=== PATIENT | female | born 1985 | race Caucasian/White ===

== ENCOUNTER 2023-01-13 10:00 | Outpatient (OUT) | payer MEDICAID, SELFPAY | END 2023-01-13 10:01 | disposition home or self-care (01) | LOC: PST 10:00 | DX: Z01.818 Encounter for other preprocedural examination (principal); R10.2 Pelvic and perineal pain; N93.9 Abnormal uterine and vaginal bleeding, unspecified; N83.9 Noninflammatory disorder of ovary, fallopian tube and broad ligament, unspecified ==

== ENCOUNTER → 2023-01-14 | Outpatient (OUT) | payer MEDICAID, SELFPAY ==
[2023-01-15 02:29] LABS: Progesterone 6.6 ng/mL (.)
== END ==
LOC: LAB 12:03
PROVIDERS: Visit Provider Obstetrics & Gynecology
DX: N92.1 Excessive and frequent menstruation with irregular cycle (principal)
CPT/HCPCS: 36415; 84144

== ENCOUNTER 2023-03-03 12:19 | Outpatient (OUT) | payer MEDICAID, SELFPAY | END 2023-03-03 12:20 | disposition home or self-care (01) | LOC: LAB 12:20 | PROVIDERS: Visit Provider Obstetrics & Gynecology | DX: N97.0 Female infertility associated with anovulation (principal); Z86.2 Personal history of diseases of the blood and blood-forming organs and certain disorders involving the immune mechanism | CPT/HCPCS: 36415; 82728 ==

== ENCOUNTER 2023-03-12 09:44 | Outpatient (OUT) | payer MEDICAID, SELFPAY | END 2023-03-12 09:45 | disposition home or self-care (01) | PROVIDERS: Visit Provider Obstetrics & Gynecology | DX: N92.1 Excessive and frequent menstruation with irregular cycle (principal) | CPT/HCPCS: 36415; 84144 ==

== ENCOUNTER 2023-03-15 10:49 | Outpatient (OUT) | payer MEDICAID, SELFPAY | END 2023-03-15 10:50 | disposition home or self-care (01) | LOC: PST 10:49 | PROVIDERS: Visit Provider Obstetrics & Gynecology | DX: Z01.818 Encounter for other preprocedural examination (principal); R10.2 Pelvic and perineal pain; N83.9 Noninflammatory disorder of ovary, fallopian tube and broad ligament, unspecified; N93.9 Abnormal uterine and vaginal bleeding, unspecified ==

== ENCOUNTER 2023-03-22 06:15 | Day surgery (SDC) | payer MEDICAID, SELFPAY ==
[2023-03-15 11:15] VITALS: BP 112/82; PULSE 70; RESP 18; TEMP 36.6; O2SAT 98; BMI 35.9
[2023-03-22] VITALS (13 sets, daily range): BP systolic 106–124; BP diastolic 70–86; PULSE 75–108; RESP 6–26; TEMP 36.1; O2SAT 83–97; BMI 35.3
[2023-03-22 06:23] LABS: Basophils Percent Auto 0.2 % (0.2-2.0); Eosinophils Absolute Auto 0.1 10^3/uL (0.0-0.7); Eosinophils Percent Auto 0.9 % (0.9-7.0); Hematocrit 39.3 % (36.0-48.0); Hemoglobin 12.9 g/dL (12.0-16.0); Immature Granulocytes Abs Auto 0.01 10^3/uL (0.00-0.03); Immature Granulocytes Pct Auto 0.2 % (0.0-0.5); Lymphocytes Absolute Auto 1.9 10^3/uL (1.2-3.8); Lymphocytes Percent Auto 32.7 % (20.5-60.0); Mean Corpuscular HGB Conc 32.8 g/dL (29.9-35.2); Mean Corpuscular Hemoglobin 29.7 pg (26.7-34.0); Mean Corpuscular Volume 90.6 fL (81.0-99.0); Mean Platelet Volume 10.1 fL (9.5-13.5); Monocytes Absolute Auto 0.4 10^3/uL (0.3-0.8); Monocytes Percent Auto 6.5 % (1.7-12.0); Neutrophils Absolute Auto 3.5 10^3/uL (1.4-6.5); Neutrophils Percent Auto 59.5 % (43.0-75.0); Platelet Count 206 10^3/uL (150-450); Red Blood Count 4.34 10^6/uL (4.20-5.40); Red Cell Distribution Width 13.1 % (11.0-15.0); White Blood Count 5.8 10^3/uL (4.0-11.0)
[2023-03-22 06:46] LABS: HCG Quantitative <1 mIU/mL
[2023-03-22] MEDS: LACTATED RINGER'S SOLUTION 1,000 ML 50 ML IV (06:56)
[2023-03-22] MEDS: METHYLENE BLUE 50 MG/10 ML AMPULE INJ (08:17)
--- NOTE | 2023-03-22 08:22 | PM.ONB ---
Brief Operative Note Date of procedure: 03/22/23 Pre-op diagnosis: pelvic pain, tubal dysfunction Post-op diagnosis: same as pre-op Procedure: NAME OF PROCEDURE: [diagnostic laparoscopy with chrompertubation ] PROCEDURE: The patient was taken back to the Operating Room where she was placed in dorsal lithotomy position after given general anesthesia. The patient was prepped and draped in normal sterile fashion. A humi manipulator was placed into the patients uterus. Attention was turned to the patient's abdomen, where a small umbilical incision was made. The fascia was tented using Breana clamps and the fascia was entered sharply. Confirmation of intraabdominal placement of the 10 mm port was confirmed under direct visualization using a laparoscope. The patient's abdomen was then insufflated using CO2 gas with approximately 4 liters. A second port was placed left laterally, this was done under direct visualization with a 5 mm port. Survey of the patient's abdomen demonstrated normal liver and gallbladder. Survey of the patient's pelvic anatomy demonstrated normal appearing ovaries and tubes as well as normal appearing uterus. No endometrial implants could be noted, no evidence of any pelvic disease was seen, normal appearing pelvic cavity. Chromopertubation was performed with spillage of dye from both tubes after debri was seen coming out of both ends. All instruments were removed from the patient's abdomen. Lt ovarian cystotomy performed using monopolar scissors. The patient's abdomen was deinsufflated of CO2 gas. The patient tolerated the procedure well. humi manipulator was removed from the patient's vagina. The patient's infraumbilical fascia was closed using #0 Vicryl on a GI needle. The patient's skin was closed laterally and infraumbilically using 4-0 Vicryl. The patient tolerated the procedure well. Sponge, lap and needle counts were correct x 2. The patient was taken to Recovery Room in stable condition.Clips from prior surgery noted adhered to bladder, the clips were grasped and gently removed Anesthesia: MIMA Surgeon: Kannan Vega [employer] Officer: Jannie Serra Estimated blood loss (mL): 5 Pathology: none sent Condition: stable Disposition: PACU
[2023-03-22] MEDS: HYDROCODONE/ACETAMINOPHEN 5-325 MG TABLET 1 TAB PO (08:44)
[2023-03-22] MEDS: HYDROMORPHONE HCL 1 MG/ML CARTRIDGE INJ (08:58)
[2023-03-22] MEDS: PROMETHAZINE HCL 25 MG TABLET PO (10:30)
== END 2023-03-22 10:47 | disposition home or self-care (01) ==
PROVIDERS: Visit Provider Obstetrics & Gynecology
PROC: (CPT 840; principal; 2023-03-22 07:30)
DX: R10.2 Pelvic and perineal pain (principal); N83.9 Noninflammatory disorder of ovary, fallopian tube and broad ligament, unspecified; N92.1 Excessive and frequent menstruation with irregular cycle; N93.9 Abnormal uterine and vaginal bleeding, unspecified; N94.6 Dysmenorrhea, unspecified; F32.A Depression, unspecified; F41.1 Generalized anxiety disorder; Z86.2 Personal history of diseases of the blood and blood-forming organs and certain disorders involving the immune mechanism; Z79.899 Other long term (current) drug therapy; Z79.82 Long term (current) use of aspirin
CPT/HCPCS: 49320; 58350; 36415; 84702; 85025; J1170; J2704

== ENCOUNTER 2023-05-03 11:57 | Outpatient (OUT) | payer MEDICAID, SELFPAY ==
[2023-05-04 09:10] LABS: Progesterone 12.5 ng/mL (.)
== END 2023-05-03 11:58 | disposition home or self-care (01) ==
LOC: LAB 11:58
PROVIDERS: Visit Provider Obstetrics & Gynecology
DX: N92.1 Excessive and frequent menstruation with irregular cycle (principal)
CPT/HCPCS: 36415; 84144

== ENCOUNTER 2023-05-31 16:27 | Outpatient (OUT) | payer MEDICAID, SELFPAY ==
[2023-06-02 10:11] LABS: Progesterone 13.6 ng/mL (.)
== END 2023-05-31 16:28 | disposition home or self-care (01) ==
LOC: LAB 16:27
PROVIDERS: Visit Provider Obstetrics & Gynecology
DX: N92.1 Excessive and frequent menstruation with irregular cycle (principal)
CPT/HCPCS: 36415; 84144

== ENCOUNTER 2023-07-03 10:09 | Outpatient (OUT) | payer MEDICAID, SELFPAY ==
[2023-07-04 07:07] LABS: Progesterone 3.1 ng/mL (.)
== END 2023-07-03 10:10 | disposition home or self-care (01) ==
LOC: LAB 10:12
PROVIDERS: Visit Provider Obstetrics & Gynecology
DX: N97.0 Female infertility associated with anovulation (principal); N92.1 Excessive and frequent menstruation with irregular cycle
CPT/HCPCS: 36415; 84144

== ENCOUNTER 2023-07-26 17:12 | Outpatient (OUT) | payer MEDICAID, SELFPAY | END 2023-07-26 17:13 | disposition home or self-care (01) | LOC: LAB 17:14 | PROVIDERS: PCP Family Medicine; Visit Provider Obstetrics & Gynecology | DX: N92.1 Excessive and frequent menstruation with irregular cycle (principal) | CPT/HCPCS: 36415; 84144 ==

== ENCOUNTER 2023-08-05 13:38 | Outpatient (RCR) | payer MEDICAID, SELFPAY ==
--- OUTSIDE RECORDS SUMMARY | 2023-08-05 13:44 | XMS_ITS | CCD ---
Author Name Unknown Address [address] [place] [address] Organization [facility] Care Team Providers [employer] Libr[employer] Name Role Phone Gloria Hayden Unavailable RAY ., DR KUMARI Admitting Unavailable HOY ., DR KUMARI Attending Unavailable HOY ., DR KUMARI Consulting Unavailable HOY ., DR KUMARI Primary Care Unavailable LAZARO ., DR TOUSSAINT Admitting Unavailable LAZARO ., DR TOUSSAINT Consulting Unavailable HOY ., DR KUMARI Primary Care Unavailable LAZARO ., DR TOUSSAINT Attending Unavailable LAZARO ., DR TOUSSAINT Admitting Unavailable HOY ., DR KUMARI Primary Care Unavailable LAZARO ., DR TOUSSAINT Attending Unavailable LAZARO ., DR TOUSSAINT Consulting Unavailable REQUEST, DR NONE LISTED Primary Care Unavaila ble LAZARO ., DR TOUSSAINT Attending Unavailable LAZARO ., DR TOUSSAINT Admitting Unavailable LAZARO ., DR TOUSSAINT Admitting Unavailable LAZARO ., DR TOUSSAINT Consulting Unavailable HOY ., DR KUMARI Primary Care Unavailable LAZARO ., DR TOUSSAINT Attending Unavailable HOY ., DR KUMARI Primary Care Unavailable PAY ., DR JIMENEZ Attending Unavailable PAY ., DR JIMENEZ Admitting Unavailable PAY ., DR JIMENEZ Consulting Unavailable LAZARO ., DR TOUSSAINT Attending Unavailable HOY ., DR KUMARI Primary Care Unavailable LAZARO ., DR TOUSSAINT Admitting Unavailable LAZARO ., DR TOUSSAINT Consulting Unavailable LAZARO ., DR TOUSSAINT Attending Unavailable HOY ., DR KUMARI Primary Care Unavailable LAZARO ., DR TOUSSAINT Admitting Unavailable LAZARO ., DR TOUSSAINT Consulting Unavailable REQUEST, DR NONE LISTED Primary Care Unavaila ble LAZARO ., DR TOUSSAINT Attending Unavailable LAZARO ., DR TOUSSAINT Admitting Unavailable RENE MEYERS Consulting Unavailable HOY ., DR KUMARI Admitting Unavailable HOY ., DR KUMARI Attending Unavailable HOY ., DR KUMARI Primary Care Unavailable LAZARO ., DR TOUSSAINT Consulting Unavailable REQUEST, DR NONE LISTED Primary Care Unavaila ble LAZARO ., DR TOUSSAINT Attending Unavailable LAZARO ., DR TOUSSAINT Admitting Unavailable LAZARO ., DR TOUSSAINT Consulting Unavailable REQUEST, DR NONE LISTED Primary Care Unavaila ble LAZARO ., DR TOUSSAINT Attending Unavailable LAZARO ., DR TOUSSAINT Admitting Unavailable LAZARO ., DR TOUSSAINT Consulting Unavailable HOY ., DR KUMARI Primary Care Unavailable LAZARO ., DR TOUSSAINT Admitting Unavailable LAZARO ., DR TOUSSAINT Attending Unavailable LAZARO ., DR TOUSSAINT Admitting Unavailable LAZARO ., DR TOUSSAINT Consulting Unavailable HOY ., DR KUMARI Primary Care Unavailable LAZARO ., DR TOUSSAINT Attending Unavailable LAZARO ., DR TOUSSAINT Attending Unavailable HOY ., DR KUMARI Primary Care Unavailable LAZARO ., DR TOUSSAINT Admitting Unavailable LAZARO ., DR TOUSSAINT Admitting Unavailable HOY ., DR KUMARI Primary Care Unavailable [place], DR PEREZ Luther Consulting Unavailable LAZARO ., DR TOUSSAINT Attending Unavailable LAZARO ., DR TOUSSAINT Consulting Unavailable HOY ., DR KUMARI Primary Care Unavailable [place], DR PEREZ Luther Consulting Unavailable LAZARO ., DR TOUSSAINT Admitting Unavailable LAZARO ., DR TOUSSAINT Attending Unavailable LAZARO ., DR TOUSSAINT Consulting Unavailable LAZARO ., DR TOUSSAINT Admitting Unavailable HOY ., DR KUMARI Primary Care Unavailable [place], DR PEREZ Luther Consulting Unavailable LAZARO ., DR TOUSSAINT Attending Unavailable LAZARO ., DR TOUSSAINT Consulting Unavailable MONIQUE COLEMAN Consulting Unavaila ble SURESH, MONIQUE ONEILL Consulting Unava CLARA Linton Consulting Unavailable LAZARO ., DR TOUSSAINT Admitting Unavailable LAZARO ., DR TOUSSAINT Consulting Unavailable HOY ., DR KUMARI Primary Care Unavailable LAZARO ., DR TOUSSAINT Attending Unavailable LAZARO ., DR TOUSSAINT Consulting Unavailable HOY ., DR KUMARI Primary Care Unavailable LAZARO ., DR TOUSSAINT Attending Unavailable LAZARO ., DR TOUSSAINT Admitting Unavailable NORBERT VEGA Attending Unavailable Allergies Allergy Classification Reported Allergen(s) Allergy Type Date of Onset Reaction(s) Facility (1 source) Penicillin G Drug Allergy throat swelling [facility]map Other (1 source) Cefaclor Drug Allergy [facility] (2 sources) Penicillins Drug allergy (disorder) 6 [facility] Medications Current Medications Medication Drug Class(es) Dates Sig (Normalized) Sig (Original) aspirin 81 mg delayed release oral tablet (1 source) Platelet Aggregation Inhibitor, Nonsteroidal Anti-inflammatory Drug take 1 tablet by mouth every twenty-four hours Aspirin 81 81 MG 1 tablet Orally Once a day Active cholecalciferol 0.05 mg oral tablet (1 source) Vitamin D take 1 tablet by mouth every twenty-four hours Vitamin D3 50 MCG (1999) 1 tablet Orally Once a day Active DHEA 50 MG (1 source) DHEA 50 MG take 2 Orally daily Active folic acid 0.4 mg oral tablet (1 source) take 1 tablet by mouth every twenty-four hours Folate 400 MCG 1 tablet Orally Once a day Active Iron (1 source) take 1 tablet by mouth once daily Iron (Ferrous Sulfate) 325 MG 1 tablet Orally Once a day Active metFORMIN hydrochloride 500 mg oral tablet (1 source) Biguanide take 1 tablet by mouth every twenty-four hours metFORMIN HCl 500 MG 1 tablet with a meal Orally Once a day Active Multivitamin preparation (1 source) take 1 tablet by mouth once daily Multivitamin - 1 tablet Orally Once a day Active predniSONE 20 mg oral tablet (1 source) Start: 11-20-2022 take 1 tablet by mouth every twelve hours predniSONE 20 MG 1 tablet Orally bid for 5 day(s) Nov, Active (1 source) Active simvastatin 40 mg oral tablet (1 source) HMG-CoA Reductase Inhibitor take 1 tablet by mouth every twenty-four hours Simvastatin 40 MG 1 tablet in the evening Orally Once a day Active Vitamin C 500 MG (1 source) Vitamin C 500 MG as directed Orally Active Problems Active Problems Problem Classification Problem Date Documented Da te Episodic/Chronic Allergic reactions (1 source) Unspecified contact dermatitis, unspecified cause Episodic Menstrual disorders (8 sources) Excessive and frequent menstruation with irregular cycle; Translations: [Irregular menstruation, unspecified] Onset: 06-22-2022 Chronic Mood disorders (1 source) Major depressive disorder, single episode, unspecified; Translations: [CONCEPCION DEPRESS D/O SINGLE EPIS UNS] Onset: 05-26-2022 Chronic Other female genital disorders (4 sources) Abnormal uterine and vaginal bleeding, unspecified; Translations: [ABNORMAL UTERINE VAGINAL BLEED UNS] Onset: 02-18-2022 Chronic Other screening for suspected conditions (not mental disorders or infectious disease) (1 source) Abnormal findings on diagnostic imaging of other specified body structures; Translations: [ABNORML FIND DX IMG OT BODY STRUC] Onset: 11-22-2022 Chronic Ovarian cyst (2 sources) Unspecified ovarian cyst, left side; Translations: [Other ovarian cyst, left side] Onset: 02-19-2022 Episodic Unclassified (1 source) CONTACT W/AND (SUSP) EXPOS COVID-19; Translations: [CONTACT W/AND (SUSP) EXPOS COVID-19] Onset: 05-11-2022 Past or Other Problems Problem Classification Problem Date Documented Da te Episodic/Chronic Abdominal pain (4 sources) Unspecified abdominal pain; Translations: [UNSPECIFIED ABDOMINAL PAIN] Onset: 05-04-2022 Episodic Contraceptive and procreative management (4 sources) Encounter for procreative management, unspecified; Translations: [ENC PROCREATIVE MANAGEMENT UNS] Onset: 08-28-2022 Episodic Deficiency and other anemia (4 sources) Anemia, unspecified; Translations: [ANEMIA UNSPECIFIED] Onset: 08-12-2022 Episodic Diabetes mellitus without complication (1 source) Other abnormal glucose; Translations: [OTHER ABNORMAL GLUCOSE] Onset: 08-16-2022 Episodic Other complications of (5 sources) Blighted ovum and nonhydatidiform mole; Translations: [BLIGHTED OVUM NONHYDATIDIFORM MOLE] Onset: 05-08-2022 Episodic Other complications of (1 source) Other specified related conditions, first trimester; Translations: [OTH SPEC PREG RELATED COND 1ST TRI] Onset: 05-05-2022 Episodic Other female genital disorders (1 source) Noninflammatory disorder of uterus, unspecified; Translations: [NONINFLAMMATORY DISORDER UTERUS UNS] Onset: 05-26-2022 Episodic Other gastrointestinal disorders (1 source) Constipation, unspecified; Translations: [CONSTIPATION UNSPECIFIED] Onset: 05-05-2022 Episodic Residual codes; unclassified (4 sources) Other specified postprocedural states; Translations: [OTH SPECIFIED POSTPROCEDURAL STATES] Onset: 05-14-2022 Episodic Residual codes; unclassified (1 source) 8 weeks gestation of ; Translations: [8 WEEKS GESTATION OF ] Onset: 05-05-2022 Episodic Spontaneous (1 source) Incomplete spontaneous without complication; Translations: [INCOMPL SPONT AB W/O COMPLICATION] Onset: 05-26-2022 Episodic Results Test Name Value Interpretation Reference Range Facility PROGESTERONEon 12-19-2022 Progesterone 9.6 ng/mL Normal [facility] Comment on above: Result Comment: Foll icular phase 0.1 - 0.9 Luteal phase 1.8 - 23.9 Ovulation phase 0.1 - 12.0 First trimester 11.0 - 44.3 Second trimester 25.4 - 83.3 Third trimester 58.7 - 214.0 Postmenopausal 0.0 - 0.1 Performed By: #### P DAXA #### [facility] [address] [place] [address] Dr. Josie Sanchez PROGESTERONEon 11-19-2022 Progesterone 6.3 ng/mL Normal [facility] Comment on above: Result Comment: Foll icular phase 0.1 - 0.9 Luteal phase 1.8 - 23.9 Ovulation phase 0.1 - 12.0 First trimester 11.0 - 44.3 Second trimester 25.4 - 83.3 Third trimester 58.7 - 214.0 Postmenopausal 0.0 - 0.1 Performed By: #### P DAXA #### [facility] [address] [place] [address] Dr. Josie Sanchez PREG QUANT HCGon 11-18-2022 HCG QUANT <1 Normal [facility] Comment on above: Performed By: #### P REGQNT #### [facility] [address] [place] [address] Dr. Josie Sanchez HCG RANGE SEE BELOW Normal [facility] Comment on above: Result Comment: 5-50 0.2-1 WEEK 50-500 1-2 WEEKS 100-5,000 2-3 WEEKS 500-10,000 3-4 WEEKS 1,000-50,000 4-5 WEEKS 10,000-100,000 5-6 WEEKS 15,000-200,000 6-8 WEEKS 10,000-100,000 2-3 MONTHS Performed By: #### P REGQNT #### [facility] [address] [place], [place] [id number] Dr. Josie Sanchez US PELVIS AND TRANSVAGon US PELVIS AND TRANSVAG EXAM: US PELVIS A ND TRANSVAG HISTORY: Excessive menstruation with irregular cycle COMPARISON: None. TECHNIQUE: Pelvic ultrasound is performed. Multiple grayscale and color images are submitted for review. FINDINGS: The uterus measures 10.9 x 6.2 x 2.9 cm and demonstrates normal echotexture. The endometrium appears thickened, and measures 14 mm thickness. The right ovary measures 1.7 x 1.9 x 2.2 cm and demonstrates normal morphology. Normal blood flow is seen in the right ovary. The left ovary measures 3.8 x 2.4 x 2.4 cm and demonstrates normal blood flow. An approximately 2.3 x 2.6 x 2.3 cm hypoechoic area is seen in the left ovary with internal anechoic/cystic component with sonographic imaging characteristics similar to that of a yolk sac as noted by lead medical technologist. No significant free pelvic fluid is seen. IMPRESSION: Hypoechoic structure with internal anechoic structure is seen in the left ovary, as well as thickened endometrium. Ectopic cannot be excluded. Clinical, laboratory and possible follow-up sonographic correlation is recommended. This report was placed in the stat call folder for immediate notification of the referring clinician. Electronically authenticated by: RENE MEYERS Date: 2022-11-16 18:09 Normal [facility] DHEA SERUMon 11-11-2022 Dehydroepiandrosterone (DHEA) 335 ng/dL Normal 31-701 [facility] Comment on above: Performed By: #### RILEY VALERIO #### [facility] [address] [place] [id number] [address] Josie Sanchez DHEA-SULFATEon 11-10-2022 DHEA-Sulfate 251.0 ug/dL Normal 57.3-279.2 [facility] Comment on above: Performed By: #### P REGQNT #### [facility] [address] [place], [place] [id number] Dr. Josie Sanchez ESTRADIOLon 11-10-2022 Estradiol 66.1 pg/mL Normal [facility] Comment on above: Result Comment: Adul t Female: Follicular phase 12.5 - 166.0 Ovulation phase 85.8 - 498.0 Luteal phase 43.8 - 211.0 Postmenopausal <6.0 - 54.7 1st trimester 215.0 - >4300.0 [facility] ECLIA methodology Performed By: #### RILEY VALERIO #### [facility] [address] [place] [address] Dr. Josie Sanchez FSHon 11-10-2022 FSH 6.9 mIU/mL Normal [facility] Comment on above: Result Comment: Adul t Female: Follicular phase 3.5 - 12.5 Ovulation phase 4.7 - 21.5 Luteal phase 1.7 - 7.7 Postmenopausal 25.8 - 134.8 Performed By: #### P REGQNT #### [facility] [address] [place] [address] Dr. Josie Sanchez LUTEINIZING HORMONE (LH)on 0 11-10-2022 LH 9.9 mIU/mL Normal [facility] Comment on above: Result Comment: Adul t Female: Follicular phase 2.4 - 12.6 Ovulation phase 14.0 - 95.6 Luteal phase 1.0 - 11.4 Postmenopausal 7.7 - 58.5 Performed By: #### RILEY VALERIO #### [facility] [address] [place] [address] Dr. Josie Sanchez CBC AUTO DIFFon 11-09-2022 BASO # 0.0 103/ul Normal 0.0-0.1 [facility] Comment on above: Performed By: #### KIAN VALERIORO #### [facility] [address] [place] [address] Dr. Josie Sanchez Basophils/100 WBC (Bld) 0.3 % Normal 0.2-2.0 [facility] Comment on above: Performed By: #### ROBERT VALERIOICRO #### [facility] [address] [place] [address] Dr. Josie Sanchez EO # 0.0 103/ul Normal 0.0-0.7 [facility] Comment on above: Performed By: #### RILEY VALERIO #### [facility] [address] [place] [address] Dr. Josie Sanchez Eosinophils/100 WBC (Bld) 0.5 % Critically low 0.9-7. 0 [facility] Comment on above: Performed By: #### RILEY VALERIO #### [facility] [address] [place] [address] Dr. Josie Sanchez Erythrocyte distribution width (RBC) [Ratio] 13.2 % Normal 11.0-15.0 [facility] Comment on above: Performed By: #### RILEY VALERIO #### [facility] [address] [place] [address] Dr. Josie Sanchez Hematocrit (Bld) [Volume fraction] 41.8 % Normal 36.0-48.0 [facility] Comment on above: Performed By: #### RILEY VALERIO #### [facility] [address] [place] [address] Dr. Josie Sanchez Hemoglobin (Bld) [Mass/Vol] 13.7 g/dL Normal 12.0-16.0 [facility] Comment on above: Performed By: #### RILEY VALERIO #### [facility] [address] [place] [address] Dr. Josie Sanchez IG # 0.02 10e3/ul Normal 0.00-0.03 [facility] Comment on above: Performed By: #### RILEY VALERIO #### [facility] [address] [place] [address] Dr. Josie Sanchez IG % 0.3 % Normal 0.0-0.5 [facility] Comment on above: Performed By: #### RILYE VALERIO #### [facility] [address] [place] [address] Dr. Josie Sanchez LYMPH # 1.2 103/ul Normal 1.2-3.8 [facility] Comment on above: Performed By: #### RILEY VALERIO #### [facility] [address] [place] [address] Dr. Josie Sanchez Lymphocytes/100 WBC (Bld) 18.4 % Critically low 20.5-6 0.0 [facility] Comment on above: Performed By: #### E MIGUELANGEL, UMICRO #### [facility] [address] [place] [address] Dr. Josie Sanchez MANUAL DIFF REQ NO Normal [facility] Comment on above: Performed By: #### E MIGUELANGEL, UMICRO #### [facility] [address] [place] [address] Dr. Josie Sanchez MCH (RBC) [Entitic mass] 29.5 pg Normal 26.7-34.0 [facility] Comment on above: Performed By: #### E MIGUELANGEL, UMICRO #### [facility] [address] [place] [address] Dr. Josie Sanchez MCHC (RBC) [Mass/Vol] 32.8 g/dL Normal 29.9-35.2 [facility] Comment on above: Performed By: #### Clyde MEANS, UMICRO #### [facility] [address] [place] [address] Dr. Josie Sanchez MCV (RBC) [Entitic vol] 89.9 fL Normal 81.0-99.0 [facility] Comment on above: Performed By: #### Clyde MEANS, UMICRO #### [facility] [address] [place] [address] Dr. Josie Sanchez MONO # 0.3 103/ul Normal 0.3-0.8 [facility] Comment on above: Performed By: #### E MIGUELANGEL, UMICRO #### [facility] [address] [place] [address] Dr. Josie Sanchez Monocytes/100 WBC (Bld) 5.1 % Normal 1.7-12.0 [facility] Comment on above: Performed By: #### E MIGUELANGEL, UMICRO #### [facility] [address] [place] [address] Dr. Josie Sanchez NEUT # 4.8 103/ul Normal 1.4-6.5 [facility] Comment on above: Performed By: #### RILEY VALERIO #### [facility] [address] [place] [address] Dr. Josie Sanchez Neutrophils/100 WBC (Bld) 75.4 % Critically high 43.0- 75.0 [facility] Comment on above: Performed By: #### RILEY VALERIO #### [facility] [address] [place] [address] Dr. Josie Sanchez Platelet mean volume (Bld) [Entitic vol] 9.8 fL Normal 9.5-13.5 [facility] Comment on above: Performed By: #### RILEY VALERIO #### [facility] [address] [place] [address] Dr. Josie Sanchez PLT 256 103/ul Normal 150-450 [facility] Comment on above: Performed By: #### RILEY VALERIO #### [facility] [address] [place] [address] Dr. Josie Sanchez RBC 4.65 106/ul Normal 4.20-5.40 [facility] Comment on above: Performed By: #### RILEY VALERIO #### [facility] [address] [place] [address] Dr. Josie Sanchez WBC 6.4 103/ul Normal 4.0-11.0 [facility] Comment on above: Performed By: #### RILEY VALERIO #### [facility] [address] [place] [address] Dr. Josie Sanchez FERRITINon 11-09-2022 Ferritin [Mass/Vol] 42.0 ng/mL Normal 6.2-137.0 [facility] Comment on above: Performed By: #### RILEY VALERIO #### [facility] [address] [place] [address] Dr. Josie Sanchez FREE T4on 11-09-2022 Free T4 [Mass/Vol] 0.87 ng/dL Normal 0.76-1.46 [facility] Comment on above: Performed By: #### RILEY VALERIO #### [facility] [address] [place] [address] Dr. Josie Sanchez GLYCOHEMOGLOBIN A1Con 2022 ADA RECOMMENDATION SEE BELOW Normal [facility] Comment on above: Result Comment: ADA RECOMMENDED LIMIT 4.0 - 6.0 ADA THERAPEUTIC TARGET < 7.0 ACTION SUGGESTED > 7.0 Performed By: #### RILEY VALERIO #### [facility] [address] [place] [address] Dr. Josie Sanchez Glucose [Mass/Vol] 100 mg/dL Normal [facility] Comment on above: Performed By: #### RILEY VALERIO #### [facility] [address] [place] [address] Dr. Josie Sanchez HbA1c (Bld) [Mass fraction] 5.1 % Normal 4.5-6.2 [facility] Comment on above: Performed By: #### RILEY VALERIO #### [facility] [address] [place] [address] Dr. Josie Sanchez PREG QUANT HCGon 11-09-2022 HCG QUANT <1 Normal [facility] Comment on above: Performed By: #### RILEY VALERIO #### [facility] [address] [place] [address] Dr. Josie Sanchez HCG RANGE SEE BELOW Normal [facility] Comment on above: Result Comment: 5-50 0.2-1 WEEK 50-500 1-2 WEEKS 100-5,000 2-3 WEEKS 500-10,000 3-4 WEEKS 1,000-50,000 4-5 WEEKS 10,000-100,000 5-6 WEEKS 15,000-200,000 6-8 WEEKS 10,000-100,000 2-3 MONTHS Performed By: #### RILEY VALERIO #### [facility] [address] [place] [address] Dr. Josie Sanchez TSHon 11-09-2022 TSH 2.163 uIU/mL Normal 0.358-3.740 [facility] Comment on above: Performed By: #### RILEY VALERIO #### [facility] [address] [place] [address] Dr. Josie Sanchez PROGESTERONEon 08-29-2022 Progesterone 7.3 ng/mL Normal [facility] Comment on above: Result Comment: Foll icular phase 0.1 - 0.9 Luteal phase 1.8 - 23.9 Ovulation phase 0.1 - 12.0 First trimester 11.0 - 44.3 Second trimester 25.4 - 83.3 Third trimester 58.7 - 214.0 Postmenopausal 0.0 - 0.1 Performed By: #### P ROGES #### [facility] [address] [place] [address] Dr. Josie Sanchez INSULINon 08-13-2022 Insulin 12.5 uIU/mL Normal 2.6-24.9 [facility] Comment on above: Performed By: #### P REGQNT #### [facility] [address] [place] [address] Dr. Josie Sanchez CBC AUTO DIFFon 08-12-2022 BASO # 0.0 103/ul Normal 0.0-0.1 [facility] Comment on above: Performed By: #### KIAN VALERIORO #### [facility] [address] [place] [address] Dr. Josie Sanchez Basophils/100 WBC (Bld) 0.2 % Normal 0.2-2.0 [facility] Comment on above: Performed By: #### ROBERT VALERIOICRO #### [facility] [address] [place] [address] Dr. Josie Sanchez EO # 0.1 103/ul Normal 0.0-0.7 [facility] Comment on above: Performed By: #### ROBERT VALERIOICRO #### [facility] [address] [place] [address] Dr. Josie Sanchez Eosinophils/100 WBC (Bld) 0.8 % Critically low 0.9-7. 0 [facility] Comment on above: Performed By: #### ROBERT VALERIOICRO #### [facility] [address] [place] [address] Dr. Josie Sanchez Erythrocyte distribution width (RBC) [Ratio] 14.0 % Normal 11.0-15.0 [facility] Comment on above: Performed By: #### RILEY VALERIO #### [facility] [address] [place] [address] Dr. Josie Sanchez Hematocrit (Bld) [Volume fraction] 39.5 % Normal 36.0-48.0 [facility] Comment on above: Performed By: #### KIAN VALERIORO #### [facility] [address] [place] [address] Dr. Josie Sanchez Hemoglobin (Bld) [Mass/Vol] 12.7 g/dL Normal 12.0-16.0 [facility] Comment on above: Performed By: #### RILEY VALERIO #### [facility] [address] [place] [address] Dr. Josie Sanchez IG # 0.02 10e3/ul Normal 0.00-0.03 [facility] Comment on above: Performed By: #### RILEY VALERIO #### [facility] [address] [place] [address] Dr. Josie Sanchez IG % 0.3 % Normal 0.0-0.5 [facility] Comment on above: Performed By: #### RILEY VALERIO #### [facility] [address] [place] [address] Dr. Josie Sanchez LYMPH # 1.6 103/ul Normal 1.2-3.8 [facility] Comment on above: Performed By: #### KIAN VALERIORO #### [facility] [address] [place] [address] Dr. Josie Sanchez Lymphocytes/100 WBC (Bld) 26.9 % Normal 20.5-60.0 [facility] Comment on above: Performed By: #### KIAN VALERIORO #### [facility] [address] [place] [address] Dr. Josie Sanchez MANUAL DIFF REQ NO Normal [facility] Comment on above: Performed By: #### KIAN VALERIORO #### [facility] [address] [place] [address] Dr. Josie Sanchez MCH (RBC) [Entitic mass] 28.3 pg Normal 26.7-34.0 [facility] Comment on above: Performed By: #### E MIGUELANGEL UMICRO #### [facility] [address] [place] [address] Dr. Josie Sanchez MCHC (RBC) [Mass/Vol] 32.2 g/dL Normal 29.9-35.2 [facility] Comment on above: Performed By: #### E MIGUELANGEL, UMICRO #### [facility] [address] [place] [address] Dr. Josie Sanchez MCV (RBC) [Entitic vol] 88.0 fL Normal 81.0-99.0 [facility] Comment on above: Performed By: #### Clyde MEANS UMICRO #### [facility] [address] [place] [address] Dr. Josie Sanchez MONO # 0.4 103/ul Normal 0.3-0.8 [facility] Comment on above: Performed By: #### Clyde MEANS ICRO #### [facility] [address] [place] [address] Dr. Josie Sanchez Monocytes/100 WBC (Bld) 7.1 % Normal 1.7-12.0 [facility] Comment on above: Performed By: #### Clyde MEANS, UMICRO #### [facility] [address] [place] [address] Dr. Josie Sanchez NEUT # 3.8 103/ul Normal 1.4-6.5 [facility] Comment on above: Performed By: #### Clyde MEANS, UMICRO #### [facility] [address] [place] [address] Dr. Josie Sanchez Neutrophils/100 WBC (Bld) 64.7 % Normal 43.0-75.0 [facility] Comment on above: Performed By: #### E MIGUELANGEL, UMICRO #### [facility] [address] [place] [address] Dr. Josie Sanchez Platelet mean volume (Bld) [Entitic vol] 10.1 fL Normal 9.5-13.5 [facility] Comment on above: Performed By: #### RILEY VALERIO #### [facility] [address] [place] [address] Dr. Josie Sanchez PLT 211 103/ul Normal 150-450 [facility] Comment on above: Performed By: #### RILEY VALERIO #### [facility] [address] [place] [address] Dr. Josie Sanchez RBC 4.49 106/ul Normal 4.20-5.40 [facility] Comment on above: Performed By: #### RILEY VALERIO #### [facility] [address] [place] [address] Dr. Josie Sanchez WBC 5.9 103/ul Normal 4.0-11.0 [facility] Comment on above: Performed By: #### RILEY VALERIO #### [facility] [address] [place] [address] Dr. Josie Sanchez FREE THYROXINE INDEX T7on FTI 2.63 Normal 1.30-4.50 [facility] Comment on above: Performed By: #### RILEY VALERIO #### [facility] [address] [place] [address] Dr. Josie Sanchez T3U 35.0 % Normal 30.0-39.0 [facility] Comment on above: Performed By: #### RILEY VALERIO #### [facility] [address] [place] [address] Dr. Josie Sanchez T4 [Mass/Vol] 7.50 ug/dL Normal 4.80-13.90 [facility] Comment on above: Performed By: #### RILEY VALERIO #### [facility] [address] [place] [address] Dr. Josie Sanchez GLYCOHEMOGLOBIN A1Con 2022 ADA RECOMMENDATION SEE BELOW Normal [facility] Comment on above: Result Comment: ADA RECOMMENDED LIMIT 4.0 - 6.0 ADA THERAPEUTIC TARGET < 7.0 ACTION SUGGESTED > 7.0 Performed By: #### RILEY VALERIO #### [facility] [address] [place] [address] Dr. Josie Sanchez Glucose [Mass/Vol] 111 mg/dL Normal [facility] Comment on above: Performed By: #### RILEY VALERIO #### [facility] [address] [place] [address] Dr. Josie Sanchez HbA1c (Bld) [Mass fraction] 5.5 % Normal 4.5-6.2 [facility] Comment on above: Performed By: #### RILEY VALERIO #### [facility] [address] [place] [address] Dr. Josie Sanchez IRONon 08-12-2022 Iron [Mass/Vol] 40.0 ug/dL Critically low 50.0-170.0 [facility] Comment on above: Performed By: #### P REGQNT #### [facility] [address] [place] [address] Dr. Josie Sanchez LIPID PROFILEon 08-12-2022 CHOL-HDL RATIO NORM SEE BELOW Normal [facility] Comment on above: Result Comment: 3.3 - 4.4 LOW RISK 4.4 - 7.1 AVERAGE RISK 7.1 - 11.0 MODERATE RISK >11.0 HIGH RISK Performed By: #### P REGQNT #### [facility] [address] [place] [address] Dr. Josie Sanchez Cholesterol [Mass/Vol] 183 mg/dL Normal <=200 [facility] Comment on above: Performed By: #### P REGQNT #### [facility] [address] [place] [address] Dr. Josie Sanchez Cholesterol in HDL [Mass/Vol] 40 mg/dL Normal 40-60 [facility] Comment on above: Performed By: #### P REGQNT #### [facility] [address] [place] [address] Dr. Josie Sanchez Cholesterol in LDL [Mass/Vol] 131.0 mg/dL Normal [facility] Comment on above: Performed By: #### P REGQNT #### [facility] [address] [address] [address] Josie Sanchez Cholesterol.total/Choleste rol in HDL [Mass ratio] 4.6 {ratio} Normal [facility] Comment on above: Performed By: #### P REGQNT #### [facility] [address] [address] [address] Josie Sanchez HDL NORMAL > or = 60 mg/dl - LOW CARDIOVASCULAR RISK <40 mg/dl - HIGH CARDIOVASCULAR RISK Normal [facility] Comment on above: Performed By: #### P REGQNT #### [facility] [address] [place] [address] Dr. Josie Sanchez LDL CALC NORMAL SEE BELOW Normal [facility] Comment on above: Result Comment: <100 mg/dl OPTIMAL 100 - 129 mg/dl NEAR OR ABOVE OPTIMAL 130 - 159 mg/dl BORDERLINE HIGH 160 - 189 mg/dl HIGH >190 mg/dl VERY HIGH Performed By: #### P REGQNT #### [facility] [address] [address] [address] Josie Sanchez Triglyceride [Mass/Vol] 60 mg/dL Normal <=150 [facility] Comment on above: Performed By: #### P REGQNT #### [facility] [address] [place] [address] Dr. Josie Sanchez VLDL CALC 12.0 mg/dL Normal [facility] Comment on above: Performed By: #### P REGQNT #### [facility] [address] [place] [address] Dr. Josie Sanchez PROF 14(COMP METB)on 023 Albumin [Mass/Vol] 3.7 g/dL Normal 3.4-5.0 [facility] Comment on above: Performed By: #### RILEY VALERIO #### [facility] [address] [place] [address] Dr. Josie Sanchez Albumin/Globulin [Mass ratio] 0.9 {ratio} Normal [facility] Comment on above: Performed By: #### RILEY VALERIO #### [facility] [address] [place] [address] Dr. Josie Sanchez ALP [Catalytic activity/Vol] 131 U/L Critically high 46-116 [facility] Comment on above: Performed By: #### RILEY VALERIO #### [facility] [address] [place] [address] Dr. Josie Sanchez ALT [Catalytic activity/Vol] 23 U/L Normal 14-59 [facility] Comment on above: Performed By: #### RILEY VALERIO #### [facility] [address] [place] [address] Dr. Josie Sanchez Anion gap [Moles/Vol] 10.5 mmol/L Normal [facility] Comment on above: Performed By: #### RILEY VALERIO #### [facility] [address] [place] [address] Dr. Josie Sanchez AST [Catalytic activity/Vol] 18 U/L Normal 15-37 [facility] Comment on above: Performed By: #### RILEY VALERIO #### [facility] [address] [place] [address] Dr. Josie Sanchez Bilirubin [Mass/Vol] 0.7 mg/dL Normal 0.2-1.0 [facility] Comment on above: Performed By: #### RILEY VALERIO #### [facility] [address] [place] [address] Dr. Josie Sanchez Calcium [Mass/Vol] 8.7 mg/dL Normal 8.5-10.1 [facility] Comment on above: Performed By: #### RILEY VALERIO #### [facility] [address] [place] [address] Dr. Josie Sanchez Chloride [Moles/Vol] 103 mmol/L Normal 98-107 [facility] Comment on above: Performed By: #### RILEY VALERIO #### [facility] [address] [place] [address] Dr. Josie Sanchez CO2 [Moles/Vol] 30.1 mmol/L Normal 21.0-32.0 [facility] Comment on above: Performed By: #### E RUR, UMICRO #### [facility] [address] [address] [address] Josie Sanchez Creatinine [Mass/Vol] 0.66 mg/dL Normal 0.55-1.02 [facility] Comment on above: Performed By: #### E RUR, UMICRO #### [facility] [address] [place] [address] Dr. Josie Sanchez EGFR-AF SWISS >60 Normal >=60 [facility] Comment on above: Performed By: #### E YOSELINR, UMICRO #### [facility] [address] [place] [address] Dr. Jsoie Sanchez EGFR-NON AF SWISS >60 Normal >=60 [facility] Comment on above: Performed By: #### E YOSELINR, UMICRO #### [facility] [address] [place] [address] Dr. Josie Sanchez Globulin (S) [Mass/Vol] 4.3 g/dL Normal [facility] Comment on above: Performed By: #### Clyde MEANS, UMICRO #### [facility] [address] [place] [address] Dr. Josie Sanchez Glucose [Mass/Vol] 90 mg/dL Normal 74-106 [facility] Comment on above: Performed By: #### E YOSELINR, UMICRO #### [facility] [address] [place] [address] Dr. Josie Sanchez Potassium [Moles/Vol] 3.6 mmol/L Normal 3.5-5.1 [facility] Comment on above: Performed By: #### E YOSELINR, UMICRO #### [facility] [address] [place] [address] Dr. Josie Sanchez Protein [Mass/Vol] 8.0 g/dL Normal 6.4-8.2 [facility] Comment on above: Performed By: #### E RUR, UMICRO #### [facility] [address] [place] [address] Dr. Josie Sanchez Sodium [Moles/Vol] 140 mmol/L Normal 136-145 [facility] Comment on above: Performed By: #### RILEY VALERIO #### [facility] [address] [place] [address] Dr. Josie Sanchez Urea nitrogen [Mass/Vol] 12.0 mg/dL Normal 7.0-18.0 [facility] Comment on above: Performed By: #### RILEY VALERIO #### [facility] [address] [place] [address] Dr. Josie Sanchez Urea nitrogen/Creatinine [Mass ratio] 18.2 mg/mg Normal [facility] Comment on above: Performed By: #### RILEY VALERIO #### [facility] [address] [place] [address] Dr. Josie Sanchez TSHon 08-12-2022 TSH 3.070 uIU/mL Normal 0.358-3.740 [facility] Comment on above: Performed By: #### P REGQNT #### [facility] [address] [place] [address] Dr. Josie Sanchez PREG QUANT HCGon 06-22-2022 HCG QUANT 1 mIU/mL Normal [facility] Comment on above: Performed By: #### RILEY VALERIO #### [facility] [address] [place] [address] Dr. Josie Sanchez HCG RANGE SEE BELOW Normal [facility] Comment on above: Result Comment: 5-50 0.2-1 WEEK 50-500 1-2 WEEKS 100-5,000 2-3 WEEKS 500-10,000 3-4 WEEKS 1,000-50,000 4-5 WEEKS 10,000-100,000 5-6 WEEKS 15,000-200,000 6-8 WEEKS 10,000-100,000 2-3 MONTHS Performed By: #### RILEY VALERIO #### [facility] [address] [place] [address] Dr. Josie Sanchez PREG QUANT HCGon 05-20-2022 HCG QUANT 6 mIU/mL Normal [facility] Comment on above: Performed By: #### P REGQNT #### [facility] [address] [place] [address] Dr. Josie Sanchez HCG RANGE SEE BELOW Normal [facility] Comment on above: Result Comment: 5-50 0.2-1 WEEK 50-500 1-2 WEEKS 100-5,000 2-3 WEEKS 500-10,000 3-4 WEEKS 1,000-50,000 4-5 WEEKS 10,000-100,000 5-6 WEEKS 15,000-200,000 6-8 WEEKS 10,000-100,000 2-3 MONTHS Performed By: #### P REGQNT #### [facility] [address] [place] [address] Dr. Josie Sanchez PREG QUANT HCGon 05-14-2022 HCG QUANT 26 mIU/mL Normal [facility] Comment on above: Performed By: #### P REGQNT #### [facility] [address] [place] [address] Dr. Josie Sanchez HCG RANGE SEE BELOW Normal [facility] Comment on above: Result Comment: 5-50 0.2-1 WEEK 50-500 1-2 WEEKS 100-5,000 2-3 WEEKS 500-10,000 3-4 WEEKS 1,000-50,000 4-5 WEEKS 10,000-100,000 5-6 WEEKS 15,000-200,000 6-8 WEEKS 10,000-100,000 2-3 MONTHS Performed By: #### P REGQNT #### [facility] [address] [place] [address] Dr. Josie Sanchez CBC AUTO DIFFon 05-08-2022 BASO # 0.0 103/ul Normal 0.0-0.1 [facility] Comment on above: Performed By: #### RILEY VALERIO #### [facility] [address] [place] [address] Dr. Josie Sanchez Basophils/100 WBC (Bld) 0.2 % Normal 0.2-2.0 [facility] Comment on above: Performed By: #### KIAN VALERIORO #### [facility] [address] [place] [address] Dr. Josie Sanchez EO # 0.0 103/ul Normal 0.0-0.7 [facility] Comment on above: Performed By: #### RILEY VALERIO #### [facility] [address] [place] [address] Dr. Josie Sanchez Eosinophils/100 WBC (Bld) 0.5 % Critically low 0.9-7. 0 [facility] Comment on above: Performed By: #### RILEY VALERIO #### [facility] [address] [place] [address] Dr. Josie Sanchez Erythrocyte distribution width (RBC) [Ratio] 12.8 % Normal 11.0-15.0 [facility] Comment on above: Performed By: #### RILEY VALERIO #### [facility] [address] [place] [address] Dr. Josie Sanchez Hematocrit (Bld) [Volume fraction] 41.0 % Normal 36.0-48.0 [facility] Comment on above: Performed By: #### RILEY VALERIO #### [facility] [address] [place] [address] Dr. Josie Sanchez Hemoglobin (Bld) [Mass/Vol] 13.4 g/dL Normal 12.0-16.0 [facility] Comment on above: Performed By: #### RILEY VALERIO #### [facility] [address] [place] [address] Dr. Josie Sanchez IG # 0.02 10e3/ul Normal 0.00-0.03 [facility] Comment on above: Performed By: #### RILEY VALERIO #### [facility] [address] [place] [address] Dr. Josie Sanchez IG % 0.3 % Normal 0.0-0.5 [facility] Comment on above: Performed By: #### RILEY VALERIO #### [facility] [address] [place] [address] Dr. Josie Sanchez LYMPH # 1.6 103/ul Normal 1.2-3.8 [facility] Comment on above: Performed By: #### RILEY VALERIO #### [facility] [address] [place] [address] Dr. Josie Sanchez Lymphocytes/100 WBC (Bld) 27.1 % Normal 20.5-60.0 [facility] Comment on above: Performed By: #### KIAN VALERIORO #### [facility] [address] [place] [address] Dr. Josie Sanchez MANUAL DIFF REQ NO Normal [facility] Comment on above: Performed By: #### ROBERT VALERIOICRO #### [facility] [address] [place] [address] Dr. Josie Sanchez MCH (RBC) [Entitic mass] 29.3 pg Normal 26.7-34.0 [facility] Comment on above: Performed By: #### ROBERT VALERIOICRO #### [facility] [address] [place] [address] Dr. Josie Sanchez MCHC (RBC) [Mass/Vol] 32.7 g/dL Normal 29.9-35.2 [facility] Comment on above: Performed By: #### ROBERT VALERIOICRO #### [facility] [address] [place] [address] Dr. Josie Sanchez MCV (RBC) [Entitic vol] 89.5 fL Normal 81.0-99.0 [facility] Comment on above: Performed By: #### Clyde MEANS UMICRO #### [facility] [address] [place] [address] Dr. Josie Sanchez MONO # 0.5 103/ul Normal 0.3-0.8 [facility] Comment on above: Performed By: #### Clyde MEANS UMICRO #### [facility] [address] [place] [address] Dr. Josie Sanchez Monocytes/100 WBC (Bld) 8.6 % Normal 1.7-12.0 [facility] Comment on above: Performed By: #### Clyde MEANS UMICRO #### [facility] [address] [place] [address] Dr. Josie Sanchez NEUT # 3.7 103/ul Normal 1.4-6.5 [facility] Comment on above: Performed By: #### ROBERT VALERIOICRO #### [facility] [address] [place] [address] Dr. Josie Sanchez Neutrophils/100 WBC (Bld) 63.3 % Normal 43.0-75.0 [facility] Comment on above: Performed By: #### Clyde MEANS UMICRO #### [facility] [address] [place] [address] Dr. Josie Sanchez Platelet mean volume (Bld) [Entitic vol] 9.8 fL Normal 9.5-13.5 [facility] Comment on above: Performed By: #### ROBERT VALERIOICRO #### [facility] [address] [place] [address] Dr. Josie Sanchez PLT 238 103/ul Normal 150-450 [facility] Comment on above: Performed By: #### ROBERT VALERIOICRO #### [facility] [address] [place] [address] Dr. Josie Sanchez RBC 4.58 106/ul Normal 4.20-5.40 [facility] Comment on above: Performed By: #### ROBERT VALERIOICRO #### [facility] [address] [place] [address] Dr. Josie Sanchez WBC 5.8 103/ul Normal 4.0-11.0 [facility] Comment on above: Performed By: #### Clyde MEANS ICRO #### [facility] [address] [place] [address] Dr. Josie Sanchez PREG QUANT HCGon 05-08-2022 HCG QUANT 2335 mIU/mL Normal [facility] Comment on above: Performed By: #### P REGQNT #### [facility] [address] [place] [address] Dr. Josie Sanchez HCG RANGE SEE BELOW Normal [facility] Comment on above: Result Comment: 5-50 0.2-1 WEEK 50-500 1-2 WEEKS 100-5,000 2-3 WEEKS 500-10,000 3-4 WEEKS 1,000-50,000 4-5 WEEKS 10,000-100,000 5-6 WEEKS 15,000-200,000 6-8 WEEKS 10,000-100,000 2-3 MONTHS Performed By: #### P REGQNT #### [facility] [address] [place] [address] Dr. Josie Sanchez CBC AUTO DIFFon 05-07-2022 BASO # 0.0 103/ul Normal 0.0-0.1 [facility] Comment on above: Performed By: #### KIAN VALERIORO #### [facility] [address] [place] [address] Dr. Josie Sanchez Basophils/100 WBC (Bld) 0.2 % Normal 0.2-2.0 [facility] Comment on above: Performed By: #### KIAN VALERIORO #### [facility] [address] [place] [address] Dr. Josie Sanchez EO # 0.0 103/ul Normal 0.0-0.7 [facility] Comment on above: Performed By: #### KIAN VALERIORO #### [facility] [address] [place] [address] Dr. Josie Sanchez Eosinophils/100 WBC (Bld) 0.3 % Critically low 0.9-7. 0 [facility] Comment on above: Performed By: #### ROBERT VALERIOICRO #### [facility] [address] [place] [address] Dr. Josie Sanchez Erythrocyte distribution width (RBC) [Ratio] 12.8 % Normal 11.0-15.0 [facility] Comment on above: Performed By: #### Clyde MEANS UMICRO #### [facility] [address] [place] [address] Dr. Josie Sanchez Hematocrit (Bld) [Volume fraction] 41.2 % Normal 36.0-48.0 [facility] Comment on above: Performed By: #### Clyde MEANS UMICRO #### [facility] [address] [place] [address] Dr. Josie Sanchez Hemoglobin (Bld) [Mass/Vol] 13.3 g/dL Normal 12.0-16.0 [facility] Comment on above: Performed By: #### Clyde MEANS UMICRO #### [facility] [address] [place] [address] Dr. Josie Sanchez IG # 0.02 10e3/ul Normal 0.00-0.03 [facility] Comment on above: Performed By: #### E MIGUELANGEL UMICRO #### [facility] [address] [place] [address] Dr. Josie Sanchez IG % 0.3 % Normal 0.0-0.5 [facility] Comment on above: Performed By: #### Clyde MEANS UMICRO #### [facility] [address] [place] [address] Dr. Josie Sanchez LYMPH # 1.0 103/ul Critically low 1.2-3.8 [facility] Comment on above: Performed By: #### Clyde MEANS UMICRO #### [facility] [address] [place] [address] Dr. Josie Sanchez Lymphocytes/100 WBC (Bld) 15.5 % Critically low 20.5-6 0.0 [facility] Comment on above: Performed By: #### Clyde MEANS UMICRO #### [facility] [address] [place] [address] Dr. Josie Sanchez MANUAL DIFF REQ NO Normal [facility] Comment on above: Performed By: #### Clyde MEANS UMICRO #### [facility] [address] [place] [address] Dr. Josie Sanchez MCH (RBC) [Entitic mass] 28.9 pg Normal 26.7-34.0 [facility] Comment on above: Performed By: #### Clyde MEANS UMICRO #### [facility] [address] [place] [address] Dr. Josie Sanchez MCHC (RBC) [Mass/Vol] 32.3 g/dL Normal 29.9-35.2 [facility] Comment on above: Performed By: #### Clyde MEANS UMICRO #### [facility] [address] [place] [address] Dr. Josie Sanchez MCV (RBC) [Entitic vol] 89.6 fL Normal 81.0-99.0 [facility] Comment on above: Performed By: #### KIAN VALERIORO #### [facility] [address] [place] [address] Dr. Josie Sanchez MONO # 0.4 103/ul Normal 0.3-0.8 [facility] Comment on above: Performed By: #### KIAN VALERIORO #### [facility] [address] [place] [address] Dr. Josie Sanchez Monocytes/100 WBC (Bld) 6.2 % Normal 1.7-12.0 [facility] Comment on above: Performed By: #### KIAN VALERIORO #### [facility] [address] [place] [address] Dr. Josie Sanchez NEUT # 5.0 103/ul Normal 1.4-6.5 [facility] Comment on above: Performed By: #### KIAN VALERIORO #### [facility] [address] [place] [address] Dr. Josie Sanchez Neutrophils/100 WBC (Bld) 77.5 % Critically high 43.0- 75.0 [facility] Comment on above: Performed By: #### ROBERT VALERIOICRO #### [facility] [address] [place] [address] Dr. Josie Sanchez Platelet mean volume (Bld) [Entitic vol] 10.2 fL Normal 9.5-13.5 [facility] Comment on above: Performed By: #### KIAN VALERIORO #### [facility] [address] [place] [address] Dr. Josie Sanchez PLT 237 103/ul Normal 150-450 [facility] Comment on above: Performed By: #### ROBERT VALERIOICRO #### [facility] [address] [place] [address] Dr. Josie Sanchez RBC 4.60 106/ul Normal 4.20-5.40 [facility] Comment on above: Performed By: #### RILEY VALERIO #### [facility] [address] [place] [address] Dr. Josie Sanchez WBC 6.5 103/ul Normal 4.0-11.0 [facility] Comment on above: Performed By: #### RILEY VALERIO #### [facility] [address] [place] [address] Dr. Josie Sanchez Covid-19 PCR ([facility])on 04-10 SARS-CoV-2 (COVID-19) RNA ALEXA+probe Ql (Unsp spec) Not detected Normal NOT DETECTED [facility] Comment on above: Result Comment: This test is not yet approved or cleared by the [place] FDA. When there are no FDA-approved or cleared tests available, and other criteria are met, FDA can make tests available under an emergency access mechanism called an Emergency Use Authorization (EUA). The EUA for this test is supported by the [place] of Health and Human Service's (HHS's) declaration that circumstances exist to justify the emergency use of in vitro diagnostics for the detection and/or diagnosis of the virus that causes COVID-19. This EUA will remain in effect (meaning this test can be used) for the duration of the COVID-19 declaration justifying emergency of IVDs, unless it is terminated or revoked by FDA (after which the test may no longer be used). When diagnostic testing is negative, the possibility of a false negative should be considered in the context of a patient's recent exposures and the presence of clinical signs and symptoms consistent with SARS-CoV-2. Performed By: #### RILEY VALERIO #### [facility] [address] [place] [address] Dr. Josie Sanchez PREG QUANT HCGon 05-07-2022 HCG QUANT 2745 mIU/mL Normal [facility] Comment on above: Performed By: #### RILEY VALERIO #### [facility] [address] [place] [address] Dr. Josie Sanchez HCG RANGE SEE BELOW Normal [facility] Comment on above: Result Comment: 5-50 0.2-1 WEEK 50-500 1-2 WEEKS 100-5,000 2-3 WEEKS 500-10,000 3-4 WEEKS 1,000-50,000 4-5 WEEKS 10,000-100,000 5-6 WEEKS 15,000-200,000 6-8 WEEKS 10,000-100,000 2-3 MONTHS Performed By: #### RILEY VALERIO #### [facility] [address] [place] [address] Dr. Josie Sanchez US PREG TVon 05-05-2022 US PREG TV EXAMINATION: US PREG TV HISTORY: Missed period COMPARISON: 02/18/2022 FINDINGS: Transvaginal images No intrauterine or ectopic is observed. Identified within the endometrial cavity is a focal 3.3 x 4.6 x 4.3 cm heterogeneous hyperechogenic mass. Immediately adjacent in the lower uterine segment is an area of anechoic echogenicity measuring 2.3 x 2.3 x 1.2 cm possibly fluid No definite vascularity is observed in the central hyperechogenic mass, however the scale of the ultrasound machine is high, and this could be related to technical factors The cervix measures 3.8 cm, closed The ovaries are not visualized. These findings were relayed by the technologist to the ordering physician at the time of exam IMPRESSION: Hyperechogenic 4.6 cm endometrial mass. In light of the elevated beta hCG, consideration should be given to a molar . The differential diagnosis would include hemorrhage Electronically authenticated by: PEREZ DURBIN Date: 2022-05-05 14:42 Normal [facility] ER URINE PROFILEon 2 Bilirubin Ql (U) Negative Normal NEGATIVE [facility] Comment on above: Performed By: #### RILEY VALERIO #### [facility] [address] [place] [address] Dr. Josie Sanchez Clarity (U) CLEAR Normal CLEAR [facility] Comment on above: Performed By: #### RILEY VALERIO #### [facility] [address] [place] [address] Dr. Josie Sanchez Color (U) YELLOW Normal YELLOW [facility] Comment on above: Performed By: #### RILEY VALERIO #### [facility] [address] [place] [address] Dr. Josie Sanchez ERUAHD A micrscopic examination will be performed if indicated. Normal [facility] Comment on above: Performed By: #### Clyde MEANS UMICRO #### [facility] [address] [place] [address] Dr. Josie Sanchez Glucose Ql (U) Negative Normal NEGATIVE [facility] Comment on above: Performed By: #### Clyde MEANS UMICRO #### [facility] [address] [place] [address] Dr. Josie Sanchez Hemoglobin Ql (U) SMALL Abnormal NEGATIVE [facility] Comment on above: Performed By: #### Clyde MEANS UMICRO #### [facility] [address] [place] [address] Dr. Josie Sanchez Ketones Ql (U) 15 mg/dl Abnormal NEGATIVE [facility] Comment on above: Performed By: #### Clyde MEANS UMICRO #### [facility] [address] [place] [address] Dr. Josie Sanchez LEUKOCYTES Negative Normal NEGATIVE [facility] Comment on above: Performed By: #### Clyde MEANS UMICRO #### [facility] [address] [place] [address] Dr. Josie Sanchez Nitrite Ql (U) Negative Normal NEGATIVE [facility] Comment on above: Performed By: #### Clyde MEANS UMICRO #### [facility] [address] [place] [address] Dr. Josie Sanchez pH (U) 6.0 [pH] Normal 5-9 [facility] Comment on above: Performed By: #### Clyde MEANS UMICRO #### [facility] [address] [place] [address] Dr. Joise Sanchez SPEC GRAVITY 1.020 Normal 1.005-<=1.025 [facility] Comment on above: Performed By: #### Clyde MEANS UMICRO #### [facility] [address] [place] [address] Dr. Josie Sanchez UA PROTEIN Negative Normal NEGATIVE/ TRACE [facility] Comment on above: Performed By: #### Clyde MEANS UMICRO #### [facility] [address] [place] [address] Dr. Josie Sanchez UR MICRO IND INDICATED Normal [facility] Comment on above: Performed By: #### ROBERT VALERIOICRO #### [facility] [address] [place] [address] Dr. Josie Sanchez Urobilinogen Qn (U) 0.2 {Fabricio'U}/dL Normal 0.2 - 1. 0 [facility] Comment on above: Performed By: #### Clyde MEANS UMICRO #### [facility] [address] [place] [address] Dr. Josie Sanchez URINE MICROSCOPIC ONLYon BACTERIA NONE SEEN Normal NONE SEEN [facility] Comment on above: Performed By: #### Clyde MEANS UMICRO #### [facility] [address] [place] [address] Dr. Josie Sanchez Bacteria identified Cx Nom (U) NOT INDICATED Normal [facility] Comment on above: Performed By: #### Clyde MEANS UMICRO #### [facility] [address] [place] [address] Dr. Josie Sanchez CAST NONE SEEN Normal NONE SEEN [facility] Comment on above: Performed By: #### ROBERT VALERIOICRO #### [facility] [address] [place] [address] Dr. Josie Sanchez Crystals LM Nom (Urine sed) NONE SEEN Normal NONE SEEN [facility] Comment on above: Performed By: #### ROBERT VALERIOICRO #### [facility] [address] [place] [address] Dr. Josie Sanchez Epithelial cells LM Ql (Urine sed) NONE SEEN Normal NONE SEEN /RARE [facility] Comment on above: Performed By: #### ROBERT VALERIOICRO #### [facility] [address] [place] [address] Dr. Josie Sanchez MUCOUS MODERATE Abnormal NONE SEEN [facility] Comment on above: Performed By: #### ROBERT VALERIOICRO #### [facility] [address] [place] [address] Dr. Josie Sanchez RBC 0-2 Normal 0-2 [facility] Comment on above: Performed By: #### Clyde MEANS UMICRO #### [facility] [address] [place] [address] Dr. Josie Sanchez WBC NONE SEEN Normal NONE SEEN [facility] Comment on above: Performed By: #### Clyde MEANS UMICRO #### [facility] [address] [place] [address] Dr. Josie Sanchez PREG QUANT HCGon 04-20-2022 HCG QUANT 41052 mIU/mL Normal [facility] Comment on above: Performed By: #### Clyde MEANS UMICRO #### [facility] [address] [place] [address] Dr. Josie Sanchez HCG RANGE SEE BELOW Normal [facility] Comment on above: Result Comment: 5-50 0.2-1 WEEK 50-500 1-2 WEEKS 100-5,000 2-3 WEEKS 500-10,000 3-4 WEEKS 1,000-50,000 4-5 WEEKS 10,000-100,000 5-6 WEEKS 15,000-200,000 6-8 WEEKS 10,000-100,000 2-3 MONTHS Performed By: #### Clyde MEANS UMGEORGIARO #### [facility] [address] [place] [address] Dr. Josie Sanchez HCG-BETA SUBUNIT QUANTon hCG,Beta Subunit,Qnt,Serum <1 Normal [facility] Comment on above: Result Comment: Fema le (Non-) 0 - 5 (Postmenopausal) 0 - 8 . Female () Weeks of Gestation 3 6 - 71 4 10 - 750 5 369 - 6538 6 158 - 69382 7 1161 -[phone] 8 [phone] -[phone] 9 21062 -[phone] 10 02848 -641941 12 58398 -[phone] 14 09692 - 39609 15 37314 - 25393 16 9350 - 54430 17 8361 - 20542 18 1347 - 18409 [place]ina ECLIA methodology Performed By: #### Clyde MEANS UMICRO #### [facility] [address] [place] [address] Dr. Josie Sanchez CBC AUTO DIFFon 02-18-2022 BASO # 0.0 103/ul Normal 0.0-0.1 [facility] Comment on above: Performed By: #### C BC #### [facility] [address] [place] [address] Dr. Josie Sanchez Basophils/100 WBC (Bld) 0.2 % Normal 0.2-2.0 [facility] Comment on above: Performed By: #### C BC #### [facility] [address] [place] [address] Dr. Josie Sanchez EO # 0.1 103/ul Normal 0.0-0.7 [facility] Comment on above: Performed By: #### C BC #### [facility] [address] [place] [address] Dr. Josie Sanchez Eosinophils/100 WBC (Bld) 0.8 % Critically low 0.9-7. 0 [facility] Comment on above: Performed By: #### C BC #### [facility] [address] [place] [address] Dr. Josie Sanchez Erythrocyte distribution width (RBC) [Ratio] 12.5 % Normal 11.0-15.0 [facility] Comment on above: Performed By: #### C BC #### [facility] [address] [place] [address] Dr. Josie Sanchez Hematocrit (Bld) [Volume fraction] 39.5 % Normal 36.0-48.0 [facility] Comment on above: Performed By: #### C BC #### [facility] [address] [place] [address] Dr. Josie Sanchez Hemoglobin (Bld) [Mass/Vol] 13.0 g/dL Normal 12.0-16.0 [facility] Comment on above: Performed By: #### C BC #### [facility] [address] [place] [address] Dr. Josie Sanchez IG # 0.02 10e3/ul Normal 0.00-0.03 [facility] Comment on above: Performed By: #### C BC #### [facility] [address] [place] [address] Dr. Josie Sanchez IG % 0.3 % Normal 0.0-0.5 [facility] Comment on above: Performed By: #### C BC #### [facility] [address] [place] [address] Dr. Josie Sanchez LYMPH # 1.5 103/ul Normal 1.2-3.8 [facility] Comment on above: Performed By: #### C BC #### [facility] [address] [place] [address] Dr. Josie Sanchez Lymphocytes/100 WBC (Bld) 22.9 % Normal 20.5-60.0 [facility] Comment on above: Performed By: #### C BC #### [facility] [address] [place] [address] Dr. Josie Sanchez MANUAL DIFF REQ NO Normal [facility] Comment on above: Performed By: #### C BC #### [facility] [address] [place] [address] Dr. Josie Sanchez MCH (RBC) [Entitic mass] 30.3 pg Normal 26.7-34.0 [facility] Comment on above: Performed By: #### C BC #### [facility] [address] [place] [address] Dr. Josie Sanchez MCHC (RBC) [Mass/Vol] 32.9 g/dL Normal 29.9-35.2 [facility] Comment on above: Performed By: #### C BC #### [facility] [address] [place] [address] Dr. Josie Sanchez MCV (RBC) [Entitic vol] 92.1 fL Normal 81.0-99.0 [facility] Comment on above: Performed By: #### C BC #### [facility] [address] [place] [address] Dr. Josie Sanchez MONO # 0.4 103/ul Normal 0.3-0.8 [facility] Comment on above: Performed By: #### C BC #### [facility] [address] [place] [address] Dr. Josie Sanchez Monocytes/100 WBC (Bld) 5.7 % Normal 1.7-12.0 [facility] Comment on above: Performed By: #### C BC #### [facility] [address] [place] [address] Dr. Josie Sanchez NEUT # 4.6 103/ul Normal 1.4-6.5 [facility] Comment on above: Performed By: #### C BC #### [facility] [address] [place] [address] Dr. Josie Sanchez Neutrophils/100 WBC (Bld) 70.1 % Normal 43.0-75.0 [facility] Comment on above: Performed By: #### C BC #### [facility] [address] [place] [address] Dr. Josie Sanchez Platelet mean volume (Bld) [Entitic vol] 10.0 fL Normal 9.5-13.5 [facility] Comment on above: Performed By: #### C BC #### [facility] [address] [place] [address] Dr. Josie Sanchez PLT 242 103/ul Normal 150-450 [facility] Comment on above: Performed By: #### C BC #### [facility] [address] [place] [address] Dr. Josie Sanchez RBC 4.29 106/ul Normal 4.20-5.40 [facility] Comment on above: Performed By: #### C BC #### [facility] [address] [place] [address] Dr. Josie Sanchez WBC 6.5 103/ul Normal 4.0-11.0 [facility] Comment on above: Performed By: #### C BC #### [facility] [address] [place] [address] Dr. Josie Sanchez LIPID PROFILEon 02-18-2022 CHOL-HDL RATIO NORM SEE BELOW Normal [facility] Comment on above: Result Comment: 3.3 - 4.4 LOW RISK 4.4 - 7.1 AVERAGE RISK 7.1 - 11.0 MODERATE RISK >11.0 HIGH RISK Performed By: #### L IPID, TSH #### [facility] [address] [address] [address] Josie Sanchez Cholesterol [Mass/Vol] 182 mg/dL Normal <=200 [facility] Comment on above: Performed By: #### L IPID, TSH #### [facility] [address] [address] [address] Josie Sanchez Cholesterol in HDL [Mass/Vol] 40 mg/dL Normal 40-60 [facility] Comment on above: Performed By: #### L IPID, TSH #### [facility] [address] [address] [address] Josie Sanchez Cholesterol in LDL [Mass/Vol] 122.4 mg/dL Normal [facility] Comment on above: Performed By: #### L IPID, TSH #### [facility] [address] [address] [address] Josie Sanchez Cholesterol.total/Choleste rol in HDL [Mass ratio] 4.6 {ratio} Normal [facility] Comment on above: Performed By: #### L IPID, TSH #### [facility] [address] [address] [address] Josie Sanchez HDL NORMAL > or = 60 mg/dl - LOW CARDIOVASCULAR RISK <40 mg/dl - HIGH CARDIOVASCULAR RISK Normal [facility] Comment on above: Performed By: #### L IPID, TSH #### [facility] [address] [address] [address] Josie Sanchez LDL CALC NORMAL SEE BELOW Normal [facility] Comment on above: Result Comment: <100 mg/dl OPTIMAL 100 - 129 mg/dl NEAR OR ABOVE OPTIMAL 130 - 159 mg/dl BORDERLINE HIGH 160 - 189 mg/dl HIGH >190 mg/dl VERY HIGH Performed By: #### L IPID, TSH #### [facility] [address] [address] [address] Josie Sanchez Triglyceride [Mass/Vol] 98 mg/dL Normal <=150 T [facility] Comment on above: Performed By: #### L IPID, TSH #### [facility] [address] [address] [address] Josie Sanchez VLDL CALC 19.6 mg/dL Normal [facility] Comment on above: Performed By: #### L IPID, TSH #### [facility] [address] [address] [address] Josie Sanchez PROTIMEon 02-18-2022 INR Coag (PPP) [Relative time] 1.10 {INR} Normal [facility] Comment on above: Performed By: #### P REGQNT #### [facility] [address] [place] [address] Dr. Josie Sanchez INR GUIDELINES SEE BELOW Normal [facility] Comment on above: Result Comment: PAULINA RED INR: 2.0 - 3.0 CONDITIONS NOT LISTED BELOW 2.5 - 3.5 FOR PROSTHETIC HEART VALVE REPLACEMENT 2.5 - 3.5 RECURRENT THROMBOSIS Performed By: #### P REGQNT #### [facility] [address] [place] [address] Dr. Josie Sanchez PT Coag (PPP) [Time] 11.8 s Critically high 9.0-11.6 [facility] Comment on above: Performed By: #### P REGQNT #### [facility] [address] [place] [address] Dr. Josie Sanchez PTTon 02-18-2022 aPTT Coag (Bld) [Time] 29.8 s Normal 22.3-36.2 [facility] Comment on above: Performed By: #### P REGQNT #### [facility] [address] [place] [address] Dr. Josie Sanchez TSHon 02-18-2022 TSH 3.410 uIU/mL Normal 0.358-3.740 [facility] Comment on above: Performed By: #### L IPID, TSH #### [facility] [address] [place] [address] Dr. Josie Sanchez US PELVIS AND TRANSVAGon US PELVIS AND TRANSVAG EXAMINATION: US PELVIS AND TRANSVAG HISTORY: Abnormal uterine bleeding unrelated to menstrual cycle COMPARISON: No relevant comparison available. FINDINGS: Transabdominal and transvaginal images The uterus is normal in size, contour and echotexture measuring 9.9 x 5.0 x 4.4 cm, anteverted. The endometrium measures 9.5 mm, normal The right ovary is normal in appearance measuring 3.0 x 1.9 x 1.6 cm. Normal color and Doppler flow. The left ovary measures 3.0 x 2.7 x 2.5 cm. Area of anechoic echogenicity measuring 1 6 x 1.4 x 1.3 cm, simple cyst. Normal color and Doppler flow IMPRESSION: 1.6 cm left ovarian simple cyst Electronically authenticated by: PEREZ DURBIN Date: 2022-02-18 18:56 Normal [facility] Nursing Note - Woundon 08-15 Nursing Note - Wound [id number] 242#3.00CD:127 Normal [facility] Coding Summary.on 08-08-2020 Coding Summary. 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 However, the narrative phrase printed from the coding software may appear abbreviated, or result in slightly different terminology. Coded By: Jeannie Nur Date Saved: 08/08/2020 10:31 am [facility] Formson 08-08-2020 Forms [id number] 59#1.00CD:127 Normal [facility] Home Health Recordson 2019 Home Health Records [id number] FD#1.00CD:127 [facility] Ambulatory Clinical Summaryo n 07-26-2020 Ambulatory Clinical Summary {[id number]}CD:[id number] 8 [facility] Record[facility] 2019 Home Health Records [id number] C7#1.00CD:127 [facility] Progress Note - Woundon 07-09 Progress Note - Wound [id number] 499#2.00CD:127 [facility] Consent for Treatmenton 07-09 Consent for Treatment [id number] AA#1.00CD:127 [facility] Multi-Wound Charton 07-25-20 20 Multi-Wound Chart [id number] 158#1.00CD:127 [facility] Nursing Assessment - Woundon 07-25-2020 Nursing Assessment - Wound [id number] 897#1.00CD:127 [facility] Physician Orderon 07-25-2020 Physician Order [id number] 685#1.00CD:127 [facility] Record[facility] 2019 Home Health Records [id number] 41#1.00CD:127 [facility] Record[facility] 2019 Home Health Records [id number] 54#1.00CD:127 [facility] Coding Summary.on 07-12-2020 Coding Summary. 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 However, the narrative phrase printed from the coding software may appear abbreviated, or result in slightly different terminology. Coded By: Aicha Bledsoe CphT Date Saved: 07/12/2020 03:05 pm [facility] Coding Summary. 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 However, the narrative phrase printed from the coding software may appear abbreviated, or result in slightly different terminology. Coded By: Aicha Bledsoe CphT Date Saved: 07/12/2020 03:03 pm [facility] Multi-Wound Charton 07-12-20 20 Multi-Wound Chart [id number] 370#1.00CD:127 [facility] Nursing Assessment - Woundon 07-12-2020 Nursing Assessment - Wound [id number] 955#1.00CD:127 [facility] Nursing Note - Woundon 07-12 Nursing Note - Wound [id number] 616#1.00CD:127 [facility] Consent for Procedure/Surger yon 07-11-2020 Consent for Procedure/Surgery [id number] 413#1.00CD:127 [facility] Consent for Treatmenton Consent for Treatment [id number] 0 [id number] 6A#1.00CD:127 [facility] Home Health Recordson 2019 Home Health Records [id number] A1#1.00CD:127 [facility] Home Health Records [id number]. [id number] A4#1.00CD:127 [facility] Physician Orderon 07-11-2020 Physician Order [id number] 863#1.00CD:127 [facility] Progress Note - Woundon Progress Note - Wound [id number] 0 [id number] 191#1.00CD:127 [facility] Nursing Note - Woundon 07-02 Nursing Note - Wound [id number] 261#3.00CD:127 [facility] Consent for Procedure/Surger yon 06-28-2020 Consent for Procedure/Surgery [id number] 00#1.00CD:127 [facility] Consent to Photographon 06-10 Consent to Photograph [id number] 1 [id number] 26#1.00CD:127 [facility] HIPAA Privacy Documentson HIPAA Privacy Documents [id number]. 011 [id number] 58#1.00CD:127 [facility] Nursing Note - Woundon 06-28 Nursing Note - Wound [id number] 89#1.00CD:127 [facility] Nursing Note - Wound [id number] 17#1.00CD:127 [facility] Consent for Treatmenton 06-09 Consent for Treatment [id number] 0 [id number] DA#1.00CD:127 [facility] Multi-Wound Charton 06-27-20 20 Multi-Wound Chart [id number] 373#1.00CD:127 [facility] Nursing Assessment - Woundon 06-27-2020 Nursing Assessment - Wound 170.71.121.11 [id number] 329#1.00CD:127 [facility] Physician Orderon 06-27-2020 Physician Order [id number] 834#2.00CD:127 [facility] Progress Note - Woundon 06-09 Progress Note - Wound [id number] 0 [id number] 362#1.00CD:127 [facility] HIPAA Privacy Documentson HIPAA Privacy Documents [id number] 020 [id number] 0235#1.00CD:127 [facility] Outside Records Officeon Outside Records Office [id number] 20 [id number] 0704#1.00CD:127 [facility] Vital Signs Date Time Vital Sign Value Performing Clinician Facility 11-20-2022 15:05-0400 Body height 152.4 cm Gloria Hayden [facility] 11-20-2022 15:05-0400 Body mass index (BMI) [Ratio] 11.72 kg/m2 Gloria Hayden [facility] 11-20-2022 15:05-0400 Body temperature 97.7 [degF] Gloria Hayden [facility] Other 11-20-2022 15:05-0400 Body weight 27.22 kg Gloria Hayden [facility] Other 11-20-2022 15:05-0400 Respiratory rate 18 /min Gloria Hayden [facility] Other 11-20-2022 15:05-0400 SaO2% (BldA) [Mass fraction] 97 % Gloria Hayden [facility] Other Encounters Encounter Date Encounter Type Care Provider Facility Start: 07-07-2023 End: 07-07-2023 ambulatory NORBERT VEGA Not Available Start: 12-21-2022 End: 12-21-[address] NORBERT VEGA . Facility:[facility] Start: 12-18-2022 End: 12-19-[address] NORBERT VEGA . Facility:[facility] Start: 11-20-2022 End: 11-20-2022 ambulatory Gloria Hayden [facility] Start: 11-20-2022 Office outpatient vi sit 15 minutes Gloria Hayden [facility] Start: 11-18-2022 End: 11-19-[address] NORBERT VEGA . Facility:[facility] Start: 11-16-2022 End: 11-17-[address] NORBERT VEGA . Facility:[facility] Start: 11-09-2022 End: 11-10-[address] NORBERT VEGA . Facility:[facility] Start: 08-28-2022 End: 08-29-[address] NORBERT VEGA . Facility:[facility] Start: 08-12-2022 End: 08-13-[address] QUOC BELL . Facility:[facility] Start: 06-22-2022 End: 06-23-[address] NORBERT VEGA . Facility:[facility] Start: 05-14-2022 End: 06-08-[address] NORBERT VEGA . Facility:[facility] Start: 05-11-2022 Encounter for preprocedural laboratory examination DR NORBERT VEGA . [facility] Start: 05-08-2022 End: 05-08-[address] NORBERT VEGA . Facility:[facility] Start: 05-07-2022 End: 05-08-[address] NORBERT VEGA . Facility:[facility] Start: 05-07-2022 End: 05-08-2022 Encounter for preprocedural laboratory examination DR NORBERT VEGA . Facility:[facility] Start: 05-05-2022 End: 05-06-[address] NORBERT VEGA . Facility:[facility] Start: 05-04-2022 End: 05-04-[address] QUOC BELL . Facility:[facility] Start: 04-20-2022 End: 04-21-[address] NORBERT VEGA . Facility:[facility] Start: 03-27-[address] NORBERT VEGA . Facili ty:[facility] Start: 03-23-[address] NORBERT VEGA . Facili ty:[facility] Start: 03-12-2022 End: 03-13-[address] NORBERT VEGA . Facility:[facility] Start: 02-18-2022 End: 02-19-[address] QUOC BELL . Facility:[facility] Payers Date Payer Category Payer Medicaid [id number] . [id number] 1985 Unknown [id number] 2.16.84 0.1.214869.3.579.2.59 1985 Unknown [id number] 2.16.84 0.1.923229.3.579.2.59 1985 Unknown [id number] 2.16.84 0.1.210823.3.579.2.59 1985 Unknown [id number] 2.16.84 0.1.131432.3.579.2.593 1985 Unknown [id number] 2.16.84 0.1.358988.3.579.2.59 1985 Unknown [id number] 2.16.84 0.1.942758.3.579.2.593 1985 Unknown [id number] 2.16.84 0.1.768695.3.579.2.59 1985 Unknown [id number] 2.16.84 0.1.740479.3.579.2.593 1985 Unknown [id number] 2.16.84 0.1.335777.3.579.2.593 1985 Unknown [id number] 2.16.84 0.1.165854.3.579.2.593 1985 Unknown [id number] 2.16.84 0.1.437478.3.579.2.593 1985 Unknown [id number] 2.16.84 0.1.552705.3.579.2.593 1985 Unknown [id number] 2.16.84 0.1.204884.3.579.2.593 1985 Unknown [id number] 2.16.84 0.1.055956.3.579.2.593 1985 Unknown [id number] 2.16.84 0.1.753695.3.579.2.593 1985 Unknown [id number] 2.16.84 0.1.779203.3.579.2.593 1985 Unknown [id number] 2.16.84 0.1.439160.3.579.2.593 1985 Unknown [id number] 2.16.84 0.1.527219.3.579.2.593 1985 Unknown [id number] 2.16.84 0.1.875567.3.579.2.593 1985 Unknown [id number] 2.16.84 0.1.852409.3.579.2.593 1985 Unknown [id number] 2.16.840 .1.034643.3.579.2.1259 1959 Self-pay 1959 Unknown [id number] Social History Date Type Detail Facility Unknown if ever smoked [facility] Other Sex Assigned At Sex Assigned At [facility] Other Evaluation note 11-20-2022 Note Date & Type Note Facility 11-20-2022 Evaluation note Encounter Date Diagnosis Assessment Notes Nov, Contact dermatitis, unspecified contact dermatitis type, unspecified trigger (ICD-10 - L25.9) Drink plenty fluids, get plenty of rest. Take the prednisone as prescribed until gone. You may take Zyrtec during the day for itching, take Benadryl at night for itching. Follow-up with your family physician if no improvement in 2 to 3 days Nov, Other Contact dermatitis home care material was printed [facility] Other Clinical Note 05-08-2022 Note Date & Type Note Facility 05-08-2022 Note EXAMINATION: US PELV IS HISTORY: Surgical procedure COMPARISON: No relevant comparison available. FINDINGS: The uterus is mildly heterogeneous in echotexture normal in size. Small amount of hypoechoic echogenicity identified within the endometrial cavity measuring 4.8 mm. Color ultrasound was not obtained IMPRESSION: Hypoechogenic endometrial cavity measuring 4.8 mm Electronically authenticated by: PEREZ DURBIN Date: 2022-05-08 18:03 [facility] Clinical Note 05-08-2022 Note Date & Type Note Facility 05-08-2022 Note OPERATIVE NOTE OPERATION DATE: 05/08/2022 PROCEDURE: Suction D AND C. PREOPERATIVE DIAGNOSIS: 1. Suspected molar during first trimester. 2. Uterine mass approximately 4.5 cm. POSTOPERATIVE DIAGNOSIS: 1. Suspected molar during first trimester. 2. Uterine mass approximately 4.5 cm. 3. Significant large amounts of retained products. SURGEON: Norbert Vega D.O. RN IMMUNOLOGY: None. BLOOD LOSS: 100 mL. URINE OUTPUT: Yellow and clear. SPECIMEN: Products of conception. FINDING: Significant large amounts of products of conception. PROCEDURE: The patient was taken back to the OR where she was given general anesthesia without difficulty. She was then placed in dorsal lithotomy position, prepped and draped in the normal sterile fashion. A weighted speculum was placed in the patient's vagina and the anterior lip of the cervix was identified and grasped with a single-tooth tenaculum. The patient was then gently dilated using Hegar dilators after we had sounded roughly to 12 cm. The suction curette was then tested. The suction curette was then placed in the patient's uterus and products of conception were removed using a 9-Canadian suction curette tip. Excellent hemostasis was noted. The patient tolerated the procedure well. Sponge, lap, and needle counts were correct x 2. All instruments were then removed from the patient's vagina. The patient was taken to the Recovery Room in stable condition. ?? [facility] History general Narrative - Reported Note Date & Type Note Facility History general Narrative - Reported Type Medical History Hypercholesterolemia Medical History Hormone imbalance Medical History Vitamin D deficiency Medical History Iron deficiency Surgical History C section Surgical History oral surgery Surgical History tonsillectomy and adenoidectomy Surgical History D&C 2021 Hospitalization History child [facility] Other Summary Purpose Family History No Family History Records FoundNo Family History Records FoundNo Family History Records Found Advance Directives No Advanced Directives Records FoundNo Advanced Directives Records FoundNo Advanced Directives Records Found Additional Source Comments INFORMATION SOURCE (unrecogn ized section and content) DATE CREATED AUTHOR 08/15/2020 [facility] DATE CREATED AUTHOR AUTHOR'S ORGANIZ ATION [facility] DATE CREATED AUTHOR AUTHOR'S ORGANIZ ATION 07/09/2023 [facility] EPIC REASON FOR VISIT (unrecogniz ed section and content) HEAT RASH FOR RECORDS PERTAINING TO PATIENTS WHO ARE OR HAVE BEEN ENROLLED IN A CHEMICAL DEPENDENCY/SUBSTANCEABUSE PROGRAM, SOME INFORMATION MAY BE OMITTED. This clinical summary was aggregated from multiple sources. Caution should be exercised in using it in the provision of clinical care. This summary normalizes information from multiple sources, and as a consequence, information in this document may materially change the coding, format and clinical context of patient data. In addition, data may be omitted in some cases. CLINICAL DECISIONS SHOULD BE BASED ON THE PRIMARY CLINICAL RECORDS. [employer] provides no warranty or guarantee of the accuracy or completeness of information in this document.
[2023-08-05 15:19] LABS: HCG Quantitative 312 mIU/mL
[2023-08-07 11:57] LABS: HCG Quantitative 159 mIU/mL
== END 2023-08-08 08:01 | disposition home or self-care (01) ==
LOC: LAB 13:38
PROVIDERS: PCP Family Medicine; Visit Provider Obstetrics & Gynecology
DX: N92.6 Irregular menstruation, unspecified (principal)
CPT/HCPCS: 36415; 84702

== ENCOUNTER 2023-08-23 15:40 | Outpatient (OUT) | payer MEDICAID, SELFPAY ==
--- OUTSIDE RECORDS SUMMARY | 2023-08-23 15:44 | XMS_ITS | CCD ---
Author Name Unknown Address [address] [place] [address] Organization [facility] Care Team Providers Care Pest Control Worker Name Role Phone Gloria Hayden Unavailable RAY [...] HOY ., DR KUMARI Primary Care Unavailable [place], DR PEREZ Luther Consulting Unavailable LAZARO ., DR TOUSSAINT Attending Unavailable LAZARO ., DR TOUSSAINT Consulting Unavailable HOY ., DR KUMARI Primary Care Unavailable [place], DR PEREZ Luther Consulting Unavailable LAZARO ., DR TOUSSAINT Admitting Unavailable LAZARO ., DR TOUSSAINT Attending Unavailable LAZARO ., DR TOUSSAINT Consulting Unavailable LAZARO ., DR TOUSSAINT Admitting Unavailable HOY ., DR KUMARI Primary Care Unavailable [place], DR PEREZ Luther Consulting Unavailable LAZARO ., DR TOUSSAINT Attending Unavailable LAZARO ., DR TOUSSAINT Consulting Unavailable MONIQUE COLEMAN Consulting Unavaila ble SURESH, MONIQUE ONEILL Consulting Unava ilCLARA Pompa Consulting Unavailable LAZARO ., DR TOUSSAINT Admitting Unavailable LAZARO ., DR TOUSSAINT Consulting Unavailable HOY ., DR KUMARI Primary Care Unavailable LAZARO ., DR [place] Attending Unavailable LAZARO ., DR TOUSSAINT Consulting Unavailable HOY ., DR KUMARI Primary Care Unavailable LAZARO ., DR TOUSSAINT Attending Unavailable LAZARO ., NORBERT Admitting Unavailable NORBERT VEGA Attending Unavailable Allergies Allergy Classification Reported Allergen(s) Allergy Type Date of Onset Reaction(s) Facility (1 source) Penicillin G Drug Allergy throat swelling [facility] Other (1 source) Cefaclor Drug Allergy [facility] (2 sources) Penicillins Drug allergy (disorder) [facility] Medications Current Medications Medication Drug Class(es) [...] Facility PROGESTERONEon 12-19-2022 Progesterone 9.6 ng/mL Normal [facility] Comment on above: Result Comment: Foll icular phase 0.1 - 0.9 Luteal phase 1.8 - 23.9 Ovulation phase 0.1 - 12.0 First trimester 11.0 - 44.3 Second trimester 25.4 - 83.3 Third trimester 58.7 - 214.0 Postmenopausal 0.0 - 0.1 Performed By: #### P DAXA #### [facility] [address] [place] [address] Dr. Josie Sanchez PROGESTERONEon 11-19-2022 Progesterone 6.3 ng/mL Normal [facility] Comment on above: Result Comment: Foll icular phase 0.1 - 0.9 Luteal phase 1.8 - 23.9 Ovulation phase 0.1 - 12.0 First trimester 11.0 - 44.3 Second trimester 25.4 - 83.3 Third trimester 58.7 - 214.0 Postmenopausal 0.0 - 0.1 Performed By: #### P DAXA #### [facility] [address] [place] [address] Dr. Josie Sanchez PREG QUANT HCGon 11-18-2022 HCG QUANT <1 Normal [facility] Comment on above: Performed By: #### P REGQNT #### [facility] [address] [place] [address] Dr. Josie Sanchez HCG RANGE SEE BELOW Normal [facility] Comment on above: Result Comment: 5-50 0.2-1 WEEK 50-500 1-2 WEEKS 100-5,000 2-3 WEEKS 500-10,000 3-4 WEEKS 1,000-50,000 4-5 WEEKS 10,000-100,000 5-6 WEEKS 15,000-200,000 6-8 WEEKS 10,000-100,000 2-3 MONTHS Performed By: #### P REGQNT #### [facility] [address] [place], [place] [id number] Dr. Josie Sanchez US PELVIS AND TRANSVAGon [...] of a yolk sac as noted by radiologic technologist chief. No significant free pelvic fluid is seen. [...] RENE MEYERS Date: 2022-11-16 18:09 Normal [facility] DHEA SERUMon 11-11-2022 Dehydroepiandrosterone (DHEA) 335 ng/dL Normal 31-701 [facility] Comment on above: Performed By: #### RILEY VALERIO #### [facility] [address] [place] [address] [id number] [address] Josie Sanchez DHEA-SULFATEon 11-10-2022 DHEA-Sulfate 251.0 ug/dL Normal 57.3-279.2 [facility] Comment on above: Performed By: #### P REGQNT #### [facility] [address] [place], [place] [id number] Dr. Josie Sanchez ESTRADIOLon 11-10-2022 Estradiol 66.1 pg/mL Normal [facility] Comment on above: Result Comment: Adul t Female: Follicular phase 12.5 - 166.0 Ovulation phase 85.8 - 498.0 Luteal phase 43.8 - 211.0 Postmenopausal <6.0 - 54.7 1st trimester 215.0 - >4300.0 Regina ECLIA methodology Performed By: #### RILEY VALERIO #### [facility] [address] [place] [address] Dr. Josie Sanchez FSHon 11-10-2022 FSH 6.9 mIU/mL Normal [facility] Comment on above: Result Comment: Adul t Female: Follicular phase 3.5 - 12.5 Ovulation phase 4.7 - 21.5 Luteal phase 1.7 - 7.7 Postmenopausal 25.8 - 134.8 Performed By: #### P REGQNT #### [facility] [address] [place] [address] Dr. Josie Sanchez LUTEINIZING HORMONE (LH)on 0 11-10-2022 LH 9.9 mIU/mL Normal [facility] Comment on above: Result Comment: Adul t Female: Follicular phase 2.4 - 12.6 Ovulation phase 14.0 - 95.6 Luteal phase 1.0 - 11.4 Postmenopausal 7.7 - 58.5 Performed By: #### RILEY VALERIO #### [facility] [address] [place] [address] Dr. Josie Sanchez CBC AUTO DIFFon 11-09-2022 BASO # 0.0 103/ul Normal 0.0-0.1 [facility] Comment on above: Performed By: #### RILEY VALERIO #### [facility] [address] [place] [address] Dr. Josie Sanchez Basophils/100 WBC (Bld) 0.3 % Normal 0.2-2.0 [facility] Comment on above: Performed By: #### KIAN VALERIORO #### [facility] [address] [place] [address] Dr. Josie Sanchez EO # 0.0 103/ul Normal 0.0-0.7 [facility] Comment on above: Performed By: #### RILEY VALERIO #### [facility] [address] [place] [address] Dr. Josie Sanchez Eosinophils/100 WBC (Bld) 0.5 % Critically low 0.9-7. 0 [facility] Comment on above: Performed By: #### RILEY VALERIO #### [facility] [address] [place] [address] Dr. Josie Sanchez Erythrocyte distribution width (RBC) [Ratio] 13.2 % Normal 11.0-15.0 [facility] Comment on above: Performed By: #### RILEY VALERIO #### [facility] [address] [place] [address] Dr. Josie Sanchez Hematocrit (Bld) [Volume fraction] 41.8 % Normal 36.0-48.0 [facility] Comment on above: Performed By: #### RILEY VALERIO #### [facility] [address] [place] [address] Dr. Josie Sanchez Hemoglobin (Bld) [Mass/Vol] 13.7 g/dL Normal 12.0-16.0 [facility] Comment on above: Performed By: #### RILEY VALERIO #### [facility] [address] [place] [address] Dr. oJsie Sanchez IG # 0.02 10e3/ul Normal 0.00-0.03 [facility] Comment on above: Performed By: #### RILEY VALERIO #### [facility] [address] [place] [address] Dr. Josie Sanchez IG % 0.3 % Normal 0.0-0.5 [facility] Comment on above: Performed By: #### RILEY VALERIO #### [facility] [address] [place] [address] Dr. Josie Sanchez LYMPH # 1.2 103/ul Normal 1.2-3.8 [facility] Comment on above: Performed By: #### RILEY VALERIO #### [facility] [address] [place] [address] Dr. Josie Sanchez Lymphocytes/100 WBC (Bld) 18.4 % Critically low 20.5-6 0.0 [facility] Comment on above: Performed By: #### E YOSELINR, UMICRO #### [facility] [address] [place] [address] Dr. Josie Sanchez MANUAL DIFF REQ NO Normal [facility] Comment on above: Performed By: #### E MIGUELANGEL, UMICRO #### [facility] [address] [place] [address] Dr. Josie Sanchez MCH (RBC) [Entitic mass] 29.5 pg Normal 26.7-34.0 [facility] Comment on above: Performed By: #### E MIGUELANGEL, UMICRO #### [facility] [address] [place] [address] Dr. Josie Sanchez MCHC (RBC) [Mass/Vol] 32.8 g/dL Normal 29.9-35.2 [facility] Comment on above: Performed By: #### Clyde MEANS, UMICRO #### [facility] [address] [place] [address] Dr. Josie Sanchez MCV (RBC) [Entitic vol] 89.9 fL Normal 81.0-99.0 [facility] Comment on above: Performed By: #### Clyde MEANS, UMICRO #### [facility] [address] [place] [address] Dr. Josie Sanchez MONO # 0.3 103/ul Normal 0.3-0.8 [facility] Comment on above: Performed By: #### E MIGUELANGEL, ICRO #### [facility] [address] [place] [address] Dr. Josie Sanchez Monocytes/100 WBC (Bld) 5.1 % Normal 1.7-12.0 [facility] Comment on above: Performed By: #### E MIGUELANGEL, UMICRO #### [facility] [address] [place] [address] Dr. Josie Sanchez NEUT # 4.8 103/ul Normal 1.4-6.5 [facility] Comment on above: Performed By: #### RILEY VALERIO #### [facility] [address] [place] [address] Dr. Josie Sanchez Neutrophils/100 WBC (Bld) 75.4 % Critically high 43.0- 75.0 [facility] Comment on above: Performed By: #### RILEY VALERIO #### [facility] [address] [place] [address] Dr. Josie Sanchez Platelet mean volume (Bld) [Entitic vol] 9.8 fL Normal 9.5-13.5 [facility] Comment on above: Performed By: #### RILEY VALERIO #### [facility] [address] [place] [address] Dr. Josie Sanchez PLT 256 103/ul Normal 150-450 [facility] Comment on above: Performed By: #### RILEY VALERIO #### [facility] [address] [place] [address] Dr. Josie Sanchez RBC 4.65 106/ul Normal 4.20-5.40 [facility] Comment on above: Performed By: #### RILEY VALERIO #### [facility] [address] [place] [address] Dr. Josie Sanchez WBC 6.4 103/ul Normal 4.0-11.0 [facility] Comment on above: Performed By: #### RILEY VALERIO #### [facility] [address] [place] [address] Dr. Josie Sanchez FERRITINon 11-09-2022 Ferritin [Mass/Vol] 42.0 ng/mL Normal 6.2-137.0 [facility] Comment on above: Performed By: #### RILEY VALERIO #### [facility] [address] [place] [address] Dr. Josie Sanchez FREE T4on 11-09-2022 Free T4 [Mass/Vol] 0.87 ng/dL Normal 0.76-1.46 [facility] Comment on above: Performed By: #### RILEY VALERIO #### [facility] [address] [place] [address] Dr. Josie Sanchez GLYCOHEMOGLOBIN A1Con 2022 ADA RECOMMENDATION SEE BELOW Normal [facility] Comment on above: Result Comment: ADA RECOMMENDED LIMIT 4.0 - 6.0 ADA THERAPEUTIC TARGET < 7.0 ACTION SUGGESTED > 7.0 Performed By: #### RILEY VALERIO #### [facility] [address] [place] [address] Dr. Josie Sanchez Glucose [Mass/Vol] 100 mg/dL Normal [facility] Comment on above: Performed By: #### RILEY VALERIO #### [facility] [address] [place] [address] Dr. Josie Sanchez HbA1c (Bld) [Mass fraction] 5.1 % Normal 4.5-6.2 [facility] Comment on above: Performed By: #### RILEY VALERIO #### [facility] [address] [place] [address] Dr. Josie Sanchez PREG QUANT HCGon 11-09-2022 HCG QUANT <1 Normal [facility] Comment on above: Performed By: #### RILEY VALERIO #### [facility] [address] [place] [address] Dr. Josie Sanchez HCG RANGE SEE BELOW Normal [facility] Comment on above: Result Comment: 5-50 0.2-1 WEEK 50-500 1-2 WEEKS 100-5,000 2-3 WEEKS 500-10,000 3-4 WEEKS 1,000-50,000 4-5 WEEKS 10,000-100,000 5-6 WEEKS 15,000-200,000 6-8 WEEKS 10,000-100,000 2-3 MONTHS Performed By: #### RILEY VALERIO #### [facility] [address] [place] [address] Dr. Josie Sanchez TSHon 11-09-2022 TSH 2.163 uIU/mL Normal 0.358-3.740 [facility] Comment on above: Performed By: #### RILEY VALERIO #### [facility] [address] [place] [address] Dr. Josie Sanchez PROGESTERONEon 08-29-2022 Progesterone 7.3 ng/mL Normal [facility] Comment on above: Result Comment: Foll icular phase 0.1 - 0.9 Luteal phase 1.8 - 23.9 Ovulation phase 0.1 - 12.0 First trimester 11.0 - 44.3 Second trimester 25.4 - 83.3 Third trimester 58.7 - 214.0 Postmenopausal 0.0 - 0.1 Performed By: #### P ROGES #### [facility] [address] [place] [address] Dr. Josie Sanchez INSULINon 08-13-2022 Insulin 12.5 uIU/mL Normal 2.6-24.9 [facility] Comment on above: Performed By: #### P REGQNT #### [facility] [address] [place] [address] Dr. Josie Sanchez CBC AUTO DIFFon 08-12-2022 BASO # 0.0 103/ul Normal 0.0-0.1 [facility] Comment on above: Performed By: #### KIAN VALERIORO #### [facility] [address] [place] [address] Dr. Josie Sanchez Basophils/100 WBC (Bld) 0.2 % Normal 0.2-2.0 [facility] Comment on above: Performed By: #### ROBERT VALERIOICRO #### [facility] [address] [place] [address] Dr. Josie Sanchez EO # 0.1 103/ul Normal 0.0-0.7 [facility] Comment on above: Performed By: #### ROBERT VALERIOICRO #### [facility] [address] [place] [address] Dr. Josie Sanchez Eosinophils/100 WBC (Bld) 0.8 % Critically low 0.9-7. 0 [facility] Comment on above: Performed By: #### ROBERT VALERIOICRO #### [facility] [address] [place] [address] Dr. Josie Sanchez Erythrocyte distribution width (RBC) [Ratio] 14.0 % Normal 11.0-15.0 [facility] Comment on above: Performed By: #### RILEY VALERIO #### [facility] [address] [place] [address] Dr. Josie Sanchez Hematocrit (Bld) [Volume fraction] 39.5 % Normal 36.0-48.0 [facility] Comment on above: Performed By: #### KIAN VALERIORO #### [facility] [address] [place] [address] Dr. Josie Sanchez Hemoglobin (Bld) [Mass/Vol] 12.7 g/dL Normal 12.0-16.0 [facility] Comment on above: Performed By: #### RILEY VALERIO #### [facility] [address] [place] [address] Dr. Josie Sanchez IG # 0.02 10e3/ul Normal 0.00-0.03 [facility] Comment on above: Performed By: #### RILEY VALERIO #### [facility] [address] [place] [address] Dr. Josie Sanchez IG % 0.3 % Normal 0.0-0.5 [facility] Comment on above: Performed By: #### RILEY VALERIO #### [facility] [address] [place] [address] Dr. oJsie Sanchez LYMPH # 1.6 103/ul Normal 1.2-3.8 [facility] Comment on above: Performed By: #### RILEY VALERIO #### [facility] [address] [place] [address] Dr. Josie Sanchez Lymphocytes/100 WBC (Bld) 26.9 % Normal 20.5-60.0 [facility] Comment on above: Performed By: #### KIAN VALERIORO #### [facility] [address] [place] [address] Dr. Josie Sanchez MANUAL DIFF REQ NO Normal [facility] Comment on above: Performed By: #### RILEY VALERIO #### [facility] [address] [place] [address] Dr. Josie Sanchez MCH (RBC) [Entitic mass] 28.3 pg Normal 26.7-34.0 [facility] Comment on above: Performed By: #### E MIGUELANGEL, UMICRO #### [facility] [address] [place] [address] Dr. Josie Sanchez MCHC (RBC) [Mass/Vol] 32.2 g/dL Normal 29.9-35.2 [facility] Comment on above: Performed By: #### E MIGUELANGEL, UMICRO #### [facility] [address] [place] [address] Dr. Josie Sanchez MCV (RBC) [Entitic vol] 88.0 fL Normal 81.0-99.0 [facility] Comment on above: Performed By: #### Clyde MEANS UMICRO #### [facility] [address] [place] [address] Dr. Josie Sanchez MONO # 0.4 103/ul Normal 0.3-0.8 [facility] Comment on above: Performed By: #### Clyde MEANS UMICRO #### [facility] [address] [place] [address] Dr. Josie Sanchez Monocytes/100 WBC (Bld) 7.1 % Normal 1.7-12.0 [facility] Comment on above: Performed By: #### Clyde MEANS, UMICRO #### [facility] [address] [place] [address] Dr. Josie Sanchez NEUT # 3.8 103/ul Normal 1.4-6.5 [facility] Comment on above: Performed By: #### E MIGUELANGEL, UMICRO #### [facility] [address] [place] [address] Dr. Josie Sanchez Neutrophils/100 WBC (Bld) 64.7 % Normal 43.0-75.0 [facility] Comment on above: Performed By: #### E RUR, UMICRO #### [facility] [address] [place] [address] Dr. Josie Sanchez Platelet mean volume (Bld) [Entitic vol] 10.1 fL Normal 9.5-13.5 [facility] Comment on above: Performed By: #### RILEY VALERIO #### [facility] [address] [place] [address] Dr. Josie Sanchez PLT 211 103/ul Normal 150-450 [facility] Comment on above: Performed By: #### RILEY VALERIO #### [facility] [address] [place] [address] Dr. Josie Sanchez RBC 4.49 106/ul Normal 4.20-5.40 [facility] Comment on above: Performed By: #### RILEY VALERIO #### [facility] [address] [place] [address] Dr. Josie Sanchez WBC 5.9 103/ul Normal 4.0-11.0 [facility] Comment on above: Performed By: #### RILEY VALERIO #### [facility] [address] [place] [address] Dr. Josie Sanchez FREE THYROXINE INDEX T7on FTI 2.63 Normal 1.30-4.50 [facility] Comment on above: Performed By: #### RILEY VALERIO #### [facility] [address] [place] [address] Dr. Josie Sanchez T3U 35.0 % Normal 30.0-39.0 [facility] Comment on above: Performed By: #### RILEY VALERIO #### [facility] [address] [place] [address] Dr. Josie Sanchez T4 [Mass/Vol] 7.50 ug/dL Normal 4.80-13.90 [facility] Comment on above: Performed By: #### RILEY VALERIO #### [facility] [address] [place] [address] Dr. Josie Sanchez GLYCOHEMOGLOBIN A1Con 2022 ADA RECOMMENDATION SEE BELOW Normal [facility] Comment on above: Result Comment: ADA RECOMMENDED LIMIT 4.0 - 6.0 ADA THERAPEUTIC TARGET < 7.0 ACTION SUGGESTED > 7.0 Performed By: #### RILEY VALERIO #### [facility] [address] [address] [address] Josie Sanchez Glucose [Mass/Vol] 111 mg/dL Normal [facility] Comment on above: Performed By: #### RILEY VALERIO #### [facility] [address] [place] [address] Dr. Josie Sanchez HbA1c (Bld) [Mass fraction] 5.5 % Normal 4.5-6.2 [facility] Comment on above: Performed By: #### RILEY VALERIO #### [facility] [address] [place] [address] Dr. Josie Sanchez IRONon 08-12-2022 Iron [Mass/Vol] 40.0 ug/dL Critically low 50.0-170.0 [facility] Comment on above: Performed By: #### P REGQNT #### [facility] [address] [place] [address] Dr. Josie Sanchez LIPID PROFILEon 08-12-2022 CHOL-HDL RATIO NORM SEE BELOW Normal [facility] Comment on above: Result Comment: 3.3 - 4.4 LOW RISK 4.4 - 7.1 AVERAGE RISK 7.1 - 11.0 MODERATE RISK >11.0 HIGH RISK Performed By: #### P REGQNT #### [facility] [address] [place] [address] Dr. Josie Sanchez Cholesterol [Mass/Vol] 183 mg/dL Normal <=200 [facility] Comment on above: Performed By: #### P REGQNT #### [facility] [address] [place] [address] Dr. Josie Sanchez Cholesterol in HDL [Mass/Vol] 40 mg/dL Normal 40-60 [facility] Comment on above: Performed By: #### P REGQNT #### [facility] [address] [place] [address] Dr. Josie Sanchez Cholesterol in LDL [Mass/Vol] 131.0 mg/dL Normal [facility] Comment on above: Performed By: #### P REGQNT #### [facility] [address] [address] [address] Josie Sanchez Cholesterol.total/Choleste rol in HDL [Mass ratio] 4.6 {ratio} Normal [facility] Comment on above: Performed By: #### P REGQNT #### [facility] [address] [address] [address] Josie Sanchez HDL NORMAL > or = 60 mg/dl - LOW CARDIOVASCULAR RISK <40 mg/dl - HIGH CARDIOVASCULAR RISK Normal [facility] Comment on above: Performed By: #### P REGQNT #### [facility] [address] [place] [address] Dr. Josie Sanchez LDL CALC NORMAL SEE BELOW Normal [facility] Comment on above: Result Comment: <100 mg/dl OPTIMAL 100 - 129 mg/dl NEAR OR ABOVE OPTIMAL 130 - 159 mg/dl BORDERLINE HIGH 160 - 189 mg/dl HIGH >190 mg/dl VERY HIGH Performed By: #### P REGQNT #### [facility] [address] [place] [address] Dr. Josie Sanchez Triglyceride [Mass/Vol] 60 mg/dL Normal <=150 [facility] Comment on above: Performed By: #### P REGQNT #### [facility] [address] [place] [address] Dr. Josie Sanchez VLDL CALC 12.0 mg/dL Normal [facility] Comment on above: Performed By: #### P REGQNT #### [facility] [address] [place] [address] Dr. Josie Sanchez PROF 14(COMP METB)on 023 Albumin [Mass/Vol] 3.7 g/dL Normal 3.4-5.0 [facility] Comment on above: Performed By: #### RILEY VALERIO #### [facility] [address] [place] [address] Dr. Josie Sanchez Albumin/Globulin [Mass ratio] 0.9 {ratio} Normal [facility] Comment on above: Performed By: #### RILEY VALERIO #### [facility] [address] [place] [address] Dr. Josie Sanchez ALP [Catalytic activity/Vol] 131 U/L Critically high 46-116 [facility] Comment on above: Performed By: #### RILEY VALERIO #### [facility] [address] [place] [address] Dr. Josie Sanchez ALT [Catalytic activity/Vol] 23 U/L Normal 14-59 [facility] Comment on above: Performed By: #### RILEY VALERIO #### [facility] [address] [place] [address] Dr. Josie Sanchez Anion gap [Moles/Vol] 10.5 mmol/L Normal [facility] Comment on above: Performed By: #### RILEY VALERIO #### [facility] [address] [place] [address] Dr. Josie Sanchez AST [Catalytic activity/Vol] 18 U/L Normal 15-37 [facility] Comment on above: Performed By: #### RILEY VALERIO #### [facility] [address] [place] [address] Dr. Josie Sanchez Bilirubin [Mass/Vol] 0.7 mg/dL Normal 0.2-1.0 [facility] Comment on above: Performed By: #### RILEY VALERIO #### [facility] [address] [place] [address] Dr. Josie Sanchez Calcium [Mass/Vol] 8.7 mg/dL Normal 8.5-10.1 [facility] Comment on above: Performed By: #### KIAN VALERIORO #### [facility] [address] [place] [address] Dr. Josie Sanchez Chloride [Moles/Vol] 103 mmol/L Normal 98-107 [facility] Comment on above: Performed By: #### KIAN VALERIORO #### [facility] [address] [place] [address] Dr. Josie Sanchez CO2 [Moles/Vol] 30.1 mmol/L Normal 21.0-32.0 [facility] Comment on above: Performed By: #### E RUR, UMICRO #### [facility] [address] [address] [address] Josie Sanchez Creatinine [Mass/Vol] 0.66 mg/dL Normal 0.55-1.02 [facility] Comment on above: Performed By: #### E RUR, UMICRO #### [facility] [address] [address] [address] Josie Sanchez EGFR-AF MALAWIAN >60 Normal >=60 [facility] Comment on above: Performed By: #### E YOSELINR, UMICRO #### [facility] [address] [place] [address] Dr. Josie Sanchez EGFR-NON AF MALAWIAN >60 Normal >=60 [facility] Comment on above: Performed By: #### E YOSELINR, UMICRO #### [facility] [address] [place] [address] Dr. Josie Sanchez Globulin (S) [Mass/Vol] 4.3 g/dL Normal [facility] Comment on above: Performed By: #### Clyde MEANS, UMICRO #### [facility] [address] [place] [address] Dr. Josie Sanchez Glucose [Mass/Vol] 90 mg/dL Normal 74-106 [facility] Comment on above: Performed By: #### Clyde WYATTR, UMICRO #### [facility] [address] [place] [address] Dr. Josie Sanchez Potassium [Moles/Vol] 3.6 mmol/L Normal 3.5-5.1 [facility] Comment on above: Performed By: #### E YOSELINR, UMICRO #### [facility] [address] [place] [address] Dr. Josie Sanchez Protein [Mass/Vol] 8.0 g/dL Normal 6.4-8.2 [facility] Comment on above: Performed By: #### E YOSELINR, UMICRO #### [facility] [address] [place] [address] Dr. Josie Sanchez Sodium [Moles/Vol] 140 mmol/L Normal 136-145 [facility] Comment on above: Performed By: #### RILEY VALERIO #### [facility] [address] [place] [address] Dr. Josie Sanchez Urea nitrogen [Mass/Vol] 12.0 mg/dL Normal 7.0-18.0 [facility] Comment on above: Performed By: #### RILEY VALERIO #### [facility] [address] [place] [address] Dr. Josie Sanchez Urea nitrogen/Creatinine [Mass ratio] 18.2 mg/mg Normal [facility] Comment on above: Performed By: #### RILEY VALERIO #### [facility] [address] [place] [address] Dr. Josie Sanchez TSHon 08-12-2022 TSH 3.070 uIU/mL Normal 0.358-3.740 [facility] Comment on above: Performed By: #### P REGQNT #### [facility] [address] [place] [address] Dr. Josie Sanchez PREG QUANT HCGon 06-22-2022 HCG QUANT 1 mIU/mL Normal [facility] Comment on above: Performed By: #### RILEY VALERIO #### [facility] [address] [place] [address] Dr. Josie Sanchez HCG RANGE SEE BELOW Normal [facility] Comment on above: Result Comment: 5-50 0.2-1 WEEK 50-500 1-2 WEEKS 100-5,000 2-3 WEEKS 500-10,000 3-4 WEEKS 1,000-50,000 4-5 WEEKS 10,000-100,000 5-6 WEEKS 15,000-200,000 6-8 WEEKS 10,000-100,000 2-3 MONTHS Performed By: #### RILEY VALERIO #### [facility] [address] [place] [address] Dr. Josie Sanchez PREG QUANT HCGon 05-20-2022 HCG QUANT 6 mIU/mL Normal [facility] Comment on above: Performed By: #### P REGQNT #### [facility] [address] [place] [address] Dr. Josie Sanchez HCG RANGE SEE BELOW Normal [facility] Comment on above: Result Comment: 5-50 0.2-1 WEEK 50-500 1-2 WEEKS 100-5,000 2-3 WEEKS 500-10,000 3-4 WEEKS 1,000-50,000 4-5 WEEKS 10,000-100,000 5-6 WEEKS 15,000-200,000 6-8 WEEKS 10,000-100,000 2-3 MONTHS Performed By: #### P REGQNT #### [facility] [address] [place] [address] Dr. Josie Sanchez PREG QUANT HCGon 05-14-2022 HCG QUANT 26 mIU/mL Normal [facility] Comment on above: Performed By: #### P REGQNT #### [facility] [address] [place] [address] Dr. Josie Sanhcez HCG RANGE SEE BELOW Normal [facility] Comment on above: Result Comment: 5-50 0.2-1 WEEK 50-500 1-2 WEEKS 100-5,000 2-3 WEEKS 500-10,000 3-4 WEEKS 1,000-50,000 4-5 WEEKS 10,000-100,000 5-6 WEEKS 15,000-200,000 6-8 WEEKS 10,000-100,000 2-3 MONTHS Performed By: #### P REGQNT #### [facility] [address] [place] [address] Dr. Josie Sanchez CBC AUTO DIFFon 05-08-2022 BASO # 0.0 103/ul Normal 0.0-0.1 [facility] Comment on above: Performed By: #### RILEY VALERIO #### [facility] [address] [place] [address] Dr. Josie Sanchez Basophils/100 WBC (Bld) 0.2 % Normal 0.2-2.0 [facility] Comment on above: Performed By: #### ROBERT VALERIOICRO #### [facility] [address] [place] [address] Dr. Josie Sanchez EO # 0.0 103/ul Normal 0.0-0.7 [facility] Comment on above: Performed By: #### RILEY VALERIO #### [facility] [address] [place] [address] Dr. Josie Sanchez Eosinophils/100 WBC (Bld) 0.5 % Critically low 0.9-7. 0 [facility] Comment on above: Performed By: #### RILEY VALERIO #### [facility] [address] [place] [address] Dr. Josie Sanchez Erythrocyte distribution width (RBC) [Ratio] 12.8 % Normal 11.0-15.0 [facility] Comment on above: Performed By: #### RILEY VALERIO #### [facility] [address] [place] [address] Dr. Josie Sanchez Hematocrit (Bld) [Volume fraction] 41.0 % Normal 36.0-48.0 [facility] Comment on above: Performed By: #### RILEY VALERIO #### [facility] [address] [place] [address] Dr. Josie Sanchez Hemoglobin (Bld) [Mass/Vol] 13.4 g/dL Normal 12.0-16.0 [facility] Comment on above: Performed By: #### RILEY VALERIO #### [facility] [address] [place] [address] Dr. Josie Sanchez IG # 0.02 10e3/ul Normal 0.00-0.03 [facility] Comment on above: Performed By: #### RILEY VALERIO #### [facility] [address] [place] [address] Dr. Josie Sanchez IG % 0.3 % Normal 0.0-0.5 [facility] Comment on above: Performed By: #### RILEY VALERIO #### [facility] [address] [place] [address] Dr. Josie Sanchez LYMPH # 1.6 103/ul Normal 1.2-3.8 [facility] Comment on above: Performed By: #### RILEY VALERIO #### [facility] [address] [place] [address] Dr. Josie Sanchez Lymphocytes/100 WBC (Bld) 27.1 % Normal 20.5-60.0 [facility] Comment on above: Performed By: #### KIAN VALERIORO #### [facility] [address] [place] [address] Dr. Josie Sanchez MANUAL DIFF REQ NO Normal [facility] Comment on above: Performed By: #### ROBERT VALERIOICRO #### [facility] [address] [place] [address] Dr. Josie Sanchez MCH (RBC) [Entitic mass] 29.3 pg Normal 26.7-34.0 [facility] Comment on above: Performed By: #### ROBERT VALERIOICRO #### [facility] [address] [place] [address] Dr. Josie Sanchez MCHC (RBC) [Mass/Vol] 32.7 g/dL Normal 29.9-35.2 [facility] Comment on above: Performed By: #### ROBERT VALERIOICRO #### [facility] [address] [place] [address] Dr. Joise Sanchez MCV (RBC) [Entitic vol] 89.5 fL Normal 81.0-99.0 [facility] Comment on above: Performed By: #### ROBERT VALERIOICRO #### [facility] [address] [place] [address] Dr. Josie Sanchez MONO # 0.5 103/ul Normal 0.3-0.8 [facility] Comment on above: Performed By: #### Clyde MEANS UMICRO #### [facility] [address] [place] [address] Dr. Josie Sanchez Monocytes/100 WBC (Bld) 8.6 % Normal 1.7-12.0 [facility] Comment on above: Performed By: #### Clyde MEANS UMICRO #### [facility] [address] [place] [address] Dr. Josie Sanchez NEUT # 3.7 103/ul Normal 1.4-6.5 [facility] Comment on above: Performed By: #### ROBERT VALERIOICRO #### [facility] [address] [place] [address] Dr. Josie Sanchez Neutrophils/100 WBC (Bld) 63.3 % Normal 43.0-75.0 [facility] Comment on above: Performed By: #### Clyde MEANS UMICRO #### [facility] [address] [place] [address] Dr. Josie Sanchez Platelet mean volume (Bld) [Entitic vol] 9.8 fL Normal 9.5-13.5 [facility] Comment on above: Performed By: #### Clyde MEANS UMICRO #### [facility] [address] [place] [address] Dr. Josie aSnchez PLT 238 103/ul Normal 150-450 [facility] Comment on above: Performed By: #### lCyde MEANS UMICRO #### [facility] [address] [place] [address] Dr. Josie Sanchez RBC 4.58 106/ul Normal 4.20-5.40 [facility] Comment on above: Performed By: #### Clyde MEANS ICRO #### [facility] [address] [place] [address] Dr. Josie Sanchez WBC 5.8 103/ul Normal 4.0-11.0 [facility] Comment on above: Performed By: #### Clyde MEANS ICRO #### [facility] [address] [place] [address] Dr. Josie Sanchez PREG QUANT HCGon 05-08-2022 HCG QUANT 2335 mIU/mL Normal [facility] Comment on above: Performed By: #### P REGQNT #### [facility] [address] [place] [address] Dr. Josie Sanchez HCG RANGE SEE BELOW Normal [facility] Comment on above: Result Comment: 5-50 0.2-1 WEEK 50-500 1-2 WEEKS 100-5,000 2-3 WEEKS 500-10,000 3-4 WEEKS 1,000-50,000 4-5 WEEKS 10,000-100,000 5-6 WEEKS 15,000-200,000 6-8 WEEKS 10,000-100,000 2-3 MONTHS Performed By: #### P REGQNT #### [facility] [address] [place] [address] Dr. Josie Sanchez CBC AUTO DIFFon 05-07-2022 BASO # 0.0 103/ul Normal 0.0-0.1 [facility] Comment on above: Performed By: #### KIAN VALERIORO #### [facility] [address] [place] [address] Dr. Josie Sanchez Basophils/100 WBC (Bld) 0.2 % Normal 0.2-2.0 [facility] Comment on above: Performed By: #### KIAN VALERIORO #### [facility] [address] [place] [address] Dr. Josie Sanchez EO # 0.0 103/ul Normal 0.0-0.7 [facility] Comment on above: Performed By: #### KIAN VALERIORO #### [facility] [address] [place] [address] Dr. Josie Sanchez Eosinophils/100 WBC (Bld) 0.3 % Critically low 0.9-7. 0 [facility] Comment on above: Performed By: #### KIAN VALERIORO #### [facility] [address] [place] [address] Dr. Josie Sanchez Erythrocyte distribution width (RBC) [Ratio] 12.8 % Normal 11.0-15.0 [facility] Comment on above: Performed By: #### KIAN VALERIORO #### [facility] [address] [place] [address] Dr. Josie Sanchez Hematocrit (Bld) [Volume fraction] 41.2 % Normal 36.0-48.0 [facility] Comment on above: Performed By: #### Clyde MEANS UMICRO #### [facility] [address] [place] [address] Dr. Josie Sanchez Hemoglobin (Bld) [Mass/Vol] 13.3 g/dL Normal 12.0-16.0 [facility] Comment on above: Performed By: #### Clyde MEANS UMICRO #### [facility] [address] [place] [address] Dr. Josie Sanchez IG # 0.02 10e3/ul Normal 0.00-0.03 [facility] Comment on above: Performed By: #### Clyde MEANS UMICRO #### [facility] [address] [place] [address] Dr. Josie Sanchez IG % 0.3 % Normal 0.0-0.5 [facility] Comment on above: Performed By: #### Clyde MEANS UMICRO #### [facility] [address] [place] [address] Dr. Josie Sanchez LYMPH # 1.0 103/ul Critically low 1.2-3.8 [facility] Comment on above: Performed By: #### Clyde MEANS UMICRO #### [facility] [address] [place] [address] Dr. Josie Sanchez Lymphocytes/100 WBC (Bld) 15.5 % Critically low 20.5-6 0.0 [facility] Comment on above: Performed By: #### Clyde MEANS UMICRO #### [facility] [address] [place] [address] Dr. Josie Sanchez MANUAL DIFF REQ NO Normal [facility] Comment on above: Performed By: #### Clyde MEANS UMICRO #### [facility] [address] [place] [address] Dr. Josie Sanchez MCH (RBC) [Entitic mass] 28.9 pg Normal 26.7-34.0 [facility] Comment on above: Performed By: #### Clyde MEANS UMICRO #### [facility] [address] [place] [address] Dr. Josie Sanchez MCHC (RBC) [Mass/Vol] 32.3 g/dL Normal 29.9-35.2 [facility] Comment on above: Performed By: #### Clyde MEANS UMICRO #### [facility] [address] [place] [address] Dr. Josie Sanchez MCV (RBC) [Entitic vol] 89.6 fL Normal 81.0-99.0 [facility] Comment on above: Performed By: #### RILEY VALERIO #### [facility] [address] [place] [address] Dr. Josie Sanchez MONO # 0.4 103/ul Normal 0.3-0.8 [facility] Comment on above: Performed By: #### KIAN VALERIORO #### [facility] [address] [place] [address] Dr. Josie Sanchez Monocytes/100 WBC (Bld) 6.2 % Normal 1.7-12.0 [facility] Comment on above: Performed By: #### RILEY VALERIO #### [facility] [address] [place] [address] Dr. Josie Sanchez NEUT # 5.0 103/ul Normal 1.4-6.5 [facility] Comment on above: Performed By: #### KIAN VALERIORO #### [facility] [address] [place] [address] Dr. Josie Sanchez Neutrophils/100 WBC (Bld) 77.5 % Critically high 43.0- 75.0 [facility] Comment on above: Performed By: #### KIAN VALERIORO #### [facility] [address] [place] [address] Dr. Josie Sanchez Platelet mean volume (Bld) [Entitic vol] 10.2 fL Normal 9.5-13.5 [facility] Comment on above: Performed By: #### KIAN VALERIORO #### [facility] [address] [place] [address] Dr. Josie Sanchez PLT 237 103/ul Normal 150-450 [facility] Comment on above: Performed By: #### KIAN VALERIORO #### [facility] [address] [place] [address] Dr. Josie Sanchez RBC 4.60 106/ul Normal 4.20-5.40 [facility] Comment on above: Performed By: #### RILEY VALERIO #### [facility] [address] [place] [address] Dr. Josie Sanchez WBC 6.5 103/ul Normal 4.0-11.0 [facility] Comment on above: Performed By: #### RILEY VALERIO #### [facility] [address] [place] [address] Dr. Josie Sanchez Covid-19 PCR ([facility])on 04-10 SARS-CoV-2 (COVID-19) RNA ALEXA+probe Ql (Unsp spec) Not detected Normal NOT DETECTED [facility] Comment on above: Result Comment: This test is not yet approved or cleared by the [place] FDA. When there are no FDA-approved or cleared tests available, and other criteria are met, FDA can make tests available under an emergency access mechanism called an Emergency Use Authorization (EUA). The EUA for this test is supported by the [employer] Installer of Health and Human Service's (HHS's) declaration [...] SARS-CoV-2. Performed By: #### RILEY VALERIO #### [facility] [address] [place] [address] Dr. Josie Sanchez PREG QUANT HCGon 05-07-2022 HCG QUANT 2745 mIU/mL Normal [facility] Comment on above: Performed By: #### RILEY VALERIO #### [facility] [address] [place] [address] Dr. Josie Sanchez HCG RANGE SEE BELOW Normal [facility] Comment on above: Result Comment: 5-50 0.2-1 WEEK 50-500 1-2 WEEKS 100-5,000 2-3 WEEKS 500-10,000 3-4 WEEKS 1,000-50,000 4-5 WEEKS 10,000-100,000 5-6 WEEKS 15,000-200,000 6-8 WEEKS 10,000-100,000 2-3 MONTHS Performed By: #### RILEY VALERIO #### [facility] [address] [place] [address] Dr. Josie Sanchez US PREG TVon 05-05-2022 [...] PEREZ DURBIN Date: 2022-05-05 14:42 Normal [facility] ER URINE PROFILEon 2 Bilirubin Ql (U) Negative Normal NEGATIVE [facility] Comment on above: Performed By: #### RILEY VALERIO #### [facility] [address] [place] [address] Dr. Josie Sanchez Clarity (U) CLEAR Normal CLEAR [facility] Comment on above: Performed By: #### RILEY VALERIO #### [facility] [address] [place] [address] Dr. Josie Sanchez Color (U) YELLOW Normal YELLOW [facility] Comment on above: Performed By: #### RILEY VALERIO #### [facility] [address] [place] [address] Dr. Josie Sanchez ERUAHD A micrscopic examination will be performed if indicated. Normal [facility] Comment on above: Performed By: #### KIAN VALERIORO #### [facility] [address] [place] [address] Dr. Josie Sanchez Glucose Ql (U) Negative Normal NEGATIVE [facility] Comment on above: Performed By: #### Clyde MEANS UMICRO #### [facility] [address] [place] [address] Dr. Josie Sanchez Hemoglobin Ql (U) SMALL Abnormal NEGATIVE [facility] Comment on above: Performed By: #### Clyde MEANS UMICRO #### [facility] [address] [place] [address] Dr. Josie Sanchez Ketones Ql (U) 15 mg/dl Abnormal NEGATIVE [facility] Comment on above: Performed By: #### Clyde MEANS UMICRO #### [facility] [address] [place] [address] Dr. Josie Sanchez LEUKOCYTES Negative Normal NEGATIVE [facility] Comment on above: Performed By: #### Clyde MEANS UMICRO #### [facility] [address] [place] [address] Dr. Josie Sanchez Nitrite Ql (U) Negative Normal NEGATIVE [facility] Comment on above: Performed By: #### Clyde MEANS UMICRO #### [facility] [address] [place] [address] Dr. Josie Sanchez pH (U) 6.0 [pH] Normal 5-9 [facility] Comment on above: Performed By: #### Clyde MEANS UMICRO #### [facility] [address] [place] [address] Dr. Josie Sanchez SPEC GRAVITY 1.020 Normal 1.005-<=1.025 [facility] Comment on above: Performed By: #### ROBERT VALERIOICRO #### [facility] [address] [place] [address] Dr. Josie Sanchez UA PROTEIN Negative Normal NEGATIVE/ TRACE [facility] Comment on above: Performed By: #### Clyde MEANS UMICRO #### [facility] [address] [place] [address] Dr. Josie Sanchez UR MICRO IND INDICATED Normal [facility] Comment on above: Performed By: #### ROBERT VALERIOICRO #### [facility] [address] [place] [address] Dr. Josie Sanchez Urobilinogen Qn (U) 0.2 {Fabricio'U}/dL Normal 0.2 - 1. 0 [facility] Comment on above: Performed By: #### Clyde MEANS UMICRO #### [facility] [address] [place] [address] Dr. Josie Sanchez URINE MICROSCOPIC ONLYon BACTERIA NONE SEEN Normal NONE SEEN [facility] Comment on above: Performed By: #### Clyde MEANS UMICRO #### [facility] [address] [place] [address] Dr. Josie Sanchez Bacteria identified Cx Nom (U) NOT INDICATED Normal [facility] Comment on above: Performed By: #### Clyde MEANS UMICRO #### [facility] [address] [place] [address] Dr. Josie Sanchez CAST NONE SEEN Normal NONE SEEN [facility] Comment on above: Performed By: #### Clyde MEANS UMICRO #### [facility] [address] [place] [address] Dr. Josie Sanchez Crystals LM Nom (Urine sed) NONE SEEN Normal NONE SEEN [facility] Comment on above: Performed By: #### Clyde MEANS UMICRO #### [facility] [address] [place] [address] Dr. Josie Sanchez Epithelial cells LM Ql (Urine sed) NONE SEEN Normal NONE SEEN /RARE [facility] Comment on above: Performed By: #### Clyde MEANS UMICRO #### [facility] [address] [place] [address] Dr. Josie Sanchez MUCOUS MODERATE Abnormal NONE SEEN [facility] Comment on above: Performed By: #### Clyde MEANS UMICRO #### [facility] [address] [place] [address] Dr. Josie Sanchez RBC 0-2 Normal 0-2 [facility] Comment on above: Performed By: #### Clyde MEANS UMICRO #### [facility] [address] [place] [address] Dr. Josie Sanchez WBC NONE SEEN Normal NONE SEEN [facility] Comment on above: Performed By: #### Clyde MEANS UMICRO #### [facility] [address] [place] [address] Dr. Josie Sanchez PREG QUANT HCGon 04-20-2022 HCG QUANT 52830 mIU/mL Normal [facility] Comment on above: Performed By: #### Clyde MEANS, UMICRO #### [facility] [address] [place] [address] Dr. Josie Sanchez HCG RANGE SEE BELOW Normal [facility] Comment on above: Result Comment: 5-50 0.2-1 WEEK 50-500 1-2 WEEKS 100-5,000 2-3 WEEKS 500-10,000 3-4 WEEKS 1,000-50,000 4-5 WEEKS 10,000-100,000 5-6 WEEKS 15,000-200,000 6-8 WEEKS 10,000-100,000 2-3 MONTHS Performed By: #### Clyde MEANS UMICRO #### [facility] [address] [place] [address] Dr. Josie Sanchez HCG-BETA SUBUNIT QUANTon hCG,Beta Subunit,Qnt,Serum <1 Normal [facility] Comment on above: Result Comment: Fema le (Non-) 0 - 5 (Postmenopausal) 0 - 8 . Female () Weeks of Gestation 3 6 - 71 4 10 - 750 5 601 - 6438 6 158 - 09619 7 [id number] -[id number] 8 48025 -306564 9 66019 -[phone] 10 69523 -160720 12 83680 -962563 14 92640 - 47013 15 75547 - 92422 16 7032 - 23234 17 2279 - 20199 18 1062 - [id number] [facility] ECLIA methodology Performed By: #### Clyde MEANS UMICRO #### [facility] [address] [place] [address] Dr. Josie Sanchez CBC AUTO DIFFon 07-13-2022 BASO # 0.0 103/ul Normal 0.0-0.1 [facility] Comment on above: Performed By: #### C BC #### [facility] [address] [place] [address] Dr. Josie Sanchez Basophils/100 WBC (Bld) 0.2 % Normal 0.2-2.0 [facility] Comment on above: Performed By: #### C BC #### [facility] [address] [place] [address] Dr. Josie Sanchez EO # 0.1 103/ul Normal 0.0-0.7 [facility] Comment on above: Performed By: #### C BC #### [facility] [address] [place] [address] Dr. Josie Sanchez Eosinophils/100 WBC (Bld) 0.8 % Critically low 0.9-7. 0 [facility] Comment on above: Performed By: #### C BC #### [facility] [address] [place] [address] Dr. Josie Sanchez Erythrocyte distribution width (RBC) [Ratio] 12.5 % Normal 11.0-15.0 [facility] Comment on above: Performed By: #### C BC #### [facility] [address] [place] [address] Dr. Josie Sanchez Hematocrit (Bld) [Volume fraction] 39.5 % Normal 36.0-48.0 [facility] Comment on above: Performed By: #### C BC #### [facility] [address] [place] [address] Dr. Josie Sanchez Hemoglobin (Bld) [Mass/Vol] 13.0 g/dL Normal 12.0-16.0 [facility] Comment on above: Performed By: #### C BC #### [facility] [address] [place] [address] Dr. Josie Sanchez IG # 0.02 10e3/ul Normal 0.00-0.03 [facility] Comment on above: Performed By: #### C BC #### [facility] [address] [place] [address] Dr. oJsie Sanchez IG % 0.3 % Normal 0.0-0.5 [facility] Comment on above: Performed By: #### C BC #### [facility] [address] [place] [address] Dr. Josie Sanchez LYMPH # 1.5 103/ul Normal 1.2-3.8 [facility] Comment on above: Performed By: #### C BC #### [facility] [address] [place] [address] Dr. Josie aSnchez Lymphocytes/100 WBC (Bld) 22.9 % Normal 20.5-60.0 [facility] Comment on above: Performed By: #### C BC #### [facility] [address] [place] [address] Dr. Josie Sanchez MANUAL DIFF REQ NO Normal [facility] Comment on above: Performed By: #### C BC #### [facility] [address] [place] [address] Dr. Josie Sanchez MCH (RBC) [Entitic mass] 30.3 pg Normal 26.7-34.0 [facility] Comment on above: Performed By: #### C BC #### [facility] [address] [place] [address] Dr. Josie Sanchez MCHC (RBC) [Mass/Vol] 32.9 g/dL Normal 29.9-35.2 [facility] Comment on above: Performed By: #### C BC #### [facility] [address] [place] [address] Dr. Josie Sanchez MCV (RBC) [Entitic vol] 92.1 fL Normal 81.0-99.0 [facility] Comment on above: Performed By: #### C BC #### [facility] [address] [place] [address] Dr. Josie Sanchez MONO # 0.4 103/ul Normal 0.3-0.8 [facility] Comment on above: Performed By: #### C BC #### [facility] [address] [place] [address] Dr. Josie Sanchez Monocytes/100 WBC (Bld) 5.7 % Normal 1.7-12.0 [facility] Comment on above: Performed By: #### C BC #### [facility] [address] [place] [address] Dr. Josie Sanchez NEUT # 4.6 103/ul Normal 1.4-6.5 [facility] Comment on above: Performed By: #### C BC #### [facility] [address] [place] [address] Dr. Josie Sanchez Neutrophils/100 WBC (Bld) 70.1 % Normal 43.0-75.0 [facility] Comment on above: Performed By: #### C BC #### [facility] [address] [place] [address] Dr. Josie Sanchez Platelet mean volume (Bld) [Entitic vol] 10.0 fL Normal 9.5-13.5 [facility] Comment on above: Performed By: #### C BC #### [facility] [address] [place] [address] Dr. Josie Sanchez PLT 242 103/ul Normal 150-450 [facility] Comment on above: Performed By: #### C BC #### [facility] [address] [place] [address] Dr. Josie Sanchez RBC 4.29 106/ul Normal 4.20-5.40 [facility] Comment on above: Performed By: #### C BC #### [facility] [address] [place] [address] Dr. Josie Sanchez WBC 6.5 103/ul Normal 4.0-11.0 [facility] Comment on above: Performed By: #### C BC #### [facility] [address] [place] [address] Dr. Josie Sanchez LIPID PROFILEon 02-18-2022 CHOL-HDL RATIO NORM SEE BELOW Normal [facility] Comment on above: Result Comment: 3.3 - 4.4 LOW RISK 4.4 - 7.1 AVERAGE RISK 7.1 - 11.0 MODERATE RISK >11.0 HIGH RISK Performed By: #### L IPID, TSH #### [facility] [address] [address] [address] Josie Sanchez Cholesterol [Mass/Vol] 182 mg/dL Normal <=200 [facility] Comment on above: Performed By: #### L IPID, TSH #### [facility] [address] [address] [address] Josie Sanchez Cholesterol in HDL [Mass/Vol] 40 mg/dL Normal 40-60 [facility] Comment on above: Performed By: #### L IPID, TSH #### [facility] [address] [address] [address] Josie Sanchez Cholesterol in LDL [Mass/Vol] 122.4 mg/dL Normal [facility] Comment on above: Performed By: #### L IPID, TSH #### [facility] [address] [place] [address] Dr. Josie Sanchez Cholesterol.total/Choleste rol in HDL [Mass ratio] 4.6 {ratio} Normal [facility] Comment on above: Performed By: #### L IPID, TSH #### [facility] [address] [place] [address] Dr. Josie Sanchez HDL NORMAL > or = 60 mg/dl - LOW CARDIOVASCULAR RISK <40 mg/dl - HIGH CARDIOVASCULAR RISK Normal [facility] Comment on above: Performed By: #### L IPID, TSH #### [facility] [address] [address] [address] Josie Sanchez LDL CALC NORMAL SEE BELOW Normal [facility] Comment on above: Result Comment: <100 mg/dl OPTIMAL 100 - 129 mg/dl NEAR OR ABOVE OPTIMAL 130 - 159 mg/dl BORDERLINE HIGH 160 - 189 mg/dl HIGH >190 mg/dl VERY HIGH Performed By: #### L IPID, TSH #### [facility] [address] [address] [address] Josie Sanchez Triglyceride [Mass/Vol] 98 mg/dL Normal <=150 [facility] Comment on above: Performed By: #### L IPID, TSH #### [facility] [address] [address] [address] Josie Sanchez VLDL CALC 19.6 mg/dL Normal [facility] Comment on above: Performed By: #### L IPID, TSH #### [facility] [address] [address] [address] Josie Sanchez PROTIMEon 02-18-2022 INR Coag (PPP) [Relative time] 1.10 {INR} Normal [facility] Comment on above: Performed By: #### P REGQNT #### [facility] [address] [place] [address] Dr. Josie Sanchez INR GUIDELINES SEE BELOW Normal [facility] Comment on above: Result Comment: PAULINA RED INR: 2.0 - 3.0 CONDITIONS NOT LISTED BELOW 2.5 - 3.5 FOR PROSTHETIC HEART VALVE REPLACEMENT 2.5 - 3.5 RECURRENT THROMBOSIS Performed By: #### P REGQNT #### [facility] [address] [place] [address] Dr. Josie Sanchez PT Coag (PPP) [Time] 11.8 s Critically high 9.0-11.6 [facility] Comment on above: Performed By: #### P REGQNT #### [facility] [address] [place] [address] Dr. Josie Sanchez PTTon 02-18-2022 aPTT Coag (Bld) [Time] 29.8 s Normal 22.3-36.2 [facility] Comment on above: Performed By: #### P REGQNT #### [facility] [address] [place] [address] Dr. Josie Sanchez TSHon 02-18-2022 TSH 3.410 uIU/mL Normal 0.358-3.740 [facility] Comment on above: Performed By: #### L IPID, TSH #### [facility] [address] [place] [address] Dr. Josie Sanchez US PELVIS AND TRANSVAGon [...] by: PEREZ DURBIN Date: 2022-02-18 18:56 Normal [facility] Nursing Note - Woundon 08-15 Nursing Note - Wound [id number] 242#3.00CD:127 Normal [facility] Coding Summary.on 08-08-2020 Coding Summary. CODING DATE: 08/08/2020 FINAL [facility] STATUS: Home (Routine DC) PAYOR: Medicaid [...] Jeannie Nur Date Saved: 08/08/2020 10:31 am [facility] Formson 08-08-2020 Forms [id number] 59#1.00CD:127 Normal [facility] Home Health Recordson 2019 Home Health Records [id number] FD#1.00CD:127 Normal [facility] Ambulatory Clinical Summaryo n 07-26-2020 Ambulatory Clinical Summary {[id number]- 05-9y-88-05-b0-03-3 3-60-e2-c7}CD:02299 8 [facility] Home Health Recordson 2019 Home Health Records [id number] C7#1.00CD:127 [facility] Progress Note - Woundon 07-09 Progress Note - Wound [id number] 0 [id number] 499#2.00CD:127 [facility] Consent for Treatmenton 07-09 Consent for Treatment [id number] 0 [id number] AA#1.00CD:127 [facility] Multi-Wound Charton 07-25-20 20 Multi-Wound Chart [id number] 158#1.00CD:127 [facility] Nursing Assessment - Woundon 07-25-2020 Nursing Assessment - Wound [id number] 897#1.00CD:127 [facility] Physician Orderon 07-25-2020 Physician Order [id number] 685#1.00CD:127 [facility] Home Health Recordson 2019 Home Health Records [id number] 41#1.00CD:[address] [facility] Health Recordson 2019 Home Health Records [id number] 54#1.00CD:127 [facility] Coding Summary.on 07-12-2020 Coding Summary. 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 However, the narrative phrase printed from the coding software may appear abbreviated, or result in slightly different terminology. Coded By: Aicha Bledsoe CphT Date Saved: 07/12/2020 03:05 pm [facility] Coding Summary. 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 However, the narrative phrase printed from the coding software may appear abbreviated, or result in slightly different terminology. Coded By: Aicha Bledsoe CphT Date Saved: 07/12/2020 03:03 pm [facility] Multi-Wound Charton 07-12-20 20 Multi-Wound Chart [id number] 370#1.00CD:127 [facility] Nursing Assessment - Woundon 07-12-2020 Nursing Assessment - Wound [id number] 7 [id number] 955#1.00CD:127 [facility] Nursing Note - Woundon 07-12 Nursing Note - Wound [id number] 616#1.00CD:127 [facility] Consent for Procedure/Surger yon 07-11-2020 Consent for Procedure/Surgery [id number] 413#1.00CD:127 [facility] Consent for Treatmenton Consent for Treatment [id number] 0 [id number] 6A#1.00CD:127 [facility] Home Health Recordson 2019 Home Health Records [id number]. [id number] A1#1.00CD:127 [facility] Home Health Records [id number]. [id number] A4#1.00CD:127 [facility] Physician Orderon 07-11-2020 Physician Order [id number] 863#1.00CD:127 [facility] Progress Note - Woundon Progress Note - Wound [id number] 0 [id number] 191#1.00CD:127 [facility] Nursing Note - Woundon 07-02 Nursing Note - Wound [id number] 261#3.00CD:127 [facility] Consent for Procedure/Surger yon 06-28-2020 Consent for Procedure/Surgery [id number] 00#1.00CD:127 [facility] Consent to Photographon 06-10 Consent to Photograph [id number]. [id number] 26#1.00CD:127 [facility] HIPAA Privacy Documentson HIPAA Privacy Documents [id number] 011 [id number] 58#1.00CD:127 [facility] Nursing Note - Woundon 06-28 Nursing Note - Wound [id number] 89#1.00CD:127 [facility] Nursing Note - Wound [id number] 17#1.00CD:127 [facility] Consent for Treatmenton 06-09 Consent for Treatment [id number] 0 [id number] DA#1.00CD:127 [facility] Multi-Wound Charton 06-27-20 20 Multi-Wound Chart [id number] 373#1.00CD:127 [facility] Nursing Assessment - Woundon 06-27-2020 Nursing Assessment - Wound [id number] [id number] 329#1.00CD:127 [facility] Physician Orderon 06-27-2020 Physician Order [id number] 834#2.00CD:127 [facility] Progress Note - Woundon 06-09 Progress Note - Wound [id number] 0 [id number] 362#1.00CD:127 [facility] HIPAA Privacy Documentson HIPAA Privacy Documents [id number] 020 [id number] 0235#1.00CD:127 [facility] Outside Records Officeon Outside Records Office [id number] 20 [id number] 0704#1.00CD:127 [facility] Vital Signs Date Time Vital Sign Value Performing Clinician Facility 11-20-2022 15:05-0400 Body height 152.4 cm Gloria Hayden Other [facility] Other 11-20-2022 15:05-0400 Body mass index (BMI) [Ratio] 11.72 kg/m2 Gloria Hayden Other [facility] Other 11-20-2022 15:05-0400 Body temperature 97.7 [degF] Gloria Hayden Other [facility] Other 11-20-2022 15:05-0400 Body weight 27.22 kg Gloria Hayden Other [facility] Other 11-20-2022 15:05-0400 Respiratory rate 18 /min Gloria Hayden Other [facility] Other 11-20-2022 15:05-0400 SaO2% (BldA) [Mass fraction] 97 % Gloria Hayden Other [facility] Other Encounters Encounter Date Encounter Type Care Provider Facility Start: 07-07-2023 End: 07-07-2023 ambulatory NORBERT VEGA Not Available Start: 12-21-2022 End: 12-21-[address] NORBERT VEGA . Facility:[facility] Start: 12-18-2022 End: 12-19-[address] NORBERT VEGA . Facility:[facility] Start: 11-20-2022 End: 11-20-2022 ambulatory Gloria Hayden Other [facility] Other Start: 11-20-2022 Office outpatient vi sit [...] laboratory examination DR NORBERT VEGA . [facility] Start: 05-08-2022 End: 05-08-[address] NORBERT [...] Facility:[facility] Payers Date Payer Category Payer Medicaid [id number] . [id number] 1985 Unknown [id number] 2.16.84 0.1.814019.3.579.2.593 1985 Unknown [id number] 2.16.84 0.1.138786.3.579.2.59 1985 Unknown [id number] 2.16.84 0.1.849595.3.579.2.59 1985 Unknown [id number] 2.16.84 0.1.840109.3.579.2.593 1985 Unknown [id number] 2.16.84 0.1.337315.3.579.2.59 1985 Unknown [id number] 2.16.84 0.1.962357.3.579.2.593 1985 Unknown [id number] 2.16.84 0.1.567593.3.579.2.59 1985 Unknown [id number] 2.16.84 0.1.512880.3.579.2.593 1985 Unknown [id number] 2.16.84 0.1.810488.3.579.2.593 1985 Unknown [id number] 2.16.84 0.1.418351.3.579.2.593 1985 Unknown [id number] 2.16.84 0.1.073223.3.579.2.593 1985 Unknown [id number] 2.16.84 0.1.031268.3.579.2.593 1985 Unknown [id number] 2.16.84 0.1.885239.3.579.2.593 1985 Unknown [id number] 2.16.84 0.1.948727.3.579.2.593 1985 Unknown [id number] 2.16.84 0.1.409951.3.579.2.593 1985 Unknown [id number] 2.16.84 0.1.330277.3.579.2.593 1985 Unknown [id number] 2.16.84 0.1.403118.3.579.2.593 1985 Unknown [id number] 2.16.84 0.1.757881.3.579.2.593 1985 Unknown [id number] 2.16.84 0.1.276159.3.579.2.593 1985 Unknown [id number] 2.16.84 0.1.771514.3.579.2.593 1985 Unknown [id number] 2.16.840 .1.272411.3.579.2.1259 1959 Self-pay 1959 Unknown [id number] Social History Date Type Detail Facility Unknown if ever smoked [facility] Other Sex Assigned At Sex Assigned At Bir [facility] Other Evaluation note 11-20-2022 Note Date & [...] Contact dermatitis home care material was printed [facility] Other Clinical Note 05-08-2022 Note Date & [...] authenticated by: PEREZ DURBIN Date: 2022-05-08 18:03 [facility] Clinical Note 05-08-2022 Note Date & Type Note Facility 05-08-2022 Note OPERATIVE NOTE OPERATION DATE: 05/08/2022 PROCEDURE: Suction D AND C. PREOPERATIVE DIAGNOSIS: 1. Suspected molar during first trimester. 2. Uterine mass approximately 4.5 cm. POSTOPERATIVE DIAGNOSIS: 1. Suspected molar during first trimester. 2. Uterine mass approximately 4.5 cm. 3. Significant large amounts of retained products. SURGEON: Norbert Vega D.O. MANAGER [address]: None. BLOOD LOSS: 100 mL. URINE OUTPUT: [...] products of conception were removed using a 9-Indonesian suction curette tip. Excellent hemostasis was noted. The patient tolerated the procedure well. Sponge, lap, and needle counts were correct x 2. All instruments were then removed from the patient's vagina. The patient was taken to the Recovery Room in stable condition. ?? [facility] History general Narrative - Reported Note Date & Type Note Facility History general Narrative - Reported Type Medical History Hypercholesterolemia Medical History Hormone imbalance Medical History Vitamin D deficiency Medical History Iron deficiency Surgical History C section Surgical History oral surgery Surgical History tonsillectomy and adenoidectomy Surgical History D&C 2021 Hospitalization History child [facility] Other Summary Purpose Family History No Family History Records FoundNo Family History Records FoundNo Family History Records Found Advance Directives No Advanced Directives Records FoundNo Advanced Directives Records FoundNo Advanced Directives Records Found Additional Source Comments INFORMATION SOURCE (unrecogn ized section and content) DATE CREATED AUTHOR 08/15/2020 [facility] DATE CREATED AUTHOR AUTHOR'S ORGANIZ ATION [facility] DATE CREATED AUTHOR AUTHOR'S ORGANIZ ATION 07/09/2023 [facility] REASON FOR VISIT (unrecogniz ed section and [...] BE BASED ON THE PRIMARY CLINICAL RECORDS. [employer] provides no warranty or guarantee of the accuracy or completeness of information in this document.
[2023-08-23 16:23] LABS: HCG Quantitative <1 mIU/mL
== END 2023-08-23 15:41 | disposition home or self-care (01) ==
LOC: LAB 15:41
PROVIDERS: PCP Family Medicine; Visit Provider Obstetrics & Gynecology
DX: O03.9 Complete or unspecified spontaneous abortion without complication (principal); Z51.89 Encounter for other specified aftercare; N92.1 Excessive and frequent menstruation with irregular cycle
CPT/HCPCS: 36415; 84702

== ENCOUNTER 2023-09-20 11:32 | Outpatient (OUT) | payer MEDICAID, SELFPAY ==
--- NOTE | 2023-09-20 11:35 | US_ITS ---
[address] [address] Patient Name: LB ANTONIO MRN: [id number] date: 1985 Sex: F Assigned Patient Location: Current Patient Location: Accession/Order Number: [id number] Exam Date: 09/20/2023 11:42 Report Date: 09/20/2023 13:51 At the request of: NORBERT WILLIS Procedure: US pelvis w/ transvaginal EXAMINATION: US pelvis w/ transvaginal HISTORY: pelvic pain in female R10.2 COMPARISON: 11/16/2022 FINDINGS: Transabdominal and transvaginal images The uterus is normal in size, contour and myometrial echotexture measuring 10.6 x 5.1 x 5.3 cm. No focal myometrial mass. The endometrium measures 5.8 mm, normal. The right ovary measures 3.8 x 2.6 x 2.1 cm. Normal color and Doppler flow. Complex cystic structure measuring 1.7 cm with irregular thickened wall but no internal vascularity The left ovary measures 2.7 x 1.6 x 2.0 cm. Normal color and Doppler flow No free fluid US/US pelvis w/ transvaginal IMPRESSION: Complex thick-walled left ovarian cyst measuring 1.7 cm Electronically authenticated by: PEREZ DURBIN Date: 09/20/2023 13:51
--- OUTSIDE RECORDS SUMMARY | 2023-09-20 11:35 | XMS_ITS | CCD ---
Author Name Unknown Address [address] [place] [address] Organization [facility] Care Team Providers Care Hull Line Crew Member Name Role Phone Gloria Hayden Unavailable RAY [...] Unavailable LAZARO ., DR TOUSSAINT Admitting Unavailable AHDOOTRENE Consulting Unavailable HOY ., DR KUMARI Admitting [...] HOY ., DR KUMARI Primary Care Unavailable URANIA, DR PEREZ Luther Consulting Unavailable LAZARO ., DR TOUSSAINT Attending Unavailable LAZARO ., DR TOUSSAINT Consulting Unavailable HOY ., DR KUMARI Primary Care Unavailable URANIA, DR PEREZ Luther Consulting Unavailable LAZARO ., DR TOUSSAINT Admitting Unavailable LAZARO ., DR TOUSSAINT Attending Unavailable LAZARO ., DR TOUSSAINT Consulting Unavailable LAZARO ., DR TOUSSAINT Admitting Unavailable HOY ., DR KUMARI Primary Care Unavailable URANIA, DR PEREZ Luther Consulting Unavailable LAZARO ., [...] LAZARO ., DR TOUSSAINT Attending Unavailable LAZARO .DR TOUSSAINT Admitting Unavailable NORBERT VEGA Attending Unavailable NORBERT VEGA Attending Unavailable Allergies Allergy Classification Reported Allergen(s) Allergy Type Date of Onset Reaction(s) Facility (1 source) Penicillin G Drug Allergy throat swelling [facility] Other (1 source) Cefaclor Drug Allergy [facility] (2 sources) Penicillins Drug allergy (disorder) 6 [facility] Medications Current Medications Medication [...] Facility PROGESTERONEon 12-19-2022 Progesterone 9.6 ng/mL Normal [facility] Comment on above: Result Comment: Foll icular phase 0.1 - 0.9 Luteal phase 1.8 - 23.9 Ovulation phase 0.1 - 12.0 First trimester 11.0 - 44.3 Second trimester 25.4 - 83.3 Third trimester 58.7 - 214.0 Postmenopausal 0.0 - 0.1 Performed By: #### P DAXA #### [facility] [address] [place] [address] Dr. Josie Sanchez PROGESTERONEon 11-19-2022 Progesterone 6.3 ng/mL Normal [facility] Comment on above: Result Comment: Foll icular phase 0.1 - 0.9 Luteal phase 1.8 - 23.9 Ovulation phase 0.1 - 12.0 First trimester 11.0 - 44.3 Second trimester 25.4 - 83.3 Third trimester 58.7 - 214.0 Postmenopausal 0.0 - 0.1 Performed By: #### P DAXA #### [facility] [address] [place] [address] Dr. Josie Sanchez PREG QUANT HCGon 11-18-2022 HCG QUANT <1 Normal [facility] Comment on above: Performed By: #### P REGQNT #### [facility] [address] [place] [address] Dr. Josie Sanchez HCG RANGE SEE BELOW Normal [facility] Comment on above: Result Comment: 5-50 0.2-1 WEEK 50-500 1-2 WEEKS 100-5,000 2-3 WEEKS 500-10,000 3-4 WEEKS 1,000-50,000 4-5 WEEKS 10,000-100,000 5-6 WEEKS 15,000-200,000 6-8 WEEKS 10,000-100,000 2-3 MONTHS Performed By: #### P REGQNT #### [facility] [address] [place] [address] Dr. Josie Sanchez US PELVIS AND TRANSVAGon [...] of a yolk sac as noted by technologist development. No significant free pelvic fluid is seen. [...] RENE MEYERS Date: 2022-11-16 18:09 Normal [facility] DHEA SERUMon 11-11-2022 Dehydroepiandrosterone (DHEA) 335 ng/dL Normal 31-701 [facility] Comment on above: Performed By: #### RILEY VALERIO #### [facility] [address] [id number] Josie Sanchez DHEA-SULFATEon 11-10-2022 DHEA-Sulfate 251.0 ug/dL Normal 57.3-279.2 [facility] Comment on above: Performed By: #### P REGQNT #### [facility] [address] [place] [address] Dr. Josie Sanchez ESTRADIOLon 11-10-2022 Estradiol 66.1 pg/mL Normal [facility] Comment on above: Result Comment: Adul t Female: Follicular phase 12.5 - 166.0 Ovulation phase 85.8 - 498.0 Luteal phase 43.8 - 211.0 Postmenopausal <6.0 - 54.7 1st trimester 215.0 - >4300.0 [facility] ECLIA methodology Performed By: #### RILEY VALERIO #### [facility] [address] [place] [address] Dr. Josie Sanchez FSHon 11-10-2022 FSH 6.9 mIU/mL Normal [facility] Comment on above: Result Comment: Adul t Female: Follicular phase 3.5 - 12.5 Ovulation phase 4.7 - 21.5 Luteal phase 1.7 - 7.7 Postmenopausal 25.8 - 134.8 Performed By: #### P REGQNT #### [facility] [address] [place] [address] Dr. Josie Sanchez LUTEINIZING HORMONE (LH)on 0 11-10-2022 LH 9.9 mIU/mL Normal [facility] Comment on above: Result Comment: Adul t Female: Follicular phase 2.4 - 12.6 Ovulation phase 14.0 - 95.6 Luteal phase 1.0 - 11.4 Postmenopausal 7.7 - 58.5 Performed By: #### RILEY VALERIO #### [facility] [address] [place] [address] Dr. Josie Sanchez CBC AUTO DIFFon 11-09-2022 BASO # 0.0 103/ul Normal 0.0-0.1 [facility] Comment on above: Performed By: #### RILEY VALERIO #### [facility] [address] [place] [address] Dr. Josie Sanchez Basophils/100 WBC (Bld) 0.3 % Normal 0.2-2.0 [facility] Comment on above: Performed By: #### RILEY VALERIO #### [facility] [address] [place] [address] Dr. Josie Sanchez EO # 0.0 103/ul Normal 0.0-0.7 [facility] Comment on above: Performed By: #### KIAN VALERIORO #### [facility] [address] [place] [address] Dr. Josie Sanchez Eosinophils/100 WBC (Bld) 0.5 % Critically low 0.9-7. 0 [facility] Comment on above: Performed By: #### ROBERT VALERIOICRO #### [facility] [address] [place] [address] Dr. Josie Sanchez Erythrocyte distribution width (RBC) [Ratio] 13.2 % Normal 11.0-15.0 [facility] Comment on above: Performed By: #### KIAN VALERIORO #### [facility] [address] [place] [address] Dr. Josie Sanchez Hematocrit (Bld) [Volume fraction] 41.8 % Normal 36.0-48.0 [facility] Comment on above: Performed By: #### ROBERT VALERIOICRO #### [facility] [address] [place] [address] Dr. Josie Sanchez Hemoglobin (Bld) [Mass/Vol] 13.7 g/dL Normal 12.0-16.0 [facility] Comment on above: Performed By: #### Clyde MEANS UMICRO #### [facility] [address] [place] [address] Dr. Josie Sanchez IG # 0.02 10e3/ul Normal 0.00-0.03 [facility] Comment on above: Performed By: #### Clyde MEANS UMICRO #### [facility] [address] [place] [address] Dr. Josie Sanchez IG % 0.3 % Normal 0.0-0.5 [facility] Comment on above: Performed By: #### Clyde MEANS, UMICRO #### [facility] [address] [place] [address] Dr. Josie Sanchez LYMPH # 1.2 103/ul Normal 1.2-3.8 [facility] Comment on above: Performed By: #### Clyde MEANS UMICRO #### [facility] [address] [place] [address] Dr. Josie Sanchez Lymphocytes/100 WBC (Bld) 18.4 % Critically low 20.5-6 0.0 [facility] Comment on above: Performed By: #### Clyde MEANS UMICRO #### [facility] [address] [place] [address] Dr. Josie Sanchez MANUAL DIFF REQ NO Normal [facility] Comment on above: Performed By: #### Clyde MEANS UMICRO #### [facility] [address] [place] [address] Dr. Josie Sanchez MCH (RBC) [Entitic mass] 29.5 pg Normal 26.7-34.0 [facility] Comment on above: Performed By: #### Clyde MEANS UMICRO #### [facility] [address] [place] [address] Dr. Josie Sanchez MCHC (RBC) [Mass/Vol] 32.8 g/dL Normal 29.9-35.2 [facility] Comment on above: Performed By: #### Clyde MEANS UMICRO #### [facility] [address] [place] [address] Dr. Josie Sanchez MCV (RBC) [Entitic vol] 89.9 fL Normal 81.0-99.0 [facility] Comment on above: Performed By: #### Clyde MEANS UMICRO #### [facility] [address] [place] [address] Dr. Josie Sanchez MONO # 0.3 103/ul Normal 0.3-0.8 [facility] Comment on above: Performed By: #### Clyde MEANS UMICRO #### [facility] [address] [place] [address] Dr. Josie Sanchez Monocytes/100 WBC (Bld) 5.1 % Normal 1.7-12.0 [facility] Comment on above: Performed By: #### Clyde MEANS UMICRO #### [facility] [address] [place] [address] Dr. Josie Sanchez NEUT # 4.8 103/ul Normal 1.4-6.5 [facility] Comment on above: Performed By: #### RILEY VALERIO #### [facility] [address] [place] [address] Dr. Josie Sanchez Neutrophils/100 WBC (Bld) 75.4 % Critically high 43.0- 75.0 [facility] Comment on above: Performed By: #### RILEY VALEIRO #### [facility] [address] [place] [address] Dr. Josie Sanchez Platelet mean volume (Bld) [Entitic vol] 9.8 fL Normal 9.5-13.5 [facility] Comment on above: Performed By: #### RILEY VALERIO #### [facility] [address] [place] [address] Dr. Josie Sanchez PLT 256 103/ul Normal 150-450 [facility] Comment on above: Performed By: #### KIAN VALERIORO #### [facility] [address] [place] [address] Dr. Josie Sanchez RBC 4.65 106/ul Normal 4.20-5.40 [facility] Comment on above: Performed By: #### RILEY VALERIO #### [facility] [address] [place] [address] Dr. Josie Sanchez WBC 6.4 103/ul Normal 4.0-11.0 [facility] Comment on above: Performed By: #### KIAN VALERIORO #### [facility] [address] [place] [address] Dr. Josie Sanchez FERRITINon 11-09-2022 Ferritin [Mass/Vol] 42.0 ng/mL Normal 6.2-137.0 [facility] Comment on above: Performed By: #### KIAN VALERIORO #### [facility] [address] [place] [address] Dr. Josie Sanchez FREE T4on 11-09-2022 Free T4 [Mass/Vol] 0.87 ng/dL Normal 0.76-1.46 [facility] Comment on above: Performed By: #### RILEY VALERIO #### [facility] [address] [place] [address] Dr. Josie Sanchez GLYCOHEMOGLOBIN A1Con 2022 ADA RECOMMENDATION SEE BELOW Normal [facility] Comment on above: Result Comment: ADA RECOMMENDED LIMIT 4.0 - 6.0 ADA THERAPEUTIC TARGET < 7.0 ACTION SUGGESTED > 7.0 Performed By: #### KIAN VALERIORO #### [facility] [address] [place] [address] Dr. Josie Sanchez Glucose [Mass/Vol] 100 mg/dL Normal [facility] Comment on above: Performed By: #### RILEY VALERIO #### [facility] [address] [place] [address] Dr. Josie Sanchez HbA1c (Bld) [Mass fraction] 5.1 % Normal 4.5-6.2 [facility] Comment on above: Performed By: #### KIAN VALERIORO #### [facility] [address] [place] [address] Dr. Josie Sanchez PREG QUANT HCGon 11-09-2022 HCG QUANT <1 Normal [facility] Comment on above: Performed By: #### KIAN VALERIORO #### [facility] [address] [place] [address] Dr. Josie Sanchez HCG RANGE SEE BELOW Normal [facility] Comment on above: Result Comment: 5-50 0.2-1 WEEK 50-500 1-2 WEEKS 100-5,000 2-3 WEEKS 500-10,000 3-4 WEEKS 1,000-50,000 4-5 WEEKS 10,000-100,000 5-6 WEEKS 15,000-200,000 6-8 WEEKS 10,000-100,000 2-3 MONTHS Performed By: #### KIAN VALERIORO #### [facility] [address] [place] [address] Dr. Josie Sanchez TSHon 11-09-2022 TSH 2.163 uIU/mL Normal 0.358-3.740 [facility] Comment on above: Performed By: #### RILEY VALERIO #### [facility] [address] [place] [address] Dr. Josie Sanchez PROGESTERONEon 08-29-2022 Progesterone 7.3 ng/mL Normal [facility] Comment on above: Result Comment: Foll icular phase 0.1 - 0.9 Luteal phase 1.8 - 23.9 Ovulation phase 0.1 - 12.0 First trimester 11.0 - 44.3 Second trimester 25.4 - 83.3 Third trimester 58.7 - 214.0 Postmenopausal 0.0 - 0.1 Performed By: #### P ROGES #### [facility] [address] [place] [address] Dr. Josie Sanchez INSULINon 08-13-2022 Insulin 12.5 uIU/mL Normal 2.6-24.9 [facility] Comment on above: Performed By: #### P REGQNT #### [facility] [address] [place] [address] Dr. Josie Sanchez CBC AUTO DIFFon 08-12-2022 BASO # 0.0 103/ul Normal 0.0-0.1 [facility] Comment on above: Performed By: #### RILEY VALERIO #### [facility] [address] [place] [address] Dr. Josie Sanchez Basophils/100 WBC (Bld) 0.2 % Normal 0.2-2.0 [facility] Comment on above: Performed By: #### RILEY VALERIO #### [facility] [address] [place] [address] Dr. Josie Sanchez EO # 0.1 103/ul Normal 0.0-0.7 [facility] Comment on above: Performed By: #### RILEY VALERIO #### [facility] [address] [place] [address] Dr. Josie Sanchez Eosinophils/100 WBC (Bld) 0.8 % Critically low 0.9-7. 0 [facility] Comment on above: Performed By: #### RILEY VALERIO #### [facility] [address] [place] [address] Dr. Josie Sanchez Erythrocyte distribution width (RBC) [Ratio] 14.0 % Normal 11.0-15.0 [facility] Comment on above: Performed By: #### KIAN VALERIORO #### [facility] [address] [place] [address] Dr. Josie Sanchez Hematocrit (Bld) [Volume fraction] 39.5 % Normal 36.0-48.0 [facility] Comment on above: Performed By: #### Clyde MEANS UMICRO #### [facility] [address] [place] [address] Dr. Josie Sanchez Hemoglobin (Bld) [Mass/Vol] 12.7 g/dL Normal 12.0-16.0 [facility] Comment on above: Performed By: #### Clyde MEANS UMGEORGIARO #### [facility] [address] [place] [address] Dr. Josie Sanchez IG # 0.02 10e3/ul Normal 0.00-0.03 [facility] Comment on above: Performed By: #### Clyde MEANS UMICRO #### [facility] [address] [place] [address] Dr. Josie Sanchez IG % 0.3 % Normal 0.0-0.5 [facility] Comment on above: Performed By: #### Clyde MEANS UMICRO #### [facility] [address] [place] [address] Dr. Josie Sanchez LYMPH # 1.6 103/ul Normal 1.2-3.8 [facility] Comment on above: Performed By: #### Clyde MEANS, UMICRO #### [facility] [address] [place] [address] Dr. Josie Sanchez Lymphocytes/100 WBC (Bld) 26.9 % Normal 20.5-60.0 [facility] Comment on above: Performed By: #### Clyde MEANS, UMICRO #### [facility] [address] [place] [address] Dr. Josie Sanchez MANUAL DIFF REQ NO Normal [facility] Comment on above: Performed By: #### KIAN VALERIORO #### [facility] [address] [place] [address] Dr. Josie Sanchez MCH (RBC) [Entitic mass] 28.3 pg Normal 26.7-34.0 [facility] Comment on above: Performed By: #### KIAN VALERIORO #### [facility] [address] [place] [address] Dr. Josie Sanchez MCHC (RBC) [Mass/Vol] 32.2 g/dL Normal 29.9-35.2 [facility] Comment on above: Performed By: #### Clyde MEANS UMICRO #### [facility] [address] [place] [address] Dr. Josie Sanchez MCV (RBC) [Entitic vol] 88.0 fL Normal 81.0-99.0 [facility] Comment on above: Performed By: #### KIAN VALERIORO #### [facility] [address] [place] [address] Dr. Josie Sanchez MONO # 0.4 103/ul Normal 0.3-0.8 [facility] Comment on above: Performed By: #### KIAN VALERIORO #### [facility] [address] [place] [address] Dr. Josie Sanchez Monocytes/100 WBC (Bld) 7.1 % Normal 1.7-12.0 [facility] Comment on above: Performed By: #### ROBERT VALERIOICRO #### [facility] [address] [place] [address] Dr. Josie Sanchez NEUT # 3.8 103/ul Normal 1.4-6.5 [facility] Comment on above: Performed By: #### ROBERT VALERIOICRO #### [facility] [address] [place] [address] Dr. Josie Sanchez Neutrophils/100 WBC (Bld) 64.7 % Normal 43.0-75.0 [facility] Comment on above: Performed By: #### KIAN VALERIORO #### [facility] [address] [place], [place] [id number] Dr. Josie Sanchez Platelet mean volume (Bld) [Entitic vol] 10.1 fL Normal 9.5-13.5 [facility] Comment on above: Performed By: #### RILEY VALERIO #### [facility] [address] [place] [address] Dr. Josie Sanchez PLT 211 103/ul Normal 150-450 [facility] Comment on above: Performed By: #### RILEY VALERIO #### [facility] [address] [place] [address] Dr. oJsie Sanchez RBC 4.49 106/ul Normal 4.20-5.40 [facility] Comment on above: Performed By: #### RILEY VALERIO #### [facility] [address] [place] [address] Dr. Josie Sanchez WBC 5.9 103/ul Normal 4.0-11.0 [facility] Comment on above: Performed By: #### RILEY VALERIO #### [facility] [address] [place] [address] Dr. Josie Sanchez FREE THYROXINE INDEX T7on FTI 2.63 Normal 1.30-4.50 [facility] Comment on above: Performed By: #### KIAN VALERIORO #### [facility] [address] [place] [address] Dr. Josie Sanchez T3U 35.0 % Normal 30.0-39.0 [facility] Comment on above: Performed By: #### KIAN VALERIORO #### [facility] [address] [place] [address] Dr. Josie Sanchez T4 [Mass/Vol] 7.50 ug/dL Normal 4.80-13.90 [facility] Comment on above: Performed By: #### KIAN VALERIORO #### [facility] [address] [place] [address] Dr. Josie Sanchez GLYCOHEMOGLOBIN A1Con 2022 ADA RECOMMENDATION SEE BELOW Normal [facility] Comment on above: Result Comment: ADA RECOMMENDED LIMIT 4.0 - 6.0 ADA THERAPEUTIC TARGET < 7.0 ACTION SUGGESTED > 7.0 Performed By: #### RILEY VALERIO #### [facility] [address] [place] [address] Dr. Josie Sanchez Glucose [Mass/Vol] 111 mg/dL Normal [facility] Comment on above: Performed By: #### RILEY VALERIO #### [facility] [address] [place] [address] Dr. Josie Sanchez HbA1c (Bld) [Mass fraction] 5.5 % Normal 4.5-6.2 [facility] Comment on above: Performed By: #### RILEY VALERIO #### [facility] [address] [place] [address] Dr. Josie Sanchez IRONon 08-12-2022 Iron [Mass/Vol] 40.0 ug/dL Critically low 50.0-170.0 [facility] Comment on above: Performed By: #### P REGQNT #### [facility] [address] [place] [address] Dr. Josie Sanchez LIPID PROFILEon 08-12-2022 CHOL-HDL RATIO NORM SEE BELOW Normal [facility] Comment on above: Result Comment: 3.3 - 4.4 LOW RISK 4.4 - 7.1 AVERAGE RISK 7.1 - 11.0 MODERATE RISK >11.0 HIGH RISK Performed By: #### P REGQNT #### [facility] [address] [place] [address] Dr. Josie Sanchez Cholesterol [Mass/Vol] 183 mg/dL Normal <=200 [facility] Comment on above: Performed By: #### P REGQNT #### [facility] [address] [place] [address] Dr. Josie Sanchez Cholesterol in HDL [Mass/Vol] 40 mg/dL Normal 40-60 [facility] Comment on above: Performed By: #### P REGQNT #### [facility] [address] [place] [address] Dr. Josie Sanchez Cholesterol in LDL [Mass/Vol] 131.0 mg/dL Normal [facility] Comment on above: Performed By: #### P REGQNT #### [facility] [address] [address] [address] Josie Sanchez Cholesterol.total/Choleste rol in HDL [Mass ratio] 4.6 {ratio} Normal [facility] Comment on above: Performed By: #### P REGQNT #### [facility] [address] [address] [address] Josie Sanchez HDL NORMAL > or = 60 mg/dl - LOW CARDIOVASCULAR RISK <40 mg/dl - HIGH CARDIOVASCULAR RISK Normal [facility] Comment on above: Performed By: #### P REGQNT #### [facility] [address] [address] [address] Josie Sanchez LDL CALC NORMAL SEE BELOW Normal [facility] Comment on above: Result Comment: <100 mg/dl OPTIMAL 100 - 129 mg/dl NEAR OR ABOVE OPTIMAL 130 - 159 mg/dl BORDERLINE HIGH 160 - 189 mg/dl HIGH >190 mg/dl VERY HIGH Performed By: #### P REGQNT #### [facility] [address] [address] [address] Josie Sanchez Triglyceride [Mass/Vol] 60 mg/dL Normal <=150 [facility] Comment on above: Performed By: #### P REGQNT #### [facility] [address] [address] [address] Josie Sanchez VLDL CALC 12.0 mg/dL Normal [facility] Comment on above: Performed By: #### P REGQNT #### [facility] [address] [address] [address] Josie Sanchez PROF 14(COMP METB)on 023 Albumin [Mass/Vol] 3.7 g/dL Normal 3.4-5.0 [facility] Comment on above: Performed By: #### RILEY VALERIO #### [facility] [address] [address] [address] Josie Sanchez Albumin/Globulin [Mass ratio] 0.9 {ratio} Normal [facility] Comment on above: Performed By: #### RILEY VALERIO #### [facility] [address] [address] [address] Josie Sanchez ALP [Catalytic activity/Vol] 131 U/L Critically high 46-116 [facility] Comment on above: Performed By: #### Clyde MEANS, UMICRO #### [facility] [address] [place] [address] Dr. Josie Sanchez ALT [Catalytic activity/Vol] 23 U/L Normal 14-59 [facility] Comment on above: Performed By: #### E MIGUELANGEL, UMICRO #### [facility] [address] [place] [address] Dr. Josie Sanchez Anion gap [Moles/Vol] 10.5 mmol/L Normal Th [facility] Comment on above: Performed By: #### Clyde MEANS, UMICRO #### [facility] [address] [place] [address] Dr. Josie Sanchez AST [Catalytic activity/Vol] 18 U/L Normal 15-37 [facility] Comment on above: Performed By: #### Clyde MEANS, UMICRO #### [facility] [address] [place] [address] Dr. Josie Sanchez Bilirubin [Mass/Vol] 0.7 mg/dL Normal 0.2-1.0 [facility] Comment on above: Performed By: #### Clyde MEANS, UMICRO #### [facility] [address] [place] [address] Dr. Josie Sanchez Calcium [Mass/Vol] 8.7 mg/dL Normal 8.5-10.1 [facility] Comment on above: Performed By: #### Clyde MEANS, UMICRO #### [facility] [address] [place] [address] Dr. Josie Sanchez Chloride [Moles/Vol] 103 mmol/L Normal 98-107 [facility] Comment on above: Performed By: #### Clyde MEANS, UMICRO #### [facility] [address] [place] [address] Dr. Josie Sanchez CO2 [Moles/Vol] 30.1 mmol/L Normal 21.0-32.0 [facility] Comment on above: Performed By: #### E YOSELINR, UMICRO #### [facility] [address] [address] [address] Josie Sanchez Creatinine [Mass/Vol] 0.66 mg/dL Normal 0.55-1.02 [facility] Comment on above: Performed By: #### E RUR, UMICRO #### [facility] [address] [address] [address] Josie Sanchez EGFR-AF [place] >60 Normal >=60 [facility] Comment on above: Performed By: #### E RUR, UMICRO #### [facility] [address] [address] [address] Josie Sanchez EGFR-NON AF [place] >60 Normal >=60 [facility] Comment on above: Performed By: #### E RUR, UMICRO #### [facility] [address] [address] [address] Josie Sanchez Globulin (S) [Mass/Vol] 4.3 g/dL Normal T [facility] Comment on above: Performed By: #### E YOSELINR, UMICRO #### [facility] [address] [address] [address] Josie Sanchez Glucose [Mass/Vol] 90 mg/dL Normal 74-106 [facility] Comment on above: Performed By: #### Clyde WYATTR, UMICRO #### [facility] [address] [address] [address] Josie Sanchez Potassium [Moles/Vol] 3.6 mmol/L Normal 3.5-5.1 [facility] Comment on above: Performed By: #### E RUR, UMICRO #### [facility] [address] [address] [address] Josie Sanchez Protein [Mass/Vol] 8.0 g/dL Normal 6.4-8.2 [facility] Comment on above: Performed By: #### E RUR, UMICRO #### [facility] [address] [address] [address] Josie Sanchez Sodium [Moles/Vol] 140 mmol/L Normal 136-145 [facility] Comment on above: Performed By: #### RILEY VALERIO #### [facility] [address] [place] [address] Dr. Josie Sanchez Urea nitrogen [Mass/Vol] 12.0 mg/dL Normal 7.0-18.0 [facility] Comment on above: Performed By: #### RILEY VALERIO #### [facility] [address] [place] [address] Dr. Josie Sanchez Urea nitrogen/Creatinine [Mass ratio] 18.2 mg/mg Normal [facility] Comment on above: Performed By: #### RILEY VALERIO #### [facility] [address] [place] [address] Dr. Josie Sanchez TSHon 08-12-2022 TSH 3.070 uIU/mL Normal 0.358-3.740 [facility] Comment on above: Performed By: #### P REGQNT #### [facility] [address] [place] [address] Dr. Josie Sanchez PREG QUANT HCGon 06-22-2022 HCG QUANT 1 mIU/mL Normal [facility] Comment on above: Performed By: #### RILEY VALERIO #### [facility] [address] [place] [address] Dr. Josie Sanchez HCG RANGE SEE BELOW Normal [facility] Comment on above: Result Comment: 5-50 0.2-1 WEEK 50-500 1-2 WEEKS 100-5,000 2-3 WEEKS 500-10,000 3-4 WEEKS 1,000-50,000 4-5 WEEKS 10,000-100,000 5-6 WEEKS 15,000-200,000 6-8 WEEKS 10,000-100,000 2-3 MONTHS Performed By: #### RILEY VALERIO #### [facility] [address] [place] [address] Dr. Josie Sanchez PREG QUANT HCGon 05-20-2022 HCG QUANT 6 mIU/mL Normal [facility] Comment on above: Performed By: #### P REGQNT #### [facility] [address] [place] [address] Dr. Josie Sanchez HCG RANGE SEE BELOW Normal [facility] Comment on above: Result Comment: 5-50 0.2-1 WEEK 50-500 1-2 WEEKS 100-5,000 2-3 WEEKS 500-10,000 3-4 WEEKS 1,000-50,000 4-5 WEEKS 10,000-100,000 5-6 WEEKS 15,000-200,000 6-8 WEEKS 10,000-100,000 2-3 MONTHS Performed By: #### P REGQNT #### [facility] [address] [place] [address] Dr. Josie Sanchez PREG QUANT HCGon 05-14-2022 HCG QUANT 26 mIU/mL Normal [facility] Comment on above: Performed By: #### P REGQNT #### [facility] [address] [place] [address] Dr. Josie Sanchez HCG RANGE SEE BELOW Normal [facility] Comment on above: Result Comment: 5-50 0.2-1 WEEK 50-500 1-2 WEEKS 100-5,000 2-3 WEEKS 500-10,000 3-4 WEEKS 1,000-50,000 4-5 WEEKS 10,000-100,000 5-6 WEEKS 15,000-200,000 6-8 WEEKS 10,000-100,000 2-3 MONTHS Performed By: #### P REGQNT #### [facility] [address] [place] [address] Dr. Josie Sanchez CBC AUTO DIFFon 05-08-2022 BASO # 0.0 103/ul Normal 0.0-0.1 [facility] Comment on above: Performed By: #### Clyde MEANS UMICRO #### [facility] [address] [place] [address] Dr. Josie Sanchez Basophils/100 WBC (Bld) 0.2 % Normal 0.2-2.0 T [facility] Comment on above: Performed By: #### Clyde MEANS UMICRO #### [facility] [address] [place] [address] Dr. Josie Sanchez EO # 0.0 103/ul Normal 0.0-0.7 [facility] Comment on above: Performed By: #### RILEY VALERIO #### [facility] [address] [place] [address] Dr. Josie Sanchez Eosinophils/100 WBC (Bld) 0.5 % Critically low 0.9-7. 0 [facility] Comment on above: Performed By: #### RILEY VALERIO #### [facility] [address] [place] [address] Dr. Josie Sanchez Erythrocyte distribution width (RBC) [Ratio] 12.8 % Normal 11.0-15.0 [facility] Comment on above: Performed By: #### RILEY VALERIO #### [facility] [address] [place] [address] Dr. Josie Sanchez Hematocrit (Bld) [Volume fraction] 41.0 % Normal 36.0-48.0 [facility] Comment on above: Performed By: #### RILEY VALERIO #### [facility] [address] [place] [address] Dr. Josie Sanchez Hemoglobin (Bld) [Mass/Vol] 13.4 g/dL Normal 12.0-16.0 [facility] Comment on above: Performed By: #### RILEY VALERIO #### [facility] [address] [place] [address] Dr. Josie Sanchez IG # 0.02 10e3/ul Normal 0.00-0.03 [facility] Comment on above: Performed By: #### KIAN VALERIORO #### [facility] [address] [place] [address] Dr. Josie Sanchez IG % 0.3 % Normal 0.0-0.5 [facility] Comment on above: Performed By: #### RILEY VALERIO #### [facility] [address] [place] [address] Dr. Josie Sanchez LYMPH # 1.6 103/ul Normal 1.2-3.8 [facility] Comment on above: Performed By: #### RILEY VALERIO #### [facility] [address] [place] [address] Dr. Josie Sanchez Lymphocytes/100 WBC (Bld) 27.1 % Normal 20.5-60.0 [facility] Comment on above: Performed By: #### Clyde MEANS UMICRO #### [facility] [address] [place] [address] Dr. Josie Sanchez MANUAL DIFF REQ NO Normal [facility] Comment on above: Performed By: #### Clyde MEANS UMICRO #### [facility] [address] [place] [address] Dr. Josie Sanchez MCH (RBC) [Entitic mass] 29.3 pg Normal 26.7-34.0 [facility] Comment on above: Performed By: #### Clyde MEANS UMICRO #### [facility] [address] [place] [address] Dr. Josie Sanchez MCHC (RBC) [Mass/Vol] 32.7 g/dL Normal 29.9-35.2 [facility] Comment on above: Performed By: #### Clyde MEANS UMICRO #### [facility] [address] [place] [address] Dr. Josie Sanchez MCV (RBC) [Entitic vol] 89.5 fL Normal 81.0-99.0 [facility] Comment on above: Performed By: #### Clyde MEANS UMICRO #### [facility] [address] [place] [address] Dr. Josie Sanchez MONO # 0.5 103/ul Normal 0.3-0.8 [facility] Comment on above: Performed By: #### Clyde MEANS ICRO #### [facility] [address] [place] [address] Dr. Josie Sanchez Monocytes/100 WBC (Bld) 8.6 % Normal 1.7-12.0 [facility] Comment on above: Performed By: #### Clyde MEANS, UMICRO #### [facility] [address] [place] [address] Dr. Josie Sanchez NEUT # 3.7 103/ul Normal 1.4-6.5 [facility] Comment on above: Performed By: #### RILEY VALERIO #### [facility] [address] [place] [address] Dr. Josie Sanchez Neutrophils/100 WBC (Bld) 63.3 % Normal 43.0-75.0 [facility] Comment on above: Performed By: #### RILEY VALERIO #### [facility] [address] [place] [address] Dr. Josie Sanchez Platelet mean volume (Bld) [Entitic vol] 9.8 fL Normal 9.5-13.5 [facility] Comment on above: Performed By: #### RILEY VALERIO #### [facility] [address] [place] [address] Dr. Josie Sanchez PLT 238 103/ul Normal 150-450 [facility] Comment on above: Performed By: #### RILEY VALERIO #### [facility] [address] [place] [address] Dr. Josie Sanchez RBC 4.58 106/ul Normal 4.20-5.40 [facility] Comment on above: Performed By: #### KIAN VALERIORO #### [facility] [address] [place] [address] Dr. Josie Sanchez WBC 5.8 103/ul Normal 4.0-11.0 [facility] Comment on above: Performed By: #### KIAN VALERIORO #### [facility] [address] [place] [address] Dr. Josie Sanchez PREG QUANT HCGon 05-08-2022 HCG QUANT 2335 mIU/mL Normal [facility] Comment on above: Performed By: #### P REGQNT #### [facility] [address] [place] [address] Dr. Josie Sanchez HCG RANGE SEE BELOW Normal [facility] Comment on above: Result Comment: 5-50 0.2-1 WEEK 50-500 1-2 WEEKS 100-5,000 2-3 WEEKS 500-10,000 3-4 WEEKS 1,000-50,000 4-5 WEEKS 10,000-100,000 5-6 WEEKS 15,000-200,000 6-8 WEEKS 10,000-100,000 2-3 MONTHS Performed By: #### P REGQNT #### [facility] [address] [place] [address] Dr. Josie Sanchez CBC AUTO DIFFon 05-07-2022 BASO # 0.0 103/ul Normal 0.0-0.1 [facility] Comment on above: Performed By: #### E MIGUELANGEL UMICRO #### [facility] [address] [place] [address] Dr. Josie Sanchez Basophils/100 WBC (Bld) 0.2 % Normal 0.2-2.0 [facility] Comment on above: Performed By: #### Clyde MEANS UMICRO #### [facility] [address] [place] [address] Dr. Josie Sanchez EO # 0.0 103/ul Normal 0.0-0.7 [facility] Comment on above: Performed By: #### Clyde MEANS UMICRO #### [facility] [address] [place] [address] Dr. Josie Sanchez Eosinophils/100 WBC (Bld) 0.3 % Critically low 0.9-7. 0 [facility] Comment on above: Performed By: #### Clyde MEANS UMICRO #### [facility] [address] [place] [address] Dr. Josie Sanchez Erythrocyte distribution width (RBC) [Ratio] 12.8 % Normal 11.0-15.0 [facility] Comment on above: Performed By: #### E MIGUELANGEL, UMICRO #### [facility] [address] [place] [address] Dr. Josie Sanchez Hematocrit (Bld) [Volume fraction] 41.2 % Normal 36.0-48.0 [facility] Comment on above: Performed By: #### E MIGUELANGEL, UMICRO #### [facility] [address] [place] [address] Dr. Josie Sanchez Hemoglobin (Bld) [Mass/Vol] 13.3 g/dL Normal 12.0-16.0 [facility] Comment on above: Performed By: #### RILEY VALERIO #### [facility] [address] [place] [address] Dr. Josie Sanchez IG # 0.02 10e3/ul Normal 0.00-0.03 [facility] Comment on above: Performed By: #### RILEY VALERIO #### [facility] [address] [place] [address] Dr. Josie Sanchez IG % 0.3 % Normal 0.0-0.5 [facility] Comment on above: Performed By: #### RILEY VALERIO #### [facility] [address] [place] [address] Dr. Josie Sanchez LYMPH # 1.0 103/ul Critically low 1.2-3.8 [facility] Comment on above: Performed By: #### RILEY VALREIO #### [facility] [address] [place] [address] Dr. Josie Sanchez Lymphocytes/100 WBC (Bld) 15.5 % Critically low 20.5-6 0.0 [facility] Comment on above: Performed By: #### RILEY VALERIO #### [facility] [address] [place] [address] Dr. Josie Sanchez MANUAL DIFF REQ NO Normal [facility] Comment on above: Performed By: #### RILEY VALERIO #### [facility] [address] [place] [address] Dr. Josie Sanchez MCH (RBC) [Entitic mass] 28.9 pg Normal 26.7-34.0 [facility] Comment on above: Performed By: #### RILEY VALERIO #### [facility] [address] [place] [address] Dr. Josie Sanchez MCHC (RBC) [Mass/Vol] 32.3 g/dL Normal 29.9-35.2 [facility] Comment on above: Performed By: #### RILEY VALERIO #### [facility] [address] [place] [address] Dr. Josie Sanchez MCV (RBC) [Entitic vol] 89.6 fL Normal 81.0-99.0 [facility] Comment on above: Performed By: #### Clyde MEANS UMICRO #### [facility] [address] [place] [address] Dr. Josie Sanchez MONO # 0.4 103/ul Normal 0.3-0.8 [facility] Comment on above: Performed By: #### Clyde MEANS UMICRO #### [facility] [address] [place] [address] Dr. Josie Sanchez Monocytes/100 WBC (Bld) 6.2 % Normal 1.7-12.0 [facility] Comment on above: Performed By: #### Clyde MEANS UMICRO #### [facility] [address] [place] [address] Dr. Josie Sanchez NEUT # 5.0 103/ul Normal 1.4-6.5 [facility] Comment on above: Performed By: #### Clyde MEANS UMICRO #### [facility] [address] [place] [address] Dr. Josie Sanchez Neutrophils/100 WBC (Bld) 77.5 % Critically high 43.0- 75.0 [facility] Comment on above: Performed By: #### Clyde MEANS UMICRO #### [facility] [address] [place] [address] Dr. Josie Sanchez Platelet mean volume (Bld) [Entitic vol] 10.2 fL Normal 9.5-13.5 [facility] Comment on above: Performed By: #### Clyde MEANS UMICRO #### [facility] [address] [place] [address] Dr. Josie Sanchez PLT 237 103/ul Normal 150-450 [facility] Comment on above: Performed By: #### Clyde MEANS UMICRO #### [facility] [address] [place] [address] Dr. Josie Sanchez RBC 4.60 106/ul Normal 4.20-5.40 [facility] Comment on above: Performed By: #### KIAN VALERIORO #### [facility] [address] [place], [place] [address] Dr. Josie Sanchez WBC 6.5 103/ul Normal 4.0-11.0 [facility] Comment on above: Performed By: #### KIAN VALERIORO #### [facility] [address] [address] [address] Josie Sanchez [facility] SARS-CoV-2 (COVID-19) RNA ALEXA+probe Ql (Unsp spec) Not detected Normal NOT DETECTED [facility] Comment on above: Result Comment: This test is not yet approved or cleared by the [place] FDA. When there are no FDA-approved or cleared tests available, and other criteria are met, FDA can make tests available under an emergency access mechanism called an Emergency Use Authorization (EUA). The EUA for this test is supported by the [place] of Health and Human Service's (HHS's) declaration [...] symptoms consistent with SARS-CoV-2. Performed By: #### KIAN VALERIORO #### [facility] [address] [place], [place] [address] Dr. Josie Sanchez PREG QUANT HCGon 05-07-2022 HCG QUANT 2745 mIU/mL Normal [facility] Comment on above: Performed By: #### KIAN VALERIORO #### [facility] [address] [place], [place] [address] Dr. Josie Sanchez HCG RANGE SEE BELOW Normal [facility] Comment on above: Result Comment: 5-50 0.2-1 WEEK 50-500 1-2 WEEKS 100-5,000 2-3 WEEKS 500-10,000 3-4 WEEKS 1,000-50,000 4-5 WEEKS 10,000-100,000 5-6 WEEKS 15,000-200,000 6-8 WEEKS 10,000-100,000 2-3 MONTHS Performed By: #### RILEY VALERIO #### [facility] [address] [place] [address] Dr. Josie Sanchez US PREG TVon 05-05-2022 [...] PEREZ DURBIN Date: 2022-05-05 14:42 Normal [facility] ER URINE PROFILEon 2 Bilirubin Ql (U) Negative Normal NEGATIVE [facility] Comment on above: Performed By: #### RILEY VALERIO #### [facility] [address] [place] [address] Dr. Josie Sanchez Clarity (U) CLEAR Normal CLEAR [facility] Comment on above: Performed By: #### RILEY VALERIO #### [facility] [address] [place] [address] Dr. Josie Sanchez Color (U) YELLOW Normal YELLOW [facility] Comment on above: Performed By: #### RILEY VALERIO #### [facility] [address] [place] [address] Dr. Josie WU A micrscopic examination will be performed if indicated. Normal [facility] Comment on above: Performed By: #### ROBERT VALERIOICRO #### [facility] [address] [place] [address] Dr. Josie Sanchez Glucose Ql (U) Negative Normal NEGATIVE [facility] Comment on above: Performed By: #### Clyde MEANS UMICRO #### [facility] [address] [address] [address] Josie Sanchez Hemoglobin Ql (U) SMALL Abnormal NEGATIVE [facility] Comment on above: Performed By: #### Clyde MEANS UMICRO #### [facility] [address] [place] [address] Dr. Josie Sanchez Ketones Ql (U) 15 mg/dl Abnormal NEGATIVE [facility] Comment on above: Performed By: #### Clyde MEANS UMICRO #### [facility] [address] [place] [address] Dr. Josie Sanchez LEUKOCYTES Negative Normal NEGATIVE [facility] Comment on above: Performed By: #### Clyde MEANS UMICRO #### [facility] [address] [place] [address] Dr. Josie Sanchez Nitrite Ql (U) Negative Normal NEGATIVE [facility] Comment on above: Performed By: #### Clyde MEANS UMICRO #### [facility] [address] [place] [address] Dr. Josie Sanchez pH (U) 6.0 [pH] Normal 5-9 [facility] Comment on above: Performed By: #### Clyde MEANS UMICRO #### [facility] [address] [place] [address] Dr. Josie Sanchez SPEC GRAVITY 1.020 Normal 1.005-<=1.025 [facility] Comment on above: Performed By: #### Clyde MEANS UMICRO #### [facility] [address] [place] [address] Dr. Josie Sanchez UA PROTEIN Negative Normal NEGATIVE/ TRACE [facility] Comment on above: Performed By: #### E RUR, UMICRO #### [facility] [address] [place] [address] Dr. Josie Sanchez UR MICRO IND INDICATED Normal [facility] Comment on above: Performed By: #### E YOSELINR, UMICRO #### [facility] [address] [place] [address] Dr. Josie Sanchez Urobilinogen Qn (U) 0.2 {Fabricio'U}/dL Normal 0.2 - 1. 0 [facility] Comment on above: Performed By: #### E MIGUELANGEL, UMICRO #### [facility] [address] [place] [address] Dr. Josie Sanchez URINE MICROSCOPIC ONLYon BACTERIA NONE SEEN Normal NONE SEEN [facility] Comment on above: Performed By: #### E MIGUELANGEL, UMICRO #### [facility] [address] [place] [address] Dr. Josie Sanchez Bacteria identified Cx Nom (U) NOT INDICATED Normal [facility] Comment on above: Performed By: #### E MIGUELANGEL, UMICRO #### [facility] [address] [place] [address] Dr. Josie Sanchez CAST NONE SEEN Normal NONE SEEN [facility] Comment on above: Performed By: #### E MIGUELANGEL, UMICRO #### [facility] [address] [place] [address] Dr. Josie Sanchez Crystals LM Nom (Urine sed) NONE SEEN Normal NONE SEEN [facility] Comment on above: Performed By: #### E MIGUELANGEL, UMICRO #### [facility] [address] [place] [address] Dr. Josie Sanchez Epithelial cells LM Ql (Urine sed) NONE SEEN Normal NONE SEEN /RARE [facility] Comment on above: Performed By: #### E RUR, UMICRO #### [facility] [address] [place] [address] Dr. Josie Sanchez MUCOUS MODERATE Abnormal NONE SEEN [facility] Comment on above: Performed By: #### E MIGUELANGEL, UMICRO #### [facility] [address] [place] [address] Dr. Josie Sanchez RBC 0-2 Normal 0-2 [facility] Comment on above: Performed By: #### RILEY VALERIO #### [facility] [address] [place] [address] Dr. Josie Sanchez WBC NONE SEEN Normal NONE SEEN [facility] Comment on above: Performed By: #### RILEY VALERIO #### [facility] [address] [place] [address] Dr. Josie Sanchez PREG QUANT HCGon 04-20-2022 HCG QUANT 95519 mIU/mL Normal [facility] Comment on above: Performed By: #### RILEY VALERIO #### [facility] [address] [place] [address] Dr. Josie Sanchez HCG RANGE SEE BELOW Normal [facility] Comment on above: Result Comment: 5-50 0.2-1 WEEK 50-500 1-2 WEEKS 100-5,000 2-3 WEEKS 500-10,000 3-4 WEEKS 1,000-50,000 4-5 WEEKS 10,000-100,000 5-6 WEEKS 15,000-200,000 6-8 WEEKS 10,000-100,000 2-3 MONTHS Performed By: #### RILEY VALERIO #### [facility] [address] [place] [address] Dr. Josei Sanchez HCG-BETA SUBUNIT QUANTon hCG,Beta Subunit,Qnt,Serum <1 Normal [facility] Comment on above: Result Comment: Fema le (Non-) 0 - 5 (Postmenopausal) 0 - 8 . Female () Weeks of Gestation 3 6 - 71 4 10 - 750 5 356 - 8169 6 813 - 46795 7 2505 -995288 8 70045 -[phone] 9 38698 -507476 10 31050 -029377 12 42828 -177762 14 34717 - 58497 15 38963 - 65022 16 6927 - 38514 17 2980 - 50870 18 6766 - 56775 Regina ECLIA methodology Performed By: #### KIAN VALERIORO #### [facility] [address] [place] [address] Dr. Josie Sanchez CBC AUTO DIFFon 02-18-2022 BASO # 0.0 103/ul Normal 0.0-0.1 [facility] Comment on above: Performed By: #### C BC #### [facility] [address] [place] [address] Dr. Josie Sanchez Basophils/100 WBC (Bld) 0.2 % Normal 0.2-2.0 [facility] Comment on above: Performed By: #### C BC #### [facility] [address] [place] [address] Dr. Josie Sanchez EO # 0.1 103/ul Normal 0.0-0.7 [facility] Comment on above: Performed By: #### C BC #### [facility] [address] [place] [address] Dr. Josie Sanchez Eosinophils/100 WBC (Bld) 0.8 % Critically low 0.9-7. 0 [facility] Comment on above: Performed By: #### C BC #### [facility] [address] [place] [address] Dr. Josie Sanchez Erythrocyte distribution width (RBC) [Ratio] 12.5 % Normal 11.0-15.0 [facility] Comment on above: Performed By: #### C BC #### [facility] [address] [place] [address] Dr. Josie Sanchez Hematocrit (Bld) [Volume fraction] 39.5 % Normal 36.0-48.0 [facility] Comment on above: Performed By: #### C BC #### [facility] [address] [place] [address] Dr. Josie Sanchez Hemoglobin (Bld) [Mass/Vol] 13.0 g/dL Normal 12.0-16.0 [facility] Comment on above: Performed By: #### C BC #### [facility] [address] [place] [address] Dr. Josie Sanchez IG # 0.02 10e3/ul Normal 0.00-0.03 [facility] Comment on above: Performed By: #### C BC #### [facility] [address] [place] [address] Dr. Josie Sanchez IG % 0.3 % Normal 0.0-0.5 [facility] Comment on above: Performed By: #### C BC #### [facility] [address] [place] [address] Dr. Josie Sanchez LYMPH # 1.5 103/ul Normal 1.2-3.8 [facility] Comment on above: Performed By: #### C BC #### [facility] [address] [place] [address] Dr. Josie Sanchez Lymphocytes/100 WBC (Bld) 22.9 % Normal 20.5-60.0 [facility] Comment on above: Performed By: #### C BC #### [facility] [address] [place] [address] Dr. Josie Sanchez MANUAL DIFF REQ NO Normal [facility] Comment on above: Performed By: #### C BC #### [facility] [address] [place] [address] Dr. Josie Sanchez MCH (RBC) [Entitic mass] 30.3 pg Normal 26.7-34.0 [facility] Comment on above: Performed By: #### C BC #### [facility] [address] [place] [address] Dr. Josie Sanchez MCHC (RBC) [Mass/Vol] 32.9 g/dL Normal 29.9-35.2 [facility] Comment on above: Performed By: #### C BC #### [facility] [address] [place] [address] Dr. Josie Sanchez MCV (RBC) [Entitic vol] 92.1 fL Normal 81.0-99.0 [facility] Comment on above: Performed By: #### C BC #### [facility] [address] [place] [address] Dr. Josie Sanchez MONO # 0.4 103/ul Normal 0.3-0.8 [facility] Comment on above: Performed By: #### C BC #### [facility] [address] [place] [address] Dr. Josie Sanchez Monocytes/100 WBC (Bld) 5.7 % Normal 1.7-12.0 [facility] Comment on above: Performed By: #### C BC #### [facility] [address] [place] [address] Dr. Josie Sanchez NEUT # 4.6 103/ul Normal 1.4-6.5 [facility] Comment on above: Performed By: #### C BC #### [facility] [address] [place] [address] Dr. Josie Sanchez Neutrophils/100 WBC (Bld) 70.1 % Normal 43.0-75.0 [facility] Comment on above: Performed By: #### C BC #### [facility] [address] [place] [address] Dr. Josie Sanchez Platelet mean volume (Bld) [Entitic vol] 10.0 fL Normal 9.5-13.5 [facility] Comment on above: Performed By: #### C BC #### [facility] [address] [place] [address] Dr. Josie Sanchez PLT 242 103/ul Normal 150-450 [facility] Comment on above: Performed By: #### C BC #### [facility] [address] [place] [address] Dr. Josie Sanchez RBC 4.29 106/ul Normal 4.20-5.40 [facility] Comment on above: Performed By: #### C BC #### [facility] [address] [place] [address] Dr. Josie Sanchez WBC 6.5 103/ul Normal 4.0-11.0 [facility] Comment on above: Performed By: #### C BC #### [facility] [address] [place] [address] Dr. Josie Sanchez LIPID PROFILEon 02-18-2022 CHOL-HDL RATIO NORM SEE BELOW Normal [facility] Comment on above: Result Comment: 3.3 - 4.4 LOW RISK 4.4 - 7.1 AVERAGE RISK 7.1 - 11.0 MODERATE RISK >11.0 HIGH RISK Performed By: #### L IPID, TSH #### [facility] [address] [address] [address] Josie Sanchez Cholesterol [Mass/Vol] 182 mg/dL Normal <=[address] [facility] Comment on above: Performed By: #### L IPID, TSH #### [facility] [address] [address] [address] Josie Sanchez Cholesterol in HDL [Mass/Vol] 40 mg/dL Normal 40-60 [facility] Comment on above: Performed By: #### L IPID, TSH #### [facility] [address] [address] [address] Josie Sanchez Cholesterol in LDL [Mass/Vol] 122.4 mg/dL Normal [facility] Comment on above: Performed By: #### L IPID, TSH #### [facility] [address] [place] [address] Dr. Josie Sanchez Cholesterol.total/Choleste rol in HDL [Mass ratio] 4.6 {ratio} Normal [facility] Comment on above: Performed By: #### L IPID, TSH #### [facility] [address] [address] [address] Josie Sanchez HDL NORMAL > or = 60 mg/dl - LOW CARDIOVASCULAR RISK <40 mg/dl - HIGH CARDIOVASCULAR RISK Normal [facility] Comment on above: Performed By: #### L IPID, TSH #### [facility] [address] [address] [address] Josie Sanchez LDL CALC NORMAL SEE BELOW Normal [facility] Comment on above: Result Comment: <100 mg/dl OPTIMAL 100 - 129 mg/dl NEAR OR ABOVE OPTIMAL 130 - 159 mg/dl BORDERLINE HIGH 160 - 189 mg/dl HIGH >190 mg/dl VERY HIGH Performed By: #### L IPID, TSH #### [facility] [address] [address] [address] Josie Sanchez Triglyceride [Mass/Vol] 98 mg/dL Normal <=150 T [facility] Comment on above: Performed By: #### L IPID, TSH #### [facility] [address] [address] [address] Josie Sanchez VLDL CALC 19.6 mg/dL Normal [facility] Comment on above: Performed By: #### L IPID, TSH #### [facility] [address] [place] [address] Dr. Josie Sanchez PROTIMEon 02-18-2022 INR Coag (PPP) [Relative time] 1.10 {INR} Normal [facility] Comment on above: Performed By: #### P REGQNT #### [facility] [address] [place] [address] Dr. Josie Sanchez INR GUIDELINES SEE BELOW Normal [facility] Comment on above: Result Comment: PAULINA RED INR: 2.0 - 3.0 CONDITIONS NOT LISTED BELOW 2.5 - 3.5 FOR PROSTHETIC HEART VALVE REPLACEMENT 2.5 - 3.5 RECURRENT THROMBOSIS Performed By: #### P REGQNT #### [facility] [address] [place] [address] Dr. Josie Sanchez PT Coag (PPP) [Time] 11.8 s Critically high 9.0-11.6 [facility] Comment on above: Performed By: #### P REGQNT #### [facility] [address] [place] [address] Dr. Josie Sanchez PTTon 02-18-2022 aPTT Coag (Bld) [Time] 29.8 s Normal 22.3-36.2 [facility] Comment on above: Performed By: #### P REGQNT #### [facility] [address] [place] [address] Dr. Josie Sanchez TSHon 02-18-2022 TSH 3.410 uIU/mL Normal 0.358-3.740 [facility] Comment on above: Performed By: #### L IPID, TSH #### [facility] [address] [place] [address] Dr. Josie Sanchez US PELVIS AND TRANSVAGon [...] by: PEREZ DURBIN Date: 2022-02-18 18:56 Normal [facility] Nursing Note - Woundon 08-15 Nursing Note - Wound [id number] 242#3.00CD:127 Normal [facility] Coding Summary.on 08-08-2020 Coding Summary. CODING DATE: 08/08/2020 FINAL [facility] STATUS: Home (Routine DC) PAYOR: Medicaid EA DESCRIPTION 0852 OTHER COMPLICATIONS OF TREATMENT ADMIT [...] Jeannie Nur Date Saved: 08/08/2020 10:31 am [facility] Formson 08-08-2020 Forms [id number] 59#1.00CD:127 Normal [facility] Home Health Recordson 2019 Home Health Records [id number] FD#1.00CD:127 Normal [facility] Ambulatory Clinical Summaryo n 07-26-2020 Ambulatory Clinical Summary {[id number] [id number]}CD:[id number] 8 [facility] Health Recordson 2019 Home Health Records [id number] C7#1.00CD:127 [facility] Progress Note - Woundon 07-09 Progress Note - Wound [id number] 0 [id number] 499#2.00CD:127 [facility] Consent for Treatmenton 07-09 Consent for Treatment [id number] 0 [id number] AA#1.00CD:127 [facility] Multi-Wound Charton 07-25-20 20 Multi-Wound Chart [id number] 158#1.00CD:127 [facility] Nursing Assessment - Woundon 07-25-2020 Nursing Assessment - Wound [id number] 897#1.00CD:127 [facility] Physician Orderon 07-25-2020 Physician Order [id number] 685#1.00CD:127 [facility] Health Recordson 2019 Home Health Records [id number] 41#1.00CD:127 [facility] Health Recordson 2019 Home Health Records [id number] 54#1.00CD:127 [facility] Coding Summary.on 07-12-2020 Coding Summary. 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 However, the narrative phrase printed from the coding software may appear abbreviated, or result in slightly different terminology. Coded By: Aicha Bledsoe CphT Date Saved: 07/12/2020 03:05 pm [facility] Coding Summary. 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 However, the narrative phrase printed from the coding software may appear abbreviated, or result in slightly different terminology. Coded By: Aicha Bledsoe CphT Date Saved: 07/12/2020 03:03 pm [facility] Multi-Wound Charton 07-12-20 20 Multi-Wound Chart [id number] 370#1.00CD:127 [facility] Nursing Assessment - Woundon 07-12-2020 Nursing Assessment - Wound [id number] 955#1.00CD:127 [facility] Nursing Note - Woundon 07-12 Nursing Note - Wound [id number] 616#1.00CD:127 [facility] Consent for Procedure/Surger yon 07-11-2020 Consent for Procedure/Surgery [id number] 413#1.00CD:127 [facility] Consent for Treatmenton Consent for Treatment [id number] 0 [id number] 6A#1.00CD:127 [facility] Home Health Recordson 2019 Home Health Records [id number] A1#1.00CD:127 [facility] Home Health Records [id number] A4#1.00CD:127 [facility] Physician Orderon 07-11-2020 Physician Order [id number] 863#1.00CD:127 [facility] Progress Note - Woundon Progress Note - Wound [id number] 0 [id number] 191#1.00CD:127 [facility] Nursing Note - Woundon 07-02 Nursing Note - Wound [id number] 261#3.00CD:127 [facility] Consent for Procedure/Surger yon 06-28-2020 Consent for Procedure/Surgery [id number] 00#1.00CD:127 [facility] Consent to Photographon 06-10 Consent to Photograph [id number] 1 [id number] 26#1.00CD:127 [facility] HIPAA Privacy Documentson HIPAA Privacy Documents [id number] [id number] 58#1.00CD:127 [facility] Nursing Note - Woundon 06-28 Nursing Note - Wound [id number] 89#1.00CD:127 [facility] Nursing Note - Wound [id number] 17#1.00CD:127 [facility] Consent for Treatmenton 06-09 Consent for Treatment [id number] 0 [id number] DA#1.00CD:127 [facility] Multi-Wound Charton 06-27-20 20 Multi-Wound Chart [id number] 373#1.00CD:127 [facility] Nursing Assessment - Woundon 06-27-2020 Nursing Assessment - Wound [id number] 329#1.00CD:127 [facility] Physician Orderon 06-27-2020 Physician Order [id number] 834#2.00CD:127 [facility] Progress Note - Woundon 06-09 Progress Note - Wound [id number] 0 [id number] 362#1.00CD:127 [facility] HIPAA Privacy Documentson HIPAA Privacy Documents [id number] 020 [id number] 0235#1.00CD:127 [facility] Outside Records Officeon Outside Records Office [id number] 20 [id number] 0704#1.00CD:127 [facility] Vital Signs Date Time Vital Sign Value Performing Clinician Facility 11-20-2022 15:05-0400 Body height 152.4 cm Gloria Hayden Other [facility] Other 11-20-2022 15:05-0400 Body mass index (BMI) [Ratio] 11.72 kg/m2 Gloria Hayden Other [facility] Other 11-20-2022 15:05-0400 Body temperature 97.7 [degF] Gloria Hayden Other [facility] Other 11-20-2022 15:05-0400 Body weight 27.22 kg Gloria Hayden Other [facility] Other 11-20-2022 15:05-0400 Respiratory rate 18 /min Gloria Hayden Other [facility] Other 11-20-2022 15:05-0400 SaO2% (BldA) [Mass fraction] 97 % Gloria Hayden Other [facility] Other Encounters Encounter Date Encounter Type Care Provider Facility Start: 08-23-2023 End: 08-23-2023 ambulatory NORBERT VEGA Not Available Start: 07-07-2023 End: 07-07-2023 ambulatory NORBERT VEGA Not Available Start: 12-21-2022 End: 12-21-[address] NORBERT VEGA . Facility:[facility] Start: 12-18-2022 End: 12-19-[address] NORBERT VEGA . Facility:[facility] Start: 11-20-2022 End: 11-20-2022 ambulatory Gloria Hayden Other [facility] Other Start: 11-20-2022 Office outpatient vi sit [...] laboratory examination DR NORBERT VEGA . [facility] Start: 05-08-2022 End: 05-08-2022 ambulatory [...] Facility:[facility] Payers Date Payer Category Payer Medicaid [id number] 1985 Unknown [id number] .. 0.1.113050.3.579.2.59 1985 Unknown [id number] .16.84 0.1.255631.3.579.259 1985 Unknown [id number] ..[id number] 0.1.513544.3.579.259 1985 Unknown [id number] .16.84 0.1.269532.3.579.259 1985 Unknown [id number] ..[id number] 0.1.038166.3.579.2.59 1985 Unknown [id number] ..[id number] 0.1.983455.3.579.2.593 1985 Unknown [id number] 2.16.84 0.1.759968.3.579.2.593 1985 Unknown [id number] 2.16.84 0.1.405984.3.579.2.593 1985 Unknown [id number] 2.16.84 0.1.859250.3.579.2.593 1985 Unknown [id number] 2.16.84 0.1.535643.3.579.2.593 1985 Unknown [id number] 2.16.84 0.1.342513.3.579.2.593 1985 Unknown [id number] 2.16.84 0.1.224913.3.579.2.593 1985 Unknown [id number] 2.16.84 0.1.413224.3.579.2.593 1985 Unknown [id number] 2.16.84 0.1.989786.3.579.2.593 1985 Unknown [id number] 2.16.84 0.1.891564.3.579.2.593 1985 Unknown [id number] 2.16.84 0.1.367654.3.579.2.593 1985 Unknown [id number] 2.16.84 0.1.181016.3.579.2.593 1985 Unknown [id number] 2.16.84 0.1.683950.3.579.2.593 1985 Unknown [id number] 2.16.84 0.1.660062.3.579.2.593 1985 Unknown [id number] 2.16.84 0.1.579939.3.579.2.593 1985 Unknown [id number] 2.16.84 0.1.848504.3.579.2.1259 1985 Unknown [id number] 2.16.840 .1.693918.3.579.2.1259 1959 Self-pay 1959 Unknown [id number] Social History Date Type Detail Facility Unknown if ever smoked [facility] Other Sex Assigned At Sex Assigned At Bir th [facility] Other Evaluation note 11-20-2022 Note Date & [...] Contact dermatitis home care material was printed [facility] Other Clinical Note 05-08-2022 Note Date & [...] authenticated by: PEREZ DURBIN Date: 2022-05-08 18:03 [facility] Clinical Note 05-08-2022 Note Date & Type Note Facility 05-08-2022 Note OPERATIVE NOTE OPERATION DATE: 05/08/2022 PROCEDURE: Suction D AND C. PREOPERATIVE DIAGNOSIS: 1. Suspected molar during first trimester. 2. Uterine mass approximately 4.5 cm. POSTOPERATIVE DIAGNOSIS: 1. Suspected molar during first trimester. 2. Uterine mass approximately 4.5 cm. 3. Significant large amounts of retained products. SURGEON: Norbert Vega D.O. CONTACT CENTER SPECIALIST: None. BLOOD LOSS: 100 mL. URINE OUTPUT: [...] products of conception were removed using a 9-Yoruba suction curette tip. Excellent hemostasis was noted. The patient tolerated the procedure well. Sponge, lap, and needle counts were correct x 2. All instruments were then removed from the patient's vagina. The patient was taken to the Recovery Room in stable condition. ?? [facility] History general Narrative - Reported Note Date & Type Note Facility History general Narrative - Reported Type Medical History Hypercholesterolemia Medical History Hormone imbalance Medical History Vitamin D deficiency Medical History Iron deficiency Surgical History C section Surgical History oral surgery Surgical History tonsillectomy and adenoidectomy Surgical History D&C 2021 Hospitalization History child [facility] Other Summary Purpose Family History No Family History Records FoundNo Family History Records FoundNo Family History Records Found Advance Directives No Advanced Directives Records FoundNo Advanced Directives Records FoundNo Advanced Directives Records Found Additional Source Comments INFORMATION SOURCE (unrecogn ized section and content) DATE CREATED AUTHOR 08/15/2020 [facility] DATE CREATED AUTHOR AUTHOR'S ORGANIZ ATION 12/22/2022 [facility] DATE CREATED AUTHOR AUTHOR'S ORGANIZ ATION 08/24/2023 [facility] d[facility] Specialists EPIC REASON FOR VISIT (unrecogniz [...] BE BASED ON THE PRIMARY CLINICAL RECORDS. [facility]. provides no warranty or guarantee of the accuracy or completeness of information in this document.
[2023-09-20 12:51] LABS: Basophils Percent Auto 0.2 % (0.2-2.0); Eosinophils Absolute Auto 0.1 10^3/uL (0.0-0.7); Eosinophils Percent Auto 0.8 % (0.9-7.0); Hematocrit 42.3 % (36.0-48.0); Hemoglobin 13.6 g/dL (12.0-16.0); Immature Granulocytes Abs Auto 0.02 10^3/uL (0.00-0.03); Immature Granulocytes Pct Auto 0.3 % (0.0-0.5); Lymphocytes Absolute Auto 1.7 10^3/uL (1.2-3.8); Lymphocytes Percent Auto 26.5 % (20.5-60.0); Mean Corpuscular HGB Conc 32.2 g/dL (29.9-35.2); Mean Corpuscular Hemoglobin 30.1 pg (26.7-34.0); Mean Corpuscular Volume 93.6 fL (81.0-99.0); Mean Platelet Volume 10.8 fL (9.5-13.5); Monocytes Absolute Auto 0.5 10^3/uL (0.3-0.8); Monocytes Percent Auto 7.3 % (1.7-12.0); Neutrophils Absolute Auto 4.3 10^3/uL (1.4-6.5); Neutrophils Percent Auto 64.9 % (43.0-75.0); Platelet Count 220 10^3/uL (150-450); Red Blood Count 4.52 10^6/uL (4.20-5.40); Red Cell Distribution Width 13.4 % (11.0-15.0); White Blood Count 6.5 10^3/uL (4.0-11.0)
== END 2023-09-20 11:33 | disposition home or self-care (01) ==
LOC: US 11:32
PROVIDERS: PCP Family Medicine; Visit Provider Obstetrics & Gynecology
DX: R10.2 Pelvic and perineal pain (principal); D64.9 Anemia, unspecified; N83.292 Other ovarian cyst, left side; N92.6 Irregular menstruation, unspecified
CPT/HCPCS: 36415; 76830; 76856; 85025

== ENCOUNTER 2023-09-27 15:07 | Outpatient (OUT) | payer MEDICAID, SELFPAY ==
--- OUTSIDE RECORDS SUMMARY | 2023-09-27 15:24 | XMS_ITS | CCD ---
Author Name Unknown Address [id number] [place] [address] Organization [facility] Care Team Providers Care Vehicle Washer Name Role Phone Gloria Hayden Unavailable RAY ., DR KUMARI Admitting Unavailable HOY ., DR KUMARI Attending Unavailable HOY ., DR KUMARI Consulting Unavailable HOY ., DR KUMARI Primary Care Unavailable SILVIA ., DR TOUSSAINT Admitting Unavailable SILVIA ., DR TOUSSAINT Consulting Unavailable HOY ., DR KUMARI Primary Care Unavailable SILVIA ., DR TOUSSAINT Attending Unavailable SILVIA ., DR TOUSSAINT Admitting Unavailable HOY ., DR KUMARI Primary Care Unavailable SILVIA ., DR TOUSSAINT Attending Unavailable SILVIA ., DR TOUSSAINT Consulting Unavailable REQUEST, DR NONE LISTED Primary Care Unavaila ble SILVIA ., DR TOUSSAINT Attending Unavailable SILVIA ., DR TOUSSAINT Admitting Unavailable SILVIA ., DR TOUSSAINT Admitting Unavailable SILVIA ., DR TOUSSAINT Consulting Unavailable HOY ., DR KUMARI Primary Care Unavailable SILVIA ., DR TOUSSAINT Attending Unavailable HOY ., DR KUMARI Primary Care Unavailable PAY ., DR JIMENEZ Attending Unavailable PAY ., DR JIMENEZ Admitting Unavailable PAY ., DR JIMENEZ Consulting Unavailable SILVIA ., DR TOUSSAINT Attending Unavailable HOY ., DR KUMARI Primary Care Unavailable SILVIA ., DR TOUSSAINT Admitting Unavailable SILVIA ., DR TOUSSAINT Consulting Unavailable SILVIA ., DR TOUSSAINT Attending Unavailable HOY ., DR KUMARI Primary Care Unavailable SILVIA ., DR TOUSSAINT Admitting Unavailable SILVIA ., DR TOUSSAINT Consulting Unavailable REQUEST, DR NONE LISTED Primary Care Unavaila ble SILVIA ., DR TOUSSAINT Attending Unavailable SILVIA ., DR TOUSSAINT Admitting Unavailable AHDOOT, RENE Consulting Unavailable HOY ., DR KUMARI Admitting Unavailable HOY ., DR KUMARI Attending Unavailable HOY ., DR KUMARI Primary Care Unavailable SILVIA ., DR TOUSSAINT Consulting Unavailable REQUEST, DR NONE LISTED Primary Care Unavaila ble SILVIA ., DR TOUSSAINT Attending Unavailable SILVIA ., DR TOUSSAINT Admitting Unavailable SILVIA ., DR TOUSSAINT Consulting Unavailable REQUEST, DR NONE LISTED Primary Care Unavaila ble SILVIA ., DR TOUSSAINT Attending Unavailable SILVIA ., DR TOUSSAINT Admitting Unavailable SILVIA ., DR TOUSSAINT Consulting Unavailable HOY ., DR KUMARI Primary Care Unavailable SILVIA ., DR TOUSSAINT Admitting Unavailable SILVIA ., DR TOUSSAINT Attending Unavailable SILVIA ., DR TOUSSAINT Admitting Unavailable SILVIA ., DR TOUSSAINT Consulting Unavailable HOY ., DR KUMARI Primary Care Unavailable SILVIA ., DR TOUSSAINT Attending Unavailable SILVIA ., DR TOUSSAINT Attending Unavailable HOY ., DR KUMARI Primary Care Unavailable SILVIA ., DR TOUSSAINT Admitting Unavailable SILVIA ., DR TOUSSAINT Admitting Unavailable HOY ., DR KUMARI Primary Care Unavailable BRENTWOOD, DR PEREZ Luther Consulting Unavailable SILVIA ., DR TOUSSAINT Attending Unavailable SILVIA ., DR TOUSSAINT Consulting Unavailable HOY ., DR KUMARI Primary Care Unavailable BRENTWOOD, DR PEREZ Luther Consulting Unavailable SILVIA ., DR TOUSSAINT Admitting Unavailable SILVIA ., DR TOUSSAINT Attending Unavailable SILVIA ., DR TOUSSAINT Consulting Unavailable SILVIA ., DR TOUSSAINT Admitting Unavailable HOY ., DR KUMARI Primary Care Unavailable BRENTWOOD, DR PEREZ Luther Consulting Unavailable SILVIA ., DR TOUSSAINT Attending Unavailable SILVIA ., DR TOUSSAINT Consulting Unavailable MONIQUE COLEMAN Consulting Unavaila ble SURESH, MONIQUE ONEILL Consulting Unava CLARA Linton Consulting Unavailable SILVIA ., DR TOUSSAINT Admitting Unavailable SILVIA ., DR TOUSSAINT Consulting Unavailable HOY ., DR KUMARI Primary Care Unavailable SILVIA ., DR TOUSSAINT Attending Unavailable SILVIA ., DR TOUSSAINT Consulting Unavailable HOY ., DR KUMARI Primary Care Unavailable SILVIA ., DR TOUSSAINT Attending Unavailable SILVIA ., DR TOUSSAINT Admitting Unavailable SILVIA, NORBERT Attending Unavailable SILVIA, NORBERT Attending Unavailable Quoc Watts MD Primary Care Provider [phone] Allergies Allergy Classification Reported Allergen(s) Allergy Type Date of Onset Reaction(s) Facility (1 source) Penicillin G Drug Allergy throat swelling [facility] [employer] Other (1 source) Cefaclor Drug Allergy [facility] Repository (2 sources) Penicillins Drug allergy (disorder) 01-26-20 16 [facility] Repository (1 source) Penicillins Drug Intolerance 10-21-19 19 Unknown [facility] Work Phone: Medications Current Medications Medication Drug Class(es) Dates Sig (Normalized) Sig (Original) ascorbic acid 100 mg oral tablet (1 source) Vitamin C Ascorbic Acid (vitamin C) 100 MG tablet Take by mouth Daily. 0 Active aspirin 81 mg delayed release oral tablet (2 sources) Platelet Aggregation Inhibitor, Nonsteroidal Anti-inflammatory Drug take 1 tablet by mouth in the morning aspirin 81 MG EC tablet Take 81 mg by mouth in the morning. 0 Active cholecalciferol 0.025 mg oral capsule (2 sources) Vitamin D cholecalciferol (Vitamin D-3) 25 MCG (1000 UT) capsule Take by mouth Daily. 0 Active take 1 tablet by jackie th every twenty-four hours Vitamin D3 50 MCG (2000 UT) 1 tablet Orally Once a day Active DHEA 50 MG (1 source) DHEA 50 MG take 2 Orally daily Active ferrous sulfate 325 mg oral tablet (1 source) ferrous sulfate 325 (65 Fe) MG tablet Take by mouth Daily with meals. 0 Active folic acid 0.4 mg oral tablet (1 source) take 1 tablet by mouth every twenty-four hours Folate 400 MCG 1 tablet Orally Once a day Active Iron (1 source) take 1 tablet by mouth once daily Iron (Ferrous Sulfate) 325 MG 1 tablet Orally Once a day Active 24 hr metFORMIN hydrochloride 500 mg extended release oral tablet (3 sources) Biguanide Start: 06-09-2023 take 1 tablet by mouth once daily at dinner metFORMIN XR (Glucophage-XR) 500 MG 24 hr tablet take 1 tablet by mouth once daily with EVENING MEAL 0 06/09/2023 Active take 1 tablet by jackie th at mealtime, then take 1 tablet by mouth every twenty-four hours metFORMIN, OSM, (Fortamet) 500 MG 24 hr tablet Take 500 mg by mouth in the evening. Take with meals. Do not crush, chew, or split. 0 Active take 1 tablet by jackie th every twenty-four hours metFORMIN HCl 500 MG 1 tablet with a tianna l Orally Once a day Active Multivitamin preparation (1 source) take 1 tablet by mouth once daily Multivitamin - 1 tablet Orally Once a day Active polysaccharide iron complex 391 mg oral capsule (1 source) Start: 09-15-19 End: 12-24-19 24 take 1 capsule by mouth in the morning iron polysaccharides (ProFe) 391.3 (180 Fe) MG capsule Indications: Anemia, unspecified type Take 1 capsule (391.3 mg) by mouth in the morning. 100 capsule 0 09/15/2023 12/24/2023 Active prasterone 10 mg oral capsule (1 source) DHEA 10 MG capsu le Take by mouth. 0 Active predniSONE 20 mg oral tablet (1 source) Start: 11-21-19 take 1 tablet by mouth every twelve hours predniSONE 20 MG 1 tablet Orally bid for 5 day(s) Nov, Active (1 source) Active simvastatin 40 mg oral tablet (3 sources) HMG-CoA Reductase Inhibitor Start: 06-09-20 take 1 tablet by mouth at bedtime simvastatin (Zocor) 40 MG tablet Take 40 mg by mouth at bedtime. 0 06/09/2023 Active Simvastatin 20 M G/5ML suspension Simvastatin 0 Active take 1 tablet by jackie th every twenty-four hours Simvastatin 40 MG 1 tablet in the evenin g Orally Once a day Active Vitamin C 500 MG (1 source) Vitamin C 500 MG as directed Orally Active Problems Active Problems Problem Classification Problem Date Documented Da te Episodic/Chronic Allergic reactions (1 source) Unspecified contact dermatitis, unspecified cause Episodic Anxiety disorders (1 source) Generalized anxiety disorder; Translations: [Generalized anxiety disorder] Onset: 01-15-2023 01-15-2023 Chronic Menstrual disorders (8 sources) Excessive and frequent [...] (4 sources) Other specified postprocedural states; Translations: [OT SPECIFIED POSTPROCEDURAL STATES] Onset: 05-14-2022 Episodic Residual codes; unclassified (1 source) 8 weeks gestation of ; Translations: [8 WEEKS GESTATION OF ] Onset: 05-05-2022 Episodic Spontaneous (1 source) Incomplete spontaneous without complication; Translations: [INCOMPL SPONT AB W/O COMPLICATION] Onset: 05-26-2022 Episodic Results Test Name Value Interpretation Reference Range Facility ALL CBC WITH AUTO DIFFon BASOPHILS ABSOLUTE AUTO 0.0 [facility] Basophils/100 WBC (Bld) 0.2 % 0.2 - 2.0 % [facility] Eosinophils/100 WBC (Bld) 0.8 % Low 0.9 - 7.0 % [facility] Erythrocyte distribution width (RBC) [Ratio] 13.4 % 11.0 - 15.0 % [facility] Hematocrit (Bld) [Volume fraction] 42.3 % 36.0 - 48.0 % [facility] Hemoglobin (Bld) [Mass/Vol] 13.6 g/dL 12.0 - 16.0 g/dL [facility] IMMATURE GRANULOCYTES ABS AUTO 0.02 [facility] Immature granulocytes/100 WBC (Bld) 0.3 % 0.0 - 0.5 % [facility] Interpretation and review of laboratory results Abnormal [facility] LYMPHOCYTES ABSOLUTE AUTO 1.7 [facility] Lymphocytes/100 WBC (Bld) 26.5 % 20 .5 - 60.0 % [facility] MCH (RBC) [Entitic mass] 30.1 pg 26. 7 - 34.0 pg [facility] MCHC (RBC) [Mass/Vol] 32.2 g/dL 29.9 - 35.2 g/dL [facility] MCV (RBC) [Entitic vol] 93.6 fL 81.0 - 99.0 fL [facility] MONOCYTES ABSOLUTE AUTO 0.5 [facility] Monocytes/100 WBC (Bld) 7.3 % 1.7 - 12.0 % [facility] NEUTROPHILS ABSOLUTE AUTO 4.3 [facility] Neutrophils/100 WBC (Bld) 64.9 % 43 .0 - 75.0 % [facility] Platelet mean volume (Bld) [Entitic vol] 10.8 fL 9.5 - 13.5 fL [facility] TBH EO # 0.1 [facility] TB PLT 220 [facility] TB RBC 4.52 [facility] TB WBC 6.5 [facility] PROGESTERONEon 12-19-2022 Progesterone 9.6 ng/mL [facility] Comment on above: Result Comment: Foll icular phase 0.1 - 0.9 Luteal phase 1.8 - 23.9 Ovulation phase 0.1 - 12.0 First trimester 11.0 - 44.3 Second trimester 25.4 - 83.3 Third trimester 58.7 - 214.0 Postmenopausal 0.0 - 0.1 Performed By: #### P ROGES #### [facility] [address] [place] [address] Dr. Josie Sanchez PROGESTERONEon 11-19-2022 Progesterone 6.3 ng/mL Normal [facility] Comment on above: Result Comment: Foll icular phase 0.1 - 0.9 Luteal phase 1.8 - 23.9 Ovulation phase 0.1 - 12.0 First trimester 11.0 - 44.3 Second trimester 25.4 - 83.3 Third trimester 58.7 - 214.0 Postmenopausal 0.0 - 0.1 Performed By: #### P ROGES #### [facility] [address] [place] [address] Dr. Josie Sanchez PREG QUANT HCGon 11-18-2022 HCG QUANT <1 Normal [facility] Comment on above: Performed By: #### P REGQNT #### [facility] [address] [place] [address] Dr. Josie Sanchez HCG RANGE SEE BELOW Normal [facility] Comment on above: Result Comment: 5-50 0.2-1 WEEK 50-500 1-2 WEEKS 100-5,000 2-3 WEEKS 500-10,000 3-4 WEEKS 1,000-50,000 4-5 WEEKS 10,000-100,000 5-6 WEEKS 15,000-200,000 6-8 WEEKS 10,000-100,000 2-3 MONTHS Performed By: #### P REGQNT #### [facility] [address] [place] [address] Dr. Josie Sanchez US PELVIS AND TRANSVAGon US PELVIS AND TRANSVAG EXAM: US PELVIS AND TRANSVAG HISTORY: Excessive menstruation with irregular cycle [...] of a yolk sac as noted by invasive cardiovascular technologist. No significant free pelvic fluid is [...] by: RENE MEYERS Date: 2022-11-16 18:09 [facility] DHEA SERUMon 11-11-2022 Dehydroepiandrosterone (DHEA) 335 ng/dL Normal 31-701 [facility] Comment on above: Performed By: #### RILEY VALERIO #### [facility] [address] [place] [address] Dr. Josie Sanchez DHEA-SULFATEon 11-10-2022 DHEA-Sulfate 251.0 ug/dL Normal 57.3-279.2 [facility] Comment on above: Performed By: #### P REGQNT #### [facility] [address] [place] [address] Dr. Josie Sanchez ESTRADIOLon 11-10-2022 Estradiol 66.1 pg/mL Normal [facility] Comment on above: Result Comment: Adul t Female: Follicular phase 12.5 - 166.0 Ovulation phase 85.8 - 498.0 Luteal phase 43.8 - 211.0 Postmenopausal <6.0 - 54.7 1st trimester 215.0 - >4300.0 [facility] ECLIA methodology Performed By: #### RILEY VALERIO #### [facility] [address] [place] [address] Dr. Josie Sanchez FSHon 11-10-2022 FSH 6.9 mIU/mL Normal [facility] Comment on above: Result Comment: Adul t Female: Follicular phase 3.5 - 12.5 Ovulation phase 4.7 - 21.5 Luteal phase 1.7 - 7.7 Postmenopausal 25.8 - 134.8 Performed By: #### P REGQNT #### [facility] [address] [place] [address] Dr. Josie Sanchez LUTEINIZING HORMONE (LH)on 0 11-10-2022 LH 9.9 mIU/mL Normal [facility] Comment on above: Result Comment: Adul t Female: Follicular phase 2.4 - 12.6 Ovulation phase 14.0 - 95.6 Luteal phase 1.0 - 11.4 Postmenopausal 7.7 - 58.5 Performed By: #### ROBERT VALERIOICRO #### [facility] [address] [place] [address] Dr. Josie Sanchez CBC AUTO DIFFon 11-09-2022 BASO # 0.0 103/ul Normal 0.0-0.1 [facility] Comment on above: Performed By: #### Clyde MEANS UMICRO #### [facility] [address] [place] [address] Dr. Josie Sanchez Basophils/100 WBC (Bld) 0.3 % Normal 0.2-2.0 [facility] Comment on above: Performed By: #### Clyde MEANS UMICRO #### [facility] [address] [place] [address] Dr. Josie Sanchez EO # 0.0 103/ul Normal 0.0-0.7 [facility] Comment on above: Performed By: #### Clyde MEANS UMICRO #### [facility] [address] [place] [address] Dr. Josie Sanchez Eosinophils/100 WBC (Bld) 0.5 % Critically low 0.9-7. 0 [facility] Comment on above: Performed By: #### Clyde MEANS UMICRO #### [facility] [address] [place] [address] Dr. Josie Sanchez Erythrocyte distribution width (RBC) [Ratio] 13.2 % Normal 11.0-15.0 [facility] Comment on above: Performed By: #### RILEY VALERIO #### [facility] [address] [place] [address] Dr. Josie Sanchez Hematocrit (Bld) [Volume fraction] 41.8 % Normal 36.0-48.0 [facility] Comment on above: Performed By: #### RILEY VALERIO #### [facility] [address] [place] [address] Dr. Josie Sanchez Hemoglobin (Bld) [Mass/Vol] 13.7 g/dL Normal 12.0-16.0 [facility] Comment on above: Performed By: #### RILEY VALERIO #### [facility] [address] [place] [address] Dr. Josie Sanchez IG # 0.02 10e3/ul Normal 0.00-0.03 [facility] Comment on above: Performed By: #### RILEY VALERIO #### [facility] [address] [place] [address] Dr. Josie Sanchez IG % 0.3 % Normal 0.0-0.5 [facility] Comment on above: Performed By: #### RILEY VALERIO #### [facility] [address] [place] [address] Dr. Josie Sanchez LYMPH # 1.2 103/ul Normal 1.2-3.8 [facility] Comment on above: Performed By: #### RILEY VALERIO #### [facility] [address] [place] [address] Dr. Josie Sanchez Lymphocytes/100 WBC (Bld) 18.4 % Critically low 20.5-6 0.0 [facility] Comment on above: Performed By: #### KIAN VALERIORO #### [facility] [address] [place] [address] Dr. Josie Sanchez MANUAL DIFF REQ NO Normal [facility] Comment on above: Performed By: #### KIAN VALERIORO #### [facility] [address] [place] [address] Dr. Josie Sanchez MCH (RBC) [Entitic mass] 29.5 pg Normal 26.7-34.0 [facility] Comment on above: Performed By: #### E MIGUELANGEL UMICRO #### [facility] [address] [place] [address] Dr. Josie Sanchez MCHC (RBC) [Mass/Vol] 32.8 g/dL Normal 29.9-35.2 [facility] Comment on above: Performed By: #### E MIGUELANGEL, UMICRO #### [facility] [address] [place] [address] Dr. Josie Sanchez MCV (RBC) [Entitic vol] 89.9 fL Normal 81.0-99.0 [facility] Comment on above: Performed By: #### Clyde MEANS UMICRO #### [facility] [address] [place] [address] Dr. Josie Sanchez MONO # 0.3 103/ul Normal 0.3-0.8 [facility] Comment on above: Performed By: #### Clyde MEANS UMICRO #### [facility] [address] [place] [address] Dr. Josie Sanchez Monocytes/100 WBC (Bld) 5.1 % Normal 1.7-12.0 [facility] Comment on above: Performed By: #### Clyde MEANS, UMICRO #### [facility] [address] [place] [address] Dr. Josie Sanchez NEUT # 4.8 103/ul Normal 1.4-6.5 [facility] Comment on above: Performed By: #### Clyde MEANS, UMICRO #### [facility] [address] [place] [address] Dr. Josie Sanchez Neutrophils/100 WBC (Bld) 75.4 % Critically high 43.0- 75.0 [facility] Comment on above: Performed By: #### E MIGUELANGEL, UMICRO #### [facility] [address] [place] [address] Dr. Josie Sanchez Platelet mean volume (Bld) [Entitic vol] 9.8 fL Normal 9.5-13.5 [facility] Comment on above: Performed By: #### RILEY VALERIO #### [facility] [address] [place] [address] Dr. Josie Sanchez PLT 256 103/ul Normal 150-450 [facility] Comment on above: Performed By: #### RILEY VALERIO #### [facility] [address] [place] [address] Dr. Josie Sanchez RBC 4.65 106/ul Normal 4.20-5.40 [facility] Comment on above: Performed By: #### RILEY VALERIO #### [facility] [address] [place] [address] Dr. Josie Sanchez WBC 6.4 103/ul Normal 4.0-11.0 [facility] Comment on above: Performed By: #### RILEY VALERIO #### [facility] [address] [place] [address] Dr. Josie Sanchez FERRITINon 11-09-2022 Ferritin [Mass/Vol] 42.0 ng/mL Normal 6.2-137.0 [facility] Comment on above: Performed By: #### RILEY VALERIO #### [facility] [address] [place] [address] Dr. Josie Sanchez FREE T4on 11-09-2022 Free T4 [Mass/Vol] 0.87 ng/dL Normal 0.76-1.46 [facility] Comment on above: Performed By: #### KIAN VALERIORO #### [facility] [address] [place] [address] Dr. Josie Sanchez GLYCOHEMOGLOBIN A1Con 2022 ADA RECOMMENDATION SEE BELOW Normal [facility] Comment on above: Result Comment: ADA RECOMMENDED LIMIT 4.0 - 6.0 ADA THERAPEUTIC TARGET < 7.0 ACTION SUGGESTED > 7.0 Performed By: #### RILEY VALERIO #### [facility] [address] [place] [address] Dr. Josie Sanchez Glucose [Mass/Vol] 100 mg/dL Normal [facility] Comment on above: Performed By: #### RILEY VALERIO #### [facility] [address] [place] [address] Dr. Josie Sanchez HbA1c (Bld) [Mass fraction] 5.1 % Normal 4.5-6.2 [facility] Comment on above: Performed By: #### RILEY VALERIO #### [facility] [address] [place] [address] Dr. Josie Sanchez PREG QUANT HCGon 11-09-2022 HCG QUANT <1 Normal [facility] Comment on above: Performed By: #### RILEY VALERIO #### [facility] [address] [place] [address] Dr. Josie Sanchez HCG RANGE SEE BELOW Normal [facility] Comment on above: Result Comment: 5-50 0.2-1 WEEK 50-500 1-2 WEEKS 100-5,000 2-3 WEEKS 500-10,000 3-4 WEEKS 1,000-50,000 4-5 WEEKS 10,000-100,000 5-6 WEEKS 15,000-200,000 6-8 WEEKS 10,000-100,000 2-3 MONTHS Performed By: #### RILEY VALERIO #### [facility] [address] [place] [address] Dr. Josie Sanchez TSHon 11-09-2022 TSH 2.163 uIU/mL Normal 0.358-3.740 [facility] Comment on above: Performed By: #### KIAN VALERIORO #### [facility] [address] [place] [address] Dr. Josie Sanchez PROGESTERONEon 08-29-2022 Progesterone 7.3 ng/mL Normal [facility] Comment on above: Result Comment: Foll icular phase 0.1 - 0.9 Luteal phase 1.8 - 23.9 Ovulation phase 0.1 - 12.0 First trimester 11.0 - 44.3 Second trimester 25.4 - 83.3 Third trimester 58.7 - 214.0 Postmenopausal 0.0 - 0.1 Performed By: #### P DAXA #### [facility] [address] [place] [address] Dr. Josie Sanchez INSULINon 08-13-2022 Insulin 12.5 uIU/mL Normal 2.6-24.9 [facility] Comment on above: Performed By: #### P REGQNT #### [facility] [address] [place] [address] Dr. Josie Sanchez CBC AUTO DIFFon 08-12-2022 BASO # 0.0 103/ul Normal 0.0-0.1 [facility] Comment on above: Performed By: #### RILEY VALERIO #### [facility] [address] [place] [address] Dr. Josie Sanchez Basophils/100 WBC (Bld) 0.2 % Normal 0.2-2.0 [facility] Comment on above: Performed By: #### RILEY VALERIO #### [facility] [address] [place] [address] Dr. Josie Sanchez EO # 0.1 103/ul Normal 0.0-0.7 [facility] Comment on above: Performed By: #### RILEY VALERIO #### [facility] [address] [place] [address] Dr. Josie Sanchez Eosinophils/100 WBC (Bld) 0.8 % Critically low 0.9-7. 0 [facility] Comment on above: Performed By: #### RILEY VALERIO #### [facility] [address] [place] [address] Dr. Josie Sanchez Erythrocyte distribution width (RBC) [Ratio] 14.0 % Normal 11.0-15.0 [facility] Comment on above: Performed By: #### RILEY VALERIO #### [facility] [address] [place] [address] Dr. Josie Sanchez Hematocrit (Bld) [Volume fraction] 39.5 % Normal 36.0-48.0 [facility] Comment on above: Performed By: #### KIAN VALERIORO #### [facility] [address] [place], [place] [id number] Dr. Josie Sanchez Hemoglobin (Bld) [Mass/Vol] 12.7 g/dL Normal 12.0-16.0 [facility] Comment on above: Performed By: #### KIAN VALERIORO #### [facility] [address] [place] [address] Dr. Josie Sanchez IG # 0.02 10e3/ul Normal 0.00-0.03 [facility] Comment on above: Performed By: #### Clyde MEANS UMICRO #### [facility] [address] [place] [address] Dr. Josie Sanchez IG % 0.3 % Normal 0.0-0.5 [facility] Comment on above: Performed By: #### Clyde MEANS UMICRO #### [facility] [address] [place] [address] Dr. Josie Sanchez LYMPH # 1.6 103/ul Normal 1.2-3.8 [facility] Comment on above: Performed By: #### Clyde MEANS ICRO #### [facility] [address] [place] [address] Dr. Josie Sanchez Lymphocytes/100 WBC (Bld) 26.9 % Normal 20.5-60.0 [facility] Comment on above: Performed By: #### Clyde MEANS UMICRO #### [facility] [address] [place] [address] Dr. Josie Sanchez MANUAL DIFF REQ NO Normal [facility] Comment on above: Performed By: #### Clyde MEANS ICRO #### [facility] [address] [place] [address] Dr. Josie Sanchez MCH (RBC) [Entitic mass] 28.3 pg Normal 26.7-34.0 [facility] Comment on above: Performed By: #### Clyde MEANS UMICRO #### [facility] [address] [place] [address] Dr. Josie Sanchez MCHC (RBC) [Mass/Vol] 32.2 g/dL Normal 29.9-35.2 [facility] Comment on above: Performed By: #### Clyde MEANS UMICRO #### [facility] [address] [place] [address] Dr. Josie Sanchez MCV (RBC) [Entitic vol] 88.0 fL Normal 81.0-99.0 [facility] Comment on above: Performed By: #### Clyde MEANS UMICRO #### [facility] [address] [place] [address] Dr. Josie Sanchez MONO # 0.4 103/ul Normal 0.3-0.8 [facility] Comment on above: Performed By: #### Clyde MEANS UMICRO #### [facility] [address] [place] [address] Dr. Josie Sanchez Monocytes/100 WBC (Bld) 7.1 % Normal 1.7-12.0 [facility] Comment on above: Performed By: #### Clyde MEANS UMICRO #### [facility] [address] [place] [address] Dr. Josie Sanchez NEUT # 3.8 103/ul Normal 1.4-6.5 [facility] Comment on above: Performed By: #### Clyde MEANS UMICRO #### [facility] [address] [place] [address] Dr. Josie Sanchez Neutrophils/100 WBC (Bld) 64.7 % Normal 43.0-75.0 [facility] Comment on above: Performed By: #### Clyde MEANS UMICRO #### [facility] [address] [place] [address] Dr. Josie Sanchez Platelet mean volume (Bld) [Entitic vol] 10.1 fL Normal 9.5-13.5 [facility] Comment on above: Performed By: #### Clyde MEANS UMICRO #### [facility] [address] [place] [address] Dr. Josie Sanchez PLT 211 103/ul Normal 150-450 [facility] Comment on above: Performed By: #### Clyde MEANS UMICRO #### [facility] [address] [place] [address] Dr. Josie Sanchez RBC 4.49 106/ul Normal 4.20-5.40 [facility] Comment on above: Performed By: #### RILEY VALERIO #### [facility] [address] [place] [address] Dr. Josie Sanchez WBC 5.9 103/ul Normal 4.0-11.0 [facility] Comment on above: Performed By: #### KIAN VALERIORO #### [facility] [address] [place] [address] Dr. Josie Sanchez FREE THYROXINE INDEX T7on FTI 2.63 Normal 1.30-4.50 [facility] Comment on above: Performed By: #### RILEY VALERIO #### [facility] [address] [place] [address] Dr. Josie Sanchez T3U 35.0 % Normal 30.0-39.0 [facility] Comment on above: Performed By: #### KIAN VALERIORO #### [facility] [address] [place] [address] Dr. Josie Sanchez T4 [Mass/Vol] 7.50 ug/dL Normal 4.80-13.90 [facility] Comment on above: Performed By: #### KIAN VALERIORO #### [facility] [address] [place] [address] Dr. Josie Sanchez GLYCOHEMOGLOBIN A1Con 2022 ADA RECOMMENDATION SEE BELOW Normal The [facility] Comment on above: Result Comment: ADA RECOMMENDED LIMIT 4.0 - 6.0 ADA THERAPEUTIC TARGET < 7.0 ACTION SUGGESTED > 7.0 Performed By: #### KIAN VALERIORO #### [facility] [address] [place] [address] Dr. Josie Sanchez Glucose [Mass/Vol] 111 mg/dL Normal [facility] Comment on above: Performed By: #### KIAN VALERIORO #### [facility] [address] [place] [address] Dr. Josie Sanchez HbA1c (Bld) [Mass fraction] 5.5 % Normal 4.5-6.2 [facility] Comment on above: Performed By: #### E RILEY MEANS #### [facility] [address] [address] [address] Josie Sanchez IRONon 08-12-2022 Iron [Mass/Vol] 40.0 ug/dL Critically low 50.0-170.0 [facility] Comment on above: Performed By: #### P REGQNT #### [facility] [address] [address] [address] Josie Sanchez LIPID PROFILEon 08-12-2022 CHOL-HDL RATIO NORM SEE BELOW Normal [facility] Comment on above: Result Comment: 3.3 - 4.4 LOW RISK 4.4 - 7.1 AVERAGE RISK 7.1 - 11.0 MODERATE RISK >11.0 HIGH RISK Performed By: #### P REGQNT #### [facility] [address] [address] [address] Josie Sanchez Cholesterol [Mass/Vol] 183 mg/dL Normal <=200 [facility] Comment on above: Performed By: #### P REGQNT #### [facility] [address] [address] [address] Josie Sanchez Cholesterol in HDL [Mass/Vol] 40 mg/dL Normal 40-60 [facility] Comment on above: Performed By: #### P REGQNT #### [facility] [address] [address] [address] Josie Sanchez Cholesterol in LDL [Mass/Vol] 131.0 mg/dL Normal [facility] Comment on above: Performed By: #### P REGQNT #### [facility] [address] [address] [address] Josie Sanchez Cholesterol.total/Choleste rol in HDL [Mass ratio] 4.6 {ratio} Normal [facility] Comment on above: Performed By: #### P REGQNT #### [facility] [address] [address] [address] Josie Sanchez HDL NORMAL > or = 60 mg/dl - LOW CARDIOVASCULAR RISK <40 mg/dl - HIGH CARDIOVASCULAR RISK Normal [facility] Comment on above: Performed By: #### P REGQNT #### [facility] [address] [place] [address] Dr. Josie Sanchez LDL CALC NORMAL SEE BELOW Normal [facility] Comment on above: Result Comment: <100 mg/dl OPTIMAL 100 - 129 mg/dl NEAR OR ABOVE OPTIMAL 130 - 159 mg/dl BORDERLINE HIGH 160 - 189 mg/dl HIGH >190 mg/dl VERY HIGH Performed By: #### P REGQNT #### [facility] [address] [place] [address] Dr. Josie Sanchez Triglyceride [Mass/Vol] 60 mg/dL Normal <=[address] [facility] Comment on above: Performed By: #### P REGQNT #### [facility] [address] [place] [address] Dr. Josie Sanchez VLDL CALC 12.0 mg/dL Normal [facility] Comment on above: Performed By: #### P REGQNT #### [facility] [address] [place] [address] Dr. Josie Sanchez PROF 14(COMP METB)on 023 Albumin [Mass/Vol] 3.7 g/dL Normal 3.4-5.0 [facility] Comment on above: Performed By: #### RILEY VALERIO #### [facility] [address] [place] [address] Dr. Josie Sanchez Albumin/Globulin [Mass ratio] 0.9 {ratio} Normal [facility] Comment on above: Performed By: #### RILEY VALERIO #### [facility] [address] [place] [address] Dr. Josie Sanchez ALP [Catalytic activity/Vol] 131 U/L Critically high 46-116 [facility] Comment on above: Performed By: #### RILEY VALERIO #### [facility] [address] [place] [address] Dr. Josie Sanchez ALT [Catalytic activity/Vol] 23 U/L Normal 14-59 [facility] Comment on above: Performed By: #### RILEY VALERIO #### [facility] [address] [address] [address] Josie Sanchez Anion gap [Moles/Vol] 10.5 mmol/L Normal Th [facility] Comment on above: Performed By: #### Clyde MEANS, UMICRO #### [facility] [address] [address] [address] Josie Sanchez AST [Catalytic activity/Vol] 18 U/L Normal 15-37 [facility] Comment on above: Performed By: #### Clyde MEANS, UMICRO #### [facility] [address] [place] [address] Dr. Josie Sanchez Bilirubin [Mass/Vol] 0.7 mg/dL Normal 0.2-1.0 [facility] Comment on above: Performed By: #### Clyde MEANS, UMICRO #### [facility] [address] [place] [address] Dr. Josie Sanchez Calcium [Mass/Vol] 8.7 mg/dL Normal 8.5-10.1 [facility] Comment on above: Performed By: #### Clyde MEANS, UMICRO #### [facility] [address] [place] [address] Dr. Josie Sanchez Chloride [Moles/Vol] 103 mmol/L Normal 98-107 [facility] Comment on above: Performed By: #### Clyde MEANS, UMICRO #### [facility] [address] [place] [address] Dr. Josie Sanchez CO2 [Moles/Vol] 30.1 mmol/L Normal 21.0-32.0 [facility] Comment on above: Performed By: #### Clyde MEANS, UMICRO #### [facility] [address] [place] [address] Dr. Josie Sanchez Creatinine [Mass/Vol] 0.66 mg/dL Normal 0.55-1.02 [facility] Comment on above: Performed By: #### Clyde MEANS, UMICRO #### [facility] [address] [place] [address] Dr. Josie Sanchez EGFR-AF SLOVENIAN >60 Normal >=60 [facility] Comment on above: Performed By: #### E YOSELINR, UMICRO #### [facility] [address] [place] [address] Dr. Josie Sanchez EGFR-NON AF SLOVENIAN >60 Normal >=60 [facility] Comment on above: Performed By: #### E YOSELINR, UMICRO #### [facility] [address] [place] [address] Dr. Josie Sanchez Globulin (S) [Mass/Vol] 4.3 g/dL Normal T [facility] Comment on above: Performed By: #### E MIGUELANGEL, UMICRO #### [facility] [address] [place] [address] Dr. Josie Sanchez Glucose [Mass/Vol] 90 mg/dL Normal 74-106 [facility] Comment on above: Performed By: #### E MIGUELANGEL, UMICRO #### [facility] [address] [place] [address] Dr. Josie Sanchez Potassium [Moles/Vol] 3.6 mmol/L Normal 3.5-5.1 [facility] Comment on above: Performed By: #### Clyde MEANS UMICRO #### [facility] [address] [place] [address] Dr. Josie Sanchez Protein [Mass/Vol] 8.0 g/dL Normal 6.4-8.2 [facility] Comment on above: Performed By: #### E MIGUELANGEL, UMICRO #### [facility] [address] [place] [address] Dr. Josie Sanchez Sodium [Moles/Vol] 140 mmol/L Normal 136-145 [facility] Comment on above: Performed By: #### E RUJolie, UMICRO #### [facility] [address] [place] [address] Dr. Josie Sanchez Urea nitrogen [Mass/Vol] 12.0 mg/dL Normal 7.0-18.0 [facility] Comment on above: Performed By: #### E RUR, UMICRO #### [facility] [address] [place] [address] Dr. Josie Sanchez Urea nitrogen/Creatinine [Mass ratio] 18.2 mg/mg Normal [facility] Comment on above: Performed By: #### RILEY VALERIO #### [facility] [address] [place] [address] Dr. Josie Sanchez TSHon 08-12-2022 TSH 3.070 uIU/mL Normal 0.358-3.740 [facility] Comment on above: Performed By: #### P REGQNT #### [facility] [address] [place] [address] Dr. Josie Sanchez PREG QUANT HCGon 06-22-2022 HCG QUANT 1 mIU/mL Normal [facility] Comment on above: Performed By: #### RILEY VALERIO #### [facility] [address] [place] [address] Dr. Josie Sanchez HCG RANGE SEE BELOW Normal [facility] Comment on above: Result Comment: 5-50 0.2-1 WEEK 50-500 1-2 WEEKS 100-5,000 2-3 WEEKS 500-10,000 3-4 WEEKS 1,000-50,000 4-5 WEEKS 10,000-100,000 5-6 WEEKS 15,000-200,000 6-8 WEEKS 10,000-100,000 2-3 MONTHS Performed By: #### RILEY VALERIO #### [facility] [address] [place] [address] Dr. Josie Sanchez PREG QUANT HCGon 05-20-2022 HCG QUANT 6 mIU/mL Normal [facility] Comment on above: Performed By: #### P REGQNT #### [facility] [address] [place] [address] Dr. Josie Sanchez HCG RANGE SEE BELOW Normal [facility] Comment on above: Result Comment: 5-50 0.2-1 WEEK 50-500 1-2 WEEKS 100-5,000 2-3 WEEKS 500-10,000 3-4 WEEKS 1,000-50,000 4-5 WEEKS 10,000-100,000 5-6 WEEKS 15,000-200,000 6-8 WEEKS 10,000-100,000 2-3 MONTHS Performed By: #### P REGQNT #### [facility] [address] [place] [address] Dr. Josie Sanchez PREG QUANT HCGon 05-14-2022 HCG QUANT 26 mIU/mL Normal [facility] Comment on above: Performed By: #### P REGQNT #### [facility] [address] [place] [address] Dr. Josie Sanchez HCG RANGE SEE BELOW Normal [facility] Comment on above: Result Comment: 5-50 0.2-1 WEEK 50-500 1-2 WEEKS 100-5,000 2-3 WEEKS 500-10,000 3-4 WEEKS 1,000-50,000 4-5 WEEKS 10,000-100,000 5-6 WEEKS 15,000-200,000 6-8 WEEKS 10,000-100,000 2-3 MONTHS Performed By: #### P REGQNT #### [facility] [address] [place] [address] Dr. Josie Sanchez CBC AUTO DIFFon 05-08-2022 BASO # 0.0 103/ul Normal 0.0-0.1 [facility] Comment on above: Performed By: #### KIAN VALERIORO #### [facility] [address] [place] [address] Dr. Josie Sanchez Basophils/100 WBC (Bld) 0.2 % Normal 0.2-2.[address] [facility] Comment on above: Performed By: #### ROBERT VALERIOICRO #### [facility] [address] [place] [address] Dr. Josie Sanchez EO # 0.0 103/ul Normal 0.0-0.7 [facility] Comment on above: Performed By: #### KIAN VALERIORO #### [facility] [address] [place] [address] Dr. Josie Sanchez Eosinophils/100 WBC (Bld) 0.5 % Critically low 0.9-7. 0 [facility] Comment on above: Performed By: #### ROBERT VALERIOICRO #### [facility] [address] [place] [address] Dr. Josie Sanchez Erythrocyte distribution width (RBC) [Ratio] 12.8 % Normal 11.0-15.0 [facility] Comment on above: Performed By: #### RILEY VALERIO #### [facility] [address] [place] [address] Dr. Josie Sanchez Hematocrit (Bld) [Volume fraction] 41.0 % Normal 36.0-48.0 [facility] Comment on above: Performed By: #### KIAN VALERIORO #### [facility] [address] [place] [address] Dr. Josie Sanchez Hemoglobin (Bld) [Mass/Vol] 13.4 g/dL Normal 12.0-16.0 [facility] Comment on above: Performed By: #### KIAN VALERIORO #### [facility] [address] [place] [address] Dr. Josie Sanchez IG # 0.02 10e3/ul Normal 0.00-0.03 [facility] Comment on above: Performed By: #### KIAN VALERIORO #### [facility] [address] [place] [address] Dr. Josie Sanchez IG % 0.3 % Normal 0.0-0.5 [facility] Comment on above: Performed By: #### KIAN VALERIORO #### [facility] [address] [place] [address] Dr. Josie Sanchez LYMPH # 1.6 103/ul Normal 1.2-3.8 [facility] Comment on above: Performed By: #### KIAN VAELRIORO #### [facility] [address] [place] [address] Dr. Josie Sanchez Lymphocytes/100 WBC (Bld) 27.1 % Normal 20.5-60.0 [facility] Comment on above: Performed By: #### KIAN VALERIORO #### [facility] [address] [place] [address] Dr. Josie Sanchez MANUAL DIFF REQ NO Normal [facility] Comment on above: Performed By: #### E RUR, UMICRO #### [facility] [address] [place] [address] Dr. Josie Sanchez MCH (RBC) [Entitic mass] 29.3 pg Normal 26.7-34.0 [facility] Comment on above: Performed By: #### E YOSELINR, UMICRO #### [facility] [address] [place] [address] Dr. Josie Sanchez MCHC (RBC) [Mass/Vol] 32.7 g/dL Normal 29.9-35.2 [facility] Comment on above: Performed By: #### E YOSELINR, UMICRO #### [facility] [address] [place] [address] Dr. Josie Sanchez MCV (RBC) [Entitic vol] 89.5 fL Normal 81.0-99.0 [facility] Comment on above: Performed By: #### E MIGUELANGEL UMICRO #### [facility] [address] [place] [address] Dr. Josie Sanchez MONO # 0.5 103/ul Normal 0.3-0.8 [facility] Comment on above: Performed By: #### Clyde MEANS UMICRO #### [facility] [address] [place] [address] Dr. Josie Sanchez Monocytes/100 WBC (Bld) 8.6 % Normal 1.7-12.0 [facility] Comment on above: Performed By: #### E MIGUELANGEL, UMICRO #### [facility] [address] [place] [address] Dr. Josie Sanchez NEUT # 3.7 103/ul Normal 1.4-6.5 [facility] Comment on above: Performed By: #### E RUR, UMICRO #### [facility] [address] [place] [address] Dr. Josie Sanchez Neutrophils/100 WBC (Bld) 63.3 % Normal 43.0-75.0 [facility] Comment on above: Performed By: #### E RUR, UMICRO #### [facility] [address] [place] [address] Dr. Josie Sanchez Platelet mean volume (Bld) [Entitic vol] 9.8 fL Normal 9.5-13.5 [facility] Comment on above: Performed By: #### RILEY VALERIO #### [facility] [address] [place] [address] Dr. Josie Sanchez PLT 238 103/ul Normal 150-450 [facility] Comment on above: Performed By: #### IRLEY VALERIO #### [facility] [address] [address] [address] Josie Sanchez RBC 4.58 106/ul Normal 4.20-5.40 [facility] Comment on above: Performed By: #### RILEY VALERIO #### [facility] [address] [place] [address] Dr. Josie Sanchez WBC 5.8 103/ul Normal 4.0-11.0 [facility] Comment on above: Performed By: #### RLIEY VALERIO #### [facility] [address] [place] [address] Dr. Josie Sanchez PREG QUANT HCGon 05-08-2022 HCG QUANT 2335 mIU/mL Normal [facility] Comment on above: Performed By: #### P REGQNT #### [facility] [address] [place] [address] Dr. Josie Sanchez HCG RANGE SEE BELOW Normal [facility] Comment on above: Result Comment: 5-50 0.2-1 WEEK 50-500 1-2 WEEKS 100-5,000 2-3 WEEKS 500-10,000 3-4 WEEKS 1,000-50,000 4-5 WEEKS 10,000-100,000 5-6 WEEKS 15,000-200,000 6-8 WEEKS 10,000-100,000 2-3 MONTHS Performed By: #### P REGQNT #### [facility] [address] [place] [address] Dr. Josie Sanchez CBC AUTO DIFFon 05-07-2022 BASO # 0.0 103/ul Normal 0.0-0.1 [facility] Comment on above: Performed By: #### RILEY VALERIO #### [facility] [address] [place] [address] Dr. Josie Sanchez Basophils/100 WBC (Bld) 0.2 % Normal 0.2-2.0 [facility] Comment on above: Performed By: #### Clyde MEANS UMICRO #### [facility] [address] [place] [address] Dr. Josie Sanchez EO # 0.0 103/ul Normal 0.0-0.7 [facility] Comment on above: Performed By: #### Clyde MEANS UMICRO #### [facility] [address] [place] [address] Dr. Josie Sanchez Eosinophils/100 WBC (Bld) 0.3 % Critically low 0.9-7. 0 [facility] Comment on above: Performed By: #### Clyde MEANS UMICRO #### [facility] [address] [place] [address] Dr. Josie Sanchez Erythrocyte distribution width (RBC) [Ratio] 12.8 % Normal 11.0-15.0 [facility] Comment on above: Performed By: #### Clyde MEANS UMICRO #### [facility] [address] [place] [address] Dr. Josie Sanchez Hematocrit (Bld) [Volume fraction] 41.2 % Normal 36.0-48.0 [facility] Comment on above: Performed By: #### Clyde MEANS UMICRO #### [facility] [address] [place] [address] Dr. Josie Sanchez Hemoglobin (Bld) [Mass/Vol] 13.3 g/dL Normal 12.0-16.0 [facility] Comment on above: Performed By: #### Clyde MEANS UMICRO #### [facility] [address] [place] [address] Dr. Josie Sanchez IG # 0.02 10e3/ul Normal 0.00-0.03 [facility] Comment on above: Performed By: #### Clyde MEANS UMICRO #### [facility] [address] [place] [address] Dr. Josie Sanchez IG % 0.3 % Normal 0.0-0.5 [facility] Comment on above: Performed By: #### KIAN VALERIORO #### [facility] [address] [place] [address] Dr. Josie Sanchez LYMPH # 1.0 103/ul Critically low 1.2-3.8 [facility] Comment on above: Performed By: #### ROBERT VALERIOICRO #### [facility] [address] [place] [address] Dr. Josie Sanchez Lymphocytes/100 WBC (Bld) 15.5 % Critically low 20.5-6 0.0 [facility] Comment on above: Performed By: #### ROBERT VALERIOICRO #### [facility] [address] [place] [address] Dr. Josie Sanchez MANUAL DIFF REQ NO Normal [facility] Comment on above: Performed By: #### ROBERT VALERIOICRO #### [facility] [address] [place] [address] Dr. Josie Sanchez MCH (RBC) [Entitic mass] 28.9 pg Normal 26.7-34.0 [facility] Comment on above: Performed By: #### KIAN VALERIORO #### [facility] [address] [place] [address] Dr. Josie Sanchez MCHC (RBC) [Mass/Vol] 32.3 g/dL Normal 29.9-35.2 [facility] Comment on above: Performed By: #### ROBERT VALERIOICRO #### [facility] [address] [place] [address] Dr. Josie Sanchez MCV (RBC) [Entitic vol] 89.6 fL Normal 81.0-99.0 [facility] Comment on above: Performed By: #### Clyde MEANS UMICRO #### [facility] [address] [place] [address] Dr. Josie Sanchez MONO # 0.4 103/ul Normal 0.3-0.8 [facility] Comment on above: Performed By: #### E RUR, UMICRO #### [facility] [address] [place] [address] Dr. Josie Sanchez Monocytes/100 WBC (Bld) 6.2 % Normal 1.7-12.0 [facility] Comment on above: Performed By: #### Clyde MEANS UMICRO #### [facility] [address] [place] [address] Dr. Josie Sanchez NEUT # 5.0 103/ul Normal 1.4-6.5 [facility] Comment on above: Performed By: #### Clyde MEANS UMICRO #### [facility] [address] [place] [address] Dr. Josie Sanchez Neutrophils/100 WBC (Bld) 77.5 % Critically high 43.0- 75.0 [facility] Comment on above: Performed By: #### Clyde MEANS UMICRO #### [facility] [address] [place] [address] Dr. Josie Sanchez Platelet mean volume (Bld) [Entitic vol] 10.2 fL Normal 9.5-13.5 [facility] Comment on above: Performed By: #### Clyde MEANS UMICRO #### [facility] [address] [place] [address] Dr. Josie Sanchez PLT 237 103/ul Normal 150-450 [facility] Comment on above: Performed By: #### Clyde MEANS UMICRO #### [facility] [address] [place] [address] Dr. Josie Sanchez RBC 4.60 106/ul Normal 4.20-5.40 [facility] Comment on above: Performed By: #### Clyde MEANS UMICRO #### [facility] [address] [place] [address] Dr. Josie Sanchez WBC 6.5 103/ul Normal 4.0-11.0 [facility] Comment on above: Performed By: #### Clyde MEANS UMICRO #### [facility] [address] [place] [address] Dr. Josie Sanchez [facility]10 SARS-CoV-2 (COVID-19) RNA ALEXA+probe Ql (Unsp spec) Not detected Normal NOT DETECTED [facility] Comment on above: Result Comment: This test is not yet approved or cleared by the [place] FDA. When there are no FDA-approved or cleared tests available, and other criteria are met, FDA can make tests available under an emergency access mechanism called an Emergency Use Authorization (EUA). The EUA for this test is supported by the [place] of Health and Human Service's (HHS's) declaration [...] SARS-CoV-2. Performed By: #### RILEY VALERIO #### [facility] [address] [place] [address] Dr. Josie Sanchez PREG QUANT HCGon 05-07-2022 HCG QUANT 2745 mIU/mL Normal [facility] Comment on above: Performed By: #### RILEY VALERIO #### [facility] [address] [address] [address] Josie Sanchez HCG RANGE SEE BELOW Normal [facility] Comment on above: Result Comment: 5-50 0.2-1 WEEK 50-500 1-2 WEEKS 100-5,000 2-3 WEEKS 500-10,000 3-4 WEEKS 1,000-50,000 4-5 WEEKS 10,000-100,000 5-6 WEEKS 15,000-200,000 6-8 WEEKS 10,000-100,000 2-3 MONTHS Performed By: #### RILEY VALERIO #### [facility] [address] [place] [address] Dr. Josie Sanchez US PREG TVon 05-05-2022 [...] PEREZ DURBIN Date: 2022-05-05 14:42 Normal [facility] ER URINE PROFILEon 2 Bilirubin Ql (U) Negative Normal NEGATIVE [facility] Comment on above: Performed By: #### Clyde MEANS UMICRO #### [facility] [address] [place] [address] Dr. Josie Sanchez Clarity (U) CLEAR Normal CLEAR [facility] Comment on above: Performed By: #### Clyde MEANS UMICRO #### [facility] [address] [place] [address] Dr. Josie Sanchez Color (U) YELLOW Normal YELLOW [facility] Comment on above: Performed By: #### Clyde MEANS UMICRO #### [facility] [address] [place] [address] Dr. Josie Sanchez ERUPAMELA A micrscopic examination will be performed if indicated. Normal [facility] Comment on above: Performed By: #### ROBERT VALERIOICRO #### [facility] [address] [place] [address] Dr. Josie Sanchez Glucose Ql (U) Negative Normal NEGATIVE [facility] Comment on above: Performed By: #### Clyde MEANS UMICRO #### [facility] [address] [place] [address] Dr. Josie Sanchez Hemoglobin Ql (U) SMALL Abnormal NEGATIVE [facility] Comment on above: Performed By: #### Clyde MEANS UMICRO #### [facility] [address] [place] [address] Dr. Josie Sanchez Ketones Ql (U) 15 mg/dl Abnormal NEGATIVE [facility] Comment on above: Performed By: #### Clyde MEANS UMICRO #### [facility] [address] [place] [address] Dr. Josie Sanchez LEUKOCYTES Negative Normal NEGATIVE [facility] Comment on above: Performed By: #### Clyde MEANS UMICRO #### [facility] [address] [place] [address] Dr. Josie Sanchez Nitrite Ql (U) Negative Normal NEGATIVE [facility] Comment on above: Performed By: #### Clyde MEANS UMICRO #### [facility] [address] [place] [address] Dr. Josie Sanchez pH (U) 6.0 [pH] Normal 5-9 [facility] Comment on above: Performed By: #### Clyde MEANS UMICRO #### [facility] [address] [place] [address] Dr. Josie Sanchez SPEC GRAVITY 1.020 Normal 1.005-<=1.02 5 [facility] Comment on above: Performed By: #### Clyde MEANS UMICRO #### [facility] [address] [place] [address] Dr. Josie Sanchez UA PROTEIN Negative Normal NEGATIVE/ TRACE [facility] Comment on above: Performed By: #### Clyde MEANS UMICRO #### [facility] [address] [place] [address] Dr. Josie Sanchez UR MICRO IND INDICATED Normal [facility] Comment on above: Performed By: #### Clyde MEANS UMICRO #### [facility] [address] [place] [address] Dr. Josie Sanchez Urobilinogen Qn (U) 0.2 {Fabricio'U}/dL Normal 0.2 - 1. 0 [facility] Comment on above: Performed By: #### E RUR, UMICRO #### [facility] [address] [place] [address] Dr. Josie Sanchez URINE MICROSCOPIC ONLYon BACTERIA NONE SEEN Normal NONE SEEN [facility] Comment on above: Performed By: #### E RUR, UMICRO #### [facility] [address] [place] [address] Dr. Josie Sanchez Bacteria identified Cx Nom (U) NOT INDICATED Normal [facility] Comment on above: Performed By: #### E RUR, UMICRO #### [facility] [address] [place] [address] Dr. Josie Sanchez CAST NONE SEEN Normal NONE SEEN [facility] Comment on above: Performed By: #### E RUR, UMICRO #### [facility] [address] [place] [address] Dr. Josie Sanchez Crystals LM Nom (Urine sed) NONE SEEN Normal NONE SEEN [facility] Comment on above: Performed By: #### E RUR, UMICRO #### [facility] [address] [place] [address] Dr. Josie Sanchez Epithelial cells LM Ql (Urine sed) NONE SEEN Normal NONE SEEN /RARE [facility] Comment on above: Performed By: #### E RUR, UMICRO #### [facility] [address] [place] [address] Dr. Josie Sanchez MUCOUS MODERATE Abnormal NONE SEEN [facility] Comment on above: Performed By: #### E RUR, UMICRO #### [facility] [address] [place] [address] Dr. Josie Sanchez RBC 0-2 Normal 0-2 [facility] Comment on above: Performed By: #### E RUR, UMICRO #### [facility] [address] [place] [address] Dr. Josie Sanchez WBC NONE SEEN Normal NONE SEEN [facility] Comment on above: Performed By: #### E RUR, UMICRO #### [facility] [address] [place] [address] Dr. Josie Sanchez PREG QUANT HCGon 04-20-2022 HCG QUANT 68819 mIU/mL Normal [facility] Comment on above: Performed By: #### RILEY VALERIO #### [facility] [address] [place] [address] Dr. Josie Sanchez HCG RANGE SEE BELOW Normal [facility] Comment on above: Result Comment: 5-50 0.2-1 WEEK 50-500 1-2 WEEKS 100-5,000 2-3 WEEKS 500-10,000 3-4 WEEKS 1,000-50,000 4-5 WEEKS 10,000-100,000 5-6 WEEKS 15,000-200,000 6-8 WEEKS 10,000-100,000 2-3 MONTHS Performed By: #### RILEY VALERIO #### [facility] [address] [place] [address] Dr. Josie Sanchez HCG-BETA SUBUNIT QUANTon hCG,Beta Subunit,Qnt,Serum <1 Normal [facility] Comment on above: Result Comment: Fema le (Non-) 0 - 5 (Postmenopausal) 0 - 8 . Female () Weeks of Gestation 3 6 - 71 4 10 - 750 5 217 - 7138 6 158 - 72910 7 [phone] -[phone] 8 28801 -905856 9 97212 -999302 10 53051 -046413 12 74324 -490812 14 92010 - 63693 15 23828 - 91390 16 3636 - 99239 17 8941 - 10918 18 2765 - 63699 [facility] ECLIA methodology Performed By: #### RILEY VALERIO #### [facility] [address] [place] [address] Dr. Josie Sanchez CBC AUTO DIFFon 02-18-2022 BASO # 0.0 103/ul Normal 0.0-0.1 [facility] Comment on above: Performed By: #### Selma HERBERT #### [facility] [address] [place] [address] Dr. Josie Sanchez Basophils/100 WBC (Bld) 0.2 % Normal 0.2-2.[address] [facility] Comment on above: Performed By: #### C BC #### [facility] [address] [place] [address] Dr. Josie Sanchez EO # 0.1 103/ul Normal 0.0-0.7 [facility] Comment on above: Performed By: #### C BC #### [facility] [address] [place] [address] Dr. Josie Sanchez Eosinophils/100 WBC (Bld) 0.8 % Critically low 0.9-7. 0 [facility] Comment on above: Performed By: #### C BC #### [facility] [address] [place] [address] Dr. Josie Sanchez Erythrocyte distribution width (RBC) [Ratio] 12.5 % Normal 11.0-15.0 [facility] Comment on above: Performed By: #### C BC #### [facility] [address] [place] [address] Dr. Josie Sanchez Hematocrit (Bld) [Volume fraction] 39.5 % Normal 36.0-48.0 [facility] Comment on above: Performed By: #### C BC #### [facility] [address] [place] [address] Dr. Josie Sanchez Hemoglobin (Bld) [Mass/Vol] 13.0 g/dL Normal 12.0-16.0 [facility] Comment on above: Performed By: #### C BC #### [facility] [address] [place] [address] Dr. Josie Sanchez IG # 0.02 10e3/ul Normal 0.00-0.03 [facility] Comment on above: Performed By: #### C BC #### [facility] [address] [place] [address] Dr. Josie Sanchez IG % 0.3 % Normal 0.0-0.5 [facility] Comment on above: Performed By: #### C BC #### [facility] [address] [place] [address] Dr. Josie Sanchez LYMPH # 1.5 103/ul Normal 1.2-3.8 [facility] Comment on above: Performed By: #### C BC #### [facility] [address] [place] [address] Dr. Josie Sanchez Lymphocytes/100 WBC (Bld) 22.9 % Normal 20.5-60.0 [facility] Comment on above: Performed By: #### C BC #### [facility] [address] [address] [address] Josie Sanchez MANUAL DIFF REQ NO Normal [facility] Comment on above: Performed By: #### C BC #### [facility] [address] [place] [address] Dr. Josie Sanchez MCH (RBC) [Entitic mass] 30.3 pg Normal 26.7-34.0 [facility] Comment on above: Performed By: #### C BC #### [facility] [address] [place] [address] Dr. Josie Sanchez MCHC (RBC) [Mass/Vol] 32.9 g/dL Normal 29.9-35.2 [facility] Comment on above: Performed By: #### C BC #### [facility] [address] [place] [address] Dr. Josie Sanchez MCV (RBC) [Entitic vol] 92.1 fL Normal 81.0-99.0 [facility] Comment on above: Performed By: #### C BC #### [facility] [address] [place] [address] Dr. Josie Sanchez MONO # 0.4 103/ul Normal 0.3-0.8 [facility] Comment on above: Performed By: #### C BC #### [facility] [address] [place] [address] Dr. Josie Sanchez Monocytes/100 WBC (Bld) 5.7 % Normal 1.7-12.0 [facility] Comment on above: Performed By: #### C BC #### [facility] [address] [place] [address] Dr. Josie Sanchez NEUT # 4.6 103/ul Normal 1.4-6.5 [facility] Comment on above: Performed By: #### C BC #### [facility] [address] [place] [address] Dr. Josie Sanchez Neutrophils/100 WBC (Bld) 70.1 % Normal 43.0-75.0 [facility] Comment on above: Performed By: #### C BC #### [facility] [address] [place] [address] Dr. Josie Sanchez Platelet mean volume (Bld) [Entitic vol] 10.0 fL Normal 9.5-13.5 [facility] Comment on above: Performed By: #### C BC #### [facility] [address] [place] [address] Dr. Josie Sanchez PLT 242 103/ul Normal 150-450 [facility] Comment on above: Performed By: #### C BC #### [facility] [address] [place] [address] Dr. Josie Sanchez RBC 4.29 106/ul Normal 4.20-5.40 [facility] Comment on above: Performed By: #### C BC #### [facility] [address] [place] [address] Dr. Josie Sanchez WBC 6.5 103/ul Normal 4.0-11.0 [facility] Comment on above: Performed By: #### C BC #### [facility] [address] [place] [address] Dr. Josie Sanchez LIPID PROFILEon 02-18-2022 CHOL-HDL RATIO NORM SEE BELOW Normal [facility] Comment on above: Result Comment: 3.3 - 4.4 LOW RISK 4.4 - 7.1 AVERAGE RISK 7.1 - 11.0 MODERATE RISK >11.0 HIGH RISK Performed By: #### L IPID, TSH #### [facility] [address] [place] [address] Dr. Josie Sanchez Cholesterol [Mass/Vol] 182 mg/dL Normal <=200 Th [facility] Comment on above: Performed By: #### L IPID, TSH #### [facility] [address] [place] [address] Dr. Josie Sanchez Cholesterol in HDL [Mass/Vol] 40 mg/dL Normal 40-60 [facility] Comment on above: Performed By: #### L IPID, TSH #### [facility] [address] [address] [address] Josie Sanchez Cholesterol in LDL [Mass/Vol] 122.4 mg/dL Normal [facility] Comment on above: Performed By: #### L IPID, TSH #### [facility] [address] [place] [address] Dr. Josie Sanchez Cholesterol.total/Choleste rol in HDL [Mass ratio] 4.6 {ratio} Normal [facility] Comment on above: Performed By: #### L IPID, TSH #### [facility] [address] [place] [address] Dr. Josie Sanchez HDL NORMAL > or = 60 mg/dl - LOW CARDIOVASCULAR RISK <40 mg/dl - HIGH CARDIOVASCULAR RISK Normal [facility] Comment on above: Performed By: #### L IPID, TSH #### [facility] [address] [place] [address] Dr. Josie Sanchez LDL CALC NORMAL SEE BELOW Normal [facility] Comment on above: Result Comment: <100 mg/dl OPTIMAL 100 - 129 mg/dl NEAR OR ABOVE OPTIMAL 130 - 159 mg/dl BORDERLINE HIGH 160 - 189 mg/dl HIGH >190 mg/dl VERY HIGH Performed By: #### L IPID, TSH #### [facility] [address] [place] [address] Dr. Josie Sanchez Triglyceride [Mass/Vol] 98 mg/dL Normal <=[address] [facility] Comment on above: Performed By: #### L IPID, TSH #### [facility] [address] [place] [address] Dr. Josie Sanchez VLDL CALC 19.6 mg/dL Normal [facility] Comment on above: Performed By: #### L IPID, TSH #### [facility] [address] [place] [address] Dr. Josie Sanchez PROTIMEon 02-18-2022 INR Coag (PPP) [Relative time] 1.10 {INR} Normal [facility] Comment on above: Performed By: #### P REGQNT #### [facility] [address] [place] [address] Dr. Josie Sanchez INR GUIDELINES SEE BELOW Normal [facility] Comment on above: Result Comment: PAULINA RED INR: 2.0 - 3.0 CONDITIONS NOT LISTED BELOW 2.5 - 3.5 FOR PROSTHETIC HEART VALVE REPLACEMENT 2.5 - 3.5 RECURRENT THROMBOSIS Performed By: #### P REGQNT #### [facility] [address] [place] [address] Dr. Josie Sanchez PT Coag (PPP) [Time] 11.8 s Critically high 9.0-11.6 [facility] Comment on above: Performed By: #### P REGQNT #### [facility] [address] [place] [address] Dr. Josie Sanchez PTTon 02-18-2022 aPTT Coag (Bld) [Time] 29.8 s Normal 22.3-36.2 [facility] Comment on above: Performed By: #### P REGQNT #### [facility] [address] [place] [address] Dr. Josie Sanchez TSHon 02-18-2022 TSH 3.410 uIU/mL Normal 0.358-3.740 [facility] Comment on above: Performed By: #### L IPID, TSH #### [facility] [address] [place] [address] Dr. Josie Sanchez US PELVIS AND TRANSVAGon [...] by: PEREZ DURBIN Date: 2022-02-18 18:56 Normal [facility] Nursing Note - Woundon 08-15 Nursing Note - Wound [id number]#3.00CD:127 [facility] Coding Summary.on 08-08-2020 Coding Summary. CODING DATE: 08/08/2020 FINAL [facility] STATUS: Home (Routine DC) PAYOR: Medicaid [...] Jeannie Nur Date Saved: 08/08/2020 10:31 am [facility] Formson 08-08-2020 Forms [id number] 0459#1.00CD:127 [facility] Home Health Recordson 2019 Home Health Records [id number] 3EFD#1.00CD:127 [facility] Ambulatory Clinical Summaryo n 07-26-2020 Ambulatory Clinical Summary {[id number] -[id number] -33-60-e2-c7}CD:61 [id number] [facility] Home Health Recordson 2019 Home Health Records [id number]#1.00CD:127 [facility] Progress Note - Woundon 07-09 Progress Note - Wound [id number]#2.00CD:127 [facility] Consent for Treatmenton 07-09 Consent for Treatment [id number] AFAA#1.00CD:127 [facility] Multi-Wound Charton 07-25-20 20 Multi-Wound Chart [id number]#1.00CD:127 [facility] Nursing Assessment - Woundon 07-25-2020 Nursing Assessment - Wound [id number]. [id number]#1.00CD:127 [facility] Physician Orderon 07-25-2020 Physician Order [id number]#1.00CD:127 [facility] Home Health Recordson 2019 Home Health Records [id number]#1.00CD:127 [facility] Health Recordson 2019 Home Health Records [id number]#1.00CD:127 [facility] Coding Summary.on 07-12-2020 Coding Summary. 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 However, the narrative phrase printed from the coding software may appear abbreviated, or result in slightly different terminology. Coded By: Aicha Bledsoe CphT Date Saved: 07/12/2020 03:05 pm [facility] Coding Summary. 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 However, the narrative phrase printed from the coding software may appear abbreviated, or result in slightly different terminology. Coded By: Aicha Bledsoe CphT Date Saved: 07/12/2020 03:03 pm [facility] Multi-Wound Charton 07-12-20 20 Multi-Wound Chart [id number]#1.00CD:127 [facility] Nursing Assessment - Woundon 07-12-2020 Nursing Assessment - Wound 170.71.121.11 7.202 [id number] 96806#1.00CD:127 [facility] Nursing Note - Woundon 07-12 Nursing Note - Wound 170.71.121.117.202 [id number] 22177#1.00CD:127 [facility] Consent for Procedure/Surger yon 07-11-2020 Consent for Procedure/Surgery 149.45.122.18.2019 [id number] 28510#1.00CD:127 [facility] Consent for Treatmenton Consent for Treatment 159.140.128.36.202 [id number] B36A#1.00CD:127 [facility] Home Health Recordson 2019 Home Health Records 104.170.192.36.202 [id number] D3A1#1.00CD:127 [facility] Home Health Records 104.170.192.35.202 [id number] B2A4#1.00CD:127 [facility] Physician Orderon 07-11-2020 Physician Order 170.71.121.117.202 [id number] 78657#1.00CD:127 [facility] Progress Note - Woundon Progress Note - Wound 170.71.121.117.202 [id number] 31618#1.00CD:127 [facility] Nursing Note - Woundon 07-02 Nursing Note - Wound 170.71.121.117.202 [id number] 14440#3.00CD:127 [facility] Consent for Procedure/Surger yon 06-28-2020 Consent for Procedure/Surgery 149.45.122.6. [id number] 0200#1.00CD:127 [facility] Consent to Photographon 06-10 Consent to Photograph 149.45.122.6. [id number] 0326#1.00CD:127 [facility] HIPAA Privacy Documentson HIPAA Privacy Documents 149.45.122.6.202 01 [id number] 0158#1.00CD:127 [facility] Nursing Note - Woundon 06-28 Nursing Note - Wound 149.45.122.6.14008 [id number] 0289#1.00CD:127 [facility] Nursing Note - Wound 149.45.122.6. [id number] 0217#1.00CD:127 [facility] Consent for Treatmenton 06-09 Consent for Treatment 159.140.128.34.202 [id number] EEDA#1.00CD:127 [facility] Multi-Wound Charton 06-27-20 20 Multi-Wound Chart 170.71.121.117.202 [id number] 33548#1.00CD:127 [facility] Nursing Assessment - Woundon 06-27-2020 Nursing Assessment - Wound 170.71.121.11 .202 [id number] 81996#1.00CD:127 [facility] Physician Orderon 06-27-2020 Physician Order 170.71.121.117.202 [id number] 28943#2.00CD:127 [facility] Progress Note - Woundon 06-09 Progress Note - Wound 170.71.121.117.202 [id number] 46600#1.00CD:127 [facility] HIPAA Privacy Documentson HIPAA Privacy Documents 170.71.121.100.2 02 [id number] 667424#1.00CD:127 [facility] Outside Records Officeon Outside Records Office 170.71.121.100.20 2 [id number] 415768#1.00CD:127 [facility] Vital Signs Date Time Vital Sign Value Performing Clinician Facility 11-20-2022 15:05-0400 Body height 152.4 cm Gloria Jackelyn Other [facility] Other 11-20-2022 15:05-0400 Body mass index (BMI) [Ratio] 11.72 kg/m2 Gloria Jackelyn Other [facility] Other 11-20-2022 15:05-0400 Body temperature 97.7 [degF] Gloria Jackelyn Other [facility] Other 11-20-2022 15:05-0400 Body weight 27.22 kg Gloria Jackelyn Other [facility] Other 11-20-2022 15:05-0400 Respiratory rate 18 /min Gloria Jackelyn Other [facility] Other 11-20-2022 15:05-0400 SaO2% (BldA) [Mass fraction] 97 % Gloria Jackelyn Other [facility] Other Encounters Encounter Date Encounter Type Care Provider Facility Start: 09-20-2023 Clinisync Result Encounter Norbert Vega DO Work Phone: [facility] Unsolicited Start: 09-20-2023 Clinisync Result Encounter Norbert Silvia DO Work Phone: [facility] External [facility] Unsolicited Start: 08-23-2023 End: 08-23-2023 ambulatory NORBERT VEGA Not Available Start: 07-07-2023 End: 07-07-2023 ambulatory NORBERT VEGA Not Available Start: 12-21-2022 End: 12-21-[address] NORBERT VEGA . Facility:[facility] Start: 12-18-2022 End: 12-19-[address] NORBERT VEGA . Facility:[facility] Start: 11-20-2022 End: 11-20-2022 ambulatory Gloria Hayden Other [facility] Other Start: 11-20-2022 Office outpatient vi sit 15 minutes Gloria Hayden [facility] Start: 11-18-2022 End: 11-19-[address] NORBERT VEGA . Facility:[facility] Start: 11-16-2022 End: 11-17-[address] NORBERT VEGA . Facility:[facility] Start: 11-09-2022 End: 11-10-[address] NORBERT VEGA . Facility:[facility] Start: 08-28-2022 End: 08-29-[address] NORBERT VEGA . Facility:[facility] Start: 08-12-2022 End: 08-13-[address] QUOC WATTS . Facility:[facility] Start: 06-22-2022 End: 06-23-[address] NORBERT VEGA . Facility:[facility] Start: 05-14-2022 End: 06-08-[address] NORBERT VEGA . Facility:[facility] Start: 05-11-2022 Encounter for preprocedural laboratory examination DR NORBERT VEGA . [facility] Start: 05-08-2022 End: 05-08-[address] NORBERT VEGA . Facility:[facility] Start: 05-07-2022 End: 05-08-[address] NORBERT VEGA . Facility:[facility] Start: 05-07-2022 End: 05-08-2022 Encounter for preprocedural laboratory examination DR NORBERT VEGA . Facility:[facility] Start: 05-05-2022 End: 05-06-[address] NORBERT VEGA . Facility:[facility] Start: 05-04-2022 End: 05-04-[address] QUOC WATTS . Facility:[facility] Start: 04-20-2022 End: 04-21-[address] NORBERT VEGA . Facility:[facility] Start: 03-27-[address] NORBERT VEGA . Facili ty:[facility] Start: 03-23-[address] NORBERT VEGA . Facili ty:[facility] Start: 03-12-2022 End: 03-13-[address] NORBERT VEGA . Facility:[facility] Start: 02-18-2022 End: 02-19-[address] QUOC WATTS . Facility:[facility] Procedures Date Procedure Procedure Detail Performing Clinician Start: 09-20-2023 ALL CBC WITH AUTO DIFF Norbert Vega DO Work Phone: Payers Date Payer Category Payer Medicaid [id number] 2022 Medicaid [place] [employer] [id number] 2022-Present [address] [place] [address] [id number] [id number] 1985 Unknown [id number] .1.612891.3.579.259 1985 Unknown [id number] .1.890774.3.579.2.59 1985 Unknown [id number] .1.612332.3.579.259 1985 Unknown [id number] 2.16.840.1.289686.3.579.2.593 1985 Unknown [id number] 2.16.840.1.835124.3.579.2.593 1985 Unknown [id number] 2.16.840.1.798832.3.579.2.593 1985 Unknown [id number] 2.16.840.1.257356.3.579.2.593 1985 Unknown [id number] 2.16.840.1.866313.3.579.2.593 1985 Unknown [id number] 2.16.840.1.742438.3.579.2.593 1985 Unknown [id number] 2.16.840.1.828932.3.579.2.593 1985 Unknown [id number] 2.16840.1.828657.3.579.2.593 1985 Unknown [id number] 2.16840.1.093265.3.579.2.593 1985 Unknown [id number] 2.16840.1.305635.3.579.2.593 1985 Unknown [id number] 2.16.840.1.486317.3.579.2.593 1985 Unknown [id number] 2.16840.1.211948.3.579.2.593 1985 Unknown [id number] 2.16.840.1.749856.3.579.2.593 1985 Unknown [id number] 2.16.840.1.202191.3.579.2.593 1985 Unknown [id number] 2.16.840.1.186572.3.579.2.593 1985 Unknown [id number] 2.16.840.1.661152.3.579.2.593 1985 Unknown [id number] 2.16.840.1.139453.3.579.2.593 1985 Unknown [id number] 2.16.840.1.470952.3.579.2.1259 1985 Unknown [id number] 2.16.840.1.683186.3.579.2.1259 1959 Self-pay 1959 Unknown [id number] Social History Date Type Detail Facility Unknown if ever smoked [facility] Other Start: 12-21-2022 Sex Assigned At [facility] Other Start: 12-21-2022 Tobacco smoking status MSIS Never smoked tobacco [facility] Start: 12-21-2022 Tobacco use and exposure Smokeless tobacco non-user [facility] Start: 08-23-2023 Alcohol intake Current drinke r of alcohol (finding) [facility] Start: 12-21-2022 History of Social function [facility] Start: 01-14-2023 Alcohol Comment caffeine intak e: occasionally [facility] Start: 1985 Sex Assigned At Not on file [facility] Evaluation note 11-20-2022 Note Date & Type [...] Contact dermatitis home care material was printed [facility] Other Clinical Note 05-08-2022 Note Date & [...] authenticated by: PEREZ DURBIN Date: 2022-05-08 18:03 [facility] Clinical Note 05-08-2022 Note Date & Type Note Facility 05-08-2022 Note OPERATIVE NOTE OPERATION DATE: 05/08/2022 PROCEDURE: Suction D AND C. PREOPERATIVE DIAGNOSIS: 1. Suspected molar during first trimester. 2. Uterine mass approximately 4.5 cm. POSTOPERATIVE DIAGNOSIS: 1. Suspected molar during first trimester. 2. Uterine mass approximately 4.5 cm. 3. Significant large amounts of retained products. SURGEON: Norbert Vega D.O. BUSINESS APPLICATIONS MANAGER: None. BLOOD LOSS: 100 mL. URINE OUTPUT: [...] products of conception were removed using a 9-Belarusian suction curette tip. Excellent hemostasis was noted. The patient tolerated the procedure well. Sponge, lap, and needle counts were correct x 2. All instruments were then removed from the patient's vagina. The patient was taken to the Recovery Room in stable condition. ?? [facility] History general Narrative - Reported Note Date & Type Note Facility History general Narrative - Reported Type Medical History Hypercholesterolemia Medical History Hormone imbalance Medical History Vitamin D deficiency Medical History Iron deficiency Surgical History C section Surgical History oral surgery Surgical History tonsillectomy and adenoidectomy Surgical History D&C 2021 Hospitalization History child [facility] Other Summary Purpose Family History No Family History Records FoundNo Family History Records FoundNo Family History Records Found Advance Directives No Advanced Directives Records FoundNo Advanced Directives Records FoundNo Advanced Directives Records Found Additional Source Comments INFORMATION SOURCE (unrecogn ized section and content) DATE CREATED AUTHOR 08/15/2020 [facility] DATE CREATED AUTHOR AUTHOR'S ORGANIZ ATION 12/22/2022 [facility] DATE CREATED AUTHOR AUTHOR'S ORGANIZ ATION 08/24/2023 [facility] EPIC REASON FOR VISIT (unrecogniz ed section and content) HEAT [employer]ASH Care Teams (unrecognized sec tion and content) 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 [facility]. provides no warranty or guarantee of the accuracy or completeness of information in this document.
[2023-09-28 04:11] LABS: Progesterone 7.7 ng/mL (.)
== END 2023-09-27 15:08 | disposition home or self-care (01) ==
LOC: LAB 15:08
PROVIDERS: PCP Family Medicine; Visit Provider Obstetrics & Gynecology
DX: N92.1 Excessive and frequent menstruation with irregular cycle (principal)
CPT/HCPCS: 36415; 84144

== ENCOUNTER 2023-10-18 13:30 | Outpatient (OUT) | payer MEDICAID, SELFPAY ==
[2023-10-19 03:07] LABS: Progesterone 7.6 ng/mL (.)
== END 2023-10-18 13:31 | disposition home or self-care (01) ==
LOC: LAB 13:31
PROVIDERS: PCP Family Medicine; Visit Provider Obstetrics & Gynecology
DX: N92.1 Excessive and frequent menstruation with irregular cycle (principal)
CPT/HCPCS: 36415; 84144

== ENCOUNTER 2023-10-21 15:07 | Outpatient (OUT) | payer MEDICAID, SELFPAY ==
[2023-10-23 04:07] LABS: Progesterone 5.5 ng/mL (.)
== END 2023-10-21 15:08 | disposition home or self-care (01) ==
LOC: LAB 15:08
PROVIDERS: PCP Family Medicine; Visit Provider Obstetrics & Gynecology
DX: N92.1 Excessive and frequent menstruation with irregular cycle (principal)
CPT/HCPCS: 36415; 84144

== ENCOUNTER 2023-11-01 11:43 | Outpatient (OUT) | payer MEDICAID, SELFPAY ==
--- NOTE | 2023-11-01 11:46 | US_ITS ---
The [address] [address] Patient Name: LB ANTONIO MRN: [id number] date: 1985 Sex: F Assigned Patient Location: US Current Patient Location: US Accession/Order Number: [id number] Exam Date: 11/01/2023 11:48 Report Date: 11/01/2023 12:52 At the request of: NORBERT WILLIS Procedure: US pelvis transvaginal EXAMINATION: US pelvis transvaginal HISTORY: complex cyst of left ovary N83.292 COMPARISON: 09/20/2023 FINDINGS: The uterus is normal in size, contour and echotexture measuring 9.0 x 6.0 x 4.4 cm, anteverted. The endometrium measures 12.2 mm, heterogeneous. Area of anechoic echogenicity measuring 1 cm possibly fluid The right ovary measures 3.0 x 2.0 x 2.0 cm. Normal color Doppler flow. Normal follicles/simple cysts The left ovary measures 1.7 x 1.6 x 2.3 cm. Normal color and Doppler flow. Interval resolution of the previously identified complex cyst US/US pelvis transvaginal IMPRESSION: Interval resolution of complex left ovarian cyst Electronically authenticated by: PEREZ DURBIN Date: 11/01/2023 12:52
== END 2023-11-01 11:44 | disposition home or self-care (01) ==
LOC: US 11:43
PROVIDERS: PCP Family Medicine; Visit Provider Obstetrics & Gynecology
DX: N83.292 Other ovarian cyst, left side (principal)
CPT/HCPCS: 76830

== ENCOUNTER 2023-11-18 14:34 | Outpatient (OUT) | payer MEDICAID, SELFPAY ==
--- OUTSIDE RECORDS SUMMARY | 2023-11-18 14:45 | XMS_ITS | CCD ---
Author Organization [facility] Care Team Providers Care Stopperer Assembler Name Role Phone Gloria Hayden Unavailable RAY [...] Unavailable LAZARO ., DR TOUSSAINT Admitting Unavailable AHDOOT, RENE [...] HOY ., DR KUMARI Primary Care Unavailable FINCASTLE, DR PEREZ Luther Consulting Unavailable LAZARO ., DR TOUSSAINT Attending Unavailable LAZARO ., DR TOUSSAINT Consulting Unavailable HOY ., DR KUMARI Primary Care Unavailable FINCASTLE, DR PEREZ Luther Consulting Unavailable LAZARO ., DR TOUSSAINT Admitting Unavailable LAZARO ., DR TOUSSAINT Attending Unavailable LAZARO ., DR TOUSSAINT Consulting Unavailable LAZARO ., DR TOUSSAINT Admitting Unavailable HOY ., DR KUMARI Primary Care Unavailable FINCASTLE, DR PEREZ Luther Consulting Unavailable LAZARO ., [...] Unavailable LAZARO ., DR TOUSSAINT Admitting Unavailable LAZARO, NORBERT Attending Unavailable LAZARO, NORBERT Attending Unavailable Quoc Watts MD Primary Care Provider [phone] Allergies Allergy Classification Reported Allergen(s) Allergy Type Date of Onset Reaction(s) Facility (1 source) Penicillin G Drug Allergy throat swelling [facility] Other (1 source) Cefaclor Drug Allergy [facility] Repository (2 sources) Penicillins Drug allergy (disorder) 01-26-20 16 [facility] (1 source) Penicillins Drug [...] body structures; Translations: [ABNORML FIND DX IMG OTH BODY STRUC] Onset: 11-22-2022 Chronic Ovarian cyst [...] AUTO DIFFon BASOPHILS ABSOLUTE AUTO 0.0 [facility] Basophils/100 WBC (Bld) 0.2 % 0.2 - 2.0 % [facility] Eosinophils/100 WBC (Bld) 0.8 % Low 0.9 - 7.0 % [facility] Erythrocyte distribution width (RBC) [Ratio] 13.4 % 11.0 - 15.0 % [facility] Hematocrit (Bld) [Volume fraction] 42.3 % 36.0 - 48.0 % [facility] Hemoglobin (Bld) [Mass/Vol] 13.6 g/dL 12.0 - 16.0 g/dL [facility] IMMATURE GRANULOCYTES ABS AUTO 0.02 [facility] Immature granulocytes/100 WBC (Bld) 0.3 % 0.0 - 0.5 % [facility] Interpretation and review of laboratory results Abnormal [facility] LYMPHOCYTES ABSOLUTE AUTO 1.7 [facility] Lymphocytes/100 WBC (Bld) 26.5 % 20 .5 - 60.0 % [facility] MCH (RBC) [Entitic mass] 30.1 pg 26. 7 - 34.0 pg [facility] MCHC (RBC) [Mass/Vol] 32.2 g/dL 29.9 - 35.2 g/dL [facility] MCV (RBC) [Entitic vol] 93.6 fL 81.0 - 99.0 fL [facility] MONOCYTES ABSOLUTE AUTO 0.5 [facility] Monocytes/100 WBC (Bld) 7.3 % 1.7 - 12.0 % [facility] NEUTROPHILS ABSOLUTE AUTO 4.3 [facility] Neutrophils/100 WBC (Bld) 64.9 % 43 .0 - 75.0 % [facility] Platelet mean volume (Bld) [Entitic vol] 10.8 fL 9.5 - 13.5 fL [facility] TBH EO # 0.1 [facility] TB PLT 220 [facility] RBC 4.52 [facility] TB WBC 6.5 [facility] PROGESTERONEon 12-19-2022 Progesterone 9.6 ng/mL Normal [facility] Comment on above: Result Comment: Foll icular phase 0.1 - 0.9 Luteal phase 1.8 - 23.9 Ovulation phase 0.1 - 12.0 First trimester 11.0 - 44.3 Second trimester 25.4 - 83.3 Third trimester 58.7 - 214.0 Postmenopausal 0.0 - 0.1 Performed By: #### P MADELINES #### [facility] [address] [place] [address] Dr. Josie Sanchez PROGESTERONEon 11-19-2022 Progesterone 6.3 ng/mL Normal [facility] Comment on above: Result Comment: Foll icular phase 0.1 - 0.9 Luteal phase 1.8 - 23.9 Ovulation phase 0.1 - 12.0 First trimester 11.0 - 44.3 Second trimester 25.4 - 83.3 Third trimester 58.7 - 214.0 Postmenopausal 0.0 - 0.1 Performed By: #### P DAXA #### [facility] [address] [place] [address] Dr. Josie Sanchez PREG QUANT HCGon 11-18-2022 HCG QUANT <1 Normal [facility] Comment on above: Performed By: #### P REGQNT #### [facility] [address] [place] [address] Dr. Josie Sanchez HCG RANGE SEE BELOW Normal [facility] Comment on above: Result Comment: 5-50 0.2-1 WEEK 50-500 1-2 WEEKS 100-5,000 2-3 WEEKS 500-10,000 3-4 WEEKS 1,000-50,000 4-5 WEEKS 10,000-100,000 5-6 WEEKS 15,000-200,000 6-8 WEEKS 10,000-100,000 2-3 MONTHS Performed By: #### P REGQNT #### [facility] [address] [place] [address] Dr. Josie Sanchez US PELVIS AND TRANSVAGon [...] of a yolk sac as noted by mri special procedures technologist. No significant free pelvic fluid is [...] by: RENE MEYERS Date: 2022-11-16 18:09 Normal [facility] DHEA SERUMon 11-11-2022 Dehydroepiandrosterone (DHEA) 335 ng/dL Normal 31-701 [facility] Comment on above: Performed By: #### RILEY VALERIO #### [facility] [address] [place] [address] Dr. Josie Sanchez DHEA-SULFATEon 11-10-2022 DHEA-Sulfate 251.0 ug/dL Normal 57.3-279.2 [facility] Comment on above: Performed By: #### P REGQNT #### [facility] [address] [place] [address] Dr. Josie Sanchez ESTRADIOLon 11-10-2022 Estradiol 66.1 pg/mL Normal [facility] Comment on above: Result Comment: Adul t Female: Follicular phase 12.5 - 166.0 Ovulation phase 85.8 - 498.0 Luteal phase 43.8 - 211.0 Postmenopausal <6.0 - 54.7 1st trimester 215.0 - >4300.0 [facility] ECLIA methodology Performed By: #### RILEY VALERIO #### [facility] [address] [place] [address] Dr. Josie Sanchez FSHon 11-10-2022 FSH 6.9 mIU/mL Normal [facility] Comment on above: Result Comment: Adul t Female: Follicular phase 3.5 - 12.5 Ovulation phase 4.7 - 21.5 Luteal phase 1.7 - 7.7 Postmenopausal 25.8 - 134.8 Performed By: #### P REGQNT #### [facility] [address] [place] [address] Dr. Josie Sanchez LUTEINIZING HORMONE (LH)on 0 11-10-2022 LH 9.9 mIU/mL Normal [facility] Comment on above: Result Comment: Adul t Female: Follicular phase 2.4 - 12.6 Ovulation phase 14.0 - 95.6 Luteal phase 1.0 - 11.4 Postmenopausal 7.7 - 58.5 Performed By: #### RILEY VALERIO #### [facility] [address] [place] [address] Dr. Josie Sanchez CBC AUTO DIFFon 11-09-2022 BASO # 0.0 103/ul Normal 0.0-0.1 [facility] Comment on above: Performed By: #### RILEY VALERIO #### [facility] [address] [place] [address] Dr. Josie Sanchez Basophils/100 WBC (Bld) 0.3 % Normal 0.2-2.0 [facility] Comment on above: Performed By: #### RILEY VALERIO #### [facility] [address] [place] [address] Dr. Josie Sanchez EO # 0.0 103/ul Normal 0.0-0.7 [facility] Comment on above: Performed By: #### KIAN VALERIORO #### [facility] [address] [place] [address] Dr. Josie Sanchez Eosinophils/100 WBC (Bld) 0.5 % Critically low 0.9-7. 0 [facility] Comment on above: Performed By: #### KIAN VALERIORO #### [facility] [address] [place] [address] Dr. Josie Sanchez Erythrocyte distribution width (RBC) [Ratio] 13.2 % Normal 11.0-15.0 [facility] Comment on above: Performed By: #### Clyde MEANS UMICRO #### [facility] [address] [place] [address] Dr. Josie Sanchez Hematocrit (Bld) [Volume fraction] 41.8 % Normal 36.0-48.0 [facility] Comment on above: Performed By: #### Clyde MEANS UMICRO #### [facility] [address] [place] [address] Dr. Josie Sanchez Hemoglobin (Bld) [Mass/Vol] 13.7 g/dL Normal 12.0-16.0 [facility] Comment on above: Performed By: #### Clyde MEANS UMICRO #### [facility] [address] [place] [address] Dr. Josie Sanchez IG # 0.02 10e3/ul Normal 0.00-0.03 [facility] Comment on above: Performed By: #### Clyde MEANS UMICRO #### [facility] [address] [place] [address] Dr. Josie Sanchez IG % 0.3 % Normal 0.0-0.5 [facility] Comment on above: Performed By: #### Clyde MEANS UMICRO #### [facility] [address] [place] [address] Dr. Josie Sanchez LYMPH # 1.2 103/ul Normal 1.2-3.8 [facility] Comment on above: Performed By: #### Clyde MEANS UMICRO #### [facility] [address] [place] [address] Dr. Josie Sanchez Lymphocytes/100 WBC (Bld) 18.4 % Critically low 20.5-6 0.0 [facility] Comment on above: Performed By: #### Clyde MEANS UMICRO #### [facility] [address] [place] [address] Dr. Josie Sanchez MANUAL DIFF REQ NO Normal [facility] Comment on above: Performed By: #### Clyde MEANS UMICRO #### [facility] [address] [place] [address] Dr. Josie Sanchez MCH (RBC) [Entitic mass] 29.5 pg Normal 26.7-34.0 [facility] Comment on above: Performed By: #### ROBERT VALERIOICRO #### [facility] [address] [place] [address] Dr. Josie Sanchez MCHC (RBC) [Mass/Vol] 32.8 g/dL Normal 29.9-35.2 [facility] Comment on above: Performed By: #### Clyde MEANS UMICRO #### [facility] [address] [place] [address] Dr. Josie Sanchez MCV (RBC) [Entitic vol] 89.9 fL Normal 81.0-99.0 [facility] Comment on above: Performed By: #### Clyde MEANS UMICRO #### [facility] [address] [place] [address] Dr. Josie Sanchez MONO # 0.3 103/ul Normal 0.3-0.8 [facility] Comment on above: Performed By: #### Clyde MEANS UMICRO #### [facility] [address] [place] [address] Dr. Josie Sanchez Monocytes/100 WBC (Bld) 5.1 % Normal 1.7-12.0 [facility] Comment on above: Performed By: #### Clyde MEANS UMICRO #### [facility] [address] [place] [address] Dr. Josie Sanchez NEUT # 4.8 103/ul Normal 1.4-6.5 [facility] Comment on above: Performed By: #### Clyde MEANS UMICRO #### [facility] [address] [place] [address] Dr. Josie Sanchez Neutrophils/100 WBC (Bld) 75.4 % Critically high 43.0- 75.0 [facility] Comment on above: Performed By: #### Clyde MEANS UMICRO #### [facility] [address] [place] [address] Dr. Josie Sanchez Platelet mean volume (Bld) [Entitic vol] 9.8 fL Normal 9.5-13.5 [facility] Comment on above: Performed By: #### Clyde MEANS UMICRO #### [facility] [address] [place] [address] Dr. Josie Sanchez PLT 256 103/ul Normal 150-450 [facility] Comment on above: Performed By: #### Clyde MEANS UMICRO #### [facility] [address] [place] [address] Dr. Josie Sanchez RBC 4.65 106/ul Normal 4.20-5.40 [facility] Comment on above: Performed By: #### Clyde MEANS UMICRO #### [facility] [address] [place] [address] Dr. Josie Sanchez WBC 6.4 103/ul Normal 4.0-11.0 [facility] Comment on above: Performed By: #### Clyde MEANS UMICRO #### [facility] [address] [place] [address] Dr. Josie Sanchez FERRITINon 11-09-2022 Ferritin [Mass/Vol] 42.0 ng/mL Normal 6.2-137.0 [facility] Comment on above: Performed By: #### KIAN VALERIORO #### [facility] [address] [place] [address] Dr. Josie Sanchez FREE T4on 11-09-2022 Free T4 [Mass/Vol] 0.87 ng/dL Normal 0.76-1.46 [facility] Comment on above: Performed By: #### Clyde MEANS UMICRO #### [facility] [address] [place] [address] Dr. Josie Sanchez GLYCOHEMOGLOBIN A1Con 2022 ADA RECOMMENDATION SEE BELOW Normal [facility] Comment on above: Result Comment: ADA RECOMMENDED LIMIT 4.0 - 6.0 ADA THERAPEUTIC TARGET < 7.0 ACTION SUGGESTED > 7.0 Performed By: #### Clyde MEANS UMICRO #### [facility] [address] [place] [address] Dr. Josie Sanchez Glucose [Mass/Vol] 100 mg/dL Normal [facility] Comment on above: Performed By: #### RILEY VALERIO #### [facility] [address] [place] [address] Dr. Josie Sanchez HbA1c (Bld) [Mass fraction] 5.1 % Normal 4.5-6.2 [facility] Comment on above: Performed By: #### RILEY VALERIO #### [facility] [address] [place] [address] Dr. Josie Sanchez PREG QUANT HCGon 11-09-2022 HCG QUANT <1 Normal [facility] Comment on above: Performed By: #### RILEY VALERIO #### [facility] [address] [place] [address] Dr. Josie Sanchez HCG RANGE SEE BELOW Normal [facility] Comment on above: Result Comment: 5-50 0.2-1 WEEK 50-500 1-2 WEEKS 100-5,000 2-3 WEEKS 500-10,000 3-4 WEEKS 1,000-50,000 4-5 WEEKS 10,000-100,000 5-6 WEEKS 15,000-200,000 6-8 WEEKS 10,000-100,000 2-3 MONTHS Performed By: #### KIAN VALERIORO #### [facility] [address] [place] [address] Dr. Josie Sanchez TSHon 11-09-2022 TSH 2.163 uIU/mL Normal 0.358-3.740 [facility] Comment on above: Performed By: #### KIAN VALERIORO #### [facility] [address] [place] [address] Dr. Josie Sanchez PROGESTERONEon 08-29-2022 Progesterone 7.3 ng/mL Normal [facility] Comment on above: Result Comment: Foll icular phase 0.1 - 0.9 Luteal phase 1.8 - 23.9 Ovulation phase 0.1 - 12.0 First trimester 11.0 - 44.3 Second trimester 25.4 - 83.3 Third trimester 58.7 - 214.0 Postmenopausal 0.0 - 0.1 Performed By: #### P DAXA #### [facility] [address] [place] [address] Dr. Josie Sanchez INSULINon 08-13-2022 Insulin 12.5 uIU/mL Normal 2.6-24.9 [facility] Comment on above: Performed By: #### P REGQNT #### [facility] [address] [place] [address] Dr. Josie Sanchez CBC AUTO DIFFon 08-12-2022 BASO # 0.0 103/ul Normal 0.0-0.1 [facility] Comment on above: Performed By: #### Clyde MEANS UMICRO #### [facility] [address] [place] [address] Dr. Josie Sanchez Basophils/100 WBC (Bld) 0.2 % Normal 0.2-2.0 [facility] Comment on above: Performed By: #### Clyde MEANS UMICRO #### [facility] [address] [place] [address] Dr. Josie Sanchez EO # 0.1 103/ul Normal 0.0-0.7 [facility] Comment on above: Performed By: #### Clyde MEANS, UMICRO #### [facility] [address] [place] [address] Dr. Josie Sanchez Eosinophils/100 WBC (Bld) 0.8 % Critically low 0.9-7. 0 [facility] Comment on above: Performed By: #### Clyde MEANS, UMICRO #### [facility] [address] [place] [address] Dr. Josie Sanchez Erythrocyte distribution width (RBC) [Ratio] 14.0 % Normal 11.0-15.0 [facility] Comment on above: Performed By: #### Clyde MEANS, UMICRO #### [facility] [address] [place] [address] Dr. Josie Sanchez Hematocrit (Bld) [Volume fraction] 39.5 % Normal 36.0-48.0 [facility] Comment on above: Performed By: #### Clyde MEANS, UMICRO #### [facility] [address] [place] [address] Dr. Josie Sanchez Hemoglobin (Bld) [Mass/Vol] 12.7 g/dL Normal 12.0-16.0 [facility] Comment on above: Performed By: #### RILEY VALERIO #### [facility] [address] [place] [address] Dr. Josie Sanchez IG # 0.02 10e3/ul Normal 0.00-0.03 [facility] Comment on above: Performed By: #### KIAN VALERIORO #### [facility] [address] [place] [address] Dr. Josie Sanchez IG % 0.3 % Normal 0.0-0.5 [facility] Comment on above: Performed By: #### KIAN VALERIORO #### [facility] [address] [place] [address] Dr. Josie Sanchez LYMPH # 1.6 103/ul Normal 1.2-3.8 [facility] Comment on above: Performed By: #### RILEY VALERIO #### [facility] [address] [place] [address] Dr. Josie Sanchez Lymphocytes/100 WBC (Bld) 26.9 % Normal 20.5-60.0 [facility] Comment on above: Performed By: #### RILEY VALERIO #### [facility] [address] [place] [address] Dr. Josie Sanchez MANUAL DIFF REQ NO Normal [facility] Comment on above: Performed By: #### KIAN VALERIORO #### [facility] [address] [place] [address] Dr. Josie Sanchez MCH (RBC) [Entitic mass] 28.3 pg Normal 26.7-34.0 [facility] Comment on above: Performed By: #### KAIN VALERIORO #### [facility] [address] [place] [address] Dr. Josie Sanchez MCHC (RBC) [Mass/Vol] 32.2 g/dL Normal 29.9-35.2 [facility] Comment on above: Performed By: #### KIAN VALERIORO #### [facility] [address] [place] [address] Dr. Josie Sanchez MCV (RBC) [Entitic vol] 88.0 fL Normal 81.0-99.0 [facility] Comment on above: Performed By: #### Clyde MEANS UMICRO #### [facility] [address] [place] [address] Dr. Josie Sanchez MONO # 0.4 103/ul Normal 0.3-0.8 [facility] Comment on above: Performed By: #### Clyde MEANS UMICRO #### [facility] [address] [place] [address] Dr. Josie Sanchez Monocytes/100 WBC (Bld) 7.1 % Normal 1.7-12.0 [facility] Comment on above: Performed By: #### Clyde MEANS UMICRO #### [facility] [address] [place] [address] Dr. Josie Sanchez NEUT # 3.8 103/ul Normal 1.4-6.5 [facility] Comment on above: Performed By: #### Clyde MEANS UMICRO #### [facility] [address] [place] [address] Dr. Josie Sanchez Neutrophils/100 WBC (Bld) 64.7 % Normal 43.0-75.0 [facility] Comment on above: Performed By: #### Clyde MEANS UMICRO #### [facility] [address] [place] [address] Dr. Josie Sanchez Platelet mean volume (Bld) [Entitic vol] 10.1 fL Normal 9.5-13.5 [facility] Comment on above: Performed By: #### Clyde MEANS UMICRO #### [facility] [address] [place] [address] Dr. Josie Sanchez PLT 211 103/ul Normal 150-450 [facility] Comment on above: Performed By: #### Clyde MEANS, UMICRO #### [facility] [address] [place] [address] Dr. Josie Sanchez RBC 4.49 106/ul Normal 4.20-5.40 [facility] Comment on above: Performed By: #### Clyde MEANS UMICRO #### [facility] [address] [place] [address] Dr. Josie Sanchez WBC 5.9 103/ul Normal 4.0-11.0 [facility] Comment on above: Performed By: #### Clyde MEANS UMICRO #### [facility] [address] [place] [address] Dr. Josie Sanchez FREE THYROXINE INDEX T7on FTI 2.63 Normal 1.30-4.50 [facility] Comment on above: Performed By: #### Clyde MEANS UMICRO #### [facility] [address] [place] [address] Dr. Josie Sanchez T3U 35.0 % Normal 30.0-39.0 [facility] Comment on above: Performed By: #### Clyde MEANS UMICRO #### [facility] [address] [place] [address] Dr. Josie Sanchez T4 [Mass/Vol] 7.50 ug/dL Normal 4.80-13.90 [facility] Comment on above: Performed By: #### Clyde MEANS UMICRO #### [facility] [address] [place] [address] Dr. Josie Sanchez GLYCOHEMOGLOBIN A1Con 2022 ADA RECOMMENDATION SEE BELOW Normal [facility] Comment on above: Result Comment: ADA RECOMMENDED LIMIT 4.0 - 6.0 ADA THERAPEUTIC TARGET < 7.0 ACTION SUGGESTED > 7.0 Performed By: #### Clyde MEANS UMICRO #### [facility] [address] [place] [address] Dr. Josie Sanchez Glucose [Mass/Vol] 111 mg/dL Normal [facility] Comment on above: Performed By: #### Clyde MEANS UMICRO #### [facility] [address] [place] [address] Dr. Josie Sanchez HbA1c (Bld) [Mass fraction] 5.5 % Normal 4.5-6.2 [facility] Comment on above: Performed By: #### E RILEY MEANS #### [facility] [address] [address] [address] Josie Sanchez IRONon 08-12-2022 Iron [Mass/Vol] 40.0 ug/dL Critically low 50.0-170.0 [facility] Comment on above: Performed By: #### P REGQNT #### [facility] [address] [address] [address] Josie Sanchez LIPID PROFILEon 08-12-2022 CHOL-HDL RATIO NORM SEE BELOW Normal [facility] Comment on above: Result Comment: 3.3 - 4.4 LOW RISK 4.4 - 7.1 AVERAGE RISK 7.1 - 11.0 MODERATE RISK >11.0 HIGH RISK Performed By: #### P REGQNT #### [facility] [address] [place] [address] Dr. Josie Sanchez Cholesterol [Mass/Vol] 183 mg/dL Normal <=200 [facility] Comment on above: Performed By: #### P REGQNT #### [facility] [address] [address] [address] Josie Sanchez Cholesterol in HDL [Mass/Vol] 40 mg/dL Normal 40-60 [facility] Comment on above: Performed By: #### P REGQNT #### [facility] [address] [address] [address] Josie Sanchez Cholesterol in LDL [Mass/Vol] 131.0 mg/dL Normal [facility] Comment on above: Performed By: #### P REGQNT #### [facility] [address] [address] [address] Josie Sanchez Cholesterol.total/Choleste rol in HDL [Mass ratio] 4.6 {ratio} Normal [facility] Comment on above: Performed By: #### P REGQNT #### [facility] [address] [address] [address] Josie Sanchez HDL NORMAL > or = 60 mg/dl - LOW CARDIOVASCULAR RISK <40 mg/dl - HIGH CARDIOVASCULAR RISK Normal [facility] Comment on above: Performed By: #### P REGQNT #### [facility] [address] [place] [address] Dr. Josie Sanchez LDL CALC NORMAL SEE BELOW Normal [facility] Comment on above: Result Comment: <100 mg/dl OPTIMAL 100 - 129 mg/dl NEAR OR ABOVE OPTIMAL 130 - 159 mg/dl BORDERLINE HIGH 160 - 189 mg/dl HIGH >190 mg/dl VERY HIGH Performed By: #### P REGQNT #### [facility] [address] [place] [address] Dr. Josie Sanchez Triglyceride [Mass/Vol] 60 mg/dL Normal <=150 T [facility] Comment on above: Performed By: #### P REGQNT #### [facility] [address] [address] [address] Josie Sanchez VLDL CALC 12.0 mg/dL Normal [facility] Comment on above: Performed By: #### P REGQNT #### [facility] [address] [place] [address] Dr. Josie Sanchez PROF 14(COMP METB)on 023 Albumin [Mass/Vol] 3.7 g/dL Normal 3.4-5.0 [facility] Comment on above: Performed By: #### RILEY VALERIO #### [facility] [address] [place] [address] Dr. Josie Sanchez Albumin/Globulin [Mass ratio] 0.9 {ratio} Normal [facility] Comment on above: Performed By: #### KIAN VALERIORO #### [facility] [address] [place] [address] Dr. Josie Sanchez ALP [Catalytic activity/Vol] 131 U/L Critically high 46-116 [facility] Comment on above: Performed By: #### KIAN VALERIORO #### [facility] [address] [place] [address] Dr. Josie Sanchez ALT [Catalytic activity/Vol] 23 U/L Normal 14-59 [facility] Comment on above: Performed By: #### KIAN VALERIORO #### [facility] [address] [place] [address] Dr. Josie Sanchez Anion gap [Moles/Vol] 10.5 mmol/L Normal Th [facility] Comment on above: Performed By: #### RILEY VALERIO #### [facility] [address] [place] [address] Dr. Josie Sanchez AST [Catalytic activity/Vol] 18 U/L Normal 15-37 [facility] Comment on above: Performed By: #### RILEY VALERIO #### [facility] [address] [place] [address] Dr. Josie Sanchez Bilirubin [Mass/Vol] 0.7 mg/dL Normal 0.2-1.0 [facility] Comment on above: Performed By: #### RILEY VALERIO #### [facility] [address] [place] [address] Dr. Josie Sanchez Calcium [Mass/Vol] 8.7 mg/dL Normal 8.5-10.1 [facility] Comment on above: Performed By: #### RILEY VALERIO #### [facility] [address] [place] [address] Dr. Josie Sanchez Chloride [Moles/Vol] 103 mmol/L Normal 98-107 [facility] Comment on above: Performed By: #### RILEY VALERIO #### [facility] [address] [place] [address] Dr. Josie Sanchez CO2 [Moles/Vol] 30.1 mmol/L Normal 21.0-32.0 [facility] Comment on above: Performed By: #### RILEY VALERIO #### [facility] [address] [place] [address] Dr. Josie Sanchez Creatinine [Mass/Vol] 0.66 mg/dL Normal 0.55-1.02 [facility] Comment on above: Performed By: #### RILEY VALERIO #### [facility] [address] [place] [address] Dr. Josie Sanchez EGFR-AF FINNISH >60 Normal >=60 [facility] Comment on above: Performed By: #### RILEY VALERIO #### [facility] [address] [place] [address] Dr. Josie Sanchez EGFR-NON AF FINNISH >60 Normal >=60 [facility] Comment on above: Performed By: #### RILEY VALERIO #### [facility] [address] [place] [address] Dr. Josie Sanchez Globulin (S) [Mass/Vol] 4.3 g/dL Normal T [facility] Comment on above: Performed By: #### KIAN VALERIORO #### [facility] [address] [place] [address] Dr. Josie Sanchez Glucose [Mass/Vol] 90 mg/dL Normal 74-106 [facility] Comment on above: Performed By: #### KIAN VALERIORO #### [facility] [address] [place] [address] Dr. Josie Sanchez Potassium [Moles/Vol] 3.6 mmol/L Normal 3.5-5.1 [facility] Comment on above: Performed By: #### KIAN VALERIORO #### [facility] [address] [place] [address] Dr. Josie Sanchez Protein [Mass/Vol] 8.0 g/dL Normal 6.4-8.2 [facility] Comment on above: Performed By: #### KIAN VALERIORO #### [facility] [address] [place] [address] Dr. Josie Sanchez Sodium [Moles/Vol] 140 mmol/L Normal 136-145 [facility] Comment on above: Performed By: #### KIAN VALERIORO #### [facility] [address] [place] [address] Dr. Josie Sanchez Urea nitrogen [Mass/Vol] 12.0 mg/dL Normal 7.0-18.0 [facility] Comment on above: Performed By: #### KIAN VALERIORO #### [facility] [address] [place] [address] Dr. Josie Sanchez Urea nitrogen/Creatinine [Mass ratio] 18.2 mg/mg Normal [facility] Comment on above: Performed By: #### RILEY VALERIO #### [facility] [address] [place] [address] Dr. Josie Sanchez TSHon 08-12-2022 TSH 3.070 uIU/mL Normal 0.358-3.740 [facility] Comment on above: Performed By: #### P REGQNT #### [facility] [address] [place] [address] Dr. Josie Sanchez PREG QUANT HCGon 06-22-2022 HCG QUANT 1 mIU/mL Normal [facility] Comment on above: Performed By: #### KIAN VALERIORO #### [facility] [address] [place] [address] Dr. Josie Sanchez HCG RANGE SEE BELOW Normal [facility] Comment on above: Result Comment: 5-50 0.2-1 WEEK 50-500 1-2 WEEKS 100-5,000 2-3 WEEKS 500-10,000 3-4 WEEKS 1,000-50,000 4-5 WEEKS 10,000-100,000 5-6 WEEKS 15,000-200,000 6-8 WEEKS 10,000-100,000 2-3 MONTHS Performed By: #### RILEY VALERIO #### [facility] [address] [place] [address] Dr. Josie Sanchez PREG QUANT HCGon 05-20-2022 HCG QUANT 6 mIU/mL Normal [facility] Comment on above: Performed By: #### P REGQNT #### [facility] [address] [place] [address] Dr. Josie Sanchez HCG RANGE SEE BELOW Normal [facility] Comment on above: Result Comment: 5-50 0.2-1 WEEK 50-500 1-2 WEEKS 100-5,000 2-3 WEEKS 500-10,000 3-4 WEEKS 1,000-50,000 4-5 WEEKS 10,000-100,000 5-6 WEEKS 15,000-200,000 6-8 WEEKS 10,000-100,000 2-3 MONTHS Performed By: #### P REGQNT #### [facility] [address] [place] [address] Dr. Josie Sanchez PREG QUANT HCGon 05-14-2022 HCG QUANT 26 mIU/mL Normal [facility] Comment on above: Performed By: #### P REGQNT #### [facility] [address] [place] [address] Dr. Josie Sanchez HCG RANGE SEE BELOW Normal [facility] Comment on above: Result Comment: 5-50 0.2-1 WEEK 50-500 1-2 WEEKS 100-5,000 2-3 WEEKS 500-10,000 3-4 WEEKS 1,000-50,000 4-5 WEEKS 10,000-100,000 5-6 WEEKS 15,000-200,000 6-8 WEEKS 10,000-100,000 2-3 MONTHS Performed By: #### P REGQNT #### [facility] [address] [place] [address] Dr. Josie Sanchez CBC AUTO DIFFon 05-08-2022 BASO # 0.0 103/ul Normal 0.0-0.1 [facility] Comment on above: Performed By: #### Clyde MEANS GEORGIARO #### [facility] [address] [place] [address] Dr. Josie Sanchez Basophils/100 WBC (Bld) 0.2 % Normal 0.2-2.0 [facility] Comment on above: Performed By: #### Clyde MEANS ICRO #### [facility] [address] [place] [address] Dr. Josie Sanchez EO # 0.0 103/ul Normal 0.0-0.7 [facility] Comment on above: Performed By: #### Clyde MEANS ICRO #### [facility] [address] [place] [address] Dr. Josie Sanchez Eosinophils/100 WBC (Bld) 0.5 % Critically low 0.9-7. 0 [facility] Comment on above: Performed By: #### Clyde MEANS ICRO #### [facility] [address] [place] [address] Dr. Josie Sanchez Erythrocyte distribution width (RBC) [Ratio] 12.8 % Normal 11.0-15.0 [facility] Comment on above: Performed By: #### RILEY VALERIO #### [facility] [address] [place] [address] Dr. Josie Sanchez Hematocrit (Bld) [Volume fraction] 41.0 % Normal 36.0-48.0 [facility] Comment on above: Performed By: #### KIAN VALERIORO #### [facility] [address] [place] [address] Dr. Josie Sanchez Hemoglobin (Bld) [Mass/Vol] 13.4 g/dL Normal 12.0-16.0 [facility] Comment on above: Performed By: #### KIAN VALERIORO #### [facility] [address] [place] [address] Dr. Josie Sanchez IG # 0.02 10e3/ul Normal 0.00-0.03 [facility] Comment on above: Performed By: #### RILEY VALERIO #### [facility] [address] [place] [address] Dr. Josie Sanchez IG % 0.3 % Normal 0.0-0.5 [facility] Comment on above: Performed By: #### RILEY VALERIO #### [facility] [address] [place] [address] Dr. Josie Sanhcez LYMPH # 1.6 103/ul Normal 1.2-3.8 [facility] Comment on above: Performed By: #### RILEY VALERIO #### [facility] [address] [place] [address] Dr. Josie Sanchez Lymphocytes/100 WBC (Bld) 27.1 % Normal 20.5-60.0 [facility] Comment on above: Performed By: #### RILEY VALERIO #### [facility] [address] [place] [address] Dr. Josie Sanchez MANUAL DIFF REQ NO Normal [facility] Comment on above: Performed By: #### RILEY VALERIO #### [facility] [address] [place] [address] Dr. Josie Sanchez MCH (RBC) [Entitic mass] 29.3 pg Normal 26.7-34.0 [facility] Comment on above: Performed By: #### Clyde MEANS UMICRO #### [facility] [address] [place] [address] Dr. Josie Sanchez MCHC (RBC) [Mass/Vol] 32.7 g/dL Normal 29.9-35.2 [facility] Comment on above: Performed By: #### Clyde MEANS, UMICRO #### [facility] [address] [place] [address] Dr. Josie Sanchez MCV (RBC) [Entitic vol] 89.5 fL Normal 81.0-99.0 [facility] Comment on above: Performed By: #### Clyde MEANS UMICRO #### [facility] [address] [place] [address] Dr. Josie Sanchez MONO # 0.5 103/ul Normal 0.3-0.8 [facility] Comment on above: Performed By: #### Clyde MEANS UMICRO #### [facility] [address] [place] [address] Dr. Josie Sanchez Monocytes/100 WBC (Bld) 8.6 % Normal 1.7-12.0 [facility] Comment on above: Performed By: #### Clyde MEANS, UMICRO #### [facility] [address] [place] [address] Dr. Josie Sanchez NEUT # 3.7 103/ul Normal 1.4-6.5 [facility] Comment on above: Performed By: #### Clyde MEANS, UMICRO #### [facility] [address] [place] [address] Dr. Josie Sanchez Neutrophils/100 WBC (Bld) 63.3 % Normal 43.0-75.0 [facility] Comment on above: Performed By: #### Clyde MEANS, UMICRO #### [facility] [address] [place] [address] Dr. Josie Sanchez Platelet mean volume (Bld) [Entitic vol] 9.8 fL Normal 9.5-13.5 [facility] Comment on above: Performed By: #### Clyde MEANS UMICRO #### [facility] [address] [address] [address] Josie Sanchez PLT 238 103/ul Normal 150-450 [facility] Comment on above: Performed By: #### E MIGUELANGEL UMICRO #### [facility] [address] [place] [address] Dr. Josie Sanchez RBC 4.58 106/ul Normal 4.20-5.40 [facility] Comment on above: Performed By: #### E MIGUELANGEL UMICRO #### [facility] [address] [place] [address] Dr. Josie Sanchez WBC 5.8 103/ul Normal 4.0-11.0 [facility] Comment on above: Performed By: #### Clyde MEANS UMGEORGIARO #### [facility] [address] [place] [address] Dr. Josie Sanchez PREG QUANT HCGon 05-08-2022 HCG QUANT 2335 mIU/mL Normal [facility] Comment on above: Performed By: #### P REGQNT #### [facility] [address] [place] [address] Dr. Josie Sanchez HCG RANGE SEE BELOW Normal [facility] Comment on above: Result Comment: 5-50 0.2-1 WEEK 50-500 1-2 WEEKS 100-5,000 2-3 WEEKS 500-10,000 3-4 WEEKS 1,000-50,000 4-5 WEEKS 10,000-100,000 5-6 WEEKS 15,000-200,000 6-8 WEEKS 10,000-100,000 2-3 MONTHS Performed By: #### P REGQNT #### [facility] [address] [place] [address] Dr. Josie Sanchez CBC AUTO DIFFon 05-07-2022 BASO # 0.0 103/ul Normal 0.0-0.1 [facility] Comment on above: Performed By: #### Clyde MEANS UMGEORGIARO #### [facility] [address] [place] [address] Dr. Josie Sanchez Basophils/100 WBC (Bld) 0.2 % Normal 0.2-2.0 [facility] Comment on above: Performed By: #### RILEY VALERIO #### [facility] [address] [place] [address] Dr. Josie Sanchez EO # 0.0 103/ul Normal 0.0-0.7 [facility] Comment on above: Performed By: #### KIAN VALERIORO #### [facility] [address] [place] [address] Dr. Josie Sanchez Eosinophils/100 WBC (Bld) 0.3 % Critically low 0.9-7. 0 [facility] Comment on above: Performed By: #### RILEY VALERIO #### [facility] [address] [place] [address] Dr. Josie Sanchez Erythrocyte distribution width (RBC) [Ratio] 12.8 % Normal 11.0-15.0 [facility] Comment on above: Performed By: #### KIAN VALERIORO #### [facility] [address] [place] [address] Dr. Josie Sanchez Hematocrit (Bld) [Volume fraction] 41.2 % Normal 36.0-48.0 [facility] Comment on above: Performed By: #### KIAN VALERIORO #### [facility] [address] [place] [address] Dr. Josie Sanchez Hemoglobin (Bld) [Mass/Vol] 13.3 g/dL Normal 12.0-16.0 [facility] Comment on above: Performed By: #### KIAN VALERIORO #### [facility] [address] [place] [address] Dr. Josie Sanchez IG # 0.02 10e3/ul Normal 0.00-0.03 [facility] Comment on above: Performed By: #### KIAN VALERIORO #### [facility] [address] [place] [address] Dr. Josie Sanchez IG % 0.3 % Normal 0.0-0.5 [facility] Comment on above: Performed By: #### Clyde MEANS UMICRO #### [facility] [address] [place] [address] Dr. Josie Sanchez LYMPH # 1.0 103/ul Critically low 1.2-3.8 [facility] Comment on above: Performed By: #### Clyde MEANS UMICRO #### [facility] [address] [place] [address] Dr. Josie Sanchez Lymphocytes/100 WBC (Bld) 15.5 % Critically low 20.5-6 0.0 [facility] Comment on above: Performed By: #### Clyde MEANS UMICRO #### [facility] [address] [place] [address] Dr. Josie Sanchez MANUAL DIFF REQ NO Normal [facility] Comment on above: Performed By: #### Clyde MEANS UMICRO #### [facility] [address] [place] [address] Dr. Josie Sanchez MCH (RBC) [Entitic mass] 28.9 pg Normal 26.7-34.0 [facility] Comment on above: Performed By: #### Clyde MEANS UMICRO #### [facility] [address] [place] [address] Dr. Josie Sanchez MCHC (RBC) [Mass/Vol] 32.3 g/dL Normal 29.9-35.2 [facility] Comment on above: Performed By: #### lCyde MEANS UMICRO #### [facility] [address] [place] [address] Dr. Josie Sanchez MCV (RBC) [Entitic vol] 89.6 fL Normal 81.0-99.0 [facility] Comment on above: Performed By: #### Clyde MEANS UMICRO #### [facility] [address] [place] [address] Dr. Josie Sanchez MONO # 0.4 103/ul Normal 0.3-0.8 [facility] Comment on above: Performed By: #### Clyde MEANS UMICRO #### [facility] [address] [place] [address] Dr. Josie Sanchez Monocytes/100 WBC (Bld) 6.2 % Normal 1.7-12.0 [facility] Comment on above: Performed By: #### KIAN VALERIORO #### [facility] [address] [place] [address] Dr. Josie Sanchez NEUT # 5.0 103/ul Normal 1.4-6.5 [facility] Comment on above: Performed By: #### KIAN VALERIORO #### [facility] [address] [place] [address] Dr. Josie Sanchez Neutrophils/100 WBC (Bld) 77.5 % Critically high 43.0- 75.0 [facility] Comment on above: Performed By: #### ROBERT VALERIOICRO #### [facility] [address] [place] [address] Dr. Josie Sanchez Platelet mean volume (Bld) [Entitic vol] 10.2 fL Normal 9.5-13.5 [facility] Comment on above: Performed By: #### ROBERT VALERIOICRO #### [facility] [address] [place] [address] Dr. Josie Sanchez PLT 237 103/ul Normal 150-450 [facility] Comment on above: Performed By: #### ROBERT VALERIOICRO #### [facility] [address] [place] [address] Dr. Josie Sanchez RBC 4.60 106/ul Normal 4.20-5.40 [facility] Comment on above: Performed By: #### ROBERT VALERIOICRO #### [facility] [address] [place] [address] Dr. Josie Sanchez WBC 6.5 103/ul Normal 4.0-11.0 [facility] Comment on above: Performed By: #### ROBERT VALERIOICRO #### [facility] [address] [place] [address] Dr. Josie Sanchez Covid-19 PCR ([facility])on 04-10 SARS-CoV-2 (COVID-19) RNA ALEXA+probe Ql (Unsp spec) Not detected Normal NOT DETECTED [facility] Comment on above: Result Comment: This test is not yet approved or cleared by the [place] FDA. When there are no FDA-approved or cleared tests available, and other criteria are met, FDA can make tests available under an emergency access mechanism called an Emergency Use Authorization (EUA). The EUA for this test is supported by the Parent Educator of Health and Human Service's (HHS's) declaration [...] SARS-CoV-2. Performed By: #### RILEY VALERIO #### [facility] [address] [place] [address] Dr. Josie Sanchez PREG QUANT HCGon 05-07-2022 HCG QUANT 2745 mIU/mL Normal [facility] Comment on above: Performed By: #### RILEY VALERIO #### [facility] [address] [place] [address] Dr. Josie Sanchez HCG RANGE SEE BELOW Normal [facility] Comment on above: Result Comment: 5-50 0.2-1 WEEK 50-500 1-2 WEEKS 100-5,000 2-3 WEEKS 500-10,000 3-4 WEEKS 1,000-50,000 4-5 WEEKS 10,000-100,000 5-6 WEEKS 15,000-200,000 6-8 WEEKS 10,000-100,000 2-3 MONTHS Performed By: #### RILEY VALERIO #### [facility] [address] [place] [address] Dr. Josie Sanchez US PREG TVon 05-05-2022 [...] PEREZ DURBIN Date: 2022-05-05 14:42 Normal [facility] ER URINE PROFILEon 2 Bilirubin Ql (U) Negative Normal NEGATIVE [facility] Comment on above: Performed By: #### Clyde MEANS UMICRO #### [facility] [address] [place] [address] Dr. Josie Sanchez Clarity (U) CLEAR Normal CLEAR [facility] Comment on above: Performed By: #### KIAN VALERIORO #### [facility] [address] [place] [address] Dr. Josie Sanchez Color (U) YELLOW Normal YELLOW [facility] Comment on above: Performed By: #### Clyde MEANS UMICRO #### [facility] [address] [place] [address] Dr. Josie Sanchez ERUAHJuliane A micrscopic examination will be performed if indicated. Normal [facility] Comment on above: Performed By: #### Clyde MEANS UMICRO #### [facility] [address] [place] [address] Dr. Josie Sanchez Glucose Ql (U) Negative Normal NEGATIVE [facility] Comment on above: Performed By: #### Clyde MEANS UMICRO #### [facility] [address] [place] [address] Dr. Josie Sanchez Hemoglobin Ql (U) SMALL Abnormal NEGATIVE [facility] Comment on above: Performed By: #### KIAN VALERIORO #### [facility] [address] [place] [address] Dr. Josie Sanchez Ketones Ql (U) 15 mg/dl Abnormal NEGATIVE [facility] Comment on above: Performed By: #### ROBERT VALERIOICRO #### [facility] [address] [place] [address] Dr. Josie Sanchez LEUKOCYTES Negative Normal NEGATIVE [facility] Comment on above: Performed By: #### Clyde MEANS UMICRO #### [facility] [address] [place] [address] Dr. Josie Sanchez Nitrite Ql (U) Negative Normal NEGATIVE [facility] Comment on above: Performed By: #### KIAN VALERIORO #### [facility] [address] [place] [address] Dr. Josie Sanchez pH (U) 6.0 [pH] Normal 5-9 [facility] Comment on above: Performed By: #### ROBERT VALERIOICRO #### [facility] [address] [place] [address] Dr. Josie Sanchez SPEC GRAVITY 1.020 Normal 1.005-<=1.02 5 [facility] Comment on above: Performed By: #### KIAN VALERIORO #### [facility] [address] [place] [address] Dr. Josie Sanchez UA PROTEIN Negative Normal NEGATIVE/ TRACE [facility] Comment on above: Performed By: #### KIAN VALERIORO #### [facility] [address] [place] [address] Dr. Josie Sanchez UR MICRO IND INDICATED Normal [facility] Comment on above: Performed By: #### KIAN VALERIORO #### [facility] [address] [place] [address] Dr. Josie Sanchez Urobilinogen Qn (U) 0.2 {Fabricio'U}/dL Normal 0.2 - 1. 0 [facility] Comment on above: Performed By: #### KIAN VALERIORO #### [facility] [address] [place] [address] Dr. Josie Sanchez URINE MICROSCOPIC ONLYon BACTERIA NONE SEEN Normal NONE SEEN [facility] Comment on above: Performed By: #### Clyde MEANS UMICRO #### [facility] [address] [place] [address] Dr. Josie Sanchez Bacteria identified Cx Nom (U) NOT INDICATED Normal [facility] Comment on above: Performed By: #### Clyde MEANS UMICRO #### [facility] [address] [place] [address] Dr. Josie Sanchez CAST NONE SEEN Normal NONE SEEN [facility] Comment on above: Performed By: #### Clyde MEANS UMICRO #### [facility] [address] [place] [address] Dr. Josie Sanchez Crystals LM Nom (Urine sed) NONE SEEN Normal NONE SEEN [facility] Comment on above: Performed By: #### Clyde MEANS UMICRO #### [facility] [address] [place] [address] Dr. Josie Sanchez Epithelial cells LM Ql (Urine sed) NONE SEEN Normal NONE SEEN /RARE [facility] Comment on above: Performed By: #### Clyed MEANS UMICRO #### [facility] [address] [place] [address] Dr. Josie Sanchez MUCOUS MODERATE Abnormal NONE SEEN [facility] Comment on above: Performed By: #### Cldye MEANS UMICRO #### [facility] [address] [place] [address] Dr. Josie Sanchez RBC 0-2 Normal 0-2 [facility] Comment on above: Performed By: #### Clyde MEANS UMICRO #### [facility] [address] [place] [address] Dr. Josie Sanchez WBC NONE SEEN Normal NONE SEEN [facility] Comment on above: Performed By: #### Clyde MEANS UMICRO #### [facility] [address] [place] [address] Dr. Josie Sanchez PREG QUANT HCGon 04-20-2022 HCG QUANT 24939 mIU/mL Normal [facility] Comment on above: Performed By: #### RILEY VALERIO #### [facility] [address] [place] [address] Dr. Josie Sanchez HCG RANGE SEE BELOW Normal [facility] Comment on above: Result Comment: 5-50 0.2-1 WEEK 50-500 1-2 WEEKS 100-5,000 2-3 WEEKS 500-10,000 3-4 WEEKS 1,000-50,000 4-5 WEEKS 10,000-100,000 5-6 WEEKS 15,000-200,000 6-8 WEEKS 10,000-100,000 2-3 MONTHS Performed By: #### RILEY VALERIO #### [facility] [address] [place] [address] Dr. Josie Sanchez HCG-BETA SUBUNIT QUANTon hCG,Beta Subunit,Qnt,Serum <1 Normal [facility] Comment on above: Result Comment: Fema le (Non-) 0 - 5 (Postmenopausal) 0 - 8 . Female () Weeks of Gestation 3 6 - 71 4 10 - 750 5 000 - 2338 6 158 - 28515 7 8825 -[phone] 8 [phone] -[phone] 9 65277 -608197 10 42223 -823800 12 03538 -679363 14 07347 - 88321 15 18966 - 88750 16 0082 - 54452 17 2241 - 41850 18 7598 - 03237 Regina ECLIA methodology Performed By: #### RILEY VALERIO #### [facility] [address] [place] [address] Dr. Josie Sanchez CBC AUTO DIFFon 02-18-2022 BASO # 0.0 103/ul Normal 0.0-0.1 [facility] Comment on above: Performed By: #### C BC #### [facility] [address] [place] [address] Dr. Josie Sanchez Basophils/100 WBC (Bld) 0.2 % Normal 0.2-2.0 T [facility] Comment on above: Performed By: #### C PIEDAD #### [facility] [address] [place] [address] Dr. Josie Sanchez EO # 0.1 103/ul Normal 0.0-0.7 [facility] Comment on above: Performed By: #### C BC #### [facility] [address] [place] [address] Dr. Josie Sanchez Eosinophils/100 WBC (Bld) 0.8 % Critically low 0.9-7. 0 [facility] Comment on above: Performed By: #### C BC #### [facility] [address] [place] [address] Dr. Josie Sanchez Erythrocyte distribution width (RBC) [Ratio] 12.5 % Normal 11.0-15.0 [facility] Comment on above: Performed By: #### C BC #### [facility] [address] [place] [address] Dr. Josie Sanchez Hematocrit (Bld) [Volume fraction] 39.5 % Normal 36.0-48.0 [facility] Comment on above: Performed By: #### C BC #### [facility] [address] [place] [address] Dr. Josie Sanchez Hemoglobin (Bld) [Mass/Vol] 13.0 g/dL Normal 12.0-16.0 [facility] Comment on above: Performed By: #### C BC #### [facility] [address] [place] [address] Dr. Josie Sanchez IG # 0.02 10e3/ul Normal 0.00-0.03 [facility] Comment on above: Performed By: #### C BC #### [facility] [address] [place] [address] Dr. Josie aSnchez IG % 0.3 % Normal 0.0-0.5 [facility] Comment on above: Performed By: #### C BC #### [facility] [address] [place] [address] Dr. Josie Sanchez LYMPH # 1.5 103/ul Normal 1.2-3.8 [facility] Comment on above: Performed By: #### C BC #### [facility] [address] [place] [address] Dr. Josie Sanchez Lymphocytes/100 WBC (Bld) 22.9 % Normal 20.5-60.0 [facility] Comment on above: Performed By: #### C BC #### [facility] [address] [place] [address] Dr. Josie Sanchez MANUAL DIFF REQ NO Normal [facility] Comment on above: Performed By: #### C BC #### [facility] [address] [place] [address] Dr. Josie Sanchez MCH (RBC) [Entitic mass] 30.3 pg Normal 26.7-34.0 [facility] Comment on above: Performed By: #### C BC #### [facility] [address] [place] [address] Dr. Josie Sanchez MCHC (RBC) [Mass/Vol] 32.9 g/dL Normal 29.9-35.2 [facility] Comment on above: Performed By: #### C BC #### [facility] [address] [place] [address] Dr. Josie Sanchez MCV (RBC) [Entitic vol] 92.1 fL Normal 81.0-99.0 [facility] Comment on above: Performed By: #### C BC #### [facility] [address] [place] [address] Dr. Josie Sanchez MONO # 0.4 103/ul Normal 0.3-0.8 [facility] Comment on above: Performed By: #### C BC #### [facility] [address] [place] [address] Dr. Josie Sanchez Monocytes/100 WBC (Bld) 5.7 % Normal 1.7-12.0 [facility] Comment on above: Performed By: #### C BC #### [facility] [address] [place] [address] Dr. Josie Sanchez NEUT # 4.6 103/ul Normal 1.4-6.5 [facility] Comment on above: Performed By: #### C BC #### [facility] [address] [place] [address] Dr. Josie Sanchez Neutrophils/100 WBC (Bld) 70.1 % Normal 43.0-75.0 [facility] Comment on above: Performed By: #### C BC #### [facility] [address] [place] [address] Dr. Josie Sanchez Platelet mean volume (Bld) [Entitic vol] 10.0 fL Normal 9.5-13.5 [facility] Comment on above: Performed By: #### C BC #### [facility] [address] [place] [address] Dr. Josie Sanchez PLT 242 103/ul Normal 150-450 [facility] Comment on above: Performed By: #### C BC #### [facility] [address] [place] [address] Dr. Josie Sanchez RBC 4.29 106/ul Normal 4.20-5.40 [facility] Comment on above: Performed By: #### C BC #### [facility] [address] [place] [address] Dr. Josie Sanchez WBC 6.5 103/ul Normal 4.0-11.0 [facility] Comment on above: Performed By: #### C BC #### [facility] [address] [place] [address] Dr. Josie Sanchez LIPID PROFILEon 02-18-2022 CHOL-HDL RATIO NORM SEE BELOW Normal [facility] Comment on above: Result Comment: 3.3 - 4.4 LOW RISK 4.4 - 7.1 AVERAGE RISK 7.1 - 11.0 MODERATE RISK >11.0 HIGH RISK Performed By: #### L IPID, TSH #### [facility] [address] [place] [address] Dr. Josie Sanchez Cholesterol [Mass/Vol] 182 mg/dL Normal <=200 [facility] Comment on above: Performed By: #### L IPID, TSH #### [facility] [address] [place] [address] Dr. Josie Sanchez Cholesterol in HDL [Mass/Vol] 40 mg/dL Normal 40-60 [facility] Comment on above: Performed By: #### L IPID, TSH #### [facility] [address] [address] [address] Josie Sanchez Cholesterol in LDL [Mass/Vol] 122.4 mg/dL Normal [facility] Comment on above: Performed By: #### L IPID, TSH #### [facility] [address] [place] [address] Dr. Josie Sanchez Cholesterol.total/Choleste rol in HDL [Mass ratio] 4.6 {ratio} Normal [facility] Comment on above: Performed By: #### L IPID, TSH #### [facility] [address] [place] [address] Dr. Josie Sanchez HDL NORMAL > or = 60 mg/dl - LOW CARDIOVASCULAR RISK <40 mg/dl - HIGH CARDIOVASCULAR RISK Normal [facility] Comment on above: Performed By: #### L IPID, TSH #### [facility] [address] [place] [address] Dr. Josie Sanchez LDL CALC NORMAL SEE BELOW Normal [facility] Comment on above: Result Comment: <100 mg/dl OPTIMAL 100 - 129 mg/dl NEAR OR ABOVE OPTIMAL 130 - 159 mg/dl BORDERLINE HIGH 160 - 189 mg/dl HIGH >190 mg/dl VERY HIGH Performed By: #### L IPID, TSH #### [facility] [address] [place] [address] Dr. Josie Sanchez Triglyceride [Mass/Vol] 98 mg/dL Normal <=150 T [facility] Comment on above: Performed By: #### L IPID, TSH #### [facility] [address] [place] [address] Dr. Josie Sanchez VLDL CALC 19.6 mg/dL Normal [facility] Comment on above: Performed By: #### L IPID, TSH #### [facility] [address] [address] [address] Josie Sanchez PROTIMEon 02-18-2022 INR Coag (PPP) [Relative time] 1.10 {INR} Normal [facility] Comment on above: Performed By: #### P REGQNT #### [facility] [address] [place] [address] Dr. Josie Sanchez INR GUIDELINES SEE BELOW Normal [facility] Comment on above: Result Comment: PAULINA RED INR: 2.0 - 3.0 CONDITIONS NOT LISTED BELOW 2.5 - 3.5 FOR PROSTHETIC HEART VALVE REPLACEMENT 2.5 - 3.5 RECURRENT THROMBOSIS Performed By: #### P REGQNT #### [facility] [address] [place] [address] Dr. Josie Sanchez PT Coag (PPP) [Time] 11.8 s Critically high 9.0-11.6 [facility] Comment on above: Performed By: #### P REGQNT #### [facility] [address] [place] [address] Dr. Josie Sanchez PTTon 02-18-2022 aPTT Coag (Bld) [Time] 29.8 s Normal 22.3-36.2 [facility] Comment on above: Performed By: #### P REGQNT #### [facility] [address] [place] [address] Dr. Josie Sanchez TSHon 02-18-2022 TSH 3.410 uIU/mL Normal 0.358-3.740 [facility] Comment on above: Performed By: #### L IPID, TSH #### [facility] [address] [place] [address] Dr. Josie Sanchez US PELVIS AND TRANSVAGon [...] by: PEREZ DURBIN Date: 2022-02-18 18:56 Normal [facility] Nursing Note - Woundon 08-15 Nursing Note - Wound [id number] 03105#3.00CD:127 [facility] Coding Summary.on 08-08-2020 Coding Summary. CODING DATE: 08/08/[address] [facility] STATUS: Home (Routine DC) PAYOR: Medicaid [...] [facility] Formson 08-08-2020 Forms [id number] 0459#1.00CD:127 [facility] Home Health Recordson 2019 Home Health Records [id number] 3EFD#1.00CD:127 [facility] Ambulatory Clinical Summaryo n 07-26-2020 Ambulatory Clinical Summary {[id number] -[id number]-63-05-b0-03 -33-60-e2-c7}CD:61 4368 [facility] Home Health Recordson 2019 Home Health Records [id number] 0EC7#1.00CD:127 [facility] Progress Note - Woundon 07-09 Progress Note - Wound [id number] 89971#2.00CD:127 [facility] Consent for Treatmenton 07-09 Consent for Treatment [id number] AFAA#1.00CD:127 [facility] Multi-Wound Charton 07-25-20 20 Multi-Wound Chart [id number] 28869#1.00CD:127 [facility] Nursing Assessment - Woundon 07-25-2020 Nursing Assessment - Wound 170.71.121.11 7.202 [id number] 31604#1.00CD:127 [facility] Physician Orderon 07-25-2020 Physician Order [id number] 83010#1.00CD:127 [facility] Home Health Recordson 2019 Home Health Records [id number] 3741#1.00CD:127 [facility] Home Health Recordson 2019 Home Health Records [id number] 3554#1.00CD:127 [facility] Coding Summary.on 07-12-2020 Coding Summary. CODING DATE: 07/12/[address] [facility] STATUS: Home (Routine DC) PAYOR: Medicaid [...] Summary. CODING DATE: 07/12/[address] [facility] STATUS: Home (Routine DC) PAYOR: Medicaid [...] Multi-Wound Charton 07-12-20 20 Multi-Wound Chart [id number] 88882#1.00CD:127 [facility] Nursing Assessment - Woundon 07-12-2020 Nursing Assessment - Wound 170.71.121.11 7.202 [id number] 07772#1.00CD:127 [facility] Nursing Note - Woundon 07-12 Nursing Note - Wound [id number] 46717#1.00CD:127 [facility] Consent for Procedure/Surger yon 07-11-2020 Consent for Procedure/Surgery [id number] 74970#1.00CD:127 [facility] Consent for Treatmenton Consent for Treatment [id number] B36A#1.00CD:127 [facility] Home Health Recordson 2019 Home Health Records [id number] D3A1#1.00CD:127 [facility] Home Health Records [id number] [id number]#1.00CD:127 [facility] Physician Orderon 07-11-2020 Physician Order [id number] 29574#1.00CD:127 [facility] Progress Note - Woundon Progress Note - Wound [id number] [id number] 80540#1.00CD:127 [facility] Nursing Note - Woundon 07-02 Nursing Note - Wound [id number] [id number] 44884#3.00CD:127 [facility] Consent for Procedure/Surger yon 06-28-2020 Consent for Procedure/Surgery [id number]. [id number] 0200#1.00CD:127 [facility] Consent to Photographon 06-10 Consent to Photograph [id number] 0326#1.00CD:127 [facility] HIPAA Privacy Documentson HIPAA Privacy Documents [id number] 0158#1.00CD:127 [facility] Nursing Note - Woundon 06-28 Nursing Note - Wound [id number] [id number] 0289#1.00CD:127 [facility] Nursing Note - Wound [id number] [id number] 0217#1.00CD:127 [facility] Consent for Treatmenton 06-09 Consent for Treatment [id number] EEDA#1.00CD:127 [facility] Multi-Wound Charton 06-27-20 20 Multi-Wound Chart [id number] 26987#1.00CD:127 [facility] Nursing Assessment - Woundon 06-27-2020 Nursing Assessment - Wound 170.71.121.11 7.202 [id number] 65287#1.00CD:127 [facility] Physician Orderon 06-27-2020 Physician Order [id number] 50112#2.00CD:127 [facility] Progress Note - Woundon 06-09 Progress Note - Wound [id number] 62996#1.00CD:127 [facility] HIPAA Privacy Documentson HIPAA Privacy Documents [id number] 02 [id number]#1.00CD:127 [facility] Outside Records Officeon Outside Records Office [id number] 2 [id number]#1.00CD:127 [facility] Vital Signs Date Time Vital Sign Value Performing Clinician Facility 11-20-2022 15:05-0400 Body height 152.4 cm Gloria Valdovinosmond Other [facility] Other 11-20-2022 15:05-0400 Body mass index (BMI) [Ratio] 11.72 kg/m2 Gloria Valdovinosmond Other [facility] Other 11-20-2022 15:05-0400 Body temperature 97.7 [degF] Gloria Jackelyn Other [facility] Other 11-20-2022 15:05-0400 Body weight 27.22 kg Gloria Jackelyn Other [facility] Other 11-20-2022 15:05-0400 Respiratory rate 18 /min Gloria Jackelyn Other [facility] Other 11-20-2022 15:05-0400 SaO2% (BldA) [Mass fraction] 97 % Gloria Jackelyn Other [facility] Other Encounters Encounter Date Encounter Type Care Provider Facility Start: 09-20-2023 [facility] Result Encounter Norbert Vega DO Work Phone: [facility] Unsolicited Start: 09-20-2023 [facility] Result Encounter Norbert Vega DO Work Phone: [facility] Unsolicited Start: 08-23-2023 End: 08-23-2023 ambulatory NORBERT VEGA Not Available Start: 07-07-2023 End: 07-07-2023 ambulatory NORBERT VEGA Not Available Start: 12-21-2022 End: 12-21-[address] NORBERT VEGA . Facility:[facility] Start: 12-18-2022 End: 12-19-[address] NORBERT VEGA . Facility:[facility] Start: 11-20-2022 End: 11-20-2022 ambulatory Gloria Hayden Other [facility] Other Start: 11-20-2022 Office outpatient vi sit 15 minutes Gloria Hayden [facility] Start: 11-18-2022 End: 11-19-[address] NORBERT VEGA . Facility:[facility] Start: 11-16-2022 End: 11-17-[address] NORBERT VEGA . Facility:[facility] Start: 11-09-2022 End: 11-10-[address] NOBRERT VEGA . Facility:[facility] Start: 08-28-2022 End: 08-29-[address] NORBERT VEGA . Facility:[facility] Start: 08-12-2022 End: 08-13-[address] QUOC WATTS . Facility:[facility] Start: 06-22-2022 End: 06-23-[address] NORBERT VEGA . Facility:[facility] Start: 05-14-2022 End: 06-08-[address] NORBERT VEGA . Facility:[facility] Start: 05-11-2022 Encounter for preprocedural laboratory examination DR NORBERT VEGA . [facility] Start: 05-08-2022 End: 05-08-2022 ambulatory [...] Phone: Payers Date Payer Category Payer Medicaid [id number] 2022 Medicaid [place] [id number] 2022-Present [address] [place] [address] [id number] 1985 Unknown [id number] 2.0.1.876853.3.579.2.59 1985 Unknown [id number] 20.1.941340.3.579.2.59 1985 Unknown [id number] 2.840.1.554087.3.579.2.593 1985 Unknown [id number] 2.840.1.022569.3.579.2.593 1985 Unknown [id number] 2.16.840.1.314475.3.579.2.593 1985 Unknown [id number] 2.16.840.1.335973.3.579.2.593 1985 Unknown [id number] 2.16.840.1.363055.3.579.2.593 1985 Unknown [id number] 2.16.840.1.054319.3.579.2.593 1985 Unknown [id number] 2.16.840.1.203762.3.579.2.593 1985 Unknown [id number] 2.16.840.1.071828.3.579.2.593 1985 Unknown [id number] 2.16.840.1.898818.3.579.2.593 1985 Unknown [id number] 2.16.840.1.572254.3.579.2.593 1985 Unknown [id number] 2.16.840.1.600064.3.579.2.593 1985 Unknown [id number] 2.16.840.1.383717.3.579.2.593 1985 Unknown [id number] 2.16.840.1.504685.3.579.2.593 1985 Unknown [id number] 2.16.840.1.595187.3.579.2.593 1985 Unknown [id number] 2.16.840.1.887228.3.579.2.593 1985 Unknown [id number] 2.16.840.1.758620.3.579.2.593 1985 Unknown [id number] 2.16.840.1.541592.3.579.2.593 1985 Unknown [id number] 2.16.840.1.566599.3.579.2.593 1985 Unknown [id number] 2.16.840.1.470851.3.579.2.1259 1985 Unknown [id number] 2.16.840.1.408162.3.579.2.1259 1959 Self-pay 1959 Unknown [id number] Social History Date Type Detail Facility Unknown if ever smoked [facility] Other Start: 12-21-2022 Sex Assigned At [facility] Other Start: 12-21-2022 Tobacco smoking status NHIS Never smoked tobacco [facility] Start: 12-21-2022 Tobacco use and exposure Smokeless tobacco non-user [facility] Start: 08-23-2023 Alcohol intake Current drinke r of alcohol (finding) [facility] Start: 12-21-2022 History of Social function [facility] Start: 01-14-2023 Alcohol Comment caffeine intak e: occasionally [facility] Start: 1985 Sex Assigned At Not on file [facility] Healthcare Evaluation note 11-20-2022 Note Date & [...] Contact dermatitis home care material was printed [facility] Other Clinical Note 05-08-2022 Note Date & [...] authenticated by: PEREZ DURBIN Date: 2022-05-08 18:03 [facility] Clinical Note 05-08-2022 Note Date & Type Note Facility 05-08-2022 Note OPERATIVE NOTE OPERATION DATE: 05/08/2022 PROCEDURE: Suction D AND C. PREOPERATIVE DIAGNOSIS: 1. Suspected molar during first trimester. 2. Uterine mass approximately 4.5 cm. POSTOPERATIVE DIAGNOSIS: 1. Suspected molar during first trimester. 2. Uterine mass approximately 4.5 cm. 3. Significant large amounts of retained products. SURGEON: Norbert Vega D.O. POSTDOCTORAL RESEARCH FELLOW: None. BLOOD LOSS: 100 mL. URINE OUTPUT: [...] Recovery Room in stable condition. ?? [facility] History general Narrative - Reported Note Date & Type Note Facility History general Narrative - Reported Type Medical History Hypercholesterolemia Medical History Hormone imbalance Medical History Vitamin D deficiency Medical History Iron deficiency Surgical History C section Surgical History oral surgery Surgical History tonsillectomy and adenoidectomy Surgical History D&C 2021 Hospitalization History child [facility] Other Summary Purpose Family History No Family History Records FoundNo Family History Records FoundNo Family History Records Found Advance Directives No Advanced Directives Records FoundNo Advanced Directives Records FoundNo Advanced Directives Records Found Additional Source Comments INFORMATION SOURCE (unrecogn ized section and content) DATE CREATED AUTHOR [facility] DATE CREATED AUTHOR AUTHOR'S ORGANIZ ATION 12/22/2022 [facility] DATE CREATED AUTHOR AUTHOR'S ORGANLOLI ATION 08/24/2023 [facility] EPIC REASON FOR VISIT (unrecogniz ed section and content) HEAT RASH Care Teams (unrecognized sec tion and content) 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 [employer] provides no warranty or guarantee of the accuracy or completeness of information in this document.
[2023-11-19 04:09] LABS: Progesterone 22.2 ng/mL (.)
== END 2023-11-18 14:35 | disposition home or self-care (01) ==
LOC: LAB 14:35
PROVIDERS: PCP Family Medicine; Visit Provider Obstetrics & Gynecology
DX: N97.0 Female infertility associated with anovulation (principal)
CPT/HCPCS: 36415; 84144

== ENCOUNTER 2023-12-17 11:35 | Outpatient (OUT) | payer MEDICAID, SELFPAY | END 2023-12-17 11:36 | disposition home or self-care (01) | LOC: LAB 11:35 | PROVIDERS: PCP Family Medicine; Visit Provider Obstetrics & Gynecology | DX: N97.0 Female infertility associated with anovulation (principal) | CPT/HCPCS: 36415; 84144 ==

== ENCOUNTER 2023-12-31 09:08 | Outpatient (OUT) | payer MEDICAID, SELFPAY ==
--- OUTSIDE RECORDS SUMMARY | 2023-12-31 09:30 | XMS_ITS | CCD ---
Author Organization [facility] Care Team Providers Care Saw Sharpener Name Role Phone Gloria Hayden Unavailable MAC ., DR KUMARI Admitting Unavailable HOY ., [...] Unavailable SILVIA ., DR TOUSSAINT Admitting Unavailable RENE MEYERS [...] HOY ., DR KUMARI Primary Care Unavailable PONDER, DR PEREZ Luther Consulting Unavailable SILVIA ., DR TOUSSAINT Attending Unavailable SILVIA ., DR TOUSSAINT Consulting Unavailable HOY ., DR KUMARI Primary Care Unavailable PONDER, DR PEREZ Luther Consulting Unavailable SILVIA ., DR TOUSSAINT Admitting Unavailable SILVIA ., DR TOUSSAINT Attending Unavailable SILVIA ., DR TOUSSAINT Consulting Unavailable SILVIA ., DR TOUSSAINT Admitting Unavailable HOY ., DR KUMARI Primary Care Unavailable PONDER, DR PEREZ Luther Consulting Unavailable SILVIA ., [...] Unavailable SILVIA ., DR TOUSSAINT Admitting Unavailable Mac VILLARREAL, Quoc Cedeno Primary Care Provider [phone] NORBERT VEGA Attending Unavailable NORBERT VEGA Attending Unavailable NORBERT VEGA Attending Unavailable NORBERT VEGA Attending Unavailable Allergies Allergy Classification Reported Allergen(s) Allergy Type Date of Onset Reaction(s) Facility (1 source) Penicillin G Drug Allergy throat swelling [facility] Other (1 source) Cefaclor Drug Allergy [facility] Repository (2 sources) Penicillins Drug allergy (disorder) 01-26-20 16 [facility] Repository (1 source) Penicillins Drug Intolerance 10-21-19 [...] AUTO DIFFon BASOPHILS ABSOLUTE AUTO 0.0 [facility] Basophils/100 WBC (Bld) 0.2 % 0.2 - 2.0 % [facility] Eosinophils/100 WBC (Bld) 0.8 % Low 0.9 - 7.0 % [facility] Erythrocyte distribution width (RBC) [Ratio] 13.4 % 11.0 - 15.0 % [facility] Hematocrit (Bld) [Volume fraction] 42.3 % 36.0 - 48.0 % [facility] Hemoglobin (Bld) [Mass/Vol] 13.6 g/dL 12.0 - 16.0 g/dL [facility] IMMATURE GRANULOCYTES ABS AUTO 0.02 [facility] Immature granulocytes/100 WBC (Bld) 0.3 % 0.0 - 0.5 % [facility] Interpretation and review of laboratory results Abnormal [facility] LYMPHOCYTES ABSOLUTE AUTO 1.7 [facility] Lymphocytes/100 WBC (Bld) 26.5 % 20 .5 - 60.0 % [facility] MCH (RBC) [Entitic mass] 30.1 pg 26. 7 - 34.0 pg [facility] MCHC (RBC) [Mass/Vol] 32.2 g/dL 29.9 - 35.2 g/dL [facility] MCV (RBC) [Entitic vol] 93.6 fL 81.0 - 99.0 fL [facility] MONOCYTES ABSOLUTE AUTO 0.5 [facility] Monocytes/100 WBC (Bld) 7.3 % 1.7 - 12.0 % [facility] NEUTROPHILS ABSOLUTE AUTO 4.3 [facility] Neutrophils/100 WBC (Bld) 64.9 % 43 .0 - 75.0 % [facility] Platelet mean volume (Bld) [Entitic vol] 10.8 fL 9.5 - 13.5 fL [facility] TBH EO # 0.[address] [facility] PLT [address] [facility] RBC 4.[address] [facility] WBC 6.5 [facility] PROGESTERONEon 12-19-2022 Progesterone 9.6 ng/mL Normal [facility] Comment on above: Result Comment: Foll icular phase 0.1 - 0.9 Luteal phase 1.8 - 23.9 Ovulation phase 0.1 - 12.0 First trimester 11.0 - 44.3 Second trimester 25.4 - 83.3 Third trimester 58.7 - 214.0 Postmenopausal 0.0 - 0.1 Performed By: #### P ROGES #### [facility] [address] [place] [address] Dr. Josie Sanchez PROGESTERONEon 11-19-2022 Progesterone 6.3 ng/mL Normal [facility] Comment on above: Result Comment: Foll icular phase 0.1 - 0.9 Luteal phase 1.8 - 23.9 Ovulation phase 0.1 - 12.0 First trimester 11.0 - 44.3 Second trimester 25.4 - 83.3 Third trimester 58.7 - 214.0 Postmenopausal 0.0 - 0.1 Performed By: #### P ROGES #### [facility] [address] [place] [address] Dr. Josie Sanchez PREG QUANT HCGon 11-18-2022 HCG QUANT <1 Normal [facility] Comment on above: Performed By: #### P REGQNT #### [facility] [address] [place] [address] Dr. Josie Sanchez HCG RANGE SEE BELOW Normal [facility] Comment on above: Result Comment: 5-50 0.2-1 WEEK 50-500 1-2 WEEKS 100-5,000 2-3 WEEKS 500-10,000 3-4 WEEKS 1,000-50,000 4-5 WEEKS 10,000-100,000 5-6 WEEKS 15,000-200,000 6-8 WEEKS 10,000-100,000 2-3 MONTHS Performed By: #### P REGQNT #### [facility] [address] [place] [address] Dr. Josie Sanchez US PELVIS AND TRANSVAGon [...] of a yolk sac as noted by seating and mobility technologist. No significant free pelvic fluid is [...] by: RENE MEYERS Date: 2022-11-16 18:09 Normal [facility] DHEA SERUMon 11-11-2022 Dehydroepiandrosterone (DHEA) 335 ng/dL Normal 31-701 [facility] Comment on above: Performed By: #### E RILEY MEANS #### [facility] [address] [place] [address] Dr. Josie Sanchez DHEA-SULFATEon 11-10-2022 DHEA-Sulfate 251.0 ug/dL Normal 57.3-279.[address] [facility] Comment on above: Performed By: #### P REGQNT #### [facility] [address] [place], [place] [address] Dr. Josie Sanchez ESTRADIOLon 11-10-2022 Estradiol 66.1 pg/mL Normal [facility] Comment on above: Result Comment: Adul t Female: Follicular phase 12.5 - 166.0 Ovulation phase 85.8 - 498.0 Luteal phase 43.8 - 211.0 Postmenopausal <6.0 - 54.7 1st trimester 215.0 - >4300.0 [facility] ECLIA methodology Performed By: #### E MIGUELANGEL UMICRO #### [facility] [address] [place] [address] Dr. Josie Sanchez FSHon 11-10-2022 FSH 6.9 mIU/mL Normal [facility] Comment on above: Result Comment: Adul t Female: Follicular phase 3.5 - 12.5 Ovulation phase 4.7 - 21.5 Luteal phase 1.7 - 7.7 Postmenopausal 25.8 - 134.8 Performed By: #### P REGQNT #### [facility] [address] [place] [address] Dr. Josie Sanchez LUTEINIZING HORMONE (LH)on 0 11-10-2022 LH 9.9 mIU/mL Normal [facility] Comment on above: Result Comment: Adul t Female: Follicular phase 2.4 - 12.6 Ovulation phase 14.0 - 95.6 Luteal phase 1.0 - 11.4 Postmenopausal 7.7 - 58.5 Performed By: #### RILEY VALERIO #### [facility] [address] [place] [address] Dr. Josie Sanchez CBC AUTO DIFFon 11-09-2022 BASO # 0.0 103/ul Normal 0.0-0.1 [facility] Comment on above: Performed By: #### RILEY VALERIO #### [facility] [address] [place] [address] Dr. Josie Sanchez Basophils/100 WBC (Bld) 0.3 % Normal 0.2-2.0 [facility] Comment on above: Performed By: #### RILEY VALERIO #### [facility] [address] [place] [address] Dr. Josie Sanchez EO # 0.0 103/ul Normal 0.0-0.7 [facility] Comment on above: Performed By: #### RILEY VALERIO #### [facility] [address] [place] [address] Dr. Josie Sanchez Eosinophils/100 WBC (Bld) 0.5 % Critically low 0.9-7. 0 [facility] Comment on above: Performed By: #### RILEY VALERIO #### [facility] [address] [place] [address] Dr. Josie Sanchez Erythrocyte distribution width (RBC) [Ratio] 13.2 % Normal 11.0-15.0 [facility] Comment on above: Performed By: #### Clyde MEANS UMICRO #### [facility] [address] [place] [address] Dr. Josie Sanchez Hematocrit (Bld) [Volume fraction] 41.8 % Normal 36.0-48.0 [facility] Comment on above: Performed By: #### Clyde MEANS UMICRO #### [facility] [address] [place] [address] Dr. Josie Sanchez Hemoglobin (Bld) [Mass/Vol] 13.7 g/dL Normal 12.0-16.0 [facility] Comment on above: Performed By: #### Clyde MEANS UMICRO #### [facility] [address] [place] [address] Dr. Josie Sanchez IG # 0.02 10e3/ul Normal 0.00-0.03 [facility] Comment on above: Performed By: #### Clyde MEANS UMICRO #### [facility] [address] [place] [address] Dr. Josie Sanchez IG % 0.3 % Normal 0.0-0.5 [facility] Comment on above: Performed By: #### Clyde MEANS UMICRO #### [facility] [address] [place] [address] Dr. Josie Sanchez LYMPH # 1.2 103/ul Normal 1.2-3.8 [facility] Comment on above: Performed By: #### Clyde MEANS UMICRO #### [facility] [address] [place] [address] Dr. Josie Sanchez Lymphocytes/100 WBC (Bld) 18.4 % Critically low 20.5-6 0.0 [facility] Comment on above: Performed By: #### Clyde MEANS UMICRO #### [facility] [address] [place] [address] Dr. Josie Sanchez MANUAL DIFF REQ NO Normal [facility] Comment on above: Performed By: #### KIAN VALERIORO #### [facility] [address] [place] [address] Dr. Josie Sanchez MCH (RBC) [Entitic mass] 29.5 pg Normal 26.7-34.0 [facility] Comment on above: Performed By: #### KIAN VALERIORO #### [facility] [address] [place] [address] Dr. Josie Sanchez MCHC (RBC) [Mass/Vol] 32.8 g/dL Normal 29.9-35.2 [facility] Comment on above: Performed By: #### KIAN VALERIORO #### [facility] [address] [place] [address] Dr. Josie Sanchez MCV (RBC) [Entitic vol] 89.9 fL Normal 81.0-99.0 [facility] Comment on above: Performed By: #### KIAN VALERIORO #### [facility] [address] [place] [address] Dr. Joise Sanchez MONO # 0.3 103/ul Normal 0.3-0.8 [facility] Comment on above: Performed By: #### KIAN VALERIORO #### [facility] [address] [place] [address] Dr. Josie Sanchez Monocytes/100 WBC (Bld) 5.1 % Normal 1.7-12.0 [facility] Comment on above: Performed By: #### KIAN VALERIORO #### [facility] [address] [place] [address] Dr. Josie Sanchez NEUT # 4.8 103/ul Normal 1.4-6.5 [facility] Comment on above: Performed By: #### KIAN VALERIORO #### [facility] [address] [place] [address] Dr. Josie Sanchez Neutrophils/100 WBC (Bld) 75.4 % Critically high 43.0- 75.0 [facility] Comment on above: Performed By: #### RILEY VALERIO #### [facility] [address] [place] [address] Dr. Josie Sanchez Platelet mean volume (Bld) [Entitic vol] 9.8 fL Normal 9.5-13.5 [facility] Comment on above: Performed By: #### Clyde MEANS UMICRO #### [facility] [address] [place] [address] Dr. Josie Sanchez PLT 256 103/ul Normal 150-450 [facility] Comment on above: Performed By: #### Clyde MEANS UMICRO #### [facility] [address] [place] [address] Dr. Josie Sanchez RBC 4.65 106/ul Normal 4.20-5.40 [facility] Comment on above: Performed By: #### ROBERT VALERIOICRO #### [facility] [address] [place] [address] Dr. Josie Sanchez WBC 6.4 103/ul Normal 4.0-11.0 [facility] Comment on above: Performed By: #### Clyde MEANS UMICRO #### [facility] [address] [place] [address] Dr. Josie Sanchez FERRITINon 11-09-2022 Ferritin [Mass/Vol] 42.0 ng/mL Normal 6.2-137.0 [facility] Comment on above: Performed By: #### Clyde MEANS UMICRO #### [facility] [address] [place] [address] Dr. Josie Sanchez FREE T4on 11-09-2022 Free T4 [Mass/Vol] 0.87 ng/dL Normal 0.76-1.46 [facility] Comment on above: Performed By: #### Clyde MEANS UMICRO #### [facility] [address] [place] [address] Dr. Josie Sanchez GLYCOHEMOGLOBIN A1Con 2022 ADA RECOMMENDATION SEE BELOW Normal [facility] Comment on above: Result Comment: ADA RECOMMENDED LIMIT 4.0 - 6.0 ADA THERAPEUTIC TARGET < 7.0 ACTION SUGGESTED > 7.0 Performed By: #### Clyde MEANS UMICRO #### [facility] [address] [place] [address] Dr. Josie Sanchez Glucose [Mass/Vol] 100 mg/dL Normal [facility] Comment on above: Performed By: #### Clyde MEANS UMICRO #### [facility] [address] [place] [address] Dr. Josie Sanchez HbA1c (Bld) [Mass fraction] 5.1 % Normal 4.5-6.2 [facility] Comment on above: Performed By: #### Clyde MEANS UMICRO #### [facility] [address] [place] [address] Dr. Josie Sanchez PREG QUANT HCGon 11-09-2022 HCG QUANT <1 Normal [facility] Comment on above: Performed By: #### Clyde MEANS UMICRO #### [facility] [address] [place] [address] Dr. Josie Sanchez HCG RANGE SEE BELOW Normal [facility] Comment on above: Result Comment: 5-50 0.2-1 WEEK 50-500 1-2 WEEKS 100-5,000 2-3 WEEKS 500-10,000 3-4 WEEKS 1,000-50,000 4-5 WEEKS 10,000-100,000 5-6 WEEKS 15,000-200,000 6-8 WEEKS 10,000-100,000 2-3 MONTHS Performed By: #### Clyde MEANS UMICRO #### [facility] [address] [place] [address] Dr. Josie Sanchez TSHon 11-09-2022 TSH 2.163 uIU/mL Normal 0.358-3.740 [facility] Comment on above: Performed By: #### Clyde MEANS UMICRO #### [facility] [address] [place] [address] Dr. Josie Sanchez PROGESTERONEon 08-29-2022 Progesterone 7.3 ng/mL Normal [facility] Comment on above: Result Comment: Foll icular phase 0.1 - 0.9 Luteal phase 1.8 - 23.9 Ovulation phase 0.1 - 12.0 First trimester 11.0 - 44.3 Second trimester 25.4 - 83.3 Third trimester 58.7 - 214.0 Postmenopausal 0.0 - 0.1 Performed By: #### P MADELINES #### [facility] [address] [place] [address] Dr. Josie Sanchez INSULINon 08-13-2022 Insulin 12.5 uIU/mL Normal 2.6-24.9 [facility] Comment on above: Performed By: #### P REGQNT #### [facility] [address] [place] [address] Dr. Josie Sanchez CBC AUTO DIFFon 08-12-2022 BASO # 0.0 103/ul Normal 0.0-0.1 [facility] Comment on above: Performed By: #### KIAN VALERIORO #### [facility] [address] [place] [address] Dr. Josie Sanchez Basophils/100 WBC (Bld) 0.2 % Normal 0.2-2.0 [facility] Comment on above: Performed By: #### KIAN VALERIORO #### [facility] [address] [place] [address] Dr. Josie Sanchez EO # 0.1 103/ul Normal 0.0-0.7 [facility] Comment on above: Performed By: #### Clyde MEANS UMICRO #### [facility] [address] [place] [address] Dr. Josie Sanchez Eosinophils/100 WBC (Bld) 0.8 % Critically low 0.9-7. 0 [facility] Comment on above: Performed By: #### ROBERT VALERIOICRO #### [facility] [address] [place] [address] Dr. Josie Sanchez Erythrocyte distribution width (RBC) [Ratio] 14.0 % Normal 11.0-15.0 [facility] Comment on above: Performed By: #### Clyde MEANS UMICRO #### [facility] [address] [place] [address] Dr. Josie Sanchez Hematocrit (Bld) [Volume fraction] 39.5 % Normal 36.0-48.0 [facility] Comment on above: Performed By: #### Clyde MEANS UMICRO #### [facility] [address] [place] [address] Dr. Josie Sanchez Hemoglobin (Bld) [Mass/Vol] 12.7 g/dL Normal 12.0-16.0 [facility] Comment on above: Performed By: #### Clyde MEANS UMICRO #### [facility] [address] [place] [address] Dr. Josie Sanchez IG # 0.02 10e3/ul Normal 0.00-0.03 [facility] Comment on above: Performed By: #### Clyde MEANS UMICRO #### [facility] [address] [place] [address] Dr. Josie Sanchez IG % 0.3 % Normal 0.0-0.5 [facility] Comment on above: Performed By: #### Clyde MEANS UMICRO #### [facility] [address] [place] [address] Dr. Josie Sanchez LYMPH # 1.6 103/ul Normal 1.2-3.8 [facility] Comment on above: Performed By: #### Clyde MEANS UMICRO #### [facility] [address] [place] [address] Dr. Josie Sanchez Lymphocytes/100 WBC (Bld) 26.9 % Normal 20.5-60.0 [facility] Comment on above: Performed By: #### Clyde MEANS UMICRO #### [facility] [address] [place] [address] Dr. Josie Sanchez MANUAL DIFF REQ NO Normal [facility] Comment on above: Performed By: #### Clyde MEANS UMICRO #### [facility] [address] [place] [address] Dr. Josie Sanchez MCH (RBC) [Entitic mass] 28.3 pg Normal 26.7-34.0 [facility] Comment on above: Performed By: #### Clyde MEANS UMICRO #### [facility] [address] [place] [address] Dr. Josie Sanchez MCHC (RBC) [Mass/Vol] 32.2 g/dL Normal 29.9-35.2 [facility] Comment on above: Performed By: #### ROBERT VALERIOICRO #### [facility] [address] [place] [address] Dr. Josie Sanchez MCV (RBC) [Entitic vol] 88.0 fL Normal 81.0-99.0 [facility] Comment on above: Performed By: #### ROBERT VALERIOICRO #### [facility] [address] [place] [address] Dr. Josie Sanchez MONO # 0.4 103/ul Normal 0.3-0.8 [facility] Comment on above: Performed By: #### Cldye MEANS UMICRO #### [facility] [address] [place] [address] Dr. Josie Sanchez Monocytes/100 WBC (Bld) 7.1 % Normal 1.7-12.0 [facility] Comment on above: Performed By: #### Clyde MEANS UMICRO #### [facility] [address] [place] [address] Dr. Josie Sanchez NEUT # 3.8 103/ul Normal 1.4-6.5 [facility] Comment on above: Performed By: #### Clyde MEANS UMICRO #### [facility] [address] [place] [address] Dr. Josie Sanchez Neutrophils/100 WBC (Bld) 64.7 % Normal 43.0-75.0 [facility] Comment on above: Performed By: #### Clyde MEANS UMICRO #### [facility] [address] [place] [address] Dr. Josie Sanchez Platelet mean volume (Bld) [Entitic vol] 10.1 fL Normal 9.5-13.5 [facility] Comment on above: Performed By: #### Clyde MEANS UMICRO #### [facility] [address] [place] [address] Dr. Josie Sanchez PLT 211 103/ul Normal 150-450 [facility] Comment on above: Performed By: #### RILEY VALERIO #### [facility] [address] [place] [address] Dr. Josie Sanchez RBC 4.49 106/ul Normal 4.20-5.40 [facility] Comment on above: Performed By: #### RILEY VALERIO #### [facility] [address] [place] [address] Dr. Josie Sanchez WBC 5.9 103/ul Normal 4.0-11.0 [facility] Comment on above: Performed By: #### RILEY VALERIO #### [facility] [address] [place] [address] Dr. Josie Sanchez FREE THYROXINE INDEX T7on FTI 2.63 Normal 1.30-4.50 [facility] Comment on above: Performed By: #### RILEY VALERIO #### [facility] [address] [place] [address] Dr. Josie Sanchez T3U 35.0 % Normal 30.0-39.0 [facility] Comment on above: Performed By: #### RILEY VALERIO #### [facility] [address] [place] [address] Dr. Josie Sanchez T4 [Mass/Vol] 7.50 ug/dL Normal 4.80-13.90 [facility] Comment on above: Performed By: #### RILEY VALERIO #### [facility] [address] [place] [address] Dr. Josie Sanchez GLYCOHEMOGLOBIN A1Con 2022 ADA RECOMMENDATION SEE BELOW Normal [facility] Comment on above: Result Comment: ADA RECOMMENDED LIMIT 4.0 - 6.0 ADA THERAPEUTIC TARGET < 7.0 ACTION SUGGESTED > 7.0 Performed By: #### RILEY VALERIO #### [facility] [address] [place] [address] Dr. Josie Sanchez Glucose [Mass/Vol] 111 mg/dL Normal [facility] Comment on above: Performed By: #### RILEY VALERIO #### [facility] [address] [place] [address] [address] Josie Sanchez HbA1c (Bld) [Mass fraction] 5.5 % Normal 4.5-6.2 [facility] Comment on above: Performed By: #### E RILEY MEANS #### [facility] [address] [place] [address] [address] Josie Sanchez IRONon 08-12-2022 Iron [Mass/Vol] 40.0 ug/dL Critically low 50.0-170.0 [facility] Comment on above: Performed By: #### P REGQNT #### [facility] [address] [place] [address] [address] Josie Sanchez LIPID PROFILEon 08-12-2022 CHOL-HDL RATIO NORM SEE BELOW Normal [facility] Comment on above: Result Comment: 3.3 - 4.4 LOW RISK 4.4 - 7.1 AVERAGE RISK 7.1 - 11.0 MODERATE RISK >11.0 HIGH RISK Performed By: #### P REGQNT #### [facility] [address] [address] [address] Josie Sanchez Cholesterol [Mass/Vol] 183 mg/dL Normal <=200 [facility] Comment on above: Performed By: #### P REGQNT #### [facility] [address] [address] [address] Josie Sanchez Cholesterol in HDL [Mass/Vol] 40 mg/dL Normal 40-60 [facility] Comment on above: Performed By: #### P REGQNT #### [facility] [address] [address] [address] Josie Sanchez Cholesterol in LDL [Mass/Vol] 131.0 mg/dL Normal [facility] Comment on above: Performed By: #### P REGQNT #### [facility] [address] [address] [address] Josie Sanchez Cholesterol.total/Choleste rol in HDL [Mass ratio] 4.6 {ratio} Normal [facility] Comment on above: Performed By: #### P REGQNT #### [facility] [address] [address] [address] Josie Sanchez HDL NORMAL > or = 60 mg/dl - LOW CARDIOVASCULAR RISK <40 mg/dl - HIGH CARDIOVASCULAR RISK Normal [facility] Comment on above: Performed By: #### P REGQNT #### [facility] [address] [place] [address] Dr. Josie Sanchez LDL CALC NORMAL SEE BELOW Normal [facility] Comment on above: Result Comment: <100 mg/dl OPTIMAL 100 - 129 mg/dl NEAR OR ABOVE OPTIMAL 130 - 159 mg/dl BORDERLINE HIGH 160 - 189 mg/dl HIGH >190 mg/dl VERY HIGH Performed By: #### P REGQNT #### [facility] [address] [address] [address] Josie Sanchez Triglyceride [Mass/Vol] 60 mg/dL Normal <=150 T [facility] Comment on above: Performed By: #### P REGQNT #### [facility] [address] [place] [address] Dr. Josie Sanchez VLDL CALC 12.0 mg/dL Normal [facility] Comment on above: Performed By: #### P REGQNT #### [facility] [address] [place] [address] Dr. Josie Sanchez PROF 14(COMP METB)on 023 Albumin [Mass/Vol] 3.7 g/dL Normal 3.4-5.0 [facility] Comment on above: Performed By: #### RILEY VALERIO #### [facility] [address] [place] [address] Dr. Josie Sanchez Albumin/Globulin [Mass ratio] 0.9 {ratio} Normal [facility] Comment on above: Performed By: #### KIAN VALERIORO #### [facility] [address] [place] [address] Dr. Josie Sanchez ALP [Catalytic activity/Vol] 131 U/L Critically high 46-116 [facility] Comment on above: Performed By: #### KIAN VALERIORO #### [facility] [address] [place] [address] Dr. Josie Sanchez ALT [Catalytic activity/Vol] 23 U/L Normal 14-59 [facility] Comment on above: Performed By: #### RILEY VALERIO #### [facility] [address] [place] [address] Dr. Josie Sanchez Anion gap [Moles/Vol] 10.5 mmol/L Normal [facility] Comment on above: Performed By: #### RILEY VALERIO #### [facility] [address] [place] [address] Dr. Josie Sanchez AST [Catalytic activity/Vol] 18 U/L Normal 15-37 [facility] Comment on above: Performed By: #### RILEY VALERIO #### [facility] [address] [place] [address] Dr. Josie Sanchez Bilirubin [Mass/Vol] 0.7 mg/dL Normal 0.2-1.0 [facility] Comment on above: Performed By: #### RILEY VALERIO #### [facility] [address] [place] [address] Dr. Josie Sanchez Calcium [Mass/Vol] 8.7 mg/dL Normal 8.5-10.1 [facility] Comment on above: Performed By: #### RILEY VALERIO #### [facility] [address] [place] [address] Dr. Josie Sanchez Chloride [Moles/Vol] 103 mmol/L Normal 98-107 [facility] Comment on above: Performed By: #### RILEY VALERIO #### [facility] [address] [place] [address] Dr. Josie Sanchez CO2 [Moles/Vol] 30.1 mmol/L Normal 21.0-32.0 [facility] Comment on above: Performed By: #### RILEY VALERIO #### [facility] [address] [place] [address] Dr. Josie Sanchez Creatinine [Mass/Vol] 0.66 mg/dL Normal 0.55-1.02 [facility] Comment on above: Performed By: #### KIAN VALERIORO #### [facility] [address] [place] [address] Dr. Josie Sanchez EGFR-AF JAMAICAN >60 Normal >=[address] [facility] Comment on above: Performed By: #### RILEY VALERIO #### [facility] [address] [place] [address] Dr. Josie Sanchez EGFR-NON AF JAMAICAN >60 Normal >=60 [facility] Comment on above: Performed By: #### KIAN VALERIORO #### [facility] [address] [place] [address] Dr. Josie Sanchez Globulin (S) [Mass/Vol] 4.3 g/dL Normal T [facility] Comment on above: Performed By: #### RILEY VALERIO #### [facility] [address] [place] [address] Dr. Josie Sanchez Glucose [Mass/Vol] 90 mg/dL Normal 74-106 [facility] Comment on above: Performed By: #### RILEY VALERIO #### [facility] [address] [place] [address] Dr. Josie Sanchez Potassium [Moles/Vol] 3.6 mmol/L Normal 3.5-5.1 [facility] Comment on above: Performed By: #### KIAN VALERIORO #### [facility] [address] [place] [address] Dr. Josie Sanchez Protein [Mass/Vol] 8.0 g/dL Normal 6.4-8.2 [facility] Comment on above: Performed By: #### KIAN VALERIORO #### [facility] [address] [place] [address] Dr. Josie Sanchez Sodium [Moles/Vol] 140 mmol/L Normal 136-145 [facility] Comment on above: Performed By: #### KIAN VALERIORO #### [facility] [address] [place] [address] Dr. Josie Sanchez Urea nitrogen [Mass/Vol] 12.0 mg/dL Normal 7.0-18.0 [facility] Comment on above: Performed By: #### RILEY VALERIO #### [facility] [address] [place] [address] Dr. Josie Sanchez Urea nitrogen/Creatinine [Mass ratio] 18.2 mg/mg Normal [facility] Comment on above: Performed By: #### RILEY VALERIO #### [facility] [address] [place] [address] Dr. Josie Sanchez TSHon 08-12-2022 TSH 3.070 uIU/mL Normal 0.358-3.740 [facility] Comment on above: Performed By: #### P REGQNT #### [facility] [address] [place] [address] Dr. Josie Sanchez PREG QUANT HCGon 06-22-2022 HCG QUANT 1 mIU/mL Normal [facility] Comment on above: Performed By: #### KIAN VALERIORO #### [facility] [address] [place] [address] Dr. Josie Sanchez HCG RANGE SEE BELOW Normal [facility] Comment on above: Result Comment: 5-50 0.2-1 WEEK 50-500 1-2 WEEKS 100-5,000 2-3 WEEKS 500-10,000 3-4 WEEKS 1,000-50,000 4-5 WEEKS 10,000-100,000 5-6 WEEKS 15,000-200,000 6-8 WEEKS 10,000-100,000 2-3 MONTHS Performed By: #### RILEY VALERIO #### [facility] [address] [place] [address] Dr. Josie Sanchez PREG QUANT HCGon 05-20-2022 HCG QUANT 6 mIU/mL Normal [facility] Comment on above: Performed By: #### P REGQNT #### [facility] [address] [place] [address] Dr. Josie Sanchez HCG RANGE SEE BELOW Normal [facility] Comment on above: Result Comment: 5-50 0.2-1 WEEK 50-500 1-2 WEEKS 100-5,000 2-3 WEEKS 500-10,000 3-4 WEEKS 1,000-50,000 4-5 WEEKS 10,000-100,000 5-6 WEEKS 15,000-200,000 6-8 WEEKS 10,000-100,000 2-3 MONTHS Performed By: #### P REGQNT #### [facility] [address] [place] [address] Dr. Josie Sanchez PREG QUANT HCGon 05-14-2022 HCG QUANT 26 mIU/mL Normal [facility] Comment on above: Performed By: #### P REGQNT #### [facility] [address] [place] [address] Dr. Josie Sanchez HCG RANGE SEE BELOW Normal [facility] Comment on above: Result Comment: 5-50 0.2-1 WEEK 50-500 1-2 WEEKS 100-5,000 2-3 WEEKS 500-10,000 3-4 WEEKS 1,000-50,000 4-5 WEEKS 10,000-100,000 5-6 WEEKS 15,000-200,000 6-8 WEEKS 10,000-100,000 2-3 MONTHS Performed By: #### P REGQNT #### [facility] [address] [place] [address] Dr. Josei Sanchez CBC AUTO DIFFon 05-08-2022 BASO # 0.0 103/ul Normal 0.0-0.1 [facility] Comment on above: Performed By: #### RILEY VALERIO #### [facility] [address] [place] [address] Dr. Josie Sanchez Basophils/100 WBC (Bld) 0.2 % Normal 0.2-2.0 [facility] Comment on above: Performed By: #### RILEY VALERIO #### [facility] [address] [place] [address] Dr. Josie Sanchez EO # 0.0 103/ul Normal 0.0-0.7 [facility] Comment on above: Performed By: #### RILEY VALERIO #### [facility] [address] [place] [address] Dr. Josie Sanchez Eosinophils/100 WBC (Bld) 0.5 % Critically low 0.9-7. 0 [facility] Comment on above: Performed By: #### KIAN VALERIORO #### [facility] [address] [place] [address] Dr. Josie Sanchez Erythrocyte distribution width (RBC) [Ratio] 12.8 % Normal 11.0-15.0 [facility] Comment on above: Performed By: #### KIAN VALERIORO #### [facility] [address] [place] [address] Dr. Josie Sanchez Hematocrit (Bld) [Volume fraction] 41.0 % Normal 36.0-48.0 [facility] Comment on above: Performed By: #### KIAN VALERIORO #### [facility] [address] [place] [address] Dr. Josie Sanchez Hemoglobin (Bld) [Mass/Vol] 13.4 g/dL Normal 12.0-16.0 [facility] Comment on above: Performed By: #### KIAN VALERIORO #### [facility] [address] [place] [address] Dr. Josie Sanchez IG # 0.02 10e3/ul Normal 0.00-0.03 [facility] Comment on above: Performed By: #### KIAN VALERIORO #### [facility] [address] [place] [address] Dr. Josie Sanchez IG % 0.3 % Normal 0.0-0.5 [facility] Comment on above: Performed By: #### KIAN VALERIORO #### [facility] [address] [place] [address] Dr. Josie Sanchez LYMPH # 1.6 103/ul Normal 1.2-3.8 [facility] Comment on above: Performed By: #### KIAN VALERIORO #### [facility] [address] [place] [address] Dr. Josie Sanchez Lymphocytes/100 WBC (Bld) 27.1 % Normal 20.5-60.0 [facility] Comment on above: Performed By: #### KIAN VALERIORO #### [facility] [address] [place] [address] Dr. Josie Sanchez MANUAL DIFF REQ NO Normal [facility] Comment on above: Performed By: #### Clyde MEANS UMICRO #### [facility] [address] [place] [address] Dr. Josie Sanchez MCH (RBC) [Entitic mass] 29.3 pg Normal 26.7-34.0 [facility] Comment on above: Performed By: #### Clyde MEANS UMICRO #### [facility] [address] [place] [address] Dr. Josie Sanchez MCHC (RBC) [Mass/Vol] 32.7 g/dL Normal 29.9-35.2 [facility] Comment on above: Performed By: #### Clyde MEANS UMICRO #### [facility] [address] [place] [address] Dr. Josie Sanchez MCV (RBC) [Entitic vol] 89.5 fL Normal 81.0-99.0 [facility] Comment on above: Performed By: #### Clyde MEANS UMICRO #### [facility] [address] [place] [address] Dr. Josie Sanchez MONO # 0.5 103/ul Normal 0.3-0.8 [facility] Comment on above: Performed By: #### Clyde MEANS UMICRO #### [facility] [address] [place] [address] Dr. Josie Sanchez Monocytes/100 WBC (Bld) 8.6 % Normal 1.7-12.0 [facility] Comment on above: Performed By: #### Clyde MEANS UMICRO #### [facility] [address] [place] [address] Dr. Josie Sanchez NEUT # 3.7 103/ul Normal 1.4-6.5 [facility] Comment on above: Performed By: #### Clyde MEANS UMICRO #### [facility] [address] [place] [address] Dr. Josie Sanchez Neutrophils/100 WBC (Bld) 63.3 % Normal 43.0-75.0 [facility] Comment on above: Performed By: #### Clyde MEANS UMICRO #### [facility] [address] [address] [address] Josie Sanchez Platelet mean volume (Bld) [Entitic vol] 9.8 fL Normal 9.5-13.5 [facility] Comment on above: Performed By: #### Clyde MEANS, UMICRO #### [facility] [address] [address] [address] Josie Sanchez PLT 238 103/ul Normal 150-450 [facility] Comment on above: Performed By: #### Clyde MEANS, UMICRO #### [facility] [address] [place] [address] Dr. Josie Sanchez RBC 4.58 106/ul Normal 4.20-5.40 [facility] Comment on above: Performed By: #### Clyde MEANS, ICRO #### [facility] [address] [place] [address] Dr. Josie Sanchez WBC 5.8 103/ul Normal 4.0-11.0 [facility] Comment on above: Performed By: #### Clyde MEANS, ICRO #### [facility] [address] [place] [address] Dr. Josie Sanchez PREG QUANT HCGon 05-08-2022 HCG QUANT 2335 mIU/mL Normal [facility] Comment on above: Performed By: #### P REGQNT #### [facility] [address] [place] [address] Dr. Josie Sanchez HCG RANGE SEE BELOW Normal [facility] Comment on above: Result Comment: 5-50 0.2-1 WEEK 50-500 1-2 WEEKS 100-5,000 2-3 WEEKS 500-10,000 3-4 WEEKS 1,000-50,000 4-5 WEEKS 10,000-100,000 5-6 WEEKS 15,000-200,000 6-8 WEEKS 10,000-100,000 2-3 MONTHS Performed By: #### P REGQNT #### [facility] [address] [place] [address] Dr. Josie Sanchez CBC AUTO DIFFon 05-07-2022 BASO # 0.0 103/ul Normal 0.0-0.1 [facility] Comment on above: Performed By: #### RILEY VALERIO #### [facility] [address] [place] [address] Dr. Josie Sanchez Basophils/100 WBC (Bld) 0.2 % Normal 0.2-2.0 [facility] Comment on above: Performed By: #### KIAN VALERIORO #### [facility] [address] [place] [address] Dr. Josie Sanchez EO # 0.0 103/ul Normal 0.0-0.7 [facility] Comment on above: Performed By: #### RILEY VALERIO #### [facility] [address] [place] [address] Dr. Josie Sanchez Eosinophils/100 WBC (Bld) 0.3 % Critically low 0.9-7. 0 [facility] Comment on above: Performed By: #### KIAN VALERIORO #### [facility] [address] [place] [address] Dr. Josie Sanchez Erythrocyte distribution width (RBC) [Ratio] 12.8 % Normal 11.0-15.0 [facility] Comment on above: Performed By: #### RILEY VALERIO #### [facility] [address] [place] [address] Dr. Josie Sanchez Hematocrit (Bld) [Volume fraction] 41.2 % Normal 36.0-48.0 [facility] Comment on above: Performed By: #### KIAN VALERIORO #### [facility] [address] [place] [address] Dr. Josie Sanchez Hemoglobin (Bld) [Mass/Vol] 13.3 g/dL Normal 12.0-16.0 [facility] Comment on above: Performed By: #### KIAN VALERIORO #### [facility] [address] [place] [address] Dr. Josie Sanchez IG # 0.02 10e3/ul Normal 0.00-0.03 [facility] Comment on above: Performed By: #### E RUR, UMICRO #### [facility] [address] [place] [address] Dr. Josie Sanchez IG % 0.3 % Normal 0.0-0.5 [facility] Comment on above: Performed By: #### E YOSELINR, UMICRO #### [facility] [address] [place] [address] Dr. Josie Sanchez LYMPH # 1.0 103/ul Critically low 1.2-3.8 [facility] Comment on above: Performed By: #### E MIGUELANGEL, UMICRO #### [facility] [address] [place] [address] Dr. Josie Sanchez Lymphocytes/100 WBC (Bld) 15.5 % Critically low 20.5-6 0.0 [facility] Comment on above: Performed By: #### Clyde MEANS UMICRO #### [facility] [address] [place] [address] Dr. Josie Sanchez MANUAL DIFF REQ NO Normal [facility] Comment on above: Performed By: #### Clyde MEANS UMICRO #### [facility] [address] [place] [address] Dr. Josie Sanchez MCH (RBC) [Entitic mass] 28.9 pg Normal 26.7-34.0 [facility] Comment on above: Performed By: #### Clyde MEANS UMICRO #### [facility] [address] [place] [address] Dr. Josie Sanchez MCHC (RBC) [Mass/Vol] 32.3 g/dL Normal 29.9-35.2 [facility] Comment on above: Performed By: #### E RUJolie, UMICRO #### [facility] [address] [place] [address] Dr. Josie Sanchez MCV (RBC) [Entitic vol] 89.6 fL Normal 81.0-99.0 [facility] Comment on above: Performed By: #### E MIGUELANGEL, UMICRO #### [facility] [address] [place] [address] Dr. Josie Sanchez MONO # 0.4 103/ul Normal 0.3-0.8 [facility] Comment on above: Performed By: #### RILEY VALERIO #### [facility] [address] [place] [address] Dr. Josie Sanchez Monocytes/100 WBC (Bld) 6.2 % Normal 1.7-12.0 [facility] Comment on above: Performed By: #### KIAN VALERIORO #### [facility] [address] [place] [address] Dr. Josie Sanchez NEUT # 5.0 103/ul Normal 1.4-6.5 [facility] Comment on above: Performed By: #### KIAN VALERIORO #### [facility] [address] [place] [address] Dr. Josie Sanchez Neutrophils/100 WBC (Bld) 77.5 % Critically high 43.0- 75.0 [facility] Comment on above: Performed By: #### KIAN VALERIORO #### [facility] [address] [place] [address] Dr. Josie Sanchez Platelet mean volume (Bld) [Entitic vol] 10.2 fL Normal 9.5-13.5 [facility] Comment on above: Performed By: #### KIAN VALERIORO #### [facility] [address] [place] [address] Dr. Josie Sanchez PLT 237 103/ul Normal 150-450 [facility] Comment on above: Performed By: #### KIAN VALERIORO #### [facility] [address] [place] [address] Dr. Josie Sanchez RBC 4.60 106/ul Normal 4.20-5.40 [facility] Comment on above: Performed By: #### KIAN VALERIORO #### [facility] [address] [place] [address] Dr. Josie Sanchez WBC 6.5 103/ul Normal 4.0-11.0 [facility] Comment on above: Performed By: #### KIAN VALERIORO #### [facility] [address] [place] [address] Dr. Josie Sanchez Covid-19 PCR (CVDTB)on 04-10 SARS-CoV-2 (COVID-19) RNA ALEXA+probe Ql (Unsp spec) Not detected Normal NOT DETECTED [facility] Comment on above: Result Comment: This test is not yet approved or cleared by the [place] FDA. When there are no FDA-approved or cleared tests available, and other criteria are met, FDA can make tests available under an emergency access mechanism called an Emergency Use Authorization (EUA). The EUA for this test is supported by the [employer] of Health and Human Service's (HHS's) declaration [...] SARS-CoV-2. Performed By: #### RILEY VALERIO #### [facility] [address] [place] [address] Dr. Josie Sanchez PREG QUANT HCGon 05-07-2022 HCG QUANT 2745 mIU/mL Normal [facility] Comment on above: Performed By: #### RILEY VALERIO #### [facility] [address] [place] [address] Dr. Josie Sanchez HCG RANGE SEE BELOW Normal [facility] Comment on above: Result Comment: 5-50 0.2-1 WEEK 50-500 1-2 WEEKS 100-5,000 2-3 WEEKS 500-10,000 3-4 WEEKS 1,000-50,000 4-5 WEEKS 10,000-100,000 5-6 WEEKS 15,000-200,000 6-8 WEEKS 10,000-100,000 2-3 MONTHS Performed By: #### RILEY VALERIO #### [facility] [address] [place] [address] Dr. Josie Sanchez US PREG TVon 05-05-2022 [...] by: PEREZ DURBIN Date: 2022-05-05 14:42 Normal [facility] ER URINE PROFILEon 2 Bilirubin Ql (U) Negative Normal NEGATIVE [facility] Comment on above: Performed By: #### RILEY VALERIO #### [facility] [address] [place] [address] Dr. Josie Sanchez Clarity (U) CLEAR Normal CLEAR [facility] Comment on above: Performed By: #### RILEY VALERIO #### [facility] [address] [place] [address] Dr. Josie Sanchez Color (U) YELLOW Normal YELLOW [facility] Comment on above: Performed By: #### RILEY VALERIO #### [facility] [address] [place] [address] Dr. Josie WU A micrscopic examination will be performed if indicated. Normal [facility] Comment on above: Performed By: #### RILEY VALERIO #### [facility] [address] [place] [address] Dr. Josie Sanchez Glucose Ql (U) Negative Normal NEGATIVE [facility] Comment on above: Performed By: #### ROBERT VALERIOICRO #### [facility] [address] [address] [address] Josie Sanchez Hemoglobin Ql (U) SMALL Abnormal NEGATIVE [facility] Comment on above: Performed By: #### Clyde MEANS UMICRO #### [facility] [address] [place] [address] Dr. Josie Sanchez Ketones Ql (U) 15 mg/dl Abnormal NEGATIVE [facility] Comment on above: Performed By: #### ROBERT VALERIOICRO #### [facility] [address] [place] [address] Dr. Josie Sanchez LEUKOCYTES Negative Normal NEGATIVE [facility] Comment on above: Performed By: #### Clyde MEANS UMICRO #### [facility] [address] [place] [address] Dr. Josie Sanchez Nitrite Ql (U) Negative Normal NEGATIVE [facility] Comment on above: Performed By: #### KIAN VALERIORO #### [facility] [address] [place] [address] Dr. Josie Sanchez pH (U) 6.0 [pH] Normal 5-9 [facility] Comment on above: Performed By: #### KIAN VALERIORO #### [facility] [address] [place] [address] Dr. Josie Sanchez SPEC GRAVITY 1.020 Normal 1.005-<=1.02 5 [facility] Comment on above: Performed By: #### KIAN VALERIORO #### [facility] [address] [place] [address] Dr. Josie Sanchez UA PROTEIN Negative Normal NEGATIVE/ TRACE [facility] Comment on above: Performed By: #### KIAN VALERIORO #### [facility] [address] [place] [address] Dr. Josie Sanchez UR MICRO IND INDICATED Normal [facility] Comment on above: Performed By: #### KIAN VALERIORO #### [facility] [address] [place] [address] Dr. Josie Sanchez Urobilinogen Qn (U) 0.2 {Fabricio'U}/dL Normal 0.2 - 1. 0 [facility] Comment on above: Performed By: #### KIAN VALERIORO #### [facility] [address] [place] [address] Dr. Josie Sanchez URINE MICROSCOPIC ONLYon BACTERIA NONE SEEN Normal NONE SEEN [facility] Comment on above: Performed By: #### Clyde MEANS UMICRO #### [facility] [address] [place] [address] Dr. Josie Sanchez Bacteria identified Cx Nom (U) NOT INDICATED Normal [facility] Comment on above: Performed By: #### Clyde MEANS UMICRO #### [facility] [address] [place] [address] Dr. Josie Sanchez CAST NONE SEEN Normal NONE SEEN [facility] Comment on above: Performed By: #### Clyde MEANS UMICRO #### [facility] [address] [place] [address] Dr. Josie Sanchez Crystals LM Nom (Urine sed) NONE SEEN Normal NONE SEEN [facility] Comment on above: Performed By: #### Clyde MEANS UMICRO #### [facility] [address] [place] [address] Dr. Josie Sanchez Epithelial cells LM Ql (Urine sed) NONE SEEN Normal NONE SEEN /RARE [facility] Comment on above: Performed By: #### Clyde MEANS UMICRO #### [facility] [address] [place] [address] Dr. Josie Sanchez MUCOUS MODERATE Abnormal NONE SEEN [facility] Comment on above: Performed By: #### Clyde MEANS UMICRO #### [facility] [address] [place] [address] Dr. Josie Sanchez RBC 0-2 Normal 0-2 [facility] Comment on above: Performed By: #### Clyde MEANS UMICRO #### [facility] [address] [place] [address] Dr. Josie Sanchez WBC NONE SEEN Normal NONE SEEN [facility] Comment on above: Performed By: #### RILEY VALERIO #### [facility] [address] [place] [address] Dr. Josie Sanchez PREG QUANT HCGon 04-20-2022 HCG QUANT 67014 mIU/mL Normal [facility] Comment on above: Performed By: #### KIAN VALERIORO #### [facility] [address] [place] [address] Dr. Josie Sanchez HCG RANGE SEE BELOW Normal [facility] Comment on above: Result Comment: 5-50 0.2-1 WEEK 50-500 1-2 WEEKS 100-5,000 2-3 WEEKS 500-10,000 3-4 WEEKS 1,000-50,000 4-5 WEEKS 10,000-100,000 5-6 WEEKS 15,000-200,000 6-8 WEEKS 10,000-100,000 2-3 MONTHS Performed By: #### KIAN VALERIORO #### [facility] [address] [place] [address] Dr. Josie Sanchez HCG-BETA SUBUNIT QUANTon hCG,Beta Subunit,Qnt,Serum <1 Normal [facility] Comment on above: Result Comment: Fema le (Non-) 0 - 5 (Postmenopausal) 0 - 8 . Female () Weeks of Gestation 3 6 - 71 4 10 - 750 5 217 - 7138 6 158 - 65972 7 [phone] -[phone] 8 83123 -[phone] 9 15874 -[phone] 10 50030 -302440 12 82467 -[phone] 14 08147 - 19699 15 45861 - 98043 16 5894 - 46916 17 6160 - 72309 18 0057 - 06948 [facility] ECLIA methodology Performed By: #### KIAN VALERIORO #### [facility] [address] [place] [address] Dr. Josie Sanchez CBC AUTO DIFFon 02-18-2022 BASO # 0.0 103/ul Normal 0.0-0.1 [facility] Comment on above: Performed By: #### [place] BC #### [facility] [address] [place] [address] Dr. Josie Sanchez Basophils/100 WBC (Bld) 0.2 % Normal 0.2-2.0 [facility] Comment on above: Performed By: #### C BC #### [facility] [address] [place] [address] Dr. Josie Sanchez EO # 0.1 103/ul Normal 0.0-0.7 [facility] Comment on above: Performed By: #### C BC #### [facility] [address] [place] [address] Dr. Josie Sanchez Eosinophils/100 WBC (Bld) 0.8 % Critically low 0.9-7. 0 [facility] Comment on above: Performed By: #### C BC #### [facility] [address] [place] [address] Dr. Josie Sanchez Erythrocyte distribution width (RBC) [Ratio] 12.5 % Normal 11.0-15.0 [facility] Comment on above: Performed By: #### C BC #### [facility] [address] [place] [address] Dr. Josie Sanchez Hematocrit (Bld) [Volume fraction] 39.5 % Normal 36.0-48.0 [facility] Comment on above: Performed By: #### C BC #### [facility] [address] [place] [address] Dr. Josie Sanchez Hemoglobin (Bld) [Mass/Vol] 13.0 g/dL Normal 12.0-16.0 [facility] Comment on above: Performed By: #### C BC #### [facility] [address] [place] [address] Dr. Josie Sanchez IG # 0.02 10e3/ul Normal 0.00-0.03 [facility] Comment on above: Performed By: #### C BC #### [facility] [address] [place] [address] Dr. Josie Sanchez IG % 0.3 % Normal 0.0-0.5 [facility] Comment on above: Performed By: #### C BC #### [facility] [address] [place] [address] Dr. Josie Sanchez LYMPH # 1.5 103/ul Normal 1.2-3.8 [facility] Comment on above: Performed By: #### C BC #### [facility] [address] [place] [address] Dr. Josie Sanchez Lymphocytes/100 WBC (Bld) 22.9 % Normal 20.5-60.0 [facility] Comment on above: Performed By: #### C BC #### [facility] [address] [place] [address] Dr. Josie Sanchez MANUAL DIFF REQ NO Normal [facility] Comment on above: Performed By: #### C BC #### [facility] [address] [place] [address] Dr. Josie Sanchez MCH (RBC) [Entitic mass] 30.3 pg Normal 26.7-34.0 [facility] Comment on above: Performed By: #### C BC #### [facility] [address] [place] [address] Dr. Josie Sanchez MCHC (RBC) [Mass/Vol] 32.9 g/dL Normal 29.9-35.2 [facility] Comment on above: Performed By: #### C BC #### [facility] [address] [place] [address] Dr. Josie Sanchez MCV (RBC) [Entitic vol] 92.1 fL Normal 81.0-99.0 [facility] Comment on above: Performed By: #### C BC #### [facility] [address] [place] [address] Dr. Josie Sanchez MONO # 0.4 103/ul Normal 0.3-0.8 [facility] Comment on above: Performed By: #### C BC #### [facility] [address] [place] [address] Dr. Josie Sanchez Monocytes/100 WBC (Bld) 5.7 % Normal 1.7-12.0 [facility] Comment on above: Performed By: #### C BC #### [facility] [address] [place] [address] Dr. Josie Sanchez NEUT # 4.6 103/ul Normal 1.4-6.5 [facility] Comment on above: Performed By: #### C BC #### [facility] [address] [place] [address] Dr. Josie Sanchez Neutrophils/100 WBC (Bld) 70.1 % Normal 43.0-75.0 [facility] Comment on above: Performed By: #### C BC #### [facility] [address] [place] [address] Dr. Josie Sanchez Platelet mean volume (Bld) [Entitic vol] 10.0 fL Normal 9.5-13.5 [facility] Comment on above: Performed By: #### C BC #### [facility] [address] [place] [address] Dr. Josie Sanchez PLT 242 103/ul Normal 150-450 [facility] Comment on above: Performed By: #### C BC #### [facility] [address] [place] [address] Dr. Josie Sanchez RBC 4.29 106/ul Normal 4.20-5.40 [facility] Comment on above: Performed By: #### C BC #### [facility] [address] [place] [address] Dr. Josie Sanchez WBC 6.5 103/ul Normal 4.0-11.0 [facility] Comment on above: Performed By: #### C BC #### [facility] [address] [place] [address] Dr. Josie Sanchez LIPID PROFILEon 02-18-2022 CHOL-HDL RATIO NORM SEE BELOW Normal [facility] Comment on above: Result Comment: 3.3 - 4.4 LOW RISK 4.4 - 7.1 AVERAGE RISK 7.1 - 11.0 MODERATE RISK >11.0 HIGH RISK Performed By: #### L IPID, TSH #### [facility] [address] [place] [address] Dr. Josie Sanchez Cholesterol [Mass/Vol] 182 mg/dL Normal <=200 [facility] Comment on above: Performed By: #### L IPID, TSH #### [facility] [address] [place] [address] Dr. Josie Sanchez Cholesterol in HDL [Mass/Vol] 40 mg/dL Normal 40-60 [facility] Comment on above: Performed By: #### L IPID, TSH #### [facility] [address] [address] [address] Josie Sanchez Cholesterol in LDL [Mass/Vol] 122.4 mg/dL Normal [facility] Comment on above: Performed By: #### L IPID, TSH #### [facility] [address] [address] [address] Josie Sanchez Cholesterol.total/Choleste rol in HDL [Mass ratio] 4.6 {ratio} Normal [facility] Comment on above: Performed By: #### L IPID, TSH #### [facility] [address] [address] [address] Josie Sanchez HDL NORMAL > or = 60 mg/dl - LOW CARDIOVASCULAR RISK <40 mg/dl - HIGH CARDIOVASCULAR RISK Normal [facility] Comment on above: Performed By: #### L IPID, TSH #### [facility] [address] [address] [address] Josie Sanchez LDL CALC NORMAL SEE BELOW Normal [facility] Comment on above: Result Comment: <100 mg/dl OPTIMAL 100 - 129 mg/dl NEAR OR ABOVE OPTIMAL 130 - 159 mg/dl BORDERLINE HIGH 160 - 189 mg/dl HIGH >190 mg/dl VERY HIGH Performed By: #### L IPID, TSH #### [facility] [address] [address] [address] Josie Sanchez Triglyceride [Mass/Vol] 98 mg/dL Normal <=150 T [facility] Comment on above: Performed By: #### L IPID, TSH #### [facility] [address] [address] [address] Josie Sanchez VLDL CALC 19.6 mg/dL Normal [facility] Comment on above: Performed By: #### L IPID, TSH #### [facility] [address] [address] [address] Josie Sanchez PROTIMEon 02-18-2022 INR Coag (PPP) [Relative time] 1.10 {INR} Normal [facility] Comment on above: Performed By: #### P REGQNT #### [facility] [address] [place] [address] Dr. Josie Sanchez INR GUIDELINES SEE BELOW Normal [facility] Comment on above: Result Comment: PAULINA RED INR: 2.0 - 3.0 CONDITIONS NOT LISTED BELOW 2.5 - 3.5 FOR PROSTHETIC HEART VALVE REPLACEMENT 2.5 - 3.5 RECURRENT THROMBOSIS Performed By: #### P REGQNT #### [facility] [address] [place] [address] Dr. Josie Sanchez PT Coag (PPP) [Time] 11.8 s Critically high 9.0-11.6 [facility] Comment on above: Performed By: #### P REGQNT #### [facility] [address] [place] [address] Dr. Josie Sanchez PTTon 02-18-2022 aPTT Coag (Bld) [Time] 29.8 s Normal 22.3-36.2 [facility] Comment on above: Performed By: #### P REGQNT #### [facility] [address] [place] [address] Dr. Josie Sanchez TSHon 02-18-2022 TSH 3.410 uIU/mL Normal 0.358-3.740 [facility] Comment on above: Performed By: #### L IPID, TSH #### [facility] [address] [place] [address] Dr. Josie Sanchez US PELVIS AND TRANSVAGon [...] by: PEREZ DURBIN Date: 2022-02-18 18:56 Normal [facility] Nursing Note - Woundon 08-15 Nursing Note - Wound [id number] 34932#3.00CD:127 Normal [facility] Coding Summary.on 08-08-2020 Coding Summary. CODING DATE: 08/08/2020 FINAL [facility] STATUS: Home (Routine DC) PAYOR: [...] Jeannie Nur Date Saved: 08/08/2020 10:31 am [facility]son 08-08-2020 Forms [id number] 0459#1.00CD:127 Normal [facility] Home Health Recordson 2019 Home Health Records [id number] 3EFD#1.00CD:127 [facility] Ambulatory Clinical Summaryo n 07-26-2020 Ambulatory Clinical Summary {[id number] -[id number] -[id number]}CD:61 4368 [facility] Home [facility] Record[facility] 2019 Home Health Records [id number] 0EC7#1.00CD:127 [facility] Progress Note - Woundon 07-09 Progress Note - Wound [id number] 72291#2.00CD:127 [facility] Consent for Treatmenton 07-09 Consent for Treatment [id number] AFAA#1.00CD:127 [facility] Multi-Wound Charton 07-25-20 20 Multi-Wound Chart [id number] 67719#1.00CD:127 [facility] Nursing Assessment - Woundon 07-25-2020 Nursing Assessment - Wound [id number] 7.202 [id number] 29834#1.00CD:127 [facility] Physician Orderon 07-25-2020 Physician Order [id number] 58677#1.00CD:127 [facility] Home Health Record[facility] 2019 Home Health Records [id number] 3741#1.00CD:127 [facility] 2019 Home Health Records [id number] 3554#1.00CD:127 [facility] Coding Summary.on 07-12-2020 Coding Summary. 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 However, the narrative phrase printed from the coding software may appear abbreviated, or result in slightly different terminology. Coded By: Aicha Bledsoe CphT Date Saved: 07/12/2020 03:05 pm [facility] Coding Summary. 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 However, the narrative phrase printed from the coding software may appear abbreviated, or result in slightly different terminology. Coded By: Aicha Bledsoe CphT Date Saved: 07/12/2020 03:03 pm [facility] Multi-Wound Charton 07-12-20 20 Multi-Wound Chart [id number]#1.00CD:127 [facility] Nursing Assessment - Woundon 07-12-2020 Nursing Assessment - Wound [id number] 7. [id number] 72592#1.00CD:127 [facility] Nursing Note - Woundon 07-12 Nursing Note - Wound [id number] 55059#1.00CD:127 [facility] Consent for Procedure/Surger yon 07-11-2020 Consent for Procedure/Surgery [id number] 60549#1.00CD:127 [facility] Consent for Treatmenton Consent for Treatment [id number] B36A#1.00CD:127 [facility] Home Health Recordson 2019 Home Health Records [id number] [id number]#1.00CD:127 [facility] Home Health Records [id number]#1.00CD:127 [facility] Physician Orderon 07-11-2020 Physician Order [id number] 36989#1.00CD:127 [facility] Progress Note - Woundon Progress Note - Wound [id number] [id number] 60385#1.00CD:127 [facility] Nursing Note - Woundon 07-02 Nursing Note - Wound [id number] [id number] 18616#3.00CD:127 [facility] Consent for Procedure/Surger yon 06-28-2020 Consent for Procedure/Surgery 149.45.122.6. [id number] 0200#1.00CD:127 [facility] Consent to Photographon 06-10 Consent to Photograph 149.45.122.6. [id number] 0326#1.00CD:127 [facility] HIPAA Privacy Documentson HIPAA Privacy Documents [id number] 0158#1.00CD:127 [facility] Nursing Note - Woundon 06-28 Nursing Note - Wound 149.45.122.6. [id number] 0289#1.00CD:127 [facility] Nursing Note - Wound 149.45.122.6. [id number] 0217#1.00CD:127 [facility] Consent for Treatmenton 06-09 Consent for Treatment [id number] EEDA#1.00CD:127 [facility] Multi-Wound Charton 06-27-20 20 Multi-Wound Chart [id number] 74332#1.00CD:127 [facility] Nursing Assessment - Woundon 06-27-2020 Nursing Assessment - Wound 170.71.121.11 7.202 [id number] 33901#1.00CD:127 [facility] Physician Orderon 06-27-2020 Physician Order [id number] 08448#2.00CD:127 [facility] Progress Note - Woundon 06-09 Progress Note - Wound [id number] [id number] 30138#1.00CD:127 [facility] HIPAA Privacy Documentson HIPAA Privacy Documents [id number] 02 [id number] [id number]#1.00CD:127 [facility] Outside Records Officeon Outside Records Office [id number] 2 [id number]#1.00CD:127 [facility] Vital Signs Date Time Vital Sign Value Performing Clinician Facility 11-20-2022 15:05-0400 Body height 152.4 cm Gloria Jackelyn Other [facility] Other 11-20-2022 15:05-0400 Body mass index (BMI) [Ratio] 11.72 kg/m2 Gloria Jackelyn Other [facility] Other 11-20-2022 15:05-0400 Body temperature 97.7 [degF] Gloria Hayden Other [facility] Other 11-20-2022 15:05-0400 Body weight 27.22 kg Gloria Jackelyn Other [facility] Other 11-20-2022 15:05-0400 Respiratory rate 18 /min Gloria Hayden Other [facility] Other 11-20-2022 15:05 SaO2% (BldA) [Mass fraction] 97 % Gloria Hayden Other [facility] Other Encounters Encounter Date Encounter Type Care Provider Facility Start: 12-06-2023 End: 12-06-2023 ambulatory NORBERT PEÑAO Not Available Start: 11-22-2023 End: 11-22-2023 ambulatory NORBERT SILVIA Not Available Start: 09-20-2023 [facility] Result Encounter Norbert Silvia DO Work Phone: [facility] External Department Unsolicited Start: 09-20-2023 [facility] Result Encounter Norbert Silvia DO Work Phone: [facility] External Department Unsolicited Start: 08-23-2023 End: 08-23-2023 ambulatory NORBERT SILVIA Not Available Start: 07-07-2023 End: 07-07-2023 ambulatory NORBERT SILVIA Not Available Start: 12-21-2022 End: 12-21-[address] NORBERT VEGA . Facility:[facility] Start: 12-18-2022 End: 12-19-[address] NORBERT VEGA . Facility:[facility] Start: 11-20-2022 End: 11-20-2022 ambulatory Gloria Hayden Other [facility] Other Start: 11-20-2022 Office outpatient vi sit [...] laboratory examination DR NORBERT VEGA . [facility] Start: 05-08-2022 End: 05-08-[address] NORBERT [...] End: 02-19-[address] QUOC WATTS . Facility: Procedures Date Procedure Procedure Detail Performing Clinician Start: 09-20-2023 ALL CBC WITH AUTO DIFF Norbert Vega DO Work Phone: Payers Date Payer Category Payer Medicaid [id number] 2022 Medicaid [facility] [employer] BCBS MEDICA[place] [id number] 2022-Present [address] [place] [address] [id number] [id number] 1985 Unknown [id number] 2.16.840.1.186244.3.579.2.593 1985 Unknown [id number] 2.16.840.1.234142.3.579.2.593 1985 Unknown [id number] 2.16.840.1.211378.3.579.2.593 1985 Unknown [id number] 2.16.840.1.060826.3.579.2.593 1985 Unknown [id number] 2.16.840.1.031307.3.579.2.593 1985 Unknown [id number] 2.16.840.1.014055.3.579.2.593 1985 Unknown [id number] 2.16.840.1.901272.3.579.2.593 1985 Unknown [id number] 2.16.840.1.485286.3.579.2.593 1985 Unknown [id number] 2.16.840.1.678144.3.579.2.593 1985 Unknown [id number] 2.16.840.1.828540.3.579.2.593 1985 Unknown [id number] 2.16.840.1.617708.3.579.2.593 1985 Unknown [id number] 2.16.840.1.068583.3.579.2.593 1985 Unknown [id number] 2.16.840.1.438827.3.579.2.593 1985 Unknown [id number] 2.16.840.1.618991.3.579.2.593 1985 Unknown [id number] 2.16.840.1.017209.3.579.2.593 1985 Unknown [id number] 2.16.840.1.469924.3.579.2.593 1985 Unknown [id number] 2.16.840.1.348924.3.579.2.593 1985 Unknown [id number] 2.16.840.1.634099.3.579.2.593 1985 Unknown [id number] 2.16.840.1.618402.3.579.2.593 1985 Unknown [id number] 2.16.840.1.941194.3.579.2.593 1985 Unknown [id number] 2.16.840.1.685580.3.579.2.1259 1985 Unknown [id number] 2.16.840.1.259252.3.579.2.1259 1985 Unknown [id number] 2.16.840.1.539478.3.579.2.1259 1985 Unknown [id number] 2.16.840.1.206173.3.579.2.1259 1959 Self-pay 1959 Unknown [id number] Social History Date Type Detail Facility Unknown if ever smoked [facility] Other Start: 12-21-2022 Sex Assigned At [facility] Other Start: 12-21-2022 Tobacco smoking status [facility] Never smoked tobacco [facility] Start: 12-21-2022 Tobacco use and exposure Smokeless tobacco non-user [facility] Start: 08-23-2023 Alcohol intake Current drinke r of alcohol (finding) [facility] Start: 12-21-2022 History of Social function [facility] Start: 01-14-2023 Alcohol Comment caffeine intak e: occasionally [facility] Start: 1985 Sex Assigned At Not on file [facility] Evaluation note 11-20-2022 Note Date [...] Contact dermatitis home care material was printed [facility] Other Clinical Note 05-08-2022 Note Date & [...] by: PEREZ DURBIN Date: 2022-05-08 18:03 [facility] Clinical Note 05-08-2022 Note Date & Type Note Facility 05-08-2022 Note OPERATIVE NOTE OPERATION DATE: 05/08/2022 PROCEDURE: Suction D AND C. PREOPERATIVE DIAGNOSIS: 1. Suspected molar during first trimester. 2. Uterine mass approximately 4.5 cm. POSTOPERATIVE DIAGNOSIS: 1. Suspected molar during first trimester. 2. Uterine mass approximately 4.5 cm. 3. Significant large amounts of retained products. SURGEON: Norbert Vega D.O. BLOW MOLD MACHINE OPERATOR: None. BLOOD LOSS: 100 mL. URINE OUTPUT: [...] products of conception were removed using a 9-German suction curette tip. Excellent hemostasis was noted. The patient tolerated the procedure well. Sponge, lap, and needle counts were correct x 2. All instruments were then removed from the patient's vagina. The patient was taken to the Recovery Room in stable condition. ?? [facility] History general Narrative - Reported Note Date & Type Note Facility History general Narrative - Reported Type Medical History Hypercholesterolemia Medical History Hormone imbalance Medical History Vitamin D deficiency Medical History Iron deficiency Surgical History C section Surgical History oral surgery Surgical History tonsillectomy and adenoidectomy Surgical History D&C 2021 Hospitalization History child [facility] Other Summary Purpose Family History No Family History Records FoundNo Family History Records FoundNo Family History Records Found Advance Directives No Advanced Directives Records FoundNo Advanced Directives Records FoundNo Advanced Directives Records Found Additional Source Comments INFORMATION SOURCE (unrecogn ized section and content) DATE CREATED AUTHOR 08/15/2020 [facility] DATE CREATED AUTHOR AUTHOR'S ORGANIZ ATION 12/22/2022 [facility] DATE CREATED AUTHOR AUTHOR'S ORGANIZ ATION 12/07/2023 [facility] EPIC REASON FOR VISIT (unrecogniz ed section and content) HEAT RASH Care Teams (unrecognized sec tion and content) Saw Sharpener Relationship Specialty Start Date End Date Quoc Watts MD [address] [place] [address] PCP - General Family Medicine 12/28/22 FOR [...] BE BASED ON THE PRIMARY CLINICAL RECORDS. [employer] provides no warranty or guarantee of the accuracy or completeness of information in this document.
[2023-12-31 11:06] LABS: HCG Quantitative <1 mIU/mL
== END 2023-12-31 09:09 | disposition home or self-care (01) ==
LOC: LAB 09:08
PROVIDERS: PCP Family Medicine; Visit Provider Obstetrics & Gynecology
DX: N92.6 Irregular menstruation, unspecified (principal)
CPT/HCPCS: 36415; 84702

== ENCOUNTER 2023-12-31 09:09 | Outpatient (OUT) | payer MEDICAID, SELFPAY ==
[2023-12-31 09:33] LABS: Basophils Percent Auto 0.2 % (0.2-2.0); Eosinophils Percent Auto 0.7 % (0.9-7.0); Hemoglobin 12.7 g/dL (12.0-16.0); Immature Granulocytes Abs Auto 0.01 10^3/uL (0.00-0.03); Immature Granulocytes Pct Auto 0.2 % (0.0-0.5); Lymphocytes Absolute Auto 1.3 10^3/uL (1.2-3.8); Lymphocytes Percent Auto 23.9 % (20.5-60.0); Mean Corpuscular HGB Conc 32.6 g/dL (29.9-35.2); Mean Corpuscular Hemoglobin 29.2 pg (26.7-34.0); Mean Corpuscular Volume 89.7 fL (81.0-99.0); Mean Platelet Volume 10.2 fL (9.5-13.5); Monocytes Absolute Auto 0.4 10^3/uL (0.3-0.8); Monocytes Percent Auto 6.9 % (1.7-12.0); Neutrophils Absolute Auto 3.8 10^3/uL (1.4-6.5); Neutrophils Percent Auto 68.1 % (43.0-75.0); Platelet Count 220 10^3/uL (150-450); Red Blood Count 4.35 10^6/uL (4.20-5.40); Red Cell Distribution Width 12.9 % (11.0-15.0); White Blood Count 5.5 10^3/uL (4.0-11.0)
[2023-12-31 10:16] LABS: Estimated Average Glucose 111 mg/dL; Glycohemoglobin A1C 5.5 % (4.5-6.2)
[2023-12-31 11:06] LABS: Alanine Aminotransferase 26 U/L (14-59); Albumin Globulin Ratio 0.8; Albumin Level 3.7 g/dL (3.4-5.0); Alkaline Phosphatase 115 U/L (46-116); Anion Gap 13.8; Aspartate Amino Transferase 20 U/L (15-37); BUN Creatinine Ratio 12.9; Bilirubin Total 0.8 mg/dL (0.2-1.0); Calcium 9.4 mg/dL (8.5-10.1); Chloride 102 mmol/L (98-107); Cholesterol 226 mg/dL (<=200); Estimated GFR (African America >60 (>=60); Estimated GFR (Non-African Ame >60 (>=60); Free T3 2.86 pg/mL (2.18-3.98); Globulin 4.7 g/dL; Glucose 97 mg/dL (74-106); HDL Cholesterol 56 mg/dL (40-60); Potassium 3.8 mmol/L (3.5-5.1); Sodium 140 mmol/L (136-145); Thyroid Stimulating Hormone 2.572 uIU/mL (0.358-3.740); Total Protein 8.4 g/dL (6.4-8.2); Triglycerides 42 mg/dL (<=150); VLDL CHOLESTEROL 8.4 mg/dL
[2024-01-02 14:07] LABS: Insulin 9.9 uIU/mL (2.6-24.9)
== END 2023-12-31 09:10 | disposition home or self-care (01) ==
LOC: LAB 09:09
PROVIDERS: PCP Family Medicine; Visit Provider Family Medicine
DX: Z00.00 Encounter for general adult medical examination without abnormal findings (principal); N92.6 Irregular menstruation, unspecified; E78.5 Hyperlipidemia, unspecified; R73.9 Hyperglycemia, unspecified; D64.9 Anemia, unspecified; E55.9 Vitamin D deficiency, unspecified
CPT/HCPCS: 36415; 80053; 80061; 82306; 83036; 83525; 83540; 84436; 84443; 84481; 84702; 85025

== ENCOUNTER 2024-01-15 07:46 | Outpatient (OUT) | payer MEDICAID, SELFPAY ==
--- OUTSIDE RECORDS SUMMARY | 2024-01-15 07:49 | XMS_ITS ---
Patient Summarization (C-CDA 2.1 CCD) Created on: January 15, 2024 LB ANTONIO : 1985 Sex: Female Author Organization Sample organization Care Team Providers Care Test Department Helper Name Role Phone Gloria Hayden Unavailable MAC [...] KUMARI Primary Care Unavailable SILVIA ., DR TOUSASINT Admitting Unavailable SILVIA ., DR TOUSSAINT Attending [...] HOY ., DR KUMARI Primary Care Unavailable DERWENT, DR PEREZ Luther Consulting Unavailable SILVIA ., DR TOUSSAINT Attending Unavailable SILVIA ., DR TOUSSAINT Consulting Unavailable HOY ., DR KUMARI Primary Care Unavailable DERWENT, DR PEREZ Luther Consulting Unavailable SILVIA ., DR TOUSSAINT Admitting Unavailable SILVIA ., DR TOUSSAINT Attending Unavailable SILVIA ., DR TOUSSAINT Consulting Unavailable SILVIA ., DR TOUSSAINT Admitting Unavailable HOY ., DR KUMARI Primary Care Unavailable DERWENT, DR PEREZ Luther Consulting Unavailable SILVIA ., DR TOUSSAINT Attending Unavailable SILVIA ., DR TOUSSAINT Consulting Unavailable MONIQUE COLEMAN Consulting Unavaila ble SURESH, MONIQUE ONEILL Consulting Unava ilCLARA Pompa Consulting Unavailable SILVIA ., DR TOUSSAINT Admitting Unavailable SILVIA ., DR TOUSSAINT Consulting Unavailable HOY ., DR KUMARI Primary Care Unavailable SILVIA ., DR TOUSSAINT Attending Unavailable SILVIA ., DR TOUSSAINT Consulting Unavailable HOY ., DR KUMARI Primary Care Unavailable SILVIA ., DR TOUSSAINT Attending Unavailable SILVIA ., DR TOUSSAINT Admitting Unavailable Mac VILLARREAL, Quoc Cedeno Primary Care Provider [phone] NORBERT VEGA Attending Unavailable NORBERT VEGA Attending Unavailable NORBERT VEGA Attending Unavailable NORBERT VEGA Attending Unavailable Allergies Allergy Classification Reported Allergen(s) Allergy Type Date of Onset Reaction(s) Facility (1 source) Penicillin G Drug Allergy throat swelling [facility] Other (1 source) Cefaclor Drug Allergy [facility] Repository (2 sources) Penicillins Drug allergy (disorder) 01-26-[address] [facility] Repository (1 source) Penicillins Drug Intolerance 10-21-19 19 Unknown [facility] Work Phone: Encounters Encounter Date Encounter Type Care Provider Facility Start: 12-06-2023 End: 12-06-2023 ambulatory NORBERT VEGA Not Available Start: 11-22-2023 End: 11-22-2023 ambulatory NORBERT VEGA Not Available Start: 09-20-2023 [facility] Result Encounter [...] 11-20-2022 End: 11-20-2022 ambulatory Gloria Hayden Other [facility] Other Start: 11-20-2022 Office outpatient vi sit [...] preprocedural laboratory examination DR NORBERT VEGA . [facility] Start: 05-08-2022 End: 05-08-[address] [...] 02-19-[address] QUOC WATTS . Facility:[facility]1 Medications Current Medications Medication Drug Class(es) Dates [...] C 500 MG as directed Orally Active Payers Date Payer Category Payer Medicaid [id number] 2022 Medicaid [place] BC[place] [id number] 2022-Present [address] [place] [address] [id number] 1985 Unknown [id number] [id number]3 1985 Unknown [id number] 2.16840.1.761951.3.579.2.593 1985 Unknown [id number] 2.16.840.1.112913.3.579.2.593 1985 Unknown [id number] 2.16.840.1.615519.3.579.2.593 1985 Unknown [id number] 2.16.840.1.119316.3.579.2.593 1985 Unknown [id number] 2.16.840.1.136160.3.579.2.593 1985 Unknown [id number] 2.16.840.1.209656.3.579.2.593 1985 Unknown [id number] 2.16.840.1.686968.3.579.2.593 1985 Unknown [id number] 2.16.840.1.087273.3.579.2.593 1985 Unknown [id number] 2.16.840.1.737834.3.579.2.593 1985 Unknown [id number] 2.16.840.1.452235.3.579.2.593 1985 Unknown [id number] 2.16.840.1.343098.3.579.2.593 1985 Unknown [id number] 2.16.840.1.953253.3.579.2.593 1985 Unknown [id number] 2.16.840.1.780321.3.579.2.593 1985 Unknown [id number] 2.16840.1.681271.3.579.2.593 1985 Unknown [id number] 2.16840.1.250876.3.579.2.593 1985 Unknown [id number] 2.16840.1.005086.3.579.2.593 1985 Unknown [id number] 2.16840.1.124907.3.579.2.593 1985 Unknown [id number] 2.16840.1.888343.3.579.2.593 1985 Unknown [id number] 2.16.840.1.102489.3.579.2.593 1985 Unknown [id number] 2.16.840.1.608772.3.579.2.1259 1985 Unknown [id number] 2.16.840.1.748361.3.579.2.1259 1985 Unknown [id number] 2.16.840.1.406777.3.579.2.1259 1985 Unknown [id number] 2.16.840.1.480524.3.579.2.1259 1959 Self-pay 1959 Unknown [id number] Problems Active Problems Problem Classification Problem Date [...] SPONT AB W/O COMPLICATION] Onset: 05-26-2022 Episodic Procedures Date Procedure Procedure Detail Performing Clinician Start: 09-20-2023 ALL CBC WITH AUTO DIFF Norbertemma Vega DO Work Phone: Results Test Name Value Interpretation Reference Range Facility ALL CBC WITH AUTO DIFFon BASOPHILS ABSOLUTE AUTO 0.0 [facility] Basophils/100 WBC (Bld) 0.2 % 0.2 - 2.0 % [facility] Eosinophils/100 WBC (Bld) 0.8 % Low 0.9 - 7.0 % [facility] Erythrocyte distribution width (RBC) [Ratio] 13.4 % 11.0 - 15.0 % [facility] Hematocrit (Bld) [Volume fraction] 42.3 % 36.0 - 48.0 % [facility] Hemoglobin (Bld) [Mass/Vol] 13.6 g/dL 12.0 - 16.0 g/dL [facility] IMMATURE GRANULOCYTES ABS AUTO 0.02 [facility] Immature granulocytes/100 WBC (Bld) 0.3 % 0.0 - 0.5 % [facility] Interpretation and review of laboratory results Abnormal [facility] LYMPHOCYTES ABSOLUTE AUTO 1.7 [facility] Lymphocytes/100 WBC (Bld) 26.5 % 20 .5 - 60.0 % [facility] MCH (RBC) [Entitic mass] 30.1 pg 26. 7 - 34.0 pg [facility] MCHC (RBC) [Mass/Vol] 32.2 g/dL 29.9 - 35.2 g/dL [facility] MCV (RBC) [Entitic vol] 93.6 fL 81.0 - 99.0 fL [facility] MONOCYTES ABSOLUTE AUTO 0.5 [facility] Monocytes/100 WBC (Bld) 7.3 % 1.7 - 12.0 % [facility] NEUTROPHILS ABSOLUTE AUTO 4.3 [facility] Neutrophils/100 WBC (Bld) 64.9 % 43 .0 - 75.0 % [facility] Platelet mean volume (Bld) [Entitic vol] 10.8 fL 9.5 - 13.5 fL [facility] TBH EO # 0.1 [facility] PLT 220 [facility] RBC 4.52 [facility] WBC 6.5 [facility] PROGESTERONEon 12-19-2022 Progesterone 9.6 ng/mL Normal [facility] Comment on above: Result Comment: Foll icular phase 0.1 - 0.9 Luteal phase 1.8 - 23.9 Ovulation phase 0.1 - 12.0 First trimester 11.0 - 44.3 Second trimester 25.4 - 83.3 Third trimester 58.7 - 214.0 Postmenopausal 0.0 - 0.1 Performed By: #### P DAXA #### [facility] [address] [place] [address] Dr. Josie Sanchez PROGESTERONEon 11-19-2022 Progesterone 6.3 ng/mL Normal [facility] Comment on above: Result Comment: Foll icular phase 0.1 - 0.9 Luteal phase 1.8 - 23.9 Ovulation phase 0.1 - 12.0 First trimester 11.0 - 44.3 Second trimester 25.4 - 83.3 Third trimester 58.7 - 214.0 Postmenopausal 0.0 - 0.1 Performed By: #### P DAXA #### [facility] [address] [place] [address] Dr. Josie Sanchez PREG QUANT HCGon 11-18-2022 HCG QUANT <[address] [facility] Comment on above: Performed By: #### P REGQNT #### [facility] [address] [place], [place] [address] Dr. Josie Sanchez HCG RANGE SEE BELOW Normal [facility] Comment on above: Result Comment: 5-50 0.2-1 WEEK 50-500 1-2 WEEKS 100-5,000 2-3 WEEKS 500-10,000 3-4 WEEKS 1,000-50,000 4-5 WEEKS 10,000-100,000 5-6 WEEKS 15,000-200,000 6-8 WEEKS 10,000-100,000 2-3 MONTHS Performed By: #### P REGQNT #### [facility] [address] [place], [place] [address] Dr. Josie Sanchez US PELVIS AND TRANSVAGon [...] of a yolk sac as noted by certified neurodiagnostic technologist. No significant free pelvic fluid is [...] by: RENE MEYERS Date: 2022-11-16 18:[address] [facility] DHEA SERUMon 11-11-2022 Dehydroepiandrosterone (DHEA) 335 ng/dL Normal 31-701 [facility] Comment on above: Performed By: #### E RUR, UMICRO #### [facility] [address] [place] [address] Dr. Josie Sanchez DHEA-SULFATEon 11-10-2022 DHEA-Sulfate 251.0 ug/dL Normal 57.3-279.2 [facility] Comment on above: Performed By: #### P REGQNT #### [facility] [address] [place] [address] Dr. Josie Sanchez ESTRADIOLon 11-10-2022 Estradiol 66.1 pg/mL Normal [facility] Comment on above: Result Comment: Adul t Female: Follicular phase 12.5 - 166.0 Ovulation phase 85.8 - 498.0 Luteal phase 43.8 - 211.0 Postmenopausal <6.0 - 54.7 1st trimester 215.0 - >4300.0 [facility] ECLIA methodology Performed By: #### RILEY VALERIO #### [facility] [address] [place] [address] Dr. Josie Sanchez FSHon 11-10-2022 FSH 6.9 mIU/mL Normal [facility] Comment on above: Result Comment: Adul t Female: Follicular phase 3.5 - 12.5 Ovulation phase 4.7 - 21.5 Luteal phase 1.7 - 7.7 Postmenopausal 25.8 - 134.8 Performed By: #### P REGQNT #### [facility] [address] [place] [address] Dr. Josie Sanchez LUTEINIZING HORMONE (LH)on 0 11-10-2022 LH 9.9 mIU/mL Normal [facility] Comment on above: Result Comment: Adul t Female: Follicular phase 2.4 - 12.6 Ovulation phase 14.0 - 95.6 Luteal phase 1.0 - 11.4 Postmenopausal 7.7 - 58.5 Performed By: #### RILEY VALERIO #### [facility] [address] [place] [address] Dr. Josie Sanchez CBC AUTO DIFFon 11-09-2022 BASO # 0.0 103/ul Normal 0.0-0.[address] [facility] Comment on above: Performed By: #### RILEY VALERIO #### [facility] [address] [place] [address] Dr. Josie Sanchez Basophils/100 WBC (Bld) 0.3 % Normal 0.2-2.0 [facility] Comment on above: Performed By: #### E MIGUELANGEL UMICRO #### [facility] [address] [place] [address] Dr. Josie Sanchez EO # 0.0 103/ul Normal 0.0-0.[address] [facility] Comment on above: Performed By: #### Clyde MEANS, UMICRO #### [facility] [address] [place] [address] Dr. Josie Sanchez Eosinophils/100 WBC (Bld) 0.5 % Critically low 0.9-7. [address] [facility] Comment on above: Performed By: #### Clyde MEANS UMICRO #### [facility] [address] [place] [address] Dr. Josie Sanchez Erythrocyte distribution width (RBC) [Ratio] 13.2 % Normal 11.0-15.[address] [facility] Comment on above: Performed By: #### Clyde MEANS UMICRO #### [facility] [address] [place] [address] Dr. Josie Sanchez Hematocrit (Bld) [Volume fraction] 41.8 % Normal 36.0-48.[address] [facility] Comment on above: Performed By: #### Clyde MEANS UMICRO #### [facility] [address] [place] [address] Dr. Josie Sanchez Hemoglobin (Bld) [Mass/Vol] 13.7 g/dL Normal 12.0-16.[address] [facility] Comment on above: Performed By: #### Clyde MEANS UMICRO #### [facility] [address] [place] [address] Dr. Josie Sanchez IG # 0.02 10e3/ul Normal 0.00-0.[address] [facility] Comment on above: Performed By: #### Clyde MEANS, UMICRO #### [facility] [address] [place] [address] Dr. Josie Sanchez IG % 0.3 % Normal 0.0-0.[address] [facility] Comment on above: Performed By: #### RILEY VALERIO #### [facility] [address] [place] [address] Dr. Josie Sanchez LYMPH # 1.2 103/ul Normal 1.2-3.[address] [facility] Comment on above: Performed By: #### KIAN VALERIORO #### [facility] [address] [place] [address] Dr. Josie Sanchez Lymphocytes/100 WBC (Bld) 18.4 % Critically low 20.5-[address] [facility] Comment on above: Performed By: #### KIAN VALERIORO #### [facility] [address] [place] [address] Dr. Josie Sanchez MANUAL DIFF REQ NO Normal [facility] Comment on above: Performed By: #### KIAN VALERIORO #### [facility] [address] [place] [address] Dr. Josie Sanchez MCH (RBC) [Entitic mass] 29.5 pg Normal 26.7-34.[address] [facility] Comment on above: Performed By: #### RILEY VALERIO #### [facility] [address] [place] [address] Dr. Josie Sanchez MCHC (RBC) [Mass/Vol] 32.8 g/dL Normal 29.9-35.[address] [facility] Comment on above: Performed By: #### KIAN VALERIORO #### [facility] [address] [place] [address] Dr. Josie Sanchez MCV (RBC) [Entitic vol] 89.9 fL Normal 81.0-99.0 [facility] Comment on above: Performed By: #### KIAN VALERIORO #### [facility] [address] [place] [address] Dr. Josie Sanchez MONO # 0.3 103/ul Normal 0.3-0.[address] [facility] Comment on above: Performed By: #### KIAN VALERIORO #### [facility] [address] [place] [address] Dr. Josie Sanchez Monocytes/100 WBC (Bld) 5.1 % Normal 1.7-12.0 [facility] Comment on above: Performed By: #### Clyde MEANS UMICRO #### [facility] [address] [place] [address] Dr. Josie Sanchez NEUT # 4.8 103/ul Normal 1.4-6.[address] [facility] Comment on above: Performed By: #### Clyde MEANS UMICRO #### [facility] [address] [place] [address] Dr. Josie Sanchez Neutrophils/100 WBC (Bld) 75.4 % Critically high 43.0- 75.[address] [facility] Comment on above: Performed By: #### ROBERT VALERIOICRO #### [facility] [address] [place] [address] Dr. Josie Sanchez Platelet mean volume (Bld) [Entitic vol] 9.8 fL Normal 9.5-13.[address] [facility] Comment on above: Performed By: #### ROBERT VALERIOICRO #### [facility] [address] [place] [address] Dr. Josie Sanchez PLT 256 103/ul Normal 150-[address] [facility] Comment on above: Performed By: #### Clyde MEANS UMICRO #### [facility] [address] [place] [address] Dr. Josie Sanchez RBC 4.65 106/ul Normal 4.20-5.[address] [facility] Comment on above: Performed By: #### Clyde MEANS UMICRO #### [facility] [address] [place] [address] Dr. Josie Sanchez WBC 6.4 103/ul Normal 4.0-11.[address] [facility] Comment on above: Performed By: #### Clyde MEANS UMICRO #### [facility] [address] [place] [address] Dr. Josie Sanchez FERRITINon 11-09-2022 Ferritin [Mass/Vol] 42.0 ng/mL Normal 6.2-137.0 [facility] Comment on above: Performed By: #### Clyde MEANS UMICRO #### [facility] [address] [place] [address] Dr. Josie Sanchez FREE T4on 11-09-2022 Free T4 [Mass/Vol] 0.87 ng/dL Normal 0.76-1.46 [facility] Comment on above: Performed By: #### Clyde MEANS UMICRO #### [facility] [address] [place] [address] Dr. Josie Sanchez GLYCOHEMOGLOBIN A1Con 2022 ADA RECOMMENDATION SEE BELOW Normal [facility] Comment on above: Result Comment: ADA RECOMMENDED LIMIT 4.0 - 6.0 ADA THERAPEUTIC TARGET < 7.0 ACTION SUGGESTED > 7.0 Performed By: #### Clyde MEANS UMICRO #### [facility] [address] [place] [address] Dr. Josie Sanchez Glucose [Mass/Vol] 100 mg/dL Normal [facility] Comment on above: Performed By: #### Clyde MEANS UMICRO #### [facility] [address] [place] [address] Dr. Josie Sanchez HbA1c (Bld) [Mass fraction] 5.1 % Normal 4.5-6.[address] [facility] Comment on above: Performed By: #### Clyde MEANS UMICRO #### [facility] [address] [place] [address] Dr. Josie Sanchez PREG QUANT HCGon 11-09-2022 HCG QUANT <[address] [facility] Comment on above: Performed By: #### Clyde MEANS, UMICRO #### [facility] [address] [place] [address] Dr. Josie Sanchez HCG RANGE SEE BELOW Normal [facility] Comment on above: Result Comment: 5-50 0.2-1 WEEK 50-500 1-2 WEEKS 100-5,000 2-3 WEEKS 500-10,000 3-4 WEEKS 1,000-50,000 4-5 WEEKS 10,000-100,000 5-6 WEEKS 15,000-200,000 6-8 WEEKS 10,000-100,000 2-3 MONTHS Performed By: #### RILEY VALERIO #### [facility] [address] [place] [address] Dr. Josie Sanchez TSHon 11-09-2022 TSH 2.163 uIU/mL Normal 0.358-3.740 [facility] Comment on above: Performed By: #### RILEY VALERIO #### [facility] [address] [place] [address] Dr. Josie Sanchez PROGESTERONEon 08-29-2022 Progesterone 7.3 ng/mL Normal [facility] Comment on above: Result Comment: Foll icular phase 0.1 - 0.9 Luteal phase 1.8 - 23.9 Ovulation phase 0.1 - 12.0 First trimester 11.0 - 44.3 Second trimester 25.4 - 83.3 Third trimester 58.7 - 214.0 Postmenopausal 0.0 - 0.1 Performed By: #### P DAXA #### [facility] [address] [place] [address] Dr. Josie Sanchez INSULINon 08-13-2022 Insulin 12.5 uIU/mL Normal 2.6-24.[address] [facility] Comment on above: Performed By: #### Roni REGQNT #### [facility] [address] [place] [address] Dr. Josie Sanchez CBC AUTO DIFFon 08-12-2022 BASO # 0.0 103/ul Normal 0.0-0.[address] [facility] Comment on above: Performed By: #### RILEY VALERIO #### [facility] [address] [place] [address] Dr. Josie Sanchez Basophils/100 WBC (Bld) 0.2 % Normal 0.2-2.0 [facility] Comment on above: Performed By: #### RILEY VALERIO #### [facility] [address] [place] [address] Dr. Josie Sanchez EO # 0.1 103/ul Normal 0.0-0.[address] [facility] Comment on above: Performed By: #### RILEY VALERIO #### [facility] [address] [place] [address] Dr. Josie Sanchez Eosinophils/100 WBC (Bld) 0.8 % Critically low 0.9-7. [address] [facility] Comment on above: Performed By: #### RILEY VALERIO #### [facility] [address] [place] [address] Dr. Josie Sanchez Erythrocyte distribution width (RBC) [Ratio] 14.0 % Normal 11.0-15.[address] [facility] Comment on above: Performed By: #### KIAN VALERIORO #### [facility] [address] [place] [address] Dr. Josie Sanchez Hematocrit (Bld) [Volume fraction] 39.5 % Normal 36.0-48.[address] [facility] Comment on above: Performed By: #### KIAN VALERIORO #### [facility] [address] [place] [address] Dr. Josie Sanchez Hemoglobin (Bld) [Mass/Vol] 12.7 g/dL Normal 12.0-16.0 [facility] Comment on above: Performed By: #### RILEY VALERIO #### [facility] [address] [place] [address] Dr. Josie Sanchez IG # 0.02 10e3/ul Normal 0.00-0.03 [facility] Comment on above: Performed By: #### KIAN VALERIORO #### [facility] [address] [place] [address] Dr. Josie Sanchez IG % 0.3 % Normal 0.0-0.5 [facility] Comment on above: Performed By: #### KIAN VALERIORO #### [facility] [address] [place] [address] Dr. Josie Sanchez LYMPH # 1.6 103/ul Normal 1.2-3.[address] [facility] Comment on above: Performed By: #### RILEY VALERIO #### [facility] [address] [place] [address] Dr. Josie Sanchez Lymphocytes/100 WBC (Bld) 26.9 % Normal 20.5-60.[address] [facility] Comment on above: Performed By: #### KIAN VALERIORO #### [facility] [address] [place] [address] Dr. Josie Sanchez MANUAL DIFF REQ NO Normal [facility] Comment on above: Performed By: #### Clyde MEANS UMICRO #### [facility] [address] [place] [address] Dr. Josie Sanchez MCH (RBC) [Entitic mass] 28.3 pg Normal 26.7-34.[address] [facility] Comment on above: Performed By: #### ROBERT VALERIOICRO #### [facility] [address] [place] [address] Dr. Josie Sanchez MCHC (RBC) [Mass/Vol] 32.2 g/dL Normal 29.9-35.[address] [facility] Comment on above: Performed By: #### ROBERT VALERIOICRO #### [facility] [address] [place] [address] Dr. Josie Sanchez MCV (RBC) [Entitic vol] 88.0 fL Normal 81.0-99.0 [facility] Comment on above: Performed By: #### Clyde MEANS UMICRO #### [facility] [address] [place] [address] Dr. Josie Sanchez MONO # 0.4 103/ul Normal 0.3-0.[address] [facility] Comment on above: Performed By: #### Clyde MEANS UMICRO #### [facility] [address] [place] [address] Dr. Josie Sanchez Monocytes/100 WBC (Bld) 7.1 % Normal 1.7-12.0 [facility] Comment on above: Performed By: #### Clyde MEANS UMICRO #### [facility] [address] [place] [address] Dr. Josie Sanchez NEUT # 3.8 103/ul Normal 1.4-6.[address] [facility] Comment on above: Performed By: #### KIAN VALERIORO #### [facility] [address] [place] [address] Dr. Josie Sanchez Neutrophils/100 WBC (Bld) 64.7 % Normal 43.0-75.[address] [facility] Comment on above: Performed By: #### ROBERT VALERIOICRO #### [facility] [address] [place] [address] Dr. Josie Sanchez Platelet mean volume (Bld) [Entitic vol] 10.1 fL Normal 9.5-13.[address] [facility] Comment on above: Performed By: #### Clyde MEANS UMICRO #### [facility] [address] [place] [address] Dr. Josie Sanchez PLT 211 103/ul Normal 150-[address] [facility] Comment on above: Performed By: #### Clyde MEANS UMICRO #### [facility] [address] [place] [address] Dr. Josie Sanchez RBC 4.49 106/ul Normal 4.20-5.[address] [facility] Comment on above: Performed By: #### Clyde MEANS UMICRO #### [facility] [address] [place] [address] Dr. Josie Sanchez WBC 5.9 103/ul Normal 4.0-11.[address] [facility] Comment on above: Performed By: #### Clyde MEANS UMICRO #### [facility] [address] [place] [address] Dr. Josie Sanchez FREE THYROXINE INDEX T7on FTI 2.63 Normal 1.30-4.[address] [facility] Comment on above: Performed By: #### ROBERT VALERIOICRO #### [facility] [address] [place] [address] Dr. Josie Sanchez T3U 35.0 % Normal 30.0-39.[address] [facility] Comment on above: Performed By: #### Clyde MEANS UMICRO #### [facility] [address] [place] [address] Dr. Josie Sanchez T4 [Mass/Vol] 7.50 ug/dL Normal 4.80-13.90 [facility] Comment on above: Performed By: #### RILEY VALERIO #### [facility] [address] [place] [address] Dr. Josie Sanchez GLYCOHEMOGLOBIN A1Con 2022 ADA RECOMMENDATION SEE BELOW Normal [facility] Comment on above: Result Comment: ADA RECOMMENDED LIMIT 4.0 - 6.0 ADA THERAPEUTIC TARGET < 7.0 ACTION SUGGESTED > 7.0 Performed By: #### RILEY VALERIO #### [facility] [address] [place] [address] Dr. Josie Sanchez Glucose [Mass/Vol] 111 mg/dL Normal [facility] Comment on above: Performed By: #### RILEY VALERIO #### [facility] [address] [place] [address] Dr. Josie Sanchez HbA1c (Bld) [Mass fraction] 5.5 % Normal 4.5-6.[address] [facility] Comment on above: Performed By: #### RILEY VALERIO #### [facility] [address] [place] [address] Dr. Josie Sanchez IRONon 08-12-2022 Iron [Mass/Vol] 40.0 ug/dL Critically low 50.0-170.0 [facility] Comment on above: Performed By: #### P REGQNT #### [facility] [address] [place] [address] Dr. Josie Sanchez LIPID PROFILEon 08-12-2022 CHOL-HDL RATIO NORM SEE BELOW Normal [facility] Comment on above: Result Comment: 3.3 - 4.4 LOW RISK 4.4 - 7.1 AVERAGE RISK 7.1 - 11.0 MODERATE RISK >11.0 HIGH RISK Performed By: #### P REGQNT #### [facility] [address] [place] [address] Dr. Josie Sanchez Cholesterol [Mass/Vol] 183 mg/dL Normal <=200 [facility] Comment on above: Performed By: #### P REGQNT #### [facility] [address] [address] [address] Josie Sanchez Cholesterol in HDL [Mass/Vol] 40 mg/dL Normal 40-[address] [facility] Comment on above: Performed By: #### P REGQNT #### [facility] [address] [address] [address] Josie Sanchez Cholesterol in LDL [Mass/Vol] 131.0 mg/dL Normal [facility] Comment on above: Performed By: #### P REGQNT #### [facility] [address] [address] [address] Josie Sanchez Cholesterol.total/Choleste rol in HDL [Mass ratio] 4.6 {ratio} Normal [facility] Comment on above: Performed By: #### P REGQNT #### [facility] [address] [address] [address] Josie Sanchez HDL NORMAL > or = 60 mg/dl - LOW CARDIOVASCULAR RISK <40 mg/dl - HIGH CARDIOVASCULAR RISK Normal [facility] Comment on above: Performed By: #### P REGQNT #### [facility] [address] [address] [address] Josie Sancehz LDL CALC NORMAL SEE BELOW Normal [facility] Comment on above: Result Comment: <100 mg/dl OPTIMAL 100 - 129 mg/dl NEAR OR ABOVE OPTIMAL 130 - 159 mg/dl BORDERLINE HIGH 160 - 189 mg/dl HIGH >190 mg/dl VERY HIGH Performed By: #### P REGQNT #### [facility] [address] [address] [address] Josie Sanchez Triglyceride [Mass/Vol] 60 mg/dL Normal <=150 [facility] Comment on above: Performed By: #### P REGQNT #### [facility] [address] [address] [address] Josie Sanchez VLDL CALC 12.0 mg/dL Normal [facility] Comment on above: Performed By: #### P REGQNT #### [facility] [address] [place] [address] Dr. Josie Sanchez PROF 14(COMP METB)on 023 Albumin [Mass/Vol] 3.7 g/dL Normal 3.4-5.0 [facility] Comment on above: Performed By: #### RILEY VALERIO #### [facility] [address] [place] [address] Dr. Josie Sanchez Albumin/Globulin [Mass ratio] 0.9 {ratio} Normal [facility] Comment on above: Performed By: #### RILEY VALERIO #### [facility] [address] [place] [address] Dr. Josie Sanchez ALP [Catalytic activity/Vol] 131 U/L Critically high 46-[address] [facility] Comment on above: Performed By: #### RILEY VALERIO #### [facility] [address] [place] [address] Dr. Josie Sanchez ALT [Catalytic activity/Vol] 23 U/L Normal 14-[address] [facility] Comment on above: Performed By: #### RILEY VALERIO #### [facility] [address] [place] [address] Dr. Josie Sanchez Anion gap [Moles/Vol] 10.5 mmol/L Normal [facility] Comment on above: Performed By: #### RILEY VALERIO #### [facility] [address] [place] [address] Dr. Josie Sanchez AST [Catalytic activity/Vol] 18 U/L Normal 15-[address] [facility] Comment on above: Performed By: #### RILEY VALERIO #### [facility] [address] [place] [address] Dr. Josie Sanchez Bilirubin [Mass/Vol] 0.7 mg/dL Normal 0.2-1.[address] [facility] Comment on above: Performed By: #### RILEY VALERIO #### [facility] [address] [place] [address] Dr. Josie Sanchez Calcium [Mass/Vol] 8.7 mg/dL Normal 8.5-10.1 [facility] Comment on above: Performed By: #### RILEY VALERIO #### [facility] [address] [place] [address] Dr. Josie Sanchez Chloride [Moles/Vol] 103 mmol/L Normal 98-[address] [facility] Comment on above: Performed By: #### KIAN VALERIORO #### [facility] [address] [place] [address] Dr. Josie Sanchez CO2 [Moles/Vol] 30.1 mmol/L Normal 21.0-32.0 [facility] Comment on above: Performed By: #### KIAN VALERIORO #### [facility] [address] [place] [address] Dr. Josie Sanchez Creatinine [Mass/Vol] 0.66 mg/dL Normal 0.55-1.[address] [facility] Comment on above: Performed By: #### KIAN VALERIORO #### [facility] [address] [place] [address] Dr. Josie Sanchez EGFR-AF KITTITIAN >60 Normal >=60 [facility] Comment on above: Performed By: #### KIAN VALERIORO #### [facility] [address] [place] [address] Dr. Josie Sanchez EGFR-NON AF KITTITIAN >60 Normal >=[address] [facility] Comment on above: Performed By: #### KIAN VALERIORO #### [facility] [address] [place] [address] Dr. Josie Sanchez Globulin (S) [Mass/Vol] 4.3 g/dL Normal [facility] Comment on above: Performed By: #### KIAN VALERIORO #### [facility] [address] [place] [address] Dr. Josie Sanchez Glucose [Mass/Vol] 90 mg/dL Normal 74-106 [facility] Comment on above: Performed By: #### KIAN VALERIORO #### [facility] [address] [place] [address] Dr. Josie Sanchez Potassium [Moles/Vol] 3.6 mmol/L Normal 3.5-5.[address] [facility] Comment on above: Performed By: #### E RUR, UMICRO #### [facility] [address] [place] [address] Dr. oJsie Sanchez Protein [Mass/Vol] 8.0 g/dL Normal 6.4-8.2 [facility] Comment on above: Performed By: #### E YOSELINR, UMICRO #### [facility] [address] [place] [address] Dr. Josie Sanchez Sodium [Moles/Vol] 140 mmol/L Normal 136-145 [facility] Comment on above: Performed By: #### E MIGUELANGEL, UMICRO #### [facility] [address] [place] [address] Dr. Josie Sanchez Urea nitrogen [Mass/Vol] 12.0 mg/dL Normal 7.0-18.[address] [facility] Comment on above: Performed By: #### Clyde MEANS UMICRO #### [facility] [address] [place] [address] Dr. Josie Sanchez Urea nitrogen/Creatinine [Mass ratio] 18.2 mg/mg Normal [facility] Comment on above: Performed By: #### Clyde MEANS UMICRO #### [facility] [address] [place] [address] Dr. Josie Sanchez TSHon 08-12-2022 TSH 3.070 uIU/mL Normal 0.358-3.740 [facility] Comment on above: Performed By: #### P REGQNT #### [facility] [address] [place] [address] Dr. Josie Sanchez PREG QUANT HCGon 06-22-2022 HCG QUANT 1 mIU/mL Normal [facility] Comment on above: Performed By: #### E MIGUELANGEL, UMICRO #### [facility] [address] [place] [address] Dr. Josie Sanchze HCG RANGE SEE BELOW Normal [facility] Comment on above: Result Comment: 5-50 0.2-1 WEEK 50-500 1-2 WEEKS 100-5,000 2-3 WEEKS 500-10,000 3-4 WEEKS 1,000-50,000 4-5 WEEKS 10,000-100,000 5-6 WEEKS 15,000-200,000 6-8 WEEKS 10,000-100,000 2-3 MONTHS Performed By: #### RILEY VALERIO #### [facility] [address] [place] [address] Dr. Josie Sanchez PREG QUANT HCGon 05-20-2022 HCG QUANT 6 mIU/mL Normal [facility] Comment on above: Performed By: #### P REGQNT #### [facility] [address] [place] [address] Dr. Josie Sanchez HCG RANGE SEE BELOW Normal [facility] Comment on above: Result Comment: 5-50 0.2-1 WEEK 50-500 1-2 WEEKS 100-5,000 2-3 WEEKS 500-10,000 3-4 WEEKS 1,000-50,000 4-5 WEEKS 10,000-100,000 5-6 WEEKS 15,000-200,000 6-8 WEEKS 10,000-100,000 2-3 MONTHS Performed By: #### P REGQNT #### [facility] [address] [place] [address] Dr. Josie Sanchez PREG QUANT HCGon 05-14-2022 HCG QUANT 26 mIU/mL Normal [facility] Comment on above: Performed By: #### P REGQNT #### [facility] [address] [place] [address] Dr. Josie Sanchez HCG RANGE SEE BELOW Normal [facility] Comment on above: Result Comment: 5-50 0.2-1 WEEK 50-500 1-2 WEEKS 100-5,000 2-3 WEEKS 500-10,000 3-4 WEEKS 1,000-50,000 4-5 WEEKS 10,000-100,000 5-6 WEEKS 15,000-200,000 6-8 WEEKS 10,000-100,000 2-3 MONTHS Performed By: #### P REGQNT #### [facility] [address] [place] [address] Dr. Josie Sanchez CBC AUTO DIFFon 05-08-2022 BASO # 0.0 103/ul Normal 0.0-0.[address] [facility] Comment on above: Performed By: #### RILEY VALERIO #### [facility] [address] [place] [address] Dr. Josie Sanchez Basophils/100 WBC (Bld) 0.2 % Normal 0.2-2.0 [facility] Comment on above: Performed By: #### Clyde MEANS UMICRO #### [facility] [address] [place] [address] Dr. Josie Sanchez EO # 0.0 103/ul Normal 0.0-0.[address] [facility] Comment on above: Performed By: #### ROBERT VALERIOICRO #### [facility] [address] [place] [address] Dr. Josie Sanchez Eosinophils/100 WBC (Bld) 0.5 % Critically low 0.9-7. [address] [facility] Comment on above: Performed By: #### KIAN VALERIORO #### [facility] [address] [place] [address] Dr. Josie Sanchez Erythrocyte distribution width (RBC) [Ratio] 12.8 % Normal 11.0-15.[address] [facility] Comment on above: Performed By: #### KIAN VALERIORO #### [facility] [address] [place] [address] Dr. Josie Sanchez Hematocrit (Bld) [Volume fraction] 41.0 % Normal 36.0-48.[address] [facility] Comment on above: Performed By: #### KIAN VALERIORO #### [facility] [address] [place] [address] Dr. Josie Sanchez Hemoglobin (Bld) [Mass/Vol] 13.4 g/dL Normal 12.0-16.[address] [facility] Comment on above: Performed By: #### ROBERT VALERIOICRO #### [facility] [address] [place] [address] Dr. Josie Sanchez IG # 0.02 10e3/ul Normal 0.00-0.[address] [facility] Comment on above: Performed By: #### KIAN VALERIORO #### [facility] [address] [place] [address] Dr. Josie Sanchez IG % 0.3 % Normal 0.0-0.[address] [facility] Comment on above: Performed By: #### RILEY VALERIO #### [facility] [address] [place] [address] Dr. Josie Sanchez LYMPH # 1.6 103/ul Normal 1.2-3.[address] [facility] Comment on above: Performed By: #### KIAN VALERIORO #### [facility] [address] [place] [address] Dr. Josie Sanchez Lymphocytes/100 WBC (Bld) 27.1 % Normal 20.5-60.[address] [facility] Comment on above: Performed By: #### KIAN VALERIORO #### [facility] [address] [place] [address] Dr. Josie Sanchez MANUAL DIFF REQ NO Normal [facility] Comment on above: Performed By: #### KIAN VALERIORO #### [facility] [address] [place] [address] Dr. Josie Sanchez MCH (RBC) [Entitic mass] 29.3 pg Normal 26.7-34.[address] [facility] Comment on above: Performed By: #### KIAN VLAERIORO #### [facility] [address] [place] [address] Dr. Josie Sanchez MCHC (RBC) [Mass/Vol] 32.7 g/dL Normal 29.9-35.[address] [facility] Comment on above: Performed By: #### KIAN VALERIORO #### [facility] [address] [place] [address] Dr. Josie Sanchez MCV (RBC) [Entitic vol] 89.5 fL Normal 81.0-99.0 [facility] Comment on above: Performed By: #### KIAN VALERIORO #### [facility] [address] [place] [address] Dr. Josie Sanchez MONO # 0.5 103/ul Normal 0.3-0.[address] [facility] Comment on above: Performed By: #### RILEY VALERIO #### [facility] [address] [place] [address] Dr. Josie Sanchez Monocytes/100 WBC (Bld) 8.6 % Normal 1.7-12.0 [facility] Comment on above: Performed By: #### Clyde MEANS UMICRO #### [facility] [address] [place] [address] Dr. Josie Sanchez NEUT # 3.7 103/ul Normal 1.4-6.[address] [facility] Comment on above: Performed By: #### Clyde MEANS UMICRO #### [facility] [address] [place] [address] Dr. Josie Sanchez Neutrophils/100 WBC (Bld) 63.3 % Normal 43.0-75.[address] [facility] Comment on above: Performed By: #### Clyde MEANS UMICRO #### [facility] [address] [place] [address] Dr. Josie Sanchez Platelet mean volume (Bld) [Entitic vol] 9.8 fL Normal 9.5-13.[address] [facility] Comment on above: Performed By: #### Clyde MEANS UMICRO #### [facility] [address] [place] [address] Dr. Josie Sanchez PLT 238 103/ul Normal 150-[address] [facility] Comment on above: Performed By: #### Clyde MEANS UMICRO #### [facility] [address] [place] [address] Dr. Josie Sanchez RBC 4.58 106/ul Normal 4.20-5.[address] [facility] Comment on above: Performed By: #### Clyde MEANS UMICRO #### [facility] [address] [place] [address] Dr. Josie Sanchez WBC 5.8 103/ul Normal 4.0-11.[address] [facility] Comment on above: Performed By: #### Clyde MEANS UMICRO #### [facility] [address] [place] [address] Dr. Josie Sanchez PREG QUANT HCGon 09-30-2022 HCG QUANT 2335 mIU/mL Normal [facility] Comment on above: Performed By: #### P REGQNT #### [facility] [address] [place] [address] Dr. Josie Sanchez HCG RANGE SEE BELOW Normal [facility] Comment on above: Result Comment: 5-50 0.2-1 WEEK 50-500 1-2 WEEKS 100-5,000 2-3 WEEKS 500-10,000 3-4 WEEKS 1,000-50,000 4-5 WEEKS 10,000-100,000 5-6 WEEKS 15,000-200,000 6-8 WEEKS 10,000-100,000 2-3 MONTHS Performed By: #### P REGQNT #### [facility] [address] [place] [address] Dr. Josie Sanchez CBC AUTO DIFFon 05-07-2022 BASO # 0.0 103/ul Normal 0.0-0.[address] [facility] Comment on above: Performed By: #### RILEY VALERIO #### [facility] [address] [place] [address] Dr. Josie Sanchez Basophils/100 WBC (Bld) 0.2 % Normal 0.2-2.0 [facility] Comment on above: Performed By: #### RILEY VALERIO #### [facility] [address] [place] [address] Dr. Josie Sanchez EO # 0.0 103/ul Normal 0.0-0.[address] [facility] Comment on above: Performed By: #### RLIEY VALERIO #### [facility] [address] [place] [address] Dr. Josie Sanchez Eosinophils/100 WBC (Bld) 0.3 % Critically low 0.9-7. [address] [facility] Comment on above: Performed By: #### RILEY VALERIO #### [facility] [address] [place] [address] Dr. Josie Sanchez Erythrocyte distribution width (RBC) [Ratio] 12.8 % Normal 11.0-15.[address] [facility] Comment on above: Performed By: #### RILEY VALERIO #### [facility] [address] [place] [address] Dr. Josie Sanchez Hematocrit (Bld) [Volume fraction] 41.2 % Normal 36.0-48.[address] [facility] Comment on above: Performed By: #### E MIGUELANGEL, UMICRO #### [facility] [address] [place] [address] Dr. Josie Sanchez Hemoglobin (Bld) [Mass/Vol] 13.3 g/dL Normal 12.0-16.[address] [facility] Comment on above: Performed By: #### Clyde MEANS UMICRO #### [facility] [address] [place] [address] Dr. Josie Sanchez IG # 0.02 10e3/ul Normal 0.00-0.[address] [facility] Comment on above: Performed By: #### Clyde MEANS UMICRO #### [facility] [address] [place] [address] Dr. Josie Sanchez IG % 0.3 % Normal 0.0-0.[address] [facility] Comment on above: Performed By: #### Clyde MEANS UMICRO #### [facility] [address] [place] [address] Dr. Josie Sanchez LYMPH # 1.0 103/ul Critically low 1.2-3.8 [facility] Comment on above: Performed By: #### Clyde MEANS UMICRO #### [facility] [address] [place] [address] Dr. Josie Sanchez Lymphocytes/100 WBC (Bld) 15.5 % Critically low 20.5-[address] [facility] Comment on above: Performed By: #### Clyde MEANS UMICRO #### [facility] [address] [place] [address] Dr. Josie Sanchez MANUAL DIFF REQ NO Normal [facility] Comment on above: Performed By: #### Clyde MEANS, UMICRO #### [facility] [address] [place] [address] Dr. Josie Sanchez MCH (RBC) [Entitic mass] 28.9 pg Normal 26.7-34.[address] [facility] Comment on above: Performed By: #### KIAN VALERIORO #### [facility] [address] [place] [address] Dr. Josie Sanchez MCHC (RBC) [Mass/Vol] 32.3 g/dL Normal 29.9-35.[address] [facility] Comment on above: Performed By: #### KIAN VALERIORO #### [facility] [address] [place] [address] Dr. Josie Sanchez MCV (RBC) [Entitic vol] 89.6 fL Normal 81.0-99.0 [facility] Comment on above: Performed By: #### KIAN VALERIORO #### [facility] [address] [place] [address] Dr. Josie Sanchez MONO # 0.4 103/ul Normal 0.3-0.[address] [facility] Comment on above: Performed By: #### KIAN VALERIORO #### [facility] [address] [place] [address] Dr. Josie Sanchez Monocytes/100 WBC (Bld) 6.2 % Normal 1.7-12.0 [facility] Comment on above: Performed By: #### KIAN VALERIORO #### [facility] [address] [place] [address] Dr. Josie Sanchez NEUT # 5.0 103/ul Normal 1.4-6.[address] [facility] Comment on above: Performed By: #### KIAN VALERIORO #### [facility] [address] [place] [address] Dr. Josie Sanchez Neutrophils/100 WBC (Bld) 77.5 % Critically high 43.0- 75.[address] [facility] Comment on above: Performed By: #### KIAN VALERIORO #### [facility] [address] [place] [address] Dr. Josie Sanchez Platelet mean volume (Bld) [Entitic vol] 10.2 fL Normal 9.5-13.[address] [facility] Comment on above: Performed By: #### Clyde WYATTR, ROBERTICRO #### [facility] [address] [place], [place] [address] Dr. Josie Sanchez PLT 237 103/ul Normal 150-[address] [facility] Comment on above: Performed By: #### E MIGUELANGEL, UMICRO #### [facility] [address] [place], [place] [address] Dr. Josie Sanchez RBC 4.60 106/ul Normal 4.20-5.[address] [facility] Comment on above: Performed By: #### E MIGUELANGEL, UMICRO #### [facility] [address] [place], [place] [address] Dr. Josie Sanchez WBC 6.5 103/ul Normal 4.0-11.[address] [facility] Comment on above: Performed By: #### KIAN VALERIORO #### [facility] [address] [place] [address] Dr. Josie Sanchez Covid-19 PCR ([facility])on 04-10 SARS-CoV-2 (COVID-19) RNA ALEXA+probe Ql (Unsp spec) Not detected Normal NOT DETECTED [facility] Comment on above: Result Comment: This test is not yet approved or cleared by the [place] FDA. When there are no FDA-approved or cleared tests available, and other criteria are met, FDA can make tests available under an emergency access mechanism called an Emergency Use Authorization (EUA). The EUA for this test is supported by the [place] of Health and Human Service's (HHS's) declaration [...] SARS-CoV-2. Performed By: #### KIAN VALERIORO #### [facility] [address] [place] [address] Dr. Josie Sanchez PREG QUANT HCGon 05-07-2022 HCG QUANT 2745 mIU/mL Normal [facility] Comment on above: Performed By: #### RILEY VALERIO #### [facility] [address] [place] [address] Dr. Josie Sanchez HCG RANGE SEE BELOW Normal [facility] Comment on above: Result Comment: 5-50 0.2-1 WEEK 50-500 1-2 WEEKS 100-5,000 2-3 WEEKS 500-10,000 3-4 WEEKS 1,000-50,000 4-5 WEEKS 10,000-100,000 5-6 WEEKS 15,000-200,000 6-8 WEEKS 10,000-100,000 2-3 MONTHS Performed By: #### RILEY VALERIO #### [facility] [address] [place] [address] Dr. Josie Sanchez US PREG TVon 05-05-2022 [...] PEREZ DURBIN Date: 2022-05-05 14:42 Normal [facility] ER URINE PROFILEon 2 Bilirubin Ql (U) Negative Normal NEGATIVE [facility] Comment on above: Performed By: #### RILEY VALERIO #### [facility] [address] [place] [address] Dr. Josie Sanchez Clarity (U) CLEAR Normal CLEAR [facility] Comment on above: Performed By: #### Clyde MEANS UMICRO #### [facility] [address] [place] [address] Dr. Josie Sanchez Color (U) YELLOW Normal YELLOW [facility] Comment on above: Performed By: #### Clyde MEANS UMICRO #### [facility] [address] [place] [address] Dr. Josie Sanchez ERUAHJuliane A micrscopic examination will be performed if indicated. Normal [facility] Comment on above: Performed By: #### Clyde MEANS UMICRO #### [facility] [address] [place] [address] Dr. Josie Sanchez Glucose Ql (U) Negative Normal NEGATIVE [facility] Comment on above: Performed By: #### Clyde MEANS UMICRO #### [facility] [address] [place] [address] Dr. Josie Sanchez Hemoglobin Ql (U) SMALL Abnormal NEGATIVE [facility] Comment on above: Performed By: #### Clyde MEANS UMICRO #### [facility] [address] [place] [address] Dr. Josie Sanchez Ketones Ql (U) 15 mg/dl Abnormal NEGATIVE [facility] Comment on above: Performed By: #### Clyde MEANS UMICRO #### [facility] [address] [place] [address] Dr. Josie Sanchez LEUKOCYTES Negative Normal NEGATIVE [facility] Comment on above: Performed By: #### Clyde MEANS UMICRO #### [facility] [address] [place] [address] Dr. Josie Sanchez Nitrite Ql (U) Negative Normal NEGATIVE [facility] Comment on above: Performed By: #### Clyde MEANS UMICRO #### [facility] [address] [place] [address] Dr. Josie Sanchez pH (U) 6.0 [pH] Normal 5-9 [facility] Comment on above: Performed By: #### KIAN VALERIORO #### [facility] [address] [place] [address] Dr. Josie Sanchez SPEC GRAVITY 1.020 Normal 1.005-<=1.[address] [facility] Comment on above: Performed By: #### Clyde MEANS UMICRO #### [facility] [address] [place] [address] Dr. Josie Sanchez UA PROTEIN Negative Normal NEGATIVE/ TRACE [facility] Comment on above: Performed By: #### ROBERT VALERIOICRO #### [facility] [address] [place] [address] Dr. Josie Sanchez UR MICRO IND INDICATED Normal [facility] Comment on above: Performed By: #### KIAN VALERIORO #### [facility] [address] [place] [address] Dr. Josie Sanchez Urobilinogen Qn (U) 0.2 {Fabricio'U}/dL Normal 0.2 - 1. [address] [facility] Comment on above: Performed By: #### Clyde MEANS UMICRO #### [facility] [address] [place] [address] Dr. Josie Sanchez URINE MICROSCOPIC ONLYon BACTERIA NONE SEEN Normal NONE SEEN [facility] Comment on above: Performed By: #### Clyde MEANS UMICRO #### [facility] [address] [place] [address] Dr. Josie Sanchez Bacteria identified Cx Nom (U) NOT INDICATED Normal [facility] Comment on above: Performed By: #### Clyde MEANS UMICRO #### [facility] [address] [place] [address] Dr. Josie Sanchez CAST NONE SEEN Normal NONE SEEN [facility] Comment on above: Performed By: #### Clyde MEANS UMICRO #### [facility] [address] [place] [address] Dr. Josie Sanchez Crystals LM Nom (Urine sed) NONE SEEN Normal NONE SEEN [facility] Comment on above: Performed By: #### KIAN VALERIORO #### [facility] [address] [place], [place] [id number] Dr. Josie Sanchez Epithelial cells LM Ql (Urine sed) NONE SEEN Normal NONE SEEN /RARE [facility] Comment on above: Performed By: #### E RUR, UMICRO #### [facility] [address] [place] [address] Dr. Josie Sanchez MUCOUS MODERATE Abnormal NONE SEEN [facility] Comment on above: Performed By: #### E RUR, UMICRO #### [facility] [address] [place] [address] Dr. Josie Sanchez RBC 0-2 Normal 0-2 [facility] Comment on above: Performed By: #### E MIGUELANGEL, UMICRO #### [facility] [address] [place] [address] Dr. Josie Sanchez WBC NONE SEEN Normal NONE SEEN [facility] Comment on above: Performed By: #### Clyde MEANS, UMICRO #### [facility] [address] [place] [address] Dr. Josie Sanchez PREG QUANT HCGon 04-20-2022 HCG QUANT 01757 mIU/mL Normal [facility] Comment on above: Performed By: #### Clyde MEANS, UMICRO #### [facility] [address] [place] [address] Dr. Josie Sanchez HCG RANGE SEE BELOW Normal [facility] Comment on above: Result Comment: 5-50 0.2-1 WEEK 50-500 1-2 WEEKS 100-5,000 2-3 WEEKS 500-10,000 3-4 WEEKS 1,000-50,000 4-5 WEEKS 10,000-100,000 5-6 WEEKS 15,000-200,000 6-8 WEEKS 10,000-100,000 2-3 MONTHS Performed By: #### E MIGUELANGEL, UMICRO #### [facility] [address] [place] [address] Dr. Josie Sanchez HCG-BETA SUBUNIT QUANTon hCG,Beta Subunit,Qnt,Serum <1 Normal [facility] Comment on above: Result Comment: Fema le (Non-) 0 - 5 (Postmenopausal) 0 - 8 . Female () Weeks of Gestation 3 6 - 71 4 10 - 750 5 732 - 1575 6 215 - 04915 7 2202 -104490 8 68034 -378250 9 50011 -921578 40674 -657515 12 72818 -829378 14 28167 - 39869 15 99354 - 72259 16 7713 - 17297 17 3376 - 10633 18 7595 - 16400 Regina ECLIA methodology Performed By: #### E RILEY MEANS #### [facility] [address] [place] [address] Dr. Josie Sanchez CBC AUTO DIFFon 02-18-2022 BASO # 0.0 103/ul Normal 0.0-0.[address] [facility] Comment on above: Performed By: #### C BC #### [facility] [address] [place] [address] Dr. Josie Sanchez Basophils/100 WBC (Bld) 0.2 % Normal 0.2-2.0 [facility] Comment on above: Performed By: #### C BC #### [facility] [address] [place] [address] Dr. Josie Sanchez EO # 0.1 103/ul Normal 0.0-0.[address] [facility] Comment on above: Performed By: #### C BC #### [facility] [address] [place] [address] Dr. Josie Sanchez Eosinophils/100 WBC (Bld) 0.8 % Critically low 0.9-7. [address] [facility] Comment on above: Performed By: #### C BC #### [facility] [address] [place] [address] Dr. Josie Sanchez Erythrocyte distribution width (RBC) [Ratio] 12.5 % Normal 11.0-15.[address] [facility] Comment on above: Performed By: #### C BC #### [facility] [address] [place] [address] Dr. Josie Sanchez Hematocrit (Bld) [Volume fraction] 39.5 % Normal 36.0-48.[address] [facility] Comment on above: Performed By: #### C BC #### [facility] [address] [place] [address] Dr. Josie Sanchez Hemoglobin (Bld) [Mass/Vol] 13.0 g/dL Normal 12.0-16.0 [facility] Comment on above: Performed By: #### C BC #### [facility] [address] [place] [address] Dr. Josie Sanchez IG # 0.02 10e3/ul Normal 0.00-0.03 [facility] Comment on above: Performed By: #### C BC #### [facility] [address] [place] [address] Dr. Josie Sanchez IG % 0.3 % Normal 0.0-0.[address] [facility] Comment on above: Performed By: #### C BC #### [facility] [address] [place] [address] Dr. Josie Sanchez LYMPH # 1.5 103/ul Normal 1.2-3.8 [facility] Comment on above: Performed By: #### C BC #### [facility] [address] [place] [address] Dr. Josie Sanchez Lymphocytes/100 WBC (Bld) 22.9 % Normal 20.5-60.0 [facility] Comment on above: Performed By: #### C BC #### [facility] [address] [place] [address] Dr. Josie Sanchez MANUAL DIFF REQ NO Normal [facility] Comment on above: Performed By: #### C BC #### [facility] [address] [place] [address] Dr. Josie Sanchez MCH (RBC) [Entitic mass] 30.3 pg Normal 26.7-34.0 [facility] Comment on above: Performed By: #### C BC #### [facility] [address] [place] [address] Dr. Josie Sanchez MCHC (RBC) [Mass/Vol] 32.9 g/dL Normal 29.9-35.2 [facility] Comment on above: Performed By: #### C BC #### [facility] [address] [place] [address] Dr. Josie Sanchez MCV (RBC) [Entitic vol] 92.1 fL Normal 81.0-99.0 [facility] Comment on above: Performed By: #### C BC #### [facility] [address] [place] [address] Dr. Josie Sanchez MONO # 0.4 103/ul Normal 0.3-0.[address] [facility] Comment on above: Performed By: #### C BC #### [facility] [address] [place] [address] Dr. Josie Sanchez Monocytes/100 WBC (Bld) 5.7 % Normal 1.7-12.0 [facility] Comment on above: Performed By: #### C BC #### [facility] [address] [place] [address] Dr. Josie Sanchez NEUT # 4.6 103/ul Normal 1.4-6.[address] [facility] Comment on above: Performed By: #### C BC #### [facility] [address] [place] [address] Dr. Josie Sanchez Neutrophils/100 WBC (Bld) 70.1 % Normal 43.0-75.[address] [facility] Comment on above: Performed By: #### C BC #### [facility] [address] [place] [address] Dr. Josie Sanchez Platelet mean volume (Bld) [Entitic vol] 10.0 fL Normal 9.5-13.[address] [facility] Comment on above: Performed By: #### C BC #### [facility] [address] [place] [address] Dr. Josie Sanchez PLT 242 103/ul Normal 150-450 [facility] Comment on above: Performed By: #### C BC #### [facility] [address] [place] [address] Dr. Josie Sanchez RBC 4.29 106/ul Normal 4.20-5.[address] [facility] Comment on above: Performed By: #### C BC #### [facility] [address] [place] [address] Dr. Josie Sanchez WBC 6.5 103/ul Normal 4.0-11.0 [facility] Comment on above: Performed By: #### C BC #### [facility] [address] [place], [place] [address] Dr. Josie Sanchez LIPID PROFILEon 02-18-2022 CHOL-HDL RATIO NORM SEE BELOW Normal [facility] Comment on above: Result Comment: 3.3 - 4.4 LOW RISK 4.4 - 7.1 AVERAGE RISK 7.1 - 11.0 MODERATE RISK >11.0 HIGH RISK Performed By: #### L IPID, TSH #### [facility] [address] [place], [place] [address] Dr. Josie Sanchez Cholesterol [Mass/Vol] 182 mg/dL Normal <=200 [facility] Comment on above: Performed By: #### L IPID, TSH #### [facility] [address] [place] [address] [address] Josie Sanchez Cholesterol in HDL [Mass/Vol] 40 mg/dL Normal 40-[address] [facility] Comment on above: Performed By: #### L IPID, TSH #### [facility] [address] [place] [address] [address] Josie Sanchez Cholesterol in LDL [Mass/Vol] 122.4 mg/dL Normal [facility] Comment on above: Performed By: #### L IPID, TSH #### [facility] [address] [place], [place] [address] Dr. Josie Sanchez Cholesterol.total/Choleste rol in HDL [Mass ratio] 4.6 {ratio} Normal [facility] Comment on above: Performed By: #### L IPID, TSH #### [facility] [address] [place], [place] [address] Dr. Josie Sanchez HDL NORMAL > or = 60 mg/dl - LOW CARDIOVASCULAR RISK <40 mg/dl - HIGH CARDIOVASCULAR RISK Normal [facility] Comment on above: Performed By: #### L IPID, TSH #### [facility] [address] [place] [address] [address] Josie Sanchez LDL CALC NORMAL SEE BELOW Normal [facility] Comment on above: Result Comment: <100 mg/dl OPTIMAL 100 - 129 mg/dl NEAR OR ABOVE OPTIMAL 130 - 159 mg/dl BORDERLINE HIGH 160 - 189 mg/dl HIGH >190 mg/dl VERY HIGH Performed By: #### L IPID, TSH #### [facility] [address] [place] [address] Dr. Josie Sanchez Triglyceride [Mass/Vol] 98 mg/dL Normal <=150 [facility] Comment on above: Performed By: #### L IPID, TSH #### [facility] [address] [place] [address] [address] Josie Sanchez VLDL CALC 19.6 mg/dL Normal [facility] Comment on above: Performed By: #### L IPID, TSH #### [facility] [address] [place] [address] Dr. Josie Sanchez PROTIMEon 02-18-2022 INR Coag (PPP) [Relative time] 1.10 {INR} Normal [facility] Comment on above: Performed By: #### P REGQNT #### [facility] [address] [place] [address] Dr. Josie Sanchez INR GUIDELINES SEE BELOW Normal [facility] Comment on above: Result Comment: PAULINA RED INR: 2.0 - 3.0 CONDITIONS NOT LISTED BELOW 2.5 - 3.5 FOR PROSTHETIC HEART VALVE REPLACEMENT 2.5 - 3.5 RECURRENT THROMBOSIS Performed By: #### P REGQNT #### [facility] [address] [place] [address] Dr. Josie Sanchez PT Coag (PPP) [Time] 11.8 s Critically high 9.0-11.[address] [facility] Comment on above: Performed By: #### P REGQNT #### [facility] [address] [place] [address] Dr. Josie Sanchez PTTon 02-18-2022 aPTT Coag (Bld) [Time] 29.8 s Normal 22.3-36.2 [facility] Comment on above: Performed By: #### P REGQNT #### [facility] [address] [place] [address] Dr. Josie Sanchez TSHon 02-18-2022 TSH 3.410 uIU/mL Normal 0.358-3.740 [facility] Comment on above: Performed By: #### L IPID, TSH #### [facility] [address] [place] [address] Dr. Josie Sanchez US PELVIS AND TRANSVAGon [...] by: PEREZ DURBIN Date: 2022-02-18 18:[address] [facility] Nursing Note - Woundon 08-15 Nursing Note - Wound [id number] 38130#3.00CD:127 Normal [facility] Coding Summary.on 08-08-2020 Coding Summary. CODING DATE: 08/08/2020 FINAL [facility] STATUS: Home (Routine DC) PAYOR: Medicaid [...] Jeannie Nur Date Saved: 08/08/2020 10:31 am [facility] Formson 08-08-2020 Forms [id number] 0459#1.00CD:127 [facility] Home Health Recordson 2019 Home Health Records [id number] 3EFD#1.00CD:127 [facility] Ambulatory Clinical Summaryo n 07-26-2020 Ambulatory Clinical Summary {6d-25-9w-61-26-59 -52-5u-46-05-b0-03 -33-60-e2-c7}CD:61 [id number] [facility] Home Health Recordson 2019 Home Health Records [id number] 0EC7#1.00CD:127 [facility] Progress Note - Woundon 07-09 Progress Note - Wound [id number] 90605#2.00CD:127 [facility] Consent for Treatmenton 07-09 Consent for Treatment [id number] AFAA#1.00CD:127 [facility] Multi-Wound Charton 07-25-20 20 Multi-Wound Chart [id number] 14149#1.00CD:127 [facility] Nursing Assessment - Woundon 07-25-2020 Nursing Assessment - Wound [id number] 7.202 [id number] 03888#1.00CD:127 [facility] Physician Orderon 07-25-2020 Physician Order [id number]#1.00CD:127 [facility] Home Health Recordson 2019 Home Health Records [id number] [id number]#1.00CD:127 [facility] Home Health Recordson 2019 Home Health Records [id number] 3554#1.00CD:127 Normal [facility] Coding Summary.on 07-12-2020 Coding Summary. 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 However, the narrative phrase printed from the coding software may appear abbreviated, or result in slightly different terminology. Coded By: Aicha Bledsoe CphT Date Saved: 07/12/2020 03:03 pm [facility] Coding Summary. 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 However, the narrative phrase printed from the coding software may appear abbreviated, or result in slightly different terminology. Coded By: Aicha Bledsoe CphT Date Saved: 07/12/2020 03:05 pm [facility] Multi-Wound Charton 07-12-20 20 Multi-Wound Chart [id number] 15821#1.00CD:127 [facility] Nursing Assessment - Woundon 07-12-2020 Nursing Assessment - Wound [id number] 7.202 [id number] 79952#1.00CD:127 [facility] Nursing Note - Woundon 07-12 Nursing Note - Wound [id number] 42510#1.00CD:127 [facility] Consent for Procedure/Surger yon 07-11-2020 Consent for Procedure/Surgery [id number] 73636#1.00CD:127 [facility] Consent for Treatmenton Consent for Treatment [id number] B36A#1.00CD:127 [facility] Home Health Recordson 2019 Home Health Records [id number]#1.00CD:127 [facility] Home Health Records [id number] [id number]#1.00CD:127 [facility] Physician Orderon 07-11-2020 Physician Order [id number] 73964#1.00CD:127 [facility] Progress Note - Woundon Progress Note - Wound [id number] 29660#1.00CD:127 [facility] Nursing Note - Woundon 07-02 Nursing Note - Wound [id number]#3.00CD:127 [facility] Consent for Procedure/Surger yon 06-28-2020 Consent for Procedure/Surgery [id number] 0200#1.00CD:127 [facility] Consent to Photographon 06-10 Consent to Photograph [id number]#1.00CD:127 [facility] HIPAA Privacy Documentson HIPAA Privacy Documents [id number] 01 [id number] 0158#1.00CD:127 [facility] Nursing Note - Woundon 06-28 Nursing Note - Wound [id number]. [id number] 0217#1.00CD:127 [facility] Nursing Note - Wound [id number]. [id number] 0289#1.00CD:127 [facility] Consent for Treatmenton 06-09 Consent for Treatment [id number] EEDA#1.00CD:127 [facility] Multi-Wound Charton 06-27-20 Multi-Wound Chart [id number] 49702#1.00CD:127 [facility] Nursing Assessment - Woundon 06-27-2020 Nursing Assessment - Wound [id number] [id number] 96755#1.00CD:127 [facility] Physician Orderon 06-27-2020 Physician Order [id number]#2.00CD:127 [facility] Progress Note - Woundon 06-09 Progress Note - Wound [id number] 46756#1.00CD:127 [facility] HIPAA Privacy Documentson HIPAA Privacy Documents [id number] 02 [id number]#1.00CD:127 [facility] Outside Records Officeon Outside Records Office [id number] 2 [id number] [id number]#1.00CD:127 [facility] Social History Date Type Detail Facility Start: 08-23-2023 Alcohol intake Current drinke r of alcohol (finding) [facility] Start: 01-14-2023 Alcohol Comment caffeine intak e: occasionally [facility] Start: 12-21-2022 Sex Assigned At [employer] Other Start: 12-21-2022 Tobacco smoking status NHIS Never smoked tobacco [facility] Start: 12-21-2022 Tobacco use and exposure Smokeless tobacco non-user [facility] Start: 12-21-2022 History of Social function [facility] Start: 1985 Sex Assigned At Not on file [facility] Unknown if ever smoked [employer] Other Vital Signs Date Time Vital Sign Value Performing Clinician Facility 11-20-2022 15:05-0400 Body height 152.4 cm Gloria Hayden Other [employer] Other 11-20-2022 15:05-0400 Body mass index (BMI) [Ratio] 11.72 kg/m2 Gloria Hayden Other [employer] Other 11-20-2022 15:05-0400 Body temperature 97.7 [degF] Gloria Hayden Other [employer] Other 11-20-2022 15:05-0400 Body weight 27.22 kg Gloria Hayden Other [employer] Other 11-20-2022 15:05-0400 Respiratory rate 18 /min Gloria Hayden Other [employer] Other 11-20-2022 15:05-0400 SaO2% (BldA) [Mass fraction] 97 % Gloria Hayden Other [employer] Other Evaluation note 11-20-2022 Note Date & [...] Contact dermatitis home care material was printed [employer] Other Clinical Note 05-08-2022 Note Date & [...] by: PEREZ DURBIN Date: 2022-05-08 18:03 [facility] Clinical Note 05-08-2022 Note Date & Type Note Facility 05-08-2022 Note OPERATIVE NOTE OPERATION DATE: 05/08/2022 PROCEDURE: Suction D AND C. PREOPERATIVE DIAGNOSIS: 1. Suspected molar during first trimester. 2. Uterine mass approximately 4.5 cm. POSTOPERATIVE DIAGNOSIS: 1. Suspected molar during first trimester. 2. Uterine mass approximately 4.5 cm. 3. Significant large amounts of retained products. SURGEON: Norbert Vega D.O. OUTSIDE B2B SALES: None. BLOOD LOSS: 100 mL. URINE OUTPUT: [...] products of conception were removed using a 9-Swiss suction curette tip. Excellent hemostasis was noted. The patient tolerated the procedure well. Sponge, lap, and needle counts were correct x 2. All instruments were then removed from the patient's vagina. The patient was taken to the Recovery Room in stable condition. ?? [facility] History general Narrative - Reported Note Date & Type Note Facility History general Narrative - Reported Type Medical History Hypercholesterolemia Medical History Hormone imbalance Medical History Vitamin D deficiency Medical History Iron deficiency Surgical History C section Surgical History oral surgery Surgical History tonsillectomy and adenoidectomy Surgical History D&C 2021 Hospitalization History child [facility] Other Summary Purpose Family History No Family History Records FoundNo Family History Records FoundNo Family History Records Found Advance Directives No Advanced Directives Records FoundNo Advanced Directives Records FoundNo Advanced Directives Records Found Additional Source Comments INFORMATION SOURCE (unrecogn ized section and content) DATE CREATED AUTHOR 08/15/2020 [facility] DATE CREATED AUTHOR AUTHOR'S ORGANIZ ATION 12/22/2022 [facility] DATE CREATED AUTHOR AUTHOR'S ORGANIZ ATION 12/07/2023 [facility] EPIC REASON FOR VISIT (unrecogniz ed section and content) [employer] Care Teams (unrecognized sec tion and content) Test Department Helper Relationship Specialty Start Date End Date Quoc Watts MD [address] [place] [address] PCP - General Family Medicine 12/28/22 FOR [...] BE BASED ON THE PRIMARY CLINICAL RECORDS. [employer] provides no warranty or guarantee of the accuracy or completeness of information in this document.
[2024-01-16 08:10] LABS: Progesterone 5.6 ng/mL (.)
== END 2024-01-15 07:47 | disposition home or self-care (01) ==
LOC: LAB 07:47
PROVIDERS: PCP Family Medicine; Visit Provider Obstetrics & Gynecology
DX: N97.0 Female infertility associated with anovulation (principal)
CPT/HCPCS: 36415; 84144

== ENCOUNTER 2024-02-12 12:17 | Outpatient (OUT) | payer MEDICAID, SELFPAY ==
--- OUTSIDE RECORDS SUMMARY | 2024-02-12 12:20 | XMS_ITS | CCD ---
Author Organization [facility] CliniSyil Care Team Providers Care Intervention Specialist Name Role Phone Gloria Hayden Unavailable MAC [...] HOY ., DR KUMARI Primary Care Unavailable [place], DR PEREZ Luther Consulting Unavailable SILVIA ., DR TOUSSAINT Attending Unavailable SILVIA ., DR TOUSSAINT Consulting Unavailable HOY ., DR KUMARI Primary Care Unavailable [place], DR PEREZ Luther Consulting Unavailable SILVIA ., DR TOUSSAINT Admitting Unavailable SILVIA ., DR TOUSSAINT Attending Unavailable SILVIA ., DR TOUSSAINT Consulting Unavailable SILVIA ., DR TOUSSAINT Admitting Unavailable HOY ., DR KUMARI Primary Care Unavailable [place], DR PEREZ Luther Consulting Unavailable SILVIA ., [...] Mac VILLARREAL, Quoc Cedeno Primary Care Provider [phone] NORBERT VEGA Attending Unavailable NORBERT VEGA Attending Unavailable NORBERT VEGA Attending Unavailable NORBERT VEGA Attending Unavailable Allergies Allergy Classification Reported Allergen(s) Allergy Type Date of Onset Reaction(s) Facility (1 source) Penicillin G Drug Allergy throat swelling SpamLion Other (1 source) Cefaclor Drug Allergy [facility] Repository (2 sources) Penicillins Drug allergy (disorder) 01-26-20 16 [facility] Repository (1 source) Penicillins Drug Intolerance [...] AUTO DIFFon BASOPHILS ABSOLUTE AUTO 0.0 [facility] Basophils/100 WBC (Bld) 0.2 % 0.2 - 2.0 % [facility] Eosinophils/100 WBC (Bld) 0.8 % Low 0.9 - 7.0 % [facility] Erythrocyte distribution width (RBC) [Ratio] 13.4 % 11.0 - 15.0 % [facility] Hematocrit (Bld) [Volume fraction] 42.3 % 36.0 - 48.0 % [facility] Hemoglobin (Bld) [Mass/Vol] 13.6 g/dL 12.0 - 16.0 g/dL [facility] IMMATURE GRANULOCYTES ABS AUTO 0.02 [facility] Immature granulocytes/100 WBC (Bld) 0.3 % 0.0 - 0.5 % [facility] Interpretation and review of laboratory results Abnormal [facility] LYMPHOCYTES ABSOLUTE AUTO 1.7 [facility] Lymphocytes/100 WBC (Bld) 26.5 % 20 .5 - 60.0 % [facility] MCH (RBC) [Entitic mass] 30.1 pg 26. 7 - 34.0 pg [facility] MCHC (RBC) [Mass/Vol] 32.2 g/dL 29.9 - 35.2 g/dL [facility] MCV (RBC) [Entitic vol] 93.6 fL 81.0 - 99.0 fL [facility] MONOCYTES ABSOLUTE AUTO 0.5 [facility] Monocytes/100 WBC (Bld) 7.3 % 1.7 - 12.0 % [facility] NEUTROPHILS ABSOLUTE AUTO 4.3 [facility] Neutrophils/100 WBC (Bld) 64.9 % 43 .0 - 75.0 % [facility] Platelet mean volume (Bld) [Entitic vol] 10.8 fL 9.5 - 13.5 fL [facility]H EO # 0.1 [facility] PLT 220 [facility] RBC 4.52 [facility] WBC 6.5 [facility] PROGESTERONEon 12-19-2022 Progesterone 9.6 ng/mL Normal [facility] Comment on above: Result Comment: Foll icular phase 0.1 - 0.9 Luteal phase 1.8 - 23.9 Ovulation phase 0.1 - 12.0 First trimester 11.0 - 44.3 Second trimester 25.4 - 83.3 Third trimester 58.7 - 214.0 Postmenopausal 0.0 - 0.1 Performed By: #### P ROGES #### [facility] [address] [place] [address] Dr. Josie Sanchez PROGESTERONEon 11-19-2022 Progesterone 6.3 ng/mL Normal [facility] Comment on above: Result Comment: Foll icular phase 0.1 - 0.9 Luteal phase 1.8 - 23.9 Ovulation phase 0.1 - 12.0 First trimester 11.0 - 44.3 Second trimester 25.4 - 83.3 Third trimester 58.7 - 214.0 Postmenopausal 0.0 - 0.1 Performed By: #### P ROGES #### [facility] [address] [place] [address] Dr. Josie Sanchez PREG QUANT HCGon 11-18-2022 HCG QUANT <1 Normal [facility] Comment on above: Performed By: #### P REGQNT #### [facility] [address] [place] [address] Dr. Josie Sanchez HCG RANGE SEE BELOW Normal [facility] Comment on above: Result Comment: 5-50 0.2-1 WEEK 50-500 1-2 WEEKS 100-5,000 2-3 WEEKS 500-10,000 3-4 WEEKS 1,000-50,000 4-5 WEEKS 10,000-100,000 5-6 WEEKS 15,000-200,000 6-8 WEEKS 10,000-100,000 2-3 MONTHS Performed By: #### P REGQNT #### [facility] [address] [place] [address] Dr. Josie Sanchez US PELVIS AND TRANSVAGon [...] of a yolk sac as noted by rad technologist. No significant free pelvic fluid is [...] by: RENE MEYERS Date: 2022-11-16 18:09 Normal [facility] DHEA SERUMon 11-11-2022 Dehydroepiandrosterone (DHEA) 335 ng/dL Normal 31-701 [facility] Comment on above: Performed By: #### E RILEY MEANS #### [facility] [address] [place] [address] Dr. Josie Sanchez DHEA-SULFATEon 11-10-2022 DHEA-Sulfate 251.0 ug/dL Normal 57.3-279.2 [facility] Comment on above: Performed By: #### P REGQNT #### [facility] [address], [place] [address] Dr. Josie Sanchez ESTRADIOLon 11-10-2022 Estradiol 66.1 pg/mL Normal [facility] Comment on above: Result Comment: Adul t Female: Follicular phase 12.5 - 166.0 Ovulation phase 85.8 - 498.0 Luteal phase 43.8 - 211.0 Postmenopausal <6.0 - 54.7 1st trimester 215.0 - >4300.0 [facility] ECLIA methodology Performed By: #### E MIGUELANGEL UMICRO #### [facility] [address] [place] [address] Dr. Josie Sanchez FSHon 11-10-2022 FSH 6.9 mIU/mL Normal [facility] Comment on above: Result Comment: Adul t Female: Follicular phase 3.5 - 12.5 Ovulation phase 4.7 - 21.5 Luteal phase 1.7 - 7.7 Postmenopausal 25.8 - 134.8 Performed By: #### P REGQNT #### [facility] [address] [place] [address] Dr. Josie Sanchez LUTEINIZING HORMONE (LH)on 0 11-10-2022 LH 9.9 mIU/mL Normal [facility] Comment on above: Result Comment: Adul t Female: Follicular phase 2.4 - 12.6 Ovulation phase 14.0 - 95.6 Luteal phase 1.0 - 11.4 Postmenopausal 7.7 - 58.5 Performed By: #### RILEY VALERIO #### [facility] [address] [place] [address] Dr. Josie Sanchez CBC AUTO DIFFon 11-09-2022 BASO # 0.0 103/ul Normal 0.0-0.1 [facility] Comment on above: Performed By: #### RILEY VALERIO #### [facility] [address] [place] [address] Dr. Josie Sanchez Basophils/100 WBC (Bld) 0.3 % Normal 0.2-2.[address] [facility] Comment on above: Performed By: #### RILEY VALERIO #### [facility] [address] [place] [address] Dr. Josie Sanchez EO # 0.0 103/ul Normal 0.0-0.7 [facility] Comment on above: Performed By: #### RILEY VALERIO #### [facility] [address] [place] [address] Dr. Josie Sanchez Eosinophils/100 WBC (Bld) 0.5 % Critically low 0.9-7. 0 [facility] Comment on above: Performed By: #### RILEY VALERIO #### [facility] [address] [place] [address] Dr. Josie Sanchez Erythrocyte distribution width (RBC) [Ratio] 13.2 % Normal 11.0-15.0 [facility] Comment on above: Performed By: #### Clyde MEANS UMICRO #### [facility] [address] [place] [address] Dr. Josie Sanchez Hematocrit (Bld) [Volume fraction] 41.8 % Normal 36.0-48.0 [facility] Comment on above: Performed By: #### Clyde MEANS UMICRO #### [facility] [address] [place] [address] Dr. Josie Sanchez Hemoglobin (Bld) [Mass/Vol] 13.7 g/dL Normal 12.0-16.0 [facility] Comment on above: Performed By: #### Clyde MEANS UMICRO #### [facility] [address] [place] [address] Dr. Josie Sanchez IG # 0.02 10e3/ul Normal 0.00-0.03 [facility] Comment on above: Performed By: #### Clyde MEANS UMICRO #### [facility] [address] [place] [address] Dr. Josie Sanchez IG % 0.3 % Normal 0.0-0.5 [facility] Comment on above: Performed By: #### Clyde MEANS UMICRO #### [facility] [address] [place] [address] Dr. Josie Sanchez LYMPH # 1.2 103/ul Normal 1.2-3.8 [facility] Comment on above: Performed By: #### Clyde MEANS UMICRO #### [facility] [address] [place] [address] Dr. Josie Sanchez Lymphocytes/100 WBC (Bld) 18.4 % Critically low 20.5-6 0.0 [facility] Comment on above: Performed By: #### Clyde MEANS UMICRO #### [facility] [address] [place] [address] Dr. Josie Sanchez MANUAL DIFF REQ NO Normal [facility] Comment on above: Performed By: #### KIAN VALERIORO #### [facility] [address] [place] [address] Dr. Josie Sanchez MCH (RBC) [Entitic mass] 29.5 pg Normal 26.7-34.0 [facility] Comment on above: Performed By: #### KIAN VALERIORO #### [facility] [address] [place] [address] Dr. Josie Sanchez MCHC (RBC) [Mass/Vol] 32.8 g/dL Normal 29.9-35.2 [facility] Comment on above: Performed By: #### KIAN VALERIORO #### [facility] [address] [place] [address] Dr. Josie Sanchez MCV (RBC) [Entitic vol] 89.9 fL Normal 81.0-99.[address] [facility] Comment on above: Performed By: #### KIAN VALERIORO #### [facility] [address] [place] [address] Dr. Josie Sanchez MONO # 0.3 103/ul Normal 0.3-0.8 [facility] Comment on above: Performed By: #### KIAN VALERIORO #### [facility] [address] [place] [address] Dr. Josie Sanchez Monocytes/100 WBC (Bld) 5.1 % Normal 1.7-12.[address] [facility] Comment on above: Performed By: #### KIAN VALERIORO #### [facility] [address] [place] [address] Dr. Josie Sanchez NEUT # 4.8 103/ul Normal 1.4-6.5 [facility] Comment on above: Performed By: #### KIAN VALERIORO #### [facility] [address] [place] [address] Dr. Josie Sanchez Neutrophils/100 WBC (Bld) 75.4 % Critically high 43.0- 75.0 [facility] Comment on above: Performed By: #### RILEY VALERIO #### [facility] [address] [place] [address] Dr. Josie Sanchez Platelet mean volume (Bld) [Entitic vol] 9.8 fL Normal 9.5-13.5 [facility] Comment on above: Performed By: #### Clyde MEANS UMICRO #### [facility] [address] [place] [address] Dr. Josie Sanchez PLT 256 103/ul Normal 150-450 [facility] Comment on above: Performed By: #### Clyde MEANS UMICRO #### [facility] [address] [place] [address] Dr. Josie Sanchez RBC 4.65 106/ul Normal 4.20-5.40 [facility] Comment on above: Performed By: #### ROBERT VALERIOICRO #### [facility] [address] [place] [address] Dr. Josie Sanchez WBC 6.4 103/ul Normal 4.0-11.0 [facility] Comment on above: Performed By: #### Clyde MEANS UMICRO #### [facility] [address] [place] [address] Dr. Josie Sanchez FERRITINon 11-09-2022 Ferritin [Mass/Vol] 42.0 ng/mL Normal 6.2-137.0 [facility] Comment on above: Performed By: #### Clyde MEANS UMICRO #### [facility] [address] [place] [address] Dr. Josie Sanchez FREE T4on 11-09-2022 Free T4 [Mass/Vol] 0.87 ng/dL Normal 0.76-1.46 [facility] Comment on above: Performed By: #### Clyde MEANS UMICRO #### [facility] [address] [place] [address] Dr. Josie Sanchez GLYCOHEMOGLOBIN A1Con 2022 ADA RECOMMENDATION SEE BELOW Normal [facility] Comment on above: Result Comment: ADA RECOMMENDED LIMIT 4.0 - 6.0 ADA THERAPEUTIC TARGET < 7.0 ACTION SUGGESTED > 7.0 Performed By: #### Clyde MEANS UMICRO #### [facility] [address] [place] [address] Dr. Josie Sanchez Glucose [Mass/Vol] 100 mg/dL Normal [facility] Comment on above: Performed By: #### Clyde MEANS UMICRO #### [facility] [address] [place] [address] Dr. Josie Sanchez HbA1c (Bld) [Mass fraction] 5.1 % Normal 4.5-6.2 [facility] Comment on above: Performed By: #### Clyde MEANS UMICRO #### [facility] [address] [place] [address] Dr. Josie Sanchez PREG QUANT HCGon 11-09-2022 HCG QUANT <1 Normal [facility] Comment on above: Performed By: #### Clyde MEANS UMICRO #### [facility] [address] [place] [address] Dr. Josie Sanchez HCG RANGE SEE BELOW Normal [facility] Comment on above: Result Comment: 5-50 0.2-1 WEEK 50-500 1-2 WEEKS 100-5,000 2-3 WEEKS 500-10,000 3-4 WEEKS 1,000-50,000 4-5 WEEKS 10,000-100,000 5-6 WEEKS 15,000-200,000 6-8 WEEKS 10,000-100,000 2-3 MONTHS Performed By: #### Clyde MEANS UMICRO #### [facility] [address] [place] [address] Dr. Josie Sanchez TSHon 11-09-2022 TSH 2.163 uIU/mL Normal 0.358-3.740 [facility] Comment on above: Performed By: #### Clyde MEANS UMICRO #### [facility] [address] [place] [address] Dr. Josie Sanchez PROGESTERONEon 08-29-2022 Progesterone 7.3 ng/mL Normal [facility] Comment on above: Result Comment: Foll icular phase 0.1 - 0.9 Luteal phase 1.8 - 23.9 Ovulation phase 0.1 - 12.0 First trimester 11.0 - 44.3 Second trimester 25.4 - 83.3 Third trimester 58.7 - 214.0 Postmenopausal 0.0 - 0.1 Performed By: #### P MADELINES #### [facility] [address] [place] [address] Dr. Josie Sanchez INSULINon 08-13-2022 Insulin 12.5 uIU/mL Normal 2.6-24.9 [facility] Comment on above: Performed By: #### P REGQNT #### [facility] [address] [place] [address] Dr. Josie Sanchez CBC AUTO DIFFon 08-12-2022 BASO # 0.0 103/ul Normal 0.0-0.1 [facility] Comment on above: Performed By: #### KIAN VALERIORO #### [facility] [address] [place] [address] Dr. Josie Sanchez Basophils/100 WBC (Bld) 0.2 % Normal 0.2-2.[address] [facility] Comment on above: Performed By: #### KIAN VALERIORO #### [facility] [address] [place] [address] Dr. Josie Sanchez EO # 0.1 103/ul Normal 0.0-0.7 [facility] Comment on above: Performed By: #### Clyde MEANS UMICRO #### [facility] [address] [place] [address] Dr. Josie Sanchez Eosinophils/100 WBC (Bld) 0.8 % Critically low 0.9-7. 0 [facility] Comment on above: Performed By: #### ROBERT VALERIOICRO #### [facility] [address] [place] [address] Dr. Josie Sanchez Erythrocyte distribution width (RBC) [Ratio] 14.0 % Normal 11.0-15.0 [facility] Comment on above: Performed By: #### Clyde MEANS UMICRO #### [facility] [address] [place] [address] Dr. Josie Sanchez Hematocrit (Bld) [Volume fraction] 39.5 % Normal 36.0-48.0 [facility] Comment on above: Performed By: #### Clyde MEANS UMICRO #### [facility] [address] [place] [address] Dr. Josie Sanchez Hemoglobin (Bld) [Mass/Vol] 12.7 g/dL Normal 12.0-16.0 [facility] Comment on above: Performed By: #### Clyde MEANS UMICRO #### [facility] [address] [place] [address] Dr. Josie Sanchez IG # 0.02 10e3/ul Normal 0.00-0.03 [facility] Comment on above: Performed By: #### Cldye MEANS UMICRO #### [facility] [address] [place] [address] Dr. Josie Sanchez IG % 0.3 % Normal 0.0-0.5 [facility] Comment on above: Performed By: #### Clyde MEANS UMICRO #### [facility] [address] [place] [address] Dr. Josie Sanchez LYMPH # 1.6 103/ul Normal 1.2-3.8 [facility] Comment on above: Performed By: #### Clyde MEANS UMICRO #### [facility] [address] [place] [address] Dr. Josie Sanchez Lymphocytes/100 WBC (Bld) 26.9 % Normal 20.5-60.0 [facility] Comment on above: Performed By: #### Clyde MEANS UMICRO #### [facility] [address] [place] [address] Dr. Josie Sanchez MANUAL DIFF REQ NO Normal [facility] Comment on above: Performed By: #### Clyde MEANS UMICRO #### [facility] [address] [place] [address] Dr. Josie Sanchez MCH (RBC) [Entitic mass] 28.3 pg Normal 26.7-34.0 [facility] Comment on above: Performed By: #### Clyde MEANS UMICRO #### [facility] [address] [place] [address] Dr. Josie Sanchez MCHC (RBC) [Mass/Vol] 32.2 g/dL Normal 29.9-35.2 [facility] Comment on above: Performed By: #### ROBERT VALERIOICRO #### [facility] [address] [place] [address] Dr. Josie Sanchez MCV (RBC) [Entitic vol] 88.0 fL Normal 81.0-99.[address] [facility] Comment on above: Performed By: #### ROBERT VALERIOICRO #### [facility] [address] [place] [address] Dr. Josie Sanchez MONO # 0.4 103/ul Normal 0.3-0.8 [facility] Comment on above: Performed By: #### Clyde MEANS UMICRO #### [facility] [address] [place] [address] Dr. Josie Sanchez Monocytes/100 WBC (Bld) 7.1 % Normal 1.7-12.[address] [facility] Comment on above: Performed By: #### Clyde MEANS UMICRO #### [facility] [address] [place] [address] Dr. Josie Sanchez NEUT # 3.8 103/ul Normal 1.4-6.5 [facility] Comment on above: Performed By: #### Clyde MEANS UMICRO #### [facility] [address] [place] [address] Dr. Josie Sanchez Neutrophils/100 WBC (Bld) 64.7 % Normal 43.0-75.0 [facility] Comment on above: Performed By: #### Clyde MEANS UMICRO #### [facility] [address] [place] [address] Dr. Josie Sanchez Platelet mean volume (Bld) [Entitic vol] 10.1 fL Normal 9.5-13.5 [facility] Comment on above: Performed By: #### Clyde MEANS UMICRO #### [facility] [address] [place] [address] Dr. Josie Sanchez PLT 211 103/ul Normal 150-450 [facility] Comment on above: Performed By: #### RILEY VALERIO #### [facility] [address] [place] [address] Dr. Josie Sanchez RBC 4.49 106/ul Normal 4.20-5.40 [facility] Comment on above: Performed By: #### RILEY VALERIO #### [facility] [address] [place] [address] Dr. Josie Sanchez WBC 5.9 103/ul Normal 4.0-11.0 [facility] Comment on above: Performed By: #### RILEY VALERIO #### [facility] [address] [place] [address] Dr. Josie Sanchez FREE THYROXINE INDEX T7on FTI 2.63 Normal 1.30-4.50 [facility] Comment on above: Performed By: #### RILEY VALERIO #### [facility] [address] [place] [address] Dr. Josie Sanchez T3U 35.0 % Normal 30.0-39.0 [facility] Comment on above: Performed By: #### RILEY VALERIO #### [facility] [address] [place] [address] Dr. Josie Sanchez T4 [Mass/Vol] 7.50 ug/dL Normal 4.80-13.90 [facility] Comment on above: Performed By: #### RILEY VALERIO #### [facility] [address] [place] [address] Dr. Josie Sanchez GLYCOHEMOGLOBIN A1Con 2022 ADA RECOMMENDATION SEE BELOW Normal [facility] Comment on above: Result Comment: ADA RECOMMENDED LIMIT 4.0 - 6.0 ADA THERAPEUTIC TARGET < 7.0 ACTION SUGGESTED > 7.0 Performed By: #### RILEY VALERIO #### [facility] [address] [place] [address] Dr. Josie Sanchez Glucose [Mass/Vol] 111 mg/dL Normal [facility] Comment on above: Performed By: #### RILEY VALERIO #### [facility] [address] [address] [address] Josie Sanchez HbA1c (Bld) [Mass fraction] 5.5 % Normal 4.5-6.2 [facility] Comment on above: Performed By: #### E RILEY MEANS #### [facility] [address] [address] [address] Josie Sanchez IRONon 08-12-2022 Iron [Mass/Vol] 40.0 ug/dL Critically low 50.0-170.0 [facility] Comment on above: Performed By: #### P REGQNT #### [facility] [address] [address] [address] Josie Sanchez LIPID PROFILEon 08-12-2022 CHOL-HDL RATIO NORM SEE BELOW Normal [facility] Comment on above: Result Comment: 3.3 - 4.4 LOW RISK 4.4 - 7.1 AVERAGE RISK 7.1 - 11.0 MODERATE RISK >11.0 HIGH RISK Performed By: #### P REGQNT #### [facility] [address] [address] [address] Josie Sanchez Cholesterol [Mass/Vol] 183 mg/dL Normal <=200 Th [facility] Comment on above: Performed By: #### P REGQNT #### [facility] [address] [address] [address] Josie Sanchez Cholesterol in HDL [Mass/Vol] 40 mg/dL Normal 40-60 [facility] Comment on above: Performed By: #### P REGQNT #### [facility] [address] [address] [address] Josie Sanchez Cholesterol in LDL [Mass/Vol] 131.0 mg/dL Normal [facility] Comment on above: Performed By: #### P REGQNT #### [facility] [address] [address] [address] Josie Sanchez Cholesterol.total/Choleste rol in HDL [Mass ratio] 4.6 {ratio} Normal [facility] Comment on above: Performed By: #### P REGQNT #### [facility] [address] [address] [address] Josie Sanchez HDL NORMAL > or = 60 mg/dl - LOW CARDIOVASCULAR RISK <40 mg/dl - HIGH CARDIOVASCULAR RISK Normal [facility] Comment on above: Performed By: #### P REGQNT #### [facility] [address] [place] [address] Dr. Josie Sanchez LDL CALC NORMAL SEE BELOW Normal [facility] Comment on above: Result Comment: <100 mg/dl OPTIMAL 100 - 129 mg/dl NEAR OR ABOVE OPTIMAL 130 - 159 mg/dl BORDERLINE HIGH 160 - 189 mg/dl HIGH >190 mg/dl VERY HIGH Performed By: #### P REGQNT #### [facility] [address] [address] [address] Josie Sanchez Triglyceride [Mass/Vol] 60 mg/dL Normal <=150 T [facility] Comment on above: Performed By: #### P REGQNT #### [facility] [address] [place] [address] Dr. Josie Sanchez VLDL CALC 12.0 mg/dL Normal [facility] Comment on above: Performed By: #### P REGQNT #### [facility] [address] [place] [address] Dr. Josie Sanchez PROF 14(COMP METB)on 023 Albumin [Mass/Vol] 3.7 g/dL Normal 3.4-5.0 [facility] Comment on above: Performed By: #### RILEY VALERIO #### [facility] [address] [place] [address] Dr. Josie Sanchez Albumin/Globulin [Mass ratio] 0.9 {ratio} Normal [facility] Comment on above: Performed By: #### KIAN VALERIORO #### [facility] [address] [place] [address] Dr. Josie Sanchez ALP [Catalytic activity/Vol] 131 U/L Critically high 46-116 [facility] Comment on above: Performed By: #### KIAN VALERIORO #### [facility] [address] [place] [address] Dr. Josie Sanchez ALT [Catalytic activity/Vol] 23 U/L Normal 14-59 [facility] Comment on above: Performed By: #### RILEY VALERIO #### [facility] [address] [place] [address] Dr. Josie Sanchez Anion gap [Moles/Vol] 10.5 mmol/L Normal [facility] Comment on above: Performed By: #### RILEY VALERIO #### [facility] [address] [place] [address] Dr. Josie Sanchez AST [Catalytic activity/Vol] 18 U/L Normal 15-37 [facility] Comment on above: Performed By: #### RILEY VALERIO #### [facility] [address] [place] [address] Dr. Josie Sanchez Bilirubin [Mass/Vol] 0.7 mg/dL Normal 0.2-1.0 [facility] Comment on above: Performed By: #### RILEY VALERIO #### [facility] [address] [place] [address] Dr. Josie Sanchez Calcium [Mass/Vol] 8.7 mg/dL Normal 8.5-10.1 [facility] Comment on above: Performed By: #### RILEY VALERIO #### [facility] [address] [place] [address] Dr. Josie Sanchez Chloride [Moles/Vol] 103 mmol/L Normal 98-107 [facility] Comment on above: Performed By: #### RILEY VALERIO #### [facility] [address] [place] [address] Dr. Josie Sanchez CO2 [Moles/Vol] 30.1 mmol/L Normal 21.0-32.0 [facility] Comment on above: Performed By: #### RILEY VALERIO #### [facility] [address] [place] [address] Dr. Josie Sanchez Creatinine [Mass/Vol] 0.66 mg/dL Normal 0.55-1.02 [facility] Comment on above: Performed By: #### KIAN VALERIORO #### [facility] [address] [place] [address] Dr. Josie Sanchez EGFR-AF ARGENTINE >60 Normal >=60 [facility] Comment on above: Performed By: #### RILEY VALERIO #### [facility] [address] [place] [address] Dr. Josie Sanchez EGFR-NON AF ARGENTINE >60 Normal >=60 [facility] Comment on above: Performed By: #### KIAN VALERIORO #### [facility] [address] [place] [address] Dr. Josie Sanchez Globulin (S) [Mass/Vol] 4.3 g/dL Normal [facility] Comment on above: Performed By: #### RILEY VALERIO #### [facility] [address] [place] [address] Dr. Josie Sanchez Glucose [Mass/Vol] 90 mg/dL Normal 74-106 [facility] Comment on above: Performed By: #### RILEY VALERIO #### [facility] [address] [place] [address] Dr. Josie Sanchez Potassium [Moles/Vol] 3.6 mmol/L Normal 3.5-5.1 [facility] Comment on above: Performed By: #### KIAN VALERIORO #### [facility] [address] [place] [address] Dr. Josie Sanchez Protein [Mass/Vol] 8.0 g/dL Normal 6.4-8.2 [facility] Comment on above: Performed By: #### KIAN VALERIORO #### [facility] [address] [place] [address] Dr. Josie Sanchez Sodium [Moles/Vol] 140 mmol/L Normal 136-145 [facility] Comment on above: Performed By: #### KIAN VALERIORO #### [facility] [address] [place] [address] Dr. Josie Sanchez Urea nitrogen [Mass/Vol] 12.0 mg/dL Normal 7.0-18.0 [facility] Comment on above: Performed By: #### RILEY VALERIO #### [facility] [address] [place] [address] Dr. Josie Sanchez Urea nitrogen/Creatinine [Mass ratio] 18.2 mg/mg Normal [facility] Comment on above: Performed By: #### RILEY VALERIO #### [facility] [address] [place] [address] Dr. Josie Sanchez TSHon 08-12-2022 TSH 3.070 uIU/mL Normal 0.358-3.740 [facility] Comment on above: Performed By: #### P REGQNT #### [facility] [address] [place] [address] Dr. Josie Sanchez PREG QUANT HCGon 06-22-2022 HCG QUANT 1 mIU/mL Normal [facility] Comment on above: Performed By: #### KIAN VALERIORO #### [facility] [address] [place] [address] Dr. Josie Sanchez HCG RANGE SEE BELOW Normal [facility] Comment on above: Result Comment: 5-50 0.2-1 WEEK 50-500 1-2 WEEKS 100-5,000 2-3 WEEKS 500-10,000 3-4 WEEKS 1,000-50,000 4-5 WEEKS 10,000-100,000 5-6 WEEKS 15,000-200,000 6-8 WEEKS 10,000-100,000 2-3 MONTHS Performed By: #### RILEY VALERIO #### [facility] [address] [place] [address] Dr. Josie Sanchez PREG QUANT HCGon 05-20-2022 HCG QUANT 6 mIU/mL Normal [facility] Comment on above: Performed By: #### P REGQNT #### [facility] [address] [place] [address] Dr. Josie Sanchez HCG RANGE SEE BELOW Normal [facility] Comment on above: Result Comment: 5-50 0.2-1 WEEK 50-500 1-2 WEEKS 100-5,000 2-3 WEEKS 500-10,000 3-4 WEEKS 1,000-50,000 4-5 WEEKS 10,000-100,000 5-6 WEEKS 15,000-200,000 6-8 WEEKS 10,000-100,000 2-3 MONTHS Performed By: #### P REGQNT #### [facility] [address] [place] [address] Dr. Josie Sanchez PREG QUANT HCGon 05-14-2022 HCG QUANT 26 mIU/mL Normal [facility] Comment on above: Performed By: #### P REGQNT #### [facility] [address] [place] [address] Dr. Josie Sanchez HCG RANGE SEE BELOW Normal [facility] Comment on above: Result Comment: 5-50 0.2-1 WEEK 50-500 1-2 WEEKS 100-5,000 2-3 WEEKS 500-10,000 3-4 WEEKS 1,000-50,000 4-5 WEEKS 10,000-100,000 5-6 WEEKS 15,000-200,000 6-8 WEEKS 10,000-100,000 2-3 MONTHS Performed By: #### P REGQNT #### [facility] [address] [place] [address] Dr. Josie Sanchez CBC AUTO DIFFon 05-08-2022 BASO # 0.0 103/ul Normal 0.0-0.1 [facility] Comment on above: Performed By: #### RILEY VALERIO #### [facility] [address] [place] [address] Dr. Josie Sanchez Basophils/100 WBC (Bld) 0.2 % Normal 0.2-2.[address] [facility] Comment on above: Performed By: #### RILEY VALERIO #### [facility] [address] [place] [address] Dr. Josie Sanchez EO # 0.0 103/ul Normal 0.0-0.7 [facility] Comment on above: Performed By: #### RILEY VALERIO #### [facility] [address] [place] [address] Dr. Josie Sanchez Eosinophils/100 WBC (Bld) 0.5 % Critically low 0.9-7. 0 [facility] Comment on above: Performed By: #### KIAN VALERIORO #### [facility] [address] [place] [address] Dr. Josie Sanchez Erythrocyte distribution width (RBC) [Ratio] 12.8 % Normal 11.0-15.0 [facility] Comment on above: Performed By: #### KIAN VALERIORO #### [facility] [address] [place] [address] Dr. Josie Sanchez Hematocrit (Bld) [Volume fraction] 41.0 % Normal 36.0-48.0 [facility] Comment on above: Performed By: #### KIAN VALERIORO #### [facility] [address] [place] [address] Dr. Josie Sanchez Hemoglobin (Bld) [Mass/Vol] 13.4 g/dL Normal 12.0-16.0 [facility] Comment on above: Performed By: #### KIAN VALERIORO #### [facility] [address] [place] [address] Dr. Josie Sanchez IG # 0.02 10e3/ul Normal 0.00-0.03 [facility] Comment on above: Performed By: #### KIAN VALERIORO #### [facility] [address] [place] [address] Dr. Josie Sanchez IG % 0.3 % Normal 0.0-0.5 [facility] Comment on above: Performed By: #### KIAN VALERIORO #### [facility] [address] [place] [address] Dr. Josie Sanchez LYMPH # 1.6 103/ul Normal 1.2-3.8 [facility] Comment on above: Performed By: #### KIAN VALERIORO #### [facility] [address] [place] [address] Dr. Josie Sanchez Lymphocytes/100 WBC (Bld) 27.1 % Normal 20.5-60.0 [facility] Comment on above: Performed By: #### KIAN VALERIORO #### [facility] [address] [place] [address] Dr. Josie Sanchez MANUAL DIFF REQ NO Normal [facility] Comment on above: Performed By: #### Clyde MEANS UMICRO #### [facility] [address] [place] [address] Dr. Josie Sanchez MCH (RBC) [Entitic mass] 29.3 pg Normal 26.7-34.0 [facility] Comment on above: Performed By: #### Clyde MEANS UMICRO #### [facility] [address] [place] [address] Dr. Josie Sanchez MCHC (RBC) [Mass/Vol] 32.7 g/dL Normal 29.9-35.2 [facility] Comment on above: Performed By: #### Clyed MEANS UMICRO #### [facility] [address] [place] [address] Dr. Josie Sanchez MCV (RBC) [Entitic vol] 89.5 fL Normal 81.0-99.[address] [facility] Comment on above: Performed By: #### Clyde MEANS UMICRO #### [facility] [address] [place] [address] Dr. Josie Sanchez MONO # 0.5 103/ul Normal 0.3-0.8 [facility] Comment on above: Performed By: #### Clyde MEANS UMICRO #### [facility] [address] [place] [address] Dr. Josie Sanchez Monocytes/100 WBC (Bld) 8.6 % Normal 1.7-12.[address] [facility] Comment on above: Performed By: #### Cldye MEANS UMICRO #### [facility] [address] [place] [address] Dr. Josie Sanchez NEUT # 3.7 103/ul Normal 1.4-6.5 [facility] Comment on above: Performed By: #### Clyde MEANS UMICRO #### [facility] [address] [place] [address] Dr. Josie Sanchez Neutrophils/100 WBC (Bld) 63.3 % Normal 43.0-75.0 [facility] Comment on above: Performed By: #### Clyde MEANS UMICRO #### [facility] [address] [address] [address] Josie Sanchez Platelet mean volume (Bld) [Entitic vol] 9.8 fL Normal 9.5-13.5 [facility] Comment on above: Performed By: #### Clyde MEANS, UMICRO #### [facility] [address] [address] [address] Josie Sanchez PLT 238 103/ul Normal 150-450 [facility] Comment on above: Performed By: #### Clyde MEANS, UMICRO #### [facility] [address] [place] [address] Dr. Josie Sanchez RBC 4.58 106/ul Normal 4.20-5.40 [facility] Comment on above: Performed By: #### Clyde MEANS, ICRO #### [facility] [address] [place] [address] Dr. Josie Sanchez WBC 5.8 103/ul Normal 4.0-11.0 [facility] Comment on above: Performed By: #### Clyde MEANS, ICRO #### [facility] [address] [place] [address] Dr. Josie Sanchez PREG QUANT HCGon 05-08-2022 HCG QUANT 2335 mIU/mL Normal [facility] Comment on above: Performed By: #### P REGQNT #### [facility] [address] [place] [address] Dr. Josie Sanchez HCG RANGE SEE BELOW Normal [facility] Comment on above: Result Comment: 5-50 0.2-1 WEEK 50-500 1-2 WEEKS 100-5,000 2-3 WEEKS 500-10,000 3-4 WEEKS 1,000-50,000 4-5 WEEKS 10,000-100,000 5-6 WEEKS 15,000-200,000 6-8 WEEKS 10,000-100,000 2-3 MONTHS Performed By: #### P REGQNT #### [facility] [address] [place] [address] Dr. Josie Sanchez CBC AUTO DIFFon 05-07-2022 BASO # 0.0 103/ul Normal 0.0-0.1 [facility] Comment on above: Performed By: #### RILEY VALERIO #### [facility] [address] [place] [address] Dr. Josie Sanchez Basophils/100 WBC (Bld) 0.2 % Normal 0.2-2.[address] [facility] Comment on above: Performed By: #### KIAN VALERIORO #### [facility] [address] [place] [address] Dr. Josie Sanchez EO # 0.0 103/ul Normal 0.0-0.7 [facility] Comment on above: Performed By: #### RILEY VALERIO #### [facility] [address] [place] [address] Dr. Josie Sanchez Eosinophils/100 WBC (Bld) 0.3 % Critically low 0.9-7. 0 [facility] Comment on above: Performed By: #### KIAN VALERIORO #### [facility] [address] [place] [address] Dr. Josie Sanchez Erythrocyte distribution width (RBC) [Ratio] 12.8 % Normal 11.0-15.0 [facility] Comment on above: Performed By: #### RILEY VALERIO #### [facility] [address] [place] [address] Dr. Josie Sanchez Hematocrit (Bld) [Volume fraction] 41.2 % Normal 36.0-48.0 [facility] Comment on above: Performed By: #### KIAN VALERIORO #### [facility] [address] [place] [address] Dr. Josie Sanchez Hemoglobin (Bld) [Mass/Vol] 13.3 g/dL Normal 12.0-16.0 [facility] Comment on above: Performed By: #### KIAN VALERIORO #### [facility] [address] [place] [address] Dr. Josie Sanchez IG # 0.02 10e3/ul Normal 0.00-0.03 [facility] Comment on above: Performed By: #### E RUR, UMICRO #### [facility] [address] [place] [address] Dr. Josie Sanchez IG % 0.3 % Normal 0.0-0.5 [facility] Comment on above: Performed By: #### E YOSELINR, UMICRO #### [facility] [address] [place] [address] Dr. Josie Sanchez LYMPH # 1.0 103/ul Critically low 1.2-3.8 [facility] Comment on above: Performed By: #### E MIGUELANGEL, UMICRO #### [facility] [address] [place] [address] Dr. Josie Sanchez Lymphocytes/100 WBC (Bld) 15.5 % Critically low 20.5-6 0.0 [facility] Comment on above: Performed By: #### Clyde MEANS UMICRO #### [facility] [address] [place] [address] Dr. Josie Sanchez MANUAL DIFF REQ NO Normal [facility] Comment on above: Performed By: #### Clyde MEANS UMICRO #### [facility] [address] [place] [address] Dr. Josie Sanchez MCH (RBC) [Entitic mass] 28.9 pg Normal 26.7-34.0 [facility] Comment on above: Performed By: #### Clyde MEANS UMICRO #### [facility] [address] [place] [address] Dr. Josie Sanchez MCHC (RBC) [Mass/Vol] 32.3 g/dL Normal 29.9-35.2 [facility] Comment on above: Performed By: #### E RUJolie, UMICRO #### [facility] [address] [place] [address] Dr. Josie Sanchez MCV (RBC) [Entitic vol] 89.6 fL Normal 81.0-99.[address] [facility] Comment on above: Performed By: #### E MIGUELANGEL, UMICRO #### [facility] [address] [place] [address] Dr. Josie Sanchez MONO # 0.4 103/ul Normal 0.3-0.8 [facility] Comment on above: Performed By: #### RILEY VALERIO #### [facility] [address] [place] [address] Dr. Josie Sanchez Monocytes/100 WBC (Bld) 6.2 % Normal 1.7-12.[address] [facility] Comment on above: Performed By: #### KIAN VALERIORO #### [facility] [address] [place] [address] Dr. Josie Sanchez NEUT # 5.0 103/ul Normal 1.4-6.5 [facility] Comment on above: Performed By: #### KIAN VALERIORO #### [facility] [address] [place] [address] Dr. Josie Sanchez Neutrophils/100 WBC (Bld) 77.5 % Critically high 43.0- 75.0 [facility] Comment on above: Performed By: #### KIAN VALERIORO #### [facility] [address] [place] [address] Dr. Josie Sanchez Platelet mean volume (Bld) [Entitic vol] 10.2 fL Normal 9.5-13.5 [facility] Comment on above: Performed By: #### KIAN VALERIORO #### [facility] [address] [place] [address] Dr. Josie Sanchez PLT 237 103/ul Normal 150-450 [facility] Comment on above: Performed By: #### KIAN VALERIORO #### [facility] [address] [place] [address] Dr. Josie Sanchez RBC 4.60 106/ul Normal 4.20-5.40 [facility] Comment on above: Performed By: #### KIAN VALERIORO #### [facility] [address] [place] [address] Dr. Josie Sanchez WBC 6.5 103/ul Normal 4.0-11.0 [facility] Comment on above: Performed By: #### KIAN VALERIORO #### [facility] [address] [place] [address] Dr. Josie Sanchez Covid-19 PCR (CVDTB)on 04-10 [...] for this test is supported by the [place] of Health and Human Service's (HHS's) declaration [...] SARS-CoV-2. Performed By: #### RILEY VALERIO #### [facility] [address] [place] [address] Dr. Josie Sanchez PREG QUANT HCGon 05-07-2022 HCG QUANT 2745 mIU/mL Normal [facility] Comment on above: Performed By: #### RILEY VALERIO #### [facility] [address] [place] [address] Dr. Josie Sanchez HCG RANGE SEE BELOW Normal [facility] Comment on above: Result Comment: 5-50 0.2-1 WEEK 50-500 1-2 WEEKS 100-5,000 2-3 WEEKS 500-10,000 3-4 WEEKS 1,000-50,000 4-5 WEEKS 10,000-100,000 5-6 WEEKS 15,000-200,000 6-8 WEEKS 10,000-100,000 2-3 MONTHS Performed By: #### RILEY VALERIO #### [facility] [address] [place] [address] Dr. Josie Sanchez US PREG TVon 05-05-2022 [...] by: PEREZ DURBIN Date: 2022-05-05 14:42 Normal [facility] ER URINE PROFILEon 2 Bilirubin Ql (U) Negative Normal NEGATIVE [facility] Comment on above: Performed By: #### RILEY VALERIO #### [facility] [address] [place] [address] Dr. Josie Sanchez Clarity (U) CLEAR Normal CLEAR [facility] Comment on above: Performed By: #### RILEY VALERIO #### [facility] [address] [place] [address] Dr. Josie Sanchez Color (U) YELLOW Normal YELLOW [facility] Comment on above: Performed By: #### RILEY VALERIO #### [facility] [address] [place] [address] Dr. Josie WU A micrscopic examination will be performed if indicated. Normal [facility] Comment on above: Performed By: #### RILEY VALERIO #### [facility] [address] [place] [address] Dr. Josie Sanhcez Glucose Ql (U) Negative Normal NEGATIVE [facility] Comment on above: Performed By: #### ROBERT VALERIOICRO #### [facility] [address] [address] [address] Josie Sanchez Hemoglobin Ql (U) SMALL Abnormal NEGATIVE [facility] Comment on above: Performed By: #### Clyde MEANS UMICRO #### [facility] [address] [place] [address] Dr. Josie Sanchez Ketones Ql (U) 15 mg/dl Abnormal NEGATIVE [facility] Comment on above: Performed By: #### ROBERT VALERIOICRO #### [facility] [address] [place] [address] Dr. Josie Sanchez LEUKOCYTES Negative Normal NEGATIVE [facility] Comment on above: Performed By: #### Clyde MEANS UMICRO #### [facility] [address] [place] [address] Dr. Josie Sanchez Nitrite Ql (U) Negative Normal NEGATIVE [facility] Comment on above: Performed By: #### KIAN VALERIORO #### [facility] [address] [place] [address] Dr. Josie Sanchez pH (U) 6.0 [pH] Normal 5-9 [facility] Comment on above: Performed By: #### KIAN VALERIORO #### [facility] [address] [place] [address] Dr. Josie Sanchez SPEC GRAVITY 1.020 Normal 1.005-<=1.02 5 [facility] Comment on above: Performed By: #### KIAN VALERIORO #### [facility] [address] [place] [address] Dr. Josie Sanchez UA PROTEIN Negative Normal NEGATIVE/ TRACE [facility] Comment on above: Performed By: #### KIAN VALERIORO #### [facility] [address] [place] [address] Dr. Josie Sanchez UR MICRO IND INDICATED Normal [facility] Comment on above: Performed By: #### KIAN VALERIORO #### [facility] [address] [place] [address] Dr. Josie Sanchez Urobilinogen Qn (U) 0.2 {Fabricio'U}/dL Normal 0.2 - 1. 0 [facility] Comment on above: Performed By: #### KIAN VALERIORO #### [facility] [address] [place] [address] Dr. Josie Sanchez URINE MICROSCOPIC ONLYon BACTERIA NONE SEEN Normal NONE SEEN [facility] Comment on above: Performed By: #### Clyde MEANS UMICRO #### [facility] [address] [place] [address] Dr. Josie Sanchez Bacteria identified Cx Nom (U) NOT INDICATED Normal [facility] Comment on above: Performed By: #### Clyde MEANS UMICRO #### [facility] [facility] [address] [place] [address] Dr. Josie Sanchez CAST NONE SEEN Normal NONE SEEN [facility] Comment on above: Performed By: #### Clyde MEANS UMICRO #### [facility] [address] [place] [address] Dr. Josie Sanchez Crystals LM Nom (Urine sed) NONE SEEN Normal NONE SEEN [facility] Comment on above: Performed By: #### Clyde MEANS UMICRO #### [facility] [address] [place] [address] Dr. Josie Sanchez Epithelial cells LM Ql (Urine sed) NONE SEEN Normal NONE SEEN /RARE [facility] Comment on above: Performed By: #### Clyde MEANS UMICRO #### [facility] [address] [place] [address] Dr. Josie Sanchez MUCOUS MODERATE Abnormal NONE SEEN [facility] Comment on above: Performed By: #### Clyde MEANS UMICRO #### [facility] [address] [place] [address] Dr. Josie Sanchez RBC 0-2 Normal 0-2 [facility] Comment on above: Performed By: #### Clyde MEANS UMICRO #### [facility] [address] [place] [address] Dr. Josie Sanchez WBC NONE SEEN Normal NONE SEEN [facility] Comment on above: Performed By: #### RILEY VALERIO #### [facility] [address] [place] [address] Dr. Josie Sanchez PREG QUANT HCGon 04-20-2022 HCG QUANT 26145 mIU/mL Normal [facility] Comment on above: Performed By: #### KIAN VALERIORO #### [facility] [address] [place] [address] Dr. Josie Sanchez HCG RANGE SEE BELOW Normal [facility] Comment on above: Result Comment: 5-50 0.2-1 WEEK 50-500 1-2 WEEKS 100-5,000 2-3 WEEKS 500-10,000 3-4 WEEKS 1,000-50,000 4-5 WEEKS 10,000-100,000 5-6 WEEKS 15,000-200,000 6-8 WEEKS 10,000-100,000 2-3 MONTHS Performed By: #### KIAN VALERIORO #### [facility] [address] [place] [address] Dr. Josie Sanchez HCG-BETA SUBUNIT QUANTon hCG,Beta Subunit,Qnt,Serum <1 Normal [facility] Comment on above: Result Comment: Fema le (Non-) 0 - 5 (Postmenopausal) 0 - 8 . Female () Weeks of Gestation 3 6 - 71 4 10 - 750 5 217 - 7138 6 158 - 17685 7 3047 -689506 8 99445 -046394 9 35368 -407886 10 64914 -874363 12 34524 -592029 14 09077 - 13756 15 29554 - 27980 16 0309 - 76100 17 3503 - 44724 18 9651 - 87253 Regina ECLIA methodology Performed By: #### KIAN VALERIORO #### [facility] [address] [place] [address] Dr. Josie Sanchez CBC AUTO DIFFon 02-18-2022 BASO # 0.0 103/ul Normal 0.0-0.1 [facility] Comment on above: Performed By: #### Selma BC #### [facility] [address] [place] [address] Dr. Josie Sanchez Basophils/100 WBC (Bld) 0.2 % Normal 0.2-2.[address] [facility] Comment on above: Performed By: #### C BC #### [facility] [address] [place] [address] Dr. Josie Sanchez EO # 0.1 103/ul Normal 0.0-0.7 [facility] Comment on above: Performed By: #### C BC #### [facility] [address] [place] [address] Dr. Josie Sanchez Eosinophils/100 WBC (Bld) 0.8 % Critically low 0.9-7. 0 [facility] Comment on above: Performed By: #### C BC #### [facility] [address] [place] [address] Dr. Josie Sanchez Erythrocyte distribution width (RBC) [Ratio] 12.5 % Normal 11.0-15.0 [facility] Comment on above: Performed By: #### C BC #### [facility] [address] [place] [address] Dr. Josie Sanchez Hematocrit (Bld) [Volume fraction] 39.5 % Normal 36.0-48.0 [facility] Comment on above: Performed By: #### C BC #### [facility] [address] [place] [address] Dr. Josie Sanchez Hemoglobin (Bld) [Mass/Vol] 13.0 g/dL Normal 12.0-16.0 [facility] Comment on above: Performed By: #### C BC #### [facility] [address] [place] [address] Dr. Josie Sanchez IG # 0.02 10e3/ul Normal 0.00-0.03 [facility] Comment on above: Performed By: #### C BC #### [facility] [address] [place] [address] Dr. Josie Sanchez IG % 0.3 % Normal 0.0-0.5 [facility] Comment on above: Performed By: #### C BC #### [facility] [address] [place] [address] Dr. Josie Sanchez LYMPH # 1.5 103/ul Normal 1.2-3.8 [facility] Comment on above: Performed By: #### C BC #### [facility] [address] [place] [address] Dr. Josie Sanchez Lymphocytes/100 WBC (Bld) 22.9 % Normal 20.5-60.0 [facility] Comment on above: Performed By: #### C BC #### [facility] [address] [place] [address] Dr. Josie Sanchez MANUAL DIFF REQ NO Normal [facility] Comment on above: Performed By: #### C BC #### [facility] [address] [place] [address] Dr. Josie Sanchez MCH (RBC) [Entitic mass] 30.3 pg Normal 26.7-34.0 [facility] Comment on above: Performed By: #### C BC #### [facility] [address] [place] [address] Dr. Josie Sanchez MCHC (RBC) [Mass/Vol] 32.9 g/dL Normal 29.9-35.2 [facility] Comment on above: Performed By: #### C BC #### [facility] [address] [place] [address] Dr. Josie Sanchez MCV (RBC) [Entitic vol] 92.1 fL Normal 81.0-99.[address] [facility] Comment on above: Performed By: #### C BC #### [facility] [address] [place] [address] Dr. Josie Sanchez MONO # 0.4 103/ul Normal 0.3-0.8 [facility] Comment on above: Performed By: #### C BC #### [facility] [address] [place] [address] Dr. Josie Sanchez Monocytes/100 WBC (Bld) 5.7 % Normal 1.7-12.[address] [facility] Comment on above: Performed By: #### C BC #### [facility] [address] [place] [address] Dr. Josie Sanchez NEUT # 4.6 103/ul Normal 1.4-6.5 [facility] Comment on above: Performed By: #### C BC #### [facility] [address] [place] [address] Dr. Josie Sanchez Neutrophils/100 WBC (Bld) 70.1 % Normal 43.0-75.0 [facility] Comment on above: Performed By: #### C BC #### [facility] [address] [place] [address] Dr. Josie Sanchez Platelet mean volume (Bld) [Entitic vol] 10.0 fL Normal 9.5-13.5 [facility] Comment on above: Performed By: #### C BC #### [facility] [address] [place] [address] Dr. Josie Sanchez PLT 242 103/ul Normal 150-450 [facility] Comment on above: Performed By: #### C BC #### [facility] [address] [place] [address] Dr. Josie Sanchez RBC 4.29 106/ul Normal 4.20-5.40 [facility] Comment on above: Performed By: #### C BC #### [facility] [address] [place] [address] Dr. Josie Sanchez WBC 6.5 103/ul Normal 4.0-11.0 [facility] Comment on above: Performed By: #### C BC #### [facility] [address] [place] [address] Dr. Josie Sanchez LIPID PROFILEon 02-18-2022 CHOL-HDL RATIO NORM SEE BELOW Normal [facility] Comment on above: Result Comment: 3.3 - 4.4 LOW RISK 4.4 - 7.1 AVERAGE RISK 7.1 - 11.0 MODERATE RISK >11.0 HIGH RISK Performed By: #### L IPID, TSH #### [facility] [address] [place] [address] Dr. Josie Sanchez Cholesterol [Mass/Vol] 182 mg/dL Normal <=200 Th [facility] Comment on above: Performed By: #### L IPID, TSH #### [facility] [address] [place] [address] Dr. Josie Sanchez Cholesterol in HDL [Mass/Vol] 40 mg/dL Normal 40-60 [facility] Comment on above: Performed By: #### L IPID, TSH #### [facility] [address] [address] [address] Josie Sanchez Cholesterol in LDL [Mass/Vol] 122.4 mg/dL Normal [facility] Comment on above: Performed By: #### L IPID, TSH #### [facility] [address] [address] [address] Josie Sanchez Cholesterol.total/Choleste rol in HDL [Mass ratio] 4.6 {ratio} Normal [facility] Comment on above: Performed By: #### L IPID, TSH #### [facility] [address] [address] [address] Josie Sanchez HDL NORMAL > or = 60 mg/dl - LOW CARDIOVASCULAR RISK <40 mg/dl - HIGH CARDIOVASCULAR RISK Normal [facility] Comment on above: Performed By: #### L IPID, TSH #### [facility] [address] [address] [address] Josie Sanchez LDL CALC NORMAL SEE BELOW Normal [facility] Comment on above: Result Comment: <100 mg/dl OPTIMAL 100 - 129 mg/dl NEAR OR ABOVE OPTIMAL 130 - 159 mg/dl BORDERLINE HIGH 160 - 189 mg/dl HIGH >190 mg/dl VERY HIGH Performed By: #### L IPID, TSH #### [facility] [address] [address] [address] Josie Sanchez Triglyceride [Mass/Vol] 98 mg/dL Normal <=150 T [facility] Comment on above: Performed By: #### L IPID, TSH #### [facility] [address] [address] [address] Josie Sanchez VLDL CALC 19.6 mg/dL Normal [facility] Comment on above: Performed By: #### L IPID, TSH #### [facility] [address] [address] [address] Josie Sanchez PROTIMEon 02-18-2022 INR Coag (PPP) [Relative time] 1.10 {INR} Normal [facility] Comment on above: Performed By: #### P REGQNT #### [facility] [address] [place] [address] Dr. Josie Sanchez INR GUIDELINES SEE BELOW Normal [facility] Comment on above: Result Comment: PAULINA RED INR: 2.0 - 3.0 CONDITIONS NOT LISTED BELOW 2.5 - 3.5 FOR PROSTHETIC HEART VALVE REPLACEMENT 2.5 - 3.5 RECURRENT THROMBOSIS Performed By: #### P REGQNT #### [facility] [address] [place] [address] Dr. Josie Sanchez PT Coag (PPP) [Time] 11.8 s Critically high 9.0-11.6 [facility] Comment on above: Performed By: #### P REGQNT #### [facility] [address] [place] [address] Dr. Josie Sanchez PTTon 02-18-2022 aPTT Coag (Bld) [Time] 29.8 s Normal 22.3-36.2 [facility] Comment on above: Performed By: #### P REGQNT #### [facility] [address] [place] [address] Dr. Josie Sanchez TSHon 02-18-2022 TSH 3.410 uIU/mL Normal 0.358-3.740 [facility] Comment on above: Performed By: #### L IPID, TSH #### [facility] [address] [place] [address] Dr. Josie Sanchez US PELVIS AND TRANSVAGon [...] by: PEREZ DURBIN Date: 2022-02-18 18:56 Normal [facility] Nursing Note - Woundon 08-15 Nursing Note - Wound [id number] 99616#3.00CD:127 Normal [facility] Coding Summary.on 08-08-2020 Coding Summary. CODING DATE: 08/08/2020 FINAL [facility] STATUS: Home (Routine DC) PAYOR: Medicaid [...] Date Saved: 08/08/2020 10:31 am [facility] Formson 08-08-2020 Forms [id number] 0459#1.00CD:127 Normal [facility] Home Health Recordson 2019 Home Health Records [id number] 3EFD#1.00CD:127 [facility] Ambulatory Clinical Summaryo n 07-26-2020 Ambulatory Clinical Summary {[id number] -[id number] -33-60-e2-c7}CD:61 4368 [facility] Home Health Recordson 2019 Home Health Records [id number]#1.00CD:127 [facility] Progress Note - Woundon 07-09 Progress Note - Wound [id number] 11486#2.00CD:127 [facility] Consent for Treatmenton 07-09 Consent for Treatment [id number] AFAA#1.00CD:127 [facility] Multi-Wound Charton 07-25-20 20 Multi-Wound Chart [id number]#1.00CD:127 [facility] Nursing Assessment - Woundon 07-25-2020 Nursing Assessment - Wound [id number] 7.202 [id number] 98171#1.00CD:127 [facility] Physician Orderon 07-25-2020 Physician Order [id number]#1.00CD:127 [facility] Home Health Record[facility] 2019 Home Health Records [id number] 3741#1.00CD:127 [facility] Home Health Recordson 2019 Home Health Records [id number] 3554#1.00CD:127 [facility] Coding Summary.on 07-12-2020 Coding Summary. 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 However, the narrative phrase printed from the coding software may appear abbreviated, or result in slightly different terminology. Coded By: Aicha Bledsoe CphT Date Saved: 07/12/2020 03:05 pm [facility] Coding Summary. 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 However, the narrative phrase printed from the coding software may appear abbreviated, or result in slightly different terminology. Coded By: Aicha Bledsoe CphT Date Saved: 07/12/2020 03:03 pm [facility] Multi-Wound Charton 07-12-20 20 Multi-Wound Chart [id number]#1.00CD:127 [facility] Nursing Assessment - Woundon 07-12-2020 Nursing Assessment - Wound [id number] 7. [id number] 59425#1.00CD:127 [facility] Nursing Note - Woundon 07-12 Nursing Note - Wound [id number] 50772#1.00CD:127 [facility] Consent for Procedure/Surger yon 07-11-2020 Consent for Procedure/Surgery [id number] 14975#1.00CD:127 [facility] Consent for Treatmenton Consent for Treatment [id number] B36A#1.00CD:127 [facility] Home Health Recordson 2019 Home Health Records [id number] [id number]#1.00CD:127 [facility] Home Health Records [id number]#1.00CD:127 [facility] Physician Orderon 07-11-2020 Physician Order [id number] 83746#1.00CD:127 [facility] Progress Note - Woundon Progress Note - Wound [id number] [id number] 32094#1.00CD:127 [facility] Nursing Note - Woundon 07-02 Nursing Note - Wound [id number] [id number] 06299#3.00CD:127 [facility] Consent for Procedure/Surger yon 06-28-2020 Consent for Procedure/Surgery 149.45.122.6. [id number] 0200#1.00CD:127 [facility] Consent to Photographon 06-10 Consent to Photograph 149.45.122.6. [id number] 0326#1.00CD:127 [facility] HIPAA Privacy Documentson HIPAA Privacy Documents [id number] 0158#1.00CD:127 [facility] Nursing Note - Woundon 06-28 Nursing Note - Wound 149.45.122.6. [id number] 0289#1.00CD:127 [facility] Nursing Note - Wound 149.45.122.6. [id number] 0217#1.00CD:127 [facility] Consent for Treatmenton 06-09 Consent for Treatment [id number] EEDA#1.00CD:127 [facility] Multi-Wound Charton 06-27-20 20 Multi-Wound Chart [id number] 58229#1.00CD:127 [facility] Nursing Assessment - Woundon 06-27-2020 Nursing Assessment - Wound 170.71.121.11 7.202 [id number] 30795#1.00CD:127 [facility] Physician Orderon 06-27-2020 Physician Order [id number] 81677#2.00CD:127 [facility] Progress Note - Woundon 06-09 Progress Note - Wound [id number] [id number] 76507#1.00CD:127 [facility] HIPAA Privacy Documentson HIPAA Privacy Documents [id number] 02 [id number]#1.00CD:127 [facility] Outside Records Officeon Outside Records Office [id number] 2 [id number] 224304#1.00CD:127 [facility] Vital Signs Date Time Vital Sign Value Performing Clinician Facility 11-20-2022 15:05-0400 Body height 152.4 cm Gloria Jackelyn Other [facility] 11-20-2022 15:05-0400 Body mass index (BMI) [Ratio] 11.72 kg/m2 Gloria Jackelyn Other [facility] 11-20-2022 15:05-0400 Body temperature 97.7 [degF] Gloria Hayden Other [facility] Other 11-20-2022 15:05-0400 Body weight 27.22 kg Gloria Jackelyn Other [facility] 11-20-2022 15:05-0400 Respiratory rate 18 /min Gloria Hayden Other [facility] Other 11-20-2022 15:05 SaO2% (BldA) [Mass fraction] 97 % Gloria Hayden Other [facility] Other Encounters Encounter Date Encounter Type Care [...] 11-20-2022 End: 11-20-2022 ambulatory Gloria Hayden Other [facility] Other Start: 11-20-2022 Office outpatient vi sit [...] laboratory examination DR NORBERT VEGA . [facility] Start: 05-08-2022 End: 05-08-[address] [...] . Facility:[facility] Start: 03-27-[address] NORBERT VEAG . Facili ty:[facility] Start: 03-23-[address] NORBERT VEGA . Facili ty:[facility] Start: 03-12-2022 End: 03-13-[address] NORBERT VEGA . Facility:[facility] Start: 02-18-2022 End: 02-19-[address] QUOC WATTS . Facility: Procedures Date Procedure Procedure Detail Performing Clinician Start: 09-20-2023 ALL CBC WITH AUTO DIFF Norbert Vega DO Work Phone: Payers Date Payer Category Payer Medicaid [id number] 2022 Medicaid [facility] BCBS MEDICA[place] [id number] 2022-Present [address] [place] [address] [id number] 1985 Unknown [id number] 2.16.840.1.331961.3.579.2.593 1985 Unknown [id number] 2.16.840.1.974697.3.579.2.593 1985 Unknown [id number] 2.16.840.1.006142.3.579.2.593 1985 Unknown [id number] 2.16.840.1.612254.3.579.2.593 1985 Unknown [id number] 2.16.840.1.815428.3.579.2.593 1985 Unknown [id number] 2.16.840.1.364625.3.579.2.593 1985 Unknown [id number] 2.16.840.1.062815.3.579.2.593 1985 Unknown [id number] 2.16.840.1.678125.3.579.2.593 1985 Unknown [id number] 2.16.840.1.183202.3.579.2.593 1985 Unknown [id number] 2.16.840.1.266839.3.579.2.593 1985 Unknown [id number] 2.16.840.1.982010.3.579.2.593 1985 Unknown [id number] 2.16.840.1.304393.3.579.2.593 1985 Unknown [id number] 2.16.840.1.385973.3.579.2.593 1985 Unknown [id number] 2.16.840.1.675115.3.579.2.593 1985 Unknown [id number] 2.16.840.1.858262.3.579.2.593 1985 Unknown [id number] 2.16.840.1.399253.3.579.2.593 1985 Unknown [id number] 2.16.840.1.773086.3.579.2.593 1985 Unknown [id number] 2.16.840.1.688971.3.579.2.593 1985 Unknown [id number] 2.16.840.1.385481.3.579.2.593 1985 Unknown [id number] 2.16.840.1.817122.3.579.2.593 1985 Unknown [id number] 2.16.840.1.756011.3.579.2.1259 1985 Unknown [id number] 2.16.840.1.730677.3.579.2.1259 1985 Unknown [id number] 2.16.840.1.023574.3.579.2.1259 1985 Unknown [id number] 2.16.840.1.484457.3.579.2.1259 1959 Self-pay 1959 Unknown [id number] Social History Date Type Detail Facility Unknown if ever smoked [facility] Other Start: 12-21-2022 Sex Assigned At [facility] Other Start: 12-21-2022 Tobacco smoking status [facility] Never smoked tobacco [facility] Start: 12-21-2022 Tobacco use and exposure Smokeless tobacco non-user [facility] Start: 08-23-2023 Alcohol intake Current drinke r of alcohol (finding) [facility] Start: 12-21-2022 History of Social function [facility] Start: 01-14-2023 Alcohol Comment caffeine intak e: occasionally [facility] Start: 1985 Sex Assigned At Not on file [facility] Evaluation note 11-20-2022 Note Date [...] Contact dermatitis home care material was printed [facility] Clinical Note 05-08-2022 Note Date & [...] by: PEREZ DURBIN Date: 2022-05-08 18:03 [facility] Clinical Note 05-08-2022 Note Date & Type Note Facility 05-08-2022 Note OPERATIVE NOTE OPERATION DATE: 05/08/2022 PROCEDURE: Suction D AND C. PREOPERATIVE DIAGNOSIS: 1. Suspected molar during first trimester. 2. Uterine mass approximately 4.5 cm. POSTOPERATIVE DIAGNOSIS: 1. Suspected molar during first trimester. 2. Uterine mass approximately 4.5 cm. 3. Significant large amounts of retained products. SURGEON: Norbert Vega D.O. LABORATORY ASSOCIATE: None. BLOOD LOSS: 100 mL. URINE OUTPUT: [...] products of conception were removed using a 9-Niuean suction curette tip. Excellent hemostasis was noted. The patient tolerated the procedure well. Sponge, lap, and needle counts were correct x 2. All instruments were then removed from the patient's vagina. The patient was taken to the Recovery Room in stable condition. ?? [facility] History general Narrative - Reported Note Date & Type Note Facility History general Narrative - Reported Type Medical History Hypercholesterolemia Medical History Hormone imbalance Medical History Vitamin D deficiency Medical History Iron deficiency Surgical History C section Surgical History oral surgery Surgical History tonsillectomy and adenoidectomy Surgical History D&C 2021 Hospitalization History child [facility] Other Summary Purpose Family History No Family History Records FoundNo Family History Records FoundNo Family History Records Found Advance Directives No Advanced Directives Records FoundNo Advanced Directives Records FoundNo Advanced Directives Records Found Additional Source Comments INFORMATION SOURCE (unrecogn ized section and content) DATE CREATED AUTHOR 08/15/2020 [employer] [place] [facility] DATE CREATED AUTHOR AUTHOR'S ORGANIZ ATION 12/22/2022 [facility] DATE CREATED AUTHOR AUTHOR'S ORGANIZ ATION 12/07/2023 [facility] EPIC REASON FOR VISIT (unrecogniz ed section and content) [facility] Care Teams (unrecognized sec tion and content) Intervention Specialist Relationship Specialty Start Date End Date Quoc Watts MD [address] [place] [id number] PCP - General Family Medicine 12/28/22 FOR [...] BE BASED ON THE PRIMARY CLINICAL RECORDS. [employer] provides no warranty or guarantee of the accuracy or completeness of information in this document.
[2024-02-14 11:08] LABS: Progesterone 39.1 ng/mL (.)
== END 2024-02-12 12:18 | disposition home or self-care (01) ==
LOC: LAB 12:18
PROVIDERS: PCP Family Medicine; Visit Provider Obstetrics & Gynecology
DX: N97.0 Female infertility associated with anovulation (principal)
CPT/HCPCS: 36415; 84144

== ENCOUNTER 2024-03-15 11:54 | Outpatient (OUT) | payer MEDICAID, SELFPAY ==
--- OUTSIDE RECORDS SUMMARY | 2024-03-15 12:00 | XMS_ITS | CCD ---
Author Organization [facility]iniSy[facility] Care Team Providers Care Car Sales Consultant Name Role Phone Gloria Hayden Unavailable MAC [...] HOY ., DR KUMARI Primary Care Unavailable ROCHESTER, DR PEREZ Luther Consulting Unavailable SILVIA ., DR TOUSSAINT Attending Unavailable SILVIA ., DR TOUSSAINT Consulting Unavailable HOY ., DR KUMARI Primary Care Unavailable ROCHESTER, DR PEREZ Luther Consulting Unavailable SILVIA ., DR TOUSSAINT Admitting Unavailable SILVIA ., DR TOUSSAINT Attending Unavailable SILVIA ., DR TOUSSAINT Consulting Unavailable SILVIA ., DR TOUSSAINT Admitting Unavailable HOY ., DR KUMARI Primary Care Unavailable ROCHESTER, DR PEREZ Luther Consulting Unavailable SILVIA ., [...] Mac VILLARREAL, Quoc Cedeno Primary Care Provider [phone] NORBERT VEGA Attending Unavailable NORBERT VEGA Attending Unavailable NORBERT VEGA Attending Unavailable NORBERT VEGA Attending Unavailable Allergies Allergy Classification Reported Allergen(s) Allergy Type Date of Onset Reaction(s) Facility (1 source) Penicillin G Drug Allergy throat swelling Oculo Therapy Other (1 source) Cefaclor Drug Allergy [facility] Rep[facility] (2 sources) Penicillins Drug allergy (disorder) 01-26-20 16 [facility] Rep[facility] (1 source) Penicillins Drug Intolerance 10-21-19 [...] AUTO DIFFon BASOPHILS ABSOLUTE AUTO 0.0 [facility] Basophils/100 WBC (Bld) 0.2 % 0.2 - 2.0 % [facility] Eosinophils/100 WBC (Bld) 0.8 % Low 0.9 - 7.0 % [facility] Erythrocyte distribution width (RBC) [Ratio] 13.4 % 11.0 - 15.0 % [facility] Hematocrit (Bld) [Volume fraction] 42.3 % 36.0 - 48.0 % [facility] Hemoglobin (Bld) [Mass/Vol] 13.6 g/dL 12.0 - 16.0 g/dL [facility] IMMATURE GRANULOCYTES ABS AUTO 0.02 [facility] Immature granulocytes/100 WBC (Bld) 0.3 % 0.0 - 0.5 % [facility] Interpretation and review of laboratory results Abnormal [facility] LYMPHOCYTES ABSOLUTE AUTO 1.7 [facility] Lymphocytes/100 WBC (Bld) 26.5 % 20 .5 - 60.0 % [facility] MCH (RBC) [Entitic mass] 30.1 pg 26. 7 - 34.0 pg [facility] MCHC (RBC) [Mass/Vol] 32.2 g/dL 29.9 - 35.2 g/dL [facility] MCV (RBC) [Entitic vol] 93.6 fL 81.0 - 99.0 fL [facility] MONOCYTES ABSOLUTE AUTO 0.5 N [facility] Monocytes/100 WBC (Bld) 7.3 % 1.7 - 12.0 % [facility] NEUTROPHILS ABSOLUTE AUTO 4.3 [facility] Neutrophils/100 WBC (Bld) 64.9 % 43 .0 - 75.0 % [facility] Platelet mean volume (Bld) [Entitic vol] 10.8 fL 9.5 - 13.5 fL [facility] TBH EO # 0.1 [facility] PLT 220 [facility] RBC 4.52 [facility] WBC 6.5 [facility] PROGESTERONEon 12-19-2022 Progesterone 9.6 ng/mL Normal [facility] Comment on above: Result Comment: Foll icular phase 0.1 - 0.9 Luteal phase 1.8 - 23.9 Ovulation phase 0.1 - 12.0 First trimester 11.0 - 44.3 Second trimester 25.4 - 83.3 Third trimester 58.7 - 214.0 Postmenopausal 0.0 - 0.1 Performed By: #### P ROGES #### [facility] [address] [place] [address] Dr. Josie Sanchez PROGESTERONEon 11-19-2022 Progesterone 6.3 ng/mL Normal [facility] Comment on above: Result Comment: Foll icular phase 0.1 - 0.9 Luteal phase 1.8 - 23.9 Ovulation phase 0.1 - 12.0 First trimester 11.0 - 44.3 Second trimester 25.4 - 83.3 Third trimester 58.7 - 214.0 Postmenopausal 0.0 - 0.1 Performed By: #### P ROGES #### [facility] [address] [place] [address] Dr. Josie Sanchez PREG QUANT HCGon 11-18-2022 HCG QUANT <1 Normal [facility] Comment on above: Performed By: #### P REGQNT #### [facility] [address] [place] [address] Dr. Josie Sanchez HCG RANGE SEE BELOW Normal [facility] Comment on above: Result Comment: 5-50 0.2-1 WEEK 50-500 1-2 WEEKS 100-5,000 2-3 WEEKS 500-10,000 3-4 WEEKS 1,000-50,000 4-5 WEEKS 10,000-100,000 5-6 WEEKS 15,000-200,000 6-8 WEEKS 10,000-100,000 2-3 MONTHS Performed By: #### P REGQNT #### [facility] [address] [place] [address] Dr. Josie Sanchez US PELVIS AND TRANSVAGon [...] of a yolk sac as noted by pathology technologist. No significant free pelvic fluid is [...] by: RENE MEYERS Date: 2022-11-16 18:09 Normal [facility] DHEA SERUMon 11-11-2022 Dehydroepiandrosterone (DHEA) 335 ng/dL Normal 31-701 [facility] Comment on above: Performed By: #### E RILEY MEANS #### [facility] [address] [place] [address] Dr. Josie Sanchez DHEA-SULFATEon 11-10-2022 DHEA-Sulfate 251.0 ug/dL Normal 57.3-279.2 [facility] [place] Comment on above: Performed By: #### P REGQNT #### [facility] [address] [place], [place] [address] Dr. Josie Sanchez ESTRADIOLon 11-10-2022 Estradiol 66.1 pg/mL Normal [facility] Comment on above: Result Comment: Adul t Female: Follicular phase 12.5 - 166.0 Ovulation phase 85.8 - 498.0 Luteal phase 43.8 - 211.0 Postmenopausal <6.0 - 54.7 1st trimester 215.0 - >4300.0 [facility] ECLIA methodology Performed By: #### E MIGUELANGEL UMICRO #### [facility] [address] [place] [address] Dr. Josie Sacnhez FSHon 11-10-2022 FSH 6.9 mIU/mL Normal [facility] Comment on above: Result Comment: Adul t Female: Follicular phase 3.5 - 12.5 Ovulation phase 4.7 - 21.5 Luteal phase 1.7 - 7.7 Postmenopausal 25.8 - 134.8 Performed By: #### P REGQNT #### [facility] [address] [place] [address] Dr. Josie Sanchez LUTEINIZING HORMONE (LH)on 0 11-10-2022 LH 9.9 mIU/mL Normal [facility] Comment on above: Result Comment: Adul t Female: Follicular phase 2.4 - 12.6 Ovulation phase 14.0 - 95.6 Luteal phase 1.0 - 11.4 Postmenopausal 7.7 - 58.5 Performed By: #### RILEY VALERIO #### [facility] [address] [place] [address] Dr. Josie Sanchez CBC AUTO DIFFon 11-09-2022 BASO # 0.0 103/ul Normal 0.0-0.1 [facility] Comment on above: Performed By: #### RILEY VALERIO #### [facility] [address] [place] [address] Dr. Josie Sanchez Basophils/100 WBC (Bld) 0.3 % Normal 0.2-2.0 [facility] Comment on above: Performed By: #### RILEY VALERIO #### [facility] [address] [place] [address] Dr. Josie Sancehz EO # 0.0 103/ul Normal 0.0-0.7 [facility] Comment on above: Performed By: #### RILEY VALERIO #### [facility] [address] [place] [address] Dr. Josie Sanchez Eosinophils/100 WBC (Bld) 0.5 % Critically low 0.9-7. 0 [facility] Comment on above: Performed By: #### RILEY VALERIO #### [facility] [address] [place] [address] Dr. Josie Sanchez Erythrocyte distribution width (RBC) [Ratio] 13.2 % Normal 11.0-15.0 [facility] Comment on above: Performed By: #### Clyde MEANS UMICRO #### [facility] [address] [place] [address] Dr. Josie Sanchez Hematocrit (Bld) [Volume fraction] 41.8 % Normal 36.0-48.0 [facility] Comment on above: Performed By: #### Clyde MEANS UMICRO #### [facility] [address] [place] [address] Dr. Josie Sanchez Hemoglobin (Bld) [Mass/Vol] 13.7 g/dL Normal 12.0-16.0 [facility] Comment on above: Performed By: #### Clyde MEANS UMICRO #### [facility] [address] [place] [address] Dr. Josie Sanchez IG # 0.02 10e3/ul Normal 0.00-0.03 [facility] Comment on above: Performed By: #### Clyde MEANS UMICRO #### [facility] [address] [place] [address] Dr. Josie Sanchez IG % 0.3 % Normal 0.0-0.5 [facility] Comment on above: Performed By: #### Clyde MEANS UMICRO #### [facility] [address] [place] [address] Dr. Josie Sanchez LYMPH # 1.2 103/ul Normal 1.2-3.8 [facility] Comment on above: Performed By: #### Clyde MEANS UMICRO #### [facility] [address] [place] [address] Dr. Josie Sanchez Lymphocytes/100 WBC (Bld) 18.4 % Critically low 20.5-6 0.0 [facility] Comment on above: Performed By: #### Clyde MEANS UMICRO #### [facility] [address] [place] [address] Dr. Josie Sanchez MANUAL DIFF REQ NO Normal [facility] Comment on above: Performed By: #### KIAN VALERIORO #### [facility] [address] [place] [address] Dr. Josie Sanchez MCH (RBC) [Entitic mass] 29.5 pg Normal 26.7-34.0 [facility] Comment on above: Performed By: #### KIAN VALERIORO #### [facility] [address] [place] [address] Dr. Josie Sanchez MCHC (RBC) [Mass/Vol] 32.8 g/dL Normal 29.9-35.2 [facility] Comment on above: Performed By: #### KIAN VALERIORO #### [facility] [address] [place] [address] Dr. Josie Sanchez MCV (RBC) [Entitic vol] 89.9 fL Normal 81.0-99.0 [facility] Comment on above: Performed By: #### KIAN VALERIORO #### [facility] [address] [place] [address] Dr. Josie Sanchez MONO # 0.3 103/ul Normal 0.3-0.8 [facility] Comment on above: Performed By: #### KIAN VALERIORO #### [facility] [address] [place] [address] Dr. Josie Sanchez Monocytes/100 WBC (Bld) 5.1 % Normal 1.7-12.0 [facility] Comment on above: Performed By: #### KIAN VALERIORO #### [facility] [address] [place] [address] Dr. Josie Sanchez NEUT # 4.8 103/ul Normal 1.4-6.5 [facility] Comment on above: Performed By: #### KIAN VALERIORO #### [facility] [address] [place] [address] Dr. Josie Sanchez Neutrophils/100 WBC (Bld) 75.4 % Critically high 43.0- 75.0 [facility] Comment on above: Performed By: #### RILEY VALERIO #### [facility] [address] [place] [address] Dr. Josie Sanchez Platelet mean volume (Bld) [Entitic vol] 9.8 fL Normal 9.5-13.5 [facility] Comment on above: Performed By: #### lCyde MEANS UMICRO #### [facility] [address] [place] [address] Dr. Josie Sanchez PLT 256 103/ul Normal 150-450 [facility] Comment on above: Performed By: #### Clyde MEANS UMICRO #### [facility] [address] [place] [address] Dr. Josie Sanchez RBC 4.65 106/ul Normal 4.20-5.40 [facility] Comment on above: Performed By: #### ROBERT VALERIOICRO #### [facility] [address] [place] [address] Dr. Josie Sanchez WBC 6.4 103/ul Normal 4.0-11.0 [facility] Comment on above: Performed By: #### Clyde MEANS UMICRO #### [facility] [address] [place] [address] Dr. Josie Sanchez FERRITINon 11-09-2022 Ferritin [Mass/Vol] 42.0 ng/mL Normal 6.2-137.0 [facility] Comment on above: Performed By: #### Clyde MEANS UMICRO #### [facility] [address] [place] [address] Dr. Josie Sanchez FREE T4on 11-09-2022 Free T4 [Mass/Vol] 0.87 ng/dL Normal 0.76-1.[address] [facility] Comment on above: Performed By: #### Clyde MEANS UMICRO #### [facility] [address] [place] [address] Dr. Josie Sanchez GLYCOHEMOGLOBIN A1Con 2022 ADA RECOMMENDATION SEE BELOW Normal [facility] Comment on above: Result Comment: ADA RECOMMENDED LIMIT 4.0 - 6.0 ADA THERAPEUTIC TARGET < 7.0 ACTION SUGGESTED > 7.0 Performed By: #### Clyde MEANS UMICRO #### [facility] [address] [place] [address] Dr. Josie Sanchez Glucose [Mass/Vol] 100 mg/dL Normal [facility] Comment on above: Performed By: #### Clyde MEANS UMICRO #### [facility] [address] [place] [address] Dr. Josie Sanchez HbA1c (Bld) [Mass fraction] 5.1 % Normal 4.5-6.2 [facility] Comment on above: Performed By: #### Clyde MEANS UMICRO #### [facility] [address] [place] [address] Dr. Josie Sanchez PREG QUANT HCGon 11-09-2022 HCG QUANT <1 Normal [facility] Comment on above: Performed By: #### Clyde MEANS UMICRO #### [facility] [address] [place] [address] Dr. Josie Sanchez HCG RANGE SEE BELOW Normal [facility] Comment on above: Result Comment: 5-50 0.2-1 WEEK 50-500 1-2 WEEKS 100-5,000 2-3 WEEKS 500-10,000 3-4 WEEKS 1,000-50,000 4-5 WEEKS 10,000-100,000 5-6 WEEKS 15,000-200,000 6-8 WEEKS 10,000-100,000 2-3 MONTHS Performed By: #### Clyde MEANS UMICRO #### [facility] [address] [place] [address] Dr. Josie Sanchez TSHon 11-09-2022 TSH 2.163 uIU/mL Normal 0.358-3.740 [facility] Comment on above: Performed By: #### Clyde MEANS UMICRO #### [facility] [address] [place] [address] Dr. Josie Sanchez PROGESTERONEon 08-29-2022 Progesterone 7.3 ng/mL Normal [facility] Comment on above: Result Comment: Foll icular phase 0.1 - 0.9 Luteal phase 1.8 - 23.9 Ovulation phase 0.1 - 12.0 First trimester 11.0 - 44.3 Second trimester 25.4 - 83.3 Third trimester 58.7 - 214.0 Postmenopausal 0.0 - 0.1 Performed By: #### P MADELINES #### [facility] [address] [place] [address] Dr. Josie Sanchez INSULINon 08-13-2022 Insulin 12.5 uIU/mL Normal 2.6-24.9 [facility] Comment on above: Performed By: #### P REGQNT #### [facility] [address] [place] [address] Dr. Josie Sanchez CBC AUTO DIFFon 08-12-2022 BASO # 0.0 103/ul Normal 0.0-0.1 [facility] Comment on above: Performed By: #### KIAN VALERIORO #### [facility] [address] [place] [address] Dr. Josie Sanchez Basophils/100 WBC (Bld) 0.2 % Normal 0.2-2.0 [facility] Comment on above: Performed By: #### KIAN VALERIORO #### [facility] [address] [place] [address] Dr. Josie Sanchez EO # 0.1 103/ul Normal 0.0-0.7 [facility] Comment on above: Performed By: #### Clyde MEANS UMICRO #### [facility] [address] [place] [address] Dr. Josie Sanchez Eosinophils/100 WBC (Bld) 0.8 % Critically low 0.9-7. 0 [facility] Comment on above: Performed By: #### ROBERT VALERIOICRO #### [facility] [address] [place] [address] Dr. Josie Sanchez Erythrocyte distribution width (RBC) [Ratio] 14.0 % Normal 11.0-15.0 [facility] Comment on above: Performed By: #### Clyde MEANS UMICRO #### [facility] [address] [place] [address] Dr. Josie Sanchez Hematocrit (Bld) [Volume fraction] 39.5 % Normal 36.0-48.0 [facility] Comment on above: Performed By: #### Clyde MEANS UMICRO #### [facility] [address] [place] [address] Dr. Josie Sanchez Hemoglobin (Bld) [Mass/Vol] 12.7 g/dL Normal 12.0-16.0 [facility] Comment on above: Performed By: #### Clyde MEANS UMICRO #### [facility] [address] [place] [address] Dr. Josie Sanchez IG # 0.02 10e3/ul Normal 0.00-0.03 [facility] Comment on above: Performed By: #### Clyde MEANS UMICRO #### [facility] [address] [place] [address] Dr. Josie Sanchez IG % 0.3 % Normal 0.0-0.5 [facility] Comment on above: Performed By: #### Clyde MEANS UMICRO #### [facility] [address] [place] [address] Dr. Josie Sanchez LYMPH # 1.6 103/ul Normal 1.2-3.8 [facility] Comment on above: Performed By: #### Clyde MEANS UMICRO #### [facility] [address] [place] [address] Dr. Josie Sanchez Lymphocytes/100 WBC (Bld) 26.9 % Normal 20.5-60.0 [facility] Comment on above: Performed By: #### Clyde MEANS UMICRO #### [facility] [address] [place] [address] Dr. Josie Sanchez MANUAL DIFF REQ NO Normal [facility] Comment on above: Performed By: #### Clyde MEANS UMICRO #### [facility] [address] [place] [address] Dr. Josie Sanchez MCH (RBC) [Entitic mass] 28.3 pg Normal 26.7-34.0 [facility] Comment on above: Performed By: #### Clyde MEANS UMICRO #### [facility] [address] [place] [address] Dr. Josie Sanchez MCHC (RBC) [Mass/Vol] 32.2 g/dL Normal 29.9-35.2 [facility] Comment on above: Performed By: #### ROBERT VALERIOICRO #### [facility] [address] [place] [address] Dr. Josie Snachez MCV (RBC) [Entitic vol] 88.0 fL Normal 81.0-99.0 [facility] Comment on above: Performed By: #### ROBERT VALERIOICRO #### [facility] [address] [place] [address] Dr. Josie Sanchez MONO # 0.4 103/ul Normal 0.3-0.8 [facility] Comment on above: Performed By: #### Clyde MEANS UMICRO #### [facility] [address] [place] [address] Dr. Josie Sanchez Monocytes/100 WBC (Bld) 7.1 % Normal 1.7-12.0 [facility] Comment on above: Performed By: #### Clyde MEANS UMICRO #### [facility] [address] [place] [address] Dr. Josie Sanchez NEUT # 3.8 103/ul Normal 1.4-6.5 [facility] Comment on above: Performed By: #### Clyde MEANS UMICRO #### [facility] [address] [place] [address] Dr. Josie Sanchez Neutrophils/100 WBC (Bld) 64.7 % Normal 43.0-75.0 [facility] Comment on above: Performed By: #### Clyde MEANS UMICRO #### [facility] [address] [place] [address] Dr. Josie Sanchez Platelet mean volume (Bld) [Entitic vol] 10.1 fL Normal 9.5-13.5 [facility] Comment on above: Performed By: #### Clyde MEANS UMICRO #### [facility] [address] [place] [address] Dr. Josie Sanchez PLT 211 103/ul Normal 150-450 [facility] Comment on above: Performed By: #### RILEY VALERIO #### [facility] [address] [place] [address] Dr. Josie Sanchez RBC 4.49 106/ul Normal 4.20-5.40 [facility] Comment on above: Performed By: #### RILEY VALERIO #### [facility] [address] [place] [address] Dr. Josie Sanchez WBC 5.9 103/ul Normal 4.0-11.0 [facility] Comment on above: Performed By: #### RILEY VALERIO #### [facility] [address] [place] [address] Dr. Josie Sanchez FREE THYROXINE INDEX T7on FTI 2.63 Normal 1.30-4.50 [facility] Comment on above: Performed By: #### RILEY VALERIO #### [facility] [address] [place] [address] Dr. Josie Sanchez T3U 35.0 % Normal 30.0-39.0 [facility] Comment on above: Performed By: #### RILEY VALERIO #### [facility] [address] [place] [address] Dr. Josie Sanchez T4 [Mass/Vol] 7.50 ug/dL Normal 4.80-13.90 [facility] Comment on above: Performed By: #### RILEY VALERIO #### [facility] [address] [place] [address] Dr. Josie Sanchez GLYCOHEMOGLOBIN A1Con 2022 ADA RECOMMENDATION SEE BELOW Normal [facility] Comment on above: Result Comment: ADA RECOMMENDED LIMIT 4.0 - 6.0 ADA THERAPEUTIC TARGET < 7.0 ACTION SUGGESTED > 7.0 Performed By: #### RILEY VALERIO #### [facility] [address] [place] [address] Dr. Josie Sanchez Glucose [Mass/Vol] 111 mg/dL Normal [facility] Comment on above: Performed By: #### RILEY VALERIO #### [facility] [address] [address] [address] Josie Sanchez HbA1c (Bld) [Mass fraction] 5.5 % Normal 4.5-6.2 [facility] Comment on above: Performed By: #### E RILEY MEANS #### [facility] [address] [address] [address] Josie Sanchez IRONon 08-12-2022 Iron [Mass/Vol] 40.0 ug/dL Critically low 50.0-170.0 [facility] Comment on above: Performed By: #### P REGQNT #### [facility] [address] [address] [address] Josie Sanchez LIPID PROFILEon 08-12-2022 CHOL-HDL RATIO NORM SEE BELOW Normal [facility] Comment on above: Result Comment: 3.3 - 4.4 LOW RISK 4.4 - 7.1 AVERAGE RISK 7.1 - 11.0 MODERATE RISK >11.0 HIGH RISK Performed By: #### P REGQNT #### [facility] [address] [address] [address] Josie Sanchez Cholesterol [Mass/Vol] 183 mg/dL Normal <=200 [facility] Comment on above: Performed By: #### P REGQNT #### [facility] [address] [place] [address] Dr. Josie Sanchez Cholesterol in HDL [Mass/Vol] 40 mg/dL Normal 40-60 [facility] Comment on above: Performed By: #### P REGQNT #### [facility] [address] [address] [address] Josie Sanchez Cholesterol in LDL [Mass/Vol] 131.0 mg/dL Normal [facility] Comment on above: Performed By: #### P REGQNT #### [facility] [address] [address] [address] Josie Sanchez Cholesterol.total/Choleste rol in HDL [Mass ratio] 4.6 {ratio} Normal [facility] Comment on above: Performed By: #### P REGQNT #### [facility] [address] [address] [address] Josie Sanchez HDL NORMAL > or = 60 mg/dl - LOW CARDIOVASCULAR RISK <40 mg/dl - HIGH CARDIOVASCULAR RISK Normal [facility] Comment on above: Performed By: #### P REGQNT #### [facility] [address] [place] [address] Dr. Josie Sanchez LDL CALC NORMAL SEE BELOW Normal [facility] Comment on above: Result Comment: <100 mg/dl OPTIMAL 100 - 129 mg/dl NEAR OR ABOVE OPTIMAL 130 - 159 mg/dl BORDERLINE HIGH 160 - 189 mg/dl HIGH >190 mg/dl VERY HIGH Performed By: #### P REGQNT #### [facility] [address] [address] [address] Josie Sanchez Triglyceride [Mass/Vol] 60 mg/dL Normal <=150 T [facility] Comment on above: Performed By: #### P REGQNT #### [facility] [address] [place] [address] Dr. Josie Sanchez VLDL CALC 12.0 mg/dL Normal [facility] Comment on above: Performed By: #### P REGQNT #### [facility] [address] [place] [address] Dr. Josie Sanchez PROF 14(COMP METB)on 023 Albumin [Mass/Vol] 3.7 g/dL Normal 3.4-5.0 [facility] Comment on above: Performed By: #### RILEY VALERIO #### [facility] [address] [place] [address] Dr. Josie Sanchez Albumin/Globulin [Mass ratio] 0.9 {ratio} Normal [facility] Comment on above: Performed By: #### KIAN VALERIORO #### [facility] [address] [place] [address] Dr. Josie Sanchez ALP [Catalytic activity/Vol] 131 U/L Critically high 46-116 [facility] Comment on above: Performed By: #### KIAN VALERIORO #### [facility] [address] [place] [address] Dr. Josie Sanchez ALT [Catalytic activity/Vol] 23 U/L Normal 14-59 [facility] Comment on above: Performed By: #### RILEY VALERIO #### [facility] [address] [place] [address] Dr. Josie Sanchez Anion gap [Moles/Vol] 10.5 mmol/L Normal [facility] Comment on above: Performed By: #### RILEY VALERIO #### [facility] [address] [place] [address] Dr. Josie Sanchez AST [Catalytic activity/Vol] 18 U/L Normal 15-37 [facility] Comment on above: Performed By: #### RILEY VALERIO #### [facility] [address] [place] [address] Dr. Josie Sanchez Bilirubin [Mass/Vol] 0.7 mg/dL Normal 0.2-1.0 [facility] Comment on above: Performed By: #### RILEY VALERIO #### [facility] [address] [place] [address] Dr. Josie Sanchez Calcium [Mass/Vol] 8.7 mg/dL Normal 8.5-10.1 [facility] Comment on above: Performed By: #### RILEY VALERIO #### [facility] [address] [place] [address] Dr. Josie Sanchez Chloride [Moles/Vol] 103 mmol/L Normal 98-107 [facility] Comment on above: Performed By: #### RILEY VALERIO #### [facility] [address] [place] [address] Dr. Josie Sanchez CO2 [Moles/Vol] 30.1 mmol/L Normal 21.0-32.0 [facility] Comment on above: Performed By: #### RILEY VALERIO #### [facility] [address] [place] [address] Dr. Josie Sanchez Creatinine [Mass/Vol] 0.66 mg/dL Normal 0.55-1.02 [facility] Comment on above: Performed By: #### KIAN VALERIORO #### [facility] [address] [place] [address] Dr. Josie Sanchez EGFR-AF CITIZEN [place] >60 Normal >=60 [facility] Comment on above: Performed By: #### RILEY VALERIO #### [facility] [address] [place] [address] Dr. Josie Sanchez EGFR-NON AF CITIZEN OF [place] >60 Normal >=60 [facility] Comment on above: Performed By: #### KIAN VALERIORO #### [facility] [address] [place] [address] Dr. Josie Sanchez Globulin (S) [Mass/Vol] 4.3 g/dL Normal T [facility] Comment on above: Performed By: #### RILEY VALERIO #### [facility] [address] [place] [address] Dr. Josie Sanchez Glucose [Mass/Vol] 90 mg/dL Normal 74-[address] [facility] Comment on above: Performed By: #### RILEY VALERIO #### [facility] [address] [place] [address] Dr. Josie Sanchez Potassium [Moles/Vol] 3.6 mmol/L Normal 3.5-5.1 [facility] Comment on above: Performed By: #### KIAN VALERIORO #### [facility] [address] [place] [address] Dr. Josie Sanchez Protein [Mass/Vol] 8.0 g/dL Normal 6.4-8.[address] [facility] Comment on above: Performed By: #### KIAN VALERIORO #### [facility] [address] [place] [address] Dr. Josie Sanchez Sodium [Moles/Vol] 140 mmol/L Normal 136-[address] [facility] Comment on above: Performed By: #### KIAN VALERIORO #### [facility] [address] [place] [address] Dr. Josie Sanchez Urea nitrogen [Mass/Vol] 12.0 mg/dL Normal 7.0-18.0 [facility] Comment on above: Performed By: #### RILEY VALERIO #### [facility] [address] [place] [address] Dr. Josie Sanchez Urea nitrogen/Creatinine [Mass ratio] 18.2 mg/mg Normal [facility] Comment on above: Performed By: #### RILEY VALERIO #### [facility] [address] [place] [address] Dr. Josie Sanchez TSHon 08-12-2022 TSH 3.070 uIU/mL Normal 0.358-3.740 [facility] Comment on above: Performed By: #### P REGQNT #### [facility] [address] [place] [address] Dr. Josie Sanchez PREG QUANT HCGon 06-22-2022 HCG QUANT 1 mIU/mL Normal [facility] Comment on above: Performed By: #### KIAN VALERIORO #### [facility] [address] [place] [address] Dr. Josie Sanchez HCG RANGE SEE BELOW Normal [facility] Comment on above: Result Comment: 5-50 0.2-1 WEEK 50-500 1-2 WEEKS 100-5,000 2-3 WEEKS 500-10,000 3-4 WEEKS 1,000-50,000 4-5 WEEKS 10,000-100,000 5-6 WEEKS 15,000-200,000 6-8 WEEKS 10,000-100,000 2-3 MONTHS Performed By: #### RILEY VALERIO #### [facility] [address] [place] [address] Dr. Josie Sanchez PREG QUANT HCGon 05-20-2022 HCG QUANT 6 mIU/mL Normal [facility] Comment on above: Performed By: #### P REGQNT #### [facility] [address] [place] [address] Dr. Josie Sanchez HCG RANGE SEE BELOW Normal [facility] Comment on above: Result Comment: 5-50 0.2-1 WEEK 50-500 1-2 WEEKS 100-5,000 2-3 WEEKS 500-10,000 3-4 WEEKS 1,000-50,000 4-5 WEEKS 10,000-100,000 5-6 WEEKS 15,000-200,000 6-8 WEEKS 10,000-100,000 2-3 MONTHS Performed By: #### P REGQNT #### [facility] [address] [place] [address] Dr. Josie Sanchez PREG QUANT HCGon 05-14-2022 HCG QUANT 26 mIU/mL Normal [facility] Comment on above: Performed By: #### P REGQNT #### [facility] [address] [place] [address] Dr. Josie Sanchez HCG RANGE SEE BELOW Normal [facility] Comment on above: Result Comment: 5-50 0.2-1 WEEK 50-500 1-2 WEEKS 100-5,000 2-3 WEEKS 500-10,000 3-4 WEEKS 1,000-50,000 4-5 WEEKS 10,000-100,000 5-6 WEEKS 15,000-200,000 6-8 WEEKS 10,000-100,000 2-3 MONTHS Performed By: #### P REGQNT #### [facility] [address] [place] [address] Dr. Josie Sanchez CBC AUTO DIFFon 05-08-2022 BASO # 0.0 103/ul Normal 0.0-0.1 [facility] Comment on above: Performed By: #### RILEY VALERIO #### [facility] [address] [place] [address] Dr. Josie Sanchez Basophils/100 WBC (Bld) 0.2 % Normal 0.2-2.0 [facility] Comment on above: Performed By: #### RILEY VALERIO #### [facility] [address] [place] [address] Dr. Josie Sanchez EO # 0.0 103/ul Normal 0.0-0.7 [facility] Comment on above: Performed By: #### RILEY VALERIO #### [facility] [address] [place] [address] Dr. Josie Sanchez Eosinophils/100 WBC (Bld) 0.5 % Critically low 0.9-7. 0 [facility] Comment on above: Performed By: #### KIAN VALERIORO #### [facility] [address] [place] [address] Dr. Josei Sanchez Erythrocyte distribution width (RBC) [Ratio] 12.8 % Normal 11.0-15.0 [facility] Comment on above: Performed By: #### KIAN VALERIORO #### [facility] [address] [place] [address] Dr. Josie Sanchez Hematocrit (Bld) [Volume fraction] 41.0 % Normal 36.0-48.0 [facility] Comment on above: Performed By: #### KIAN VALERIORO #### [facility] [address] [place] [address] Dr. Josie Sanchez Hemoglobin (Bld) [Mass/Vol] 13.4 g/dL Normal 12.0-16.0 [facility] Comment on above: Performed By: #### KIAN VALERIORO #### [facility] [address] [place] [address] Dr. Josie Sanchez IG # 0.02 10e3/ul Normal 0.00-0.03 [facility] Comment on above: Performed By: #### KIAN VALERIORO #### [facility] [address] [place] [address] Dr. Josie Sanchez IG % 0.3 % Normal 0.0-0.5 [facility] Comment on above: Performed By: #### KIAN VALERIORO #### [facility] [address] [place] [address] Dr. Josie Sanchez LYMPH # 1.6 103/ul Normal 1.2-3.8 [facility] Comment on above: Performed By: #### KIAN VALERIORO #### [facility] [address] [place] [address] Dr. Josie Sanchez Lymphocytes/100 WBC (Bld) 27.1 % Normal 20.5-60.0 [facility] Comment on above: Performed By: #### KIAN VALERIORO #### [facility] [address] [place] [address] Dr. Josie Sanchez MANUAL DIFF REQ NO Normal [facility] Comment on above: Performed By: #### Clyde MEANS UMICRO #### [facility] [address] [place] [address] Dr. Josie Sanchez MCH (RBC) [Entitic mass] 29.3 pg Normal 26.7-34.0 [facility] Comment on above: Performed By: #### Clyde MEANS UMICRO #### [facility] [address] [place] [address] Dr. Josie Sanchez MCHC (RBC) [Mass/Vol] 32.7 g/dL Normal 29.9-35.2 [facility] Comment on above: Performed By: #### Clyde MEANS UMICRO #### [facility] [address] [place] [address] Dr. Josie Sanchez MCV (RBC) [Entitic vol] 89.5 fL Normal 81.0-99.0 [facility] Comment on above: Performed By: #### Clyde MEANS UMICRO #### [facility] [address] [place] [address] Dr. Josie Sanchez MONO # 0.5 103/ul Normal 0.3-0.8 [facility] Comment on above: Performed By: #### Clyde MEANS UMICRO #### [facility] [address] [place] [address] Dr. Josie Sanchez Monocytes/100 WBC (Bld) 8.6 % Normal 1.7-12.0 [facility] Comment on above: Performed By: #### Clyde MEANS UMICRO #### [facility] [address] [place] [address] Dr. Josie Sanchez NEUT # 3.7 103/ul Normal 1.4-6.5 [facility] Comment on above: Performed By: #### Clyde MEANS UMICRO #### [facility] [address] [place] [address] Dr. Josie Sanchez Neutrophils/100 WBC (Bld) 63.3 % Normal 43.0-75.0 [facility] Comment on above: Performed By: #### Clyde MEANS UMICRO #### [facility] [address] [address] [address] Josie Sanchez Platelet mean volume (Bld) [Entitic vol] 9.8 fL Normal 9.5-13.5 [facility] Comment on above: Performed By: #### Clyde MEANS, UMICRO #### [facility] [address] [address] [address] Josie Sanchez PLT 238 103/ul Normal 150-450 [facility] Comment on above: Performed By: #### Clyde MEANS, UMICRO #### [facility] [address] [place] [address] Dr. Josie Sanchez RBC 4.58 106/ul Normal 4.20-5.40 [facility] Comment on above: Performed By: #### Clyde MEANS, ICRO #### [facility] [address] [place] [address] Dr. Josie Sanchez WBC 5.8 103/ul Normal 4.0-11.0 [facility] Comment on above: Performed By: #### Clyde MEANS, ICRO #### [facility] [address] [place] [address] Dr. Josie Sanchez PREG QUANT HCGon 05-08-2022 HCG QUANT 2335 mIU/mL Normal [facility] Comment on above: Performed By: #### P REGQNT #### [facility] [address] [place] [address] Dr. Josie Sanchez HCG RANGE SEE BELOW Normal [facility] Comment on above: Result Comment: 5-50 0.2-1 WEEK 50-500 1-2 WEEKS 100-5,000 2-3 WEEKS 500-10,000 3-4 WEEKS 1,000-50,000 4-5 WEEKS 10,000-100,000 5-6 WEEKS 15,000-200,000 6-8 WEEKS 10,000-100,000 2-3 MONTHS Performed By: #### P REGQNT #### [facility] [address] [place] [address] Dr. Josie Sanchez CBC AUTO DIFFon 05-07-2022 BASO # 0.0 103/ul Normal 0.0-0.1 [facility] Comment on above: Performed By: #### RILEY VALERIO #### [facility] [address] [place] [address] Dr. Josie Sanchez Basophils/100 WBC (Bld) 0.2 % Normal 0.2-2.0 [facility] Comment on above: Performed By: #### KIAN VALERIORO #### [facility] [address] [place] [address] Dr. Josie Sanchez EO # 0.0 103/ul Normal 0.0-0.7 [facility] Comment on above: Performed By: #### RILEY VALERIO #### [facility] [address] [place] [address] Dr. Josie Sanchez Eosinophils/100 WBC (Bld) 0.3 % Critically low 0.9-7. 0 [facility] Comment on above: Performed By: #### KIAN VALERIORO #### [facility] [address] [place] [address] Dr. Josie Sanchez Erythrocyte distribution width (RBC) [Ratio] 12.8 % Normal 11.0-15.0 [facility] Comment on above: Performed By: #### RILEY VALERIO #### [facility] [address] [place] [address] Dr. Josie Sanchez Hematocrit (Bld) [Volume fraction] 41.2 % Normal 36.0-48.0 [facility] Comment on above: Performed By: #### KIAN VALERIORO #### [facility] [address] [place] [address] Dr. Josie Sanchez Hemoglobin (Bld) [Mass/Vol] 13.3 g/dL Normal 12.0-16.0 [facility] Comment on above: Performed By: #### KIAN VALERIORO #### [facility] [address] [place] [address] Dr. Josie Sanchez IG # 0.02 10e3/ul Normal 0.00-0.03 [facility] Comment on above: Performed By: #### E RUR, UMICRO #### [facility] [address] [place] [address] Dr. Josie Sanchez IG % 0.3 % Normal 0.0-0.5 [facility] Comment on above: Performed By: #### E YOSELINR, UMICRO #### [facility] [address] [place] [address] Dr. Josie Sanchez LYMPH # 1.0 103/ul Critically low 1.2-3.8 [facility] Comment on above: Performed By: #### E MIGUELANGEL, UMICRO #### [facility] [address] [place] [address] Dr. Josie Sanchez Lymphocytes/100 WBC (Bld) 15.5 % Critically low 20.5-6 0.0 [facility] Comment on above: Performed By: #### Clyde MEANS UMICRO #### [facility] [address] [place] [address] Dr. Josie Sanchez MANUAL DIFF REQ NO Normal [facility] Comment on above: Performed By: #### Clyde MEANS UMICRO #### [facility] [address] [place] [address] Dr. Josie Sanchez MCH (RBC) [Entitic mass] 28.9 pg Normal 26.7-34.0 [facility] Comment on above: Performed By: #### Clyde MEANS UMICRO #### [facility] [address] [place] [address] Dr. Josie Sanchez MCHC (RBC) [Mass/Vol] 32.3 g/dL Normal 29.9-35.2 [facility] Comment on above: Performed By: #### E RUJolie, UMICRO #### [facility] [address] [place] [address] Dr. Josie Sanchez MCV (RBC) [Entitic vol] 89.6 fL Normal 81.0-99.0 [facility] Comment on above: Performed By: #### E MIGUELANGEL, UMICRO #### [facility] [address] [place] [address] Dr. Josie Sanchez MONO # 0.4 103/ul Normal 0.3-0.8 [facility] Comment on above: Performed By: #### RILEY VALERIO #### [facility] [address] [place] [address] Dr. Josie Sanchez Monocytes/100 WBC (Bld) 6.2 % Normal 1.7-12.0 [facility] Comment on above: Performed By: #### KIAN VALERIORO #### [facility] [address] [place] [address] Dr. Josie Sanchez NEUT # 5.0 103/ul Normal 1.4-6.5 [facility] Comment on above: Performed By: #### KIAN VALERIORO #### [facility] [address] [place] [address] Dr. Josie Sanchez Neutrophils/100 WBC (Bld) 77.5 % Critically high 43.0- 75.0 [facility] Comment on above: Performed By: #### KIAN VALERIORO #### [facility] [address] [place] [address] Dr. Josie Sanchez Platelet mean volume (Bld) [Entitic vol] 10.2 fL Normal 9.5-13.5 [facility] Comment on above: Performed By: #### KIAN VALERIORO #### [facility] [address] [place] [address] Dr. Josie Sanchez PLT 237 103/ul Normal 150-450 [facility] Comment on above: Performed By: #### KIAN VALERIORO #### [facility] [address] [place] [address] Dr. Josie Sanchez RBC 4.60 106/ul Normal 4.20-5.40 [facility] Comment on above: Performed By: #### KIAN VALERIORO #### [facility] [address] [place] [address] Dr. Josie Sanchez WBC 6.5 103/ul Normal 4.0-11.0 [facility] Comment on above: Performed By: #### KIAN VALERIORO #### [facility] [address] [place] [address] Dr. Josie Sanchez Covid-19 PCR (CVDTB)on 04-10 SARS-CoV-2 (COVID-19) RNA ALEXA+probe Ql (Unsp spec) Not detected Normal NOT DETECTED [facility] Comment on above: Result Comment: This test is not yet approved or cleared by the [place] FDA. When there are no FDA-approved or cleared tests available, and other criteria are met, FDA can make tests available under an emergency access mechanism called an Emergency Use Authorization (EUA). The EUA for this test is supported by the [employer] Tender of Health and Human Service's (HHS's) declaration [...] SARS-CoV-2. Performed By: #### RILEY VALERIO #### [facility] [address] [place] [address] Dr. Josie Sanchez PREG QUANT HCGon 05-07-2022 HCG QUANT 2745 mIU/mL Normal [facility] Comment on above: Performed By: #### RILEY VALERIO #### [facility] [address] [place] [address] Dr. Josie Sanchez HCG RANGE SEE BELOW Normal [facility] Comment on above: Result Comment: 5-50 0.2-1 WEEK 50-500 1-2 WEEKS 100-5,000 2-3 WEEKS 500-10,000 3-4 WEEKS 1,000-50,000 4-5 WEEKS 10,000-100,000 5-6 WEEKS 15,000-200,000 6-8 WEEKS 10,000-100,000 2-3 MONTHS Performed By: #### RILEY VALERIO #### [facility] [address] [place] [address] Dr. Josie Sanchez US PREG TVon 05-05-2022 [...] by: PEREZ DURBIN Date: 2022-05-05 14:42 Normal [facility] ER URINE PROFILEon 2 Bilirubin Ql (U) Negative Normal NEGATIVE [facility] Comment on above: Performed By: #### RILEY VALERIO #### [facility] [address] [place] [address] Dr. Josie Sanchez Clarity (U) CLEAR Normal CLEAR [facility] Comment on above: Performed By: #### RILEY VALERIO #### [facility] [facility] [address] [place] [address] Dr. Josie Sanchez Color (U) YELLOW Normal YELLOW [facility] Comment on above: Performed By: #### RILEY VALERIO #### [facility] [address] [place] [address] Dr. Josie WU A micrscopic examination will be performed if indicated. Normal [facility] Comment on above: Performed By: #### RILEY VALERIO #### [facility] [address] [place] [address] Dr. Josie Sanchez Glucose Ql (U) Negative Normal NEGATIVE [facility] Comment on above: Performed By: #### ROBERT VALERIOICRO #### [facility] [address] [address] [address] Josie Sanchez Hemoglobin Ql (U) SMALL Abnormal NEGATIVE [facility] Comment on above: Performed By: #### Clyde MEANS UMICRO #### [facility] [address] [place] [address] Dr. Josie Sanchez Ketones Ql (U) 15 mg/dl Abnormal NEGATIVE [facility] Comment on above: Performed By: #### ROBERT VALERIOICRO #### [facility] [address] [place] [address] Dr. Josie Sanchez LEUKOCYTES Negative Normal NEGATIVE [facility] Comment on above: Performed By: #### Clyde MEANS UMICRO #### [facility] [address] [place] [address] Dr. Josie Sanchez Nitrite Ql (U) Negative Normal NEGATIVE [facility] Comment on above: Performed By: #### KIAN VALERIORO #### [facility] [address] [place] [address] Dr. Josie Sanchez pH (U) 6.0 [pH] Normal 5-9 [facility] Comment on above: Performed By: #### KIAN VALERIORO #### [facility] [address] [place] [address] Dr. Josie Sanchez SPEC GRAVITY 1.020 Normal 1.005-<=1.02 5 [facility] Comment on above: Performed By: #### KIAN VALERIORO #### [facility] [address] [place] [address] Dr. Josie Sanchez UA PROTEIN Negative Normal NEGATIVE/ TRACE [facility] Comment on above: Performed By: #### KIAN VALERIORO #### [facility] [address] [place] [address] Dr. Josie Sanchez UR MICRO IND INDICATED Normal [facility] Comment on above: Performed By: #### KIAN VALERIORO #### [facility] [address] [place] [address] Dr. Josie Sanchez Urobilinogen Qn (U) 0.2 {Fabricio'U}/dL Normal 0.2 - 1. 0 [facility] Comment on above: Performed By: #### KIAN VALERIORO #### [facility] [address] [place] [address] Dr. Josie Sanchez URINE MICROSCOPIC ONLYon BACTERIA NONE SEEN Normal NONE SEEN [facility] Comment on above: Performed By: #### Clyde MEANS UMICRO #### [facility] [address] [place] [address] Dr. Josie Sanchez Bacteria identified Cx Nom (U) NOT INDICATED Normal [facility] Comment on above: Performed By: #### Clyde MEANS UMICRO #### [facility] [address] [place] [address] Dr. Josie Sanchez CAST NONE SEEN Normal NONE SEEN [facility] Comment on above: Performed By: #### Clyde MEANS UMICRO #### [facility] [address] [place] [address] Dr. Josie Sanchez Crystals LM Nom (Urine sed) NONE SEEN Normal NONE SEEN [facility] Comment on above: Performed By: #### Clyde MEANS UMICRO #### [facility] [address] [place] [address] Dr. Josie Sanchez Epithelial cells LM Ql (Urine sed) NONE SEEN Normal NONE SEEN /RARE [facility] Comment on above: Performed By: #### Clyde MEANS UMICRO #### [facility] [address] [place] [address] Dr. Josie Sanchez MUCOUS MODERATE Abnormal NONE SEEN [facility] Comment on above: Performed By: #### Clyde MEANS UMICRO #### [facility] [address] [place] [address] Dr. Josie Sanchez RBC 0-2 Normal 0-2 [facility] Comment on above: Performed By: #### Clyde MEANS UMICRO #### [facility] [address] [place] [address] Dr. Josie Sanchez WBC NONE SEEN Normal NONE SEEN [facility] Comment on above: Performed By: #### RILEY VALERIO #### [facility] [address] [place] [address] Dr. Josie Sanchez PREG QUANT HCGon 04-20-2022 HCG QUANT 56135 mIU/mL Normal [facility] Comment on above: Performed By: #### KIAN VALERIORO #### [facility] [address] [place] [address] Dr. Josie Sanchez HCG RANGE SEE BELOW Normal [facility] Comment on above: Result Comment: 5-50 0.2-1 WEEK 50-500 1-2 WEEKS 100-5,000 2-3 WEEKS 500-10,000 3-4 WEEKS 1,000-50,000 4-5 WEEKS 10,000-100,000 5-6 WEEKS 15,000-200,000 6-8 WEEKS 10,000-100,000 2-3 MONTHS Performed By: #### KIAN VALERIORO #### [facility] [address] [place] [address] Dr. Josie Sanchez HCG-BETA SUBUNIT QUANTon hCG,Beta Subunit,Qnt,Serum <1 Normal [facility] Comment on above: Result Comment: Fema le (Non-) 0 - 5 (Postmenopausal) 0 - 8 . Female () Weeks of Gestation 3 6 - 71 4 10 - 750 5 217 - 7138 6 158 - 26737 7 [phone] 8 15026 -037400 9 44475 -[phone] 10 22646 -838173 12 08029 -757365 14 10316 - 05199 15 90689 - 07934 16 8238 - 78122 17 8380 - 34866 18 4424 - 63469 Regina ECLIA methodology Performed By: #### KIAN VALERIORO #### [facility] [address] [place] [address] Dr. Josie Sanchez CBC AUTO DIFFon 02-18-2022 BASO # 0.0 103/ul Normal 0.0-0.1 [facility] Comment on above: Performed By: #### Selma BC #### [facility] [address] [place] [address] Dr. Josie Sanchez Basophils/100 WBC (Bld) 0.2 % Normal 0.2-2.0 [facility] Comment on above: Performed By: #### C BC #### [facility] [address] [place] [address] Dr. Josie Sanchez EO # 0.1 103/ul Normal 0.0-0.7 [facility] Comment on above: Performed By: #### C BC #### [facility] [address] [place] [address] Dr. Josie Sanchez Eosinophils/100 WBC (Bld) 0.8 % Critically low 0.9-7. 0 [facility] Comment on above: Performed By: #### C BC #### [facility] [address] [place] [address] Dr. Josie Sanchez Erythrocyte distribution width (RBC) [Ratio] 12.5 % Normal 11.0-15.0 [facility] Comment on above: Performed By: #### C BC #### [facility] [address] [place] [address] Dr. Josie Sanchez Hematocrit (Bld) [Volume fraction] 39.5 % Normal 36.0-48.0 [facility] Comment on above: Performed By: #### C BC #### [facility] [address] [place] [address] Dr. Josie Sanchez Hemoglobin (Bld) [Mass/Vol] 13.0 g/dL Normal 12.0-16.0 [facility] Comment on above: Performed By: #### C BC #### [facility] [address] [place] [address] Dr. Josie Sanchez IG # 0.02 10e3/ul Normal 0.00-0.03 [facility] Comment on above: Performed By: #### C BC #### [facility] [address] [place] [address] Dr. Josie Sanchez IG % 0.3 % Normal 0.0-0.5 [facility] Comment on above: Performed By: #### C BC #### [facility] [address] [place] [address] Dr. Josie Sanchez LYMPH # 1.5 103/ul Normal 1.2-3.8 [facility] Comment on above: Performed By: #### C BC #### [facility] [address] [place] [address] Dr. Josie Sanchez Lymphocytes/100 WBC (Bld) 22.9 % Normal 20.5-60.0 [facility] Comment on above: Performed By: #### C BC #### [facility] [address] [place] [address] Dr. Josie Sanchez MANUAL DIFF REQ NO Normal [facility] Comment on above: Performed By: #### C BC #### [facility] [address] [place] [address] Dr. Josie Sanchez MCH (RBC) [Entitic mass] 30.3 pg Normal 26.7-34.0 [facility] Comment on above: Performed By: #### C BC #### [facility] [address] [place] [address] Dr. Josie Sanchez MCHC (RBC) [Mass/Vol] 32.9 g/dL Normal 29.9-35.2 [facility] Comment on above: Performed By: #### C BC #### [facility] [address] [place] [address] Dr. Josie Sanchez MCV (RBC) [Entitic vol] 92.1 fL Normal 81.0-99.0 [facility] Comment on above: Performed By: #### C BC #### [facility] [address] [place] [address] Dr. Josie Sanchez MONO # 0.4 103/ul Normal 0.3-0.8 [facility] Comment on above: Performed By: #### C BC #### [facility] [address] [place] [address] Dr. Josie Sanchez Monocytes/100 WBC (Bld) 5.7 % Normal 1.7-12.0 [facility] Comment on above: Performed By: #### C BC #### [facility] [address] [place] [address] Dr. Josie Sanchez NEUT # 4.6 103/ul Normal 1.4-6.5 [facility] Comment on above: Performed By: #### C BC #### [facility] [address] [place] [address] Dr. Josie Sanchez Neutrophils/100 WBC (Bld) 70.1 % Normal 43.0-75.0 [facility] Comment on above: Performed By: #### C BC #### [facility] [address] [place] [address] Dr. Josie Sanchez Platelet mean volume (Bld) [Entitic vol] 10.0 fL Normal 9.5-13.5 [facility] Comment on above: Performed By: #### C BC #### [facility] [address] [place] [address] Dr. Josie Sanchez PLT 242 103/ul Normal 150-450 [facility] Comment on above: Performed By: #### C BC #### [facility] [address] [place] [address] Dr. Josie Sanchez RBC 4.29 106/ul Normal 4.20-5.40 [facility] Comment on above: Performed By: #### C BC #### [facility] [address] [place] [address] Dr. Josie Sanchez WBC 6.5 103/ul Normal 4.0-11.0 [facility] Comment on above: Performed By: #### C BC #### [facility] [address] [place] [address] Dr. Josie Sanchez LIPID PROFILEon 02-18-2022 CHOL-HDL RATIO NORM SEE BELOW Normal [facility] Comment on above: Result Comment: 3.3 - 4.4 LOW RISK 4.4 - 7.1 AVERAGE RISK 7.1 - 11.0 MODERATE RISK >11.0 HIGH RISK Performed By: #### L IPID, TSH #### [facility] [address] [place] [address] Dr. Josie Sanchez Cholesterol [Mass/Vol] 182 mg/dL Normal <=200 [facility] Comment on above: Performed By: #### L IPID, TSH #### [facility] [address] [place] [address] Dr. Josie Sanchez Cholesterol in HDL [Mass/Vol] 40 mg/dL Normal 40-60 [facility] Comment on above: Performed By: #### L IPID, TSH #### [facility] [address] [address] [address] Josie Sanchez Cholesterol in LDL [Mass/Vol] 122.4 mg/dL Normal [facility] Comment on above: Performed By: #### L IPID, TSH #### [facility] [address] [address] [address] Josie Sanchez Cholesterol.total/Choleste rol in HDL [Mass ratio] 4.6 {ratio} Normal [facility] Comment on above: Performed By: #### L IPID, TSH #### [facility] [address] [address] [address] Josie Sanchez HDL NORMAL > or = 60 mg/dl - LOW CARDIOVASCULAR RISK <40 mg/dl - HIGH CARDIOVASCULAR RISK Normal [facility] Comment on above: Performed By: #### L IPID, TSH #### [facility] [address] [address] [address] Josie Sanchez LDL CALC NORMAL SEE BELOW Normal [facility] Comment on above: Result Comment: <100 mg/dl OPTIMAL 100 - 129 mg/dl NEAR OR ABOVE OPTIMAL 130 - 159 mg/dl BORDERLINE HIGH 160 - 189 mg/dl HIGH >190 mg/dl VERY HIGH Performed By: #### L IPID, TSH #### [facility] [address] [address] [address] Josie Sanchez Triglyceride [Mass/Vol] 98 mg/dL Normal <=150 T [facility] Comment on above: Performed By: #### L IPID, TSH #### [facility] [address] [address] [address] Josie Sanchez VLDL CALC 19.6 mg/dL Normal [facility] Comment on above: Performed By: #### L IPID, TSH #### [facility] [address] [address] [address] Josie Sanchez PROTIMEon 02-18-2022 INR Coag (PPP) [Relative time] 1.10 {INR} Normal [facility] Comment on above: Performed By: #### P REGQNT #### [facility] [address] [place] [address] Dr. Josie Sanchez INR GUIDELINES SEE BELOW Normal [facility] Comment on above: Result Comment: PAULINA RED INR: 2.0 - 3.0 CONDITIONS NOT LISTED BELOW 2.5 - 3.5 FOR PROSTHETIC HEART VALVE REPLACEMENT 2.5 - 3.5 RECURRENT THROMBOSIS Performed By: #### P REGQNT #### [facility] [address] [place] [address] Dr. Josie Sanchez PT Coag (PPP) [Time] 11.8 s Critically high 9.0-11.6 [facility] Comment on above: Performed By: #### P REGQNT #### [facility] [address] [place] [address] Dr. Josie Sanchez PTTon 02-18-2022 aPTT Coag (Bld) [Time] 29.8 s Normal 22.3-36.2 [facility] Comment on above: Performed By: #### P REGQNT #### [facility] [address] [place] [address] Dr. Josie Sanchez TSHon 02-18-2022 TSH 3.410 uIU/mL Normal 0.358-3.740 [facility] Comment on above: Performed By: #### L IPID, TSH #### [facility] [address] [place] [address] Dr. Josie Sanchez US PELVIS AND TRANSVAGon [...] left ovarian simple cyst Electronically authenticated by: PREEZ DURBIN Date: 2022-02-18 18:56 Normal [facility] Nursing Note - Woundon 08-15 Nursing Note - Wound [id number] 86469#3.00CD:127 Normal [facility] Coding Summary.on 08-08-2020 Coding Summary. CODING DATE: 08/08/2020 FINAL [facility] STATUS: Home (Routine DC) PAYOR: [...] Jeannie Nur Date Saved: 08/08/2020 10:31 am [facility] Formson 08-08-2020 Forms [id number] 0459#1.00CD:127 Normal [facility] Home Health Recordson 2019 Home Health Records [id number] 3EFD#1.00CD:127 [facility] Ambulatory Clinical Summaryo n 07-26-2020 Ambulatory Clinical Summary {[id number] -[id number]}CD:61 [id number] [facility] Home Health Recordson 2019 Home Health Records [id number] 0EC7#1.00CD:127 [facility] Progress Note - Woundon 07-09 Progress Note - Wound [id number] 60404#2.00CD:127 [facility] Consent for Treatmenton 07-09 Consent for Treatment [id number] AFAA#1.00CD:127 [facility] Multi-Wound Charton 07-25-20 20 Multi-Wound Chart [id number] 50719#1.00CD:127 [facility] Nursing Assessment - [place]ound[place] 07-25-2020 Nursing Assessment - Wound [id number] 7.202 [id number] 70569#1.00CD:127 [facility] Physician Orderon 07-25-2020 Physician Order [id number] 92883#1.00CD:127 [facility] Home Health [facility] 2019 Home Health Records [id number] 3741#1.00CD:127 [facility] Health Record[facility] 2019 Home Health Records [id number] 3554#1.00CD:127 [facility] Coding Summary.on 07-12-2020 Coding Summary. 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 However, the narrative phrase printed from the coding software may appear abbreviated, or result in slightly different terminology. Coded By: Aicha Bledsoe CphT Date Saved: 07/12/2020 03:05 pm [facility] Coding Summary. 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 However, the narrative phrase printed from the coding software may appear abbreviated, or result in slightly different terminology. Coded By: Aicha Bledsoe CphT Date Saved: 07/12/2020 03:03 pm [facility] Multi-Wound Charton 07-12-20 20 Multi-Wound Chart [id number] 95427#1.00CD:127 [facility] Nursing Assessment - [place]ound[place] 07-12-2020 Nursing Assessment - Wound [id number] 7. [id number] 87574#1.00CD:127 [facility] Nursing Note - [place]ound[place] 07-12 Nursing Note - Wound [id number] 21030#1.00CD:127 [facility] Consent for Procedure/Surger yon 07-11-2020 Consent for Procedure/Surgery [id number] 41552#1.00CD:127 [facility] Consent for Treatmenton Consent for Treatment [id number] B36A#1.00CD:127 [facility] Home Health Recordson 2019 Home Health Records [id number] D3A1#1.00CD:127 [facility] Home Health Records [id number]#1.00CD:127 [facility] Physician Orderon 07-11-2020 Physician Order [id number] 53400#1.00CD:127 [facility] Progress Note - [place] Progress Note - Wound [id number] 58791#1.00CD:127 [facility] Nursing Note - [place] 07-02 Nursing Note - Wound [id number] 28274#3.00CD:127 [facility] Consent for Procedure/Surger yon 06-28-2020 Consent for Procedure/Surgery [id number]. [id number] 0200#1.00CD:127 [facility] Consent to Photographon 06-10 Consent to Photograph [id number]. [id number] 0326#1.00CD:127 [facility] HIPAA Privacy Documentson HIPAA Privacy Documents [id number] 0158#1.00CD:127 [facility] Nursing Note - [place]ound[place] 06-28 Nursing Note - Wound 149.45.122.6. [id number] 0289#1.00CD:127 [facility] Nursing Note - Wound 149.45.122.6. [id number] 0217#1.00CD:127 [facility] Consent for Treatmenton 06-09 Consent for Treatment [id number] EEDA#1.00CD:127 [facility] Multi-Wound Charton 06-27-20 20 Multi-Wound Chart [id number] 70580#1.00CD:127 [facility] Nursing Assessment - [place] 06-27-2020 Nursing Assessment - Wound [id number] 7.202 [id number] 02696#1.00CD:127 [facility] Physician Orderon 06-27-2020 Physician Order [id number] 23460#2.00CD:127 [facility] Progress Note - Woundon 06-09 Progress Note - Wound [id number] 26513#1.00CD:127 [facility] HIPAA Privacy Documentson HIPAA Privacy Documents [id number] 02 [id number]#1.00CD:127 [facility] Outside Records Officeon Outside Records Office [id number] 2 [id number] 526704#1.00CD:127 [facility] Vital Signs Date Time Vital Sign Value Performing Clinician Facility 11-20-2022 15:05-0400 Body height 152.4 cm Gloria Jackelyn Other [facility] Other 11-20-2022 15:05-0400 Body mass index (BMI) [Ratio] 11.72 kg/m2 Gloria Jackelyn Other [facility] Other 11-20-2022 15:05-0400 Body temperature 97.7 [degF] Gloria Hayden Other [facility] Other 11-20-2022 15:05-0400 Body weight 27.22 kg Gloria Jackelyn Other [facility] Other 11-20-2022 15:05-0400 Respiratory rate 18 /min Gloria Hayden Other [facility] Other 11-20-2022 15:05 SaO2% (BldA) [Mass fraction] 97 % Gloria Hayden Other [facility] Other Encounters Encounter Date Encounter Type Care [...] 11-20-2022 End: 11-20-2022 ambulatory Gloria Hayden Other [facility] Other Start: 11-20-2022 Office outpatient vi sit [...] laboratory examination DR NORBERT VEGA . [facility] Start: 05-08-2022 End: 05-08-[address] NORBERT [...] Phone: Payers Date Payer Category Payer Medicaid [id number] [address] [facility] AN[employer] BCBS MEDICA[place] [id number] 2022-Present [address] [place] [address] [id number] 1985 Unknown [id number] 2.16.840.1.634508.3.579.2.593 1985 Unknown [id number] 2.16.840.1.703520.3.579.2.593 1985 Unknown [id number] 2.16.840.1.758092.3.579.2.593 1985 Unknown [id number] 2.16.840.1.742556.3.579.2.593 1985 Unknown [id number] 2.16.840.1.343279.3.579.2.593 1985 Unknown [id number] 2.16.840.1.141304.3.579.2.593 1985 Unknown [id number] 2.16.840.1.679459.3.579.2.593 1985 Unknown [id number] 2.16.840.1.984433.3.579.2.593 1985 Unknown [id number] 2.16.840.1.206760.3.579.2.593 1985 Unknown [id number] 2.16.840.1.552587.3.579.2.593 1985 Unknown [id number] 2.16.840.1.678535.3.579.2.593 1985 Unknown [id number] 2.16.840.1.284599.3.579.2.593 1985 Unknown [id number] 2.16.840.1.815406.3.579.2.593 1985 Unknown [id number] 2.16.840.1.854092.3.579.2.593 1985 Unknown [id number] 2.16.840.1.205121.3.579.2.593 1985 Unknown [id number] 2.16.840.1.090716.3.579.2.593 1985 Unknown [id number] 2.16.840.1.462160.3.579.2.593 1985 Unknown [id number] 2.16.840.1.122024.3.579.2.593 1985 Unknown [id number] 2.16.840.1.206987.3.579.2.593 1985 Unknown [id number] 2.16.840.1.729049.3.579.2.593 1985 Unknown [id number] 2.16.840.1.760331.3.579.2.1259 1985 Unknown [id number] 2.16.840.1.325542.3.579.2.1259 1985 Unknown [id number] 2.16.840.1.058909.3.579.2.1259 1985 Unknown [id number] 2.16.840.1.815166.3.579.2.1259 1959 Self-pay 1959 Unknown [id number] Social History Date Type Detail Facility Unknown if ever smoked [facility] Other Start: 12-21-2022 Sex Assigned At [facility] Other Start: 12-21-2022 Tobacco smoking status [facility] Never smoked tobacco [facility] Start: 12-21-2022 Tobacco use and exposure Smokeless tobacco non-user [facility] Start: 08-23-2023 Alcohol intake Current drinke r of alcohol (finding) [facility] Start: 12-21-2022 History of Social function [facility] Start: 01-14-2023 Alcohol Comment caffeine intak e: occasionally [facility] Start: 1985 Sex Assigned At Not on file [facility] Evaluation note 11-20-2022 Note [...] Contact dermatitis home care material was printed [facility] Other Clinical Note 05-08-2022 Note Date & [...] by: PEREZ DURBIN Date: 2022-05-08 18:03 [facility] Clinical Note 05-08-2022 Note Date & Type Note Facility 05-08-2022 Note OPERATIVE NOTE OPERATION DATE: 05/08/2022 PROCEDURE: Suction D AND C. PREOPERATIVE DIAGNOSIS: 1. Suspected molar during first trimester. 2. Uterine mass approximately 4.5 cm. POSTOPERATIVE DIAGNOSIS: 1. Suspected molar during first trimester. 2. Uterine mass approximately 4.5 cm. 3. Significant large amounts of retained products. SURGEON: Norbert Vega D.O. AUTOMATIC BLOCKER: None. BLOOD LOSS: 100 mL. URINE OUTPUT: [...] products of conception were removed using a 9-Mosotho suction curette tip. Excellent hemostasis was noted. The patient tolerated the procedure well. Sponge, lap, and needle counts were correct x 2. All instruments were then removed from the patient's vagina. The patient was taken to the Recovery Room in stable condition. ?? [facility] History general Narrative - Reported Note Date & Type Note Facility History general Narrative - Reported Type Medical History Hypercholesterolemia Medical History Hormone imbalance Medical History Vitamin D deficiency Medical History Iron deficiency Surgical History C section Surgical History oral surgery Surgical History tonsillectomy and adenoidectomy Surgical History D&C 2021 Hospitalization History child [facility] [employer] Other Summary Purpose Family History No Family History Records FoundNo Family History Records FoundNo Family History Records Found Advance Directives No Advanced Directives Records FoundNo Advanced Directives Records FoundNo Advanced Directives Records Found Additional Source Comments INFORMATION SOURCE (unrecogn ized section and content) DATE CREATED AUTHOR 08/15/2020 [facility] [place] [facility] [place] [facility] DATE CREATED AUTHOR AUTHOR'S ORGANIZ ATION 12/22/2022 [facility] DATE CREATED AUTHOR AUTHOR'S ORGANIZ ATION 12/07/2023 [facility] EPIC REASON FOR VISIT (unrecogniz ed section and content) [employer] Care Teams (unrecognized sec tion and content) 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 [employer] provides no warranty or guarantee of the accuracy or completeness of information in this document.
[2024-03-16 11:09] LABS: Progesterone 11.8 ng/mL (.)
== END 2024-03-15 11:55 | disposition home or self-care (01) ==
LOC: LAB 11:55
PROVIDERS: PCP Family Medicine; Visit Provider Obstetrics & Gynecology
DX: N97.0 Female infertility associated with anovulation (principal)
CPT/HCPCS: 36415; 84144

== ENCOUNTER 2024-04-17 16:44 | Outpatient (OUT) | payer MEDICAID, SELFPAY ==
--- OUTSIDE RECORDS SUMMARY | 2024-04-17 16:51 | XMS_ITS | CCD ---
Author Organization [facility] CliniSynh Care Team Providers Care Well Logging Mud Analysis Captain Name Role Phone Gloria Hayden Unavailable MAC [...] ble SILVIA ., DR TOUSSAINT Attending Unavailable SIVLIA ., DR TOUSSAINT Admitting Unavailable SILVIA ., [...] HOY ., DR KUMARI Primary Care Unavailable [place], DR PEREZ Luther Consulting Unavailable SILVIA ., DR TOUSSAINT Attending Unavailable SILVIA ., DR TOUSSAINT Consulting Unavailable HOY ., DR KUMARI Primary Care Unavailable [place], DR PEREZ Luther Consult[employer] Unavailable SILVIA ., DR TOUSSAINT Admitting Unavailable SILVIA ., DR TOUSSAINT Attending Unavailable SILVIA ., DR TOUSSAINT Consulting Unavailable SILVIA ., DR TOUSSAINT Admitting Unavailable HOY ., DR KUMARI Primary Care Unavailable [place], DR PEREZ [employer] Consulting Unavailable SILVIA ., [...] Mac VILLARREAL, Quoc Cedeno Primary Care Provider [phone] NORBERT VEGA Attending Unavailable NORBERT VEGA Attending Unavailable NORBERT VEGA Attending Unavailable NORBERT VEGA Attending Unavailable Allergies Allergy Classification Reported Allergen(s) Allergy Type Date of Onset Reaction(s) Facility (1 source) Penicillin G Drug Allergy throat swelling [email or web address] Other (1 source) Cefaclor Drug Allergy [facility] (2 sources) Penicillins Drug allergy (disorder) 01-26-20 16 [facility] (1 source) Penicillins Drug Intolerance [...] AUTO DIFFon BASOPHILS ABSOLUTE AUTO 0.0 [facility] Basophils/100 WBC (Bld) 0.2 % 0.2 - 2.0 % [facility] Eosinophils/100 WBC (Bld) 0.8 % Low 0.9 - 7.0 % [facility] Erythrocyte distribution width (RBC) [Ratio] 13.4 % 11.0 - 15.0 % [facility] Hematocrit (Bld) [Volume fraction] 42.3 % 36.0 - 48.0 % [facility] Hemoglobin (Bld) [Mass/Vol] 13.6 g/dL 12.0 - 16.0 g/dL [facility] IMMATURE GRANULOCYTES ABS AUTO 0.02 [facility] Immature granulocytes/100 WBC (Bld) 0.3 % 0.0 - 0.5 % [facility] Interpretation and review of laboratory results Abnormal [facility] LYMPHOCYTES ABSOLUTE AUTO 1.7 [facility] Lymphocytes/100 WBC (Bld) 26.5 % 20 .5 - 60.0 % [facility] MCH (RBC) [Entitic mass] 30.1 pg 26. 7 - 34.0 pg [facility] MCHC (RBC) [Mass/Vol] 32.2 g/dL 29.9 - 35.2 g/dL [facility] MCV (RBC) [Entitic vol] 93.6 fL 81.0 - 99.0 fL [facility] MONOCYTES ABSOLUTE AUTO 0.5 [facility] Monocytes/100 WBC (Bld) 7.3 % 1.7 - 12.0 % [facility] NEUTROPHILS ABSOLUTE AUTO 4.3 [facility] Neutrophils/100 WBC (Bld) 64.9 % 43 .0 - 75.0 % [facility] Platelet mean volume (Bld) [Entitic vol] 10.8 fL 9.5 - 13.5 fL [facility] EO # 0.1 [facility] PLT 220 [facility] RBC 4.52 [facility] WBC 6.5 [facility] PROGESTERONEon 12-19-2022 Progesterone 9.6 ng/mL Normal [facility] Comment on above: Result Comment: Foll icular phase 0.1 - 0.9 Luteal phase 1.8 - 23.9 Ovulation phase 0.1 - 12.0 First trimester 11.0 - 44.3 Second trimester 25.4 - 83.3 Third trimester 58.7 - 214.0 Postmenopausal 0.0 - 0.1 Performed By: #### P ROGES #### [facility] [address] [place] [address] Dr. Josie Sanchez PROGESTERONEon 11-19-2022 Progesterone 6.3 ng/mL Normal [facility] Comment on above: Result Comment: Foll icular phase 0.1 - 0.9 Luteal phase 1.8 - 23.9 Ovulation phase 0.1 - 12.0 First trimester 11.0 - 44.3 Second trimester 25.4 - 83.3 Third trimester 58.7 - 214.0 Postmenopausal 0.0 - 0.1 Performed By: #### P ROGES #### [facility] [address] [place] [address] Dr. Josie Sanchez PREG QUANT HCGon 11-18-2022 HCG QUANT <1 Normal [facility] Comment on above: Performed By: #### P REGQNT #### [facility] [address] [place] [address] Dr. Josie Sanchez HCG RANGE SEE BELOW Normal [facility] Comment on above: Result Comment: 5-50 0.2-1 WEEK 50-500 1-2 WEEKS 100-5,000 2-3 WEEKS 500-10,000 3-4 WEEKS 1,000-50,000 4-5 WEEKS 10,000-100,000 5-6 WEEKS 15,000-200,000 6-8 WEEKS 10,000-100,000 2-3 MONTHS Performed By: #### P REGQNT #### [facility] [address] [place] [address] Dr. Josie Sanchez US PELVIS AND TRANSVAGon [...] of a yolk sac as noted by electroencephalographic technologist. No significant free pelvic fluid is [...] by: RENE MEYERS Date: 2022-11-16 18:09 Normal [facility] DHEA SERUMon 11-11-2022 Dehydroepiandrosterone (DHEA) 335 ng/dL Normal 31-701 [facility] Comment on above: Performed By: #### E RILEY MEANS #### [facility] [address] [place] [address] Dr. Josie Sanchez DHEA-SULFATEon 11-10-2022 DHEA-Sulfate 251.0 ug/dL Normal 57.3-279.2 [facility] Comment on above: Performed By: #### P REGQNT #### [facility] [address] [place], [place] [address] Dr. Josie Sanchez ESTRADIOLon 11-10-2022 Estradiol 66.1 pg/mL Normal [facility] Comment on above: Result Comment: Adul t Female: Follicular phase 12.5 - 166.0 Ovulation phase 85.8 - 498.0 Luteal phase 43.8 - 211.0 Postmenopausal <6.0 - 54.7 1st trimester 215.0 - >4300.0 [facility] ECLIA methodology Performed By: #### E MIGUELANGEL UMICRO #### [facility] [address] [place] [address] Dr. Josie Sanchez FSHon 11-10-2022 FSH 6.9 mIU/mL Normal [facility] Comment on above: Result Comment: Adul t Female: Follicular phase 3.5 - 12.5 Ovulation phase 4.7 - 21.5 Luteal phase 1.7 - 7.7 Postmenopausal 25.8 - 134.8 Performed By: #### P REGQNT #### [facility] [address] [place] [address] Dr. Josie Sanchez LUTEINIZING HORMONE (LH)on 0 11-10-2022 LH 9.9 mIU/mL Normal [facility] Comment on above: Result Comment: Adul t Female: Follicular phase 2.4 - 12.6 Ovulation phase 14.0 - 95.6 Luteal phase 1.0 - 11.4 Postmenopausal 7.7 - 58.5 Performed By: #### RILEY VALERIO #### [facility] [address] [place] [address] Dr. Josie Sanchez CBC AUTO DIFFon 11-09-2022 BASO # 0.0 103/ul Normal 0.0-0.1 [facility] Comment on above: Performed By: #### RILEY VALERIO #### [facility] [address] [place] [address] Dr. Josie Sanchez Basophils/100 WBC (Bld) 0.3 % Normal 0.2-2.0 [facility] Comment on above: Performed By: #### RILEY VALERIO #### [facility] [address] [place] [address] Dr. Josie Sanchez EO # 0.0 103/ul Normal 0.0-0.7 [facility] Comment on above: Performed By: #### RILEY VALERIO #### [facility] [address] [place] [address] Dr. Josie Sanchez Eosinophils/100 WBC (Bld) 0.5 % Critically low 0.9-7. 0 [facility] Comment on above: Performed By: #### RILEY VALERIO #### [facility] [address] [place] [address] Dr. Josie Sanchez Erythrocyte distribution width (RBC) [Ratio] 13.2 % Normal 11.0-15.0 [facility] Comment on above: Performed By: #### Clyde MEANS UMICRO #### [facility] [address] [place] [address] Dr. Josie Sanchez Hematocrit (Bld) [Volume fraction] 41.8 % Normal 36.0-48.0 [facility] Comment on above: Performed By: #### Clyde MEANS UMICRO #### [facility] [address] [place] [address] Dr. Josie Sanchez Hemoglobin (Bld) [Mass/Vol] 13.7 g/dL Normal 12.0-16.0 [facility] Comment on above: Performed By: #### Clyde MEANS UMICRO #### [facility] [address] [place] [address] Dr. Josie Sanchez IG # 0.02 10e3/ul Normal 0.00-0.03 [facility] Comment on above: Performed By: #### Clyde MEANS UMICRO #### [facility] [address] [place] [address] Dr. Josie Sanchez IG % 0.3 % Normal 0.0-0.5 [facility] Comment on above: Performed By: #### Clyde MEANS UMICRO #### [facility] [address] [place] [address] Dr. Josie Sanchez LYMPH # 1.2 103/ul Normal 1.2-3.8 [facility] Comment on above: Performed By: #### Clyde MEANS UMICRO #### [facility] [address] [place] [address] Dr. Josie Sanchez Lymphocytes/100 WBC (Bld) 18.4 % Critically low 20.5-6 0.0 [facility] Comment on above: Performed By: #### Clyde MEANS UMICRO #### [facility] [address] [place] [address] Dr. Josie Sanchez MANUAL DIFF REQ NO Normal [facility] Comment on above: Performed By: #### KIAN VALERIORO #### [facility] [address] [place] [address] Dr. Josie Sanchez MCH (RBC) [Entitic mass] 29.5 pg Normal 26.7-34.0 [facility] Comment on above: Performed By: #### KIAN VALERIORO #### [facility] [address] [place] [address] Dr. Josie Sanchez MCHC (RBC) [Mass/Vol] 32.8 g/dL Normal 29.9-35.2 [facility] Comment on above: Performed By: #### KIAN VALERIORO #### [facility] [address] [place] [address] Dr. Josie Sanchez MCV (RBC) [Entitic vol] 89.9 fL Normal 81.0-99.0 [facility] Comment on above: Performed By: #### KIAN VALERIORO #### [facility] [address] [place] [address] Dr. Josie Sanchez MONO # 0.3 103/ul Normal 0.3-0.8 [facility] Comment on above: Performed By: #### KIAN VALERIORO #### [facility] [address] [place] [address] Dr. Josie Sanchez Monocytes/100 WBC (Bld) 5.1 % Normal 1.7-12.0 [facility] Comment on above: Performed By: #### KIAN VALERIORO #### [facility] [address] [place] [address] Dr. Josie Sanchez NEUT # 4.8 103/ul Normal 1.4-6.5 [facility] Comment on above: Performed By: #### KIAN VALERIORO #### [facility] [address] [place] [address] Dr. Josie Sanchez Neutrophils/100 WBC (Bld) 75.4 % Critically high 43.0- 75.0 [facility] Comment on above: Performed By: #### RILEY VALERIO #### [facility] [address] [place] [address] Dr. Josie Sanchez Platelet mean volume (Bld) [Entitic vol] 9.8 fL Normal 9.5-13.5 [facility] Comment on above: Performed By: #### Clyde MEANS UMICRO #### [facility] [address] [place] [address] Dr. Josie Sanchez PLT 256 103/ul Normal 150-450 [facility] Comment on above: Performed By: #### Clyde MEANS UMICRO #### [facility] [address] [place] [address] Dr. Josie Sanchez RBC 4.65 106/ul Normal 4.20-5.40 [facility] Comment on above: Performed By: #### ROBERT VALERIOICRO #### [facility] [address] [place] [address] Dr. Josie Sanchez WBC 6.4 103/ul Normal 4.0-11.0 [facility] Comment on above: Performed By: #### Clyde MEANS UMICRO #### [facility] [address] [place] [address] Dr. Josie Sanchez FERRITINon 11-09-2022 Ferritin [Mass/Vol] 42.0 ng/mL Normal 6.2-137.0 [facility] Comment on above: Performed By: #### Clyde MEANS UMICRO #### [facility] [address] [place] [address] Dr. Josie Sanchez FREE T4on 11-09-2022 Free T4 [Mass/Vol] 0.87 ng/dL Normal 0.76-1.46 [facility] Comment on above: Performed By: #### Clyde MEANS UMICRO #### [facility] [address] [place] [address] Dr. Josie Sanchez GLYCOHEMOGLOBIN A1Con 2022 ADA RECOMMENDATION SEE BELOW Normal [facility] Comment on above: Result Comment: ADA RECOMMENDED LIMIT 4.0 - 6.0 ADA THERAPEUTIC TARGET < 7.0 ACTION SUGGESTED > 7.0 Performed By: #### Clyde MEANS UMICRO #### [facility] [address] [place] [address] Dr. Josie Sanchez Glucose [Mass/Vol] 100 mg/dL Normal [facility] Comment on above: Performed By: #### Clyde MEANS UMICRO #### [facility] [address] [place] [address] Dr. Josie Sanchez HbA1c (Bld) [Mass fraction] 5.1 % Normal 4.5-6.2 [facility] Comment on above: Performed By: #### Clyde MEANS UMICRO #### [facility] [address] [place] [address] Dr. Josie Sanchez PREG QUANT HCGon 11-09-2022 HCG QUANT <1 Normal [facility] Comment on above: Performed By: #### Clyde MEANS UMICRO #### [facility] [address] [place] [address] Dr. Josie Sanchez HCG RANGE SEE BELOW Normal [facility] Comment on above: Result Comment: 5-50 0.2-1 WEEK 50-500 1-2 WEEKS 100-5,000 2-3 WEEKS 500-10,000 3-4 WEEKS 1,000-50,000 4-5 WEEKS 10,000-100,000 5-6 WEEKS 15,000-200,000 6-8 WEEKS 10,000-100,000 2-3 MONTHS Performed By: #### Clyde MEANS UMICRO #### [facility] [address] [place] [address] Dr. Josie Sanchez TSHon 11-09-2022 TSH 2.163 uIU/mL Normal 0.358-3.740 [facility] Comment on above: Performed By: #### Clyde MEANS UMICRO #### [facility] [address] [place] [address] Dr. Josie Sanchez PROGESTERONEon 08-29-2022 Progesterone 7.3 ng/mL Normal [facility] Comment on above: Result Comment: Foll icular phase 0.1 - 0.9 Luteal phase 1.8 - 23.9 Ovulation phase 0.1 - 12.0 First trimester 11.0 - 44.3 Second trimester 25.4 - 83.3 Third trimester 58.7 - 214.0 Postmenopausal 0.0 - 0.1 Performed By: #### P MADELINES #### [facility] [address] [place] [address] Dr. Josie Sanchez INSULINon 08-13-2022 Insulin 12.5 uIU/mL Normal 2.6-24.9 [facility] Comment on above: Performed By: #### P REGQNT #### [facility] [address] [place] [address] Dr. Josie Sanchez CBC AUTO DIFFon 08-12-2022 BASO # 0.0 103/ul Normal 0.0-0.1 [facility] Comment on above: Performed By: #### KIAN VALERIORO #### [facility] [address] [place] [address] Dr. Josie Sanchez Basophils/100 WBC (Bld) 0.2 % Normal 0.2-2.0 [facility] Comment on above: Performed By: #### KIAN VALERIORO #### [facility] [address] [place] [address] Dr. Josie Sanchez EO # 0.1 103/ul Normal 0.0-0.7 [facility] Comment on above: Performed By: #### Clyde MEANS UMICRO #### [facility] [address] [place] [address] Dr. Josie Sanchez Eosinophils/100 WBC (Bld) 0.8 % Critically low 0.9-7. 0 [facility] Comment on above: Performed By: #### ROBERT VALERIOICRO #### [facility] [address] [place] [address] Dr. Josie Sanchez Erythrocyte distribution width (RBC) [Ratio] 14.0 % Normal 11.0-15.0 [facility] Comment on above: Performed By: #### Clyde MEANS UMICRO #### [facility] [address] [place] [address] Dr. Josie Sanchez Hematocrit (Bld) [Volume fraction] 39.5 % Normal 36.0-48.0 [facility] Comment on above: Performed By: #### Clyde MEANS UMICRO #### [facility] [address] [place] [address] Dr. Josie Sanchez Hemoglobin (Bld) [Mass/Vol] 12.7 g/dL Normal 12.0-16.0 [facility] Comment on above: Performed By: #### Clyde MEANS UMICRO #### [facility] [address] [place] [address] Dr. Josie Sanchez IG # 0.02 10e3/ul Normal 0.00-0.03 [facility] Comment on above: Performed By: #### Clyde MEANS UMICRO #### [facility] [address] [place] [address] Dr. Josie Sanchez IG % 0.3 % Normal 0.0-0.5 [facility] Comment on above: Performed By: #### Clyde MEANS UMICRO #### [facility] [address] [place] [address] Dr. Josie Sanchez LYMPH # 1.6 103/ul Normal 1.2-3.8 [facility] Comment on above: Performed By: #### Clyde MEANS UMICRO #### [facility] [address] [place] [address] Dr. Josie Sanchez Lymphocytes/100 WBC (Bld) 26.9 % Normal 20.5-60.0 [facility] Comment on above: Performed By: #### Clyde MEANS UMICRO #### [facility] [address] [place] [address] Dr. Josie Sanchez MANUAL DIFF REQ NO Normal [facility] Comment on above: Performed By: #### Clyde MEANS UMICRO #### [facility] [address] [place] [address] Dr. Josie Sanchez MCH (RBC) [Entitic mass] 28.3 pg Normal 26.7-34.0 [facility] Comment on above: Performed By: #### Clyde MEANS UMICRO #### [facility] [address] [place] [address] Dr. Josie Sanchez MCHC (RBC) [Mass/Vol] 32.2 g/dL Normal 29.9-35.2 [facility] Comment on above: Performed By: #### ROBERT VALERIOICRO #### [facility] [address] [place] [address] Dr. Josie Sanchez MCV (RBC) [Entitic vol] 88.0 fL Normal 81.0-99.0 [facility] Comment on above: Performed By: #### ROBERT VALERIOICRO #### [facility] [address] [place] [address] Dr. Josie Sanchez MONO # 0.4 103/ul Normal 0.3-0.8 [facility] Comment on above: Performed By: #### Clyde MEANS UMICRO #### [facility] [address] [place] [address] Dr. Josie Sanchez Monocytes/100 WBC (Bld) 7.1 % Normal 1.7-12.0 [facility] Comment on above: Performed By: #### Clyde MEANS UMICRO #### [facility] [address] [place] [address] Dr. Josie Sanchez NEUT # 3.8 103/ul Normal 1.4-6.5 [facility] Comment on above: Performed By: #### Clyde MEANS UMICRO #### [facility] [address] [place] [address] Dr. Josie Sanchez Neutrophils/100 WBC (Bld) 64.7 % Normal 43.0-75.0 [facility] Comment on above: Performed By: #### Clyde MEANS UMICRO #### [facility] [address] [place] [address] Dr. Josie Sanchez Platelet mean volume (Bld) [Entitic vol] 10.1 fL Normal 9.5-13.5 [facility] Comment on above: Performed By: #### Clyde MEANS UMICRO #### [facility] [address] [place] [address] Dr. Josie Sanchez PLT 211 103/ul Normal 150-450 [facility] Comment on above: Performed By: #### RILEY VALERIO #### [facility] [address] [place] [address] Dr. Josie Sanchez RBC 4.49 106/ul Normal 4.20-5.40 [facility] Comment on above: Performed By: #### RILEY VALERIO #### [facility] [address] [place] [address] Dr. Josie Sanchez WBC 5.9 103/ul Normal 4.0-11.0 [facility] Comment on above: Performed By: #### RILEY VALERIO #### [facility] [address] [place] [address] Dr. Josie Sanchez FREE THYROXINE INDEX T7on FTI 2.63 Normal 1.30-4.50 [facility] Comment on above: Performed By: #### RILEY VALERIO #### [facility] [address] [place] [address] Dr. Josie Sanchez T3U 35.0 % Normal 30.0-39.0 [facility] Comment on above: Performed By: #### RILEY VALERIO #### [facility] [address] [place] [address] Dr. Josie Sanchez T4 [Mass/Vol] 7.50 ug/dL Normal 4.80-13.90 [facility] Comment on above: Performed By: #### RILEY VALERIO #### [facility] [address] [place] [address] Dr. Josie Sanchez GLYCOHEMOGLOBIN A1Con 2022 ADA RECOMMENDATION SEE BELOW Normal [facility] Comment on above: Result Comment: ADA RECOMMENDED LIMIT 4.0 - 6.0 ADA THERAPEUTIC TARGET < 7.0 ACTION SUGGESTED > 7.0 Performed By: #### RILEY VALERIO #### [facility] [address] [place] [address] Dr. Josie Sanchez Glucose [Mass/Vol] 111 mg/dL Normal [facility] Comment on above: Performed By: #### RILEY VALERIO #### [facility] [address] [place] [address] [address] Josie Sanchez HbA1c (Bld) [Mass fraction] 5.5 % Normal 4.5-6.2 [facility] Comment on above: Performed By: #### E RILEY MEANS #### [facility] [address] [address] [address] Josie Sanchez IRONon 08-12-2022 Iron [Mass/Vol] 40.0 ug/dL Critically low 50.0-170.0 [facility] Comment on above: Performed By: #### P REGQNT #### [facility] [address] [address] [address] Josie Sanchez LIPID PROFILEon 08-12-2022 CHOL-HDL RATIO NORM SEE BELOW Normal [facility] Comment on above: Result Comment: 3.3 - 4.4 LOW RISK 4.4 - 7.1 AVERAGE RISK 7.1 - 11.0 MODERATE RISK >11.0 HIGH RISK Performed By: #### P REGQNT #### [facility] [address] [address] [address] Josie Sanchez Cholesterol [Mass/Vol] 183 mg/dL Normal <=200 [facility] Comment on above: Performed By: #### P REGQNT #### [facility] [address] [address] [address] Josie Sanchez Cholesterol in HDL [Mass/Vol] 40 mg/dL Normal 40-60 [facility] Comment on above: Performed By: #### P REGQNT #### [facility] [address] [address] [address] Josie Sanchez Cholesterol in LDL [Mass/Vol] 131.0 mg/dL Normal [facility] Comment on above: Performed By: #### P REGQNT #### [facility] [address] [address] [address] Josie Sanchez Cholesterol.total/Choleste rol in HDL [Mass ratio] 4.6 {ratio} Normal [facility] Comment on above: Performed By: #### P REGQNT #### [facility] [address] [address] [address] Josie Sanchez HDL NORMAL > or = 60 mg/dl - LOW CARDIOVASCULAR RISK <40 mg/dl - HIGH CARDIOVASCULAR RISK Normal [facility] Comment on above: Performed By: #### P REGQNT #### [facility] [address] [place] [address] Dr. Josie Sanchez LDL CALC NORMAL SEE BELOW Normal [facility] Comment on above: Result Comment: <100 mg/dl OPTIMAL 100 - 129 mg/dl NEAR OR ABOVE OPTIMAL 130 - 159 mg/dl BORDERLINE HIGH 160 - 189 mg/dl HIGH >190 mg/dl VERY HIGH Performed By: #### P REGQNT #### [facility] [address] [address] [address] Josie Sanchez Triglyceride [Mass/Vol] 60 mg/dL Normal <=150 T [facility] Comment on above: Performed By: #### P REGQNT #### [facility] [address] [place] [address] Dr. Josie Sanchez VLDL CALC 12.0 mg/dL Normal [facility] Comment on above: Performed By: #### P REGQNT #### [facility] [address] [place] [address] Dr. Josie Sanchez PROF 14(COMP METB)on 023 Albumin [Mass/Vol] 3.7 g/dL Normal 3.4-5.0 [facility] Comment on above: Performed By: #### RILEY VALERIO #### [facility] [address] [place] [address] Dr. Josie Sanchez Albumin/Globulin [Mass ratio] 0.9 {ratio} Normal [facility] Comment on above: Performed By: #### KIAN VALERIORO #### [facility] [address] [place] [address] Dr. Josie Sanchez ALP [Catalytic activity/Vol] 131 U/L Critically high 46-116 [facility] Comment on above: Performed By: #### KIAN VALERIORO #### [facility] [address] [place] [address] Dr. Josie Sanchez ALT [Catalytic activity/Vol] 23 U/L Normal 14-59 [facility] Comment on above: Performed By: #### RILEY VALERIO #### [facility] [address] [place] [address] Dr. Josie Sanchez Anion gap [Moles/Vol] 10.5 mmol/L Normal [facility] Comment on above: Performed By: #### RILEY VALERIO #### [facility] [address] [place] [address] Dr. Josie Sanchez AST [Catalytic activity/Vol] 18 U/L Normal 15-37 [facility] Comment on above: Performed By: #### RILEY VALERIO #### [facility] [address] [place] [address] Dr. Josie Sanchez Bilirubin [Mass/Vol] 0.7 mg/dL Normal 0.2-1.0 [facility] Comment on above: Performed By: #### RILEY VALERIO #### [facility] [address] [place] [address] Dr. Josie Sanchez Calcium [Mass/Vol] 8.7 mg/dL Normal 8.5-10.1 [facility] Comment on above: Performed By: #### RILEY VALERIO #### [facility] [address] [place] [address] Dr. Josie Sanchez Chloride [Moles/Vol] 103 mmol/L Normal 98-107 [facility] Comment on above: Performed By: #### RILEY VALERIO #### [facility] Laboratory [address] [place] [address] Dr. Josie Sanchez CO2 [Moles/Vol] 30.1 mmol/L Normal 21.0-32.0 [facility] Comment on above: Performed By: #### RILEY VALERIO #### [facility] [address] [place] [address] Dr. Josie Sanchez Creatinine [Mass/Vol] 0.66 mg/dL Normal 0.55-1.02 [facility] Comment on above: Performed By: #### KIAN VALERIORO #### [facility] [address] [place] [address] Dr. Josie Sanchez EGFR-AF [place] >60 Normal >=60 [facility] Comment on above: Performed By: #### RILEY VALERIO #### [facility] [address] [place] [address] Dr. Josie Sanchez EGFR-NON AF [place]IZ[place] >60 Normal >=60 [facility] Comment on above: Performed By: #### KIAN VALERIORO #### [facility] [address] [place] [address] Dr. Josie Sanchez Globulin (S) [Mass/Vol] 4.3 g/dL Normal T [facility] Comment on above: Performed By: #### RILEY VALERIO #### [facility] [address] [place] [address] Dr. Josie Sanchez Glucose [Mass/Vol] 90 mg/dL Normal 74-106 [facility] Comment on above: Performed By: #### RILEY VALERIO #### [facility] [address] [place] [address] Dr. Josie Sanchez Potassium [Moles/Vol] 3.6 mmol/L Normal 3.5-5.1 [facility] Comment on above: Performed By: #### KIAN VALERIORO #### [facility] [address] [place] [address] Dr. Josie Sanchez Protein [Mass/Vol] 8.0 g/dL Normal 6.4-8.2 [facility] Comment on above: Performed By: #### KIAN VALERIORO #### [facility] [address] [place] [address] Dr. Josie Sanchez Sodium [Moles/Vol] 140 mmol/L Normal 136-145 [facility] Comment on above: Performed By: #### KIAN VALERIORO #### [facility] [address] [place] [address] Dr. Josie Sanchez Urea nitrogen [Mass/Vol] 12.0 mg/dL Normal 7.0-18.0 [facility] Comment on above: Performed By: #### RILEY VALERIO #### [facility] [address] [place] [address] Dr. Josie Sanchez Urea nitrogen/Creatinine [Mass ratio] 18.2 mg/mg Normal [facility] Comment on above: Performed By: #### RILEY VALERIO #### [facility] [address] [place] [address] Dr. Josie Sanchez TSHon 08-12-2022 TSH 3.070 uIU/mL Normal 0.358-3.740 [facility] Comment on above: Performed By: #### P REGQNT #### [facility] [address] [place] [address] Dr. Josie Sanchez PREG QUANT HCGon 06-22-2022 HCG QUANT 1 mIU/mL Normal [facility] Comment on above: Performed By: #### KIAN VALERIORO #### [facility] [address] [place] [address] Dr. Josie Sanchez HCG RANGE SEE BELOW Normal [facility] Comment on above: Result Comment: 5-50 0.2-1 WEEK 50-500 1-2 WEEKS 100-5,000 2-3 WEEKS 500-10,000 3-4 WEEKS 1,000-50,000 4-5 WEEKS 10,000-100,000 5-6 WEEKS 15,000-200,000 6-8 WEEKS 10,000-100,000 2-3 MONTHS Performed By: #### RILEY VALERIO #### [facility] [address] [place] [address] Dr. Josie Sanchez PREG QUANT HCGon 05-20-2022 HCG QUANT 6 mIU/mL Normal [facility] Comment on above: Performed By: #### P REGQNT #### [facility] [address] [place] [address] Dr. Josie Sanchez HCG RANGE SEE BELOW Normal [facility] Comment on above: Result Comment: 5-50 0.2-1 WEEK 50-500 1-2 WEEKS 100-5,000 2-3 WEEKS 500-10,000 3-4 WEEKS 1,000-50,000 4-5 WEEKS 10,000-100,000 5-6 WEEKS 15,000-200,000 6-8 WEEKS 10,000-100,000 2-3 MONTHS Performed By: #### P REGQNT #### [facility] [address] [place] [address] Dr. Josie Sanchez PREG QUANT HCGon 05-14-2022 HCG QUANT 26 mIU/mL Normal [facility] Comment on above: Performed By: #### P REGQNT #### [facility] [address] [place] [address] Dr. Josie Sanchez HCG RANGE SEE BELOW Normal [facility] Comment on above: Result Comment: 5-50 0.2-1 WEEK 50-500 1-2 WEEKS 100-5,000 2-3 WEEKS 500-10,000 3-4 WEEKS 1,000-50,000 4-5 WEEKS 10,000-100,000 5-6 WEEKS 15,000-200,000 6-8 WEEKS 10,000-100,000 2-3 MONTHS Performed By: #### P REGQNT #### [facility] [address] [place] [address] Dr. Josie Sanchez CBC AUTO DIFFon 05-08-2022 BASO # 0.0 103/ul Normal 0.0-0.1 [facility] Comment on above: Performed By: #### RILEY VALERIO #### [facility] [address] [place] [address] Dr. Josie Sanchez Basophils/100 WBC (Bld) 0.2 % Normal 0.2-2.0 [facility] Comment on above: Performed By: #### RILEY VALERIO #### [facility] [address] [place] [address] Dr. Josie Sanchez EO # 0.0 103/ul Normal 0.0-0.7 [facility] Comment on above: Performed By: #### RILEY VALERIO #### [facility] [address] [place] [address] Dr. Josie Sanchez Eosinophils/100 WBC (Bld) 0.5 % Critically low 0.9-7. 0 [facility] Comment on above: Performed By: #### KIAN VALERIORO #### [facility] [address] [place] [address] Dr. Josie Sanchez Erythrocyte distribution width (RBC) [Ratio] 12.8 % Normal 11.0-15.0 [facility] Comment on above: Performed By: #### KIAN VALERIORO #### [facility] [address] [place] [address] Dr. Josie Sanchez Hematocrit (Bld) [Volume fraction] 41.0 % Normal 36.0-48.0 [facility] Comment on above: Performed By: #### KIAN VALERIORO #### [facility] [address] [place] [address] Dr. Josie Sanchez Hemoglobin (Bld) [Mass/Vol] 13.4 g/dL Normal 12.0-16.0 [facility] Comment on above: Performed By: #### KIAN VALERIORO #### [facility] [address] [place] [address] Dr. Josie Sanchez IG # 0.02 10e3/ul Normal 0.00-0.03 [facility] Comment on above: Performed By: #### KIAN VALERIORO #### [facility] [address] [place] [address] Dr. Josie Sanchez IG % 0.3 % Normal 0.0-0.5 [facility] Comment on above: Performed By: #### KIAN VALERIORO #### [facility] [address] [place] [address] Dr. Josie Sanchez LYMPH # 1.6 103/ul Normal 1.2-3.8 [facility] Comment on above: Performed By: #### KIAN VALERIORO #### [facility] [address] [place] [address] Dr. Josie Sanchez Lymphocytes/100 WBC (Bld) 27.1 % Normal 20.5-60.0 [facility] Comment on above: Performed By: #### KIAN VALERIORO #### [facility] [address] [place] [address] Dr. Josie Sanchez MANUAL DIFF REQ NO Normal [facility] Comment on above: Performed By: #### Clyde MEANS UMICRO #### [facility] [address] [place] [address] Dr. Josie Sanchez MCH (RBC) [Entitic mass] 29.3 pg Normal 26.7-34.0 [facility] Comment on above: Performed By: #### Clyde MEANS UMICRO #### [facility] [address] [place] [address] Dr. Josie Sanchez MCHC (RBC) [Mass/Vol] 32.7 g/dL Normal 29.9-35.2 [facility] Comment on above: Performed By: #### Clyde MEANS UMICRO #### [facility] [address] [place] [address] Dr. Josie Sanchez MCV (RBC) [Entitic vol] 89.5 fL Normal 81.0-99.0 [facility] Comment on above: Performed By: #### Clyde MEANS UMICRO #### [facility] [address] [place] [address] Dr. Josie Sanchez MONO # 0.5 103/ul Normal 0.3-0.8 [facility] Comment on above: Performed By: #### Clyde MEANS UMICRO #### [facility] [address] [place] [address] Dr. Josie Sanchez Monocytes/100 WBC (Bld) 8.6 % Normal 1.7-12.0 [facility] Comment on above: Performed By: #### Clyde MEANS UMICRO #### [facility] [address] [place] [address] Dr. Josie Sanchez NEUT # 3.7 103/ul Normal 1.4-6.5 [facility] Comment on above: Performed By: #### Clyde MEANS UMICRO #### [facility] [address] [place] [address] Dr. Josie Sanchez Neutrophils/100 WBC (Bld) 63.3 % Normal 43.0-75.0 [facility] Comment on above: Performed By: #### Clyde MEANS UMICRO #### [facility] [address] [address] [address] Josie Sanchez Platelet mean volume (Bld) [Entitic vol] 9.8 fL Normal 9.5-13.5 [facility] Comment on above: Performed By: #### Clyde MEANS, UMICRO #### [facility] [address] [address] [address] Josie Sanchez PLT 238 103/ul Normal 150-450 [facility] Comment on above: Performed By: #### Clyde MEANS, UMICRO #### [facility] [address] [place] [address] Dr. Josie Sanchez RBC 4.58 106/ul Normal 4.20-5.40 [facility] Comment on above: Performed By: #### Clyde MEANS, ICRO #### [facility] [address] [place] [address] Dr. Josie Sanchez WBC 5.8 103/ul Normal 4.0-11.0 [facility] Comment on above: Performed By: #### Clyde MEANS, ICRO #### [facility] [address] [place] [address] Dr. Josie Sanchez PREG QUANT HCGon 05-08-2022 HCG QUANT 2335 mIU/mL Normal [facility] Comment on above: Performed By: #### P REGQNT #### [facility] [address] [place] [address] Dr. Josie Sanchez HCG RANGE SEE BELOW Normal [facility] Comment on above: Result Comment: 5-50 0.2-1 WEEK 50-500 1-2 WEEKS 100-5,000 2-3 WEEKS 500-10,000 3-4 WEEKS 1,000-50,000 4-5 WEEKS 10,000-100,000 5-6 WEEKS 15,000-200,000 6-8 WEEKS 10,000-100,000 2-3 MONTHS Performed By: #### P REGQNT #### [facility] [address] [place] [address] Dr. Josie Sanchez CBC AUTO DIFFon 05-07-2022 BASO # 0.0 103/ul Normal 0.0-0.1 [facility] Comment on above: Performed By: #### IRLEY VALERIO #### [facility] [address] [place] [address] Dr. Josie Sanchez Basophils/100 WBC (Bld) 0.2 % Normal 0.2-2.0 [facility] Comment on above: Performed By: #### KIAN VALERIORO #### [facility] [address] [place] [address] Dr. Josie Sanchez EO # 0.0 103/ul Normal 0.0-0.7 [facility] Comment on above: Performed By: #### RILEY VALERIO #### [facility] [address] [place] [address] Dr. Josie Sanchez Eosinophils/100 WBC (Bld) 0.3 % Critically low 0.9-7. 0 [facility] Comment on above: Performed By: #### KIAN VALERIORO #### [facility] [address] [place] [address] Dr. Josie Sanchez Erythrocyte distribution width (RBC) [Ratio] 12.8 % Normal 11.0-15.0 [facility] Comment on above: Performed By: #### RILEY VALERIO #### [facility] [address] [place] [address] Dr. Josie Sanchez Hematocrit (Bld) [Volume fraction] 41.2 % Normal 36.0-48.0 [facility] Comment on above: Performed By: #### KIAN VALERIORO #### [facility] [address] [place] [address] Dr. Josie Sanchez Hemoglobin (Bld) [Mass/Vol] 13.3 g/dL Normal 12.0-16.0 [facility] Comment on above: Performed By: #### KIAN VALERIORO #### [facility] [address] [place] [address] Dr. Josie Sanchez IG # 0.02 10e3/ul Normal 0.00-0.03 [facility] Comment on above: Performed By: #### E RUR, UMICRO #### [facility] [address] [place] [address] Dr. Josie Sanchez IG % 0.3 % Normal 0.0-0.5 [facility] Comment on above: Performed By: #### E YOSELINR, UMICRO #### [facility] [address] [place] [address] Dr. Josie Sanchez LYMPH # 1.0 103/ul Critically low 1.2-3.8 [facility] Comment on above: Performed By: #### E MIGUELANGEL, UMICRO #### [facility] [address] [place] [address] Dr. Josie Sanchez Lymphocytes/100 WBC (Bld) 15.5 % Critically low 20.5-6 0.0 [facility] Comment on above: Performed By: #### Clyde MEANS UMICRO #### [facility] [address] [place] [address] Dr. Josie Sanchez MANUAL DIFF REQ NO Normal [facility] Comment on above: Performed By: #### Clyde MEANS UMICRO #### [facility] [address] [place] [address] Dr. Josie Sanchez MCH (RBC) [Entitic mass] 28.9 pg Normal 26.7-34.0 [facility] Comment on above: Performed By: #### Clyde MEANS UMICRO #### [facility] [address] [place] [address] Dr. Josie Sanchez MCHC (RBC) [Mass/Vol] 32.3 g/dL Normal 29.9-35.2 [facility] Comment on above: Performed By: #### E RUJolie, UMICRO #### [facility] [address] [place] [address] Dr. Josie Sanchez MCV (RBC) [Entitic vol] 89.6 fL Normal 81.0-99.0 [facility] Comment on above: Performed By: #### E MIGUELANGEL, UMICRO #### [facility] [address] [place] [address] Dr. Josie Sanchez MONO # 0.4 103/ul Normal 0.3-0.8 [facility] Comment on above: Performed By: #### RILEY VALERIO #### [facility] [address] [place] [address] Dr. Josie Sanchez Monocytes/100 WBC (Bld) 6.2 % Normal 1.7-12.0 [facility] Comment on above: Performed By: #### KIAN VALERIORO #### [facility] [address] [place] [address] Dr. Josie Sanchez NEUT # 5.0 103/ul Normal 1.4-6.5 [facility] Comment on above: Performed By: #### KIAN VALERIORO #### [facility] [address] [place] [address] Dr. Josie Sanchez Neutrophils/100 WBC (Bld) 77.5 % Critically high 43.0- 75.0 [facility] Comment on above: Performed By: #### KIAN VALERIORO #### [facility] [address] [place] [address] Dr. Josie Sanchez Platelet mean volume (Bld) [Entitic vol] 10.2 fL Normal 9.5-13.5 [facility] Comment on above: Performed By: #### KIAN VALERIORO #### [facility] [address] [place] [address] Dr. Josie Sanchez PLT 237 103/ul Normal 150-450 [facility] Comment on above: Performed By: #### KIAN VALERIORO #### [facility] [address] [place] [address] Dr. Josie Sanchez RBC 4.60 106/ul Normal 4.20-5.40 [facility] Comment on above: Performed By: #### KIAN VALERIORO #### [facility] [address] [place] [address] Dr. Josie Sanchez WBC 6.5 103/ul Normal 4.0-11.0 [facility] Comment on above: Performed By: #### KIAN VALERIORO #### [facility] [address] [place] [address] Dr. Josie Sanchez Covid-19 PCR (CVDTB)on 04-10 SARS-CoV-2 (COVID-19) RNA ALEXA+probe Ql (Unsp spec) Not detected Normal NOT DETECTED [facility] Comment on above: Result Comment: This test is not yet approved or cleared by the [place] FDA. When there are no FDA-approved or cleared tests available, and other criteria are met, FDA can make tests available under an emergency access mechanism called an Emergency Use Authorization (EUA). The EUA for this test is supported by the [employer] Supervisor of Health and Human Service's (HHS's) declaration [...] SARS-CoV-2. Performed By: #### RILEY VALERIO #### [facility] [address] [place] [address] Dr. Josie Sanchez PREG QUANT HCGon 05-07-2022 HCG QUANT 2745 mIU/mL Normal [facility] Comment on above: Performed By: #### RILEY VALERIO #### [facility] [address] [place] [address] Dr. Josie Sanchez HCG RANGE SEE BELOW Normal [facility] Comment on above: Result Comment: 5-50 0.2-1 WEEK 50-500 1-2 WEEKS 100-5,000 2-3 WEEKS 500-10,000 3-4 WEEKS 1,000-50,000 4-5 WEEKS 10,000-100,000 5-6 WEEKS 15,000-200,000 6-8 WEEKS 10,000-100,000 2-3 MONTHS Performed By: #### RILEY VALERIO #### [facility] [address] [place] [address] Dr. Josie Sanchez US PREG TVon 05-05-2022 [...] by: PEREZ DURBIN Date: 2022-05-05 14:42 Normal [facility] ER URINE PROFILEon 2 Bilirubin Ql (U) Negative Normal NEGATIVE [facility] Comment on above: Performed By: #### RILEY VALERIO #### [facility] [address] [place] [address] Dr. Josie Sanchez Clarity (U) CLEAR Normal CLEAR [facility] Comment on above: Performed By: #### RILEY VALERIO #### [facility] [address] [place] [address] Dr. Josie Sanchez Color (U) YELLOW Normal YELLOW [facility] Comment on above: Performed By: #### RILEY VALERIO #### [facility] [address] [place] [address] Dr. Josie WU A micrscopic examination will be performed if indicated. Normal [facility] Comment on above: Performed By: #### RILEY VALERIO #### [facility] [address] [place] [address] Dr. Josie Sanchez Glucose Ql (U) Negative Normal NEGATIVE [facility] Comment on above: Performed By: #### ROBERT VALERIOICRO #### [facility] [address] [address] [address] Josie Sanchez Hemoglobin Ql (U) SMALL Abnormal NEGATIVE [facility] Comment on above: Performed By: #### Clyde MEANS UMICRO #### [facility] [address] [place] [address] Dr. Josie Sanchez Ketones Ql (U) 15 mg/dl Abnormal NEGATIVE [facility] Comment on above: Performed By: #### ROBERT VALERIOICRO #### [facility] [address] [place] [address] Dr. Josie Sanchez LEUKOCYTES Negative Normal NEGATIVE [facility] Comment on above: Performed By: #### Clyde MEANS UMICRO #### [facility] [address] [place] [address] Dr. Josie Sanchez Nitrite Ql (U) Negative Normal NEGATIVE [facility] Comment on above: Performed By: #### KIAN VALERIORO #### [facility] [address] [place] [address] Dr. Josie Sanchez pH (U) 6.0 [pH] Normal 5-9 [facility] Comment on above: Performed By: #### KIAN VALERIORO #### [facility] [address] [place] [address] Dr. Josie Sanchez SPEC GRAVITY 1.020 Normal 1.005-<=1.02 5 [facility] Comment on above: Performed By: #### KIAN VALERIORO #### [facility] [address] [place] [address] Dr. Josie Sanchez UA PROTEIN Negative Normal NEGATIVE/ TRACE [facility] Comment on above: Performed By: #### KIAN VALERIORO #### [facility] [address] [place] [address] Dr. Josie Sanchez UR MICRO IND INDICATED Normal [facility] Comment on above: Performed By: #### KIAN VALERIORO #### [facility] [address] [place] [address] Dr. Josie Sanchez Urobilinogen Qn (U) 0.2 {Fabricio'U}/dL Normal 0.2 - 1. 0 [facility] Comment on above: Performed By: #### KIAN VALERIORO #### [facility] [address] [place] [address] Dr. Josie Sanchez URINE MICROSCOPIC ONLYon BACTERIA NONE SEEN Normal NONE SEEN [facility] Comment on above: Performed By: #### Clyde MEANS UMICRO #### [facility] [address] [place] [address] Dr. Josie Sanchez Bacteria identified Cx Nom (U) NOT INDICATED Normal [facility] Comment on above: Performed By: #### Clyde MEANS UMICRO #### [facility] [address] [place] [address] Dr. Josie Sanchez CAST NONE SEEN Normal NONE SEEN [facility] Comment on above: Performed By: #### Clyde MEANS UMICRO #### [facility] [address] [place] [address] Dr. Josie Sanchez Crystals LM Nom (Urine sed) NONE SEEN Normal NONE SEEN [facility] Comment on above: Performed By: #### Clyde MEANS UMICRO #### [facility] [address] [place] [address] Dr. Josie Sanchez Epithelial cells LM Ql (Urine sed) NONE SEEN Normal NONE SEEN /RARE [facility] Comment on above: Performed By: #### Clyde MEANS UMICRO #### [facility] [address] [place] [address] Dr. Josie Sanchez MUCOUS MODERATE Abnormal NONE SEEN [facility] Comment on above: Performed By: #### Clyde MEANS UMICRO #### [facility] [address] [place] [address] Dr. Josie Sanchez RBC 0-2 Normal 0-2 [facility] Comment on above: Performed By: #### Clyde MEANS UMICRO #### [facility] [address] [place] [address] Dr. Josie Sanchez WBC NONE SEEN Normal NONE SEEN [facility] Comment on above: Performed By: #### RILEY VALERIO #### [facility] [address] [place] [address] Dr. Josie Sanchez PREG QUANT HCGon 04-20-2022 HCG QUANT 25582 mIU/mL Normal [facility] Comment on above: Performed By: #### KIAN VALERIORO #### [facility] [address] [place] [address] Dr. Josie Sanchez HCG RANGE SEE BELOW Normal [facility] Comment on above: Result Comment: 5-50 0.2-1 WEEK 50-500 1-2 WEEKS 100-5,000 2-3 WEEKS 500-10,000 3-4 WEEKS 1,000-50,000 4-5 WEEKS 10,000-100,000 5-6 WEEKS 15,000-200,000 6-8 WEEKS 10,000-100,000 2-3 MONTHS Performed By: #### KIAN VALERIORO #### [facility] [address] [place] [address] Dr. Josie Sanchez HCG-BETA SUBUNIT QUANTon hCG,Beta Subunit,Qnt,Serum <1 Normal [facility] Comment on above: Result Comment: Fema le (Non-) 0 - 5 (Postmenopausal) 0 - 8 . Female () Weeks of Gestation 3 6 - 71 4 10 - 750 5 217 - 7138 6 158 - 09438 7 [phone] -[phone] 8 84667 -[phone] 9 97047 -[phone] 10 38745 -792789 12 35818 -[phone] 14 24526 - 37768 15 93558 - 35177 16 5207 - 52301 17 4523 - 92449 18 7458 - [phone] Regina ECLIA methodology Performed By: #### KIAN VALERIORO #### [facility] [address] [place] [address] Dr. Josie Sanchez CBC AUTO DIFFon 02-18-2022 BASO # 0.0 103/ul Normal 0.0-0.1 [facility] Comment on above: Performed By: #### [place] BC #### [facility] [address] [place] [address] Dr. Josie Sanchez Basophils/100 WBC (Bld) 0.2 % Normal 0.2-2.0 [facility] Comment on above: Performed By: #### C BC #### [facility] [address] [place] [address] Dr. Josie Sanchez EO # 0.1 103/ul Normal 0.0-0.7 [facility] Comment on above: Performed By: #### C BC #### [facility] [address] [place] [address] Dr. Josie Sanchez Eosinophils/100 WBC (Bld) 0.8 % Critically low 0.9-7. 0 [facility] Comment on above: Performed By: #### C BC #### [facility] [address] [place] [address] Dr. Josie Sanchez Erythrocyte distribution width (RBC) [Ratio] 12.5 % Normal 11.0-15.0 [facility] Comment on above: Performed By: #### C BC #### [facility] [address] [place] [address] Dr. Josie Sanchez Hematocrit (Bld) [Volume fraction] 39.5 % Normal 36.0-48.0 [facility] Comment on above: Performed By: #### C BC #### [facility] [address] [place] [address] Dr. Josie Sanchez Hemoglobin (Bld) [Mass/Vol] 13.0 g/dL Normal 12.0-16.0 [facility] Comment on above: Performed By: #### C BC #### [facility] [address] [place] [address] Dr. Josie Sanchez IG # 0.02 10e3/ul Normal 0.00-0.03 [facility] Comment on above: Performed By: #### C BC #### [facility] [address] [place] [address] Dr. Josie Sanchez IG % 0.3 % Normal 0.0-0.5 [facility] Comment on above: Performed By: #### C BC #### [facility] [address] [place] [address] Dr. Josie Sanchez LYMPH # 1.5 103/ul Normal 1.2-3.8 [facility] Comment on above: Performed By: #### C BC #### [facility] [address] [place] [address] Dr. Josie Sanchez Lymphocytes/100 WBC (Bld) 22.9 % Normal 20.5-60.0 [facility] Comment on above: Performed By: #### C BC #### [facility] [address] [place] [address] Dr. Josie Sanchez MANUAL DIFF REQ NO Normal [facility] Comment on above: Performed By: #### C BC #### [facility] [address] [place] [address] Dr. Josie Sanchez MCH (RBC) [Entitic mass] 30.3 pg Normal 26.7-34.0 [facility] Comment on above: Performed By: #### C BC #### [facility] [address] [place] [address] Dr. Josie Sanchez MCHC (RBC) [Mass/Vol] 32.9 g/dL Normal 29.9-35.2 [facility] Comment on above: Performed By: #### C BC #### [facility] [address] [place] [address] Dr. Josie Sanchez MCV (RBC) [Entitic vol] 92.1 fL Normal 81.0-99.0 [facility] Comment on above: Performed By: #### C BC #### [facility] [address] [place] [address] Dr. Josie Sanchez MONO # 0.4 103/ul Normal 0.3-0.8 [facility] Comment on above: Performed By: #### C BC #### [facility] [address] [place] [address] Dr. Josie Sanchez Monocytes/100 WBC (Bld) 5.7 % Normal 1.7-12.0 [facility] Comment on above: Performed By: #### C BC #### [facility] [address] [place] [address] Dr. Josie Sanchez NEUT # 4.6 103/ul Normal 1.4-6.5 [facility] Comment on above: Performed By: #### C BC #### [facility] [address] [place] [address] Dr. Josie Sanchez Neutrophils/100 WBC (Bld) 70.1 % Normal 43.0-75.0 [facility] Comment on above: Performed By: #### C BC #### [facility] [address] [place] [address] Dr. Josie Sanchez Platelet mean volume (Bld) [Entitic vol] 10.0 fL Normal 9.5-13.5 [facility] Comment on above: Performed By: #### C BC #### [facility] [address] [place] [address] Dr. Josie Sanchez PLT 242 103/ul Normal 150-450 [facility] Comment on above: Performed By: #### C BC #### [facility] [address] [place] [address] Dr. Josie Sanchez RBC 4.29 106/ul Normal 4.20-5.40 [facility] Comment on above: Performed By: #### C BC #### [facility] [address] [place] [address] Dr. Josie Sanchez WBC 6.5 103/ul Normal 4.0-11.0 [facility] Comment on above: Performed By: #### C BC #### [facility] [address] [place] [address] Dr. Josie Sanchez LIPID PROFILEon 02-18-2022 CHOL-HDL RATIO NORM SEE BELOW Normal [facility] Comment on above: Result Comment: 3.3 - 4.4 LOW RISK 4.4 - 7.1 AVERAGE RISK 7.1 - 11.0 MODERATE RISK >11.0 HIGH RISK Performed By: #### L IPID, TSH #### [facility] [address] [place] [address] Dr. Josie Sanchez Cholesterol [Mass/Vol] 182 mg/dL Normal <=200 [facility] Comment on above: Performed By: #### L IPID, TSH #### [facility] [address] [place] [address] Dr. Josie Sanchez Cholesterol in HDL [Mass/Vol] 40 mg/dL Normal 40-60 [facility] Comment on above: Performed By: #### L IPID, TSH #### [facility] [address] [address] [address] Josie Sanchez Cholesterol in LDL [Mass/Vol] 122.4 mg/dL Normal [facility] Comment on above: Performed By: #### L IPID, TSH #### [facility] [address] [address] [address] Josie Sanchez Cholesterol.total/Choleste rol in HDL [Mass ratio] 4.6 {ratio} Normal [facility] Comment on above: Performed By: #### L IPID, TSH #### [facility] [address] [address] [address] Josie Sanchez HDL NORMAL > or = 60 mg/dl - LOW CARDIOVASCULAR RISK <40 mg/dl - HIGH CARDIOVASCULAR RISK Normal [facility] Comment on above: Performed By: #### L IPID, TSH #### [facility] [address] [address] [address] Josie Sanchez LDL CALC NORMAL SEE BELOW Normal [facility] Comment on above: Result Comment: <100 mg/dl OPTIMAL 100 - 129 mg/dl NEAR OR ABOVE OPTIMAL 130 - 159 mg/dl BORDERLINE HIGH 160 - 189 mg/dl HIGH >190 mg/dl VERY HIGH Performed By: #### L IPID, TSH #### [facility] [address] [address] [address] Josie Sanchez Triglyceride [Mass/Vol] 98 mg/dL Normal <=150 T [facility] Comment on above: Performed By: #### L IPID, TSH #### [facility] [address] [address] [address] Josie Sanchez VLDL CALC 19.6 mg/dL Normal [facility] Comment on above: Performed By: #### L IPID, TSH #### [facility] [address] [address] [address] Josie Sanchez PROTIMEon 02-18-2022 INR Coag (PPP) [Relative time] 1.10 {INR} Normal [facility] Comment on above: Performed By: #### P REGQNT #### [facility] [address] [place] [address] Dr. Josie Sanchez INR GUIDELINES SEE BELOW Normal [facility] Comment on above: Result Comment: PAULINA RED INR: 2.0 - 3.0 CONDITIONS NOT LISTED BELOW 2.5 - 3.5 FOR PROSTHETIC HEART VALVE REPLACEMENT 2.5 - 3.5 RECURRENT THROMBOSIS Performed By: #### P REGQNT #### [facility] [address] [place] [address] Dr. Josie Sanchez PT Coag (PPP) [Time] 11.8 s Critically high 9.0-11.6 [facility] Comment on above: Performed By: #### P REGQNT #### [facility] [address] [place] [address] Dr. Josie Sanchez PTTon 02-18-2022 aPTT Coag (Bld) [Time] 29.8 s Normal 22.3-36.2 [facility] Comment on above: Performed By: #### P REGQNT #### [facility] [address] [place] [address] Dr. Josie Sanchez TSHon 02-18-2022 TSH 3.410 uIU/mL Normal 0.358-3.740 [facility] Comment on above: Performed By: #### L IPID, TSH #### [facility] [address] [place] [address] Dr. Josie Sanchez US PELVIS AND TRANSVAGon [...] by: PEREZ DURBIN Date: 2022-02-18 18:56 Normal [facility] Nursing Note - Woundon 08-15 Nursing Note - Wound [id number] [id number] 19579#3.00CD:[address] [facility] Coding Summary.on 08-08-2020 Coding Summary. CODING DATE: 08/08/2020 FINAL [facility] STATUS: Home (Routine DC) PAYOR: Medicaid [...] Jeannie Nur Date Saved: 08/08/2020 10:31 am [facility] Formson 08-08-2020 Forms [id number] 0459#1.00CD:[address] [facility] Home Health Recordson 2019 Home Health Records [id number] 3EFD#1.00CD:127 [facility] Ambulatory Clinical Summaryo n 07-26-2020 Ambulatory Clinical Summary {4k-[id number]-61-26-59 -67-8q-46-05-b0-03 -33-60-e2-c7}CD:61 4368 [facility] Home Health Recordson 2019 Home Health Records [id number] 0EC7#1.00CD:127 [facility] Progress Note - Woundon 07-09 Progress Note - Wound [id number] [id number] 98155#2.00CD:127 [facility] Consent for Treatmenton 07-09 Consent for Treatment [id number] AFAA#1.00CD:127 [facility] Multi-Wound Charton 07-25-20 20 Multi-Wound Chart [id number] [id number] 62717#1.00CD:127 [facility] Nursing Assessment - Woundon 07-25-2020 Nursing Assessment - Wound 170.71.121.11 7.202 [id number] 67038#1.00CD:127 [facility] Physician Orderon 07-25-2020 Physician Order [id number] 68149#1.00CD:127 [facility] Home Health Recordson 2019 Home Health Records [id number] 3741#1.00CD:127 [facility] Home Health Recordson 2019 Home Health Records [id number] 3554#1.00CD:127 [facility] Coding Summary.on 07-12-2020 Coding Summary. 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 However, the narrative phrase printed from the coding software may appear abbreviated, or result in slightly different terminology. Coded By: Aicha Bledsoe CphT Date Saved: 07/12/2020 03:05 pm [facility] Coding Summary. 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 However, the narrative phrase printed from the coding software may appear abbreviated, or result in slightly different terminology. Coded By: Aicha Bledsoe CphT Date Saved: 07/12/2020 03:03 pm [facility] Multi-Wound Charton 07-12-20 20 Multi-Wound Chart [id number] [id number] 62785#1.00CD:127 [facility] Nursing Assessment - Woundon 07-12-2020 Nursing Assessment - Wound 170.71.121.11 7. [id number] 65881#1.00CD:127 [facility] Nursing Note - Woundon 07-12 Nursing Note - Wound [id number] [id number] 99580#1.00CD:127 [facility] Consent for Procedure/Surger yon 07-11-2020 Consent for Procedure/Surgery 149.45.122.18.2020 [id number] 69638#1.00CD:127 [facility] Consent for Treatmenton Consent for Treatment [id number] [id number] B36A#1.00CD:127 [facility] Home Health Recordson 2019 Home Health Records [id number] D3A1#1.00CD:127 [facility] Home Health Records [id number] B2A4#1.00CD:127 [facility] Physician Orderon 07-11-2020 Physician Order [id number] [id number] 72848#1.00CD:127 [facility] Progress Note - Woundon Progress Note - Wound [id number] [id number] 18194#1.00CD:127 [facility] Nursing Note - Woundon 07-02 Nursing Note - Wound 170.71.121.117.202 [id number] 72049#3.00CD:127 [facility] Consent for Procedure/Surger yon 06-28-2020 Consent for Procedure/Surgery 149.45.122.6. [id number] 0200#1.00CD:127 [facility] Consent to Photographon 06-10 Consent to Photograph 149.45.122.6. [id number] 0326#1.00CD:127 [facility] HIPAA Privacy Documentson HIPAA Privacy Documents 149.45.122.6.202 [id number] 0158#1.00CD:127 [facility] Nursing Note - Woundon 06-28 Nursing Note - Wound 149.45.122.6. [id number] 0289#1.00CD:127 [facility] Nursing Note - Wound 149.45.122.6. [id number] 0217#1.00CD:127 [facility] Consent for Treatmenton 06-09 Consent for Treatment 159.140.128.34.202 [id number] EEDA#1.00CD:127 [facility] Multi-Wound Charton 06-27-20 20 Multi-Wound Chart [id number] [id number] 93625#1.00CD:127 [facility] Nursing Assessment - Woundon 06-27-2020 Nursing Assessment - Wound 170.71.121.11 7.202 [id number] 39288#1.00CD:127 [facility] Physician Orderon 06-27-2020 Physician Order [id number] [id number] 00742#2.00CD:127 [facility] Progress Note - Woundon 06-09 Progress Note - Wound 170.71.121.117.202 [id number] 24742#1.00CD:127 [facility] HIPAA Privacy Documentson HIPAA Privacy Documents 170.71.121.100.2 02 [id number] 932524#1.00CD:127 [facility] Outside Records Officeon Outside Records Office 170.71.121.100.20 2 [id number] 975979#1.00CD:127 [facility] Vital Signs Date Time Vital Sign Value Performing Clinician Facility 11-20-2022 15:05-0400 Body height 152.4 cm Gloria Jackelyn Other [email or web address] Other 11-20-2022 15:05-0400 Body mass index (BMI) [Ratio] 11.72 kg/m2 Gloria Jackelyn Other [email or web address] Other 11-20-2022 15:05-0400 Body temperature 97.7 [degF] Gloria Hayden Other [email or web address] Other 11-20-2022 15:05-0400 Body weight 27.22 kg Gloria Jackelyn Other [email or web address] Other 11-20-2022 15:05-0400 Respiratory rate 18 /min Gloria Hayden Other [email or web address] Other 11-20-2022 15:05 SaO2% (BldA) [Mass fraction] 97 % Gloria Hayden Other [email or web address] Other Encounters Encounter Date Encounter Type Care [...] 11-20-2022 End: 11-20-2022 ambulatory Gloria Hayden Other [email or web address] Other Start: 11-20-2022 Office outpatient vi sit 15 minutes Gloria Hayden [facility] Start: 11-18-2022 End: 11-19-[address] NOREBRT VEGA . Facility:[facility] Start: 11-16-2022 End: 11-17-[address] NORBERT VEGA . Facility:[facility] Start: 11-09-2022 End: 11-10-[address] NORBERT VEGA . Facility:[facility] Start: 08-28-2022 End: 08-29-[address] NORBERT VEGA . Facility:[facility] Start: 08-12-2022 End: 08-13-[address] QUOC WATTS . Facility:[facility] Start: 06-22-2022 End: 06-23-[address] NORBERT VEGA . Facility:[facility] Start: 05-14-2022 End: 06-08-[address] NORBERT VEAG . Facility:[facility] Start: 05-11-2022 Encounter for preprocedural laboratory examination DR NORBERT VEGA . [facility] Start: 05-08-2022 End: 05-08-[address] [...] Phone: Payers Date Payer Category Payer Medicaid [id number] 2022 Medicaid [facility] [place]ICA[place] [id number] 2022-Present [address] [place] [address] [id number] [id number] 1985 Unknown [id number] 2.16.840.1.063573.3.579.2.593 1985 Unknown [id number] 2.16.840.1.199446.3.579.2.593 1985 Unknown [id number] 2.16.840.1.185235.3.579.2.593 1985 Unknown [id number] 2.16.840.1.832485.3.579.2.593 1985 Unknown [id number] 2.16.840.1.062774.3.579.2.593 1985 Unknown [id number] 2.16.840.1.710788.3.579.2.593 1985 Unknown [id number] 2.16.840.1.550707.3.579.2.593 1985 Unknown [id number] 2.16.840.1.033740.3.579.2.593 1985 Unknown [id number] 2.16.840.1.912761.3.579.2.593 1985 Unknown [id number] 2.16.840.1.452745.3.579.2.593 1985 Unknown [id number] 2.16.840.1.997264.3.579.2.593 1985 Unknown [id number] 2.16.840.1.439916.3.579.2.593 1985 Unknown [id number] 2.16.840.1.340955.3.579.2.593 1985 Unknown [id number] 2.16.840.1.981261.3.579.2.593 1985 Unknown [id number] 2.16.840.1.049846.3.579.2.593 1985 Unknown [id number] 2.16.840.1.619863.3.579.2.593 1985 Unknown [id number] 2.16.840.1.645512.3.579.2.593 1985 Unknown [id number] 2.16.840.1.387407.3.579.2.593 1985 Unknown [id number] 2.16.840.1.393253.3.579.2.593 1985 Unknown [id number] 2.16.840.1.567039.3.579.2.593 1985 Unknown [id number] 2.16.840.1.759304.3.579.2.1259 1985 Unknown [id number] 2.16.840.1.342779.3.579.2.1259 1985 Unknown [id number] 2.16.840.1.284753.3.579.2.1259 1985 Unknown [id number] 2.16.840.1.801966.3.579.2.1259 1959 Self-pay 1959 Unknown [id number] Social History Date Type Detail Facility Unknown if ever smoked [email or web address] Other Start: 12-21-2022 Sex Assigned At [email or web address] Other Start: 12-21-2022 Tobacco smoking status [facility] Never smoked tobacco [facility] Start: [...] Contact dermatitis home care material was printed [email or web address] Other Clinical Note 05-08-2022 Note Date & [...] by: PEREZ DURBIN Date: 2022-05-08 18:03 [facility] Clinical Note 05-08-2022 Note Date & Type Note Facility 05-08-2022 Note OPERATIVE NOTE OPERATION DATE: 05/08/2022 PROCEDURE: Suction D AND C. PREOPERATIVE DIAGNOSIS: 1. Suspected molar during first trimester. 2. Uterine mass approximately 4.5 cm. POSTOPERATIVE DIAGNOSIS: 1. Suspected molar during first trimester. 2. Uterine mass approximately 4.5 cm. 3. Significant large amounts of retained products. SURGEON: Norbert Vega D.O. INTERNATIONAL TRADE ANALYST: None. BLOOD LOSS: 100 mL. URINE OUTPUT: [...] products of conception were removed using a 9-Dutch suction curette tip. Excellent hemostasis was noted. [...] Surgical History D&C 2021 Hospitalization History child [facility] [employer] Other Summary Purpose Family History No Family History Records FoundNo Family History Records FoundNo Family History Records Found Advance Directives No Advanced Directives Records FoundNo Advanced Directives Records FoundNo Advanced Directives Records Found Additional Source Comments INFORMATION SOURCE (unrecogn ized section and content) DATE CREATED AUTHOR 08/15/2020 [employer] [facility] DATE CREATED AUTHOR AUTHOR'S ORGANIZ ATION 12/22/2022 [facility] DATE CREATED AUTHOR AUTHOR'S ORGANIZ ATION 12/07/2023 [facility] EPIC REASON FOR VISIT (unrecogniz ed section and content) [employer] Care Teams (unrecognized sec tion and content) [employer] Captain Relationship Specialty Start Date End Date Quoc Watts MD [address] [place] [address] PCP - General Family Medicine 12/28/22 FOR [...] BE BASED ON THE PRIMARY CLINICAL RECORDS. [employer] provides no warranty or guarantee of the accuracy or completeness of information in this document.
--- NOTE | 2024-04-17 17:20 | XR_ITS ---
The [address] [address] Patient Name: LB ANTONIO MRN: [id number] date: 1985 Sex: F Assigned Patient Location: [facility] Current Patient Location: Accession/Order Number: [id number] Exam Date: 04/17/2024 17:15 Report Date: 04/19/2024 10:24 At the request of: QUOC BELL Procedure: XR foot LT min 3V PROCEDURE: XR foot LT min 3V HISTORY: FOOT PAIN, LEFT M79.672 COMPARISON: XR foot left 11/25/2011 FINDINGS: BONES:No fracture, acute abnormality, or significant arthropathy. SOFT TISSUES:No visible soft tissue swelling. EFFUSION:None visible. OTHER: Negative. XR/XR foot LT min 3V IMPRESSION: 1. No acute bone abnormality or significant degenerative changes. Skin surface marker localizing the patient's tenderness to the first tarsal-metatarsal joint. Electronically authenticated by: RON LAM Date: 04/19/2024 10:24
== END 2024-04-17 16:45 | disposition home or self-care (01) ==
LOC: RAD 16:45
PROVIDERS: PCP Family Medicine; Visit Provider Family Medicine
DX: M79.672 Pain in left foot (principal)
CPT/HCPCS: 73630

== ENCOUNTER 2024-06-19 12:13 | Outpatient (RCR) | payer MEDICAID, SELFPAY ==
--- OUTSIDE RECORDS SUMMARY | 2024-06-19 12:21 | XMS_ITS | CCD ---
Author Organization [facility] CliniSynv Care Team Providers [employer] Mechanic Name Role Phone Gloria Hayden Unavailable MAC [...] HOY ., DR KUMARI Primary Care Unavailable [place], DR PEREZ Luther Consulting Unavailable SILVIA ., DR TOUSSAINT Attending Unavailable SILVIA ., DR TOUSSAINT Consulting Unavailable HOY ., DR KUMARI Primary Care Unavailable [place], DR PEREZ Luther Consulting Unavailable SILVIA ., DR TOUSSAINT Admitting Unavailable SILVIA ., DR TOUSSAINT Attending Unavailable SILVIA ., DR TOUSSAINT Consulting Unavailable SILVIA ., DR TOUSSAINT Admitting Unavailable HOY ., DR KUMARI Primary Care Unavailable [place], DR PEREZ Luther Consulting Unavailable SILVIA ., [...] Mac VILLARREAL, Quoc Cedeno Primary Care Provider [phone] NORBERT VEGA Attending Unavailable NORBERT VEGA Attending Unavailable NORBERT VEGA Attending Unavailable NORBERT VEGA Attending Unavailable Allergies Allergy Classification Reported Allergen(s) Allergy Type Date of Onset Reaction(s) Facility (1 source) Penicillin G Drug Allergy throat swelling [facility] Other (1 source) Cefaclor Drug Allergy [facility] Repository (2 sources) Penicillins Drug allergy (disorder) 01-26-20 16 [facility] Repository (1 source) Penicillins Drug Intolerance 10-21-19 [...] AUTO DIFFon BASOPHILS ABSOLUTE AUTO 0.[address] [facility] Basophils/100 WBC (Bld) 0.2 % 0.2 - 2.0 % [facility] Eosinophils/100 WBC (Bld) 0.8 % Low 0.9 - 7.0 % [facility] Erythrocyte distribution width (RBC) [Ratio] 13.4 % 11.0 - 15.0 % [facility] Hematocrit (Bld) [Volume fraction] 42.3 % 36.0 - 48.0 % [facility] Hemoglobin (Bld) [Mass/Vol] 13.6 g/dL 12.0 - 16.0 g/dL [facility] IMMATURE GRANULOCYTES ABS AUTO 0.02 [facility] Immature granulocytes/100 WBC (Bld) 0.3 % 0.0 - 0.5 % [facility] Interpretation and review of laboratory results Abnormal [facility] LYMPHOCYTES ABSOLUTE AUTO 1.7 [facility] Lymphocytes/100 WBC (Bld) 26.5 % 20 .5 - 60.0 % [facility] MCH (RBC) [Entitic mass] 30.1 pg 26. 7 - 34.0 pg [facility] MCHC (RBC) [Mass/Vol] 32.2 g/dL 29.9 - 35.2 g/dL [facility] MCV (RBC) [Entitic vol] 93.6 fL 81.0 - 99.0 fL [facility] MONOCYTES ABSOLUTE AUTO 0.[address] [facility] Monocytes/100 WBC (Bld) 7.3 % 1.7 - 12.0 % [facility] NEUTROPHILS ABSOLUTE AUTO 4.3 [facility] Neutrophils/100 WBC (Bld) 64.9 % 43 .0 - 75.0 % [facility] Platelet mean volume (Bld) [Entitic vol] 10.8 fL 9.5 - 13.5 fL [facility] TBH EO # 0.1 [facility] PLT 220 [facility] RBC 4.52 [facility] WBC 6.5 [facility] PROGESTERONEon 12-19-2022 Progesterone 9.6 ng/mL Normal [facility] Comment on above: Result Comment: Foll icular phase 0.1 - 0.9 Luteal phase 1.8 - 23.9 Ovulation phase 0.1 - 12.0 First trimester 11.0 - 44.3 Second trimester 25.4 - 83.3 Third trimester 58.7 - 214.0 Postmenopausal 0.0 - 0.1 Performed By: #### P ROGES #### [facility] [address] [place] [address] Dr. Josie Sanchez PROGESTERONEon 11-19-2022 Progesterone 6.3 ng/mL Normal [facility] Comment on above: Result Comment: Foll icular phase 0.1 - 0.9 Luteal phase 1.8 - 23.9 Ovulation phase 0.1 - 12.0 First trimester 11.0 - 44.3 Second trimester 25.4 - 83.3 Third trimester 58.7 - 214.0 Postmenopausal 0.0 - 0.1 Performed By: #### P ROGES #### [facility] [address] [place] [address] Dr. Josie Sanchez PREG QUANT HCGon 11-18-2022 HCG QUANT <1 Normal [facility] Comment on above: Performed By: #### P REGQNT #### [facility] [address] [place] [address] Dr. Josie Sanchez HCG RANGE SEE BELOW Normal [facility] Comment on above: Result Comment: 5-50 0.2-1 WEEK 50-500 1-2 WEEKS 100-5,000 2-3 WEEKS 500-10,000 3-4 WEEKS 1,000-50,000 4-5 WEEKS 10,000-100,000 5-6 WEEKS 15,000-200,000 6-8 WEEKS 10,000-100,000 2-3 MONTHS Performed By: #### P REGQNT #### [facility] [address] [place] [address] Dr. Josie Sanchez US PELVIS AND TRANSVAGon [...] of a yolk sac as noted by wood technologist. No significant free pelvic fluid is [...] by: RENE MEYERS Date: 2022-11-16 18:09 Normal [facility] DHEA SERUMon 11-11-2022 Dehydroepiandrosterone (DHEA) 335 ng/dL Normal 31-701 [facility] Comment on above: Performed By: #### E RILEY MEANS #### [facility] [address] [place] [address] Dr. Josie Sanchez DHEA-SULFATEon 11-10-2022 DHEA-Sulfate 251.0 ug/dL Normal 57.3-279.2 [facility] Comment on above: Performed By: #### P REGQNT #### [facility] [address], [place] [address] Dr. Josie Sanchez ESTRADIOLon 11-10-2022 Estradiol 66.1 pg/mL Normal [facility] Comment on above: Result Comment: Adul t Female: Follicular phase 12.5 - 166.0 Ovulation phase 85.8 - 498.0 Luteal phase 43.8 - 211.0 Postmenopausal <6.0 - 54.7 1st trimester 215.0 - >4300.0 [facility] ECLIA methodology Performed By: #### E MIGUELANGEL UMICRO #### [facility] [address] [place] [address] Dr. Josie Sanchez FSHon 11-10-2022 FSH 6.9 mIU/mL Normal [facility] Comment on above: Result Comment: Adul t Female: Follicular phase 3.5 - 12.5 Ovulation phase 4.7 - 21.5 Luteal phase 1.7 - 7.7 Postmenopausal 25.8 - 134.8 Performed By: #### P REGQNT #### [facility] [address] [place] [address] Dr. Josie Sanchez LUTEINIZING HORMONE (LH)on 0 11-10-2022 LH 9.9 mIU/mL Normal [facility] Comment on above: Result Comment: Adul t Female: Follicular phase 2.4 - 12.6 Ovulation phase 14.0 - 95.6 Luteal phase 1.0 - 11.4 Postmenopausal 7.7 - 58.5 Performed By: #### RILEY VALERIO #### [facility] [address] [place] [address] Dr. Josie Sanchez CBC AUTO DIFFon 11-09-2022 BASO # 0.0 103/ul Normal 0.0-0.1 [facility] Comment on above: Performed By: #### RILEY VALERIO #### [facility] [address] [place] [address] Dr. Josie Sanchez Basophils/100 WBC (Bld) 0.3 % Normal 0.2-2.0 [facility] Comment on above: Performed By: #### RILEY VALERIO #### [facility] [address] [place] [address] Dr. Josie Sanchez EO # 0.0 103/ul Normal 0.0-0.7 [facility] Comment on above: Performed By: #### RILEY VALERIO #### [facility] [address] [place] [address] Dr. Josie Sanchez Eosinophils/100 WBC (Bld) 0.5 % Critically low 0.9-7. 0 [facility] Comment on above: Performed By: #### RILEY VALERIO #### [facility] [address] [place] [address] Dr. Josie Sanchez Erythrocyte distribution width (RBC) [Ratio] 13.2 % Normal 11.0-15.0 [facility] Comment on above: Performed By: #### Clyde MEANS UMICRO #### [facility] [address] [place] [address] Dr. Josie Sanchez Hematocrit (Bld) [Volume fraction] 41.8 % Normal 36.0-48.0 [facility] Comment on above: Performed By: #### Clyde MEANS UMICRO #### [facility] [address] [place] [address] Dr. Josie Sanchez Hemoglobin (Bld) [Mass/Vol] 13.7 g/dL Normal 12.0-16.0 [facility] Comment on above: Performed By: #### Clyde MEANS UMICRO #### [facility] [address] [place] [address] Dr. Josie Sanchez IG # 0.02 10e3/ul Normal 0.00-0.03 [facility] Comment on above: Performed By: #### Clyde MEANS UMICRO #### [facility] [address] [place] [address] Dr. Josie Sanchez IG % 0.3 % Normal 0.0-0.5 [facility] Comment on above: Performed By: #### Clyde MEANS UMICRO #### [facility] [address] [place] [address] Dr. Josie Sanchez LYMPH # 1.2 103/ul Normal 1.2-3.8 [facility] Comment on above: Performed By: #### Clyde MEANS UMICRO #### [facility] [address] [place] [address] Dr. Josie Sanchez Lymphocytes/100 WBC (Bld) 18.4 % Critically low 20.5-6 0.0 [facility] Comment on above: Performed By: #### Clyde MEANS UMICRO #### [facility] [address] [place] [address] Dr. Josie Sanchez MANUAL DIFF REQ NO Normal [facility] Comment on above: Performed By: #### KIAN VALERIORO #### [facility] [address] [place] [address] Dr. Josie Sanchez MCH (RBC) [Entitic mass] 29.5 pg Normal 26.7-34.0 [facility] Comment on above: Performed By: #### KIAN VALERIORO #### [facility] [address] [place] [address] Dr. Josie Sanchez MCHC (RBC) [Mass/Vol] 32.8 g/dL Normal 29.9-35.2 [facility] Comment on above: Performed By: #### KIAN VALERIORO #### [facility] [address] [place] [address] Dr. Josie Sanchez MCV (RBC) [Entitic vol] 89.9 fL Normal 81.0-99.0 [facility] Comment on above: Performed By: #### KIAN VALERIORO #### [facility] [address] [place] [address] Dr. Josie Sanchez MONO # 0.3 103/ul Normal 0.3-0.8 [facility] Comment on above: Performed By: #### KIAN VALERIORO #### [facility] [address] [place] [address] Dr. Josie Sanchez Monocytes/100 WBC (Bld) 5.1 % Normal 1.7-12.0 [facility] Comment on above: Performed By: #### KIAN VALERIORO #### [facility] [address] [place] [address] Dr. Josie Sanchez NEUT # 4.8 103/ul Normal 1.4-6.5 [facility] Comment on above: Performed By: #### KIAN VALERIORO #### [facility] [address] [place] [address] Dr. Josie Sanchez Neutrophils/100 WBC (Bld) 75.4 % Critically high 43.0- 75.0 [facility] Comment on above: Performed By: #### RILEY VALERIO #### [facility] [address] [place] [address] Dr. Josie Sanchez Platelet mean volume (Bld) [Entitic vol] 9.8 fL Normal 9.5-13.5 [facility] Comment on above: Performed By: #### Clyde MEANS UMICRO #### [facility] [address] [place] [address] Dr. Josie Sanchez PLT 256 103/ul Normal 150-450 [facility] Comment on above: Performed By: #### Clyde MEANS UMICRO #### [facility] [address] [place] [address] Dr. Josie Sanchez RBC 4.65 106/ul Normal 4.20-5.40 [facility] Comment on above: Performed By: #### ROBERT VALERIOICRO #### [facility] [address] [place] [address] Dr. Josie Sanchez WBC 6.4 103/ul Normal 4.0-11.0 [facility] Comment on above: Performed By: #### Clyde MEANS UMICRO #### [facility] [address] [place] [address] Dr. Josie Sanchez FERRITINon 11-09-2022 Ferritin [Mass/Vol] 42.0 ng/mL Normal 6.2-137.0 [facility] Comment on above: Performed By: #### Clyde MEANS UMICRO #### [facility] [address] [place] [address] Dr. Josie Sanchez FREE T4on 11-09-2022 Free T4 [Mass/Vol] 0.87 ng/dL Normal 0.76-1.46 [facility] Comment on above: Performed By: #### Clyde MEANS UMICRO #### [facility] [address] [place] [address] Dr. Josie Sanchez GLYCOHEMOGLOBIN A1Con 2022 ADA RECOMMENDATION SEE BELOW Normal [facility] Comment on above: Result Comment: ADA RECOMMENDED LIMIT 4.0 - 6.0 ADA THERAPEUTIC TARGET < 7.0 ACTION SUGGESTED > 7.0 Performed By: #### Clyde MEANS UMICRO #### [facility] [address] [place] [address] Dr. Josie Sanchez Glucose [Mass/Vol] 100 mg/dL Normal [facility] Comment on above: Performed By: #### Clyde MEANS UMICRO #### [facility] [address] [place] [address] Dr. Josie Sanchez HbA1c (Bld) [Mass fraction] 5.1 % Normal 4.5-6.2 [facility] Comment on above: Performed By: #### Clyde MEANS UMICRO #### [facility] [address] [place] [address] Dr. Josie Sanchez PREG QUANT HCGon 11-09-2022 HCG QUANT <1 Normal [facility] Comment on above: Performed By: #### Clyde MEANS UMICRO #### [facility] [address] [place] [address] Dr. Josie Sanchez HCG RANGE SEE BELOW Normal [facility] Comment on above: Result Comment: 5-50 0.2-1 WEEK 50-500 1-2 WEEKS 100-5,000 2-3 WEEKS 500-10,000 3-4 WEEKS 1,000-50,000 4-5 WEEKS 10,000-100,000 5-6 WEEKS 15,000-200,000 6-8 WEEKS 10,000-100,000 2-3 MONTHS Performed By: #### Clyde MEANS UMICRO #### [facility] [address] [place] [address] Dr. Josie Sanchez TSHon 11-09-2022 TSH 2.163 uIU/mL Normal 0.358-3.740 [facility] Comment on above: Performed By: #### Clyde MEANS UMICRO #### [facility] [address] [place] [address] Dr. Josie Sanchez PROGESTERONEon 08-29-2022 Progesterone 7.3 ng/mL Normal [facility] Comment on above: Result Comment: Foll icular phase 0.1 - 0.9 Luteal phase 1.8 - 23.9 Ovulation phase 0.1 - 12.0 First trimester 11.0 - 44.3 Second trimester 25.4 - 83.3 Third trimester 58.7 - 214.0 Postmenopausal 0.0 - 0.1 Performed By: #### P MADELINES #### [facility] [address] [place] [address] Dr. Josie Sanchez INSULINon 08-13-2022 Insulin 12.5 uIU/mL Normal 2.6-24.9 [facility] Comment on above: Performed By: #### P REGQNT #### [facility] [address] [place] [address] Dr. Josie Sanchez CBC AUTO DIFFon 08-12-2022 BASO # 0.0 103/ul Normal 0.0-0.1 [facility] Comment on above: Performed By: #### KIAN VALERIORO #### [facility] [address] [place] [address] Dr. Josie Sanchez Basophils/100 WBC (Bld) 0.2 % Normal 0.2-2.0 [facility] Comment on above: Performed By: #### KIAN VALERIORO #### [facility] [address] [place] [address] Dr. Josie Sanchez EO # 0.1 103/ul Normal 0.0-0.7 [facility] Comment on above: Performed By: #### Clyde MEANS UMICRO #### [facility] [address] [place] [address] Dr. Josie Sanchez Eosinophils/100 WBC (Bld) 0.8 % Critically low 0.9-7. 0 [facility] Comment on above: Performed By: #### ROBERT VALERIOICRO #### [facility] [address] [place] [address] Dr. Josie Sanchez Erythrocyte distribution width (RBC) [Ratio] 14.0 % Normal 11.0-15.0 [facility] Comment on above: Performed By: #### Clyde MEANS UMICRO #### [facility] [address] [place] [address] Dr. Josie Sanchez Hematocrit (Bld) [Volume fraction] 39.5 % Normal 36.0-48.0 [facility] Comment on above: Performed By: #### Clyde MEANS UMICRO #### [facility] [address] [place] [address] Dr. Josie Sanchez Hemoglobin (Bld) [Mass/Vol] 12.7 g/dL Normal 12.0-16.0 [facility] Comment on above: Performed By: #### Clyde MEANS UMICRO #### [facility] [address] [place] [address] Dr. Josie Sanchez IG # 0.02 10e3/ul Normal 0.00-0.03 [facility] Comment on above: Performed By: #### Clyde MEANS UMICRO #### [facility] [address] [place] [address] Dr. Josie Sanchez IG % 0.3 % Normal 0.0-0.5 [facility] Comment on above: Performed By: #### Clyde MEANS UMICRO #### [facility] [address] [place] [address] Dr. Josie Sanchez LYMPH # 1.6 103/ul Normal 1.2-3.8 [facility] Comment on above: Performed By: #### Clyde MEANS UMICRO #### [facility] [address] [place] [address] Dr. Josie Sanchez Lymphocytes/100 WBC (Bld) 26.9 % Normal 20.5-60.0 [facility] Comment on above: Performed By: #### Clyde MEANS UMICRO #### [facility] [address] [place] [address] Dr. Josie Sanchez MANUAL DIFF REQ NO Normal [facility] Comment on above: Performed By: #### Clyde MEANS UMICRO #### [facility] [address] [place] [address] Dr. Josie Sanchez MCH (RBC) [Entitic mass] 28.3 pg Normal 26.7-34.0 [facility] Comment on above: Performed By: #### Clyde MEANS UMICRO #### [facility] [address] [place] [address] Dr. Josie Sanchez MCHC (RBC) [Mass/Vol] 32.2 g/dL Normal 29.9-35.2 [facility] Comment on above: Performed By: #### ROBERT VALERIOICRO #### [facility] [address] [place] [address] Dr. Josie Sanchez MCV (RBC) [Entitic vol] 88.0 fL Normal 81.0-99.0 [facility] Comment on above: Performed By: #### ROBERT VALERIOICRO #### [facility] [address] [place] [address] Dr. Josie Sanchez MONO # 0.4 103/ul Normal 0.3-0.8 [facility] Comment on above: Performed By: #### Clyde MEANS UMICRO #### [facility] [address] [place] [address] Dr. Josie Sanchez Monocytes/100 WBC (Bld) 7.1 % Normal 1.7-12.0 [facility] Comment on above: Performed By: #### Clyde MEANS UMICRO #### [facility] [address] [place] [address] Dr. Josie Sanchez NEUT # 3.8 103/ul Normal 1.4-6.5 [facility] Comment on above: Performed By: #### Clyde MEANS UMICRO #### [facility] [address] [place] [address] Dr. Josie Sanchez Neutrophils/100 WBC (Bld) 64.7 % Normal 43.0-75.0 [facility] Comment on above: Performed By: #### Clyde MEANS UMICRO #### [facility] [address] [place] [address] Dr. Josie Sanchez Platelet mean volume (Bld) [Entitic vol] 10.1 fL Normal 9.5-13.5 [facility] Comment on above: Performed By: #### Clyde MEANS UMICRO #### [facility] [address] [place] [address] Dr. Josie Sanchez PLT 211 103/ul Normal 150-450 [facility] Comment on above: Performed By: #### RILEY VALERIO #### [facility] [address] [place] [address] Dr. Josie Sanchez RBC 4.49 106/ul Normal 4.20-5.40 [facility] Comment on above: Performed By: #### RILEY VALERIO #### [facility] [address] [place] [address] Dr. Josie Sanchez WBC 5.9 103/ul Normal 4.0-11.0 [facility] Comment on above: Performed By: #### RILEY VALERIO #### [facility] [address] [place] [address] Dr. Josie Sanchez FREE THYROXINE INDEX T7on FTI 2.63 Normal 1.30-4.50 [facility] Comment on above: Performed By: #### RILEY VALERIO #### [facility] [address] [place] [address] Dr. Josie Sanchez T3U 35.0 % Normal 30.0-39.0 [facility] Comment on above: Performed By: #### RILEY VALERIO #### [facility] [address] [place] [address] Dr. Josie Sanchez T4 [Mass/Vol] 7.50 ug/dL Normal 4.80-13.90 [facility] Comment on above: Performed By: #### RILEY VALERIO #### [facility] [address] [place] [address] Dr. Josie Sanchez GLYCOHEMOGLOBIN A1Con 2022 ADA RECOMMENDATION SEE BELOW Normal [facility] Comment on above: Result Comment: ADA RECOMMENDED LIMIT 4.0 - 6.0 ADA THERAPEUTIC TARGET < 7.0 ACTION SUGGESTED > 7.0 Performed By: #### RILEY VALERIO #### [facility] [address] [place] [address] Dr. Josie Sanchez Glucose [Mass/Vol] 111 mg/dL Normal [facility] Comment on above: Performed By: #### RILEY VALERIO #### [facility] [address] [address] [address] Josie Sanchez HbA1c (Bld) [Mass fraction] 5.5 % Normal 4.5-6.2 [facility] Comment on above: Performed By: #### E RILEY MEANS #### [facility] [address] [address] [address] Josie Sanchez IRONon 08-12-2022 Iron [Mass/Vol] 40.0 ug/dL Critically low 50.0-170.0 [facility] Comment on above: Performed By: #### P REGQNT #### [facility] [address] [address] [address] Josie Sanchez LIPID PROFILEon 08-12-2022 CHOL-HDL RATIO NORM SEE BELOW Normal [facility] Comment on above: Result Comment: 3.3 - 4.4 LOW RISK 4.4 - 7.1 AVERAGE RISK 7.1 - 11.0 MODERATE RISK >11.0 HIGH RISK Performed By: #### P REGQNT #### [facility] [address] [address] [address] Josie Sanchez Cholesterol [Mass/Vol] 183 mg/dL Normal <=200 [address] [facility] Comment on above: Performed By: #### P REGQNT #### [facility] [address] [address] [address] Josie Sanchez Cholesterol in HDL [Mass/Vol] 40 mg/dL Normal 40-60 [facility] Comment on above: Performed By: #### P REGQNT #### [facility] [address] [address] [address] Josie Sanchez Cholesterol in LDL [Mass/Vol] 131.0 mg/dL Normal [facility] Comment on above: Performed By: #### P REGQNT #### [facility] [address] [address] [address] Josie Sanchez Cholesterol.total/Choleste rol in HDL [Mass ratio] 4.6 {ratio} Normal [facility] Comment on above: Performed By: #### P REGQNT #### [facility] [address] [address] [address] Josie Sanchez HDL NORMAL > or = 60 mg/dl - LOW CARDIOVASCULAR RISK <40 mg/dl - HIGH CARDIOVASCULAR RISK Normal [facility] Comment on above: Performed By: #### P REGQNT #### [facility] [address] [place] [address] Dr. Josie Sanchez LDL CALC NORMAL SEE BELOW Normal [facility] Comment on above: Result Comment: <100 mg/dl OPTIMAL 100 - 129 mg/dl NEAR OR ABOVE OPTIMAL 130 - 159 mg/dl BORDERLINE HIGH 160 - 189 mg/dl HIGH >190 mg/dl VERY HIGH Performed By: #### P REGQNT #### [facility] [address] [address] [address] Josie Sanchez Triglyceride [Mass/Vol] 60 mg/dL Normal <=150 T [facility] Comment on above: Performed By: #### P REGQNT #### [facility] [address] [place] [address] Dr. Josie Sanchez VLDL CALC 12.0 mg/dL Normal [facility] Comment on above: Performed By: #### P REGQNT #### [facility] [address] [place] [address] Dr. Josie Sanchez PROF 14(COMP METB)on 023 Albumin [Mass/Vol] 3.7 g/dL Normal 3.4-5.0 [facility] Comment on above: Performed By: #### RILEY VALERIO #### [facility] [address] [place] [address] Dr. Josie Sanchez Albumin/Globulin [Mass ratio] 0.9 {ratio} Normal [facility] Comment on above: Performed By: #### KIAN VALERIORO #### [facility] [address] [place] [address] Dr. Josie Sanchez ALP [Catalytic activity/Vol] 131 U/L Critically high 46-116 [facility] Comment on above: Performed By: #### KIAN VALERIORO #### [facility] [address] [place] [address] Dr. Josie Sanchez ALT [Catalytic activity/Vol] 23 U/L Normal 14-59 [facility] Comment on above: Performed By: #### RILEY VALERIO #### [facility] [facility] [address] [place] [address] Dr. Josie Sanchez Anion gap [Moles/Vol] 10.5 mmol/L Normal [facility] Comment on above: Performed By: #### RILEY VALERIO #### [facility] [address] [place] [address] Dr. Josie Sanchez AST [Catalytic activity/Vol] 18 U/L Normal 15-37 [facility] Comment on above: Performed By: #### RILEY VALERIO #### [facility] [address] [place] [address] Dr. Josie Sanchez Bilirubin [Mass/Vol] 0.7 mg/dL Normal 0.2-1.0 [facility] Comment on above: Performed By: #### RILEY VALERIO #### [facility] [address] [place] [address] Dr. Josie Sanchez Calcium [Mass/Vol] 8.7 mg/dL Normal 8.5-10.1 [facility] Comment on above: Performed By: #### RILEY VALERIO #### [facility] [address] [place] [address] Dr. Josie Sanchez Chloride [Moles/Vol] 103 mmol/L Normal 98-107 [facility] Comment on above: Performed By: #### RILEY VALERIO #### [facility] [address] [place] [address] Dr. Josie Sanchez CO2 [Moles/Vol] 30.1 mmol/L Normal 21.0-32.0 [facility] Comment on above: Performed By: #### RILEY VALERIO #### [facility] [address] [place] [address] Dr. Josie Sanchez Creatinine [Mass/Vol] 0.66 mg/dL Normal 0.55-1.02 [facility] Comment on above: Performed By: #### KIAN VALERIORO #### [facility] [address] [place] [address] Dr. Josie Sanchez EGFR-AF MARTINIQUAIS >60 Normal >=60 [facility] Comment on above: Performed By: #### RILEY VALERIO #### [facility] [address] [place] [address] Dr. Josie Sanchez EGFR-NON AF MARTINIQUAIS >60 Normal >=60 [facility] Comment on above: Performed By: #### KIAN VALERIORO #### [facility] [address] [place] [address] Dr. Josie Sanchez Globulin (S) [Mass/Vol] 4.3 g/dL Normal [facility] Comment on above: Performed By: #### RILEY VALERIO #### [facility] [address] [place] [address] Dr. Josie Sanchez Glucose [Mass/Vol] 90 mg/dL Normal 74-106 [facility] Comment on above: Performed By: #### RILEY VALERIO #### [facility] [address] [place] [address] Dr. Josie Sanchez Potassium [Moles/Vol] 3.6 mmol/L Normal 3.5-5.1 [facility] Comment on above: Performed By: #### KIAN VALERIORO #### [facility] [address] [place] [address] Dr. Josie Sanchez Protein [Mass/Vol] 8.0 g/dL Normal 6.4-8.2 [facility] Comment on above: Performed By: #### KIAN VALERIORO #### [facility] [address] [place] [address] Dr. Josie Sanchez Sodium [Moles/Vol] 140 mmol/L Normal 136-145 [facility] Comment on above: Performed By: #### KIAN VALERIORO #### [facility] [address] [place] [address] Dr. Josie Sanchez Urea nitrogen [Mass/Vol] 12.0 mg/dL Normal 7.0-18.0 [facility] Comment on above: Performed By: #### RILEY VALERIO #### [facility] [address] [place] [address] Dr. Josie Sanchez Urea nitrogen/Creatinine [Mass ratio] 18.2 mg/mg Normal [facility] Comment on above: Performed By: #### RILEY VALEIRO #### [facility] [address] [place] [address] Dr. Josie Sanchez TSHon 08-12-2022 TSH 3.070 uIU/mL Normal 0.358-3.740 [facility] Comment on above: Performed By: #### P REGQNT #### [facility] [address] [place] [address] Dr. Josie Sanchez PREG QUANT HCGon 06-22-2022 HCG QUANT 1 mIU/mL Normal [facility] Comment on above: Performed By: #### KIAN VALERIORO #### [facility] [address] [place] [address] Dr. Josie Sanchez HCG RANGE SEE BELOW Normal [facility] Comment on above: Result Comment: 5-50 0.2-1 WEEK 50-500 1-2 WEEKS 100-5,000 2-3 WEEKS 500-10,000 3-4 WEEKS 1,000-50,000 4-5 WEEKS 10,000-100,000 5-6 WEEKS 15,000-200,000 6-8 WEEKS 10,000-100,000 2-3 MONTHS Performed By: #### RILEY VALERIO #### [facility] [address] [place] [address] Dr. Josie Sanchez PREG QUANT HCGon 05-20-2022 HCG QUANT 6 mIU/mL Normal [facility] Comment on above: Performed By: #### P REGQNT #### [facility] [address] [place] [address] Dr. Josie Sanchez HCG RANGE SEE BELOW Normal [facility] Comment on above: Result Comment: 5-50 0.2-1 WEEK 50-500 1-2 WEEKS 100-5,000 2-3 WEEKS 500-10,000 3-4 WEEKS 1,000-50,000 4-5 WEEKS 10,000-100,000 5-6 WEEKS 15,000-200,000 6-8 WEEKS 10,000-100,000 2-3 MONTHS Performed By: #### P REGQNT #### [facility] [address] [place] [address] Dr. Josie Sanchez PREG QUANT HCGon 05-14-2022 HCG QUANT 26 mIU/mL Normal [facility] Comment on above: Performed By: #### P REGQNT #### [facility] [address] [place] [address] Dr. Josie Sanchez HCG RANGE SEE BELOW Normal [facility] Comment on above: Result Comment: 5-50 0.2-1 WEEK 50-500 1-2 WEEKS 100-5,000 2-3 WEEKS 500-10,000 3-4 WEEKS 1,000-50,000 4-5 WEEKS 10,000-100,000 5-6 WEEKS 15,000-200,000 6-8 WEEKS 10,000-100,000 2-3 MONTHS Performed By: #### P REGQNT #### [facility] [address] [place] [address] Dr. Josie Sanchez CBC AUTO DIFFon 05-08-2022 BASO # 0.0 103/ul Normal 0.0-0.1 [facility] Comment on above: Performed By: #### RILEY VALERIO #### [facility] [address] [place] [address] Dr. Josie Sanchez Basophils/100 WBC (Bld) 0.2 % Normal 0.2-2.0 [facility] Comment on above: Performed By: #### RILEY VALERIO #### [facility] [address] [place] [address] Dr. Josie Sanchez EO # 0.0 103/ul Normal 0.0-0.7 [facility] Comment on above: Performed By: #### RILEY VALERIO #### [facility] [address] [place] [address] Dr. Josie Sanchez Eosinophils/100 WBC (Bld) 0.5 % Critically low 0.9-7. 0 [facility] Comment on above: Performed By: #### KIAN VALERIORO #### [facility] [address] [place] [address] Dr. Josie Sanchez Erythrocyte distribution width (RBC) [Ratio] 12.8 % Normal 11.0-15.0 [facility] Comment on above: Performed By: #### KIAN VALERIORO #### [facility] [address] [place] [address] Dr. Josie Sanchez Hematocrit (Bld) [Volume fraction] 41.0 % Normal 36.0-48.0 [facility] Comment on above: Performed By: #### KIAN VALERIORO #### [facility] [address] [place] [address] Dr. Josie Sanchez Hemoglobin (Bld) [Mass/Vol] 13.4 g/dL Normal 12.0-16.0 [facility] Comment on above: Performed By: #### KIAN VALERIORO #### [facility] [address] [place] [address] Dr. Josie Sanchez IG # 0.02 10e3/ul Normal 0.00-0.03 [facility] Comment on above: Performed By: #### KIAN VALERIORO #### [facility] [address] [place] [address] Dr. Josie Sanchez IG % 0.3 % Normal 0.0-0.5 [facility] Comment on above: Performed By: #### KIAN VALERIORO #### [facility] [address] [place] [address] Dr. Josie Sanchez LYMPH # 1.6 103/ul Normal 1.2-3.8 [facility] Comment on above: Performed By: #### KIAN VALERIORO #### [facility] [address] [place] [address] Dr. Josie Sanchez Lymphocytes/100 WBC (Bld) 27.1 % Normal 20.5-60.0 [facility] Comment on above: Performed By: #### KIAN VALERIORO #### [facility] [address] [place] [address] Dr. Josie Sanchez MANUAL DIFF REQ NO Normal [facility] Comment on above: Performed By: #### Clyde MEANS UMICRO #### [facility] [address] [place] [address] Dr. Josie Sanchez MCH (RBC) [Entitic mass] 29.3 pg Normal 26.7-34.0 [facility] Comment on above: Performed By: #### Clyde MEANS UMICRO #### [facility] [address] [place] [address] Dr. Josie Sanchez MCHC (RBC) [Mass/Vol] 32.7 g/dL Normal 29.9-35.2 [facility] Comment on above: Performed By: #### Clyde MEANS UMICRO #### [facility] [address] [place] [address] Dr. Josie Sanchez MCV (RBC) [Entitic vol] 89.5 fL Normal 81.0-99.0 [facility] Comment on above: Performed By: #### Clyde MEANS UMICRO #### [facility] [address] [place] [address] Dr. Josie Sanchez MONO # 0.5 103/ul Normal 0.3-0.8 [facility] Comment on above: Performed By: #### Clyde MEANS UMICRO #### [facility] [address] [place] [address] Dr. Josie Sanchez Monocytes/100 WBC (Bld) 8.6 % Normal 1.7-12.0 [facility] Comment on above: Performed By: #### Clyde MEANS UMICRO #### [facility] [address] [place] [address] Dr. Josie Sanchez NEUT # 3.7 103/ul Normal 1.4-6.5 [facility] Comment on above: Performed By: #### Clyde MEANS UMICRO #### [facility] [address] [place] [address] Dr. Josie Sanchez Neutrophils/100 WBC (Bld) 63.3 % Normal 43.0-75.0 [facility] Comment on above: Performed By: #### Clyde MEANS UMICRO #### [facility] [address] [address] [address] Josie Sanchez Platelet mean volume (Bld) [Entitic vol] 9.8 fL Normal 9.5-13.5 [facility] Comment on above: Performed By: #### Clyde MEANS, UMICRO #### [facility] [address] [address] [address] Josie Sanchez PLT 238 103/ul Normal 150-450 [facility] Comment on above: Performed By: #### Clyde MEANS, UMICRO #### [facility] [address] [place] [address] Dr. Josie Sanchez RBC 4.58 106/ul Normal 4.20-5.40 [facility] Comment on above: Performed By: #### Clyde MEANS, ICRO #### [facility] [address] [place] [address] Dr. Josie Sanchez WBC 5.8 103/ul Normal 4.0-11.0 [facility] Comment on above: Performed By: #### Clyde MEANS, ICRO #### [facility] [address] [place] [address] Dr. Josie Sanchez PREG QUANT HCGon 05-08-2022 HCG QUANT 2335 mIU/mL Normal [facility] Comment on above: Performed By: #### P REGQNT #### [facility] [address] [place] [address] Dr. Josie Sanchez HCG RANGE SEE BELOW Normal [facility] Comment on above: Result Comment: 5-50 0.2-1 WEEK 50-500 1-2 WEEKS 100-5,000 2-3 WEEKS 500-10,000 3-4 WEEKS 1,000-50,000 4-5 WEEKS 10,000-100,000 5-6 WEEKS 15,000-200,000 6-8 WEEKS 10,000-100,000 2-3 MONTHS Performed By: #### P REGQNT #### [facility] [address] [place] [address] Dr. Josie Sanchez CBC AUTO DIFFon 05-07-2022 BASO # 0.0 103/ul Normal 0.0-0.1 [facility] Comment on above: Performed By: #### RILEY VALERIO #### [facility] [address] [place] [address] Dr. Josie Sanchez Basophils/100 WBC (Bld) 0.2 % Normal 0.2-2.0 [facility] Comment on above: Performed By: #### KIAN VALERIORO #### [facility] [address] [place] [address] Dr. Josie Sanchez EO # 0.0 103/ul Normal 0.0-0.7 [facility] Comment on above: Performed By: #### RILEY VALERIO #### [facility] [address] [place] [address] Dr. Josie Sanchez Eosinophils/100 WBC (Bld) 0.3 % Critically low 0.9-7. 0 [facility] Comment on above: Performed By: #### KIAN VALERIORO #### [facility] [address] [place] [address] Dr. Josie Sanchez Erythrocyte distribution width (RBC) [Ratio] 12.8 % Normal 11.0-15.0 [facility] Comment on above: Performed By: #### RILEY VALERIO #### [facility] [address] [place] [address] Dr. Josie Sanchez Hematocrit (Bld) [Volume fraction] 41.2 % Normal 36.0-48.0 [facility] Comment on above: Performed By: #### KIAN VALERIORO #### [facility] [address] [place] [address] Dr. Josie Sanchez Hemoglobin (Bld) [Mass/Vol] 13.3 g/dL Normal 12.0-16.0 [facility] Comment on above: Performed By: #### KIAN VALERIORO #### [facility] [address] [place] [address] Dr. Josie Sanchez IG # 0.02 10e3/ul Normal 0.00-0.03 [facility] Comment on above: Performed By: #### E RUR, UMICRO #### [facility] [address] [place] [address] Dr. Josie Sanchez IG % 0.3 % Normal 0.0-0.5 [facility] Comment on above: Performed By: #### E YOSELINR, UMICRO #### [facility] [address] [place] [address] Dr. Josie Sanchez LYMPH # 1.0 103/ul Critically low 1.2-3.8 [facility] Comment on above: Performed By: #### E MIGUELANGEL, UMICRO #### [facility] [address] [place] [address] Dr. Josie Sanchez Lymphocytes/100 WBC (Bld) 15.5 % Critically low 20.5-6 0.0 [facility] Comment on above: Performed By: #### Clyde MEANS UMICRO #### [facility] [address] [place] [address] Dr. Josie Sanchez MANUAL DIFF REQ NO Normal [facility] Comment on above: Performed By: #### Clyde MEANS UMICRO #### [facility] [address] [place] [address] Dr. Josie Sanchez MCH (RBC) [Entitic mass] 28.9 pg Normal 26.7-34.0 [facility] Comment on above: Performed By: #### Clyde MEANS UMICRO #### [facility] [address] [place] [address] Dr. Josie Sanchez MCHC (RBC) [Mass/Vol] 32.3 g/dL Normal 29.9-35.2 [facility] Comment on above: Performed By: #### E RUJolie, UMICRO #### [facility] [address] [place] [address] Dr. Josie Sanchez MCV (RBC) [Entitic vol] 89.6 fL Normal 81.0-99.0 [facility] Comment on above: Performed By: #### E MIGUELANGEL, UMICRO #### [facility] [address] [place] [address] Dr. Josie Sanchez MONO # 0.4 103/ul Normal 0.3-0.8 [facility] Comment on above: Performed By: #### RILEY VALERIO #### [facility] [address] [place] [address] Dr. Josie Sanchez Monocytes/100 WBC (Bld) 6.2 % Normal 1.7-12.0 [facility] Comment on above: Performed By: #### KIAN VAELRIORO #### [facility] [address] [place] [address] Dr. Josie Sanchez NEUT # 5.0 103/ul Normal 1.4-6.5 [facility] Comment on above: Performed By: #### KIAN VALERIORO #### [facility] [address] [place] [address] Dr. Josie Sanchez Neutrophils/100 WBC (Bld) 77.5 % Critically high 43.0- 75.0 [facility] Comment on above: Performed By: #### KIAN VALERIORO #### [facility] [address] [place] [address] Dr. Josie Sanchez Platelet mean volume (Bld) [Entitic vol] 10.2 fL Normal 9.5-13.5 [facility] Comment on above: Performed By: #### KIAN VALERIORO #### [facility] [address] [place] [address] Dr. Josie Sanchez PLT 237 103/ul Normal 150-450 [facility] Comment on above: Performed By: #### KIAN VALERIORO #### [facility] [address] [place] [address] Dr. Josie Sanchez RBC 4.60 106/ul Normal 4.20-5.40 [facility] Comment on above: Performed By: #### KIAN VALERIORO #### [facility] [address] [place] [address] Dr. Josie Sanchez WBC 6.5 103/ul Normal 4.0-11.0 [facility] Comment on above: Performed By: #### KIAN VALERIORO #### [facility] [address] [place] [address] Dr. Josie Sanchez Covid-19 PCR (CVDTB)on 04-10 SARS-CoV-2 (COVID-19) RNA ALEXA+probe Ql (Unsp spec) Not detected Normal NOT DETECTED [facility] Comment on above: Result Comment: This test is not yet approved or cleared by the [place] FDA. When there are no FDA-approved or cleared tests available, and other criteria are met, FDA can make tests available under an emergency access mechanism called an Emergency Use Authorization (EUA). The EUA for this test is supported by the Rehabilitation Therapy Aide of Health and Human Service's (HHS's) declaration [...] SARS-CoV-2. Performed By: #### RILEY VALERIO #### [facility] [address] [place] [address] Dr. Josie Sanchez PREG QUANT HCGon 05-07-2022 HCG QUANT 2745 mIU/mL Normal [facility] Comment on above: Performed By: #### RILEY VALERIO #### [facility] [address] [place] [address] Dr. Josie Sanchez HCG RANGE SEE BELOW Normal [facility] Comment on above: Result Comment: 5-50 0.2-1 WEEK 50-500 1-2 WEEKS 100-5,000 2-3 WEEKS 500-10,000 3-4 WEEKS 1,000-50,000 4-5 WEEKS 10,000-100,000 5-6 WEEKS 15,000-200,000 6-8 WEEKS 10,000-100,000 2-3 MONTHS Performed By: #### RILEY VALERIO #### [facility] [address] [place] [address] Dr. Josie Sanchez US PREG TVon 05-05-2022 [...] by: PEREZ DURBIN Date: 2022-05-05 14:42 Normal [facility] ER URINE PROFILEon 2 Bilirubin Ql (U) Negative Normal NEGATIVE [facility] Comment on above: Performed By: #### RILEY VALERIO #### [facility] [address] [place] [address] Dr. Josie Sanchez Clarity (U) CLEAR Normal CLEAR [facility] Comment on above: Performed By: #### RILEY VALERIO #### [facility] [address] [place] [address] Dr. Josie Sanchez Color (U) YELLOW Normal YELLOW [facility] Comment on above: Performed By: #### RILEY VLAERIO #### [facility] [address] [place] [address] Dr. Josie WU A micrscopic examination will be performed if indicated. Normal [facility] Comment on above: Performed By: #### RILEY VALERIO #### [facility] [address] [place] [address] Dr. Josie Sanchez Glucose Ql (U) Negative Normal NEGATIVE [facility] Comment on above: Performed By: #### ROBERT VALERIOICRO #### [facility] [address] [address] [address] Josie Sanchez Hemoglobin Ql (U) SMALL Abnormal NEGATIVE [facility] Comment on above: Performed By: #### Clyde MEANS UMICRO #### [facility] [address] [place] [address] Dr. Josie Sanchez Ketones Ql (U) 15 mg/dl Abnormal NEGATIVE [facility] Comment on above: Performed By: #### ROBERT VALERIOICRO #### [facility] [address] [place] [address] Dr. Josie Sanchez LEUKOCYTES Negative Normal NEGATIVE [facility] Comment on above: Performed By: #### Clyde MEANS UMICRO #### [facility] [address] [place] [address] Dr. Josie Sanchez Nitrite Ql (U) Negative Normal NEGATIVE [facility] Comment on above: Performed By: #### KIAN VALERIORO #### [facility] [address] [place] [address] Dr. Josie Sanchez pH (U) 6.0 [pH] Normal 5-9 [facility] Comment on above: Performed By: #### KIAN VALERIORO #### [facility] [address] [place] [address] Dr. Josie Sanchez SPEC GRAVITY 1.020 Normal 1.005-<=1.02 5 [facility] Comment on above: Performed By: #### KIAN VALERIORO #### [facility] [address] [place] [address] Dr. Josie Sanchez UA PROTEIN Negative Normal NEGATIVE/ TRACE [facility] Comment on above: Performed By: #### KIAN VALERIORO #### [facility] [address] [place] [address] Dr. Josie Sanchez UR MICRO IND INDICATED Normal [facility] Comment on above: Performed By: #### KIAN VALERIORO #### [facility] [address] [place] [address] Dr. Josie Sanchez Urobilinogen Qn (U) 0.2 {Fabricio'U}/dL Normal 0.2 - 1. 0 [facility] Comment on above: Performed By: #### KIAN VALERIORO #### [facility] [address] [place] [address] Dr. Josie Sanchez URINE MICROSCOPIC ONLYon BACTERIA NONE SEEN Normal NONE SEEN [facility] Comment on above: Performed By: #### Clyde MEANS UMICRO #### [facility] [address] [place] [address] Dr. Josie Sanchez Bacteria identified Cx Nom (U) NOT INDICATED Normal [facility] Comment on above: Performed By: #### Clyde MEANS UMICRO #### [facility] [address] [place] [address] Dr. Josie Sanchez CAST NONE SEEN Normal NONE SEEN [facility] Comment on above: Performed By: #### Clyde MEANS UMICRO #### [facility] [address] [place] [address] Dr. Josie Sanchez Crystals LM Nom (Urine sed) NONE SEEN Normal NONE SEEN [facility] Comment on above: Performed By: #### Clyde MEANS UMICRO #### [facility] [address] [place] [address] Dr. Josie Sanchez Epithelial cells LM Ql (Urine sed) NONE SEEN Normal NONE SEEN /RARE [facility] Comment on above: Performed By: #### Clyde MEANS UMICRO #### [facility] [address] [place] [address] Dr. Josie Sanchez MUCOUS MODERATE Abnormal NONE SEEN [facility] Comment on above: Performed By: #### Clyde MEANS UMICRO #### [facility] [address] [place] [address] Dr. Josie Sanchez RBC 0-2 Normal 0-2 [facility] Comment on above: Performed By: #### Clyde MEANS UMICRO #### [facility] [address] [place] [address] Dr. Josie Sanchez WBC NONE SEEN Normal NONE SEEN [facility] Comment on above: Performed By: #### RILEY VALERIO #### [facility] [address] [place] [address] Dr. Josie Sanchez PREG QUANT HCGon 04-20-2022 HCG QUANT 70327 mIU/mL Normal [facility] Comment on above: Performed By: #### KIAN VALERIORO #### [facility] [address] [place] [address] Dr. Josie Sanchez HCG RANGE SEE BELOW Normal [facility] Comment on above: Result Comment: 5-50 0.2-1 WEEK 50-500 1-2 WEEKS 100-5,000 2-3 WEEKS 500-10,000 3-4 WEEKS 1,000-50,000 4-5 WEEKS 10,000-100,000 5-6 WEEKS 15,000-200,000 6-8 WEEKS 10,000-100,000 2-3 MONTHS Performed By: #### KIAN VALERIORO #### [facility] [address] [place] [address] Dr. Josie Sanchez HCG-BETA SUBUNIT QUANTon hCG,Beta Subunit,Qnt,Serum <1 Normal [facility] Comment on above: Result Comment: Fema le (Non-) 0 - 5 (Postmenopausal) 0 - 8 . Female () Weeks of Gestation 3 6 - 71 4 10 - 750 5 217 - 7138 6 158 - [phone] 7 [phone] 8 [phone] -[phone] 9 42100 -[phone] 10 [phone] -[phone] 12 51888 -[phone] 14 02887 - 87184 15 [phone] - 23858 16 [phone] - [phone] 17 2325 - 53569 18 [phone] - [phone] [place] ECLIA methodology Performed By: #### KIAN VALERIORO #### [facility] [address] [place] [address] Dr. Josie Sanchez CBC AUTO DIFFon 02-18-2022 BASO # 0.0 103/ul Normal 0.0-0.1 [facility] Comment on above: Performed By: #### Sel[place] BC #### [facility] [address] [place] [address] Dr. Josie Sanchez Basophils/100 WBC (Bld) 0.2 % Normal 0.2-2.0 [facility] Comment on above: Performed By: #### C BC #### [facility] [address] [place] [address] Dr. Josie Sanchez EO # 0.1 103/ul Normal 0.0-0.7 [facility] Comment on above: Performed By: #### C BC #### [facility] [address] [place] [address] Dr. Josie Sanchez Eosinophils/100 WBC (Bld) 0.8 % Critically low 0.9-7. 0 [facility] Comment on above: Performed By: #### C BC #### [facility] [address] [place] [address] Dr. Josie Sanchez Erythrocyte distribution width (RBC) [Ratio] 12.5 % Normal 11.0-15.0 [facility] Comment on above: Performed By: #### C BC #### [facility] [address] [place] [address] Dr. Joise Sanchez Hematocrit (Bld) [Volume fraction] 39.5 % Normal 36.0-48.0 [facility] Comment on above: Performed By: #### C BC #### [facility] [address] [place] [address] Dr. Josie Sanchez Hemoglobin (Bld) [Mass/Vol] 13.0 g/dL Normal 12.0-16.0 [facility] Comment on above: Performed By: #### C BC #### [facility] [address] [place] [address] Dr. Josie Sanchez IG # 0.02 10e3/ul Normal 0.00-0.03 [facility] Comment on above: Performed By: #### C BC #### [facility] [address] [place] [address] Dr. Josie Sanchez IG % 0.3 % Normal 0.0-0.5 [facility] Comment on above: Performed By: #### C BC #### [facility] [address] [place] [address] Dr. Josie Sanchez LYMPH # 1.5 103/ul Normal 1.2-3.8 [facility] Comment on above: Performed By: #### C BC #### [facility] [address] [place] [address] Dr. Josie Sanchez Lymphocytes/100 WBC (Bld) 22.9 % Normal 20.5-60.0 [facility] Comment on above: Performed By: #### C BC #### [facility] [address] [place] [address] Dr. Josie Sanchez MANUAL DIFF REQ NO Normal [facility] Comment on above: Performed By: #### C BC #### [facility] [address] [place] [address] Dr. Joise Sanchez MCH (RBC) [Entitic mass] 30.3 pg Normal 26.7-34.0 [facility] Comment on above: Performed By: #### C BC #### [facility] [address] [place] [address] Dr. Josie Sanchez MCHC (RBC) [Mass/Vol] 32.9 g/dL Normal 29.9-35.2 [facility] Comment on above: Performed By: #### C BC #### [facility] [address] [place] [address] Dr. Josie Sanchez MCV (RBC) [Entitic vol] 92.1 fL Normal 81.0-99.0 [facility] Comment on above: Performed By: #### C BC #### [facility] [address] [place] [address] Dr. Josie Sanchez MONO # 0.4 103/ul Normal 0.3-0.8 [facility] Comment on above: Performed By: #### C BC #### [facility] [address] [place] [address] Dr. Josie Sanchez Monocytes/100 WBC (Bld) 5.7 % Normal 1.7-12.0 [facility] Comment on above: Performed By: #### C BC #### [facility] [address] [place] [address] Dr. Josie Sanchez NEUT # 4.6 103/ul Normal 1.4-6.5 [facility] Comment on above: Performed By: #### C BC #### [facility] [address] [place] [address] Dr. Josie Sanchez Neutrophils/100 WBC (Bld) 70.1 % Normal 43.0-75.0 [facility] Comment on above: Performed By: #### C BC #### [facility] [address] [place] [address] Dr. Josie Sanchez Platelet mean volume (Bld) [Entitic vol] 10.0 fL Normal 9.5-13.5 [facility] Comment on above: Performed By: #### C BC #### [facility] [address] [place] [address] Dr. Josie Sanchez PLT 242 103/ul Normal 150-450 [facility] Comment on above: Performed By: #### C BC #### [facility] [address] [place] [address] Dr. Josie Sanchez RBC 4.29 106/ul Normal 4.20-5.40 [facility] Comment on above: Performed By: #### C BC #### [facility] [address] [place] [address] Dr. Josie Sanchez WBC 6.5 103/ul Normal 4.0-11.0 [facility] Comment on above: Performed By: #### C BC #### [facility] [address] [place] [address] Dr. Josie Sanchez LIPID PROFILEon 02-18-2022 CHOL-HDL RATIO NORM SEE BELOW Normal [facility] Comment on above: Result Comment: 3.3 - 4.4 LOW RISK 4.4 - 7.1 AVERAGE RISK 7.1 - 11.0 MODERATE RISK >11.0 HIGH RISK Performed By: #### L IPID, TSH #### [facility] [address] [place] [address] Dr. Josie Sanchez Cholesterol [Mass/Vol] 182 mg/dL Normal <=200 Th [facility] Comment on above: Performed By: #### L IPID, TSH #### [facility] [address] [place] [address] Dr. Josie Sanchez Cholesterol in HDL [Mass/Vol] 40 mg/dL Normal 40-60 [facility] Comment on above: Performed By: #### L IPID, TSH #### [facility] [address] [address] [address] Josie Sanchez Cholesterol in LDL [Mass/Vol] 122.4 mg/dL Normal [facility] Comment on above: Performed By: #### L IPID, TSH #### [facility] [address] [address] [address] Josie Sanchez Cholesterol.total/Choleste rol in HDL [Mass ratio] 4.6 {ratio} Normal [facility] Comment on above: Performed By: #### L IPID, TSH #### [facility] [address] [address] [address] Josie Sanchez HDL NORMAL > or = 60 mg/dl - LOW CARDIOVASCULAR RISK <40 mg/dl - HIGH CARDIOVASCULAR RISK Normal [facility] Comment on above: Performed By: #### L IPID, TSH #### [facility] [address] [address] [address] Josie Sanchez LDL CALC NORMAL SEE BELOW Normal [facility] Comment on above: Result Comment: <100 mg/dl OPTIMAL 100 - 129 mg/dl NEAR OR ABOVE OPTIMAL 130 - 159 mg/dl BORDERLINE HIGH 160 - 189 mg/dl HIGH >190 mg/dl VERY HIGH Performed By: #### L IPID, TSH #### [facility] [address] [address] [address] Josie Sanchez Triglyceride [Mass/Vol] 98 mg/dL Normal <=150 T [facility] Comment on above: Performed By: #### L IPID, TSH #### [facility] [address] [address] [address] Josie Sanchez VLDL CALC 19.6 mg/dL Normal [facility] Comment on above: Performed By: #### L IPID, TSH #### [facility] [address] [address] [address] Josie Sanchez PROTIMEon 02-18-2022 INR Coag (PPP) [Relative time] 1.10 {INR} Normal [facility] Comment on above: Performed By: #### P REGQNT #### [facility] [address] [place] [address] Dr. Josie Sanchez INR GUIDELINES SEE BELOW Normal [facility] Comment on above: Result Comment: PAULINA RED INR: 2.0 - 3.0 CONDITIONS NOT LISTED BELOW 2.5 - 3.5 FOR PROSTHETIC HEART VALVE REPLACEMENT 2.5 - 3.5 RECURRENT THROMBOSIS Performed By: #### P REGQNT #### [facility] [address] [place] [address] Dr. Josie Sanchez PT Coag (PPP) [Time] 11.8 s Critically high 9.0-11.6 [facility] Comment on above: Performed By: #### P REGQNT #### [facility] [address] [place] [address] Dr. Josie Sanchez PTTon 02-18-2022 aPTT Coag (Bld) [Time] 29.8 s Normal 22.3-36.2 [facility] Comment on above: Performed By: #### P REGQNT #### [facility] [address] [place] [address] Dr. Josie Sanchez TSHon 02-18-2022 TSH 3.410 uIU/mL Normal 0.358-3.740 [facility] Comment on above: Performed By: #### L IPID, TSH #### [facility] [address] [place] [address] Dr. Josie Sanchez US PELVIS AND TRANSVAGon [...] by: PEREZ DURBIN Date: 2022-02-18 18:56 Normal [facility] Nursing Note - Woundon 08-15 Nursing Note - Wound [id number] 18530#3.00CD:127 Normal [facility] Coding Summary.on 08-08-2020 Coding Summary. CODING DATE: 08/08/2020 FINAL [facility] STATUS: Home (Routine DC) PAYOR: Medicaid EAPG [...] Jeannie Nur Date Saved: 08/08/2020 10:[address] [facility] Formson 08-08-2020 Forms [id number] 0459#1.00CD:127 Normal [facility] Home Health Recordson 2019 Home Health Records [id number] 3EFD#1.00CD:127 [facility] Ambulatory Clinical Summaryo n 07-26-2020 Ambulatory Clinical Summary {2s-51-2p-61-26-59 -86-0t-86-05-b0-03 -33-60-e2-c7}CD:[address] [facility] Home Health Recordson 2019 Home Health Records [id number] 0EC7#1.00CD:127 [facility] Progress Note - Woundon 07-09 Progress Note - Wound [id number] [id number] 69896#2.00CD:127 [facility] Consent for Treatmenton 07-09 Consent for Treatment [id number] AFAA#1.00CD:127 [facility] Multi-Wound Charton 07-25-20 20 Multi-Wound Chart [id number] 87633#1.00CD:127 [facility] Nursing Assessment - Woundon 07-25-2020 Nursing Assessment - Wound 170.71.121.11 7.202 [id number] 42353#1.00CD:127 [facility] Physician Orderon 07-25-2020 Physician Order [id number] 02760#1.00CD:127 [facility] Home Health Recordson 2019 Home Health Records [id number] 3741#1.00CD:127 [facility] Home Health Recordson 2019 Home Health Records [id number] 3554#1.00CD:127 [facility] Coding Summary.on 07-12-2020 Coding Summary. CODING DATE: 07/12/2020 FINAL [facility] STATUS: Home (Routine DC) PAYOR: Medicaid EAPG [...] Bledsoe CphT Date Saved: 07/12/2020 03:[address] [facility] Coding Summary. CODING DATE: 07/12/2020 FINAL [facility] STATUS: Home (Routine DC) PAYOR: Medicaid EAPG [...] Bledsoe CphT Date Saved: 07/12/2020 03:[address] [facility] Multi-Wound Charton 07-12-20 20 Multi-Wound Chart [id number] 54806#1.00CD:127 [facility] Nursing Assessment - Woundon 07-12-2020 Nursing Assessment - Wound 170.71.121.11 7. [id number] 46101#1.00CD:127 [facility] Nursing Note - Woundon 07-12 Nursing Note - Wound [id number] [id number] 27557#1.00CD:127 [facility] Consent for Procedure/Surger yon 07-11-2020 Consent for Procedure/Surgery 149.45.122.18.2020 [id number] 15066#1.00CD:127 [facility] Consent for Treatmenton Consent for Treatment [id number] [id number] B36A#1.00CD:127 [facility] Home Health Recordson 2019 Home Health Records [id number] D3A1#1.00CD:127 [facility] Home Health Records [id number] B2A4#1.00CD:127 [facility] Physician Orderon 07-11-2020 Physician Order [id number] 72450#1.00CD:127 [facility] Progress Note - Woundon Progress Note - Wound [id number] [id number] 31456#1.00CD:127 [facility] Nursing Note - Woundon 07-02 Nursing Note - Wound 170.71.121.117.202 [id number] 67480#3.00CD:127 [facility] Consent for Procedure/Surger yon 06-28-2020 Consent for Procedure/Surgery 149.45.122.6. [id number] 0200#1.00CD:127 [facility] Consent to Photographon 06-10 Consent to Photograph 149.45.122.6. [id number] 0326#1.00CD:127 [facility] HIPAA Privacy Documentson HIPAA Privacy Documents [id number] [id number] 0158#1.00CD:127 [facility] Nursing Note - Woundon 06-28 Nursing Note - Wound 149.45.122.6. [id number] 0289#1.00CD:127 [facility] Nursing Note - Wound 149.45.122.6. [id number] 0217#1.00CD:127 [facility] Consent for Treatmenton 06-09 Consent for Treatment 159.140.128.34.202 [id number] EEDA#1.00CD:127 [facility] Multi-Wound Charton 06-27-20 20 Multi-Wound Chart [id number] [id number] 96415#1.00CD:127 [facility] Nursing Assessment - Woundon 06-27-2020 Nursing Assessment - Wound 170.71.121.11 7.202 [id number] 28059#1.00CD:127 [facility] Physician Orderon 06-27-2020 Physician Order [id number] [id number] 27712#2.00CD:127 [facility] Progress Note - Woundon 06-09 Progress Note - Wound 170.71.121.117.202 [id number] 54285#1.00CD:127 [facility] HIPAA Privacy Documentson HIPAA Privacy Documents 170.71.121.100.2 02 [id number] 391189#1.00CD:127 [facility] Outside Records Officeon Outside Records Office 170.71.121.100.20 2 [id number] 915044#1.00CD:127 [facility] Vital Signs Date Time Vital Sign Value Performing Clinician Facility 11-20-2022 15:05-0400 Body height 152.4 cm Gloria Jackelyn Other [facility] Other 11-20-2022 15:05-0400 Body mass index (BMI) [Ratio] 11.72 kg/m2 Gloria Jackelyn Other [facility] Other 11-20-2022 15:05-0400 Body temperature 97.7 [degF] Gloria Hayden Other [facility] Other 11-20-2022 15:05-0400 Body weight 27.22 kg Gloria Jackelyn Other [facility] Other 11-20-2022 15:05-0400 Respiratory rate 18 /min Gloria Hayden Other [facility] Other 11-20-2022 15:05 SaO2% (BldA) [Mass fraction] 97 % Gloria Hayden Other [facility] Other Encounters Encounter Date Encounter Type [...] 11-20-2022 End: 11-20-2022 ambulatory Gloria Hayden Other [facility] Other Start: 11-20-2022 Office outpatient vi [...] laboratory examination DR NORBERT VEGA . [facility] Start: 05-08-2022 End: 05-08-[address] NORBERT [...] Phone: Payers Date Payer Category Payer Medicaid [id number] 2022 Medicaid [facility] [employer] [place] [id number] 2022-Present [address] [place] [address] [id number] [id number] 1985 Unknown [id number] 2.16.840.1.234537.3.579.2.593 1985 Unknown [id number] 2.16.840.1.586374.3.579.2.593 1985 Unknown [id number] 2.16.840.1.403342.3.579.2.593 1985 Unknown [id number] 2.16.840.1.874530.3.579.2.593 1985 Unknown [id number] 2.16.840.1.495671.3.579.2.593 1985 Unknown [id number] 2.16.840.1.099219.3.579.2.593 1985 Unknown [id number] 2.16.840.1.634701.3.579.2.593 1985 Unknown [id number] 2.16.840.1.421032.3.579.2.593 1985 Unknown [id number] 2.16.840.1.510138.3.579.2.593 1985 Unknown [id number] 2.16.840.1.690948.3.579.2.593 1985 Unknown [id number] 2.16.840.1.954157.3.579.2.593 1985 Unknown [id number] 2.16.840.1.828579.3.579.2.593 1985 Unknown [id number] 2.16.840.1.439885.3.579.2.593 1985 Unknown [id number] 2.16.840.1.161075.3.579.2.593 1985 Unknown [id number] 2.16.840.1.797350.3.579.2.593 1985 Unknown [id number] 2.16.840.1.707177.3.579.2.593 1985 Unknown [id number] 2.16.840.1.655758.3.579.2.593 1985 Unknown [id number] 2.16.840.1.205757.3.579.2.593 1985 Unknown [id number] 2.16.840.1.976014.3.579.2.593 1985 Unknown [id number] 2.16.840.1.581801.3.579.2.593 1985 Unknown [id number] 2.16.840.1.056721.3.579.2.1259 1985 Unknown [id number] 2.16.840.1.652066.3.579.2.1259 1985 Unknown [id number] 2.16.840.1.978801.3.579.2.1259 1985 Unknown [id number] 2.16.840.1.571433.3.579.2.1259 1959 Self-pay 1959 Unknown [id number] Social History Date Type Detail Facility Unknown if ever smoked [facility] Other Start: 12-21-2022 Sex Assigned At [facility] Other Start: 12-21-2022 Tobacco smoking status [facility] Never smoked tobacco [facility] Start: 12-21-2022 Tobacco use and exposure Smokeless tobacco non-user [facility] Start: 08-23-2023 Alcohol intake Current drinke r of alcohol (finding) [facility] Start: 12-21-2022 History of Social function [facility] Start: 01-14-2023 Alcohol Comment caffeine intak e: occasionally [facility] Start: 1985 Sex Assigned At Not on file [facility] Evaluation note 11-20-2022 Note Date [...] Contact dermatitis home care material was printed [facility] Other Clinical Note 05-08-2022 Note Date [...] by: PEREZ DURBIN Date: 2022-05-08 18:03 [facility] Clinical Note 05-08-2022 Note Date & Type Note Facility 05-08-2022 Note OPERATIVE NOTE OPERATION DATE: 05/08/2022 PROCEDURE: Suction D AND C. PREOPERATIVE DIAGNOSIS: 1. Suspected molar during first trimester. 2. Uterine mass approximately 4.5 cm. POSTOPERATIVE DIAGNOSIS: 1. Suspected molar during first trimester. 2. Uterine mass approximately 4.5 cm. 3. Significant large amounts of retained products. SURGEON: Norbert Vega D.O. PRESS FEEDER: None. BLOOD LOSS: 100 mL. URINE OUTPUT: [...] products of conception were removed using a 9-Ugandan suction curette tip. Excellent hemostasis was noted. [...] Surgical History D&C 2021 Hospitalization History child [facility] Other Summary Purpose Family History No Family History Records FoundNo Family History Records FoundNo Family History Records Found Advance Directives No Advanced Directives Records FoundNo Advanced Directives Records FoundNo Advanced Directives Records Found Additional Source Comments INFORMATION SOURCE (unrecogn ized section and content) DATE CREATED AUTHOR 08/15/2020 [facility] DATE CREATED AUTHOR AUTHOR'S ORGANIZ ATION 12/22/2022 [facility] DATE CREATED AUTHOR AUTHOR'S ORGANIZ ATION 12/07/2023 [facility] dical Specialists EPIC REASON FOR VISIT (unrecogniz ed section and content) HEAT RASH Care Teams (unrecognized sec tion and content) [employer] Mechan[employer] Relationship Specialty Start Date End Date Quoc Watts MD [address] [place] [address] PCP - General Family Medicine 12/28/22 FOR [...] BE BASED ON THE PRIMARY CLINICAL RECORDS. [employer] provides no warranty or guarantee of the accuracy or completeness of information in this document.
[2024-06-19 13:27] LABS: HCG Quantitative 3108 mIU/mL
[2024-06-21 12:30] LABS: HCG Quantitative 4062 mIU/mL
[2024-06-27 15:55] LABS: HCG Quantitative 17904 mIU/mL
== END 2024-08-08 23:59 | disposition home or self-care (01) ==
LOC: LAB 12:13
PROVIDERS: PCP Family Medicine; Visit Provider Obstetrics & Gynecology
DX: Z87.59 Personal history of other complications of pregnancy, childbirth and the puerperium (principal)
CPT/HCPCS: 36415; 84702

== ENCOUNTER 2024-07-27 09:34 | Outpatient (OUT) | payer MEDICAID, SELFPAY ==
--- NOTE | 2024-07-27 09:37 | US_ITS ---
[address] [address] Patient Name: LB ANTONIO MRN: [id number] date: 1985 Sex: F Assigned Patient Location: US Current Patient Location: Accession/Order Number: [id number] Exam Date: 07/27/2024 09:40 Report Date: 07/27/2024 11:07 At the request of: NORBERT WILLIS Procedure: US OB <= 14 weeks fetus EXAMINATION: US OB <= 14 weeks fetus HISTORY: Missed Menses COMPARISON: No relevant comparison available. FINDINGS: [place] intrauterine gestation Gestational sac: 4.37 cm, 9 weeks 6 days CRL: 4.19 cm, 11 weeks 1 day Yolk sac: 4 mm Heart rate: 169 beats minute Cervix: Closed, 3.4 cm Clinical age: 10 weeks 5 days Clinical DILCIA: 02/17/2025 Ultrasound age: 11 weeks 1 day Ultrasound DILCIA: 02/14/2025 US/US OB <= 14 weeks fetus IMPRESSION: Viable [place] intrauterine gestation measuring 11 weeks 1 day Electronically authenticated by: PEREZ DURBIN Date: 07/27/2024 11:07
--- OUTSIDE RECORDS SUMMARY | 2024-07-27 09:38 | XMS_ITS | CCD ---
Author Organization 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 Name Role Phone Gloria Hayden Unavailable RAY [...] HOY ., DR KUMARI Primary Care Unavailable [place], DR PEREZ Luther Consulting Unavailable SILVIA ., DR TOUSSAINT Attending Unavailable SILVIA ., DR TOUSSAINT Consulting Unavailable HOY ., DR KUMARI Primary Care Unavailable [place], DR PEREZ Luther Consulting Unavailable SILVIA ., DR TOUSSAINT Admitting Unavailable SILVIA ., DR TOUSSAINT Attending Unavailable SILVIA ., DR TOUSSAINT Consulting Unavailable SILVIA ., DR TOUSSAINT Admitting Unavailable HOY ., DR KUMARI Primary Care Unavailable [place], DR PEREZ Luther Consulting Unavailable SILVIA ., DR TOUSSAINT Attending Unavailable SILVIA ., DR TOUSSAINT Consulting Unavailable MONIQUE COLEMAN Consulting Unavaila ble SURESH, MONIQUE ONEILL Consulting Unava ilable CLARA REECE Consulting Unavailable SILVIA ., DR TOUSSAINT Admitting Unavailable SILVIA ., DR TOUSSAINT Consulting Unavailable HOY ., DR KUMARI Primary Care Unavailable SILVIA ., DR TOUSSIANT Attending Unavailable SILVIA ., DR TOUSSAINT Consulting Unavailable HOY ., DR KUMARI Primary Care Unavailable SILVIA ., DR TOUSSAINT Attending Unavailable SILVIA ., DR TOUSSAINT Admitting Unavailable Quoc Watts MD Primary Care Provider NORBERT VEGA Attending Unavailable SILVIA, NORBERT Attending Unavailable SILVIA, NORBERT Attending Unavailable SILVIA, NORBERT Attending Unavailable Allergies Allergy Classification Reported Allergen(s) Allergy Type Date of Onset Reaction(s) Facility (1 source) Penicillin G Drug Allergy throat swelling [facility] Other (1 source) Cefaclor Drug Allergy [facility] (2 sources) Penicillins Drug allergy (disorder) 01-26-20 16 [facility] (4 sources) Penicillins Drug Intolerance 10-21-19 19 Unknown [facility] Work Phone: Medications Current Medications Medication Drug Class(es) Dates Sig (Normalized) Sig (Original) aspirin 81 mg delayed release oral tablet (5 sources) Platelet Aggregation Inhibitor, Nonsteroidal Anti-inflammatory Drug take 1 tablet by mouth in the morning aspirin 81 MG EC tablet Take 81 mg by mouth in the morning. Active cholecalciferol 0.025 mg oral capsule (5 sources) Vitamin D cholecalciferol (Vitamin D-3) 25 MCG (1000 UT) capsule Take by mouth Daily. Active take 1 tablet by jackie th [...] 1 tablet Orally Once a day Active Multivitamin preparation (1 source) take 1 tablet by mouth once daily Multivitamin - 1 tablet Orally Once a day Active polysaccharide iron complex 391 mg oral capsule (1 source) Start: 09-15-19 24 End: 12-24-19 24 take 1 capsule by mouth in the morning iron polysaccharides (ProFe) 391.3 (180 Fe) MG capsule Indications: Anemia, unspecified type Take 1 capsule (391.3 mg) by mouth in the morning. 100 capsule 0 09/15/2023 12/24/2023 Active predniSONE 20 mg oral tablet (1 source) Start: 11-21-19 23 take 1 tablet by mouth every twelve hours predniSONE 20 MG 1 tablet Orally bid for 5 day(s) Nov, Active (1 source) Active Progesterone 200 MG suppository (3 sources) Start: 06-13-20 End: 07-13-20 Progesterone 200 MG suppository Indications: History of miscarriage Insert 200 mg into the vagina at bedtime Insert suppository vaginally every night at bedtime until 12 weeks gestation 30 suppository 2 06/13/2024 07/13/2024 Active terconazole 4 mg/ml vaginal cream (1 source) Azole Antifungal Start: 06-23-20 End: 06-30-20 terconazole (Terazol 7) 0.4 % vaginal cream Indications: Yeast infection Insert 1 applicator into the vagina at bedtime for 7 days 45 g 06/23/2024 06/30/2024 Active Vitamin C 500 MG (1 source) Vitamin C 500 MG as directed Orally Active Completed/Discontinued Medications Medication Drug Class(es) Dates Sig (Normalized) Sig (Original) ascorbic acid 100 mg oral tablet (4 sources) Vitamin C End: 06-28-2024 Ascorbic Acid (vitamin C) 100 MG tablet Take by mouth Daily. 06/28/2024 Discontinued (Other) ferrous sulfate 325 mg oral tablet (4 sources) End: 06-28-2024 ferrous sulfate 325 (65 Fe) MG tablet Take by mouth Daily with meals. 06/28/2024 Discontinued (Other) 24 hr metFORMIN hydrochloride 500 mg extended release oral tablet (9 sources) Biguanide Start: 12-27-2023 End: 06-28-2024 take 1 tablet by mouth once daily at dinner metFORMIN XR (Glucophage-XR) 500 MG 24 hr tablet Indications: Insulin resistance take 1 tablet by mouth once daily with EVENING MEAL 30 tablet 11 12/27/2023 06/28/2024 Discontinued (Other) Start: 06-09-2023 take 1 tablet by jackie th once daily at dinner metFORMIN XR (Glucophage-XR) 500 MG 24 hr tablet take 1 tablet by mouth once daily with EVENING MEAL 0 06/09/2023 Active End: 06-28-2024 take 1 tablet by mouth at mealtime, then take 1 tablet by mouth every twenty-four hours metFORMIN, OSM, (Fortamet) 500 MG 24 hr tablet Take 500 mg by mouth in the evening. Take with meals. Do not crush, chew, or split. 06/28/2024 Discontinued (Other) take 1 tablet by jackie th every twenty-four hours metFORMIN HCl 500 MG 1 tablet with a meal Orally Once a day Active prasterone 10 mg oral capsule (4 sources) End: 06-28-2024 DHEA 10 MG capsule Take by mouth. 06/28/2024 Discontinued (Other) progesterone 100 mg oral capsule (3 sources) Progesterone Start: 10-14-2023 End: 10-13-2024 take 1 capsule by mouth once daily at bedtime progesterone 100 MG capsule Indications: Miscarriage Take 1 capsule (100 mg) by mouth at bedtime Start on day 19 of her cycle. 90 capsule 3 10/14/2023 06/28/2024 Discontinued (Other) simvastatin 40 mg oral tablet (9 sources) HMG-CoA Reductase Inhibitor Start: 06-09-2023 End: 06-28-2024 take 1 tablet by mouth at bedtime simvastatin (Zocor) 40 MG tablet Take 40 mg by mouth at bedtime. 06/09/2023 06/28/2024 Discontinued (Other) End: 06-28-2024 Simvastatin 20 MG/5ML suspen lashawn Simvastatin 06/28/2024 Discontinued (Other) take 1 tablet by jackie th every twenty-four hours Simvastatin 40 MG 1 tablet in the evening Orally Once a day Active Problems Active Problems Problem Classification Problem Date Documented Da te Episodic/Chronic Allergic reactions (1 source) Unspecified contact dermatitis, unspecified cause Episodic Anxiety disorders (4 sources) Generalized anxiety disorder; Translations: [Generalized anxiety disorder] [...] Test Name Value Interpretation Reference Range Facility [facility] PREG QUANT HCGon 024 HCG QUANTITATIVE 97248 mIU/mL [facility] Comment on above: 5-50 0.2-1 WEEK 50-500 1-2 WEEKS 100-5,000 2-3 WEEKS 500-10,000 3-4 WEEKS 1,000-50,000 4-5 WEEKS 10,000-100,000 5-6 WEEKS 15,000-200,000 6-8 WEEKS 10,000-100,000 2[facility] 024 HCG QUANTITATIVE 4062 mIU/mL [facility] Comment on above: 5-50 0.2-1 WEEK 50-500 1-2 WEEKS 100-5,000 2-3 WEEKS 500-10,000 3-4 WEEKS 1,000-50,000 4-5 WEEKS 10,000-100,000 5-6 WEEKS 15,000-200,000 6-8 WEEKS 10,000-100,000 2-[facility] PREG QUANT HCGon 024 HCG QUANTITATIVE 3108 mIU/mL [facility] Comment on above: 5-50 0.2-1 WEEK 50-500 1-2 WEEKS 100-5,000 2-3 WEEKS 500-10,000 3-4 WEEKS 1,000-50,000 4-5 WEEKS 10,000-100,000 5-6 WEEKS 15,000-200,000 6-8 WEEKS 10,000-100,000 2-[facility] [place] [facility] CBC WITH AUTO DIFFon BASOPHILS ABSOLUTE AUTO 0.0 [facility] Basophils/100 WBC (Bld) 0.2 % 0.2 - 2.0 % [facility] Eosinophils/100 WBC (Bld) 0.8 % Low 0.9 - 7.0 % [facility] Erythrocyte distribution width (RBC) [Ratio] 13.4 % 11.0 - 15.0 % [facility] Hematocrit (Bld) [Volume fraction] 42.3 % 36.0 - 48.0 % [facility] Hemoglobin (Bld) [Mass/Vol] 13.6 g/dL 12.0 - 16.0 g/dL [facility] IMMATURE GRANULOCYTES ABS AUTO 0.02 [facility] Immature granulocytes/100 WBC (Bld) 0.3 % 0.0 - 0.5 % [facility] Interpretation and review of laboratory results Abnormal [facility] LYMPHOCYTES ABSOLUTE AUTO 1.7 [facility] Lymphocytes/100 WBC (Bld) 26.5 % 20 .5 - 60.0 % [facility] MCH (RBC) [Entitic mass] 30.1 pg 26. 7 - 34.0 pg [facility] MCHC (RBC) [Mass/Vol] 32.2 g/dL 29.9 - 35.2 g/dL [facility] MCV (RBC) [Entitic vol] 93.6 fL 81.0 - 99.0 fL [facility] MONOCYTES ABSOLUTE AUTO 0.5 [facility] Monocytes/100 WBC (Bld) 7.3 % 1.7 - 12.0 % [facility] NEUTROPHILS ABSOLUTE AUTO 4.3 [facility] Neutrophils/100 WBC (Bld) 64.9 % 43 .0 - 75.0 % [facility] Platelet mean volume (Bld) [Entitic vol] 10.8 fL 9.5 - 13.5 fL [facility] EO # 0.1 [facility] PLT 220 [facility] TB RBC 4.52 [facility] TB WBC 6.5 [facility] PROGESTERONEon 12-19-2022 Progesterone 9.6 ng/mL Normal [facility] Comment on above: Result Comment: Foll icular phase 0.1 - 0.9 Luteal phase 1.8 - 23.9 Ovulation phase 0.1 - 12.0 First trimester 11.0 - 44.3 Second trimester 25.4 - 83.3 Third trimester 58.7 - 214.0 Postmenopausal 0.0 - 0.1 Performed By: #### P DAXA #### [facility] [address] [place] [address] Dr. Josie Sanchez PROGESTERONEon 11-19-2022 Progesterone 6.3 ng/mL Normal [facility] Comment on above: Result Comment: Foll icular phase 0.1 - 0.9 Luteal phase 1.8 - 23.9 Ovulation phase 0.1 - 12.0 First trimester 11.0 - 44.3 Second trimester 25.4 - 83.3 Third trimester 58.7 - 214.0 Postmenopausal 0.0 - 0.1 Performed By: #### P DAXA #### [facility] [address] [address] [address] Josie Sanchez PREG QUANT HCGon 11-18-2022 HCG QUANT <1 Normal [facility] Comment on above: Performed By: #### P REGQNT #### [facility] [address] [place], [place] [address] Dr. Josie Sanchez HCG RANGE SEE BELOW Normal [facility] Comment on above: Result Comment: 5-50 0.2-1 WEEK 50-500 1-2 WEEKS 100-5,000 2-3 WEEKS 500-10,000 3-4 WEEKS 1,000-50,000 4-5 WEEKS 10,000-100,000 5-6 WEEKS 15,000-200,000 6-8 WEEKS 10,000-100,000 2-3 MONTHS Performed By: #### P REGQNT #### [facility] [id number] Josie Sanchez US PELVIS AND TRANSVAGon [...] of a yolk sac as noted by mining engineering technologist. No significant free pelvic fluid is [...] by: RENE MEYERS Date: 2022-11-16 18:09 Normal [facility] DHEA SERUMon 11-11-2022 Dehydroepiandrosterone (DHEA) 335 ng/dL Normal 31-701 [facility] Comment on above: Performed By: #### RILEY VALERIO #### [facility] [address] [place] [address] Dr. Josie Sanchez DHEA-SULFATEon 11-10-2022 DHEA-Sulfate 251.0 ug/dL Normal 57.3-279.2 [facility] Comment on above: Performed By: #### P REGQNT #### [facility] [address] [place] [address] Dr. Josie Sanchez ESTRADIOLon 11-10-2022 Estradiol 66.1 pg/mL Normal [facility] Comment on above: Result Comment: Adul t Female: Follicular phase 12.5 - 166.0 Ovulation phase 85.8 - 498.0 Luteal phase 43.8 - 211.0 Postmenopausal <6.0 - 54.7 1st trimester 215.0 - >4300.0 [facility] ECLIA methodology Performed By: #### RILEY VALERIO #### [facility] [address] [place] [address] Dr. Josie Sanchez FSHon 11-10-2022 FSH 6.9 mIU/mL Normal [facility] Comment on above: Result Comment: Adul t Female: Follicular phase 3.5 - 12.5 Ovulation phase 4.7 - 21.5 Luteal phase 1.7 - 7.7 Postmenopausal 25.8 - 134.8 Performed By: #### P REGQNT #### [facility] [address] [place] [address] Dr. Josie Sanchez LUTEINIZING HORMONE (LH)on 0 11-10-2022 LH 9.9 mIU/mL Normal [facility] Comment on above: Result Comment: Adul t Female: Follicular phase 2.4 - 12.6 Ovulation phase 14.0 - 95.6 Luteal phase 1.0 - 11.4 Postmenopausal 7.7 - 58.5 Performed By: #### RILEY VALERIO #### [facility] [address] [place] [address] Dr. Josie Sanchez CBC AUTO DIFFon 11-09-2022 BASO # 0.0 103/ul Normal 0.0-0.1 [facility] Comment on above: Performed By: #### RILEY VALERIO #### [facility] [address] [place] [address] Dr. Josie Sanchez Basophils/100 WBC (Bld) 0.3 % Normal 0.2-2.0 [facility] [place] [facility] Comment on above: Performed By: #### Clyde MEANS UMICRO #### [facility] [address] [place] [address] Dr. Josie Sanchez EO # 0.0 103/ul Normal 0.0-0.7 [facility] Comment on above: Performed By: #### ROBERT VALERIOICRO #### [facility] [address] [place] [address] Dr. Josie Sanchez Eosinophils/100 WBC (Bld) 0.5 % Critically low 0.9-7. 0 [facility] Comment on above: Performed By: #### KIAN VALERIORO #### [facility] [address] [place] [address] Dr. Josie Sanchez Erythrocyte distribution width (RBC) [Ratio] 13.2 % Normal 11.0-15.0 [facility] Comment on above: Performed By: #### KIAN VALERIORO #### [facility] [address] [place] [address] Dr. Josie Sanchez Hematocrit (Bld) [Volume fraction] 41.8 % Normal 36.0-48.0 [facility] Comment on above: Performed By: #### KIAN VALERIORO #### [facility] [address] [place] [address] Dr. Josie Sanchez Hemoglobin (Bld) [Mass/Vol] 13.7 g/dL Normal 12.0-16.0 [facility] Comment on above: Performed By: #### ROBERT VALERIOICRO #### [facility] [address] [place] [address] Dr. Josie Sanchez IG # 0.02 10e3/ul Normal 0.00-0.03 [facility] Comment on above: Performed By: #### KIAN VALERIORO #### [facility] [address] [place] [address] Dr. Josie Sanchez IG % 0.3 % Normal 0.0-0.5 [facility] Comment on above: Performed By: #### KIAN VALERIORO #### [facility] [address] [place] [address] Dr. Josie Sanchez LYMPH # 1.2 103/ul Normal 1.2-3.8 [facility] Comment on above: Performed By: #### KIAN VALERIORO #### [facility] [address] [place] [address] Dr. Josie Sanchez Lymphocytes/100 WBC (Bld) 18.4 % Critically low 20.5-6 0.0 [facility] Comment on above: Performed By: #### KIAN VALERIORO #### [facility] [address] [place] [address] Dr. Josie Sanchez MANUAL DIFF REQ NO Normal [facility] Comment on above: Performed By: #### KIAN VALERIORO #### [facility] [address] [place] [address] Dr. Josie Sanchez MCH (RBC) [Entitic mass] 29.5 pg Normal 26.7-34.0 [facility] Comment on above: Performed By: #### KIAN VALERIORO #### [facility] [address] [place] [address] Dr. Josie Sanchez MCHC (RBC) [Mass/Vol] 32.8 g/dL Normal 29.9-35.2 [facility] Comment on above: Performed By: #### KIAN VALERIORO #### [facility] [address] [place] [address] Dr. Josie Sanchez MCV (RBC) [Entitic vol] 89.9 fL Normal 81.0-99.0 [facility] [place] [facility] Comment on above: Performed By: #### ROBERT VALERIOICRO #### [facility] [address] [place] [address] Dr. Josie Sanchez MONO # 0.3 103/ul Normal 0.3-0.8 [facility] Comment on above: Performed By: #### KIAN VALERIORO #### [facility] [address] [place] [address] Dr. Josie Sanchez Monocytes/100 WBC (Bld) 5.1 % Normal 1.7-12.0 [facility] [place] [facility] Comment on above: Performed By: #### ROBERT VALERIOICRO #### [facility] [address] [place] [address] Dr. Josie Sanchez NEUT # 4.8 103/ul Normal 1.4-6.5 [facility] Comment on above: Performed By: #### ROBERT VALERIOICRO #### [facility] [address] [place] [address] Dr. Josie Sanchez Neutrophils/100 WBC (Bld) 75.4 % Critically high 43.0- 75.0 [facility] Comment on above: Performed By: #### ROBERT VALERIOICRO #### [facility] [address] [place] [address] Dr. Josie Sanchez Platelet mean volume (Bld) [Entitic vol] 9.8 fL Normal 9.5-13.5 [facility] Comment on above: Performed By: #### ROBERT VALERIOICRO #### [facility] [address] [place] [address] Dr. Josie Sanchez PLT 256 103/ul Normal 150-450 [facility] Comment on above: Performed By: #### ROBERT VALERIOICRO #### [facility] [address] [place] [address] Dr. Josie Sanchez RBC 4.65 106/ul Normal 4.20-5.40 [facility] Comment on above: Performed By: #### ROBERT VALERIOICRO #### [facility] [address] [place] [address] Dr. Josie Sanchez WBC 6.4 103/ul Normal 4.0-11.0 [facility] Comment on above: Performed By: #### Clyde MEANS UMICRO #### [facility] [address] [place] [address] Dr. Josie Sanchez FERRITINon 11-09-2022 Ferritin [Mass/Vol] 42.0 ng/mL Normal 6.2-137.0 [facility] Comment on above: Performed By: #### KIAN VALERIORO #### [facility] [address] [place] [address] Dr. Josie Sanchez FREE T4on 11-09-2022 Free T4 [Mass/Vol] 0.87 ng/dL Normal 0.76-1.46 [facility] Comment on above: Performed By: #### KIAN VALERIORO #### [facility] [address] [place] [address] Dr. Josie Sanchez GLYCOHEMOGLOBIN A1Con 2022 ADA RECOMMENDATION SEE BELOW Normal [facility] Comment on above: Result Comment: ADA RECOMMENDED LIMIT 4.0 - 6.0 ADA THERAPEUTIC TARGET < 7.0 ACTION SUGGESTED > 7.0 Performed By: #### RILEY VALERIO #### [facility] [address] [place] [address] Dr. Josie Sanchez Glucose [Mass/Vol] 100 mg/dL Normal [facility] Comment on above: Performed By: #### KIAN VALERIORO #### [facility] [address] [place] [address] Dr. Josie Sanchez HbA1c (Bld) [Mass fraction] 5.1 % Normal 4.5-6.2 [facility] Comment on above: Performed By: #### KIAN VALERIORO #### [facility] [address] [place] [address] Dr. Josie Sanchez PREG QUANT HCGon 11-09-2022 HCG QUANT <1 Normal [facility] Comment on above: Performed By: #### KIAN VALERIORO #### [facility] [address] [place] [address] Dr. Josie Sanchez HCG RANGE SEE BELOW Normal [facility] Comment on above: Result Comment: 5-50 0.2-1 WEEK 50-500 1-2 WEEKS 100-5,000 2-3 WEEKS 500-10,000 3-4 WEEKS 1,000-50,000 4-5 WEEKS 10,000-100,000 5-6 WEEKS 15,000-200,000 6-8 WEEKS 10,000-100,000 2-3 MONTHS Performed By: #### RILEY VALERIO #### [facility] [address] [place] [address] Dr. Josie Sanchez TSHon 11-09-2022 TSH 2.163 uIU/mL Normal 0.358-3.740 [facility] Comment on above: Performed By: #### RILEY VALERIO #### [facility] [address] [place] [address] Dr. Josie Sanchez PROGESTERONEon 08-29-2022 Progesterone 7.3 ng/mL Normal [facility] Comment on above: Result Comment: Foll icular phase 0.1 - 0.9 Luteal phase 1.8 - 23.9 Ovulation phase 0.1 - 12.0 First trimester 11.0 - 44.3 Second trimester 25.4 - 83.3 Third trimester 58.7 - 214.0 Postmenopausal 0.0 - 0.1 Performed By: #### P ROGES #### [facility] [address] [place] [address] Dr. Josie Sanchez INSULINon 08-13-2022 Insulin 12.5 uIU/mL Normal 2.6-24.9 [facility] Comment on above: Performed By: #### Roni REGQNT #### [facility] [address] [place] [address] Dr. Josie Sanchez CBC AUTO DIFFon 08-12-2022 BASO # 0.0 103/ul Normal 0.0-0.1 [facility] Comment on above: Performed By: #### RILEY VALERIO #### [facility] [address] [place] [address] Dr. Josie Sanchez Basophils/100 WBC (Bld) 0.2 % Normal 0.2-2.0 [facility] [place] [facility] Comment on above: Performed By: #### RILEY VALERIO #### [facility] [address] [place] [address] Dr. Josie Sanchez EO # 0.1 103/ul Normal 0.0-0.7 [facility] Comment on above: Performed By: #### RILEY VALERIO #### [facility] [address] [place] [address] Dr. Josie Sanchez Eosinophils/100 WBC (Bld) 0.8 % Critically low 0.9-7. 0 [facility] Comment on above: Performed By: #### RILEY VALERIO #### [facility] [address] [place] [address] Dr. Josie Sanchez Erythrocyte distribution width (RBC) [Ratio] 14.0 % Normal 11.0-15.0 [facility] Comment on above: Performed By: #### RILEY VALERIO #### [facility] [address] [place] [address] Dr. Josie Sanchez Hematocrit (Bld) [Volume fraction] 39.5 % Normal 36.0-48.0 [facility] Comment on above: Performed By: #### RILEY VALERIO #### [facility] [address] [place] [address] Dr. Josie Sanchez Hemoglobin (Bld) [Mass/Vol] 12.7 g/dL Normal 12.0-16.0 [facility] Comment on above: Performed By: #### RILEY VALERIO #### [facility] [address] [place] [address] Dr. Josie Sanchez IG # 0.02 10e3/ul Normal 0.00-0.03 [facility] Comment on above: Performed By: #### RILEY VALERIO #### [facility] [address] [place] [address] Dr. Josie Sanchez IG % 0.3 % Normal 0.0-0.5 [facility] Comment on above: Performed By: #### RILEY VALERIO #### [facility] [address] [place] [address] Dr. Josie Sanchez LYMPH # 1.6 103/ul Normal 1.2-3.8 [facility] Comment on above: Performed By: #### RILEY VALERIO #### [facility] [address] [place] [address] Dr. Josie Sanchez Lymphocytes/100 WBC (Bld) 26.9 % Normal 20.5-60.0 [facility] Comment on above: Performed By: #### Clyde MEANS, UMICRO #### [facility] [address] [place] [address] Dr. Josie Sanchez MANUAL DIFF REQ NO Normal [facility] Comment on above: Performed By: #### Clyde MEANS, UMICRO #### [facility] [address] [place] [address] Dr. Josie Sanchez MCH (RBC) [Entitic mass] 28.3 pg Normal 26.7-34.0 [facility] Comment on above: Performed By: #### Clyde MEANS, UMICRO #### [facility] [address] [place] [address] Dr. Josie Sanchez MCHC (RBC) [Mass/Vol] 32.2 g/dL Normal 29.9-35.2 [facility] Comment on above: Performed By: #### Clyde MENAS, UMICRO #### [facility] [address] [place] [address] Dr. Josie Sanchez MCV (RBC) [Entitic vol] 88.0 fL Normal 81.0-99.0 [facility] [place] [facility] Comment on above: Performed By: #### Clyde MEANS, UMICRO #### [facility] [address] [place] [address] Dr. Josie Sanchez MONO # 0.4 103/ul Normal 0.3-0.8 [facility] Comment on above: Performed By: #### Clyde MEANS, UMICRO #### [facility] [address] [place] [address] Dr. Josie Sanchez Monocytes/100 WBC (Bld) 7.1 % Normal 1.7-12.0 [facility] [place] [facility] Comment on above: Performed By: #### E MIGUELANGEL, UMICRO #### [facility] [address] [place] [address] Dr. Josie Sanchez NEUT # 3.8 103/ul Normal 1.4-6.5 [facility] Comment on above: Performed By: #### KIAN VALERIORO #### [facility] [address] [place] [address] Dr. Josie Sanchez Neutrophils/100 WBC (Bld) 64.7 % Normal 43.0-75.0 [facility] Comment on above: Performed By: #### ROBERT VALERIOICRO #### [facility] [address] [place] [address] Dr. Josie Sanchez Platelet mean volume (Bld) [Entitic vol] 10.1 fL Normal 9.5-13.5 [facility] Comment on above: Performed By: #### KIAN VALERIORO #### [facility] [address] [place] [address] Dr. Josie Sanchez PLT 211 103/ul Normal 150-450 [facility] Comment on above: Performed By: #### KIAN VALERIORO #### [facility] [address] [place] [address] Dr. Josie Sanchez RBC 4.49 106/ul Normal 4.20-5.40 [facility] Comment on above: Performed By: #### KIAN VALERIORO #### [facility] [address] [place] [address] Dr. Josie Sanchez WBC 5.9 103/ul Normal 4.0-11.0 [facility] Comment on above: Performed By: #### KIAN VALERIORO #### [facility] [address] [place] [address] Dr. Josie Sancehz FREE THYROXINE INDEX T7on FTI 2.63 Normal 1.30-4.50 [facility] Comment on above: Performed By: #### KIAN VALERIORO #### [facility] [address] [place] [address] Dr. Josie Sanchez T3U 35.0 % Normal 30.0-39.0 [facility] Comment on above: Performed By: #### KIAN VALERIORO #### [facility] [address] [place] [address] Dr. Josie Sanchez T4 [Mass/Vol] 7.50 ug/dL Normal 4.80-13.90 [facility] Comment on above: Performed By: #### RILEY VALERIO #### [facility] [address] [address] [address] Josie Sanchez GLYCOHEMOGLOBIN A1Con 2022 ADA RECOMMENDATION SEE BELOW Normal [facility] Comment on above: Result Comment: ADA RECOMMENDED LIMIT 4.0 - 6.0 ADA THERAPEUTIC TARGET < 7.0 ACTION SUGGESTED > 7.0 Performed By: #### RILEY VALERIO #### [facility] [address] [place] [address] Dr. Josie Sanchez Glucose [Mass/Vol] 111 mg/dL Normal [facility] Comment on above: Performed By: #### RILEY VALERIO #### [facility] [address] [place] [address] Dr. Josie Sanchez HbA1c (Bld) [Mass fraction] 5.5 % Normal 4.5-6.2 [facility] Comment on above: Performed By: #### RILEY VALERIO #### [facility] [address] [place] [address] Dr. Josie Sanchez IRONon 08-12-2022 Iron [Mass/Vol] 40.0 ug/dL Critically low 50.0-170.0 [facility] Comment on above: Performed By: #### P REGQNT #### [facility] [address] [place] [address] Dr. Josie Sanchez LIPID PROFILEon 08-12-2022 CHOL-HDL RATIO NORM SEE BELOW Normal [facility] Comment on above: Result Comment: 3.3 - 4.4 LOW RISK 4.4 - 7.1 AVERAGE RISK 7.1 - 11.0 MODERATE RISK >11.0 HIGH RISK Performed By: #### P REGQNT #### [facility] [address] [place] [address] Dr. Josie Sanchez Cholesterol [Mass/Vol] 183 mg/dL Normal <=200 [facility] Comment on above: Performed By: #### P REGQNT #### [facility] [address] [address] [address] Josie Sanchez Cholesterol in HDL [Mass/Vol] 40 mg/dL Normal 40-60 [facility] Comment on above: Performed By: #### P REGQNT #### [facility] [address] [address] [address] Josie Sanchez Cholesterol in LDL [Mass/Vol] 131.0 mg/dL Normal [facility] Comment on above: Performed By: #### P REGQNT #### [facility] [address] [address] [address] Josie Sanchez Cholesterol.total/Choleste rol in HDL [Mass ratio] 4.6 {ratio} Normal [facility] Comment on above: Performed By: #### P REGQNT #### [facility] [address] [place] [address] Dr. Josie Sanchez HDL NORMAL > or = 60 mg/dl - LOW CARDIOVASCULAR RISK <40 mg/dl - HIGH CARDIOVASCULAR RISK Normal [facility] Comment on above: Performed By: #### P REGQNT #### [facility] [address] [address] [address] Josie Sanchez LDL CALC NORMAL SEE BELOW Normal [facility] Comment on above: Result Comment: <100 mg/dl OPTIMAL 100 - 129 mg/dl NEAR OR ABOVE OPTIMAL 130 - 159 mg/dl BORDERLINE HIGH 160 - 189 mg/dl HIGH >190 mg/dl VERY HIGH Performed By: #### P REGQNT #### [facility] [address] [address] [address] Josie Sanchez Triglyceride [Mass/Vol] 60 mg/dL Normal <=150 T [facility] Comment on above: Performed By: #### P REGQNT #### [facility] [address] [place] [address] Dr. Josie Sanchez VLDL CALC 12.0 mg/dL Normal [facility] Comment on above: Performed By: #### P REGQNT #### [facility] [address] [address] [address] Josie Sanchez PROF 14(COMP METB)on 023 Albumin [Mass/Vol] 3.7 g/dL Normal 3.4-5.0 [facility] Comment on above: Performed By: #### RILEY VALERIO #### [facility] [address] [place] [address] Dr. Josie Sanchez Albumin/Globulin [Mass ratio] 0.9 {ratio} Normal [facility] Comment on above: Performed By: #### RILEY VALERIO #### [facility] [address] [place] [address] Dr. Josie Sanchez ALP [Catalytic activity/Vol] 131 U/L Critically high 46-116 [facility] Comment on above: Performed By: #### RILEY VALERIO #### [facility] [address] [place] [address] Dr. Josie Sanchez ALT [Catalytic activity/Vol] 23 U/L Normal 14-59 [facility] Comment on above: Performed By: #### RILEY VALERIO #### [facility] [address] [place] [address] Dr. Josie Sanchez Anion gap [Moles/Vol] 10.5 mmol/L Normal [facility] Comment on above: Performed By: #### RILEY VALERIO #### [facility] [address] [place] [address] Dr. Josie Sanchez AST [Catalytic activity/Vol] 18 U/L Normal 15-37 [facility] Comment on above: Performed By: #### RILEY VALERIO #### [facility] [address] [place] [address] Dr. Josie Sanchez Bilirubin [Mass/Vol] 0.7 mg/dL Normal 0.2-1.0 [facility] Comment on above: Performed By: #### RILEY VALERIO #### [facility] [address] [place] [address] Dr. Josie Sanchez Calcium [Mass/Vol] 8.7 mg/dL Normal 8.5-10.1 [facility] Comment on above: Performed By: #### RILEY VALERIO #### [facility] [address] [place] [address] Dr. Josie Sanchez Chloride [Moles/Vol] 103 mmol/L Normal 98-107 [facility] Comment on above: Performed By: #### Clyde MEANS, UMICRO #### [facility] [address] [place] [address] Dr. Josie Sanchez CO2 [Moles/Vol] 30.1 mmol/L Normal 21.0-32.0 [facility] Comment on above: Performed By: #### Clyde MEANS, UMICRO #### [facility] [address] [place] [address] Dr. Josie Sanchez Creatinine [Mass/Vol] 0.66 mg/dL Normal 0.55-1.02 [facility] Comment on above: Performed By: #### Clyde MEANS, UMICRO #### [facility] [address] [place] [address] Dr. Josie Sanchez EGFR-AF LIBYAN >60 Normal >=60 [facility] Comment on above: Performed By: #### Clyde MEANS, UMICRO #### [facility] [address] [place] [address] Dr. Josie Sanchez EGFR-NON AF LIBYAN >60 Normal >=60 [facility] Comment on above: Performed By: #### Clyde MEANS, UMICRO #### [facility] [address] [place] [address] Dr. Josie Sanchez Globulin (S) [Mass/Vol] 4.3 g/dL Normal [facility] Comment on above: Performed By: #### Clyde MEANS, UMICRO #### [facility] [address] [place] [address] Dr. Josie Sanchez Glucose [Mass/Vol] 90 mg/dL Normal 74-106 [facility] Comment on above: Performed By: #### Clyde MEANS, UMICRO #### [facility] [address] [place] [address] Dr. Josie Sanchez Potassium [Moles/Vol] 3.6 mmol/L Normal 3.5-5.1 [facility] Comment on above: Performed By: #### ROBERT VALERIOICRO #### [facility] [address] [place] [address] Dr. Josie Sanchez Protein [Mass/Vol] 8.0 g/dL Normal 6.4-8.2 [facility] Comment on above: Performed By: #### Clyde MEANS UMICRO #### [facility] [address] [place] [address] Dr. Josie Sanchez Sodium [Moles/Vol] 140 mmol/L Normal 136-145 [facility] Comment on above: Performed By: #### Clyde MEANS UMICRO #### [facility] [address] [place] [address] Dr. Josie Sanchez Urea nitrogen [Mass/Vol] 12.0 mg/dL Normal 7.0-18.0 [facility] Comment on above: Performed By: #### ROBERT VALERIOICRO #### [facility] [address] [place] [address] Dr. Josie Sanchez Urea nitrogen/Creatinine [Mass ratio] 18.2 mg/mg Normal [facility] Comment on above: Performed By: #### ROBERT VALERIOICRO #### [facility] [address] [place] [address] Dr. Josie Sanchez TSHon 08-12-2022 TSH 3.070 uIU/mL Normal 0.358-3.740 [facility] Comment on above: Performed By: #### P REGQNT #### [facility] [address] [place] [address] Dr. Josie Sanchez PREG QUANT HCGon 06-22-2022 HCG QUANT 1 mIU/mL Normal [facility] Comment on above: Performed By: #### Clyde MEANS UMICRO #### [facility] [address] [place] [address] Dr. Josie Sancehz HCG RANGE SEE BELOW Normal [facility] Comment on above: Result Comment: 5-50 0.2-1 WEEK 50-500 1-2 WEEKS 100-5,000 2-3 WEEKS 500-10,000 3-4 WEEKS 1,000-50,000 4-5 WEEKS 10,000-100,000 5-6 WEEKS 15,000-200,000 6-8 WEEKS 10,000-100,000 2-3 MONTHS Performed By: #### RILEY VALERIO #### [facility] [address] [place] [address] Dr. Josie Sanchez PREG QUANT HCGon 05-20-2022 HCG QUANT 6 mIU/mL Normal [facility] Comment on above: Performed By: #### P REGQNT #### [facility] [address] [place] [address] Dr. Josie Sanchez HCG RANGE SEE BELOW Normal [facility] Comment on above: Result Comment: 5-50 0.2-1 WEEK 50-500 1-2 WEEKS 100-5,000 2-3 WEEKS 500-10,000 3-4 WEEKS 1,000-50,000 4-5 WEEKS 10,000-100,000 5-6 WEEKS 15,000-200,000 6-8 WEEKS 10,000-100,000 2-3 MONTHS Performed By: #### P REGQNT #### [facility] [address] [place] [address] Dr. Josie Sanchez PREG QUANT HCGon 05-14-2022 HCG QUANT 26 mIU/mL Normal [facility] Comment on above: Performed By: #### P REGQNT #### [facility] [address] [place] [address] Dr. Josie Sanchez HCG RANGE SEE BELOW Normal [facility] Comment on above: Result Comment: 5-50 0.2-1 WEEK 50-500 1-2 WEEKS 100-5,000 2-3 WEEKS 500-10,000 3-4 WEEKS 1,000-50,000 4-5 WEEKS 10,000-100,000 5-6 WEEKS 15,000-200,000 6-8 WEEKS 10,000-100,000 2-3 MONTHS Performed By: #### P REGQNT #### [facility] [address] [place] [address] Dr. Josie Sanchez CBC AUTO DIFFon 05-08-2022 BASO # 0.0 103/ul Normal 0.0-0.1 [facility] Comment on above: Performed By: #### KIAN VALERIORO #### [facility] [address] [place] [address] Dr. Josie Sanchez Basophils/100 WBC (Bld) 0.2 % Normal 0.2-2.0 [facility] [place] [facility] Comment on above: Performed By: #### KIAN VALERIORO #### [facility] [address] [place] [address] Dr. Josie Sanchez EO # 0.0 103/ul Normal 0.0-0.7 [facility] Comment on above: Performed By: #### KIAN VALERIORO #### [facility] [address] [place] [address] Dr. Josie Sanchez Eosinophils/100 WBC (Bld) 0.5 % Critically low 0.9-7. 0 [facility] Comment on above: Performed By: #### KIAN VALERIORO #### [facility] [address] [place] [address] Dr. Josie Sanchez Erythrocyte distribution width (RBC) [Ratio] 12.8 % Normal 11.0-15.0 [facility] Comment on above: Performed By: #### KIAN VALERIORO #### [facility] [address] [place] [address] Dr. Josie Sanchez Hematocrit (Bld) [Volume fraction] 41.0 % Normal 36.0-48.0 [facility] Comment on above: Performed By: #### KIAN VALERIORO #### [facility] [address] [place] [address] Dr. Josie Sanchez Hemoglobin (Bld) [Mass/Vol] 13.4 g/dL Normal 12.0-16.0 [facility] Comment on above: Performed By: #### KIAN VALERIORO #### [facility] [address] [place] [address] Dr. Josie Sanchez IG # 0.02 10e3/ul Normal 0.00-0.03 [facility] Comment on above: Performed By: #### KIAN VALERIORO #### [facility] [address] [place] [address] Dr. Josie Sanchez IG % 0.3 % Normal 0.0-0.5 [facility] Comment on above: Performed By: #### KIAN VALERIORO #### [facility] [address] [place] [address] Dr. Josie Sanchez LYMPH # 1.6 103/ul Normal 1.2-3.8 [facility] Comment on above: Performed By: #### ROBERT VALERIOICRO #### [facility] [address] [place] [address] Dr. Josie Sanchez Lymphocytes/100 WBC (Bld) 27.1 % Normal 20.5-60.0 [facility] Comment on above: Performed By: #### Clyde MEANS UMICRO #### [facility] [address] [place] [address] Dr. Josie Sanchez MANUAL DIFF REQ NO Normal [facility] Comment on above: Performed By: #### ROBERT VALERIOICRO #### [facility] [address] [place] [address] Dr. Josie Sanchez MCH (RBC) [Entitic mass] 29.3 pg Normal 26.7-34.0 [facility] Comment on above: Performed By: #### ROBERT VALERIOICRO #### [facility] [address] [place] [address] Dr. Josie Sanchez MCHC (RBC) [Mass/Vol] 32.7 g/dL Normal 29.9-35.2 [facility] Comment on above: Performed By: #### Clyde MEANS UMICRO #### [facility] [address] [place] [address] Dr. Josie Sanchez MCV (RBC) [Entitic vol] 89.5 fL Normal 81.0-99.0 [facility] [place] [facility] Comment on above: Performed By: #### Clyde MEANS UMICRO #### [facility] [address] [place] [address] Dr. Josie Sanchez MONO # 0.5 103/ul Normal 0.3-0.8 [facility] Comment on above: Performed By: #### KIAN VALERIORO #### [facility] [address] [place] [address] Dr. Josie Sanchez Monocytes/100 WBC (Bld) 8.6 % Normal 1.7-12.0 [facility] [place] [facility] Comment on above: Performed By: #### ROBERT VALERIOICRO #### [facility] [address] [place] [address] Dr. Josie Sanchez NEUT # 3.7 103/ul Normal 1.4-6.5 [facility] Comment on above: Performed By: #### ROBERT VALERIOICRO #### [facility] [address] [place] [address] Dr. Josie Sanchez Neutrophils/100 WBC (Bld) 63.3 % Normal 43.0-75.0 [facility] Comment on above: Performed By: #### ROBERT VALERIOICRO #### [facility] [address] [place] [address] Dr. Josie Sanchez Platelet mean volume (Bld) [Entitic vol] 9.8 fL Normal 9.5-13.5 [facility] Comment on above: Performed By: #### KIAN VALERIORO #### [facility] [address] [place] [address] Dr. Josie Sanchez PLT 238 103/ul Normal 150-450 [facility] Comment on above: Performed By: #### KIAN VALERIORO #### [facility] [address] [place] [address] Dr. Josie Sanchez RBC 4.58 106/ul Normal 4.20-5.40 [facility] Comment on above: Performed By: #### ROBERT VALERIOICRO #### [facility] [address] [place] [address] Dr. Josie Sanchez WBC 5.8 103/ul Normal 4.0-11.0 [facility] Comment on above: Performed By: #### ROBERT VALERIOICRO #### [facility] [address] [place] [address] Dr. Josie Sanchez PREG QUANT HCGon 05-08-2022 HCG QUANT 2335 mIU/mL Normal [facility] Comment on above: Performed By: #### P REGQNT #### [facility] [address] [place] [address] Dr. Josie Sanchez HCG RANGE SEE BELOW Normal [facility] Comment on above: Result Comment: 5-50 0.2-1 WEEK 50-500 1-2 WEEKS 100-5,000 2-3 WEEKS 500-10,000 3-4 WEEKS 1,000-50,000 4-5 WEEKS 10,000-100,000 5-6 WEEKS 15,000-200,000 6-8 WEEKS 10,000-100,000 2-3 MONTHS Performed By: #### P REGQNT #### [facility] [address] [place] [address] Dr. Josie Sanchez CBC AUTO DIFFon 05-07-2022 BASO # 0.0 103/ul Normal 0.0-0.1 [facility] Comment on above: Performed By: #### RILEY VALERIO #### [facility] [address] [place] [address] Dr. Josie Sanchez Basophils/100 WBC (Bld) 0.2 % Normal 0.2-2.0 [facility] [place] [facility] Comment on above: Performed By: #### RILEY VALERIO #### [facility] [address] [place] [address] Dr. Josie Sanchez EO # 0.0 103/ul Normal 0.0-0.7 [facility] Comment on above: Performed By: #### RILEY VALERIO #### [facility] [address] [place] [address] Dr. Josie Sanchez Eosinophils/100 WBC (Bld) 0.3 % Critically low 0.9-7. 0 [facility] Comment on above: Performed By: #### RILEY VALERIO #### [facility] [address] [place] [address] Dr. Josie Sanchez Erythrocyte distribution width (RBC) [Ratio] 12.8 % Normal 11.0-15.0 [facility] Comment on above: Performed By: #### Clyde MEANS UMICRO #### [facility] [address] [place] [address] Dr. Josie Sanchez Hematocrit (Bld) [Volume fraction] 41.2 % Normal 36.0-48.0 [facility] Comment on above: Performed By: #### Clyde MEANS UMICRO #### [facility] [address] [place] [address] Dr. Josie Sanchez Hemoglobin (Bld) [Mass/Vol] 13.3 g/dL Normal 12.0-16.0 [facility] Comment on above: Performed By: #### Clyde MEANS UMICRO #### [facility] [address] [place] [address] Dr. Josie Sanchez IG # 0.02 10e3/ul Normal 0.00-0.03 [facility] Comment on above: Performed By: #### Clyde MEANS UMICRO #### [facility] [address] [place] [address] Dr. Josie Sanchez IG % 0.3 % Normal 0.0-0.5 [facility] Comment on above: Performed By: #### Clyde MEANS UMICRO #### [facility] [address] [place] [address] Dr. Josie Sanchez LYMPH # 1.0 103/ul Critically low 1.2-3.8 [facility] Comment on above: Performed By: #### Clyde MEANS UMICRO #### [facility] [address] [place] [address] Dr. Josie Sanchez Lymphocytes/100 WBC (Bld) 15.5 % Critically low 20.5-6 0.0 [facility] Comment on above: Performed By: #### Clyde MEANS UMICRO #### [facility] [address] [place] [address] Dr. Josie Sanchez MANUAL DIFF REQ NO Normal [facility] Comment on above: Performed By: #### Clyde MEANS UMICRO #### [facility] [address] [place] [address] Dr. Josie Sanchez MCH (RBC) [Entitic mass] 28.9 pg Normal 26.7-34.0 [facility] Comment on above: Performed By: #### ROBERT VALERIOICRO #### [facility] [address] [place] [address] Dr. Josie Sanchez MCHC (RBC) [Mass/Vol] 32.3 g/dL Normal 29.9-35.2 [facility] Comment on above: Performed By: #### Clyde MEANS UMICRO #### [facility] [address] [place] [address] Dr. Josie Sanchez MCV (RBC) [Entitic vol] 89.6 fL Normal 81.0-99.0 [facility] [place] [facility] Comment on above: Performed By: #### Clyde MEANS UMICRO #### [facility] [address] [place] [address] Dr. Josie Sanchez MONO # 0.4 103/ul Normal 0.3-0.8 [facility] Comment on above: Performed By: #### Clyde MEANS UMICRO #### [facility] [address] [place] [address] Dr. Josie Sanchez Monocytes/100 WBC (Bld) 6.2 % Normal 1.7-12.0 [facility] Comment on above: Performed By: #### Clyde MEANS UMICRO #### [facility] [address] [place] [address] Dr. Josie Sanchez NEUT # 5.0 103/ul Normal 1.4-6.5 [facility] Comment on above: Performed By: #### Clyde MEANS UMICRO #### [facility] [address] [place] [address] Dr. Josie Sanchez Neutrophils/100 WBC (Bld) 77.5 % Critically high 43.0- 75.0 [facility] Comment on above: Performed By: #### Clyde MEANS UMICRO #### [facility] [address] [place] [address] Dr. Josie Sanchez Platelet mean volume (Bld) [Entitic vol] 10.2 fL Normal 9.5-13.5 [facility] Comment on above: Performed By: #### E RUR, UMICRO #### [facility] [address] [place], [place] [address] Dr. Josie Sanchez PLT 237 103/ul Normal 150-450 [facility] Comment on above: Performed By: #### E YOSELINR, UMICRO #### [facility] [address] [place], [place] [address] Dr. Josie Sanchez RBC 4.60 106/ul Normal 4.20-5.40 [facility] Comment on above: Performed By: #### E RUR, UMICRO #### [facility] [address] [place], [place] [address] Dr. Josie Sanchez WBC 6.5 103/ul Normal 4.0-11.0 [facility] Comment on above: Performed By: #### E YOSELINR UMICRO #### [facility] [address] [place], [place] [address] Dr. Josie Sanchez Covid-19 PCR ([facility])on 04-10 SARS-CoV-2 (COVID-19) RNA ALEXA+probe Ql (Unsp spec) Not detected Normal NOT DETECTED [facility] Comment on above: Result Comment: This test is not yet approved or cleared by the [place] FDA. When there are no FDA-approved or cleared tests available, and other criteria are met, FDA can make tests available under an emergency access mechanism called an Emergency Use Authorization (EUA). The EUA for this test is supported by the [place] [employer] and Human Service's (HHS's) declaration [...] symptoms consistent with SARS-CoV-2. Performed By: #### E YOSELINR UMICRO #### [facility] [address] [place] [address] Dr. Josie Sanchez PREG QUANT HCGon 05-07-2022 HCG QUANT 2745 mIU/mL Normal [facility] Comment on above: Performed By: #### RILEY VALERIO #### [facility] [address] [place] [address] Dr. Josie Sanchez HCG RANGE SEE BELOW Normal [facility] Comment on above: Result Comment: 5-50 0.2-1 WEEK 50-500 1-2 WEEKS 100-5,000 2-3 WEEKS 500-10,000 3-4 WEEKS 1,000-50,000 4-5 WEEKS 10,000-100,000 5-6 WEEKS 15,000-200,000 6-8 WEEKS 10,000-100,000 2-3 MONTHS Performed By: #### RILEY VALERIO #### [facility] [address] [place] [address] Dr. Josie Sanchez US PREG TVon 05-05-2022 [...] PEREZ DURBIN Date: 2022-05-05 14:42 Normal [facility] ER URINE PROFILEon 2 Bilirubin Ql (U) Negative Normal NEGATIVE [facility] Comment on above: Performed By: #### RILEY VALERIO #### [facility] [address] [place] [address] Dr. Josie Sanchez Clarity (U) CLEAR Normal CLEAR [facility] Comment on above: Performed By: #### Clyde MEANS UMICRO #### [facility] [address] [place] [address] Dr. Josie Sanchez Color (U) YELLOW Normal YELLOW [facility] Comment on above: Performed By: #### Clyde MEANS UMICRO #### [facility] [address] [place] [address] Dr. Josie WU A micrscopic examination will be performed if indicated. Normal [facility] Comment on above: Performed By: #### Clyde MEANS UMICRO #### [facility] [address] [place] [address] Dr. Josie Sanchez Glucose Ql (U) Negative Normal NEGATIVE [facility] Comment on above: Performed By: #### Clyde MEANS UMICRO #### [facility] [address] [place] [address] Dr. Josie Sanchez Hemoglobin Ql (U) SMALL Abnormal NEGATIVE [facility] Comment on above: Performed By: #### Clyde MEANS UMICRO #### [facility] [address] [place] [address] Dr. Josie Sanchez Ketones Ql (U) 15 mg/dl Abnormal NEGATIVE [facility] Comment on above: Performed By: #### Clyde MEANS UMICRO #### [facility] [address] [place] [address] Dr. Josie Sanchez LEUKOCYTES Negative Normal NEGATIVE [facility] Comment on above: Performed By: #### Clyde MEANS UMICRO #### [facility] [address] [place] [address] Dr. Josie Sanchez Nitrite Ql (U) Negative Normal NEGATIVE [facility] Comment on above: Performed By: #### Clyde MEANS UMICRO #### [facility] [address] [place] [address] Dr. Josie Sanchez pH (U) 6.0 [pH] Normal 5-9 [facility] Comment on above: Performed By: #### Clyde MEANS, UMICRO #### [facility] [address] [place] [address] Dr. Josie Sanchez SPEC GRAVITY 1.020 Normal 1.005-<=1.02 5 [facility] Comment on above: Performed By: #### Clyde MEANS, UMICRO #### [facility] [address] [place] [address] Dr. Josie Sanchez UA PROTEIN Negative Normal NEGATIVE/ TRACE [facility] Comment on above: Performed By: #### E MIGUELANGEL, UMICRO #### [facility] [address] [place] [address] Dr. Josie Sanchez UR MICRO IND INDICATED Normal [facility] Comment on above: Performed By: #### Clyde MEANS UMICRO #### [facility] [address] [place] [address] Dr. Josie Sanchez Urobilinogen Qn (U) 0.2 {Fabricio'U}/dL Normal 0.2 - 1. 0 [facility] Comment on above: Performed By: #### Clyde MEANS UMICRO #### [facility] [address] [place] [address] Dr. Josie Sanchez URINE MICROSCOPIC ONLYon BACTERIA NONE SEEN Normal NONE SEEN [facility] Comment on above: Performed By: #### Clyde MEANS, UMICRO #### [facility] [address] [place] [address] Dr. Josie Sanchez Bacteria identified Cx Nom (U) NOT INDICATED Normal [facility] Comment on above: Performed By: #### Clyde MEANS, UMICRO #### [facility] [address] [place] [address] Dr. Josie Sanchez CAST NONE SEEN Normal NONE SEEN [facility] Comment on above: Performed By: #### Clyde MEANS, UMICRO #### [facility] [address] [place] [address] Dr. Josie Sanchez Crystals LM Nom (Urine sed) NONE SEEN Normal NONE SEEN [facility] Comment on above: Performed By: #### Clyde MEANS UMICRO #### [facility] [address] [address] [address] Josie Sanchez Epithelial cells LM Ql (Urine sed) NONE SEEN Normal NONE SEEN /RARE [facility] Comment on above: Performed By: #### KIAN VALERIORO #### [facility] [address] [place] [address] Dr. Josie Sanchez MUCOUS MODERATE Abnormal NONE SEEN [facility] Comment on above: Performed By: #### KIAN VALERIORO #### [facility] [address] [place] [address] Dr. Josie Sanchez RBC 0-2 Normal 0-2 [facility] Comment on above: Performed By: #### KIAN VALERIORO #### [facility] [address] [place] [address] Dr. Josie Sanchez WBC NONE SEEN Normal NONE SEEN [facility] Comment on above: Performed By: #### KIAN VALERIORO #### [facility] [address] [place] [address] Dr. Josie Sanchez PREG QUANT HCGon 04-20-2022 HCG QUANT 29944 mIU/mL Normal [facility] Comment on above: Performed By: #### KIAN VALERIORO #### [facility] [address] [place] [address] Dr. Josie Sanchez HCG RANGE SEE BELOW Normal [facility] Comment on above: Result Comment: 5-50 0.2-1 WEEK 50-500 1-2 WEEKS 100-5,000 2-3 WEEKS 500-10,000 3-4 WEEKS 1,000-50,000 4-5 WEEKS 10,000-100,000 5-6 WEEKS 15,000-200,000 6-8 WEEKS 10,000-100,000 2-3 MONTHS Performed By: #### KIAN VALERIORO #### [facility] [address] [place] [address] Dr. Josie Sanchez HCG-BETA SUBUNIT QUANTon hCG,Beta Subunit,Qnt,Serum <1 Normal [facility] Comment on above: Result Comment: Fema le (Non-) 0 - 5 (Postmenopausal) 0 - 8 . Female () Weeks of Gestation 3 6 - 71 4 10 - 750 5 166 - 5098 6 212 - 18896 7 [phone] 8 [phone] 9 [phone] -[phone] 64389 -440228 12 14403 -[phone] 14 65090 - 32491 15 37433 - 12139 16 4335 - 88051 17 3697 - 45277 18 2780 - 39853 Regina ECLIA methodology Performed By: #### E RILEY MEANS #### [facility] [address] [place] [address] Dr. Josie Sanchez CBC AUTO DIFFon 02-18-2022 BASO # 0.0 103/ul Normal 0.0-0.1 [facility] Comment on above: Performed By: #### C BC #### [facility] [address] [place] [address] Dr. Josie Sanchez Basophils/100 WBC (Bld) 0.2 % Normal 0.2-2.0 [facility] [place] [facility] Comment on above: Performed By: #### C BC #### [facility] [address] [place] [address] Dr. Josie Sanchez EO # 0.1 103/ul Normal 0.0-0.7 [facility] Comment on above: Performed By: #### C BC #### [facility] [address] [place] [address] Dr. Josie Sanchez Eosinophils/100 WBC (Bld) 0.8 % Critically low 0.9-7. 0 [facility] Comment on above: Performed By: #### C BC #### [facility] [address] [place] [address] Dr. Josie Sanchez Erythrocyte distribution width (RBC) [Ratio] 12.5 % Normal 11.0-15.0 [facility] Comment on above: Performed By: #### C BC #### [facility] [address] [place] [address] Dr. Josie Sanchez Hematocrit (Bld) [Volume fraction] 39.5 % Normal 36.0-48.0 [facility] Comment on above: Performed By: #### C BC #### [facility] [address] [place] [address] Dr. Josie Sanchez Hemoglobin (Bld) [Mass/Vol] 13.0 g/dL Normal 12.0-16.0 [facility] Comment on above: Performed By: #### C BC #### [facility] [address] [place] [address] Dr. Josie Sanchez IG # 0.02 10e3/ul Normal 0.00-0.03 [facility] Comment on above: Performed By: #### C BC #### [facility] [address] [place] [address] Dr. Josie Sanchez IG % 0.3 % Normal 0.0-0.5 [facility] Comment on above: Performed By: #### C BC #### [facility] [address] [place] [address] Dr. Josie Sanchez LYMPH # 1.5 103/ul Normal 1.2-3.8 [facility] Comment on above: Performed By: #### C BC #### [facility] [address] [place] [address] Dr. Josie Sanchez Lymphocytes/100 WBC (Bld) 22.9 % Normal 20.5-60.0 [facility] Comment on above: Performed By: #### C BC #### [facility] [address] [place] [address] Dr. Josie Sanchez MANUAL DIFF REQ NO Normal [facility] Comment on above: Performed By: #### C BC #### [facility] [address] [place] [address] Dr. Josie Sanchez MCH (RBC) [Entitic mass] 30.3 pg Normal 26.7-34.0 [facility] Comment on above: Performed By: #### C BC #### [facility] [address] [place] [address] Dr. Josie Sanchez MCHC (RBC) [Mass/Vol] 32.9 g/dL Normal 29.9-35.2 [facility] Comment on above: Performed By: #### C BC #### [facility] [address] [place] [address] Dr. Josie Sanchez MCV (RBC) [Entitic vol] 92.1 fL Normal 81.0-99.0 [facility] [place] [facility] Comment on above: Performed By: #### C BC #### [facility] [address] [place] [address] Dr. Josie Sanchez MONO # 0.4 103/ul Normal 0.3-0.8 [facility] Comment on above: Performed By: #### C BC #### [facility] [address] [place] [address] Dr. Josie Sanchez Monocytes/100 WBC (Bld) 5.7 % Normal 1.7-12.0 [facility] [place] [facility] Comment on above: Performed By: #### C BC #### [facility] [address] [place] [address] Dr. Josie Sanchez NEUT # 4.6 103/ul Normal 1.4-6.5 [facility] Comment on above: Performed By: #### C BC #### [facility] [address] [place] [address] Dr. Josie Sanchez Neutrophils/100 WBC (Bld) 70.1 % Normal 43.0-75.0 [facility] Comment on above: Performed By: #### C BC #### [facility] [address] [place] [address] Dr. Josie Sanchez Platelet mean volume (Bld) [Entitic vol] 10.0 fL Normal 9.5-13.5 [facility] Comment on above: Performed By: #### C BC #### [facility] [address] [place] [address] Dr. Josie Sanchez PLT 242 103/ul Normal 150-450 [facility] Comment on above: Performed By: #### C BC #### [facility] [address] [place] [address] Dr. Josie Sanchez RBC 4.29 106/ul Normal 4.20-5.40 [facility] Comment on above: Performed By: #### C BC #### [facility] [address] [place] [address] Dr. Josie Sanchez WBC 6.5 103/ul Normal 4.0-11.0 [facility] Comment on above: Performed By: #### C BC #### [facility] [address] [address] [address] Josie Sanchez LIPID PROFILEon 02-18-2022 CHOL-HDL RATIO NORM SEE BELOW Normal [facility] Comment on above: Result Comment: 3.3 - 4.4 LOW RISK 4.4 - 7.1 AVERAGE RISK 7.1 - 11.0 MODERATE RISK >11.0 HIGH RISK Performed By: #### L IPID, TSH #### [facility] [address] [place], [place] [address] Dr. Josie Sanchez Cholesterol [Mass/Vol] 182 mg/dL Normal <=200 [facility] Comment on above: Performed By: #### L IPID, TSH #### [facility] [address] [address] [address] Josie Sanchez Cholesterol in HDL [Mass/Vol] 40 mg/dL Normal 40-60 [facility] Comment on above: Performed By: #### L IPID, TSH #### [facility] [address] [address] [address] Josie Sanchez Cholesterol in LDL [Mass/Vol] 122.4 mg/dL Normal [facility] Comment on above: Performed By: #### L IPID, TSH #### [facility] [address] [place], [place] [address] Dr. Josie Sanchez Cholesterol.total/Choleste rol in HDL [Mass ratio] 4.6 {ratio} Normal [facility] Comment on above: Performed By: #### L IPID, TSH #### [facility] [address] [place], [place] [address] Dr. Josie Sanchez HDL NORMAL > or = 60 mg/dl - LOW CARDIOVASCULAR RISK <40 mg/dl - HIGH CARDIOVASCULAR RISK Normal [facility] Comment on above: Performed By: #### L IPID, TSH #### [facility] [address] [place], [place] [address] Dr. Josie Sanchez LDL CALC NORMAL SEE BELOW Normal [facility] Comment on above: Result Comment: <100 mg/dl OPTIMAL 100 - 129 mg/dl NEAR OR ABOVE OPTIMAL 130 - 159 mg/dl BORDERLINE HIGH 160 - 189 mg/dl HIGH >190 mg/dl VERY HIGH Performed By: #### L IPID, TSH #### [facility] [address] [place] [address] Dr. Josie Sanchez Triglyceride [Mass/Vol] 98 mg/dL Normal <=150 [facility] Comment on above: Performed By: #### L IPID, TSH #### [facility] [address] [address] [address] Josie Sanchez VLDL CALC 19.6 mg/dL Normal [facility] Comment on above: Performed By: #### L IPID, TSH #### [facility] [address] [place] [address] Dr. Josie Sanchez PROTIMEon 02-18-2022 INR Coag (PPP) [Relative time] 1.10 {INR} Normal [facility] Comment on above: Performed By: #### P REGQNT #### [facility] [address] [place] [address] Dr. Josie Sanchez INR GUIDELINES SEE BELOW Normal [facility] Comment on above: Result Comment: PAULINA RED INR: 2.0 - 3.0 CONDITIONS NOT LISTED BELOW 2.5 - 3.5 FOR PROSTHETIC HEART VALVE REPLACEMENT 2.5 - 3.5 RECURRENT THROMBOSIS Performed By: #### P REGQNT #### [facility] [address] [place] [address] Dr. Josie Sanchez PT Coag (PPP) [Time] 11.8 s Critically high 9.0-11.6 [facility] Comment on above: Performed By: #### P REGQNT #### [facility] [address] [place] [address] Dr. Josie Sanchez PTTon 02-18-2022 aPTT Coag (Bld) [Time] 29.8 s Normal 22.3-36.2 [facility] Comment on above: Performed By: #### P REGQNT #### [facility] [address] [place] [address] Dr. Josie Sanchez TSHon 02-18-2022 TSH 3.410 uIU/mL Normal 0.358-3.740 [facility] Comment on above: Performed By: #### L IPID, TSH #### [facility] [address] [address] [address] Josie Sanchez US PELVIS AND TRANSVAGon [...] by: PEREZ DURBIN Date: 2022-02-18 18:56 Normal [facility] Nursing Note - Woundon 08-15 Nursing Note - Wound [id number] 22266#3.00CD:127 Normal [facility] Coding Summary.on 08-08-2020 Coding Summary. CODING DATE: 08/08/2020 FINAL [facility] STATUS: Home (Routine DC) PAYOR: Medicaid [...] Jeannie Nur Date Saved: 08/08/2020 10:31 am [facility] Formson 08-08-2020 Forms [id number] 0459#1.00CD:127 [facility] Home Health Recordson 2019 Home Health Records [id number] 3EFD#1.00CD:127 [facility] Ambulatory Clinical Summaryo n 07-26-2020 Ambulatory Clinical Summary {[id number] -[id number]-73-05-b0-03 -33-60-e2-c7}CD:61 4368 [facility] Record[facility] 2019 Home Health Records [id number] 0EC7#1.00CD:127 [facility] Progress Note - Woundon 07-09 Progress Note - Wound [id number] 69620#2.00CD:127 [facility] Consent for Treatmenton 07-09 Consent for Treatment [id number] AFAA#1.00CD:127 [facility] Multi-Wound Charton 07-25-20 20 Multi-Wound Chart [id number] [id number]#1.00CD:127 [facility] Nursing Assessment - Woundon 07-25-2020 Nursing Assessment - Wound [id number] 7.202 [id number]#1.00CD:127 [facility] Physician Orderon 07-25-2020 Physician Order [id number] 21647#1.00CD:127 [facility] Record[facility] 2019 Home Health Records [id number] 3741#1.00CD:127 [facility] Record[facility] 2019 Home Health Records [id number] 3554#1.00CD:127 [facility] Coding Summary.on 07-12-2020 Coding Summary. 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 However, the narrative phrase printed from the coding software may appear abbreviated, or result in slightly different terminology. Coded By: Aicha Bledsoe CphT Date Saved: 07/12/2020 03:05 pm [facility] Coding Summary. 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 However, the narrative phrase printed from the coding software may appear abbreviated, or result in slightly different terminology. Coded By: Aicha Bledsoe CphT Date Saved: 07/12/2020 03:03 pm [facility] Multi-Wound Charton 07-12-20 20 Multi-Wound Chart [id number] 13065#1.00CD:127 [facility] Nursing Assessment - Woundon 07-12-2020 Nursing Assessment - Wound [id number] 7.202 [id number] 10555#1.00CD:127 [facility] Nursing Note - Woundon 07-12 Nursing Note - Wound [id number] 62035#1.00CD:127 [facility] Consent for Procedure/Surger yon 07-11-2020 Consent for Procedure/Surgery [id number] 26154#1.00CD:127 [facility] Consent for Treatmenton Consent for Treatment [id number] B36A#1.00CD:127 [facility] Home Health Recordson 2019 Home Health Records [id number]#1.00CD:127 [facility] Home Health Records [id number]#1.00CD:127 [facility] Physician Orderon 07-11-2020 Physician Order [id number]#1.00CD:127 [facility] Progress Note - Woundon Progress Note - Wound [id number] 06248#1.00CD:127 [facility] Nursing Note - Woundon 07-02 Nursing Note - Wound [id number] 34766#3.00CD:127 [facility] Consent for Procedure/Surger yon 06-28-2020 Consent for Procedure/Surgery [id number]. [id number] 0200#1.00CD:127 [facility] Consent to Photographon 06-10 Consent to Photograph [id number] 0326#1.00CD:127 [facility] HIPAA Privacy Documentson HIPAA Privacy Documents [id number] 0158#1.00CD:127 [facility] Nursing Note - Woundon 06-28 Nursing Note - Wound [id number]. [id number] 0289#1.00CD:127 [facility] Nursing Note - Wound [id number]. [id number] 0217#1.00CD:127 [facility] Consent for Treatmenton 06-09 Consent for Treatment [id number] EEDA#1.00CD:127 [facility] Multi-Wound Charton 06-27-20 Multi-Wound Chart [id number] 59977#1.00CD:127 [facility] Nursing Assessment - Woundon 06-27-2020 Nursing Assessment - Wound [id number] 202 [id number] 14567#1.00CD:127 [facility] Physician Orderon 06-27-2020 Physician Order [id number]#2.00CD:127 [facility] Progress Note - Woundon 06-09 Progress Note - Wound [id number] 88531#1.00CD:127 [facility] HIPAA Privacy Documentson HIPAA Privacy Documents [id number]#1.00CD:127 [facility] Outside Records Officeon Outside Records Office [id number]#1.00CD:127 [facility] Vital Signs Date Time Vital Sign Value Performing Clinician Facility 11-20-2022 15:05-0400 Body height 152.4 cm Gloria Hayden Other [facility] Other 11-20-2022 15:05-0400 Body mass index (BMI) [Ratio] 11.72 kg/m2 Gloria Hayden Other [facility] Other 11-20-2022 15:05-0400 Body temperature 97.7 [degF] Gloria Hayden Other [facility] Other 11-20-2022 15:05-0400 Body weight 27.22 kg Gloria Hayden Other [facility] Other 11-20-2022 15:05-0400 Respiratory rate 18 /min Gloria Hayden Other [facility] Other 11-20-2022 15:05-0400 SaO2% (BldA) [Mass fraction] 97 % Gloria Hayden Other [facility] Other Encounters Encounter Date Encounter Type Care Provider Facility Start: 06-27-2024 End: 06-27-2024 [facility] Result Encounter Norbert Silvia DO Work Phone: [facility] External Department Unsolicited Start: 06-27-2024 End: 06-27-2024 [facility] Result Encounter Norbert Silvia DO Work Phone: [facility] External Department Unsolicited Start: 06-21-2024 End: 06-21-2024 [facility] Result Encounter Norbert Silvia DO Work Phone: [facility] External Department Unsolicited Start: 06-21-2024 End: 06-21-2024 [facility] Result Encounter Norbert Silvia DO Work Phone: [facility] External Department Unsolicited Start: 06-19-2024 End: 06-19-2024 [facility] Result Encounter Norbert Silvia DO Work Phone: [facility] External Department Unsolicited Start: 06-19-2024 End: 06-19-2024 [facility] Result Encounter Norbert Silvia DO Work Phone: [facility] External Department Unsolicited Start: 12-06-2023 End: 12-06-2023 ambulatory NORBERT SILVIA Not Available Start: 11-22-2023 End: 11-22-2023 ambulatory [...] 11-20-2022 End: 11-20-2022 ambulatory Gloria Hayden Other [facility] Start: 11-20-2022 Office outpatient vi sit 15 minutes Gloria Hayden [facility] Start: 11-18-2022 End: 11-19-2022 [...] preprocedural laboratory examination DR NORBERT VEGA . [facility] Start: 05-08-2022 End: 05-08-[address] [...] Date Procedure Procedure Detail Performing Clinician Start: 06-27-2024 [facility] y Silvia DO Work Phone: Start: 06-21-2024 [facility] y Silvia DO Work Phone: Start: 06-19-2024 [facility] y Silvia DO Work Phone: Start: 09-20-2023 ALL CBC WITH AUTO DIFF Norbert Silvia DO Work Phone: Plan of Treatment Date Care Activity Detail Author Start: 11-13-2024 End: 11-13-2024 Patient encounter procedure 11/13/2024 2:00 PM EDT Office Visit [facility] [address] [place], [place] [address] [place] [place] [address] Norbert Vega, DO [address] [place], [place] [id number] [facility] Start: 07-28-2024 End: 07-28-2024 ambulatory 07/28/2024 10:30 AM EST Initial [facility] [address] [place] [address] [facility] Payers Date Payer Category Payer Medicaid [id number] 2. [id number] 2022 Medicaid [id number] 1985 Unknown [id number] 2.16.84 0.1.799641.3.579.2.593 1985 Unknown [id number] 2.16.84 0.1.713364.3.579.2.593 1985 Unknown [id number] 2.16.84 0.1.187078.3.579.2.593 1985 Unknown [id number] 2.16.84 0.1.971048.3.579.2.593 1985 Unknown [id number] 2.16.84 0.1.749062.3.579.2.593 1985 Unknown [id number] 2.16.84 0.1.283262.3.579.2.593 1985 Unknown [id number] 2.16.84 0.1.320592.3.579.2.593 1985 Unknown [id number] 2.16.84 0.1.277887.3.579.2.593 1985 Unknown [id number] 2.16.84 0.1.633436.3.579.2.593 1985 Unknown [id number] 2.16.84 0.1.785847.3.579.2.593 1985 Unknown [id number] 2.16.84 0.1.914911.3.579.2.593 1985 Unknown [id number] 2.16.84 0.1.554477.3.579.2.593 1985 Unknown [id number] 2.16.84 0.1.458471.3.579.2.593 1985 Unknown [id number] 2.16.84 0.1.032504.3.579.2.593 1985 Unknown [id number] 2.16.84 0.1.220444.3.579.2.593 1985 Unknown [id number] 2.16.84 0.1.707253.3.579.2.593 1985 Unknown [id number] 2.16.84 0.1.170862.3.579.2.593 1985 Unknown [id number] 2.16.84 0.1.722350.3.579.2.593 1985 Unknown [id number] 2.16.84 0.1.417363.3.579.2.593 1985 Unknown [id number] 2.16.84 0.1.058260.3.579.2.593 1985 Unknown [id number] 2.16.84 0.1.576815.3.579.2.1259 1985 Unknown [id number] 2.16.84 0.1.815934.3.579.2.1259 1985 Unknown [id number] 2.16.84 0.1.201691.3.579.2.1259 1985 Unknown [id number] 2.16.840 .1.296114.3.579.2.1259 1959 Self-pay 1959 Unknown [id number] Social History Date Type Detail Facility Unknown if ever smoked [facility] Start: 12-21-2022 End: 12-06-2023 Sex Assigned At [facility] Start: 12-21-2022 Tobacco smoking status NHIS Never smoked tobacco [facility] Start: 12-21-2022 Tobacco use and exposure Smokeless tobacco non-user [facility] Start: 08-23-2023 End: 12-06-2023 Alcohol intake Current drinker of alcohol (finding) [facility] Start: 12-21-2022 End: 12-06-2023 History of Social function [facility] Start: 01-14-2023 Alcohol Comment caffeine intak e: occasionally [facility] Start: 1985 Sex Assigned At Not on file [facility] Evaluation note 11-20-2022 Note Date & [...] Contact dermatitis home care material was printed [facility] Other Clinical Note 05-08-2022 Note Date & [...] authenticated by: PEREZ DURBIN Date: 2022-05-08 18:03 [facility] Clinical Note 05-08-2022 Note Date & Type Note Facility 05-08-2022 Note OPERATIVE NOTE OPERATION DATE: 05/08/2022 PROCEDURE: Suction D AND C. PREOPERATIVE DIAGNOSIS: 1. Suspected molar during first trimester. 2. Uterine mass approximately 4.5 cm. POSTOPERATIVE DIAGNOSIS: 1. Suspected molar during first trimester. 2. Uterine mass approximately 4.5 cm. 3. Significant large amounts of retained products. SURGEON: Norbert Vega D.O. GROUNDSKEEPER: None. BLOOD LOSS: 100 mL. URINE OUTPUT: [...] products of conception were removed using a 9-Samoan suction curette tip. Excellent hemostasis was noted. The patient tolerated the procedure well. Sponge, lap, and needle counts were correct x 2. All instruments were then removed from the patient's vagina. The patient was taken to the Recovery Room in stable condition. ?? [facility] History general Narrative - Reported Note Date & Type Note Facility History general Narrative - Reported Type Medical History Hypercholesterolemia Medical History Hormone imbalance Medical History Vitamin D deficiency Medical History Iron deficiency Surgical History C section Surgical History oral surgery Surgical History tonsillectomy and adenoidectomy Surgical History D&C 2021 Hospitalization History child [facility] Other Summary Purpose Family History No Family History Records FoundNo Family History Records FoundNo Family History Records Found Advance Directives No Advanced Directives Records FoundNo Advanced Directives Records FoundNo Advanced Directives Records Found Additional Source Comments INFORMATION SOURCE (unrecogn ized section and content) DATE CREATED AUTHOR 08/15/2020 [facility] DATE CREATED AUTHOR AUTHOR'S ORGANIZ ATION 12/22/2022 [facility] DATE CREATED AUTHOR AUTHOR'S ORGANIZ ATION 12/07/2023 [facility] EPIC REASON FOR VISIT (unrecogniz ed section and content) [employer] Care Teams (unrecognized sec tion and content) [employer] Supervisor Relationship Specialty Start Date End Date Quoc Watts MD [address] [place] [id number] PCP - General Family Medicine 12/28/22 [employer] Supervisor Relationship Specialty Start Date End Date Quoc Watts MD [address] [place] [phone] PCP - General Family [facility] 12/28/22 [employer] Supervisor Relationship Specialty Start Date End Date Quoc Watts MD [address] [place] [phone] PCP - General Family Medicine 12/28/22 FOR [...] BE BASED ON THE PRIMARY CLINICAL RECORDS. [facility] [employer] [facility]. provides no warranty or guarantee of the accuracy or completeness of information in this document.
== END 2024-07-27 09:35 | disposition home or self-care (01) ==
LOC: US 09:34
PROVIDERS: PCP Obstetrics & Gynecology; Visit Provider Obstetrics & Gynecology
DX: Z34.01 Encounter for supervision of normal first pregnancy, first trimester (principal); Z3A.11 11 weeks gestation of pregnancy; N92.6 Irregular menstruation, unspecified
CPT/HCPCS: 76801

== ENCOUNTER 2024-07-28 11:04 | Outpatient (OUT) | payer MEDICAID, SELFPAY ==
[2024-07-28 11:22] LABS: BOX Test Reference Lab UNITY; BOX Test Sent Out UNITY
[2024-07-28 11:31] LABS: Basophils Percent Auto 0.2 % (0.2-2.0); Eosinophils Absolute Auto 0.1 10^3/uL (0.0-0.7); Hematocrit 36.8 % (36.0-48.0); Hemoglobin 12.1 g/dL (12.0-16.0); Immature Granulocytes Abs Auto 0.01 10^3/uL (0.00-0.03); Immature Granulocytes Pct Auto 0.2 % (0.0-0.5); Lymphocytes Absolute Auto 1.2 10^3/uL (1.2-3.8); Lymphocytes Percent Auto 21.3 % (20.5-60.0); Mean Corpuscular HGB Conc 32.9 g/dL (29.9-35.2); Mean Corpuscular Hemoglobin 27.4 pg (26.7-34.0); Mean Corpuscular Volume 83.4 fL (81.0-99.0); Mean Platelet Volume 10.1 fL (9.5-13.5); Monocytes Absolute Auto 0.4 10^3/uL (0.3-0.8); Monocytes Percent Auto 6.9 % (1.7-12.0); Neutrophils Absolute Auto 4.1 10^3/uL (1.4-6.5); Neutrophils Percent Auto 70.4 % (43.0-75.0); Platelet Count 248 10^3/uL (150-450); Red Blood Count 4.41 10^6/uL (4.20-5.40); Red Cell Distribution Width 13.8 % (11.0-15.0); White Blood Count 5.8 10^3/uL (4.0-11.0)
[2024-07-28 13:59] LABS: Estimated Average Glucose 108 mg/dL; Glycohemoglobin A1C 5.4 % (4.5-6.2)
[2024-07-29 06:08] LABS: HBsAg Screen Negative (Negative); HCV Ab Non Reactive (Non Reactive); HIV Ab/p24 Ag Screen Non Reactive (Non Reactive); Rubella Antibodies, IgG 1.75 index (Immune >0.99)
[2024-07-29 11:07] LABS: Rapid Plasma Reagin, Quant Non Reactive titer (NonRea<1:1)
== END 2024-07-28 11:05 | disposition home or self-care (01) ==
LOC: LAB 11:05
PROVIDERS: PCP Obstetrics & Gynecology; Visit Provider Obstetrics & Gynecology
DX: Z34.01 Encounter for supervision of normal first pregnancy, first trimester (principal); Z36.0 Encounter for antenatal screening for chromosomal anomalies; N92.6 Irregular menstruation, unspecified
CPT/HCPCS: 36415; 80307; 83036; 85025; 86592; 86762; 86803; 86850; 86900; 86901; 87086; 87340; 87389

== ENCOUNTER 2024-07-31 14:35 | Outpatient (REF) | payer MEDICAID, SELFPAY ==
[2024-07-31 14:55] LABS: Amphetamine Screen Urine NEGATIVE (NEGATIVE); Barbiturates Screen Urine NEGATIVE (NEGATIVE); Benzodiazepines Screen Urine NEGATIVE (NEGATIVE); Buprenorphine Screen Urine NEGATIVE (NEGATIVE); Cannabinoid Screen Urine NEGATIVE (NEGATIVE); Cocaine Screen Urine NEGATIVE (NEGATIVE); Methadone Screen Urine NEGATIVE (NEGATIVE); Methamphetamines Screen Urine NEGATIVE (NEGATIVE); Opiate Screen Urine NEGATIVE (NEGATIVE); Oxycodone Screen Urine NEGATIVE (NEGATIVE); Phencyclidine Screen Urine NEGATIVE (NEGATIVE); Tricyclic Antidepressant Urine NEGATIVE (NEGATIVE)
--- OUTSIDE RECORDS SUMMARY | 2024-07-31 14:55 | XMS_ITS | CCD ---
Author Organization [facility] Care Team Providers Care Email Specialist Name Role Phone Gloria Hayden Unavailable RAY [...] DR JIMENEZ Attending Unavailable PAY ., DR IJMENEZ Admitting Unavailable PAY ., DR JIMENEZ Consulting [...] HOY ., DR KUMARI Primary Care Unavailable DUMONT, DR PEREZ Luther Consulting Unavailable SILVIA ., DR TOUSSAINT Attending Unavailable SILVIA ., DR TOUSSAINT Consulting Unavailable HOY ., DR KUMARI Primary Care Unavailable DUMONT, DR PEREZ Luther Consulting Unavailable SILVIA ., DR TOUSSAINT Admitting Unavailable SILVIA ., DR TOUSSAINT Attending Unavailable SILVIA ., DR TOUSSAINT Consulting Unavailable SILVIA ., DR TOUSSAINT Admitting Unavailable HOY ., DR KUMARI Primary Care Unavailable DUMONT, DR PEREZ Luther Consulting Unavailable SILVIA ., [...] source) Penicillin G Drug Allergy throat swelling [facility] Other (1 source) Cefaclor Drug Allergy [facility] Repository (2 sources) Penicillins Drug allergy (disorder) 01-26-20 16 [facility] (6 sources) Penicillins Drug Intolerance 10-21-19 19 Unknown [facility] Work Phone: Medications Current Medications Medication Drug Class(es) Dates Sig (Normalized) Sig (Original) aspirin 81 mg delayed release oral tablet (7 sources) Platelet Aggregation Inhibitor, Nonsteroidal Anti-inflammatory Drug take 1 tablet by mouth in the morning aspirin 81 MG EC tablet Take 81 mg by mouth in the morning. Active 24 hr buPROPion hydrochloride 300 mg extended release oral tablet (2 sources) Aminoketone Start: 06-18-2024 take 1 tablet by mouth every twenty-four hours in the morning buPROPion XL (Wellbutrin XL) 300 MG 24 hr tablet Take 300 mg by mouth in the morning. 06/18/2024 Active cholecalciferol 0.025 mg oral capsule (7 sources) Vitamin D cholecalciferol (Vitamin D-3) 25 MCG (1000 UT) capsule Take by mouth Daily. Active take 1 tablet by jackie th every twenty-four hours Vitamin D3 50 MCG (2000 UT) 1 tablet Orally Once a day Active citalopram 20 mg oral tablet (1 source) Serotonin Reuptake Inhibitor Start: 06-28-2024 End: 07-28-2024 take 1 tablet by mouth once daily citalopram (CeleXA) 20 MG tablet Indications: Anxiety, generalized (CMS/HCC) , HERNANDEZ (generalized anxiety disorder) (CMS/HCC) Take 1 tablet (20 mg) by mouth Daily 30 tablet 06/28/2024 07/28/2024 Discontinued DHEA 50 MG (1 source) DHEA 50 MG take 2 Orally daily Active Fish Oils (2 sources) take 1 capsule by mouth once daily omega-3 (FISH OIL) 300 MG capsule Take 300 mg by mouth Daily Active folic acid 0.4 mg oral tablet [...] 391 mg oral capsule (1 source) Start: 09-15-2023 End: 12-24-2023 take 1 capsule by mouth in the [...] 5 day(s) Nov, Active (1 source) Active MV-Min-Fe Fum-FA-DHA ( 1 PO) (2 sources) MV-Min- Fe Fum-FA-DHA ( 1 PO) Take 1 tablet by mouth Daily Active Progesterone 200 MG suppository (5 sources) Start: 06-13-2024 End: 07-28-2024 Progesterone 200 MG suppository Indications: History of miscarriage Insert 200 mg into the vagina at bedtime Insert suppository vaginally every night at bedtime until 12 weeks gestation 30 suppository 2 06/13/2024 07/28/2024 Active Start: 06-13-2024 End: 07-13-2024 Progesterone 200 MG supposit ory Indications: History of miscarriage Insert 200 mg into the vagina at bedtime Insert suppository vaginally every night at bedtime until 12 weeks gestation 30 suppository 2 06/13/2024 07/13/2024 Active terconazole 4 mg/ml vaginal cream (1 source) Azole Antifungal Start: 06-23-2024 End: 06-30-2024 terconazole (Terazol 7) 0.4 % vaginal cream Indications: Yeast infection Insert 1 applicator into the vagina at bedtime for 7 days 45 g 06/23/2024 06/30/2024 Active ubidecarenone 30 mg oral capsule (2 sources) take 1 capsule by mouth once daily co-enzyme Q-10 30 MG capsule Take 30 mg by mouth Daily Active Vitamin C 500 MG (1 source) [...] contact dermatitis, unspecified cause Episodic Anxiety disorders (6 sources) Generalized anxiety disorder; Translations: [Generalized anxiety disorder] Onset: 01-15-2023 01-15-2023 Chronic Menstrual disorders (9 sources) Excessive and frequent menstruation with irregular cycle; Translations: [Irregular menstruation, unspecified] Onset: 06-22-2022 Chronic Mood disorders (1 source) Major depressive disorder, single episode, unspecified; Translations: [CONCEPCION DEPRESS D/O SINGLE EPIS UNS] Onset: 05-26-2022 Chronic Other female genital disorders (4 sources) Abnormal uterine and vaginal bleeding, unspecified; Translations: [ABNORMAL UTERINE VAGINAL BLEED UNS] Onset: 02-18-2022 Chronic Other and delivery including normal (2 sources) ; Translations: [Encounter for supervision of normal , unspecified, unspecified trimester] 07-28-2024 Episodic Other screening for suspected conditions (not mental [...] Test Name Value Interpretation Reference Range Facility BOX TEST[facility] 07-28-2024 [facility]24 [facility] HCG ( test) Ql (U)o n 07-28-2024 Interpretation and review of laboratory results Abnormal [facility] Preg Test, Ur Positive Negative [facility] Urinalysis macro (dipstick) panel (U)on 07-28-2024 Bilirubin, UA Negative Negative - 4(70) +++ mg/dL [facility] Blood, UA Positive Negative - 50 Doroteo/mcL [facility] Clarity, UA Clear [facility] Color, UA Yellow [facility] Glucose, UA Negative Negative - 2000(110) ++++ mg/dL [facility] Interpretation and review of laboratory results Abnormal [facility] Ketones, UA Negative Negative - 160(16) ++++ mg/dL [facility] Leukocytes, UA Negative Negative - 500+++ Celina/mcL [facility] Nitrite, UA Negative Negative - Positive [facility] pH, UA 6.5 5 - 9 [facility] Protein, UA Trace Negative - 1999(20) ++++ mg/dL [facility] Spec Grav, UA 1.025 1 - 1.03 [facility] Urobilinogen, UA 0.2 0.2 - 12 mg/dL [facility] TB PREG QUANT HCGon 024 HCG QUANTITATIVE 50257 mIU/mL [facility] Comment on above: 5-50 0.2-1 WEEK 50-500 1-2 WEEKS 100-5,000 2-3 WEEKS 500-10,000 3-4 WEEKS 1,000-50,000 4-5 WEEKS 10,000-100,000 5-6 WEEKS 15,000-200,000 6-8 WEEKS 10,000-100,000 [facility]-21- 024 HCG QUANTITATIVE 4062 mIU/mL [facility] Comment on above: 5-50 0.2-1 WEEK 50-500 1-2 WEEKS 100-5,000 2-3 WEEKS 500-10,000 3-4 WEEKS 1,000-50,000 4-5 WEEKS 10,000-100,000 5-6 WEEKS 15,000-200,000 6-8 WEEKS 10,000-100,000 [facility] 06-19- 024 HCG QUANTITATIVE 3108 mIU/mL [facility] Comment on above: 5-50 0.2-1 WEEK 50-500 1-2 WEEKS 100-5,000 2-3 WEEKS 500-10,000 3-4 WEEKS 1,000-50,000 4-5 WEEKS 10,000-100,000 5-6 WEEKS 15,000-200,000 6-8 WEEKS 10,000-100,000 2-3 MONTHS [facility] ALL CBC WITH AUTO DIFFon BASOPHILS ABSOLUTE AUTO 0.0 N [facility] Basophils/100 WBC (Bld) 0.2 % 0.2 - 2.0 % [facility] Eosinophils/100 WBC (Bld) 0.8 % Low 0.9 - 7.0 % [facility] Erythrocyte distribution width (RBC) [Ratio] 13.4 % 11.0 - 15.0 % [facility] Hematocrit (Bld) [Volume fraction] 42.3 % 36.0 - 48.0 % [facility] Hemoglobin (Bld) [Mass/Vol] 13.6 g/dL 12.0 - 16.0 g/dL [facility] IMMATURE GRANULOCYTES ABS AUTO 0.02 [facility] Immature granulocytes/100 WBC (Bld) 0.3 % 0.0 - 0.5 % [facility] Interpretation and review of laboratory results Abnormal [facility] LYMPHOCYTES ABSOLUTE AUTO 1.7 [facility] Lymphocytes/100 WBC (Bld) 26.5 % 20 .5 - 60.0 % [facility] MCH (RBC) [Entitic mass] 30.1 pg 26. 7 - 34.0 pg [facility] MCHC (RBC) [Mass/Vol] 32.2 g/dL 29.9 - 35.2 g/dL [facility] MCV (RBC) [Entitic vol] 93.6 fL 81.0 - 99.0 fL [facility] MONOCYTES ABSOLUTE AUTO 0.5 N [facility] Monocytes/100 WBC (Bld) 7.3 % 1.7 - 12.0 % [facility] NEUTROPHILS ABSOLUTE AUTO 4.3 [facility] Neutrophils/100 WBC (Bld) 64.9 % 43 .0 - 75.0 % [facility] Platelet mean volume (Bld) [Entitic vol] 10.8 fL 9.5 - 13.5 fL [facility] RBC 4.52 [facility] WBC 6.5 [facility] PROGESTERONEon 12-19-2022 Progesterone 9.6 ng/mL Normal [facility] Comment on above: Result Comment: Foll icular phase 0.1 - 0.9 Luteal phase 1.8 - 23.9 Ovulation phase 0.1 - 12.0 First trimester 11.0 - 44.3 Second trimester 25.4 - 83.3 Third trimester 58.7 - 214.0 Postmenopausal 0.0 - 0.1 Performed By: #### P ROGES #### [facility] [address] [address] [address] Josie Sanchez PROGESTERONEon 11-19-2022 Progesterone 6.3 ng/mL Normal [facility] Comment on above: Result Comment: Foll icular phase 0.1 - 0.9 Luteal phase 1.8 - 23.9 Ovulation phase 0.1 - 12.0 First trimester 11.0 - 44.3 Second trimester 25.4 - 83.3 Third trimester 58.7 - 214.0 Postmenopausal 0.0 - 0.1 Performed By: #### P ROGES #### [facility] [address] [address] [address] Josie Sanchez PREG QUANT HCGon 11-18-2022 HCG QUANT <1 Normal [facility] Comment on above: Performed By: #### P REGQNT #### [facility] [address] [place] [address] Dr. Josie Sanchez HCG RANGE SEE BELOW Normal [facility] Comment on above: Result Comment: 5-50 0.2-1 WEEK 50-500 1-2 WEEKS 100-5,000 2-3 WEEKS 500-10,000 3-4 WEEKS 1,000-50,000 4-5 WEEKS 10,000-100,000 5-6 WEEKS 15,000-200,000 6-8 WEEKS 10,000-100,000 2-3 MONTHS Performed By: #### P REGQNT #### [facility] [address] [place] [address] Dr. Josie Sanchez US PELVIS AND TRANSVAGon [...] of a yolk sac as noted by generation engineering technologist. No significant free pelvic fluid [...] by: RENE MEYERS Date: 2022-11-16 18:09 Normal [facility] DHEA SERUMon 11-11-2022 Dehydroepiandrosterone (DHEA) 335 ng/dL Normal 31-701 [facility] Comment on above: Performed By: #### RILEY VALERIO #### [facility] [address] [address] [address] Josie Sanchez DHEA-SULFATEon 11-10-2022 DHEA-Sulfate 251.0 ug/dL Normal 57.3-279.2 [facility] Comment on above: Performed By: #### P REGQNT #### [facility] [address] [address] [address] Josie Sanchez ESTRADIOLon 11-10-2022 Estradiol 66.1 pg/mL Normal [facility] Comment on above: Result Comment: Adul t Female: Follicular phase 12.5 - 166.0 Ovulation phase 85.8 - 498.0 Luteal phase 43.8 - 211.0 Postmenopausal <6.0 - 54.7 1st trimester 215.0 - >4300.0 [facility] ECLIA methodology Performed By: #### RILEY VALERIO #### [facility] [address] [address] [address] Josie Sanchez FSHon 11-10-2022 FSH 6.9 mIU/mL Normal [facility] Comment on above: Result Comment: Adul t Female: Follicular phase 3.5 - 12.5 Ovulation phase 4.7 - 21.5 Luteal phase 1.7 - 7.7 Postmenopausal 25.8 - 134.8 Performed By: #### P REGQNT #### [facility] [address] [place] [address] Dr. Josie Sanchez LUTEINIZING HORMONE (LH)on 0 11-10-2022 LH 9.9 mIU/mL Normal [facility] Comment on above: Result Comment: Adul t Female: Follicular phase 2.4 - 12.6 Ovulation phase 14.0 - 95.6 Luteal phase 1.0 - 11.4 Postmenopausal 7.7 - 58.5 Performed By: #### Clyde MEANS UMICRO #### [facility] [address] [place] [address] Dr. Josie Sanchez CBC AUTO DIFFon 11-09-2022 BASO # 0.0 103/ul Normal 0.0-0.1 [facility] Comment on above: Performed By: #### Clyde MEANS UMICRO #### [facility] [address] [place] [address] Dr. Josie Sanchez Basophils/100 WBC (Bld) 0.3 % Normal 0.2-2.0 [facility] Comment on above: Performed By: #### Clyde MEANS UMICRO #### [facility] [address] [place] [address] Dr. Josie Sanchez EO # 0.0 103/ul Normal 0.0-0.7 [facility] Comment on above: Performed By: #### Clyde MEANS UMICRO #### [facility] [address] [place] [address] Dr. Josie Sanchez Eosinophils/100 WBC (Bld) 0.5 % Critically low 0.9-7. 0 [facility] Comment on above: Performed By: #### Clyde MEANS, UMICRO #### [facility] [address] [place] [address] Dr. Josie Sanchez Erythrocyte distribution width (RBC) [Ratio] 13.2 % Normal 11.0-15.0 [facility] Comment on above: Performed By: #### Clyde MEANS, UMICRO #### [facility] [address] [place] [address] Dr. Josie Sanchez Hematocrit (Bld) [Volume fraction] 41.8 % Normal 36.0-48.0 [facility] Comment on above: Performed By: #### KIAN VALERIORO #### [facility] [address] [place] [address] Dr. Josie Sanchez Hemoglobin (Bld) [Mass/Vol] 13.7 g/dL Normal 12.0-16.0 [facility] Comment on above: Performed By: #### KIAN VALERIORO #### [facility] [address] [place] [address] Dr. Josie Sanchez IG # 0.02 10e3/ul Normal 0.00-0.03 [facility] Comment on above: Performed By: #### KIAN VALERIORO #### [facility] [address] [place] [address] Dr. Josie Sanchez IG % 0.3 % Normal 0.0-0.5 [facility] Comment on above: Performed By: #### KIAN VALERIORO #### [facility] [address] [place] [address] Dr. Josie Sanchez LYMPH # 1.2 103/ul Normal 1.2-3.8 [facility] Comment on above: Performed By: #### KIAN VALERIORO #### [facility] [address] [place] [address] Dr. Josie Sanchez Lymphocytes/100 WBC (Bld) 18.4 % Critically low 20.5-6 0.0 [facility] Comment on above: Performed By: #### KIAN VALERIORO #### [facility] [address] [place] [address] Dr. Josie Sanchez MANUAL DIFF REQ NO Normal [facility] Comment on above: Performed By: #### KIAN VALERIORO #### [facility] [address] [place] [address] Dr. Josie Sanchez MCH (RBC) [Entitic mass] 29.5 pg Normal 26.7-34.0 [facility] Comment on above: Performed By: #### KIAN VALERIORO #### [facility] [address] [place] [address] Dr. Josie Sanchez MCHC (RBC) [Mass/Vol] 32.8 g/dL Normal 29.9-35.2 [facility] Comment on above: Performed By: #### Clyde MEANS UMICRO #### [facility] [address] [place] [address] Dr. Josie Sanchez MCV (RBC) [Entitic vol] 89.9 fL Normal 81.0-99.0 [facility] Comment on above: Performed By: #### Clyde MEANS, UMICRO #### [facility] [address] [place] [address] Dr. Josie Sanchez MONO # 0.3 103/ul Normal 0.3-0.8 [facility] Comment on above: Performed By: #### Clyde MEANS, UMICRO #### [facility] [address] [place] [address] Dr. Josie Sanchez Monocytes/100 WBC (Bld) 5.1 % Normal 1.7-12.0 [facility] Comment on above: Performed By: #### Clyde MEANS, UMICRO #### [facility] [address] [place] [address] Dr. Josie Sanchez NEUT # 4.8 103/ul Normal 1.4-6.5 [facility] Comment on above: Performed By: #### Clyde MEANS, UMICRO #### [facility] [address] [place] [address] Dr. Josie Sanchez Neutrophils/100 WBC (Bld) 75.4 % Critically high 43.0- 75.0 [facility] Comment on above: Performed By: #### Clyde MEANS, UMICRO #### [facility] [address] [place] [address] Dr. Josie Sanchez Platelet mean volume (Bld) [Entitic vol] 9.8 fL Normal 9.5-13.5 [facility] Comment on above: Performed By: #### Clyde MEANS, UMICRO #### [facility] [address] [place] [address] Dr. Josie Sanchez PLT 256 103/ul Normal 150-450 [facility] Comment on above: Performed By: #### KIAN VALERIORO #### [facility] [address] [address] [address] Josie Sanchez RBC 4.65 106/ul Normal 4.20-5.40 [facility] Comment on above: Performed By: #### KIAN VALERIORO #### [facility] [address] [address] [address] Josie Sanchez WBC 6.4 103/ul Normal 4.0-11.0 [facility] Comment on above: Performed By: #### KIAN VALERIORO #### [facility] [address] [place] [address] Dr. Josie Sanchez FERRITINon 11-09-2022 Ferritin [Mass/Vol] 42.0 ng/mL Normal 6.2-137.0 [facility] Comment on above: Performed By: #### KIAN VALERIORO #### [facility] [address] [place] [address] Dr. Josie Sanchez FREE T4on 11-09-2022 Free T4 [Mass/Vol] 0.87 ng/dL Normal 0.76-1.46 [facility] Comment on above: Performed By: #### KIAN VALERIORO #### [facility] [address] [place] [address] Dr. Josie Sanchez GLYCOHEMOGLOBIN A1Con 2022 ADA RECOMMENDATION SEE BELOW Normal [facility] Comment on above: Result Comment: ADA RECOMMENDED LIMIT 4.0 - 6.0 ADA THERAPEUTIC TARGET < 7.0 ACTION SUGGESTED > 7.0 Performed By: #### KIAN VALERIORO #### [facility] [address] [place] [address] Dr. Josie Sanchez Glucose [Mass/Vol] 100 mg/dL Normal [facility] Comment on above: Performed By: #### KIAN VALERIORO #### [facility] [address] [place] [address] Dr. Josie Sanchez HbA1c (Bld) [Mass fraction] 5.1 % Normal 4.5-6.2 [facility] Comment on above: Performed By: #### RILEY VALERIO #### [facility] [address] [address] [address] Josie Sanchez PREG QUANT HCGon 11-09-2022 HCG QUANT <1 Normal [facility] Comment on above: Performed By: #### RILEY VALERIO #### [facility] [address] [place] [address] Dr. Josie Sanchez HCG RANGE SEE BELOW Normal [facility] Comment on above: Result Comment: 5-50 0.2-1 WEEK 50-500 1-2 WEEKS 100-5,000 2-3 WEEKS 500-10,000 3-4 WEEKS 1,000-50,000 4-5 WEEKS 10,000-100,000 5-6 WEEKS 15,000-200,000 6-8 WEEKS 10,000-100,000 2-3 MONTHS Performed By: #### RILEY VALERIO #### [facility] [address] [place] [address] Dr. Josie Sanchez TSHon 11-09-2022 TSH 2.163 uIU/mL Normal 0.358-3.740 [facility] Comment on above: Performed By: #### RILEY VALERIO #### [facility] [address] [place] [address] Dr. Josie Sanchez PROGESTERONEon 08-29-2022 Progesterone 7.3 ng/mL Normal [facility] Comment on above: Result Comment: Foll icular phase 0.1 - 0.9 Luteal phase 1.8 - 23.9 Ovulation phase 0.1 - 12.0 First trimester 11.0 - 44.3 Second trimester 25.4 - 83.3 Third trimester 58.7 - 214.0 Postmenopausal 0.0 - 0.1 Performed By: #### P DAXA #### [facility] [address] [place] [address] Dr. Josie Sanchez INSULINon 08-13-2022 Insulin 12.5 uIU/mL Normal 2.6-24.9 [facility] Comment on above: Performed By: #### P REGQNT #### [facility] [address] [place] [address] Dr. Josie Sanchez CBC AUTO DIFFon 08-12-2022 BASO # 0.0 103/ul Normal 0.0-0.1 [facility] Comment on above: Performed By: #### E YOSELINR, UMICRO #### [facility] [address] [place] [address] Dr. Josie Sanchez Basophils/100 WBC (Bld) 0.2 % Normal 0.2-2.0 [facility] Comment on above: Performed By: #### E RUR, UMICRO #### [facility] [address] [place] [address] Dr. Josie Sanchez EO # 0.1 103/ul Normal 0.0-0.7 [facility] Comment on above: Performed By: #### E MIGUELANGEL, UMICRO #### [facility] [address] [place] [address] Dr. Josie Sanchez Eosinophils/100 WBC (Bld) 0.8 % Critically low 0.9-7. 0 [facility] Comment on above: Performed By: #### Clyde MEANS UMICRO #### [facility] [address] [place] [address] Dr. Josie Sanchez Erythrocyte distribution width (RBC) [Ratio] 14.0 % Normal 11.0-15.0 [facility] Comment on above: Performed By: #### Clyde MEANS, UMICRO #### [facility] [address] [place] [address] Dr. Josie Sanchez Hematocrit (Bld) [Volume fraction] 39.5 % Normal 36.0-48.0 [facility] Comment on above: Performed By: #### E MIGUELANGEL, UMICRO #### [facility] [address] [place] [address] Dr. Josie Sanchez Hemoglobin (Bld) [Mass/Vol] 12.7 g/dL Normal 12.0-16.0 [facility] Comment on above: Performed By: #### E RUR, UMICRO #### [facility] [address] [place] [address] Dr. Josie Sanchez IG # 0.02 10e3/ul Normal 0.00-0.03 [facility] Comment on above: Performed By: #### RILEY VALERIO #### [facility] [address] [place] [address] Dr. Josie Sanchez IG % 0.3 % Normal 0.0-0.5 [facility] Comment on above: Performed By: #### KIAN VALERIORO #### [facility] [address] [place] [address] Dr. Josie Sanchez LYMPH # 1.6 103/ul Normal 1.2-3.8 [facility] Comment on above: Performed By: #### RILEY VALERIO #### [facility] [address] [place] [address] Dr. Josie Sanchez Lymphocytes/100 WBC (Bld) 26.9 % Normal 20.5-60.0 [facility] Comment on above: Performed By: #### RILEY VALERIO #### [facility] [address] [place] [address] Dr. Josie Sanchez MANUAL DIFF REQ NO Normal [facility] Comment on above: Performed By: #### RILEY VALERIO #### [facility] [address] [place] [address] Dr. Josie Sanchez MCH (RBC) [Entitic mass] 28.3 pg Normal 26.7-34.0 [facility] Comment on above: Performed By: #### KIAN VALERIORO #### [facility] [address] [place] [address] Dr. Josie Sanchez MCHC (RBC) [Mass/Vol] 32.2 g/dL Normal 29.9-35.2 [facility] Comment on above: Performed By: #### KIAN VALERIORO #### [facility] [address] [place] [address] Dr. Josie Sanchez MCV (RBC) [Entitic vol] 88.0 fL Normal 81.0-99.0 [facility] Comment on above: Performed By: #### KIAN VALERIORO #### [facility] [address] [place] [address] Dr. Josie Sanchez MONO # 0.4 103/ul Normal 0.3-0.8 [facility] Comment on above: Performed By: #### Clyde MEANS UMICRO #### [facility] [address] [place] [address] Dr. Josie Sanchez Monocytes/100 WBC (Bld) 7.1 % Normal 1.7-12.0 [facility] Comment on above: Performed By: #### Clyde MEANS UMICRO #### [facility] [address] [place] [address] Dr. Josie Sanchez NEUT # 3.8 103/ul Normal 1.4-6.5 [facility] Comment on above: Performed By: #### Clyde MEANS ICRO #### [facility] [address] [place] [address] Dr. Josie Sanchez Neutrophils/100 WBC (Bld) 64.7 % Normal 43.0-75.0 [facility] Comment on above: Performed By: #### Clyde MEANS ICRO #### [facility] [address] [place] [address] Dr. Josie Sanchez Platelet mean volume (Bld) [Entitic vol] 10.1 fL Normal 9.5-13.5 [facility] Comment on above: Performed By: #### Clyde MEANS ICRO #### [facility] [address] [place] [address] Dr. Josie Sanchez PLT 211 103/ul Normal 150-450 [facility] Comment on above: Performed By: #### Clyde MEANS ICRO #### [facility] [address] [place] [address] Dr. Josie Sanchez RBC 4.49 106/ul Normal 4.20-5.40 [facility] Comment on above: Performed By: #### Clyde MEANS UMICRO #### [facility] [address] [place] [address] Dr. Josie Sanchez WBC 5.9 103/ul Normal 4.0-11.0 [facility] [facility] Comment on above: Performed By: #### Clyde MEANS UMGEORGIARO #### [facility] [address] [address] [address] Josie Sanchez FREE THYROXINE INDEX T7on FTI 2.63 Normal 1.30-4.50 [facility] Comment on above: Performed By: #### Clyde MEANS UMICRO #### [facility] [address] [place] [address] Dr. Josie Sanchez T3U 35.0 % Normal 30.0-39.0 [facility] Comment on above: Performed By: #### Clyde MEANS UMGEORGIARO #### [facility] [address] [place] [address] Dr. Josie Sanchez T4 [Mass/Vol] 7.50 ug/dL Normal 4.80-13.[address] [facility] Comment on above: Performed By: #### Clyde MEANS UMGEORGIARO #### [facility] [address] [place] [address] Dr. Josie Sanchez GLYCOHEMOGLOBIN A1Con 2022 ADA RECOMMENDATION SEE BELOW Normal [facility] Comment on above: Result Comment: ADA RECOMMENDED LIMIT 4.0 - 6.0 ADA THERAPEUTIC TARGET < 7.0 ACTION SUGGESTED > 7.0 Performed By: #### KIAN VALERIORO #### [facility] [address] [place] [address] Dr. Josie Sanchez Glucose [Mass/Vol] 111 mg/dL Normal [facility] Comment on above: Performed By: #### Clyde MEANS UMICRO #### [facility] [address] [place] [address] Dr. Josie Sanchez HbA1c (Bld) [Mass fraction] 5.5 % Normal 4.5-6.2 [facility] Comment on above: Performed By: #### Clyde MEANS UMICRO #### [facility] [address] [place] [address] Dr. Josie Sanchez IRONon 08-12-2022 Iron [Mass/Vol] 40.0 ug/dL Critically low 50.0-170.0 [facility] Comment on above: Performed By: #### P REGQNT #### [facility] [address], [place] [address] Dr. Josie Sanchez LIPID PROFILEon 08-12-2022 CHOL-HDL RATIO NORM SEE BELOW Normal [facility] Comment on above: Result Comment: 3.3 - 4.4 LOW RISK 4.4 - 7.1 AVERAGE RISK 7.1 - 11.0 MODERATE RISK >11.0 HIGH RISK Performed By: #### P REGQNT #### [facility] [address] [address] [address] Josie Sanchez Cholesterol [Mass/Vol] 183 mg/dL Normal <=200 [facility] Comment on above: Performed By: #### P REGQNT #### [facility] [address] [address] [address] Josie Sanchez Cholesterol in HDL [Mass/Vol] 40 mg/dL Normal 40-60 [facility] Comment on above: Performed By: #### P REGQNT #### [facility] [address] [address] [address] Josie Sanchez Cholesterol in LDL [Mass/Vol] 131.0 mg/dL Normal [facility] Comment on above: Performed By: #### P REGQNT #### [facility] [address], [place] [address] Dr. Josie Sanchez Cholesterol.total/Choleste rol in HDL [Mass ratio] 4.6 {ratio} Normal [facility] Comment on above: Performed By: #### P REGQNT #### [facility] [address], [place] [address] Dr. Josie Sanchez HDL NORMAL > or = 60 mg/dl - LOW CARDIOVASCULAR RISK <40 mg/dl - HIGH CARDIOVASCULAR RISK Normal [facility] Comment on above: Performed By: #### P REGQNT #### [facility] [address], [place] [address] Dr. Josie Sanchez LDL CALC NORMAL SEE BELOW Normal [facility] Comment on above: Result Comment: <100 mg/dl OPTIMAL 100 - 129 mg/dl NEAR OR ABOVE OPTIMAL 130 - 159 mg/dl BORDERLINE HIGH 160 - 189 mg/dl HIGH >190 mg/dl VERY HIGH Performed By: #### P REGQNT #### [facility] [address] [place] [address] Dr. Josie Sanchez Triglyceride [Mass/Vol] 60 mg/dL Normal <=150 [facility] Comment on above: Performed By: #### P REGQNT #### [facility] [address] [place] [address] Dr. Josie Sanchez VLDL CALC 12.0 mg/dL Normal [facility] Comment on above: Performed By: #### P REGQNT #### [facility] [address] [place] [address] Dr. Josie Sanchez PROF 14(COMP METB)on 023 Albumin [Mass/Vol] 3.7 g/dL Normal 3.4-5.0 [facility] Comment on above: Performed By: #### RILEY VALERIO #### [facility] [address] [place] [address] Dr. Josie Sanchez Albumin/Globulin [Mass ratio] 0.9 {ratio} Normal [facility] Comment on above: Performed By: #### RILEY VALERIO #### [facility] [address] [place] [address] Dr. Josie Sanchez ALP [Catalytic activity/Vol] 131 U/L Critically high 46-116 [facility] Comment on above: Performed By: #### RILEY VALERIO #### [facility] [address] [place] [address] Dr. Josie Sanchez ALT [Catalytic activity/Vol] 23 U/L Normal 14-59 [facility] Comment on above: Performed By: #### RILEY VALERIO #### [facility] [address] [place] [address] Dr. Josie Sanchez Anion gap [Moles/Vol] 10.5 mmol/L Normal [facility] Comment on above: Performed By: #### RILEY VALERIO #### [facility] [address] [place] [address] Dr. Josie Sanchez AST [Catalytic activity/Vol] 18 U/L Normal 15-37 [facility] Comment on above: Performed By: #### RILEY VALERIO #### [facility] [address] [address] [address] Josie Sanchez Bilirubin [Mass/Vol] 0.7 mg/dL Normal 0.2-1.0 [facility] Comment on above: Performed By: #### RILEY VALERIO #### [facility] [address] [address] [address] Josie Sanchez Calcium [Mass/Vol] 8.7 mg/dL Normal 8.5-10.1 [facility] Comment on above: Performed By: #### RILEY VALERIO #### [facility] [address] [place] [address] Dr. Josie Sanchez Chloride [Moles/Vol] 103 mmol/L Normal 98-107 [facility] Comment on above: Performed By: #### RILEY VALERIO #### [facility] [address] [place] [address] Dr. Josie Sanchez CO2 [Moles/Vol] 30.1 mmol/L Normal 21.0-32.[address] [facility] Comment on above: Performed By: #### RILEY VALERIO #### [facility] [address] [place] [address] Dr. Josie Sanchez Creatinine [Mass/Vol] 0.66 mg/dL Normal 0.55-1.02 [facility] Comment on above: Performed By: #### RILEY VALERIO #### [facility] [address] [place] [address] Dr. Josie Sanchez EGFR-AF CAMEROONIAN >60 Normal >=[address] [facility] Comment on above: Performed By: #### RILEY VALERIO #### [facility] [address] [place] [address] Dr. Josie Sanchez EGFR-NON AF CAMEROONIAN >60 Normal >=60 [facility] Comment on above: Performed By: #### RILEY VALERIO #### [facility] [address] [address] [address] Josie Sanchez Globulin (S) [Mass/Vol] 4.3 g/dL Normal [facility] Comment on above: Performed By: #### Clyde MEANS, UMICRO #### [facility] [address] [place] [address] Dr. Josie Sanchez Glucose [Mass/Vol] 90 mg/dL Normal 74-106 [facility] Comment on above: Performed By: #### Clyde MEANS, UMICRO #### [facility] [address] [place] [address] Dr. Josie Sanchez Potassium [Moles/Vol] 3.6 mmol/L Normal 3.5-5.1 [facility] Comment on above: Performed By: #### Clyde MEANS, UMICRO #### [facility] [address] [place] [address] Dr. Josie Sanchez Protein [Mass/Vol] 8.0 g/dL Normal 6.4-8.2 [facility] Comment on above: Performed By: #### Clyde MEANS, UMICRO #### [facility] [address] [place] [address] Dr. Josie Sanchez Sodium [Moles/Vol] 140 mmol/L Normal 136-145 [facility] Comment on above: Performed By: #### Clyde MEANS, UMICRO #### [facility] [address] [place] [address] Dr. Josie Sanchez Urea nitrogen [Mass/Vol] 12.0 mg/dL Normal 7.0-18.0 [facility] Comment on above: Performed By: #### Clyde MEANS, UMICRO #### [facility] [address] [place] [address] Dr. Josie Sanchez Urea nitrogen/Creatinine [Mass ratio] 18.2 mg/mg Normal [facility] Comment on above: Performed By: #### Clyde MEANS, UMICRO #### [facility] [address] [place] [address] Dr. Josie Sanchez TSHon 08-12-2022 TSH 3.070 uIU/mL Normal 0.358-3.[address] [facility] Comment on above: Performed By: #### P REGQNT #### [facility] [address] [place] [address] Dr. Josie Sanchez PREG QUANT HCGon 06-22-2022 HCG QUANT 1 mIU/mL Normal [facility] Comment on above: Performed By: #### RILEY VALERIO #### [facility] [address] [place] [address] Dr. Josie Sanchez HCG RANGE SEE BELOW Normal [facility] Comment on above: Result Comment: 5-50 0.2-1 WEEK 50-500 1-2 WEEKS 100-5,000 2-3 WEEKS 500-10,000 3-4 WEEKS 1,000-50,000 4-5 WEEKS 10,000-100,000 5-6 WEEKS 15,000-200,000 6-8 WEEKS 10,000-100,000 2-3 MONTHS Performed By: #### RILEY VALERIO #### [facility] [address] [place] [address] Dr. Josie Sanchez PREG QUANT HCGon 05-20-2022 HCG QUANT 6 mIU/mL Normal [facility] Comment on above: Performed By: #### P REGQNT #### [facility] [address] [place] [address] Dr. Josie Sanchez HCG RANGE SEE BELOW Normal [facility] Comment on above: Result Comment: 5-50 0.2-1 WEEK 50-500 1-2 WEEKS 100-5,000 2-3 WEEKS 500-10,000 3-4 WEEKS 1,000-50,000 4-5 WEEKS 10,000-100,000 5-6 WEEKS 15,000-200,000 6-8 WEEKS 10,000-100,000 2-3 MONTHS Performed By: #### P REGQNT #### [facility] [address] [place] [address] Dr. Josie Sanchez PREG QUANT HCGon 05-14-2022 HCG QUANT 26 mIU/mL Normal [facility] Comment on above: Performed By: #### P REGQNT #### [facility] [address] [place] [address] Dr. Josie Sanchez HCG RANGE SEE BELOW Normal [facility] Comment on above: Result Comment: 5-50 0.2-1 WEEK 50-500 1-2 WEEKS 100-5,000 2-3 WEEKS 500-10,000 3-4 WEEKS 1,000-50,000 4-5 WEEKS 10,000-100,000 5-6 WEEKS 15,000-200,000 6-8 WEEKS 10,000-100,000 2-3 MONTHS Performed By: #### P REGQNT #### [facility] [address] [place] [address] Dr. Josie Sanchez CBC AUTO DIFFon 05-08-2022 BASO # 0.0 103/ul Normal 0.0-0.1 [facility] Comment on above: Performed By: #### Clyde MEANS, UMICRO #### [facility] [address] [place] [address] Dr. Josie Sanchez Basophils/100 WBC (Bld) 0.2 % Normal 0.2-2.0 [facility] Comment on above: Performed By: #### Clyde MEANS, UMICRO #### [facility] [address] [place] [address] Dr. Josie Sanchez EO # 0.0 103/ul Normal 0.0-0.7 [facility] Comment on above: Performed By: #### Clyde MEANS, UMICRO #### [facility] [address] [place] [address] Dr. Josie Sanchez Eosinophils/100 WBC (Bld) 0.5 % Critically low 0.9-7. 0 [facility] Comment on above: Performed By: #### E MIGUELANGEL, UMICRO #### [facility] [address] [place] [address] Dr. Josie Sanchez Erythrocyte distribution width (RBC) [Ratio] 12.8 % Normal 11.0-15.0 [facility] Comment on above: Performed By: #### E MIGUELANGEL, UMICRO #### [facility] [address] [place] [address] Dr. Josie Sanchez Hematocrit (Bld) [Volume fraction] 41.0 % Normal 36.0-48.0 [facility] Comment on above: Performed By: #### KIAN VALERIORO #### [facility] [address] [place] [address] Dr. Josie Sanchez Hemoglobin (Bld) [Mass/Vol] 13.4 g/dL Normal 12.0-16.0 [facility] Comment on above: Performed By: #### KIAN VALERIORO #### [facility] [address] [place] [address] Dr. Josie Sanchez IG # 0.02 10e3/ul Normal 0.00-0.03 [facility] Comment on above: Performed By: #### KIAN VALERIORO #### [facility] [address] [place] [address] Dr. Josie Sanchez IG % 0.3 % Normal 0.0-0.5 [facility] Comment on above: Performed By: #### KIAN VALERIORO #### [facility] [address] [place] [address] Dr. Josie Sanchez LYMPH # 1.6 103/ul Normal 1.2-3.8 [facility] Comment on above: Performed By: #### KIAN VALERIORO #### [facility] [address] [place] [address] Dr. Josie Sanchez Lymphocytes/100 WBC (Bld) 27.1 % Normal 20.5-60.0 [facility] Comment on above: Performed By: #### KIAN VALERIORO #### [facility] [address] [place] [address] Dr. Josie Sanchez MANUAL DIFF REQ NO Normal [facility] Comment on above: Performed By: #### KIAN VALERIORO #### [facility] [address] [place] [address] Dr. Josie Sanchez MCH (RBC) [Entitic mass] 29.3 pg Normal 26.7-34.0 [facility] Comment on above: Performed By: #### KIAN VALERIORO #### [facility] [address] [address] [address] Josie Sanchez MCHC (RBC) [Mass/Vol] 32.7 g/dL Normal 29.9-35.2 [facility] Comment on above: Performed By: #### Clyde MEANS, UMICRO #### [facility] [address] [place] [address] Dr. Josie Sanchez MCV (RBC) [Entitic vol] 89.5 fL Normal 81.0-99.0 [facility] Comment on above: Performed By: #### E MIGUELANGEL, UMICRO #### [facility] [address] [place] [address] Dr. Josie Sanchez MONO # 0.5 103/ul Normal 0.3-0.8 [facility] Comment on above: Performed By: #### Clyde MEANS, UMICRO #### [facility] [address] [place] [address] Dr. Josie Sanchez Monocytes/100 WBC (Bld) 8.6 % Normal 1.7-12.0 [facility] Comment on above: Performed By: #### Clyde MEANS, UMICRO #### [facility] [address] [place] [address] Dr. Josie Sanchez NEUT # 3.7 103/ul Normal 1.4-6.5 [facility] Comment on above: Performed By: #### Clyde MEANS, UMICRO #### [facility] [address] [place] [address] Dr. Josie Sanchez Neutrophils/100 WBC (Bld) 63.3 % Normal 43.0-75.0 [facility] Comment on above: Performed By: #### Clyde MEANS, UMICRO #### [facility] [address] [place] [address] Dr. Josie Sanchez Platelet mean volume (Bld) [Entitic vol] 9.8 fL Normal 9.5-13.5 [facility] Comment on above: Performed By: #### Clyde MEANS, UMICRO #### [facility] [address] [place] [address] Dr. Josie Sanchez PLT 238 103/ul Normal 150-450 [facility] Comment on above: Performed By: #### RILEY VALERIO #### [facility] [address] [place] [address] Dr. Josie Sanchez RBC 4.58 106/ul Normal 4.20-5.40 [facility] Comment on above: Performed By: #### RILEY VALERIO #### [facility] [address] [place] [address] Dr. Josie Sanchez WBC 5.8 103/ul Normal 4.0-11.0 [facility] Comment on above: Performed By: #### RILEY VALERIO #### [facility] [address] [place] [address] Dr. Josie Sanchez PREG QUANT HCGon 05-08-2022 HCG QUANT 2335 mIU/mL Normal [facility] Comment on above: Performed By: #### P REGQNT #### [facility] [address] [place] [address] Dr. Josie Sanchez HCG RANGE SEE BELOW Normal [facility] Comment on above: Result Comment: 5-50 0.2-1 WEEK 50-500 1-2 WEEKS 100-5,000 2-3 WEEKS 500-10,000 3-4 WEEKS 1,000-50,000 4-5 WEEKS 10,000-100,000 5-6 WEEKS 15,000-200,000 6-8 WEEKS 10,000-100,000 2-3 MONTHS Performed By: #### P REGQNT #### [facility] [address] [place] [address] Dr. Josie Sanchez CBC AUTO DIFFon 05-07-2022 BASO # 0.0 103/ul Normal 0.0-0.1 [facility] Comment on above: Performed By: #### RILEY VALERIO #### [facility] [address] [place] [address] Dr. Josie Sanchez Basophils/100 WBC (Bld) 0.2 % Normal 0.2-2.0 [facility] Comment on above: Performed By: #### RILEY VALERIO #### [facility] [address] [place] [address] Dr. Josie Sanchez EO # 0.0 103/ul Normal 0.0-0.7 [facility] Comment on above: Performed By: #### KIAN VALERIORO #### [facility] [address] [place] [address] Dr. Josie Sanchez Eosinophils/100 WBC (Bld) 0.3 % Critically low 0.9-7. 0 [facility] Comment on above: Performed By: #### Clyde MEANS UMICRO #### [facility] [address] [place] [address] Dr. Josie Sanchez Erythrocyte distribution width (RBC) [Ratio] 12.8 % Normal 11.0-15.0 [facility] Comment on above: Performed By: #### ROBERT VALERIOICRO #### [facility] [address] [place] [address] Dr. Josie Sanchez Hematocrit (Bld) [Volume fraction] 41.2 % Normal 36.0-48.0 [facility] Comment on above: Performed By: #### KIAN VALERIORO #### [facility] [address] [place] [address] Dr. Josie Sanchez Hemoglobin (Bld) [Mass/Vol] 13.3 g/dL Normal 12.0-16.0 [facility] Comment on above: Performed By: #### Clyde MEANS UMICRO #### [facility] [address] [place] [address] Dr. Josie Sanchez IG # 0.02 10e3/ul Normal 0.00-0.03 [facility] Comment on above: Performed By: #### Clyde MEANS UMICRO #### [facility] [address] [place] [address] Dr. Josie Sanchez IG % 0.3 % Normal 0.0-0.5 [facility] Comment on above: Performed By: #### Clyde MEANS UMICRO #### [facility] [address] [place] [address] Dr. Josie Sanchez LYMPH # 1.0 103/ul Critically low 1.2-3.8 [facility] Comment on above: Performed By: #### KIAN VALERIORO #### [facility] [address] [place] [address] Dr. Josie Sanchez Lymphocytes/100 WBC (Bld) 15.5 % Critically low 20.5-6 0.0 [facility] Comment on above: Performed By: #### KIAN VALERIORO #### [facility] [address] [place] [address] Dr. Josie Sanchez MANUAL DIFF REQ NO Normal [facility] Comment on above: Performed By: #### KIAN VALERIORO #### [facility] [address] [place] [address] Dr. Josie Sanchez MCH (RBC) [Entitic mass] 28.9 pg Normal 26.7-34.0 [facility] Comment on above: Performed By: #### KIAN VALERIORO #### [facility] [address] [place] [address] Dr. Josie Sanchez MCHC (RBC) [Mass/Vol] 32.3 g/dL Normal 29.9-35.2 [facility] Comment on above: Performed By: #### KIAN VALERIORO #### [facility] [address] [place] [address] Dr. Josie Sanchez MCV (RBC) [Entitic vol] 89.6 fL Normal 81.0-99.0 [facility] Comment on above: Performed By: #### KIAN VALERIORO #### [facility] [address] [place] [address] Dr. Josie Sanchez MONO # 0.4 103/ul Normal 0.3-0.8 [facility] Comment on above: Performed By: #### KIAN VALERIORO #### [facility] [address] [place] [address] Dr. Josie Sanchez Monocytes/100 WBC (Bld) 6.2 % Normal 1.7-12.0 [facility] Comment on above: Performed By: #### KIAN VALERIORO #### [facility] [address] [address] [address] Josie Sanchez NEUT # 5.0 103/ul Normal 1.4-6.5 [facility] Comment on above: Performed By: #### ROBERT VALERIOICRO #### [facility] [address] [place] [address] Dr. Josie Sanchez Neutrophils/100 WBC (Bld) 77.5 % Critically high 43.0- 75.0 [facility] Comment on above: Performed By: #### Clyde MEANS UMICRO #### [facility] [address] [place] [address] Dr. Josie Sanchez Platelet mean volume (Bld) [Entitic vol] 10.2 fL Normal 9.5-13.5 [facility] Comment on above: Performed By: #### Clyde MEANS UMICRO #### [facility] [address] [place] [address] Dr. Josie Sanchez PLT 237 103/ul Normal 150-450 [facility] Comment on above: Performed By: #### Clyde MEANS ICRO #### [facility] [address] [place] [address] Dr. Josie Sanchez RBC 4.60 106/ul Normal 4.20-5.40 [facility] Comment on above: Performed By: #### Clyde MEANS ICRO #### [facility] [address] [place] [address] Dr. Josie Sanchez WBC 6.5 103/ul Normal 4.0-11.0 [facility] Comment on above: Performed By: #### Clyde MEANS, ICRO #### [facility] [address] [place] [address] Dr. Josie Sanchez [facility] SARS-CoV-2 (COVID-19) RNA ALEXA+probe Ql (Unsp spec) Not detected Normal NOT DETECTED [facility] Comment on above: Result Comment: This test is not yet approved or cleared by the [place] FDA. When there are no FDA-approved or cleared tests available, and other criteria are met, FDA can make tests available under an emergency access mechanism called an Emergency Use Authorization (EUA). The EUA for this test is supported by the Demo Coordinator of Health and Human Service's (HHS's) declaration [...] SARS-CoV-2. Performed By: #### RILEY VALERIO #### [facility] [address] [place] [address] Dr. Josie Sanchez PREG QUANT HCGon 05-07-2022 HCG QUANT 2745 mIU/mL Normal [facility] Comment on above: Performed By: #### RILEY VALERIO #### [facility] [address] [place] [address] Dr. Josie Snachez HCG RANGE SEE BELOW Normal [facility] Comment on above: Result Comment: 5-50 0.2-1 WEEK 50-500 1-2 WEEKS 100-5,000 2-3 WEEKS 500-10,000 3-4 WEEKS 1,000-50,000 4-5 WEEKS 10,000-100,000 5-6 WEEKS 15,000-200,000 6-8 WEEKS 10,000-100,000 2-3 MONTHS Performed By: #### RILEY VALERIO #### [facility] [address] [place] [address] Dr. Josie Sanchez US PREG TVon 05-05-2022 [...] PEREZ DURBIN Date: 2022-05-05 14:42 Normal [facility] ER URINE PROFILEon 2 Bilirubin Ql (U) Negative Normal NEGATIVE [facility] Comment on above: Performed By: #### ROBERT VALERIOICRO #### [facility] [address] [place] [address] Dr. Josie Sanchez Clarity (U) CLEAR Normal CLEAR [facility] Comment on above: Performed By: #### Clyde MEANS UMICRO #### [facility] [address] [place] [address] Dr. Josie Sanchez Color (U) YELLOW Normal YELLOW [facility] Comment on above: Performed By: #### Clyde MEANS UMICRO #### [facility] [address] [place] [address] Dr. Josie WU A micrscopic examination will be performed if indicated. Normal [facility] Comment on above: Performed By: #### Clyde MEANS UMICRO #### [facility] [address] [place] [address] Dr. Josie Sanchez Glucose Ql (U) Negative Normal NEGATIVE [facility] Comment on above: Performed By: #### Clyde MEANS UMICRO #### [facility] [address] [place] [address] Dr. Josie Sanchez Hemoglobin Ql (U) SMALL Abnormal NEGATIVE [facility] [facility] [place] Comment on above: Performed By: #### Clyde MEANS UMICRO #### [facility] [address] [place] [address] Dr. Josie Sanchez Ketones Ql (U) 15 mg/dl Abnormal NEGATIVE [facility] Comment on above: Performed By: #### KIAN VALERIORO #### [facility] [address] [place] [address] Dr. Josie Sanchez LEUKOCYTES Negative Normal NEGATIVE [facility] Comment on above: Performed By: #### ROBERT VALERIOICRO #### [facility] [address] [place] [address] Dr. Josie Sanchez Nitrite Ql (U) Negative Normal NEGATIVE [facility] Comment on above: Performed By: #### Clyde MEANS UMICRO #### [facility] [address] [place] [address] Dr. Josie Sanchez pH (U) 6.0 [pH] Normal 5-9 [facility] Comment on above: Performed By: #### KIAN VALERIORO #### [facility] [address] [place] [address] Dr. Josie Sancehz SPEC GRAVITY 1.020 Normal 1.005-<=1.02 5 [facility] Comment on above: Performed By: #### ROBERT VAELRIOICRO #### [facility] [address] [place] [address] Dr. Josie Sanchez UA PROTEIN Negative Normal NEGATIVE/ TRACE [facility] Comment on above: Performed By: #### KIAN VALERIORO #### [facility] [address] [place] [address] Dr. Josie Sanchez UR MICRO IND INDICATED Normal [facility] Comment on above: Performed By: #### KIAN VALERIORO #### [facility] [address] [place] [address] Dr. Josie Sanchez Urobilinogen Qn (U) 0.2 {Fabricio'U}/dL Normal 0.2 - 1. 0 [facility] Comment on above: Performed By: #### KIAN VALERIORO #### [facility] [address] [place] [address] Dr. Josie Sanchez URINE MICROSCOPIC ONLYon BACTERIA NONE SEEN Normal NONE SEEN [facility] Comment on above: Performed By: #### E RUR, UMICRO #### [facility] [address] [place] [address] Dr. Josie Sanchez Bacteria identified Cx Nom (U) NOT INDICATED Normal [facility] Comment on above: Performed By: #### Clyde MEANS UMICRO #### [facility] [address] [place] [address] Dr. Josie Sanchez CAST NONE SEEN Normal NONE SEEN [facility] Comment on above: Performed By: #### Clyde MEANS UMICRO #### [facility] [address] [place] [address] Dr. Josie Sanchez Crystals LM Nom (Urine sed) NONE SEEN Normal NONE SEEN [facility] Comment on above: Performed By: #### Clyde MEANS UMICRO #### [facility] [address] [place] [address] Dr. Josie Sanchez Epithelial cells LM Ql (Urine sed) NONE SEEN Normal NONE SEEN /RARE [facility] Comment on above: Performed By: #### Clyde MEANS UMICRO #### [facility] [address] [place] [address] Dr. Josie Sanchez MUCOUS MODERATE Abnormal NONE SEEN [facility] Comment on above: Performed By: #### Clyde MEANS UMICRO #### [facility] [address] [place] [address] Dr. Josie Sanchez RBC 0-2 Normal 0-2 [facility] Comment on above: Performed By: #### Clyde MEANS UMICRO #### [facility] [address] [place] [address] Dr. Josie Sanchez WBC NONE SEEN Normal NONE SEEN [facility] Comment on above: Performed By: #### Clyde MEANS UMICRO #### [facility] [address] [place] [address] Dr. Josie Sanchez PREG QUANT HCGon 04-20-2022 HCG QUANT 38355 mIU/mL Normal [facility] Comment on above: Performed By: #### Clyde MEANS UMICRO #### [facility] [address] [place] [address] Dr. Josie Sanchez HCG RANGE SEE BELOW Normal [facility] Comment on above: Result Comment: 5-50 0.2-1 WEEK 50-500 1-2 WEEKS 100-5,000 2-3 WEEKS 500-10,000 3-4 WEEKS 1,000-50,000 4-5 WEEKS 10,000-100,000 5-6 WEEKS 15,000-200,000 6-8 WEEKS 10,000-100,000 2-3 MONTHS Performed By: #### RILEY VALERIO #### [facility] [address] [place] [address] Dr. Josie Sanchez HCG-BETA SUBUNIT QUANTon hCG,Beta Subunit,Qnt,Serum <1 Normal [facility] Comment on above: Result Comment: Fema le (Non-) 0 - 5 (Postmenopausal) 0 - 8 . Female () Weeks of Gestation 3 6 - 71 4 10 - 750 5 707 - 4055 6 158 - 97717 7 0753 -034803 8 17183 -110658 9 05219 -442454 10 79396 -668205 12 74798 -469776 14 61019 - 30258 15 27100 - 38424 16 0149 - 44532 17 0018 - 16500 18 2049 - 15307 Regina ECLIA methodology Performed By: #### RILEY VALERIO #### [facility] [address] [place] [address] Dr. Josie Sanchez CBC AUTO DIFFon 02-18-2022 BASO # 0.0 103/ul Normal 0.0-0.1 [facility] Comment on above: Performed By: #### C BC #### [facility] [address] [place] [address] Dr. Josie Sanchez Basophils/100 WBC (Bld) 0.2 % Normal 0.2-2.0 T [facility] Comment on above: Performed By: #### C BC #### [facility] [address] [place] [address] Dr. Josie Sanchez EO # 0.1 103/ul Normal 0.0-0.7 [facility] Comment on above: Performed By: #### C BC #### [facility] [address] [place] [address] Dr. Josie Sanchez Eosinophils/100 WBC (Bld) 0.8 % Critically low 0.9-7. 0 [facility] Comment on above: Performed By: #### C BC #### [facility] [address] [place] [address] Dr. Josie Sanchez Erythrocyte distribution width (RBC) [Ratio] 12.5 % Normal 11.0-15.0 [facility] Comment on above: Performed By: #### C BC #### [facility] [address] [place] [address] Dr. Josie Sanchez Hematocrit (Bld) [Volume fraction] 39.5 % Normal 36.0-48.0 [facility] Comment on above: Performed By: #### C BC #### [facility] [address] [place] [address] Dr. Josie Sanchez Hemoglobin (Bld) [Mass/Vol] 13.0 g/dL Normal 12.0-16.0 [facility] Comment on above: Performed By: #### C BC #### [facility] [address] [place] [address] Dr. Josie Sanchez IG # 0.02 10e3/ul Normal 0.00-0.03 [facility] Comment on above: Performed By: #### C BC #### [facility] [address] [place] [address] Dr. Josie Sanchez IG % 0.3 % Normal 0.0-0.5 [facility] Comment on above: Performed By: #### C BC #### [facility] [address] [place] [address] Dr. Josie Sanchez LYMPH # 1.5 103/ul Normal 1.2-3.8 [facility] Comment on above: Performed By: #### C BC #### [facility] [address] [place] [address] Dr. Josie Sanchez Lymphocytes/100 WBC (Bld) 22.9 % Normal 20.5-60.0 [facility] Comment on above: Performed By: #### C BC #### [facility] [address] [place] [address] Dr. Josie Sanchez MANUAL DIFF REQ NO Normal [facility] Comment on above: Performed By: #### C BC #### [facility] [address] [place] [address] Dr. Josie Sanchez MCH (RBC) [Entitic mass] 30.3 pg Normal 26.7-34.0 [facility] Comment on above: Performed By: #### C BC #### [facility] [address] [place] [address] Dr. Josie Sanchez MCHC (RBC) [Mass/Vol] 32.9 g/dL Normal 29.9-35.2 [facility] Comment on above: Performed By: #### C BC #### [facility] [address] [place] [address] Dr. Josie Sanchez MCV (RBC) [Entitic vol] 92.1 fL Normal 81.0-99.0 [facility] Comment on above: Performed By: #### C BC #### [facility] [address] [place] [address] Dr. Josie Sanchez MONO # 0.4 103/ul Normal 0.3-0.8 [facility] Comment on above: Performed By: #### C BC #### [facility] [address] [place] [address] Dr. Josie Sanchez Monocytes/100 WBC (Bld) 5.7 % Normal 1.7-12.0 [facility] Comment on above: Performed By: #### C BC #### [facility] [address] [place] [address] Dr. Josie Sanchez NEUT # 4.6 103/ul Normal 1.4-6.5 [facility] Comment on above: Performed By: #### C BC #### [facility] [address] [place] [address] Dr. Josie Sanchez Neutrophils/100 WBC (Bld) 70.1 % Normal 43.0-75.0 [facility] Comment on above: Performed By: #### C BC #### [facility] [address] [place] [address] Dr. Josie Sanchez Platelet mean volume (Bld) [Entitic vol] 10.0 fL Normal 9.5-13.5 [facility] Comment on above: Performed By: #### C BC #### [facility] [address] [place] [address] Dr. Josie Sanchez PLT 242 103/ul Normal 150-450 [facility] Comment on above: Performed By: #### C BC #### [facility] [address] [place] [address] Dr. Josie Sanchez RBC 4.29 106/ul Normal 4.20-5.40 [facility] Comment on above: Performed By: #### C BC #### [facility] [address] [place] [address] Dr. Josie Sanchez WBC 6.5 103/ul Normal 4.0-11.0 [facility] Comment on above: Performed By: #### C BC #### [facility] [address] [place] [address] Dr. Josie Sanchez LIPID PROFILEon 02-18-2022 CHOL-HDL RATIO NORM SEE BELOW Normal [facility] Comment on above: Result Comment: 3.3 - 4.4 LOW RISK 4.4 - 7.1 AVERAGE RISK 7.1 - 11.0 MODERATE RISK >11.0 HIGH RISK Performed By: #### L IPID, TSH #### [facility] [address] [place] [address] Dr. Josie Sanchez Cholesterol [Mass/Vol] 182 mg/dL Normal <=200 [facility] Comment on above: Performed By: #### L IPID, TSH #### [facility] [address] [place] [address] Dr. Josie Sanchez Cholesterol in HDL [Mass/Vol] 40 mg/dL Normal 40-60 [facility] Comment on above: Performed By: #### L IPID, TSH #### [facility] [address] [place] [address] Dr. Josie Sanchez Cholesterol in LDL [Mass/Vol] 122.4 mg/dL Normal [facility] Comment on above: Performed By: #### L IPID, TSH #### [facility] [address] [address] [address] Josie Sanchez Cholesterol.total/Choleste rol in HDL [Mass ratio] 4.6 {ratio} Normal [facility] Comment on above: Performed By: #### L IPID, TSH #### [facility] [address] [address] [address] Josie Sanchez HDL NORMAL > or = 60 mg/dl - LOW CARDIOVASCULAR RISK <40 mg/dl - HIGH CARDIOVASCULAR RISK Normal [facility] Comment on above: Performed By: #### L IPID, TSH #### [facility] [address] [address] [address] Josie Sanchez LDL CALC NORMAL SEE BELOW Normal [facility] Comment on above: Result Comment: <100 mg/dl OPTIMAL 100 - 129 mg/dl NEAR OR ABOVE OPTIMAL 130 - 159 mg/dl BORDERLINE HIGH 160 - 189 mg/dl HIGH >190 mg/dl VERY HIGH Performed By: #### L IPID, TSH #### [facility] [address] [address] [address] Josie Sanchez Triglyceride [Mass/Vol] 98 mg/dL Normal <=150 T [facility] Comment on above: Performed By: #### L IPID, TSH #### [facility] [address] [address] [address] Josie Sanchez VLDL CALC 19.6 mg/dL Normal [facility] Comment on above: Performed By: #### L IPID, TSH #### [facility] [address] [address] [address] Josie Sanchez PROTIMEon 02-18-2022 INR Coag (PPP) [Relative time] 1.10 {INR} Normal [facility] Comment on above: Performed By: #### P REGQNT #### [facility] [address] [place] [address] Dr. Josie Sanchez INR GUIDELINES SEE BELOW Normal [facility] Comment on above: Result Comment: PAULINA RED INR: 2.0 - 3.0 CONDITIONS NOT LISTED BELOW 2.5 - 3.5 FOR PROSTHETIC HEART VALVE REPLACEMENT 2.5 - 3.5 RECURRENT THROMBOSIS Performed By: #### P REGQNT #### [facility] [address] [place] [address] Dr. Josie Sanchez PT Coag (PPP) [Time] 11.8 s Critically high 9.0-11.6 [facility] Comment on above: Performed By: #### P REGQNT #### [facility] [address] [place] [address] Dr. Josie Sanchez PTTon 02-18-2022 aPTT Coag (Bld) [Time] 29.8 s Normal 22.3-36.2 [facility] Comment on above: Performed By: #### P REGQNT #### [facility] [address] [place] [address] Dr. Josie Sanchez TSHon 02-18-2022 TSH 3.410 uIU/mL Normal 0.358-3.[address] [facility] Comment on above: Performed By: #### L IPID, TSH #### [facility] [address] [place] [address] Dr. Josie Sanchez US PELVIS AND TRANSVAGon [...] by: PEREZ DURBIN Date: 2022-02-18 18:56 Normal [facility] Nursing Note - Woundon 08-15 Nursing Note - Wound [id number] 94640#3.00CD:127 Normal [facility] Coding Summary.on 08-08-2020 Coding Summary. CODING DATE: 08/08/2020 FINAL [facility] STATUS: Home (Routine DC) PAYOR: Medicaid [...] Jeannie Nur Date Saved: 08/08/2020 10:31 am [facility]son 08-08-2020 Forms [id number] 0459#1.00CD:127 [facility] Home Health Recordson 2019 Home Health Records [id number] 3EFD#1.00CD:127 [facility] Ambulatory Clinical Summaryo n 07-26-2020 Ambulatory Clinical Summary {2g-31-0o-61-26-59 -80-4w-52-05-b0-03 -33-60-e2-c7}CD:61 4368 [facility] 2019 Home Health Records [id number] 0EC7#1.00CD:127 [facility] Progress Note - Woundon 07-09 Progress Note - Wound [id number] 55686#2.00CD:127 [facility] Consent for Treatmenton 07-09 Consent for Treatment [id number] AFAA#1.00CD:127 [facility] Multi-Wound Charton 07-25-20 20 Multi-Wound Chart [id number] 80360#1.00CD:127 [facility] Nursing Assessment - Woundon 07-25-2020 Nursing Assessment - Wound [id number] 7.202 [id number] 61017#1.00CD:127 [facility] Physician Orderon 07-25-2020 Physician Order [id number] 51135#1.00CD:127 [facility] 2019 Home Health Records [id number] 3741#1.00CD:127 [facility] 2019 Home Health Records [id number] 3554#1.00CD:127 [facility] Coding Summary.on 07-12-2020 Coding Summary. 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 However, the narrative phrase printed from the coding software may appear abbreviated, or result in slightly different terminology. Coded By: Aicha Bledsoe CphT Date Saved: 07/12/2020 03:05 pm [facility] Coding Summary. 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 However, the narrative phrase printed from the coding software may appear abbreviated, or result in slightly different terminology. Coded By: Aicha Bledsoe CphT Date Saved: 07/12/2020 03:03 pm [facility] Multi-Wound Charton 07-12-20 20 Multi-Wound Chart [id number] 09624#1.00CD:127 [facility] Nursing Assessment - Woundon 07-12-2020 Nursing Assessment - Wound [id number] 7.202 [id number] 29680#1.00CD:127 [facility] Nursing Note - Woundon 07-12 Nursing Note - Wound [id number] 06252#1.00CD:127 [facility] Consent for Procedure/Surger yon 07-11-2020 Consent for Procedure/Surgery [id number] 08404#1.00CD:127 [facility] Consent for Treatmenton Consent for Treatment [id number] B36A#1.00CD:127 [facility] Record[facility] 2019 Home Health Records [id number] [id number]#1.00CD:127 [facility] Home Health Records [id number]#1.00CD:127 [facility] Physician Orderon 07-11-2020 Physician Order [id number]#1.00CD:127 [facility] Progress Note - Woundon Progress Note - Wound [id number] 08010#1.00CD:127 [facility] Nursing Note - Woundon 07-02 Nursing Note - Wound [id number] 37690#3.00CD:127 [facility] Consent for Procedure/Surger yon 06-28-2020 Consent for Procedure/Surgery [id number] 0200#1.00CD:127 [facility] Consent to Photographon 06-10 Consent to Photograph [id number] 0326#1.00CD:127 [facility] HIPAA Privacy Documentson HIPAA Privacy Documents [id number]. [id number] 0158#1.00CD:127 [facility] Nursing Note - Woundon 06-28 Nursing Note - Wound [id number]. [id number] 0289#1.00CD:127 [facility] Nursing Note - Wound [id number]. [id number] 0217#1.00CD:127 [facility] Consent for Treatmenton 06-09 Consent for Treatment [id number] EEDA#1.00CD:127 [facility] Multi-Wound Charton 06-27-20 20 Multi-Wound Chart [id number] 77796#1.00CD:127 [facility] Nursing Assessment - Woundon 06-27-2020 Nursing Assessment - Wound [id number] [id number] 17786#1.00CD:127 [facility] Physician Orderon 06-27-2020 Physician Order [id number] 42610#2.00CD:127 [facility] Progress Note - Woundon 06-09 Progress Note - Wound [id number] 71353#1.00CD:127 [facility] HIPAA Privacy Documentson HIPAA Privacy Documents [id number] 02 [id number]#1.00CD:127 [facility] Outside Records Officeon Outside Records Office [id number] 2 [id number]#1.00CD:127 [facility] Vital Signs Date Time Vital Sign Value Performing Clinician Facility 07-28-2024 11:10-0500 Body mass index (BMI) [Ratio] 31.09 kg/m2 [facility] 07-28-2024 11:10-0500 Body weight 72.21 kg [facility] 07-28-2024 11:10-0500 Diastolic blood pressure 91 mm[Hg] [facility] 07-28-2024 11:10-0500 Systolic blood pressure 122 mm[Hg] [facility] 11-20-2022 15:05-0400 Body height 152.4 cm Gloria Hayden Other [facility] Other 11-20-2022 15:05-0400 Body mass index (BMI) [Ratio] 11.72 kg/m2 Gloria Hayden Other [facility] Other 11-20-2022 15:05-0400 Body temperature 97.7 [degF] Gloria Hayden Other [facility] Other 11-20-2022 15:05-0400 Body weight 27.22 kg Gloria Hayden Other [facility] Other 11-20-2022 15:05-0400 Respiratory rate 18 /min Gloria Valdovinosmond Other [facility] Other 11-20-2022 15:05-0400 SaO2% (BldA) [Mass fraction] 97 % Gloria Hayden Other [facility] Other Encounters Encounter Date Encounter Type Care Provider Facility Start: 07-28-2024 End: 07-28-2024 [facility] Result Encounter Norbert Silvia DO Work Phone: [facility] External Department Unsolicited Start: 07-28-2024 End: 07-28-2024 [facility] Result Encounter Norbert Silvia DO Work Phone: [facility] External Department Unsolicited Start: 07-28-2024 End: 07-28-2024 Office outpatient visit 5 minutes [facility] Silvia Nurse [facility] Comment on above: GA: 10w6d Start: 06-27-2024 End: 06-27-2024 [facility] Result Encounter [...] Available Start: 09-20-2023 [facility] Result Encounter Norbert Vega [...] 11-20-2022 End: 11-20-2022 ambulatory Gloria Hayden Other [facility] Other Start: 11-20-2022 Office outpatient vi sit 15 minutes Gloria Hayden [facility] Start: 11-18-2022 End: 11-19-[address] NORBERT [...] laboratory examination DR NORBERT VEGA . [facility] Start: 05-08-2022 End: 05-08-[address] [...] Date Procedure Procedure Detail Performing Clinician Start: 07-28-2024 BOX TEST Norbert Fazi o DO Work Phone: Start: 07-28-2024 End: 07-28-2024 Urnls dip stick/tablet rgnt non-auto w/o micrscp Norbert Silvia DO Work Phone: Start: 06-27-2024 [facility] PREG QUANT HCG Core [...] PM EDT Office Visit [facility] [address] [place] [address] Norbert Vega, DO [address] [place] [address] [facility] Start: 09-04-2024 End: 09-04-2024 Patient encounter procedure 09/04/2024 1:40 PM EST Routine [facility] [address] [place] [id number] Norbert Vega, DO [address] [place] [address] [facility] Start: 07-28-2024 End: 07-28-2025 ABO/Rh ABO/Rh Lab Routine Missed menses , unspecified gestational age Expected: 07/28/2024 (Approximate), Expires: 07/28/2025 [facility] Comment on above: Expected: 07/28/2024 (Approximate), Expires: 07/28/2025 Start: 07-28-2024 End: 07-28-2025 Blood type and Indirect antibody screen panel - Blood Type and screen Lab Routine Missed menses , unspecified gestational age Expected: 07/28/2024 (Approximate), Expires: 07/28/2025 [facility] Work Phone: Comment on above: Expected: 07/28/2024 (Approximate), Expires: 07/28/2025 Start: 07-28-2024 End: 07-28-2025 Drugs of abuse panel - Urine by Screen method Rapid drug screen, urine Lab Routine , unspecified gestational age Encounter for supervision of normal first in first trimester Expected: 07/28/2024 (Approximate), Expires: 07/28/2025 [facility] Comment on above: Expected: 07/28/2024 (Approximate), Expires: 07/28/2025 Start: 07-28-2024 End: 07-28-2025 US Pelvis transvaginal US OB transvaginal Imaging Routine Missed menses Expected: 07/28/2024 (Approximate), Expires: 07/28/2025 [facility] Comment on above: Expected: 07/28/2024 (Approximate), Expires: 07/28/2025 Start: 07-28-2024 End: 07-28-2024 ambulatory 07/28/2024 10:30 AM EST Initial [facility] [address] [place] [address] [facility] Bacteria identified in Urine by Culture Urine culture Microbiology Routine Missed menses Ordered: 07/28/2024 [facility] Comment on above: Ordered: 07/28/2024 CBC W Auto Different ial panel - Blood CBC and differential Lab Routine Missed menses , unspecified gestational age Ordered: 07/28/2024 [facility] Comment on above: Ordered: 07/28/2024 Hemoglobin A1c/Hemoglobin.total in Blood Hemoglobin A1c Lab Routine Missed menses , unspecified gestational age Ordered: 07/28/2024 [facility] Comment on above: Ordered: 07/28/2024 Hepatitis B virus surface Ag [Presence] in Serum or Plasma by Immunoassay Hepatitis B surface antigen Lab Routine Missed menses , unspecified gestational age Ordered: 07/28/2024 [facility] Comment on above: Ordered: 07/28/2024 Hepatitis C virus Ab [Presence] in Serum or Plasma by Immunoassay Hepatitis C antibody Lab Routine Missed menses , unspecified gestational age Ordered: 07/28/2024 [facility] Comment on above: Ordered: 07/28/2024 HIV-1/HIV-2 antigen/antibody combination immunoassay HIV-1 and HIV-2 antibodies Lab Routine Missed menses , unspecified gestational age Ordered: 07/28/2024 [facility] Comment on above: Ordered: 07/28/2024 Reagin Ab [Presence] in Serum by RPR RPR Lab Routine Missed menses , unspecified gestational age Ordered: 07/28/2024 [facility] Comment on above: Ordered: 07/28/2024 Rubella antibody, IgG Rubella an tibody, IgG Lab Routine Missed menses , unspecified gestational age Ordered: 07/28/2024 [facility] Comment on above: Ordered: 07/28/2024 Payers Date Payer Category Payer Medicaid [id number] 2. [id number] 2022 Medicaid [id number] 1985 Unknown [id number] 2.16.84 0.1.927037.3.579.2.593 1985 Unknown [id number] 2.16.84 0.1.743653.3.579.2.593 1985 Unknown [id number] 2.16.84 0.1.332680.3.579.2.593 1985 Unknown [id number] 2.16.84 0.1.405960.3.579.2.593 1985 Unknown [id number] 2.16.84 0.1.069083.3.579.2.593 1985 Unknown [id number] 2.16.84 0.1.622454.3.579.2.593 1985 Unknown [id number] 2.16.84 0.1.592043.3.579.2.593 1985 Unknown [id number] 2.16.84 0.1.739133.3.579.2.593 1985 Unknown [id number] 2.16.84 0.1.533811.3.579.2.593 1985 Unknown [id number] 2.16.84 0.1.576209.3.579.2.593 1985 Unknown [id number] 2.16.84 0.1.012342.3.579.2.593 1985 Unknown [id number] 2.16.84 0.1.739082.3.579.2.593 1985 Unknown [id number] 2.16.84 0.1.690778.3.579.2.593 1985 Unknown [id number] 2.16.84 0.1.936664.3.579.2.593 1985 Unknown [id number] 2.16.84 0.1.492388.3.579.2.593 1985 Unknown [id number] 2.16.84 0.1.666325.3.579.2.593 1985 Unknown [id number] 2.16.84 0.1.997039.3.579.2.593 1985 Unknown [id number] 2.16.84 0.1.993903.3.579.2.593 1985 Unknown [id number] 2.16.84 0.1.444196.3.579.2.593 1985 Unknown [id number] 2.16.84 0.1.317056.3.579.2.593 1985 Unknown [id number] 2.16.84 0.1.444034.3.579.2.1259 1985 Unknown [id number] 2.16.84 0.1.483882.3.579.2.1259 1985 Unknown [id number] 2.16.84 0.1.913624.3.579.2.1259 1985 Unknown [id number] 2.16.840 .1.843543.3.579.2.1259 1959 Self-pay 1959 Unknown [id number] Social History Date Type Detail Facility Unknown if ever smoked [facility] Start: 12-21-2022 End: 12-06-2023 Sex Assigned At [facility] Start: 12-21-2022 Tobacco smoking status IAIS Never smoked tobacco [facility] Start: 12-21-2022 Tobacco use and exposure Smokeless tobacco non-user [facility] Start: 08-23-2023 End: 07-28-2024 Alcohol intake Current drinker of alcohol (finding) [facility] Start: 12-21-2022 End: 12-06-2023 History of Social function [facility] Start: 01-14-2023 Alcohol Comment caffeine intak e: occasionally [facility] Start: 1985 Sex Assigned At Not on file [facility] Start: 05-27-2024 [facility] History of Present illness Narrative 07-28-2024 Gemma Dumont, SPORTS OFFICIAL - 07/28/2024 10:30 AM EST Note Date & Type Note Facility 07-28-2024 History of Presen t illness Narrative Reason for Appointment: Patient ID: Jannie Sanon is a 38 y.o. female who presents for No chief complaint on file. Patient presents today for a Nurse OB Intake appointment. Patient is 10w6d with a Estimated Date of Delivery: 02/17/25 OB History Para Term AB Living 9 4 4 4 4 SAB IAB Ectopic Multiple Live Births 4 4 # Outcome Date GA Lbr Durga/2nd Weight Sex Type Anes PTL Lv 9 Current 8 Term 11/10/10 6 lb 8 oz F CS-LTranv BAO 7 Term 04/20/08 6 lb 6 oz F CS-LTranv BAO 6 Term 10/26/06 6 lb 2 oz F CS-LTranv BAO 5 Term 11/13/04 6 lb 14 oz F CS-LTranv BAO 4 SAB 3 SAB 2 SAB 1 SAB Obstetric Comments -4 Current Medications: has a current medication list which includes the following prescription(s): aspirin, bupropion xl, cholecalciferol, co-enzyme q-10, omega-3, mv-min-fe fum-fa-dha, and progesterone. Medical History: Active Ambulatory Problems Diagnosis Date Noted Anxiety, generalized (CMS/HCC) 01/15/2023 Resolved Ambulatory Problems Diagnosis Date Noted No Resolved Ambulatory Problems Past Medical History: Diagnosis Date Abnormal uterine bleeding Depression (CMS/HCC) Dysmenorrhea History of History of D&C Hx of tubal ligation Miscarriage Family History Adopted: Yes Problem Relation Name Age of Onset Mental illness Mother Breast cancer Paternal Great-Grandmother 2 half sisters 5 half brothers Social History Tobacco Use Smoking status: Never Smokeless tobacco: Never Substance Use Topics Alcohol use: Yes Alcohol/week: 1.0 - 2.0 standard drink of alcohol Types: 1 - 2 Standard drinks or equivalent per week Comment: caffeine intake: occasionally Drug use: Never Past Surgical History: Procedure Laterality Date SECTION, LOW TRANSVERSE x4 PAP SMEAR 06/18/2021 negative [place] DILATION & CURETTAGE DX&/THER NONOBSTETRIC TONSILLECTOMY TUBAL LIGATION Allergies Allergen Reactions Penicillins Unknown Vitals: Estimated body mass index is 31.09 kg/m as calculated from the following: Height as of 23: 5'. Weight as of this encounter: 159 lb 3.2 oz. BP: (!) 122/91 Patient's last menstrual period was 05/13/2024. Assessment/Plan Diagnoses and all orders for this visit: Missed menses - Type and screen; Future - ABO/Rh; Future - CBC and differential - Hemoglobin A1c - RPR - Rubella antibody, IgG - Hepatitis B surface antigen - Hepatitis C antibody - HIV-1 and HIV-2 antibodies - Urine culture - US OB transvaginal; Future - POCT , urine manually resulted - POCT urinalysis dipstick manually resulted , unspecified gestational age - Type and screen; Future - ABO/Rh; Future - CBC and differential - Hemoglobin A1c - RPR - Rubella antibody, IgG - Hepatitis B surface antigen - Hepatitis C antibody - HIV-1 and HIV-2 antibodies - Rapid drug screen, urine; Future Encounter for supervision of normal first in first trimester - Rapid drug screen, urine; Future Nurse Note: OB Intake: Patient presents today for first OB visit. Patients history has been reviewed in great detail including any potential risks. Patient signed consent forms and patient desires testing in both trimesters. Patient currently has no complaints and has been advised to drink 6-8 glasses of water a day, eat no raw or undercooked meat, and stay away from [facility]. Patient has also been advised to not change litter boxes and eat 6 small meals a day. Patient has been consulted regarding the do's and don'ts of . Patient was given labs and all questions and concerns were answered. Follow Up: Patient is to return in 4 weeks for routine OB appointment. Follow Up: Patient is to have labs drawn at directed and return to office for initial OB appointment with provider. Patient may call office as needed with any concerns or questions. Nurse Visit Completed by: Gemma Dumont LPN documented in this encounter [facility] Evaluation note 11-20-2022 Note Date [...] Contact dermatitis home care material was printed [facility] Clinical Note 05-08-2022 Note Date & [...] authenticated by: PEREZ DURBIN Date: 2022-05-08 18:03 [facility] Clinical Note 05-08-2022 Note Date & Type Note Facility 05-08-2022 Note OPERATIVE NOTE OPERATION DATE: 05/08/2022 PROCEDURE: Suction D AND C. PREOPERATIVE DIAGNOSIS: 1. Suspected molar during first trimester. 2. Uterine mass approximately 4.5 cm. POSTOPERATIVE DIAGNOSIS: 1. Suspected molar during first trimester. 2. Uterine mass approximately 4.5 cm. 3. Significant large amounts of retained products. SURGEON: Norbert Vega D.O. LEAN COACH: None. BLOOD LOSS: 100 mL. URINE OUTPUT: [...] products of conception were removed using a 9-Italian suction curette tip. Excellent hemostasis was noted. The patient tolerated the procedure well. Sponge, lap, and needle counts were correct x 2. All instruments were then removed from the patient's vagina. The patient was taken to the Recovery Room in stable condition. ?? [facility] Evaluation note Note Date & Type Note Facility Evaluation note Diagnosis Missed menses , unspecified gestational age Encounter for supervision of normal first in first trimester documented in this encounter [facility] History general Narrative - Reported Note Date & Type Note Facility History general Narrative - Reported Type Medical History Hypercholesterolemia Medical History Hormone imbalance Medical History Vitamin D deficiency Medical History Iron deficiency Surgical History C section Surgical History oral surgery Surgical History tonsillectomy and adenoidectomy Surgical History D&C 2021 Hospitalization History child [facility] Other Summary Purpose Family History No Family History Records FoundNo Family History Records FoundNo Family History Records Found Advance Directives No Advanced Directives Records FoundNo Advanced Directives Records FoundNo Advanced Directives Records Found Additional Source Comments INFORMATION SOURCE (unrecogn ized section and content) DATE CREATED AUTHOR 08/15/2020 [facility] DATE CREATED AUTHOR AUTHOR'S ORGANIZ ATION 12/22/2022 [facility] DATE CREATED AUTHOR AUTHOR'S ORGANIZ ATION 12/07/2023 [facility] EPIC REASON FOR VISIT (unrecogniz ed section and content) Reason Comments Amenorrhea Care Teams (unrecognized sec tion and content) Email Specialist Relationship Specialty Start Date End Date Quoc Watts MD [address] [place] [address] PCP - General Family Medicine 12/28/22 Email Specialist Relationship Specialty Start Date End Date Quoc Watts MD [address] [place] [address] PCP - General Family Medicine 12/28/22 Email Specialist Relationship Specialty Start Date End Date Quoc Watts MD [address] [place] [id number] PCP - General Family Medicine 12/28/22 Email Specialist Relationship Specialty Start Date End Date Quoc Watts MD [address] [place] [address] PCP - General Family Medicine 12/28/22 Email Specialist Relationship Specialty Start Date End Date Quoc Watts MD [address] [place] [address] PCP - General Family Medicine 12/28/22 FOR [...] BE BASED ON THE PRIMARY CLINICAL RECORDS. [facility]. provides no warranty or guarantee of the accuracy or completeness of information in this document.
[2024-07-31 15:26] LABS: BOX Test Reference Lab FIRELANDS
== END 2024-07-31 14:36 | disposition home or self-care (01) ==
LOC: LAB 14:35
PROVIDERS: PCP Obstetrics & Gynecology; Visit Provider Obstetrics & Gynecology
DX: Z34.01 Encounter for supervision of normal first pregnancy, first trimester (principal); N92.6 Irregular menstruation, unspecified
CPT/HCPCS: 36415; 80307; 87086

== ENCOUNTER 2024-09-13 12:19 | Outpatient (OUT) | payer MEDICAID, SELFPAY ==
--- OUTSIDE RECORDS SUMMARY | 2024-09-13 12:23 | XMS_ITS | CCD ---
Author Organization [facility] CliniSy[facility] Care Team Providers Care Inserting Machine Operator Name Role Phone Gloria Hayden Unavailable MAC [...] HOY ., DR KUMARI Primary Care Unavailable CASPAR, DR PEREZ Luther Consulting Unavailable SILVIA ., DR TOUSSAINT Attending Unavailable SILVIA ., DR TOUSSAINT Consulting Unavailable HOY ., DR KUMARI Primary Care Unavailable CASPAR, DR PEREZ Luther Consulting Unavailable SILVIA ., DR TOUSSAINT Admitting Unavailable SILVIA ., DR TOUSSAINT Attending Unavailable SILVIA ., DR TOUSSAINT Consulting Unavailable SILVIA ., DR TOUSSAINT Admitting Unavailable HOY ., DR KUMARI Primary Care Unavailable CASPAR, DR PEREZ Luther Consulting Unavailable SILVIA ., [...] Unavailable Quoc Watts MD Primary Care Provider Norbert Vega Attending Unavailable Silvia, Norbert Admitting Unavailable NORBERT VEGA Attending Unavailable NORBERT VEGA Attending Unavailable NORBERT VEGA Attending Unavailable Mac VILLARREAL, Quoc Cedeno Primary Care Provider [phone] Allergies Allergy Classification Reported Allergen(s) Allergy Type Date of Onset Reaction(s) Facility (1 source) Penicillin G Drug Allergy throat swelling meebee Other (1 source) Cefaclor Drug Allergy [facility] Repository (2 sources) Penicillins Drug allergy (disorder) 01-26-20 16 [facility] Repository (10 sources) Penicillins Drug Intolerance 10-21-19 19 Unknown [facility] Work Phone: (1 source) Penicillin Drug Allergy 11-21-19 23 [facility] Repository (1 source) Penicillins Propensity to adverse reactions to drug 10-21-19 [facility] Medications Current Medications Medication Drug Class(es) Dates Sig (Normalized) Sig (Original) aspirin 81 mg chewable tablet (12 sources) Platelet Aggregation Inhibitor, Nonsteroidal Anti-inflammatory Drug aspirin 81 mg chewable tablet Chew 1 tablet (81 mg total) and swallow in the morning. Active take 1 tablet by mouth in the mo rning aspirin 81 MG EC tablet Take 81 mg by mouth in the morning. Active 24 hr buPROPion hydrochloride 300 mg extended release oral tablet (7 sources) Aminoketone Start: 06-18-2024 take 1 tablet by mouth every twenty-four hours in the morning buPROPion XL (Wellbutrin XL) 300 MG 24 hr tablet Take 300 mg by mouth in the morning. 06/18/2024 Active cholecalciferol 0.025 mg oral tablet (12 sources) Vitamin D take 1 tablet by mouth in the morning cholecalciferol 1,000 units tablet Take 1 tablet (1,000 Units total) by mouth in the morning. Active cholecalciferol (Vitamin D-3) 25 MCG (1000 UT) capsule Take by mouth Daily. Active take 1 tablet by jackie th every twenty-four hours Vitamin D3 50 MCG (1999 UT) 1 tablet Ora lly Once a day Active citalopram 20 mg oral tablet (2 sources) Serotonin Reuptake Inhibitor Start: 06-28-2024 End: 07-28-2024 take 1 tablet by mouth once daily citalopram (CeleXA) 20 MG tablet Indications: Anxiety, generalized (CMS/HCC) , HERNANDEZ (generalized anxiety disorder) (CMS/HCC) Take 1 tablet (20 mg) by mouth Daily 30 tablet 11 06/28/2024 07/28/2024 Discontinued DHEA 50 MG (1 source) DHEA 50 MG take 2 Orally daily Active Fish Oils (6 sources) take 1 capsule by mouth once [...] 1 tablet Orally Once a day Active omega 2-dzn-apt-fish oil (Fish OiL) 300-1,000 mg capsule (1 source) take 300-1000 mg by mouth once daily omega 6-dfn-rmd-fish oil (Fish OiL) 300-1,000 mg capsule Take 1 capsule by mouth once daily. Active polysaccharide iron complex 391 mg oral [...] source) Active MV-Min-Fe Fum-FA-DHA ( 1 PO) (6 sources) MV-Min- Fe Fum-FA-DHA ( 1 PO) [...] days 45 g 06/23/2024 06/30/2024 Active ubidecarenone 50 mg oral capsule (7 sources) take 1 capsule by mouth once in the morning coenzyme Q10 50 mg capsule Take 1 capsule (50 mg total) by mouth in the morning. Active take 1 capsule by mouth once hallie ly co-enzyme Q-10 30 MG capsule Take 30 [...] with EVENING MEAL 0 06/09/2023 Active End: 11-20-2024 take 1 tablet by mouth at mealtime, [...] Discontinued (Other) progesterone 100 mg oral capsule (4 sources) Progesterone Start: 10-14-2023 End: 10-13-2024 take 1 capsule by mouth once daily at bedtime progesterone 100 MG capsule Indications: Miscarriage Take 1 capsule (100 mg) by mouth at bedtime Start on day 19 of her cycle. 90 capsule 3 10/14/2023 06/28/2024 Discontinued (Other) take 1 capsule by mouth in the m orning progesterone (PROMETRIUM) 200 mg capsule Take 1 capsule (200 mg total) by mouth in the morning. Active simvastatin 40 mg oral tablet (9 sources) [...] Active Problems Problem Classification Problem Date Documented Date Episodic/Chronic Allergic reactions (1 source) Unspecified contact dermatitis, unspecified cause Episodic Anxiety disorders (10 sources) Generalized anxiety disorder; Translations: [Generalized anxiety disorder] Onset: 01-15-2023 01-15-2023 Chronic Menstrual disorders (9 sources) Excessive and frequent menstruation with irregular cycle; Translations: [Irregular menstruation, unspecified] Onset: 06-22-2022 Chronic Mood disorders (2 sources) Major depressive disorder, single episode, unspecified; Translations: [Mild major depression, single episode] Onset: 04-19-2018 04-19-2018 Chronic Other female genital disorders (4 sources) Abnormal uterine and vaginal bleeding, unspecified; Translations: [ABNORMAL UTERINE VAGINAL BLEED UNS] Onset: 02-18-2022 Chronic Other and delivery including normal (4 sources) ; Translations: [Encounter for supervision of normal , unspecified, unspecified trimester] 07-28-2024 Episodic Other screening for suspected conditions (not mental disorders or infectious disease) (1 source) Abnormal findings on diagnostic imaging of other specified body structures; Translations: [ABNORML FIND DX IMG OT BODY STRUC] Onset: 11-22-2022 Chronic Other screening for suspected conditions (not mental disorders or infectious disease) (4 sources) Alpha-fetoprotein blood test status; Translations: [Encounter for screening for raised alphafetoprotein level] 09-04-2024 Episodic Ovarian cyst (2 sources) Unspecified ovarian cyst, left side; Translations: [Other ovarian cyst, left side] Onset: 02-19-2022 Episodic Residual codes; unclassified (2 sources) Gestation period, 16 weeks; Translations: [16 weeks gestation of ] 09-04-2024 Episodic Unclassified (1 source) CONTACT W/AND (SUSP) [...] Test Name Value Interpretation Reference Range Facility Urinalysis macro (dipstick) panel (U)on 09-04-2024 Bilirubin, UA Negative Negative - 4(70) +++ mg/dL [facility] Blood, UA Negative Negative - 50 Doroteo/mcL [facility] Clarity, UA Clear [facility] Color, UA Yellow [facility] Glucose, UA Negative Negative - 1999(110) ++++ mg/dL [facility] Interpretation and review of laboratory results Abnormal [facility] Ketones, UA Negative Negative - 160(16) ++++ mg/dL [facility] Leukocytes, UA Negative Negative - 500+++ Celina/mcL [facility] Nitrite, UA Negative Negative - Positive [facility] pH, UA 6.5 5 - 9 [facility] Protein, UA Negative Negative - 1999(20) ++++ mg/dL [facility] Spec Grav, UA 1.02 1 - 1.03 [facility] Urobilinogen, UA 0.2 0.2 - 12 mg/dL [facility] DRUG SCREEN RAPID (URINE )on 07-31-2024 AMPHETAMINE SCREEN URINE Negative NEGATIVE [facility] BARBITURATES SCREEN URINE Negative NEGATIVE [facility] BENZODIAZEPINES SCREEN URINE Negative NEGATIVE [facility] BUPRENORPHINE SCREEN URINE Negative NEGATIVE [facility] Comment on above: DRUG CLASS TEST SYST EM CUT-OFF CONCENTRATIONS ARE FOLLOWS: AMP (Amphetamine): 500 ng/mL BAR (Barbiturates): 200 ng/mL BZO (Benzodiazepines): 150 ng/mL BUP (Buprenorphine): 10 ng/mL MARKY (Cocaine): 150 ng/mL mAMP (Methamphetamine): 500 ng/mL MTD (Methadone): 200 ng/mL OPI (Opiates): 100 ng/mL OXY (Oxycodone): 100 ng/mL PCP (Phencyclidine): 25 ng/mL THC (Cannabinoids): 50 ng/mL TCA (Trycyclic Antidepressants): 300 ng/mL CANNABINOID SCREEN URINE Negative [facility] COC[facility]INE [facility]INE Negative [facility] METHADONE SCREEN URINE Negative NEGATIVE [facility] METHAMPHETAMINES SCREEN URINE Negative NEGATIVE [facility] OPIATE SCREEN URINE Negative [facility] OXYCODONE SCREEN URINE Negative NEGATIVE [facility] PHENCYCLIDINE SCREEN URINE Negative NEGATIVE [facility] TRICYCLIC ANTIDEPRESSANT URINE Negative NEGATIVE [facility] CLINISYNC [facility] Urine Cultureon 07-31-2024 Bacteria identified Cx Nom (U) 20,000 colonies/ml mixed bacterial skin contaminants 2 Days PERFORMED BY: [place] [address] PATHOLOGIST CARDIOVASCULAR OPERATING ROOM NURSE NAIDA GARZON M.D. [place] [facility] Comment on above: Performed By: #### C UU #### [address] BOX TESTon 07-28-2024 BOX TEST SENT OUT [facility] [address] [facility] [address] 07/28/24 [facility] BOX [facility] HCG ( test) Ql (U)o n 07-28-2024 Interpretation and review of laboratory results Abnormal [facility] Preg Test, Ur Positive Negative [facility] Urinalysis macro (dipstick) panel (U)on 07-28-2024 Bilirubin, UA Negative Negative - 4(70) +++ mg/dL [facility] Blood, UA Positive Negative - 50 Doroteo/mcL [facility] Clarity, UA Clear [facility] Color, UA Yellow [facility] Glucose, UA Negative Negative - 2000(110) ++++ mg/dL [facility] Interpretation and review of laboratory results Abnormal [facility] Ketones, UA Negative Negative - 160(16) ++++ mg/dL [facility] Leukocytes, UA Negative Negative - 500+++ Celina/mcL [facility] Nitrite, UA Negative Negative - Positive [facility] pH, UA 6.5 5 - 9 [facility] Protein, UA Trace Negative - 2000(20) ++++ mg/dL [facility] Spec Grav, UA 1.025 1 - 1.03 [facility] Urobilinogen, UA 0.2 0.2 - 12 mg/dL [facility] PREG QUANT HCGon 06-27- 024 HCG QUANTITATIVE 96336 mIU/mL [facility] Comment on above: 5-50 0.2-1 WEEK 50-500 1-2 WEEKS 100-5,000 2-3 WEEKS 500-10,000 3-4 WEEKS 1,000-50,000 4-5 WEEKS 10,000-100,000 5-6 WEEKS 15,000-200,000 6-8 WEEKS 10,000-100,000 2-[facility] HCGon 06-21- 024 HCG QUANTITATIVE 4062 mIU/mL [facility] Comment on above: 5-50 0.2-1 WEEK 50-500 1-2 WEEKS 100-5,000 2-3 WEEKS 500-10,000 3-4 WEEKS 1,000-50,000 4-5 WEEKS 10,000-100,000 5-6 WEEKS 15,000-200,000 6-8 WEEKS 10,000-100,000 2-[facility] 06-19- 024 HCG QUANTITATIVE 3108 mIU/mL [facility] Comment on above: 5-50 0.2-1 WEEK 50-500 1-2 WEEKS 100-5,000 2-3 WEEKS 500-10,000 3-4 WEEKS 1,000-50,000 4-5 WEEKS 10,000-100,000 5-6 WEEKS 15,000-200,000 6-8 WEEKS 10,000-100,000 2-[facility] WITH AUTO DIFFon BASOPHILS ABSOLUTE AUTO 0.0 [facility] Basophils/100 WBC (Bld) 0.2 % 0.2 - 2.0 % [facility] Eosinophils/100 WBC (Bld) 0.8 % Low 0.9 - 7.0 % [facility] Erythrocyte distribution width (RBC) [Ratio] 13.4 % 11.0 - 15.0 % [facility] Hematocrit (Bld) [Volume fraction] 42.3 % 36.0 - 48.0 % [facility] Hemoglobin (Bld) [Mass/Vol] 13.6 g/dL 12.0 - 16.0 g/dL [facility] IMMATURE GRANULOCYTES ABS AUTO 0.02 [facility] Immature granulocytes/100 WBC (Bld) 0.3 % 0.0 - 0.5 % [facility] Interpretation and review of laboratory results Abnormal [facility] LYMPHOCYTES ABSOLUTE AUTO 1.7 [facility] Lymphocytes/100 WBC (Bld) 26.5 % 20 .5 - 60.0 % [facility] MCH (RBC) [Entitic mass] 30.1 pg 26. 7 - 34.0 pg [facility] MCHC (RBC) [Mass/Vol] 32.2 g/dL 29.9 - 35.2 g/dL [facility] MCV (RBC) [Entitic vol] 93.6 fL 81.0 - 99.0 fL [facility] MONOCYTES ABSOLUTE AUTO 0.5 N [facility] Monocytes/100 WBC (Bld) 7.3 % 1.7 - 12.0 % [facility] NEUTROPHILS ABSOLUTE AUTO 4.3 [facility] Neutrophils/100 WBC (Bld) 64.9 % 43 .0 - 75.0 % [facility] Platelet mean volume (Bld) [Entitic vol] 10.8 fL 9.5 - 13.5 fL [facility] EO # 0.1 [facility] PLT 220 [facility] TB RBC 4.52 [facility] WBC 6.5 [facility] PROGESTERONEon 12-19-2022 Progesterone 9.6 ng/mL Normal [facility] Comment on above: Result Comment: Foll icular phase 0.1 - 0.9 Luteal phase 1.8 - 23.9 Ovulation phase 0.1 - 12.0 First trimester 11.0 - 44.3 Second trimester 25.4 - 83.3 Third trimester 58.7 - 214.0 Postmenopausal 0.0 - 0.1 Performed By: #### P DAXA #### [facility] [address] [place] [address] Dr. Josie Sanchez PROGESTERONEon 11-19-2022 Progesterone 6.3 ng/mL Normal [facility] Comment on above: Result Comment: Foll icular phase 0.1 - 0.9 Luteal phase 1.8 - 23.9 Ovulation phase 0.1 - 12.0 First trimester 11.0 - 44.3 Second trimester 25.4 - 83.3 Third trimester 58.7 - 214.0 Postmenopausal 0.0 - 0.1 Performed By: #### P ROGES #### [facility] [address] [address] [address] Josie Sanchez PREG QUANT HCGon 11-18-2022 HCG QUANT <1 Normal [facility] Comment on above: Performed By: #### P REGQNT #### [facility] [address] [address] [address] Josie Sanchez HCG RANGE SEE BELOW Normal [facility] Comment on above: Result Comment: 5-50 0.2-1 WEEK 50-500 1-2 WEEKS 100-5,000 2-3 WEEKS 500-10,000 3-4 WEEKS 1,000-50,000 4-5 WEEKS 10,000-100,000 5-6 WEEKS 15,000-200,000 6-8 WEEKS 10,000-100,000 2-3 MONTHS Performed By: #### P REGQNT #### [facility] [address] [address] [address] Josie Sanchez US PELVIS AND TRANSVAGon [...] of a yolk sac as noted by cytometry technologist. No significant free pelvic fluid is [...] by: RENE MEYERS Date: 2022-11-16 18:09 Normal [facility] DHEA SERUMon 11-11-2022 Dehydroepiandrosterone (DHEA) 335 ng/dL Normal 31-701 [facility] Comment on above: Performed By: #### RILEY VALERIO #### [facility] [address] [place] [address] Dr. Josie Sanchez DHEA-SULFATEon 11-10-2022 DHEA-Sulfate 251.0 ug/dL Normal 57.3-279.2 [facility] Comment on above: Performed By: #### P REGQNT #### [facility] [address] [place] [address] Dr. Josie Sanchez ESTRADIOLon 11-10-2022 Estradiol 66.1 pg/mL Normal [facility] Comment on above: Result Comment: Adul t Female: Follicular phase 12.5 - 166.0 Ovulation phase 85.8 - 498.0 Luteal phase 43.8 - 211.0 Postmenopausal <6.0 - 54.7 1st trimester 215.0 - >4300.0 [place] ECLIA methodology Performed By: #### RILEY VALERIO #### [facility] [address] [place] [address] Dr. Josie Sanchez FSHon 11-10-2022 FSH 6.9 mIU/mL Normal [facility] Comment on above: Result Comment: Adul t Female: Follicular phase 3.5 - 12.5 Ovulation phase 4.7 - 21.5 Luteal phase 1.7 - 7.7 Postmenopausal 25.8 - 134.8 Performed By: #### P REGQNT #### [facility] [address] [place] [address] Dr. Josie Sanchez LUTEINIZING HORMONE (LH)on 0 11-10-2022 LH 9.9 mIU/mL Normal [facility] Comment on above: Result Comment: Adul t Female: Follicular phase 2.4 - 12.6 Ovulation phase 14.0 - 95.6 Luteal phase 1.0 - 11.4 Postmenopausal 7.7 - 58.5 Performed By: #### Clyde MEANS UMICRO #### [facility] [address] [place] [address] Dr. Josie Sanchez CBC AUTO DIFFon 11-09-2022 BASO # 0.0 103/ul Normal 0.0-0.1 [facility] Comment on above: Performed By: #### Clyde MEANS, UMICRO #### [facility] [address] [place] [address] Dr. Josie Sanchez Basophils/100 WBC (Bld) 0.3 % Normal 0.2-2.0 [facility] Comment on above: Performed By: #### Clyde MEANS UMICRO #### [facility] [address] [place] [address] Dr. Josie Sanchez EO # 0.0 103/ul Normal 0.0-0.7 [facility] Comment on above: Performed By: #### Clyde MEANS UMICRO #### [facility] [address] [place] [address] Dr. Josie Sanchez Eosinophils/100 WBC (Bld) 0.5 % Critically low 0.9-7. 0 [facility] Comment on above: Performed By: #### Clyde MEANS, UMICRO #### [facility] [address] [place] [address] Dr. Josie Sanchez Erythrocyte distribution width (RBC) [Ratio] 13.2 % Normal 11.0-15.0 [facility] Comment on above: Performed By: #### Clyde MEANS, UMICRO #### [facility] [address] [place] [address] Dr. Josie Sanchez Hematocrit (Bld) [Volume fraction] 41.8 % Normal 36.0-48.0 [facility] Comment on above: Performed By: #### Clyde MEANS, UMICRO #### [facility] [address] [place] [address] Dr. Josie Sanchez Hemoglobin (Bld) [Mass/Vol] 13.7 g/dL Normal 12.0-16.0 [facility] Comment on above: Performed By: #### RILEY VALERIO #### [facility] [address] [place] [address] Dr. Josie Sanchez IG # 0.02 10e3/ul Normal 0.00-0.03 [facility] Comment on above: Performed By: #### KIAN VALERIORO #### [facility] [address] [place] [address] Dr. Josie Sanchez IG % 0.3 % Normal 0.0-0.5 [facility] Comment on above: Performed By: #### RILEY VALERIO #### [facility] [address] [place] [address] Dr. Josie Sanchez LYMPH # 1.2 103/ul Normal 1.2-3.8 [facility] Comment on above: Performed By: #### RILEY VALERIO #### [facility] [address] [place] [address] Dr. Josie Sanchez Lymphocytes/100 WBC (Bld) 18.4 % Critically low 20.5-6 0.0 [facility] Comment on above: Performed By: #### RILEY VALERIO #### [facility] [address] [place] [address] Dr. Josie Sanchez MANUAL DIFF REQ NO Normal [facility] Comment on above: Performed By: #### KIAN VALERIORO #### [facility] [address] [place] [address] Dr. Josie Sanchez MCH (RBC) [Entitic mass] 29.5 pg Normal 26.7-34.0 [facility] Comment on above: Performed By: #### KIAN VALERIORO #### [facility] [address] [place] [address] Dr. Josie Sanchez MCHC (RBC) [Mass/Vol] 32.8 g/dL Normal 29.9-35.2 [facility] Comment on above: Performed By: #### RILEY VALERIO #### [facility] [address] [place] [address] Dr. Josie Sanchez MCV (RBC) [Entitic vol] 89.9 fL Normal 81.0-99.0 [facility] Comment on above: Performed By: #### E MIGUELANGEL, UMICRO #### [facility] [address] [place] [address] Dr. Josie Sanchez MONO # 0.3 103/ul Normal 0.3-0.8 [facility] Comment on above: Performed By: #### Clyde MEANS, UMICRO #### [facility] [address] [place] [address] Dr. Josie Sanchez Monocytes/100 WBC (Bld) 5.1 % Normal 1.7-12.0 [facility] Comment on above: Performed By: #### Clyde MEANS UMICRO #### [facility] [address] [place] [address] Dr. Josie Sanchez NEUT # 4.8 103/ul Normal 1.4-6.5 [facility] Comment on above: Performed By: #### Clyde MEANS UMICRO #### [facility] [address] [place] [address] Dr. Josie Sanchez Neutrophils/100 WBC (Bld) 75.4 % Critically high 43.0- 75.0 [facility] Comment on above: Performed By: #### Clyde MEANS, UMICRO #### [facility] [address] [place] [address] Dr. Josie Sanchez Platelet mean volume (Bld) [Entitic vol] 9.8 fL Normal 9.5-13.5 [facility] Comment on above: Performed By: #### Clyde MEANS, UMICRO #### [facility] [address] [place] [address] Dr. Josie Sanchez PLT 256 103/ul Normal 150-450 [facility] Comment on above: Performed By: #### Clyde MEANS, UMICRO #### [facility] [address] [place] [address] Dr. Josie Sanchez RBC 4.65 106/ul Normal 4.20-5.40 [facility] Comment on above: Performed By: #### KIAN VALERIORO #### [facility] [address] [address] [address] Josie Sanchez WBC 6.4 103/ul Normal 4.0-11.0 [facility] Comment on above: Performed By: #### Clyde MEANS UMGEORGIARO #### [facility] [address] [address] [address] Josie Sanchez FERRITINon 11-09-2022 Ferritin [Mass/Vol] 42.0 ng/mL Normal 6.2-137.0 [facility] Comment on above: Performed By: #### KIAN VALERIORO #### [facility] [address] [place] [address] Dr. Josie Sanchez FREE T4on 11-09-2022 Free T4 [Mass/Vol] 0.87 ng/dL Normal 0.76-1.46 [facility] Comment on above: Performed By: #### KIAN VALERIORO #### [facility] [address] [place] [address] Dr. Josie Sanchez GLYCOHEMOGLOBIN A1Con 2022 ADA RECOMMENDATION SEE BELOW Normal [facility] Comment on above: Result Comment: ADA RECOMMENDED LIMIT 4.0 - 6.0 ADA THERAPEUTIC TARGET < 7.0 ACTION SUGGESTED > 7.0 Performed By: #### KIAN VALERIORO #### [facility] [address] [place] [address] Dr. Josie Sanchez Glucose [Mass/Vol] 100 mg/dL Normal [facility] Comment on above: Performed By: #### KIAN VALERIORO #### [facility] [address] [place] [address] Dr. Josie Sanchez HbA1c (Bld) [Mass fraction] 5.1 % Normal 4.5-6.2 [facility] Comment on above: Performed By: #### KIAN VALERIORO #### [facility] [address] [place] [address] Dr. Josie Sanchez PREG QUANT HCGon 11-09-2022 HCG QUANT <1 Normal [facility] Comment on above: Performed By: #### RILEY VALERIO #### [facility] [address] [place] [address] Dr. Josie Sanchez HCG RANGE SEE BELOW Normal [facility] Comment on above: Result Comment: 5-50 0.2-1 WEEK 50-500 1-2 WEEKS 100-5,000 2-3 WEEKS 500-10,000 3-4 WEEKS 1,000-50,000 4-5 WEEKS 10,000-100,000 5-6 WEEKS 15,000-200,000 6-8 WEEKS 10,000-100,000 2-3 MONTHS Performed By: #### RILEY VALERIO #### [facility] [address] [place] [address] Dr. Josie Sanchez TSHon 11-09-2022 TSH 2.163 uIU/mL Normal 0.358-3.740 [facility] Comment on above: Performed By: #### RILEY VALERIO #### [facility] [address] [place] [address] Dr. Josie Sanchez PROGESTERONEon 08-29-2022 Progesterone 7.3 ng/mL Normal [facility] Comment on above: Result Comment: Foll icular phase 0.1 - 0.9 Luteal phase 1.8 - 23.9 Ovulation phase 0.1 - 12.0 First trimester 11.0 - 44.3 Second trimester 25.4 - 83.3 Third trimester 58.7 - 214.0 Postmenopausal 0.0 - 0.1 Performed By: #### P ROGES #### [facility] [address] [place] [address] Dr. Josie Sanchez INSULINon 08-13-2022 Insulin 12.5 uIU/mL Normal 2.6-24.9 [facility] Comment on above: Performed By: #### P REGQNT #### [facility] [address] [place] [address] Dr. Josie Sanchez CBC AUTO DIFFon 08-12-2022 BASO # 0.0 103/ul Normal 0.0-0.1 [facility] Comment on above: Performed By: #### RILEY VALERIO #### [facility] [address] [place] [address] Dr. Josie Sanchez Basophils/100 WBC (Bld) 0.2 % Normal 0.2-2.0 [facility] Comment on above: Performed By: #### RILEY VALERIO #### [facility] [address] [place] [address] Dr. Josie Sanchez EO # 0.1 103/ul Normal 0.0-0.7 [facility] Comment on above: Performed By: #### KIAN VALERIORO #### [facility] [address] [place] [address] Dr. Josie Sanchez Eosinophils/100 WBC (Bld) 0.8 % Critically low 0.9-7. 0 [facility] Comment on above: Performed By: #### KIAN VALERIORO #### [facility] [address] [place] [address] Dr. Josie Sanchez Erythrocyte distribution width (RBC) [Ratio] 14.0 % Normal 11.0-15.0 [facility] Comment on above: Performed By: #### RILEY VALERIO #### [facility] [address] [place] [address] Dr. Josie Sanchez Hematocrit (Bld) [Volume fraction] 39.5 % Normal 36.0-48.0 [facility] Comment on above: Performed By: #### KIAN VALERIORO #### [facility] [address] [place] [address] Dr. Josie Sanchez Hemoglobin (Bld) [Mass/Vol] 12.7 g/dL Normal 12.0-16.0 [facility] Comment on above: Performed By: #### KIAN VALERIORO #### [facility] [address] [place] [address] Dr. Josie Sanchez IG # 0.02 10e3/ul Normal 0.00-0.03 [facility] Comment on above: Performed By: #### KIAN VALERIORO #### [facility] [address] [place] [address] Dr. Josie Sanchez IG % 0.3 % Normal 0.0-0.5 [facility] Comment on above: Performed By: #### RILEY VALERIO #### [facility] [address] [place] [address] Dr. Josie Sanchez LYMPH # 1.6 103/ul Normal 1.2-3.8 [facility] Comment on above: Performed By: #### KIAN VALERIORO #### [facility] [address] [place] [address] Dr. Josie Snachez Lymphocytes/100 WBC (Bld) 26.9 % Normal 20.5-60.0 [facility] Comment on above: Performed By: #### KIAN VALERIORO #### [facility] [address] [place] [address] Dr. Josie Sanchez MANUAL DIFF REQ NO Normal [facility] Comment on above: Performed By: #### KIAN VALERIORO #### [facility] [address] [place] [address] Dr. Josie Sanchez MCH (RBC) [Entitic mass] 28.3 pg Normal 26.7-34.0 [facility] Comment on above: Performed By: #### KIAN VALERIORO #### [facility] [address] [place] [address] Dr. Josie Sanchez MCHC (RBC) [Mass/Vol] 32.2 g/dL Normal 29.9-35.2 [facility] Comment on above: Performed By: #### KIAN VALERIORO #### [facility] [address] [place] [address] Dr. Josie Sanchez MCV (RBC) [Entitic vol] 88.0 fL Normal 81.0-99.0 [facility] Comment on above: Performed By: #### KIAN VALERIORO #### [facility] [address] [place] [address] Dr. Josie Sanchez MONO # 0.4 103/ul Normal 0.3-0.8 [facility] Comment on above: Performed By: #### ROBERT VALERIOICRO #### [facility] [address] [place] [address] Dr. Josie Sanchez Monocytes/100 WBC (Bld) 7.1 % Normal 1.7-12.0 [facility] Comment on above: Performed By: #### ROBERT VALERIOICRO #### [facility] [address] [place] [address] Dr. Josie Sanchez NEUT # 3.8 103/ul Normal 1.4-6.5 [facility] Comment on above: Performed By: #### Clyde MEANS UMICRO #### [facility] [address] [place] [address] Dr. Josie Sanchez Neutrophils/100 WBC (Bld) 64.7 % Normal 43.0-75.0 [facility] Comment on above: Performed By: #### ROBERT VALERIOICRO #### [facility] [address] [place] [address] Dr. Josie Sanchez Platelet mean volume (Bld) [Entitic vol] 10.1 fL Normal 9.5-13.5 [facility] Comment on above: Performed By: #### ROBERT VALERIOICRO #### [facility] [address] [place] [address] Dr. Josie Sanchez PLT 211 103/ul Normal 150-450 [facility] Comment on above: Performed By: #### ROBERT VALERIOICRO #### [facility] [address] [place] [address] Dr. Josie Sanchez RBC 4.49 106/ul Normal 4.20-5.40 [facility] Comment on above: Performed By: #### Clyde MEANS UMICRO #### [facility] [address] [place] [address] Dr. Josie Sanchez WBC 5.9 103/ul Normal 4.0-11.0 [facility] Comment on above: Performed By: #### Clyde MEANS UMICRO #### [facility] [address] [place] [address] Dr. Josie Sanchez FREE THYROXINE INDEX T7on FTI 2.63 Normal 1.30-4.50 [facility] Comment on above: Performed By: #### Clyde MAENS UMICRO #### [facility] [address] [place] [address] Dr. Josie Sanchez T3U 35.0 % Normal 30.0-39.0 [facility] Comment on above: Performed By: #### Clyde MEANS UMICRO #### [facility] [address] [place] [address] Dr. Josie Sanchez T4 [Mass/Vol] 7.50 ug/dL Normal 4.80-13.90 [facility] Comment on above: Performed By: #### Clyde MEANS, UMICRO #### [facility] [address] [place] [address] Dr. Josie Sanchez GLYCOHEMOGLOBIN A1Con 2022 ADA RECOMMENDATION SEE BELOW Normal [facility] Comment on above: Result Comment: ADA RECOMMENDED LIMIT 4.0 - 6.0 ADA THERAPEUTIC TARGET < 7.0 ACTION SUGGESTED > 7.0 Performed By: #### Clyde MEANS UMICRO #### [facility] [address] [place] [address] Dr. Josie Sanchez Glucose [Mass/Vol] 111 mg/dL Normal [facility] Comment on above: Performed By: #### Clyde MEANS UMICRO #### [facility] [address] [place] [address] Dr. Josie Sanchez HbA1c (Bld) [Mass fraction] 5.5 % Normal 4.5-6.2 [facility] Comment on above: Performed By: #### Clyde MEANS, UMICRO #### [facility] [address] [place] [address] Dr. Josie Sanchez IRONon 08-12-2022 Iron [Mass/Vol] 40.0 ug/dL Critically low 50.0-170.0 [facility] Comment on above: Performed By: #### P REGQNT #### [facility] [address] [place] [address] Dr. Josie Sanchez LIPID PROFILEon 08-12-2022 CHOL-HDL RATIO NORM SEE BELOW Normal [facility] Comment on above: Result Comment: 3.3 - 4.4 LOW RISK 4.4 - 7.1 AVERAGE RISK 7.1 - 11.0 MODERATE RISK >11.0 HIGH RISK Performed By: #### P REGQNT #### [facility] [address] [address] [address] Josie Sanchez Cholesterol [Mass/Vol] 183 mg/dL Normal <=200 [facility] Comment on above: Performed By: #### P REGQNT #### [facility] [address] [address] [address] Josie Sanchez Cholesterol in HDL [Mass/Vol] 40 mg/dL Normal 40-60 [facility] Comment on above: Performed By: #### P REGQNT #### [facility] [address] [address] [address] Josie Sanchez Cholesterol in LDL [Mass/Vol] 131.0 mg/dL Normal [facility] Comment on above: Performed By: #### P REGQNT #### [facility] [address] [address] [address] Josie Sanchez Cholesterol.total/Choleste rol in HDL [Mass ratio] 4.6 {ratio} Normal [facility] Comment on above: Performed By: #### P REGQNT #### [facility] [address] [address] [address] Josie Sanchez HDL NORMAL > or = 60 mg/dl - LOW CARDIOVASCULAR RISK <40 mg/dl - HIGH CARDIOVASCULAR RISK Normal [facility] Comment on above: Performed By: #### P REGQNT #### [facility] [address] [address] [address] Josie Sanchez LDL CALC NORMAL SEE BELOW Normal [facility] Comment on above: Result Comment: <100 mg/dl OPTIMAL 100 - 129 mg/dl NEAR OR ABOVE OPTIMAL 130 - 159 mg/dl BORDERLINE HIGH 160 - 189 mg/dl HIGH >190 mg/dl VERY HIGH Performed By: #### P REGQNT #### [facility] [address] [address] [address] Josie Sanchez Triglyceride [Mass/Vol] 60 mg/dL Normal <=150 [facility] Comment on above: Performed By: #### P REGQNT #### [facility] [address] [place] [address] Dr. Josie Sanchez VLDL CALC 12.0 mg/dL Normal [facility] Comment on above: Performed By: #### P REGQNT #### [facility] [address] [place] [address] Dr. Josie Sanchez PROF 14(COMP METB)on 023 Albumin [Mass/Vol] 3.7 g/dL Normal 3.4-5.0 [facility] Comment on above: Performed By: #### RILEY VALERIO #### [facility] [address] [place] [address] Dr. Josie Sanchez Albumin/Globulin [Mass ratio] 0.9 {ratio} Normal [facility] Comment on above: Performed By: #### RILEY VALERIO #### [facility] [address] [place] [address] Dr. Josie Sanchez ALP [Catalytic activity/Vol] 131 U/L Critically high 46-116 [facility] Comment on above: Performed By: #### RILEY VALERIO #### [facility] [address] [place] [address] Dr. Josie Sanchez ALT [Catalytic activity/Vol] 23 U/L Normal 14-59 [facility] Comment on above: Performed By: #### RILEY VALERIO #### [facility] [address] [place] [address] Dr. Josie Sanchez Anion gap [Moles/Vol] 10.5 mmol/L Normal [facility] Comment on above: Performed By: #### RILEY VALERIO #### [facility] [address] [place] [address] Dr. Josie Sanchez AST [Catalytic activity/Vol] 18 U/L Normal 15-37 [facility] Comment on above: Performed By: #### RILEY VALERIO #### [facility] [address] [place] [address] Dr. Josie aSnchez Bilirubin [Mass/Vol] 0.7 mg/dL Normal 0.2-1.0 [facility] Comment on above: Performed By: #### KIAN VALERIORO #### [facility] [address] [place] [address] Dr. Josie Sanchez Calcium [Mass/Vol] 8.7 mg/dL Normal 8.5-10.1 [facility] Comment on above: Performed By: #### ROBERT VALERIOICRO #### [facility] [address] [place] [address] Dr. Josie Sanchez Chloride [Moles/Vol] 103 mmol/L Normal 98-107 [facility] Comment on above: Performed By: #### Clyde MEANS UMICRO #### [facility] [address] [place] [address] Dr. Josie Sanchez CO2 [Moles/Vol] 30.1 mmol/L Normal 21.0-32.[address] [facility] Comment on above: Performed By: #### KIAN VALERIORO #### [facility] [address] [place] [address] Dr. Josie Sanchez Creatinine [Mass/Vol] 0.66 mg/dL Normal 0.55-1.02 [facility] Comment on above: Performed By: #### KIAN VALERIORO #### [facility] [address] [place] [address] Dr. Josie Sanchez EGFR-AF MALIAN >60 Normal >=[address] [facility] Comment on above: Performed By: #### Clyde MEANS UMICRO #### [facility] [address] [place] [address] Dr. Josie Sanchez EGFR-NON AF MALIAN >60 Normal >=60 [facility] Comment on above: Performed By: #### ROBERT VALERIOICRO #### [facility] [address] [place] [address] Dr. Josie Sanchez Globulin (S) [Mass/Vol] 4.3 g/dL Normal [facility] Comment on above: Performed By: #### ROBERT VALERIOICRO #### [facility] [address] [address] [address] Josie Sanchez Glucose [Mass/Vol] 90 mg/dL Normal 74-106 [facility] Comment on above: Performed By: #### Clyde MEANS UMICRO #### [facility] [address] [address] [address] Josie Sanchez Potassium [Moles/Vol] 3.6 mmol/L Normal 3.5-5.1 [facility] Comment on above: Performed By: #### Clyde MEANS UMICRO #### [facility] [address] [place] [address] Dr. Josie Sanchez Protein [Mass/Vol] 8.0 g/dL Normal 6.4-8.2 [facility] Comment on above: Performed By: #### Clyde MEANS UMICRO #### [facility] [address] [place] [address] Dr. Josie Sanchez Sodium [Moles/Vol] 140 mmol/L Normal 136-145 [facility] Comment on above: Performed By: #### Clyde MEANS UMICRO #### [facility] [address] [place] [address] Dr. Josie Sanchez Urea nitrogen [Mass/Vol] 12.0 mg/dL Normal 7.0-18.0 [facility] Comment on above: Performed By: #### Clyde MEANS UMICRO #### [facility] [address] [address] [address] Josie Sanchez Urea nitrogen/Creatinine [Mass ratio] 18.2 mg/mg Normal [facility] Comment on above: Performed By: #### Clyde MEANS UMICRO #### [facility] [address] [place] [address] Dr. Josie Sanchez TSHon 08-12-2022 TSH 3.070 uIU/mL Normal 0.358-3.740 [facility] Comment on above: Performed By: #### P REGQNT #### [facility] [address] [place] [address] Dr. Josie Sanchez PREG QUANT HCGon 06-22-2022 HCG QUANT 1 mIU/mL Normal [facility] Comment on above: Performed By: #### RILEY VALERIO #### [facility] [address] [place] [address] Dr. oJsie Sanchez HCG RANGE SEE BELOW Normal [facility] Comment on above: Result Comment: 5-50 0.2-1 WEEK 50-500 1-2 WEEKS 100-5,000 2-3 WEEKS 500-10,000 3-4 WEEKS 1,000-50,000 4-5 WEEKS 10,000-100,000 5-6 WEEKS 15,000-200,000 6-8 WEEKS 10,000-100,000 2-3 MONTHS Performed By: #### RILEY VALERIO #### [facility] [address] [place] [address] Dr. Josie Sanchez PREG QUANT HCGon 05-20-2022 HCG QUANT 6 mIU/mL Normal [facility] Comment on above: Performed By: #### P REGQNT #### [facility] [address] [place] [address] Dr. Josie Sanchez HCG RANGE SEE BELOW Normal [facility] Comment on above: Result Comment: 5-50 0.2-1 WEEK 50-500 1-2 WEEKS 100-5,000 2-3 WEEKS 500-10,000 3-4 WEEKS 1,000-50,000 4-5 WEEKS 10,000-100,000 5-6 WEEKS 15,000-200,000 6-8 WEEKS 10,000-100,000 2-3 MONTHS Performed By: #### P REGQNT #### [facility] [address] [place] [address] Dr. Josie Sanchez PREG QUANT HCGon 05-14-2022 HCG QUANT 26 mIU/mL Normal [facility] Comment on above: Performed By: #### P REGQNT #### [facility] [address] [place] [address] Dr. Josie Sanchez HCG RANGE SEE BELOW Normal [facility] Comment on above: Result Comment: 5-50 0.2-1 WEEK 50-500 1-2 WEEKS 100-5,000 2-3 WEEKS 500-10,000 3-4 WEEKS 1,000-50,000 4-5 WEEKS 10,000-100,000 5-6 WEEKS 15,000-200,000 6-8 WEEKS 10,000-100,000 2-3 MONTHS Performed By: #### P REGQNT #### [facility] [address] [place] [address] Dr. Josie Sanchez CBC AUTO DIFFon 05-08-2022 BASO # 0.0 103/ul Normal 0.0-0.1 [facility] Comment on above: Performed By: #### E MIGUELANGEL UMICRO #### [facility] [address] [place] [address] Dr. Josie Sanchez Basophils/100 WBC (Bld) 0.2 % Normal 0.2-2.0 [facility] Comment on above: Performed By: #### ROBERT VALERIOICRO #### [facility] [address] [place] [address] Dr. Josie Sanchez EO # 0.0 103/ul Normal 0.0-0.7 [facility] Comment on above: Performed By: #### ROBERT VALERIOICRO #### [facility] [address] [place] [address] Dr. Josie Sanchez Eosinophils/100 WBC (Bld) 0.5 % Critically low 0.9-7. 0 [facility] Comment on above: Performed By: #### Clyde MEANS UMICRO #### [facility] [address] [place] [address] Dr. Josie Sanchez Erythrocyte distribution width (RBC) [Ratio] 12.8 % Normal 11.0-15.0 [facility] Comment on above: Performed By: #### E MIGUELANGEL UMICRO #### [facility] [address] [place] [address] Dr. Josie Sanchez Hematocrit (Bld) [Volume fraction] 41.0 % Normal 36.0-48.0 [facility] Comment on above: Performed By: #### Clyde MEANS UMICRO #### [facility] [address] [place] [address] Dr. Josie Sanchez Hemoglobin (Bld) [Mass/Vol] 13.4 g/dL Normal 12.0-16.0 [facility] Comment on above: Performed By: #### RILEY VALERIO #### [facility] [address] [place] [address] Dr. Josie Sanchez IG # 0.02 10e3/ul Normal 0.00-0.03 [facility] Comment on above: Performed By: #### KIAN VALERIORO #### [facility] [address] [place] [address] Dr. Josie Sanchez IG % 0.3 % Normal 0.0-0.5 [facility] Comment on above: Performed By: #### RILEY VALERIO #### [facility] [address] [place] [address] Dr. Josie Sanchez LYMPH # 1.6 103/ul Normal 1.2-3.8 [facility] Comment on above: Performed By: #### RILEY VALERIO #### [facility] [address] [place] [address] Dr. Josie Sanchez Lymphocytes/100 WBC (Bld) 27.1 % Normal 20.5-60.0 [facility] Comment on above: Performed By: #### RILEY VALERIO #### [facility] [address] [place] [address] Dr. Josie Sanchez MANUAL DIFF REQ NO Normal [facility] Comment on above: Performed By: #### KINA VALERIORO #### [facility] [address] [place] [address] Dr. Josie Sanchez MCH (RBC) [Entitic mass] 29.3 pg Normal 26.7-34.0 [facility] Comment on above: Performed By: #### KIAN VALERIORO #### [facility] [address] [place] [address] Dr. Josie Sanchez MCHC (RBC) [Mass/Vol] 32.7 g/dL Normal 29.9-35.2 [facility] Comment on above: Performed By: #### KIAN VALERIORO #### [facility] [address] [place] [address] Dr. Josie Sanchez MCV (RBC) [Entitic vol] 89.5 fL Normal 81.0-99.0 [facility] Comment on above: Performed By: #### E MIGUELANGEL UMICRO #### [facility] [address] [place] [address] Dr. Josie Sanchez MONO # 0.5 103/ul Normal 0.3-0.8 [facility] Comment on above: Performed By: #### Clyde MEANS UMICRO #### [facility] [address] [place] [address] Dr. Josie Sanchez Monocytes/100 WBC (Bld) 8.6 % Normal 1.7-12.0 [facility] Comment on above: Performed By: #### Clyde MEANS UMICRO #### [facility] [address] [place] [address] Dr. Josie Sanchez NEUT # 3.7 103/ul Normal 1.4-6.5 [facility] Comment on above: Performed By: #### Clyde MEANS UMICRO #### [facility] [address] [place] [address] Dr. Josie Sanchez Neutrophils/100 WBC (Bld) 63.3 % Normal 43.0-75.0 [facility] Comment on above: Performed By: #### Clyde MEANS UMICRO #### [facility] [address] [place] [address] Dr. Josie Sanchez Platelet mean volume (Bld) [Entitic vol] 9.8 fL Normal 9.5-13.5 [facility] Comment on above: Performed By: #### Clyde MEANS UMICRO #### [facility] [address] [place] [address] Dr. Josie Sanchez PLT 238 103/ul Normal 150-450 [facility] Comment on above: Performed By: #### Clyde MEANS UMICRO #### [facility] [address] [place] [address] Dr. Josie Sanchez RBC 4.58 106/ul Normal 4.20-5.40 [facility] Comment on above: Performed By: #### RILEY VALERIO #### [facility] [address] [place] [address] Dr. Josie Sanchez WBC 5.8 103/ul Normal 4.0-11.0 [facility] Comment on above: Performed By: #### RILEY VALERIO #### [facility] [address] [place] [address] Dr. Josie Sanchez PREG QUANT HCGon 05-08-2022 HCG QUANT 2335 mIU/mL Normal [facility] Comment on above: Performed By: #### P REGQNT #### [facility] [address] [place] [address] Dr. Josie Sanchez HCG RANGE SEE BELOW Normal [facility] Comment on above: Result Comment: 5-50 0.2-1 WEEK 50-500 1-2 WEEKS 100-5,000 2-3 WEEKS 500-10,000 3-4 WEEKS 1,000-50,000 4-5 WEEKS 10,000-100,000 5-6 WEEKS 15,000-200,000 6-8 WEEKS 10,000-100,000 2-3 MONTHS Performed By: #### P REGQNT #### [facility] [address] [place] [address] Dr. Josie Sanchez CBC AUTO DIFFon 05-07-2022 BASO # 0.0 103/ul Normal 0.0-0.1 [facility] Comment on above: Performed By: #### RILEY VALERIO #### [facility] [address] [place] [address] Dr. Josie Sanchez Basophils/100 WBC (Bld) 0.2 % Normal 0.2-2.0 [facility] Comment on above: Performed By: #### RILEY VALERIO #### [facility] [address] [place] [address] Dr. Josie Sanchez EO # 0.0 103/ul Normal 0.0-0.7 [facility] Comment on above: Performed By: #### RILEY VALERIO #### [facility] [address] [place] [address] Dr. Josie Sanchez Eosinophils/100 WBC (Bld) 0.3 % Critically low 0.9-7. 0 [facility] Comment on above: Performed By: #### KIAN VALERIORO #### [facility] [address] [place] [address] Dr. Josie Sanchez Erythrocyte distribution width (RBC) [Ratio] 12.8 % Normal 11.0-15.0 [facility] Comment on above: Performed By: #### ROBERT VALERIOICRO #### [facility] [address] [place] [address] Dr. Josie Sanchez Hematocrit (Bld) [Volume fraction] 41.2 % Normal 36.0-48.0 [facility] Comment on above: Performed By: #### ROBERT VALERIOICRO #### [facility] [address] [place] [address] Dr. Josie Sanchez Hemoglobin (Bld) [Mass/Vol] 13.3 g/dL Normal 12.0-16.0 [facility] Comment on above: Performed By: #### ROBERT VALERIOICRO #### [facility] [address] [place] [address] Dr. Josie Sanchez IG # 0.02 10e3/ul Normal 0.00-0.03 [facility] Comment on above: Performed By: #### ROBERT VALERIOICRO #### [facility] [address] [place] [address] Dr. Josie Sanchez IG % 0.3 % Normal 0.0-0.5 [facility] Comment on above: Performed By: #### ROBERT VALERIOICRO #### [facility] [address] [place] [address] Dr. Josie Sanchez LYMPH # 1.0 103/ul Critically low 1.2-3.8 [facility] Comment on above: Performed By: #### Clyde MEANS UMICRO #### [facility] [address] [place] [address] Dr. Josie Sanchez Lymphocytes/100 WBC (Bld) 15.5 % Critically low 20.5-6 0.0 [facility] Comment on above: Performed By: #### KIAN VALERIORO #### [facility] [address] [place] [address] Dr. Josie Sanchez MANUAL DIFF REQ NO Normal [facility] Comment on above: Performed By: #### Clyde MEANS UMICRO #### [facility] [address] [place] [address] Dr. Josie Sanchez MCH (RBC) [Entitic mass] 28.9 pg Normal 26.7-34.0 [facility] Comment on above: Performed By: #### KIAN VALERIORO #### [facility] [address] [place] [address] Dr. Josie Sanchez MCHC (RBC) [Mass/Vol] 32.3 g/dL Normal 29.9-35.2 [facility] Comment on above: Performed By: #### KIAN VALERIORO #### [facility] [address] [place] [address] Dr. Josie Sanchez MCV (RBC) [Entitic vol] 89.6 fL Normal 81.0-99.0 [facility] Comment on above: Performed By: #### KIAN VALERIORO #### [facility] [address] [place] [address] Dr. Josie Sanchez MONO # 0.4 103/ul Normal 0.3-0.8 [facility] Comment on above: Performed By: #### KIAN VALERIORO #### [facility] [address] [place] [address] Dr. Josie Sanchez Monocytes/100 WBC (Bld) 6.2 % Normal 1.7-12.0 [facility] Comment on above: Performed By: #### KIAN VALERIORO #### [facility] [address] [place] [address] Dr. Josie Sanchez NEUT # 5.0 103/ul Normal 1.4-6.5 [facility] Comment on above: Performed By: #### E RUR, UMICRO #### [facility] [address] [address] [address] Josie Sanchez Neutrophils/100 WBC (Bld) 77.5 % Critically high 43.0- 75.0 [facility] Comment on above: Performed By: #### E YOSELINR, UMICRO #### [facility] [address] [place] [address] Dr. Josie Sanchez Platelet mean volume (Bld) [Entitic vol] 10.2 fL Normal 9.5-13.5 [facility] Comment on above: Performed By: #### E RUR, UMICRO #### [facility] [address] [place] [address] Dr. Josie Sanchez PLT 237 103/ul Normal 150-450 [facility] Comment on above: Performed By: #### E YOSELINR, UMICRO #### [facility] [address] [place] [address] Dr. Josie Sanchez RBC 4.60 106/ul Normal 4.20-5.40 [facility] Comment on above: Performed By: #### E YOSELINR, UMICRO #### [facility] [address] [place] [address] Dr. Josie Sanchez WBC 6.5 103/ul Normal 4.0-11.0 [facility] Comment on above: Performed By: #### E YOESLINR, UMICRO #### [facility] [address] [place] [address] Dr. Josie Sanchez Covid-19 PCR ([facility])on 04-10 SARS-CoV-2 (COVID-19) RNA ALEXA+probe Ql (Unsp spec) Not detected Normal NOT DETECTED [facility] Comment on above: Result Comment: This test is not yet approved or cleared by the [place] FDA. When there are no FDA-approved or cleared tests available, and other criteria are met, FDA can make tests available under an emergency access mechanism called an Emergency Use Authorization (EUA). The EUA for this test is supported by the Story of Health and Human Service's (HHS's) declaration [...] SARS-CoV-2. Performed By: #### RILEY VALERIO #### [facility] [address] [place] [address] Dr. Josie Sanchez PREG QUANT HCGon 05-07-2022 HCG QUANT 2745 mIU/mL Normal [facility] Comment on above: Performed By: #### RILEY VALERIO #### [facility] [address] [place] [address] Dr. Josie Sanchez HCG RANGE SEE BELOW Normal [facility] Comment on above: Result Comment: 5-50 0.2-1 WEEK 50-500 1-2 WEEKS 100-5,000 2-3 WEEKS 500-10,000 3-4 WEEKS 1,000-50,000 4-5 WEEKS 10,000-100,000 5-6 WEEKS 15,000-200,000 6-8 WEEKS 10,000-100,000 2-3 MONTHS Performed By: #### RILEY VALERIO #### [facility] [address] [place] [address] Dr. Josie Sanchez US PREG TVon 05-05-2022 [...] PEREZ DURBIN Date: 2022-05-05 14:42 Normal [facility] URINE PROFILEon 2 Bilirubin Ql (U) Negative Normal NEGATIVE [facility] Comment on above: Performed By: #### Clyde MEANS UMICRO #### [facility] [address] [place] [address] Dr. Josie Sanchez Clarity (U) CLEAR Normal CLEAR [facility] Comment on above: Performed By: #### Clyde MEANS UMICRO #### [facility] [address] [place] [address] Dr. Josie Sanchez Color (U) YELLOW Normal YELLOW [facility] Comment on above: Performed By: #### Clyde MEANS UMICRO #### [facility] [address] [place] [address] Dr. Josie WU A micrscopic examination will be performed if indicated. Normal [facility] Comment on above: Performed By: #### ROBERT VALERIOICRO #### [facility] [address] [place] [address] Dr. Josie Sanchez Glucose Ql (U) Negative Normal NEGATIVE [facility] Comment on above: Performed By: #### KIAN VALERIORO #### [facility] [address] [place] [address] Dr. Josie Sanchez Hemoglobin Ql (U) SMALL Abnormal NEGATIVE [facility] Comment on above: Performed By: #### Clyde MEANS UMICRO #### [facility] [address] [place] [address] Dr. Josie Sanchez Ketones Ql (U) 15 mg/dl Abnormal NEGATIVE [facility] Comment on above: Performed By: #### Clyde MEANS UMICRO #### [facility] [address] [place] [address] Dr. Josie Sanchez LEUKOCYTES Negative Normal NEGATIVE [facility] Comment on above: Performed By: #### Clyde MEANS UMICRO #### [facility] [address] [place] [address] Dr. Josie Sanchez Nitrite Ql (U) Negative Normal NEGATIVE [facility] Comment on above: Performed By: #### Clyde MEANS UMICRO #### [facility] [address] [place] [address] Dr. Josie Sanchez pH (U) 6.0 [pH] Normal 5-9 [facility] Comment on above: Performed By: #### Clyde MEANS UMICRO #### [facility] [address] [place] [address] Dr. Josie Sanchez SPEC GRAVITY 1.020 Normal 1.005-<=1.02 5 [facility] Comment on above: Performed By: #### Clyde MEANS UMICRO #### [facility] [address] [place] [address] Dr. Josie Sanchez UA PROTEIN Negative Normal NEGATIVE/ TRACE [facility] Comment on above: Performed By: #### Clyde MEANS UMICRO #### [facility] [address] [place] [address] Dr. Josie Sanchez UR MICRO IND INDICATED Normal [facility] Comment on above: Performed By: #### KIAN VALERIORO #### [facility] [address] [place] [address] Dr. Josie Sanchez Urobilinogen Qn (U) 0.2 {Fabricio'U}/dL Normal 0.2 - 1. 0 [facility] Comment on above: Performed By: #### Clyde MEANS UMICRO #### [facility] [address] [place] [address] Dr. Josie Sanchez URINE MICROSCOPIC ONLYon BACTERIA NONE SEEN Normal NONE SEEN [facility] Comment on above: Performed By: #### Clyde MEANS UMICRO #### [facility] [address] [place] [address] Dr. Josie Sanchez Bacteria identified Cx Nom (U) NOT INDICATED Normal [facility] Comment on above: Performed By: #### KIAN VALERIORO #### [facility] [address] [place] [address] Dr. Josie Sanchez CAST NONE SEEN Normal NONE SEEN [facility] Comment on above: Performed By: #### Clyde MEANS UMICRO #### [facility] [address] [place] [address] Dr. Josie Sanchez Crystals LM Nom (Urine sed) NONE SEEN Normal NONE SEEN [facility] Comment on above: Performed By: #### Clyde MEANS UMICRO #### [facility] [address] [place] [address] Dr. Josie Sanchez Epithelial cells LM Ql (Urine sed) NONE SEEN Normal NONE SEEN /RARE [facility] Comment on above: Performed By: #### Clyde MEANS UMICRO #### [facility] [address] [place] [address] Dr. Josie Sanchez MUCOUS MODERATE Abnormal NONE SEEN [facility] Comment on above: Performed By: #### ROBERT VALERIOICRO #### [facility] [address] [place] [address] Dr. Josie Sanchez RBC 0-2 Normal 0-2 [facility] Comment on above: Performed By: #### Clyde MEANS UMICRO #### [facility] [address] [place] [address] Dr. Josie Sanchez WBC NONE SEEN Normal NONE SEEN [facility] Comment on above: Performed By: #### KIAN VALERIORO #### [facility] [address] [place] [address] Dr. Josie Sanchez PREG QUANT HCGon 04-20-2022 HCG QUANT 15434 mIU/mL Normal [facility] Comment on above: Performed By: #### Clyde MEANS UMICRO #### [facility] [address] [place] [address] Dr. Josie Sanchez HCG RANGE SEE BELOW Normal [facility] Comment on above: Result Comment: 5-50 0.2-1 WEEK 50-500 1-2 WEEKS 100-5,000 2-3 WEEKS 500-10,000 3-4 WEEKS 1,000-50,000 4-5 WEEKS 10,000-100,000 5-6 WEEKS 15,000-200,000 6-8 WEEKS 10,000-100,000 2-3 MONTHS Performed By: #### RILEY VALERIO #### [facility] [address] [place] [address] Dr. Josie Sanchez HCG-BETA SUBUNIT QUANTon hCG,Beta Subunit,Qnt,Serum <1 Normal [facility] Comment on above: Result Comment: Fema le (Non-) 0 - 5 (Postmenopausal) 0 - 8 . Female () Weeks of Gestation 3 6 - 71 4 10 - 750 5 819 - 1895 6 163 - 86432 7 1840 -382608 8 05941 -556675 9 56590 -704716 10 91898 -765044 12 87333 -147625 14 92386 - 49741 15 60575 - 43176 16 7527 - 00734 17 1003 - 12534 18 6809 - 48603 [place] ECLIA methodology Performed By: #### RILEY VALERIO #### [facility] [address] [place] [address] Dr. Josie Sanchez CBC AUTO DIFFon 02-18-2022 BASO # 0.0 103/ul Normal 0.0-0.1 [facility] Comment on above: Performed By: #### C BC #### [facility] [address] [place] [address] Dr. Josie Sanchez Basophils/100 WBC (Bld) 0.2 % Normal 0.2-2.0 [facility] Comment on above: Performed By: #### C BC #### [facility] [address] [place] [address] Dr. Josie Sanchez EO # 0.1 103/ul Normal 0.0-0.7 [facility] Comment on above: Performed By: #### C BC #### [facility] [address] [place] [address] Dr. Josie Sanchez Eosinophils/100 WBC (Bld) 0.8 % Critically low 0.9-7. 0 [facility] Comment on above: Performed By: #### C BC #### [facility] [address] [place] [address] Dr. Josie Sanchez Erythrocyte distribution width (RBC) [Ratio] 12.5 % Normal 11.0-15.0 [facility] Comment on above: Performed By: #### C BC #### [facility] [address] [place] [address] Dr. Josie Sanchez Hematocrit (Bld) [Volume fraction] 39.5 % Normal 36.0-48.0 [facility] Comment on above: Performed By: #### C BC #### [facility] [address] [place] [address] Dr. Josie Sanchez Hemoglobin (Bld) [Mass/Vol] 13.0 g/dL Normal 12.0-16.0 [facility] Comment on above: Performed By: #### C BC #### [facility] [address] [place] [address] Dr. Josie Sanchez IG # 0.02 10e3/ul Normal 0.00-0.03 [facility] Comment on above: Performed By: #### C BC #### [facility] [address] [place] [address] Dr. Josie Sanchez IG % 0.3 % Normal 0.0-0.5 [facility] Comment on above: Performed By: #### C BC #### [facility] [address] [place] [address] Dr. Josie Sanchez LYMPH # 1.5 103/ul Normal 1.2-3.8 [facility] Comment on above: Performed By: #### C BC #### [facility] [address] [place] [address] Dr. Josie Sanchez Lymphocytes/100 WBC (Bld) 22.9 % Normal 20.5-60.0 [facility] Comment on above: Performed By: #### C BC #### [facility] [address] [place] [address] Dr. Josie Sanchez MANUAL DIFF REQ NO Normal [facility] Comment on above: Performed By: #### C BC #### [facility] [address] [place] [address] Dr. Josie Sanchez MCH (RBC) [Entitic mass] 30.3 pg Normal 26.7-34.0 [facility] Comment on above: Performed By: #### C BC #### [facility] [address] [place] [address] Dr. Josie Sanchez MCHC (RBC) [Mass/Vol] 32.9 g/dL Normal 29.9-35.2 [facility] Comment on above: Performed By: #### C BC #### [facility] [address] [place] [address] Dr. Josie Sanchez MCV (RBC) [Entitic vol] 92.1 fL Normal 81.0-99.0 [facility] Comment on above: Performed By: #### C BC #### [facility] [address] [place] [address] Dr. Josie Sanchez MONO # 0.4 103/ul Normal 0.3-0.8 [facility] Comment on above: Performed By: #### C BC #### [facility] [address] [place] [address] Dr. Josie Sanchez Monocytes/100 WBC (Bld) 5.7 % Normal 1.7-12.0 [facility] Comment on above: Performed By: #### C BC #### [facility] [address] [place] [address] Dr. Josie Sanchez NEUT # 4.6 103/ul Normal 1.4-6.5 [facility] Comment on above: Performed By: #### C BC #### [facility] [address] [place] [address] Dr. Josie Sanchez Neutrophils/100 WBC (Bld) 70.1 % Normal 43.0-75.0 [facility] Comment on above: Performed By: #### C BC #### [facility] [address] [place] [address] Dr. Josie Sanchez Platelet mean volume (Bld) [Entitic vol] 10.0 fL Normal 9.5-13.5 [facility] Comment on above: Performed By: #### C BC #### [facility] [address] [place] [address] Dr. Josie Sanchez PLT 242 103/ul Normal 150-450 [facility] Comment on above: Performed By: #### C BC #### [facility] [address] [address] [address] Josie Sanchez RBC 4.29 106/ul Normal 4.20-5.40 [facility] Comment on above: Performed By: #### C BC #### [facility] [address] [address] [address] Josie Sanchez WBC 6.5 103/ul Normal 4.0-11.0 [facility] Comment on above: Performed By: #### C BC #### [facility] [address] [place] [address] Dr. Josie Sanchez LIPID PROFILEon 02-18-2022 CHOL-HDL RATIO NORM SEE BELOW Normal [facility] Comment on above: Result Comment: 3.3 - 4.4 LOW RISK 4.4 - 7.1 AVERAGE RISK 7.1 - 11.0 MODERATE RISK >11.0 HIGH RISK Performed By: #### L IPID, TSH #### [facility] [address] [place] [address] Dr. Josie Sanchez Cholesterol [Mass/Vol] 182 mg/dL Normal <=200 [facility] Comment on above: Performed By: #### L IPID, TSH #### [facility] [address] [place] [address] Dr. Josie Sanchez Cholesterol in HDL [Mass/Vol] 40 mg/dL Normal 40-60 [facility] Comment on above: Performed By: #### L IPID, TSH #### [facility] [address] [place] [address] Dr. Josie Sanchez Cholesterol in LDL [Mass/Vol] 122.4 mg/dL Normal [facility] Comment on above: Performed By: #### L IPID, TSH #### [facility] [address] [place] [address] Dr. Josie Sanchez Cholesterol.total/Choleste rol in HDL [Mass ratio] 4.6 {ratio} Normal [facility] Comment on above: Performed By: #### L IPID, TSH #### [facility] [address] [address] [address] Josie Sanchez HDL NORMAL > or = 60 mg/dl - LOW CARDIOVASCULAR RISK <40 mg/dl - HIGH CARDIOVASCULAR RISK Normal [facility] Comment on above: Performed By: #### L IPID, TSH #### [facility] [address] [address] [address] Josie Sanchez LDL CALC NORMAL SEE BELOW Normal [facility] Comment on above: Result Comment: <100 mg/dl OPTIMAL 100 - 129 mg/dl NEAR OR ABOVE OPTIMAL 130 - 159 mg/dl BORDERLINE HIGH 160 - 189 mg/dl HIGH >190 mg/dl VERY HIGH Performed By: #### L IPID, TSH #### [facility] [address] [address] [address] Josie Sanchez Triglyceride [Mass/Vol] 98 mg/dL Normal <=150 T [facility] Comment on above: Performed By: #### L IPID, TSH #### [facility] [address] [address] [address] Josie Sanchez VLDL CALC 19.6 mg/dL Normal [facility] Comment on above: Performed By: #### L IPID, TSH #### [facility] [address] [place] [address] Dr. Josie Sanchez PROTIMEon 02-18-2022 INR Coag (PPP) [Relative time] 1.10 {INR} Normal [facility] Comment on above: Performed By: #### P REGQNT #### [facility] [address] [address] [address] Josie Sacnhez INR GUIDELINES SEE BELOW Normal [facility] Comment on above: Result Comment: PAULINA RED INR: 2.0 - 3.0 CONDITIONS NOT LISTED BELOW 2.5 - 3.5 FOR PROSTHETIC HEART VALVE REPLACEMENT 2.5 - 3.5 RECURRENT THROMBOSIS Performed By: #### P REGQNT #### [facility] [address] [place] [address] Dr. Josie Sanchez PT Coag (PPP) [Time] 11.8 s Critically high 9.0-11.6 [facility] Comment on above: Performed By: #### P REGQNT #### [facility] [address] [address] [address] Josie Sanchez PTTon 02-18-2022 aPTT Coag (Bld) [Time] 29.8 s Normal 22.3-36.2 [facility] Comment on above: Performed By: #### P REGQNT #### [facility] [address] [address] [address] Josie Sanchez TSHon 02-18-2022 TSH 3.410 uIU/mL Normal 0.358-3.740 [facility] Comment on above: Performed By: #### L IPID, TSH #### [facility] [address] [place] [address] Dr. Josie Sanchez US PELVIS AND TRANSVAGon [...] by: PEREZ DURBIN Date: 2022-02-18 18:56 Normal [facility] Nursing Note - Woundon 08-15 Nursing Note - Wound [id number] 06519#3.00CD:127 Normal [facility] Coding Summary.on 08-08-2020 Coding Summary. CODING DATE: 08/08/2020 FINAL [facility] STATUS: Home (Routine DC) PAYOR: Medicaid EAPG [...] Jeannie Nur Date Saved: 08/08/2020 10:31 am [facility] Formson 08-08-2020 Forms [id number] 0459#1.00CD:127 [facility] Home Health Recordson 2019 Home Health Records [id number] 3EFD#1.00CD:127 [facility] Ambulatory Clinical Summaryo n 07-26-2020 Ambulatory Clinical Summary {[id number] -[id number]}CD:61 [id number] [facility] Record[facility] 2019 Home Health Records [id number] 0EC7#1.00CD:127 [facility] Progress Note - Woundon 07-09 Progress Note - Wound [id number] 70323#2.00CD:127 [facility] Consent for Treatmenton 07-09 Consent for Treatment [id number] AFAA#1.00CD:127 [facility] Multi-Wound Charton 07-25-20 20 Multi-Wound Chart [id number] 15607#1.00CD:127 [facility] Nursing Assessment - Woundon 07-25-2020 Nursing Assessment - Wound [id number] 7.202 [id number] 63632#1.00CD:127 [facility] Physician Orderon 07-25-2020 Physician Order [id number] 41184#1.00CD:127 [facility] Record[facility] 2019 Home Health Records [id number] 3741#1.00CD:127 [facility] Record[facility] 2019 Home Health Records [id number] 3554#1.00CD:127 [facility] Coding Summary.on 07-12-2020 Coding Summary. 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 However, the narrative phrase printed from the coding software may appear abbreviated, or result in slightly different terminology. Coded By: Aicha Bledsoe CphT Date Saved: 07/12/2020 03:05 pm [facility] Coding Summary. 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 However, the narrative phrase printed from the coding software may appear abbreviated, or result in slightly different terminology. Coded By: Aicha Bledsoe CphT Date Saved: 07/12/2020 03:03 pm [facility] Multi-Wound Charton 07-12-20 20 Multi-Wound Chart [id number] [id number]#1.00CD:127 [facility] Nursing Assessment - Woundon 07-12-2020 Nursing Assessment - Wound [id number] 7.202 [id number] 80292#1.00CD:127 [facility] Nursing Note - Woundon 07-12 Nursing Note - Wound [id number] 98571#1.00CD:127 [facility] Consent for Procedure/Surger yon 07-11-2020 Consent for Procedure/Surgery [id number] 46966#1.00CD:127 [facility] Consent for Treatmenton Consent for Treatment [id number] B36A#1.00CD:127 [facility] Recordson 2019 Home Health Records [id number]#1.00CD:127 [facility] Home Health Records [id number]#1.00CD:127 [facility] Physician Orderon 07-11-2020 Physician Order [id number]#1.00CD:127 [facility] Progress Note - Woundon Progress Note - Wound [id number]#1.00CD:127 [facility] Nursing Note - Woundon 07-02 Nursing Note - Wound [id number] 90212#3.00CD:127 [facility] Consent for Procedure/Surger yon 06-28-2020 Consent for Procedure/Surgery [id number]#1.00CD:127 [facility] Consent to Photographon 06-10 Consent to Photograph [id number] [id number]#1.00CD:127 [facility] HIPAA Privacy Documentson HIPAA Privacy Documents [id number] 0158#1.00CD:127 [facility] Nursing Note - Woundon 06-28 Nursing Note - Wound [id number] 0289#1.00CD:127 [facility] Nursing Note - Wound [id number] 0217#1.00CD:127 [facility] Consent for Treatmenton 06-09 Consent for Treatment [id number] EEDA#1.00CD:127 [facility] Multi-Wound Charton 06-27-20 20 Multi-Wound Chart [id number]#1.00CD:127 [facility] Nursing Assessment - Woundon 06-27-2020 Nursing Assessment - Wound [id number]#1.00CD:127 [facility] Physician Orderon 06-27-2020 Physician Order [id number]#2.00CD:127 [facility] Progress Note - Woundon 06-09 Progress Note - Wound [id number]#1.00CD:127 [facility] HIPAA Privacy Documentson HIPAA Privacy Documents [id number]:127 [facility] Outside Records Officeon Outside Records Office [id number]#1.00CD:127 [facility] Vital Signs Date Time Vital Sign Value Performing Clinician Facility 09-04-2024 13:50-0500 Body mass index (BMI) [Ratio] 30.86 kg/m2 Norbert Silvia DO Work Phone: [facility] 09-04-2024 13:50-0500 Body weight 71.67 kg Norbert Silvia DO Work Phone: [facility] 09-04-2024 13:50-0500 Diastolic blood pressure 78 mm[Hg] Norbert Silvia DO Work Phone: [facility] 09-04-2024 13:50-0500 Systolic blood pressure 122 mm[Hg] Norbert Silvia [employer] Work Phone: [facility] 07-28-2024 11:10-0500 Body mass index (BMI) [Ratio] 31.09 kg/m2 [facility] Nurse [facility] 07-28-2024 11:10-0500 Body weight 72.21 kg [facility] Nurse [facility] 07-28-2024 11:10-0500 Diastolic blood pressure 91 mm[Hg] [facility] Nurse [facility] 07-28-2024 11:10-0500 Systolic blood pressure 122 mm[Hg] [facility] Nurse [facility] 11-20-2022 15:05-0400 Body height 152.4 cm Gloria Hayden Other [facility] Other 11-20-2022 15:05-0400 Body mass index (BMI) [Ratio] 11.72 kg/m2 Gloria Hayden Other [facility] Other 11-20-2022 15:05-0400 Body temperature 97.7 [degF] Gloria Hayden Other [facility] Other 11-20-2022 15:05-0400 Body weight 27.22 kg Gloria Hayden Other [facility] Other 11-20-2022 15:05-0400 Respiratory rate 18 /min Gloria Hayden Other [facility] Other 11-20-2022 15:05-0400 SaO2% (BldA) [Mass fraction] 97 % Gloria Hayden Other [facility] Other Encounters Encounter Date Encounter Type Care Provider Facility Start: 09-08-2024 End: 09-08-2024 Chart abstracting Gen Gaffney MD Work Phone: [facility] Start: 09-04-2024 End: 09-04-2024 Bamboo flowsheet Norbert Silvia DO Work Phone: [facility] Start: 09-04-2024 End: 09-04-2024 Bamboo flowsheet Norbert Silvia DO Work Phone: [facility] Start: 09-04-2024 End: 09-04-2024 Office outpatient visit 15 minutes Norbert Silvia DO Work Phone: [facility] Comment on above: Second trimester pre gnancy; 16 weeks gestation of ; Need for maternal serum alpha-protein (MSAFP) screening; Screening, , for anatomic survey Start: 09-04-2024 End: 09-04-2024 ambulatory NORBERT SILVIA Not Available Start: 07-31-2024 End: 07-31-2024 ambulatory Norbert Silvia Facility:[facility] Start: 07-31-2024 End: 07-31-2024 Clinisync Result Encounter Norbert Silvia DO Work Phone: [facility] Unsolicited Start: 07-31-2024 End: 07-31-2024 Clinisync Result Encounter Norbert Silvia DO Work Phone: [facility] Unsolicited Start: 07-28-2024 End: 07-28-2024 Clinisync Result Encounter Norbert Silvia DO Work Phone: [facility] Unsolicited Start: 07-28-2024 End: 07-28-2024 Clinisync Result Encounter Norbert Silvia DO Work Phone: [facility] Unsolicited Start: 07-28-2024 End: 07-28-2024 ambulatory NORBERT SILVIA Not Available Start: 07-28-2024 End: 07-28-2024 Office outpatient visit [...] Work Phone: [facility] Unsolicited Start: 12-21-2022 End: 12-21-[address] NORBERT VEGA . Facility:[facility] Start: 12-18-2022 End: 12-19-[address] NORBERT VEGA . Facility:[facility] Start: 11-20-2022 End: 11-20-2022 ambulatory Gloria Hayden Other [facility] Other Start: 11-20-2022 Office outpatient vi sit [...] laboratory examination DR NORBERT VEGA . [facility] Start: 05-08-2022 End: 05-08-2022 ambulatory [...] End: 04-21-[address] NORBERT VEGA . Facility: Start: 03-27-[address] NORBERT VEGA . Facili ty:[facility] Start: 03-23-[address] NORBERT VEGA . Facili ty:[facility] Start: 03-12-2022 End: 03-13-[address] NORBERT VEGA . Facility:[facility] Start: 02-18-2022 End: 02-19-[address] QUOC WATTS . Facility: Procedures Date Procedure Procedure Detail Performing Clinician Start: 09-04-2024 Urnls dip stick/tabl et rgnt non-auto w/o micrscp Norbert Silvia DO Work Phone: Start: 07-31-2024 [facility] DRUG SCREEN RAPI D (URINE) Norbert Silvia DO Work Phone: Start: 07-28-2024 BOX TEST Norbert Fazi o [...] EDT Office Visit [facility] [address] [place] [address] Norbert Vega, DO [address] [place] [address] [facility] Start: 10-09-2024 End: 10-09-2024 Patient encounter procedure [facility] Start: 10-02-2024 End: 10-02-2024 Patient encounter procedure 10/02/2024 2:10 PM EST Routine [facility] [address] [place] [address] Norbert Vega, DO [address] [place] [address] [facility] Start: 09-04-2024 End: 10-05-2024 Alpha fetoprotein, maternal Alpha fetoprotein, maternal Lab Routine Need for maternal serum alpha-protein (MSAFP) screening Expected: 09/04/2024 (Approximate), Expires: 10/05/2024 [facility] Work Phone: Comment on above: Expected: 09/04/2024 (Approximate), Expires: 10/05/2024 Start: 09-04-2024 End: 09-04-2024 Patient encounter procedure [facility] Comment on above: Arrived Start: 07-28-2024 End: 07-28-2025 ABO/Rh ABO/Rh Lab Routine Missed menses , unspecified gestational age Expected: 07/28/2024 (Approximate), Expires: 07/28/2025 [facility] Comment on above: Expected: 07/28/2024 (Approximate), Expires: 07/28/2025 Start: 07-28-2024 End: 07-28-2025 Blood type and Indirect antibody screen panel - Blood Type and screen Lab Routine Missed menses , unspecified gestational age Expected: 07/28/2024 (Approximate), Expires: 07/28/2025 [facility] Work Phone: Comment on above: Expected: 07/28/2024 (Approximate), Expires: 07/28/2025 Start: 07-28-2024 End: 07-28-2025 Drugs of abuse panel - Urine by Screen method Rapid drug screen, urine Lab Routine , unspecified gestational age Encounter for supervision of normal first in first trimester Expected: 07/28/2024 (Approximate), Expires: 07/28/2025 [facility] Comment on above: Expected: 07/28/2024 (Approximate), Expires: 07/28/2025 Start: 07-28-2024 End: 07-28-2025 US Pelvis transvaginal US OB transvaginal Imaging Routine Missed menses Expected: 07/28/2024 (Approximate), Expires: 07/28/2025 [facility] Comment on above: Expected: 07/28/2024 (Approximate), Expires: 07/28/2025 Start: 07-28-2024 End: 07-28-2024 ambulatory 07/28/2024 10:30 AM EST Initial [facility] [address] [place] [address] [facility] Start: 04-09-2024 Influenza vaccination Influenza Vacc ine [facility] Start: 2006 Screening for malign ant neoplasm of cervix Pap Smear [facility] Start: 2004 DTaP,Tdap and Td Vaccines (1 - Tdap) DTaP,Tdap and Td Vaccines (1 - Tdap) [facility] Start: 10-30-2003 Adult BMI Screening Adult BMI Screen ing [facility] Start: 1997 Depression Screening Depression Scre ening [facility] Start: 1997 Tobacco Screening Tobacco Screening [facility] Bacteria identified in Urine by Culture Urine culture Microbiology Routine Missed menses Ordered: 07/28/2024 [facility] Comment on above: Ordered: 07/28/2024 CBC W Auto Different ial panel - Blood CBC and differential Lab Routine Missed menses , unspecified gestational age Ordered: 07/28/2024 [facility] Comment on above: Ordered: 07/28/2024 Hemoglobin A1c/Hemoglobin.total in Blood Hemoglobin A1c Lab Routine Missed menses , unspecified gestational age Ordered: 07/28/2024 [facility] Comment on above: Ordered: 07/28/2024 Hepatitis B virus surface Ag [Presence] in Serum or Plasma by Immunoassay Hepatitis B surface antigen Lab Routine Missed menses , unspecified gestational age Ordered: 07/28/2024 [facility] Comment on above: Ordered: 07/28/2024 Hepatitis C virus Ab [Presence] in Serum or Plasma by Immunoassay Hepatitis C antibody Lab Routine Missed menses , unspecified gestational age Ordered: 07/28/2024 [facility] Comment on above: Ordered: 07/28/2024 HIV-1/HIV-2 antigen/antibody combination immunoassay HIV-1 and HIV-2 antibodies Lab Routine Missed menses , unspecified gestational age Ordered: 07/28/2024 [facility] Comment on above: Ordered: 07/28/2024 Reagin Ab [Presence] in Serum by RPR RPR Lab Routine Missed menses , unspecified gestational age Ordered: 07/28/2024 [facility] Comment on above: Ordered: 07/28/2024 Rubella antibody, IgG Rubella an tibody, IgG Lab Routine Missed menses , unspecified gestational age Ordered: 07/28/2024 [facility] Comment on above: Ordered: 07/28/2024 Payers Date Payer Category Payer Medicaid [id number] 2022 Medicaid [id number] 2. [id number] 1985 Unknown [id number] 2.16.84 0.1.261564.3.579.2.593 1985 Unknown [id number] 2.16.84 0.1.430509.3.579.2.593 1985 Unknown [id number] 2.16.84 0.1.383378.3.579.2.593 1985 Unknown [id number] 2.16.84 0.1.769872.3.579.2.593 1985 Unknown [id number] 2.16.84 0.1.408454.3.579.2.593 1985 Unknown [id number] 2.16.84 0.1.117502.3.579.2.593 1985 Unknown [id number] 2.16.84 0.1.102012.3.579.2.593 1985 Unknown [id number] 2.16.84 0.1.297325.3.579.2.593 1985 Unknown [id number] 2.16.84 0.1.749440.3.579.2.593 1985 Unknown [id number] 2.16.84 0.1.355064.3.579.2.593 1985 Unknown [id number] 2.16.84 0.1.985213.3.579.2.593 1985 Unknown [id number] 2.16.84 0.1.003264.3.579.2.593 1985 Unknown [id number] 2.16.84 0.1.799189.3.579.2.593 1985 Unknown [id number] 2.16.84 0.1.202227.3.579.2.593 1985 Unknown [id number] 2.16.84 0.1.345387.3.579.2.593 1985 Unknown [id number] 2.16.84 0.1.911215.3.579.2.593 1985 Unknown [id number] 2.16.84 0.1.453686.3.579.2.593 1985 Unknown [id number] 2.16.84 0.1.753189.3.579.2.593 1985 Unknown [id number] 2.16.84 0.1.373940.3.579.2.593 1985 Unknown [id number] 2.16.84 0.1.854336.3.579.2.593 1985 Unknown [id number] 2.16.84 0.1.245065.3.579.2.1259 1985 Unknown [id number] 2.16.84 0.1.728373.3.579.2.1259 1985 Unknown [id number] 2.16.84 0.1.989254.3.579.2.1259 1985 Unknown [id number] 2.16.84 0.1.455060.3.579.2.1259 1959 Self-pay 1959 Unknown [id number] Unknown [id number] 2.16.8 40.1.964373.3.579.2.531 Social History Date Type Detail Facility Unknown if ever smoked [facility] Other Start: 09-19-2020 End: 12-21-2022 Sex Assigned At [facility] Other Start: 10-20-2018 End: 12-21-2022 Tobacco smoking status FLIS Never smoked tobacco [facility] Start: 10-20-2018 End: 12-21-2022 Tobacco use and exposure Smokeless tobacco non-user [facility] Start: 08-23-2023 End: 07-28-2024 Alcohol intake Current drinker of alcohol (finding) [facility] Start: 09-19-2020 End: 12-21-2022 History of Social function [facility] Start: 01-14-2023 Alcohol Comment caffeine intake: occasionally [facility] Start: 1985 Sex Assigned At Not on file [facility] Start: 05-27-2024 [facility] Start: 09-08-2024 Alcoholic beverage intake Ex-drinker (finding) [facility] Childcare Unknown [facility] Start: 10-20-2018 Alcohol Comment occassionally [facility] Start: 03-14-2015 Sex Female (finding) [facility] History of Present illness Narrative 09-04-2024 Rosette Short LPN - 09/04/2024 1:40 PM EST Note Date & Type Note Facility 09-04-2024 History of Presen t illness Narrative Reason for Appointment: Patient ID: Jannie Sanon is a 38 y.o. female who presents for Routine Visit Patient presents today for Return OB appointment. MEDICATIONS Current Outpatient Medications Medication Instructions aspirin 81 mg, Daily buPROPion XL (WELLBUTRIN XL) 300 mg, Every morning cholecalciferol (Vitamin D-3) 25 MCG (1000 UT) capsule Daily co-enzyme Q-10 30 mg, Daily omega-3 (FISH OIL) 300 mg, Daily MV-Min-Fe Fum-FA-DHA ( 1 PO) 1 tablet, Daily ALLERGIES Allergies Allergen Reactions Penicillins Unknown PROBLEMS Active Ambulatory Problems Diagnosis Date Noted Anxiety, generalized (CMS/HCC) 01/15/2023 Resolved Ambulatory Problems Diagnosis Date Noted No Resolved Ambulatory Problems Past Medical History: Diagnosis Date Abnormal uterine bleeding Depression (CMS/HCC) Dysmenorrhea History of History of D&C Hx of tubal ligation Miscarriage HISTORY PAST MEDICAL HISTORY SOCIAL HISTORY Past Medical History: Diagnosis Date Abnormal uterine bleeding Depression (CMS/HCC) Dysmenorrhea History of x4 History of D&C Hx of tubal ligation Miscarriage x2 x6 Social History Tobacco Use Smoking status: Never Smokeless tobacco: Never Substance Use Topics Alcohol use: Yes Alcohol/week: 1.0 - 2.0 standard drink of alcohol Types: 1 - 2 Standard drinks or equivalent per week Comment: caffeine intake: occasionally Drug use: Never FAMILY HISTORY Family History Adopted: Yes Problem Relation Name Age of Onset Mental illness Mother Breast cancer Paternal Great-Grandmother 2 half sisters 5 half brothers SURGICAL HISTORY Past Surgical History: Procedure Laterality Date SECTION, LOW TRANSVERSE x4 PAP SMEAR 06/18/2021 negative [place] DILATION & CURETTAGE DX&/THER NONOBSTETRIC TONSILLECTOMY TUBAL LIGATION REVIEW OF SYSTEMS Review of Systems: Review of Systems All other systems reviewed and are negative. OBJECTIVE Objective: OBGyn Exam Vitals: Estimated body mass index is 30.86 kg/m as calculated from the following: Height as of 03/01/23: 5'. Weight as of this encounter: 158 lb. BP: 122/78 Patient's last menstrual period was 05/13/2024. ASSESSMENT & PLAN ICD-10-CM 1. Second trimester Z34.92 POCT urinalysis dipstick manually resulted 2. 16 weeks gestation of Z3A.16 3. Need for maternal serum alpha-protein (MSAFP) screening Z36.1 Alpha fetoprotein, maternal Alpha fetoprotein, maternal 4. Screening, , for anatomic survey Z36.89 US OB 14+ weeks anatomy scan New OB: Patient presents today for 1st time obstetrics appointment with provider. Patient is currently 16w2d . Patients history has been reviewed in great detail including any potential risks. Patient stated she currently has no complaints. Expectations throughout regarding labs, ultrasounds, and appointments have been discussed with the patient in detail. It was reiterated that the patient is to drink 6-8 glasses of water a day, eat 6 small meals a day, do not consume raw or undercooked meat, and stay away from [facility]. Patient has been consulted regarding any further do's and don'ts of . Patient voiced understanding and all questions and concerns were answered. Discussed with patient taken Aspirin 81mg daily and referral to [facility] for level II ultrasound. Orders Placed This Encounter Procedures US OB 14+ weeks anatomy scan Alpha fetoprotein, maternal POCT urinalysis dipstick manually resulted Follow Up: Patient is to return in 4 weeks for routine OB appointment. Documented by Rosette Short LPN on behalf of: Norbert Vega DO documented in this encounter [facility] History of Present illness Narrative 07-28-2024 Gemma Dumont LPN - 07/28/2024 10:30 AM EST Note Date & Type Note Facility 07-28-2024 History of Presen t illness Narrative Reason for Appointment: Patient ID: Jannie Snaon is a 38 y.o. female who presents [...] Ambulatory Problems Diagnosis Date Noted Anxiety, generalized ([facility]/HCC) 01/15/2023 Resolved Ambulatory Problems Diagnosis Date Noted No Resolved Ambulatory Problems Past Medical History: Diagnosis Date Abnormal uterine bleeding Depression ([facility]) Dysmenorrhea History of History of D&C Hx [...] LOW TRANSVERSE x4 PAP SMEAR 06/18/2021 negative [place] DILATION & CURETTAGE DX&/THER NONOBSTETRIC TONSILLECTOMY TUBAL LIGATION Allergies Allergen Reactions Penicillins Unknown Vitals: Estimated body mass index is 31.09 kg/m as calculated from the following: Height as of 03/01/23: 5'. Weight as of this encounter: 159 [...] or undercooked meat, and stay away from [facility]. Patient has also been advised to [...] Gemma Dumont LPN documented in this encounter [facility] Evaluation note 11-20-2022 Note Date & Type [...] Contact dermatitis home care material was printed [facility] Other Clinical Note 05-08-2022 Note Date & [...] authenticated by: PEREZ DURBIN Date: 2022-05-08 18:03 [facility] Clinical Note 05-08-2022 Note Date & Type Note Facility 05-08-2022 Note OPERATIVE NOTE OPERATION DATE: 05/08/2022 PROCEDURE: Suction D AND C. PREOPERATIVE DIAGNOSIS: 1. Suspected molar during first trimester. 2. Uterine mass approximately 4.5 cm. POSTOPERATIVE DIAGNOSIS: 1. Suspected molar during first trimester. 2. Uterine mass approximately 4.5 cm. 3. Significant large amounts of retained products. SURGEON: Norbert Vega D.O. AIRCRAFT SKIN BURNISHER: None. BLOOD LOSS: 100 mL. URINE OUTPUT: [...] products of conception were removed using a 9-[place] Ze[place]ander suction curette tip. Excellent hemostasis was noted. The patient tolerated the procedure well. Sponge, lap, and needle counts were correct x 2. All instruments were then removed from the patient's vagina. The patient was taken to the Recovery Room in stable condition. ?? [facility] Evaluation note Note Date & Type Note Facility Evaluation note Diagnosis Missed menses , unspecified gestational age Encounter for supervision of normal first in first trimester documented in this encounter [facility] Evaluation note Note Date & Type Note Facility Evaluation note Diagnosis Second trimester state, incidental 16 weeks gestation of Need for maternal serum alpha-protein (MSAFP) screening Screening, , for anatomic survey Encounter for anatomic survey documented in this encounter [facility] Healthcare History general Narrative - Reported Note Date & Type Note Facility History general Narrative - Reported Type Medical History Hypercholesterolemia Medical History Hormone imbalance Medical History Vitamin D deficiency Medical History Iron deficiency Surgical History C section Surgical History oral surgery Surgical History tonsillectomy and adenoidectomy Surgical History D&C 2021 Hospitalization History child [facility] Other Instructions Note Date & Type Note Facility Instructions Not on filedocumented in this en counter [facility] Summary Purpose Family History No Family History Records FoundNo Family History Records FoundNo Family History Records FoundNo Family History Records Found Advance Directives No Advanced Directives Records FoundNo Advanced Directives Records FoundNo Advanced Directives Records FoundNo Advanced Directives Records Found Additional Source Comments INFORMATION SOURCE (unrecogn ized section and content) DATE CREATED AUTHOR 08/15/2020 [facility] DATE CREATED AUTHOR AUTHOR'S ORGANIZ ATION 12/22/2022 [facility] DATE CREATED AUTHOR AUTHOR'S ORGANIZ ATION 08/03/2024 [facility] DATE CREATED AUTHOR AUTHOR'S ORGANIZ ATION 09/05/2024 [facility] EPIC REASON FOR VISIT (unrecogniz ed section and content) Reason Comments Amenorrhea Reason Comments Routine Visit Care Teams (unrecognized sec tion and content) Inserting Machine Operator Relationship Specialty Start Date End Date Quoc Watts MD [address] [place] [address] PCP - General Family Medicine 12/28/22 Inserting Machine Operator Relationship Specialty Start Date End Date Quoc Watts MD [address] [place] [address] PCP - General Family Medicine 12/28/22 Inserting Machine Operator Relationship Specialty Start Date End Date Quoc Watts MD [address] [place] [address] PCP - General Family Medicine 12/28/22 Inserting Machine Operator Relationship Specialty Start Date End Date Quoc Watts MD [address] [place] [address] PCP - General Family Medicine 12/28/22 Inserting Machine Operator Relationship Specialty Start Date End Date Quoc Watts MD [address] [place] [address] PCP - General Family Medicine 12/28/22 Inserting Machine Operator Relationship Specialty Start Date End Date Quoc Watts MD [address] [facility] [place] [address] PCP - General Family Medicine 12/28/22 Inserting Machine Operator Relationship Specialty Start Date End Date Quoc Watts MD [address] [place] [facility] [place] [address] PCP - General Family Medicine 12/28/22 Inserting Machine Operator Relationship Specialty Start Date End Date Quoc Watts MD PCP - General 04/04/18 FOR RECORDS PERTAINING TO PATIENTS WHO ARE [...] BE BASED ON THE PRIMARY CLINICAL RECORDS. [facility] [employer] [facility] provides no warranty or guarantee of the accuracy or completeness of information in this document.
[2024-09-16 00:07] LABS: AFP Value 35.2 ng/mL (.); Gest. Age on Collection Date 17.6 weeks (.); Insulin Dep Diabetes No (.); Maternal Age At EDD 39.3 yr (.); OSBR Risk 1 IN 10000 (.); Results Report (.)
== END 2024-09-13 12:20 | disposition home or self-care (01) ==
LOC: LAB 12:19
PROVIDERS: PCP Obstetrics & Gynecology; Visit Provider Obstetrics & Gynecology
DX: Z34.92 Encounter for supervision of normal pregnancy, unspecified, second trimester (principal); Z36.1 Encounter for antenatal screening for raised alphafetoprotein level
CPT/HCPCS: 82105

== ENCOUNTER 2024-10-23 13:12 | Outpatient (OUT) | payer MEDICAID, SELFPAY ==
[2024-10-23 14:25] LABS: Basophils Percent Auto 0.1 % (0.2-2.0); Eosinophils Absolute Auto 0.1 10^3/uL (0.0-0.7); Eosinophils Percent Auto 1.2 % (0.9-7.0); Hematocrit 31.8 % (36.0-48.0); Hemoglobin 10.2 g/dL (12.0-16.0); Immature Granulocytes Abs Auto 0.05 10^3/uL (0.00-0.03); Immature Granulocytes Pct Auto 0.5 % (0.0-0.5); Lymphocytes Absolute Auto 1.5 10^3/uL (1.2-3.8); Lymphocytes Percent Auto 15.9 % (20.5-60.0); Mean Corpuscular HGB Conc 32.1 g/dL (29.9-35.2); Mean Corpuscular Hemoglobin 26.9 pg (26.7-34.0); Mean Corpuscular Volume 83.9 fL (81.0-99.0); Monocytes Absolute Auto 0.4 10^3/uL (0.3-0.8); Monocytes Percent Auto 4.7 % (1.7-12.0); Neutrophils Absolute Auto 7.2 10^3/uL (1.4-6.5); Neutrophils Percent Auto 77.6 % (43.0-75.0); Platelet Count 202 10^3/uL (150-450); Red Blood Count 3.79 10^6/uL (4.20-5.40); Red Cell Distribution Width 14.6 % (11.0-15.0); White Blood Count 9.3 10^3/uL (4.0-11.0)
[2024-10-23 14:33] LABS: Glucose 1 Hour 106 mg/dL (<130)
== END 2024-10-23 13:13 | disposition home or self-care (01) ==
LOC: LAB 13:12
PROVIDERS: PCP Family Medicine; Visit Provider Obstetrics & Gynecology
DX: Z13.1 Encounter for screening for diabetes mellitus (principal)
CPT/HCPCS: 36415; 82950; 85025

== ENCOUNTER 2024-11-30 16:17 | Observation (INO) | payer MEDICAID, SELFPAY ==
[2024-11-30 16:34] VITALS: BP 118/78; PULSE 104
[2024-11-30 17:44] LABS: Bilirubin Urine NEGATIVE (NEGATIVE); Blood Urine NEGATIVE (NEGATIVE); Clarity Urine CLEAR (CLEAR); Color Urine LT. YELLOW (YELLOW); Glucose Urine UA NEGATIVE (NEGATIVE); Ketones Urine NEGATIVE (NEGATIVE); Leukocyte Esterase Urine NEGATIVE (NEGATIVE); Nitrite Urine NEGATIVE (NEGATIVE); Protein Urine NEGATIVE (NEG/TRACE); Urobilinogen Urine 0.2 EU/dL (0.2-1.0); pH Urine 6.5 (5.0-9.0)
[2024-11-30 17:56] LABS: Urine Microscopic Indicated NO
== END 2024-11-30 18:45 | disposition home or self-care (01) ==
PROVIDERS: Admitting Provider Obstetrics & Gynecology; PCP Family Medicine; Visit Provider Obstetrics & Gynecology
DX: O47.03 False labor before 37 completed weeks of gestation, third trimester (principal); Z3A.28 28 weeks gestation of pregnancy
CPT/HCPCS: 59025; 81003; G0378; G0379

== ENCOUNTER 2024-12-09 13:55 | Observation (INO) | payer MEDICAID, SELFPAY ==
[2024-12-09 14:30] VITALS: BP 135/86; PULSE 96
[2024-12-09 15:11] LABS: Bilirubin Urine NEGATIVE (NEGATIVE); Blood Urine LARGE (NEGATIVE); Clarity Urine SL CLOUDY (CLEAR); Color Urine YELLOW (YELLOW); Glucose Urine UA NEGATIVE (NEGATIVE); Ketones Urine 15 mg/dL (NEGATIVE); Leukocyte Esterase Urine NEGATIVE (NEGATIVE); Nitrite Urine NEGATIVE (NEGATIVE); Protein Urine 100 mg/dL (NEG/TRACE); Specific Gravity Urine >=1.030 (1.005-1.025); Urine Microscopic Indicated YES
[2024-12-09 15:18] LABS: Bacteria Urine SMALL #/HPF (NONE SEEN); Cast Seen? NONE SEEN #/LPF (NONE SEEN); Crystals Seen? None Seen #/HPF (None Seen); Mucus Urine MODERATE (NONE SEEN); RBC Urine 75-100 #/HPF (0-2); Squamous Epithelial Cell Urine FEW #/LPF (NONE/RARE); Urine Culture Indicated YES-LC; WBC Urine NONE SEEN #/HPF (NONE SEEN)
[2024-12-09] MEDS: ACETAMINOPHEN 500 MG TABLET 1000 MG PO (17:47)
== END 2024-12-09 18:00 | disposition home or self-care (01) ==
PROVIDERS: Admitting Provider Obstetrics & Gynecology; PCP Family Medicine; Visit Provider Obstetrics & Gynecology
DX: O26.893 Other specified pregnancy related conditions, third trimester (principal); R10.9 Unspecified abdominal pain; O21.2 Late vomiting of pregnancy; O99.283 Endocrine, nutritional and metabolic diseases complicating pregnancy, third trimester; E87.6 Hypokalemia; Z3A.30 30 weeks gestation of pregnancy; Z88.0 Allergy status to penicillin
CPT/HCPCS: 36415; 59025; 80048; 80307; 81001; 85025; 87086; 96365; 96367; 96375; 99284; G0378; G0379; J0131; J0696; J1200; J2405

== ENCOUNTER 2024-12-09 21:49 | Emergency (ER) | payer MEDICAID, SELFPAY ==
[2024-12-09 22:00] VITALS: BP 129/81; PULSE 75; TEMP 36.3; O2SAT 97; BMI 32.0
[2024-12-09 22:50] LABS: Basophils Percent Auto 0.1 % (0.2-2.0); Immature Granulocytes Abs Auto 0.07 10^3/uL (0.00-0.03); Immature Granulocytes Pct Auto 0.4 % (0.0-0.5); Lymphocytes Absolute Auto 0.9 10^3/uL (1.2-3.8); Lymphocytes Percent Auto 5.4 % (20.5-60.0); Mean Corpuscular Hemoglobin 24.9 pg (26.7-34.0); Mean Corpuscular Volume 80.1 fL (81.0-99.0); Mean Platelet Volume 11.8 fL (9.5-13.5); Monocytes Absolute Auto 0.5 10^3/uL (0.3-0.8); Monocytes Percent Auto 2.8 % (1.7-12.0); Neutrophils Absolute Auto 15.2 10^3/uL (1.4-6.5); Neutrophils Percent Auto 91.3 % (43.0-75.0); Platelet Count 176 10^3/uL (150-450); Red Blood Count 3.62 10^6/uL (4.20-5.40); Red Cell Distribution Width 14.5 % (11.0-15.0); White Blood Count 16.6 10^3/uL (4.0-11.0)
[2024-12-09] MEDS: 0.9 % SODIUM CHLORIDE 1,000 ML 1000 ML IV (22:54)
[2024-12-09] MEDS: ONDANSETRON PF 4 MG/2 ML VIAL IV (22:54)
[2024-12-09 22:59] LABS: Anion Gap 16.6; BUN Creatinine Ratio 8.2; Calcium 8.6 mg/dL (8.5-10.1); Carbon Dioxide 23.4 mmol/L (21.0-32.0); Chloride 100 mmol/L (98-107); Estimated GFR (African America >60 (>=60 mL/min/1.73m^2); Estimated GFR (Non-African Ame >60 (>=60 mL/min/1.73m^2); Glucose 105 mg/dL (74-106); Sodium 137 mmol/L (136-145)
[2024-12-09 23:02] LABS: Amphetamine Screen Urine NEGATIVE (NEGATIVE); Barbiturates Screen Urine NEGATIVE (NEGATIVE); Benzodiazepines Screen Urine NEGATIVE (NEGATIVE); Buprenorphine Screen Urine NEGATIVE (NEGATIVE); Cannabinoid Screen Urine NEGATIVE (NEGATIVE); Cocaine Screen Urine NEGATIVE (NEGATIVE); Methadone Screen Urine NEGATIVE (NEGATIVE); Methamphetamines Screen Urine NEGATIVE (NEGATIVE); Opiate Screen Urine NEGATIVE (NEGATIVE); Oxycodone Screen Urine NEGATIVE (NEGATIVE); Phencyclidine Screen Urine NEGATIVE (NEGATIVE); Tricyclic Antidepressant Urine NEGATIVE (NEGATIVE)
[2024-12-09] MEDS: ACETAMINOPHEN 1,000 MG/100 ML PREMIX 400 MG IV (23:02)
[2024-12-09] MEDS: DIPHENHYDRAMINE HCL 50 MG/ML VIAL 25 MG IVP (23:24)
[2024-12-09] MEDS: CEFTRIAXONE 1,000 MG in 0.9 % SODIUM CHLORIDE 50 ML 100 MG IV (23:51)
[2024-12-10] MEDS: POTASSIUM BICARBONATE/CIT 25 MEQ TABLET EFF 50 MEQ PO (00:12)
--- NOTE | 2024-12-10 00:19 | ED.GENADUL1 ---
HPI HPI - General Adult General Chief complaint: Nausea/Vomiting/Diarrhea Stated complaint: 30 WKS PG, BACK & SIDE PAIN, THROWING UP Time Seen by Provider: 12/09/24 22:32 Source: patient and family Mode of arrival: walk-in Limitations: no limitations History of Present Illness HPI narrative: The patient is a 39-year-old female who presents to the emergency department with intractable right flank pain. She went to the L&D office today to be evaluated twice. Patient is 30 weeks . It was presumed that the patient had pyelonephritis. They were unable to access the patient with an IV. Therefore they gave her oral antibiotic therapy. But the pharmacy was closed by the time the patient went to go get it. Patient has not had any antibiotic therapy. But within a couple of minutes of leaving the L&D office the patient started having nausea and vomiting. She was unable to hold anything down. Mom tried to give her a Zofran ODT at home but it was unsuccessful. When the patient arrives to the emergency department OB stated that the patient had to be seen in the emergency department that they have already seen her twice. The patient is a G9, P4. Her last was 14 years ago. Patient states that she has been urinating a lot but denies any dysuria, urgency or frequency. Patient's allergy to penicillin and cephalosporins is a rash. Related Data Home Medications ?Medication ?Instructions ?Recorded ?Confirmed cholecalciferol (vitamin D3) 25 25 mcg PO DAILY 01/13/23 12/09/24 mcg (1,000 unit) capsule polysaccharide iron complex 180 mg 180 mg PO QDAY 01/13/23 12/09/24 iron capsule (Pro Fe) aspirin 81 mg capsule 81 mg PO DAILY 11/30/24 12/09/24 bupropion HCl 300 mg 24 hr tablet, 300 mg PO DAILY 11/30/24 12/09/24 extended release coenzyme Q10-vit 1 cap PO DAILY 11/30/24 12/09/24 L2-N8-A-magnesium-zinc 30 mg-25 mg-25 mg-250 mg cap vits,calcium 21-iron fum 1 tab PO DAILY 11/30/24 12/09/24 14 mg iron-folic acid 400 mcg tablet ( Complete) Previous Rx's ?Medication ?Instructions ?Recorded ondansetron 4 mg disintegrating 4 mg PO Q6H PRN nausea and 12/10/24 tablet vomiting #14 tabs Allergies Allergy/AdvReac Type Severity Reaction Status Date / Time Penicillins Allergy Severe Unknown Verified 12/09/24 21:59 cefaclor (From Ceclor) Allergy Unknown Verified 12/09/24 21:59 Opioid HPI Opioid Management Most Recent Opioid Data: Last Pain Scale 4 Today, 00:05 Last ED Pain Assessment Today, 00:05 Last MAR Pain Assessment 12/09/24, 17:47 Ur Phencyclidine Scrn, (NEGATIVE) Negative 12/09/24, 14:00 PFSH PFSH Medical History Asthma ?J45.909 - Unspecified asthma, uncomplicated (ICD-10) Fallopian tube disorder ?N83.9 - Noninflammatory disorder of ovary, fallopian tube and broad ligament, unspecified (ICD-10) Abnormal uterine bleeding ?N93.9 - Abnormal uterine and vaginal bleeding, unspecified (ICD-10) Pelvic pain ?R10.2 - Pelvic and perineal pain (ICD-10) Reversal of sterilization ?Z31.0 - Encounter for reversal of previous sterilization (ICD-10) High cholesterol ?E78.00 - Pure hypercholesterolemia, unspecified (ICD-10) Depression ?F32.A - Depression, unspecified (ICD-10) Anxiety ?F41.9 - Anxiety disorder, unspecified (ICD-10) Anemia ?D64.9 - Anemia, unspecified (ICD-10) Combative behavior ?R46.89 - Other symptoms and signs involving appearance and behavior (ICD-10) Molar ?O02.0 - Blighted ovum and nonhydatidiform mole (ICD-10) Infertility Surgical History History of tonsillectomy ?Z90.89 - Acquired absence of other organs (ICD-10) History of section ?Z98.891 - History of uterine scar from previous surgery (ICD-10) History of dilation and curettage ?Z98.890 - Other specified postprocedural states (ICD-10) History of tubal ligation ?Z98.51 - Tubal ligation status (ICD-10) History of dilation and curettage ?Z98.890 - Other specified postprocedural states (ICD-10) Family History Other Family history of diabetes mellitus Family history of heart disease Social History Within the past year, how often did you have a drink containing alcohol: monthly or less Smoking status: Never smoker Non-prescribed substance use: denies use Highest level of school completed/degree received: some college, no degree Little interest or pleasure in doing things: not at all Feeling down, depressed, or hopeless: not at all Exam Narrative Exam Narrative: Prior to examining the patient, I have washed with hospital approved and provided Antiseptic Hand Marine Pipefitter Helper and have also applied gloves.? Prior to touching the patient, I asked for consent to examine the patient.? General: Alert and oriented, well nourished, mild distress. Eye: PERRL, EOMI, normal conjunctiva. HENT: Normocephalic, normal hearing, moist oral mucosa, no scleral icterus Lungs: Clear to auscultation and percussion, non-labored respiration. No rhonchi, rales, wheezing Heart: Normal rate, regular rhythm, no murmur, gallop or edema. Abdomen: Soft, non-tender, non-distended, normal bowel sounds, no masses. Gravid uterus. Patient's uterus rests above the umbilicus. Musculoskeletal: Normal range of motion and strength, no tenderness or swelling. Skin: Skin is warm, dry and pink, no rashes or lesions. Neurologic: Awake, alert, and oriented X3, CN II-XII intact. Psychiatric: Cooperative, appropriate mood and affect.? Following the conclusion of the examination, I have washed my hands thoroughly after removing examination gloves. Constitutional Vital Signs, click to edit/add: Last Vital Signs Temp 97.4 F L 12/09/24 22:00 Pulse 75 12/09/24 22:00 Resp 18 12/09/24 22:00 BP 129/81 12/09/24 22:00 Pulse Ox 97 12/09/24 22:00 O2 Del Method Room Air 12/09/24 22:00 Course Course Hospital Course: In summary, the patient is a G9, P4 female presenting for right flank pain and intractable nausea and vomiting. The patient has been seen twice by L&D today. Patient is not in labor. Patient was given oral antibiotic therapy for urinary tract infection when she has not been able to take it. In addition, the patient began having nausea and vomiting and would not have been able to take the medication anyway. Vital Signs Vital signs: Vital Signs Temperature 97.4 F L 12/09/24 22:00 Pulse Rate 75 12/09/24 22:00 Respiratory Rate 18 12/09/24 22:00 Blood Pressure 129/81 12/09/24 22:00 Pulse Oximetry 97 12/09/24 22:00 Oxygen Delivery Method Room Air 12/09/24 22:00 Temperature 97.4 F L 12/09/24 22:00 Pulse Rate 75 12/09/24 22:00 Respiratory Rate 18 12/09/24 22:00 Blood Pressure 129/81 12/09/24 22:00 Pulse Oximetry 97 12/09/24 22:00 Oxygen Delivery Method Room Air 12/09/24 22:00 Medical Decision Making MDM Narrative Medical decision making narrative: At this time I reviewed the patient's urine analysis. Patient wanted something stronger than Tylenol for pain even though I could give it intravenously. I did do a urine drug screen on the patient to make sure she was not going through any type of withdrawals. Patient's urine drug screen was negative. Patient had a liter normal saline bolus. She was given Zofran intravenously for nausea, Tylenol for 100 mg intravenously for pain, and Rocephin 1 g IV piggyback. Patient was given Benadryl 25 mg intravenously prior to administering the Rocephin just to make sure the patient did not develop any urticaria or rash. None was appreciated. The patient will be given Zofran for nausea and she can resume the antibiotic therapy as recommended by her L&D team and pick that up tomorrow. Patient's pain is a 3 out of 10 on reassessment at 12:24 AM. It was a 10 out of 10 when she arrived. Potassium was also found to be low. Patient was supplemented on that. Differential Diagnosis Differential Diagnosis: Active labor, kidney stone, pyelonephritis, urinary tract infection, dehydr Medical Records Medical records reviewed: Yes I reviewed the patient's medical records Lab Data Lab results reviewed: Yes I reviewed the patient's lab results Lab results narrative: CBC reveals evidence of leukocytosis as well as anemia. These are normal findings in . Patient's white blood cell count may be a little bit higher than normal which may be owing to an infectious type etiology or demargination from stress. Patient's competence metabolic panel, electrolyte, kidney, liver function were. Patient did have a low potassium isolated at 3.0. Urine drug screen negative. Labs: Lab Results 12/09/24 12/09/24 Range/Units 14:00 22:32 WBC 16.6 H (4.0-11.0) 10^3/uL RBC 3.62 L (4.20-5.40) 10^6/uL Hgb 9.0 L (12.0-16.0) g/dL Hct 29.0 L (36.0-48.0) % MCV 80.1 L (81.0-99.0) fL MCH 24.9 L (26.7-34.0) pg MCHC 31.0 (29.9-35.2) g/dL RDW 14.5 (11.0-15.0) % Plt Count 176 (150-450) 10^3/uL MPV 11.8 (9.5-13.5) fL Neut % (Auto) 91.3 H (43.0-75.0) % Lymph % (Auto) 5.4 L (20.5-60.0) % [facility] % (Auto) 2.8 (1.7-12.0) % Eos % (Auto) 0.0 L (0.9-7.0) % Baso % (Auto) 0.1 L (0.2-2.0) % Neut # (Auto) 15.2 H (1.4-6.5) 10^3/uL Lymph # (Auto) 0.9 L (1.2-3.8) 10^3/uL [facility] # (Auto) 0.5 (0.3-0.8) 10^3/uL Eos # (Auto) 0.0 (0.0-0.7) 10^3/uL Baso # (Auto) 0.0 (0.0-0.1) 10^3/uL Abs Immat Gran (auto) 0.07 H (0.00-0.03) 10^3/uL Imm/Tot Granulo (auto) 0.4 (0.0-0.5) % Sodium 137 (136-145) mmol/L Potassium 3.0 L (3.5-5.1) mmol/L Chloride 100 (98-107) mmol/L Carbon Dioxide 23.4 (21.0-32.0) mmol/L Anion Gap 16.6 BUN 5.0 L (7.0-18.0) mg/dL Creatinine 0.61 (0.55-1.02) mg/dL Est GFR ( Amer) >60 (>=60 mL/min/1.73m^2) Est GFR (Non-Af Amer) >60 (>=60 mL/min/1.73m^2) BUN/Creatinine Ratio 8.2 Glucose 105 (74-106) mg/dL Calcium 8.6 (8.5-10.1) mg/dL Urine Opiates Screen Negative (NEGATIVE) Ur Buprenorphine Scrn Negative (NEGATIVE) Ur Oxycodone Screen Negative (NEGATIVE) Urine Methadone Screen Negative (NEGATIVE) Ur Barbiturates Screen Negative (NEGATIVE) U Tricyclic Antidepress Negative (NEGATIVE) Ur Phencyclidine Scrn Negative (NEGATIVE) Ur Amphetamines Screen Negative (NEGATIVE) U Methamphetamines Scrn Negative (NEGATIVE) U Benzodiazepines Scrn Negative (NEGATIVE) Urine Cocaine Screen Negative (NEGATIVE) U Cannabinoids Screen Negative (NEGATIVE) Discharge Plan Discharge Chief Complaint: Nausea/Vomiting/Diarrhea Clinical Impression: Nausea & vomiting, Hypokalemia, Third trimester , Acute right flank pain Patient Disposition: Home, Self-Care Time of Disposition Decision: 00:27 Condition: Good Mode of Transportation: Private Vehicle Prescriptions / Home Meds: New ondansetron 4 mg tablet,disintegrating 4 mg PO Q6H PRN (Reason: nausea and vomiting) Qty: 14 0RF No Action Pro Fe 180 mg iron capsule 180 mg PO QDAY cholecalciferol (vitamin D3) 25 mcg (1,000 unit) capsule 25 mcg PO DAILY bupropion HCl 300 mg tablet extended release 24 hr 300 mg PO DAILY aspirin 81 mg capsule 81 mg PO DAILY Complete 14 mg iron- 400 mcg tablet 1 tab PO DAILY [id number]-J8-L-mag--zinc 64-80-40-250 mg capsule 1 cap PO DAILY Print Language: Kosovan Instructions: Hypokalemia (ED), Acute Nausea and Vomiting (ED), Flank Pain (ED), at 27 to 30 Weeks (ED) Referrals: Darshan Watts MD [Primary Care Provider, Family Practice] - 1 week
[2024-12-10 00:31] VITALS: BP 118/69; PULSE 78; O2SAT 100
== END 2024-12-10 00:34 | disposition home or self-care (01) ==
PROVIDERS: Emergency Provider Emergency Medicine; PCP Family Medicine
DX: O21.2 Late vomiting of pregnancy (principal); O99.283 Endocrine, nutritional and metabolic diseases complicating pregnancy, third trimester; E87.6 Hypokalemia; R10.9 Unspecified abdominal pain; O26.893 Other specified pregnancy related conditions, third trimester; Z3A.30 30 weeks gestation of pregnancy; Z88.0 Allergy status to penicillin
CPT/HCPCS: 36415; 80048; 80307; 85025; 96365; 96367; 96375; 99284; J0131; J0696; J1200; J2405

== ENCOUNTER 2024-12-21 09:02 | Outpatient (OUT) | payer MEDICAID, SELFPAY ==
--- NOTE | 2024-12-21 09:16 | US_ITS ---
[address] [address] Patient Name: LB ANTONIO MRN: [id number] date: 1985 Sex: F Assigned Patient Location: [facility] Current Patient Location: Accession/Order Number: [id number] Exam Date: 12/21/2024 11:37 Report Date: 12/21/2024 11:39 At the request of: NORBERT WILLIS DO Procedure: US OB BPP w non-stress US OB BPP w non-stress 12/21/2024 9:57 AM SIGNS AND SYMPTOMS: ^MULTIGRAVIDA OF ADVANCED MATERNAL AGE O09.523 COMPARISON: None. TECHNIQUE: Limited pelvic ultrasound using transvesical sonography. FINDINGS: An intrauterine is identified. The visualized fetus has an estimated gestational age of 212 days. A heart rate is identified at 157 bpm. A normal amount of amniotic fluid is present. Amniotic fluid index is 12.77 cm There is no evidence for placenta previa or subchorionic hemorrhage. Pelvic survey reveals no gross abnormalities. US/US OB BPP w non-stress IMPRESSION: Single live IUP with an estimated gestational age of 212 days and normal heart rate. Impression dictated by: Jonah Metzger M.D. 12/21/2024 11:39 AM Dictation Location: [employer] [facility] Electronically authenticated by: [id number] Y Date: 12/21/2024 11:39
--- NOTE | 2024-12-21 09:17 | US_ITS ---
The [address] [address] Patient Name: LB ANTONIO MRN: [id number] date: 1985 Sex: F Assigned Patient Location: [facility] Current Patient Location: Accession/Order Number: [id number] Exam Date: 12/21/2024 11:39 Report Date: 12/21/2024 11:41 At the request of: NORBERT WILLIS DO Procedure: US OB growth US OB growth 12/21/2024 9:57 AM SIGNS AND SYMPTOMS: ^MULTIGRAVIDA OF ADVANCED MATERNAL AGE O09.523 COMPARISON: None. TECHNIQUE: Limited pelvic ultrasound using transvesical sonography. FINDINGS: An intrauterine is identified. The fetus has an estimated gestational age of 212 days. A heart rate is identified at 157 bpm. A normal amount of amniotic fluid is present. The amniotic fluid index is 12.77 cm There is no evidence for placenta previa or subchorionic hemorrhage. Pelvic survey reveals no gross abnormalities. US/US OB growth IMPRESSION: Single live IUP with an estimated gestational age of 212 days and normal heart rate. Impression dictated by: Jonah Metzger M.D. 12/21/2024 11:41 AM Dictation Location: [facility] Electronically authenticated by: [id number] Y Date: 12/21/2024 11:41
[2024-12-21 09:57] VITALS: BP 111/73; PULSE 79
== END 2024-12-21 10:32 | disposition home or self-care (01) ==
LOC: US 09:02 → FBC 09:05
PROVIDERS: PCP Family Medicine; Visit Provider Obstetrics & Gynecology
DX: O09.523 Supervision of elderly multigravida, third trimester (principal); Z3A.30 30 weeks gestation of pregnancy
CPT/HCPCS: 76816; 76818

== ENCOUNTER 2024-12-25 12:21 | Outpatient (OUT) | payer MEDICAID, SELFPAY ==
[2024-12-25 18:18] VITALS: BP 122/57; PULSE 89
== END 2024-12-25 14:30 | disposition home or self-care (01) ==
LOC: FBCO 12:22 → FBC 12:34
PROVIDERS: PCP Family Medicine; Visit Provider Obstetrics & Gynecology
DX: O09.523 Supervision of elderly multigravida, third trimester (principal); Z3A.32 32 weeks gestation of pregnancy
CPT/HCPCS: 59025

== ENCOUNTER 2024-12-28 09:04 | Outpatient (OUT) | payer MEDICAID, SELFPAY ==
--- OUTSIDE RECORDS SUMMARY | 2024-12-26 09:02 | XMS_ITS ---
Author Name Auto Generated Organization OHIP Care Team Providers Care Mortgage Advisor Name Role Phone DM KANG Attending Unavailable SILVIA, NORBERT R Referring Unavailable QUOC BELL M Primary Care Unavailable SILVIA, NORBERT R Referring Unavailable HOLuzmaria, QUOC M Primary Care Unavailable SILVIA, NORBERT R Referring Unavailable HOY, QUOC M Primary Care Unavailable Silvia, Norbert Attending Unavailable Silvia, Norbert Admitting Unavailable SILVIA, NORBERT Attending Unavailable SILVIA, NORBERT Attending Unavailable SILVIA, NORBERT Attending Unavailable SILVIA, NORBERT Attending Unavailable SILVIA, NORBERT Attending Unavailable SILVIA, NORBERT Attending Unavailable PROBLEMS DATE TYPE CONDITION / CODE ATTENDING STATUS [facility] 11/07/2024 Unknown Maternal care fo r unspecified type scar from previous delivery / O34.219(ICD-10) [facility] 10/09/2024 Unknown Encounter for ot her specified screening / Z36.89(ICD-10) [facility] 10/09/2024 Unknown Supervision of e lderly multigravida, second trimester / O09.522(ICD-10) [facility] 10/09/2024 Unknown Advanced Materna l Age / FREETEXT(AOF) [facility] 10/09/2024 Unknown Hx C/S x4 / UNK(Unknown) [facility] PROCEDURES No Procedure Records Found RESULTS US OB FOLLOW UP TRANSABDOMINAL APPROACH Observed: 12/11/2024 7:56 AM Status: F Source: [facility] EPIC Order Comment: US OB SCAN FO R GROWTH Estimated Date of Delivery: 02/17/25 Gestational Age as of 11/27/2024: 28w2d EXAM: US OB FOLLOW UP TRANSA BDOMINAL APPROACH HISTORY: AMA. DILCIA 02/17/2025. A4. x4. COMPARISON: NONE AVAILABLE. TECHNIQUE: Two-dimensional transabdominal grayscale ultrasound imaging of the pelvis was performed. FINDINGS: Gestation: Single Presentation: Cephalic Cardiac Activity: 164 beats per minute Placental Location: Posterior with no sonographic abnormalities identified. Distance from Placental Tip to Cervix: Not visualized Cervical Length: Obscured by overlying fetus Amniotic Fluid Index: 10.2 cm; MVP: 4.1 cm MEASUREMENTS: BPD: 7.4 cm EGA: 29 weeks 5 days HC: 26.7 cm EGA: 29 weeks 0 days AC: 26.7 cm EGA: 30 weeks 5 days FL: 5.6 cm EGA: 29 weeks 4 days HC/AC Ratio: 1.00 (0.98-1.20) Gestational age by today's ultrasound is 30 weeks 2 days (+/- 15 days gestation). Estimated Weight: 1520 grams, +/- 228 grams ( 3 lb 6 oz). Weight Percentile for gestational age: 32 % IMPRESSION: 1. Single, live intrauterine gestation 30 weeks, 2 days by LMP. Today's ultrasound measurements correlate with a gestational age of 29 weeks 5 days. Fetus is in the 32nd weight percentile for gestational age. Interpreted by: Electronically signed by TL SHARP II, MD, PHD at 13-Dec-2024 08:39:30 AM [facility] URINE CULTURE Observed: 07/31/2024 2:35 PM Status: F Source: [facility] 20,000 colonies/ml mixed bacterial skin contaminants 2 Days PERFORMED BY: [place] [address] PATHOLOGIST PRINCIPAL SECURITY ARCHITECT NAIDA GARZON M.D. Performed By: #### CUU #### [address] ALLERGIES DATE TYPE / CODE NAME / CODE REACTION SEVERITY SOURCE 11/20/2022 Drug Allergy/08163 8002(SNOMED CT) penicillin G/[id number](RXNORM ) throat swelling Unknown [facility] 10/20/2018 Drug Class/8870292 03(SNOMED CT) [facility] ENCOUNTERS ADMIT/DISCHARGE ACCOUNT NUMBER ADMITTING ENCOUNTER CLASS LOCATION SOURCE 12/26/2024/12/27/19 [id number] Ambulatory Building:[facility] OB [facility] 12/11/2024/12/12/19 [id number] Ambulatory Building:[facility] OB [facility] 12/11/2024/12/12/19 [id number] Ambulatory Building:[facility] OB [facility] 11/27/2024/11/28/19 [id number] Ambulatory Building:[facility] OB [facility] EPIC 11/07/2024/11/08/19 25 [id number] Ambulatory Building:PFM _[facility] 10/30/2024/10/31/19 25 [id number] Ambulatory Building:[facility] OB [facility] EPIC 10/09/2024/10/10/19 25 [id number] Ambulatory Building:PTH [facility] 10/09/2024/10/10/19 25 [id number] [address] Buildin 4 [facility] 10/02/2024/10/02/19 25 [id number] Ambulatory Building:[facility] OB [facility] EPIC 09/04/2024/09/04/19 25 [id number] Ambulatory Building:[facility] 07/31/2024/07/31/20 24 [id number] [facility] 07/28/2024/07/28/20 [id number] Ambulatory Building:[facility] OB [facility] EPIC PAYERS ENCOUNTER GUARANTOR PAYER SUBSCRIBER SOURCE 12/26/2024 JANNIE ERICKSON: [place], [place] [address]Wss: (HP) (WP) Primary Insurance:[employer] MEDICAID [place] Number: [id number] Date:2022-09-09 JANNIE ERICKSON: [id number] [place] [address] [facility] 12/11/2024 JANNIE ERICKSON: ERIN SKAGGSFLOWER [facility] [address]Hpj: (HP) (WP) Primary Insurance:[employer] MEDICAID [place] Number: [id number] Date:2022-09-09 JANNIE ERICKSON: [id number] [place] [address] [facility] EPIC 12/11/2024 JANNIE ERICKSON: [place]IN [place], [place] [address]Mnn: (HP) (WP) Primary Insurance:[employer] MEDICAID [place] Number: [id number] Date:2022-09-09 JANNIE ERICKSON: [id number] [place] [address] [facility] EPIC 11/27/2024 JANNIE ERICKSON: [place]IN [place], [place] [address]Wsm: (HP) (WP) Primary Insurance:[employer] MEDICAID [place] Number: [id number] Date:2022-09-09 JANNIE ERICKSON: [id number] [place] [address] [facility] EPIC 11/07/2024 JANNIE ERICKSON: ERIN [place]GR[place]AR[place], [place] [address]Fgd: (HP) Primary Insurance:[place] MEDICAIDPolicy Number: [id number] Date:2022-09-09 JANNIE ERICKSON: [id number] [address] [address]Ogw: (HP) [facility] 10/30/2024 JANNIE ERICKSON: ERIN DENGROMARIOFLOWER HOSPITALAAL[place] [address]Xiz: (HP) (WP) Primary Insurance:[employer] MEDICAID [place] Number: [id number] Date:2022-09-09 JANNIE ERICKSON: [id number] [place] [address] [facility] EPIC 10/09/2024 JANNIE MCMULLENB: [place], [place] [address]Nab: (HP) [place] Insurance:[place] MEDICAIDPolicy Number: [id number] Date:2022-09-09 JANNIE MCMULLENB: [id number] [facility] [address], [place] [address]Wri: (HP) [facility] 10/09/2024 JANNIE MCMULLENB: [place], [place] [address]Viw: (HP) [place] Insurance:[place] MEDICAIDPolicy Number: [id number] Date:2022-09-09 JANNIE MCMULLENB: [id number] [facility] [address], [place] [address]Akc: (HP) [facility] 10/02/2024 JANNIE ERICKSON: ERIN SOWMYAROMARIOFLOWER HOSPITALAAL[place], [place] [address]Dza: (HP) (WP) Primary Insurance:[employer] MEDICAID [place] Number: [id number] Date:2022-09-09 JANNIE ERICKSON: [id number] [place] [address] [facility] EPIC 09/04/2024 JANNIE ERICKSON: [place]IN [place], [place] [address]Lus: (HP) (WP) Primary Insurance:[employer] MEDICAID [place] Number: [id number] Date:2022-09-09 JANNIE ERICKSON: [id number] [place] [address] [facility] EPIC 07/31/2024 Jannie Collins5 [facility] [place] [address]Nkt: (HP) Primary Insurance:Self PayPolicy Number: Effective Date:2024-07-[address] [facility] 07/28/2024 JANNIE ERICKSON: [id number] [place], [place] [address]Yuw: (HP) (WP) Primary Insurance:[facility] MEDICAID [facility]: [id number] Date:2022-09-09 JANNIE ERICKSON: [id number] [place] [address] [facility] EPIC
--- NOTE | 2024-12-28 | US_ITS ---
The [place] [id number] Patient Name: LB ANTONIO MRN: [id number] date: 1985 Sex: F Assigned Patient Location: [facility] Current Patient Location: Accession/Order Number: [id number] Exam Date: 12/28/2024 10:13 Report Date: 12/28/2024 10:16 At the request of: NORBERT WILLIS DO Procedure: US OB BPP w non-stress BIOPHYSICAL PROFILE: CLINICAL INFORMATION: Multigravida of advanced maternal age O09.523 COMPARISON: 12/21/2024 There is a single live intrauterine gestation in cephalic presentation. The reported gestational age is 32 weeks 5 days. The heart rate [id number] beats per minute. FINDINGS: TONE: 1 or more episodes of activity extension and flexion of extremity or opening and closing of the hand [Y] 2/2 GROSS BODY MOVEMENTS: 3 or more discrete body or limb movements [Y] 2/2 BREATHING MOVEMENTS: 1 or more episodes of breathing lasting at least 30 seconds [Y] 2/2 LILIANA: A single deepest vertical pocket of amniotic fluid greater than 2 cm [Y] 2/2 LILIANA: 9.8 cm This is in low-normal range (5th percentile 8.3 cm). Total score: 8/8 US/US OB BPP w non-stress IMPRESSION: NORMAL BIOPHYSICAL PROFILE. Impression dictated by: Lise Bolanos M.D. 12/28/2024 10:16 AM Dictation Location: [place] [address] Electronically authenticated by: [id number] Y Date: 12/28/2024 10:16
[2024-12-28 09:24] VITALS: BP 116/78; PULSE 98
== END 2024-12-28 10:00 | disposition home or self-care (01) ==
LOC: US 09:04 → FBC 09:06
PROVIDERS: PCP Family Medicine; Visit Provider Obstetrics & Gynecology
DX: O09.523 Supervision of elderly multigravida, third trimester (principal); Z3A.32 32 weeks gestation of pregnancy
CPT/HCPCS: 76818

== ENCOUNTER 2025-01-01 12:06 | Outpatient (OUT) | payer MEDICAID, SELFPAY ==
--- OUTSIDE RECORDS SUMMARY | 2024-12-26 09:02 | XMS_ITS ---
Author Name Auto Generated Organization OHIP Care Team Providers Care Grommet Worker Name Role Phone NORBERT VEGA Attending Unavailable SILVIA, NORBERT Attending Unavailable SILVIA, NORBERT Attending Unavailable SILVIA, NORBERT Attending Unavailable SILVIA, NORBERT Attending Unavailable SILVIA, NORBERT Attending Unavailable PEARL, DM Attending Unavailable SILVIA, NORBERT R Referring Unavailable QUOC BELL M Primary Care Unavailable SILVIA, NORBERT R Referring Unavailable QUOC BELL M Primary Care Unavailable SILVIA, NORBERT R Referring Unavailable DULCE MARIA BELLLAS M Primary Care Unavailable Silvia, Norbert Attending Unavailable Silvia, Norbert Admitting Unavailable PROBLEMS DATE TYPE CONDITION / CODE ATTENDING STATUS [facility] 11/07/2024 Unknown Maternal care fo r unspecified type scar from previous delivery / O34.219(ICD-10) [facility] 10/09/2024 Unknown Encounter for ot her specified screening / Z36.89(ICD-10) [facility] 10/09/2024 Unknown Supervision of e lderly multigravida, second trimester / O09.522(ICD-10) [facility] 10/09/2024 Unknown Advanced Materna l Age / FREETEXT(AOF) [facility] 10/09/2024 Unknown Hx C/S x4 / UNK(Unknown) [facility] PROCEDURES No Procedure Records Found RESULTS US OB FOLLOW UP TRANSABDOMINAL APPROACH Observed: 12/11/2024 7:56 AM Status: F Source: [facility] EPIC Order Comment: [...] II, MD, PHD at 13-Dec-2024 08:39:30 AM [facility] URINE CULTURE Observed: 07/31/2024 2:35 PM Status: F Source: [facility] 20,000 colonies/ml mixed bacterial skin contaminants 2 Days PERFORMED BY: [place] [address] PATHOLOGIST CAREER SERVICES COORDINATOR NAIDA GARZON M.D. Performed By: #### CUU #### [address] ALLERGIES DATE TYPE / CODE NAME / CODE REACTION SEVERITY SOURCE 11/20/2022 Drug Allergy/40311 8002(SNOMED CT) penicillin G/[id number](RXNORM ) throat swelling Unknown [facility] 10/20/2018 Drug Class/3651000 03(SNOMED CT) [facility] ENCOUNTERS ADMIT/DISCHARGE ACCOUNT NUMBER ADMITTING ENCOUNTER CLASS LOCATION SOURCE 12/26/2024/12/27/19 [id number] Ambulatory Building:[facility] OB [facility] 12/11/2024/12/12/19 [id number] Ambulatory Building:[facility] OB [facility] 12/11/2024/12/12/19 [id number] Ambulatory Building:[facility] OB [facility] 11/27/2024/11/28/19 [id number] Ambulatory Building:[facility] OB [facility] EPIC 11/07/2024/11/08/19 25 [id number] Ambulatory Building:PFM _US [facility] 10/30/2024/10/31/19 25 [id number] Ambulatory Building:[facility] OB [facility] EPIC 10/09/2024/10/10/19 25 [id number] Ambulatory Building:PTH _[facility] 10/09/2024/10/10/19 25 [id number] Ambulatory Buildin 4 [facility] 10/02/2024/10/02/19 25 [id number] Ambulatory Building:[facility] OB [facility] EPIC 09/04/2024/09/04/19 25 [id number] Ambulatory Building:[facility] OB [facility] 07/31/2024/07/31/20 24 [id number] [facility] 07/28/2024/07/28/20 [id number] Ambulatory Building:[facility] OB [facility] EPIC PAYERS ENCOUNTER GUARANTOR PAYER SUBSCRIBER SOURCE 12/26/2024 JANNIE ERICKSON: [place], [place] [address]Jzu: (HP) (WP) Primary Insurance:[employer] MEDICAID [place] Number: [id number] Date:2022-09-09 JANNIE ERICKSON: [id number] [place] [address] [facility] 12/11/2024 JANNIE ERICKSON: ERIN SKAGGSWIL[facility], [place] [address]Ssn: (HP) (WP) Primary Insurance:[employer] MEDICAID [place]icy Number: [id number] Date:2022-09-09 JANNIE ERICKSON: [id number] [place] [address] [facility] EPIC 12/11/2024 JANNIE ERICKSON: [place]IN [place], [place] [address]Bae: (HP) (WP) Primary Insurance:[employer] MEDICAID [place]icy Number: [id number] Date:2022-09-09 JANNIE ERICKSON: [id number] [place] [address] [facility] EPIC 11/27/2024 JANNIE ERICKSON: [place], [place] [address]Lof: (HP) (WP) Primary Insurance:[employer] MEDICAID [place] Number: [id number] Date:2022-09-09 JANNIE ERICKSON: [id number] [place] [address] [facility] EPIC 11/07/2024 JANNIE ERICKSON: [place], [place] [address]Nur: (HP) [place] Insurance:[place] MEDICAID[place] Number: [id number] Date:2022-09-09 JANNIE ERICKSON: [id number] [address] [address]Abv: (HP) [facility] 10/30/2024 JANNIE ERICKSON: ERIN DENGROMARIOWIL[facility], [place] [address]Twx: (HP) (WP) Primary Insurance:[employer]BS MEDICAID [place]icy Number: [id number] Date:2022-09-09 JANNIE ERICKSON: [id number] [place] [address] [facility] EPIC 10/09/2024 JANNIE MCMULLENB: [place], [place] [address]She: (HP) [place] Insurance:[place] MEDICAID[place] Number: [id number] Date:2022-09-09 JANNIE MCMULLENB: [id number] [facility] [address], [place] [address]Tgu: (HP) [facility] 10/09/2024 JANNIE MCMULLENB: [place], [place] [address]Axt: (HP) [place] Insurance:[place] MEDICAIDPolicy Number: [id number] Date:2022-09-09 JANNIE MCMULLENB: [id number] [facility] [address], [place] [address]Lls: (HP) [facility] 10/02/2024 JANNIE ERICKSON: ERIN SOWMYAROMARIOWILSON [facility] [place], [place] [address]Euz: (HP) (WP) Primary Insurance:[employer]BS MEDICAID [place] Number: [id number] Date:2022-09-09 JANNIE ERICKSON: [id number] [place] [address] [facility] EPIC 09/04/2024 JANNIE ERICKSON: [place], [place] [address]Tgo: (HP) (WP) Primary Insurance:[employer] MEDICAID [place] Number: [id number] Date:2022-09-09 JANNIE ERICKSON: [id number] [place] [address] [facility] EPIC 07/31/2024 Jannie Collins5 [facility] [place] [address]Kla: (HP) Primary Insurance:Self PayPolicy Number: Effective Date:2024-07-31 NOT GIVENUNK [facility] 07/28/2024 JANNIE ERICKSON: [id number] [place], [place] [address]Tuf: (HP) (WP) Primary Insurance:[facility] MEDICAID [facility]: [id number] Date:2022-09-09 JANNIE ERICKSON: [id number] [place] [address] [facility] EPIC
[2025-01-01 12:11] VITALS: BP 120/75; PULSE 113
== END 2025-01-01 13:03 | disposition home or self-care (01) ==
LOC: FBCO 12:06 → FBC 12:07
PROVIDERS: PCP Family Medicine; Visit Provider Obstetrics & Gynecology
DX: O09.523 Supervision of elderly multigravida, third trimester (principal); Z3A.33 33 weeks gestation of pregnancy
CPT/HCPCS: 59025

== ENCOUNTER 2025-01-04 10:51 | Outpatient (OUT) | payer MEDICAID, SELFPAY ==
--- OUTSIDE RECORDS SUMMARY | 2023-11-22 10:24 | XMS_ITS | Continuity of Care Document ---
Author Organization [facility] Address [address] [place] [address] Phone Care Team Providers Care Experience Planning Strategist Name Role Phone Macario Pichardo DMD Unavailable [...] Diagnoses Date Provider Providers Copied on Encounter [facility], [address] [place] [address], [id number], [place] tel:[phone] Dental Clinic er (chief complaint) Body mass index [BMI] 33.0-33.9, adultEncounter for screening for dental disorders Kylee Sorto. [address] [place] [address], [id number] , [place]. tel:[phone] Family History Family Member Type Diagnosis Age At Onset No Information Payers Payer name Insurance type Covered libertarian ID Authoriza tion(s) D Medicaid [facility] [id number] Social History Type Description Quantity Date Captured [...]
--- OUTSIDE RECORDS SUMMARY | 2024-06-27 09:37 | XMS_ITS ---
Author Organization [facility] in [place] Address [address] [place] [address] Care Team Providers Care Office Supervisor Name Role Phone Emeka Watts Primary Care Provider REASON FOR VISIT anxiety Encounters Encounter Location Date Provider Diagnosis [address] [facility] [place] [address] 06/27/2024 Emeka Watts Plan Of Treatment No Information Progress Notes * Jnanie SANON RDOB: [birth year] (38 yo F)Acc No.[id number]:06/27/2024 Patient: Jannie JEFFREY :1985 A ge:38 Y S ex:Female Address:[address] [place] [address] * true * Date: Generated for Heather agosto/Marcus/eTransmitting on: 0 01/04/2025 10:53 AM EDT
--- OUTSIDE RECORDS SUMMARY | 2024-08-18 09:34 | XMS_ITS ---
Author Organization [facility] in [place] Address [address] [place] [address] Care Team Providers Care Pupil Personnel Services Director Name Role Phone Emeka Watts Primary Care Provider REASON FOR VISIT sick Medications Medication SIG (Take, Route, Frequency, Duration) Notes Start Date End Date Status Doxycycline Monohydrate 100 MG 1 capsule Orally bid for 10 days 08/18/2024 Active Encounters Encounter Location Date Provider Diagnosis [address] [address] 08/18/2024 Emeka Javyemma Plan Of Treatment Medication Medication Name Sig Start Date Stop Date Notes Cleocin 300 MG 1 capsule Orally QID 08/11/2023 levoFLOXacin 750 MG 1 tablet Orally Once a day 05/24/2024 Doxycycline Monohydrate 100 MG 1 capsule Orally bid for 10 days 08/18/2024 Progress Notes * Jannie SANON RDOB: [birth year] (38 yo F)Acc No.[id number]:08/18/2024 Patient: Jannie JEFFREY :1985 A ge:38 Y S ex:Female Address:[address] [place] [address] * Refills Stop levoFLOXacin Tablet, 750 MG, Orally, 1 tablet, Once a day Stop Cleocin Capsule, 300 MG, Orally, 1 capsule, QID Start Doxycycline Monohydrate Capsule, 100 MG, Orally, 20 Capsule, 1 capsule, bid, 10 days, Refills=0 * true * Date: Generated for Heather agosto/Marcus/Alfreditting on: 0 01/04/2025 10:53 AM EDT
--- OUTSIDE RECORDS SUMMARY | 2024-09-11 13:00 | XMS_ITS ---
Author Organization [facility] in [place] Address [address] [place] [address] Care Team Providers Care Outboard Motors Experimental Mechanic Name Role Phone Emeka Watts Primary Care Provider [phone] Allergies Allergen (clinical drug ingredient) Drug/Non Drug [...] 09/11/2024 Encounters Encounter Location Date Provider Diagnosis [facility] [address] [place] [address] 09/11/2024 Emeka Hoy Acute non-recurrent sinusitis, unspecified location J01.90 and Nasal congestion R09.81 Assessments Encounter Date Diagnosis (ICD Code) Assessment Notes Treatment Notes Treatment Clinical Notes Section Notes 09/11/2024 Acute non-recurrent sinusitis, unspecified location (ICD-10 - J01.90) Rest and drink more liquids, especially water. You may use a humidifier or vaporizer to help keep the drainage moist. Kyop-how-cxkdesw Nasal Saline may help the stuffy and runny nose. Use Ibuprofen and or Tylenol as needed for fever, chills, body aches or pain. Children 5 years old should not be given pibq-rul-aczddyq cough and cold medications such as guaifenesin and dextromethorphan. If you're over age 5, you may try dtbu-jhu-jofvwky cold medications such as guaifenesin and dextromethorphan, [...] vaporizer to help keep the drainage moist. Qjda-grh-gcyaslh Nasal Saline may help the stuffy and runny nose. Use Ibuprofen and or Tylenol as needed for fever, chills, body aches or pain. Children 5 years old should not be given pgmp-ced-rgqgoqo cough and cold medications such as guaifenesin and dextromethorphan. If you're over age 5, you may try hhfw-unt-xdqdrbj cold medications such as guaifenesin and dextromethorphan, [...] Jannie SANON RDOB: [birth year] (38 yo F)Acc No.[id number]:09/11/2024 Progress Note Patient: Jannie JEFFREY Provider: Juliane Watts ([facility])MD :1985 A ge:38 Y S ex:Female Date:09/11/2024 Address:[facility] [facility], [id number] Check In:04:31 PM ESTCheck O ut:05:04 PM [...] Rash d enies. E NT: Comments S [facility] for details. C ardiovascular: Edema d [...] Procedure Codes: * Preventive Medicine: Screenings/Counseling: B SD ACTION PLAN Above Normal BMI Follow-up D ietary management education, guidance, and counseling * Follow Up: 3 -5 days if not improving * * Sign off status: Completed Visit Status: C HK (Check Out) true * Provider: Juliane Watts ([facility])MD Date: 0 09/11/2024 Generated for Fideli surendra/Marcus/eTransmitting on: 0 01/04/2025 10:53 AM EDT History and Physical Notes * [...]
--- OUTSIDE RECORDS SUMMARY | 2024-12-26 09:00 | XMS_ITS | Encounter Summary ---
Author Organization [facility] Address [address] [place] [address] Care Team Providers Care Model And Dye Person Name Role Phone Darshan Watts MD Primary Care Provider [phone] Reason for Visit * Reason Comments Routine Visit Encounter Details Date Type Department Care Team (Late st Contact Info) Description 12/26/2024 9:00 AM EDT Routine [facility] [address] [place] [phone] Kannan Vega, DO [address] [facility] [place] [address] 32 weeks gestation of ; Third trimester [...] this encounter Progress Notes * Lise Calderon, LITHOGRAPH PRINTER - 12/26/2024 9:00 AM EDT Reason for [...] LOW TRANSVERSE x4 PAP SMEAR 06/18/2021 negative TX DILATION & CURETTAGE DX&/THER NONOBSTETRIC TONSILLECTOMY TUBAL [...] nursing note reviewed. Exam conducted with a pyrometer operator present. Vitals: Estimated body mass index is [...] Upcoming Encounters Date Type Department Care Team ([facility] st Contact Info) Description 01/08/2025 10:00 AM EDT Routine [facility] [address] [facility] [place] [phone] Kannan Vega DO [address] [facility] [address] [place], [place] [id number] documented as of this encounter Procedures Procedure [...] incidental documented in this encounter Care Teams Model And Dye Person Relationship Specialty Start Date End Date Darshan Watts MD [address] [facility] [place] [address] PCP - General Family Medicine 12/28/22 documented as of this encounter
--- OUTSIDE RECORDS SUMMARY | 2025-01-04 10:53 | XMS_ITS | Encounter Summary ---
Author Organization [facility] Address [address] [place] [address] Care Team Providers Care Social Problems Specialist Name Role Phone Darshan Watts MD Primary Care Provider [phone] Encounter Details Date Type Department Care Team (Late st Contact Info) Description 12/21/2024 Clinisync Result Encounter [facility] Department Unsolicited Norbert Vega, DO [address] [place] [address] Social History Tobacco Use Types Packs/Day Years [...] on file documented as of this encounter Plan of Treatment Upcoming Encounters Date Type Department Care Team (Late st Contact Info) Description 01/08/2025 10:00 AM EDT Routine [facility] [address] [place] [id number] Norbert Vega DO [address] [place] [address] documented as of this encounter Procedures Procedure Name Priority Date/Time Associated Diagnosis Comments US OB GROWTH 12/21/2024 11:41 AM EDT documented in this encounter Results * US OB GROWTH (12/21/2024 11:41 AM EDT) Anatomical Region Laterality Modality Other 12/21/2024 11:4 1 AM EDT Narrative 12/21/2024 11:43 [place] [address] Ultrasound Report Signed Patient: LB SANON MR#: [id number] : 1985 Acct:[id number] Age/Sex: 39 / F ADM Date: 12/21/24 Loc: US Attending Dr: Norbert Vega D.O. Ordering Physician: Norbert Vega D.O. Date of Service: 12/21/24 Procedure(s): US OB growth Accession Number(s): [id number] cc: Norbert Vega D.O.; Darshan Watts M.D. [place] [address] Patient Name: LB SANON MRN: [id number] date: 1985 Sex: F Assigned Patient Location: [facility] Current Patient Location: Accession/Order Number: [id number] Exam Date: 12/21/2024 11:39 Report Date: 12/21/2024 11:41 At the request of: NORBERT VEGA DO Procedure: US OB growth US OB growth 12/21/2024 9:57 AM SIGNS AND SYMPTOMS: MULTIGRAVIDA OF ADVANCED MATERNAL AGE O09.523 COMPARISON: None. TECHNIQUE: Limited pelvic ultrasound using transvesical sonography. FINDINGS: An intrauterine is identified. The fetus has an estimated gestational age of 212 days. A heart rate is identified at 157 bpm. A normal amount of amniotic fluid is present. The amniotic fluid index is 12.77 cm There is no evidence for placenta previa or subchorionic hemorrhage. Pelvic survey reveals no gross abnormalities. US/US OB growth IMPRESSION: Single live IUP with an estimated gestational age of 212 days and normal heart rate. Impression dictated by: Jonah Metzger M.D. 12/21/2024 11:41 AM Dictation Location: [place] [address] Electronically authenticated by: [id number] Y Date: 12/21/2024 11:41 Dictated By: Jonah Metzger M.D. Signed By: 12/21/24 1143 DD/ 1141 TD/TT: Lieutenant Shift Supervisor: Procedure Note Radiology, Radiologist, MD - 12/21/2024 [place] [address] Ultrasound Report Signed Patient: LB SANON RMR#: [id number] : 1985Acct:[id number] Age/Sex: 39 / FADM Date: 12/21/24 Loc: US Attending Dr: Norbert Vega D.O. Ordering Physician: Norbert Vega D.O. Date of Service: 12/21/24 Procedure(s): US OB growth Accession Number(s): [id number] cc: Norbert Vega D.O.; Darshan Watts M.D. [facility] [place] [id number] Patient Name: LB SANON MRN: [id number] date: 1985 Sex: F Assigned Patient Location: [facility] Current Patient Location: Accession/Order Number: [id number] Exam Date: 12/21/2024 11:39 Report Date: 12/21/2024 11:41 At the request of: NORBERT VEGA DO Procedure: US OB growth US OB growth 12/21/2024 9:57 AM SIGNS AND SYMPTOMS: MULTIGRAVIDA OF ADVANCED MATERNAL AGE O09.523 COMPARISON: None. TECHNIQUE: Limited pelvic ultrasound using transvesical sonography. FINDINGS: An intrauterine is identified. The fetus has an estimated gestational age of 212 days. A heart rate is identified at 157 bpm. Anormal amount of amniotic fluid is present. The amniotic fluid index is 12.77 cm There is no evidence for placenta previa or subchorionic hemorrhage. Pelvic survey reveals no gross abnormalities. US/US OB growth IMPRESSION: Single live IUP with an estimated gestational age of 212 days and normalheart rate. Impression dictated by: Jonah Metzger M.D. 12/21/2024 11:41 AM Dictation Location: [place] [address] Electronically authenticated by: [id number] Y Date: 1:41 Dictated By: Jonah Metzger M.D. Signed By:12/21/24 1143 DD/ 1141 TD/TT: Lieutenant Shift Supervisor: us Norbert Silvia DO [facility] Final Result documented in this encounter Visit Diagnoses Not on filedocumented in this encounter Care Teams Social Problems Specialist Relationship Specialty Start Date End Date Darshan Watts MD [address] [place] [address] PCP - General Family Medicine 12/28/22 documented as of this encounter
--- OUTSIDE RECORDS SUMMARY | 2025-01-04 10:53 | XMS_ITS | Clinical Summary ---
Author Organization [employer] s tem Address [id number] [address] [place] [address] Care Team Providers Care Certified Hearing Instrument Dispenser Name Role Phone Darshan Watts MD Primary Care Provider [phone] Allergies Active Allergy Reactions Criticality Noted Date Comments Penicillins 10/20/2018 Medications * This document contains information received from the source organization and may not represent a complete record from that organization. buPROPion XL (WELLBUTRIN XL) 300 mg 24 hr tablet Take 1 tablet (300 mg total) by mouth in the morning. Active citalopram (CeleXA) 20 mg tablet Take 1 tablet (20 mg total) by mouth in the morning. Active progesterone (PROMETRIUM) 200 mg capsule Take 1 capsule (200 mg total) by mouth in the morning. Active aspirin 81 mg chewable tablet Chew 1 tablet (81 mg total) and swallow in the morning. Active cholecalciferol 1,000 units tablet Take 1 tablet (1,000 Units total) by mouth in the morning. Active omega 3-kxn-mbn-fish oil (Fish OiL) 300-1,000 mg capsule Take 1 capsule by mouth once daily. Active coenzyme Q10 50 mg capsule Take 1 capsule (50 mg total) by mouth in the morning. Active Active Problems Problem Noted Date Diagnosed Date Multigravida of advanced maternal age in second trimester 10/09/2024 Major depressive disorder, single episode, mild 04/19/2018 Estimated Date of Delivery Comme nts Yes 02/17/2025 Based on last me nstrual period of 05/13/2024 Encounters Date Type Department Care Team Description 11/07/2024 9:52 AM EDT - 11/07/2024 11:59 PM EDT Hospital Encounter [facility] [place] - Ultrasound [address] [place] [phone] Multigravida of advanced maternal age in second trimester; History of delivery affecting Discharge Disposition: Home 11/07/2024 Travel 10/09/2024 11:00 AM EST Office Visit Maternal- Medicine at [facility] [address] [place] [phone] Gen Kang MD Multigravida of advanced maternal age in second trimester (Primary Dx) 10/09/2024 9:38 AM EST - 10/09/2024 11:59 PM EST Hospital Encounter [facility] - [facility] [address] [place] [phone] Screening, , for anatomic survey; Multigravida of advanced maternal age in second trimester Discharge Disposition: Home 10/09/2024 Orders Only Maternal- Medicine at [facility] [address] [place] [phone] Sydni Kennedy RN Multigravida of advanced maternal age in second trimester (Primary Dx); History of delivery affecting 10/08/2024 Travel from Last 3 Months Family History Medical History Relation Name Comments Mental illness Mother Breast cancer Paternal great-grandmother Diabetes Sister Relation Name Status Comments Mother Paternal great-grandmother Sister Social History Tobacco Use Types Packs/Day Years Used Date Smoking Tobacco: Never Smokeless Tobacco: Never Tobacco Cessation:Counseling Given: Not Answered Alcohol Use Standard Drinks/Week Comments Not Currently 0 (1 standard drink = 0.6 oz pur e alcohol) occassionally Childcare Answer Date Recorded Childcare Unknown 01/18/2019 Employment Answer Date Recorded Employment Unknown 01/18/2019 Hunger Screening Answer Date Recorded Within the past 12 months we worried whether our food would run out before we got money to buy more. Never True 10/09/2024 Within the past 12 months th e food we bought just didn't last and we didn't have money to get more. Never True 10/09/2024 Purpose - Life Answer Date Recorded Purpose and direction in life Unknown Estimated Date of Delivery Comme nts Yes 02/17/2025 Based on last me nstrual period of 05/13/2024 Sex and Gender Information Value Date Recorded Sex Assigned at Not on file Legal Sex Female 11:29 AM EDT Gender Identity Not on file Sexual Orientation Not on file Last Filed Vital Signs Vital Sign Reading Time Taken Comments Blood Pressure 131/83 10/09/2024 10:01 AM EST Pulse 89 10/09/2024 10:01 AM EST Temperature - - Respiratory Rate 16 10/20/2018 3:34 PM EDT Oxygen Saturation - - Inhaled Oxygen Concentration - - Weight 73.2 kg (161 lb 6.4 oz) 10/09/2024 10:01 AM EST Height 152.4 cm (5') 10/20/2018 3:34 PM EDT Body Mass Index 31.52 10/20/2018 3:34 PM EDT Plan of Treatment Health Maintenance Due Date Last Done Comments Depression Screening 1997 DTaP,Tdap and Td Vaccines (1 - Tdap) 2004 Pap Smear 2006 Influenza Vaccine 04/09/2025 Adult BMI Screening 10/09/2025 10/09/2024 Tobacco Screening 10/09/2025 10/09/2024 Medical Devices Not on file Procedures Procedure Name Priority Date/Time Associated Diagnosis Comments US [facility] OB FOLLOW-UP, 1 FETUS Routine 11/07/2024 11:40 AM EDT Multigravida of advanced maternal age in second trimester History of delivery affecting US [facility] COMPREHENSIVE ANATOMIC SURVEY Routine 10/09/2024 11:12 AM EST Screening, , for anatomic survey Multigravida of advanced maternal age in second trimester from Last 3 Months Results * US [facility] OB FOLLOW-UP, 1 FETUS (11/07/2024 11:40 AM EDT) Only the most recent of2 resultswithin the time period is included. Anatomical Region Laterality Modality OB-CV RN Ultrasound 11/07/2024 10:0 2 AM EDT Narrative 11/07/2024 4:36 PM EDT NAME: PACO ASHER : 1985 SEX: F Accession Number: [id number] ORDERING PHYSICIAN: GEN KANG REFERRING PHYSICIAN: NORBERT WILLIS Coding ----- --------- Procedures 93851: Follow-up Ultrasound, per fetus Indication ----- --------- Screening for follow-up survey, AMA- Supervision of elderly, Depression, Anxiety, Previous x4, Obesity in History ----- --------- OB History 9. Para 4 [id number] Current ----- --------- Cell free DNA Low Risk analysis Maternal Assessment ----- --------- Physical Exam Height 152 cm, 5 ft 0 in. Weight 73 kg, 161 lb. BMI 31.44 kg/m Method ----- --------- Transabdominal ultrasound examination ----- --------- Zhao . Number of fetuses: 1 Dating ----- --------- LMP on: 05/13/2024 GA by LMP 25 w + 3 d DILCIA by LMP: 02/17/2025 Ultrasound examination on: 11/07/2024 GA by U/S based upon: AC, BPD, Femur, HC GA by U/S 24 w + 5 d DILCIA by U/S: 02/22/2025 Assigned: based on the LMP, selected on 10/09/2024 Assigned GA 25 w + 3 d Assigned DILCIA: 02/17/2025 General Evaluation ----- --------- Cardiac activity Present. FHR 132 bpm. Presentation: cephalic Placenta: Placental site: posterior, away from cervical os Umbilical cord: Cord vessels: 3 vessel cord Amniotic fluid: Amount of AF: normal amount. MVP 4.4 cm Biometry ----- --------- BPD 59.2 mm 24w 1d 8% Hadlock OFD 81.9 mm 26w 4d 84% Juan Manuel HC 228.0 mm 24w 6d 12% Hadlock Cerebellum tr 27.2 mm 24w 1d 20% Hill AC 202.0 mm 24w 6d 23% Hadlock Femur 45.1 mm 24w 6d 21% Hadlock Humerus 42.5 mm 25w 4d 44% Juan Manuel HC / AC 1.13 Weight Calculation: EFW 738 g 18% Hadlock EFW (lb,oz) 1 lb 10 oz EFW by Hadlock ([id number]) Head / Face / Neck Biometry: Cephalic index 0.72 3% [employer] Finisher 1.5 mm CM 5.3 mm 23% Nicolaides Extremities / Bony Struc Biometry: FL / BPD 0.76 FL / HC 0.20 FL / AC 0.22 Tibia 39.0 mm 24w 6d 27% Juan Manuel Anatomy ----- --------- The following structures appear normal: Head/Neck: Cranium. Lateral ventricles. Cavum septi pellucidi. Cerebellum. Cisterna magna. Parenchyma. Face: Mandible. Orbits. Heart/Thorax: 4-chamber view. RVOT view. 5-vtximt-fcijzrc view. Aortic arch view. Bicaval view. Ductal arch view. Interventricular septum. Great vessels. Cardiac position. Cardiac axis. Cardiac size. Cardiac rhythm. Right lung. Left lung. Diaphragm. Abdomen: Abdom. wall. Cord insertion. Stomach. Kidneys. Bladder. Small bowel. Large bowel. Genitals. Spine: Cervical spine. Thoracic spine. Lumbar spine. Sacral spine. Extremities/Skeleton: Right foot. Left foot. Skeleton The following structures were documented previously: Head / Neck Choroid plexus. Midline falx. Vermis. Neck. Face Lips. Profile. Nose. Nasal bone. Maxilla. Heart / Thorax LVOT view. 3-vessel view. Situs. Abdomen Right renal artery. Left renal artery. Extremities / Right upper arm. Right forearm. Right hand. Left upper arm. Left forearm. Left hand. Right upper leg. Right lower leg. Left upper leg. Left lower leg. Maternal Structures ----- --------- Uterus Visualized Cervix Visualized Approach - Transabdominal Right Ovary Not visualized Left Ovary Not visualized Cul de Sac Visualized Impression ----- --------- Single viable intrauterine with EFW measuring at the 18%. AC measures at the 23%. anatomic survey did not reveal sonographic evidence of any gross structural abnormalities. Amniotic fluid MVP measures 4.4 cm. Recommendations ----- --------- Please see [facility] recommendations from prior clinical and/or ultrasound report documentation. Subsequent follow up or other follow up as clinically determined by primary OB provider unless otherwise specified by [facility]. Results forwarded to ordering provider so they can follow up with the patient as necessary. Procedure Note Damián Short MD - 11/07/2024 NAME: PACO ASHER : 1985 SEX: F Accession Number: [id number] ORDERING PHYSICIAN: GEN KANG REFERRING PHYSICIAN: NORBERT WILLIS Coding ----- --------- Procedures 10112: Follow-up Ultrasound, per fetus Indication ----- --------- Screening for follow-up survey, AMA- Supervision of elderly, Depression,Anxiety, Previous x4, Obesity in History ----- --------- OB History 9. Para 4 [id number] Current ----- --------- Cell free DNA Low Risk analysis Maternal Assessment ----- --------- Physical Exam Height 152 cm, 5 ft 0 in. Weight 73 kg, 161 lb. BMI 31.44kg/m Method ----- --------- Transabdominal ultrasound examination ----- --------- Zhao . Number of fetuses: 1 Dating ----- --------- LMP on: 05/13/2024 GA by LMP 25 w + 3 d DILCIA by LMP: 02/17/2025 Ultrasound examination on: 11/07/2024 GA by U/S based upon: AC, BPD, Femur, HC GA by U/S 24 w + 5 d DILCIA by U/S: 02/22/2025 Assigned: based on the LMP, selected on 10/09/2024 Assigned GA 25 w + 3 d Assigned DILCIA: 02/17/2025 General Evaluation ----- --------- Cardiac activity Present. FHR 132 bpm. Presentation: cephalic Placenta: Placental site: posterior, away from cervical os Umbilical cord: Cord vessels: 3 vessel cord Amniotic fluid: Amount of AF: normal amount. MVP 4.4 cm Biometry ----- --------- BPD 59.2 mm 24w 1d 8% Hadlock OFD 81.9 mm 26w 4d 84% Juan Manuel HC 228.0 mm 24w 6d 12% Hadlock Cerebellum tr 27.2 mm 24w 1d 20% Hill AC 202.0 mm 24w 6d 23% Hadlock Femur 45.1 mm 24w 6d 21% Hadlock Humerus 42.5 mm 25w 4d 44% Juan Manuel HC / AC 1.13 Weight Calculation: EFW 738 g 18% Hadlock EFW (lb,oz) 1 lb 10 oz EFW by Hadlock ([id number]) Head / Face / Neck Biometry: Cephalic index 0.72 3% [employer] 1.5 mm CM 5.3 mm 23% Nicolaides Extremities / Bony Struc Biometry: FL / BPD 0.76 FL / HC 0.20 FL / AC 0.22 Tibia 39.0 mm 24w 6d 27% Juan Manuel Anatomy ----- --------- The following structures appear normal: Head/Neck: Cranium. Lateral ventricles. Cavum septi pellucidi. Cerebellum.Cisterna magna. Parenchyma. Face: Mandible. Orbits. Heart/Thorax: 4-chamber view. RVOT view. 8-hyugmg-dqaolnn view. Aorticarch view. Bicaval view. Ductal arch view. Interventricular septum. Great vessels. Cardiac position. Cardiacaxis. Cardiac size. Cardiac rhythm. Right lung. Left lung. Diaphragm. Abdomen: Abdom. wall. Cord insertion. Stomach. Kidneys. Bladder. Smallbowel. Large bowel. Genitals. Spine: Cervical spine. Thoracic spine. Lumbar spine. Sacral spine. Extremities/Skeleton: Right foot. Left foot. Skeleton The following structures were documented previously: Head / Neck Choroid plexus. Midline falx. Vermis. Neck. Face Lips. Profile. Nose. Nasal bone. Maxilla. Heart / Thorax LVOT view. 3-vessel view. Situs. Abdomen Right renal artery. Left renal artery. Extremities / Right upper arm. Right forearm. Right hand. Left upper arm.Left forearm. Left hand. Right upper leg. Right lower leg. Left upper leg. Left lower leg. Maternal Structures ----- --------- Uterus Visualized Cervix Visualized Approach - Transabdominal Right Ovary Not visualized Left Ovary Not visualized Cul de Sac Visualized Impression ----- --------- Single viable intrauterine with EFW measuring at the 18%. FetalAC measures at the 23%. anatomic survey did not reveal sonographic evidence of any grossstructural abnormalities. Amniotic fluid MVP measures 4.4 cm. Recommendations ----- --------- Please see [facility] recommendations from prior clinical and/or ultrasoundreport documentation. Subsequent follow up or other follow up as clinically determined byprimary OB provider unless otherwise specified by MFM. Results forwarded to ordering provider so they can follow up with thepatient as necessary. us Gen Kang MD [facility] ORDERABLES Final Resul t from Last 3 Months Insurance [employer] Care Teams Certified Hearing Instrument Dispenser Relationship Specialty Start Date End Date Darshan Watts MD PCP - General 04/04/18
--- OUTSIDE RECORDS SUMMARY | 2025-01-04 10:53 | XMS_ITS | Clinical Summary ---
Author Organization [facility] Address [address] [place] [address] Care Team Providers Care Career And Guidance Counselor Name Role Phone Darshan Watts MD Primary Care Provider [phone] Allergies Active Allergy Reactions Criticality Noted Date Comments Cefaclor Anaphylaxis High 10/30/2024 Penicillin G Anaphylaxis High 10/30/2024 Penicillins Unknown 10/20/2018 Other Reaction(s): Abdominal discomfort Sulfamethoxazole-Trimethop rim 10/30/2024 Other Reaction(s): hives Medications aspirin 81 MG EC tablet Take 81 mg by mouth in the morning. Active cholecalciferol (Vitamin D-3) 25 MCG (1000 UT) capsule Take by mouth Daily. Active buPROPion XL (Wellbutrin XL) 300 MG 24 hr tablet Take 300 mg by mouth in the morning. 06/18/2024 Active omega-3 (FISH OIL) 300 MG capsule Take 300 mg by mouth Daily Active co-enzyme Q-10 30 MG capsule Take 30 mg by mouth Daily Active MV-Min-Fe Fum-FA-DHA ( 1 PO) Take 1 tablet by mouth Daily Active citalopram (CeleXA) 20 MG tablet Take 20 mg by mouth in the morning. Active simvastatin (Zocor) 40 MG tablet Take 1 tablet by mouth in the evening Active venlafaxine XR (Effexor XR) 37.5 MG 24 hr capsuleIndicatio ns:Anxiety, generalized (CMS/HCC) Take 1 capsule (37.5 mg) by mouth Daily Do not crush or chew. 30 capsule 2 11/01/2024 11/02/19 26 Active Active Problems Problem Noted Date Diagnosed Date Anxiety, generalized 01/15/2023 Estimated Date of Delivery Comme nts Yes 02/17/2025 Based on last me nstrual period of 05/13/2024, unknown period. Encounters Date Type Department Care Team Description 01/01/2025 Travel 12/28/2024 Clinisync Result Encounter [facility] External Department Unsolicited Norbert Vega, DO 12/26/2024 9:00 AM EDT Routine [facility] [address] [place] [address] Norbert Vega, 32 weeks gestation of ; Third trimester 12/26/2024 Bamboo flowsheet [facility] [address] [place] [address] Norbert Vega, DO 12/21/2024 Travel 12/21/2024 Clinisync Result Encounter [facility] External Department Unsolicited Norbert Vega, DO 12/21/2024 Clinisync Result Encounter [facility] External Department Unsolicited Norbert Vega, DO 12/11/2024 8:30 AM EDT Routine [facility] [address] [place] [address] Norbert Vega, Third trimester ; 30 weeks gestation of 12/11/2024 8:00 AM EDT Ancillary Procedure [facility] [address] [place] [address] Multigravida of advanced maternal age in third trimester 12/11/2024 Abstract [facility] [address] [place] [address] Norbert Vega, DO 12/09/2024 Clinisync Result Encounter [facility] External Department Unsolicited Norbert Vega, DO 11/30/2024 Clinisync Result Encounter [facility] External Department Unsolicited Norbert Vega, DO 11/27/2024 1:10 PM EDT Routine [facility] [address] [place] [address] Norbert Vega, Third trimester ; 28 weeks gestation of ; Multigravida of advanced maternal age in third trimester; Anemia during in second trimester 11/27/2024 Bamboo flowsheet [facility] [address] [facility] [address] [place] [address] Norbert Vega, DO 11/08/2024 Abstract [facility] [address] [place] [address] Norbert Vega, DO 11/01/2024 Telephone [facility] [address] [place] [address] Norbert Vega, 10/30/2024 2:50 PM EDT Routine [facility] OB [address] [facility] [place] [address] Norbert Vega, Anemia during in second trimester; Second trimester ; 24 weeks gestation of 10/30/2024 Bamboo flowsheet [facility] OB [address] [facility] [address] [place] [address] Norbert Vega, 2024 Travel 10/23/2024 Clinisync Result Encounter [facility] External Department Unsolicited Norbert Vega, 10/19/2024 Telephone [facility] OB [address] [facility] [address] [place] [address] Dayami Dumont MA 10/10/2024 Abstract [facility] OB [address] [place] [address] Norbert Vega, 10/10/2024 Telephone [facility] OB [address] [place] [address] Norbert Vega, 10/10/2024 Abstract [facility] OB [address] [facility] [place] [address] Norbert Vega, from Last 3 Months Family History * Patient is adopted Medical History Relation Name Comments Mental illness Mother Breast cancer Paternal Great-Grandmother 2 half sisters 5 half brothers Relation Name Status Comments Brother Unknown status Daughter 1 Alive Daughter 2 Alive Daughter 3 Alive Daughter 4 Alive Father Alive Half-Brother (5) Half-Sister (2) Mother Alive Paternal Great-Grandmother Sister 1 Other Unknown status Sister 2 Other Unknown status Sister 3 Other Unknown status Social History Tobacco Use Types Packs/Day Years Used Date Smoking Tobacco: Never Smokeless Tobacco: Never Tobacco Cessation:Counseling Given: Not Answered Alcohol Use Standard Drinks/Week Comments Yes 1 [...] oz) 12/26/2024 9:35 A M EDT Height 152.4 cm (5') 03/01/2023 1:24 PM EDT Body Mass Index 31.08 03/01/2023 1:24 PM EDT Plan of Treatment Upcoming Encounters Date Type Department Care Team (Late st Contact Info) Description 01/08/2025 10:00 AM EDT Routine [facility] [address] [facility] [place] [address] Norbert Vega, DO [address] [facility] [place] [address] Health Maintenance Due Date Last Done Comments Influenza Vaccine (Season Ended) 2025 Cervical Cancer Screening 12/22/2027 HPV/Cotest 12/22/2027 Pap Smear 12/22/2027 12/21/2022 Procedures Procedure Name Priority Date/Time Associated Diagnosis Comments US OB BPP W NON-STRESS 12/28/2024 10:16 AM EDT POCT URINALYSIS DIPSTICK Routine 12/26/2024 9:40 AM EDT 32 weeks gestation of Third trimester US OB GROWTH 12/21/2024 11:41 AM EDT US OB BPP W NON-STRESS 12/21/2024 11:39 AM EDT POCT URINALYSIS DIPSTICK Routine 12/11/2024 8:55 AM EDT Third trimester US OB FOLLOW UP TRANSABDOMINAL APPROACH Routine 12/11/2024 8:18 AM EDT Multigravida of advanced maternal age in third trimester TBH URINE MICROSCOPIC ONLY Routine 12/09/2024 2:00 PM EDT TBH UA (CLEAN/CATCH) MICROSCOPIC IF INDICATE Routine 12/09/2024 2:00 PM EDT TBH UA (CLEAN/CATCH) LOAN TELLER/MICRO IF IND. Routine 11/30/2024 4:48 PM EDT POCT URINALYSIS DIPSTICK Routine 11/27/2024 1:28 PM EDT Third trimester POCT URINALYSIS DIPSTICK Routine 10/30/2024 3:13 PM EDT Second trimester GLUCOSE 1 HOUR Routine 10/23/2024 2:18 PM EDT ALL CBC WITH AUTO DIFF Routine 2:18 PM EDT US OB 14+ WEEKS ANATOMY SCAN 10/09/2024 11:26 AM EST PAP SMEAR Routine 12/21/2022 12:00 AM EDT from Last 3 Months or Most Recently Relevant to Health Maintenance Results * US OB BPP W NON-STRESS (12/28/2024 10:16 AM EDT) Only the most recent of2 resultswithin the time period is included. Anatomical Region Laterality Modality Other 12/28/2024 10:1 6 AM EDT Narrative 12/28/2024 10:19 [place] [address] Ultrasound Report Signed Patient: JANNIE ANTONIO MR#: [id number] : 1985 Acct:[id number] Age/Sex: 39 / F ADM Date: 12/28/24 Loc: US Attending Dr: Norbert Vega D.O. Ordering Physician: Norbert Vega D.O. Date of Service: 12/28/24 Procedure(s): US OB BPP w non-stress Accession Number(s): [id number] cc: Norbert Vega D.O.; Darshan Watts M.D. [place] [id number] Patient Name: JANNIE ANTONIO MRN: [id number] date: 1985 Sex: F Assigned Patient Location: [facility] Current Patient Location: Accession/Order Number: [id number] Exam Date: 12/28/2024 10:13 Report Date: 12/28/2024 10:16 At the request of: NORBERT VEGA DO Procedure: US OB BPP w non-stress BIOPHYSICAL PROFILE: CLINICAL INFORMATION: Multigravida of advanced maternal age O09.523 COMPARISON: 12/21/2024 There is a single live intrauterine gestation in cephalic presentation. The reported gestational age is 32 weeks 5 days. The heart rate beats per minute. FINDINGS: TONE: 1 or more episodes of activity extension and flexion of extremity or opening and closing of the hand [Y] 2/2 GROSS BODY MOVEMENTS: 3 or more discrete body or limb movements [Y] 2/2 BREATHING MOVEMENTS: 1 or more episodes of breathing lasting at least 30 seconds [Y] 2/2 LILIANA: A single deepest vertical pocket of amniotic fluid greater than 2 cm [Y] 2/2 LILIANA: 9.8 cm This is in low-normal range (5th percentile 8.3 cm). Total score: 8/8 US/US OB BPP w non-stress IMPRESSION: NORMAL BIOPHYSICAL PROFILE. Impression dictated by: Lise Bolanos M.D. 12/28/2024 10:16 AM Dictation Location: [place] [address] Electronically authenticated by: [id number] Y Date: 12/28/2024 10:16 Dictated By: Lise Bolanos M.D. Signed By: 12/28/24 1019 DD/ 1016 TD/TT: Glass Blowing Instructor: Procedure Note Radiology, Radiologist, MD - 12/28/2024 [place] [address] Ultrasound Report Signed Patient: JANNIE ANTONIO RMR#: [id number] : 1985Acct:[id number] Age/Sex: 39 / FADM Date: 12/28/24 Loc: US Attending Dr: Norbert Vega D.O. Ordering Physician: Norbert Vega D.O. Date of Service: 12/28/24 Procedure(s): US OB BPP w non-stress Accession Number(s): [id number] cc: Norbert Vega D.O.; Darshan Watts M.D. [place] [address] Patient Name: JANNIE ANTONIO MRN: [facility]:[id number] date: 1985 Sex: F Assigned Patient Location: [facility] Current Patient Location: Accession/Order Number: [id number] Exam Date: 12/28/2024 10:13 Report Date: 12/28/2024 10:16 At the request of: NORBERT VEGA DO Procedure: US OB BPP w non-stress BIOPHYSICAL PROFILE: CLINICAL INFORMATION: Multigravida of advanced maternal age O09.523 COMPARISON: 12/21/2024 There is a single live intrauterine gestation in cephalic presentation.The reported gestational age is 32 weeks 5 days. The heart [id number] beats per minute. FINDINGS: TONE: 1 or more episodes of activity extension and flexion of extremity or opening and closing of the hand [Y] 2/2 GROSS BODY MOVEMENTS: 3 or more discrete body or limb movements [Y] 2/2 BREATHING MOVEMENTS: 1 or more episodes of breathing lastingat least 30 seconds [Y] 2/2 LILIANA: A single deepest vertical pocket of amniotic fluid greater than 2 cm [Y] 2/2 LILIANA: 9.8 cm This is in low-normal range (5th percentile 8.3 cm). Total score: 8/ US/US OB BPP w non-stress IMPRESSION: NORMAL BIOPHYSICAL PROFILE. Impression dictated by: Lise Bolanos M.D. 12/28/2024 10:16 AM Dictation Location: [place] [address] Electronically authenticated by: [id number] Y Date: 0:16 Dictated By: Lise Bolanos M.D. Signed By:12/28/24 1019 DD/ 1016 TD/TT: Glass Blowing Instructor: Norbert Silvia DO [facility] IM[facility] Final Result * POCT urinalysis dipstick manually resulted (12/26/2024 9:40 AM EDT) Only the most recent of4 resultswithin the time period is included. Color, UA Yellow Clarity, UA Clear Glucose, [...] - Positive Urine 12/26/2024 9:40 AM EDT Norbert Silvia DO POINT OF CARE TEST ENTER/EDIT OR DERABLES Final Result * US OB GROWTH (12/21/2024 11:41 AM EDT) Anatomical Region Laterality Modality Other 12/21/2024 11:4 1 AM EDT Narrative 12/21/2024 11:43 [place] [address] Ultrasound Report Signed Patient: JANNIE ANTONIO MR#: [id number] : 1985 Acct:[id number] Age/Sex: 39 / F ADM Date: 12/21/24 Loc: US Attending Dr: Norbert Vega D.O. Ordering Physician: Norbert Vega D.O. Date of Service: 12/21/24 Procedure(s): US OB growth Accession Number(s): [id number] cc: Norbert Vega D.O.; Darhsan Watts M.D. [place] [address] Patient Name: JANNIE ANTONIO MRN: [id number] date: 1985 Sex: F Assigned Patient Location: [facility] Current Patient Location: Accession/Order Number: [id number] Exam Date: 12/21/2024 11:39 Report Date: 12/21/2024 [...] Metzger M.D. 12/21/2024 11:41 AM Dictation Location: [place] [address] Electronically authenticated by: [id number] Y Date: 12/21/2024 11:41 Dictated By: Jonah Metzger M.D. Signed By: 12/21/24 1143 DD/ 1141 TD/TT: Glass Blowing Instructor: Procedure Note Radiology, Radiologist, - 12/21/2024 [place] [address] Ultrasound Report Signed Patient: JANNIE ANTONIO RMR#: [id number] : 1985Acct:[id number] Age/Sex: 39 / FADM Date: 12/21/24 Loc: US Attending Dr: Norbert Vega D.O. Ordering Physician: Norbert Vega D.O. Date of Service: 12/21/24 Procedure(s): US OB growth Accession Number(s): [id number] cc: Norbert Vega D.O.; Darshan Watts M.D. [place] [address] Patient Name: JANNIE ANTONIO MRN: [id number] date: 1985 Sex: F Assigned Patient Location: [facility] Current Patient Location: Accession/Order Number: [id number] Exam Date: 12/21/2024 11:39 Report Date: 12/21/2024 [...] Metzger M.D. 12/21/2024 11:41 AM Dictation Location: [facility] Electronically authenticated by: [id number] Y Date: 1:41 Dictated By: Jonah Metzger M.D. Signed By:12/21/24 1143 DD/ 1141 TD/TT: Glass Blowing Instructor: us Norbert Silvia DO [facility] Final Result * US OB follow up transabdominal approach (12/11/2024 8:18 AM EDT) Anatomical Region Laterality Modality Body Ultrasound 12/13/2024 8:41 AM EDT Narrative 12/13/2024 8:41 AM EDT EXAM: US OB FOLLOW UP TRANSABDOMINAL APPROACH HISTORY: AMA. DILCIA 02/17/2025. A4. x4. [...] age. Interpreted by: Electronically signed by TL FONG II, MD, PHD at 13-Dec-2024 08:39:30 AM [facility] Procedure Note Tl Fong MD - 12/13/2024 EXAM: US OB FOLLOW UP TRANSABDOMINAL APPROACH HISTORY: RUSSELL. DILCIA 02/17/2025. A4. x4. COMPARISON: NONE AVAILABLE. TECHNIQUE: Two-dimensional transabdominal grayscale ultrasound imaging ofthe pelvis was performed. FINDINGS: Gestation: Single Presentation: Cephalic Cardiac Activity: 164 beats per minute Placental Location: Posterior with no sonographic abnormalitiesidentified. Distance from Placental Tip to Cervix: Not [...] is 30 weeks 2 days (+/- 15 daysgestation). Estimated Weight: 1520 grams, +/- 228 grams ( 3 lb 6 oz). Weight Percentile for gestational age: 32 % IMPRESSION: 1. Single, live intrauterine gestation 30 weeks, 2 days by LMP. Today'sultrasound measurements correlate with a gestational age of 29 weeks 5days. Fetus is in the 32nd weight percentile for gestational age. Interpreted by: Electronically signed by TL FONG II, MD, PHD [id number] 08:39:30 AM [facility] us Norbert Silvia DO IMG OB US PROCEDURES Final Resul t * (ABNORMAL) TBH URINE MICROSCOPIC ONLY (12/09/2024 2:00 PM EDT) TBH WBC NONE SEEN NONE SEEN #/HPF TBH TBH RBC 75-100(A) 0 - 2 #/HPF TBH BACTERIA URINE SMALL(A) NONE SEEN #/HPF TBH MUCUS URINE MODERATE(A ) NONE SEEN TBH SQUAMOUS EPITHELIAL CELL URINE FEW(A) NONE/RARE #/LPF TBH CRYSTALS SEEN? None Seen None Seen #/HPF TBH CAST SEEN? NONE SEEN NONE SEEN #/LPF TBH URINE CULTURE INDICATED YES-LC TBH 12/09/2024 2:00 PM EDT 12/09/2024 3:05 PM EDT Narrative [facility] - 12/09/2024 3:18 PM EDT Norbert Silvia DO [facility] Final Result Performing Organization Address [facility]/ZIP Co de Phone Number [facility] * (ABNORMAL) TBH UA (CLEAN/CATCH) MICROSCOPIC IF INDICATE (12/09/2024 2:00 PM EDT) COLOR URINE YELLOW YELLOW TBH CLARITY URINE SL CLOUDY CLEAR TBH SPECIFIC GRAVITY URINE >=1.030(A) 1.005 - 1.025 TBH PH URINE 6.0 5.0 - 9.0 TBH PROTEIN URINE 100(A) NEG/TRACE mg/dL TBH GLUCOSE URINE UA NEGATIVE NEGATIVE mg/dL TBH BILIRUBIN URINE NEGATIVE NEGATIVE TBH KETONES URINE 15(A) NEGATIVE mg/dL TBH BLOOD URINE LARGE(A) NEGATIVE TBH NITRITE URINE NEGATIVE NEGATIVE TBH UROBILINOGEN URINE 1.0 0.2 - 1.0 EU/dL TBH LEUKOCYTE ESTERASE URINE NEGATIVE NEGATIVE TBH URINE MICROSCOPIC INDICATED YES TBH 12/09/2024 2:00 PM EDT 12/09/2024 3:05 PM EDT Narrative [facility] - 12/09/2024 3:18 PM EDT Norbert Silvia DO [facility] Final Result Performing Organization Address [facility]/ZIP Co de Phone Number [facility] TBH * TBH UA (CLEAN/CATCH) LOAN TELLER/MICRO IF IND. (11/30/2024 4:48 PM EDT) COLOR URINE LT. YELLOW YELLOW TBH CLARITY URINE CLEAR CLEAR TBH SPECIFIC GRAVITY URINE 1.010 1.005 - 1.025 TBH PH URINE 6.5 5.0 - 9.0 TBH PROTEIN URINE NEGATIVE NEG/TRACE mg/dL TBH GLUCOSE URINE UA NEGATIVE NEGATIVE mg/dL TBH BILIRUBIN URINE NEGATIVE NEGATIVE TBH KETONES URINE NEGATIVE NEGATIVE mg/dL TBH BLOOD URINE NEGATIVE NEGATIVE TBH NITRITE URINE NEGATIVE NEGATIVE TBH UROBILINOGEN URINE 0.2 0.2 - 1.0 EU/dL TBH LEUKOCYTE ESTERASE URINE NEGATIVE NEGATIVE TBH URINE MICROSCOPIC INDICATED NO TBH 11/30/2024 4:48 PM EDT 11/30/2024 5:28 PM EDT Narrative [facility] - 11/30/2024 5:56 PM EDT us Norbert Silvia DO [facility] Final Result Performing Organization Address [facility]/ZIP Co de Phone Number [facility] TB * GLUCOSE 1 HOUR (10/23/2024 2:18 PM EDT) GLUCOSE 1 HOUR 106 <130 mg/dL TBH 10/23/2024 2:18 PM EDT 10/23/2024 2:20 PM EDT Narrative [facility] - 10/23/2024 2:34 PM EDT Norbert Silvia DO LAB BLOOD ORDERABLES Final Resul t Performing Organization Address [facility] Co de Phone Number [facility] TB * (ABNORMAL) ALL CBC WITH AUTO DIFF (10/23/2024 2:18 PM EDT) Pathologist [facility] TB WBC 9.3 4.0 - 11.0 10 3/uL TBH TBH RBC 3.79(L) 4.20 - 5.40 10 6/uL TBH TBH HGB 10.2(L) 12.0 - 16.0 g/dL TBH TB HCT 31.8(L) 36.0 - 48.0 % TBH TBH MCV 83.9 81.0 - 99.0 fL TBH TBH MCH 26.9 26.7 - 34.0 pg TBH TBH MCHC 32.1 29.9 - 35.2 g/dL TBH TBH RDW 14.6 11.0 - 15.0 % TBH TBH PLT 202 150 - 450 10 3/uL TBH TBH MPV 11.0 9.5 - 13.5 fL TBH NEUTROPHILS PERCENT AUTO 77.6(H) 43.0 - 75.0 % TBH LYMPHOCYTES PERCENT AUTO 15.9(L) 20.5 - 60.0 % TBH MONOCYTES PERCENT AUTO 4.7 1.7 - 12.0 % TBH TBH EO % 1.2 0.9 - 7.0 % TBH BASOPHILS PERCENT AUTO 0.1(L) 0.2 - 2.0 % TBH IMMATURE GRANULOCYTES PCT AUTO 0.5 0.0 - 0.5 % TBH NEUTROPHILS ABSOLUTE AUTO 7.2(H) 1.4 - 6.5 10 3/uL TBH LYMPHOCYTES ABSOLUTE AUTO 1.5 1.2 - 3.8 10 3/uL TBH MONOCYTES ABSOLUTE AUTO 0.4 0.3 - 0.8 10 3/uL TBH TBH EO # 0.1 0.0 - 0.7 10 3/uL TBH BASOPHILS ABSOLUTE AUTO 0.0 0.0 - 0.1 10 3/uL TBH IMMATURE GRANULOCYTES ABS AUTO 0.05(H) 0.00 - 0.03 10 3/uL TBH 10/23/2024 2:18 PM EDT 10/23/2024 2:20 PM EDT Narrative [facility] - 10/23/2024 2:26 PM EDT us Norbert ESTRELLA Final Result [facility] TB * US OB 14+ weeks anatomy scan (10/09/2024 11:26 AM EST) Anatomical Region Laterality Modality Body Ultrasound 10/09/2024 11:2 6 AM EST Narrative 10/09/2024 11:26 AM EST [facility] NAME[facility] PACO ASHER : 1985 SEX: F Accession Number: [id number] ORDERING PHYSICIAN: GEN KANG REFERRING PHYSICIAN: NORBERT VEGA Coding ----- --------- Procedures 40782: Ultrasound, uterus, real time with image documentation, and maternal evaluation plus detailed anatomic examination, transabdominal approach;single or first gestation Indication ----- --------- Screening for Anatomic Survey, AMA- Supervision of elderly, Depression, Anxiety, Previous x4, Obesity in History ----- --------- OB History 9. Para 4 [id number] Current ----- --------- Cell free DNA Low Risk analysis Maternal Assessment ----- --------- Physical Exam Height 152 cm, 5 ft 0 in. Weight 73 kg, 161 lb. BMI 31.44 kg/m??? Method ----- --------- Transabdominal ultrasound examination. *Patient declined transvaginal ultrasound to determine cervical length. View: Suboptimal view: limited by maternal body habitus. Suboptimal view: limited by position ----- --------- Zhao . Number of fetuses: 1 Dating ----- --------- LMP on: 05/13/2024 GA by LMP 21 w + 2 d DILCIA by LMP: 02/17/2025 Ultrasound examination on: 10/09/2024 GA by U/S based upon: AC, BPD, Femur, HC GA by U/S 20 w + 5 d DILCIA by U/S: 02/21/2025 Assigned: based on the LMP, selected on 10/09/2024 Assigned GA 21 w + 2 d Assigned DILCIA: 02/17/2025 General Evaluation ----- --------- Cardiac activity Present. FHR 141 bpm. Presentation: cephalic Placenta: Placental site: posterior Umbilical cord: Cord vessels: 3 vessel cord. Insertion site: normal insertion Amniotic fluid: Amount of AF: normal amount Biometry ----- --------- BPD 46.1 mm 20w 0d 7% Hadlock OFD 64.6 mm 21w 6d 72% Juan Manuel HC 177.5 mm 20w 2d 6% Hadlock Cerebellum tr 22.1 mm 20w 5d 45% Hill Nuchal fold 5.7 mm AC 161.5 mm 21w 2d 41% Hadlock Femur 35.6 mm 21w 2d 40% Hadlock Humerus 33.5 mm 21w 3d 49% Juan Manuel HC / AC 1.10 Weight Calculation: EFW 399 g 34% Hadlock EFW (lb,oz) 0 lb 14 oz EFW by Hadlock ([id number]) Head / Face / Neck Biometry: Cephalic index 0.71 1% Nicolaides Balance Wheel Screw Hole Driller 4.9 mm CM 3.9 mm 11% Nicolaides Nasal bone 6.9 mm Extremities / Bony Struc Biometry: FL / BPD 0.77 FL / HC 0.20 FL / AC 0.22 Tibia 30.7 mm 21w 2d 52% Juan Manuel Anatomy ----- --------- The following structures appear normal: Head/Neck: Cranium. Lateral ventricles. Choroid plexus. Midline falx. Cavum septi pellucidi. Cerebellum. Cisterna magna. Parenchyma. Vermis. Neck. Nuchal fold. Face: Lips. Profile. Nose. Nasal bone. Maxilla. Heart/Thorax: LVOT view. 3-vessel view. Situs. Cardiac position. Cardiac axis. Cardiac size. Cardiac rhythm. Abdomen: Abdom. wall. Cord insertion. Stomach. Kidneys. Bladder. Small bowel. Large bowel. Right renal artery. Left renal artery. Genitals. Extremities/Skeleton: Right upper arm. Right forearm. Right hand. Left upper arm. Left forearm. Left hand. Right upper leg. Right lower leg. Left upper leg. Left lower leg. The following structures could not be adequately visualized: Heart / Thorax 5-yujxxw-clqbkez view. Bicaval view. Right lung. Left lung. Diaphragm. Spine: Cervical spine. Thoracic spine. Lumbar spine. Sacral spine. The following structures could not be examined: Face Mandible. Orbits. Heart / Thorax 4-chamber view. RVOT view. Aortic arch view. Ductal arch view. Interventricular septum. Great vessels. Extremities / Right foot. Left foot. Skeleton Maternal Structures ----- --------- Uterus Visualized Cervix Visualized Approach - Transabdominal Right Ovary Visualized Size 23 mm x 12 mm x 9 mm. Vol 1.3 cm??? Left Ovary Visualized Size 20 mm x 15 mm x 10 mm. Vol 1.6 cm??? Cul de Sac Visualized. No free fluid visualized Impression ----- --------- Single viable intrauterine consistent with 21w 2d with an DILCIA of 02/17/2025. No adnexal masses visualized on today's exam. Recommendations ----- --------- Please see M documentation from today. The patient is scheduled in four week(s) to complete anatomic survey. Subsequent follow up or other follow up as clinically determined by primary OB provider unless otherwise specified by [facility]. Results forwarded to ordering provider so they can follow up with the patient as necessary. The copy-to physician of this order is NORBERT Spencer The ordering physician of this order is GEN Grady Procedure Note Radiology, Radiologist, MD - 10/09/2024 [facility] NAME[facility] PACO ASHER : 1985 SEX: F Accession Number: [id number] ORDERING PHYSICIAN: GEN KANG REFERRING PHYSICIAN: NORBERT VEGA Coding ----- --------- Procedures 74076: Ultrasound, uterus, real time with imagedocumentation, and maternal evaluation plus detailed anatomic examination, transabdominalapproach;single or first gestation Indication ----- --------- Screening for Anatomic Survey, AMA- Supervision of elderly, Depression,Anxiety, Previous x4, Obesity in History ----- --------- OB History 9. Para 4 [id number] Current ----- --------- Cell free DNA Low Risk analysis Maternal Assessment ----- --------- Physical Exam Height 152 cm, 5 ft 0 in. Weight 73 kg, 161 lb. BMI 31.44kg/m??? Method ----- --------- Transabdominal ultrasound examination. *Patient declined transvaginal ultrasound to determine cervical length.View: Suboptimal view: limited by maternal body habitus. Suboptimal view: limited by position ----- --------- Zhao . Number of fetuses: 1 Dating ----- --------- LMP on: 05/13/2024 GA by LMP 21 w + 2 d DILCIA by LMP: 02/17/2025 Ultrasound examination on: 10/09/2024 GA by U/S based upon: AC, BPD, Femur, HC GA by U/S 20 w + 5 d DILCIA by U/S: 02/21/2025 Assigned: based on the LMP, selected on 10/09/2024 Assigned GA 21 w + 2 d Assigned DILCIA: 02/17/2025 General Evaluation ----- --------- Cardiac activity Present. FHR 141 bpm. Presentation: cephalic Placenta: Placental site: posterior Umbilical cord: Cord vessels: 3 vessel cord. Insertion site: normalinsertion Amniotic fluid: Amount of AF: normal amount Biometry ----- --------- BPD 46.1 mm 20w 0d 7% Hadlock OFD 64.6 mm 21w 6d 72% Juan Manuel HC 177.5 mm 20w 2d 6% Hadlock Cerebellum tr 22.1 mm 20w 5d 45% Hill Nuchal fold 5.7 mm AC 161.5 mm 21w 2d 41% Hadlock Femur 35.6 mm 21w 2d 40% Hadlock Humerus 33.5 mm 21w 3d 49% Juan Manuel HC / AC 1.10 Weight Calculation: EFW 399 g 34% Hadlock EFW (lb,oz) 0 lb 14 oz EFW by Hadlock ([id number]) Head / Face / Neck Biometry: Cephalic index 0.71 1% Nicolaides Balance Wheel Screw Hole Driller 4.9 mm CM 3.9 mm 11% Nicolaides Nasal bone 6.9 mm Extremities / Bony Struc Biometry: FL / BPD 0.77 FL / HC 0.20 FL / AC 0.22 Tibia 30.7 mm 21w 2d 52% Juan Manuel Anatomy ----- --------- The following structures appear normal: Head/Neck: Cranium. Lateral ventricles. Choroid plexus. Midline falx.Cavum septi pellucidi. Cerebellum. Cisterna magna. Parenchyma. Vermis. Neck. Nuchal fold. Face: Lips. Profile. Nose. Nasal bone. Maxilla. Heart/Thorax: LVOT view. 3-vessel view. Situs. Cardiac position. Cardiacaxis. Cardiac size. Cardiac rhythm. Abdomen: Abdom. wall. Cord insertion. Stomach. Kidneys. Bladder. Smallbowel. Large bowel. Right renal artery. Left renal artery. Genitals. Extremities/Skeleton: Right upper arm. Right forearm. Right hand. Leftupper arm. Left forearm. Left hand. Right upper leg. Right lower leg. Left upper leg. Left lower leg. The following structures could not be adequately visualized: Heart / Thorax 5-zdysus-szmuxjc view. Bicaval view. Right lung. Left lung. Diaphragm. Spine: Cervical spine. Thoracic spine. Lumbar spine. Sacral spine. The following structures could not be examined: Face Mandible. Orbits. Heart / Thorax 4-chamber view. RVOT view. Aortic arch view. Ductal archview. Interventricular septum. Great vessels. Extremities / Right foot. Left foot. Skeleton Maternal Structures ----- --------- Uterus Visualized Cervix Visualized Approach - Transabdominal Right Ovary Visualized Size 23 mm x 12 mm x 9 mm. Vol 1.3 cm??? Left Ovary Visualized Size 20 mm x 15 mm x 10 mm. Vol 1.6 cm??? Cul de Sac Visualized. No free fluid visualized Impression ----- --------- Single viable intrauterine consistent with 21w 2d with an DILCIA of02/17/2025. No adnexal masses visualized on today's exam. Recommendations ----- --------- Please see [facility] documentation from today. The patient is scheduled in four week(s) to complete anatomic survey. Subsequent follow up or other follow up as clinically determined byprimary OB provider unless otherwise specified by [facility]. Results forwarded to ordering provider so they can follow up with thepatient as necessary. The copy-to physician of this order is NORBERT Spencer The ordering physician of this order is GEN Grady us Norbert Vega DO IMG OB US PROCEDURES Final Resul t * Pap Smear (12/21/2022 12:00 AM EDT) Swab Cervical swab / Unknown us Norbert Vega DO LAB CYTOLOGY ORDERABLES Final Re sult EXTERNAL LAB from Last 3 Months or Most Recently Relevant to Health Maintenance Insurance [employer] MEDICAID [place] Care Teams Career And Guidance Counselor Relationship Specialty Start Date End Date Darshan Watts MD [address] [place] [phone] PCP - General Family Medicine 12/28/22
--- OUTSIDE RECORDS SUMMARY | 2025-01-04 10:53 | XMS_ITS | Encounter Summary ---
Author Organization [facility] Address [address] [place] [address] Care Team Providers Care Business Mail Entry Clerk Name Role Phone Darshan Watts MD Primary Care Provider [phone] Encounter Details Date Type Department Care Team (Late st Contact Info) Description 12/11/2024 Abstract [facility] [address] [place] [address] Kannan Vega, DO [address] [place] [address] Parris [place], [facility]11 Social History Tobacco Use Types Packs/Day Years [...] Description 01/08/2025 10:00 AM EDT Routine [facility] [address] [place] [address] Kannan Vega, DO [facility] [place], [facility]11 documented as of this encounter Visit Diagnoses Not on filedocumented in this encounter Care Teams Business Mail Entry Clerk Relationship Specialty Start Date End Date Darshan Watts MD [address] [place] [phone] PCP - General Family Medicine 12/28/22 documented as of this encounter
--- OUTSIDE RECORDS SUMMARY | 2025-01-04 10:53 | XMS_ITS | Encounter Summary ---
Author Organization [facility] Address [address] [place] [address] Care Team Providers Care Forestry Workers Name Role Phone Darshan Watts MD Primary Care Provider [phone] Encounter Details Date Type Department Care Team (Late st Contact Info) Description 12/21/2024 Clinisync Result Encounter [facility] External Department Unsolicited Norbert Vega, DO [address] [place], [place] [id number] Social History Tobacco Use Types Packs/Day Years [...] Routine [facility] [address] [place] [phone] Norbert Vega DO [address] [place] [address] documented as of this encounter Procedures Procedure Name Priority Date/Time Associated Diagnosis Comments US OB BPP W NON-STRESS 12/21/2024 11:39 AM EDT documented in this encounter Results * US OB BPP W NON-STRESS (12/21/2024 11:39 AM EDT) Anatomical Region Laterality Modality Other 12/21/2024 11:3 9 AM EDT Narrative 12/21/2024 11:41 [place] [address] Ultrasound Report Signed Patient: LB SANON MR#: [id number] : 1985 Acct:[id number] Age/Sex: 39 / F ADM Date: 12/21/24 Loc: US Attending Dr: Norbert Vega D.O. Ordering Physician: Norbert Vega D.O. Date of Service: 12/21/24 Procedure(s): US OB BPP w non-stress Accession Number(s): [id number] cc: Norbert Vega D.O.; Darshan Watts M.D. [facility] [place] [id number] Patient Name: LB SANON MRN: [id number] date: 1985 Sex: F Assigned Patient Location: [facility] Current Patient Location: Accession/Order Number: [id number] Exam Date: 12/21/2024 11:37 Report Date: 12/21/2024 11:39 At the request of: NORBERT VEGA DO Procedure: US OB BPP w non-stress US OB BPP w non-stress 12/21/2024 9:57 AM SIGNS AND SYMPTOMS: MULTIGRAVIDA OF ADVANCED MATERNAL AGE O09.523 COMPARISON: None. TECHNIQUE: Limited pelvic ultrasound using transvesical sonography. FINDINGS: An intrauterine is identified. The visualized fetus has an estimated gestational age of 212 days. A heart rate is identified at 157 bpm. A normal amount of amniotic fluid is present. Amniotic fluid index is 12.77 cm There is no evidence for placenta previa or subchorionic hemorrhage. Pelvic survey reveals no gross abnormalities. US/US OB BPP w non-stress IMPRESSION: Single live IUP with an estimated gestational age of 212 days and normal heart rate. Impression dictated by: Jonah Metzger M.D. 12/21/2024 11:39 AM Dictation Location: [place] [address] Electronically authenticated by: [id number] Y Date: 12/21/2024 11:39 Dictated By: Jonah Metzger M.D. Signed By: 12/21/24 1141 DD/ 1139 TD/TT: Ground Support Agent: Procedure Note Radiology, Radiologist, MD - 12/21/2024 [place] [address] Ultrasound Report Signed Patient: LB SANON RMR#: [id number] : 1985Acct:[id number] Age/Sex: 39 / FADM Date: 12/21/24 Loc: US Attending Dr: Norbert Vega D.O. Ordering Physician: Norbert Vega D.O. Date of Service: 12/21/24 Procedure(s): US OB BPP w non-stress Accession Number(s): [id number] cc: Norbert Vega D.O.; Darshan Watts M.D. [facility] [place] [address] Patient Name: LB SANON MRN: [facility]:[id number] date: 1985 Sex: F Assigned Patient Location: [facility] Current Patient Location: Accession/Order Number: [id number] Exam Date: 12/21/2024 11:37 Report Date: 12/21/2024 11:39 At the request of: NORBERT VEGA DO Procedure: US OB BPP w non-stress US OB BPP w non-stress 12/21/2024 9:57 AM SIGNS AND SYMPTOMS: MULTIGRAVIDA OF ADVANCED MATERNAL AGE O09.523 COMPARISON: None. TECHNIQUE: Limited pelvic ultrasound using transvesical sonography. FINDINGS: An intrauterine is identified. The visualized fetus has an estimated gestational age of 212 days. A heart rate is identified at 157bpm. A normal amount of amniotic fluid is present. Amniotic fluid index is12.77 cm There is no evidence for placenta previa or subchorionic hemorrhage. Pelvic survey reveals no gross abnormalities. US/US OB BPP w non-stress IMPRESSION: Single live IUP with an estimated gestational age of 212 days and normalheart rate. Impression dictated by: Jonah Metzger M.D. 12/21/2024 11:39 AM Dictation Location: [facility] Electronically authenticated by: [id number] Y Date: 1:39 Dictated By: Jonah Metzger M.D. Signed By:12/21/24 1141 DD/ 1139 TD/TT: Ground Support Agent: us Norbert Silvia DO [facility] Final Result documented in this encounter Visit Diagnoses Not on filedocumented in this encounter Care Teams Forestry Workers Relationship Specialty Start Date End Date Darshan Watts MD [address] [place] [address] PCP - General Family Medicine 12/28/22 documented as of this encounter
--- OUTSIDE RECORDS SUMMARY | 2025-01-04 10:53 | XMS_ITS | Patient Health Record ---
Author Organization The [facility] in [place] Address [address] [place] [address] Care Team Providers Care Animal Pathology Teacher Name Role Phone Emeka Bell Primary Care Provider QUOC BELL Unavailable [phone] Allergies Allergen (clinical drug ingredient) Drug/Non Drug Allergy documented on EMR Reaction Allergy Type Onset Date Status sulfamethoxazole / trimethoprim Bactrim hives Drug Allergy Active cefaclor Cefaclor anaphylaxis Drug Allergy Activ e Penicillin anaphylaxis Drug Allergy Acti ve Results Component Value Reference Range Notes Progesterone Reviewed date:01/16/2024 10:11:22 PM Interpretation: Performing Lab: Notes/Report: [facility] , Progesterone 5.6 . ng/mL Follicular phase 0.1 - 0.9 Luteal phase 1.8 - 23.9 Ovulation phase 0.1 - 12.0 First trimester 11.0 - 44.3 Second trimester 25.4 - 83.3 Third trimester 58.7 - 214.0 Postmenopausal 0.0 - 0.1 Performed at: [facility] [address] [id number] Financial Operations Consultant: Blaise Thompson PhD, Phone: [phone] Performing Lab: see note - [facility] LB Progesterone Reviewed date:03/16/2024 12:59:10 PM Interpretation: Performing Lab: Notes/Report: [facility] , Progesterone 11.8 . ng/mL Follicular phase 0.1 - 0.9 Luteal phase 1.8 - 23.9 Ovulation phase 0.1 - 12.0 First trimester 11.0 - 44.3 Second trimester 25.4 - 83.3 Third trimester 58.7 - 214.0 Postmenopausal 0.0 - 0.1 Performed at: - [facility] [address] [id number] Financial Operations Consultant: Blaise Thompson PhD, Phone: [phone] Performing Lab: see note - [facility] LB Glucose 1 Hour Reviewed date:10/23/2024 08:04:33 PM Interpretation: Performing Lab: Notes/Report: [facility] , Glucose 1 Hour 106 <130 mg/dL Performing Lab: see note ML - [facility] LB URINE MICROSCOPIC ONLY Reviewed date:12/09/2024 05:07:16 PM Interpretation: Performing Lab: Notes/Report: [facility] , WBC Urine NONE SEEN NONE SEEN #/HPF RBC Urine 75-100 0-2 #/HPF Bacteria Urine SMALL NONE SEEN #/HPF Mucus Urine MODERATE NONE SEEN Squamous Epithelial Cell Urine FEW NONE/RARE #/LPF Crystals Seen? None Seen None Seen #/HPF Cast Seen? NONE SEEN NONE SEEN #/LPF Urine Culture Indicated YES- Performing Lab: see note ML - [facility] US OB BPP w non-stress Reviewed date:12/26/2024 06:06:43 PM Interpretation: Performing Lab: Notes/Report: Source Facility: [place] [address] [place] [address] Ultrasound Report Signed with Alexandraenda Patient: JANNIE SANON MR#: [id number] : 1985 Acct:[id number] Age/Sex: 39 / F ADM Date: 12/21/24 Loc: US Attending Dr: Norbert Vega D.O. Ordering Physician: Norbert Vega D.O. Date of Service: 12/21/24 Procedure(s): US OB BPP w non-stress Accession Number(s): [id number] cc: Norbert Vega D.O.; Quoc Bell M.D. ADDENDUM The [place] [address] This is an addendum FINDINGS: An intrauterine is identified. The visualized fetus has an estimated gestational age of 30 weeks and 2 days. A heart rate is identified at 157 bpm. A normal amount of amniotic fluid is present. Amniotic fluid index is 12.77 cm There is no evidence for placenta previa or subchorionic hemorrhage. Pelvic survey reveals no gross abnormalities. Addendum Dictated By: Jonah Metzger M.D. Addendum Signed By: 12/26/24 003 Addendum Cosigned By: DD/ TD/TT: / ADDENDUM US/US OB BPP w non-stress IMPRESSION: Single live IUP with an estimated gestational age of 30 weeks and 2 days and normal heart rate. Impression dictated by: Jonah Metzger M.D. 12/26/2024 10:00 AM Dictation [facility] Electronically authenticated by: [id number] Y Date: 12/26/2024 10:00 Name: JANNIE SANON MRN: [id number] date: 1985 Sex: F Assigned Patient Location: [facility] Current Patient Location: Accession/Order Number: [id number] Exam Date: 12/26/2024 09:57 Report Date: 12/26/2024 10:00 At the request of: NORBERT VEGA DO Procedure: US OB BPP w non-stress [place] [id number] Patient Name: JANNIE SANON MRN: [id number] date: 1985 Sex: F Assigned Patient Location: [facility] Current Patient Location: Accession/Order Number: [id number] Exam Date: 12/21/2024 11:37 Report Date: 12/21/2024 [...] hemorrhage. Pelvic survey reveals no gross abnormalities. IMPRESSION: Single live IUP with an estimated gestational age of 212 days and normal heart rate. Impression dictated by: Jonah Metzger M.D. 12/21/2024 11:39 AM Dictation Location: [facility] Electronically authenticated by: [id number] Y Date: 12/21/2024 11:39 Addendum Dictated By: Jonah Metzger M.D. Addendum Signed By: 12/26/24 003 Addendum Cosigned By: DD/ TD/TT: / [place] [id number] Patient Name: JANNIE SANON MRN: [id number] date: 1985 Sex: F Assigned Patient Location: [facility] Current Patient Location: Accession/Order Number: [id number] Exam Date: 12/21/2024 11:37 Report Date: 12/21/2024 [...] Metzger M.D. 12/21/2024 11:39 AM Dictation Location: [facility] Electronically authenticated by: [id number] Y Date: 12/21/2024 11:39 Dictated By: Jonah Metzger M.D. Signed By: 12/21/24 1141 DD/ 1139 TD/TT: Pastoral Worker: [place] [address] Ultrasound Report Signed with Addenda Patient: JANNIE SANON MR#: [id number] : 1985 Acct:[id number] Age/Sex: 39 / F ADM Date: 12/21/24 Loc: US Attending Dr: Norbert Vega D.O. Ordering Physician: Norbert Vega D.O. Date of Service: 12/21/24 Procedure(s): US OB BPP w non-stress Accession Number(s): [id number] cc: Norbert Vega D.O. ; Quoc Bell M.D. ADDENDUM The [place] [address] This is an addendum FINDINGS: An intrauterine is identified. The visualized fetus has an estimated gestationa l age of 30 weeks and 2 days. A heart rate is identified at 157 bpm. A normal amount of amniotic fluid is present. Amniotic fluid index is 12.77 cm There is no evidence for placenta previa or subchorionic hemorrhage. Pelvic survey reveal s no gross abnormalities. Addendum Dictated By : Jonah Metzger M.D. Addendum Signed By: 12/26/24 1 003 Addendum Cosigned By: DD/ TD/TT: / ADDENDUM US/US OB BPP w non-stress IMPRESSION: Single live IUP with an estimated gestational age of 30 weeks and 2 days and normal heart rate. Impression dictated by: Jonah Metzger M.D. 12/26/2024 10:00 AM Dictation Location: [place] [address] Patient Electronically authenticated by: [id number] Y Date: 12/26/2024 10:00 Name: JANNIE SANON MRN: [id number] date: 1985 Sex: F Assigned Patient Location: [facility] Current Patient Location: Accession/Order Number: [id number] Exam Date: 12/26/2024 09:57 Report Date: 12/26/2024 10:00 At the request of: NORBERT VEGA DO Procedure: US OB BPP w non-stress [address] [address] Patient Name: JANNIE SANON MRN: [id number] date: 1985 Sex: F Assigned Patient Location: [facility] Current Patient Location: Accession/Order Number: [id number] Exam Date: 12/21/2024 11:37 Report Date: 12/21/2024 11:39 At the request of: NORBERT VEGA DO Procedure: US OB fet al BPP w non-stress US OB BPP w non-stress 12/21/2024 9:57 AM SIGNS AND SYMPTOMS: MULTIGRAVIDA OF ADVANCED MATERNAL AGE O09.523 COMPARISON: None. TECHNIQUE: Limited pelvic ultrasound using transvesical sonography. FINDINGS: An intrauterine is identified. The visualized fetus has an estimated gestationa l age of 212 days. A heart rate is identified at 157 bpm. A normal amount of amniotic fluid is present. Amniotic fluid index is 12.77 cm There is no evidence for placenta previa or subchorionic hemorrhage. Pelvic survey reveal s no gross abnormalities. IMPRESSION: Single live IUP with an estimated gestational age of 212 days and normal heart rate. Impression dictated by: Jonah Metzger M.D. 12/21/2024 11:39 AM Dictation Location: [place] [address] Electronically authenticated by: [id number] Y Date: 12/21/2024 11:39 Addendum Dictated By : Jonah Metzger M.D. Addendum Signed By: 12/26/24 003 Addendum Cosigned By: DD/ TD/TT: / [place] [id number] Patient Name: JANNIE SANON MRN: [id number] date: 1985 Sex: F Assigned Patient Location: [facility] Current Patient Location: Accession/Order Number: [id number] Exam Date: 12/21/2024 11:37 Report Date: 12/21/2024 11:39 At the request of: NORBERT VEGA DO Procedure: US OB fet al BPP w non-stress US OB BPP w non-stress 12/21/2024 9:57 AM SIGNS AND SYMPTOMS: MULTIGRAVIDA OF ADVANCED MATERNAL AGE O09.523 COMPARISON: None. TECHNIQUE: Limited pelvic ultrasound using transvesical sonography. FINDINGS: An intrauterine is identified. The visualized fetus has an estimated gestationa l age of 212 days. A heart rate is identified at 157 bpm. A normal amount of amniotic fluid is present. Amniotic fluid index is 12.77 cm There is no evidence for placenta previa or subchorionic hemorrhage. Pelvic survey reveal s no gross abnormalities. US/US OB BPP w non-stress IMPRESSION: Single live IUP with an estimated gestational age of 212 days and normal heart rate. Impression dictated by: Jonah Metzger M.D. 12/21/2024 11:39 AM Dictation Location: [place] [address] Electronically authenticated by: [id number] Y Date: 12/21/2024 11:39 Dictated By: Jonah Metzger M.D. Signed By: 12/21/24 1141 DD/ 1139 TD/TT: Pastoral Worker: US OB growth Reviewed date:12/26/2024 06:06:43 PM Interpretation: Performing Lab: Notes/Report: Source Facility: [place] [address] [place] [address] Ultrasound Report Signed with Addenda Patient: JANNIE SANON MR#: [id number] : 1985 Acct:[id number] Age/Sex: 39 / F ADM Date: 12/21/24 Loc: US Attending Dr: Norbert Vega D.O. Ordering Physician: Norbert Vega D.O. Date of Service: 12/21/24 Procedure(s): US OB growth Accession Number(s): [id number] cc: Norbert Vega D.O.; Quoc Bell M.D. ADDENDUM The [place] [address] This is an addendum FINDINGS: An intrauterine is identified. The fetus has an estimated gestational age of 30 weeks and 2 days. A heart rate is identified at 157 bpm. A normal amount of amniotic fluid is present. The amniotic fluid index is 12.77 cm There is no evidence for placenta previa or subchorionic hemorrhage. Pelvic survey reveals no gross abnormalities. Addendum Dictated By: Jonah Metzger M.D. Addendum Signed By: 12/26/24 002 Addendum Cosigned By: DD/ TD/TT: / ADDENDUM US/US OB growth IMPRESSION: Single live IUP with an estimated gestational age of 30 weeks and 2 days and normal heart rate. Impression dictated by: Jonah Metgzer M.D. 12/26/2024 9:59 AM Dictation Location: [place] [address] Patient Electronically authenticated by: [id number] Y Date: 12/26/2024 09:59 Name: JANNIE SANON MRN: [id number] date: 1985 Sex: F Assigned Patient Location: [facility] Current Patient Location: Accession/Order Number: [id number] Exam Date: 12/26/2024 09:59 Report Date: 12/26/2024 09:59 At the request of: NORBERT VEGA DO Procedure: US OB growth [place] [address] Patient Name: JANNIE SANON MRN: [id number] date: 1985 Sex: F Assigned Patient Location: [facility] Current Patient Location: Accession/Order Number: [id number] Exam Date: 12/21/2024 11:39 Report Date: 12/21/2024 [...] hemorrhage. Pelvic survey reveals no gross abnormalities. IMPRESSION: Single live IUP with an estimated gestational age of 212 days and normal heart rate. Impression dictated by: Jonah Metzger M.D. 12/21/2024 11:41 AM Dictation Location: [facility] Electronically authenticated by: [id number] Y Date: 12/21/2024 11:41 Addendum Dictated By: Jonah Metzger M.D. Addendum Signed By: 12/26/24 1 002 Addendum Cosigned By: DD/ TD/TT: / [place] [id number] Patient Name: JANNIE SANON MRN: [id number] date: 1985 Sex: F Assigned Patient Location: [facility] Current Patient Location: Accession/Order Number: [id number] Exam Date: 12/21/2024 11:39 Report Date: 12/21/2024 [...] Metzger M.D. 12/21/2024 11:41 AM Dictation Location: [place] Electronically authenticated by: [id number] Y Date: 12/21/2024 11:41 Dictated By: Jonah Metzger M.D. Signed By: 12/21/24 1143 DD/ 1141 TD/TT: Pastoral Worker: [place] [address] Ultrasound Report Signed with Addenda Patient: JANNIE SANON MR#: [id number] : 1985 Acct:[id number] Age/Sex: 39 / F ADM Date: 12/21/24 Loc: US Attending Dr: Norbert Vega D.O. Ordering Physician: Norbert Vega D.O. Date of Service: 12/21/24 Procedure(s): US OB growth Accession Number(s): [id number] cc: Norbert Vega D.O. ; Quoc Bell M.D. ADDENDUM The [place] [id number] This is an addendum FINDINGS: An intrauterine is identified. The fetus has an estimated gestational age of 3 0 weeks and 2 days. A heart rate is identified at 157 bpm. A normal amount of amniotic fluid is present. The amniotic fluid index is 12.77 cm There is no evidence for placenta previa or subchorionic hemorrhage. Pelvic survey reveal s no gross abnormalities. Addendum Dictated By : Jonah Metzger M.D. Addendum Signed By: 12/26/24 1 002 Addendum Cosigned By: DD/ TD/TT: / ADDENDUM US/US OB growth IMPRESSION: Single live IUP with an estimated gestational age of 30 weeks and 2 days and normal heart rate. Impression dictated by: Jonah Metzger M.D. 12/26/2024 9:59 AM Dictation Location: [place] [address] Patient Electronically authenticated by: [id number] Y Date: 12/26/2024 09:59 Name: JANNIE SANON MRN: [id number] date: 1985 Sex: F Assigned Patient Location: [facility] Current Patient Location: Accession/Order Number: [id number] Exam Date: 12/26/2024 09:59 Report Date: 12/26/2024 09:59 At the request of: NORBERT VEGA DO Procedure: US OB growth The [address] [id number] Patient Name: JANNIE SANON MRN: [id number] date: 1985 Sex: F Assigned Patient Location: [facility] Current Patient Location: Accession/Order Number: [id number] Exam Date: 12/21/2024 11:39 Report Date: 12/21/2024 11:41 At the request of: NORBERT VEGA DO Procedure: US OB growth US OB growth 12/22/19 9:57 AM SIGNS AND SYMPTOMS: MULTIGRAVIDA OF ADVANCED MATERNAL AGE O09.523 COMPARISON: None. TECHNIQUE: Limited pelvic ultrasound using transvesical sonography. FINDINGS: An intrauterine is identified. The fetus has an estimated gestational age of 2 12 days. A heart rate is identified at 157 bpm. A normal amount of amniotic fluid is present. The amniotic fluid index is 12.77 cm There is no evidence for placenta previa or subchorionic hemorrhage. Pelvic survey reveal s no gross abnormalities. IMPRESSION: Single live IUP with an estimated gestational age of 212 days and normal heart rate. Impression dictated by: Jonah Metzger M.D. 12/21/2024 11:41 AM Dictation Location: [place] [address] Electronically authenticated by: [id number] Y Date: 12/21/2024 11:41 Addendum Dictated By : Jonah Metzger M.D. Addendum Signed By: 12/26/24 Addendum Cosigned By: DD/ TD/TT: / The [place] [id number] Patient Name: JANNIE SANON MRN: [id number] date: 1985 Sex: F Assigned Patient Location: [facility] Current Patient Location: Accession/Order Number: [id number] Exam Date: 12/21/2024 11:39 Report Date: 12/21/2024 11:41 At the request of: NORBERT VEGA DO Procedure: US OB growth US OB growth 12/22/19 9:57 AM SIGNS AND SYMPTOMS: MULTIGRAVIDA OF ADVANCED MATERNAL AGE O09.523 COMPARISON: None. TECHNIQUE: Limited pelvic ultrasound using transvesical sonography. FINDINGS: An intrauterine is identified. The fetus has an estimated gestational age of 2 12 days. A heart rate is identified at 157 bpm. A normal amount of amniotic fluid is present. The amniotic fluid index is 12.77 cm There is no evidence for placenta previa or subchorionic hemorrhage. Pelvic survey reveal s no gross abnormalities. US/US OB growth IMPRESSION: Single live IUP with an estimated gestational age of 212 days and normal heart rate. Impression dictated by: Jonah Metzger M.D. 12/21/2024 11:41 AM Dictation Location: [employer] Electronically authenticated by: [id number] Y Date: 12/21/2024 11:41 Dictated By: Jonah Metzger M.D. Signed By: 12/21/24 1143 DD/ 1141 TD/TT: Pastoral Worker: US OB BPP w non-stress Reviewed date:12/28/2024 12:36:02 PM Interpretation: Performing Lab: Notes/Report: Source Facility: [place] [address] Ultrasound Report Signed Patient: JANNIE SANON MR#: [id number] : 1985 Acct:[id number] Age/Sex: 39 / F ADM Date: 12/28/24 Loc: US Attending Dr: Norbert Vega D.O. Ordering Physician: Norbert Vega D.O. Date of Service: 12/28/24 Procedure(s): US OB BPP w non-stress Accession Number(s): [id number] cc: Norbert Vega D.O.; Quoc Bell M.D. [place] [address] Patient Name: JANNIE SANON MRN: [id number] date: 1985 Sex: F Assigned Patient Location: [facility] Current Patient Location: Accession/Order Number: [id number] Exam Date: 12/28/2024 10:13 Report Date: 12/28/2024 10:16 At the request of: NORBERT VEGA DO Procedure: US OB BPP w non-stress BIOPHYSICAL PROFILE: CLINICAL INFORMATION: Multigravida of advanced maternal age O09.523 COMPARISON: 12/21/2024 There is a single live intrauterine gestation in cephalic presentation. The reported gestational age is 32 weeks 5 days. The heart rate [id number] beats per minute. FINDINGS: TONE: 1 or [...] Bolanos M.D. 12/28/2024 10:16 AM Dictation Location: [place] [address] Electronically authenticated by: [id number] Y Date: 12/28/2024 10:16 Dictated By: Lise Bolanos M.D. Signed By: 12/28/24 1019 DD/ 1016 TD/TT: Pastoral Worker: The [address] [address] Ultrasound Report Signed Patient: JANNIE SANON MR#: [id number] : 1985 Acct:[id number] Age/Sex: 39 / F ADM Date: 12/28/24 Loc: US Attending Dr: Norbert Vega D.O. Ordering Physician: Norbert Vega D.O. Date of Service: 12/28/24 Procedure(s): US OB BPP w non-stress Accession Number(s): [id number] cc: Norbert Vega D.O. ; Quoc Bell M.D. The [address] [place] [id number] Patient Name: JANNIE SANON MRN: [facility]:[id number] date: 1985 Sex: F Assigned Patient Location: [facility] Current Patient Location: Accession/Order Number: [id number] Exam Date: 12/28/2024 10:13 Report Date: 12/28/2024 10:16 At the request of: NORBERT VEGA DO Procedure: US OB fet al BPP w non-stress BIOPHYSICAL PROFILE: CLINICAL INFORMATION : Multigravida of advanced maternal age O09.523 COMPARISON: 12/21/2024 There is a single li ve intrauterine gestation in cephalic presentation. The reported gestational age is 32 weeks 5 days. The heart rate [id number] beats per minute. FINDINGS: TONE: 1 or mor e episodes of activity extension and flexion of extremity or opening and closing of the hand [Y] 2/2 GROSS BODY MOVEMENTS : 3 or more discrete body or limb movements [Y] 2/2 BREATHING MOVEMENTS: 1 or more episodes of breathing lasting at least 30 seconds [Y] 2/2 LILIANA: A single deepes t vertical pocket of amniotic fluid greater than 2 cm [Y] 2/2 LILIANA: 9.8 cm This is in low-normal range (5th percentile 8.3 cm). Total score: 8/8 US/US OB BPP w non-stress IMPRESSION: NORMAL BIOPHYSICAL PROFILE. Impression dictated by: Lise Bolanos M.D. 12/28/2024 10:16 AM Dictation Location: [place] [address] Electronically authenticated by: [id number] Y Date: 12/28/2024 10:16 Dictated By: Lise Bolanos M.D. Signed By: 12/28/24 1019 DD/ 1016 TD/TT: Pastoral Worker: ESTHER (CLEAN or CATCH) ELISE or Pao DICK IF IND. Reviewed date:11/30/2024 06:40:07 PM Interpretation: Performing Lab: Notes/Report: [facility] , Color Urine LT. YELLOW YELLOW Clarity Urine CLEAR CLEAR Specific [place] Urine 1.010 1.005-1.025 pH Urine 6.5 5.0-9.0 Protein Urine NEGATIVE NEG/TRACE mg/dL Glucose Urine UA NEGATIVE NEGATIVE mg/dL Bilirubin Urine NEGATIVE NEGATIVE Ketones Urine NEGATIVE NEGATIVE mg/dL Blood Urine NEGATIVE NEGATIVE Nitrite Urine NEGATIVE NEGATIVE Urobilinogen Urine 0.2 0.2-1.0 EU/dL Leukocyte Esterase Urine NEGATIVE NEGATIVE Urine Microscopic Indicated NO Performing Lab: see note ML - [facility] LB CBC AUTO DIFF Reviewed date:10/23/2024 08:04:33 PM Interpretation: Performing Lab: Notes/Report: [facility] , White Blood Count 9.3 4.0-11.0 10 3/uL Red Blood Count 3.79 4.20-5.40 10 6/uL Hemoglobin 10.2 12.0-16.0 g/dL Hematocrit 31.8 36.0-48.0 % Mean Corpuscular Volume 83.9 81.0-99.0 fL Mean Corpuscular Hemoglobin 26.9 26.7-34.0 pg Mean Corpuscular HGB Conc 32.1 29.9-35.2 g/dL Red Cell Distribution Width 14.6 11.0-15.0 % Platelet Count 202 150-450 10 3/uL Mean Platelet Volume 11.0 9.5-13.5 fL Neutrophils Percent Auto 77.6 43.0-75.0 % Lymphocytes Percent Auto 15.9 20.5-60.0 % Monocytes Percent Auto 4.7 1.7-12.0 % Eosinophils Percent Auto 1.2 0.9-7.0 % Basophils Percent Auto 0.1 0.2-2.0 % Immature Granulocytes Pct Auto 0.5 0.0-0.5 % Neutrophils Absolute Auto 7.2 1.4-6.5 10 3/uL Lymphocytes Absolute Auto 1.5 1.2-3.8 10 3/uL Monocytes Absolute Auto 0.4 0.3-0.8 10 3/uL Eosinophils Absolute Auto 0.1 0.0-0.7 10 3/uL Basophils Absolute Auto 0.0 0.0-0.1 10 3/uL Immature Granulocytes Abs Auto 0.05 0.00-0.03 10 3/uL Performing Lab: see note ML - [facility] PREG QUANT HCG Reviewed date:06/27/2024 07:58:06 PM Interpretation: Performing Lab: Notes/Report: [facility] , HCG Quantitative 45032 5-50 0.2-1 WEEK 50-500 1-2 WEEKS 100-5,000 2-3 WEEKS 500-10,000 3-4 WEEKS 1,000-50,000 4-5 WEEKS 10,000-100,000 5-6 WEEKS 15,000-200,000 6-8 WEEKS 10,000-100,000 2-3 MONTHS Performing Lab: see note ML - [facility] PREG QUANT HCG Reviewed date:06/21/2024 07:32:12 PM Interpretation: Performing Lab: Notes/Report: [facility] , HCG Quantitative 4062 5-50 0.2-1 WEEK 50-500 1-2 WEEKS 100-5,000 2-3 WEEKS 500-10,000 3-4 WEEKS 1,000-50,000 4-5 WEEKS 10,000-100,000 5-6 WEEKS 15,000-200,000 6-8 WEEKS 10,000-100,000 2-3 MONTHS Performing Lab: see note ML - [facility] PREG QUANT HCG Reviewed date:06/19/2024 06:30:29 PM Interpretation: Performing Lab: Notes/Report: [facility] , HCG Quantitative 3108 5-50 0.2-1 WEEK 50-500 1-2 WEEKS 100-5,000 2-3 WEEKS 500-10,000 3-4 WEEKS 1,000-50,000 4-5 WEEKS 10,000-100,000 5-6 WEEKS 15,000-200,000 6-8 WEEKS 10,000-100,000 2-3 MONTHS Performing Lab: see note ML - [facility] Progesterone Reviewed date:02/15/2024 02:45:45 PM Interpretation: Performing Lab: Notes/Report: [facility] , Progesterone 39.1 . ng/mL Follicular phase 0.1 - 0.9 Luteal phase 1.8 - 23.9 Ovulation phase 0.1 - 12.0 First trimester 11.0 - 44.3 Second trimester 25.4 - 83.3 Third trimester 58.7 - 214.0 Postmenopausal 0.0 - 0.1 Performed at: - [facility] [id number] Financial Operations Consultant: Blaise Thompson PhD, Phone: [phone] Performing Lab: see note - [facility] Urine Culture, Routine Reviewed date:12/12/2024 09:20:54 AM Interpretation: Performing Lab: Notes/Report: [facility] , Urine Culture, Routine See Below For Report Urine Culture, Routine Urine Culture, Routine Mixed urogenital stephani Urine Culture, Routine Urine Culture, Routine 10,000-25,000 col nafisa forming units per mL Urine Culture, Routine Urine Culture, Routine Performed at: [facility] Urine Culture, Routine Urine Culture, Routine [address] [place], [place] [id number] Urine Culture, Routine Urine Culture, Routine Financial Operations Consultant: Tommy Thompson PhD, Phone: [phone] Urine Culture, Routine Performing Lab: see note LC - [facility] SEE REPORT - Steam Hoist Operator Id information not found for OBX-specific technical producer legend UA (CLEAN or CATCH) [employer]OS[employer] PIC IF INDICATE Reviewed date:12/09/2024 05:07:16 PM Interpretation: Performing Lab: Notes/Report: [facility] , Color Urine YELLOW YELLOW Clarity Urine SL CLOUDY CLEAR Specific [place] Urine >=1.030 1.005-1.025 pH Urine 6.0 5.0-9.0 Protein Urine 100 NEG/TRACE mg/dL Glucose Urine UA NEGATIVE NEGATIVE mg/dL Bilirubin Urine NEGATIVE NEGATIVE Ketones Urine 15 NEGATIVE mg/dL Blood Urine LARGE NEGATIVE Nitrite Urine NEGATIVE NEGATIVE Urobilinogen Urine 1.0 0.2-1.0 EU/dL Leukocyte Esterase Urine NEGATIVE NEGATIVE Urine Microscopic Indicated YES Performing Lab: see note ML - [facility] LB PROF CHEM 8 (BAS METB) Reviewed date:12/10/2024 12:27:48 PM Interpretation: Performing Lab: Notes/Report: [facility] , Sodium 137 136-145 mmol/L Potassium 3.0 3.5-5.1 mmol/L Chloride 100 98-107 mmol/L Carbon Dioxide 23.4 21.0-32.0 mmol/L Anion Gap 16.6 Glucose 105 74-106 mg/dL Blood Urea Nitrogen 5.0 7.0-18.0 mg/dL Creatinine 0.61 0.55-1.02 mg/dL Estimated GFR ( Lidia >60 >=60 mL/min/1.73m 2 Estimated GFR (Non- Char >60 >=60 mL/min/1.73m 2 BUN Creatinine Ratio 8.2 Calcium 8.6 8.5-10.1 mg/dL Performing Lab: see note ML - [facility] LB DRUG SCREEN RAPID (URINE) Reviewed date:12/10/2024 12:27:48 PM Interpretation: Performing Lab: Notes/Report: [facility] , Cannabinoid Screen Urine NEGATIVE NEGATIVE Phencyclidine Screen Urine NEGATIVE NEGATIVE Cocaine Screen Urine NEGATIVE NEGATIVE Methamphetamines Screen Urine NEGATIVE NEGATIVE Opiate Screen Urine NEGATIVE NEGATIVE Amphetamine Screen Urine NEGATIVE NEGATIVE Benzodiazepines Screen Urine NEGATIVE NEGATIVE Tricyclic Antidepressant Urine NEGATIVE NEGATIVE Methadone Screen Urine NEGATIVE NEGATIVE Barbiturates Screen Urine NEGATIVE NEGATIVE Oxycodone Screen Urine NEGATIVE NEGATIVE Buprenorphine Screen Urine NEGATIVE NEGATIVE DRUG CLASS TEST SYSTEM CUT-OFF CONCENTRATIONS ARE FOLLOWS: AMP (Amphetamine): 500 ng/mL BAR (Barbiturates): 200 ng/mL BZO (Benzodiazepines): 150 ng/mL BUP (Buprenorphine): 10 ng/mL MARKY (Cocaine): 150 ng/mL mAMP (Methamphetamine): 500 ng/mL MTD (Methadone): 200 ng/mL OPI (Opiates): 100 ng/mL OXY (Oxycodone): 100 ng/mL PCP (Phencyclidine): 25 ng/mL THC (Cannabinoids): 50 ng/mL TCA (Trycyclic Antidepressants): 300 ng/mL Performing Lab: see note ML - [facility] LB CBC AUTO DIFF Reviewed date:12/10/2024 12:27:48 PM Interpretation: Performing Lab: Notes/Report: [facility] , White Blood Count 16.6 4.0-11.0 10 3/uL Red Blood Count 3.62 4.20-5.40 10 6/uL Hemoglobin 9.0 12.0-16.0 g/dL Hematocrit 29.0 36.0-48.0 % Mean Corpuscular Volume 80.1 81.0-99.0 fL Mean Corpuscular Hemoglobin 24.9 26.7-34.0 pg Mean Corpuscular HGB Conc 31.0 29.9-35.2 g/dL Red Cell Distribution Width 14.5 11.0-15.0 % Platelet Count 176 150-450 10 3/uL Mean Platelet Volume 11.8 9.5-13.5 fL Neutrophils Percent Auto 91.3 43.0-75.0 % Lymphocytes Percent Auto 5.4 20.5-60.0 % Monocytes Percent Auto 2.8 1.7-12.0 % Eosinophils Percent Auto 0.0 0.9-7.0 % Basophils Percent Auto 0.1 0.2-2.0 % Immature Granulocytes Pct Auto 0.4 0.0-0.5 % Neutrophils Absolute Auto 15.2 1.4-6.5 10 3/uL Lymphocytes Absolute Auto 0.9 1.2-3.8 10 3/uL Monocytes Absolute Auto 0.5 0.3-0.8 10 3/uL Eosinophils Absolute Auto 0.0 0.0-0.7 10 3/uL Basophils Absolute Auto 0.0 0.0-0.1 10 3/uL Immature Granulocytes Abs Auto 0.07 0.00-0.03 10 3/uL Performing Lab: see note ML - [facility] LB XR foot LT min 3V Reviewed date:04/19/2024 09:29:12 PM Interpretation: Performing Lab: Notes/Report: Source Facility: [facility] [place] [address] [place] [address] XRay Report Signed Patient: JANNIE SANON MR#: [id number] : 1985 Acct:[id number] Age/Sex: 38 / F ADM Date: 04/17/24 Loc: RAD Attending Dr: Quoc Bell M.D. Ordering Physician: Quoc Bell M.D. Date of Service: 04/17/24 Procedure(s): XR foot LT min 3V Accession Number(s): [id number] cc: Quoc Bell M.D. [place] [address] Patient Name: JANNIE SANON MRN: [id number] date: 1985 Sex: F Assigned Patient Location: [facility] Current Patient Location: Accession/Order Number: [id number] Exam Date: 04/17/2024 17:15 Report Date: 04/19/2024 10:24 At the request of: QUOC BELL Procedure: XR foot LT min 3V PROCEDURE: XR foot LT min 3V HISTORY: FOOT PAIN, LEFT M79.672 COMPARISON: XR foot left 11/25/2011 FINDINGS: BONES:No fracture, acute abnormality, or significant arthropathy. SOFT TISSUES:No visible soft tissue swelling. EFFUSION:None visible. OTHER: Negative. XR/XR foot LT min 3V IMPRESSION: 1. No acute bone abnormality or significant degenerative changes. Skin surface marker localizing the patient's tenderness to the first tarsal-metatarsal joint. Electronically authenticated by: MARK ANTHONY GORDILLO Date: 04/19/2024 10:24 Dictated By: Mark Anthony Gordillo M.D. Signed By: 04/19/24 1026 DD/ 1024 TD/TT: Pastoral Worker: [place] [address] XRay Report Signed Patient: JANNIE SANON MR#: [id number] : 1985 Acct:[id number] Age/Sex: 38 / F ADM Date: 04/17/24 Loc: RAD Attending Dr: Sinan Bell M.D. Ordering Physician: Quoc Bell M.D. Date of Service: 04/17/24 Procedure(s): XR ally t LT min 3V Accession Number(s): [id number] cc: Quoc Bell M.D. [place] [address] Patient Name: JANNIE SANON MRN: [id number] date: 1985 Sex: F Assigned Patient Location: [facility] Current Patient Location: Accession/Order Number: [id number] Exam Date: 04/17/2024 17:15 Report Date: 04/19/2024 10:24 At the request of: QUOC BELL Procedure: XR foot L T min 3V PROCEDURE: XR foot L T min 3V HISTORY: FOOT PAIN, LEFT M79.672 COMPARISON: XR foot left 11/25/2011 FINDINGS: BONES:No fracture, acute abnormality, or significant arthropathy. SOFT TISSUES:No visible soft tissue swelling. EFFUSION:None visible. OTHER: Negative. XR/XR foot LT min 3V IMPRESSION: 1. No acute bone abnormality or significant degenerative changes. Skin surface marker localizing th e patient's tenderness to the first tarsal-metatarsal joint. Electronically authenticated by: MARK ANTHONY GORDILLO Date: 04/19/2024 10:24 Dictated By: Mark Anthony Gordillo M.D. Signed By: 04/19/24 1026 DD/ 1024 TD/TT: Pastoral Worker: Reason For Referral No Information Medications Medication SIG (Take, Route, Fr equency, [...] (Standard) Question Answer Notes Tobacco use: Nonsmoker AUDIT-C (Standard) Question Answer Notes Did you have a drink containing alcohol in the p ast year? No Points 0 Interpretation Negative Problems Problem Type SNOMED Code ICD Code Onset Dates Problem Status W/U Status Risk Notes Problem Adjustment disorder with anxiety (57596093) Adjustment disorder with anxiety (F43.22) Active confirmed Problem Anemia (831464411) Anemia (D64.9) Active confirmed Problem Gout (05314375) Gout (M10.9) Active confirmed Problem Insomnia (095694390) Insomnia (G47.00) Active confirmed Problem Pain in limb (62807269) Foot pain, left (M79.672) Active confirmed Problem Well adult (043950749) Well adult (Z00.00) Active confirmed Problem Cellulitis (459529304) Cellulitis (L03.90) Active confirmed Problem Contact dermatitis (49372596) Contact dermatitis (L25.9) Active confirmed Problem Overweight (210525809) Over weight (E66.3) Active confirmed Problem Posttraumatic stress disorder (61964025) Post traumatic stress disorder (F43.10) Active confirmed Problem Breakthrough bleeding (66201529) Breakthrough bleeding (N92.1) Active confirmed Problem Pruritic disorders (979632016) Chronic pruritus (L29.9) Active confirmed Problem Acute inflammation of sinus (00774587) Acute inflammation of sinus (J01.90) Active confirmed Problem 34631451 Pure hypercholesterol emia, unspecified (E78.00) Active confirmed Problem Cyst of left ovary (5604674345223716 8) Other ovarian cyst, left side (N83.292) Active confirmed Problem Backache (804191552) Inflammatory back pain (M54.89) Active confirmed Vital Signs Temperature 99.3 degrees Fahrenheit 09/11/2024 Blood pressure diastolic 72 mm Hg 09/11/2024 Height 59 in 09/11/2024 Blood pressure systolic 112 mm Hg 09/11/2024 Weight 157 lbs 09/11/2024 BMI 31.71 kg/m2 09/11/2024 Encounters Encounter Location Date Provider Diagnosis [facility] [address] [place] [address] 02/09/2024 QUOC [facility] [address] [facility] [place] [address] 03/10/2024 [facility] [address] [place] [address] 04/19/2024 Emeka [facility] [address] [place] [address] 05/24/2024 Emeka emma [facility] [address] [facility] [address] 06/27/2024 Emeka [facility] [address] [facility] [place] [address] 08/18/2024 Emeka emma [facility] [address] [facility] [place] [address] 01/27/2024 QUOC [facility] [address] [place] [address] 04/17/2024 Emeka Hoy Foot pain, left M79.672 [facility] [address] [place] [address] 09/11/2024 Emeka Hoy Acute non-recurrent sinusitis, unspecified location J01.90 and Nasal congestion R09.81 Assessments Encounter Date Diagnosis (ICD Code) Assessment Notes Treatment Notes Treatment Clinical Notes Section Notes 04/17/2024 Foot pain, left (ICD-10 - M79.672) 09/11/2024 Acute non-recurrent sinusitis, unspecified location (ICD-10 - J01.90) Rest and drink more liquids, especially water. You may use a humidifier or vaporizer to help keep the drainage moist. Entg-nrx-erwldel Nasal Saline may help the stuffy and runny nose. Use Ibuprofen and or Tylenol as needed for fever, chills, body aches or pain. Children 5 years old should not be given znod-wqi-jjolwds cough and cold medications such as guaifenesin and dextromethorphan. If you're over age 5, you may try vbzk-auc-xaznuzb cold medications such as guaifenesin and dextromethorphan, [...] congestion (ICD-10 - R09.81) Plan Of Treatment Pending Test Test Name Order Date CMP (COMPLETE METABOLIC PANEL) 4 HEMOGLOBIN A1C (GLYCO) 12/27/2023 IRON, TOTAL 12/27/2023 LIPID PANEL (CHOL/TRIG/HDL/LDL) 12/27/19 24 CBC WITH DIFF 12/27/2023 VITAMIN D, 25 LEVEL (TOTAL) 12/27/2023 Insulin Level 12/27/2023 XR FOOT LT MIN 3 VIEWS 04/17/2024 THYROID PANEL (T4/TSH/FREE T3) 4 Insurance Providers Payer Name Payer Address Payer Phone Subscriber Number Group Number Insured Name Patient Relationship to Insured Coverage Start Date Coverage End Date [employer] [place] [employer] [address] [address] [place] [phone] [id number] Jannie Sanon Self - patient is the insured Medical (General) History Surgical History Surgery Date(Month/Year) oral surgery tonsilectomy d and c 2003 4 c sections
--- OUTSIDE RECORDS SUMMARY | 2025-01-04 10:53 | XMS_ITS | Encounter Summary ---
Author Organization [facility] Address [address] [place] [address] Care Team Providers Care Access Service Representative Name Role Phone Darshan Watts MD Primary Care Provider [phone] Encounter Details Date Type Department Care Team (Late Contact Info) Description 03/03/2024 Abstract [facility] [address] [place] [phone] Kannan Vega [facility] [place] [address] Social History Tobacco Use Types Packs/Day Years Used Date Smoking Tobacco: Never Smokeless Tobacco: Never Alcohol Use Standard Drinks/Week Comments Yes 1 (1 standard drink = 0.6 oz pur e alcohol) caffeine intake: occasionally Comments No Sex and Gender Information Value Date Recorded Sex Assigned at Not on file Legal Sex Female 7:28 PM EDT Gender Identity Not on file Sexual Orientation Not on file documented as of this encounter Plan of Treatment Upcoming Encounters Date Type Department Care Team (Late st Contact Info) Description 01/08/2025 10:00 AM EDT Routine [facility] [address] [place] [phone] Kannan Vega DO [facility] [place], [place] [address] documented as of this encounter Visit Diagnoses Not on filedocumented in this encounter Care Teams Access Service Representative Relationship Specialty Start Date End Date Darshan Watts MD [address] [place] [address] PCP - General Family Medicine 12/28/22 documented as of this encounter
--- OUTSIDE RECORDS SUMMARY | 2025-01-04 10:53 | XMS_ITS | Encounter Summary ---
Author Organization [facility] Address [address] [place] [address] Care Team Providers Care Microsoft Bi Developer Name Role Phone Darshan Watts MD Primary Care Provider [phone] Encounter Details Date Type Department Care Team (Latest Contact Info) Description 12/21/2024 Travel Social History Tobacco Use Types Packs/Day Years [...] EDT Routine [facility] [address] [place] [address] Kannan Vega, DO [address] [facility] [place] [address] documented as of this encounter Visit Diagnoses Not on filedocumented in this encounter Care Teams Microsoft Bi Developer Relationship Specialty Start Date End Date Darshan Watts MD [address] [facility] [place] [address] PCP - General Family Medicine 12/28/22 documented as of this encounter
--- OUTSIDE RECORDS SUMMARY | 2025-01-04 10:53 | XMS_ITS | Encounter Summary ---
Author Organization [facility] Address [address] [place] [address] Care Team Providers Care Integration Architect Name Role Phone Darshan Watts MD Primary Care Provider [phone] Encounter Details Date Type Department Care Team (Late Contact Info) Description 12/26/2024 Bamboo flowsheet [facility] [address] [place] [address] [facility] [place], [facility] Social History Tobacco Use Types Packs/Day Years [...] Description 01/08/2025 10:00 AM EDT Routine [facility] [address] [place] [address] Kannan Vega, DO [facility] [place], [facility]11 documented as of this encounter Visit Diagnoses Not on filedocumented in this encounter Care Teams Integration Architect Relationship Specialty Start Date End Date Darshan Watts MD [address] [place] [address] PCP - General Family Medicine 12/28/22 documented as of this encounter
--- OUTSIDE RECORDS SUMMARY | 2025-01-04 10:53 | XMS_ITS | Encounter Summary ---
Author Organization [facility] Address [address] [place] [address] Care Team Providers Care Conservation Policy Analyst Name Role Phone Darshan Watts MD Primary Care Provider [phone] Encounter Details Date Type Department Care Team (Late st Contact Info) Description 11/01/2023 Clinisync Result Encounter [facility] External Department Unsolicited Norbert Vega, [facility] [place] [address] Social History Tobacco Use Types Packs/Day Years [...] Routine [facility] BCP [address] [place] [phone] Norbert Vega DO [facility] [place] [address] documented as of this encounter Procedures Procedure Name Priority Date/Time Associated Diagnosis Comments US PELVIS TRANSVAGINAL 11/01/2023 12:52 PM EDT documented in this encounter Results * US PELVIS TRANSVAGINAL (11/01/2023 12:52 PM EDT) Anatomical Region Laterality Modality Other 11/01/2023 12:5 2 PM EDT Narrative 11/01/2023 12:55 [place] [address] Ultrasound Report Signed Patient: LB SANON MR#: [id number] : 1985 Acct:[id number] Age/Sex: 38 / F ADM Date: 11/01/23 Loc: US Attending Dr: Norbert Vega D.O. Ordering Physician: Norbert Vega D.O. Date of Service: 11/01/23 Procedure(s): US pelvis transvaginal Accession Number(s): [id number] cc: Norbert Vega D.O.; Darshan Watts M.D. [place] [id number] Patient Name: LB SANON MRN: [id number] date: 1985 Sex: F Assigned Patient Location: US Current Patient Location: US Accession/Order Number: [id number] Exam Date: 11/01/2023 11:48 Report Date: 11/01/2023 12:52 At the request of: NORBERT VEGA Procedure: US pelvis transvaginal EXAMINATION: US pelvis transvaginal HISTORY: complex cyst of left ovary N83.292 COMPARISON: 09/20/2023 FINDINGS: The uterus is normal in size, contour and echotexture measuring 9.0 x 6.0 x 4.4 cm, anteverted. The endometrium measures 12.2 mm, heterogeneous. Area of anechoic echogenicity measuring 1 cm possibly fluid The right ovary measures 3.0 x 2.0 x 2.0 cm. Normal color Doppler flow. Normal follicles/simple cysts The left ovary measures 1.7 x 1.6 x 2.3 cm. Normal color and Doppler flow. Interval resolution of the previously identified complex cyst US/US pelvis transvaginal IMPRESSION: Interval resolution of complex left ovarian cyst Electronically authenticated by: PEREZ DURBIN Date: 11/01/2023 12:52 Dictated By: Perez Durbin M.D. Signed By: 11/01/23 1251 DD/ 1252 TD/TT: Color Depositing Machine Tender: Procedure Note Radiology, Radiologist, - 11/01/2023 [place] [address] Ultrasound Report Signed Patient: LB SANON RMR#: [id number] : 1985Acct:[id number] Age/Sex: 38 / FADM Date: 11/01/23 Loc: US Attending Dr: Norbert Vega D.O. Ordering Physician: Norbert Vega D.O. Date of Service: 11/01/23 Procedure(s): US pelvis transvaginal Accession Number(s): [id number] cc: Norbert Vega D.O.; Darshan Watts M.D. The [place] [address] Patient Name: LB SANON MRN: [id number] date: 1985 Sex: F Assigned Patient Location: US Current Patient Location: US Accession/Order Number: [id number] Exam Date: 11/01/2023 11:48 Report Date: 11/01/2023 12:52 At the request of: NORBERT VEGA Procedure: US pelvis transvaginal EXAMINATION: US pelvis transvaginal HISTORY: complex cyst of left ovary N83.292 COMPARISON: 09/20/2023 FINDINGS: The uterus is normal in size, contour and echotexture measuring 9.0 x 6.0x 4.4 cm, anteverted. The endometrium measures 12.2 mm, heterogeneous. Area of anechoicechogenicity measuring 1 cm possibly fluid The right ovary measures 3.0 x 2.0 x 2.0 cm. Normal color Doppler flow.Normal follicles/simple cysts The left ovary measures 1.7 x 1.6 x 2.3 cm. Normal color and Doppler flow. Interval resolution of the previously identified complex cyst US/US pelvis transvaginal IMPRESSION: Interval resolution of complex left ovarian cyst Electronically authenticated by: PEREZ DURBIN Date: 11/01/2023 12:52 Dictated By: Perez Durbin M.D. Signed By:11/01/23 1255 DD/ 1252 TD/TT: Color Depositing Machine Tender: us Norbert Silvia DO [facility] Final Result documented in this encounter Visit Diagnoses Not on filedocumented in this encounter Care Teams Conservation Policy Analyst Relationship Specialty Start Date End Date Darshan Watts MD [address] [place] [address] PCP - General Family Medicine 12/28/22 documented as of this encounter
--- OUTSIDE RECORDS SUMMARY | 2025-01-04 10:53 | XMS_ITS | Encounter Summary ---
Author Organization [facility] Address [address] [place] [address] Care Team Providers Care Spikemaking Supervisor Name Role Phone Darshan Watts MD Primary Care Provider [phone] Encounter Details Date Type Department Care Team (Late st Contact Info) Description 11/11/2023 Abstract [facility] [address] [facility] [place] [address] Gemma Dumont LPN [address] [facility] Charly [facility] Social History Tobacco Use Types Packs/Day Years [...] Description 01/08/2025 10:00 AM EDT Routine [facility] [address] [facility] [facility] [place] [address] Kannan Vega [address] [place] [address] documented as of this encounter Visit Diagnoses Not on filedocumented in this encounter Care Teams Spikemaking Supervisor Relationship Specialty Start Date End Date Darshan Watts MD [address] [place] [address] PCP - General Family Medicine 12/28/22 documented as of this encounter
--- OUTSIDE RECORDS SUMMARY | 2025-01-04 10:53 | XMS_ITS | Encounter Summary ---
Author Organization [facility] Address [address] [place] [address] Care Team Providers Care Wellness Nurse Rn Name Role Phone Darshan Watts MD Primary Care Provider [phone] Encounter Details Date Type Department Care Team (Latest Contact Info) Description 01/01/2025 Travel Social History Tobacco Use Types Packs/Day [...] BCP OB [address] [place] [address] Kannan Vega, DO [address] [facility] [place] [address] documented as of this encounter Visit Diagnoses Not on filedocumented in this encounter Care Teams Wellness Nurse Rn Relationship Specialty Start Date End Date Darshan Watts MD [address] [facility] [place] [address] PCP - General Family Medicine 12/28/22 documented as of this encounter
--- OUTSIDE RECORDS SUMMARY | 2025-01-04 10:53 | XMS_ITS | Encounter Summary ---
Author Organization [facility] Address [address] [place] [address] Care Team Providers Care Photographer Finish Name Role Phone Darshan Watts MD Primary Care Provider [phone] Encounter Details Date Type Department Care Team (Late st Contact Info) Description 07/28/2024 Abstract [facility] [address] [place] [address] Kannan Vega, DO [address] [place] [address] [place], [facility] Social History Tobacco Use Types Packs/Day Years [...] Description 01/08/2025 10:00 AM EDT Routine [facility] [address] [place] [address] Kannan Vega, DO [facility] [place], [facility] documented as of this encounter Visit Diagnoses Not on filedocumented in this encounter Care Teams Photographer Finish Relationship Specialty Start Date End Date Darshan Watts MD [address] [place] [address] PCP - General Family Medicine 12/28/22 documented as of this encounter
--- OUTSIDE RECORDS SUMMARY | 2025-01-04 10:53 | XMS_ITS | Encounter Summary ---
Author Organization [facility] Address [address] [place] [address] Care Team Providers Care Lip Of Shank Cutter Name Role Phone Darshan Watts MD Primary Care Provider [phone] Encounter Details Date Type Department Care Team (Late st Contact Info) Description 12/28/2024 Clinisync Result Encounter [facility] External Department Unsolicited Norbert Vega, DO [address] [place], [place] [id number] Social History Tobacco Use Types Packs/Day Years [...] Routine [facility] BCP OB [address] [place] [phone] Norbert Vega DO [address] [place] [address] documented as of this encounter Procedures Procedure Name Priority Date/Time Associated Diagnosis Comments US OB BPP W NON-STRESS 12/28/2024 10:16 AM EDT documented in this encounter Results * US OB BPP W NON-STRESS (12/28/2024 10:16 AM EDT) Anatomical Region Laterality Modality Other 12/28/2024 10:1 6 AM EDT Narrative 12/28/2024 10:19 [place] [address] Ultrasound Report Signed Patient: LB SANON MR#: [id number] : 1985 Acct:[id number] Age/Sex: 39 / F ADM Date: 12/28/24 Loc: US Attending Dr: Norbert Vega D.O. Ordering Physician: Norbert Vega D.O. Date of Service: 12/28/24 Procedure(s): US OB BPP w non-stress Accession Number(s): [id number] cc: Norbert Vega D.O.; Darshan Watts M.D. The [place] [address] Patient Name: LB SANON MRN: [id number] date: 1985 Sex: F Assigned Patient Location: [facility] Current Patient Location: Accession/Order Number: [id number] Exam Date: 12/28/2024 10:13 Report Date: 12/28/2024 10:16 At the request of: NORBERT VEGA DO Procedure: US OB BPP w non-stress BIOPHYSICAL PROFILE: CLINICAL INFORMATION: Multigravida of advanced maternal age O09.523 COMPARISON: 12/21/2024 There is a single live intrauterine gestation in cephalic presentation. The reported gestational age is 32 weeks 5 days. The heart rate [id number] beats per minute. FINDINGS: TONE: 1 or [...] Bolanos M.D. 12/28/2024 10:16 AM Dictation Location: [place] [address] Electronically authenticated by: [id number] Y Date: 12/28/2024 10:16 Dictated By: Lise Bolanos M.D. Signed By: 12/28/24 1019 DD/ 1016 TD/TT: Middle School Tutor: Procedure Note Radiology, Radiologist, - 12/28/2024 [place] [address] Ultrasound Report Signed Patient: LB SANON RMR#: [id number] : 1985Acct:[id number] Age/Sex: 39 / FADM Date: 12/28/24 Loc: US Attending Dr: Norbert Vega D.O. Ordering Physician: Norbert Vega D.O. Date of Service: 12/28/24 Procedure(s): US OB BPP w non-stress Accession Number(s): [id number] cc: Norbert Vega D.O.; Darshan Watts M.D. The [place] [id number] Patient Name: LB SANON MRN: [id number] date: 1985 Sex: F Assigned Patient Location: [facility] Current Patient Location: Accession/Order Number: [id number] Exam Date: 12/28/2024 10:13 Report Date: 12/28/2024 10:16 At the request of: NORBERT VEGA DO Procedure: US OB BPP w non-stress BIOPHYSICAL PROFILE: CLINICAL INFORMATION: Multigravida of advanced maternal age O09.523 COMPARISON: 12/21/2024 There is a single live intrauterine gestation in cephalic presentation.The reported gestational age is 32 weeks 5 days. The heart beats per minute. FINDINGS: TONE: 1 or [...] range (5th percentile 8.3 cm). Total score: 03/16 US/US OB BPP w non-stress IMPRESSION: NORMAL BIOPHYSICAL PROFILE. Impression dictated by: Lise Bolanos M.D. 12/28/2024 10:16 AM Dictation Location: [place] [address] Electronically authenticated by: [id number] Y Date: 0:16 Dictated By: Lise Bolanos M.D. Signed By:12/28/24 1019 DD/ 1016 TD/TT: Middle School Tutor: [facility] DO [facility] Final Result documented in this encounter Visit Diagnoses Not on filedocumented in this encounter Care Teams Lip Of Shank Cutter Relationship Specialty Start Date End Date Darshan Watts MD [address] [place] [address] PCP - General Family Medicine 12/28/22 documented as of this encounter
--- OUTSIDE RECORDS SUMMARY | 2025-01-04 10:53 | XMS_ITS | Encounter Summary ---
Author Organization [facility] Address [address] [place] [address] Care Team Providers Care Gps Field Data Collector Name Role Phone Darshan Watts MD Primary Care Provider [phone] Encounter Details Date Type Department Care Team (Late st Contact Info) Description 05/26/2023 Abstract [facility] [address] [facility] [address] [place] [address] Milagros Rose, [facility] 112 [facility] [address] [place] [address] Social History Tobacco Use Types Packs/Day Years Used Date Smoking Tobacco: Never Smokeless Tobacco: Never Alcohol Use Standard Drinks/Week Comments Yes 1 (1 standard drink = 0.6 oz pur e alcohol) caffeine intake: occasionally Comments Unknown Sex and Gender Information Value Date Recorded Sex Assigned at Not on file Legal Sex Female 7:28 PM EDT Gender Identity Not on file Sexual Orientation Not on file documented as of this encounter Plan of Treatment Upcoming Encounters Date Type Department Care Team (Late st Contact Info) Description 01/08/2025 10:00 AM EDT Routine [facility] BCP OB [address] [place] [address] Kannan Vega DO [address] [place] [address] documented as of this encounter Visit Diagnoses Not on filedocumented in this encounter Care Teams Gps Field Data Collector Relationship Specialty Start Date End Date Darshan Watts MD [address] [place] [address] PCP - General Family Medicine 12/28/22 documented as of this encounter
--- NOTE | 2025-01-04 10:54 | US_ITS ---
The [place] [id number] Patient Name: LB ANTONIO MRN: [id number] date: 1985 Sex: F Assigned Patient Location: Current Patient Location: US Accession/Order Number: [id number] Exam Date: 01/04/2025 11:35 Report Date: 01/04/2025 11:36 At the request of: NORBERT WILLIS DO Procedure: US OB BPP w non-stress BIOPHYSICAL PROFILE: CLINICAL INFORMATION: Multigravida of advanced maternal age COMPARISON: 12/28/2024 There is a single live intrauterine gestation in cephalic presentation. The reported gestational age is 33 weeks 5 days. The heart rate [id number] beats per minute. FINDINGS: TONE: 1 or more episodes of activity extension and flexion of extremity or opening and closing of the hand [Y] 2/2 GROSS BODY MOVEMENTS: 3 or more discrete body or limb movements [Y] 2/2 BREATHING MOVEMENTS: 1 or more episodes of breathing lasting at least 30 seconds [Y] 2/2 LILIANA: A single deepest vertical pocket of amniotic fluid greater than 2 cm [Y] 2/2 LILIANA: 11.8 cm. This is in low-normal range. Total score: 8/8 / OB BPP w non-stress IMPRESSION: NORMAL BIOPHYSICAL PROFILE. Impression dictated by: Lise Bolanos M.D. 01/04/2025 11:36 AM Dictation Location: [place] [address] Electronically authenticated by: [id number] Y Date: 01/04/2025 11:36
--- OUTSIDE RECORDS SUMMARY | 2025-01-04 10:54 | XMS_ITS | Encounter Summary ---
Author Organization [facility] Address [address] [place] [address] Care Team Providers Care Cereal Popper Name Role Phone Darshan Watts MD Primary Care Provider [phone] Encounter Details Date Type Department Care Team (Late st Contact Info) Description 08/23/2024 Abstract [facility] OB [address] [place] [address] Kannan Vega, DO [address] [place] [address] Par[place], [facility]11 Social History Tobacco Use Types Packs/Day Years [...] Description 01/08/2025 10:00 AM EDT Routine [facility] OB [address] [place] [address] Kannan Vega, DO [facility] [address] [place], [facility]11 documented as of this encounter Visit Diagnoses Not on filedocumented in this encounter Care Teams Cereal Popper Relationship Specialty Start Date End Date Darshan Watts MD [address] [place] [address] PCP - General Family Medicine 12/28/22 documented as of this encounter
--- OUTSIDE RECORDS SUMMARY | 2025-01-04 10:54 | XMS_ITS | Encounter Summary ---
Author Organization [facility] Address [address] [place] [address] Care Team Providers Care Adult School Teacher Name Role Phone Darshan Watts MD Primary Care Provider [phone] Encounter Details Date Type Department Care Team (Late st Contact Info) Description 07/27/2024 Clinisync Result Encounter [facility] External Department Unsolicited Norbert Vega, [place] [address] Social History Tobacco Use Types Packs/Day Years [...] Encounters Date Type Department Care Team (Late Contact Info) Description 01/08/2025 10:00 AM EDT Routine [facility] BCP OB [address] [place] [phone] Norbert Vega DO [facility] [place] [address] documented as of this encounter Procedures Procedure Name Priority Date/Time Associated Diagnosis Comments US OB L= 14 WEEKS FETUS 07/27/2024 11:07 AM EST documented in this encounter Results * US OB L= 14 WEEKS FETUS (07/27/2024 11:07 AM EST) Anatomical Region Laterality Modality Other 07/27/2024 11:0 7 AM EST Narrative 07/27/2024 11:09 [place] [address] Ultrasound Report Signed Patient: LB SANON MR#: [id number] : 1985 Acct:[id number] Age/Sex: 38 / F ADM Date: 07/27/24 Loc: US Attending Dr: Norbert Vega D.O. Ordering Physician: Norbert Vega D.O. Date of Service: 07/27/24 Procedure(s): US OB <= 14 weeks fetus Accession Number(s): [id number] cc: Norbert Vega D.O. [place] [address] Patient Name: LB SANON MRN: [id number] date: 1985 Sex: F Assigned Patient Location: Current Patient Location: US Accession/Order Number: [id number] Exam Date: 07/27/2024 09:40 Report Date: 07/27/2024 11:07 At the request of: NORBERT VEGA Procedure: US OB <= 14 weeks fetus EXAMINATION: US OB <= 14 weeks fetus HISTORY: Missed Menses COMPARISON: No relevant comparison available. FINDINGS: [place] intrauterine gestation Gestational sac: 4.37 cm, 9 weeks 6 days CRL: 4.19 cm, 11 weeks 1 day Yolk sac: 4 mm Heart rate: 169 beats minute Cervix: Closed, 3.4 cm Clinical age: 10 weeks 5 days Clinical DILCIA: 02/17/2025 Ultrasound age: 11 weeks 1 day Ultrasound DILCIA: 02/14/2025 US/US OB <= 14 weeks fetus IMPRESSION: Viable [place] intrauterine gestation measuring 11 weeks 1 day Electronically authenticated by: PEREZ DURBIN Date: 07/27/2024 11:07 Dictated By: Perez Durbin M.D. Signed By: 07/27/24 1109 DD/ 06 TD/TT: Drop Wire Aligner: Procedure Note Radiology, Radiologist, MD - 07/27/2024 [place] [address] Ultrasound Report Signed Patient: LB SANON RMR#: [id number] : 1985Acct:[id number] Age/Sex: 38 / FADM Date: 07/27/24 Loc: US Attending Dr: Norbert Vega D.O. Ordering Physician: Norbert Vega D.O. Date of Service: 07/27/24 Procedure(s): US OB <= 14 weeks fetus Accession Number(s): [id number] cc: Norbert Vega D.O. The [place] [address] Patient Name: LB SANON MRN: [id number] date: 1985 Sex: F Assigned Patient Location: US Current Patient Location: US Accession/Order Number: [id number] Exam Date: 07/27/2024 09:40 Report Date: 07/27/2024 11:07 At the request of: NORBERT VEGA Procedure: US OB <= 14 weeks fetus EXAMINATION: US OB <= 14 weeks fetus HISTORY: Missed Menses COMPARISON: No relevant comparison available. FINDINGS: [place] intrauterine gestation Gestational sac: 4.37 cm, 9 weeks 6 days CRL: 4.19 cm, 11 weeks 1 day Yolk sac: 4 mm Heart rate: 169 beats minute Cervix: Closed, 3.4 cm Clinical age: 10 weeks 5 days Clinical DILCIA: 02/17/2025 Ultrasound age: 11 weeks 1 day Ultrasound DILCIA: 02/14/2025 US/US OB <= 14 weeks fetus IMPRESSION: Viable [place] intrauterine gestation measuring 11 weeks 1 day Electronically authenticated by: PEREZ DURBIN Date: 07/27/2024 11:07 Dictated By: Perez Durbin M.D. Signed By:07/27/241108 DD/ 06 TD/TT: Drop Wire Aligner: us Norbert Vega DO [facility] Final Result documented in this encounter Visit Diagnoses Not on filedocumented in this encounter Care Teams Adult School Teacher Relationship Specialty Start Date End Date Darshan Watts MD [address] [place] [address] PCP - General Family Medicine 12/28/22 documented as of this encounter
--- OUTSIDE RECORDS SUMMARY | 2025-01-04 10:54 | XMS_ITS | Encounter Summary ---
Author Organization [facility] Address [address] [place] [address] Care Team Providers Care Cane Weigher Helper Name Role Phone Darshan Watts MD Primary Care Provider [phone] Encounter Details Date Type Department Care Team (Late Contact Info) Description 12/25/2022 Abstract [facility] OB [address] [place] [address] [facility] [place] [address] Social History Tobacco Use Types Packs/Day Years [...] EDT Routine [facility] BCP OB [address] [place] [phone] Kannan Vega DO [facility] [place], [place] [address] documented as of this encounter Visit Diagnoses Not on filedocumented in this encounter Care Teams Cane Weigher Helper Relationship Specialty Start Date End Date Darshan Watts MD [address] [place] [address] PCP - General Family Medicine 12/28/22 documented as of this encounter
--- OUTSIDE RECORDS SUMMARY | 2025-01-04 10:54 | XMS_ITS | Encounter Summary ---
Author Organization [facility] Address [address] [place] [address] Care Team Providers Care Public Works Supervisor Name Role Phone Darshan Watts MD Primary Care Provider [phone] Encounter Details Date Type Department Care Team (Late st Contact Info) Description 10/10/2024 Abstract [facility] OB [address] [place] [address] Kannan Vega, DO [address] [place] [address] [place], [facility]11 Social History Tobacco Use Types [...] Description 01/08/2025 10:00 AM EDT Routine [facility] OB [address] [place] [address] Kannan Vega, DO [facility] [place], [facility]11 documented as of this encounter Visit Diagnoses Not on filedocumented in this encounter Care Teams Public Works Supervisor Relationship Specialty Start Date End Date Darshan Watts MD [address] [place] [address] PCP - General Family Medicine 12/28/22 documented as of this encounter
--- OUTSIDE RECORDS SUMMARY | 2025-01-04 10:54 | XMS_ITS | Encounter Summary ---
Author Organization [facility] Address [address] [place] [address] Care Team Providers Care Life Coach Name Role Phone Darshan Watts MD Primary Care Provider [phone] Encounter Details Date Type Department Care Team (Late st Contact Info) Description 08/07/2024 Abstract [facility] OB [address] [place] [address] Kannan Vega, DO [address] [place] [address] [place], [facility]11 Social History Tobacco Use Types Packs/Day Years [...] Description 01/08/2025 10:00 AM EDT Routine [facility] OB [address] [place] [address] Kannan Vega, DO [facility] [place], [facility]11 documented as of this encounter Visit Diagnoses Not on filedocumented in this encounter Care Teams Life Coach Relationship Specialty Start Date End Date Darshan Watts MD [address] [place] [address] PCP - General Family Medicine 12/28/22 documented as of this encounter
--- OUTSIDE RECORDS SUMMARY | 2025-01-04 10:54 | XMS_ITS | Encounter Summary ---
Author Organization [facility] Address [address] [place] [address] Care Team Providers Care Senior It Assistant Name Role Phone Darshan Watts MD Primary Care Provider [phone] Encounter Details Date Type Department Care Team (Late st Contact Info) Description 11/08/2024 Abstract [facility] OB [address] [place] [address] Kannan Vega, DO [address] [place] [address] [place], [facility]11 Social History Tobacco Use Types Packs/Day [...] Description 01/08/2025 10:00 AM EDT Routine [facility] OB [address] [place] [address] Kannan Vega, DO [facility] [place], [facility]11 documented as of this encounter Visit Diagnoses Not on filedocumented in this encounter Care Teams Senior It Assistant Relationship Specialty Start Date End Date Darshan Watts MD [address] [place] [address] PCP - General Family Medicine 12/28/22 documented as of this encounter
--- OUTSIDE RECORDS SUMMARY | 2025-01-04 10:54 | XMS_ITS | Encounter Summary ---
Author Organization [facility] Address [address] [place] [address] Care Team Providers Care Joint Cutter Machine Name Role Phone Darshan Watts MD Primary Care Provider [phone] Encounter Details Date Type Department Care Team (Late st Contact Info) Description 09/20/2023 Clinisync Result Encounter N[facility]S External Department Unsolicited Norbert Vega, [place] [address] Social History Tobacco Use Types Packs/Day Years [...] Routine [facility] BCP OB [address] [place] [phone] Norbert Vega DO [facility] [place] [address] documented as of this encounter Procedures Procedure Name Priority Date/Time Associated Diagnosis Comments US PELVIS W/ TRANSVAGINAL 09/20/2023 1:51 PM EST documented in this encounter Results * US PELVIS W/ TRANSVAGINAL (09/20/2023 1:51 PM EST) Anatomical Region Laterality Modality Other 09/20/2023 1:51 PM EST Narrative 09/20/2023 1:54 [place] [address] Ultrasound Report Signed Patient: LB SANON MR#: [id number] : 1985 Acct:[id number] Age/Sex: 37 / F ADM Date: 09/20/23 Loc: US Attending Dr: Norbert Vega D.O. Ordering Physician: Norbert Vega D.O. Date of Service: 09/20/23 Procedure(s): US pelvis w/ transvaginal Accession Number(s): [id number] cc: Norbert Vega D.O.; Darshan Watts M.D. [place] [id number] Patient Name: LB SANON MRN: [id number] date: 1985 Sex: F Assigned Patient Location: US Current Patient Location: US Accession/Order Number: [id number] Exam Date: 09/20/2023 11:42 Report Date: 09/20/2023 13:51 At the request of: NORBERT VEGA Procedure: US pelvis w/ transvaginal EXAMINATION: US pelvis w/ transvaginal HISTORY: pelvic pain in female R10.2 COMPARISON: 11/16/2022 FINDINGS: Transabdominal and transvaginal images The uterus is normal in size, contour and myometrial echotexture measuring 10.6 x 5.1 x 5.3 cm. No focal myometrial mass. The endometrium measures 5.8 mm, normal. The right ovary measures 3.8 x 2.6 x 2.1 cm. Normal color and Doppler flow. Complex cystic structure measuring 1.7 cm with irregular thickened wall but no internal vascularity The left ovary measures 2.7 x 1.6 x 2.0 cm. Normal color and Doppler flow No free fluid US/US pelvis w/ transvaginal IMPRESSION: Complex thick-walled left ovarian cyst measuring 1.7 cm Electronically authenticated by: PEREZ DURBIN Date: 09/20/2023 13:51 Dictated By: Perez Durbin M.D. Signed By: 09/20/23 4965 DD/ 1358 TD/TT: Operations Administrative Assistant: Procedure Note Radiology, Radiologist, MD - 09/20/2023 [place] [address] Ultrasound Report Signed Patient: LB SANON RMR#: [id number] : 1985Acct:[id number] Age/Sex: 37 / FADM Date: 09/20/23 Loc: US Attending Dr: Norbert Vega D.O. Ordering Physician: Norbert Vega D.O. Date of Service: 09/20/23 Procedure(s): US pelvis w/ transvaginal Accession Number(s): [id number] cc: Norbert Vega D.O.; Darshan Watts M.D. The [place] [id number] Patient Name: LB SANON MRN: [id number] date: 1985 Sex: F Assigned Patient Location: US Current Patient Location: US Accession/Order Number: [id number] Exam Date: 09/20/2023 11:42 Report Date: 09/20/2023 13:51 At the request of: NORBERT VEGA Procedure: US pelvis w/ transvaginal EXAMINATION: US pelvis w/ transvaginal HISTORY: pelvic pain in female R10.2 COMPARISON: 11/16/2022 FINDINGS: Transabdominal and transvaginal images The uterus is normal in size, contour and myometrial echotexture measuring 10.6 x 5.1 x 5.3 cm. No focal myometrial mass. The endometrium measures 5.8 mm, normal. The right ovary measures 3.8 x 2.6 x 2.1 cm. Normal color and Dopplerflow. Complex cystic structure measuring 1.7 cm with irregular thickened wallbut no internal vascularity The left ovary measures 2.7 x 1.6 x 2.0 cm. Normal color and Doppler flow No free fluid US/US pelvis w/ transvaginal IMPRESSION: Complex thick-walled left ovarian cyst measuring 1.7 cm Electronically authenticated by: PEREZ DURBIN Date: 09/20/2023 13:51 Dictated By: Perez Durbin M.D. Signed By:09/20/23 1354 DD/ 1351 TD/TT: Operations Administrative Assistant: us Norbert Silvia DO [facility] Final Result documented in this encounter Visit Diagnoses Not on filedocumented in this encounter Care Teams Joint Cutter Machine Relationship Specialty Start Date End Date Darshan Watts MD [address] [place] [address] PCP - General Family Medicine 12/28/22 documented as of this encounter
--- OUTSIDE RECORDS SUMMARY | 2025-01-04 10:54 | XMS_ITS | Encounter Summary ---
Author Organization [facility] Address [address] [place] [address] Care Team Providers Care Cone Runner Name Role Phone Darshan Watts MD Primary Care Provider [phone] Encounter Details Date Type Department Care Team (Late st Contact Info) Description 10/10/2024 Abstract [facility] OB [address] [place] [address] Kannan Vega, DO [address] [place] [address] [place], [facility]11 Social History Tobacco Use Types Packs/Day Years [...] Description 01/08/2025 10:00 AM EDT Routine [facility] OB [address] [place] [address] Kannan Vega, DO [facility] [place], [facility]11 documented as of this encounter Visit Diagnoses Not on filedocumented in this encounter Care Teams Cone Runner Relationship Specialty Start Date End Date Darshan Watts MD [address] [place] [address] PCP - General Family Medicine 12/28/22 documented as of this encounter
--- OUTSIDE RECORDS SUMMARY | 2025-01-04 11:04 | XMS_ITS | CCD ---
Author Organization [facility] Team Providers Care Parts Cataloguer Name Role Phone Gloria Hayden Unavailable RAY [...] HOY ., DR KUMARI Primary Care Unavailable CHICO, DR PEREZ Luther Consulting Unavailable SILVIA ., DR TOUSSAINT Attending Unavailable SILVIA ., DR TOUSSAINT Consulting Unavailable HOY ., DR KUMARI Primary Care Unavailable CHICO, DR PEREZ Luther Consulting Unavailable SILVIA ., DR TOUSSAINT Admitting Unavailable SILVIA ., DR TOUSSAINT Attending Unavailable SILVIA ., DR TOUSSAINT Consulting Unavailable SILVIA ., DR TOUSSAINT Admitting Unavailable HOY ., DR KUMARI Primary Care Unavailable CHICO, DR PEREZ Luther Consulting Unavailable SILVIA ., [...] Unavailable Quoc Watts MD Primary Care Provider [phone] Norbert Vega Attending Unavailable Silvia, Norbert Admitting Unavailable Quoc Watts MD Primary Care Provider [phone] GEN KANG Attending Unavailable NORBERT VEGA R Referring Unavailable QUOC WATTS Primary Care Unavailable SILVIA, NORBERT R Referring Unavailable QUOC WATTS Primary Care Unavailable SILVIA, NORBERT R. Referring Unavailable QUOC WATTS Primary Care Unavailable Quoc Watts MD Primary Care Provider [phone] Quoc Watts MD Primary Care Provider [phone] JEREMY VEGAY Attending Unavailable SILVIA, NORBERT Attending Unavailable SILVIA, NORBERT Attending Unavailable SILVIA, NORBERT Attending Unavailable SILVIA, NORBERT Attending Unavailable SILVIA, NORBERT Attending Unavailable Allergies Allergy Classification Reported Allergen(s) Allergy Type Date of Onset Reaction(s) Facility (13 sources) Penicillin G Drug Allergy 10-31-19 25 Anaphylaxis [facility] Other (1 source) Cefaclor Drug Allergy [facility] Repository (6 sources) Penicillins; Translations: [PENICILLINS] Drug allergy (disorder) 01-26-20 16 [facility] Repository (20 sources) Penicillins Drug Intolerance 10-21-19 19 Unknown [facility] Healthcare Work Phone: (1 source) Penicillin Drug Allergy 11-21-19 23 [facility] Repository (1 source) Penicillins Propensity to adverse reactions to drug 10-21-19 19 [facility] (12 sources) Cefaclor Drug Allergy 10-31-19 25 Anaphylaxis [facility] Healthcare (12 sources) Sulfamethoxazole / Trimethoprim Drug Allergy 10-31-19 25 [facility] Medications Current Medications Medication Drug Class(es) Dates Sig (Normalized) Sig (Original) aspirin 81 mg delayed release oral tablet (20 sources) Platelet Aggregation Inhibitor, Nonsteroidal Anti-inflammatory Drug take 1 tablet by mouth in the morning aspirin 81 MG EC tablet Take 81 mg by mouth in the morning. Active aspirin 81 mg ch ewable tablet Chew 1 tablet (81 mg total) and swallow in the morning. Active 24 hr buPROPion hydrochloride 300 mg extended release oral tablet (20 sources) Aminoketone Start: 06-18-2024 take 1 tablet by mouth every twenty-four hours in the morning buPROPion XL (Wellbutrin XL) 300 MG 24 hr tablet Take 300 mg by mouth in the morning. 06/18/2024 Active cholecalciferol 0.025 mg oral capsule (20 sources) Vitamin D cholecalciferol (Vitamin D-3) 25 MCG (1000 UT) capsule Take by mouth Daily. Active take 1 tablet by mouth in the mo rning cholecalciferol 1,000 units tablet Take 1 tablet (1,000 Units total) by mouth in the morning. Active take 1 tablet by jackie th every twenty-four hours Vitamin D3 50 MCG (2000 UT) 1 tablet Ora lly Once a day Active citalopram 20 mg oral tablet (16 sources) Serotonin Reuptake Inhibitor Start: 06-28-2024 End: 07-28-2024 take 1 tablet by mouth once daily citalopram (CeleXA) 20 MG tablet Indications: Anxiety, generalized (CMS/HCC) , HERNANDEZ (generalized anxiety disorder) (CMS/HCC) Take 1 tablet (20 mg) by mouth Daily 30 tablet 06/28/2024 07/28/2024 Discontinued DHEA 50 MG (1 source) DHEA 50 MG take 2 Orally daily Active Fish Oils (20 sources) take 1 capsule by mouth once [...] tablet Orally Once a day Active omega 2-qow-rqr-fish oil (Fish OiL) 300-1,000 mg capsule (3 sources) take 300-1000 mg by mouth once daily omega 5-llk-mqo-fish oil (Fish OiL) 300-1,000 mg capsule Take 1 capsule by mouth once daily. Active polysaccharide iron complex 391 mg oral capsule (5 sources) Start: 10-30-2024 End: 11-29-2024 take 1 capsule by mouth once daily iron polysaccharides (ProFe) 391.3 (180 Fe) MG capsule Indications: Anemia during in second trimester Take 1 capsule (391.3 mg) by mouth Daily 30 capsule 6 10/30/2024 11/29/2024 Active Start: 09-15-2023 End: 12-24-2023 take 1 capsule [...] source) Active MV-Min-Fe Fum-FA-DHA ( 1 PO) (20 sources) MV-Min- Fe Fum-FA-DHA ( 1 PO) [...] 06/30/2024 Active ubidecarenone 30 mg oral capsule (20 sources) take 1 capsule by mouth once daily co-enzyme Q-10 30 MG capsule Take 30 mg by mouth Daily Active take 1 capsule by mo ut once in the morning coenzyme Q10 50 mg capsule Take 1 capsul e (50 mg total) by mouth in the morning. Active 24 hr venlafaxine 37.5 mg extended release oral capsule (12 sources) Serotonin and Norepinephrine Reuptake Inhibitor Start: 11-01-2024 End: 11-01-2025 take 1 capsule by mouth once daily venlafaxine XR (Effexor XR) 37.5 MG 24 hr capsule Indications: Anxiety, generalized (CMS/HCC) Take 1 capsule (37.5 mg) by mouth Daily Do not crush or chew. 30 capsule 2 11/01/2024 11/01/2025 Active Vitamin C 500 MG (1 source) [...] Discontinued (Other) progesterone 100 mg oral capsule (6 sources) Progesterone Start: 10-14-2023 End: 10-13-2024 take [...] morning. Active simvastatin 40 mg oral tablet (20 sources) HMG-CoA Reductase Inhibitor Start: 06-09-2023 End: 06-28-2024 take 1 tablet by mouth at bedtime simvastatin (Zocor) 40 MG tablet Take 40 mg by mouth at bedtime. 06/09/2023 06/28/2024 Discontinued (Other) End: 06-28-2024 Simvastatin 20 MG/5ML suspen lashawn Simvastatin 06/28/2024 Discontinued (Other) Problems Active Problems Problem Classification Problem Date Documented Date Episodic/Chronic Allergic reactions (1 source) Unspecified contact dermatitis, unspecified cause Episodic Anxiety disorders (20 sources) Generalized anxiety disorder; Translations: [Generalized anxiety disorder] Onset: 01-15-2023 01-15-2023 Chronic Menstrual disorders (9 sources) Excessive and frequent menstruation with irregular cycle; Translations: [Irregular menstruation, unspecified] Onset: 06-22-2022 Chronic Mood disorders (4 sources) Major depressive disorder, single episode, unspecified; Translations: [Mild major depression, single episode] Onset: 04-19-2018 04-19-2018 Chronic Other complications of (2 sources) Anemia of ; Translations: [Anemia complicating , second trimester] 11-27-2024 Chronic Other complications of (7 sources) Multigravida of advanced maternal age; Translations: [Supervision of elderly multigravida, second trimester] Onset: 10-09-2024 10-09-2024 Episodic Other complications of (2 sources) Supervision of elderly multigravida, second trimester; Translations: [Supervision of elderly multigravida, second trimester] Onset: 10-09-2024 Episodic Other female genital disorders (4 sources) Abnormal uterine and vaginal bleeding, unspecified; Translations: [ABNORMAL UTERINE VAGINAL BLEED UNS] Onset: 02-18-2022 Chronic Other and delivery including normal (14 sources) ; Translations: [Encounter for supervision of normal , unspecified, unspecified trimester] 07-28-2024 Episodic Other screening for suspected conditions (not mental disorders or infectious disease) (1 source) Abnormal findings on diagnostic imaging of other specified body structures; Translations: [ABNORML FIND DX IMG OTH BODY STRUC] Onset: 11-22-2022 Chronic Other screening for suspected conditions (not mental disorders or infectious disease) (7 sources) Alpha-fetoprotein blood test status; Translations: [Encounter for screening for raised alphafetoprotein level] Onset: 10-09-2024 09-04-2024 Episodic Ovarian cyst (2 sources) Unspecified ovarian cyst, left side; Translations: [Other ovarian cyst, left side] Onset: 02-19-2022 Episodic Previous (1 source) Maternal care for unspecified type scar from previous delivery; Translations: [Maternal care for unspecified type scar from previous delivery] Onset: 11-07-2024 Episodic Residual codes; unclassified (2 sources) Gestation period, 16 weeks; Translations: [16 weeks gestation of ] 09-04-2024 Episodic Residual codes; unclassified (2 sources) Gestation period, 20 weeks; Translations: [20 weeks gestation of ] 10-02-2024 Episodic Residual codes; unclassified (2 sources) Gestation period, 28 weeks; Translations: [28 weeks gestation of ] 11-27-2024 Episodic Residual codes; unclassified (2 sources) Gestation period, 30 weeks; Translations: [30 weeks gestation of ] 12-11-2024 Episodic Residual codes; unclassified (2 sources) Gestation period, 32 weeks; Translations: [32 weeks gestation of ] 12-26-2024 Episodic Unclassified (1 source) CONTACT W/AND (SUSP) EXPOS COVID-19; Translations: [CONTACT W/AND (SUSP) EXPOS COVID-19] Onset: 05-11-2022 Unclassified (1 source) Advanced Maternal Age Onset: 10-09-2024 Unclassified (1 source) Hx C/S x4 Onset: 10-09-2024 Past or Other Problems Problem Classification Problem [...] Range Facility Urinalysis macro (dipstick) panel (U)on 12-26-2024 Bilirubin, UA Negative Negative - 4(70) +++ mg/dL [facility] Blood, UA Negative Negative - 50 Doroteo/mcL [facility] Clarity, UA Clear [facility] Color, UA Yellow [facility] Glucose, UA Negative Negative - 2000(110) ++++ mg/dL [facility] Interpretation and review of laboratory results Normal [facility] Ketones, UA Negative Negative - 160(16) ++++ mg/dL [facility] Leukocytes, UA Negative Negative - 500+++ Celina/mcL [facility] Nitrite, UA Negative Negative - Positive [facility] pH, UA 7 5 - 9 [facility] Protein, UA Negative Negative - 1999(20) ++++ mg/dL [facility] Spec Grav, UA 1.015 1 - 1.03 [facility] Urobilinogen, UA 0.2 0.2 - 12 mg/dL [facility] US OB BPP W NON-STRESS on 12-21-2024 [place] [address] Ultrasound Report Signed Patient: JANNIE ANTONIO MR#: [id number] : 1985 Acct:[id number] Age/Sex: 39 / F ADM Date: 12/21/24 Loc: US Attending Dr: Norbert Vega D.O. Ordering Physician: Norbert Vega D.O. Date of Service: 12/21/24 Procedure(s): US OB BPP w non-stress Accession Number(s): [id number] cc: Norbert Vega D.O.; Quoc Watts M.D. The [place] [address] Patient Name: JANNIE ANTONIO MRN: [id number] date: 1985 Sex: F Assigned Patient Location: [facility] Current Patient Location: Accession/Order Number: [id number] Exam Date: 12/21/2024 11:37 Report Date: 12/21/2024 [...] Metzger M.D. 12/21/2024 11:39 AM Dictation Location: [place] [address] Electronically authenticated by: [id number] Y Date: 12/21/2024 11:39 Dictated By: Jonah Metzger M.D. Signed By: 12/21/24 1141 DD/ 1139 TD/TT: Diesel Locomotive Firer: [facility] Radiology, Radiologist, MD - 12/21/2024 [place] [address] Ultrasound Report Signed Patient: JANNIE ANTONIO MR#: [id number] : 1985 Acct:[id number] Age/Sex: 39 / F ADM Date: 12/21/24 Loc: US Attending Dr: Norbert Vega D.O. Ordering Physician: Norbert Vega D.O. Date of Service: 12/21/24 Procedure(s): US OB BPP w non-stress Accession Number(s): [id number] cc: Norbert Vega D.O.; Quoc Watts M.D. The [place] [id number] Patient Name: JANNIE ANTONIO MRN: [facility]:[id number] date: 1985 Sex: F Assigned Patient Location: [facility] Current Patient Location: Accession/Order Number: [id number] Exam Date: 12/21/2024 11:37 Report Date: 12/21/2024 [...] Metzger M.D. 12/21/2024 11:39 AM Dictation Location: [place] [address] Electronically authenticated by: [id number] Y Date: 12/21/2024 11:39 Dictated By: Jonah Metzger M.D. Signed By: 12/21/24 1141 DD/ 1139 TD/TT: Diesel Locomotive Firer: [facility] Radiology Study observation (narrative) [facility] US OB BPP W NON-STRESS Ordered By: Radiologist Radiology on 12-21-2024 [facility] Work Phone: US OB GROWTHon 12-21-2024 [place] [address] Ultrasound Report Signed Patient: JANNIE ANTONIO MR#: [id number] : 1985 Acct:[id number] Age/Sex: 39 / F ADM Date: 12/21/24 Loc: US Attending Dr: Norbert Vega D.O. Ordering Physician: Norbert Vega D.O. Date of Service: 12/21/24 Procedure(s): US OB growth Accession Number(s): [id number] cc: Norbert Vega D.O.; Quoc Watts M.D. [place] [id number] Patient Name: JANNIE ANTONIO MRN: [id number] date: 1985 Sex: F Assigned Patient Location: [facility] Current Patient Location: Accession/Order Number: [id number] Exam Date: 12/21/2024 11:39 Report Date: 12/21/2024 [...] Metzger M.D. 12/21/2024 11:41 AM Dictation Location: [place] [address] Electronically authenticated by: [id number] Y Date: 12/21/2024 11:41 Dictated By: Jonah Metzger M.D. Signed By: 12/21/24 1143 DD/ 1141 TD/TT: Diesel Locomotive Firer: [facility] Radiology, Radiologist, - 12/21/2024 [place] [address] Ultrasound Report Signed Patient: JANNIE ANTONIO MR#: [id number] : 1985 Acct:[id number] Age/Sex: 39 / F ADM Date: 12/21/24 Loc: US Attending Dr: Norbert Vega D.O. Ordering Physician: Norbert Vega D.O. Date of Service: 12/21/24 Procedure(s): US OB growth Accession Number(s): [id number] cc: Norbert Vega D.O.; Quoc Watts M.D. [facility] [place] [address] Patient Name: JANNIE ANTONIO MRN: [facility]:[id number] date: 1985 Sex: F Assigned Patient Location: [facility] Current Patient Location: Accession/Order Number: [id number] Exam Date: 12/21/2024 11:39 Report Date: 12/21/2024 [...] Metzger M.D. 12/21/2024 11:41 AM Dictation Location: [place] [address] Electronically authenticated by: [id number] Y Date: 12/21/2024 11:41 Dictated By: Jonah Metzger M.D. Signed By: 12/21/24 1143 DD/ 1141 TD/TT: Diesel Locomotive Firer: [facility] Radiology Study observation (narrative) [facility] US OB GROWTHOrdered By: Suleman ologphillip Radiology on 12-21-2024 [facility] Work Phone: US OB FOLLOW UP TRANSABDOMIN AL APPROACHon 12-11-2024 US OB FOLLOW UP TRANSABDOMINAL APPROACH EXAM: US OB FOLLOW UP TRANSABDOMINAL APPROACH [...] II, MD, PHD at 13-Dec-2024 08:39:30 AM [facility] Normal Not Available Comment on above: Order Comment: US OB SCAN FOR GROWTH Estimated Date of Delivery: 02/17/25 Gestational Age as of 11/27/2024: 28w2d Urinalysis macro (dipstick) panel (U)on 12-11-2024 Bilirubin, UA Negative Negative - 4(70) +++ mg/dL [facility] Blood, UA Positive Negative - 50 Doroteo/mcL [facility] Comment on above: Moderate Clarity, UA Clear [facility] Color, UA Yellow [facility] Glucose, UA Negative Negative - 1999(110) ++++ mg/dL [facility] Interpretation and review of laboratory results Abnormal [facility] Ketones, UA Negative Negative - 160(16) ++++ mg/dL [facility] Leukocytes, UA Negative Negative - 500+++ Celina/mcL [facility] Nitrite, UA Negative Negative - Positive [facility] pH, UA 6 5 - 9 [facility] Protein, UA Negative Negative - 2000(20) ++++ mg/dL [facility] Spec Grav, UA 1.005 1 - 1.03 [facility] Urobilinogen, UA 0.2 0.2 - 12 mg/dL [facility] UA (CLEAN/CATCH) MICROSC OPIC IF INDICATEon 12-09-2024 BILIRUBIN URINE Negative NEGATIVE [facility] BLOOD URINE LARGE Abnormal NEGATIVE [facility] Clarity (U) SL CLOUDY CLEAR [facility] Color (U) YELLOW YELLOW [facility] GLUCOSE URINE UA Negative NEGATIVE mg/dL [facility] Interpretation and review of laboratory results Abnormal [facility] Ketones Ql (U) 15 mg/dL Abnormal NEGATIVE [facility] Leukocyte esterase Test strip Ql (U) Negative NEGATIVE [facility] NITRITE URINE Negative NEGATIVE [facility] pH (U) 6.0 [pH] 5.0 - 9.0 [facility] Protein (U) [Mass/Vol] 100 mg/dL Abnormal NEG/TRACE NO [facility] SPECIFIC GRAVITY URINE >=1.030 Abnormal 1.005 - 1.025 [facility] URINE MICROSCOPIC INDICATED YES [facility] UROBILINOGEN URINE 1.0 EU/dL 0.2 - 1.0 EU/dL [facility] (CLEAN/CATCH) ENVIRONMENTAL SERVICES SUPERVISOR/LA RO IF IND.on 11-30-2024 BILIRUBIN URINE Negative NEGATIVE [facility] BLOOD URINE Negative NEGATIVE [facility] Clarity (U) CLEAR CLEAR [facility] Color (U) LT. YELLOW YELLOW [facility] GLUCOSE URINE UA Negative NEGATIVE mg/dL [facility] Ketones Ql (U) Negative NEGATIVE mg/dL [facility] Leukocyte esterase Test strip Ql (U) Negative NEGATIVE [facility] NITRITE URINE Negative NEGATIVE [facility] pH (U) 6.5 [pH] 5.0 - 9.0 [facility] PROTEIN URINE Negative NEG/TRACE mg/dL [facility] SPECIFIC GRAVITY URINE 1.010 1.005 - 1.025 [facility] URINE MICROSCOPIC INDICATED NO [facility] UROBILINOGEN URINE 0.2 EU/dL 0.2 - 1.0 EU/dL [facility] Urinalysis macro (dipstick) panel (U)on 11-27-2024 Bilirubin, UA Negative Negative - 4(70) +++ mg/dL [facility] Blood, UA Positive Negative - 50 Doroteo/mcL [facility] Comment on above: trace Clarity, UA Clear [facility] Color, UA Yellow [facility] Glucose, UA Negative Negative - 1999(110) ++++ mg/dL [facility] Interpretation and review of laboratory results Abnormal [facility] Ketones, UA Positive Negative - 160(16) ++++ mg/dL [facility] Comment on above: trace Leukocytes, UA Trace Negative - 500+++ Celina/mcL [facility] Nitrite, UA Negative Negative - Positive [facility] pH, UA 5.5 5 - 9 [facility] Protein, UA Positive Negative - 2000(20) ++++ mg/dL [facility] Comment on above: 30 Spec Grav, UA 1.025 1 - 1.03 [facility] Urobilinogen, UA 0.2 0.2 - 12 mg/dL [facility] RECURRENT VAGINITIS (HTRX)on 10-03-2024 ATOPOBIUM VAGINAE 0 [facility] ATOPOBIUM VAGINAE Not detected [facility] BVAB 2,3 (BACTERIAL VAGINOSIS ASSOCIATED BACTERIA 2, 3); MOBILUNCUS SPP 0 [facility] BVAB 2,3 (BACTERIAL VAGINOSIS ASSOCIATED BACTERIA 2, 3); MOBILUNCUS SPP Not detected [facility] JAYRO ALBICANS, PARAPSILOSIS, TROPICALIS 0 [facility] JAYRO ALBICANS, PARAPSILOSIS, TROPICALIS Not detected [facility] JAYRO GLABRATA 0 [facility] JAYRO GLABRATA Not detected [facility] JAYRO KRUSEI 0 [facility] JAYRO KRUSEI Not detected [facility] CHLAMYDIA TRACHOMATIS 0 [facility] CHLAMYDIA TRACHOMATIS Not detected [facility] GARDNERELLA VAGINALIS 0 [facility] GARDNERELLA VAGINALIS Not detected [facility] MEGASPHAERA (TYPES 1, 2) 0 [facility] MEGASPHAERA (TYPES 1, 2) Not detected [facility] MYCOPLASMA GENITALIUM 0 [facility] MYCOPLASMA GENITALIUM Not detected [facility] NEISSERIA GONORRHOEAE 0 [facility] NEISSERIA GONORRHOEAE Not detected [facility] TRICHOMONAS VAGINALIS 0 [facility] TRICHOMONAS VAGINALIS Not detected N [facility] Urinalysis macro (dipstick) panel (U)on 10-02-2024 Bilirubin, UA Negative Negative - 4(70) +++ mg/dL [facility] Blood, UA Positive Negative - 50 Doroteo/mcL [facility] Comment on above: trace-intact Clarity, UA Clear [facility] Color, UA Yellow [facility] Glucose, UA Negative Negative - 1999(110) ++++ mg/dL [facility] Interpretation and review of laboratory results Abnormal [facility] Ketones, UA Negative Negative - 160(16) ++++ mg/dL [facility] Leukocytes, UA Trace Negative - 500+++ Celina/mcL [facility] Nitrite, UA Negative Negative - Positive [facility] pH, UA 7 5 - 9 [facility] Protein, UA Negative Negative - 1999(20) ++++ mg/dL [facility] Spec Grav, UA 1.015 1 - 1.03 [facility] Urobilinogen, UA 0.2 0.2 - 12 mg/dL [facility] AFP, SERUM, OPEN SPINA BIFID Aon 09-16-2024 AFP MOM 0.89 . [facility] AFP VALUE 35.2 ng/mL . [facility] COMMENT: Comment . [facility] Comment on above: Patricia Lozano , Ph.D., [facility] Director References: Available Upon Request. Multiples Of Median Cutoffs For AFP Elevations Zhao 2.5 Black 2.8 IDD 2.0 Twins 4.5 Abbreviation Definitions IDD - Insulin Dep Diabetes OSBR - Open Spina Bifida Risk For further inquiries contact [facility] at [phone]. This test was developed and its performance characteristics determined by [employer]. It has not been cleared or approved by the Food and Drug Administration. Performed at: [facility] [place], [place] [id number] [employer] Docent: Charlotte Ramos [facility], Phone: [phone] GEST. AGE ON COLLECTION DATE 17.6 . weeks [facility] GESTAT. AGE BASED ON LMP . [facility] Comment on above: Recalculations are n ot recommended when gestational dating by LMP and ultrasound are within 10 days. INSULIN DEP DIABETES No . [facility] INTERPRETATION Comment . [facility] Comment on above: Interpretation: Scre en Negative This result is screen negative for OSB. The AFP MoM calculated is based on the gestational age provided. MS-AFP can identify up to 80% of open neural tube defects. Closed neural tube defects and some open defects may not be detected by this test. This test does not screen for Down Syndrome or Trisomy 18. If screening for Down Syndrome or Trisomy 18 is desired, contact [facility] to discuss available options. The [employer] recommends amniocentesis be offered to women age 35 and older. [age] [facility] MULTIPLE GESTATION No . [facility] OSBR RISK [address] [place] [id number] . [facility] RACE . [facility] RESULTS Report . [facility] TEST RESULTS: Negative . [facility] WEIGHT 158 . lbs [facility] N N LMP [id number] 2 16 N 1 158 N N N N N White/ [facility] Urinalysis macro (dipstick) panel (U)on 09-04-2024 Bilirubin, UA Negative Negative - 4(70) +++ mg/dL [facility] Blood, UA Negative Negative - 50 Doroteo/mcL [facility] Clarity, UA Clear [facility] Color, UA Yellow [facility] Glucose, UA Negative Negative - 1999(110) ++++ mg/dL [facility] Interpretation and review of laboratory results Abnormal [facility] Ketones, UA Negative Negative - 160(16) ++++ mg/dL [facility] Leukocytes, UA Negative Negative - 500+++ Celina/mcL [facility] Nitrite, UA Negative Negative - Positive [facility] pH, UA 6.5 5 - 9 [facility] Protein, UA Negative Negative - 1999(20) ++++ mg/dL [facility] Spec Grav, UA 1.02 1 - 1.03 [facility] Urobilinogen, UA 0.2 0.2 - 12 mg/dL [facility] DRUG SCREEN RAPID (URINE )on 07-31-2024 AMPHETAMINE SCREEN URINE Negative NEGATIVE [facility] BARBITURATES SCREEN URINE Negative NEGATIVE [facility] BENZODIAZEPINES SCREEN URINE Negative NEGATIVE [facility] BUPRENORPHINE SCREEN URINE Negative NEGATIVE [facility] Comment on above: DRUG CLASS TEST [...] 300 ng/mL CANNABINOID SCREEN URINE Negative NEGATIVE [facility] COCAINE SCREEN URINE Negative NEGATIVE [facility] METHADONE SCREEN URINE Negative NEGATIVE NO MS [facility] METHAMPHETAMINES SCREEN URINE Negative NEGATIVE [facility] OPIATE SCREEN URINE Negative NEGATIVE [facility] OXYCODONE SCREEN URINE Negative NEGATIVE NO [facility] PHENCYCLIDINE SCREEN URINE Negative NEGATIVE [facility] TRICYCLIC ANTIDEPRESSANT URINE Negative NEGATIVE [facility] Urine Cultureon 07-31-2024 Bacteria identified Cx Nom (U) 20,000 colonies/ml mixed bacterial skin contaminants 2 Days PERFORMED BY: [address] [place] [address] PATHOLOGIST SMOCKING MACHINE OPERATOR NAIDA GARZON M.D. Normal [facility] Comment on above: Performed By: #### C UU #### [facility] [address] BOX TESTon 07-28-2024 BOX TEST SENT OUT [facility] BOX1 [facility] BOX2 07/28/24 [facility] UNITY BOX [facility] HCG ( test) Ql (U)o n 07-28-2024 Interpretation and review of laboratory results Abnormal [facility] Preg Test, Ur Positive Negative [facility] Urinalysis macro (dipstick) panel (U)on 07-28-2024 Bilirubin, UA Negative Negative - 4(70) +++ mg/dL [facility] Blood, UA Positive Negative - 50 Doroteo/mcL [facility] Clarity, UA Clear [facility] Color, UA Yellow [facility] Glucose, UA Negative Negative - 1999(110) ++++ mg/dL [facility] Interpretation and review of laboratory results Abnormal [facility] Ketones, UA Negative Negative - 160(16) ++++ mg/dL [facility] Leukocytes, UA Negative Negative - 500+++ Celina/mcL [facility] Nitrite, UA Negative Negative - Positive [facility] pH, UA 6.5 5 - 9 [facility] Protein, UA Trace Negative - 1999(20) ++++ mg/dL [facility] Spec Grav, UA 1.025 1 - 1.03 [facility] Urobilinogen, UA 0.2 0.2 - 12 mg/dL [facility] TBH PREG QUANT HCGon 024 HCG QUANTITATIVE 62205 mIU/mL [facility] Comment on above: 5-50 0.2-1 WEEK 50-500 1-2 WEEKS 100-5,000 2-3 WEEKS 500-10,000 3-4 WEEKS 1,000-50,000 4-5 WEEKS 10,000-100,000 5-6 WEEKS 15,000-200,000 6-8 WEEKS 10,000-100,000 2[facility]on 024 HCG QUANTITATIVE 4062 mIU/mL [facility] Comment on above: 5-50 0.2-1 WEEK 50-500 1-2 WEEKS 100-5,000 2-3 WEEKS 500-10,000 3-4 WEEKS 1,000-50,000 4-5 WEEKS 10,000-100,000 5-6 WEEKS 15,000-200,000 6-8 WEEKS 10,000-100,000 [facility] P[facility] QUANT HCGon 024 HCG QUANTITATIVE 3108 mIU/mL [facility] Comment on above: 5-50 0.2-1 WEEK 50-500 1-2 WEEKS 100-5,000 2-3 WEEKS 500-10,000 3-4 WEEKS 1,000-50,000 4-5 WEEKS 10,000-100,000 5-6 WEEKS 15,000-200,000 6-8 WEEKS 10,000-100,000 2-3 MONTHS [facility] ALL CBC WITH AUTO DIFFon BASOPHILS ABSOLUTE AUTO 0.0 [facility] Basophils/100 WBC (Bld) 0.2 % 0.2 - 2.0 % [facility] Eosinophils/100 WBC (Bld) 0.8 % Low 0.9 - 7.0 % [facility] Erythrocyte distribution width (RBC) [Ratio] 13.4 % 11.0 - 15.0 % [facility] Hematocrit (Bld) [Volume fraction] 42.3 % 36.0 - 48.0 % [facility] Hemoglobin (Bld) [Mass/Vol] 13.6 g/dL 12.0 - 16.0 g/dL [facility] IMMATURE GRANULOCYTES ABS AUTO 0.02 [facility] Immature granulocytes/100 WBC (Bld) 0.3 % 0.0 - 0.5 % [facility] Interpretation and review of laboratory results Abnormal [facility] LYMPHOCYTES ABSOLUTE AUTO 1.7 [facility] Lymphocytes/100 WBC (Bld) 26.5 % 20 .5 - 60.0 % [facility] MCH (RBC) [Entitic mass] 30.1 pg 26. 7 - 34.0 pg [facility] MCHC (RBC) [Mass/Vol] 32.2 g/dL 29.9 - 35.2 g/dL [facility] MCV (RBC) [Entitic vol] 93.6 fL 81.0 - 99.0 fL [facility] MONOCYTES ABSOLUTE AUTO 0.5 [facility] Monocytes/100 WBC (Bld) 7.3 % 1.7 - 12.0 % [facility] NEUTROPHILS ABSOLUTE AUTO 4.3 [facility] Neutrophils/100 WBC (Bld) 64.9 % 43 .0 - 75.0 % [facility] Platelet mean volume (Bld) [Entitic vol] 10.8 fL 9.5 - 13.5 fL [facility] TB EO # 0.1 [facility] TB PLT [address] [facility] RBC 4.52 [facility] WBC 6.5 [facility] PROGESTERONEon 12-19-2022 Progesterone 9.6 ng/mL Normal [facility] Comment on above: Result Comment: Foll icular phase 0.1 - 0.9 Luteal phase 1.8 - 23.9 Ovulation phase 0.1 - 12.0 First trimester 11.0 - 44.3 Second trimester 25.4 - 83.3 Third trimester 58.7 - 214.0 Postmenopausal 0.0 - 0.1 Performed By: #### P DAXA #### [facility] [address] [place] [address] Dr. Josie Sanchez PROGESTERONEon 11-19-2022 Progesterone 6.3 ng/mL Normal [facility] Comment on above: Result Comment: Foll icular phase 0.1 - 0.9 Luteal phase 1.8 - 23.9 Ovulation phase 0.1 - 12.0 First trimester 11.0 - 44.3 Second trimester 25.4 - 83.3 Third trimester 58.7 - 214.0 Postmenopausal 0.0 - 0.1 Performed By: #### P DAXA #### [facility] [address] [place] [address] Dr. Josie Sanchez PREG QUANT HCGon 11-18-2022 HCG QUANT <1 Normal [facility] Comment on above: Performed By: #### P REGQNT #### [facility] [address] [address] [address] Josie Sanchez HCG RANGE SEE BELOW [facility] Comment on above: Result Comment: 5-50 0.2-1 WEEK 50-500 1-2 WEEKS 100-5,000 2-3 WEEKS 500-10,000 3-4 WEEKS 1,000-50,000 4-5 WEEKS 10,000-100,000 5-6 WEEKS 15,000-200,000 6-8 WEEKS 10,000-100,000 2-3 MONTHS Performed By: #### P REGQNT #### [facility] [address] [place], [place] [address] Dr. Josie Sanchez US PELVIS AND TRANSVAGon [...] of a yolk sac as noted by medical office technologist. No significant free pelvic fluid is [...] by: RENE MEYERS Date: 2022-11-16 18:09 Normal [facility] DHEA SERUMon 11-11-2022 Dehydroepiandrosterone (DHEA) 335 ng/dL Normal 31-701 [facility] Comment on above: Performed By: #### E RILEY MEANS #### [facility] [address] [place], [place] [address] Dr. Josie Sanchez DHEA-SULFATEon 11-10-2022 DHEA-Sulfate 251.0 ug/dL Normal 57.3-279.2 [facility] Comment on above: Performed By: #### P REGQNT #### [facility] [address] [place], [place] [address] Dr. Josie Sanchez ESTRADIOLon 11-10-2022 Estradiol 66.1 pg/mL Normal [facility] Comment on above: Result Comment: Adul t Female: Follicular phase 12.5 - 166.0 Ovulation phase 85.8 - 498.0 Luteal phase 43.8 - 211.0 Postmenopausal <6.0 - 54.7 1st trimester 215.0 - >4300.0 [facility] ECLIA methodology Performed By: #### RILEY VALERIO #### [facility] [address] [place] [address] Dr. Josie Sanchez FSHon 11-10-2022 FSH 6.9 mIU/mL Normal [facility] Comment on above: Result Comment: Adul t Female: Follicular phase 3.5 - 12.5 Ovulation phase 4.7 - 21.5 Luteal phase 1.7 - 7.7 Postmenopausal 25.8 - 134.8 Performed By: #### P REGQNT #### [facility] [address] [place] [address] Dr. Josie Sanchez LUTEINIZING HORMONE (LH)on 0 11-10-2022 LH 9.9 mIU/mL Normal [facility] Comment on above: Result Comment: Adul t Female: Follicular phase 2.4 - 12.6 Ovulation phase 14.0 - 95.6 Luteal phase 1.0 - 11.4 Postmenopausal 7.7 - 58.5 Performed By: #### RILYE VALERIO #### [facility] [address] [place] [address] Dr. Josie Sanchez CBC AUTO DIFFon 11-09-2022 BASO # 0.0 103/ul Normal 0.0-0.1 [facility] Comment on above: Performed By: #### RILEY VALERIO #### [facility] [address] [place] [address] Dr. Josie Sanchez Basophils/100 WBC (Bld) 0.3 % Normal 0.2-2.0 [facility] Comment on above: Performed By: #### RILEY VALERIO #### [facility] [address] [place] [address] Dr. Josie Sanchez EO # 0.0 103/ul Normal 0.0-0.7 [facility] Comment on above: Performed By: #### RILEY VALERIO #### [facility] [address] [place] [address] Dr. Josie Sanchez Eosinophils/100 WBC (Bld) 0.5 % Critically low 0.9-7. 0 [facility] Comment on above: Performed By: #### RILEY VALERIO #### [facility] [address] [place] [address] Dr. Josie Sanchez Erythrocyte distribution width (RBC) [Ratio] 13.2 % Normal 11.0-15.0 [facility] Comment on above: Performed By: #### KIAN VALERIORO #### [facility] [address] [place] [address] Dr. Josie Sanchez Hematocrit (Bld) [Volume fraction] 41.8 % Normal 36.0-48.0 [facility] Comment on above: Performed By: #### KIAN VALERIORO #### [facility] [address] [place] [address] Dr. Josie Sanchez Hemoglobin (Bld) [Mass/Vol] 13.7 g/dL Normal 12.0-16.0 [facility] Comment on above: Performed By: #### RILEY VALERIO #### [facility] [address] [place] [address] Dr. Josie Sanchez IG # 0.02 10e3/ul Normal 0.00-0.03 [facility] Comment on above: Performed By: #### KIAN VALERIORO #### [facility] [address] [place] [address] Dr. Josie Sanchez IG % 0.3 % Normal 0.0-0.5 [facility] Comment on above: Performed By: #### RILEY VALERIO #### [facility] [address] [place] [address] Dr. Josie Sanchez LYMPH # 1.2 103/ul Normal 1.2-3.8 [facility] Comment on above: Performed By: #### RILEY VALERIO #### [facility] [address] [place] [address] Dr. Josie Sanchez Lymphocytes/100 WBC (Bld) 18.4 % Critically low 20.5-6 0.0 [facility] Comment on above: Performed By: #### ROBERT VALERIOICRO #### [facility] [address] [place] [address] Dr. Josie Sanchez MANUAL DIFF REQ NO Normal [facility] Comment on above: Performed By: #### Clyde MEANS UMICRO #### [facility] [address] [place] [address] Dr. Josie Sanchez MCH (RBC) [Entitic mass] 29.5 pg Normal 26.7-34.0 [facility] Comment on above: Performed By: #### Clyde MEANS UMICRO #### [facility] [address] [place] [address] Dr. Josie Sanchez MCHC (RBC) [Mass/Vol] 32.8 g/dL Normal 29.9-35.2 [facility] Comment on above: Performed By: #### ROBERT VALERIOICRO #### [facility] [address] [place] [address] Dr. Josie Sanchez MCV (RBC) [Entitic vol] 89.9 fL Normal 81.0-99.0 [facility] Comment on above: Performed By: #### Clyde MEANS UMICRO #### [facility] [address] [place] [address] Dr. Josie Sanchez MONO # 0.3 103/ul Normal 0.3-0.8 [facility] Comment on above: Performed By: #### Clyde MEANS UMICRO #### [facility] [address] [place] [address] Dr. Josie Sanchez Monocytes/100 WBC (Bld) 5.1 % Normal 1.7-12.0 [facility] Comment on above: Performed By: #### Clyde MEANS UMICRO #### [facility] [address] [place] [address] Dr. Josie Sanchez NEUT # 4.8 103/ul Normal 1.4-6.5 [facility] Comment on above: Performed By: #### ROBERT VALERIOICRO #### [facility] [address] [place] [address] Dr. Josie Sanchez Neutrophils/100 WBC (Bld) 75.4 % Critically high 43.0- 75.0 [facility] Comment on above: Performed By: #### Clyde MEANS UMICRO #### [facility] [address] [place] [address] Dr. Josie Sanchez Platelet mean volume (Bld) [Entitic vol] 9.8 fL Normal 9.5-13.5 [facility] Comment on above: Performed By: #### Clyde MEANS UMICRO #### [facility] [address] [place] [address] Dr. Josie Sanchez PLT 256 103/ul Normal 150-450 [facility] Comment on above: Performed By: #### Clyde MEANS UMICRO #### [facility] [address] [place] [address] Dr. Josie Sanchez RBC 4.65 106/ul Normal 4.20-5.40 [facility] Comment on above: Performed By: #### Clyde MEANS UMICRO #### [facility] [address] [place] [address] Dr. Josie Sanchez WBC 6.4 103/ul Normal 4.0-11.0 [facility] Comment on above: Performed By: #### Clyde MEANS UMICRO #### [facility] [address] [place] [address] Dr. Josie Sanchez FERRITINon 11-09-2022 Ferritin [Mass/Vol] 42.0 ng/mL Normal 6.2-137.0 [facility] Comment on above: Performed By: #### Clyde MEANS UMICRO #### [facility] [address] [place] [address] Dr. Josie Sanchez FREE T4on 11-09-2022 Free T4 [Mass/Vol] 0.87 ng/dL Normal 0.76-1.46 [facility] Comment on above: Performed By: #### Clyde MEANS UMICRO #### [facility] [address] [place] [address] Dr. Josie Sanchez GLYCOHEMOGLOBIN A1Con 2022 ADA RECOMMENDATION SEE BELOW Normal [facility] Comment on above: Result Comment: ADA RECOMMENDED LIMIT 4.0 - 6.0 ADA THERAPEUTIC TARGET < 7.0 ACTION SUGGESTED > 7.0 Performed By: #### KIAN VALERIORO #### [facility] [address] [place] [address] Dr. Josie Sanchez Glucose [Mass/Vol] 100 mg/dL Normal [facility] Comment on above: Performed By: #### KIAN VALERIORO #### [facility] [address] [place] [address] Dr. Josie Sanchez HbA1c (Bld) [Mass fraction] 5.1 % Normal 4.5-6.2 [facility] Comment on above: Performed By: #### KIAN VALERIORO #### [facility] [address] [place] [address] Dr. Josie Sanchez PREG QUANT HCGon 11-09-2022 HCG QUANT <1 Normal [facility] Comment on above: Performed By: #### KIAN VALERIORO #### [facility] [address] [place] [address] Dr. Josie Sanchez HCG RANGE SEE BELOW Normal [facility] Comment on above: Result Comment: 5-50 0.2-1 WEEK 50-500 1-2 WEEKS 100-5,000 2-3 WEEKS 500-10,000 3-4 WEEKS 1,000-50,000 4-5 WEEKS 10,000-100,000 5-6 WEEKS 15,000-200,000 6-8 WEEKS 10,000-100,000 2-3 MONTHS Performed By: #### KIAN VALERIORO #### [facility] [address] [place] [address] Dr. Josie Sanchez TSHon 11-09-2022 TSH 2.163 uIU/mL Normal 0.358-3.740 [facility] Comment on above: Performed By: #### KIAN VALERIORO #### [facility] [address] [place] [address] Dr. Josie Sanchez PROGESTERONEon 08-29-2022 Progesterone 7.3 ng/mL Normal [facility] Comment on above: Result Comment: Foll icular phase 0.1 - 0.9 Luteal phase 1.8 - 23.9 Ovulation phase 0.1 - 12.0 First trimester 11.0 - 44.3 Second trimester 25.4 - 83.3 Third trimester 58.7 - 214.0 Postmenopausal 0.0 - 0.1 Performed By: #### P ROGES #### [facility] [address] [place] [address] Dr. Josie Sanchez INSULINon 08-13-2022 Insulin 12.5 uIU/mL Normal 2.6-24.9 [facility] Comment on above: Performed By: #### P REGQNT #### [facility] [address] [place] [address] Dr. Josie Sanchez CBC AUTO DIFFon 08-12-2022 BASO # 0.0 103/ul Normal 0.0-0.1 [facility] Comment on above: Performed By: #### Clyde MEANS UMICRO #### [facility] [address] [place] [address] Dr. Josie Sanchez Basophils/100 WBC (Bld) 0.2 % Normal 0.2-2.0 [facility] Comment on above: Performed By: #### Clyde MEANS UMICRO #### [facility] [address] [place] [address] Dr. Josie Sanchez EO # 0.1 103/ul Normal 0.0-0.7 [facility] Comment on above: Performed By: #### Clyde MEANS UMICRO #### [facility] [address] [place] [address] Dr. Josie Sanchez Eosinophils/100 WBC (Bld) 0.8 % Critically low 0.9-7. 0 [facility] Comment on above: Performed By: #### Clyde MEANS UMICRO #### [facility] [address] [place] [address] Dr. Josie Sanchez Erythrocyte distribution width (RBC) [Ratio] 14.0 % Normal 11.0-15.0 [facility] Comment on above: Performed By: #### RILEY VALERIO #### [facility] [address] [place] [address] Dr. Josie Sanchez Hematocrit (Bld) [Volume fraction] 39.5 % Normal 36.0-48.0 [facility] Comment on above: Performed By: #### RILEY VALERIO #### [facility] [address] [place] [address] Dr. Josie Sanchez Hemoglobin (Bld) [Mass/Vol] 12.7 g/dL Normal 12.0-16.0 [facility] Comment on above: Performed By: #### RILEY VALERIO #### [facility] [address] [place] [address] Dr. Josie Sanchez IG # 0.02 10e3/ul Normal 0.00-0.03 [facility] Comment on above: Performed By: #### RILEY VALERIO #### [facility] [address] [place] [address] Dr. Josie Sanchez IG % 0.3 % Normal 0.0-0.5 [facility] Comment on above: Performed By: #### RILEY VALERIO #### [facility] [address] [place] [address] Dr. Josie Sanchez LYMPH # 1.6 103/ul Normal 1.2-3.8 [facility] Comment on above: Performed By: #### RILEY VALERIO #### [facility] [address] [place] [address] Dr. Josie Sanchez Lymphocytes/100 WBC (Bld) 26.9 % Normal 20.5-60.0 [facility] Comment on above: Performed By: #### KIAN VALERIORO #### [facility] [address] [place] [address] Dr. Josie Sanchez MANUAL DIFF REQ NO Normal [facility] Comment on above: Performed By: #### KIAN VALERIORO #### [facility] [address] [place] [address] Dr. Josie Sanchez MCH (RBC) [Entitic mass] 28.3 pg Normal 26.7-34.0 [facility] Comment on above: Performed By: #### Clyde MEANS, UMICRO #### [facility] [address] [place] [address] Dr. Josie Sanchez MCHC (RBC) [Mass/Vol] 32.2 g/dL Normal 29.9-35.2 [facility] Comment on above: Performed By: #### Clyde MEANS, UMICRO #### [facility] [address] [place] [address] Dr. Josie Sanchez MCV (RBC) [Entitic vol] 88.0 fL Normal 81.0-99.0 [facility] Comment on above: Performed By: #### Clyde MEANS, UMICRO #### [facility] [address] [place] [address] Dr. Josie Sanchez MONO # 0.4 103/ul Normal 0.3-0.8 [facility] Comment on above: Performed By: #### Clyde MEANS, UMICRO #### [facility] [address] [place] [address] Dr. Josie Sanchez Monocytes/100 WBC (Bld) 7.1 % Normal 1.7-12.0 [facility] Comment on above: Performed By: #### Clyde MEANS, UMICRO #### [facility] [address] [place] [address] Dr. Josie Sanchez NEUT # 3.8 103/ul Normal 1.4-6.5 [facility] Comment on above: Performed By: #### Clyde MEANS, UMICRO #### [facility] [address] [place] [address] Dr. Josie Sanchez Neutrophils/100 WBC (Bld) 64.7 % Normal 43.0-75.0 [facility] Comment on above: Performed By: #### Clyde MEANS, UMICRO #### [facility] [address] [place] [address] Dr. Josie Sanchez Platelet mean volume (Bld) [Entitic vol] 10.1 fL Normal 9.5-13.5 [facility] Comment on above: Performed By: #### RILEY VALERIO #### [facility] [address] [place] [address] Dr. Josie Sanchez PLT 211 103/ul Normal 150-450 [facility] Comment on above: Performed By: #### RILEY VALERIO #### [facility] [address] [place] [address] Dr. Josie Sanchez RBC 4.49 106/ul Normal 4.20-5.40 [facility] Comment on above: Performed By: #### RILEY VALERIO #### [facility] [address] [place] [address] Dr. Josie Sanchez WBC 5.9 103/ul Normal 4.0-11.0 [facility] Comment on above: Performed By: #### RILEY VALERIO #### [facility] [address] [place] [address] Dr. Josie Sanchez FREE THYROXINE INDEX T7on FTI 2.63 Normal 1.30-4.50 [facility] Comment on above: Performed By: #### RILEY VALERIO #### [facility] [address] [place] [address] Dr. Josie Sanchez T3U 35.0 % Normal 30.0-39.0 [facility] Comment on above: Performed By: #### RILEY VALERIO #### [facility] [address] [place] [address] Dr. Josie Sanchez T4 [Mass/Vol] 7.50 ug/dL Normal 4.80-13.90 [facility] Comment on above: Performed By: #### RILEY VALERIO #### [facility] [address] [place] [address] Dr. Josie Sanchez GLYCOHEMOGLOBIN A1Con 2022 ADA RECOMMENDATION SEE BELOW Normal [facility] Comment on above: Result Comment: ADA RECOMMENDED LIMIT 4.0 - 6.0 ADA THERAPEUTIC TARGET < 7.0 ACTION SUGGESTED > 7.0 Performed By: #### RILEY VALERIO #### [facility] [address] [place] [address] Dr. Josie Sanchez Glucose [Mass/Vol] 111 mg/dL Normal [facility] Comment on above: Performed By: #### RILEY VALERIO #### [facility] [address] [place] [address] Dr. Josie Sanchez HbA1c (Bld) [Mass fraction] 5.5 % Normal 4.5-6.2 [facility] Comment on above: Performed By: #### RILEY VALERIO #### [facility] [address] [place] [address] Dr. Josie Sanchez IRONon 08-12-2022 Iron [Mass/Vol] 40.0 ug/dL Critically low 50.0-170.0 [facility] Comment on above: Performed By: #### P REGQNT #### [facility] [address] [place] [address] Dr. Josie Sanchez LIPID PROFILEon 08-12-2022 CHOL-HDL RATIO NORM SEE BELOW Normal [facility] Comment on above: Result Comment: 3.3 - 4.4 LOW RISK 4.4 - 7.1 AVERAGE RISK 7.1 - 11.0 MODERATE RISK >11.0 HIGH RISK Performed By: #### P REGQNT #### [facility] [address] [place] [address] Dr. Josie Sanchez Cholesterol [Mass/Vol] 183 mg/dL Normal <=200 [facility] Comment on above: Performed By: #### P REGQNT #### [facility] [address] [place] [address] Dr. Josie Sanchez Cholesterol in HDL [Mass/Vol] 40 mg/dL Normal 40-60 [facility] Comment on above: Performed By: #### P REGQNT #### [facility] [address] [place] [address] Dr. Josie Sanchez Cholesterol in LDL [Mass/Vol] 131.0 mg/dL Normal [facility] Comment on above: Performed By: #### P REGQNT #### [facility] [address] [address] [address] Josie Sanchze Cholesterol.total/Choleste rol in HDL [Mass ratio] 4.6 {ratio} Normal [facility] Comment on above: Performed By: #### P REGQNT #### [facility] [address] [address] [address] Josie Sanchez HDL NORMAL > or = 60 mg/dl - LOW CARDIOVASCULAR RISK <40 mg/dl - HIGH CARDIOVASCULAR RISK Normal [facility] Comment on above: Performed By: #### P REGQNT #### [facility] [address] [address] [address] Josie Sanchez LDL CALC NORMAL SEE BELOW Normal [facility] Comment on above: Result Comment: <100 mg/dl OPTIMAL 100 - 129 mg/dl NEAR OR ABOVE OPTIMAL 130 - 159 mg/dl BORDERLINE HIGH 160 - 189 mg/dl HIGH >190 mg/dl VERY HIGH Performed By: #### P REGQNT #### [facility] [address] [address] [address] Josie Sanchez Triglyceride [Mass/Vol] 60 mg/dL Normal <=150 [facility] Comment on above: Performed By: #### P REGQNT #### [facility] [address] [address] [address] Josie Sanchez VLDL CALC 12.0 mg/dL Normal [facility] Comment on above: Performed By: #### P REGQNT #### [facility] [address] [address] [address] Josie Sanchez PROF 14(COMP METB)on 023 Albumin [Mass/Vol] 3.7 g/dL Normal 3.4-5.0 [facility] Comment on above: Performed By: #### RILEY VALERIO #### [facility] [address] [place] [address] Dr. Josie Sanchez Albumin/Globulin [Mass ratio] 0.9 {ratio} Normal [facility] Comment on above: Performed By: #### RILEY VALERIO #### [facility] [address] [address] [address] Josie Sanchez ALP [Catalytic activity/Vol] 131 U/L Critically high 46-116 [facility] Comment on above: Performed By: #### RILEY VALERIO #### [facility] [address] [place] [address] Dr. Josie Sanchez ALT [Catalytic activity/Vol] 23 U/L Normal 14-59 [facility] Comment on above: Performed By: #### RILEY VALERIO #### [facility] [address] [place] [address] Dr. Josie Sanchez Anion gap [Moles/Vol] 10.5 mmol/L Normal [facility] Comment on above: Performed By: #### RILEY VALERIO #### [facility] [address] [place] [address] Dr. Josie Sanchez AST [Catalytic activity/Vol] 18 U/L Normal 15-37 [facility] Comment on above: Performed By: #### RILEY VALERIO #### [facility] [address] [place] [address] Dr. Josie Sanchez Bilirubin [Mass/Vol] 0.7 mg/dL Normal 0.2-1.0 [facility] Comment on above: Performed By: #### RILEY VALERIO #### [facility] [address] [place] [address] Dr. Josie Sanchez Calcium [Mass/Vol] 8.7 mg/dL Normal 8.5-10.1 [facility] Comment on above: Performed By: #### RILEY VALERIO #### [facility] [address] [place] [address] Dr. Josie Sanchez Chloride [Moles/Vol] 103 mmol/L Normal 98-107 [facility] Comment on above: Performed By: #### RILEY VALERIO #### [facility] [address] [place] [address] Dr. Josie Sanchez CO2 [Moles/Vol] 30.1 mmol/L Normal 21.0-32.0 [facility] Comment on above: Performed By: #### RILEY VALERIO #### [facility] [address] [address] [address] Josie Sanchez Creatinine [Mass/Vol] 0.66 mg/dL Normal 0.55-1.02 [facility] Comment on above: Performed By: #### Clyde MEANS, UMICRO #### [facility] [address] [address] [address] Josie Sanchez EGFR-AF MALAYSIAN >60 Normal >=60 [facility] Comment on above: Performed By: #### E MIGUELANGEL, UMICRO #### [facility] [address] [address] [address] Josie Sanchez EGFR-NON AF MALAYSIAN >60 Normal >=60 [facility] Comment on above: Performed By: #### Clyde MEANS, UMICRO #### [facility] [address] [place] [address] Dr. Josie Sanchez Globulin (S) [Mass/Vol] 4.3 g/dL Normal [facility] Comment on above: Performed By: #### Clyde MEANS, UMICRO #### [facility] [address] [place] [address] Dr. Josie Sanchez Glucose [Mass/Vol] 90 mg/dL Normal 74-106 [facility] Comment on above: Performed By: #### Clyde MEANS, UMICRO #### [facility] [address] [place] [address] Dr. Josie Sanchez Potassium [Moles/Vol] 3.6 mmol/L Normal 3.5-5.1 [facility] Comment on above: Performed By: #### Clyde MEANS, UMICRO #### [facility] [address] [place] [address] Dr. Josie Sanchez Protein [Mass/Vol] 8.0 g/dL Normal 6.4-8.2 [facility] Comment on above: Performed By: #### Clyde MEANS, UMICRO #### [facility] [address] [address] [address] Josie Sanchez Sodium [Moles/Vol] 140 mmol/L Normal 136-145 [facility] Comment on above: Performed By: #### RILEY VALERIO #### [facility] [address] [place] [address] Dr. Josie Sanchez Urea nitrogen [Mass/Vol] 12.0 mg/dL Normal 7.0-18.0 [facility] Comment on above: Performed By: #### RILEY VALERIO #### [facility] [address] [place] [address] Dr. Josie Sanchez Urea nitrogen/Creatinine [Mass ratio] 18.2 mg/mg Normal [facility] Comment on above: Performed By: #### RILEY VALERIO #### [facility] [address] [place] [address] Dr. Josie Sanchez TSHon 08-12-2022 TSH 3.070 uIU/mL Normal 0.358-3.740 [facility] Comment on above: Performed By: #### P REGQNT #### [facility] [address] [place] [address] Dr. Josie Sanchez PREG QUANT HCGon 06-22-2022 HCG QUANT 1 mIU/mL Normal [facility] Comment on above: Performed By: #### RILEY VALERIO #### [facility] [address] [place] [address] Dr. Josie Sanchez HCG RANGE SEE BELOW Normal [facility] Comment on above: Result Comment: 5-50 0.2-1 WEEK 50-500 1-2 WEEKS 100-5,000 2-3 WEEKS 500-10,000 3-4 WEEKS 1,000-50,000 4-5 WEEKS 10,000-100,000 5-6 WEEKS 15,000-200,000 6-8 WEEKS 10,000-100,000 2-3 MONTHS Performed By: #### RILEY VALERIO #### [facility] [address] [place] [address] Dr. Josie Sanchez PREG QUANT HCGon 05-20-2022 HCG QUANT 6 mIU/mL Normal [facility] Comment on above: Performed By: #### P REGQNT #### [facility] [address] [place] [address] Dr. Josie Sanchez HCG RANGE SEE BELOW Normal [facility] Comment on above: Result Comment: 5-50 0.2-1 WEEK 50-500 1-2 WEEKS 100-5,000 2-3 WEEKS 500-10,000 3-4 WEEKS 1,000-50,000 4-5 WEEKS 10,000-100,000 5-6 WEEKS 15,000-200,000 6-8 WEEKS 10,000-100,000 2-3 MONTHS Performed By: #### P REGQNT #### [facility] [address] [place] [address] Dr. Josie Sanchez PREG QUANT HCGon 05-14-2022 HCG QUANT 26 mIU/mL Normal [facility] Comment on above: Performed By: #### P REGQNT #### [facility] [address] [place] [address] Dr. Josie Sanchez HCG RANGE SEE BELOW Normal [facility] Comment on above: Result Comment: 5-50 0.2-1 WEEK 50-500 1-2 WEEKS 100-5,000 2-3 WEEKS 500-10,000 3-4 WEEKS 1,000-50,000 4-5 WEEKS 10,000-100,000 5-6 WEEKS 15,000-200,000 6-8 WEEKS 10,000-100,000 2-3 MONTHS Performed By: #### P REGQNT #### [facility] [address] [place] [address] Dr. Josie Sanchez CBC AUTO DIFFon 05-08-2022 BASO # 0.0 103/ul Normal 0.0-0.1 [facility] Comment on above: Performed By: #### RILEY VALERIO #### [facility] [address] [place] [address] Dr. Josie Sanchez Basophils/100 WBC (Bld) 0.2 % Normal 0.2-2.0 [facility] Comment on above: Performed By: #### KIAN VALERIORO #### [facility] [address] [place] [address] Dr. Josie Sanchez EO # 0.0 103/ul Normal 0.0-0.7 [facility] Comment on above: Performed By: #### RILEY VALERIO #### [facility] [address] [place] [address] Dr. Josie Sanchez Eosinophils/100 WBC (Bld) 0.5 % Critically low 0.9-7. 0 [facility] Comment on above: Performed By: #### RILYE VALERIO #### [facility] [address] [place] [address] Dr. Josie Sanchez Erythrocyte distribution width (RBC) [Ratio] 12.8 % Normal 11.0-15.0 [facility] Comment on above: Performed By: #### RILEY VALERIO #### [facility] [address] [place] [address] Dr. Josie Sanchez Hematocrit (Bld) [Volume fraction] 41.0 % Normal 36.0-48.0 [facility] Comment on above: Performed By: #### RILEY VALERIO #### [facility] [address] [place] [address] Dr. Josie Sanchez Hemoglobin (Bld) [Mass/Vol] 13.4 g/dL Normal 12.0-16.0 [facility] Comment on above: Performed By: #### RILEY VALERIO #### [facility] [address] [place] [address] Dr. Josie Sanchez IG # 0.02 10e3/ul Normal 0.00-0.03 [facility] Comment on above: Performed By: #### RILEY VALERIO #### [facility] [address] [place] [address] Dr. Josie Sanchez IG % 0.3 % Normal 0.0-0.5 [facility] Comment on above: Performed By: #### RILEY VALERIO #### [facility] [address] [place] [address] Dr. Josie Sanchez LYMPH # 1.6 103/ul Normal 1.2-3.8 [facility] Comment on above: Performed By: #### RILEY VALERIO #### [facility] [address] [place] [address] Dr. Josie Sanchez Lymphocytes/100 WBC (Bld) 27.1 % Normal 20.5-60.0 [facility] Comment on above: Performed By: #### ROBERT VALERIOICRO #### [facility] [address] [place] [address] Dr. Josie Sanchez MANUAL DIFF REQ NO Normal [facility] Comment on above: Performed By: #### Clyde MEANS UMICRO #### [facility] [address] [place] [address] Dr. Josie Sanchez MCH (RBC) [Entitic mass] 29.3 pg Normal 26.7-34.0 [facility] Comment on above: Performed By: #### Clyde MEANS UMICRO #### [facility] [address] [place] [address] Dr. Josie Sanchez MCHC (RBC) [Mass/Vol] 32.7 g/dL Normal 29.9-35.2 [facility] Comment on above: Performed By: #### Clyde MEANS UMICRO #### [facility] [address] [place] [address] Dr. Josie Sanchez MCV (RBC) [Entitic vol] 89.5 fL Normal 81.0-99.0 [facility] Comment on above: Performed By: #### Clyde MEANS UMICRO #### [facility] [address] [place] [address] Dr. Josie Sanchez MONO # 0.5 103/ul Normal 0.3-0.8 [facility] Comment on above: Performed By: #### Clyde MEANS UMICRO #### [facility] [address] [place] [address] Dr. Josie Sanchez Monocytes/100 WBC (Bld) 8.6 % Normal 1.7-12.0 [facility] Comment on above: Performed By: #### Clyde MEANS UMICRO #### [facility] [address] [place] [address] Dr. Josie Sanchez NEUT # 3.7 103/ul Normal 1.4-6.5 [facility] Comment on above: Performed By: #### ROBERT VALERIOICRO #### [facility] [address] [place] [address] Dr. Josie Sanchez Neutrophils/100 WBC (Bld) 63.3 % Normal 43.0-75.0 [facility] Comment on above: Performed By: #### Clyde MEANS UMICRO #### [facility] [address] [place] [address] Dr. Josie Sanchez Platelet mean volume (Bld) [Entitic vol] 9.8 fL Normal 9.5-13.5 [facility] Comment on above: Performed By: #### ROBERT VALERIOICRO #### [facility] [address] [place] [address] Dr. Josie Sanchez PLT 238 103/ul Normal 150-450 [facility] Comment on above: Performed By: #### ROBERT VALERIOICRO #### [facility] [address] [place] [address] Dr. Josie Sanchez RBC 4.58 106/ul Normal 4.20-5.40 [facility] Comment on above: Performed By: #### ROBERT VALERIOICRO #### [facility] [address] [place] [address] Dr. Josie Sanchez WBC 5.8 103/ul Normal 4.0-11.0 [facility] Comment on above: Performed By: #### ROBERT VALERIOICRO #### [facility] [address] [place] [address] Dr. Josie Sanchez PREG QUANT HCGon 05-08-2022 HCG QUANT 2335 mIU/mL Normal [facility] Comment on above: Performed By: #### P REGQNT #### [facility] [address] [place] [address] Dr. Josie Sanchez HCG RANGE SEE BELOW Normal [facility] Comment on above: Result Comment: 5-50 0.2-1 WEEK 50-500 1-2 WEEKS 100-5,000 2-3 WEEKS 500-10,000 3-4 WEEKS 1,000-50,000 4-5 WEEKS 10,000-100,000 5-6 WEEKS 15,000-200,000 6-8 WEEKS 10,000-100,000 2-3 MONTHS Performed By: #### P REGQNT #### [facility] [address] [place] [address] Dr. Josie Sanchez CBC AUTO DIFFon 05-07-2022 BASO # 0.0 103/ul Normal 0.0-0.1 [facility] Comment on above: Performed By: #### KIAN VALERIORO #### [facility] [address] [place] [address] Dr. Josie Sanchez Basophils/100 WBC (Bld) 0.2 % Normal 0.2-2.0 [facility] Comment on above: Performed By: #### KIAN VALERIORO #### [facility] [address] [place] [address] Dr. Josie Sanchez EO # 0.0 103/ul Normal 0.0-0.7 [facility] Comment on above: Performed By: #### KIAN VALERIORO #### [facility] [address] [place] [address] Dr. Josie Sanchez Eosinophils/100 WBC (Bld) 0.3 % Critically low 0.9-7. 0 [facility] Comment on above: Performed By: #### ROBERT VALERIOICRO #### [facility] [address] [place] [address] Dr. Josie Sanchez Erythrocyte distribution width (RBC) [Ratio] 12.8 % Normal 11.0-15.0 [facility] Comment on above: Performed By: #### Clyde MEANS UMICRO #### [facility] [address] [place] [address] Dr. Josie Sanchez Hematocrit (Bld) [Volume fraction] 41.2 % Normal 36.0-48.0 [facility] Comment on above: Performed By: #### Clyde MEANS UMICRO #### [facility] [address] [place] [address] Dr. Josie Sanchez Hemoglobin (Bld) [Mass/Vol] 13.3 g/dL Normal 12.0-16.0 [facility] Comment on above: Performed By: #### Clyde MEANS UMICRO #### [facility] [address] [place] [address] Dr. Josie Sanchez IG # 0.02 10e3/ul Normal 0.00-0.03 [facility] Comment on above: Performed By: #### Clyde MEANS UMICRO #### [facility] [address] [place] [address] Dr. Josie Sanchez IG % 0.3 % Normal 0.0-0.5 [facility] Comment on above: Performed By: #### Clyde MEANS UMICRO #### [facility] [address] [place] [address] Dr. Josie Sanchez LYMPH # 1.0 103/ul Critically low 1.2-3.8 [facility] Comment on above: Performed By: #### Clyde MEANS UMICRO #### [facility] [address] [place] [address] Dr. Josie Sanchez Lymphocytes/100 WBC (Bld) 15.5 % Critically low 20.5-6 0.0 [facility] Comment on above: Performed By: #### Clyde MEANS UMICRO #### [facility] [address] [place] [address] Dr. Josie Sanchez MANUAL DIFF REQ NO Normal [facility] Comment on above: Performed By: #### Clyde MEANS UMICRO #### [facility] [address] [place] [address] Dr. Josie Sanchez MCH (RBC) [Entitic mass] 28.9 pg Normal 26.7-34.0 [facility] Comment on above: Performed By: #### Clyde MEANS UMICRO #### [facility] [address] [place] [address] Dr. Josie Sanchez MCHC (RBC) [Mass/Vol] 32.3 g/dL Normal 29.9-35.2 [facility] Comment on above: Performed By: #### Clyde MEANS UMICRO #### [facility] [address] [place] [address] Dr. Josie Sanchez MCV (RBC) [Entitic vol] 89.6 fL Normal 81.0-99.0 [facility] Comment on above: Performed By: #### KIAN VALERIORO #### [facility] [address] [place] [address] Dr. Josie Sanchez MONO # 0.4 103/ul Normal 0.3-0.8 [facility] Comment on above: Performed By: #### ROBERT VALERIOICRO #### [facility] [address] [place] [address] Dr. Josie Sanchez Monocytes/100 WBC (Bld) 6.2 % Normal 1.7-12.0 [facility] Comment on above: Performed By: #### Clyde MEANS UMICRO #### [facility] [address] [place] [address] Dr. Josie Sanchez NEUT # 5.0 103/ul Normal 1.4-6.5 [facility] Comment on above: Performed By: #### ROBERT VALERIOICRO #### [facility] [address] [place] [address] Dr. Josie Sanchez Neutrophils/100 WBC (Bld) 77.5 % Critically high 43.0- 75.0 [facility] Comment on above: Performed By: #### ROBERT VALERIOICRO #### [facility] [address] [place] [address] Dr. Josie Sanchez Platelet mean volume (Bld) [Entitic vol] 10.2 fL Normal 9.5-13.5 [facility] Comment on above: Performed By: #### Clyde MEANS UMICRO #### [facility] [address] [place] [address] Dr. Josie Sanchez PLT 237 103/ul Normal 150-450 [facility] Comment on above: Performed By: #### Clyde MEANS UMICRO #### [facility] [address] [place] [address] Dr. Josie Sanchez RBC 4.60 106/ul Normal 4.20-5.40 [facility] Comment on above: Performed By: #### RILEY VALERIO #### [facility] [address] [address] [address] Josie Sanchez WBC 6.5 103/ul Normal 4.0-11.0 [facility] Comment on above: Performed By: #### RILEY VALERIO #### [facility] [address] [place] [address] Dr. Josie Sanchez Covid-19 PCR ([facility])on 04-10 SARS-CoV-2 (COVID-19) RNA ALEXA+probe Ql (Unsp spec) Not detected Normal NOT DETECTED [facility] Comment on above: Result Comment: This test is not yet approved or cleared by the [place] FDA. When there are no FDA-approved or cleared tests available, and other criteria are met, FDA can make tests available under an emergency access mechanism called an Emergency Use Authorization (EUA). The EUA for this test is supported by the [place] of Health and Human Service's (HHS's) declaration [...] By: #### RILEY VALERIO #### [facility] [address] [place] [address] Dr. Josie Sanchez PREG QUANT HCGon 05-07-2022 HCG QUANT 2745 mIU/mL Normal [facility] Comment on above: Performed By: #### RILEY VALERIO #### [facility] [address] [place] [address] Dr. oJsie Sanchez HCG RANGE SEE BELOW Normal [facility] Comment on above: Result Comment: 5-50 0.2-1 WEEK 50-500 1-2 WEEKS 100-5,000 2-3 WEEKS 500-10,000 3-4 WEEKS 1,000-50,000 4-5 WEEKS 10,000-100,000 5-6 WEEKS 15,000-200,000 6-8 WEEKS 10,000-100,000 2-3 MONTHS Performed By: #### RILEY VALERIO #### [facility] [address] [place] [address] Dr. Josie Sanchez US PREG TVon 05-05-2022 [...] PEREZ DURBIN Date: 2022-05-05 14:42 Normal [facility] URINE PROFILEon 2 Bilirubin Ql (U) Negative Normal NEGATIVE [facility] Comment on above: Performed By: #### RILEY VALERIO #### [facility] [address] [place] [address] Dr. Josie Sanchez Clarity (U) CLEAR Normal CLEAR [facility] Comment on above: Performed By: #### RILEY VALERIO #### [facility] [address] [place] [address] Dr. Josie Sanchez Color (U) YELLOW Normal YELLOW [facility] Comment on above: Performed By: #### RILEY VALERIO #### [facility] [address] [place] [address] Dr. Yilan Sanchez ERUAHD A micrscopic examination will be performed if indicated. Normal [facility] Comment on above: Performed By: #### Clyde MEANS UMICRO #### [facility] [address] [place] [address] Dr. Josie Sanchez Glucose Ql (U) Negative Normal NEGATIVE [facility] Comment on above: Performed By: #### Clyde MEANS UMICRO #### [facility] [address] [address] [address] Josie Sanchez Hemoglobin Ql (U) SMALL Abnormal NEGATIVE [facility] Comment on above: Performed By: #### Clyde MEANS UMICRO #### [facility] [address] [place] [address] Dr. Josie Sanchez Ketones Ql (U) 15 mg/dl Abnormal NEGATIVE [facility] Comment on above: Performed By: #### Clyde MEANS UMICRO #### [facility] [address] [place] [address] Dr. Josie Sanchez LEUKOCYTES Negative Normal NEGATIVE [facility] Comment on above: Performed By: #### Clyde MEANS UMICRO #### [facility] [address] [place] [address] Dr. Josie Sanchez Nitrite Ql (U) Negative Normal NEGATIVE [facility] Comment on above: Performed By: #### Clyde MEANS UMICRO #### [facility] [address] [place] [address] Dr. Josie Sanchez pH (U) 6.0 [pH] Normal 5-9 [facility] Comment on above: Performed By: #### Clyde MEANS UMICRO #### [facility] [address] [place] [address] Dr. Josie Sanchez SPEC GRAVITY 1.020 Normal 1.005-<=1.02 5 [facility] Comment on above: Performed By: #### Clyde MEANS UMICRO #### [facility] [address] [place] [address] Dr. Josie Sanchez UA PROTEIN Negative Normal NEGATIVE/ TRACE [facility] Comment on above: Performed By: #### Clyde MEANS UMICRO #### [facility] [address] [place] [address] Dr. Josie Sanchez UR MICRO IND INDICATED Normal [facility] Comment on above: Performed By: #### Clyde MEANS, UMICRO #### [facility] [address] [place] [address] Dr. Josie Sanchez Urobilinogen Qn (U) 0.2 {Fabricio'U}/dL Normal 0.2 - 1. 0 [facility] Comment on above: Performed By: #### E MIGUELANGEL, UMICRO #### [facility] [address] [place] [address] Dr. Josie Sanchez URINE MICROSCOPIC ONLYon BACTERIA NONE SEEN Normal NONE SEEN The [facility] Comment on above: Performed By: #### Clyde MEANS, UMICRO #### [facility] [address] [place] [address] Dr. Josie Sanchez Bacteria identified Cx Nom (U) NOT INDICATED Normal [facility] Comment on above: Performed By: #### Clyde MEANS UMICRO #### [facility] [address] [place] [address] Dr. Josie Sanchez CAST NONE SEEN Normal NONE SEEN [facility] Comment on above: Performed By: #### Clyde MEANS UMICRO #### [facility] [address] [place] [address] Dr. Josie Sanchez Crystals LM Nom (Urine sed) NONE SEEN Normal NONE SEEN [facility] Comment on above: Performed By: #### Clyde MEANS UMICRO #### [facility] [address] [place] [address] Dr. Josie Sanchez Epithelial cells LM Ql (Urine sed) NONE SEEN Normal NONE SEEN /RARE [facility] Comment on above: Performed By: #### Clyde MEANS UMICRO #### [facility] [address] [place] [address] Dr. Josie Sanchez MUCOUS MODERATE Abnormal NONE SEEN The [facility] Comment on above: Performed By: #### Clyde MEANS UMICRO #### [facility] [address] [place] [address] Dr. Josie Sanchez RBC 0-2 Normal 0-2 [facility] Comment on above: Performed By: #### RILEY VALERIO #### [facility] [address] [place] [address] Dr. Josie Sanchez WBC NONE SEEN Normal NONE SEEN The [facility] Comment on above: Performed By: #### KIAN VALERIORO #### [facility] [address] [place] [address] Dr. Josie Sanchez PREG QUANT HCGon 04-20-2022 HCG QUANT 39811 mIU/mL Normal [facility] Comment on above: Performed By: #### RILEY VALERIO #### [facility] [address] [place] [address] Dr. Josie Sanchez HCG RANGE SEE BELOW Normal [facility] Comment on above: Result Comment: 5-50 0.2-1 WEEK 50-500 1-2 WEEKS 100-5,000 2-3 WEEKS 500-10,000 3-4 WEEKS 1,000-50,000 4-5 WEEKS 10,000-100,000 5-6 WEEKS 15,000-200,000 6-8 WEEKS 10,000-100,000 2-3 MONTHS Performed By: #### RILEY VALERIO #### [facility] [address] [place] [address] Dr. Josie Sanchez HCG-BETA SUBUNIT QUANTon hCG,Beta Subunit,Qnt,Serum <1 Normal [facility] Comment on above: Result Comment: Fema le (Non-) 0 - 5 (Postmenopausal) 0 - 8 . Female () Weeks of Gestation 3 6 - 71 4 10 - 750 5 217 - 7238 6 158 - 24953 7 [phone] 8 [phone] [phone] 9 [phone] -[phone] 10 30462 -597130 12 57871 -477208 14 51030 - 59949 15 16460 - 52070 16 8864 - 21742 17 5848 - 39924 18 4233 - [phone] Regina ECLIA methodology Performed By: #### RILEY VALERIO #### [facility] [address] [place] [address] Dr. Josie Sanchez CBC AUTO DIFFon 02-18-2022 BASO # 0.0 103/ul Normal 0.0-0.1 [facility] Comment on above: Performed By: #### C BC #### [facility] [address] [address] [address] Josie Sanchez Basophils/100 WBC (Bld) 0.2 % Normal 0.2-2.0 [facility] Comment on above: Performed By: #### C BC #### [facility] [address] [address] [address] Josie Sanchez EO # 0.1 103/ul Normal 0.0-0.7 [facility] Comment on above: Performed By: #### C BC #### [facility] [address] [place] [address] Dr. Josie Sanchez Eosinophils/100 WBC (Bld) 0.8 % Critically low 0.9-7. 0 [facility] Comment on above: Performed By: #### C BC #### [facility] [address] [place] [address] Dr. Josie Sanchez Erythrocyte distribution width (RBC) [Ratio] 12.5 % Normal 11.0-15.0 [facility] Comment on above: Performed By: #### C BC #### [facility] [address] [place] [address] Dr. Josie Sanchez Hematocrit (Bld) [Volume fraction] 39.5 % Normal 36.0-48.0 [facility] Comment on above: Performed By: #### C BC #### [facility] [address] [place] [address] Dr. Josie Sanchez Hemoglobin (Bld) [Mass/Vol] 13.0 g/dL Normal 12.0-16.0 [facility] Comment on above: Performed By: #### C BC #### [facility] [address] [place] [address] Dr. Josie Sanchez IG # 0.02 10e3/ul Normal 0.00-0.03 [facility] Comment on above: Performed By: #### C BC #### [facility] [address] [place] [address] Dr. Josie Sanchez IG % 0.3 % Normal 0.0-0.5 [facility] Comment on above: Performed By: #### C BC #### [facility] [address] [place] [address] Dr. Josie Sacnhez LYMPH # 1.5 103/ul Normal 1.2-3.8 [facility] Comment on above: Performed By: #### C BC #### [facility] [address] [place] [address] Dr. Josie Sanchez Lymphocytes/100 WBC (Bld) 22.9 % Normal 20.5-60.0 [facility] Comment on above: Performed By: #### C BC #### [facility] [address] [place] [address] Dr. Josie Sanchez MANUAL DIFF REQ NO Normal [facility] Comment on above: Performed By: #### C BC #### [facility] [address] [place] [address] Dr. Josie Sanchez MCH (RBC) [Entitic mass] 30.3 pg Normal 26.7-34.0 [facility] Comment on above: Performed By: #### C BC #### [facility] [address] [place] [address] Dr. Josie Sanchez MCHC (RBC) [Mass/Vol] 32.9 g/dL Normal 29.9-35.2 [facility] Comment on above: Performed By: #### C BC #### [facility] [address] [place] [address] Dr. Josie Sanchez MCV (RBC) [Entitic vol] 92.1 fL Normal 81.0-99.0 [facility] Comment on above: Performed By: #### C BC #### [facility] [address] [place] [address] Dr. Josie Sanchez MONO # 0.4 103/ul Normal 0.3-0.8 [facility] Comment on above: Performed By: #### C BC #### [facility] [address] [place] [address] Dr. Josie Sanchez Monocytes/100 WBC (Bld) 5.7 % Normal 1.7-12.0 [facility] Comment on above: Performed By: #### C BC #### [facility] [address] [place] [address] Dr. Josie Sanchez NEUT # 4.6 103/ul Normal 1.4-6.5 [facility] Comment on above: Performed By: #### C BC #### [facility] [address] [place] [address] Dr. Josie Sanchez Neutrophils/100 WBC (Bld) 70.1 % Normal 43.0-75.0 [facility] Comment on above: Performed By: #### C BC #### [facility] [address] [place] [address] Dr. Josie Sanchez Platelet mean volume (Bld) [Entitic vol] 10.0 fL Normal 9.5-13.5 [facility] Comment on above: Performed By: #### C BC #### [facility] [address] [place] [address] Dr. Josie Sacnhez PLT 242 103/ul Normal 150-450 [facility] Comment on above: Performed By: #### C BC #### [facility] [address] [place] [address] Dr. Josie Sanchez RBC 4.29 106/ul Normal 4.20-5.40 [facility] Comment on above: Performed By: #### C BC #### [facility] [address] [place] [address] Dr. Josie Sanchez WBC 6.5 103/ul Normal 4.0-11.0 [facility] Comment on above: Performed By: #### C BC #### [facility] [address] [place] [address] Dr. Josie Sanchez LIPID PROFILEon 02-18-2022 CHOL-HDL RATIO NORM SEE BELOW Normal [facility] Comment on above: Result Comment: 3.3 - 4.4 LOW RISK 4.4 - 7.1 AVERAGE RISK 7.1 - 11.0 MODERATE RISK >11.0 HIGH RISK Performed By: #### L IPID, TSH #### [facility] [address] [address] [address] Josie Sanchez Cholesterol [Mass/Vol] 182 mg/dL Normal <=200 Th [facility] Comment on above: Performed By: #### L IPID, TSH #### [facility] [address] [address] [address] Josie Sanchez Cholesterol in HDL [Mass/Vol] 40 mg/dL Normal 40-60 [facility] Comment on above: Performed By: #### L IPID, TSH #### [facility] [address] [address] [address] Josie Sanchez Cholesterol in LDL [Mass/Vol] 122.4 mg/dL Normal [facility] Comment on above: Performed By: #### L IPID, TSH #### [facility] [address] [address] [address] Josie Sanchez Cholesterol.total/Choleste rol in HDL [Mass ratio] 4.6 {ratio} Normal [facility] Comment on above: Performed By: #### L IPID, TSH #### [facility] [address] [address] [address] Josie Sanchez HDL NORMAL > or = 60 mg/dl - LOW CARDIOVASCULAR RISK <40 mg/dl - HIGH CARDIOVASCULAR RISK Normal [facility] Comment on above: Performed By: #### L IPID, TSH #### [facility] [address] [address] [address] Josie Sanchez LDL CALC NORMAL SEE BELOW Normal [facility] Comment on above: Result Comment: <100 mg/dl OPTIMAL 100 - 129 mg/dl NEAR OR ABOVE OPTIMAL 130 - 159 mg/dl BORDERLINE HIGH 160 - 189 mg/dl HIGH >190 mg/dl VERY HIGH Performed By: #### L IPID, TSH #### [facility] [address] [address] [address] Josie Sanchez Triglyceride [Mass/Vol] 98 mg/dL Normal <=150 T [facility] Comment on above: Performed By: #### L IPID, TSH #### [facility] [address] [address] [address] Josie Sanchez VLDL CALC 19.6 mg/dL Normal [facility] Comment on above: Performed By: #### L IPID, TSH #### [facility] [address] [place] [address] Dr. Josie Sanchez PROTIMEon 02-18-2022 INR Coag (PPP) [Relative time] 1.10 {INR} Normal [facility] Comment on above: Performed By: #### P REGQNT #### [facility] [address] [place] [address] Dr. Josie aSnchez INR GUIDELINES SEE BELOW Normal [facility] Comment on above: Result Comment: PAULINA RED INR: 2.0 - 3.0 CONDITIONS NOT LISTED BELOW 2.5 - 3.5 FOR PROSTHETIC HEART VALVE REPLACEMENT 2.5 - 3.5 RECURRENT THROMBOSIS Performed By: #### P REGQNT #### [facility] [address] [place] [address] Dr. Josie Sanchez PT Coag (PPP) [Time] 11.8 s Critically high 9.0-11.6 [facility] Comment on above: Performed By: #### P REGQNT #### [facility] [address] [place] [address] Dr. Josie Sanchez PTTon 02-18-2022 aPTT Coag (Bld) [Time] 29.8 s Normal 22.3-36.2 [facility] Comment on above: Performed By: #### P REGQNT #### [facility] [address] [place] [address] Dr. Josie Sanchez TSHon 02-18-2022 TSH 3.410 uIU/mL Normal 0.358-3.740 [facility] Comment on above: Performed By: #### L IPID, TSH #### [facility] [address] [place] [address] Dr. Josie Sanchez US PELVIS AND TRANSVAGon [...] by: PEREZ DURBIN Date: 2022-02-18 18:56 Normal [facility] Nursing Note - Woundon 08-15 Nursing Note - Wound [id number] 52487#3.00CD:127 Normal [facility] Coding Summary.on 08-08-2020 Coding Summary. CODING DATE: 08/08/2020 FINAL [facility] STATUS: Home (Routine DC) PAYOR: [...] Jeannie Nur Date Saved: 08/08/2020 10:31 am [facility] Formson 08-08-2020 Forms [id number] 0459#1.00CD:127 Normal [facility] Home Health Recordson 2019 Home Health Records [id number] 3EFD#1.00CD:127 Normal [facility] Ambulatory Clinical Summaryo n 07-26-2020 Ambulatory Clinical Summary {[id number] -[id number]-13-05-b0-03 -33-60-e2-c7}CD:61 4368 [facility] Home Health Recordson 2019 Home Health Records [id number] 0EC7#1.00CD:127 [facility] Progress Note - Woundon 07-09 Progress Note - Wound [id number] 35791#2.00CD:127 [facility] Consent for Treatmenton 07-09 Consent for Treatment [id number] AFAA#1.00CD:127 [facility] Multi-Wound Charton 07-25-20 20 Multi-Wound Chart [id number] 04983#1.00CD:127 [facility] Nursing Assessment - Woundon 07-25-2020 Nursing Assessment - Wound [id number] 7.202 [id number] 78025#1.00CD:127 [facility] Physician Orderon 07-25-2020 Physician Order [id number] 96206#1.00CD:127 [facility] Health Recordson 2019 Home Health Records [id number] 3741#1.00CD:127 [facility] Health Recordson 2019 Home Health Records [id number] 3554#1.00CD:127 [facility] Coding Summary.on 07-12-2020 Coding Summary. 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 However, the narrative phrase printed from the coding software may appear abbreviated, or result in slightly different terminology. Coded By: Aicha Bledsoe CphT Date Saved: 07/12/2020 03:05 pm [facility] Coding Summary. 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 However, the narrative phrase printed from the coding software may appear abbreviated, or result in slightly different terminology. Coded By: Aicha Bledsoe CphT Date Saved: 07/12/2020 03:03 pm [facility] Multi-Wound Charton 07-12-20 20 Multi-Wound Chart [id number] 95896#1.00CD:127 [facility] Nursing Assessment - Woundon 07-12-2020 Nursing Assessment - Wound [id number] 7. [id number] 65376#1.00CD:127 [facility] Nursing Note - Woundon 07-12 Nursing Note - Wound [id number] 46302#1.00CD:127 [facility] Consent for Procedure/Surger yon 07-11-2020 Consent for Procedure/Surgery [id number] 82635#1.00CD:127 [facility] Consent for Treatmenton Consent for Treatment [id number] B36A#1.00CD:127 [facility] Home Health Recordson 2019 Home Health Records [id number] [id number]#1.00CD:127 [facility] Home Health Records [id number] [id number]#1.00CD:127 [facility] Physician Orderon 07-11-2020 Physician Order [id number] 89721#1.00CD:127 [facility] Progress Note - Woundon Progress Note - Wound [id number] 59086#1.00CD:127 [facility] Nursing Note - Woundon 07-02 Nursing Note - Wound [id number] 36495#3.00CD:127 [facility] Consent for Procedure/Surger yon 06-28-2020 Consent for Procedure/Surgery [id number]. [id number] 0200#1.00CD:127 [facility] Consent to Photographon 06-10 Consent to Photograph [id number]. [id number] 0326#1.00CD:127 [facility] HIPAA Privacy Documentson HIPAA Privacy Documents [id number] 0158#1.00CD:127 [facility] Nursing Note - Woundon 06-28 Nursing Note - Wound [id number]. [id number] 0289#1.00CD:127 [facility] Nursing Note - Wound [id number]. [id number] 0217#1.00CD:127 [facility] Consent for Treatmenton 06-09 Consent for Treatment [id number] EEDA#1.00CD:127 [facility] Multi-Wound Charton 06-27-20 20 Multi-Wound Chart [id number] 55732#1.00CD:127 [facility] Nursing Assessment - Woundon 06-27-2020 Nursing Assessment - Wound [id number] 7202 [id number] 01778#1.00CD:127 [facility] Physician Orderon 06-27-2020 Physician Order [id number] 84568#2.00CD:127 [facility] Progress Note - Woundon 06-09 Progress Note - Wound [id number] [id number]#1.00CD:127 [facility] HIPAA Privacy Documentson HIPAA Privacy Documents [id number] 02 [id number]#1.00CD:127 [facility] Outside Records Officeon Outside Records Office [id number] 2 [id number] [id number]#1.00CD:127 [facility] Vital Signs Date Time Vital Sign Value Performing Clinician Facility 12-26-2024 09:35-0400 Body mass index (BMI) [Ratio] 31.08 kg/m2 Fats[place] Work Phone: [facility] 12-26-2024 09:35-0400 Body weight 72.18 kg Mertado DO Work Phone: [facility] 12-26-2024 09:35-0400 Diastolic blood pressure 68 mm[Hg] [place] Work Phone: [facility] 12-26-2024 09:35-0400 Systolic blood pressure 110 mm[Hg] Fatsoma Work Phone: [facility] 12-11-2024 08:39-0400 Body mass index (BMI) [Ratio] 31.93 kg/m2 Norbert Silvia DO Work Phone: [facility] 12-11-2024 08:39-0400 Body weight 74.16 kg Norbert Silvia DO Work Phone: [facility] 12-11-2024 08:39-0400 Diastolic blood pressure 80 mm[Hg] Norbert Silvia DO Work Phone: [facility] 12-11-2024 08:39-0400 Systolic blood pressure 110 mm[Hg] Norbert Silvia DO Work Phone: [facility] 11-27-2024 13:25-0400 Body mass index (BMI) [Ratio] 31.25 kg/m2 Norbert Silvia DO Work Phone: [facility] 11-27-2024 13:25-0400 Body weight 72.58 kg Norbert Silvia DO Work Phone: [facility] 11-27-2024 13:25-0400 Diastolic blood pressure 76 mm[Hg] Norbert Silvia DO Work Phone: [facility] 11-27-2024 13:25-0400 Systolic blood pressure 124 mm[Hg] Norbert Silvia DO Work Phone: [facility] 10-09-2024 10:01-0500 Body mass index (BMI) [Ratio] 31.52 kg/m2 Gen Kang MD Work Phone: [facility] 10-09-2024 10:01-0500 Body weight 73.21 kg Gen Kang MD Work Phone: [facility] 10-09-2024 10:01-0500 Diastolic blood pressure 83 mm[Hg] Gen Kang MD Work Phone: [facility] 10-09-2024 10:01-0500 Heart rate 89 /min Gen Kang MD Work Phone: [facility] 10-09-2024 10:01-0500 Systolic blood pressure 131 mm[Hg] Gen Kang MD Work Phone: [facility] 10-02-2024 14:30-0500 Body mass index (BMI) [Ratio] 31.52 kg/m2 Norbert Silvia DO Work Phone: [facility] 10-02-2024 14:30-0500 Body weight 73.21 kg Norbert Silvia DO Work Phone: [facility] 10-02-2024 14:30-0500 Diastolic blood pressure 78 mm[Hg] Norbert Silvia DO Work Phone: [facility] 10-02-2024 14:30-0500 Systolic blood pressure 130 mm[Hg] Norbert Silvia DO Work Phone: [facility] 09-04-2024 13:50-0500 Body mass index (BMI) [Ratio] 30.86 kg/m2 Norbert Silvia DO Work Phone: [facility] 09-04-2024 13:50-0500 Body weight 71.67 kg Norbert Silvia DO Work Phone: [facility] 09-04-2024 13:50-0500 Diastolic blood pressure 78 mm[Hg] Norbert Silvia DO Work Phone: [facility] 09-04-2024 13:50-0500 Systolic blood pressure 122 mm[Hg] Norbert Silvia DO Work Phone: [facility] 07-28-2024 11:10-0500 Body mass index (BMI) [Ratio] 31.09 kg/m2 Nom Nurse [facility] 07-28-2024 11:10-0500 Body weight 72.21 kg [facility] Nurse [facility] 07-28-2024 11:10-0500 Diastolic blood pressure 91 mm[Hg] [facility] Nurse [facility] 07-28-2024 11:10-0500 Systolic blood pressure 122 mm[Hg] [facility] Nurse [facility] 11-20-2022 15:05-0400 Body height 152.4 cm Gloria Hayden Other [facility] Other 11-20-2022 15:05-0400 Body mass index (BMI) [Ratio] 11.72 kg/m2 Gloria Hayden Other [facility] Other 11-20-2022 15:05-0400 Body temperature 97.7 [degF] Gloria Hayden Other [facility] Other 11-20-2022 15:05-0400 Body weight 27.22 kg Gloria Hayden Other [facility] Other 11-20-2022 15:05-0400 Respiratory rate 18 /min Gloria Hayden Other [facility] Other 11-20-2022 15:05-0400 SaO2% (BldA) [Mass fraction] 97 % Gloria Hayden Other [facility] Other Encounters Encounter Date Encounter Type Care Provider Facility Start: 12-26-2024 End: 12-26-2024 Bamboo flowsheet Norbert Silvia DO Work Phone: [facility] Start: 12-26-2024 End: 12-26-2024 Bamboo flowsheet Norbert Silvia DO Work Phone: [facility] Start: 12-26-2024 End: 12-26-2024 ambulatory NORBERT SILVIA Not Available Start: 12-26-2024 End: 12-26-2024 Office outpatient visit 15 minutes Norbert Silvia DO Work Phone: [facility] Comment on above: 32 weeks gestation o f ; Third trimester Start: 12-21-2024 End: 12-21-2024 Clinisync Result Encounter Norbert Silvia DO Work Phone: [facility] Unsolicited Start: 12-21-2024 End: 12-21-2024 Clinisync Result Encounter Norbert Silvia DO Work Phone: [facility] Unsolicited Start: 12-11-2024 End: 12-11-2024 Office outpatient visit 15 minutes Norbert Silvia DO Work Phone: [facility] Comment on above: Third trimester preg zenon; 30 weeks gestation of Start: 12-11-2024 End: 12-11-2024 ambulatory NORBERT SILVIA Not Available Start: 12-09-2024 End: 12-09-2024 Clinisync Result Encounter Norbert Silvia DO Work Phone: [facility] Unsolicited Start: 12-09-2024 End: 12-09-2024 Clinisync Result Encounter Norbert Silvia DO Work Phone: [facility] Unsolicited Start: 11-30-2024 End: 11-30-2024 Clinisync Result Encounter Norbert Silvia DO Work Phone: [facility] Unsolicited Start: 11-30-2024 End: 11-30-2024 Clinisync Result Encounter Norbert Silvia DO Work Phone: [facility] Unsolicited Start: 11-27-2024 End: 11-27-2024 Bamboo flowsheet Norbert Silvia DO Work Phone: [facility] Start: 11-27-2024 End: 11-27-2024 Bamboo flowsheet Norbert Silvia DO Work Phone: [facility] Start: 11-27-2024 End: 11-27-2024 ambulatory NORBERT SILVIA Not Available Start: 11-27-2024 End: 11-27-2024 Office outpatient visit 15 minutes Norbert Silvia DO Work Phone: [facility] Comment on above: Third trimester preg zenon; 28 weeks gestation of ; Multigravida of advanced maternal age in third trimester; Anemia during in second trimester Start: 11-07-2024 End: 11-07-2024 ambulatory NORBERT JolieNicko SILVIA [facility] Start: 10-30-2024 End: 10-30-2024 ambulatory NORBERTLuzmaria PEÑAO Not Available Start: 10-30-2024 End: 10-30-2024 Bamboo flowsheet Norbert Silvia DO Work Phone: [facility] Start: 10-30-2024 End: 10-30-2024 Bamboo flowsheet Norbert Silvia DO Work Phone: [facility] Start: 10-09-2024 End: 10-09-2024 Office consultation new/estab patient 60 min Gen Kang MD Work Phone: [facility] Comment on above: Multigravida of adva nced maternal age in second trimester (Primary Dx) Start: 10-09-2024 End: 10-09-2024 Orders Only Sydni Kennedy RN Maternal- Medic ine at [facility] Comment on above: Multigravida of adva nced maternal age in second trimester (Primary Dx); History of delivery affecting Start: 10-02-2024 End: 10-02-2024 ambulatory NORBERT PEÑAO Not Available Start: 10-02-2024 End: 10-02-2024 Office outpatient visit 15 minutes Norbert Silvia DO Work Phone: [facility] Comment on above: 20 weeks gestation o f ; Second trimester ; Diabetes mellitus screening; , unspecified gestational age Start: 10-02-2024 End: 10-02-2024 Bamboo flowsheet Norbert Silvia DO Work Phone: [facility] Start: 10-02-2024 End: 10-03-2024 Bamboo flowsheet Norbert Silvia DO Work Phone: [facility] Start: 10-02-2024 End: 10-03-2024 External Result Encounter Norbetr Silvia DO Work Phone: [facility] Unsolicited Start: 09-13-2024 End: 09-16-2024 Clinisync Result Encounter Norbert Silvia DO Work Phone: [facility] Unsolicited Start: 09-13-2024 End: 09-16-2024 Clinisync Result Encounter Norbert Silvia DO Work Phone: [facility] Unsolicited Start: 09-08-2024 End: 09-08-2024 Chart abstracting Gen Kang MD Work Phone: [facility] Start: 09-04-2024 End: 09-04-2024 Bamboo flowsheet Norbert [...] Start: 07-31-2024 End: 07-31-2024 ambulatory Norbert Silvia Facility:[facility] Start: 07-31-2024 End: 07-31-2024 Clinisync Result Encounter Norbert Silvia DO Work Phone: [facility] Unsolicited Start: 07-31-2024 End: 07-31-2024 Clinisync Result Encounter Norbert Silvia DO Work Phone: [facility] Unsolicited Start: 07-28-2024 End: 07-28-2024 Clinisync Result Encounter Norbert Slivia DO Work Phone: [facility] Unsolicited [...] 11-20-2022 End: 11-20-2022 ambulatory Gloria Hayden Other [facility] Other Start: 11-20-2022 Office outpatient vi sit [...] DR NORBERT VEGA . [facility] Start: 05-08-2022 End: 05-08-[address] [...] End: 03-13-[address] NORBERT VEGA . Facility: Start: 02-18-2022 End: 02-19-[address] QUOC WATTS . Facility: Procedures Date Procedure Procedure Detail Performing Clinician Start: 12-26-2024 Urnls dip stick/tabl et rgnt non-auto w/o micrscp Norbert Silvia DO Work Phone: Start: 12-21-2024 US OB GROWTH Norbert Fazi o DO Work Phone: Start: 12-21-2024 US OB BPP W NON-STRESS Norbert Silvia DO Work Phone: Start: 12-11-2024 Urnls dip stick/tabl et rgnt non-auto w/o micrscp Norbert Silvia DO Work Phone: Start: 12-09-2024 [facility] UA (CLEAN/CATCH) MICROSCOPIC IF INDICATE Norbert Silvia DO Work Phone: Start: 11-30-2024 [facility] UA (CLEAN/CATCH) ENVIRONMENTAL SERVICES SUPERVISOR/MICRO IF IND. Norbert Silvia DO Work Phone: Start: 11-27-2024 Urnls dip stick/tabl et rgnt non-auto w/o micrscp Norbert Silvia DO Work Phone: Start: 10-02-2024 RECURRENT VAGINITIS (HTRX) Norbert Silvia DO Work Phone: Start: 10-02-2024 Urnls dip stick/tabl et rgnt non-auto w/o micrscp Norbert Silvia DO Work Phone: Start: 09-13-2024 AFP, SERUM, OPEN SPI NA BIFIDA Norbert Silvia DO Work Phone: Start: 09-04-2024 Urnls dip stick/tabl et rgnt non-auto w/o micrscp Norbert Silvia DO Work Phone: Start: 07-31-2024 [facility] DRUG SCREEN RAPI D (URINE) Norbert Silvia [...] AUTO DIFF Norbert Silvia DO Work Phone: Start: 12-21-2022 Microscopic observat ion [Identifier] in Cervix by Cyto stain Norbert Silvia DO Work Phone: H/O: section History of delivery affecting Sydni Kennedy RN Plan of Treatment Date Care Activity Detail Author Start: 12-22-2027 Screening for malign ant neoplasm of cervix [facility] Start: 10-09-2025 Adult BMI Screening Adult BMI Screen ing [facility] Start: 10-09-2025 Tobacco Screening Tobacco Screening [facility] Start: 10-09-2025 End: 10-09-2025 US MFM with or without consult US MFM with or without consult Imaging Routine Multigravida of advanced maternal age in second trimester History of delivery affecting Expected: 10/09/2025 (Approximate), Expires: 10/09/2025 [facility] Work Phone: Comment on above: Expected: 10/09/2025 (Approximate), Expires: 10/09/2025 Start: 04-09-2025 Influenza vaccination Influenz a Vaccine (Season Ended) [facility] Start: 01-08-2025 End: 01-08-2025 Patient encounter procedure 01/08/2025 10:00 AM EDT Routine [facility] [address] [place] [address] Norbert Vega, DO [address] [place] [address] [facility] Start: 12-26-2024 End: 12-26-2024 Patient encounter procedure 12/26/2024 9:00 AM EDT Routine [facility] [address] [place] [address] Norbert Vega, DO [address] [place] [address] [facility] Start: 12-11-2024 End: 12-11-2024 Patient encounter procedure 12/11/2024 8:30 AM EDT Routine [facility] [address] [place] [address] Norbert Vega, DO [address] [place] [address] [facility] Start: 12-11-2024 End: 12-11-2024 Professional / ancillary services management 12/11/2024 8:00 AM EDT Ancillary Procedure [facility] [address] [place] [id number] [facility] Start: 11-27-2024 End: 05-29-2025 US biophysical profile w non stress test US biophysical profile w non stress test Imaging Routine Multigravida of advanced maternal age in third trimester Expected: 11/27/2024 (Approximate), Expires: 05/29/2025 [facility] Work Phone: Comment on above: Expected: 11/27/2024 (Approximate), Expires: 05/29/2025 Start: 11-27-2024 End: 03-29-2025 US for US OB follow up transabdominal approach Imaging Routine Multigravida of advanced maternal age in third trimester Expected: 11/27/2024, Expires: 03/29/2025 [facility] Comment on above: Expected: 11/27/2024 , Expires: 03/29/2025 Start: 11-13-2024 End: 11-13-2024 Patient encounter procedure 11/13/2024 2:00 PM EDT Office Visit [facility] [address] [place] [address] Norbert Vega, DO [address] [place] [address] [facility] Start: 11-07-2024 End: 11-07-2024 Patient encounter procedure 11/07/2024 10:00 AM EDT Appointment [facility] - Ultrasound [address] [place] [address] [facility] Start: 10-30-2024 End: 10-30-2024 Patient encounter procedure [facility] Comment on above: Anemia during pregna ncy in second trimester Start: 10-09-2024 End: 10-09-2024 Patient encounter procedure [facility] US Imaging Start: 10-02-2024 End: 10-02-2024 Patient encounter procedure 10/02/2024 2:10 PM EST Routine [facility] [address] [place] [phone] Norbert Vega, DO [address] [place] [address] [facility] Start: 10-02-2024 End: 10-02-2025 CBC panel - Blood by Automated count CBC Lab Routine Diabetes mellitus screening Expected: 10/02/2024 (Approximate), Expires: 10/02/2025 [facility] Work Phone: Comment on above: Expected: 10/02/2024 (Approximate), Expires: 10/02/2025 Start: 10-02-2024 End: 10-02-2025 Measurement of glucose 1 hour after glucose challenge for glucose tolerance test Glucose tolerance, 1 hour Lab Routine Diabetes mellitus screening Expected: 10/02/2024 (Approximate), Expires: 10/02/2025 [facility] Comment on above: Expected: 10/02/2024 (Approximate), Expires: 10/02/2025 Start: 09-04-2024 End: 10-05-2024 Alpha fetoprotein, maternal Alpha fetoprotein, maternal Lab Routine Need for maternal serum alpha-protein (MSAFP) screening Expected: 09/04/2024 (Approximate), Expires: 10/05/2024 [facility] Work Phone: Comment on above: Expected: 09/04/2024 (Approximate), Expires: 10/05/2024 Start: 09-04-2024 End: 09-04-2024 Patient encounter procedure [facility] Comment on above: Arrived Start: 07-28-2024 End: 07-28-2025 ABO/Rh ABO/Rh Lab Routine Missed menses , unspecified gestational age Expected: 07/28/2024 (Approximate), Expires: 07/28/2025 [facility] Comment on above: Expected: 07/28/2024 (Approximate), Expires: 07/28/2025 Start: 07-28-2024 End: 07-28-2025 Blood type and Indirect antibody screen panel - Blood Type and screen Lab Routine Missed menses , unspecified gestational age Expected: 07/28/2024 (Approximate), Expires: 07/28/2025 [facility] Work Phone: Comment on above: Expected: 07/28/2024 (Approximate), Expires: 07/28/2025 Start: 07-28-2024 End: 07-28-2025 Drugs of abuse panel - Urine by Screen method Rapid drug screen, urine Lab Routine , unspecified gestational age Encounter for supervision of normal first in first trimester Expected: 07/28/2024 (Approximate), Expires: 07/28/2025 [facility] Comment on above: Expected: 07/28/2024 (Approximate), Expires: 07/28/2025 Start: 07-28-2024 End: 07-28-2025 US Pelvis transvaginal US OB transvaginal Imaging Routine Missed menses Expected: 07/28/2024 (Approximate), Expires: 07/28/2025 [facility] Comment on above: Expected: 07/28/2024 (Approximate), Expires: 07/28/2025 Start: 07-28-2024 End: 07-28-2024 ambulatory 07/28/2024 10:30 AM EST Initial [facility] [address] [place] [address] [facility] Start: 04-09-2024 Influenza vaccination Influenza Vacc ine [facility] Start: 2006 Screening for malign ant neoplasm of cervix Pap Smear [facility] Start: 2004 DTaP,Tdap and Td Vaccines (1 - Tdap) DTaP,Tdap and Td Vaccines (1 - Tdap) [facility] Start: 10-30-2003 Adult BMI Screening Adult BMI Screen ing [facility] Start: 1997 Depression Screening Depression Scre ening [facility] Start: 1997 Tobacco Screening Tobacco Screening [facility] Bacteria identified in Urine by Culture Urine culture Microbiology Routine Missed menses Ordered: 07/28/2024 [facility] Comment on above: Ordered: 07/28/2024 CBC W Auto Different ial panel - Blood CBC and differential Lab Routine Missed menses , unspecified gestational age Ordered: 07/28/2024 [facility] Comment on above: Ordered: 07/28/2024 CHLAMYDIA TRACHOMATI S (GENITO/STI) CHLAMYDIA TRACHOMATIS (GENITO/STI) Lab Routine , unspecified gestational age Ordered: 10/02/2024 [facility] Comment on above: Ordered: 10/02/2024 Hemoglobin A1c/Hemoglobin.total in Blood Hemoglobin A1c Lab Routine Missed menses , unspecified gestational age Ordered: 07/28/2024 [facility] Comment on above: Ordered: 07/28/2024 Hepatitis B virus surface Ag [Presence] in Serum or Plasma by Immunoassay Hepatitis B surface antigen Lab Routine Missed menses , unspecified gestational age Ordered: 07/28/2024 [facility] Comment on above: Ordered: 07/28/2024 Hepatitis C virus Ab [Presence] in Serum or Plasma by Immunoassay Hepatitis C antibody Lab Routine Missed menses , unspecified gestational age Ordered: 07/28/2024 [facility] Comment on above: Ordered: 07/28/2024 HIV-1/HIV-2 antigen/antibody combination immunoassay HIV-1 and HIV-2 antibodies Lab Routine Missed menses , unspecified gestational age Ordered: 07/28/2024 [facility] Comment on above: Ordered: 07/28/2024 Neisseria gonorrhoea e DNA [Presence] in Unspecified specimen by ALEXA with probe detection Neisseria gonorrhea DNA probe, direct Lab Routine , unspecified gestational age Ordered: 10/02/2024 [facility] Comment on above: Ordered: 10/02/2024 Reagin Ab [Presence] in Serum by RPR RPR Lab Routine Missed menses , unspecified gestational age Ordered: 07/28/2024 [facility] Comment on above: Ordered: 07/28/2024 Rubella antibody, IgG Rubella an tibody, IgG Lab Routine Missed menses , unspecified gestational age Ordered: 07/28/2024 [facility] Comment on above: Ordered: 07/28/2024 SURESWAB(R) ADVANCED VAGINITIS PLUS, TMA SURESWAB(R) ADVANCED VAGINITIS PLUS, TMA Pathology and Cytology Routine , unspecified gestational age Ordered: 10/02/2024 [facility] Comment on above: Ordered: 10/02/2024 Payers Date Payer Category Payer Medicaid [id number] 2022 Medicaid [id number] 2. [id number] 1985 Unknown [id number] 2.16.84 0.1.408299.3.579.2.593 1985 Unknown [id number] 2.16.84 0.1.965327.3.579.2.593 1985 Unknown [id number] 2.16.84 0.1.374078.3.579.2.593 1985 Unknown [id number] 2.16.84 0.1.293639.3.579.2.593 1985 Unknown [id number] 2.16.84 0.1.723432.3.579.2.593 1985 Unknown [id number] 2.16.84 0.1.931583.3.579.2.593 1985 Unknown [id number] 2.16.84 0.1.323631.3.579.2.593 1985 Unknown [id number] 2.16.84 0.1.793032.3.579.2.593 1985 Unknown [id number] 2.16.84 0.1.177751.3.579.2.593 1985 Unknown [id number] 2.16.84 0.1.477030.3.579.2.593 1985 Unknown [id number] 2.16.84 0.1.889662.3.579.2.593 1985 Unknown [id number] 2.16.84 0.1.537496.3.579.2.593 1985 Unknown [id number] 2.16.84 0.1.276342.3.579.2.593 1985 Unknown [id number] 2.16.84 0.1.960110.3.579.2.593 1985 Unknown [id number] 2.16.84 0.1.973107.3.579.2.593 1985 Unknown [id number] 2.16.84 0.1.983350.3.579.2.593 1985 Unknown [id number] 2.16.84 0.1.661527.3.579.2.593 1985 Unknown [id number] 2.16.84 0.1.036165.3.579.2.593 1985 Unknown [id number] 2.16.84 0.1.161127.3.579.2.593 1985 Unknown [id number] 2.16.84 0.1.572808.3.579.2.593 1985 Unknown [id number] 2.16. 840.1.361902.3.579.2.1286 1985 Unknown [id number] 2.16. 840.1.994146.3.579.2.1286 1985 Unknown [id number] 2.16. 840.1.714730.3.579.2.1286 1985 Unknown [id number] 2.16.84 0.1.814969.3.579.2.1259 1985 Unknown [id number] 2.16.84 0.1.864377.3.579.2.1259 1985 Unknown [id number] 2.16.84 0.1.189421.3.579.2.9 1985 Unknown [id number] 2.16.84 0.1.680127.3.579.2.1259 1985 Unknown [id number] 2.16.84 0.1.294053.3.579.2.9 1985 Unknown [id number] 2.16.84 0.1.220408.3.579.2.1259 1985 Unknown [id number] 2.16.84 0.1.229523.3.579.2.9 1985 Unknown [id number] 2.16.84 0.1.430315.3.579.2.1259 1959 Self-pay 1959 Unknown [id number] Unknown [id number] 2.16.8 40.1.202462.3.579.2.531 Social History Date Type Detail Facility Unknown if ever smoked [facility] Other Start: 12-21-2022 End: 07-28-2024 Sex Assigned At [facility] Other Start: 12-21-2022 End: 10-09-2024 Tobacco smoking status [facility] Never smoked tobacco [facility] Start: 12-21-2022 End: 10-09-2024 Tobacco use and exposure Smokeless tobacco non-user [facility] Start: 08-23-2023 End: 12-26-2024 Alcohol intake Current drinker of alcohol (finding) [facility] Start: 12-21-2022 End: 07-28-2024 History of Social function [facility] Start: 01-14-2023 Alcohol Comment caffeine intake: occasionally [facility] Start: 1985 Sex Assigned At Not on file [facility] Start: 05-27-2024 [facility] Start: 09-08-2024 End: 10-09-2024 Alcoholic beverage intake Ex-drinker (finding) [facility] Childcare Unknown [facility] Start: 10-20-2018 Alcohol Comment occassionally [facility] Start: 03-14-2015 Sex Female (finding) [facility] Clinical Notes 05-08-2022 to 12-26-2024 Lise Calderon, OIL INSPECTOR - 12/26/2024 9:00 AM Collin Burns NP - 12/11/2024 8:30 AM Nubia Short LPN - 11/27/2024 1:10 PM Janice Kennedy RN - 10/09/2024 11:00 AM EST Note Date & Type Note Facility 12-26-2024 History of Present illness Narrative Reason for Appointment: Patient ID: Jannie Antonio is a 39 y.o. female who presents [...] Ambulatory Problems Diagnosis Date Noted Anxiety, generalized ([facility]) 01/15/2023 Resolved Ambulatory Problems Diagnosis Date Noted No Resolved Ambulatory Problems Past Medical History: Diagnosis Date Abnormal uterine bleeding Depression ([facility]) Dysmenorrhea History of History of D&C Hx of tubal ligation Miscarriage HISTORY PAST MEDICAL HISTORY SOCIAL HISTORY Past Medical History: Diagnosis Date Abnormal uterine bleeding Depression ([facility]) Dysmenorrhea History of x4 History of D&C [...] LOW TRANSVERSE x4 PAP SMEAR 06/18/2021 negative MI DILATION & CURETTAGE DX&/THER NONOBSTETRIC TONSILLECTOMY TUBAL [...] nursing note reviewed. Exam conducted with a c s s representative present. Vitals: Estimated body mass index is 31.08 kg/m as calculated from the following: Height [...] by Lise Calderon LPN on behalf of: Norbert Vega DO documented in this encounter [facility] 12-11-2024 History of Present illness Narrative Reason for Appointment: Patient ID: Jannie Antonio is a 39 y.o. female who presents for Routine Visit Patient presents today for Return OB appointment. MEDICATIONS Current Outpatient Medications Medication Instructions aspirin 81 mg, Daily buPROPion XL (WELLBUTRIN XL) 300 mg, Every morning cholecalciferol (Vitamin D-3) 25 MCG (1000 UT) capsule Daily citalopram (CELEXA) 20 mg, Oral, Daily RT co-enzyme Q-10 30 mg, Daily omega-3 (FISH OIL) 300 mg, Daily MV-Min-Fe Fum-FA-DHA ( 1 PO) 1 tablet, Daily simvastatin (Zocor) 40 MG tablet 1 tablet, Oral, Every evening venlafaxine XR (EFFEXOR XR) 37.5 [...] LOW TRANSVERSE x4 PAP SMEAR 06/18/2021 negative MI DILATION & CURETTAGE DX&/THER NONOBSTETRIC TONSILLECTOMY TUBAL [...] nursing note reviewed. Exam conducted with a c s s representative present. Vitals: Estimated body mass index is 31.93 kg/m as calculated from the following: Height as of 03/01/23: 5'. Weight as of this encounter: 163 lb 8 oz. BP: 110/80 Patient's last menstrual period was 05/13/2024. ASSESSMENT & PLAN ICD-10-CM 1. Third trimester Z34.93 POCT urinalysis dipstick manually resulted 2. 30 weeks gestation of Z3A.30 Return OB: Patient presents today for a routine obstetrics appointment. Patient is currently 30w2d . Patient states she is doing well but has complaints of being tired due to current . Patient has verbalizes frequent movement. labor precautions was discussed/given and patient was instructed to perform kick counts three times a day. Orders Placed This Encounter Procedures POCT urinalysis dipstick manually resulted Follow Up: Patient is to return to office in 2 week for routine OB appointment. Reports UTI on Wednesday. She presented to the OB Floor at [facility] and was monitored and then evaluated in the ED and hydrated and placed on Clindamycin. She is feeling much improved and without urinary symptoms. Documented by Samara Burns NP on behalf of: Norbert Vega DO documented in this encounter [facility] 11-27-2024 History of Present illness Narrative Reason for Appointment: Patient ID: Jannie Antonio is a 39 y.o. female who presents for Routine Visit Patient presents today for Return OB appointment. MEDICATIONS Current Outpatient Medications Medication Instructions aspirin 81 mg, Daily buPROPion XL (WELLBUTRIN XL) 300 mg, Every morning cholecalciferol (Vitamin D-3) 25 MCG (1000 UT) capsule Daily citalopram (CELEXA) 20 mg, Oral, Daily RT co-enzyme Q-10 30 mg, Daily iron polysaccharides (PROFE) 391.3 mg, Oral, Daily omega-3 (FISH OIL) 300 mg, Daily MV-Min-Fe Fum-FA-DHA ( 1 PO) 1 tablet, Daily simvastatin (Zocor) 40 MG tablet 1 tablet, Oral, Every evening venlafaxine XR (EFFEXOR XR) 37.5 mg, Oral, Daily, Do not crush or chew. ALLERGIES Allergies Allergen Reactions Cefaclor Anaphylaxis Penicillin G Anaphylaxis Penicillins Unknown Other Reaction(s): Abdominal discomfort Sulfamethoxazole-Trimethoprim Other Reaction(s): hives PROBLEMS Active Ambulatory Problems Diagnosis Date Noted Anxiety, generalized ([facility]) 01/15/2023 Resolved Ambulatory Problems Diagnosis Date Noted No Resolved Ambulatory Problems Past Medical History: Diagnosis Date Abnormal uterine bleeding Depression ([facility]) Dysmenorrhea History of History of D&C Hx of tubal ligation Miscarriage HISTORY PAST MEDICAL HISTORY SOCIAL HISTORY Past Medical History: Diagnosis Date Abnormal uterine bleeding Depression ([facility]) Dysmenorrhea History of x4 History of D&C [...] LOW TRANSVERSE x4 PAP SMEAR 06/18/2021 negative MI DILATION & CURETTAGE DX&/THER NONOBSTETRIC TONSILLECTOMY TUBAL [...] nursing note reviewed. Exam conducted with a c s s representative present. Vitals: Estimated body mass index is 31.25 kg/m as calculated from the following: Height as of 03/01/23: 5'. Weight as of this encounter: 160 lb. BP: 124/76 Patient's last menstrual period was 05/13/2024. ASSESSMENT & PLAN ICD-10-CM 1. Third trimester Z34.93 POCT urinalysis dipstick manually resulted 2. 28 weeks gestation of Z3A.28 3. Multigravida of advanced maternal age in third trimester O09.523 US biophysical profile w non stress test Patient presents today for a routine obstetrics appointment. Patient is currently 28w2d with a Estimated Date of Delivery: 02/17/25. Patient was given order for NST/BPP and will have Repeat scheduled 01/31/25. Patient to return to clinic in 2-3 weeks for routine OB care. Documented by Rosette Short LPN on behalf of: Norbert Vega DO documented in this encounter [facility] 10-09-2024 History of Present illness Narrative Headache/epigastric pain/blurry vision/swelling? No Cramping/contractions? No Abnormal vaginal discharge? No Spotting/vaginal bleeding? No Loss or gush of fluid like your water may have broken? No Do you have cats at home? Yes Do you change the litter box (reason: risk of toxoplasmosis)? No Genetic testing done this here or other office? Yes Have you been seen here at [facility] in a previous ? No Recent ER visits or hospitalizations? No Bring blood sugar log or meter with you today? (Please bring them with you for every visit at [facility]) N/A Flu vaccine (Jun-October)? No Any concerns that you would like me to mention to the provider today? No REASON FOR CONSULTATION: Advanced maternal age. HISTORY OF PRESENT ILLNESS: Jannie Antonio is a pleasant 38 y.o. G 9p 4-0 4 4. at 21w2d due on Estimated Date of Delivery: 02/17/25 . Patient was seen today due to the following 1. Advanced maternal age with low risk cell free DNA testing. 2. History of 4 prior . Patient is scheduled for repeat Currently the patient has no complaints. The patient denies nausea, vomiting, abdominal pain, vaginal bleeding, SOB or chest pain. Patient's PMH/PSH,SH,PSYCH Hx, MEDs, ALLERGIES, and ROS were all reviewed and updated in the appropriate sections. Patient Active Problem List Diagnosis Major depressive disorder, single episode, mild (CMS-HCC) Multigravida of advanced maternal age in second trimester Past Medical History: Diagnosis Date Anxiety Depression Dysmenorrhea PAST OBSTETRICAL HISTORY: OB History 9 Para 4 Term 4 AB 4 Living 4 SAB 4 IAB Ectopic Multiple Live Births 4 SURGICAL HISTORY: Past Surgical History: Procedure Laterality Date SECTION DILATION AND CURETTAGE OF UTERUS TUBAL LIGATION ALLERGIES: Allergies Allergen Reactions Penicillins CURRENT MEDICATIONS: Current Outpatient Medications: aspirin 81 mg chewable tablet, Chew 1 tablet (81 mg total) and swallow in the morning., Disp: , Rfl: buPROPion XL (WELLBUTRIN XL) 300 mg 24 hr tablet, Take 1 tablet (300 mg total) by mouth in the morning., Disp: , Rfl: cholecalciferol 1,000 units tablet, Take 1 tablet (1,000 Units total) by mouth in the morning., Disp: , Rfl: coenzyme Q10 50 mg capsule, Take 1 capsule (50 mg total) by mouth in the morning., Disp: , Rfl: omega 5-cwd-tsi-fish oil (Fish OiL) 300-1,000 mg capsule, Take 1 capsule by mouth once daily., Disp: , Rfl: citalopram (CeleXA) 20 mg tablet, Take 1 tablet (20 mg total) by mouth in the morning. (Patient not taking: Reported on 10/09/2024), Disp: , Rfl: progesterone (PROMETRIUM) 200 mg capsule, Take 1 capsule (200 mg total) by mouth in the morning. (Patient not taking: Reported on 10/09/2024), Disp: , Rfl: FAMILY/GENETIC HISTORY: No family history of VTE, cardiac defects and mental retardation . SOCIAL HISTORY:Patient denies tobacco use, alcohol use, or drug use. RECENT HOSPITALIZATION: none I did review all the labs results available in addition to labs which were ordered by the primary care physician, and the other consultants, we search on epic and all the available care everywhere epic I did review all the imaging studies of the patient available on EMR, ordered by the primary care physician and the other home care consultant HABITS: Patient activity no restrictions, diet no restrictions REVIEW OF SYSTEM: Head and Neck: Negative for any dizziness and headaches. Cardiovascular and Respiratory System: Denies any chest pain, shortness of breath, and coughing. Abdominal and System: Denies any abdominal pain, nausea, vomiting, vaginal bleeding, and vaginal discharge Social Determinants of Health Financial Resource Strain: n Food Insecurity: n Transportation Needs: n Physical Activity: y Social Connections: y Intimate Partner Violence: n Housing Stability: y PHYSICAL EXAMINATION: BP 131/83 (BP Site: Left Arm, BP Postition: Sitting) Pulse 89 Wt 73.2 kg (161 lb 6.4 oz) LMP 05/13/2024 BMI 31.52 kg/m . Gravid abdomen, Respirations not labored. Well oriented time place person, normal gait MEDICAL DECISION MAKING DISCUSSION: I informed the patient that based on her advanced maternal age she is increased risk for gestational hypertension preeclampsia gestational diabetes mellitus and aneuploidy. Early glucose tolerance test and a baseline 24 hour urine protein excretion to be obtained is suggested. RECOMMENDATION: 1. Normal but limited targeted anatomy seen on today's ultrasound. 2. Follow-up in 4 weeks at our remote [place] office for completion of targeted anatomy. 3. Patient is low risk and can be delivered at 39 weeks gestation via repeat at her local hospital. 4. Growth ultrasound between 34-36 weeks gestation at her OB office. 5. Patient understands increased risk of uterine dehiscence due to multiple C-sections. DISPOSITION: At this point the patient is in complete care of her machine i engraver. Patient does have 1 more ultrasound scheduled with us. Thank you for allowing me to participate in Jannie Antonio . If there any questions please do not hesitate to contact us. Sincerely, GEN KANG MD documented in this encounter [facility] 10-02-2024 History of Present illness Narrative Reason for Appointment: Patient ID: Jannie Antonio is a 38 y.o. female who presents for No chief complaint on file. Patient presents today for Return OB appointment. [...] History: Diagnosis Date Abnormal uterine bleeding Depression (CMS/[facility]) Dysmenorrhea History of History of D&C [...] LOW TRANSVERSE x4 PAP SMEAR 06/18/2021 negative MI DILATION & CURETTAGE DX&/THER NONOBSTETRIC TONSILLECTOMY TUBAL LIGATION REVIEW OF SYSTEMS Review of Systems: Review of Systems All other systems reviewed and are negative. OBJECTIVE Objective: Physical Exam Constitutional: Appearance: Normal [...] nursing note reviewed. Exam conducted with a c s s representative present. Vitals: Estimated body mass index is 31.52 kg/m as calculated from the following: Height as of 03/01/23: 5'. Weight as of this encounter: 161 lb 6.4 oz. BP: 130/78 Patient's last menstrual period was 05/13/2024. ASSESSMENT & PLAN ICD-10-CM 1. 20 weeks gestation of Z3A.20 POCT urinalysis dipstick manually resulted 2. Second trimester Z34.92 POCT urinalysis dipstick manually resulted 3. Diabetes mellitus screening Z13.1 CBC Glucose tolerance, 1 hour CBC Glucose tolerance, 1 hour Patient presents today for a routine obstetrics appointment. Patient is currently 20w2d with a Estimated Date of Delivery: 02/17/25. Patient is being seen on 10/09/24 at [facility]. Patient to return to clinic in 4 weeks. Documented by Rosette Short LPN on behalf of: Norbert Vega DO documented in this encounter [facility] 09-04-2024 History of Present illness Narrative Reason for Appointment: Patient ID: Jannie Antonio is a 38 y.o. female who presents [...] LOW TRANSVERSE x4 PAP SMEAR 06/18/2021 negative MI DILATION & CURETTAGE DX&/THER NONOBSTETRIC TONSILLECTOMY TUBAL [...] or undercooked meat, and stay away from [facility]. Patient has been consulted regarding any further do's and don'ts of . Patient voiced understanding and all questions and concerns were answered. Discussed with patient taken Aspirin 81mg daily and referral to [facility] for level II ultrasound. Orders Placed This Encounter Procedures US OB 14+ weeks anatomy scan Alpha fetoprotein, maternal POCT urinalysis dipstick manually resulted Follow Up: Patient is to return in 4 weeks for routine OB appointment. Documented by Rosette Short LPN on behalf of: Norbert Vega DO documented in this encounter [facility] 07-28-2024 History of Present illness Narrative Reason for Appointment: Patient ID: Jannie Antonio is a 38 y.o. female who presents [...] LOW TRANSVERSE x4 PAP SMEAR 06/18/2021 negative MI DILATION & CURETTAGE DX&/THER NONOBSTETRIC TONSILLECTOMY TUBAL [...] or undercooked meat, and stay away from [facility]. Patient has also been advised to not [...] Gemma Dumont LPN documented in this encounter [facility] 11-20-2022 Evaluation note Encounter Date Diagnosis Assessment [...] Contact dermatitis home care material was printed [facility] Other 09-30-2022 NoteEXAMINATION: US PELVIS HISTORY: Surgical procedure COMPARISON: No relevant comparison available. FINDINGS: The uterus is mildly heterogeneous in echotexture normal in size. Small amount of hypoechoic echogenicity identified within the endometrial cavity measuring 4.8 mm. Color ultrasound was not obtained IMPRESSION: Hypoechogenic endometrial cavity measuring 4.8 mm Electronically authenticated by: PEREZ DURBIN Date: 2022-05-08 18:03[facility]09-30-2022 NoteOPERATIVE NOTE OPERATION DATE: 05/08/2022 PROCEDURE: Suction D AND C. PREOPERATIVE DIAGNOSIS: 1. Suspected molar during first trimester. 2. Uterine mass approximately 4.5 cm. POSTOPERATIVE DIAGNOSIS: 1. Suspected molar during first trimester. 2. Uterine mass approximately 4.5 cm. 3. Significant large amounts of retained products. SURGEON: Norbert Vega D.O. ARMATURE WINDER: None. BLOOD LOSS: 100 mL. URINE OUTPUT: [...] products of conception were removed using a 9-Syriac suction curette tip. Excellent hemostasis was noted. The patient tolerated the procedure well. Sponge, lap, and needle counts were correct x 2. All instruments were then removed from the patient's vagina. The patient was taken to the Recovery Room in stable condition. [facility] Diagnosis Missed menses , unspecified gestational age Encounter for supervision of normal first in first trimester documented in this encounter [facility]* Diagnosis Second trimester state, incidental 16 weeks gestation of Need for maternal serum alpha-protein (MSAFP) screening Screening, , for anatomic survey Encounter for anatomic survey documented in this encounter [facility]* Diagnosis 20 weeks gestation of Second trimester state, incidental Diabetes mellitus screening Screening for diabetes mellitus , unspecified gestational age [facility]* Diagnosis Multigravida of advanced maternal age in second trimester- Primary [facility]* Diagnosis Multigravida of advanced maternal age in second trimester- Primary History of delivery affecting documented in [facility] encounter [facility]* Diagnosis Third trimester state, incidental 28 weeks gestation of Multigravida of advanced maternal age in third trimester Anemia during in second trimester [facility]* Diagnosis Third trimester state, incidental 30 weeks gestation of [facility]* Diagnosis 32 weeks gestation of Third trimester state, incidental [facility] Narrative - Reported* Type Description Date Medical History Hypercholesterolemia Medical History Hormone imbalance Medical History Vitamin D deficiency Medical History Iron deficiency Surgical History C section Surgical History oral surgery Surgical History tonsillectomy and adenoidectomy Surgical History D&C 2021 Hospitalization History child [facility] Other InstructionsNot on filedocumented in this encounter [facility] on filedocumented in this encounter [facility]Not on filedocumented in this encounter [facility] Summary Purpose Family History No Family [...] and content) DATE CREATED AUTHOR 08/15/[address] [facility] DATE CREATED AUTHOR AUTHOR'S ORGANIZ ATION 12/22/2022 [facility] DATE CREATED AUTHOR AUTHOR'S ORGANIZ ATION 08/03/2024 [facility] DATE CREATED AUTHOR AUTHOR'S ORGANIZ ATION 10/10/2024 [facility] DATE CREATED AUTHOR AUTHOR'S ORGANIZ ATION 11/08/2024 [facility] DATE CREATED AUTHOR AUTHOR'S ORGANIZ ATION 12/27/2024 [facility] EPIC REASON FOR VISIT (unrecogniz ed section and content) Reason Comments Amenorrhea Reason Comments Routine Visit Reason Comments Advanced Maternal Age Hx C/S x4 Hx Tubal Ligation Care Teams (unrecognized sec tion and content) Parts Cataloguer Relationship Specialty Start Date End Date Quoc Watts MD [address] [place] [address] PCP - General Family Medicine 12/28/22 Parts Cataloguer Relationship Specialty Start Date End Date Quoc Watts MD [address] [place] [address] PCP - General Family Medicine 12/28/22 Parts Cataloguer Relationship Specialty Start Date End Date Quoc Watts MD [address] [place] [address] PCP - General Family Medicine 12/28/22 Parts Cataloguer Relationship Specialty Start Date End Date Quoc Watts MD [address] [facility] [place] [address] PCP - General Family Medicine 12/28/22 Parts Cataloguer Relationship Specialty Start Date End Date Quoc Watts MD [address] [facility] [address] PCP - General Family Medicine 12/28/22 Parts Cataloguer Relationship Specialty Start Date End Date Quoc Watts MD [address] [facility] [place] [address] PCP - General Family Medicine 12/28/22 Parts Cataloguer Relationship Specialty Start Date End Date Quoc Watts MD [address] [facility] [place] [address] PCP - General Family Medicine 12/28/22 Parts Cataloguer Relationship Specialty Start Date End Date Quoc Watts MD PCP - General 04/04/18 Parts Cataloguer Relationship Specialty Start Date End Date Quoc Watts MD [address] [facility] [address] PCP - General Family Medicine 12/28/22 Parts Cataloguer Relationship Specialty Start Date End Date Quoc Watts MD [address] [facility] [address] PCP - General Family Medicine 12/28/22 Parts Cataloguer Relationship Specialty Start Date End Date Quoc Watts MD [address] [facility] [place] [address] PCP - General Family Medicine 12/28/22 Parts Cataloguer Relationship Specialty Start Date End Date Quoc Watts MD PCP - General 04/04/18 Parts Cataloguer Relationship Specialty Start Date End Date Quoc Watts MD PCP - General 04/04/18 Parts Cataloguer Relationship Specialty Start Date End Date Quoc Watts MD [address] [facility] [address] PCP - General Family Medicine 12/28/22 Parts Cataloguer Relationship Specialty Start Date End Date Quoc Watts MD [address] [facility] [address] PCP - General Family Medicine 12/28/22 Parts Cataloguer Relationship Specialty Start Date End Date Quoc Watts MD [address] [facility] [address] PCP - General Family Medicine 12/28/22 Parts Cataloguer Relationship Specialty Start Date End Date Quoc Watts MD PCP - General Family Medicine 12/28/22 FOR [...] BE BASED ON THE PRIMARY CLINICAL RECORDS. [facility] [facility]. provides no warranty or guarantee of the accuracy or completeness of information in this document.
[2025-01-04 11:13] VITALS: BP 128/71; PULSE 94
== END 2025-01-04 11:35 | disposition home or self-care (01) ==
LOC: US 10:51 → FBC 10:59
PROVIDERS: PCP Family Medicine; Visit Provider Obstetrics & Gynecology
DX: O09.523 Supervision of elderly multigravida, third trimester (principal); Z3A.33 33 weeks gestation of pregnancy
CPT/HCPCS: 76818

== ENCOUNTER 2025-01-08 11:30 | Outpatient (OUT) | payer MEDICAID, SELFPAY ==
--- OUTSIDE RECORDS SUMMARY | 2023-11-22 10:24 | XMS_ITS | Continuity of Care Document ---
Author Organization [facility] Address [address] [place] [address] Phone Care Team Providers Care Gis Specialist Name Role Phone Macario Pichardo DMD Unavailable [...] Diagnoses Date Provider Providers Copied on Encounter [facility], [address] [place] [address], [id number], [place] tel:[phone] Dental Clinic er (chief complaint) Body mass index [BMI] 33.0-33.9, adultEncounter for screening for dental disorders Kylee Sorto. [address] [place] [address], [id number] , [place]. tel:[phone] Family History Family Member Type Diagnosis Age At Onset No Information Payers Payer name Insurance type Covered alliance party ID Authoriza tion(s) D Medicaid [facility] [id number] Social History Type Description Quantity Date Captured [...]
--- OUTSIDE RECORDS SUMMARY | 2024-06-27 09:37 | XMS_ITS ---
Author Organization [facility] [place] Address [address] [place] [address] Care Team Providers Care Chip Washer Name Role Phone Emeka Watst Primary Care Provider REASON FOR VISIT anxiety Encounters Encounter Location Date Provider Diagnosis [address] [facility] [place] [address] 06/27/2024 Emeka Watts Plan Of Treatment No Information Progress Notes * Jannie SANON RDOB: [birth year] (38 yo F)Acc No.[id number]:06/27/2024 Patient: Jannie JEFFREY :1985 A ge:38 Y S ex:Female Address:[address] [place] [address] * true * Date: Generated for Heather agosto/Marcus/eTransmitting on: 0 01/08/2025 11:34 AM EDT
--- OUTSIDE RECORDS SUMMARY | 2024-08-18 09:34 | XMS_ITS ---
Author Organization [facility] in [place] Address [address] [place] [address] Care Team Providers Care Svp Programmatic Tv Name Role Phone Emeka Watts Primary Care Provider [phone] REASON FOR VISIT sick Medications Medication SIG (Take, Route, Frequency, Duration) Notes Start Date End Date Status Doxycycline Monohydrate 100 MG 1 capsule Orally bid for 10 days 08/18/2024 Active Encounters Encounter Location Date Provider Diagnosis [address] [address] 08/18/2024 Emeka Mac Plan Of Treatment Medication Medication Name Sig Start Date Stop Date Notes Cleocin 300 MG 1 capsule Orally QID 08/11/2023 levoFLOXacin 750 MG 1 tablet Orally Once a day 05/24/2024 Doxycycline Monohydrate 100 MG 1 capsule Orally bid for 10 days 08/18/2024 Progress Notes * Jannie SANON RDOB: [birth year] (38 yo F)Acc No.[id number]:08/18/2024 Patient: Jannie JEFFREY :1985 A ge:38 Y S ex:Female Address:[address] [place] [address] * Refills Stop levoFLOXacin Tablet, 750 MG, Orally, 1 tablet, Once a day Stop Cleocin Capsule, 300 MG, Orally, 1 capsule, QID Start Doxycycline Monohydrate Capsule, 100 MG, Orally, 20 Capsule, 1 capsule, bid, 10 days, Refills=0 * true * Date: Generated for Heather agosto/Marcus/Alfreditting on: 0 01/08/2025 11:36 AM EDT
--- OUTSIDE RECORDS SUMMARY | 2024-09-11 13:00 | XMS_ITS ---
Author Organization [facility] in [place] Address [address] [place] [address] Care Team Providers Care Stamping Die Try Out Worker Name Role Phone Emeka Watts Primary Care Provider Allergies Allergen (clinical drug ingredient) Drug/Non Drug Allergy documented on EMR Reaction Allergy Type Onset Date Status sulfamethoxazole / trimethoprim Bactrim hives Drug Allergy Active cefaclor Cefaclor anaphylaxis Drug Allergy Activ e Penicillin anaphylaxis Drug Allergy Acti ve REASON FOR VISIT cough, sinus headache, green drainage- Medications Medication SIG (Take, Route, Fr equency, Duration) Notes Start Date End Date Status Wellbutrin XL 300 MG 1 tablet in the mor miriam Orally Once a day for 30 days 01/27/2024 Active Cefdinir 300 MG 2 capsule Orally onc e a day for 10 days 09/11/2024 Active Simvastatin 40 MG take 1 tablet by jackie th every evening for 30 days Active Aspirin 81 81 MG 1 tablet Orally Once a day Active Social History Tobacco Use: Social History Observation Description Date Details (start date - stop date) Never Smoker NA - NA Tobacco Control (Standard) Question Answer Notes Tobacco use: Nonsmoker Vital Signs Temperature 99.3 degrees Fahrenheit 09/11/19 25 Blood pressure systolic 112 mm Hg 09/11/19 25 Blood pressure diastolic 72 mm Hg 025 Height 59 in 09/11/2024 Weight 157 lbs 09/11/2024 BMI 31.71 kg/m2 09/11/2024 Encounters Encounter Location Date Provider Diagnosis [facility] [address] [place] [address] 09/11/2024 Emeka Hoy Acute non-recurrent sinusitis, unspecified location J01.90 and Nasal congestion R09.81 Assessments Encounter Date Diagnosis (ICD Code) Assessment Notes Treatment Notes Treatment Clinical Notes Section Notes 09/11/2024 Acute non-recurrent sinusitis, unspecified location (ICD-10 - J01.90) Rest and drink more liquids, especially water. You may use a humidifier or vaporizer to help keep the drainage moist. Prso-zcz-esoxivh Nasal Saline may help the stuffy and runny nose. Use Ibuprofen and or Tylenol as needed for fever, chills, body aches or pain. Children 5 years old should not be given gefm-tvy-illsrlp cough and cold medications such as guaifenesin and dextromethorphan. If you're over age 5, you may try csef-too-prkznjj cold medications such as guaifenesin and dextromethorphan, or multi-symptom cold reliever such as Dayquil to help reduce the symptoms. Antibiotics have been prescribed. You should take these until completed and follow the directions. Antibiotics can sometimes cause upset stomach, and in rare cases, serious allergic reactions or serious gastrointestinal problems. If you start having severe abdominal pain, severe vomiting, or bloody diarrhea, you should be reevaluated by your physician or urgent care immediately. Follow up with your Primary Care Provider or return to clinic if symptoms do not improve within 3-5 days 09/11/2024 Nasal congestion (ICD-10 - R09.81) Plan Of Treatment Medication Medication Name Sig Start Date Stop Date Notes Cefdinir 300 MG 2 capsule Orally once a day for 10 days Treatment Notes Assessment Notes Acute non-recurrent sinusiti s, unspecified location Rest and drink more liquids, especially water. You may use a humidifier or vaporizer to help keep the drainage moist. Mbhk-xbq-catqcpg Nasal Saline may help the stuffy and runny nose. Use Ibuprofen and or Tylenol as needed for fever, chills, body aches or pain. Children 5 years old should not be given wgbb-gdu-ksjtgxo cough and cold medications such as guaifenesin and dextromethorphan. If you're over age 5, you may try ggic-zzm-xlxeusj cold medications such as guaifenesin and dextromethorphan, or multi-symptom cold reliever such as Dayquil to help reduce the symptoms. Antibiotics have been prescribed. You should take these until completed and follow the directions. Antibiotics can sometimes cause upset stomach, and in rare cases, serious allergic reactions or serious gastrointestinal problems. If you start having severe abdominal pain, severe vomiting, or bloody diarrhea, you should be reevaluated by your physician or urgent care immediately. Follow up with your Primary Care Provider or return to clinic if symptoms do not improve within 3-5 days Next Appt Details Follow Up: 3-5 days if not i mproving, Reason: Progress Notes * Jannie SANON RDOB: [birth year] (38 yo F)Acc No.[id number]:09/11/2024 Progress Note Patient: Jannie JEFFREY Provider: Juliane Watts ([facility])MD :1985 A ge:38 Y S ex:Female Date:09/11/2024 Address[facility] [id number] Check In:04:31 PM ESTCheck O ut:05:04 PM EST Subjective: * Chief Complaints: * C ough, sinus headache, green drainage- * HPI: G eneral: gre nasal drainage. S inusitis: The patient complains of symptoms of sinus infection. The symptoms have been present for 1-2 days. The symptoms are moderate. Symptomatic treatment has included OTC medication. Associated symptoms include headache, facial pain, runny nose, nasal congestion. * ROS: S kin: Rash d enies. E NT: Comments S [facility] for details. C ardiovascular: Edema d enies. P alpitations d enies. ? R espiratory: Chest pain d enies. C ough d enies. W heezing?denies. G astrointestinal: Abdominal pain d enies. N ausea d enies. V omiting d enies. * Active Problem List E66.3 Over weight Modified On:12/27/2023W/U Status:confirmed N83.292 Other ovarian cyst, left side Modified On:12/27/2023W/U Status:confirmed N92.1 Breakthrough bleedin g Modified On:12/27/2023/U Status:confirmed L03.90 Cellulitis Modified On:12/27/2023 Status:confirmed L25.9 Contact dermatitis Modified On:12/27/2023 Status:confirmed M54.89 Inflammatory back pa in Modified On:12/27/2023 Status:confirmed J01.90 Acute inflammation o f sinus Modified On:12/27/2023 Status:confirmed L29.9 Chronic pruritus Modified On:12/27/2023 Status:confirmed G47.00 Insomnia Modified On:12/27/2023 Status:confirmed M10.9 Gout Modified On:12/27/2023 Status:confirmed D64.9 Anemia Modified On:12/27/2023 Status:confirmed F43.10 Post traumatic stres s disorder Modified On:12/27/2023 Status:confirmed F43.22 Adjustment disorder with anxiety Modified On:12/27/2023 Status:confirmed Z00.00 Well adult Modified On:12/27/2023 Status:confirmed E78.00 Pure hypercholestero lemia, unspecified Modified On:01/04/2024 Status:confirmed M79.672 Foot pain, left Modified On:04/17/2024 Status:confirmed * Medical History: * Surgical History: o ral surgery tonsilectomy d and c 2003 4 c sections * Hospitalization/Major Diagno stic Procedure: N o Hospitalization History. * Family History: F ather: alive, diagnosed with Unspecified essential hypertension. M other: alive, diagnosed with Diabetes mellitus without mention of complication, type II or unspecified type, not stated as uncontrolled. 5 brother(s) , 2 sister(s) - healthy. 4 daughter(s) - healthy. . * Social History: T obacco Use: T obacco Control (Standard) T obacco use: N onsmoker * Medications: T akingAspirin 81(Aspirin) 81 MG Tablet Delayed Release 1 tablet Orally Once a day Simvastatin 40 MG Tablet take 1 tablet by mouth every evening Wellbutrin XL(buPROPion HCl ER (XL)) 300 MG Tablet Extended Release 24 Hour 1 tablet in the morning Orally Once a day Medication List reviewed and reconciled with the patientTaking Aspirin 81(Aspirin) 81 MG Tablet Delayed Release 1 tablet Orally Once a day Taking Simvastatin 40 MG Tablet take 1 tablet by mouth every evening Taking Wellbutrin XL(buPROPion HCl ER (XL)) 300 MG Tablet Extended Release 24 Hour 1 tablet in the morning Orally Once a day Medication List reviewed and reconciled with the patient * Allergies: P enicillin: anaphylaxisBactrim: hivesCefaclor: anaphylaxisno[Allergies Verified] Objective: * Vitals: W t:157lbs, Ht: 59 in, BP:112/72mm Hg, Temp:99.3F, BMI:31.71Index, Ht-cm: 149.86 cm, Wt-k.21 kg. * Examination: G eneral Examination: GENERAL APPEARANCE: in no acute distress, well developed, well nourished. ENT: ear and nose external appearance normal, tympanic membranes clear bilaterally, facial tenderness to palpation over sinuses. EYES: pupils equal, round, reactive to light and accomodations. ORAL CAVITY: mucosa moist. NECK: n tabby supple, full range of motion, no cervical lymphadenopathy. LUNGS: c lear to auscultation bilaterally. CARDIO: no murmurs, regular rate and rhythm, S1, S2 normal. ABDOMEN: soft, nontender , not distended, bowel sounds are active. SKIN: no suspicious lesions, warm and dry. EXTREMITIES: no clubbing, cyanosis, or edema. NEUROLOGIC: nonfocal, motor strength of upper/lower extremities intact , sensory exam intact. Assessment: * Assessment: 1. A cute non-recurrent sinusitis, unspecified location - J01.90 (Primary) 2 .?Nasal congestion - R09.81 Plan: * Treatment: * Procedure Codes: * Preventive Medicine: Screenings/Counseling: B FL ACTION PLAN Above Normal BMI Follow-up D ietary management education, guidance, and counseling * Follow Up: 3 -5 days if not improving * * Sign off status: Completed Visit Status: C HK (Check Out) true * Provider: Juliane Watts ([facility])MD Date: 0 09/11/2024 Generated for Fideli surendra/Marcus/eTransmitting on: 0 01/08/2025 11:35 AM EDT History and Physical Notes * HPI (History of Present Illness) Category Sub-Category Detail Notes Category Not es General gre nasal drain age Examination Category Sub-Category Detail Notes Category Not es General Examination GENERAL APPEARANCE: in no ac vianey distress, well developed, well nourished ENT: ear and nose externa l appearance normal, tympanic membranes clear bilaterally, facial tenderness to palpation over sinuses EYES: pupils equal, round, reactive to light and accomodations NECK: neck supple, full ra nge of motion, no cervical lymphadenopathy CARDIO: no murmurs, regular rate and rhythm, S1, S2 normal LUNGS: clear to auscultatio n bilaterally ABDOMEN: soft, nontender , no t distended, bowel sounds are active NEUROLOGIC: nonfocal, motor stre ngth of upper/lower extremities intact , sensory exam intact SKIN: no suspicious lesion s, warm and dry EXTREMITIES: no clubbing, cyanosi s, or edema ORAL CAVITY: mucosa moist
--- OUTSIDE RECORDS SUMMARY | 2024-12-26 09:00 | XMS_ITS | Encounter Summary ---
Author Organization [facility] Address [address] [place] [address] Care Team Providers Care Double End Chucking Machine Operator Name Role Phone Darshan Wtats MD Primary Care Provider [phone] Reason for Visit * Reason Comments Routine Visit Encounter Details Date Type Department Care Team (Late st Contact Info) Description 12/26/2024 9:00 AM EDT Routine [facility] [address] [place] [phone] Kannan Vega, DO [address] [facility] [place] [address] 32 weeks gestation of ; Third trimester Social History Tobacco Use Types Packs/Day Years Used Date Smoking Tobacco: Never Smokeless Tobacco: Never Alcohol Use Standard Drinks/Week Comments Yes 1 (1 standard drink = 0.6 oz pur e alcohol) caffeine intake: occasionally Estimated Date of Delivery Comme nts Yes 02/17/2025 Based on last me nstrual period of 05/13/2024, unknown period. Sex and Gender Information Value Date Recorded Sex Assigned at Not on file Legal Sex Female 7:28 PM EDT Gender Identity Not on file Sexual Orientation Not on file documented as of this encounter Last Filed Vital Signs Vital Sign Reading Time Taken Comments Blood Pressure 110/68 12/26/2024 9:35 AM EDT Pulse - - Temperature - - Respiratory Rate - - Oxygen Saturation - - Inhaled Oxygen Concentration - - Weight 72.2 kg (159 lb 1.9 oz) 12/26/2024 9:35 A M EDT Height - - Body Mass Index 31.08 03/01/2023 1:24 PM EDT documented in this encounter Progress Notes * Lise Calderon, HAZARDOUS MATERIALS WASTE TECHNICIAN - 12/26/2024 9:00 AM EDT Reason for Appointment: Patient ID: Jannie Sanon is a 39 y.o. female who presents for Routine Visit Patient presents today for Return OB appointment. MEDICATIONS Current Outpatient Medications Medication Instructions aspirin 81 mg, Daily buPROPion XL (WELLBUTRIN XL) 300 mg, Every morning cholecalciferol (Vitamin D-3) 25 MCG (1000 UT) capsule Daily citalopram (CELEXA) 20 mg, Daily RT co-enzyme Q-10 30 mg, Daily omega-3 (FISH OIL) 300 mg, Daily MV-Min-Fe Fum-FA-DHA ( 1 PO) 1 tablet, Daily simvastatin (Zocor) 40 MG tablet 1 tablet, Every evening venlafaxine XR (EFFEXOR XR) 37.5 mg, Oral, Daily, Do not crush or chew. ALLERGIES Allergies Allergen Reactions Cefaclor Anaphylaxis Penicillin G Anaphylaxis Penicillins Unknown Other Reaction(s): Abdominal discomfort Sulfamethoxazole-Trimethoprim Other Reaction(s): hives PROBLEMS Active Ambulatory Problems Diagnosis Date Noted [...] LOW TRANSVERSE x4 PAP SMEAR 06/18/2021 negative NE DILATION & CURETTAGE DX&/THER NONOBSTETRIC TONSILLECTOMY TUBAL LIGATION reversal REVIEW OF SYSTEMS Review of Systems: Review of Systems Constitutional: Negative. HENT: Negative. Eyes: Negative. Respiratory: Negative. Cardiovascular: Negative. Gastrointestinal: Negative. Genitourinary: Negative. Musculoskeletal: Negative. Skin: Negative. Neurological: Negative. All other systems reviewed and are negative. Hematological: Negative. Endocrine: Negative. Allergic/Immunologic: Negative. OBJECTIVE Objective: Physical Exam Constitutional: Appearance: Normal appearance. She is well-developed. Cardiovascular: Rate and Rhythm: Normal rate and regular rhythm. Pulmonary: Effort: Pulmonary effort is normal. Breath sounds: Normal breath sounds. Abdominal: General: Bowel sounds are normal. There is no distension. Palpations: Abdomen is soft. Tenderness: There is no abdominal tenderness. There is no guarding or rebound. Musculoskeletal: General: No swelling. Normal range of motion. Right lower leg: No edema. Left lower leg: No edema. Neurological: Mental Status: She is alert and oriented to person, place, and time. Skin: General: Skin is warm and dry. Psychiatric: Mood and Affect: Mood normal. Behavior: Behavior normal. Vitals and nursing note reviewed. Exam conducted with a beam builder helper present. Vitals: Estimated body mass index is 31.08 kg/m?? as calculated from the following: Height as of 03/01/23: 5'. Weight as of this encounter: 159 lb 1.9 oz. BP: 110/68 Patient's last menstrual period was 05/13/2024. ASSESSMENT & PLAN ICD-10-CM 1. 32 weeks gestation of Z3A.32 POCT urinalysis dipstick manually resulted 2. Third trimester Z34.93 POCT urinalysis dipstick manually resulted Return OB: Patient presents today for a routine obstetrics appointment. Patient is currently 32w3d . Patient states she is doing well but has complaints of being tired due to current . Patient has verbalizes frequent movement. labor precautions was discussed/given and patient was instructed to perform kick counts three times a day. Pt to continue NST/BPP. Orders Placed This Encounter Procedures POCT urinalysis dipstick manually resulted Follow Up: Patient is to return to office in 2 week for routine OB appointment. Documented by Lise Calderon LPN on behalf of: Kannan Vega DO documented in this encounter Plan of Treatment Upcoming Encounters Date Type Department Care Team ([facility] st Contact Info) Description 01/15/2025 10:00 AM EDT Routine [facility] [address] [place] [phone] Kannan Vega DO [address] [facility] [address] [place], [place] [id number] documented as of this encounter Procedures Procedure Name Priority Date/Time Associated Diagnosis Comments POCT URINALYSIS DIPSTICK Routine 12/26/2024 9:40 AM EDT 32 weeks gestation of Third trimester documented in this encounter Results * POCT urinalysis dipstick manually resulted (12/26/2024 9:40 AM EDT) Color, UA Yellow Clarity, UA Clear Glucose, UA Negative Negative - 2000(110) ++++ mg/dL Bilirubin, UA Negative Negative - 4(70) +++ mg/dL Ketones, UA Negative Negative - 160(16) ++++ mg/dL Spec Grav, UA 1.015 1 - 1.03 Blood, UA Negative Negative - 50 Doroteo/mcL pH, UA 7.0 5 - 9 Protein, UA Negative Negative - 2000(20) ++++ mg/dL Urobilinogen, UA 0.2 0.2 - 12 mg/dL Leukocytes, UA Negative Negative - 500+++ Celina/mcL Nitrite, UA Negative Negative - Positive Urine 12/26/2024 9:40 AM EDT Kannan Vega DO POINT OF CARE TEST ENTER/EDIT OR DERABLES Final Result documented in this encounter Visit Diagnoses Diagnosis 32 weeks gestation of Third trimester state, incidental documented in this encounter Care Teams Double End Chucking Machine Operator Relationship Specialty Start Date End Date Darshan Watts MD [address] [facility] [place] [phone] PCP - General Family Medicine 12/28/22 documented as of this encounter
--- OUTSIDE RECORDS SUMMARY | 2025-01-08 10:10 | XMS_ITS | Encounter Summary ---
Author Organization [facility] Address [address] [place] [address] Care Team Providers Care Partner Integration Planner Name Role Phone Darshan Watts MD Primary Care Provider [phone] Reason for Visit * Reason Comments Routine Visit Encounter Details Date Type Department Care Team (Late st Contact Info) Description 01/08/2025 10:10 AM EDT Routine [facility] [address] [place] [phone] Kannan Vega, DO [address] [facility] [place] [address] Third trimester ; 34 weeks gestation of Social History Tobacco Use Types Packs/Day Years [...] Sign Reading Time Taken Comments Blood Pressure 112/68 01/08/2025 10:41 AM EDT Pulse - - Temperature - - Respiratory Rate - - Oxygen Saturation - - Inhaled Oxygen Concentration - - Weight 72 kg (158 lb 12.8 oz) 01/08/2025 10:41 A M EDT Height - - Body Mass Index 31.01 03/01/2023 1:24 PM EDT documented in this encounter Plan of Treatment Upcoming Encounters Date Type Department Care Team (Late st Contact Info) Description 01/15/2025 10:00 AM EDT Routine [facility] [address] [place] [phone] Kannan Vega, [address] [place] [address] [address] [place], [place] [id number] documented as of this encounter Procedures Procedure Name Priority Date/Time Associated Diagnosis Comments POCT URINALYSIS DIPSTICK Routine 01/08/2025 10:45 AM EDT Third trimester 34 weeks gestation of documented in this encounter Results * POCT urinalysis dipstick manually resulted (01/08/2025 10:45 AM EDT) Color, UA Yellow Clarity, UA Clear Glucose, UA Negative Negative - 2000(110) ++++ mg/dL Bilirubin, UA Negative Negative - 4(70) +++ mg/dL Ketones, UA Negative Negative - 160(16) ++++ mg/dL Spec Grav, UA 1.020 1 - 1.03 Blood, UA Negative Negative - 50 Doroteo/mcL pH, UA 5.5 5 - 9 Protein, UA Negative Negative - 2000(20) ++++ mg/dL Urobilinogen, UA 1.0 0.2 - 12 mg/dL Leukocytes, UA Negative Negative - 500+++ Celina/mcL Nitrite, UA Negative Negative - Positive Urine 01/08/2025 10:4 5 AM EDT Kannan Vega DO POINT OF CARE TEST ENTER/EDIT OR DERABLES Final Result documented in this encounter Visit Diagnoses Diagnosis Third trimester state, incidental 34 weeks gestation of documented in this encounter Care Teams Partner Integration Planner Relationship Specialty Start Date End Date Darshan Watts MD [address] [facility] [place] [phone] PCP - General Family Medicine 12/28/22 documented as of this encounter
--- OUTSIDE RECORDS SUMMARY | 2025-01-08 11:33 | XMS_ITS | Encounter Summary ---
Author Organization [facility] Address [address] [place] [address] Care Team Providers Care Vacuum Bottle Assembler Name Role Phone Darshan Watts MD Primary Care Provider [phone] Encounter Details Date Type Department Care Team (Late st Contact Info) Description 01/08/2025 Bamboo flowsheet [facility] [address] [place] [address] [facility] [place], [facility]11 Social History Tobacco Use Types Packs/Day [...] Routine [facility] [address] [place] [address] Kannan Vega, DO [facility] [address] [place], [facility]11 documented as of this encounter Visit Diagnoses Not on filedocumented in this encounter Care Teams Vacuum Bottle Assembler Relationship Specialty Start Date End Date Darshan Watts MD [address] [place] [address] PCP - General Family Medicine 12/28/22 documented as of this encounter
--- OUTSIDE RECORDS SUMMARY | 2025-01-08 11:33 | XMS_ITS | Encounter Summary ---
Author Organization [facility] tem Address [id number] [address] [place] [address] Care Team Providers Care Plant Operator/Shift Supervisor Name Role Phone Darshan Watts MD Primary Care Provider [phone] Encounter Details Date Type Department Care Team (Late st Contact Info) Description 09/08/2024 Orders Only Maternal- Medicine at [facility] [address] [place] [address] Kannan Vega, DO [address] [facility] [place] [address] Social History Tobacco Use Types Packs/Day Years Used Date Smoking Tobacco: Never Smokeless Tobacco: Never Alcohol Use Standard Drinks/Week Comments Not Currently 0 (1 standard drink = 0.6 oz pur e alcohol) occassionally Childcare Answer Date Recorded Childcare Unknown 01/18/2019 Employment Answer Date Recorded Employment Unknown 01/18/2019 Purpose - Life Answer Date Recorded Purpose [...] as of this encounter Plan of Treatment Not on file documented as of this encounter Procedures Procedure Name Priority Date/Time Associated Diagnosis Comments UNLISTED LAB TEST Routine 07/29/2024 9:25 AM EST documented in this encounter Results * Unlisted Lab Test (07/29/2024 9:25 AM EST) us Kannan Vega DO LAB BLOOD ORDERABLES Final Resu lt MANUALLY TRANSCRIBED RESULTS documented in this encounter Visit Diagnoses Not on filedocumented in this encounter Care Teams Plant Operator/Shift Supervisor Relationship Specialty Start Date End Date Darshan Watts MD PCP - General 04/04/18 documented as of this encounter
--- OUTSIDE RECORDS SUMMARY | 2025-01-08 11:33 | XMS_ITS | Encounter Summary ---
Author Organization [facility] Address [address] [place] [address] Care Team Providers Care Ground Crew Lines Person Name Role Phone Darshan Watts MD Primary Care Provider [phone] Encounter Details Date Type Department Care Team (Late st Contact Info) Description 01/04/2025 Clinisync Result Encounter [facility] External Department Unsolicited Norbert Vega, DO [address] [place], [place] [phone] Social History Tobacco Use Types Packs/Day Years [...] Routine [facility] [address] [place] [phone] Norbert Vega DO [address] [place] [address] documented as of this encounter Procedures Procedure Name Priority Date/Time Associated Diagnosis Comments US OB BPP W NON-STRESS 01/04/2025 11:36 AM EDT documented in this encounter Results * US OB BPP W NON-STRESS (01/04/2025 11:36 AM EDT) Anatomical Region Laterality Modality Other 01/04/2025 11:3 6 AM EDT Narrative 01/04/2025 11:39 [place] [address] Ultrasound Report Signed Patient: LB SANON MR#: [id number] : 1985 Acct:[id number] Age/Sex: 39 / F ADM Date: 01/04/25 Loc: [facility] 250-[address]: Norbert Vega D.O. Ordering Physician: Norbert Vega D.O. Date of Service: 01/04/25 Procedure(s): US OB BPP w non-stress Accession Number(s): [id number] cc: Norbert Vega D.O.; Darshan Watts M.D. The [place] [address] Patient Name: LB SANON MRN: [id number] date: 1985 Sex: F Assigned Patient Location: Current Patient Location: US Accession/Order Number: [id number] Exam Date: 01/04/2025 11:35 Report Date: 01/04/2025 11:36 At the request of: NORBERT VEGA DO Procedure: US OB BPP w non-stress BIOPHYSICAL PROFILE: CLINICAL INFORMATION: Multigravida of advanced maternal age COMPARISON: 12/28/2024 There is a single live intrauterine gestation in cephalic presentation. The reported gestational age is 33 weeks 5 days. The heart rate phbdzdiv337 beats per minute. FINDINGS: TONE: 1 or [...] greater than 2 cm [Y] 2/2 LILIANA: 11.8 cm. This is in low-normal range. Total score: 8/8 US/US OB BPP w non-stress IMPRESSION: NORMAL BIOPHYSICAL PROFILE. Impression dictated by: Lise Bolanos M.D. 01/04/2025 11:36 AM Dictation Location: [place] [address] Electronically authenticated by: [id number] Y Date: 01/04/2025 11:36 Dictated By: Lise Bolanos M.D. Signed By: 01/04/25 1139 DD/ 1136 TD/TT: Archivist Political History: Procedure Note Radiology, Radiologist, MD - 01/04/2025 [place] [address] Ultrasound Report Signed Patient: LB SANON RMR#: [id number] : 1985Acct:[id number] Age/Sex: 39 / FADM Date: 01/04/25 Loc: [facility] [address]: Norbert Vega D.O. Ordering Physician: Norbert Vega D.O. Date of Service: 01/04/25 Procedure(s): US OB BPP w non-stress Accession Number(s): [id number] cc: Norbert Vega D.O.; Darshan Watts M.D. The [place] [id number] Patient Name: LB SANON MRN: [id number] date: 1985 Sex: F Assigned Patient Location: US Current Patient Location: US Accession/Order Number: [id number] Exam Date: 01/04/2025 11:35 Report Date: 01/04/2025 11:36 At the request of: NORBERT VEGA DO Procedure: US OB BPP w non-stress BIOPHYSICAL PROFILE: CLINICAL INFORMATION: Multigravida of advanced maternal age COMPARISON: 12/28/2024 There is a single live intrauterine gestation in cephalic presentation.The reported gestational age is 33 weeks 5 days. The heart qyydzrjedgss424 beats per minute. FINDINGS: TONE: 1 or [...] greater than 2 cm [Y] 2/2 LILIANA: 11.8 cm. This is in low-normal range. Total score: 8 US/US OB BPP w non-stress IMPRESSION: NORMAL BIOPHYSICAL PROFILE. Impression dictated by: Lise Bolanos M.D. 01/04/2025 11:36 AM Dictation Location: [place] [address] Electronically authenticated by: [id number] Y Date: 1:36 Dictated By: Lise Bolanos M.D. Signed By:01/04/25 1139 DD/ 1136 TD/TT: Archivist Political History: us Norbert Silvia DO [facility] Final Result documented in this encounter Visit Diagnoses Not on filedocumented in this encounter Care Teams Ground Crew Lines Person Relationship Specialty Start Date End Date Darshan Watts MD [address] [place] [address] PCP - General Family Medicine 12/28/22 documented as of this encounter
--- OUTSIDE RECORDS SUMMARY | 2025-01-08 11:33 | XMS_ITS | Encounter Summary ---
Author Organization [facility] Address [address] [place] [address] Care Team Providers Care Subgrade Roller Operator Name Role Phone Darshan Watts MD Primary Care Provider [phone] Encounter Details Date Type Department Care Team (Late st Contact Info) Description 12/26/2024 Bamboo flowsheet [facility] [address] [place] [address] Kannan Vega [facility] [place], [facility]11 Social History Tobacco Use Types Packs/Day [...] Description 01/15/2025 10:00 AM EDT Routine [facility] [address] [place] [address] Kannan Vega, DO [facility] [place], [facility]11 documented as of this encounter Visit Diagnoses Not on filedocumented in this encounter Care Teams Subgrade Roller Operator Relationship Specialty Start Date End Date Darshan Watts MD [address] [place] [address] PCP - General Family Medicine 12/28/22 documented as of this encounter
--- OUTSIDE RECORDS SUMMARY | 2025-01-08 11:34 | XMS_ITS | Encounter Summary ---
Author Organization [facility] Address [address] [place] [address] Care Team Providers Care Sales Force Administrator Name Role Phone Darshan Watts MD Primary Care Provider [phone] Encounter Details Date Type Department Care Team (Late st Contact Info) Description 12/11/2024 Abstract [facility] [address] [place] [address] Kannan Vega, DO [address] [place] [address] [place], [facility]11 Social History Tobacco Use Types Packs/Day [...] 10:00 AM EDT Routine [facility] [address] [place] [address] Kannan Vega, DO [facility] [place], [facility]11 documented as of this encounter Visit Diagnoses Not on filedocumented in this encounter Care Teams Sales Force Administrator Relationship Specialty Start Date End Date Darshan Watts MD [address] [place] [address] PCP - General Family Medicine 12/28/22 documented as of this encounter
--- OUTSIDE RECORDS SUMMARY | 2025-01-08 11:34 | XMS_ITS | Encounter Summary ---
Author Organization [facility] Address [address] [place] [address] Care Team Providers Care Chemical Production Technician Name Role Phone Darshan Watts MD Primary Care Provider [phone] Encounter Details Date Type Department Care Team (Late st Contact Info) Description 12/28/2024 Clinisync Result Encounter [facility] External Department Unsolicited Norbert Vega, DO [address] [place], [place] [phone] Social History Tobacco Use Types Packs/Day Years [...] Routine [facility] B[facility] [address] [place] [phone] Norbert Vega DO [address] [place] [address] documented as of this encounter Procedures Procedure Name Priority Date/Time Associated Diagnosis Comments US OB BPP W NON-STRESS 12/28/2024 10:16 AM EDT documented in this encounter Results * US OB BPP W NON-STRESS (12/28/2024 10:16 AM EDT) Anatomical Region Laterality Modality Other 12/28/2024 10:1 6 AM EDT Narrative 12/28/2024 10:19 [place] [address] Ultrasound Report Signed Patient: LB SANON MR#: [id number] : 1985 Acct:[id number] Age/Sex: 39 / F ADM Date: 12/28/24 Loc: US Attending Dr: Norbert Vega D.O. Ordering Physician: Norbert Vega D.O. Date of Service: 12/28/24 Procedure(s): US OB BPP w non-stress Accession Number(s): [id number] cc: Norbert Vega D.O.; Darshan Watts M.D. The [place] [address] Patient Name: LB SANON MRN: [id number] date: 1985 Sex: F Assigned Patient Location: [facility] Current Patient Location: Accession/Order Number: [id number] Exam Date: 12/28/2024 10:13 Report Date: 12/28/2024 10:16 At the request of: NORBERT VEGA DO Procedure: US OB BPP w non-stress BIOPHYSICAL PROFILE: CLINICAL INFORMATION: Multigravida of advanced maternal age O09.523 COMPARISON: 12/21/2024 There is a single live intrauterine gestation in cephalic presentation. The reported gestational age is 32 weeks 5 days. The heart rate mzlqpbaf135 beats per minute. FINDINGS: TONE: 1 or [...] Bolanos M.D. 12/28/2024 10:16 AM Dictation Location: [place] [address] Electronically authenticated by: [id number] Y Date: 12/28/2024 10:16 Dictated By: Lise Bolanos M.D. Signed By: 12/28/24 1019 DD/ 1016 TD/TT: Tamping Machine Operator: Procedure Note Radiology, Radiologist, - 12/28/2024 [place] [address] Ultrasound Report Signed Patient: LB SANON RMR#: [id number] : 1985Acct:[id number] Age/Sex: 39 / FADM Date: 12/28/24 Loc: US Attending Dr: Norbert Vega D.O. Ordering Physician: Norbert Vega D.O. Date of Service: 12/28/24 Procedure(s): US OB BPP w non-stress Accession Number(s): [id number] cc: Norbert Vega D.O.; Darshan Watts M.D. The [place] [id number] Patient Name: LB SANON MRN: [id number] date: 1985 Sex: F Assigned Patient Location: [facility] Current Patient Location: Accession/Order Number: [id number] Exam Date: 12/28/2024 10:13 Report Date: 12/28/2024 10:16 At the request of: NORBERT VEGA DO Procedure: US OB BPP w non-stress BIOPHYSICAL PROFILE: CLINICAL INFORMATION: Multigravida of advanced maternal age O09.523 COMPARISON: 12/21/2024 There is a single live intrauterine gestation in cephalic presentation.The reported gestational age is 32 weeks 5 days. The heart cohscnngdreq773 beats per minute. FINDINGS: TONE: 1 or [...] Bolanos M.D. 12/28/2024 10:16 AM Dictation Location: [place] [address] Electronically authenticated by: [id number] Y Date: 0:16 Dictated By: Lise Bolanos M.D. Signed By:12/28/24 1019 DD/ 1016 TD/TT: Tamping Machine Operator: [facility] DO [facility] Final Result documented in this encounter Visit Diagnoses Not on filedocumented in this encounter Care Teams Chemical Production Technician Relationship Specialty Start Date End Date Darshan Watts MD [address] [place] [phone] PCP - General Family Medicine 12/28/22 documented as of this encounter
--- OUTSIDE RECORDS SUMMARY | 2025-01-08 11:34 | XMS_ITS | Patient Health Record ---
Author Organization [facility] in [place] Address [address] [place] [address] Care Team Providers Care Nitric Acid Plant Operator Name Role Phone Emeka Bell Primary Care Provider QUOC BELL Unavailable [phone] Allergies Allergen (clinical drug ingredient) Drug/Non Drug Allergy documented on EMR Reaction Allergy Type Onset Date Status sulfamethoxazole / trimethoprim Bactrim hives Drug Allergy Active cefaclor Cefaclor anaphylaxis Drug Allergy Activ e Penicillin anaphylaxis Drug Allergy Acti ve Results Component Value Reference Range Notes Progesterone Reviewed date:03/16/2024 12:59:10 PM Interpretation: Performing Lab: Notes/Report: [facility] , Progesterone 11.8 . ng/mL Postmenopausal 0.0 - 0.1 Manager International: Blaise Thompson PhD, Phone: [phone] Luteal phase 1.8 - 23.9 Ovulation phase 0.1 - 12.0 Second trimester 25.4 - 83.3 Follicular phase 0.1 - 0.9 Third trimester 58.7 - 214.0 Performed at: CB - [facility] First trimester 11.0 - 44.[address] [place] [address] [phone] Performing Lab: see note LC - [facility] LB XR foot LT min 3V Reviewed date:04/19/2024 09:29:12 PM Interpretation: Performing Lab: Notes/Report: Source Facility: [facility]-[address] [place] [address] [place] [address] XRay Report Signed Patient: JANNIE SANON MR#: [id number] : 1985 Acct:[id number] Age/Sex: 38 / F ADM Date: 04/17/24 Loc: RAD Attending Dr: Quoc Bell M.D. Ordering Physician: Quoc Bell M.D. Date of Service: 04/17/24 Procedure(s): XR foot LT min 3V Accession Number(s): [id number] cc: Quoc Bell M.D. [place] [address] Patient Name: JANNIE SANON MRN: [id number] date: 1985 Sex: F Assigned Patient Location: RAD Current Patient Location: Accession/Order Number: [id number] Exam Date: 04/17/2024 17:15 Report Date: 04/19/2024 [...] Signed By: 04/19/24 1026 DD/ 1024 TD/TT: Clamp Truck Driver: [place] [address] XRay Report Signed Patient: JANNIE SANON MR#: [id number] : 1985 Acct:[id number] Age/Sex: 38 / F ADM Date: 04/17/24 Loc: RAD Attending Dr: Sinan Bell M.D. Ordering Physician: Quoc Bell M.D. Date of Service: 04/17/24 Procedure(s): XR ally t LT min 3V Accession Number(s): [id number] cc: Quoc Bell M.D. [place] [address] Patient Name: JANNIE SANON MRN: [facility]:[id number] date: 1985 Sex: F Assigned Patient Location: [facility] Current Patient Location: Accession/Order Number: [id number] Exam Date: 04/17/2024 17:15 Report Date: 04/19/2024 [...] Signed By: 04/19/24 1026 DD/ 1024 TD/TT: Clamp Truck Driver: ÁNGELA PORTER Reviewed date:06/19/2024 06:30:29 PM Interpretation: Performing Lab: Notes/Report: [facility] , HCG Quantitative 3108 5-50 0.2-1 WEEK 15,000-200,000 6-8 WEEKS 10,000-100,000 2-3 MONTHS 1,000-50,000 4-5 WEEKS 500-10,000 3-4 WEEKS 50-500 1-2 WEEKS 100-5,000 2-3 WEEKS 10,000-100,000 5-6 WEEKS Performing Lab: see note ML - [facility] LB CBC AUTO DIFF Reviewed date:10/23/2024 08:04:33 PM Interpretation: Performing Lab: Notes/Report: [facility] , White Blood Count 9.3 4.0-11.0 [...] Performing Lab: see note ML - [facility] LB UA (CLEAN or CATCH) FIREWOOD CUTTER or M ICRO IF IND. Reviewed date:11/30/2024 06:40:07 PM Interpretation: Performing Lab: Notes/Report: [facility] , Color Urine LT. YELLOW YELLOW Clarity Urine CLEAR CLEAR Specific [place] Urine 1.010 1.005-1.025 pH Urine 6.5 5.0-9.0 Protein Urine NEGATIVE NEG/TRACE mg/dL Glucose Urine UA NEGATIVE NEGATIVE mg/dL Bilirubin Urine NEGATIVE NEGATIVE Ketones Urine NEGATIVE NEGATIVE mg/dL Blood Urine NEGATIVE NEGATIVE Nitrite Urine NEGATIVE NEGATIVE Urobilinogen Urine 0.2 0.2-1.0 EU/dL Leukocyte Esterase Urine NEGATIVE NEGATIVE Urine Microscopic Indicated NO Performing Lab: see note ML - [facility] LB CBC AUTO DIFF Reviewed date:12/10/2024 12:27:48 PM Interpretation: Performing Lab: Notes/Report: [facility] , White Blood Count 16.6 4.0-11.0 [...] Performing Lab: see note ML - [facility] LB DRUG SCREEN RAPID (URINE) Reviewed date:12/10/2024 12:27:48 PM Interpretation: Performing Lab: Notes/Report: [facility] , Cannabinoid Screen Urine NEGATIVE NEGATIVE Phencyclidine Screen Urine NEGATIVE NEGATIVE Cocaine Screen Urine NEGATIVE NEGATIVE Methamphetamines Screen Urine NEGATIVE NEGATIVE Opiate Screen Urine NEGATIVE NEGATIVE Amphetamine Screen Urine NEGATIVE NEGATIVE Benzodiazepines Screen Urine NEGATIVE NEGATIVE Tricyclic Antidepressant Urine NEGATIVE NEGATIVE Methadone Screen Urine NEGATIVE NEGATIVE Barbiturates Screen Urine NEGATIVE NEGATIVE Oxycodone Screen Urine NEGATIVE NEGATIVE Buprenorphine Screen Urine NEGATIVE NEGATIVE TCA (Trycyclic Antidepressants): 300 ng/mL MTD (Methadone): 200 ng/mL MARKY (Cocaine): 150 ng/mL PCP (Phencyclidine): 25 ng/mL BUP (Buprenorphine): 10 ng/mL OXY (Oxycodone): 100 ng/mL BAR (Barbiturates): 200 ng/mL DRUG CLASS TEST SYSTEM CUT-OFF CONCENTRATIONS ARE AMP (Amphetamine): 500 ng/mL mAMP (Methamphetamine): 500 ng/mL BZO (Benzodiazepines): 150 ng/mL THC (Cannabinoids): 50 ng/mL FOLLOWS: OPI (Opiates): 100 ng/mL Performing Lab: see note ML - [facility] LB PROF CHEM 8 (BAS METB) Reviewed date:12/10/2024 12:27:48 PM Interpretation: Performing Lab: Notes/Report: [facility] , Sodium 137 136-145 mmol/L Potassium [...] 8.6 8.5-10.1 mg/dL Performing Lab: see note - [facility] LB Urine Culture, Routine Reviewed date:12/12/2024 09:20:54 AM Interpretation: Performing Lab: Notes/Report: [facility] , Urine Culture, Routine See Below For Report Urine Culture, Routine Urine Culture, Routine Mixed urogenital stephani Urine Culture, Routine Urine Culture, Routine 10,000-25,000 col nafisa forming units per mL Urine Culture, Routine Urine Culture, Routine Performed at: - [facility] Urine Culture, Routine Urine Culture, Routine [address], [place] [id number] Urine Culture, Routine Urine Culture, Routine Manager International: Tommy Thompson PhD, Phone: [phone] Urine Culture, Routine Performing Lab: see note LC - [facility] LB SEE REPORT - Editorial Project Manager Id information not found for OBX-specific theater company producer legend US OB BPP w non-stress Reviewed date:01/04/2025 05:38:41 PM Interpretation: Performing Lab: Notes/Report: Source Facility: [place] [address] [place] [address] Ultrasound Report Signed Patient: JANNIE SANON MR#: [id number] : 1985 Acct:[id number] Age/Sex: 39 / F ADM Date: 01/04/25 Loc: [facility] 250-[address]: Norbert Vega D.O. Ordering Physician: Norbert Vega D.O. Date of Service: 01/04/25 Procedure(s): US OB BPP w non-stress Accession Number(s): [id number] cc: Norbert Vega D.O.; Quoc Bell M.D. [place] [address] Patient Name: JANNIE SANON MRN: [id number] date: 1985 Sex: F Assigned Patient Location: Current Patient Location: US Accession/Order Number: [id number] Exam Date: 01/04/2025 11:35 Report Date: 01/04/2025 11:36 At the request of: NORBERT VEGA DO Procedure: US OB BPP w non-stress BIOPHYSICAL PROFILE: CLINICAL INFORMATION: Multigravida of advanced maternal age COMPARISON: 12/28/2024 There is a single live intrauterine gestation in cephalic presentation. The reported gestational age is 33 weeks 5 days. The heart rate [id number] beats per minute. FINDINGS: TONE: 1 or [...] Bolanos M.D. 01/04/2025 11:36 AM Dictation Location: [place] [address] Electronically authenticated by: [id number] Y Date: 01/04/2025 11:36 Dictated By: Lise Bolanos M.D. Signed By: 01/04/25 1139 DD/ 1136 TD/TT: Clamp Truck Driver: [place] [address] Ultrasound Report Signed Patient: JANNIE SANON MR#: [id number] : 1985 Acct:[id number] Age/Sex: 39 / F ADM Date: 01/04/25 Loc: [facility] [address]: Norbert Vega D.O. Ordering Physician: Norbert Vega D.O. Date of Service: 01/04/25 Procedure(s): US OB BPP w non-stress Accession Number(s): [id number] cc: Norbert Vega D.O. ; Quoc Bell M.D. [place] [address] Patient Name: JANNIE SANON MRN: [id number] date: 1985 Sex: F Assigned Patient Location: Current Patient Location: US Accession/Order Number: [id number] Exam Date: 01/04/2025 11:35 Report Date: 01/04/2025 11:36 At the request of: NORBERT VEGA DO Procedure: US OB fet al BPP w non-stress BIOPHYSICAL PROFILE: CLINICAL INFORMATION : Multigravida of advanced maternal age COMPARISON: 12/28/2024 There is a single li ve intrauterine gestation in cephalic presentation. The reported gestational age is 33 weeks 5 days. The heart rate [id number] beats per minute. FINDINGS: TONE: 1 or [...] amniotic fluid greater than 2 cm [Y] 2/ LILIANA: 11.8 cm. This i s in low-normal range. Total score: 8/ US/US OB BPP w non-stress IMPRESSION: NORMAL BIOPHYSICAL PROFILE. Impression dictated by: Lise Bolanos M.D. 01/04/2025 11:36 AM Dictation Location: [place] [address] Electronically authenticated by: [id number] Y Date: 01/04/2025 11:36 Dictated By: Lise Bolanos M.D. Signed By: 01/04/25 1139 DD/ 1136 TD/TT: Clamp Truck Driver: Glucose 1 Hour Reviewed date:10/23/2024 08:04:33 PM Interpretation: Performing Lab: Notes/Report: [facility] , Glucose 1 Hour 106 <130 mg/dL Performing Lab: see note ML - [facility] PREG QUANT HCG Reviewed date:06/27/2024 07:58:06 PM Interpretation: Performing Lab: Notes/Report: [facility] , HCG Quantitative 47466 15,000-200,000 6-8 WEEKS 5-50 0.2-1 WEEK 500-10,000 3-4 WEEKS 1,000-50,000 4-5 WEEKS 50-500 1-2 WEEKS 10,000-100,000 2-3 MONTHS 10,000-100,000 5-6 WEEKS 100-5,000 2-3 WEEKS Performing Lab: see note ML - [facility] LB PREG QUANT HCG Reviewed date:06/21/2024 07:32:12 PM Interpretation: Performing Lab: Notes/Report: [facility] , HCG Quantitative 4062 100-5,000 2-3 WEEKS 500-10,000 3-4 WEEKS 5-50 0.2-1 WEEK 15,000-200,000 6-8 WEEKS 50-500 1-2 WEEKS 10,000-100,000 2-3 MONTHS 1,000-50,000 4-5 WEEKS 10,000-100,000 5-6 WEEKS Performing Lab: see note ML - [facility] LB Progesterone Reviewed date:02/15/2024 02:45:45 PM Interpretation: Performing Lab: Notes/Report: [facility] , Progesterone 39.1 . ng/mL Manager International: Blaise Thompson PhD, Phone: [phone] Performed at: [facility] Ovulation phase 0.1 - 12.0 Second trimester 25.4 - 83.3 Follicular phase 0.1 - 0.9 Third trimester 58.7 - 214.[address] [place] [address] [phone] Luteal phase 1.8 - 23.9 Postmenopausal 0.0 - 0.1 First trimester 11.0 - 44.3 Performing Lab: see note - [facility] LB Progesterone Reviewed date:01/16/2024 10:11:22 PM Interpretation: Performing Lab: Notes/Report: [facility] , Progesterone 5.6 . ng/mL Follicular phase 0.1 - 0.9 Manager International: Blaise Thompson PhD, Phone: [phone] Postmenopausal 0.0 - 0.1 Ovulation phase 0.1 - 12.[address] [place] [address] [phone] Third trimester 58.7 - 214.0 Luteal phase 1.8 - 23.9 First trimester 11.0 - 44.3 Second trimester 25.4 - 83.3 Performed at: [facility] Performing Lab: see note LC - [facility] LB US OB BPP w non-stress Reviewed date:12/28/2024 12:36:02 PM Interpretation: Performing Lab: Notes/Report: Source Facility: [place] [address] Ultrasound Report Signed Patient: JANNIE SANON MR#: [id number] : 1985 Acct:[id number] Age/Sex: 39 / F ADM Date: 12/28/24 Loc: US Attending Dr: Norbert Vega D.O. Ordering Physician: Norbert Vega D.O. Date of Service: 12/28/24 Procedure(s): US OB BPP w non-stress Accession Number(s): [id number] cc: Norbert Vega D.O.; Quoc Bell M.D. [place] [address] Patient Name: JANNIE SANON MRN: [id number] date: 1985 Sex: F Assigned Patient Location: [facility] Current Patient Location: Accession/Order Number: [id number] Exam Date: 12/28/2024 10:13 Report Date: 12/28/2024 10:16 At the request of: NORBERT VEGA DO Procedure: US OB BPP w non-stress BIOPHYSICAL PROFILE: CLINICAL INFORMATION: Multigravida of advanced maternal age O09.523 COMPARISON: 12/21/2024 There is a single live intrauterine gestation in cephalic presentation. The reported gestational age is 32 weeks 5 days. The heart rate [id number] beats per minute. FINDINGS: TONE: 1 or [...] Bolanos M.D. 12/28/2024 10:16 AM Dictation Location: [place] [address] Electronically authenticated by: [id number] Y Date: 12/28/2024 10:16 Dictated By: Lise Bolanos M.D. Signed By: 12/28/24 1019 DD/ 1016 TD/TT: Clamp Truck Driver: [place] [address] Ultrasound Report Signed Patient: JANNIE SANON MR#: [id number] : 1985 Acct:[id number] Age/Sex: 39 / F ADM Date: 12/28/24 Loc: US Attending Dr: Norbert Vega D.O. Ordering Physician: Silvia,Norbert D.O. Date of Service: 12/28/24 Procedure(s): US OB BPP w non-stress Accession Number(s): [id number] cc: Norbert Vega D.O. ; Quoc Bell M.D. [place] [address] Patient Name: JANNIE SANON MRN: [id number] date: 1985 Sex: F Assigned Patient Location: [facility] Current Patient Location: Accession/Order Number: [id number] Exam Date: 12/28/2024 10:13 Report Date: 12/28/2024 10:16 At the request of: NORBERT VEGA DO Procedure: US OB fet al BPP w non-stress BIOPHYSICAL PROFILE: CLINICAL INFORMATION : Multigravida of advanced maternal age O09.523 COMPARISON: 12/21/2024 There is a single li ve intrauterine gestation in cephalic presentation. The reported gestational age is 32 weeks 5 days. The heart rate uytrjzav547 beats per minute. FINDINGS: TONE: 1 or [...] Bolanos M.D. 12/28/2024 10:16 AM Dictation Location: [place] [address] Electronically authenticated by: [id number] Y Date: 12/28/2024 10:16 Dictated By: Lise Bolanos M.D. Signed By: 12/28/24 1019 DD/ 1016 TD/TT: Clamp Truck Driver: US OB growth Reviewed date:12/26/2024 06:06:43 PM Interpretation: Performing Lab: Notes/Report: Source Facility: [place] [address] [place] [address] Ultrasound Report Signed with Addenda Patient: JANNIE SANON MR#: [id number] : 1985 Acct:[id number] Age/Sex: 39 / F ADM Date: 12/21/24 Loc: US Attending Dr: Norbert Vega D.O. Ordering Physician: Norbert Vega D.O. Date of Service: 12/21/24 Procedure(s): US OB growth Accession Number(s): [id number] cc: Norbert Vega D.O.; Quoc Bell M.D. ADDENDUM The [place] [address] This is an addendum FINDINGS: An intrauterine [...] Metzger M.D. 12/26/2024 9:59 AM Dictation Location: [place] [address] Patient Electronically authenticated by: [id number] Y Date: 12/26/2024 09:59 Name: JANNIE SANON MRN: [id number] date: 1985 Sex: F Assigned Patient Location: [facility] Current Patient Location: Accession/Order Number: [id number] Exam Date: 12/26/2024 09:59 Report Date: 12/26/2024 09:59 At the request of: NORBERT SILVIA DO Procedure: US OB growth The [place] [id number] Patient Name: JANNIE SANON MRN: [id number] date: 1985 Sex: F Assigned Patient Location: [facility] Current Patient Location: Accession/Order Number: [id number] Exam Date: 12/21/2024 11:39 Report Date: 12/21/2024 11:41 At the request of: NORBERT SILVIA DO Procedure: US OB growth US OB [...] Metzger M.D. 12/21/2024 11:41 AM Dictation Location: [place] [address] Electronically authenticated by: [id number] Y Date: 12/21/2024 11:41 Addendum Dictated By: Jonah Metzger M.D. Addendum Signed By: 12/26/24 002 Addendum Cosigned By: DD/ TD/TT: / [place] [id number] Patient Name: JANNIE SANON MRN: [id number] date: 1985 Sex: F Assigned Patient Location: [facility] Current Patient Location: Accession/Order Number: [id number] Exam Date: 12/21/2024 11:39 Report Date: 12/21/2024 11:41 At the request of: NORBERT SILVIA DO Procedure: US OB growth US OB [...] Metzger M.D. 12/21/2024 11:41 AM Dictation Location: [facility] Electronically authenticated by: [id number] Y Date: 12/21/2024 11:41 Dictated By: Jonah Metzger M.D. Signed By: 12/21/24 1143 DD/ 1141 TD/TT: Clamp Truck Driver: [place] [address] Ultrasound Report Signed with Addenda Patient: JANNIE SANON MR#: [id number] : 1985 Acct:[id number] Age/Sex: 39 / F ADM Date: 12/21/24 Loc: US Attending Dr: Norbert Vega D.O. Ordering Physician: Norbert Vega D.O. Date of Service: 12/21/24 Procedure(s): US OB growth Accession Number(s): [id number] cc: Norbert Vega D.O. ; Quoc Bell M.D. ADDENDUM The [address] [address] This is an addendum FINDINGS: An intrauterine [...] Metzger M.D. 12/26/2024 9:59 AM Dictation Location: [email or web address] Patient Electronically authenticated by: [id number] Y Date: 12/26/2024 09:59 Name: JANNIE SANON MRN: [id number] date: 1985 Sex: F Assigned Patient Location: [facility] Current Patient Location: Accession/Order Number: [id number] Exam Date: 12/26/2024 09:59 Report Date: 12/26/2024 09:59 At the request of: NORBERT VEGA DO Procedure: US OB growth [place] [address] Patient Name: JANNIE SANON MRN: [id number] date: 1985 Sex: F Assigned Patient Location: [facility] Current Patient Location: Accession/Order Number: [id number] Exam Date: 12/21/2024 11:39 Report Date: 12/21/2024 [...] Metzger M.D. 12/21/2024 11:41 AM Dictation Location: [facility] Electronically authenticated by: [id number] Y Date: 12/21/2024 11:41 Addendum Dictated By : Jonah Metzger M.D. Addendum Signed By: 12/26/24 1 002 Addendum Cosigned By: DD/ TD/TT: / [place] [address] Patient Name: JANNIE SANON MRN: [facility]:[id number] date: 1985 Sex: F Assigned Patient Location: [facility] Current Patient Location: Accession/Order Number: [id number] Exam Date: 12/21/2024 11:39 Report Date: 12/21/2024 [...] Metzger M.D. 12/21/2024 11:41 AM Dictation Location: [place] [address] Electronically authenticated by: [id number] Y Date: 12/21/2024 11:41 Dictated By: Jonah Metzger M.D. Signed By: 12/21/24 1143 DD/ 1141 TD/TT: Clamp Truck Driver: US OB BPP w non-stress Reviewed date:12/26/2024 06:06:43 PM Interpretation: Performing Lab: Notes/Report: Source Facility: [facility]-[address] [place] [address] [place] [address] Ultrasound Report Signed with Addenda Patient: JANNIE SANON#: [id number] : 1985 Acct:[id number] Age/Sex: 39 / F ADM Date: 12/21/24 Loc: US Attending Dr: Norbert Vega D.O. Ordering Physician: Norbert Vega D.O. Date of Service: 12/21/24 Procedure(s): US OB BPP w non-stress Accession Number(s): [id number] cc: Norbert Vega D.O.; Quoc Bell M.D. ADDENDUM The [address] [address] This is an addendum FINDINGS: An intrauterine [...] Addendum Cosigned By: DD/ TD/TT: / ADDENDUM US/ OB BPP w non-stress IMPRESSION: Single live IUP with an estimated gestational age of 30 weeks and 2 days and normal heart rate. Impression dictated by: Jonah Metzger M.D. 12/26/2024 10:00 AM Dictation [facility] Patient Electronically authenticated by: [id number] Y Date: 12/26/2024 10:00 Name: JANNIE SANON MRN: [id number] date: 1985 Sex: F Assigned Patient Location: [facility] Current Patient Location: Accession/Order Number: [id number] Exam Date: 12/26/2024 09:57 Report Date: 12/26/2024 10:00 At the request of: NORBERT VEGA DO Procedure: US OB BPP w non-stress The [address] [address] Patient Name: JANNIE SANON MRN: [id number] date: 1985 Sex: F Assigned Patient Location: [facility] Current Patient Location: Accession/Order Number: [id number] Exam Date: 12/21/2024 11:37 Report Date: 12/21/2024 [...] Metzger M.D. 12/21/2024 11:39 AM Dictation Location: [place] [address] Electronically authenticated by: [id number] Y Date: 12/21/2024 11:39 Addendum Dictated By: Jonah Metzger M.D. Addendum Signed By: 12/26/24 003 Addendum Cosigned By: DD/ TD/TT: / [place] [id number] Patient Name: JANNIE SANON MRN: [id number] date: 1985 Sex: F Assigned Patient Location: [facility] Current Patient Location: Accession/Order Number: [id number] Exam Date: 12/21/2024 11:37 Report Date: 12/21/2024 [...] Metzger M.D. 12/21/2024 11:39 AM Dictation Location: [facility] Electronically authenticated by: [id number] Y Date: 12/21/2024 11:39 Dictated By: Jonah Metzger M.D. Signed By: 12/21/24 1141 DD/ 1139 TD/TT: Clamp Truck Driver: [place] [address] Ultrasound Report Signed with Addenda Patient: JANNIE SANON MR#: [id number] : 1985 Acct:[id number] Age/Sex: 39 / F ADM Date: 12/21/24 Loc: US Attending Dr: Norbert Vega D.O. Ordering Physician: Norbert Vega D.O. Date of Service: 12/21/24 Procedure(s): US OB BPP w non-stress Accession Number(s): [id number] cc: Norbert Vega D.O. ; Quoc Bell M.D. ADDENDUM The [address] [id number] This is an addendum FINDINGS: An intrauterine [...] Metzger M.D. 12/26/2024 10:00 AM Dictation Location: [place] [address] Patient Electronically authenticated by: [id number] Y Date: 12/26/2024 10:00 Name: JANINE SANON MRN: [id number] date: 1985 Sex: F Assigned Patient Location: [facility] Current Patient Location: Accession/Order Number: [id number] Exam Date: 12/26/2024 09:57 Report Date: 12/26/2024 10:00 At the request of: NORBERT VEGA DO Procedure: US OB fet al BPP w non-stress [place] [id number] Patient Name: JANNIE SANON MRN: [id number] date: 1985 Sex: F Assigned Patient Location: [facility] Current Patient Location: Accession/Order Number: [id number] Exam Date: 12/21/2024 11:37 Report Date: 12/21/2024 [...] Metzger M.D. 12/21/2024 11:39 AM Dictation Location: [facility] Electronically authenticated by: [id number] Y Date: 12/21/2024 11:39 Addendum Dictated By : Jonah Metzger M.D. Addendum Signed By: 12/26/24 1 003 Addendum Cosigned By: DD/ TD/TT: / [place] [id number] Patient Name: JANNIE SANON MRN: [id number] date: 1985 Sex: F Assigned Patient Location: [facility] Current Patient Location: Accession/Order Number: [id number] Exam Date: 12/21/2024 11:37 Report Date: 12/21/2024 [...] Metzger M.D. 12/21/2024 11:39 AM Dictation Location: [facility] Electronically authenticated by: [id number] Y Date: 12/21/2024 11:39 Dictated By: Jonah Metzger M.D. Signed By: 12/21/24 1141 DD/ 1139 TD/TT: Clamp Truck Driver: URINE MICROSCOPIC ONLY Reviewed date:12/09/2024 05:07:16 PM Interpretation: Performing Lab: Notes/Report: [facility] , WBC Urine NONE SEEN NONE SEEN #/HPF RBC Urine 75-100 0-2 #/HPF Bacteria Urine SMALL NONE SEEN #/HPF Mucus Urine MODERATE NONE SEEN Squamous Epithelial Cell Urine FEW NONE/RARE #/LPF Crystals Seen? None Seen None Seen #/HPF Cast Seen? NONE SEEN NONE SEEN #/LPF Urine Culture Indicated YES- Performing Lab: see note ML - [facility] LB UA (CLEAN or CATCH) MICROSCO PIC IF INDICATE Reviewed date:12/09/2024 05:07:16 PM Interpretation: Performing Lab: Notes/Report: [facility] , Color Urine YELLOW YELLOW Clarity Urine SL CLOUDY CLEAR Specific [place] Urine >=1.030 1.005-1.025 pH Urine 6.0 5.0-9.0 Protein Urine 100 NEG/TRACE mg/dL Glucose Urine UA NEGATIVE NEGATIVE mg/dL Bilirubin Urine NEGATIVE NEGATIVE Ketones Urine 15 NEGATIVE mg/dL Blood Urine LARGE NEGATIVE Nitrite Urine NEGATIVE NEGATIVE Urobilinogen Urine 1.0 0.2-1.0 EU/dL Leukocyte Esterase Urine NEGATIVE NEGATIVE Urine Microscopic Indicated YES Performing Lab: see note ML - [facility] LB Reason For Referral No Information Medications Medication [...] Risk Notes Problem Adjustment disorder with anxiety (27797540) Adjustment disorder with anxiety (F43.22) Active confirmed Problem Anemia (726165302) Anemia (D64.9) Active confirmed Problem Gout (53181464) Gout (M10.9) Active confirmed Problem Insomnia (118077873) Insomnia (G47.00) Active confirmed Problem Pain in limb (11931509) Foot pain, left (M79.672) Active confirmed Problem Well adult (396196250) Well adult (Z00.00) Active confirmed Problem Cellulitis (225445504) Cellulitis (L03.90) Active confirmed Problem Contact dermatitis (82890454) Contact dermatitis (L25.9) Active confirmed Problem Overweight (766961130) Over weight (E66.3) Active confirmed Problem Posttraumatic stress disorder (49152439) Post traumatic stress disorder (F43.10) Active confirmed Problem Breakthrough bleeding (88299677) Breakthrough bleeding (N92.1) Active confirmed Problem Pruritic disorders (660539472) Chronic pruritus (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) Active confirmed Problem Acute inflammation of sinus (66174461) Acute inflammation of sinus (J01.90) Active confirmed Problem 46943684 Pure hypercholesterol emia, unspecified (E78.00) Active confirmed Problem Cyst of left ovary (6423326100502466 8) Other ovarian cyst, left side (N83.292) Active confirmed Problem Backache (050258694) Inflammatory back pain (M54.89) Active confirmed Vital Signs Temperature 99.3 degrees Fahrenheit 09/11/2024 Blood pressure diastolic 72 mm Hg 09/11/2024 Height 59 in 09/11/2024 Blood pressure systolic 112 mm Hg 09/11/2024 Weight 157 lbs 09/11/2024 BMI 31.71 kg/m2 09/11/2024 Encounters Encounter Location Date Provider Diagnosis [facility] [address] [place] [address] 04/17/2024 Emeka Hoy Foot pain, left M79.672 [facility] [address] [place] [address] 09/11/2024 Emeka Hoy Acute non-recurrent sinusitis, unspecified location J01.90 and Nasal congestion R09.81 [facility] [address] [facility] [place] [address] 01/27/2024 QUOC HOY [facility] [address] [place] [address] 02/09/2024 UQOC HOY [facility] [address] [place] [address] 03/10/2024 Emeka emma [facility] [address] [facility] [place] [address] 04/19/2024 Emeka emma [facility] [address] [facility] [place] [address] 05/24/2024 Emeka Bell [facility] [address] [facility] [place] [address] 06/27/2024 Emeka Bell [facility] [address] [facility] [place] [address] 08/18/2024 Emeka Bell Assessments Encounter Date Diagnosis (ICD Code) Assessment Notes Treatment Notes Treatment Clinical Notes Section Notes 04/17/2024 Foot pain, left (ICD-10 - M79.672) 09/11/2024 Acute non-recurrent sinusitis, unspecified location (ICD-10 - J01.90) Rest and drink more liquids, especially water. You may use a humidifier or vaporizer to help keep the drainage moist. Qzcw-kqu-iluvucc Nasal Saline may help the stuffy and runny nose. Use Ibuprofen and or Tylenol as needed for fever, chills, body aches or pain. Children 5 years old should not be given qhpk-rvc-nfriros cough and cold medications such as guaifenesin and dextromethorphan. If you're over age 5, you may try imni-wat-ydwimgg cold medications such as guaifenesin and dextromethorphan, [...] Name Order Date CMP (COMPLETE METABOLIC PANEL) HEMOGLOBIN A1C (GLYCO) 12/27/2023 IRON, TOTAL 12/27/2023 [...] End Date [employer] [employer] [address] [address] [place] [address] [id number] Jannie Sanon Self - patient is the insured Medical (General) History Surgical History Surgery Date(Month/Year) oral surgery tonsilectomy d and c 2003 4 c sections
--- OUTSIDE RECORDS SUMMARY | 2025-01-08 11:34 | XMS_ITS | Encounter Summary ---
Author Organization [facility] Address [address] [place] [address] Care Team Providers Care Mutual Fund Analyst Name Role Phone Darshan Watts MD Primary Care Provider [phone] Encounter Details Date Type Department Care Team [...] BCP OB [address] [place] [address] Kannan Vega, DO [address] [place] [address] documented as of this encounter Visit Diagnoses Not on filedocumented in this encounter Care Teams Mutual Fund Analyst Relationship Specialty Start Date End Date Darshan Watts MD [address] [facility] [place] [address] PCP - General Family Medicine 12/28/22 documented as of this encounter
--- OUTSIDE RECORDS SUMMARY | 2025-01-08 11:35 | XMS_ITS | Encounter Summary ---
Author Organization [facility] Address [address] [place] [address] Care Team Providers Care Cable Engineer Name Role Phone Darshan Watts MD Primary Care Provider [phone] Encounter Details Date Type Department Care Team (Late st Contact Info) Description 05/26/2023 Abstract [facility] [address] [facility] [address] [place] [address] Milagros Rose, [facility] [address] [facility] [address] [place] [address] Social History Tobacco Use Types Packs/Day Years [...] EDT Routine [facility] [address] [place] [address] Kannan Vega DO [address] [place] [address] documented as of this encounter Visit Diagnoses Not on filedocumented in this encounter Care Teams Cable Engineer Relationship Specialty Start Date End Date Darshan Watts MD [address] [place] [address] PCP - General Family Medicine 12/28/22 documented as of this encounter
--- OUTSIDE RECORDS SUMMARY | 2025-01-08 11:35 | XMS_ITS | Clinical Summary ---
Author Organization [employer] Address [id number] [address] [place] [address] Care Team Providers Care Electrical Logging Engineer Name Role Phone Darshan Watts MD Primary Care Provider [phone] Allergies Active Allergy Reactions Criticality Noted Date [...] by mouth in the morning. Active omega 2-zvf-mik-fish oil (Fish OiL) 300-1,000 mg capsule Take [...] PM EDT Hospital Encounter [facility] - Ultrasound [address] [place] [address] Multigravida of advanced maternal age in second trimester; History of delivery affecting Discharge Disposition: Home 11/07/2024 Travel 10/09/2024 11:00 AM EST Office Visit [facility]aternal- Medicine at [facility] [address] [place] [address] Gen Kang MD Multigravida of advanced maternal age in second trimester (Primary Dx) 10/09/2024 9:38 AM EST - 10/09/2024 11:59 PM EST Hospital Encounter [facility] - [facility] Imaging [address] [place] [address] Screening, , for anatomic survey; Multigravida of advanced maternal age in second trimester Discharge Disposition: Home 10/09/2024 Orders Only Maternal- Medicine at [facility] [address] [place] [address] Sydni Kennedy RN Multigravida of advanced maternal [...] Name Priority Date/Time Associated Diagnosis Comments US [facility] OB FOLLOW-UP, 1 FETUS Routine 11/07/2024 11:40 AM EDT Multigravida of advanced maternal age in second trimester History of delivery affecting US [facility] COMPREHENSIVE ANATOMIC SURVEY Routine 10/09/2024 11:12 AM EST Screening, , for anatomic survey Multigravida of advanced maternal age in second trimester from Last 3 Months Results * US [facility] OB FOLLOW-UP, 1 FETUS (11/07/2024 11:40 AM EDT) Only the most recent of2 resultswithin the time period is included. Anatomical Region Laterality Modality OB-QUALITY ANALYST Ultrasound 11/07/2024 10:0 2 AM EDT Narrative 11/07/2024 4:36 PM EDT NAME: PACO ASHER : 1985 SEX: F Accession Number: [id number] ORDERING PHYSICIAN: GEN KANG REFERRING PHYSICIAN: NORBERT WILLIS Coding ----- --------- Procedures [id number]: Follow-up Ultrasound, per fetus Indication ----- --------- Screening for follow-up survey, AMA- Supervision of elderly, Depression, Anxiety, Previous x4, Obesity in History ----- --------- OB History 9. Para 4 [id number] Current ----- --------- Cell free DNA Low [...] 1 lb 10 oz EFW by Hadlock ([id number]-[id number]-FL) Head / Face / Neck Biometry: Cephalic index 0.72 3% Nicolaides Inspector And Adjuster [employer] Head 1.5 mm CM 5.3 mm 23% Nicolaides Extremities / Bony Struc Biometry: FL / BPD 0.76 FL / HC 0.20 FL / AC 0.22 Tibia 39.0 mm 24w 6d 27% Juan Manuel Anatomy ----- --------- The following structures appear normal: Head/Neck: Cranium. Lateral ventricles. Cavum septi pellucidi. Cerebellum. Cisterna magna. Parenchyma. Face: Mandible. Orbits. Heart/Thorax: 4-chamber view. RVOT view. 7-bbuslb-ahswqag view. Aortic arch view. Bicaval view. Ductal [...] 4.4 cm. Recommendations ----- --------- Please see [facility] recommendations from prior clinical and/or ultrasound report documentation. Subsequent follow up or other follow up as clinically determined by primary OB provider unless otherwise specified by [facility]. Results forwarded to ordering provider so they can follow up with the patient as necessary. Procedure Note Damián Short MD - 11/07/2024 NAME: PACO ASHER : 1985 SEX: F Accession Number: [id number] ORDERING PHYSICIAN: GEN KANG REFERRING PHYSICIAN: NORBERT WILLIS Coding ----- --------- Procedures [id number]: Follow-up Ultrasound, per fetus Indication ----- --------- Screening for follow-up survey, AMA- Supervision of elderly, Depression,Anxiety, Previous x4, Obesity in History ----- --------- OB History 9. Para 4 [id number] Current ----- --------- Cell free DNA Low [...] 1 lb 10 oz EFW by Hadlock (ZEN-WO-DH-FL) Head / Face / Neck Biometry: Cephalic index 0.72 3% Nicolaides Inspector And Adjuster [employer] Head 1.5 mm CM 5.3 mm 23% Nicolaides Extremities / Bony Struc Biometry: FL / BPD 0.76 FL / HC 0.20 FL / AC 0.22 Tibia 39.0 mm 24w 6d 27% Juan Manuel Anatomy ----- --------- The following structures appear normal: Head/Neck: Cranium. Lateral ventricles. Cavum septi pellucidi. Cerebellum.Cisterna magna. Parenchyma. Face: Mandible. Orbits. Heart/Thorax: 4-chamber view. RVOT view. 8-oglmng-oauxwvu view. Aorticarch view. Bicaval view. Ductal arch [...] thepatient as necessary. us Gen Kang MD [facility] ORDERABLES Final Resul t from Last 3 Months Insurance [place] [employer] Care Teams Electrical Logging Engineer Relationship Specialty Start Date End Date Darshan Watts MD PCP - General 04/04/18
--- OUTSIDE RECORDS SUMMARY | 2025-01-08 11:35 | XMS_ITS | Encounter Summary ---
Author Organization [facility] Address [address] [place] [address] Care Team Providers Care Beauty Operator Apprentice Name Role Phone Darshan Watts MD Primary Care Provider [phone] Encounter Details Date Type Department Care Team (Late st Contact Info) Description 07/28/2024 Abstract [facility] [address] [place] [address] Kannan Vega, DO [address] [place] [address] Parris Tinoco, [facility] Social History Tobacco Use Types Packs/Day [...] Description 01/15/2025 10:00 AM EDT Routine [facility] OB [address] [place] [address] Kannan Vega, DO [facility] [address] [place], [facility] documented as of this encounter Visit Diagnoses Not on filedocumented in this encounter Care Teams Beauty Operator Apprentice Relationship Specialty Start Date End Date Darshan Watts MD [address] [place] [address] PCP - General Family Medicine 12/28/22 documented as of this encounter
--- OUTSIDE RECORDS SUMMARY | 2025-01-08 11:35 | XMS_ITS | Encounter Summary ---
Author Organization [facility] Address [address] [place] [address] Care Team Providers Care Scrub Wheel Operator Name Role Phone Darshan Watts MD Primary Care Provider [phone] Encounter Details Date Type Department Care Team (Late st Contact Info) Description 08/23/2024 Abstract [facility] OB [address] [place] [address] Kannan Vega, DO [address] [place] [address] Parris Tinoco, [facility] Social History Tobacco Use Types Packs/Day Years [...] Description 01/15/2025 10:00 AM EDT Routine [facility] OB [address] [place] [address] Kannan Vega, DO [facility] [address] [place], [facility]11 documented as of this encounter Visit Diagnoses Not on filedocumented in this encounter Care Teams Scrub Wheel Operator Relationship Specialty Start Date End Date Darshan Watts MD [address] [place] [address] PCP - General Family Medicine 12/28/22 documented as of this encounter
--- OUTSIDE RECORDS SUMMARY | 2025-01-08 11:35 | XMS_ITS | Clinical Summary ---
Author Organization [facility] Address [address] [place] [address] Care Team Providers Care License Issuer Name Role Phone Darshan Watts MD Primary Care Provider [phone] Allergies Active Allergy Reactions Criticality Noted Date [...] Encounters Date Type Department Care Team Description 01/08/2025 10:10 AM EDT Routine [facility] [address] [place] [address] Norbert Vega, Third trimester ; 34 weeks gestation of 01/08/2025 Bamboo flowsheet [facility] [address] [place] [address] Norbert Vega, DO 01/04/2025 Clinisync Result Encounter NOMS External Department Unsolicited Norbert Vega, DO 01/01/2025 Travel 12/28/2024 Clinisync Result Encounter NOMS External Department Unsolicited Norbert Vega, DO 12/26/2024 9:00 AM EDT Routine [facility] [address] [place] [address] Norbert Vega, 32 weeks gestation of ; Third trimester 12/26/2024 Bamboo flowsheet [facility] [address] [place] [address] Norbert Vega, DO 12/21/2024 Travel 12/21/2024 Clinisync Result Encounter NOMS External Department Unsolicited Norbert Vega, DO 12/21/2024 Clinisync Result Encounter NOMS External Department Unsolicited Norbert Vega, DO 12/11/2024 8:30 AM EDT Routine [facility] [address] [place] [address] Norbert Vega, Third trimester ; 30 weeks gestation of 12/11/2024 8:00 AM EDT Ancillary Procedure [facility] [address] [place] [address] Multigravida of advanced maternal age in third trimester 12/11/2024 Abstract [facility] [address] [facility] [place] [place] [address] Norbert Vega, DO 12/09/2024 Clinisync Result Encounter NOMS External Department Unsolicited Norbert Vega, DO 11/30/2024 Clinisync Result Encounter NOMS External Department Unsolicited Norbert Vega, DO 11/27/2024 1:10 PM EDT Routine [facility] [address] [facility] [place] [place] [address] Norbert Vega, Third trimester ; 28 weeks gestation of ; Multigravida of advanced maternal age in third trimester; Anemia during in second trimester 11/27/2024 Bamboo flowsheet [facility] [address] [facility] [place] [address] Norbert Vega, DO 11/08/2024 Abstract [facility] [address] [facility] [place] [address] Norbert Vega, DO 11/01/2024 Telephone [facility] [address] [facility] [place] [place] [address] Norbert Vega, DO 10/30/2024 2:50 PM EDT Routine [facility] [address] [facility] [place] [place] [address] Norbert Vega, Anemia during in second trimester; Second trimester ; 24 weeks gestation of 10/30/2024 Bamboo flowsheet [facility] [address] [facility] [place] [place] [address] Norbert Vega, DO 2024 Travel 10/23/2024 Clinisync Result Encounter NOMS External Department Unsolicited Norbert Vega, DO 10/19/2024 Telephone [facility] [address] [facility] [place] [address] Dayami Dumont MA 10/10/2024 Abstract [facility] [address] [place] [address] Norbert Vega, 10/10/2024 Telephone [facility] OB [address] [place] [address] Norbert Vega DO 10/10/2024 Abstract [facility] OB [address] [place] [address] Norbert Vega DO from Last 3 Months Family History * [...] oz) 01/08/2025 10:41 A M EDT Height 152.4 cm (5') 03/01/2023 1:24 PM EDT Body Mass Index 31.01 03/01/2023 1:24 PM EDT Plan of Treatment Upcoming Encounters Date Type Department Care Team (Late st Contact Info) Description 01/15/2025 10:00 AM EDT Routine [facility] OB [facility] [place] [address] Silvia, Norbert, [address] [place] [address] Health Maintenance Due Date Last Done Comments Influenza Vaccine (Season Ended) 2025 Cervical Cancer Screening 12/22/2027 HPV/Cotest 12/22/2027 Pap Smear 12/22/2027 12/21/2022 Procedures Procedure Name Priority Date/Time Associated Diagnosis Comments POCT URINALYSIS DIPSTICK Routine 01/08/2025 10:45 AM EDT Third trimester 34 weeks gestation of US OB BPP W NON-STRESS 01/04/2025 11:36 AM EDT US OB BPP W NON-STRESS 12/28/2024 10:16 [...] 12/09/2024 2:00 PM EDT TBH UA (CLEAN/CATCH) TERRAZZO TILE SETTER/MICRO IF IND. Routine 11/30/2024 4:48 PM EDT [...] Recently Relevant to Health Maintenance Results * POCT urinalysis dipstick manually resulted (01/08/2025 10:45 AM EDT) Only the most recent of5 resultswithin the time period is included. Color, [...] Positive Urine 01/08/2025 10:4 5 AM EDT us Norbert Vega DO POINT OF CARE TEST ENTER/EDIT OR DERABLES Final Result * US OB BPP W NON-STRESS (01/04/2025 11:36 AM EDT) Only the most recent of3 resultswithin the time period is included. Anatomical Region Laterality Modality Other 01/04/2025 11:3 6 AM EDT Narrative 01/04/2025 11:39 [place] [address] Ultrasound Report Signed Patient: JANNIE ANTONIO MR#: [id number] : 1985 Acct:[id number] Age/Sex: 39 / F ADM Date: 01/04/25 Loc: [facility] 250-[address]: Norbert Vega D.O. Ordering Physician: Norbert Vega D.O. Date of Service: 01/04/25 Procedure(s): US OB BPP w non-stress Accession Number(s): [id number] cc: Norbert Vega D.O.; Darshan Watts M.D. The [place] [address] Patient Name: JANNIE ANTONIO MRN: [id number] date: 1985 Sex: F Assigned Patient Location: US Current Patient Location: US Accession/Order Number: [id number] Exam Date: 01/04/2025 11:35 Report Date: 01/04/2025 11:36 At the request of: NORBERT VEGA DO Procedure: US OB BPP w non-stress BIOPHYSICAL PROFILE: CLINICAL INFORMATION: Multigravida of advanced maternal age COMPARISON: 12/28/2024 There is a single live intrauterine gestation in cephalic presentation. The reported gestational age is 33 weeks 5 days. The heart rate [id number] beats per minute. FINDINGS: TONE: 1 or [...] Bolanos M.D. 01/04/2025 11:36 AM Dictation Location: [place] [address] Electronically authenticated by: [id number] Y Date: 01/04/2025 11:36 Dictated By: Lise Bolanos M.D. Signed By: 01/04/25 1139 DD/ 1136 TD/TT: Manufacturing Tech: Procedure Note Radiology, Radiologist, - 01/04/2025 [place] [address] Ultrasound Report Signed Patient: JANNIE ANTONIO RMR#: [id number] : 1985Acct:[id number] Age/Sex: 39 / FADM Date: 01/04/25 Loc: [facility] 250-[address]: Norbert Vega D.O. Ordering Physician: Norbert Vega D.O. Date of Service: 01/04/25 Procedure(s): US OB BPP w non-stress Accession Number(s): [id number] cc: Norbert Vega D.O.; Darshan Watts M.D. The [place] [address] Patient Name: JANNIE ANTONIO MRN: [id number] date: 1985 Sex: F Assigned Patient Location: Current Patient Location: US Accession/Order Number: [id number] Exam Date: 01/04/2025 11:35 Report Date: 01/04/2025 11:36 At the request of: NORBERT VEGA DO Procedure: US OB BPP w non-stress BIOPHYSICAL PROFILE: CLINICAL INFORMATION: Multigravida of advanced maternal age COMPARISON: 12/28/2024 There is a single live intrauterine gestation in cephalic presentation.The reported gestational age is 33 weeks 5 days. The heart [id number] beats per minute. FINDINGS: TONE: 1 or [...] Bolanos M.D. 01/04/2025 11:36 AM Dictation Location: [place] [address] Electronically authenticated by: [id number] Y Date: 1:36 Dictated By: Lise Bolanos M.D. Signed By:01/04/25 1139 DD/ 1136 TD/TT: Manufacturing Tech: us Norbert Vega DO [facility] IMAG[facility] Final Result * US OB GROWTH (12/21/2024 11:41 AM EDT) Anatomical Region Laterality Modality Other 12/21/2024 11:4 1 AM EDT Narrative 12/21/2024 11:43 [place] [address] Ultrasound Report Signed Patient: JANNIE ANTONIO MR#: [id number] : 1985 Acct:[id number] Age/Sex: 39 / F ADM Date: 12/21/24 Loc: US Attending Dr: Norbert Vega D.O. Ordering Physician: Norbert Vega D.O. Date of Service: 12/21/24 Procedure(s): US OB growth Accession Number(s): [id number] cc: Norbert Vega D.O.; Darshan Watts M.D. The [address] [address] Patient Name: JANNIE ANTONIO MRN: [id number] date: 1985 Sex: F Assigned Patient Location: [facility] Current Patient Location: Accession/Order Number: [id number] Exam Date: 12/21/2024 11:39 Report Date: 12/21/2024 [...] Metzger M.D. 12/21/2024 11:41 AM Dictation Location: [place] [address] Electronically authenticated by: [id number] Y Date: 12/21/2024 11:41 Dictated By: Jonah Metzger M.D. Signed By: 12/21/24 1143 DD/ 1141 TD/TT: Manufacturing Tech: Procedure Note Radiology, Radiologist, MD - 12/21/2024 [place] [address] Ultrasound Report Signed Patient: JANNIE ANTONIO RMR#: [id number] : 1985Acct:[id number] Age/Sex: 39 / FADM Date: 12/21/24 Loc: US Attending Dr: Norbert Vega D.O. Ordering Physician: Norbert Vega D.O. Date of Service: 12/21/24 Procedure(s): US OB growth Accession Number(s): [id number] cc: Norbert Vega D.O.; Darshan Watts M.D. The [place] [id number] Patient Name: JANNIE ANTONIO MRN: [id number] date: 1985 Sex: F Assigned Patient Location: [facility] Current Patient Location: Accession/Order Number: [id number] Exam Date: 12/21/2024 11:39 Report Date: 12/21/2024 [...] Metzger M.D. 12/21/2024 11:41 AM Dictation Location: [place] [address] Electronically authenticated by: [id number] Y Date: 1:41 Dictated By: Jonah Metzger M.D. Signed By:12/21/24 1143 DD/ 1141 TD/TT: Manufacturing Tech: us Norbert Vega DO [facility] IMAG[facility] Final Result * US [...] II, MD, PHD at 13-Dec-2024 08:39:30 AM [facility] Procedure Note Tl Fong MD - [...] signed by TL FONG II, MD, PHD [id number] 08:39:30 AM [facility] us Norbert Silvia DO IMG OB [...] Narrative CLINISYNC - 12/09/2024 3:18 PM EDT us Norbert Silvia DO CLINIS[facility] Final Result [facility] * (ABNORMAL) [facility] UA (CLEAN/CATCH) [...] Narrative CLINISYNC - 12/09/2024 3:18 PM EDT us Norbert Silvia DO CLINIS[facility]NC Final Result Performing Organization Address [facility]/ZIP Co de Phone Number [facility] * [facility] UA (CLEAN/CATCH) TERRAZZO TILE SETTER/MICRO IF IND. (11/30/2024 4:48 PM EDT) COLOR [...] Narrative CLINISYNC - 11/30/2024 5:56 PM EDT Norbert Silvia DO CLINIS[facility]NC Final Result Performing Organization Address [facility] Co de Phone Number [facility] * GLUCOSE 1 HOUR (10/23/2024 2:18 PM EDT) GLUCOSE 1 HOUR 106 <130 mg/dL TB 10/23/2024 2:18 PM EDT 10/23/2024 2:20 PM EDT Narrative CLINISYNC - 10/23/2024 2:34 PM EDT Norbert Silvia DO LAB BLOOD ORDERABLES Final Resul t Performing Organization Address [facility]/ZIP Co de Phone Number [facility] * (ABNORMAL) ALL CBC WITH AUTO DIFF (10/23/2024 2:18 PM EDT) [facility] WBC 9.3 4.0 - 11.0 10 3/uL TBH TBH RBC 3.79(L) 4.20 - 5.40 10 6/uL [facility] HGB 10.2(L) 12.0 - 16.0 g/dL TBH TBH HCT 31.8(L) 36.0 - 48.0 % TBH [...] - 10/23/2024 2:26 PM EDT us Norbert Silvia DO CLINIS[facility]NC Final Result [facility] TB * US OB 14+ weeks anatomy scan (10/09/2024 11:26 AM EST) Anatomical Region Laterality Modality Body Ultrasound 10/09/2024 11:2 6 AM EST Narrative 10/09/2024 11:26 AM EST THIS EXAM WAS PERFORMED AT [facility] NAME: PACO ASHER : 1985 SEX: F Accession Number: [id number] ORDERING PHYSICIAN: GEN KANG REFERRING PHYSICIAN: NORBERT VEGA Coding ----- --------- Procedures 37142: Ultrasound, uterus, real time with image documentation, and maternal evaluation plus detailed anatomic examination, transabdominal approach;single or first gestation Indication ----- --------- Screening for Anatomic Survey, AMA- Supervision of elderly, Depression, Anxiety, Previous x4, Obesity in History ----- --------- OB History 9. Para 4 [id number] Current ----- --------- Cell free DNA Low [...] 0 lb 14 oz EFW by Hadlock (NOB-PQ-ET-FL) Head / Face / Neck Biometry: Cephalic index 0.71 1% Nicolaides Salesperson Pianos [employer] Organs 4.9 mm CM 3.9 mm 11% Nicolaides [...] not be adequately visualized: Heart / Thorax 2-lutqri-ldctqtj view. Bicaval view. Right lung. Left lung. [...] today's exam. Recommendations ----- --------- Please see [facility] documentation from today. The patient is scheduled in four week(s) to complete anatomic survey. Subsequent follow up or other follow up as clinically determined by primary OB provider unless otherwise specified by M. Results forwarded to ordering provider so they can follow up with the patient as necessary. The copy-to physician of this order is NORBERT Spencer The ordering physician of this order is GEN Grady Procedure Note Radiology, Radiologist, - 10/09/2024 THIS EXAM WAS PERFORMED AT [facility] NAME: PACO ASHER : 1985 SEX: F Accession Number: [id number] ORDERING PHYSICIAN: GEN KANG REFERRING PHYSICIAN: NORBERT VEGA Coding ----- --------- Procedures 65635: Ultrasound, uterus, real time with imagedocumentation, and maternal evaluation plus detailed anatomic examination, transabdominalapproach;single or first gestation Indication ----- --------- Screening for Anatomic Survey, AMA- Supervision of elderly, Depression,Anxiety, Previous x4, Obesity in History ----- --------- OB History 9. Para 4 [id number] Current ----- --------- Cell free DNA Low [...] 0 lb 14 oz EFW by Hadlock (POP-NG-FX-FL) Head / Face / Neck Biometry: Cephalic index 0.71 1% Nicolaides Salesperson [employer] 4.9 mm CM 3.9 mm 11% Nicolaides [...] not be adequately visualized: Heart / Thorax 0-nakcsf-eshtqse view. Bicaval view. Right lung. Left lung. [...] today's exam. Recommendations ----- --------- Please see [facility] documentation from today. The patient is scheduled in four week(s) to complete anatomic survey. Subsequent follow up or other follow up as clinically determined byprimary OB provider unless otherwise specified by [facility]. Results forwarded to ordering provider so they can follow up with thepatient as necessary. The copy-to physician of this order is NORBERT Spencer The ordering physician of this order is GEN Grady us Norbert Silvia DO IMG OB US PROCEDURES Final Resul t * Pap Smear (12/21/2022 12:00 AM EDT) Swab Cervical swab / Unknown us Norbert Silvia DO LAB CYTOLOGY ORDERABLES Final Re sult EXTERNAL LAB from Last 3 Months or Most Recently Relevant to Health Maintenance Insurance [facility] MEDICAID [place] Care Teams License Issuer Relationship Specialty Start Date End Date Darshan Watts MD [address] [place] [address] PCP - General Family Medicine 12/28/22
--- OUTSIDE RECORDS SUMMARY | 2025-01-08 11:35 | XMS_ITS | Encounter Summary ---
Author Organization [facility] Address [address] [place] [address] Care Team Providers Care Web Press Operator Name Role Phone Darshan Watts MD Primary Care Provider [phone] Encounter Details Date Type Department Care Team (Late st Contact Info) Description 11/11/2023 Abstract [facility] [address] [facility] [place] [address] Gemma Dumont LPN [address] [employer] [facility] Charly [facility]11 Social History Tobacco Use Types Packs/Day [...] Description 01/15/2025 10:00 AM EDT Routine [facility] OB [address] [facility] [place] [address] Kannan Vega [address] [place] [address] documented as of this encounter Visit Diagnoses Not on filedocumented in this encounter Care Teams Web Press Operator Relationship Specialty Start Date End Date Darshan Watts MD [address] [place] [address] PCP - General Family Medicine 12/28/22 documented as of this encounter
--- OUTSIDE RECORDS SUMMARY | 2025-01-08 11:35 | XMS_ITS | Encounter Summary ---
Author Organization [facility] Address [address] [place] [address] Care Team Providers Care Grain Elevator Worker Name Role Phone Darshan Watts MD Primary Care Provider [phone] Encounter Details Date Type Department Care Team (Late Contact Info) Description 03/03/2024 Abstract [facility] OB [address] [place] [phone] Kannan Vega [facility] [place] [place] [address] Social History Tobacco Use Types Packs/Day Years [...] EDT Routine [facility] OB [address] [place] [address] Kannan Vega DO [facility] [place], [place] [address] documented as of this encounter Visit Diagnoses Not on filedocumented in this encounter Care Teams Grain Elevator Worker Relationship Specialty Start Date End Date Darshan Watts MD [address] [place] [address] PCP - General Family Medicine 12/28/22 documented as of this encounter
--- OUTSIDE RECORDS SUMMARY | 2025-01-08 11:35 | XMS_ITS | Encounter Summary ---
Author Organization [facility] Address [address] [place] [address] Care Team Providers Care Master [employer] Name Role Phone Darshan Watts MD Primary Care Provider [phone] Encounter Details Date Type Department Care Team (Late st Contact Info) Description 11/01/2023 Clinisync Result Encounter NOMS External Department Unsolicited Norbert Vega, [facility] [place] [address] Social History Tobacco Use Types Packs/Day Years [...] Routine [facility] OB [address] [place] [address] Norbert Vega DO [facility] [place] [address] documented as of this encounter Procedures Procedure Name Priority Date/Time Associated Diagnosis Comments US PELVIS TRANSVAGINAL 11/01/2023 12:52 PM EDT documented in this encounter Results * US PELVIS TRANSVAGINAL (11/01/2023 12:52 PM EDT) Anatomical Region Laterality Modality Other 11/01/2023 12:5 2 PM EDT Narrative 11/01/2023 12:55 [place] [address] Ultrasound Report Signed Patient: LB SANON MR#: [id number] : 1985 Acct:[id number] Age/Sex: 38 / F ADM Date: 11/01/23 Loc: US Attending Dr: Norbert Vega D.O. Ordering Physician: Norbert Vega D.O. Date of Service: 11/01/23 Procedure(s): US pelvis transvaginal Accession Number(s): [id number] cc: Norbert Vega D.O.; Darshan Watts M.D. [place] [id number] Patient Name: LB SANON MRN: [id number] date: 1985 Sex: F Assigned Patient Location: US Current Patient Location: US Accession/Order Number: [id number] Exam Date: 11/01/2023 11:48 Report Date: 11/01/2023 [...] complex left ovarian cyst Electronically authenticated by: PREEZ DURBIN Date: 11/01/2023 12:52 Dictated By: Perez Durbin M.D. Signed By: 11/01/23 1251 DD/ 1252 TD/TT: Solid Waste Analyst: Procedure Note Radiology, Radiologist, - 11/01/2023 [place] [address] Ultrasound Report Signed Patient: LB SANON RMR#: [id number] : 1985Acct:[id number] Age/Sex: 38 / FADM Date: 11/01/23 Loc: US Attending Dr: Norbert Vega D.O. Ordering Physician: Norbert Vega D.O. Date of Service: 11/01/23 Procedure(s): US pelvis transvaginal Accession Number(s): [id number] cc: Norbert Vega D.O.; Darshan Watts M.D. The [place] [address] Patient Name: LB SANON MRN: [id number] date: 1985 Sex: F Assigned Patient Location: US Current Patient Location: US Accession/Order Number: [id number] Exam Date: 11/01/2023 11:48 Report Date: 11/01/2023 [...] M.D. Signed By:11/01/23 1255 DD/ 1252 TD/TT: Solid Waste Analyst: us Norbert Silvia DO [facility] IM[facility] Final Result documented in this encounter Visit Diagnoses Not on filedocumented in this encounter Care Teams Master [employer] Relationship Specialty Start Date End Date Darshan Watts MD [address] [place] [address] PCP - General Family Medicine 12/28/22 documented as of this encounter
--- OUTSIDE RECORDS SUMMARY | 2025-01-08 11:35 | XMS_ITS | Encounter Summary ---
Author Organization [facility] Address [address] [place] [address] Care Team Providers Care Chemical Test Engineer Name Role Phone Darshan Watts MD Primary Care Provider [phone] Encounter Details Date Type Department Care Team (Late st Contact Info) Description 08/07/2024 Abstract [facility] OB [address] [place] [address] Kannan Vega, DO [address] [place] [address] Parris [place], [facility] Social History Tobacco Use Types Packs/Day Years [...] Description 01/15/2025 10:00 AM EDT Routine [facility] OB [address] [place] [address] Kannan Vega, DO [facility] [place], [facility] documented as of this encounter Visit Diagnoses Not on filedocumented in this encounter Care Teams Chemical Test Engineer Relationship Specialty Start Date End Date Darshan Watts MD [address] [place] [address] PCP - General Family Medicine 12/28/22 documented as of this encounter
[2025-01-08 11:36] VITALS: BP 131/82; PULSE 101
--- OUTSIDE RECORDS SUMMARY | 2025-01-08 11:36 | XMS_ITS | Encounter Summary ---
Author Organization [facility] Address [address] [place] [address] Care Team Providers Care Optician Apprentice Dispensing Name Role Phone Darshan Watts MD Primary Care Provider [phone] Encounter Details Date Type Department Care Team (Late st Contact Info) Description 07/27/2024 Clinisync Result Encounter NOMS External Department Unsolicited Norbert Vega, [facility] [address] Social History Tobacco Use Types Packs/Day Years [...] Department Care Team (Late Contact Info) Description 01/15/2025 10:00 AM EDT Routine [facility] OB [address] [place] [phone] Norbert Vega DO [facility] [place] [address] documented as of this encounter Procedures Procedure Name Priority Date/Time Associated Diagnosis Comments US OB L= 14 WEEKS FETUS 07/27/2024 11:07 AM EST documented in this encounter Results * US OB L= 14 WEEKS FETUS (07/27/2024 11:07 AM EST) Anatomical Region Laterality Modality Other 07/27/2024 11:0 7 AM EST Narrative 07/27/2024 11:09 [place] [address] Ultrasound Report Signed Patient: LB SANON MR#: [id number] : 1985 Acct:[id number] Age/Sex: 38 / F ADM Date: 07/27/24 Loc: US Attending Dr: Norbert Vega D.O. Ordering Physician: Norbert Vega D.O. Date of Service: 07/27/24 Procedure(s): US OB <= 14 weeks fetus Accession Number(s): [id number] cc: Norbert Vega D.O. [place] [address] Patient Name: LB SANON MRN: [id number] date: 1985 Sex: F Assigned Patient Location: Current Patient Location: US Accession/Order Number: [id number] Exam Date: 07/27/2024 09:40 Report Date: 07/27/2024 [...] Signed By: 07/27/24 1109 DD/ 06 TD/TT: Commercial Field Inspector: Procedure Note Radiology, Radiologist, MD - 07/27/2024 [place] [address] Ultrasound Report Signed Patient: LB SANON RMR#: [id number] : 1985Acct:[id number] Age/Sex: 38 / FADM Date: 07/27/24 Loc: US Attending Dr: Norbert Vega D.O. Ordering Physician: Norbert Vega D.O. Date of Service: 07/27/24 Procedure(s): US OB <= 14 weeks fetus Accession Number(s): [id number] cc: Norbert Veag D.O. The [place] [address] Patient Name: LB SANON MRN: [id number] date: 1985 Sex: F Assigned Patient Location: US Current Patient Location: US Accession/Order Number: [id number] Exam Date: 07/27/2024 09:40 Report Date: 07/27/2024 [...] Durbin M.D. Signed By:07/27/241108 DD/ 06 TD/TT: Commercial Field Inspector: us Norbert Vega DO [facility] IM[facility] Final Result documented in this encounter Visit Diagnoses Not on filedocumented in this encounter Care Teams Optician Apprentice Dispensing Relationship Specialty Start Date End Date Darshan Watts MD [address] [place] [address] PCP - General Family Medicine 12/28/22 documented as of this encounter
--- OUTSIDE RECORDS SUMMARY | 2025-01-08 11:36 | XMS_ITS | Encounter Summary ---
Author Organization [facility] Address [address] [place] [address] Care Team Providers Care Pipeline Gang Supervisor Name Role Phone Darshan Watts MD Primary Care Provider [phone] Encounter Details Date Type Department Care Team (Late Contact Info) Description 12/25/2022 Abstract [facility] [address] [place] [phone] Kannan Vega [facility] [place] [address] Social History Tobacco Use Types Packs/Day Years [...] EDT Routine [facility] [address] [place] [phone] Kannan Vega DO [facility] [place], [place] [id number] documented as of this encounter Visit Diagnoses Not on filedocumented in this encounter Care Teams Pipeline Gang Supervisor Relationship Specialty Start Date End Date Darshan Watts MD [address] [place] [phone] PCP - General Family Medicine 12/28/22 documented as of this encounter
--- OUTSIDE RECORDS SUMMARY | 2025-01-08 11:36 | XMS_ITS | Encounter Summary ---
Author Organization [facility] Address [address] [place] [address] Care Team Providers Care Cpas Name Role Phone Darshan Watts MD Primary Care Provider [phone] Encounter Details Date Type Department Care Team (Late st Contact Info) Description 10/10/2024 Abstract [facility] [address] [place] [address] Kannan Vega, DO [address] [place] [address] Parris [place], [facility] Social History Tobacco Use Types Packs/Day [...] [facility] [address] [place] [address] Kannan Vega, DO [facility] [place], [facility] documented as of this encounter Visit Diagnoses Not on filedocumented in this encounter Care Teams Cpas Relationship Specialty Start Date End Date Darshan Watts MD [address] [place] [phone] PCP - General Family Medicine 12/28/22 documented as of this encounter
--- OUTSIDE RECORDS SUMMARY | 2025-01-08 11:36 | XMS_ITS | Encounter Summary ---
Author Organization [facility] Address [address] [place] [address] Care Team Providers Care Can Cutter Name Role Phone Darshan Watts MD Primary Care Provider [phone] Encounter Details Date Type Department Care Team (Late st Contact Info) Description 11/08/2024 Abstract [facility] [address] [place] [address] Kannan Vega, DO [address] [place] [address] Parris Tinoco, [facility] Social History Tobacco Use Types Packs/Day Years [...] Description 01/15/2025 10:00 AM EDT Routine [facility] [address] [place] [address] Kannan Vega, DO [facility] [place], [facility] documented as of this encounter Visit Diagnoses Not on filedocumented in this encounter Care Teams Can Cutter Relationship Specialty Start Date End Date Darshan Watts MD [address] [place] [phone] PCP - General Family Medicine 12/28/22 documented as of this encounter
--- OUTSIDE RECORDS SUMMARY | 2025-01-08 11:36 | XMS_ITS | Encounter Summary ---
Author Organization [facility] Address [address] [place] [address] Care Team Providers Care Bank Officer Name Role Phone Darshan Watts MD Primary Care Provider [phone] Encounter Details Date Type Department Care Team (Late st Contact Info) Description 10/10/2024 Abstract [facility] [address] [place] [address] Kannan Vega, DO [address] [place] [address] Parris Tinoco, [facility]11 Social History Tobacco Use Types [...] Description 01/15/2025 10:00 AM EDT Routine [facility] [address] [place] [address] Kannan Vega, DO [facility] [place], [facility]11 documented as of this encounter Visit Diagnoses Not on filedocumented in this encounter Care Teams Bank Officer Relationship Specialty Start Date End Date Darshan Watts MD [address] [place] [address] PCP - General Family Medicine 12/28/22 documented as of this encounter
--- OUTSIDE RECORDS SUMMARY | 2025-01-08 11:36 | XMS_ITS | Encounter Summary ---
Author Organization [facility] Address [address] [place] [address] Care Team Providers Care Transportation Assistant Name Role Phone Darshan Watts MD Primary Care Provider [phone] Encounter Details Date Type Department Care Team (Late st Contact Info) Description 09/20/2023 Clinisync Result Encounter [facility] External Department Unsolicited Norbert Vega, [facility] [address] Social History Tobacco Use Types Packs/Day Years [...] Routine [facility] [address] [place] [phone] Norbert Vega DO [facility] [place] [address] documented as of this encounter Procedures Procedure Name Priority Date/Time Associated Diagnosis Comments US PELVIS W/ TRANSVAGINAL 09/20/2023 1:51 PM EST documented in this encounter Results * US PELVIS W/ TRANSVAGINAL (09/20/2023 1:51 PM EST) Anatomical Region Laterality Modality Other 09/20/2023 1:51 PM EST Narrative 09/20/2023 1:54 [place] [address] Ultrasound Report Signed Patient: LB SANON MR#: [id number] : 1985 Acct:[id number] Age/Sex: 37 / F ADM Date: 09/20/23 Loc: US Attending Dr: Norbert Vega D.O. Ordering Physician: Norbert Vega D.O. Date of Service: 09/20/23 Procedure(s): US pelvis w/ transvaginal Accession Number(s): [id number] cc: Norbert Vega D.O.; Darshan Watts M.D. [place] [id number] Patient Name: LB SANON MRN: [id number] date: 1985 Sex: F Assigned Patient Location: US Current Patient Location: US Accession/Order Number: [id number] Exam Date: 09/20/2023 11:42 Report Date: 09/20/2023 [...] By: Perez Durbin M.D. Signed By: 09/20/23 9103 DD/ 1350 TD/TT: Balloon Sander: Procedure Note Radiology, Radiologist, MD - 09/20/2023 [place] [address] Ultrasound Report Signed Patient: LB SANON RMR#: [id number] : 1985Acct:[id number] Age/Sex: 37 / FADM Date: 09/20/23 Loc: US Attending Dr: Norbert Vega D.O. Ordering Physician: Norbert Vega D.O. Date of Service: 09/20/23 Procedure(s): US pelvis w/ transvaginal Accession Number(s): [id number] cc: Norbert Vega D.O.; Darshan Watts M.D. The [place] [id number] Patient Name: LB SANON MRN: [id number] date: 1985 Sex: F Assigned Patient Location: US Current Patient Location: US Accession/Order Number: [id number] Exam Date: 09/20/2023 11:42 Report Date: 09/20/2023 [...] M.D. Signed By:09/20/23 1354 DD/ 1351 TD/TT: Balloon Sander: us Norbert Silvia DO [facility] Final Result documented in this encounter Visit Diagnoses Not on filedocumented in this encounter Care Teams Transportation Assistant Relationship Specialty Start Date End Date Darshan Watts MD [address] [place] [address] PCP - General Family Medicine 12/28/22 documented as of this encounter
== END 2025-01-08 12:00 | disposition home or self-care (01) ==
LOC: FBCO 11:30 → FBC 11:31
PROVIDERS: PCP Family Medicine; Visit Provider Obstetrics & Gynecology
DX: O26.893 Other specified pregnancy related conditions, third trimester (principal); Z3A.34 34 weeks gestation of pregnancy
CPT/HCPCS: 59025

== ENCOUNTER 2025-01-15 08:04 | Outpatient (OUT) | payer MEDICAID, SELFPAY ==
--- OUTSIDE RECORDS SUMMARY | 2025-01-15 08:21 | XMS_ITS | CCD ---
Author Organization [facility] Care Team Providers Care Client Partner Name Role Phone Gloria Hayden Unavailable RAY [...] HOY ., DR KUMARI Primary Care Unavailable BERLIN, DR PEREZ Luther Consulting Unavailable SILVIA ., DR TOUSSAINT Attending Unavailable SILVIA ., DR TOUSSAINT Consulting Unavailable HOY ., DR KUMARI Primary Care Unavailable BERLIN, DR PEREZ Luther Consulting Unavailable SILVIA ., DR TOUSSAINT Admitting Unavailable SILVIA ., DR TOUSSAINT Attending Unavailable SILVIA ., DR TOUSSAINT Consulting Unavailable SILVIA ., DR TOUSSAINT Admitting Unavailable HOY ., DR KUMARI Primary Care Unavailable BERLIN, DR PEREZ Luther Consulting Unavailable SILVIA ., [...] Unavailable Quoc Watts MD Primary Care Provider [phone] GEN KANG Attending Unavailable SILVIA, NORBERT R Referring Unavailable QUOC WATTS Primary Care Unavailable SILVIA, NORBERT R Referring Unavailable QUOC WATTS Primary Care Unavailable SILVIA, NORBERT R. Referring Unavailable QUOC WATTS Primary Care Unavailable Quoc Watts MD Primary Care Provider [phone] Quoc Watts MD Primary Care Provider [phone] SILVIA, NORBERT Attending Unavailable SILVIA, NORBERT Attending Unavailable SILVIA, NORBERT Attending Unavailable SILVIA, NORBERT Attending Unavailable SILVIA, NORBERT Attending Unavailable SILVIA, NORBERT Attending Unavailable SILVIA, NORBERT Attending Unavailable Allergies Allergy Classification Reported Allergen(s) Allergy Type Date of Onset Reaction(s) Facility (17 sources) Penicillin G Drug Allergy 10-31-19 25 Anaphylaxis [facility] Other (1 source) Cefaclor Drug Allergy [facility] Repository (6 sources) Penicillins; Translations: [PENICILLINS] Drug allergy (disorder) 01-26-20 16 [facility] Repository (20 sources) Penicillins Drug Intolerance 10-21-[address] [facility] Healthcare Work Phone: (1 source) Penicillin Drug Allergy 11-21-19 23 [facility] Repository (1 source) Penicillins Propensity to adverse reactions to drug 10-21-19 19 [facility] (16 sources) Cefaclor Drug Allergy 10-31-[address] [facility] Healthcare (16 sources) Sulfamethoxazole / Trimethoprim Drug Allergy 10-31-19 25 [facility] Medications Current Medications Medication Drug Class(es) [...] morning. Active take 1 tablet by jackie every twenty-four hours Vitamin D3 50 MCG (2000 UT) 1 tablet Ora lly Once a day Active citalopram 20 mg oral tablet (20 sources) Serotonin Reuptake Inhibitor Start: 06-28-2024 End: [...] tablet Orally Once a day Active omega 8-fnp-mmt-fish oil (Fish OiL) 300-1,000 mg capsule (3 sources) take 300-1000 mg by mouth once daily omega 1-kqy-dab-fish oil (Fish OiL) 300-1,000 mg capsule Take [...] mouth Daily Active take 1 capsule by [facility] once in the morning coenzyme Q10 50 mg capsule Take 1 capsul e (50 mg total) by mouth in the morning. Active 24 hr venlafaxine 37.5 mg extended release oral capsule (16 sources) Serotonin and Norepinephrine Reuptake Inhibitor Start: [...] 02-18-2022 Chronic Other and delivery including normal (16 sources) ; Translations: [Encounter for supervision of [...] [32 weeks gestation of ] 12-26-2024 Episodic Residual codes; unclassified (2 sources) Gestation period, 34 weeks; Translations: [34 weeks gestation of ] 01-08-2025 Episodic Unclassified (1 source) CONTACT W/AND (SUSP) [...] Range Facility Urinalysis macro (dipstick) panel (U)on 01-08-2025 Bilirubin, UA Negative Negative - 4(70) +++ mg/dL [facility] Blood, UA Negative Negative - 50 Doroteo/mcL [facility] Clarity, UA Clear [facility] Color, UA Yellow [facility] Glucose, UA Negative Negative - 2000(110) ++++ mg/dL [facility] Interpretation and review of laboratory results Normal [facility] Ketones, UA Negative Negative - 160(16) ++++ mg/dL [facility] Leukocytes, UA Negative Negative - 500+++ Celina/mcL [facility] Nitrite, UA Negative Negative - Positive [facility] pH, UA 5.5 5 - 9 [facility] Protein, UA Negative Negative - 2000(20) ++++ mg/dL [facility] Spec Grav, UA 1.02 1 - 1.03 [facility] Urobilinogen, UA 1.0 0.2 - 12 mg/dL [facility] US OB BPP W NON-STRESS on 01-04-2025 [place] [address] Ultrasound Report Signed Patient: JANNIE ANTONIO MR#: [id number] : 1985 Acct:[id number] Age/Sex: 39 / F ADM Date: 01/04/25 Loc: [place] [address]: Norbert Vega D.O. Ordering Physician: Norbert Vega D.O. Date of Service: 01/04/25 Procedure(s): US OB BPP w non-stress Accession Number(s): [id number] cc: Norbert Vega D.O.; Quoc Watts M.D. [place] [address] Patient Name: JANNIE ANTONIO MRN: [id number] date: 1985 Sex: F Assigned Patient Location: Current Patient Location: US Accession/Order Number: [id number] Exam Date: 01/04/2025 11:35 Report Date: 01/04/2025 11:36 At the request of: NORBERT VEGA DO Procedure: US OB BPP w non-stress BIOPHYSICAL PROFILE: CLINICAL INFORMATION: Multigravida of advanced maternal age COMPARISON: 12/28/2024 There is a single live intrauterine gestation in cephalic presentation. The reported gestational age is 33 weeks 5 days. The heart rate [id number] beats per minute. FINDINGS: TONE: 1 or [...] Bolanos M.D. 01/04/2025 11:36 AM Dictation Location: [place] [address] Electronically authenticated by: [id number] Y Date: 01/04/2025 11:36 Dictated By: Lise Bolanos M.D. Signed By: 01/04/25 1139 DD/ 1136 TD/TT: Lap Machine Tender: [facility] Radiology, Radiologist, - 01/04/2025 [place] [address] Ultrasound Report Signed Patient: JANNIE ANTONIO MR#: [id number] : 1985 Acct:[id number] Age/Sex: 39 / F ADM Date: 01/04/25 Loc: [place] [address]: Norbert Vega D.O. Ordering Physician: Norbert Vega D.O. Date of Service: 01/04/25 Procedure(s): US OB BPP w non-stress Accession Number(s): [id number] cc: Norbert Vega D.O.; Quoc Watts M.D. The [place] [id number] Patient Name: JANNIE ANTONIO MRN: [facility]:[id number] date: 1985 Sex: F Assigned Patient Location: Current Patient Location: US Accession/Order Number: [id number] Exam Date: 01/04/2025 11:35 Report Date: 01/04/2025 11:36 At the request of: NORBERT VEGA DO Procedure: US OB BPP w non-stress BIOPHYSICAL PROFILE: CLINICAL INFORMATION: Multigravida of advanced maternal age COMPARISON: 12/28/2024 There is a single live intrauterine gestation in cephalic presentation. The reported gestational age is 33 weeks 5 days. The heart rate [id number] beats per minute. FINDINGS: TONE: 1 or [...] Bolanos M.D. 01/04/2025 11:36 AM Dictation Location: [place] [address] Electronically authenticated by: [id number] Y Date: 01/04/2025 11:36 Dictated By: Lise Bolanos M.D. Signed By: 01/04/25 1139 DD/ 1136 TD/TT: Lap Machine Tender: [facility] Radiology Study observation (narrative) [facility] OB BPP W NON-STRESS Ordered By: Radiologist Radiology on 01-04-2025 [facility] Work Phone: Urinalysis macro (dipstick) panel (U)on 12-26-2024 Bilirubin, UA Negative Negative - 4(70) +++ mg/dL [facility] Blood, UA Negative Negative - 50 Doroteo/mcL [facility] Clarity, UA Clear [facility] Color, UA Yellow [facility] Glucose, UA Negative Negative - 1999(110) ++++ mg/dL [facility] Interpretation and review of laboratory results Normal [facility] Ketones, UA Negative Negative - 160(16) ++++ mg/dL [facility] Leukocytes, UA Negative Negative - 500+++ Celina/mcL [facility] Nitrite, UA Negative Negative - Positive [facility] pH, UA 7 5 - 9 [facility] Protein, UA Negative Negative - 1999(20) ++++ mg/dL [facility] Spec Grav, UA 1.015 1 - 1.03 [facility] Urobilinogen, UA 0.2 0.2 - 12 mg/dL [facility] US OB BPP W NON-STRESS on 12-21-2024 [place] [address] Ultrasound Report Signed Patient: JANNIE ANTONIO MR#: [id number] : 1985 Acct:[id number] Age/Sex: 39 / F ADM Date: 12/21/24 Loc: US Attending Dr: Norbert Vega D.O. Ordering Physician: Norbert Vega D.O. Date of Service: 12/21/24 Procedure(s): US OB BPP w non-stress Accession Number(s): [id number] cc: Norbert Vega D.O.; Quoc Watts M.D. The [place] [address] Patient Name: JANNIE ANTONIO MRN: [id number] date: 1985 Sex: F Assigned Patient Location: [facility] Current Patient Location: Accession/Order Number: [id number] Exam Date: 12/21/2024 11:37 Report Date: 12/21/2024 [...] Metzger M.D. 12/21/2024 11:39 AM Dictation Location: [place] [address] Electronically authenticated by: [id number] Y Date: 12/21/2024 11:39 Dictated By: Jonah Metzger M.D. Signed By: 12/21/24 1141 DD/ 1139 TD/TT: Lap Machine Tender: [facility] Radiology, Radiologist, - 12/21/2024 [place] [address] Ultrasound Report Signed Patient: JANNIE ANTONIO MR#: [id number] : 1985 Acct:[id number] Age/Sex: 39 / F ADM Date: 12/21/24 Loc: US Attending Dr: Norbert Vega D.O. Ordering Physician: Norbert Vega D.O. Date of Service: 12/21/24 Procedure(s): US OB BPP w non-stress Accession Number(s): [id number] cc: Norbert Vega D.O.; Quoc Watts M.D. The [place] [id number] Patient Name: JANNIE ANTONIO MRN: [facility]:[id number] date: 1985 Sex: F Assigned Patient Location: [facility] Current Patient Location: Accession/Order Number: [id number] Exam Date: 12/21/2024 11:37 Report Date: 12/21/2024 [...] Metzger M.D. 12/21/2024 11:39 AM [facility] by: [id number] Y Date: 12/21/2024 11:39 Dictated By: Jonah Metzger M.D. Signed By: 12/21/24 1141 DD/ 1139 TD/TT: Lap Machine Tender: [facility] Radiology Study observation (narrative) [facility] US OB BPP W NON-STRESS Ordered By: Radiologist Radiology on 12-21-2024 [facility] Work Phone: US OB GROWTHon 12-21-2024 [place] [address] Ultrasound Report Signed Patient: JANNIE ANTONIO MR#: [id number] : 1985 Acct:[id number] Age/Sex: 39 / F ADM Date: 12/21/24 Loc: US Attending Dr: Norbert Vega D.O. Ordering Physician: Norbert Vega D.O. Date of Service: 12/21/24 Procedure(s): US OB growth Accession Number(s): [id number] cc: Norbert Vega D.O.; Quoc Watts M.D. [place] [address] Patient Name: JANNIE ANTONIO MRN: [facility]:[id number] date: 1985 Sex: F Assigned Patient Location: [facility] Current Patient Location: Accession/Order Number: [id number] Exam Date: 12/21/2024 11:39 Report Date: 12/21/2024 [...] Metzger M.D. 12/21/2024 11:41 AM Dictation Location: [place] [address] Electronically authenticated by: [id number] Y Date: 12/21/2024 11:41 Dictated By: Jonah Metzger M.D. Signed By: 12/21/24 1143 DD/ 1141 TD/TT: Lap Machine Tender: [facility] Radiology, Radiologist, - 12/21/2024 [place] [address] Ultrasound Report Signed Patient: JANNIE ANTONIO MR#: [id number] : 1985 Acct:[id number] Age/Sex: 39 / F ADM Date: 12/21/24 Loc: US Attending Dr: Norbert Vega D.O. Ordering Physician: Norbert Vega D.O. Date of Service: 12/21/24 Procedure(s): US OB growth Accession Number(s): [id number] cc: Norbert Vega D.O.; Quoc Watts M.D. The [place] [id number] Patient Name: JANNIE ANTONIO MRN: [facility]:[id number] date: 1985 Sex: F Assigned Patient Location: [facility] Current Patient Location: Accession/Order Number: [id number] Exam Date: 12/21/2024 11:39 Report Date: 12/21/2024 [...] Metzger M.D. 12/21/2024 11:41 AM Dictation Location: [place] Electronically authenticated by: [id number] Y Date: 12/21/2024 11:41 Dictated By: Jonah Metzger M.D. Signed By: 12/21/24 1143 DD/ 1141 TD/TT: Lap Machine Tender: [facility] Radiology Study observation (narrative) [facility] US OB GROWTHOrdered By: Suleman ologphillip Radiology on 12-21-2024 [facility] Work Phone: US OB FOLLOW UP [...] II, MD, PHD at 13-Dec-2024 08:39:30 AM [facility] Normal Not Available Comment on above: [...] [facility] Glucose, UA Negative Negative - 2000(110) ++++ mg/dL [facility] Interpretation and review of laboratory results Abnormal [facility] Ketones, UA Negative Negative - 160(16) ++++ mg/dL [facility] Leukocytes, UA Negative Negative - 500+++ Celina/mcL [facility] Nitrite, UA Negative Negative - Positive [...] (U) [Mass/Vol] 100 mg/dL Abnormal NEG/TRACE NO [facility] SPECIFIC GRAVITY URINE >=1.030 Abnormal 1.005 - 1.025 [facility] URINE MICROSCOPIC INDICATED YES [facility] UROBILINOGEN URINE 1.0 EU/dL 0.2 - 1.0 EU/dL [facility]IN[facility] UA (CLEAN/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 YELLOW YELLOW [facility] GLUCOSE URINE UA Negative NEGATIVE mg/dL [facility] Ketones Ql (U) Negative NEGATIVE mg/dL [facility] Leukocyte esterase Test strip Ql (U) Negative NEGATIVE [facility] NITRITE URINE Negative NEGATIVE [facility] pH (U) 6.5 [pH] 5.0 - 9.0 [facility] PROTEIN URINE Negative NEG/TRACE mg/dL [facility] SPECIFIC GRAVITY URINE 1.010 1.005 - 1.025 [facility] URINE MICROSCOPIC INDICATED NO [facility] UROBILINOGEN URINE 0.2 EU/dL 0.2 - 1.0 EU/dL [facility] macro (dipstick) panel (U)on 11-27-2024 Bilirubin, UA Negative Negative - 4(70) +++ mg/dL [facility] Blood, UA Positive Negative - 50 Doroteo/mcL [facility] Comment on above: trace Clarity, UA Clear [facility] Color, UA Yellow [facility] Glucose, UA Negative Negative - 1999(110) ++++ mg/dL [facility] Interpretation and review of laboratory results Abnormal [facility] Ketones, UA Positive Negative - 160(16) ++++ mg/dL [facility] Comment on above: trace Leukocytes, UA Trace Negative - 500+++ Celina/mcL [facility] Nitrite, UA Negative Negative - Positive [facility] pH, UA 5.5 5 - 9 [facility] Protein, UA Positive Negative - 1999(20) ++++ mg/dL [facility] Comment on above: 30 Spec Grav, UA 1.025 1 - 1.03 [facility] Urobilinogen, UA 0.2 0.2 - 12 mg/dL [facility] RECURRENT VAGINITIS (HTRX)on 10-03-2024 ATOPOBIUM VAGINAE 0 [facility] ATOPOBIUM VAGINAE Not detected [facility] BVAB 2,3 (BACTERIAL VAGINOSIS ASSOCIATED BACTERIA 2, 3); MOBILUNCUS SPP 0 [facility] BVAB 2,3 (BACTERIAL VAGINOSIS ASSOCIATED BACTERIA 2, 3); MOBILUNCUS SPP Not detected [facility] JAYRO ALBICANS, PARAPSILOSIS, TROPICALIS 0 [facility] JAYRO ALBICANS, PARAPSILOSIS, TROPICALIS Not detected [facility] JAYRO GLABRATA 0 [facility] JAYRO GLABRATA Not detected [facility] JAYRO KRUSEI 0 [facility] JAYRO KRUSEI Not detected [facility] CHLAMYDIA TRACHOMATIS 0 [facility] CHLAMYDIA TRACHOMATIS Not detected N [facility] GARDNERELLA VAGINALIS 0 [facility] GARDNERELLA VAGINALIS Not detected N [facility] MEGASPHAERA (TYPES 1, 2) 0 [facility] MEGASPHAERA (TYPES 1, 2) Not detected [facility] MYCOPLASMA GENITALIUM 0 [facility] MYCOPLASMA GENITALIUM Not detected N [facility] NEISSERIA GONORRHOEAE 0 [facility] NEISSERIA GONORRHOEAE Not detected N [facility] TRICHOMONAS VAGINALIS 0 [facility] TRICHOMONAS VAGINALIS Not detected N [facility] Urinalysis macro (dipstick) panel (U)on 10-02-2024 Bilirubin, UA Negative Negative - 4(70) +++ mg/dL [facility] Blood, UA Positive Negative - 50 Doroteo/mcL [facility] Comment on above: trace-intact Clarity, UA Clear [facility] Color, UA Yellow [facility] Glucose, UA Negative Negative - 1999(110) ++++ mg/dL [facility] Interpretation and review of laboratory results Abnormal [facility] Ketones, UA Negative Negative - 160(16) ++++ mg/dL [facility] Leukocytes, UA Trace Negative - 500+++ Celina/mcL [facility] Nitrite, UA Negative Negative - Positive [facility] pH, UA 7 5 - 9 [facility] Protein, UA Negative Negative - 1999(20) ++++ mg/dL [facility] Spec Grav, UA 1.015 1 - 1.03 [facility] Urobilinogen, UA 0.2 0.2 - 12 mg/dL [facility] AFP, SERUM, OPEN SPINA BIFID Aon 09-16-2024 AFP MOM 0.89 . [facility] AFP VALUE 35.2 ng/mL . [facility] COMMENT: Comment . [facility] Comment on above: Patricia Lozano , Ph.D., [facility] Director References: Available Upon Request. Multiples Of Median Cutoffs For AFP Elevations Zhao 2.5 Black 2.8 IDD 2.0 Twins 4.5 Abbreviation Definitions IDD - Insulin Dep Diabetes OSBR - Open Spina Bifida Risk For further inquiries contact [employer] at [phone]. This test was developed and its performance characteristics determined by [employer]. It has not been cleared or approved by the Food and Drug Administration. Performed at: [facility] [address] [place], [place] [id number] Gmat Instructor: Charlotte Ramos [facility], Phone: [phone] GEST. AGE ON COLLECTION DATE 17.6 . weeks [facility] GESTAT. AGE BASED ON LMP . [facility] Comment on above: Recalculations are n ot recommended when gestational dating by LMP and ultrasound are within 10 days. INSULIN DEP DIABETES No . [facility] INTERPRETATION Comment . [facility] Comment on above: Interpretation: Scre en [...] Customer Services to discuss available options. The [employer] recommends amniocentesis be offered to women age 35 and older. [age] [facility] MULTIPLE GESTATION No . [facility] [place] [address] . [facility] RACE . [facility] RESULTS Report . [facility] TEST RESULTS: Negative . [facility] WEIGHT 158 . lbs [facility] N N LMP [id number] 2 16 N 1 158 N N N N N White/ CLINISYNC [facility] Urinalysis macro (dipstick) panel (U)on 09-04-2024 Bilirubin, UA Negative Negative - 4(70) +++ mg/dL [facility] Blood, UA Negative Negative - 50 Doroteo/mcL [facility] Clarity, UA Clear [facility] Color, UA Yellow [facility] Glucose, UA Negative Negative - 2000(110) ++++ mg/dL [facility] Interpretation and review of laboratory results Abnormal [facility] Ketones, UA Negative Negative - 160(16) ++++ mg/dL [facility] Leukocytes, UA Negative Negative - 500+++ Celina/mcL [facility] Nitrite, UA Negative Negative - Positive [facility] pH, UA 6.5 5 - 9 [facility] Protein, UA Negative Negative - 2000(20) ++++ mg/dL [facility] Spec Grav, UA 1.02 1 - 1.03 [facility] Urobilinogen, UA 0.2 0.2 - 12 mg/dL [facility] DRUG SCREEN RAPID (URINE )on 07-31-2024 AMPHETAMINE SCREEN URINE Negative NEGATIVE [facility] BARBITURATES SCREEN URINE Negative NEGATIVE [facility] BENZODIAZEPINES SCREEN URINE Negative NEGATIVE [facility] BUPRENORPHINE SCREEN URINE Negative NEGATIVE [facility] Comment on above: DRUG CLASS TEST [...] 300 ng/mL CANNABINOID SCREEN URINE Negative NEGATIVE [facility] COCAINE SCREEN URINE Negative NEGATIVE [facility] METHADONE SCREEN URINE Negative NEGATIVE NO [facility] METHAMPHETAMINES SCREEN URINE Negative NEGATIVE [facility] OPIATE SCREEN URINE Negative NEGATIVE [facility] OXYCODONE SCREEN URINE Negative NEGATIVE NO [facility] PHENCYCLIDINE SCREEN URINE Negative NEGATIVE [facility] TRICYCLIC ANTIDEPRESSANT URINE Negative NEGATIVE [facility] Urine Cultureon 07-31-2024 Bacteria identified Cx Nom (U) 20,000 colonies/ml mixed bacterial skin contaminants 2 Days PERFORMED BY: [facility] [address] [place] [address] PATHOLOGIST BILLING ADMINISTRATOR NAIDA GARZON M.D. Normal [facility] Comment on above: Performed By: #### C UU #### [facility] [address] BOX TESTon 07-28-2024 BOX TEST SENT OUT [facility] [address] [facility] [address] 07/28/24 [facility] HCG ( test) Ql (U)o n 07-28-2024 Interpretation and review of laboratory results Abnormal [facility] Preg Test, Ur Positive Negative [facility] Urinalysis macro (dipstick) panel (U)on 07-28-2024 Bilirubin, UA Negative Negative - 4(70) +++ mg/dL [facility] Blood, UA Positive Negative - 50 Doroteo/mcL [facility] Clarity, UA Clear [facility] Color, UA Yellow [facility] Glucose, UA Negative Negative - 2000(110) ++++ mg/dL [facility] Interpretation and review of laboratory results Abnormal [facility] Ketones, UA Negative Negative - 160(16) ++++ mg/dL [facility] Leukocytes, UA Negative Negative - 500+++ Celina/mcL [facility] Nitrite, UA Negative Negative - Positive [facility] pH, UA 6.5 5 - 9 [facility] Protein, UA Trace Negative - 1999(20) ++++ mg/dL [facility] Spec Grav, UA 1.025 1 - 1.03 [facility] Urobilinogen, UA 0.2 0.2 - 12 mg/dL [facility] PREG QUANT HCGon 024 HCG QUANTITATIVE 87305 mIU/mL [facility] Comment on above: 5-50 0.2-1 WEEK 50-500 1-2 WEEKS 100-5,000 2-3 WEEKS 500-10,000 3-4 WEEKS 1,000-50,000 4-5 WEEKS 10,000-100,000 5-6 WEEKS 15,000-200,000 6-8 WEEKS 10,000-100,000 2-3 MONTHS [facility]IN[facility] TB PREG QUANT HCGon 024 HCG QUANTITATIVE 4062 mIU/mL [facility] Comment on above: 5-50 0.2-1 WEEK 50-500 1-2 WEEKS 100-5,000 2-3 WEEKS 500-10,000 3-4 WEEKS 1,000-50,000 4-5 WEEKS 10,000-100,000 5-6 WEEKS 15,000-200,000 6-8 WEEKS 10,000-100,000 2-3 MONTHS CLINISYNC [facility] TBH PREG QUANT HCGon 024 HCG QUANTITATIVE 3108 mIU/mL [facility] Comment on above: 5-50 0.2-1 WEEK 50-500 1-2 WEEKS 100-5,000 2-3 WEEKS 500-10,000 3-4 WEEKS 1,000-50,000 4-5 WEEKS 10,000-100,000 5-6 WEEKS 15,000-200,000 6-8 WEEKS 10,000-100,000 2-3 MONTHS CLIN[facility] ALL CBC WITH AUTO DIFFon BASOPHILS ABSOLUTE AUTO 0.0 N [facility] Basophils/100 WBC (Bld) 0.2 % 0.2 - 2.0 % [facility] Eosinophils/100 WBC (Bld) 0.8 % Low 0.9 - 7.0 % [facility] Erythrocyte distribution width (RBC) [Ratio] 13.4 % 11.0 - 15.0 % [facility] Hematocrit (Bld) [Volume fraction] 42.3 % 36.0 - 48.0 % [facility] Hemoglobin (Bld) [Mass/Vol] 13.6 g/dL 12.0 - 16.0 g/dL [facility] IMMATURE GRANULOCYTES ABS AUTO 0.02 [facility] Immature granulocytes/100 WBC (Bld) 0.3 % 0.0 - 0.5 % [facility] Interpretation and review of laboratory results Abnormal [facility] LYMPHOCYTES ABSOLUTE AUTO 1.7 [facility] Lymphocytes/100 WBC (Bld) 26.5 % 20 .5 - 60.0 % [facility] MCH (RBC) [Entitic mass] 30.1 pg 26. 7 - 34.0 pg [facility] MCHC (RBC) [Mass/Vol] 32.2 g/dL 29.9 - 35.2 g/dL [facility] MCV (RBC) [Entitic vol] 93.6 fL 81.0 - 99.0 fL [facility] MONOCYTES ABSOLUTE AUTO 0.5 N [facility] Monocytes/100 WBC (Bld) 7.3 % 1.7 - 12.0 % [facility] NEUTROPHILS ABSOLUTE AUTO 4.3 [facility] [facility] Neutrophils/100 WBC (Bld) 64.9 % 43 .0 - 75.0 % [facility] Platelet mean volume (Bld) [Entitic vol] 10.8 fL 9.5 - 13.5 fL [facility] TB EO # 0.1 [facility] TB PLT 220 [facility] TBH RBC 4.52 [facility] WBC 6.5 [facility] CLINISYNC [facility] PROGESTERONEon 12-19-2022 Progesterone 9.6 ng/mL Normal [facility] Comment on above: Result Comment: Foll icular phase 0.1 - 0.9 Luteal phase 1.8 - 23.9 Ovulation phase 0.1 - 12.0 First trimester 11.0 - 44.3 Second trimester 25.4 - 83.3 Third trimester 58.7 - 214.0 Postmenopausal 0.0 - 0.1 Performed By: #### P DAXA #### [facility] [address] [place] [address] Dr. Josie Sanchez PROGESTERONEon 11-19-2022 Progesterone 6.3 ng/mL Normal [facility] Comment on above: Result Comment: Foll icular phase 0.1 - 0.9 Luteal phase 1.8 - 23.9 Ovulation phase 0.1 - 12.0 First trimester 11.0 - 44.3 Second trimester 25.4 - 83.3 Third trimester 58.7 - 214.0 Postmenopausal 0.0 - 0.1 Performed By: #### P DAXA #### [facility] [address] [place] [address] Dr. Josie Sanchez PREG QUANT HCGon 11-18-2022 HCG QUANT <1 Normal [facility] Comment on above: Performed By: #### P REGQNT #### [facility] [address] [place] [address] Dr. Josie Sanchez HCG RANGE SEE BELOW Normal [facility] Comment on above: Result Comment: 5-50 0.2-1 WEEK 50-500 1-2 WEEKS 100-5,000 2-3 WEEKS 500-10,000 3-4 WEEKS 1,000-50,000 4-5 WEEKS 10,000-100,000 5-6 WEEKS 15,000-200,000 6-8 WEEKS 10,000-100,000 2-3 MONTHS Performed By: #### P REGQNT #### [facility] [address] [address] [address] Josie Sanchez US PELVIS AND TRANSVAGon [...] a yolk sac as noted by medical technologist clinical. No significant free pelvic fluid is seen. IMPRESSION: Hypoechoic structure with internal anechoic structure is seen in the left ovary, as well as thickened endometrium. Ectopic cannot be excluded. Clinical, laboratory and possible follow-up sonographic correlation is recommended. This report was placed in the stat call folder for immediate notification of the referring clinician. Electronically authenticated by: RENE MEYERS Date: 2022-11-16 18:09 Normal [facility] DHEA SERUMon 11-11-2022 Dehydroepiandrosterone (DHEA) 335 ng/dL Normal 31-701 [facility] Comment on above: Performed By: #### E RILEY MEANS #### [facility] [address] [place] [address] Dr. Josie Sanchez DHEA-SULFATEon 11-10-2022 DHEA-Sulfate 251.0 ug/dL Normal 57.3-279.2 [facility] Comment on above: Performed By: #### P REGQNT #### [facility] [address] [place] [address] Dr. Josie Sanchez ESTRADIOLon 11-10-2022 Estradiol 66.1 pg/mL Normal [facility] Comment on above: Result Comment: Adul t Female: Follicular phase 12.5 - 166.0 Ovulation phase 85.8 - 498.0 Luteal phase 43.8 - 211.0 Postmenopausal <6.0 - 54.7 1st trimester 215.0 - >4300.0 [facility] ECLIA methodology Performed By: #### RILEY VALERIO #### [facility] [address] [place] [address] Dr. Josie Sanchez FSHon 11-10-2022 FSH 6.9 mIU/mL Normal [facility] Comment on above: Result Comment: Adul t Female: Follicular phase 3.5 - 12.5 Ovulation phase 4.7 - 21.5 Luteal phase 1.7 - 7.7 Postmenopausal 25.8 - 134.8 Performed By: #### P REGQNT #### [facility] [address] [place] [address] Dr. Josie Sanchez LUTEINIZING HORMONE (LH)on 0 11-10-2022 LH 9.9 mIU/mL Normal [facility] Comment on above: Result Comment: Adul t Female: Follicular phase 2.4 - 12.6 Ovulation phase 14.0 - 95.6 Luteal phase 1.0 - 11.4 Postmenopausal 7.7 - 58.5 Performed By: #### RILEY VALERIO #### [facility] [address] [place] [address] Dr. Josie Sanchez CBC AUTO DIFFon 11-09-2022 BASO # 0.0 103/ul Normal 0.0-0.1 [facility] Comment on above: Performed By: #### RILEY VALERIO #### [facility] [address] [place] [address] Dr. Josie Sanchez Basophils/100 WBC (Bld) 0.3 % Normal 0.2-2.0 [facility] Comment on above: Performed By: #### RILEY VALERIO #### [facility] [address] [place] [address] Dr. Josie Sanchez EO # 0.0 103/ul Normal 0.0-0.7 [facility] Comment on above: Performed By: #### RILEY VALERIO #### [facility] [address] [place] [address] Dr. Josie Sanchez Eosinophils/100 WBC (Bld) 0.5 % Critically low 0.9-7. 0 [facility] Comment on above: Performed By: #### RILEY VALERIO #### [facility] [address] [place] [address] Dr. Josie Sanchez Erythrocyte distribution width (RBC) [Ratio] 13.2 % Normal 11.0-15.0 [facility] Comment on above: Performed By: #### KIAN VALERIORO #### [facility] [address] [place] [address] Dr. Josie Sanchez Hematocrit (Bld) [Volume fraction] 41.8 % Normal 36.0-48.0 [facility] Comment on above: Performed By: #### KIAN VALERIORO #### [facility] [address] [place] [address] Dr. Josie Sanchez Hemoglobin (Bld) [Mass/Vol] 13.7 g/dL Normal 12.0-16.0 [facility] Comment on above: Performed By: #### KIAN VALERIORO #### [facility] [address] [place] [address] Dr. Josie Sanchez IG # 0.02 10e3/ul Normal 0.00-0.03 [facility] Comment on above: Performed By: #### KIAN VALERIORO #### [facility] [address] [place] [address] Dr. Josie Sanchez IG % 0.3 % Normal 0.0-0.5 [facility] Comment on above: Performed By: #### KIAN VALERIORO #### [facility] [address] [place] [address] Dr. Josie Sanchez LYMPH # 1.2 103/ul Normal 1.2-3.8 [facility] Comment on above: Performed By: #### KIAN VALERIORO #### [facility] [address] [place] [address] Dr. Josie Sanchez Lymphocytes/100 WBC (Bld) 18.4 % Critically low 20.5-6 0.0 [facility] Comment on above: Performed By: #### Clyde MEANS UMICRO #### [facility] [address] [place] [address] Dr. Josie Sanchez MANUAL DIFF REQ NO Normal [facility] Comment on above: Performed By: #### E MIGUELANGEL UMICRO #### [facility] [address] [place] [address] Dr. Josie Sanchez MCH (RBC) [Entitic mass] 29.5 pg Normal 26.7-34.0 [facility] Comment on above: Performed By: #### Clyde MEANS UMICRO #### [facility] [address] [place] [address] Dr. Josie Sancehz MCHC (RBC) [Mass/Vol] 32.8 g/dL Normal 29.9-35.2 [facility] Comment on above: Performed By: #### Clyde MEANS UMICRO #### [facility] [address] [place] [address] Dr. Josie Sanchez MCV (RBC) [Entitic vol] 89.9 fL Normal 81.0-99.0 [facility] Comment on above: Performed By: #### Clyde MEANS UMICRO #### [facility] [address] [place] [address] Dr. Josie Sanchez MONO # 0.3 103/ul Normal 0.3-0.8 [facility] Comment on above: Performed By: #### Clyde MEANS UMICRO #### [facility] [address] [place] [address] Dr. Josie Sanchez Monocytes/100 WBC (Bld) 5.1 % Normal 1.7-12.0 [facility] Comment on above: Performed By: #### Clyde MEANS UMICRO #### [facility] [address] [place] [address] Dr. Josie Sanchez NEUT # 4.8 103/ul Normal 1.4-6.5 [facility] Comment on above: Performed By: #### Clyde MEANS UMICRO #### [facility] [address] [place] [address] Dr. Josie Sanchez Neutrophils/100 WBC (Bld) 75.4 % Critically high 43.0- 75.0 [facility] Comment on above: Performed By: #### RILEY VALERIO #### [facility] [address] [place] [address] Dr. Josie Sanchez Platelet mean volume (Bld) [Entitic vol] 9.8 fL Normal 9.5-13.5 [facility] Comment on above: Performed By: #### KIAN VALERIORO #### [facility] [address] [place] [address] Dr. Josie Sanchez PLT 256 103/ul Normal 150-450 [facility] Comment on above: Performed By: #### KIAN VALERIORO #### [facility] [address] [place] [address] Dr. Josie Sanchez RBC 4.65 106/ul Normal 4.20-5.40 [facility] Comment on above: Performed By: #### KIAN VALERIORO #### [facility] [address] [place] [address] Dr. Josie Sanchez WBC 6.4 103/ul Normal 4.0-11.0 [facility] Comment on above: Performed By: #### IKAN VALERIORO #### [facility] [address] [place] [address] Dr. Josie Sanchez FERRITINon 11-09-2022 Ferritin [Mass/Vol] 42.0 ng/mL Normal 6.2-137.0 [facility] Comment on above: Performed By: #### KIAN VALERIORO #### [facility] [address] [place] [address] Dr. Josie Sanchez FREE T4on 11-09-2022 Free T4 [Mass/Vol] 0.87 ng/dL Normal 0.76-1.46 [facility] Comment on above: Performed By: #### KIAN VALERIORO #### [facility] [address] [place] [address] Dr. Josie Sanchez GLYCOHEMOGLOBIN A1Con 2022 ADA RECOMMENDATION SEE BELOW Normal [facility] Comment on above: Result Comment: ADA RECOMMENDED LIMIT 4.0 - 6.0 ADA THERAPEUTIC TARGET < 7.0 ACTION SUGGESTED > 7.0 Performed By: #### RILEY VALERIO #### [facility] [address] [place] [address] Dr. Josie Sanchez Glucose [Mass/Vol] 100 mg/dL Normal [facility] Comment on above: Performed By: #### RILEY VALERIO #### [facility] [address] [place] [address] Dr. Josie Sanchez HbA1c (Bld) [Mass fraction] 5.1 % Normal 4.5-6.2 [facility] Comment on above: Performed By: #### RILEY VALERIO #### [facility] [address] [place] [address] Dr. Josie Sanchez PREG QUANT HCGon 11-09-2022 HCG QUANT <1 Normal [facility] Comment on above: Performed By: #### RILEY VALERIO #### [facility] [address] [place] [address] Dr. Josie Sanchez HCG RANGE SEE BELOW Normal [facility] Comment on above: Result Comment: 5-50 0.2-1 WEEK 50-500 1-2 WEEKS 100-5,000 2-3 WEEKS 500-10,000 3-4 WEEKS 1,000-50,000 4-5 WEEKS 10,000-100,000 5-6 WEEKS 15,000-200,000 6-8 WEEKS 10,000-100,000 2-3 MONTHS Performed By: #### RILEY VALERIO #### [facility] [address] [place] [address] Dr. Josie Sanchez TSHon 11-09-2022 TSH 2.163 uIU/mL Normal 0.358-3.740 [facility] Comment on above: Performed By: #### RILEY VALERIO #### [facility] [address] [place] [address] Dr. Josie Sanchez PROGESTERONEon 08-29-2022 Progesterone 7.3 ng/mL Normal [facility] Comment on above: Result Comment: Foll icular phase 0.1 - 0.9 Luteal phase 1.8 - 23.9 Ovulation phase 0.1 - 12.0 First trimester 11.0 - 44.3 Second trimester 25.4 - 83.3 Third trimester 58.7 - 214.0 Postmenopausal 0.0 - 0.1 Performed By: #### P ROGES #### [facility] [address] [place] [address] Dr. Josie Sanchez INSULINon 08-13-2022 Insulin 12.5 uIU/mL Normal 2.6-24.9 [facility] Comment on above: Performed By: #### P REGQNT #### [facility] [address] [place] [address] Dr. Josie Sanchez CBC AUTO DIFFon 08-12-2022 BASO # 0.0 103/ul Normal 0.0-0.1 [facility] Comment on above: Performed By: #### RILEY VALERIO #### [facility] [address] [place] [address] Dr. Josie Sanchez Basophils/100 WBC (Bld) 0.2 % Normal 0.2-2.0 [facility] Comment on above: Performed By: #### RILEY VALERIO #### [facility] [address] [place] [address] Dr. Josei Sanchez EO # 0.1 103/ul Normal 0.0-0.7 [facility] Comment on above: Performed By: #### RILEY VALERIO #### [facility] [address] [place] [address] Dr. Josie Sanchez Eosinophils/100 WBC (Bld) 0.8 % Critically low 0.9-7. 0 [facility] Comment on above: Performed By: #### RILEY VALERIO #### [facility] [address] [place] [address] Dr. Josie Sanchez Erythrocyte distribution width (RBC) [Ratio] 14.0 % Normal 11.0-15.0 [facility] Comment on above: Performed By: #### RILEY VALERIO #### [facility] [address] [place] [address] Dr. Josie Sanchez Hematocrit (Bld) [Volume fraction] 39.5 % Normal 36.0-48.0 [facility] Comment on above: Performed By: #### E RUR, UMICRO #### [facility] [address] [place] [address] Dr. Josie Sanchez Hemoglobin (Bld) [Mass/Vol] 12.7 g/dL Normal 12.0-16.0 [facility] Comment on above: Performed By: #### E YOSELINR, UMICRO #### [facility] [address] [place] [address] Dr. Josie Sanchez IG # 0.02 10e3/ul Normal 0.00-0.03 [facility] Comment on above: Performed By: #### Clyde MEANS, UMICRO #### [facility] [address] [place] [address] Dr. Josie Sanchez IG % 0.3 % Normal 0.0-0.5 [facility] Comment on above: Performed By: #### Clyde MEANS, UMICRO #### [facility] [address] [place] [address] Dr. Josie Sanchez LYMPH # 1.6 103/ul Normal 1.2-3.8 [facility] Comment on above: Performed By: #### Clyde MEANS, UMICRO #### [facility] [address] [place] [address] Dr. Josie Sanchez Lymphocytes/100 WBC (Bld) 26.9 % Normal 20.5-60.0 [facility] Comment on above: Performed By: #### Clyde MEANS, UMICRO #### [facility] [address] [place] [address] Dr. Josie Sanchez MANUAL DIFF REQ NO Normal [facility] Comment on above: Performed By: #### E RUR, UMICRO #### [facility] [address] [place] [address] Dr. Josie Sanchez MCH (RBC) [Entitic mass] 28.3 pg Normal 26.7-34.0 [facility] Comment on above: Performed By: #### KIAN VALERIORO #### [facility] [address] [place] [address] Dr. Josie Sanchez MCHC (RBC) [Mass/Vol] 32.2 g/dL Normal 29.9-35.2 [facility] Comment on above: Performed By: #### KIAN VALERIORO #### [facility] [address] [place] [address] Dr. Josie Sanchez MCV (RBC) [Entitic vol] 88.0 fL Normal 81.0-99.0 [facility] Comment on above: Performed By: #### KIAN VALERIORO #### [facility] [address] [place] [address] Dr. Josie Sanchez MONO # 0.4 103/ul Normal 0.3-0.8 [facility] Comment on above: Performed By: #### KIAN VALERIORO #### [facility] [address] [place] [address] Dr. Josie Sanchez Monocytes/100 WBC (Bld) 7.1 % Normal 1.7-12.0 [facility] Comment on above: Performed By: #### KIAN VALERIORO #### [facility] [address] [place] [address] Dr. Josie Sanchez NEUT # 3.8 103/ul Normal 1.4-6.5 [facility] Comment on above: Performed By: #### KIAN VALERIORO #### [facility] [address] [place] [address] Dr. Josie Sanchez Neutrophils/100 WBC (Bld) 64.7 % Normal 43.0-75.0 [facility] Comment on above: Performed By: #### KIAN VALERIORO #### [facility] [address] [place] [address] Dr. Josie Sanchez Platelet mean volume (Bld) [Entitic vol] 10.1 fL Normal 9.5-13.5 [facility] Comment on above: Performed By: #### KIAN VALERIORO #### [facility] [address] [address] [address] Josie Sanchez PLT 211 103/ul Normal 150-450 [facility] Comment on above: Performed By: #### KIAN VALERIORO #### [facility] [address] [place] [address] Dr. Josie Sanchez RBC 4.49 106/ul Normal 4.20-5.40 [facility] Comment on above: Performed By: #### KIAN VALERIORO #### [facility] [address] [place] [address] Dr. Josie Sanchez WBC 5.9 103/ul Normal 4.0-11.0 [facility] Comment on above: Performed By: #### KIAN VALERIORO #### [facility] [address] [place] [address] Dr. Josie Sanchez FREE THYROXINE INDEX T7on FTI 2.63 Normal 1.30-4.50 [facility] Comment on above: Performed By: #### RILEY VALERIO #### [facility] [address] [place] [address] Dr. Josie Sanchez T3U 35.0 % Normal 30.0-39.0 [facility] Comment on above: Performed By: #### KIAN VALERIORO #### [facility] [address] [place] [address] Dr. Josie Sanchez T4 [Mass/Vol] 7.50 ug/dL Normal 4.80-13.90 [facility] Comment on above: Performed By: #### KIAN VALERIORO #### [facility] [address] [place] [address] Dr. Josie Sanchez GLYCOHEMOGLOBIN A1Con 2022 ADA RECOMMENDATION SEE BELOW Normal [facility] Comment on above: Result Comment: ADA RECOMMENDED LIMIT 4.0 - 6.0 ADA THERAPEUTIC TARGET < 7.0 ACTION SUGGESTED > 7.0 Performed By: #### RILEY VALERIO #### [facility] [address] [place] [address] Dr. Josie Sanchez Glucose [Mass/Vol] 111 mg/dL Normal [facility] Comment on above: Performed By: #### RILEY VALERIO #### [facility] [address] [place] [address] Dr. Josie Sanchez HbA1c (Bld) [Mass fraction] 5.5 % Normal 4.5-6.2 [facility] Comment on above: Performed By: #### RILEY VALERIO #### [facility] [address] [place] [address] Dr. Josie Sanchez IRONon 08-12-2022 Iron [Mass/Vol] 40.0 ug/dL Critically low 50.0-170.0 [facility] Comment on above: Performed By: #### P REGQNT #### [facility] [address] [place] [address] Dr. Josie Sanchez LIPID PROFILEon 08-12-2022 CHOL-HDL RATIO NORM SEE BELOW Normal [facility] Comment on above: Result Comment: 3.3 - 4.4 LOW RISK 4.4 - 7.1 AVERAGE RISK 7.1 - 11.0 MODERATE RISK >11.0 HIGH RISK Performed By: #### P REGQNT #### [facility] [address] [place] [address] Dr. Josie Sanchez Cholesterol [Mass/Vol] 183 mg/dL Normal <=200 [facility] Comment on above: Performed By: #### P REGQNT #### [facility] [address] [place] [address] Dr. Josie Sanchez Cholesterol in HDL [Mass/Vol] 40 mg/dL Normal 40-60 [facility] Comment on above: Performed By: #### P REGQNT #### [facility] [address] [place] [address] Dr. Josie Sanchez Cholesterol in LDL [Mass/Vol] 131.0 mg/dL Normal [facility] Comment on above: Performed By: #### P REGQNT #### [facility] [address] [place] [address] Dr. Josie Sanchez Cholesterol.total/Choleste rol in HDL [Mass ratio] 4.6 {ratio} Normal [facility] Comment on above: Performed By: #### P REGQNT #### [facility] [address] [address] [address] Josie Sanchez HDL NORMAL > or = 60 mg/dl - LOW CARDIOVASCULAR RISK <40 mg/dl - HIGH CARDIOVASCULAR RISK Normal [facility] Comment on above: Performed By: #### P REGQNT #### [facility] [address] [address] [address] Josie Sanchez LDL CALC NORMAL SEE BELOW Normal [facility] Comment on above: Result Comment: <100 mg/dl OPTIMAL 100 - 129 mg/dl NEAR OR ABOVE OPTIMAL 130 - 159 mg/dl BORDERLINE HIGH 160 - 189 mg/dl HIGH >190 mg/dl VERY HIGH Performed By: #### P REGQNT #### [facility] [address] [place] [address] Dr. Josie Sanchez Triglyceride [Mass/Vol] 60 mg/dL Normal <=150 T [facility] Comment on above: Performed By: #### P REGQNT #### [facility] [address] [address] [address] Josie Sanchez VLDL CALC 12.0 mg/dL Normal [facility] Comment on above: Performed By: #### P REGQNT #### [facility] [address] [place] [address] Dr. Josie Sanchez PROF 14(COMP METB)on 023 Albumin [Mass/Vol] 3.7 g/dL Normal 3.4-5.0 [facility] Comment on above: Performed By: #### RILEY VALERIO #### [facility] [address] [place] [address] Dr. Josie Sanchez Albumin/Globulin [Mass ratio] 0.9 {ratio} Normal [facility] Comment on above: Performed By: #### KIAN VALERIORO #### [facility] [address] [address] [address] Josie Sanchez ALP [Catalytic activity/Vol] 131 U/L Critically high 46-116 [facility] Comment on above: Performed By: #### E RUR, UMICRO #### [facility] [address] [place] [address] Dr. Josie Sanchez ALT [Catalytic activity/Vol] 23 U/L Normal 14-59 [facility] Comment on above: Performed By: #### E YOSELINR, UMICRO #### [facility] [address] [place] [address] Dr. Josie Sanchez Anion gap [Moles/Vol] 10.5 mmol/L Normal [facility] Comment on above: Performed By: #### E RUR, UMICRO #### [facility] [address] [place] [address] Dr. Josie Sanchez AST [Catalytic activity/Vol] 18 U/L Normal 15-37 [facility] Comment on above: Performed By: #### E YOSELINR, UMICRO #### [facility] [address] [place] [address] Dr. Josie Sanchez Bilirubin [Mass/Vol] 0.7 mg/dL Normal 0.2-1.0 [facility] Comment on above: Performed By: #### E MIGUELANGEL, UMICRO #### [facility] [address] [place] [address] Dr. Josie Sanchez Calcium [Mass/Vol] 8.7 mg/dL Normal 8.5-10.1 [facility] Comment on above: Performed By: #### E YOSELINR, UMICRO #### [facility] [address] [place] [address] Dr. Josie Sanchez Chloride [Moles/Vol] 103 mmol/L Normal 98-107 [facility] Comment on above: Performed By: #### E RUJolie, UMICRO #### [facility] [address] [place] [address] Dr. Josie Sanchez CO2 [Moles/Vol] 30.1 mmol/L Normal 21.0-32.0 [facility] Comment on above: Performed By: #### E RUR, UMICRO #### [facility] [address] [place] [address] Dr. Josie Sanchez Creatinine [Mass/Vol] 0.66 mg/dL Normal 0.55-1.02 [facility] Comment on above: Performed By: #### RILEY VALERIO #### [facility] [address] [place] [address] Dr. Josie Sanchez EGFR-AF SAMOAN >60 Normal >=60 [facility] Comment on above: Performed By: #### RILEY VALERIO #### [facility] [address] [place] [address] Dr. Josie Sanchez EGFR-NON AF SAMOAN >60 Normal >=60 [facility] Comment on above: Performed By: #### RILEY VALERIO #### [facility] [address] [place] [address] Dr. Josie Sanchez Globulin (S) [Mass/Vol] 4.3 g/dL Normal T [facility] Comment on above: Performed By: #### RILEY VALERIO #### [facility] [address] [place] [address] Dr. Josie Sanchez Glucose [Mass/Vol] 90 mg/dL Normal 74-106 [facility] Comment on above: Performed By: #### RILEY VALERIO #### [facility] [address] [place] [address] Dr. Josie Sanchez Potassium [Moles/Vol] 3.6 mmol/L Normal 3.5-5.1 [facility] Comment on above: Performed By: #### RILEY VALERIO #### [facility] [address] [place] [address] Dr. Josie Sanchez Protein [Mass/Vol] 8.0 g/dL Normal 6.4-8.2 [facility] Comment on above: Performed By: #### RILEY VALERIO #### [facility] [address] [place] [address] Dr. Josie Sanchez Sodium [Moles/Vol] 140 mmol/L Normal 136-145 [facility] Comment on above: Performed By: #### RILEY VALERIO #### [facility] [address] [place] [address] Dr. Josie Sanchez Urea nitrogen [Mass/Vol] 12.0 mg/dL Normal 7.0-18.0 [facility] Comment on above: Performed By: #### RILEY VALERIO #### [facility] [address] [place] [address] Dr. Josie Sanchez Urea nitrogen/Creatinine [Mass ratio] 18.2 mg/mg Normal [facility] Comment on above: Performed By: #### RILEY VALERIO #### [facility] [address] [place] [address] Dr. Josie Sanchez TSHon 08-12-2022 TSH 3.070 uIU/mL Normal 0.358-3.740 [facility] Comment on above: Performed By: #### P REGQNT #### [facility] [address] [place] [address] Dr. Josie Sanchez PREG QUANT HCGon 06-22-2022 HCG QUANT 1 mIU/mL Normal [facility] Comment on above: Performed By: #### RILEY VALERIO #### [facility] [address] [place] [address] Dr. Josie Sanchez HCG RANGE SEE BELOW Normal [facility] Comment on above: Result Comment: 5-50 0.2-1 WEEK 50-500 1-2 WEEKS 100-5,000 2-3 WEEKS 500-10,000 3-4 WEEKS 1,000-50,000 4-5 WEEKS 10,000-100,000 5-6 WEEKS 15,000-200,000 6-8 WEEKS 10,000-100,000 2-3 MONTHS Performed By: #### RILEY VALERIO #### [facility] [address] [place] [address] Dr. Josie Sanchez PREG QUANT HCGon 05-20-2022 HCG QUANT 6 mIU/mL Normal [facility] Comment on above: Performed By: #### P REGQNT #### [facility] [address] [place] [address] Dr. Josie Sanchez HCG RANGE SEE BELOW Normal [facility] Comment on above: Result Comment: 5-50 0.2-1 WEEK 50-500 1-2 WEEKS 100-5,000 2-3 WEEKS 500-10,000 3-4 WEEKS 1,000-50,000 4-5 WEEKS 10,000-100,000 5-6 WEEKS 15,000-200,000 6-8 WEEKS 10,000-100,000 2-3 MONTHS Performed By: #### P REGQNT #### [facility] [address] [place] [address] Dr. Josie Sanchez PREG QUANT HCGon 05-14-2022 HCG QUANT 26 mIU/mL Normal [facility] Comment on above: Performed By: #### P REGQNT #### [facility] [address] [place] [address] Dr. Josie Sanchez HCG RANGE SEE BELOW Normal [facility] Comment on above: Result Comment: 5-50 0.2-1 WEEK 50-500 1-2 WEEKS 100-5,000 2-3 WEEKS 500-10,000 3-4 WEEKS 1,000-50,000 4-5 WEEKS 10,000-100,000 5-6 WEEKS 15,000-200,000 6-8 WEEKS 10,000-100,000 2-3 MONTHS Performed By: #### P REGQNT #### [facility] [address] [place] [address] Dr. Josie Sanchez CBC AUTO DIFFon 05-08-2022 BASO # 0.0 103/ul Normal 0.0-0.1 [facility] Comment on above: Performed By: #### RILEY VALERIO #### [facility] [address] [place] [address] Dr. Josie Sanchez Basophils/100 WBC (Bld) 0.2 % Normal 0.2-2.0 [facility] Comment on above: Performed By: #### RILEY VALERIO #### [facility] [address] [place] [address] Dr. Josie Sanchez EO # 0.0 103/ul Normal 0.0-0.7 [facility] Comment on above: Performed By: #### RILEY VALERIO #### [facility] [address] [place] [address] Dr. Josie Sanchez Eosinophils/100 WBC (Bld) 0.5 % Critically low 0.9-7. 0 [facility] Comment on above: Performed By: #### KIAN VALERIORO #### [facility] [address] [place] [address] Dr. Josie Sanchez Erythrocyte distribution width (RBC) [Ratio] 12.8 % Normal 11.0-15.0 [facility] Comment on above: Performed By: #### KIAN VALERIORO #### [facility] [address] [place] [address] Dr. Josie Sanchez Hematocrit (Bld) [Volume fraction] 41.0 % Normal 36.0-48.0 [facility] Comment on above: Performed By: #### KIAN VALERIORO #### [facility] [address] [place] [address] Dr. Josie Sanchez Hemoglobin (Bld) [Mass/Vol] 13.4 g/dL Normal 12.0-16.0 [facility] Comment on above: Performed By: #### KIAN VALERIORO #### [facility] [address] [place] [address] Dr. Josie Sanchez IG # 0.02 10e3/ul Normal 0.00-0.03 [facility] Comment on above: Performed By: #### KIAN VALERIORO #### [facility] [address] [place] [address] Dr. Josie Sanchez IG % 0.3 % Normal 0.0-0.5 [facility] Comment on above: Performed By: #### KIAN VALERIORO #### [facility] [address] [place] [address] Dr. Josie Sanchez LYMPH # 1.6 103/ul Normal 1.2-3.8 [facility] Comment on above: Performed By: #### KIAN VALERIORO #### [facility] [address] [place] [address] Dr. Josie Sanchez Lymphocytes/100 WBC (Bld) 27.1 % Normal 20.5-60.0 [facility] Comment on above: Performed By: #### KIAN VALERIORO #### [facility] [address] [place] [address] Dr. Josie Sanchez MANUAL DIFF REQ NO Normal [facility] Comment on above: Performed By: #### KIAN VALERIORO #### [facility] [address] [place] [address] Dr. Josie Sanchez MCH (RBC) [Entitic mass] 29.3 pg Normal 26.7-34.0 [facility] Comment on above: Performed By: #### KIAN VALERIORO #### [facility] [address] [place] [address] Dr. Josie Sanchez MCHC (RBC) [Mass/Vol] 32.7 g/dL Normal 29.9-35.2 [facility] Comment on above: Performed By: #### KIAN VALERIORO #### [facility] [address] [place] [address] Dr. Josie Sanchez MCV (RBC) [Entitic vol] 89.5 fL Normal 81.0-99.0 [facility] Comment on above: Performed By: #### KIAN VALERIORO #### [facility] [address] [place] [address] Dr. Josie Sanchez MONO # 0.5 103/ul Normal 0.3-0.8 [facility] Comment on above: Performed By: #### KIAN VALERIORO #### [facility] [address] [place] [address] Dr. Josie Sanchez Monocytes/100 WBC (Bld) 8.6 % Normal 1.7-12.0 [facility] Comment on above: Performed By: #### KIAN VALERIORO #### [facility] [address] [place] [address] Dr. Josie Sanchez NEUT # 3.7 103/ul Normal 1.4-6.5 [facility] Comment on above: Performed By: #### KIAN VALERIORO #### [facility] [address] [place], [place] [id number] Dr. Josie Sanchez Neutrophils/100 WBC (Bld) 63.3 % Normal 43.0-75.0 [facility] Comment on above: Performed By: #### RILEY VALERIO #### [facility] [address] [place] [address] Dr. Josie Sanchez Platelet mean volume (Bld) [Entitic vol] 9.8 fL Normal 9.5-13.5 [facility] Comment on above: Performed By: #### KIAN VALERIORO #### [facility] [address] [place] [address] Dr. Josie Sanchez PLT 238 103/ul Normal 150-450 [facility] Comment on above: Performed By: #### KIAN VALERIORO #### [facility] [address] [place] [address] Dr. Josie Sanchez RBC 4.58 106/ul Normal 4.20-5.40 [facility] Comment on above: Performed By: #### KIAN VALERIORO #### [facility] [address] [place] [address] Dr. Josie Sanchez WBC 5.8 103/ul Normal 4.0-11.0 [facility] Comment on above: Performed By: #### KIAN VALERIORO #### [facility] [address] [place] [address] Dr. Josie Sanchez PREG QUANT HCGon 05-08-2022 HCG QUANT 2335 mIU/mL Normal [facility] Comment on above: Performed By: #### P REGQNT #### [facility] [address] [place] [address] Dr. Josie Sanchez HCG RANGE SEE BELOW Normal [facility] Comment on above: Result Comment: 5-50 0.2-1 WEEK 50-500 1-2 WEEKS 100-5,000 2-3 WEEKS 500-10,000 3-4 WEEKS 1,000-50,000 4-5 WEEKS 10,000-100,000 5-6 WEEKS 15,000-200,000 6-8 WEEKS 10,000-100,000 2-3 MONTHS Performed By: #### P REGQNT #### [facility] [address] [place] [address] Dr. Josie Sanchez CBC AUTO DIFFon 05-07-2022 BASO # 0.0 103/ul Normal 0.0-0.1 [facility] Comment on above: Performed By: #### RILEY VALERIO #### [facility] [address] [place] [address] Dr. Josie Sanchez Basophils/100 WBC (Bld) 0.2 % Normal 0.2-2.0 [facility] Comment on above: Performed By: #### KIAN VALERIORO #### [facility] [address] [place] [address] Dr. Josie Sanchez EO # 0.0 103/ul Normal 0.0-0.7 [facility] Comment on above: Performed By: #### KIAN VALERIORO #### [facility] [address] [place] [address] Dr. Josie Sanchez Eosinophils/100 WBC (Bld) 0.3 % Critically low 0.9-7. 0 [facility] Comment on above: Performed By: #### RILEY VALERIO #### [facility] [address] [place] [address] Dr. Josie Sanchez Erythrocyte distribution width (RBC) [Ratio] 12.8 % Normal 11.0-15.0 [facility] Comment on above: Performed By: #### KIAN VALERIORO #### [facility] [address] [place] [address] Dr. Josie Sanchez Hematocrit (Bld) [Volume fraction] 41.2 % Normal 36.0-48.0 [facility] Comment on above: Performed By: #### KIAN VALERIORO #### [facility] [address] [place] [address] Dr. Josie Sanchez Hemoglobin (Bld) [Mass/Vol] 13.3 g/dL Normal 12.0-16.0 [facility] Comment on above: Performed By: #### KIAN VALERIORO #### [facility] [address] [place] [address] Dr. Josie Sanchez IG # 0.02 10e3/ul Normal 0.00-0.03 [facility] Comment on above: Performed By: #### ROBERT VALERIOICRO #### [facility] [address] [place] [address] Dr. Josie Sanchez IG % 0.3 % Normal 0.0-0.5 [facility] Comment on above: Performed By: #### ROBERT VALERIOICRO #### [facility] [address] [place] [address] Dr. Josie Sanchez LYMPH # 1.0 103/ul Critically low 1.2-3.8 [facility] Comment on above: Performed By: #### Clyde MEANS UMICRO #### [facility] [address] [place] [address] Dr. Josie Sanchez Lymphocytes/100 WBC (Bld) 15.5 % Critically low 20.5-6 0.0 [facility] Comment on above: Performed By: #### Clyde MEANS UMICRO #### [facility] [address] [place] [address] Dr. Josie Sanchez MANUAL DIFF REQ NO Normal [facility] Comment on above: Performed By: #### Clyde MEANS UMICRO #### [facility] [address] [place] [address] Dr. Josie Sanhcez MCH (RBC) [Entitic mass] 28.9 pg Normal 26.7-34.0 [facility] Comment on above: Performed By: #### Clyde MEANS UMICRO #### [facility] [address] [place] [address] Dr. Josie Sanchez MCHC (RBC) [Mass/Vol] 32.3 g/dL Normal 29.9-35.2 [facility] Comment on above: Performed By: #### Clyde MEANS, UMICRO #### [facility] [address] [place] [address] Dr. Josie Sanchez MCV (RBC) [Entitic vol] 89.6 fL Normal 81.0-99.0 [facility] Comment on above: Performed By: #### KIAN VALERIORO #### [facility] [address] [place] [address] Dr. Josie Sanchez MONO # 0.4 103/ul Normal 0.3-0.8 [facility] Comment on above: Performed By: #### KIAN VALERIORO #### [facility] [address] [place] [address] Dr. oJsie Sanchez Monocytes/100 WBC (Bld) 6.2 % Normal 1.7-12.0 [facility] Comment on above: Performed By: #### KIAN VALERIORO #### [facility] [address] [place] [address] Dr. Josie Sanchez NEUT # 5.0 103/ul Normal 1.4-6.5 [facility] Comment on above: Performed By: #### RILEY VALERIO #### [facility] [address] [place] [address] Dr. Josie Sanchez Neutrophils/100 WBC (Bld) 77.5 % Critically high 43.0- 75.0 [facility] Comment on above: Performed By: #### RILEY VALERIO #### [facility] [address] [place] [address] Dr. Josie Sanchez Platelet mean volume (Bld) [Entitic vol] 10.2 fL Normal 9.5-13.5 [facility] Comment on above: Performed By: #### KIAN VALERIORO #### [facility] [address] [place] [address] Dr. Josie Sanchez PLT 237 103/ul Normal 150-450 [facility] Comment on above: Performed By: #### KIAN VALERIORO #### [facility] [address] [place] [address] Dr. Josie Sanchez RBC 4.60 106/ul Normal 4.20-5.40 [facility] Comment on above: Performed By: #### KIAN VALERIORO #### [facility] [address] [place] [address] Dr. Josie Sanchez WBC 6.5 103/ul Normal 4.0-11.0 [facility] Comment on above: Performed By: #### RILEY VALERIO #### [facility] [address] [place] [address] Dr. Josie Sanchez Covid-19 PCR ([facility])on 04-10 SARS-CoV-2 (COVID-19) RNA ALEXA+probe Ql (Unsp spec) Not detected Normal NOT DETECTED [facility] Comment on above: Result Comment: This test is not yet approved or cleared by the [place] FDA. When there are no FDA-approved or cleared tests available, and other criteria are met, FDA can make tests available under an emergency access mechanism called an Emergency Use Authorization (EUA). The EUA for this test is supported by the [employer] of Health and Human Service's (HHS's) declaration [...] SARS-CoV-2. Performed By: #### RILEY VALERIO #### [facility] [address] [address] [address] Josie Sanchez PREG QUANT HCGon 05-07-2022 HCG QUANT 2745 mIU/mL Normal [facility] Comment on above: Performed By: #### RILEY VALERIO #### [facility] [address] [place] [address] Dr. Josie Sanchez HCG RANGE SEE BELOW Normal [facility] Comment on above: Result Comment: 5-50 0.2-1 WEEK 50-500 1-2 WEEKS 100-5,000 2-3 WEEKS 500-10,000 3-4 WEEKS 1,000-50,000 4-5 WEEKS 10,000-100,000 5-6 WEEKS 15,000-200,000 6-8 WEEKS 10,000-100,000 2-3 MONTHS Performed By: #### RILEY VALERIO #### [facility] [address] [place] [address] Dr. Josie Sanchez US PREG TVon 05-05-2022 [...] PEREZ DURBIN Date: 2022-05-05 14:42 Normal [facility] ER URINE PROFILEon 2 Bilirubin Ql (U) Negative Normal NEGATIVE The [facility] Comment on above: Performed By: #### RILEY VALERIO #### [facility] [address] [place] [address] Dr. Josie Sanchez Clarity (U) CLEAR Normal CLEAR [facility] Comment on above: Performed By: #### RILEY VALERIO #### [facility] [address] [place] [address] Dr. Josie Sanchez Color (U) YELLOW Normal YELLOW [facility] Comment on above: Performed By: #### RILEY VALERIO #### [facility] [address] [place] [address] Dr. Josie WU A micrscopic examination will be performed if indicated. Normal [facility] Comment on above: Performed By: #### RILEY VALERIO #### [facility] [address] [place] [address] Dr. Josie Sanchez Glucose Ql (U) Negative Normal NEGATIVE [facility] Comment on above: Performed By: #### KIAN VALERIORO #### [facility] [address] [place] [address] Dr. Josie Sanchez Hemoglobin Ql (U) SMALL Abnormal NEGATIVE [facility] Comment on above: Performed By: #### KIAN VALERIORO #### [facility] [address] [place] [address] Dr. Josie Sanchez Ketones Ql (U) 15 mg/dl Abnormal NEGATIVE [facility] Comment on above: Performed By: #### KIAN VALERIORO #### [facility] [address] [place] [address] Dr. Josie Sanchez LEUKOCYTES Negative Normal NEGATIVE [facility] Comment on above: Performed By: #### KIAN VALERIORO #### [facility] [address] [place] [address] Dr. Josie Sanchez Nitrite Ql (U) Negative Normal NEGATIVE [facility] Comment on above: Performed By: #### KIAN VALERIORO #### [facility] [address] [place] [address] Dr. Josie Sanchez pH (U) 6.0 [pH] Normal 5-9 [facility] Comment on above: Performed By: #### KIAN VALERIORO #### [facility] [address] [place] [address] Dr. Josie Sanchez SPEC GRAVITY 1.020 Normal 1.005-<=1.02 5 [facility] Comment on above: Performed By: #### KIAN VALERIORO #### [facility] [address] [place] [address] Dr. Josie Sanchez UA PROTEIN Negative Normal NEGATIVE/ TRACE [facility] Comment on above: Performed By: #### KIAN VALERIORO #### [facility] [address] [place] [address] Dr. Josie Sanchez UR MICRO IND INDICATED Normal [facility] Comment on above: Performed By: #### E RUR, UMICRO #### [facility] [address] [place] [address] Dr. Josie Sanchez Urobilinogen Qn (U) 0.2 {Fabricio'U}/dL Normal 0.2 - 1. 0 [facility] Comment on above: Performed By: #### E RUR, UMICRO #### [facility] [address] [place] [address] Dr. Josie Sanchez URINE MICROSCOPIC ONLYon BACTERIA NONE SEEN Normal NONE SEEN [facility] Comment on above: Performed By: #### E RUR, UMICRO #### [facility] [address] [place] [address] Dr. Josie Sanchez Bacteria identified Cx Nom (U) NOT INDICATED Normal [facility] Comment on above: Performed By: #### E RUR, UMICRO #### [facility] [address] [place] [address] Dr. Josie Sanchez CAST NONE SEEN Normal NONE SEEN [facility] Comment on above: Performed By: #### E RUR, UMICRO #### [facility] [address] [place] [address] Dr. Josie Sanchez Crystals LM Nom (Urine sed) NONE SEEN Normal NONE SEEN [facility] Comment on above: Performed By: #### E RUR, UMICRO #### [facility] [address] [place] [address] Dr. Josie Sanchez Epithelial cells LM Ql (Urine sed) NONE SEEN Normal NONE SEEN /RARE [facility] Comment on above: Performed By: #### E RUR, UMICRO #### [facility] [address] [place] [address] Dr. Josie Sanchez MUCOUS MODERATE Abnormal NONE SEEN [facility] Comment on above: Performed By: #### E RUR, UMICRO #### [facility] [address] [place] [address] Dr. Josie Sanchez RBC 0-2 Normal 0-2 [facility] Comment on above: Performed By: #### E RUR, UMICRO #### [facility] [address] [address] [address] Josie Sanchez WBC NONE SEEN Normal NONE SEEN [facility] Comment on above: Performed By: #### Clyde MEANS, UMICRO #### [facility] [address] [place], [place] [address] Dr. Josie Sanchez PREG QUANT HCGon 04-20-2022 HCG QUANT 46807 mIU/mL Normal [facility] Comment on above: Performed By: #### Clyde MEANS, UMICRO #### [facility] [address] [address] [address] Josie Sanchez HCG RANGE SEE BELOW Normal [facility] Comment on above: Result Comment: 5-50 0.2-1 WEEK 50-500 1-2 WEEKS 100-5,000 2-3 WEEKS 500-10,000 3-4 WEEKS 1,000-50,000 4-5 WEEKS 10,000-100,000 5-6 WEEKS 15,000-200,000 6-8 WEEKS 10,000-100,000 2-3 MONTHS Performed By: #### Clyde MEANS, ICRO #### [facility] [address] [place] [address] Dr. Josie Sanchez HCG-BETA SUBUNIT QUANTon hCG,Beta Subunit,Qnt,Serum <1 Normal [facility] Comment on above: Result Comment: Fema le (Non-) 0 - 5 (Postmenopausal) 0 - 8 . Female () Weeks of Gestation 3 6 - 71 4 10 - 750 5 217 - 7138 6 158 - 65076 7 [phone] -[phone] 8 32664 -582121 9 02200 -254250 10 97215 -494657 12 14382 -698080 14 17052 - 33498 15 68638 - 95598 16 6050 - 84366 17 0835 - 06696 18 2447 - 90115 [place] ECLIA methodology Performed By: #### Clyde MEANS, UMICRO #### [facility] [address] [place] [address] Dr. Josie Sanchez CBC AUTO DIFFon 02-18-2022 BASO # 0.0 103/ul Normal 0.0-0.1 [facility] Comment on above: Performed By: #### C BC #### [facility] [address] [place] [address] Dr. Josie Sanchez Basophils/100 WBC (Bld) 0.2 % Normal 0.2-2.0 [facility] Comment on above: Performed By: #### C BC #### [facility] [address] [place] [address] Dr. Josie Sanchez EO # 0.1 103/ul Normal 0.0-0.7 [facility] Comment on above: Performed By: #### C BC #### [facility] [address] [place] [address] Dr. Josie Sanchez Eosinophils/100 WBC (Bld) 0.8 % Critically low 0.9-7. 0 [facility] Comment on above: Performed By: #### C BC #### [facility] [address] [place] [address] Dr. Josie Sanchez Erythrocyte distribution width (RBC) [Ratio] 12.5 % Normal 11.0-15.0 [facility] Comment on above: Performed By: #### C BC #### [facility] [address] [place] [address] Dr. Josie Sanchez Hematocrit (Bld) [Volume fraction] 39.5 % Normal 36.0-48.0 [facility] Comment on above: Performed By: #### C BC #### [facility] [address] [place] [address] Dr. Josie Sanchez Hemoglobin (Bld) [Mass/Vol] 13.0 g/dL Normal 12.0-16.0 [facility] Comment on above: Performed By: #### C BC #### [facility] [address] [place] [address] Dr. Josie Sanchez IG # 0.02 10e3/ul Normal 0.00-0.03 [facility] Comment on above: Performed By: #### C BC #### [facility] [address] [place] [address] Dr. Josie Sanchez IG % 0.3 % Normal 0.0-0.5 [facility] Comment on above: Performed By: #### C BC #### [facility] [address] [place] [address] Dr. Josie Sanchez LYMPH # 1.5 103/ul Normal 1.2-3.8 [facility] Comment on above: Performed By: #### C BC #### [facility] [address] [place] [address] Dr. Josie Sanchez Lymphocytes/100 WBC (Bld) 22.9 % Normal 20.5-60.0 [facility] Comment on above: Performed By: #### C BC #### [facility] [address] [place] [address] Dr. Josie Sanchez MANUAL DIFF REQ NO Normal [facility] Comment on above: Performed By: #### C BC #### [facility] [address] [place] [address] Dr. Josie Sanchez MCH (RBC) [Entitic mass] 30.3 pg Normal 26.7-34.0 [facility] Comment on above: Performed By: #### C BC #### [facility] [address] [place] [address] Dr. Josie Sanchez MCHC (RBC) [Mass/Vol] 32.9 g/dL Normal 29.9-35.2 [facility] Comment on above: Performed By: #### C BC #### [facility] [address] [place] [address] Dr. Josie Sanchez MCV (RBC) [Entitic vol] 92.1 fL Normal 81.0-99.0 [facility] Comment on above: Performed By: #### C BC #### [facility] [address] [place] [address] Dr. Josie Sanchez MONO # 0.4 103/ul Normal 0.3-0.8 [facility] Comment on above: Performed By: #### C BC #### [facility] [address] [place] [address] Dr. Josie Sanchez Monocytes/100 WBC (Bld) 5.7 % Normal 1.7-12.0 [facility] Comment on above: Performed By: #### C BC #### [facility] [address] [address] [address] Josie Sanchez NEUT # 4.6 103/ul Normal 1.4-6.5 [facility] Comment on above: Performed By: #### C BC #### [facility] [address] [address] [address] Josie Sanchez Neutrophils/100 WBC (Bld) 70.1 % Normal 43.0-75.0 [facility] Comment on above: Performed By: #### C BC #### [facility] [address] [place] [address] Dr. Josie Sanchez Platelet mean volume (Bld) [Entitic vol] 10.0 fL Normal 9.5-13.5 [facility] Comment on above: Performed By: #### C BC #### [facility] [address] [place] [address] Dr. Josie Sanchez PLT 242 103/ul Normal 150-450 [facility] Comment on above: Performed By: #### C BC #### [facility] [address] [place] [address] Dr. Josie Sanchez RBC 4.29 106/ul Normal 4.20-5.40 [facility] Comment on above: Performed By: #### C BC #### [facility] [address] [place] [address] Dr. Josie Sanchez WBC 6.5 103/ul Normal 4.0-11.0 [facility] [facility] Comment on above: Performed By: #### C BC #### [facility] [address] [place] [address] Dr. Josie Sanchez LIPID PROFILEon 02-18-2022 CHOL-HDL RATIO NORM SEE BELOW Normal [facility] Comment on above: Result Comment: 3.3 - 4.4 LOW RISK 4.4 - 7.1 AVERAGE RISK 7.1 - 11.0 MODERATE RISK >11.0 HIGH RISK Performed By: #### L IPID, TSH #### [facility] [address] [place] [address] Dr. Josie Sanchez Cholesterol [Mass/Vol] 182 mg/dL Normal <=200 [facility] Comment on above: Performed By: #### L IPID, TSH #### [facility] [address] [address] [address] Josie Sanchez Cholesterol in HDL [Mass/Vol] 40 mg/dL Normal 40-60 [facility] Comment on above: Performed By: #### L IPID, TSH #### [facility] [address] [address] [address] Josie Sanchez Cholesterol in LDL [Mass/Vol] 122.4 mg/dL Normal [facility] Comment on above: Performed By: #### L IPID, TSH #### [facility] [address] [place] [address] Dr. Josie Sanchez Cholesterol.total/Choleste rol in HDL [Mass ratio] 4.6 {ratio} Normal [facility] Comment on above: Performed By: #### L IPID, TSH #### [facility] [address] [place] [address] Dr. Josie Sanchez HDL NORMAL > or = 60 mg/dl - LOW CARDIOVASCULAR RISK <40 mg/dl - HIGH CARDIOVASCULAR RISK Normal [facility] Comment on above: Performed By: #### L IPID, TSH #### [facility] [address] [place] [address] Dr. Josei Sanchez LDL CALC NORMAL SEE BELOW Normal [facility] Comment on above: Result Comment: <100 mg/dl OPTIMAL 100 - 129 mg/dl NEAR OR ABOVE OPTIMAL 130 - 159 mg/dl BORDERLINE HIGH 160 - 189 mg/dl HIGH >190 mg/dl VERY HIGH Performed By: #### L IPID, TSH #### [facility] [address] [place] [address] Dr. Josie Sanchez Triglyceride [Mass/Vol] 98 mg/dL Normal <=150 T [facility] Comment on above: Performed By: #### L IPID, TSH #### [facility] [address] [place] [address] Dr. Josie Sanchez VLDL CALC 19.6 mg/dL Normal [facility] Comment on above: Performed By: #### L IPID, TSH #### [facility] [address] [place] [address] Dr. Josie Sanchez PROTIMEon 02-18-2022 INR Coag (PPP) [Relative time] 1.10 {INR} Normal [facility] Comment on above: Performed By: #### P REGQNT #### [facility] [address] [place] [address] Dr. Josie aSnchez INR GUIDELINES SEE BELOW Normal [facility] Comment on above: Result Comment: PAULINA RED INR: 2.0 - 3.0 CONDITIONS NOT LISTED BELOW 2.5 - 3.5 FOR PROSTHETIC HEART VALVE REPLACEMENT 2.5 - 3.5 RECURRENT THROMBOSIS Performed By: #### P REGQNT #### [facility] [address] [place] [address] Dr. Josie Sanchez PT Coag (PPP) [Time] 11.8 s Critically high 9.0-11.6 [facility] Comment on above: Performed By: #### P REGQNT #### [facility] [address] [place] [address] Dr. Josie Sanchez PTTon 02-18-2022 aPTT Coag (Bld) [Time] 29.8 s Normal 22.3-36.2 [facility] Comment on above: Performed By: #### P REGQNT #### [facility] [address] [place] [address] Dr. Josie Sanchez TSHon 02-18-2022 TSH 3.410 uIU/mL Normal 0.358-3.740 [facility] Comment on above: Performed By: #### L IPID, TSH #### [facility] [address] [place] [address] Dr. Josie Sanchez US PELVIS AND TRANSVAGon [...] by: PEREZ DURBIN Date: 2022-02-18 18:56 Normal [facility] Nursing Note - Woundon 08-15 Nursing Note - Wound [id number]#3.00CD:127 Normal [facility] Coding Summary.on 08-08-2020 Coding Summary. CODING [...] Jeannie Nur Date Saved: 08/08/2020 10:31 am [facility] Formson 08-08-2020 Forms [id number] 0459#1.00CD:127 [facility] Home Health Recordson 2019 Home Health Records [id number] 3EFD#1.00CD:127 [facility] Ambulatory Clinical Summaryo n 07-26-2020 Ambulatory Clinical Summary {[id number] -[id number] -[id number]}CD:61 4368 [facility] Home Health Recordson 2019 Home Health Records [id number]#1.00CD:127 [facility] Progress Note - Woundon 07-09 Progress Note - Wound [id number] 46239#2.00CD:127 [facility] Consent for Treatmenton 07-09 Consent for Treatment [id number] AFAA#1.00CD:127 [facility] Multi-Wound Charton 07-25-20 20 Multi-Wound Chart [id number]#1.00CD:127 [facility] Nursing Assessment - Woundon 07-25-2020 Nursing Assessment - Wound [id number] 7. [id number]#1.00CD:127 [facility] Physician Orderon 07-25-2020 Physician Order [id number]#1.00CD:127 [facility] Home Health Recordson 2019 Home Health Records [id number]#1.00CD:127 [facility] Health Recordson 2019 Home Health Records [id number] [id number]#1.00CD:127 [facility] Coding Summary.on 07-12-2020 Coding Summary. CODING [...] Bledsoe CphT Date Saved: 07/12/2020 03:05 pm [facility] Coding Summary. CODING DATE: 07/12/2020 FINAL [facility] STATUS: Home (Routine DC) PAYOR: Medicaid EA [...] Bledsoe CphT Date Saved: 07/12/2020 03:03 pm [facility] Multi-Wound Charton 07-12-20 20 Multi-Wound Chart [id number]#1.00CD:127 [facility] Nursing Assessment - Woundon 07-12-2020 Nursing Assessment - Wound [id number] 7. [id number]#1.00CD:127 [facility] Nursing Note - Woundon 07-12 Nursing Note - Wound [id number]#1.00CD:127 [facility] Consent for Procedure/Surger yon 07-11-2020 Consent for Procedure/Surgery [id number] 13338#1.00CD:127 [facility] Consent for Treatmenton Consent for Treatment [id number]#1.00CD:127 [facility] Home Health Recordson 2019 Home Health Records [id number]#1.00CD:127 [facility] Home Health Records [id number]#1.00CD:127 [facility] Physician Orderon 07-11-2020 Physician Order [id number]#1.00CD:127 [facility] Progress Note - Woundon Progress Note - Wound [id number]#1.00CD:127 [facility] Nursing Note - Woundon 07-02 Nursing Note - Wound [id number]#3.00CD:127 [facility] Consent for Procedure/Surger yon 06-28-2020 Consent for Procedure/Surgery [id number] 0200#1.00CD:127 [facility] Consent to Photographon 06-10 Consent to Photograph [id number]#1.00CD:127 [facility] HIPAA Privacy Documentson HIPAA Privacy Documents [id number] 0158#1.00CD:127 [facility] Nursing Note - Woundon 06-28 Nursing Note - Wound [id number]. [id number]#1.00CD:127 [facility] Nursing Note - Wound [id number]. [id number]#1.00CD:127 [facility] Consent for Treatmenton 06-09 Consent for Treatment [id number] EEDA#1.00CD:127 [facility] Multi-Wound Charton 06-27-20 20 Multi-Wound Chart [id number]#1.00CD:127 [facility] Nursing Assessment - Woundon 06-27-2020 Nursing Assessment - Wound [id number]#1.00CD:127 [facility] Physician Orderon 06-27-2020 Physician Order [id number]#2.00CD:127 [facility] Progress Note - Woundon 06-09 Progress Note - Wound [id number]#1.00CD:127 [facility] HIPAA Privacy Documentson HIPAA Privacy Documents [id number]#1.00CD:127 [facility] Outside Records Officeon Outside Records Office [id number]#1.00CD:127 [facility] Vital Signs Date Time Vital Sign Value Performing Clinician Facility 01-08-2025 10:41-0400 Body mass index (BMI) [Ratio] 31.01 kg/m2 [employer] DO Work Phone: [facility] 01-08-2025 10:41-0400 Body weight 72.03 kg Norbert Silvia DO Work Phone: [facility] 01-08-2025 10:41-0400 Diastolic blood pressure 68 mm[Hg] [employer] Silvia DO Work Phone: [facility] 01-08-2025 10:41-0400 Systolic blood pressure 112 mm[Hg] [employer] Silvia DO Work Phone: [facility] 12-26-2024 09:35-0400 Body mass index (BMI) [Ratio] 31.08 kg/m2 [employer] DO Work Phone: [facility] 12-26-2024 09:35-0400 Body weight 72.18 kg Norbert Silvia DO Work Phone: [facility] 12-26-2024 09:35-0400 Diastolic blood pressure 68 mm[Hg] Norbert Silvia DO Work Phone: [facility] 12-26-2024 09:35-0400 Systolic blood pressure 110 mm[Hg] Norbert Silvia DO Work Phone: [facility] 12-11-2024 08:39-0400 Body mass index (BMI) [Ratio] 31.93 kg/m2 Norbert Silvia DO Work Phone: [facility] 12-11-2024 08:39-0400 Body weight 74.16 kg Norbert Silvia DO Work Phone: [facility] 12-11-2024 08:39-0400 Diastolic blood pressure 80 mm[Hg] Norbert Silvia DO Work Phone: [facility] 12-11-2024 08:39-0400 Systolic blood pressure 110 mm[Hg] Norbert Silvia DO Work Phone: [facility] 11-27-2024 13:25-0400 Body mass index (BMI) [Ratio] 31.25 kg/m2 Norbert Silvia DO Work Phone: [facility] 11-27-2024 13:25-0400 Body weight 72.58 kg Norbert Silvia DO Work Phone: [facility] 11-27-2024 13:25-0400 Diastolic blood pressure 76 mm[Hg] Norbert Silvia DO Work Phone: [facility] 11-27-2024 13:25-0400 Systolic blood pressure 124 mm[Hg] Norbert Silvia DO Work Phone: [facility] 10-09-2024 10:01-0500 Body mass index (BMI) [Ratio] 31.52 kg/m2 Gen Kang MD Work Phone: [facility] 10-09-2024 10:01-0500 Body weight 73.21 kg Gen Kang MD Work Phone: [facility] 10-09-2024 10:01-0500 Diastolic blood pressure 83 mm[Hg] Gen Kang MD Work Phone: [facility] 10-09-2024 10:01-0500 Heart rate 89 /min Gen Kang MD Work Phone: [facility] 10-09-2024 10:01-0500 Systolic blood pressure 131 mm[Hg] Gen Kang MD Work Phone: [facility] 10-02-2024 14:30-0500 Body mass index (BMI) [Ratio] 31.52 kg/m2 Norbert Silvia DO Work Phone: [facility] 10-02-2024 14:30-0500 Body weight 73.21 kg Norbert Silvia DO Work Phone: [facility] 10-02-2024 14:30-0500 Diastolic blood pressure 78 mm[Hg] Norbert Silvia DO Work Phone: [facility] 10-02-2024 14:30-0500 Systolic blood pressure 130 mm[Hg] Norbert Silvia DO Work Phone: [facility] 09-04-2024 13:50-0500 Body mass index (BMI) [Ratio] 30.86 kg/m2 Norbert Silvia DO Work Phone: [facility] 09-04-2024 13:50-0500 Body weight 71.67 kg Norbert Silvia DO Work Phone: [facility] 09-04-2024 13:50-0500 Diastolic blood pressure 78 mm[Hg] Norbert Silvia DO Work Phone: [facility] 09-04-2024 13:50-0500 Systolic blood pressure 122 mm[Hg] Norbert Silvia DO Work Phone: [facility] 07-28-2024 11:10-0500 Body mass index (BMI) [Ratio] 31.09 kg/m2 Nom Nurse [facility] 07-28-2024 11:10-0500 Body weight 72.21 kg Nom Nurse [facility] 07-28-2024 11:10-0500 Diastolic blood pressure 91 mm[Hg] [facility] Nurse [facility] 07-28-2024 11:10-0500 Systolic blood pressure 122 mm[Hg] [facility] Nurse [facility] 11-20-2022 15:05-0400 Body height 152.4 cm Gloria Jackelyn Other [facility] [employer] Other 11-20-2022 15:05-0400 Body mass index (BMI) [Ratio] 11.72 kg/m2 Gloria Jackelyn Other [employer] Other 11-20-2022 15:05-0400 Body temperature 97.7 [degF] Gloria Jackelyn Other [employer] Other 11-20-2022 15:05-0400 Body weight 27.22 kg Gloria Jackelyn Other [employer] Other 11-20-2022 15:05-0400 Respiratory rate 18 /min Gloria Jackelyn Other [employer] Other 11-20-2022 15:05-0400 SaO2% (BldA) [Mass fraction] 97 % Gloria Jackelyn Other [employer] Other Encounters Encounter Date Encounter Type Care Provider Facility Start: 01-08-2025 End: 01-08-2025 Bamboo flowsheet [employer] DO Work Phone: [facility] Start: 01-08-2025 End: 01-08-2025 [employer] Norbert Silvia DO Work Phone: [facility] Start: 01-08-2025 End: 01-08-2025 ambulatory NORBERT SILVIA Not Available Start: 01-08-2025 End: 01-08-2025 Office outpatient visit 15 minutes Norbert Silvia DO Work Phone: [facility] Comment on above: Third trimester preg zenon; 34 weeks gestation of Start: 01-04-2025 End: 01-04-2025 Clinisync Result Encounter Norbert Silvia DO Work Phone: [facility] Unsolicited Start: 01-04-2025 End: 01-04-2025 Clinisync Result Encounter Norbert Silvia DO Work Phone: [facility] Unsolicited Start: 12-26-2024 End: 12-26-2024 Bamboo flowsheet Norbert [...] trimester Start: 11-07-2024 End: 11-07-2024 ambulatory NORBERT R. SILVIA [facility] Start: 10-30-2024 End: 10-30-2024 ambulatory NORBERT SILVIA Not Available Start: 10-30-2024 End: 10-30-2024 Bamboo flowsheet Norbert Silvia DO Work Phone: [facility] Start: 10-30-2024 End: 10-30-2024 Bamboo flowsheet Norbert Slivia DO Work Phone: [facility] Start: 10-09-2024 End: 10-09-2024 Office consultation new/estab patient 60 min Gen Kang MD Work Phone: [facility] Comment on above: Multigravida of adva nced maternal age in second trimester (Primary Dx) Start: 10-09-2024 End: 10-09-2024 Orders Only Sydni Kennedy RN [facility] Comment on above: Multigravida of adva nced maternal age in second trimester (Primary Dx); History of delivery affecting Start: 10-02-2024 End: 10-02-2024 ambulatory NORBERT SILVIA Not Available Start: 10-02-2024 End: 10-02-2024 Office [...] Start: 10-02-2024 End: 10-03-2024 External Result Encounter Norbert Silvia DO Work Phone: [facility] Unsolicited Start: 09-13-2024 End: 09-16-2024 Clinisync Result Encounter Norbert Silvia DO Work Phone: [facility] Unsolicited Start: 09-13-2024 End: 09-16-2024 Clinisync Result Encounter Norbert Silvia DO Work Phone: [facility] Unsolicited Start: 09-08-2024 End: 09-08-2024 Chart abstracting Gen Kang MD Work Phone: [facility] Start: 09-04-2024 End: 09-04-2024 Bamboo [...] Start: 07-31-2024 End: 07-31-2024 ambulatory Norbert Silvia Facility:[facility] Start: 07-31-2024 End: 07-31-2024 Clinisync Result [...] 06-19-2024 End: 06-19-2024 Clinisync Result Encounter Norbert Siliva DO Work Phone: [facility] Unsolicited [...] 11-20-2022 End: 11-20-2022 ambulatory Gloria Hayden Other [employer] Other Start: 11-20-2022 Office outpatient vi sit [...] preprocedural laboratory examination DR NORBERT VEGA . [facility] Start: 05-08-2022 End: 05-08-[address] NORBERT VEGA . Facility:[facility] Start: 05-07-2022 End: 05-08-[address] NORBERT VGEA . Facility:[facility] Start: 05-07-2022 End: 05-08-2022 Encounter [...] Date Procedure Procedure Detail Performing Clinician Start: 01-08-2025 Urnls dip stick/tabl et rgnt non-auto w/o micrscp Norbert Silvia DO Work Phone: Start: 01-04-2025 US OB BPP W NON-STRESS Norbert Silvia DO Work Phone: Start: 12-26-2024 Urnls dip stick/tabl et rgnt non-auto w/o micrscp Norbert Patelo DO Work Phone: Start: 12-21-2024 US OB GROWTH Norbert Patel o DO Work Phone: Start: 12-21-2024 US OB BPP W NON-STRESS Norbert Patelo DO Work Phone: Start: 12-11-2024 Urnls dip stick/tabl et rgnt non-auto w/o micrscp Norbert Patelo DO Work Phone: Start: 12-09-2024 [facility] UA (CLEAN/CATCH) MICROSCOPIC IF INDICATE Norbert Patelo DO Work Phone: Start: 11-30-2024 [facility] UA (CLEAN/CATCH) DUMPING MACHINE OPERATOR/MICRO IF IND. Norbert aPtelo DO Work Phone: Start: 11-27-2024 Urnls dip stick/tabl et rgnt non-auto w/o micrscp Norbert Patelo DO Work Phone: Start: 10-02-2024 RECURRENT VAGINITIS (HTRX) Norbert Patelo DO Work Phone: Start: 10-02-2024 Urnls dip stick/tabl et rgnt non-auto w/o micrscp Norbert Patelo DO Work Phone: Start: 09-13-2024 AFP, SERUM, OPEN SPI NA BIFIDA Norbert Patelo DO Work Phone: Start: 09-04-2024 Urnls dip stick/tabl et rgnt non-auto w/o micrscp Norbert Patelo DO Work Phone: Start: 07-31-2024 [facility] DRUG SCREEN RAPI D (URINE) Norbert Patelo DO Work Phone: Start: 07-28-2024 BOX TEST Norbert tabares DO Work Phone: Start: 07-28-2024 End: 07-28-2024 Urnls dip stick/tablet rgnt non-auto w/o micrscp Norbert Silvia DO Work Phone: Start: 06-27-2024 [facility] PREG QUANT HCG Core y Silvia DO Work Phone: Start: 06-21-2024 [facility] PREG QUANT HCG Core y Silvia DO Work Phone: Start: 06-19-2024 [facility] PREG QUANT HCG Core y Silvia DO Work Phone: Start: 09-20-2023 ALL CBC WITH AUTO DIFF Norbert Build[employer] DO Work Phone: Start: 12-21-2022 Microscopic observat ion [Identifier] in Cervix by Cyto stain Norbert Silvia DO Work Phone: H/O: section History of delivery affecting Sydni Kennedy RN Plan of Treatment Date Care Activity Detail Author Start: 12-22-2027 Screening for malign ant neoplasm of cervix [facility] Start: 10-09-2025 Adult BMI Screening Adult BMI Screen ing [facility] Start: 10-09-2025 Tobacco Screening Tobacco Screening [facility] Start: 10-09-2025 End: 10-09-2025 US MFM with or without consult US MFM with or without consult Imaging Routine Multigravida of advanced maternal age in second trimester History of delivery affecting Expected: 10/09/2025 (Approximate), Expires: 10/09/2025 [employer] Work Phone: Comment on above: Expected: 10/09/2025 (Approximate), Expires: 10/09/2025 Start: 04-09-2025 Influenza vaccination Influenz a Vaccine (Season Ended) [facility] Start: 01-15-2025 End: 01-15-2025 Patient encounter procedure 01/15/2025 10:00 AM EDT Routine [facility] [address] [place] [id number] Norbert Vega, DO [address] [place] [address] [facility] Start: 01-08-2025 End: 01-08-2025 Patient encounter procedure 01/08/2025 10:00 AM EDT Routine [facility] [address] [place] [phone] Norbert Vega, DO [address] [place] [address] [facility] Start: 12-26-2024 End: 12-26-2024 Patient encounter procedure 12/26/2024 9:00 AM EDT Routine [facility] [address] [place] [phone] Norbert Vega, DO [address] [place] [address] [facility] Start: 12-11-2024 End: 12-11-2024 Patient encounter procedure 12/11/2024 8:30 AM EDT Routine [facility] [address] [place] [id number] Norbert Vega, DO [address] [place] [address] [facility] Start: 12-11-2024 End: 12-11-2024 Professional / ancillary services management 12/11/2024 8:00 AM EDT Ancillary Procedure [facility] [address] [place] [phone] [facility] Start: 11-27-2024 End: 05-29-2025 US biophysical profile w non stress test US biophysical profile w non stress test Imaging Routine Multigravida of advanced maternal age in third trimester Expected: 11/27/2024 (Approximate), Expires: 05/29/2025 [facility] Work Phone: Comment on above: Expected: 11/27/2024 (Approximate), Expires: 05/29/2025 Start: 11-27-2024 End: 03-29-2025 US for US OB follow up transabdominal approach Imaging Routine Multigravida of advanced maternal age in third trimester Expected: 11/27/2024, Expires: 03/29/2025 [facility] Comment on above: Expected: 11/27/2024 , Expires: 03/29/2025 Start: 11-13-2024 End: 11-13-2024 Patient encounter procedure 11/13/2024 2:00 PM EDT Office Visit [facility] [address] [place] [phone] Norbert Vega, [address] [place] [address] [facility] Start: 11-07-2024 End: 11-07-2024 Patient encounter procedure 11/07/2024 10:00 AM EDT Appointment [facility] [address] [facility] [place] [address] [facility] Start: 10-30-2024 End: 10-30-2024 Patient encounter procedure [facility] Comment on above: Anemia during pregna ncy in second trimester Start: 10-09-2024 End: 10-09-2024 Patient encounter procedure [facility] US Imaging Start: 10-02-2024 End: 10-02-2024 Patient encounter procedure 10/02/2024 2:10 PM EST Routine [facility] [address] [place] [phone] Norbert Vega, DO [address] [place] [address] [facility] Start: 10-02-2024 End: 10-02-2025 CBC panel - Blood by Automated count CBC Lab Routine Diabetes mellitus screening Expected: 10/02/2024 (Approximate), Expires: 10/02/2025 [facility] Work Phone: Comment on above: Expected: 10/02/2024 (Approximate), Expires: 10/02/2025 Start: 10-02-2024 End: 10-02-2025 Measurement of glucose 1 hour after glucose challenge for glucose tolerance test Glucose tolerance, 1 hour Lab Routine Diabetes mellitus screening Expected: 10/02/2024 (Approximate), Expires: 10/02/2025 [facility] Comment on above: Expected: 10/02/2024 (Approximate), Expires: 10/02/2025 Start: 09-04-2024 End: 10-05-2024 Alpha fetoprotein, maternal Alpha fetoprotein, maternal Lab Routine Need for maternal serum alpha-protein (MSAFP) screening Expected: 09/04/2024 (Approximate), Expires: 10/05/2024 [facility] Work Phone: Comment on above: Expected: 09/04/2024 (Approximate), Expires: 10/05/2024 Start: 09-04-2024 End: 09-04-2024 Patient encounter procedure [facility] Comment on above: Arrived Start: 07-28-2024 End: 07-28-2025 ABO/Rh ABO/Rh Lab Routine Missed menses , unspecified gestational age Expected: 07/28/2024 (Approximate), Expires: 07/28/2025 [facility] Comment on above: Expected: 07/28/2024 (Approximate), Expires: 07/28/2025 Start: 07-28-2024 End: 07-28-2025 Blood type and Indirect antibody screen panel - Blood Type and screen Lab Routine Missed menses , unspecified gestational age Expected: 07/28/2024 (Approximate), Expires: 07/28/2025 [facility] Work Phone: Comment on above: Expected: 07/28/2024 (Approximate), Expires: 07/28/2025 Start: 07-28-2024 End: 07-28-2025 Drugs of abuse panel - Urine by Screen method Rapid drug screen, urine Lab Routine , unspecified gestational age Encounter for supervision of normal first in first trimester Expected: 07/28/2024 (Approximate), Expires: 07/28/2025 [facility] Comment on above: Expected: 07/28/2024 (Approximate), Expires: 07/28/2025 Start: 07-28-2024 End: 07-28-2025 US Pelvis transvaginal US OB transvaginal Imaging Routine Missed menses Expected: 07/28/2024 (Approximate), Expires: 07/28/2025 [facility] Comment on above: Expected: 07/28/2024 (Approximate), Expires: 07/28/2025 Start: 07-28-2024 End: 07-28-2024 ambulatory 07/28/2024 10:30 AM EST Initial [facility] [address] [place] [address] [facility] Start: 04-09-2024 Influenza vaccination Influenza Vacc ine [facility] Start: 2006 Screening for malign ant neoplasm of cervix Pap Smear [facility] Start: 2004 DTaP,Tdap and Td Vaccines (1 - Tdap) DTaP,Tdap and Td Vaccines (1 - Tdap) [facility] Start: 10-30-2003 Adult BMI Screening Adult BMI Screen ing [facility] Start: 1997 Depression Screening Depression Scre ening [facility] Start: 1997 Tobacco Screening Tobacco Screening [facility] Bacteria identified in Urine by Culture Urine culture Microbiology Routine Missed menses Ordered: 07/28/2024 [facility] Comment on above: Ordered: 07/28/2024 CBC W Auto Different ial panel - Blood CBC and differential Lab Routine Missed menses , unspecified gestational age Ordered: 07/28/2024 [facility] Comment on above: Ordered: 07/28/2024 CHLAMYDIA TRACHOMATI S (GENITO/STI) CHLAMYDIA TRACHOMATIS (GENITO/STI) Lab Routine , unspecified gestational age Ordered: 10/02/2024 [facility] Comment on above: Ordered: 10/02/2024 Hemoglobin A1c/Hemoglobin.total in Blood Hemoglobin A1c Lab Routine Missed menses , unspecified gestational age Ordered: 07/28/2024 [facility] Comment on above: Ordered: 07/28/2024 Hepatitis B virus surface Ag [Presence] in Serum or Plasma by Immunoassay Hepatitis B surface antigen Lab Routine Missed menses , unspecified gestational age Ordered: 07/28/2024 [facility] Comment on above: Ordered: 07/28/2024 Hepatitis C virus Ab [Presence] in Serum or Plasma by Immunoassay Hepatitis C antibody Lab Routine Missed menses , unspecified gestational age Ordered: 07/28/2024 [facility] Comment on above: Ordered: 07/28/2024 HIV-1/HIV-2 antigen/antibody combination immunoassay HIV-1 and HIV-2 antibodies Lab Routine Missed menses , unspecified gestational age Ordered: 07/28/2024 [facility] Comment on above: Ordered: 07/28/2024 Neisseria gonorrhoea e DNA [Presence] in Unspecified specimen by ALEXA with probe detection Neisseria gonorrhea DNA probe, direct Lab Routine , unspecified gestational age Ordered: 10/02/2024 [facility] Comment on above: Ordered: 10/02/2024 Reagin Ab [Presence] in Serum by RPR RPR Lab Routine Missed menses , unspecified gestational age Ordered: 07/28/2024 [facility] Comment on above: Ordered: 07/28/2024 Rubella antibody, IgG Rubella an tibody, IgG Lab Routine Missed menses , unspecified gestational age Ordered: 07/28/2024 [facility] Comment on above: Ordered: 07/28/2024 SURESWAB(R) ADVANCED VAGINITIS PLUS, TMA SURESWAB(R) ADVANCED VAGINITIS PLUS, TMA Pathology and Cytology Routine , unspecified gestational age Ordered: 10/02/2024 [facility] Comment on above: Ordered: 10/02/2024 Payers Date Payer Category Payer Medicaid [id number] 2022 Medicaid [id number] 2. [id number] 1985 Unknown [id number] 2.16.84 0.1.419669.3.579.2.593 1985 Unknown [id number] 2.16.84 0.1.710536.3.579.2.593 1985 Unknown [id number] 2.16.84 0.1.510871.3.579.2.593 1985 Unknown [id number] 2.16.84 0.1.110497.3.579.2.593 1985 Unknown [id number] 2.16.84 0.1.052967.3.579.2.593 1985 Unknown [id number] 2.16.84 0.1.205912.3.579.2.593 1985 Unknown [id number] 2.16.84 0.1.263600.3.579.2.593 1985 Unknown [id number] 2.16.84 0.1.288447.3.579.2.593 1985 Unknown [id number] 2.16.84 0.1.534229.3.579.2.593 1985 Unknown [id number] 2.16.84 0.1.207794.3.579.2.593 1985 Unknown [id number] 2.16.84 0.1.181792.3.579.2.593 1985 Unknown [id number] 2.16.84 0.1.551484.3.579.2.593 1985 Unknown [id number] 2.16.84 0.1.395058.3.579.2.593 1985 Unknown [id number] 2.16.84 0.1.540525.3.579.2.593 1985 Unknown [id number] 2.16.84 0.1.566163.3.579.2.593 1985 Unknown [id number] 2.16.84 0.1.093379.3.579.2.593 1985 Unknown [id number] 2.16.84 0.1.148565.3.579.2.593 1985 Unknown [id number] 2.16.84 0.1.125066.3.579.2.593 1985 Unknown [id number] 2.16.84 0.1.471782.3.579.2.593 1985 Unknown [id number] 2.16.84 0.1.822913.3.579.2.593 1985 Unknown [id number] 2.16. 840.1.378068.3.579.2.1286 1985 Unknown [id number] 2.16. 840.1.779659.3.579.2.1286 1985 Unknown [id number] 2.16. 840.1.850327.3.579.2.1286 1985 Unknown [id number] 2.16.84 0.1.574383.3.579.2.1259 1985 Unknown [id number] 2.16.84 0.1.640753.3.579.2.1259 1985 Unknown [id number] 2.16.84 0.1.341350.3.579.2.1259 1985 Unknown [id number] 2.16.84 0.1.617516.3.579.2.1259 1985 Unknown [id number] 2.16.84 0.1.790933.3.579.2.1259 1985 Unknown [id number] 2.16.84 0.1.881725.3.579.2.1259 1985 Unknown [id number] 2.16.84 0.1.964961.3.579.2.1259 1985 Unknown [id number] 2.16.84 0.1.280350.3.579.2.1259 1985 Unknown [id number] 2.16.84 0.1.054060.3.579.2.1259 1959 Self-pay 1959 Unknown [id number] Unknown [id number] 2.16.8 40.1.628278.3.579.2.531 Social History Date Type Detail Facility Unknown if ever smoked [facility] Other Start: 12-21-2022 End: 07-28-2024 Sex Assigned At [facility] Other Start: 12-21-2022 End: 10-09-2024 Tobacco smoking status NHIS Never smoked tobacco [facility] Start: 12-21-2022 End: 10-09-2024 Tobacco use and exposure Smokeless tobacco non-user [facility] Start: 08-23-2023 End: 01-08-2025 Alcohol intake Current drinker of alcohol (finding) [facility] Start: 12-21-2022 End: 07-28-2024 History of [address] [facility] Start: 01-14-2023 Alcohol Comment caffeine intake: occasionally [facility] Start: 1985 Sex Assigned At Not on file [facility] Start: 05-27-2024 [facility] Start: 09-08-2024 End: 10-09-2024 Alcoholic beverage intake Ex-drinker (finding) [facility] Childcare Unknown [facility] Start: 10-20-2018 Alcohol Comment occassionally [facility] Start: 03-14-2015 Sex Female (finding) [facility] Clinical Notes 05-08-2022 to 01-08-2025 Rosette Short LPN - 01/08/2025 10:10 AM Lowell Calderon LPN - 12/26/2024 9:00 AM Collin Burns NP - 12/11/2024 8:30 AM Nubia Short LPN - 11/27/2024 1:10 PM EDT Note Date & Type Note Facility 01-08-2025 History of Present illness Narrative Reason for [...] Ambulatory Problems Diagnosis Date Noted Anxiety, generalized ([facility]) 01/15/2023 Resolved Ambulatory Problems Diagnosis Date Noted No Resolved Ambulatory Problems Past Medical History: Diagnosis Date Abnormal uterine bleeding Depression ([facility]) Dysmenorrhea History of History of D&C Hx of tubal ligation Miscarriage HISTORY PAST MEDICAL HISTORY SOCIAL HISTORY Past Medical History: Diagnosis Date Abnormal uterine bleeding Depression ([facility]) Dysmenorrhea History of x4 History of [...] LOW TRANSVERSE x4 PAP SMEAR 06/18/2021 negative CO DILATION & CURETTAGE DX&/THER NONOBSTETRIC TONSILLECTOMY TUBAL [...] nursing note reviewed. Exam conducted with a machine oiler present. Vitals: Estimated body mass index is 31.01 kg/m as calculated from the following: Height [...] by Rosette Short LPN... on behalf of: Norbert Vega DO documented in this encounter [facility] 12-26-2024 History of Present illness Narrative Reason [...] Ambulatory Problems Diagnosis Date Noted Anxiety, generalized ([facility]) 01/15/2023 Resolved Ambulatory Problems Diagnosis Date Noted No Resolved Ambulatory Problems Past Medical History: Diagnosis Date Abnormal uterine bleeding Depression ([facility]) Dysmenorrhea History of History of D&C Hx of tubal ligation Miscarriage HISTORY PAST MEDICAL HISTORY SOCIAL HISTORY Past Medical History: Diagnosis Date Abnormal uterine bleeding Depression ([facility]) Dysmenorrhea History of x4 History of [...] LOW TRANSVERSE x4 PAP SMEAR 06/18/2021 negative CO DILATION & CURETTAGE DX&/THER NONOBSTETRIC TONSILLECTOMY TUBAL [...] nursing note reviewed. Exam conducted with a machine oiler present. Vitals: Estimated body mass index is [...] Norbert Vega DO documented in this encounter [facility] 12-11-2024 History of Present illness Narrative [...] Ambulatory Problems Diagnosis Date Noted Anxiety, generalized ([facility]) 01/15/2023 Resolved Ambulatory Problems Diagnosis Date Noted No Resolved Ambulatory Problems Past Medical History: Diagnosis Date Abnormal uterine bleeding Depression ([facility]) Dysmenorrhea History of History of D&C Hx of tubal ligation Miscarriage HISTORY PAST MEDICAL HISTORY SOCIAL HISTORY Past Medical History: Diagnosis Date Abnormal uterine bleeding Depression ([facility]) Dysmenorrhea History of x4 History of [...] LOW TRANSVERSE x4 PAP SMEAR 06/18/2021 negative CO DILATION & CURETTAGE DX&/THER NONOBSTETRIC TONSILLECTOMY TUBAL [...] nursing note reviewed. Exam conducted with a machine oiler present. Vitals: Estimated body mass index is [...] She presented to the OB Floor at [facility] and was monitored and then evaluated in the ED and hydrated and placed on Clindamycin. She is feeling much improved and without urinary symptoms. Documented by Samara Burns NP on behalf of: Norbert Vega DO documented in this encounter [facility] 11-27-2024 History of Present illness Narrative [...] Ambulatory Problems Diagnosis Date Noted Anxiety, generalized ([facility]) 01/15/2023 Resolved Ambulatory Problems Diagnosis Date Noted No Resolved Ambulatory Problems Past Medical History: Diagnosis Date Abnormal uterine bleeding Depression ([facility]) Dysmenorrhea History of History of D&C Hx of tubal ligation Miscarriage HISTORY PAST MEDICAL HISTORY SOCIAL HISTORY Past Medical History: Diagnosis Date Abnormal uterine bleeding Depression ([facility]) Dysmenorrhea History of x4 History of [...] LOW TRANSVERSE x4 PAP SMEAR 06/18/2021 negative CO DILATION & CURETTAGE DX&/THER NONOBSTETRIC TONSILLECTOMY TUBAL [...] nursing note reviewed. Exam conducted with a machine oiler present. Vitals: Estimated body mass index is [...] Norbert Vega DO documented in this encounter [facility] 10-09-2024 History of Present illness Narrative [...] Yes Have you been seen here at [facility] in a previous ? No Recent ER visits or hospitalizations? No Bring blood sugar log or meter with you today? (Please bring them with you for every visit at [facility]) N/A Flu vaccine (Jun-October)? No Any [...] Diagnosis Major depressive disorder, single episode, mild ([facility]) Multigravida of advanced maternal age in second [...] in the morning., Disp: , Rfl: omega 8-tcx-jey-fish oil (Fish OiL) 300-1,000 mg capsule, Take [...] and the other consultants, we search on [employer] and all the available care everywhere epic I did review all the imaging studies of the patient available on EMR, ordered by the primary care physician and the other financial operations consultant HABITS: Patient activity no restrictions, diet [...] Follow-up in 4 weeks at our remote [place] office for completion of targeted anatomy. 3. Patient is low risk and can be delivered at 39 weeks gestation via repeat at her local hospital. 4. Growth ultrasound between 34-36 weeks gestation at her OB office. 5. Patient understands increased risk of uterine dehiscence due to multiple C-sections. DISPOSITION: At this point the patient is in complete care of her flat examiner. Patient does have 1 more ultrasound scheduled with us. Thank you for allowing me to participate in Jannie Antonio . If there any questions please do not hesitate to contact us. Sincerely, GEN KANG MD [facility] History of Present illness Narrative Reason [...] LOW TRANSVERSE x4 PAP SMEAR 06/18/2021 negative CO DILATION & CURETTAGE DX&/THER NONOBSTETRIC TONSILLECTOMY TUBAL [...] nursing note reviewed. Exam conducted with a machine oiler present. Vitals: Estimated body mass index is [...] Norbert Vega DO documented in this encounter [facility] 09-04-2024 History of Present illness Narrative [...] LOW TRANSVERSE x4 PAP SMEAR 06/18/2021 negative CO DILATION & CURETTAGE DX&/THER NONOBSTETRIC TONSILLECTOMY TUBAL [...] or undercooked meat, and stay away from [facility]. Patient has been consulted regarding any further do's and don'ts of . Patient voiced understanding and all questions and concerns were answered. Discussed with patient taken Aspirin 81mg daily and referral to [facility] for level II ultrasound. Orders Placed This Encounter Procedures US OB 14+ weeks anatomy scan Alpha fetoprotein, maternal POCT urinalysis dipstick manually resulted Follow Up: Patient is to return in 4 weeks for routine OB appointment. Documented by Rosette Short LPN on behalf of: Norbert Vega DO documented in this encounter [facility] 07-28-2024 History of Present illness Narrative [...] LOW TRANSVERSE x4 PAP SMEAR 06/18/2021 negative CO DILATION & CURETTAGE DX&/THER NONOBSTETRIC TONSILLECTOMY TUBAL [...] or undercooked meat, and stay away from [facility]. Patient has also been advised to not [...] Gemma Dumont LPN documented in this encounter [facility] 11-20-2022 Evaluation note Encounter Date Diagnosis [...] Contact dermatitis home care material was printed [facility] 09-30-2022 NoteEXAMINATION: US PELVIS HISTORY: Surgical procedure COMPARISON: No relevant comparison available. FINDINGS: The uterus is mildly heterogeneous in echotexture normal in size. Small amount of hypoechoic echogenicity identified within the endometrial cavity measuring 4.8 mm. Color ultrasound was not obtained IMPRESSION: Hypoechogenic endometrial cavity measuring 4.8 mm Electronically authenticated by: PEREZ DURBIN Date: 2022-05-08 18:03[facility]09-30-2022 NoteOPERATIVE NOTE OPERATION DATE: 05/08/2022 PROCEDURE: Suction D AND C. PREOPERATIVE DIAGNOSIS: 1. Suspected molar during first trimester. 2. Uterine mass approximately 4.5 cm. POSTOPERATIVE DIAGNOSIS: 1. Suspected molar during first trimester. 2. Uterine mass approximately 4.5 cm. 3. Significant large amounts of retained products. SURGEON: Norbert Vega D.O. ZINC CHLORIDE OPERATOR: None. BLOOD LOSS: 100 mL. URINE [...] products of conception were removed using a 9-Hong Konger suction curette tip. Excellent hemostasis was noted. The patient tolerated the procedure well. Sponge, lap, and needle counts were correct x 2. All instruments were then removed from the patient's vagina. The patient was taken to the Recovery Room in stable condition. [facility] Missed menses , unspecified gestational age Encounter for supervision of normal first in first trimester [facility] Diagnosis Second trimester state, incidental 16 weeks gestation of Need for maternal serum alpha-protein (MSAFP) screening Screening, , for anatomic survey Encounter for anatomic survey [facility] Diagnosis 20 weeks gestation of Second trimester state, incidental Diabetes mellitus screening Screening for diabetes mellitus , unspecified gestational age [facility]* Diagnosis Multigravida of advanced maternal age in second trimester- Primary [facility] Diagnosis Multigravida of advanced maternal age in second trimester- Primary History of delivery affecting [facility] Diagnosis Third trimester state, incidental 28 weeks gestation of Multigravida of advanced maternal age in third trimester Anemia during in second trimester [facility] Diagnosis Third trimester state, incidental 30 weeks gestation of [facility]* Diagnosis 32 weeks gestation of Third trimester state, incidental [facility] Diagnosis Third trimester state, incidental 34 weeks gestation of [facility] N[facility] - Reported* Type Description Date Medical History Hypercholesterolemia Medical History Hormone imbalance Medical History Vitamin D deficiency Medical History Iron deficiency Surgical History C section Surgical History oral surgery Surgical History tonsillectomy and adenoidectomy Surgical History D&C 2021 Hospitalization History child [facility] Other InstructionsNot on filedocumented in this encounter [facility] this [facility] on filedocumented in this encounter [facility] Summary Purpose Family History No Family [...] section and content) DATE CREATED AUTHOR 08/15/2020 [facility] DATE CREATED AUTHOR AUTHOR'S ORGANIZ ATION 12/22/2022 [facility] DATE CREATED AUTHOR AUTHOR'S ORGANIZ ATION 08/03/2024 [facility] DATE CREATED AUTHOR AUTHOR'S ORGANIZ ATION 10/10/2024 [facility] DATE CREATED AUTHOR AUTHOR'S ORGANIZ ATION 11/08/2024 [facility] DATE CREATED AUTHOR AUTHOR'S ORGANIZ ATION 01/08/2025 [facility] dical Specialists EPIC REASON FOR VISIT (unrecogniz ed section and content) Reason Comments Amenorrhea Reason Comments Routine Visit Reason Comments Advanced Maternal Age Hx C/S x4 Hx Tubal Ligation Care Teams (unrecognized sec tion and content) Client Partner Relationship Specialty Start Date End Date Quoc Watts MD [address] [place] [address] PCP - General Family Medicine 12/28/22 Client Partner Relationship Specialty Start Date End Date Quoc Watts MD [address] [place] [address] PCP - General Family Medicine 12/28/22 Client Partner Relationship Specialty Start Date End Date Quoc Watts MD [address] [place] [facility] [place] [address] PCP - General Family Medicine 12/28/22 Client Partner Relationship Specialty Start Date End Date Quoc Watts MD [address] [place] [facility] [place] [address] PCP - General Family Medicine 12/28/22 Client Partner Relationship Specialty Start Date End Date Quoc Watts MD [address] [place] [facility] [place] [address] PCP - General Family Medicine 12/28/22 Client Partner Relationship Specialty Start Date End Date Quoc Watts MD [address] [place] [facility] [place] [address] PCP - General Family Medicine 12/28/22 Client Partner Relationship Specialty Start Date End Date Quoc Watts MD [address] [place] [facility] [place] [address] PCP - General Family Medicine 12/28/22 Client Partner Relationship Specialty Start Date End Date Quoc Watts MD PCP - General 04/04/18 Client Partner Relationship Specialty Start Date End Date Quoc Watts MD [address] [place] [facility] [place] [address] PCP - General Family Medicine 12/28/22 Client Partner Relationship Specialty Start Date End Date Quoc Watts MD [address] [place] [facility] [place] [address] PCP - General Family Medicine 12/28/22 Client Partner Relationship Specialty Start Date End Date Quoc Watts MD [address] [place] [address] PCP - General Family [facility] 12/28/22 Client Partner Relationship Specialty Start Date End Date Quoc Watts MD PCP - General 04/04/18 Client Partner Relationship Specialty Start Date End Date Quoc Watts MD PCP General 04/04/18 Client Partner Relationship Specialty Start Date End Date Quoc Watts MD [address] [place] [address] PCP - [facility] 12/28/22 Client Partner Relationship Specialty Start Date End Date Quoc Watts MD [address] [place] [address] PCP - [facility] 12/28/22 Client Partner Relationship Specialty Start Date End Date Quoc Watts MD [address] [place] [address] PCP - General Family Medicine 12/28/22 Client Partner Relationship Specialty Start Date End Date Quoc [...] BE BASED ON THE PRIMARY CLINICAL RECORDS. [employer] [facility]. provides no warranty or guarantee of the accuracy or completeness of information in this document.
[2025-01-15 11:31] VITALS: BP 116/76; PULSE 104
== END 2025-01-15 11:50 | disposition home or self-care (01) ==
LOC: FBCO 08:07 → FBC 11:25
PROVIDERS: PCP Family Medicine; Visit Provider Obstetrics & Gynecology
DX: O09.523 Supervision of elderly multigravida, third trimester (principal)
CPT/HCPCS: 59025

== ENCOUNTER 2025-01-18 09:11 | Outpatient (OUT) | payer MEDICAID, SELFPAY ==
--- OUTSIDE RECORDS SUMMARY | 2023-11-22 10:24 | XMS_ITS | Continuity of Care Document ---
Author Organization [facility] Address [address] [place] [address] Phone Care Team Providers Care Hr Shared Services Consultant Name Role Phone Macario Pichardo DMD Unavailable Unavailable Allergies, Adverse Reactions, Alerts Substance Reaction Status Criticality Penicillins Abdominal discomfort Active No Info rmation Medications Medication Instructions Dosage Effective Dates (start - stop) Status Comments metformin 500 mg/5 mL oral solution take 10 milliliter by oral route 2 times every day with meals 1000 MG - Active clindamycin HCl 300 mg capsule take 1 capsule by oral route every 8 hours 300 MG - No Longer Active Procedures Procedure Date Bitewig-single Film Panoramic Film Intraoral-periapical 1st Film Oral Hygiene Instruction Limited Oral Eval Advance Directives Directive Yes / No Effective Date File Name No Information Encounters Encounter Description Practice Location Reason(s) For Visit Diagnoses Date Provider Providers Copied on Encounter [facility], [address] [place] [address], [id number], [place] tel:[phone] Dental Clinic er (chief complaint) Body mass index [BMI] 33.0-33.9, adultEncounter for screening for dental disorders Kylee Sorto. [address] [place] [address], [id number] , [place]. tel:[phone] Family History Family Member Type Diagnosis Age At Onset No Information Payers Payer name Insurance type Covered libertarian ID Authoriza tion(s) D Medicaid [facility] [id number] Social History Type Description Quantity Date Captured Comments Alcohol Use Details Unknown Caffeine Use Details Unknown Tobacco Use Status No Information Smoking Status No Information Sex Female Sexual Orientation Straight or heterosexual Gender Identity Female Vital Signs Date / Time: Height Weight BMI Pulse Rate Blood Pressure Temperature Respiratory Rate Body Surface Area Head Circumference Head Circ. Percentile Wt./Durga. Percentile BMI percentile Pulse Ox Inhaled Ox 3:17 PM 60.00 in 78.471 kg (173.00 lbs) 33.7 9 kg/m eter (2) 85 /min 144/90 mm[Hg] Chief Complaint And Reason For Visit From encounter dated '11/22/2023 14:24'. er (chief complaint). Description: er Reason For Referral Reason For Referral No Information Plan Of Treatment Date Type Action Status Goal Influenza vaccine. Due on Ap due Goal Tdap. Due on due Goal PRAPARE ASSESSMENT. Due on A due Goal Hep A. Due on du e Goal Hepatitis C screening. Due o n due Goal Unhealthy drug use screening . Due on due Goal HPV. Due on due Goal RLP. Due on due Goal Depression screening. Due on due Goal Tdap Vaccine. Due on 2023 due Goal Dietary management education , guidance, and counseling completed History Of Present Illness Encounter Date Complaint History Of Prese nt Illness er er Functional Status Date Functional Assessmen t No Information Instructions Date Instruction Additional Infor mation Giving encouragement to exercise Related to Body mass index [BMI] 33.0-33.9, adult Dietary management e ducation, guidance, and counseling Related to Body mass index [BMI] 33.0-33.9, adult Assessments Type Assessment Date assessment Body mass index [BMI] 33.0-33.9, adult Patient Care Teams Name Effective Dates (start - stop) Status Members No Information
--- OUTSIDE RECORDS SUMMARY | 2025-01-08 10:10 | XMS_ITS | Encounter Summary ---
Author Organization [facility] Address [address] [place] [address] Care Team Providers Care Manager Business Development Hospice Name Role Phone Darshan Watts MD Primary Care Provider [phone] Reason for Visit * Reason Comments Routine Visit Encounter Details Date Type Department Care Team (Late st Contact Info) Description 01/08/2025 10:10 AM EDT Routine [facility] [address] [place] [phone] Kannan Vega, DO [address] [facility] [address] [place] [id number] Third trimester ([facility]); 34 weeks gestation of ([facility]) Social History Tobacco Use Types Packs/Day Years [...] documented in this encounter Progress Notes * Rosette Short LPN - 01/08/2025 10:10 AM EDT Reason for Appointment: Patient ID: [...] LOW TRANSVERSE x4 PAP SMEAR 06/18/2021 negative SC DILATION & CURETTAGE DX&/THER NONOBSTETRIC TONSILLECTOMY TUBAL [...] nursing note reviewed. Exam conducted with a head boys tennis coach present. Vitals: Estimated body mass index is 31.01 kg/m?? as calculated from the following: Height as of 03/01/23: 5'. Weight as of this encounter: 158 lb 12.8 oz. BP: 112/68 Patient's last menstrual period was 05/13/2024. ASSESSMENT & PLAN ICD-10-CM 1. Third trimester Z34.93 POCT urinalysis dipstick manually resulted 2. 34 weeks gestation of Z3A.34 POCT urinalysis dipstick manually resulted Patient presents today for a routine obstetrics appointment. Patient is currently 34w2d with a Estimated Date of Delivery: 02/17/25. Patient to return to clinic in 1 weeks for routine OB appointment. Patient will reach out to office with any concerns. Documented by Rosette Short LPN... on behalf of: Kannan Vega DO documented in this encounter Plan of Treatment Upcoming Encounters Date Type Department Care Team ([facility] st Contact Info) Description 01/22/2025 10:30 AM EDT Routine [facility] [address] [facility] [place] [address] Kannan Vega, DO [address] [place] [address] [place] [address] documented as of this encounter Procedures Procedure Name Priority Date/Time Associated Diagnosis Comments POCT URINALYSIS DIPSTICK Routine 01/08/2025 10:45 AM EDT Third trimester ([facility]) 34 weeks gestation of ([facility]) documented in this encounter Results * POCT [...] this encounter Visit Diagnoses Diagnosis Third trimester ([facility]) state, incidental 34 weeks gestation of ([facility]) documented in this encounter Care Teams Manager Business Development Hospice Relationship Specialty Start Date End Date Darshan Watts MD [address] [facility] [place] [phone] PCP - General Family Medicine 12/28/22 documented as of this encounter
--- OUTSIDE RECORDS SUMMARY | 2025-01-15 10:00 | XMS_ITS | Encounter Summary ---
Author Organization [facility] Address [address] [place] [address] Care Team Providers Care Avionic Technician Name Role Phone Darshan Watts MD Primary Care Provider [phone] Reason for Visit * Reason Comments Routine Visit Encounter Details Date Type Department Care Team (Late st Contact Info) Description 01/15/2025 10:00 AM EDT Routine [facility] OB [address] [place] [phone] Kannan Vega, DO [address] [facility] [address] [place] [id number] 35 weeks gestation of ([facility]); Third trimester ([facility]) Social History Tobacco Use Types Packs/Day Years [...] LOW TRANSVERSE x4 PAP SMEAR 06/18/2021 negative [place] DILATION & CURETTAGE DX&/THER NONOBSTETRIC TONSILLECTOMY TUBAL [...] Care Team (Late st Contact Info) Description 01/22/2025 10:30 AM EDT Routine [facility] OB [address] [facility] [place] [address] Kannan Vega, DO [address] [facility] [address] [place], [place] [phone] documented as of this encounter Procedures Procedure Name Priority Date/Time Associated Diagnosis Comments POCT URINALYSIS DIPSTICK Routine 01/15/2025 10:31 AM EDT 35 weeks gestation of ([facility]) Third trimester ([facility]) documented in this encounter Results * (ABNORMAL) [...] Visit Diagnoses Diagnosis 35 weeks gestation of ([facility]) Third trimester ([facility]) state, incidental documented in this encounter Care Teams Avionic Technician Relationship Specialty Start Date End Date Darshan Watts MD [address] [facility] [place] [address] PCP - General Family Medicine 12/28/22 documented as of this encounter
--- OUTSIDE RECORDS SUMMARY | 2025-01-18 09:12 | XMS_ITS | Encounter Summary ---
Author Organization [facility] Address [address] [place] [address] Care Team Providers Care Production Potter Name Role Phone Darshan Watts MD Primary Care Provider [phone] Encounter Details Date Type Department Care Team (Latest Contact Info) Description 01/09/2025 Travel Social History Tobacco Use Types Packs/Day [...] BCP OB [address] [place] [address] Kannan Vega, DO [address] [facility] [place] [address] documented as of this encounter Visit Diagnoses Not on filedocumented in this encounter Care Teams Production Potter Relationship Specialty Start Date End Date Darshan Watts MD [address] [facility] [place] [address] PCP - General Family Medicine 12/28/22 documented as of this encounter
--- OUTSIDE RECORDS SUMMARY | 2025-01-18 09:12 | XMS_ITS | Encounter Summary ---
Author Organization [facility] Address [address] [place] [address] Care Team Providers Care Boat Person Name Role Phone Darshan Watts MD Primary Care Provider [phone] Encounter Details Date Type Department Care Team (Late st Contact Info) Description 01/15/[address] [facility] OB [address] [place] [address] Kannan Vega [facility] [place], [facility]11 Social History Tobacco Use Types Packs/Day [...] Routine [facility] OB [address] [place] [address] Kannan Vega, DO [facility] [place], [facility] documented as of this encounter Visit Diagnoses Not on filedocumented in this encounter Care Teams Boat Person Relationship Specialty Start Date End Date Darshan Watts MD [address] [place] [address] PCP - General Family Medicine 12/28/22 documented as of this encounter
--- OUTSIDE RECORDS SUMMARY | 2025-01-18 09:12 | XMS_ITS | Encounter Summary ---
Author Organization [facility] Address [address] [place] [address] Care Team Providers Care Staff Veterinarian Name Role Phone Darshan Watts MD Primary Care Provider [phone] Encounter Details Date Type Department Care Team (Late st Contact Info) Description 01/10/2025 Telephone [facility] OB [address] [facility] [place] [place] [address] Kannan Vega, DO [address] [place], [facility]11 Social History [...] on file documented as of this encounter Miscellaneous Notes * Telephone Encounter - Gemma Dumont LPN - 01/10/2025 1:35 PM EDT Patient called the office left a voicemail asking for her iron be sent to [facility] as they state she does not have an order. Patient called to make sure of pharmacy and advised script would be sent. documented in this encounter Plan of Treatment Upcoming Encounters Date Type Department Care Team (Late st Contact Info) Description 01/22/2025 10:30 AM EDT Routine [facility] [address] [facility] [place] [phone] Kannan Vega DO [address] [facility] [address] [place], [place] [phone] documented as of this encounter Visit Diagnoses Diagnosis Anemia during in second trimester ([facility]) documented in this encounter Care Teams Staff Veterinarian Relationship Specialty Start Date End Date Darshan Watts MD [address] [facility] [place] [address] PCP - General Family Medicine 12/28/22 documented as of this encounter
--- OUTSIDE RECORDS SUMMARY | 2025-01-18 09:12 | XMS_ITS | Encounter Summary ---
Author Organization [facility] Address [address] [place] [address] Care Team Providers Care Assistant Clinical Nurse Manager Name Role Phone Darshan Watts MD Primary Care Provider [phone] Encounter Details Date Type Department Care Team (Late Contact Info) Description 03/03/2024 Abstract [facility] OB [address] [place] [phone] Kannan Vega [facility] [place] [address] Social History Tobacco Use Types Packs/Day Years [...] EDT Routine [facility] OB [address] [place] [phone] Kannan Vega [facility] [place], [place] [phone] documented as of this encounter Visit Diagnoses Not on filedocumented in this encounter Care Teams Assistant Clinical Nurse Manager Relationship Specialty Start Date End Date Darshan Watts MD [address] [place] [address] PCP - General Family Medicine 12/28/22 documented as of this encounter
--- NOTE | 2025-01-18 09:13 | US_ITS ---
The [address] [address] Patient Name: LB ANTONIO MRN: [id number] date: 1985 Sex: F Assigned Patient Location: Current Patient Location: Accession/Order Number: [id number] Exam Date: 01/18/2025 11:15 Report Date: 01/18/2025 11:16 At the request of: NORBERT WILLIS DO Procedure: US OB BPP w non-stress BIOPHYSICAL PROFILE: CLINICAL INFORMATION: MULTIGRAVIDA OF AMA O09.523 COMPARISON: 01/04/2025 There is a single live intrauterine gestation in cephalic presentation. The reported gestational age is 35 weeks 5 days. The heart rate measures 129 beats per minute. FINDINGS: TONE: 1 or more episodes of activity extension and flexion of extremity or opening and closing of the hand [Y] 2/2 GROSS BODY MOVEMENTS: 3 or more discrete body or limb movements [Y] 2/2 BREATHING MOVEMENTS: 1 or more episodes of breathing lasting at least 30 seconds [Y] 2/2 LILIANA: A single deepest vertical pocket of amniotic fluid greater than 2 cm [Y] 2/2 LILIANA: 10.9 cm. This is in low-normal range. Total score: 8/8 US/ OB BPP w non-stress IMPRESSION: NORMAL BIOPHYSICAL PROFILE. Impression dictated by: Lise Bolanos M.D. 01/18/2025 11:16 AM Dictation Location: [place] [address] Electronically authenticated by: [id number] Y Date: 01/18/2025 11:16
--- OUTSIDE RECORDS SUMMARY | 2025-01-18 09:13 | XMS_ITS | Encounter Summary ---
Author Organization [facility] Address [address] [place] [address] Care Team Providers Care Embossing Machine Tender Name Role Phone Darshan Watts MD Primary Care Provider [phone] Encounter Details Date Type Department Care Team (Late st Contact Info) Description 11/08/2024 Abstract [facility] OB [address] [place] [address] Kannan Vega, DO [address] [place] [address] [place], [facility]11 Social History Tobacco Use Types [...] Description 01/22/2025 10:30 AM EDT Routine [facility] OB [address] [place] [address] Kannan Vega, DO [facility] [place], [facility]11 documented as of this encounter Visit Diagnoses Not on filedocumented in this encounter Care Teams Embossing Machine Tender Relationship Specialty Start Date End Date Darshan Watts MD [address] [place] [address] PCP - General Family Medicine 12/28/22 documented as of this encounter
--- OUTSIDE RECORDS SUMMARY | 2025-01-18 09:13 | XMS_ITS | Encounter Summary ---
Author Organization [facility] Address [address] [place] [address] Care Team Providers Care Textile Scrap Salvager Name Role Phone Darshan Watts MD Primary Care Provider [phone] Encounter Details Date Type Department Care Team (Late st Contact Info) Description 08/23/2024 Abstract [facility] OB [address] [place] [address] Kannan Vega, DO [address] [place] [address] [place], [facility]11 Social History Tobacco Use Types Packs/Day [...] Description 01/22/2025 10:30 AM EDT Routine [facility] OB [address] [place] [address] Kannan Vega, DO [facility] [place], [facility]11 documented as of this encounter Visit Diagnoses Not on filedocumented in this encounter Care Teams Textile Scrap Salvager Relationship Specialty Start Date End Date Darshan Watts MD [address] [place] [address] PCP - General Family Medicine 12/28/22 documented as of this encounter
--- OUTSIDE RECORDS SUMMARY | 2025-01-18 09:13 | XMS_ITS | Encounter Summary ---
Author Organization [facility] Address [address] [place] [address] Care Team Providers Care Employee Communications Coordinator Name Role Phone Darshan Watts MD Primary Care Provider [phone] Encounter Details Date Type Department Care Team (Late st Contact Info) Description 10/10/2024 Abstract [facility] OB [address] [place] [address] Kannan Vega, DO [address] [place] [address] [place], [facility]11 Social History Tobacco Use Types Packs/Day Years [...] Description 01/22/2025 10:30 AM EDT Routine [facility] OB [address] [place] [address] Kannan Vega, DO [facility] [place], [facility] documented as of this encounter Visit Diagnoses Not on filedocumented in this encounter Care Teams Employee Communications Coordinator Relationship Specialty Start Date End Date Darshan Watts MD [address] [place] [address] PCP - General Family Medicine 12/28/22 documented as of this encounter
--- OUTSIDE RECORDS SUMMARY | 2025-01-18 09:13 | XMS_ITS | Clinical Summary ---
Author Organization [employer] Address [id number] [address] [place] [address] Care Team Providers Care Outside Sales Account Representative Name Role Phone Darshan Watts MD Primary Care Provider [phone] Allergies Active Allergy Reactions Criticality Noted Date [...] by mouth in the morning. Active omega 8-qpi-yhr-fish oil (Fish OiL) 300-1,000 mg capsule Take [...] PM EDT Hospital Encounter [facility] - Ultrasound [address] [place] [address] Multigravida of advanced maternal age in second trimester; History of delivery affecting Discharge Disposition: Home 11/07/2024 Travel from Last 3 Months Family History [...] Name Priority Date/Time Associated Diagnosis Comments US MFM OB FOLLOW-UP, 1 FETUS Routine 11/07/2024 11:40 AM EDT Multigravida of advanced maternal age in second trimester History of delivery affecting from Last 3 Months Results * US MFM OB FOLLOW-UP, 1 FETUS (11/07/2024 11:40 AM EDT) Anatomical Region Laterality Modality OB-ACCOUNTING MACHINE SERVICER Ultrasound 11/07/2024 10:0 2 AM EDT Narrative 11/07/2024 4:36 PM EDT NAME: PACO ASHER : 1985 SEX: F Accession Number: [id number] ORDERING PHYSICIAN: DM KANG REFERRING PHYSICIAN: NORBERT WILLIS Coding ----- --------- Procedures [id number]: Follow-up Ultrasound, per fetus Indication ----- --------- Screening for follow-up survey, AMA- Supervision of elderly, Depression, Anxiety, Previous x4, Obesity in History ----- --------- OB History 9. Para 4 [id number] Current ----- --------- Cell free DNA Low [...] 1 lb 10 oz EFW by Hadlock ([id number]) Head / Face / Neck Biometry: Cephalic index 0.72 3% Nicolaides Blower Room Attendant 1.5 mm CM 5.3 mm 23% Nicolaides Extremities / Bony Struc Biometry: FL / BPD 0.76 FL / HC 0.20 FL / AC 0.22 Tibia 39.0 mm 24w 6d 27% Juan Manuel Anatomy ----- --------- The following structures appear normal: Head/Neck: Cranium. Lateral ventricles. Cavum septi pellucidi. Cerebellum. Cisterna magna. Parenchyma. Face: Mandible. Orbits. Heart/Thorax: 4-chamber view. RVOT view. 5-eyueup-ztbwtic view. Aortic arch view. Bicaval view. Ductal [...] 4.4 cm. Recommendations ----- --------- Please see [facility] recommendations from prior clinical and/or ultrasound report documentation. Subsequent follow up or other follow up as clinically determined by primary OB provider unless otherwise specified by [facility]. Results forwarded to ordering provider so they can follow up with the patient as necessary. Procedure Note Damián Short MD - 11/07/2024 NAME: PACO ASHER : 1985 SEX: F Accession Number: [id number] ORDERING PHYSICIAN: DM KANG REFERRING PHYSICIAN: NORBERT WILLIS Coding ----- --------- Procedures [id number]: Follow-up Ultrasound, per fetus Indication ----- --------- Screening for follow-up survey, AMA- Supervision of elderly, Depression,Anxiety, Previous x4, Obesity in History ----- --------- OB History 9. Para 4 [id number] Current ----- --------- Cell free DNA Low [...] 1 lb 10 oz EFW by Hadlock ([id number]) Head / Face / Neck Biometry: Cephalic index 0.72 3% Nicolaides Blower Room Attendant 1.5 mm CM 5.3 mm 23% Spencerides Extremities / Bony Struc Biometry: FL / BPD 0.76 FL / HC 0.20 FL / AC 0.22 Tibia 39.0 mm 24w 6d 27% Juan Manuel Anatomy ----- --------- The following structures appear normal: Head/Neck: Cranium. Lateral ventricles. Cavum septi pellucidi. Cerebellum.Cisterna magna. Parenchyma. Face: Mandible. Orbits. Heart/Thorax: 4-chamber view. RVOT view. 1-utqbht-iabuxxt view. Aorticarch view. Bicaval view. Ductal arch [...] 4.4 cm. Recommendations ----- --------- Please see [facility] recommendations from prior clinical and/or ultrasoundreport documentation. Subsequent follow up or other follow up as clinically determined byprimary OB provider unless otherwise specified by [facility]. Results forwarded to ordering provider so they can follow up with thepatient as necessary. us Dm Kang MD [facility] ORDERABLES Final Resul t from Last 3 Months Insurance [facility] MEDICAID Care Teams Outside Sales Account Representative Relationship Specialty Start Date End Date Darshan Watts MD PCP - General 04/04/18
--- OUTSIDE RECORDS SUMMARY | 2025-01-18 09:13 | XMS_ITS ---
Author Organization [facility] Source Produ ction (ClinicalSummary Clone) Address Unknown Care Team Providers Care Wire Harness Assembler Name Role Phone Unavailable Primary Care Physician Unavailab le Results * [UNITY] ANEUPLOIDY NIPT Performed by: [employer] Component Value Range Date Fraction 6.3% 08/05/2024 06 :42 am UT Sex Chromosome Aneuploidy NOT DETECTED 06:42 am UT Monosomy X LOW RISK <1 in 10,000 2023 06:42 am UT Trisomy 13 LOW RISK <1 in 10,000 2023 06:42 am UT Trisomy 18 LOW RISK <1 in 10,000 2023 06:42 am UT Trisomy 21 LOW RISK <1 in 10,000 2023 06:42 am UT Sex MALE 08/05/2024 06:4 2 am UT Gestation GRAY 08/05/20 06:42 am [facility] For detailed report, see PDF See PDF 08/05/2024 06:42 am UTC 08/05/2024 06:4 2 am [facility] Social History Observation Value Start Date End Date
--- OUTSIDE RECORDS SUMMARY | 2025-01-18 09:13 | XMS_ITS | Encounter Summary ---
Author Organization [facility] Address [address] [place] [address] Care Team Providers Care Human Services Program Specialist Name Role Phone Darshan Watts MD Primary Care Provider [phone] Encounter Details Date Type Department Care Team (Late st Contact Info) Description 01/04/2025 Clinisync Result Encounter [facility] External Department Unsolicited Norbert Vega, DO [address] [place], [place] [phone] Social History Tobacco Use Types Packs/Day Years [...] Routine [facility] BCP OB [address] [place] [phone] Norbert Vega DO [address] [place] [address] documented as of this encounter Procedures Procedure Name Priority Date/Time Associated Diagnosis Comments US OB BPP W NON-STRESS 01/04/2025 11:36 AM EDT documented in this encounter Results * US OB BPP W NON-STRESS (01/04/2025 11:36 AM EDT) Anatomical Region Laterality Modality Other 01/04/2025 11:3 6 AM EDT Narrative 01/04/2025 11:39 [place] [address] Ultrasound Report Signed Patient: LB SANON MR#: [id number] : 1985 Acct:[id number] Age/Sex: 39 / F ADM Date: 01/04/25 Loc: [facility] 250-[address]: Norbert Vega D.O. Ordering Physician: Norbert Vega D.O. Date of Service: 01/04/25 Procedure(s): US OB BPP w non-stress Accession Number(s): [id number] cc: Norbert Vega D.O.; Darshan Watts M.D. The [place] [address] Patient Name: LB SANON MRN: [id number] date: 1985 Sex: F Assigned Patient Location: Current Patient Location: US Accession/Order Number: [id number] Exam Date: 01/04/2025 11:35 Report Date: 01/04/2025 11:36 At the request of: NORBERT VEGA DO Procedure: US OB BPP w non-stress BIOPHYSICAL PROFILE: CLINICAL INFORMATION: Multigravida of advanced maternal age COMPARISON: 12/28/2024 There is a single live intrauterine gestation in cephalic presentation. The reported gestational age is 33 weeks 5 days. The heart rate [id number] beats per minute. FINDINGS: TONE: 1 or [...] Bolanos M.D. 01/04/2025 11:36 AM Dictation Location: [place] [address] Electronically authenticated by: [id number] Y Date: 01/04/2025 11:36 Dictated By: Lise Bolanos M.D. Signed By: 01/04/25 1139 DD/ 1136 TD/TT: Conditioner Tender: Procedure Note Radiology, Radiologist, MD - 01/04/2025 [place] [address] Ultrasound Report Signed Patient: LB SANON RMR#: [id number] : 1985Acct:[id number] Age/Sex: 39 / FADM Date: 01/04/25 Loc: [facility] [address]: Norbert Vega D.O. Ordering Physician: Norbert Vega D.O. Date of Service: 01/04/25 Procedure(s): US OB BPP w non-stress Accession Number(s): [id number] cc: Norbert Vega D.O.; Darshan Watts M.D. The [place] [id number] Patient Name: LB SANON MRN: [id number] date: 1985 Sex: F Assigned Patient Location: US Current Patient Location: US Accession/Order Number: [id number] Exam Date: 01/04/2025 11:35 Report Date: 01/04/2025 11:36 At the request of: NORBERT VEGA DO Procedure: US OB BPP w non-stress BIOPHYSICAL PROFILE: CLINICAL INFORMATION: Multigravida of advanced maternal age COMPARISON: 12/28/2024 There is a single live intrauterine gestation in cephalic presentation.The reported gestational age is 33 weeks 5 days. The heart [id number] beats per minute. FINDINGS: TONE: 1 or [...] Bolanos M.D. 01/04/2025 11:36 AM Dictation Location: [place] [address] Electronically authenticated by: [id number] Y Date: 1:36 Dictated By: Lise Bolanos M.D. Signed By:01/04/25 1139 DD/ 1136 TD/TT: Conditioner Tender: us Norbert Silvia DO [facility] Final Result documented in this encounter Visit Diagnoses Not on filedocumented in this encounter Care Teams Human Services Program Specialist Relationship Specialty Start Date End Date Darshan Watts MD [address] [place] [address] PCP - General Family Medicine 12/28/22 documented as of this encounter
--- OUTSIDE RECORDS SUMMARY | 2025-01-18 09:13 | XMS_ITS | Encounter Summary ---
Author Organization [facility] Address [address] [place] [address] Care Team Providers Care Diesel Service Technician Name Role Phone Darshan Watts MD Primary Care Provider [phone] Encounter Details Date Type Department Care Team (Late st Contact Info) Description 12/11/2024 Abstract [facility] OB [address] [place] [address] Kannan Vega, DO [address] [place] [address] Parris [place], [facility]11 Social History Tobacco Use Types Packs/Day [...] Description 01/22/2025 10:30 AM EDT Routine [facility] OB [address] [place] [address] Kannan Vega, DO [facility] [place], [facility] documented as of this encounter Visit Diagnoses Not on filedocumented in this encounter Care Teams Diesel Service Technician Relationship Specialty Start Date End Date Darshan Watts MD [address] [place] [address] PCP - General Family Medicine 12/28/22 documented as of this encounter
--- OUTSIDE RECORDS SUMMARY | 2025-01-18 09:13 | XMS_ITS | Encounter Summary ---
Author Organization [facility] tem Address [id number] [address] [place] [address] Care Team Providers Care Sfdc Technical Architect Name Role Phone Darshan Watts MD Primary Care Provider [phone] Encounter Details Date Type Department Care Team (Late st Contact Info) Description 09/08/2024 Orders Only Maternal- Medicine at [facility] [address] [place] [address] Kannan Vega, DO [address] [facility] [place] [address] Social History Tobacco Use Types Packs/Day Years [...] on filedocumented in this encounter Care Teams Sfdc Technical Architect Relationship Specialty Start Date End Date Darshan Watts MD PCP - General 04/04/18 documented as of this encounter
--- OUTSIDE RECORDS SUMMARY | 2025-01-18 09:13 | XMS_ITS | Encounter Summary ---
Author Organization [facility] Address [address] [place] [address] Care Team Providers Care Polishing Machine Operator Name Role Phone Darshan Watts MD Primary Care Provider [phone] Encounter Details Date Type Department Care Team (Late st Contact Info) Description 07/27/2024 Clinisync Result Encounter [facility] External Department Unsolicited Norbert Vega, [facility] [place] [address] Social History Tobacco Use Types Packs/Day Years [...] [facility] BCP OB [address] [place] [phone] Norbert Vega DO [facility] [place] [address] documented as of this encounter Procedures Procedure Name Priority Date/Time Associated Diagnosis Comments US OB L= 14 WEEKS FETUS 07/27/2024 11:07 AM EST documented in this encounter Results * US OB L= 14 WEEKS FETUS (07/27/2024 11:07 AM EST) Anatomical Region Laterality Modality Other 07/27/2024 11:0 7 AM EST Narrative 07/27/2024 11:09 [place] [address] Ultrasound Report Signed Patient: LB SANON MR#: [id number] : 1985 Acct:[id number] Age/Sex: 38 / F ADM Date: 07/27/24 Loc: US Attending Dr: Norbert Vega D.O. Ordering Physician: Norbert Vega D.O. Date of Service: 07/27/24 Procedure(s): US OB <= 14 weeks fetus Accession Number(s): [id number] cc: Norbert Vega D.O. [place] [address] Patient Name: LB SANON MRN: [id number] date: 1985 Sex: F Assigned Patient Location: Current Patient Location: US Accession/Order Number: [id number] Exam Date: 07/27/2024 09:40 Report Date: 07/27/2024 [...] Signed By: 07/27/24 1109 DD/ 06 TD/TT: Curve Cleaner: Procedure Note Radiology, Radiologist, MD - 07/27/2024 [place] [address] Ultrasound Report Signed Patient: LB SANON RMR#: [id number] : 1985Acct:[id number] Age/Sex: 38 / FADM Date: 07/27/24 Loc: US Attending Dr: Norbert Vega D.O. Ordering Physician: Norbert Vega D.O. Date of Service: 07/27/24 Procedure(s): US OB <= 14 weeks fetus Accession Number(s): [id number] cc: Norbert Vega D.O. The [place] [address] Patient Name: LB SANON MRN: [id number] date: 1985 Sex: F Assigned Patient Location: US Current Patient Location: US Accession/Order Number: [id number] Exam Date: 07/27/2024 09:40 Report Date: 07/27/2024 [...] Durbin M.D. Signed By:07/27/241108 DD/ 06 TD/TT: Curve Cleaner: us Norbert Vega DO [facility] Final Result documented in this encounter Visit Diagnoses Not on filedocumented in this encounter Care Teams Polishing Machine Operator Relationship Specialty Start Date End Date Darshan Watts MD [address] [place] [address] PCP - General Family Medicine 12/28/22 documented as of this encounter
--- OUTSIDE RECORDS SUMMARY | 2025-01-18 09:13 | XMS_ITS | Encounter Summary ---
Author Organization [facility] Address [address] [place] [address] Care Team Providers Care Customer Acquisition Manager Name Role Phone Darshan Watts MD Primary Care Provider [phone] Encounter Details Date Type Department Care Team (Late st Contact Info) Description 08/07/2024 Abstract [facility] OB [address] [place] [address] Kannan Vega, DO [address] [place] [address] Parris [place], [facility]11 Social [...] [facility] BCP OB [address] [place] [address] Kannan Vega, DO [facility] [place], [facility]11 documented as of this encounter Visit Diagnoses Not on filedocumented in this encounter Care Teams Customer Acquisition Manager Relationship Specialty Start Date End Date Darshan Watts MD [address] [place] [address] PCP - General Family Medicine 12/28/22 documented as of this encounter
--- OUTSIDE RECORDS SUMMARY | 2025-01-18 09:13 | XMS_ITS | Encounter Summary ---
Author Organization [facility] Address [address] [place] [address] Care Team Providers Care Desulfurizer Hand Name Role Phone Darshan Watts MD Primary Care Provider [phone] Encounter Details Date Type Department Care Team (Late st Contact Info) Description 09/20/2023 Clinisync Result Encounter [facility] External Department Unsolicited Norbert Vega, [place] [address] Social History Tobacco Use Types Packs/Day Years [...] Routine [facility] BCP OB [address] [place] [phone] Norbert Vega DO [facility] [place] [address] documented as of this encounter Procedures Procedure Name Priority Date/Time Associated Diagnosis Comments US PELVIS W/ TRANSVAGINAL 09/20/2023 1:51 PM EST documented in this encounter Results * US PELVIS W/ TRANSVAGINAL (09/20/2023 1:51 PM EST) Anatomical Region Laterality Modality Other 09/20/2023 1:51 PM EST Narrative 09/20/2023 1:54 [place] [address] Ultrasound Report Signed Patient: LB SANON MR#: [id number] : 1985 Acct:[id number] Age/Sex: 37 / F ADM Date: 09/20/23 Loc: US Attending Dr: Norbert Vega D.O. Ordering Physician: Norbert Vega D.O. Date of Service: 09/20/23 Procedure(s): US pelvis w/ transvaginal Accession Number(s): [id number] cc: Norbert Vega D.O.; Darshan Watts M.D. [place] [id number] Patient Name: LB SANON MRN: [id number] date: 1985 Sex: F Assigned Patient Location: US Current Patient Location: US Accession/Order Number: [id number] Exam Date: 09/20/2023 11:42 Report Date: 09/20/2023 [...] By: Perez Durbin M.D. Signed By: 09/20/23 5170 DD/ 1355 TD/TT: Adventure Guide: Procedure Note Radiology, Radiologist, MD - 09/20/2023 [place] [address] Ultrasound Report Signed Patient: LB SANON RMR#: [id number] : 1985Acct:[id number] Age/Sex: 37 / FADM Date: 09/20/23 Loc: US Attending Dr: Norbert Vega D.O. Ordering Physician: Norbert Vega D.O. Date of Service: 09/20/23 Procedure(s): US pelvis w/ transvaginal Accession Number(s): [id number] cc: Norbert Vega D.O.; Darshan Watts M.D. The [place] [id number] Patient Name: LB SANON MRN: [id number] date: 1985 Sex: F Assigned Patient Location: US Current Patient Location: US Accession/Order Number: [id number] Exam Date: 09/20/2023 11:42 Report Date: 09/20/2023 [...] M.D. Signed By:09/20/23 1354 DD/ 1351 TD/TT: Adventure Guide: us Norbert Silvia DO [facility] Final Result documented in this encounter Visit Diagnoses Not on filedocumented in this encounter Care Teams Desulfurizer Hand Relationship Specialty Start Date End Date Darshan Watts MD [address] [place] [address] PCP - General Family Medicine 12/28/22 documented as of this encounter
--- OUTSIDE RECORDS SUMMARY | 2025-01-18 09:13 | XMS_ITS | Encounter Summary ---
Author Organization [facility] Address [address] [place] [address] Care Team Providers Care Drum Filler Name Role Phone Darshan Watts MD Primary Care Provider [phone] Encounter Details Date Type Department Care Team (Late st Contact Info) Description 11/11/2023 Abstract [facility] OB [address] [place] [address] Gemma [place] LPN [address] [employer] [facility] Charly [facility]11 Social History Tobacco Use Types Packs/Day [...] Description 01/22/2025 10:30 AM EDT Routine [facility] [address] [place] [address] Kannan Vega [address] [place], [place] [address] documented as of this encounter Visit Diagnoses Not on filedocumented in this encounter Care Teams Drum Filler Relationship Specialty Start Date End Date Darshan Watts MD [address] [place] [address] PCP - General Family Medicine 12/28/22 documented as of this encounter
--- OUTSIDE RECORDS SUMMARY | 2025-01-18 09:13 | XMS_ITS | Encounter Summary ---
Author Organization [facility] Address [address] [place] [address] Care Team Providers Care Mold Stripper Name Role Phone Darshan Watts MD Primary Care Provider [phone] Encounter Details Date Type Department Care Team (Late st Contact Info) Description 11/01/2023 Clinisync Result Encounter N[facility] External Department Unsolicited Norbert Vega, [facility] [address] Social History Tobacco Use Types Packs/Day Years [...] Routine [facility] BCP OB [address] [place] [phone] Norbert Vega DO [facility] [place] [address] documented as of this encounter Procedures Procedure Name Priority Date/Time Associated Diagnosis Comments US PELVIS TRANSVAGINAL 11/01/2023 12:52 PM EDT documented in this encounter Results * US PELVIS TRANSVAGINAL (11/01/2023 12:52 PM EDT) Anatomical Region Laterality Modality Other 11/01/2023 12:5 2 PM EDT Narrative 11/01/2023 12:55 [place] [address] Ultrasound Report Signed Patient: LB SANON MR#: [id number] : 1985 Acct:[id number] Age/Sex: 38 / F ADM Date: 11/01/23 Loc: US Attending Dr: Norbert Vega D.O. Ordering Physician: Norbert Vega D.O. Date of Service: 11/01/23 Procedure(s): US pelvis transvaginal Accession Number(s): [id number] cc: Norbert Vega D.O.; Darshan Watts M.D. [place] [id number] Patient Name: LB SANON MRN: [id number] date: 1985 Sex: F Assigned Patient Location: US Current Patient Location: US Accession/Order Number: [id number] Exam Date: 11/01/2023 11:48 Report Date: 11/01/2023 [...] By: Perez Durbin M.D. Signed By: 11/01/23 1250 DD/ 1252 TD/TT: Maintenance Team Leader: Procedure Note Radiology, Radiologist, - 11/01/2023 [place] [address] Ultrasound Report Signed Patient: LB SANON RMR#: [id number] : 1985Acct:[id number] Age/Sex: 38 / FADM Date: 11/01/23 Loc: US Attending Dr: Norbert Vega D.O. Ordering Physician: Norbert Vega D.O. Date of Service: 11/01/23 Procedure(s): US pelvis transvaginal Accession Number(s): [id number] cc: Norbert Vega D.O.; Darshan Watts M.D. The [place] [address] Patient Name: LB SANON MRN: [id number] date: 1985 Sex: F Assigned Patient Location: US Current Patient Location: US Accession/Order Number: [id number] Exam Date: 11/01/2023 11:48 Report Date: 11/01/2023 [...] M.D. Signed By:11/01/23 1255 DD/ 1252 TD/TT: Maintenance Team Leader: us Norbert Silvia DO [facility] Final Result documented in this encounter Visit Diagnoses Not on filedocumented in this encounter Care Teams Mold Stripper Relationship Specialty Start Date End Date Darshan Watts MD [address] [place] [address] PCP - General Family Medicine 12/28/22 documented as of this encounter
--- OUTSIDE RECORDS SUMMARY | 2025-01-18 09:13 | XMS_ITS | Encounter Summary ---
Author Organization [facility] Address [address] [place] [address] Care Team Providers Care Natural Fabricator Name Role Phone Darshan Watts MD Primary Care Provider [phone] Encounter Details Date Type Department Care Team (Late Contact Info) Description 12/25/2022 Abstract N[facility] OB [address] [place] [address] Kannan Vega [facility] [address] Social History Tobacco Use Types Packs/Day Years [...] EDT Routine [facility]S BCP OB [address] [place] [address] Kannan Vega [facility] [place], [place] [address] documented as of this encounter Visit Diagnoses Not on filedocumented in this encounter Care Teams Natural Fabricator Relationship Specialty Start Date End Date Darshan Watts MD [address] [place] [address] PCP - General Family Medicine 12/28/22 documented as of this encounter
--- OUTSIDE RECORDS SUMMARY | 2025-01-18 09:13 | XMS_ITS | Encounter Summary ---
Author Organization [facility] Address [address] [place] [address] Care Team Providers Care Copy Cutter Name Role Phone Darshan Watts MD Primary Care Provider [phone] Encounter Details Date Type Department Care Team (Late st Contact Info) Description 05/26/2023 Abstract N[facility] [address] [facility] [address] [place] [address] Milagros Rose, [facility] 112 [facility] [address] [place] [address] Social History Tobacco Use Types Packs/Day Years [...] EDT Routine [facility]S BCP OB [address] [place] [address] Kannan Vega DO [address] [place] [address] documented as of this encounter Visit Diagnoses Not on filedocumented in this encounter Care Teams Copy Cutter Relationship Specialty Start Date End Date Darshan Watts MD [address] [place] [address] PCP - General Family Medicine 12/28/22 documented as of this encounter
--- OUTSIDE RECORDS SUMMARY | 2025-01-18 09:13 | XMS_ITS | Encounter Summary ---
Author Organization [facility] Address [address] [place] [address] Care Team Providers Care Weed Controller Name Role Phone Darshan Watts MD Primary Care Provider [phone] Encounter Details Date Type Department Care Team (Late st Contact Info) Description 01/08/2025 Bamboo flowsheet N[facility] [address] [place] [address] Kannan Vega [facility] [place] Parris [place], [facility] Social History Tobacco Use Types Packs/Day Years [...] Routine [facility] BCP OB [address] [place] [address] Kannan Vega, DO [facility] [place], [facility] documented as of this encounter Visit Diagnoses Not on filedocumented in this encounter Care Teams Weed Controller Relationship Specialty Start Date End Date Darshan Watts MD [address] [place] [address] PCP - General Family Medicine 12/28/22 documented as of this encounter
--- OUTSIDE RECORDS SUMMARY | 2025-01-18 09:13 | XMS_ITS | Clinical Summary ---
Author Organization [facility] Address [address] [place] [address] Care Team Providers Care Thoroughbred Horse Farm Manager Name Role Phone Darshan Watts MD Primary Care Provider [phone] Allergies Active Allergy Reactions Criticality Noted Date [...] 300 mg by mouth in the morning. 06/18/20 24 Active omega-3 (FISH OIL) 300 MG capsule Take 300 mg by mouth Daily Active co-enzyme Q-10 30 MG capsule Take 30 mg by mouth Daily Active MV-Min-Fe Fum-FA-DHA ( 1 PO) Take 1 tablet by mouth Daily Active simvastatin (Zocor) 40 MG tablet Take 1 tablet by mouth in the evening Active iron polysaccharides (ProFe) 391.3 (180 Fe) MG capsuleIndications: Anemia during in second trimester ([facility]) Take 1 capsule (391.3 mg) by mouth Daily 30 capsule 11 01/11/20 25 025 Active citalopram (CeleXA) 20 MG tablet Take 20 mg by mouth in the morning. 025 Discontinued venlafaxine XR (Effexor XR) 37.5 MG 24 hr capsuleIndications: Anxiety, generalized Take 1 capsule (37.5 mg) by mouth Daily Do not crush or chew. 30 capsule 2 11/02/19 25 025 Discontinued Active Problems Problem Noted Date Diagnosed Date Anxiety, generalized 01/15/2023 Estimated Date of Delivery Comme nts Yes 02/17/2025 Based on last me nstrual period of 05/13/2024, unknown period. Encounters Date Type Department Care Team Description 01/16/2025 Travel 01/15/2025 10:00 AM EDT Routine [facility] [address] [place] [address] Norbert Vega, 35 weeks gestation of ([facility]); Third trimester ([facility]) 01/15/2025 Bamboo flowsheet [facility] [address] [place] [address] Norbert Vega, 01/10/2025 Telephone [facility] [address] [place] [address] Norbert Vega, 01/09/2025 Travel 01/08/2025 10:10 AM EDT Routine [facility] [place] [address] [place] [address] Norbert Vega, Third trimester ([facility]); 34 weeks gestation of ([facility]) 01/08/2025 Bamboo flowsheet [facility] [place] [address] [place] [address] Norbert Vega, 01/04/2025 Clinisync Result Encounter [facility] External Department Unsolicited Norbert Vega, DO 01/01/2025 Travel 12/28/2024 Clinisync Result Encounter [facility] External Department Unsolicited Norbert Vega, DO 12/26/2024 9:00 AM EDT Routine [facility] [place] [address] [place] [address] Norbert Vega, DO 32 weeks gestation of ([facility]); Third trimester ([facility]) 12/26/2024 Bamboo flowsheet [facility] [address] [place] [address] Norbert Vega, DO 12/21/2024 Travel 12/21/2024 Clinisync Result Encounter [facility] External Department Unsolicited Norbert Vega, DO 12/21/2024 Clinisync Result Encounter [facility] External Department Unsolicited SilviaDarrelly, DO 12/11/2024 8:30 AM EDT Routine [facility] [address] [place] [address] Norbert Vega, DO Third trimester ([facility]); 30 weeks gestation of ([facility]) 12/11/2024 8:00 AM EDT Ancillary Procedure [facility] [address] [place] [address] Multigravida of advanced maternal age in third trimester ([facility]) 12/11/2024 Abstract [facility] [address] [place] [address] Norbert Vega, DO 12/09/2024 Clinisync Result Encounter [facility] External Department Unsolicited Norbert Vega, DO 11/30/2024 Clinisync Result Encounter [facility] External Department Unsolicited Norbert Vega, DO 11/27/2024 1:10 PM EDT Routine [facility] [address] [place] [address] Norbert Vega, DO Third trimester ([facility]); 28 weeks gestation of ([facility]); Multigravida of advanced maternal age in third trimester ([facility]); Anemia during in second trimester ([facility]) 11/27/2024 Bamboo flowsheet [facility] [address] [place] [address] Norbert Vega, DO 11/08/2024 Abstract [facility] [address] [place] [address] Norbert Vega, DO 11/01/[address] [facility] [address] [place] [address] [phone] Norbert Vega, DO 10/30/2024 2:50 PM EDT Routine [facility] [address] [place] [address] Norbert Vega, DO Anemia during in second trimester ([facility]); Second trimester ([facility]); 24 weeks gestation of ([facility]) 10/30/2024 Bamboo flowsheet [facility] [address] [place] [address] Norbert Vega, DO 2024 Travel 10/23/2024 Clinisync Result Encounter [facility] External Department Unsolicited Norbert Vega, DO 10/19/[address] [facility] [address] [place] [address] Dayami Dumont MA from Last 3 Months Family History * [...] 1.9 oz) 01/15/2025 10:26 AM EDT Height 152.4 cm (5') 03/01/2023 1:24 PM EDT Body Mass Index 30.69 03/01/2023 1:24 PM EDT Plan of Treatment Upcoming Encounters Date Type Department Care Team (Late st Contact Info) Description 01/22/2025 10:30 AM EDT Routine [facility] [address] [place] [address] Norbert Vega, DO [address] [facility] [address] [place] [address] Health Maintenance Due Date Last Done Comments Influenza Vaccine (Season Ended) 2025 Cervical Cancer Screening 12/22/2027 HPV/Cotest 12/22/2027 Pap Smear 12/22/2027 12/21/2022 Procedures Procedure Name Priority Date/Time Associated Diagnosis Comments POCT URINALYSIS DIPSTICK Routine 01/15/2025 10:31 AM EDT 35 weeks gestation of ([facility]) Third trimester ([facility]) POCT URINALYSIS DIPSTICK Routine 01/08/2025 10:45 AM EDT Third trimester ([facility]) 34 weeks gestation of ([facility]) US OB BPP W NON-STRESS 01/04/2025 11:36 AM EDT US OB BPP W NON-STRESS 12/28/2024 10:16 AM EDT POCT URINALYSIS DIPSTICK Routine 12/26/2024 9:40 AM EDT 32 weeks gestation of ([facility]) Third trimester ([facility]) US OB GROWTH 12/21/2024 11:41 AM EDT US OB BPP W NON-STRESS 12/21/2024 11:39 AM EDT POCT URINALYSIS DIPSTICK Routine 12/11/2024 8:55 AM EDT Third trimester ([facility]) US OB FOLLOW UP TRANSABDOMINAL APPROACH Routine 12/11/2024 8:18 AM EDT Multigravida of advanced maternal age in third trimester ([facility]) [facility] URINE MICROSCOPIC ONLY Routine 12/09/2024 2:00 PM EDT [facility]H UA (CLEAN/CATCH) MICROSCOPIC IF INDICATE Routine 12/09/2024 2:00 PM EDT TBH UA (CLEAN/CATCH) HALL DIRECTOR/MICRO IF IND. Routine 11/30/2024 4:48 PM EDT POCT URINALYSIS DIPSTICK Routine 11/27/2024 1:28 PM EDT Third trimester ([facility]) POCT URINALYSIS DIPSTICK Routine 10/30/2024 3:13 PM EDT Second trimester ([facility]) GLUCOSE 1 HOUR Routine 10/23/2024 2:18 PM EDT ALL CBC WITH AUTO DIFF Routine 2:18 PM EDT PAP SMEAR Routine 12/21/2022 12:00 AM EDT from Last 3 Months or Most Recently Relevant to Health Maintenance Results * (ABNORMAL) POCT urinalysis dipstick manually resulted (01/15/2025 10:31 AM EDT) Only the most recent of6 resultswithin the time period is included. Color, [...] Positive Urine 01/15/2025 10:3 1 AM EDT us Norbert Vega DO POINT OF CARE TEST ENTER/EDIT OR DERABLES Final Result * US OB BPP W NON-STRESS (01/04/2025 11:36 AM EDT) Only the most recent of3 resultswithin the time period is included. Anatomical Region Laterality Modality Other 01/04/2025 11:3 6 AM EDT Narrative 01/04/2025 11:39 [place] [address] Ultrasound Report Signed Patient: JANNIE SANON MR#: [id number] : 1985 Acct:[id number] Age/Sex: 39 / F ADM Date: 01/04/25 Loc: [facility] 250- Attending Dr: Norbert Vega D.O. Ordering Physician: Norbert Vega D.O. Date of Service: 01/04/25 Procedure(s): US OB BPP w non-stress Accession Number(s): [id number] cc: Norbert Vega D.O.; Darshan Watts M.D. [address] [address] Patient Name: JANNIE SANON MRN: [id number] date: 1985 Sex: F Assigned Patient Location: US Current Patient Location: US Accession/Order Number: [id number] Exam Date: 01/04/2025 11:35 Report Date: 01/04/2025 11:36 At the request of: NORBERT VEGA DO Procedure: US OB BPP w non-stress BIOPHYSICAL PROFILE: CLINICAL INFORMATION: Multigravida of advanced maternal age COMPARISON: 12/28/2024 There is a single live intrauterine gestation in cephalic presentation. The reported gestational age is 33 weeks 5 days. The heart rate [id number] beats per minute. FINDINGS: TONE: 1 or [...] Bolanos M.D. 01/04/2025 11:36 AM Dictation Location: [place] [address] Electronically authenticated by: [id number] Y Date: 01/04/2025 11:36 Dictated By: Lise Bolanos M.D. Signed By: 01/04/25 1139 DD/ 1136 TD/TT: Product Safety Expert: Procedure Note Radiology, Radiologist, - 01/04/2025 [place] [address] Ultrasound Report Signed Patient: JANNIE SANON RMR#: [id number] : 1985Acct:[id number] Age/Sex: 39 / FADM Date: 01/04/25 Loc: [facility] 250-[address]: Norbert Vega D.O. Ordering Physician: Norbert Vega D.O. Date of Service: 01/04/25 Procedure(s): US OB BPP w non-stress Accession Number(s): [id number] cc: Norbert Vega D.O.; Darshan Watts M.D. [address] [address] Patient Name: JANNIE SANON MRN: [id number] date: 1985 Sex: F Assigned Patient Location: Current Patient Location: US Accession/Order Number: [id number] Exam Date: 01/04/2025 11:35 Report Date: 01/04/2025 11:36 At the request of: NORBERT VEGA DO Procedure: US OB BPP w non-stress BIOPHYSICAL PROFILE: CLINICAL INFORMATION: Multigravida of advanced maternal age COMPARISON: 12/28/2024 There is a single live intrauterine gestation in cephalic presentation.The reported gestational age is 33 weeks 5 days. The heart [id number] beats per minute. FINDINGS: TONE: 1 or [...] Bolanos M.D. 01/04/2025 11:36 AM Dictation Location: [place] [address] Electronically authenticated by: [id number] Y Date: 1:36 Dictated By: Lise Bolanos M.D. Signed By:01/04/25 1139 DD/ 1136 TD/TT: Product Safety Expert: us Norbert Vega DO CLINISYNC IMAGING Final Result * US OB GROWTH (12/21/2024 11:41 AM EDT) Anatomical Region Laterality Modality Other 12/21/2024 11:4 1 AM EDT Narrative 12/21/2024 11:43 AM EDT The [address] [address] Ultrasound Report Signed Patient: JANNIE SANON MR#: [id number] : 1985 Acct:[id number] Age/Sex: 39 / F ADM Date: 12/21/24 Loc: US Attending Dr: Norbert Vega D.O. Ordering Physician: Norbert Vega D.O. Date of Service: 12/21/24 Procedure(s): US OB growth Accession Number(s): [id number] cc: Norbert Vega D.O.; Darshan Watts M.D. The [place] [address] Patient Name: JANNIE SANON MRN: [id number] date: 1985 Sex: F Assigned Patient Location: [facility] Current Patient Location: Accession/Order Number: [id number] Exam Date: 12/21/2024 11:39 Report Date: 12/21/2024 [...] Metzger M.D. 12/21/2024 11:41 AM Dictation Location: [place] [address] Electronically authenticated by: [id number] Y Date: 12/21/2024 11:41 Dictated By: Jonah Metzger M.D. Signed By: 12/21/24 1143 DD/ 1141 TD/TT: Product Safety Expert: Procedure Note Radiology, Radiologist, MD - 12/21/2024 [place] [address] Ultrasound Report Signed Patient: JANNIE SANON RMR#: [id number] : 1985Acct:[id number] Age/Sex: 39 / FADM Date: 12/21/24 Loc: US Attending Dr: Norbert Vega D.O. Ordering Physician: Norbert Vega D.O. Date of Service: 12/21/24 Procedure(s): US OB growth Accession Number(s): [id number] cc: Norbert Vega D.O.; Darshan Watts M.D. The [place] [address] Patient Name: JANNIE SANON MRN: [id number] date: 1985 Sex: F Assigned Patient Location: [facility] Current Patient Location: Accession/Order Number: [id number] Exam Date: 12/21/2024 11:39 Report Date: 12/21/2024 [...] Metzger M.D. 12/21/2024 11:41 AM Dictation Location: [place] [address] Electronically authenticated by: [id number] Y Date: 1:41 Dictated By: Jonah Metzger M.D. Signed By:12/21/24 1143 DD/ 1141 TD/TT: Product Safety Expert: us Norbert Silvia DO [facility] IMAGING Final [...] II, MD, PHD at 13-Dec-2024 08:39:30 AM [facility] Procedure Note Tl Sharp MD - 12/13/2024 EXAM: US OB FOLLOW [...] signed by TL SHARP II, MD, PHD [id number] 08:39:30 AM [facility] Norbert Vega DO [facility] OB US PROCEDURES Final Resul t * [...] Narrative CLINISYNC - 12/09/2024 3:18 PM EDT Profiterozio DO CLINISYNC Final Result Performing Organization Address [facility] de Phone Number CLINISYNC TBH * (ABNORMAL) [...] Narrative CLINISYNC - 12/09/2024 3:18 PM EDT Beatpackingo DO CLINISYNC Final Result Performing Organization Address [facility] de Phone Number CLINCARMEN TBH * TBH UA (CLEAN/CATCH) HALL DIRECTOR/MICRO IF IND. (11/30/2024 4:48 PM EDT) COLOR [...] us Norbert Silvia DO CLINISYNC Final Result [facility] TB * GLUCOSE 1 HOUR (10/23/2024 2:18 PM EDT) GLUCOSE 1 HOUR 106 <130 mg/dL TBH 10/23/2024 2:18 PM EDT 10/23/2024 2:20 PM EDT Narrative CLINISYNC - 10/23/2024 2:34 PM EDT Norbert Silvia DO LAB BLOOD ORDERABLES Final Resul t Performing Organization Address [facility] Co de Phone Number CLINMAEGANCO TB * (ABNORMAL) ALL CBC WITH AUTO DIFF (10/23/2024 2:18 PM EDT) Pathologist [facility] TB WBC 9.3 4.0 - 11.0 10 [...] Narrative CLINISYNC - 10/23/2024 2:26 PM EDT Norbert Silvia DO CLINISYNC Final Result Performing Organization Address [facility] Co de Phone Number CLINISYNC TB * Pap Smear (12/21/2022 12:00 AM EDT) Swab Cervical swab / Unknown Norbert Silvia DO LAB CYTOLOGY ORDERABLES Final Re sult EXTERNAL LAB from Last 3 Months or Most Recently Relevant to Health Maintenance Insurance [facility] [place]ICAID [place] Care Teams Thoroughbred Horse Farm Manager Relationship Specialty Start Date End Date Darshan Watts MD [address] [place] [address] PCP - General Family Medicine 12/28/22
--- OUTSIDE RECORDS SUMMARY | 2025-01-18 09:13 | XMS_ITS | Encounter Summary ---
Author Organization [facility] Address [address] [place] [address] Care Team Providers Care Clutch Specialist Name Role Phone Darshan Watts MD Primary Care Provider [phone] Encounter Details Date Type Department Care Team (Late st Contact Info) Description 10/10/2024 Abstract [facility] [address] [place] [address] Kannan Vega, DO [address] [place] [address] Parris [place], [facility]11 Social History Tobacco Use Types Packs/Day [...] 10:30 AM EDT Routine [facility] [address] [place] [address] Kannan Vega, DO [facility] [place], [facility]11 documented as of this encounter Visit Diagnoses Not on filedocumented in this encounter Care Teams Clutch Specialist Relationship Specialty Start Date End Date Darshan Watts MD [address] [place] [address] PCP - General Family Medicine 12/28/22 documented as of this encounter
--- OUTSIDE RECORDS SUMMARY | 2025-01-18 09:13 | XMS_ITS | Encounter Summary ---
Author Organization [facility] Address [address] [place] [address] Care Team Providers Care Medical Appointment Clerk Name Role Phone Darshan Watts MD Primary Care Provider [phone] Encounter Details Date Type Department Care Team (Late st Contact Info) Description 07/28/2024 Abstract [facility] [address] [place] [address] Kannan Vega, DO [address] [place] [address] Parris [place], [facility]11 Social History Tobacco Use Types Packs/Day Years [...] Routine [facility] [address] [place] [address] Kannan Vega, DO [facility] [place], [facility]11 documented as of this encounter Visit Diagnoses Not on filedocumented in this encounter Care Teams Medical Appointment Clerk Relationship Specialty Start Date End Date Darshan Watts MD [address] [place] [address] PCP - General Family Medicine 12/28/22 documented as of this encounter
[2025-01-18 09:53] VITALS: BP 128/86; PULSE 81
== END 2025-01-18 10:25 | disposition home or self-care (01) ==
LOC: US 09:11 → FBC 09:14
PROVIDERS: PCP Family Medicine; Visit Provider Obstetrics & Gynecology
DX: O09.523 Supervision of elderly multigravida, third trimester (principal); Z3A.35 35 weeks gestation of pregnancy
CPT/HCPCS: 76818

== ENCOUNTER 2025-01-22 11:57 | Outpatient (OUT) | payer MEDICAID, SELFPAY ==
--- OUTSIDE RECORDS SUMMARY | 2023-11-22 10:24 | XMS_ITS | Continuity of Care Document ---
Author Organization [facility] Address [address] [place] [address] Phone Care Team Providers Care Personal Trainer Name Role Phone Macario Pichardo DMD Unavailable [...] Diagnoses Date Provider Providers Copied on Encounter [facility], [address] [place] [address], [id number], [place] tel:[phone] Dental Clinic er (chief complaint) Body mass index [BMI] 33.0-33.9, adultEncounter for screening for dental disorders Kylee Sorto. [address] [place] [address], [id number] , [place]. tel:[phone] Family History Family Member Type Diagnosis Age At Onset No Information Payers Payer name Insurance type Covered republican ID Authoriza tion(s) D Medicaid [facility] [id number] Social History Type Description Quantity Date Captured [...]
--- OUTSIDE RECORDS SUMMARY | 2025-01-08 10:10 | XMS_ITS | Encounter Summary ---
Author Organization [facility] Address [address] [place] [address] Care Team Providers Care Machine Adjuster Helper Name Role Phone Darshan Watts MD Primary Care Provider [phone] Reason for Visit * Reason Comments Routine Visit Encounter Details Date Type Department Care Team (Late st Contact Info) Description 01/08/2025 10:10 AM EDT Routine [facility] [address] [place] [phone] Kannan Vega, DO [address] [facility] [address] [place] [id number] Third trimester ([facility]); 34 weeks gestation of ([facility]) Social History Tobacco Use Types Packs/Day Years [...] LOW TRANSVERSE x4 PAP SMEAR 06/18/2021 negative [place] DILATION & CURETTAGE DX&/THER NONOBSTETRIC TONSILLECTOMY TUBAL [...] nursing note reviewed. Exam conducted with a manager client support present. Vitals: Estimated body mass index is [...] documented in this encounter Plan of Treatment Not on file documented as of this encounter Procedures Procedure Name Priority Date/Time Associated Diagnosis Comments POCT URINALYSIS DIPSTICK Routine 01/08/2025 10:45 AM EDT Third trimester ([facility]) 34 weeks gestation of ([facility]) documented in this encounter Results * [...] this encounter Visit Diagnoses Diagnosis Third trimester ([facility]) state, incidental 34 weeks gestation of ([facility]) documented in this encounter Care Teams Machine Adjuster Helper Relationship Specialty Start Date End Date Darshan Watts MD [address] [place] [address] PCP - General Family Medicine 12/28/22 documented as of this encounter
--- OUTSIDE RECORDS SUMMARY | 2025-01-15 10:00 | XMS_ITS | Encounter Summary ---
Author Organization [facility] Address [address] [place] [address] Care Team Providers Care Client Development Consultant Name Role Phone Darshan Watts MD Primary Care Provider [phone] Reason for Visit * Reason Comments Routine Visit Encounter Details Date Type Department Care Team (Late st Contact Info) Description 01/15/2025 10:00 AM EDT Routine [facility] OB [address] [place] [phone] Kannan Vega, DO [address] [facility] [address] [place] [id number] 35 weeks gestation of ([facility]); Third trimester ([facility]) Social History Tobacco Use Types Packs/Day [...] Reading Time Taken Comments Blood Pressure 110/68 01/15/2025 10:26 AM EDT Pulse - - Temperature - - Respiratory Rate - - Oxygen Saturation - - Inhaled Oxygen Concentration - - Weight 71.3 kg (157 lb 1.9 oz) 01/15/2025 10:26 AM EDT Height - - Body Mass Index 30.69 03/01/2023 1:24 PM EDT documented in this encounter Progress Notes * JACQUELINE Pacheco - 01/15/2025 10:00 AM EDT Reason for Appointment: Patient ID: Jannie Sanon is a 39 y.o. female who presents for Routine Visit Patient presents today for Return OB appointment. MEDICATIONS Current Outpatient Medications Medication Instructions aspirin 81 mg, Daily buPROPion XL (WELLBUTRIN XL) 300 mg, Every morning cholecalciferol (Vitamin D-3) 25 MCG (1000 UT) capsule Daily co-enzyme Q-10 30 mg, Daily iron polysaccharides (PROFE) 391.3 mg, Oral, Daily omega-3 (FISH OIL) 300 mg, Daily MV-Min-Fe Fum-FA-DHA ( 1 PO) 1 tablet, Daily simvastatin (Zocor) 40 MG tablet 1 tablet, Every evening ALLERGIES Allergies Allergen Reactions Cefaclor Anaphylaxis Penicillin [...] LOW TRANSVERSE x4 PAP SMEAR 06/18/2021 negative [place] DILATION & CURETTAGE DX&/THER NONOBSTETRIC TONSILLECTOMY TUBAL LIGATION reversal REVIEW OF SYSTEMS Review of Systems: Review of Systems Constitutional: Negative. HENT: Negative. Eyes: Negative. Respiratory: Negative. Cardiovascular: Negative. Gastrointestinal: Negative. Genitourinary: Negative. Musculoskeletal: Negative. Skin: Negative. Neurological: Negative. All other systems reviewed and are negative. Hematological: Negative. Endocrine: Negative. Allergic/Immunologic: Negative. OBJECTIVE Objective: Physical Exam Constitutional: Appearance: Normal appearance. She is normal weight. HENT: Head: Normocephalic. Cardiovascular: Rate and Rhythm: Normal rate. Pulses: Normal pulses. Pulmonary: Effort: Pulmonary effort is normal. Breath sounds: Normal breath sounds. Abdominal: Palpations: Abdomen is soft. Musculoskeletal: General: Normal range of motion. Neurological: General: No focal deficit present. Mental Status: She is alert and oriented to person, place, and time. Psychiatric: Mood and Affect: Mood normal. Behavior: Behavior normal. Thought Content: Thought content normal. Judgment: Judgment normal. Vitals and nursing note reviewed. Vitals: Estimated body mass index is 30.69 kg/m?? as calculated from the following: Height as of 03/01/23: 5'. Weight as of this encounter: 157 lb 1.9 oz. BP: 110/68 Patient's last menstrual period was 05/13/2024. ASSESSMENT & PLAN ICD-10-CM 1. 35 weeks gestation of Z3A.35 POCT urinalysis dipstick manually resulted 2. Third trimester Z34.93 POCT urinalysis dipstick manually resulted Return OB: Patient presents today for a routine obstetrics appointment. Patient is currently 35w2d . Patient states she is doing well but has complaints of being tired due to current . Patient has verbalizes frequent movement. labor precautions was discussed/given and patient was instructed to perform kick counts three times a day. Orders Placed This Encounter Procedures POCT urinalysis dipstick manually resulted Follow Up: Patient is to return to office in 1 week for routine OB appointment. Documented by JACQUELINE Pacheco on behalf of: Kannan Vega DO documented in this encounter Plan of Treatment Not on file documented as of this encounter Procedures Procedure Name Priority Date/Time Associated Diagnosis Comments POCT URINALYSIS DIPSTICK Routine 01/15/2025 10:31 AM EDT 35 weeks gestation of ([facility]) Third trimester ([facility]) documented in this encounter Results * (ABNORMAL) POCT urinalysis dipstick manually resulted (01/15/2025 10:31 AM EDT) Color, UA Yellow Clarity, UA Clear Glucose, UA Negative Negative - 2000(110) ++++ mg/dL Bilirubin, UA Negative Negative - 4(70) +++ mg/dL Ketones, UA Negative Negative - 160(16) ++++ mg/dL Spec Grav, UA 1.020 1 - 1.03 Blood, UA Negative Negative - 50 Doroteo/mcL pH, UA 6.5 5 - 9 Protein, UA Trace Negative - 2000(20) ++++ mg/dL Urobilinogen, UA 0.2 0.2 - 12 mg/dL Leukocytes, UA Negative Negative - 500+++ Celina/mcL Nitrite, UA Negative Negative - Positive Urine 01/15/2025 10:3 1 AM EDT Kannan Vega DO POINT OF CARE TEST ENTER/EDIT OR DERABLES Final Result documented in this encounter Visit Diagnoses Diagnosis 35 weeks gestation of ([facility]) Third trimester ([facility]) state, incidental documented in this encounter Care Teams Client Development Consultant Relationship Specialty Start Date End Date Darshan Watts MD [address] [place] [address] PCP - General Family Medicine 12/28/22 documented as of this encounter
--- OUTSIDE RECORDS SUMMARY | 2025-01-22 10:30 | XMS_ITS | Encounter Summary ---
Author Organization [facility] Address [address] [place] [address] Care Team Providers Care Director Of Real Estate Name Role Phone Darshan Watts MD Primary Care Provider [phone] Reason for Visit * Reason Comments Routine Visit Encounter Details Date Type Department Care Team (Late st Contact Info) Description 01/22/2025 10:30 AM EDT Routine [facility] [address] [place] [address] Kannan Vega, DO [address] [facility] [place] [address] 36 weeks gestation of ([facility]); Third trimester ([facility]) Social History Tobacco Use Types Packs/Day Years [...] STREP WITH SUSCEPTIBLITY Lab Routine Third trimester ([facility]) Expected: 01/22/2025, Expires: 01/22/2026 documented as of this encounter Procedures Procedure Name Priority Date/Time Associated Diagnosis Comments POCT URINALYSIS DIPSTICK Routine 01/22/2025 11:06 AM EDT 36 weeks gestation of ([facility]) documented in this encounter Results * (ABNORMAL) [...] documented in this encounter Visit Diagnoses Diagnosis 36 weeks gestation of ([facility]) Third trimester ([facility]) state, incidental documented in this encounter Care Teams Director Of Real Estate Relationship Specialty Start Date End Date Darshan Watts MD [address] [place] [address] PCP - General Family Medicine 12/28/22 documented as of this encounter
--- OUTSIDE RECORDS SUMMARY | 2025-01-22 11:59 | XMS_ITS | Encounter Summary ---
Author Organization [facility] Address [address] [place] [address] Care Team Providers Care Log Deck Tender Name Role Phone Darshan Watts MD Primary Care Provider [phone] Encounter Details Date Type Department Care Team (Late st Contact Info) Description 01/10/2025 Telephone [facility] [address] [facility] [place] [address] Kannan Vega, DO [address] [place], [facility] Social History Tobacco Use Types Packs/Day [...] on file documented as of this encounter Visit Diagnoses Diagnosis Anemia during in second trimester ([facility]) documented in this encounter Care Teams Log Deck Tender Relationship Specialty Start Date End Date Darshan Watts MD [address] [place] [address] PCP - General Family Medicine 12/28/22 documented as of this encounter
--- OUTSIDE RECORDS SUMMARY | 2025-01-22 11:59 | XMS_ITS | Encounter Summary ---
Author Organization [facility] Address [address] [place] [address] Care Team Providers Care Glazier Stained Glass Name Role Phone Darshan Watts MD Primary Care Provider [phone] Encounter Details Date Type Department Care Team (Late st Contact Info) Description 11/11/2023 Abstract [facility] BCP OB [address] [address] Gemma Dumont LPN [address] [place] [address] Social History Tobacco Use Types Packs/Day Years [...] on filedocumented in this encounter Care Teams Glazier Stained Glass Relationship Specialty Start Date End Date Darshan Watts MD [address] [place] [address] PCP - General Family Medicine 12/28/22 documented as of this encounter
--- OUTSIDE RECORDS SUMMARY | 2025-01-22 11:59 | XMS_ITS | Encounter Summary ---
Author Organization [facility] Address [address] [place] [address] Care Team Providers Care Environmental Field Technician Name Role Phone Darshan Watts MD Primary Care Provider [phone] Encounter Details Date Type Department Care Team (Late st Contact Info) Description 01/22/2025 Bamboo flowsheet [facility] BCP OB [address] [address] Kannan Vega, DO [address] [facility] [address] [place], [place] [id number] Social History Tobacco Use Types Packs/Day Years [...] on filedocumented in this encounter Care Teams Environmental Field Technician Relationship Specialty Start Date End Date Darshan Watts MD [address] [place] [address] PCP - General Family Medicine 12/28/22 documented as of this encounter
--- OUTSIDE RECORDS SUMMARY | 2025-01-22 11:59 | XMS_ITS | Encounter Summary ---
Author Organization [facility] Address [address] [place] [address] Care Team Providers Care Examination Scorer Name Role Phone Darshan Watts MD Primary Care Provider [phone] Encounter Details Date Type Department Care Team [...] on filedocumented in this encounter Care Teams Examination Scorer Relationship Specialty Start Date End Date Darshan Watts MD [address] [facility] [place] [address] PCP - General Family Medicine 12/28/22 documented as of this encounter
--- OUTSIDE RECORDS SUMMARY | 2025-01-22 11:59 | XMS_ITS | Encounter Summary ---
Author Organization [facility] Address [address] [place] [address] Care Team Providers Care Sr. Manager Marketing Name Role Phone Darshan Watts MD Primary Care Provider [phone] Encounter Details Date Type Department Care Team (Late st Contact Info) Description 03/03/2024 Abstract [facility] OB [address] [place] [phone] Kannan Vega, DO [address] [facility] [place] [address] Social History Tobacco Use Types Packs/Day Years [...] on filedocumented in this encounter Care Teams Sr. Manager Marketing Relationship Specialty Start Date End Date Darshan Watts MD [address] [facility] [place] [address] PCP - General Family Medicine 12/28/22 documented as of this encounter
--- OUTSIDE RECORDS SUMMARY | 2025-01-22 11:59 | XMS_ITS | Encounter Summary ---
Author Organization [facility] Address [address] [place] [address] Care Team Providers Care Jingle Writer Name Role Phone Darshan Watts MD Primary Care Provider [phone] Encounter Details Date Type Department Care Team (Late st Contact Info) Description 01/18/2025 Clinisync Result Encounter [facility] External Department Unsolicited Norbert Vega, DO [address] [facility] [address] [place], [place] [phone] Social History Tobacco Use Types Packs/Day Years [...] Diagnosis Comments US OB BPP W NON-STRESS 01/18/2025 11:16 AM EDT documented in this encounter Results * US OB BPP W NON-STRESS (01/18/2025 11:16 AM EDT) Anatomical Region Laterality Modality Other 01/18/2025 11:1 6 AM EDT Narrative 01/19/2025 9:28 [place] [address] Ultrasound Report Signed Patient: LB SANON MR#: [id number] : 1985 Acct:[id number] Age/Sex: 39 / F ADM Date: 01/18/25 Loc: US Attending Dr: Norbert Vega D.O. Ordering Physician: Norbert Vega D.O. Date of Service: 01/18/25 Procedure(s): US OB BPP w non-stress Accession Number(s): [id number] cc: oNrbert Vega D.O.; Darshan Watts M.D. [address] [address] Patient Name: LB SANON MRN: [id number] date: 1985 Sex: F Assigned Patient Location: US Current Patient Location: Accession/Order Number: [id number] Exam Date: 01/18/2025 11:15 Report Date: 01/18/2025 11:16 At the request of: NORBERT VEGA DO Procedure: US OB BPP w non-stress BIOPHYSICAL PROFILE: CLINICAL INFORMATION: MULTIGRAVIDA OF AMA O09.523 COMPARISON: 01/04/2025 There is a single live intrauterine gestation in cephalic presentation. The reported gestational age is 35 weeks 5 days. The heart rate measures 129 beats per minute. FINDINGS: TONE: 1 or [...] greater than 2 cm [Y] 2/2 LILIANA: 10.9 cm. This is in low-normal range. Total score: 8/8 US/US OB BPP w non-stress IMPRESSION: NORMAL BIOPHYSICAL PROFILE. Impression dictated by: Lise Bolanos M.D. 01/18/2025 11:16 AM Dictation Location: [place] [address] Electronically authenticated by: [id number] Y Date: 01/18/2025 11:16 Dictated By: Lise Bolanos M.D. Signed By: 01/19/25 0928 DD/ 1116 TD/TT: Laser Printing Operator: Procedure Note Radiology, Radiologist, - 01/19/2025 [place] [address] Ultrasound Report Signed Patient: LB SANON RMR#: [id number] : 1985Acct:[id number] Age/Sex: 39 / FADM Date: 01/18/25 Loc: US Attending Dr: Norbert Vega D.O. Ordering Physician: Norbert Vega D.O. Date of Service: 01/18/25 Procedure(s): US OB BPP w non-stress Accession Number(s): [id number] cc: Norbert Vega D.O.; Darshan Watts M.D. The [address] [address] Patient Name: LB SANON MRN: [facility]:[id number] date: 1985 Sex: F Assigned Patient Location: Current Patient Location: Accession/Order Number: [id number] Exam Date: 01/18/2025 11:15 Report Date: 01/18/2025 11:16 At the request of: NORBERT VEGA DO Procedure: US OB BPP w non-stress BIOPHYSICAL PROFILE: CLINICAL INFORMATION: MULTIGRAVIDA OF AMA O09.523 COMPARISON: 01/04/2025 There is a single live intrauterine gestation in cephalic presentation.The reported gestational age is 35 weeks 5 days. The heart ratemeasures 129 beats per minute. FINDINGS: TONE: 1 or [...] greater than 2 cm [Y] 2/2 LILIANA: 10.9 cm. This is in low-normal range. Total score: 8/ US/US OB BPP w non-stress IMPRESSION: NORMAL BIOPHYSICAL PROFILE. Impression dictated by: Lise Bolanos M.D. 01/18/2025 11:16 AM Dictation Location: [place] [address] Electronically authenticated by: [id number] Y Date: 1:16 Dictated By: Lise Bolanos M.D. Signed By:01/19/25 0928 DD/ 1116 TD/TT: Laser Printing Operator: us Norbert Silvia DO [facility] Final Result documented in this encounter Visit Diagnoses Not on filedocumented in this encounter Care Teams Jingle Writer Relationship Specialty Start Date End Date aDrshan Watts MD [address] [place] [address] PCP - General Family Medicine 12/28/22 documented as of this encounter
--- OUTSIDE RECORDS SUMMARY | 2025-01-22 11:59 | XMS_ITS | Encounter Summary ---
Author Organization [facility] Address [address] [place] [address] Care Team Providers Care Automotive Instructor Name Role Phone Darshan Watts MD Primary Care Provider [phone] Encounter Details Date Type Department Care Team (Late st Contact Info) Description 11/01/2023 Clinisync Result Encounter [facility] External Department Unsolicited Norbert Vega, DO [address] [place] [address] Dr [place], [place] [address] Social History Tobacco Use Types Packs/Day Years [...] PM EDT Narrative 11/01/2023 12:55 PM EDT The [address] [address] Ultrasound Report Signed Patient: LB SANON MR#: [id number] : 1985 Acct:[id number] Age/Sex: 38 / F ADM Date: 11/01/23 Loc: US Attending Dr: Norbert Vega D.O. Ordering Physician: Norbert Vega D.O. Date of Service: 11/01/23 Procedure(s): US pelvis transvaginal Accession Number(s): [id number] cc: Norbert Vega D.O.; Darshan Watts M.D. The [place] [address] Patient Name: LB SANON MRN: [id number] date: 1985 Sex: F Assigned Patient Location: US Current Patient Location: Accession/Order Number: [id number] Exam Date: 11/01/2023 11:48 Report Date: 11/01/2023 [...] By: Perez Durbin M.D. Signed By: 11/01/23 1255 DD/ 1252 TD/TT: Security Operations Manager: Procedure Note Radiology, Radiologist, MD - 11/01/2023 [place] [address] Ultrasound Report Signed Patient: LB SANON RMR#: [id number] : 1985Acct:[id number] Age/Sex: 38 / FADM Date: 11/01/23 Loc: US Attending Dr: Norbert Vega D.O. Ordering Physician: Norbert Vega D.O. Date of Service: 11/01/23 Procedure(s): US pelvis transvaginal Accession Number(s): [id number] cc: Norbert Vega D.O.; Darshan Watts M.D. [place] [address] Patient Name: LB SANON MRN: [id number] date: 1985 Sex: F Assigned Patient Location: US Current Patient Location: US Accession/Order Number: [id number] Exam Date: 11/01/2023 11:48 Report Date: 11/01/2023 [...] Dictated By: Perez Durbin M.D. Signed By:11/01/23 1254 DD/ 1252 TD/TT: Security Operations Manager: us Norbert Vega DO [facility] Final Result documented in this encounter Visit Diagnoses Not on filedocumented in this encounter Care Teams Automotive Instructor Relationship Specialty Start Date End Date Darshan Watts MD [address] [place] [address] PCP - General Family Medicine 12/28/22 documented as of this encounter
--- OUTSIDE RECORDS SUMMARY | 2025-01-22 11:59 | XMS_ITS | Encounter Summary ---
Author Organization [facility] Address [address] [place] [address] Care Team Providers Care Assembly Line Machine Operator Name Role Phone Darshan Watts MD Primary Care Provider [phone] Encounter Details Date Type Department Care Team (Late st Contact Info) Description 01/15/2025 Bamboo flowsheet [facility] BCP OB [address] [place] [address] Kannan Vega, DO [address] [facility] [address] [place], [place] [address] Social History Tobacco Use Types Packs/Day Years [...] on filedocumented in this encounter Care Teams Assembly Line Machine Operator Relationship Specialty Start Date End Date Darshan Watts MD [address] [place] [address] PCP - General Family Medicine 12/28/22 documented as of this encounter
--- OUTSIDE RECORDS SUMMARY | 2025-01-22 12:00 | XMS_ITS | Encounter Summary ---
Author Organization [facility] tem Address [id number] [address] [place] [address] Care Team Providers Care Padding Gluer Name Role Phone Darshan Watts MD Primary Care Provider [phone] Encounter Details Date Type Department Care Team (Late st Contact Info) Description 09/08/2024 Orders Only Maternal- Medicine at [facility] [address] [place] [address] Kannan Vega, DO [address] [facility] [place] [address] Social History Tobacco Use Types Packs/Day Years [...] on filedocumented in this encounter Care Teams Padding Gluer Relationship Specialty Start Date End Date Darshan Watts MD PCP - General 04/04/18 documented as of this encounter
--- OUTSIDE RECORDS SUMMARY | 2025-01-22 12:00 | XMS_ITS | Encounter Summary ---
Author Organization [facility] Address [address] [place] [address] Care Team Providers Care College Or University Registrar Name Role Phone Darshan Watts MD Primary Care Provider [phone] Encounter Details Date Type Department Care Team (Late st Contact Info) Description 12/11/2024 Abstract [facility] OB [address] [facility] [place] [address] Kannan Vega, DO [address] [place] [address] Social History Tobacco Use Types Packs/Day Years [...] on filedocumented in this encounter Care Teams College Or University Registrar Relationship Specialty Start Date End Date Darshan Watts MD [address] [facility] [place] [address] PCP - General Family Medicine 12/28/22 documented as of this encounter
--- OUTSIDE RECORDS SUMMARY | 2025-01-22 12:00 | XMS_ITS | Encounter Summary ---
Author Organization [facility] Address [address] [place] [address] Care Team Providers Care Property Worker Name Role Phone Darshan Watts MD Primary Care Provider [phone] Encounter Details Date Type Department Care Team (Late st Contact Info) Description 12/25/2022 Abstract [facility] OB [address] [place] [address] Kannan Vega, DO [address] [facility] [place] [address] Social History Tobacco Use Types Packs/Day Years [...] on filedocumented in this encounter Care Teams Property Worker Relationship Specialty Start Date End Date Darshan Watts MD [address] [facility] [place] [address] PCP - General Family Medicine 12/28/22 documented as of this encounter
--- OUTSIDE RECORDS SUMMARY | 2025-01-22 12:00 | XMS_ITS | Encounter Summary ---
Author Organization [facility] Address [address] [place] [address] Care Team Providers Care Engineering Designer Name Role Phone Darshan Watts MD Primary Care Provider [phone] Encounter Details Date Type Department Care Team (Late st Contact Info) Description 08/23/[address] [facility] OB [address] [place] [address] Kannan Vega, DO [address] [place] [address] Social History Tobacco Use Types Packs/Day Years [...] on filedocumented in this encounter Care Teams Engineering Designer Relationship Specialty Start Date End Date Darshan Watts MD [address] [facility] [place] [address] PCP - General Family Medicine 12/28/22 documented as of this encounter
--- OUTSIDE RECORDS SUMMARY | 2025-01-22 12:00 | XMS_ITS | Encounter Summary ---
Author Organization [facility] Address [address] [place] [address] Care Team Providers Care Bait Tier Name Role Phone Darshan Watts MD Primary Care Provider [phone] Encounter Details Date Type Department Care Team (Late st Contact Info) Description 08/07/2024 Abstract [facility] OB [address] [place] [address] Kannan Vega, DO [address] [place] [address] Social History Tobacco Use Types Packs/Day Years [...] on filedocumented in this encounter Care Teams Bait Tier Relationship Specialty Start Date End Date Darshan Watts MD [address] [facility] [place] [address] PCP - General Family Medicine 12/28/22 documented as of this encounter
--- OUTSIDE RECORDS SUMMARY | 2025-01-22 12:00 | XMS_ITS | Encounter Summary ---
Author Organization [facility] Address [address] [place] [address] Care Team Providers Care Wood Bucker Name Role Phone Darshan Watts MD Primary Care Provider [phone] Encounter Details Date Type Department Care Team (Late st Contact Info) Description 09/20/2023 Clinisync Result Encounter [facility] External Department Unsolicited Norbert Vega, DO [address] [place] [address] Dr [place], [place] [address] Social History Tobacco Use Types Packs/Day Years [...] PM EST Narrative 09/20/2023 1:54 PM EST The [address] [address] Ultrasound Report Signed Patient: LB SANON MR#: [id number] : 1985 Acct:[id number] Age/Sex: 37 / F ADM Date: 09/20/23 Loc: US Attending Dr: Norbert Vega D.O. Ordering Physician: Norbert Vega D.O. Date of Service: 09/20/23 Procedure(s): US pelvis w/ transvaginal Accession Number(s): [id number] cc: Norbert Vega D.O.; Darshan Watts M.D. [place] [address] Patient Name: LB SANON MRN: [id number] date: 1985 Sex: F Assigned Patient Location: US Current Patient Location: Accession/Order Number: [id number] Exam Date: 09/20/2023 11:42 Report Date: 09/20/2023 [...] By: Perez Durbin M.D. Signed By: 09/20/23 1354 DD/ 1351 TD/TT: [place]: Procedure Note Radiology, Radiologist, MD - 09/20/2023 The [place] [address] Ultrasound Report Signed Patient: LB SANON RMR#: [id number] : 1985Acct:[id number] Age/Sex: 37 / FADM Date: 09/20/23 Loc: US Attending Dr: Norbert Vega D.O. Ordering Physician: Norbert Vega D.O. Date of Service: 09/20/23 Procedure(s): US pelvis w/ transvaginal Accession Number(s): [id number] cc: Norbert Vega D.O.; Darshan Watts M.D. The [place] [id number] Patient Name: LB SANON MRN: [id number] date: 1985 Sex: F Assigned Patient Location: US Current Patient Location: US Accession/Order Number: [id number] Exam Date: 09/20/2023 11:42 Report Date: 09/20/2023 [...] Dictated By: Perez Durbin M.D. Signed By:09/20/23 135 DD/ 1351 TD/TT: [place]: us Norbert Vega DO [facility] Final Result documented in this encounter Visit Diagnoses Not on filedocumented in this encounter Care Teams Wood Bucker Relationship Specialty Start Date End Date Darshan Watts MD [address] [place] [address] PCP - General Family Medicine 12/28/22 documented as of this encounter
--- OUTSIDE RECORDS SUMMARY | 2025-01-22 12:00 | XMS_ITS | Encounter Summary ---
Author Organization [facility] Address [address] [place] [address] Care Team Providers Care Hourly Shift Name Role Phone Darshan Watts MD Primary Care Provider [phone] Encounter Details Date Type Department Care Team (Late st Contact Info) Description 05/26/2023 Abstract [facility] [address] [facility] [address] [place] [address] Milagros Rose, [facility] [address] [place] [address] Social History Tobacco Use Types Packs/Day Years [...] on filedocumented in this encounter Care Teams Hourly Shift Relationship Specialty Start Date End Date Darshan Watts MD [address] [facility] [place] [address] PCP - General Family Medicine 12/28/22 documented as of this encounter
--- OUTSIDE RECORDS SUMMARY | 2025-01-22 12:00 | XMS_ITS | Encounter Summary ---
Author Organization [facility] Address [address] [place] [address] Care Team Providers Care Patient Accounts Specialist Name Role Phone Darshan Watts MD Primary Care Provider [phone] Encounter Details Date Type Department Care Team (Late st Contact Info) Description 07/28/2024 Abstract [facility] OB [address] [place] [phone] Kannan Vega, DO [address] [place], [place] [address] Social History Tobacco Use Types Packs/Day Years [...] on filedocumented in this encounter Care Teams Patient Accounts Specialist Relationship Specialty Start Date End Date Darshan Watts MD [address] [facility] [place] [address] PCP - General Family Medicine 12/28/22 documented as of this encounter
--- OUTSIDE RECORDS SUMMARY | 2025-01-22 12:00 | XMS_ITS | Encounter Summary ---
Author Organization [facility] Address [address] [place] [address] Care Team Providers Care Fabric Designer Name Role Phone Darshan Watts MD Primary Care Provider [phone] Encounter Details Date Type Department Care Team (Late st Contact Info) Description 11/08/2024 Abstract [facility] OB [address] [place] [phone] Kannan Vega, DO [address] [place] [address] Social History Tobacco Use Types Packs/Day Years [...] on filedocumented in this encounter Care Teams Fabric Designer Relationship Specialty Start Date End Date Darshan Watts MD [address] [facility] [place] [address] PCP - General Family Medicine 12/28/22 documented as of this encounter
--- OUTSIDE RECORDS SUMMARY | 2025-01-22 12:00 | XMS_ITS | Encounter Summary ---
Author Organization [facility] Address [address] [place] [address] Care Team Providers Care Security Systems Installer Name Role Phone Darshan Watts MD Primary Care Provider [phone] Encounter Details Date Type Department Care Team (Late st Contact Info) Description 10/10/2024 Abstract [facility] OB [address] [place] [phone] Kannan Vega, DO [address] [place] [address] Social History Tobacco Use Types Packs/Day Years [...] on filedocumented in this encounter Care Teams Security Systems Installer Relationship Specialty Start Date End Date Darshan Watts MD [address] [facility] [place] [address] PCP - General Family Medicine 12/28/22 documented as of this encounter
--- OUTSIDE RECORDS SUMMARY | 2025-01-22 12:00 | XMS_ITS | Encounter Summary ---
Author Organization [facility] Address [address] [place] [address] Care Team Providers Care Business Change Manager Name Role Phone Darshan Watts MD Primary Care Provider [phone] Encounter Details Date Type Department Care Team (Late st Contact Info) Description 07/27/2024 Clinisync Result Encounter [facility] External Department Unsolicited Norbert Vega, DO [address] [place] [address] Dr [place], [place] [address] Social History Tobacco Use Types Packs/Day Years [...] AM EST Narrative 07/27/2024 11:09 AM EST The [address] [address] Ultrasound Report Signed Patient: LB SANON MR#: [id number] : 1985 Acct:[id number] Age/Sex: 38 / F ADM Date: 07/27/24 Loc: US Attending Dr: Norbert Vega D.O. Ordering Physician: Norbert Vega D.O. Date of Service: 07/27/24 Procedure(s): US OB <= 14 weeks fetus Accession Number(s): [id number] cc: Norbert Vega D.O. The [place] [address] Patient Name: LB SANON MRN: [id number] date: 1985 Sex: F Assigned Patient Location: US Current Patient Location: Accession/Order Number: [id number] Exam Date: 07/27/2024 09:40 Report Date: 07/27/2024 [...] Signed By: 07/27/24 1109 DD/ 06 TD/TT: Single Ending Machine Operator: Procedure Note Radiology, Radiologist, MD - 07/27/2024 [place] [address] Ultrasound Report Signed Patient: LB SANON RMR#: [id number] : 1985Acct:[id number] Age/Sex: 38 / FADM Date: 07/27/24 Loc: US Attending Dr: Norbert Vega D.O. Ordering Physician: Norbert Vega D.O. Date of Service: 07/27/24 Procedure(s): US OB <= 14 weeks fetus Accession Number(s): [id number] cc: Norbert Vega D.O. The [address] [address] Patient Name: LB SANON MRN: [facility]:[id number] date: 1985 Sex: F Assigned Patient Location: Current Patient Location: US Accession/Order Number: [id number] Exam Date: 07/27/2024 09:40 Report Date: 07/27/2024 [...] 11:07 Dictated By: Perez Durbin M.D. Signed By:07/27/24 1109 DD/ 1107 TD/TT: Single Ending Machine Operator: us Norbert Vega DO [facility] Final Result documented in this encounter Visit Diagnoses Not on filedocumented in this encounter Care Teams Business Change Manager Relationship Specialty Start Date End Date Darshan Watts MD [address] [place] [address] PCP - General Family Medicine 12/28/22 documented as of this encounter
--- OUTSIDE RECORDS SUMMARY | 2025-01-22 12:00 | XMS_ITS | Clinical Summary ---
Author Organization [employer] s tem Address [id number] [address] [place] [address] Care Team Providers Care Burlesque Dancer Name Role Phone Darshan Watts MD Primary Care Provider [phone] Allergies Active Allergy Reactions Criticality Noted Date [...] by mouth in the morning. Active omega 1-yyb-oyr-fish oil (Fish OiL) 300-1,000 mg capsule Take [...] PM EDT Hospital Encounter [facility] - Ultrasound [address] [place] [address] Multigravida of advanced maternal age [...] 11:40 AM EDT) Anatomical Region Laterality Modality OB-CARPENTER MAINTENANCE Ultrasound 11/07/2024 10:0 2 AM EDT Narrative 11/07/2024 4:36 PM EDT NAME: PACO ASHER : 1985 SEX: F Accession Number: [id number] ORDERING PHYSICIAN: DM KANG REFERRING PHYSICIAN: NORBERT WILLIS Coding ----- --------- Procedures 28970: Follow-up Ultrasound, per fetus Indication ----- --------- Screening for follow-up survey, AMA- Supervision of elderly, Depression, Anxiety, Previous x4, Obesity in History ----- --------- OB History 9. Para 4 [id number] Current ----- --------- Cell free DNA Low [...] 1 lb 10 oz EFW by Hadlock ([id number]) Head / Face / Neck Biometry: Cephalic index 0.72 3% Nicolaides Material Handling Supervisor 1.5 mm CM 5.3 mm 23% Nicolaides Extremities / Bony Struc Biometry: FL / BPD 0.76 FL / HC 0.20 FL / AC 0.22 Tibia 39.0 mm 24w 6d 27% Juan Manuel Anatomy ----- --------- The following structures appear normal: Head/Neck: Cranium. Lateral ventricles. Cavum septi pellucidi. Cerebellum. Cisterna magna. Parenchyma. Face: Mandible. Orbits. Heart/Thorax: 4-chamber view. RVOT view. 7-oiroge-mrownec view. Aortic arch view. Bicaval view. Ductal [...] 4.4 cm. Recommendations ----- --------- Please see [facility] recommendations from prior clinical and/or ultrasound report documentation. Subsequent follow up or other follow up as clinically determined by primary OB provider unless otherwise specified by [facility]. Results forwarded to ordering provider so they can follow up with the patient as necessary. Procedure Note Damián Short MD - 11/07/2024 NAME: PACO ASHER : 1985 SEX: F Accession Number: [id number] ORDERING PHYSICIAN: DM KANG REFERRING PHYSICIAN: NORBERT WILLIS Coding ----- --------- Procedures 53238: Follow-up Ultrasound, per fetus Indication ----- --------- Screening for follow-up survey, AMA- Supervision of elderly, Depression,Anxiety, Previous x4, Obesity in History ----- --------- OB History 9. Para 4 [id number] Current ----- --------- Cell free DNA Low [...] 1 lb 10 oz EFW by Hadlock ([id number]) Head / Face / Neck Biometry: Cephalic index 0.72 3% Nicolaides Material Handling Supervisor 1.5 mm CM 5.3 mm 23% Spencerides Extremities / Bony Struc Biometry: FL / BPD 0.76 FL / HC 0.20 FL / AC 0.22 Tibia 39.0 mm 24w 6d 27% Juan Manuel Anatomy ----- --------- The following structures appear normal: Head/Neck: Cranium. Lateral ventricles. Cavum septi pellucidi. Cerebellum.Cisterna magna. Parenchyma. Face: Mandible. Orbits. Heart/Thorax: 4-chamber view. RVOT view. 2-cwtxrb-jqhtrxn view. Aorticarch view. Bicaval view. Ductal arch [...] 4.4 cm. Recommendations ----- --------- Please see [facility] recommendations from prior clinical and/or ultrasoundreport documentation. Subsequent follow up or other follow up as clinically determined byprimary OB provider unless otherwise specified by [facility]. Results forwarded to ordering provider so they can follow up with thepatient as necessary. us Dm Kang MD [facility] ORDERABLES Final Resul t from Last 3 Months Insurance [facility] MEDICAID Care Teams Burlesque Dancer Relationship Specialty Start Date End Date Darshan Watts MD PCP - General 04/04/18
--- OUTSIDE RECORDS SUMMARY | 2025-01-22 12:00 | XMS_ITS | Clinical Summary ---
Author Organization [facility] Address [address] [place] [address] Care Team Providers Care Manager Global Name Role Phone Darshan Watts MD Primary Care Provider [phone] Allergies Active Allergy Reactions Criticality Noted Date [...] Encounters Date Type Department Care Team Description 01/22/2025 10:30 AM EDT Routine [facility] [address] [place] [address] Norbert Vega, 36 weeks gestation of ([facility]); Third trimester ([facility]) 01/22/2025 Bamboo flowsheet [facility] [address] [place] [address] Norbert Vega, 01/18/2025 Clinisync Result Encounter [facility] External Department Unsolicited Norbert Vega, 01/16/2025 Travel 01/15/2025 10:00 AM EDT Routine [facility] [address] [place] [address] Norbert Vega, 35 weeks gestation of ([facility]); Third trimester ([facility]) 01/15/2025 Bamboo flowsheet [facility] [address] [place] [address] Norbert Vega, 01/10/20[address] [facility] [address] [place] [address] Norbert Vega, DO 01/09/2025 Travel 01/08/2025 10:10 AM EDT Routine [facility] [address] [place] [address] Norbert Vega, Third trimester ([facility]); 34 weeks gestation of ([facility]) 01/08/2025 Bamboo flowsheet [facility] OB [address] [place] [address] Norbert Vega, DO 01/04/2025 Clinisync Result Encounter [facility] External Department Unsolicited Norbert Vega, DO 01/01/2025 Travel 12/28/2024 Clinisync Result Encounter [facility] External Department Unsolicited Norbert Vega, DO 12/26/2024 9:00 AM EDT Routine [facility] OB [address] [place] [address] Norbert Vega, DO 32 weeks gestation of ([facility]); Third trimester ([facility]) 12/26/2024 Bamboo flowsheet [facility] OB [address] [place] [address] [place] [address] Norbert Vega, DO 12/21/2024 Travel 12/21/2024 Clinisync Result Encounter [facility] External Department Unsolicited Norbert Vega, DO 12/21/2024 Clinisync Result Encounter [facility] External Department Unsolicited Norbert Vega, DO 12/11/2024 8:30 AM EDT Routine [facility] OB [address] [place] [address] [place] [address] Norbert Vega, DO Third trimester ([facility]); 30 weeks gestation of ([facility]) 12/11/2024 8:00 AM EDT Ancillary Procedure [facility] OB [address] [place] [address] [place] [address] Multigravida of advanced maternal age in third trimester ([facility]) 12/11/2024 Abstract [facility] OB [facility] [place] [address] Norbert Vega, DO 12/09/2024 Clinisync Result Encounter [facility] External Department Unsolicited Norbert Vega, DO 11/30/2024 Clinisync Result Encounter [facility]OM[facility] External Department Unsolicited Norbert Vega, DO 11/27/2024 1:10 PM EDT Routine [facility] OB [address] [place] [address] Norbert Vega, Third trimester ([facility]); 28 weeks gestation of ([facility]); Multigravida of advanced maternal age in third trimester ([facility]); Anemia during in second trimester ([facility]) 11/27/2024 Bamboo flowsheet [facility] [address] [place] [address] Norbert Vega, 11/08/2024 Abstract [facility] [address] [place] [address] Norbert Vega, 11/01/2024 Telephone [facility] [address] [place] [address] Norbert Vega, 10/30/2024 2:50 PM EDT Routine [facility] [address] [place] [address] Norbert Vega, Anemia during in second trimester ([facility]); Second trimester ([facility]); 24 weeks gestation of ([facility]) 10/30/2024 Bamboo flowsheet [facility]OM[facility] [address] [place] [address] Norbert Vega, 2024 Travel 10/23/2024 Clinisync Result Encounter [facility] External Department Unsolicited Norbert Vega, from Last 3 Months Family [...] 8 oz) 01/22/2025 11:19 AM EDT Height 152.4 cm (5') 03/01/2023 1:24 PM EDT Body Mass Index 30.95 03/01/2023 1:24 PM EDT Plan of Treatment Health Maintenance Due Date Last Done Comments Influenza Vaccine (Season Ended) 2025 Cervical Cancer Screening 12/22/2027 HPV/Cotest 12/22/2027 Pap Smear 12/22/2027 12/21/2022 Procedures Procedure Name Priority Date/Time Associated Diagnosis Comments POCT URINALYSIS DIPSTICK Routine 01/22/2025 11:06 AM EDT 36 weeks gestation of ([facility]) US OB BPP W NON-STRESS 01/18/2025 11:16 AM EDT POCT URINALYSIS DIPSTICK Routine 01/15/2025 10:31 AM EDT 35 weeks gestation of ([facility]) Third trimester ([facility]) POCT URINALYSIS DIPSTICK Routine 01/08/2025 10:45 AM EDT Third trimester ([facility]) 34 weeks gestation of ([facility]) US OB BPP W NON-STRESS 01/04/2025 11:36 AM EDT US OB BPP W NON-STRESS 12/28/2024 10:16 AM EDT POCT URINALYSIS DIPSTICK Routine 12/26/2024 9:40 AM EDT 32 weeks gestation of ([facility]) Third trimester ([facility]) US OB GROWTH 12/21/2024 11:41 AM EDT US OB BPP W NON-STRESS 12/21/2024 11:39 AM EDT POCT URINALYSIS DIPSTICK Routine 12/11/2024 8:55 AM EDT Third trimester ([facility]) US OB FOLLOW UP TRANSABDOMINAL APPROACH Routine 12/11/2024 8:18 AM EDT Multigravida of advanced maternal age in third trimester ([facility]) [facility] URINE MICROSCOPIC ONLY Routine 12/09/2024 2:00 PM EDT TBH UA (CLEAN/CATCH) MICROSCOPIC IF INDICATE Routine 12/09/2024 2:00 PM EDT TBH UA (CLEAN/CATCH) SHOE REPAIRMAN/MICRO IF IND. Routine 11/30/2024 4:48 PM EDT POCT URINALYSIS DIPSTICK Routine 11/27/2024 1:28 PM EDT Third trimester ([facility]) POCT URINALYSIS DIPSTICK Routine 10/30/2024 3:13 PM EDT Second trimester ([facility]) GLUCOSE 1 HOUR Routine 10/23/2024 2:18 PM EDT ALL CBC WITH AUTO DIFF Routine 2:18 PM EDT PAP SMEAR Routine 12/21/2022 12:00 AM EDT from Last 3 Months or Most Recently Relevant to Health Maintenance Results * (ABNORMAL) POCT urinalysis dipstick manually resulted (01/22/2025 11:06 AM EDT) Only the most recent of7 resultswithin the time period is included. Color, [...] Positive Urine 01/22/2025 11:0 6 AM EDT us Norbert Vega DO POINT OF CARE TEST ENTER/EDIT OR DERABLES Edited Result - Final * US OB BPP W NON-STRESS (01/18/2025 11:16 AM EDT) Only the most recent of4 resultswithin the time period is included. Anatomical Region Laterality Modality Other 01/18/2025 11:1 6 AM EDT Narrative 01/19/2025 9:28 AM EDT [address] [address] Ultrasound Report Signed Patient: JANNIE SANON MR#: [id number] : 1985 Acct:[id number] Age/Sex: 39 / F ADM Date: 01/18/25 Loc: US Attending Dr: Norbert Vega D.O. Ordering Physician: Norbert Vega D.O. Date of Service: 01/18/25 Procedure(s): US OB BPP w non-stress Accession Number(s): [id number] cc: Norbert Vega D.O.; Darshan Watts M.D. [address] [address] Patient Name: JANNIE SANON MRN: [id number] date: 1985 Sex: F Assigned Patient Location: Current Patient Location: Accession/Order Number: [id number] Exam Date: 01/18/2025 11:15 Report Date: 01/18/2025 [...] Bolanos M.D. 01/18/2025 11:16 AM Dictation Location: [place] [address] Electronically authenticated by: [id number] Y Date: 01/18/2025 11:16 Dictated By: Lise Bolanos M.D. Signed By: 01/19/25 0928 DD/ 1116 TD/TT: Web Development Instructor: Procedure Note Radiology, Radiologist, MD - 01/19/[address] [address] Ultrasound Report Signed Patient: JANNIE SANON RMR#: [id number] : 1985Acct:[id number] Age/Sex: 39 / FADM Date: 01/18/25 Loc: US Attending Dr: Norbert Vega D.O. Ordering Physician: Norbert Vega D.O. Date of Service: 01/18/25 Procedure(s): US OB BPP w non-stress Accession Number(s): [id number] cc: Norbert Vega D.O.; Darshan Watts M.D. [place] [address] Patient Name: JANNIE SANON MRN: [facility]:[id number] date: 1985 Sex: F Assigned Patient Location: Current Patient Location: Accession/Order Number: [id number] Exam Date: 01/18/2025 11:15 Report Date: 01/18/2025 [...] Bolanos M.D. 01/18/2025 11:16 AM Dictation Location: [place] [address] Electronically authenticated by: [id number] Y Date: 1:16 Dictated By: Lise Bolanos M.D. Signed By:01/19/25 0928 DD/ 1116 TD/TT: Web Development Instructor: us Norbert Vega DO [facility] IMAGING Final Result * US OB GROWTH (12/21/2024 11:41 AM EDT) Anatomical Region Laterality Modality Other 12/21/2024 11:4 1 AM EDT Narrative 12/21/2024 11:43 AM EDT [address] [address] Ultrasound Report Signed Patient: JANNIE SANON MR#: [id number] : 1985 Acct:[id number] Age/Sex: 39 / F ADM Date: 12/21/24 Loc: US Attending Dr: Norbert Vega D.O. Ordering Physician: Norbert Vega D.O. Date of Service: 12/21/24 Procedure(s): US OB growth Accession Number(s): [id number] cc: Norbert Vega D.O.; Darshan Watts M.D. [place] [id number] Patient Name: JANNIE SANON MRN: [id number] date: 1985 Sex: F Assigned Patient Location: [facility] Current Patient Location: Accession/Order Number: [id number] Exam Date: 12/21/2024 11:39 Report Date: 12/21/2024 [...] Metzger M.D. 12/21/2024 11:41 AM Dictation Location: [employer] Electronically authenticated by: [id number] Y Date: 12/21/2024 11:41 Dictated By: Jonah Metzger M.D. Signed By: 12/21/24 1143 DD/ 1141 TD/TT: Web Development Instructor: Procedure Note Radiology, Radiologist, - 12/21/2024 [place] [address] Ultrasound Report Signed Patient: JANNIE SANON RMR#: [id number] : 1985Acct:[id number] Age/Sex: 39 / FADM Date: 12/21/24 Loc: US Attending Dr: Norbert Vega D.O. Ordering Physician: Norbert Vega D.O. Date of Service: 12/21/24 Procedure(s): US OB growth Accession Number(s): [id number] cc: Norbert Vega D.O.; Darshan Watts M.D. The [place] [address] Patient Name: JANNIE SANON MRN: [id number] date: 1985 Sex: F Assigned Patient Location: [facility] Current Patient Location: Accession/Order Number: [id number] Exam Date: 12/21/2024 11:39 Report Date: 12/21/2024 [...] Metzger M.D. 12/21/2024 11:41 AM Dictation Location: [place] [address] Electronically authenticated by: [id number] Y Date: 1:41 Dictated By: Jonah Metzger M.D. Signed By:12/21/24 1143 DD/ 1141 TD/TT: Web Development Instructor: us Norbert Silvia DO [facility] Final Result * US OB follow up transabdominal approach (12/11/2024 8:18 AM EDT) Anatomical Region Laterality Modality Body Ultrasound 12/13/2024 8:4 1 AM EDT Narrative 12/13/2024 8:41 AM EDT [...] II, MD, PHD at 13-Dec-2024 08:39:30 AM [facility] Procedure Note Tl Sharp MD - [...] signed by TL SHARP II, MD, PHD [id number] 08:39:30 AM [facility] us Norbert Silvia DO [facility] OB US PROCEDURES Final Resul t * [...] DO CLINISYNC Final Result Performing Organization Address [facility]/ZIP Co de Phone Number CLINMAEGANNC TB[facility] * (ABNORMAL) TBH UA (CLEAN/CATCH) MICROSCOPIC [...] DO CLINISYNC Final Result Performing Organization Address [facility]/ZIP Co de Phone Number MARYNC TB[facility] * TBH UA (CLEAN/CATCH) SHOE REPAIRMAN/MICRO IF IND. (11/30/2024 4:48 PM EDT) COLOR [...] DO CLINISYNC Final Result Performing Organization Address [facility] Co de Phone Number CLINISYNC TB * GLUCOSE 1 HOUR (10/23/2024 2:18 PM EDT) GLUCOSE 1 HOUR 106 <130 mg/dL TBH 10/23/2024 2:18 PM EDT 10/23/2024 2:20 PM EDT Narrative CLINISYNC - 10/23/2024 2:34 PM EDT Norbert Silvia DO LAB BLOOD ORDERABLES Final Resul t Performing Organization Address [facility] de Phone Number CLINISYNC TB * (ABNORMAL) ALL CBC WITH AUTO DIFF (10/23/2024 2:18 PM EDT) Pathologist [facility] TB WBC 9.3 4.0 - 11.0 10 [...] DO CLINISYNC Final Result Performing Organization Address [facility]/State/ZIP Co de Phone Number CLINISYNC [facility] * Pap Smear (12/21/2022 12:00 AM EDT) Swab Cervical swab / Unknown Norbert Silvia DO LAB CYTOLOGY ORDERABLES Final Re sult EXTERNAL LAB from Last 3 Months or Most Recently Relevant to Health Maintenance Insurance [facility] MEDICAID [place] Care Teams Manager Global Relationship Specialty Start Date End Date Darshan Watts MD [address] [place] [address] PCP - General Family Medicine 12/28/22
--- OUTSIDE RECORDS SUMMARY | 2025-01-22 12:00 | XMS_ITS | Encounter Summary ---
Author Organization [facility] Address [address] [place] [address] Care Team Providers Care Slate Cutter Name Role Phone Darshan Watts MD Primary Care Provider [phone] Encounter Details Date Type Department Care Team (Late st Contact Info) Description 01/08/2025 Bamboo flowsheet [facility] [address] [place] [address] Kannan Vega, DO [address] [place], [place] [id number] Social History Tobacco Use Types Packs/Day Years [...] on filedocumented in this encounter Care Teams Slate Cutter Relationship Specialty Start Date End Date Darshan Watts MD [address] [place] [address] PCP - General Family Medicine 12/28/22 documented as of this encounter
--- OUTSIDE RECORDS SUMMARY | 2025-01-22 12:00 | XMS_ITS | Encounter Summary ---
Author Organization [facility] Address [address] [place] [address] Care Team Providers Care Nurse Coordinator Name Role Phone Darshan Watts MD Primary Care Provider [phone] Encounter Details Date Type Department Care Team (Late st Contact Info) Description 10/10/2024 Abstract [facility] [address] [place] [address] Kannan Vega, DO [address] [address] Social History Tobacco Use Types Packs/Day Years [...] on filedocumented in this encounter Care Teams Nurse Coordinator Relationship Specialty Start Date End Date Darshan Watts MD [address] [facility] [place] [address] PCP - General Family Medicine 12/28/22 documented as of this encounter
[2025-01-22 12:16] VITALS: BP 113/77; PULSE 82
== END 2025-01-22 12:40 | disposition home or self-care (01) ==
LOC: FBCO 11:57 → FBC 12:12
PROVIDERS: PCP Family Medicine; Visit Provider Obstetrics & Gynecology
DX: O09.523 Supervision of elderly multigravida, third trimester (principal); Z3A.36 36 weeks gestation of pregnancy
CPT/HCPCS: 59025; 87081

== ENCOUNTER 2025-01-22 20:00 | Outpatient (REF) | payer MEDICAID, SELFPAY ==
--- OUTSIDE RECORDS SUMMARY | 2025-01-22 20:27 | XMS_ITS | CCD ---
Author Organization [facility] Care Team Providers Care Code Enforcement Officer Name Role Phone Gloria Hayden Unavailable RAY [...] DR TOUSSAINT Attending Unavailable HOY ., DR KUMAIR Primary Care Unavailable SILVIA ., DR TOUSSAINT [...] HOY ., DR KUMARI Primary Care Unavailable [place], DR PEREZ Luther Consulting Unavailable SILVIA ., DR TOUSSAINT Attending Unavailable SILVIA ., DR TOUSSAINT Consulting Unavailable HOY ., DR KUMARI Primary Care Unavailable [place], DR PEREZ Luther Consulting Unavailable SILVIA ., DR TOUSSAINT Admitting Unavailable SILVIA ., DR TOUSSAINT Attending Unavailable SILVIA ., DR TOUSSAINT Consulting Unavailable SILVIA ., DR TOUSSAINT Admitting Unavailable HOY ., DR KUMARI Primary Care Unavailable [place], DR PEREZ Luther Consulting Unavailable SILVIA ., [...] Unavailable SILVIA ., DR TOUSSAINT Attending Unavailable SILIVA ., DR TOUSSAINT Admitting Unavailable Quoc Watts MD Primary Care Provider [phone] Norbert Vega Attending Unavailable Silvia, Norbert Admitting Unavailable Quoc Watts MD Primary Care Provider [phone] GEN KANG Attending Unavailable SILVIA, NORBERT R Referring Unavailable QUOC WATTS Primary Care Unavailable SILVIA, NORBERT R Referring Unavailable QUOC WATTS Primary Care Unavailable SILVIA, NORBERT R. Referring Unavailable QUOC WATTS Primary Care Unavailable Quoc Watts MD Primary Care Provider [phone] Quoc Watts MD Primary Care Provider [phone] SILVIA, NORBERT Attending Unavailable SILVIA, NORBERT Attending Unavailable SILVIA, NORBERT Attending Unavailable SILVIA, NORBERT Attending Unavailable SILVIA, NORBERT Attending Unavailable SILVIA, NORBERT Attending Unavailable SILVIA, NORBERT Attending Unavailable SILVIA, NORBERT Attending Unavailable Allergies Allergy Classification Reported Allergen(s) Allergy Type Date of Onset Reaction(s) Facility (20 sources) Penicillin G Drug Allergy 10-31-19 25 Anaphylaxis fflick Other (1 source) Cefaclor Drug Allergy [facility] Repository (6 sources) Penicillins; Translations: [PENICILLINS] Drug allergy (disorder) 01-26-20 16 [facility] Repository (20 sources) Penicillins Drug Intolerance 10-21-19 19 Unknown [facility] Healthcare Work Phone: (1 source) Penicillin Drug Allergy 11-21-19 23 [facility] Repository (1 source) Penicillins Propensity to adverse reactions to drug 10-21-19 19 [facility] (20 sources) Cefaclor Drug Allergy 10-31-19 25 Anaphylaxis [facility] Healthcare (20 sources) Sulfamethoxazole / Trimethoprim Drug Allergy 10-31-19 25 [facility] Medications Current Medications Medication Drug Class(es) Dates [...] sources) Serotonin Reuptake Inhibitor Start: 06-28-2024 End: 01-15-2025 take 1 tablet by mouth once daily [...] tablet Orally Once a day Active omega 2-zqo-sya-fish oil (Fish OiL) 300-1,000 mg capsule (3 sources) take 300-1000 mg by mouth once daily omega 1-khf-tbd-fish oil (Fish OiL) 300-1,000 mg capsule Take 1 capsule by mouth once daily. Active ondansetron 4 mg disintegrating oral tablet (2 sources) Serotonin-3 Receptor Antagonist Start: 01-22-2025 End: 02-21-2025 take 1 tablet by mouth every six hours for nausea ondansetron ODT (Zofran-ODT) 4 MG disintegrating tablet Indications: Vomiting affecting (HHS-HCC) Take 1 tablet (4 mg) by mouth every 6 (six) hours if needed for nausea or vomiting 30 tablet 2 01/22/2025 02/21/2025 Active polysaccharide iron complex 391 mg oral capsule (12 sources) Start: 01-10-2025 End: 02-09-2025 take 1 capsule by mouth once daily iron polysaccharides (ProFe) 391.3 (180 Fe) MG capsule Indications: Anemia during in second trimester ([facility]) Take 1 capsule (391.3 mg) by mouth Daily 30 capsule 11 01/10/2025 02/09/2025 Active Start: 10-30-2024 End: 11-29-2024 take 1 capsule [...] venlafaxine 37.5 mg extended release oral capsule (19 sources) Serotonin and Norepinephrine Reuptake Inhibitor Start: 11-01-2024 End: 11-01-2025 take 1 capsule by mouth once daily venlafaxine XR (Effexor XR) 37.5 MG 24 hr capsule Indications: Anxiety, generalized (CMS/HCC) Take 1 capsule (37.5 mg) by mouth Daily Do not crush or chew. 30 capsule 2 11/01/2024 01/15/2025 Discontinued Vitamin C 500 MG (1 source) Vitamin [...] multigravida, second trimester] Onset: 10-09-2024 Episodic Other complications of (2 sources) Vomiting of ; Translations: [Vomiting of , unspecified] 01-22-2025 Episodic Other female genital disorders (4 sources) Abnormal uterine and vaginal bleeding, unspecified; Translations: [ABNORMAL UTERINE VAGINAL BLEED UNS] Onset: 02-18-2022 Chronic Other and delivery including normal (20 sources) ; Translations: [Encounter for supervision of [...] [34 weeks gestation of ] 01-08-2025 Episodic Residual codes; unclassified (2 sources) Gestation period, 35 weeks; Translations: [35 weeks gestation of ] 01-15-2025 Episodic Residual codes; unclassified (2 sources) Gestation period, 36 weeks; Translations: [36 weeks gestation of ] 01-22-2025 Episodic Unclassified (1 source) CONTACT W/AND (SUSP) [...] Range Facility Urinalysis macro (dipstick) panel (U)on 01-22-2025 Bilirubin, UA Negative Negative - 4(70) +++ mg/dL [facility] Blood, UA Negative Negative - 50 Doroteo/mcL [facility] Clarity, UA Clear [facility] Color, UA Yellow [facility] Glucose, UA Negative Negative - 1999(110) ++++ mg/dL [facility] Interpretation and review of laboratory results Abnormal [facility] Ketones, UA Negative Negative - 160(16) ++++ mg/dL [facility] Leukocytes, UA Trace Negative - 500+++ Celina/mcL [facility] Nitrite, UA Negative Negative - Positive [facility] pH, UA 6.5 5 - 9 [facility] Protein, UA Negative Negative - 1999(20) ++++ mg/dL [facility] Spec Grav, UA 1.015 1 - 1.03 [facility] Urobilinogen, UA 0.2 0.2 - 12 mg/dL [facility] US OB BPP W NON-STRESS on 01-19-[address] [address] Ultrasound Report Signed Patient: JANNIE ANTONIO MR#: [id number] : 1985 Acct:[id number] Age/Sex: 39 / F ADM Date: 01/18/25 Loc: US Attending Dr: Norbert Vega D.O. Ordering Physician: Norbert Vega D.O. Date of Service: 01/18/25 Procedure(s): US OB BPP w non-stress Accession Number(s): [id number] cc: Norbert Vega D.O.; Quoc Watts M.D. [place] [address] Patient Name: JANNIE ANTONIO MRN: [facility]:[id number] date: 1985 Sex: F Assigned Patient Location: Current Patient Location: Accession/Order Number: [id number] Exam Date: 01/18/2025 11:15 Report Date: 01/18/2025 [...] Bolanos M.D. 01/18/2025 11:16 AM Dictation Location: [place] [address] Electronically authenticated by: [id number] Y Date: 01/18/2025 11:16 Dictated By: Lise Bolanos M.D. Signed By: 01/19/25 0928 DD/ 1116 TD/TT: Combination Welder: [facility] Radiology, Radiologist, - 01/19/2025 [place] [address] Ultrasound Report Signed Patient: JANNIE ANTONIO MR#: [id number] : 1985 Acct:[id number] Age/Sex: 39 / F ADM Date: 01/18/25 Loc: US Attending Dr: Norbert Vega D.O. Ordering Physician: Norbert Vega D.O. Date of Service: 01/18/25 Procedure(s): US OB BPP w non-stress Accession Number(s): [id number] cc: Norbert Vega D.O.; Quoc Watts M.D. The [place] [address] Patient Name: JANNIE ANTONIO MRN: [id number]:[id number] date: 1985 Sex: F Assigned Patient Location: US Current Patient Location: Accession/Order Number: [id number] Exam Date: 01/18/2025 11:15 Report Date: 01/18/2025 [...] Bolanos M.D. 01/18/2025 11:16 AM Dictation Location: [place] [address] Electronically authenticated by: [id number] Y Date: 01/18/2025 11:16 Dictated By: Lise Bolanos M.D. Signed By: 01/19/25 0928 DD/ 1116 TD/TT: Combination Welder: [facility] OB BPP W NON-STRESS Ordered By: Radiologist Radiology on 01-19-2025 [facility] Work Phone: OB BPP W NON-STRESS on 01-18-2025 Radiology Study observation (narrative) [facility] Urinalysis macro (dipstick) panel (U)on 01-15-2025 Bilirubin, UA Negative Negative - 4(70) +++ mg/dL [facility] Blood, UA Negative Negative - 50 Doroteo/mcL [facility] Healthcare Clarity, UA Clear [facility] Color, UA Yellow [facility] Glucose, UA Negative Negative - 1999(110) ++++ mg/dL [facility] Interpretation and review of laboratory results Abnormal [facility] Ketones, UA Negative Negative - 160(16) ++++ mg/dL [facility] Leukocytes, UA Negative Negative - 500+++ Celina/mcL [facility] Nitrite, UA Negative Negative - Positive [facility] pH, UA 6.5 5 - 9 [facility] Healthcare Protein, UA Trace Negative - 1999(20) ++++ mg/dL [facility] Spec Grav, UA 1.02 1 - 1.03 [facility] Urobilinogen, UA 0.2 0.2 - 12 mg/dL [facility] Urinalysis macro (dipstick) panel (U)on 01-08-2025 Bilirubin, UA Negative Negative - 4(70) +++ mg/dL [facility] Blood, UA Negative Negative - 50 Doroteo/mcL [facility] Healthcare Clarity, UA Clear [facility] Healthcare Color, UA Yellow [facility] Glucose, UA Negative Negative - 2000(110) ++++ mg/dL [facility] Interpretation and review of laboratory results Normal [facility] Ketones, UA Negative Negative - 160(16) ++++ mg/dL [facility] Leukocytes, UA Negative Negative - 500+++ Celina/mcL [facility] Healthcare Nitrite, UA Negative Negative - Positive [facility] pH, UA 5.5 5 - 9 [facility] Protein, UA Negative Negative - 1999(20) ++++ mg/dL [facility] Spec Grav, UA 1.02 1 - 1.03 [facility] Urobilinogen, UA 1.0 0.2 - 12 mg/dL [facility] US OB BPP W NON-STRESS on 01-04-2025 [place] [address] Ultrasound Report Signed Patient: JANNIE ANTONIO MR#: [id number] : 1985 Acct:[id number] Age/Sex: 39 / F ADM Date: 01/04/25 Loc: [facility] 250-[address]: Norbert Vega D.O. Ordering Physician: Norbert Vega D.O. Date of Service: 01/04/25 Procedure(s): US OB BPP w non-stress Accession Number(s): [id number] cc: Norbert Vega D.O.; Quoc Watts M.D. [place] [address] Patient Name: JANNIE ANTONIO MRN: [id number]:[id number] date: 1985 Sex: F Assigned Patient Location: Current Patient Location: US Accession/Order Number: [id number] Exam Date: 01/04/2025 11:35 Report Date: 01/04/2025 11:36 At the request of: NORBERT VEGA DO Procedure: US OB BPP w non-stress BIOPHYSICAL PROFILE: CLINICAL INFORMATION: Multigravida of advanced maternal age COMPARISON: 12/28/2024 There is a single live intrauterine gestation in cephalic presentation. The reported gestational age is 33 weeks 5 days. The heart rate [id number] beats per minute. FINDINGS: TONE: 1 or [...] Bolanos M.D. 01/04/2025 11:36 AM Dictation Location: [place] [address] Electronically authenticated by: [id number] Y Date: 01/04/2025 11:36 Dictated By: Lise Bolanos M.D. Signed By: 01/04/25 1139 DD/ 1136 TD/TT: Combination Welder: [facility] Radiology, Radiologist, MD - 01/04/2025 [place] [address] Ultrasound Report Signed Patient: JANNIE ANTONIO MR#: [id number] : 1985 Acct:[id number] Age/Sex: 39 / F ADM Date: 01/04/25 Loc: [facility] [address]: Norbert Vega D.O. Ordering Physician: Norbert Vega D.O. Date of Service: 01/04/25 Procedure(s): US OB BPP w non-stress Accession Number(s): [id number] cc: Norbert Vega D.O.; Quoc Watts M.D. The [place] [address] Patient Name: JANNIE ANTONIO MRN: [facility]:[id number] date: 1985 Sex: F Assigned Patient Location: Current Patient Location: US Accession/Order Number: [id number] Exam Date: 01/04/2025 11:35 Report Date: 01/04/2025 11:36 At the request of: NORBERT VEGA DO Procedure: US OB BPP w non-stress BIOPHYSICAL PROFILE: CLINICAL INFORMATION: Multigravida of advanced maternal age COMPARISON: 12/28/2024 There is a single live intrauterine gestation in cephalic presentation. The reported gestational age is 33 weeks 5 days. The heart rate [id number] beats per minute. FINDINGS: TONE: 1 or [...] Bolanos M.D. 01/04/2025 11:36 AM Dictation Location: [place] [address] Electronically authenticated by: [id number] Y Date: 01/04/2025 11:36 Dictated By: Lise Bolanos M.D. Signed By: 01/04/25 1139 DD/ 1136 TD/TT: Combination Welder: [facility] Radiology Study observation (narrative) [facility] OB BPP W NON-STRESS Ordered By: Radiologist Radiology on 01-04-2025 [facility] Work Phone: Urinalysis macro (dipstick) panel (U)on 12-26-2024 Bilirubin, UA Negative Negative - 4(70) +++ mg/dL [facility] Blood, UA Negative Negative - 50 Doroteo/mcL [facility] Clarity, UA Clear [facility] Color, UA Yellow [facility] Glucose, UA Negative Negative - 2000(110) ++++ mg/dL [facility] Interpretation and review of laboratory results Normal [facility] Ketones, UA Negative Negative - 160(16) ++++ mg/dL [facility] Leukocytes, UA Negative Negative - 500+++ Celina/mcL [facility] Nitrite, UA Negative Negative - Positive [facility] pH, UA 7 5 - 9 [facility] Protein, UA Negative Negative - 2000(20) ++++ mg/dL [facility] Spec Grav, UA 1.015 1 - 1.03 [facility] Urobilinogen, UA 0.2 0.2 - 12 mg/dL [facility] OB BPP W NON-STRESS on 12-21-[address] [address] Ultrasound Report Signed Patient: JANNIE ANTONIO MR#: [id number] : 1985 Acct:[id number] Age/Sex: 39 / F ADM Date: 12/21/24 Loc: US Attending Dr: Norbert Vega D.O. Ordering Physician: Norbert Vega D.O. Date of Service: 12/21/24 Procedure(s): US OB BPP w non-stress Accession Number(s): [id number] cc: Norbert Vega D.O.; Quoc Watts M.D. [place] [address] Patient Name: JANNIE ANTONIO MRN: [id number] date: 1985 Sex: F Assigned Patient Location: [facility] Current Patient Location: Accession/Order Number: [id number] Exam Date: 12/21/2024 11:37 Report Date: 12/21/2024 [...] Metzger M.D. 12/21/2024 11:39 AM Dictation Location: [place] [address] Electronically authenticated by: [id number] Y Date: 12/21/2024 11:39 Dictated By: Jonah Metzger M.D. Signed By: 12/21/24 1141 DD/ 1139 TD/TT: Combination Welder: [facility] Radiology, Radiologist, - 12/21/2024 [place] [address] Ultrasound Report Signed Patient: JANNIE ANTONIO MR#: [id number] : 1985 Acct:[id number] Age/Sex: 39 / F ADM Date: 12/21/24 Loc: US Attending Dr: Norbert Vega D.O. Ordering Physician: Norbert Vega D.O. Date of Service: 12/21/24 Procedure(s): US OB BPP w non-stress Accession Number(s): [id number] cc: Norbert Vega D.O.; Quoc Watts M.D. The [place] [address] Patient Name: JANNIE ANTONIO MRN: [facility]:[id number] date: 1985 Sex: F Assigned Patient Location: [facility] Current Patient Location: Accession/Order Number: [id number] Exam Date: 12/21/2024 11:37 Report Date: 12/21/2024 [...] Metzger M.D. 12/21/2024 11:39 AM Dictation Location: [place] [address] Electronically authenticated by: [id number] Y Date: 12/21/2024 11:39 Dictated By: Jonah Metzger M.D. Signed By: 12/21/24 1141 DD/ 1139 TD/TT: Combination Welder: [facility] Radiology Study observation (narrative) [facility] US OB BPP W NON-STRESS Ordered By: Radiologist Radiology on 12-21-2024 [facility] Work Phone: US OB GROWTHon 12-21-2024 [place] [address] Ultrasound Report Signed Patient: JANNIE ANTONIO MR#: [id number] : 1985 Acct:[id number] Age/Sex: 39 / F ADM Date: 12/21/24 Loc: US Attending Dr: Norbert Vega D.O. Ordering Physician: Norbert Vega D.O. Date of Service: 12/21/24 Procedure(s): US OB growth Accession Number(s): [id number] cc: Norbert Vega D.O.; Quoc Watts M.D. [place] [id number] Patient Name: JANNIE ANTONIO MRN: [id number]:[id number] date: 1985 Sex: F Assigned Patient Location: [facility] Current Patient Location: Accession/Order Number: [id number] Exam Date: 12/21/2024 11:39 Report Date: 12/21/2024 [...] Metzger M.D. 12/21/2024 11:41 AM Dictation Location: [place] [address] Electronically authenticated by: [id number] Y Date: 12/21/2024 11:41 Dictated By: Jonah Metzger M.D. Signed By: 12/21/24 1143 DD/ 1141 TD/TT: Combination Welder: [facility] Radiology, Radiologist, MD - 12/21/2024 [place] [address] Ultrasound Report Signed Patient: JANNIE ANTONIO MR#: [id number] : 1985 Acct:[id number] Age/Sex: 39 / F ADM Date: 12/21/24 Loc: US Attending Dr: Norbert Vega D.O. Ordering Physician: Norbert Vega D.O. Date of Service: 12/21/24 Procedure(s): US OB growth Accession Number(s): [id number] cc: Norbert Vega D.O.; Quoc Watts M.D. The [place] [id number] Patient Name: JANNIE ANTONIO MRN: [facility]:[id number] date: 1985 Sex: F Assigned Patient Location: [facility] Current Patient Location: Accession/Order Number: [id number] Exam Date: 12/21/2024 11:39 Report Date: 12/21/2024 [...] Metzger M.D. 12/21/2024 11:41 AM Dictation Location: [facility] Electronically authenticated by: [id number] Y Date: 12/21/2024 11:41 Dictated By: Jonah Metzger M.D. Signed By: 12/21/24 1143 DD/ 1141 TD/TT: Combination Welder: [facility] Radiology Study observation (narrative) [facility] US OB GROWTHOrdered By: Suleman [email or web address] Radiology on 12-21-2024 [facility] Work Phone: US OB FOLLOW UP TRANSABDOMIN [...] II, MD, PHD at 13-Dec-2024 08:39:30 AM [facility] [place] [facility] Normal Not Available Comment on above: Order Comment: US OB SCAN FOR GROWTH Estimated Date of Delivery: 02/17/25 Gestational Age as of 11/27/2024: 28w2d Urinalysis macro (dipstick) panel (U)on 12-11-2024 Bilirubin, UA Negative Negative - 4(70) +++ mg/dL [facility] Blood, UA Positive Negative - 50 Doroteo/mcL [facility] Healthcare Comment on above: Moderate Clarity, UA Clear [facility] Color, UA Yellow [facility] Glucose, UA Negative Negative - 2000(110) ++++ mg/dL [facility] Interpretation and review of laboratory results Abnormal [facility] Ketones, UA Negative Negative - 160(16) ++++ mg/dL [facility] Leukocytes, UA Negative Negative - 500+++ Celina/mcL [facility] Nitrite, UA Negative Negative - Positive [facility] pH, UA 6 5 - 9 [facility] Protein, UA Negative Negative - 1999(20) ++++ mg/dL [facility] Spec Grav, UA 1.005 1 - 1.03 [facility] Urobilinogen, UA 0.2 0.2 - 12 mg/dL [facility] TB UA (CLEAN/CATCH) MICROSC OPIC IF INDICATEon 12-09-2024 BILIRUBIN URINE Negative NEGATIVE [facility] BLOOD URINE LARGE Abnormal NEGATIVE [facility] Healthcare Clarity (U) SL CLOUDY CLEAR [facility] Healthcare Color (U) YELLOW YELLOW [facility] GLUCOSE URINE UA Negative NEGATIVE mg/dL [facility] Interpretation and review of laboratory results Abnormal [facility] Healthcare Ketones Ql (U) 15 mg/dL Abnormal NEGATIVE [facility] Leukocyte esterase Test strip Ql (U) Negative NEGATIVE [facility] Healthcare NITRITE URINE Negative NEGATIVE [facility] pH (U) 6.0 [pH] 5.0 - 9.0 [facility] Protein (U) [Mass/Vol] 100 mg/dL Abnormal NEG/TRACE NO [facility] SPECIFIC GRAVITY URINE >=1.030 Abnormal 1.005 - 1.025 [facility] URINE MICROSCOPIC INDICATED YES [facility] UROBILINOGEN URINE 1.0 EU/dL 0.2 - 1.0 EU/dL [facility] TB UA (CLEAN/CATCH) DIRECTOR TRADE/LA RO IF IND.on 11-30-2024 BILIRUBIN URINE Negative NEGATIVE [facility] BLOOD URINE Negative NEGATIVE [facility] Clarity (U) CLEAR CLEAR [facility] Color (U) LT. YELLOW YELLOW [facility] GLUCOSE URINE UA Negative NEGATIVE mg/dL [facility] Ketones Ql (U) Negative NEGATIVE mg/dL [facility] Leukocyte esterase Test strip Ql (U) Negative NEGATIVE [facility] NITRITE URINE Negative NEGATIVE [facility] pH (U) 6.5 [pH] 5.0 - 9.0 [facility] PROTEIN URINE Negative NEG/TRACE mg/dL [facility] SPECIFIC GRAVITY URINE 1.010 1.005 - 1.025 [facility] URINE MICROSCOPIC INDICATED NO [facility] UROBILINOGEN URINE 0.2 EU/dL 0.2 - 1.0 EU/dL [facility] Urinalysis macro (dipstick) panel (U)on 11-27-2024 Bilirubin, UA Negative Negative - 4(70) +++ mg/dL [facility] Blood, UA Positive Negative - 50 Doroteo/mcL [facility] Comment on above: trace Clarity, UA Clear [facility] Color, UA Yellow [facility] Glucose, UA Negative Negative - 1999(110) ++++ mg/dL [facility] Interpretation and review of laboratory results Abnormal [facility] Ketones, UA Positive Negative - 160(16) ++++ mg/dL [facility] Comment on above: trace Leukocytes, UA Trace Negative - 500+++ Celina/mcL [facility] Nitrite, UA Negative Negative - Positive [facility] pH, UA 5.5 5 - 9 [facility] Protein, UA Positive Negative - 1999(20) ++++ mg/dL [facility] Comment on above: 30 Spec Grav, UA 1.025 1 - 1.03 [facility] Urobilinogen, UA 0.2 0.2 - 12 mg/dL [facility] RECURRENT VAGINITIS (HTRX)on 10-03-2024 ATOPOBIUM VAGINAE 0 [facility] ATOPOBIUM VAGINAE Not detected [facility] BVAB 2,3 (BACTERIAL VAGINOSIS ASSOCIATED BACTERIA 2, 3); MOBILUNCUS SPP 0 [facility] BVAB 2,3 (BACTERIAL VAGINOSIS ASSOCIATED BACTERIA 2, 3); MOBILUNCUS SPP Not detected [facility] JAYRO ALBICANS, PARAPSILOSIS, TROPICALIS 0 [facility] JAYRO ALBICANS, PARAPSILOSIS, TROPICALIS Not detected [facility] JAYRO GLABRATA 0 [facility] JAYRO GLABRATA Not detected [facility] JAYRO KRUSEI 0 [facility] JAYRO KRUSEI Not detected [facility] CHLAMYDIA TRACHOMATIS 0 [facility] CHLAMYDIA TRACHOMATIS Not detected N [facility] GARDNERELLA VAGINALIS 0 [facility] S [facility] GARDNERELLA VAGINALIS Not detected N [facility] MEGASPHAERA (TYPES 1, 2) 0 [facility] MEGASPHAERA (TYPES 1, 2) Not detected [facility] MYCOPLASMA GENITALIUM 0 [facility] MYCOPLASMA GENITALIUM Not detected N [facility] NEISSERIA GONORRHOEAE 0 [facility] NEISSERIA GONORRHOEAE Not detected N [facility] TRICHOMONAS VAGINALIS 0 [facility] TRICHOMONAS VAGINALIS Not detected N [facility] Urinalysis macro (dipstick) panel (U)on 10-02-2024 Bilirubin, UA Negative Negative - 4(70) +++ mg/dL [facility] Blood, UA Positive Negative - 50 Doroteo/mcL [facility] Comment on above: trace-intact Clarity, UA Clear [facility] Color, UA Yellow [facility] Glucose, UA Negative Negative - 1999(110) ++++ mg/dL [facility] Interpretation and review of laboratory results Abnormal [facility] Ketones, UA Negative Negative - 160(16) ++++ mg/dL [facility] Leukocytes, UA Trace Negative - 500+++ Celina/mcL [facility] Nitrite, UA Negative Negative - Positive [facility] pH, UA 7 5 - 9 [facility] Protein, UA Negative Negative - 1999(20) ++++ mg/dL [facility] Spec Grav, UA 1.015 1 - 1.03 [facility] Urobilinogen, UA 0.2 0.2 - 12 mg/dL [facility] AFP, SERUM, OPEN SPINA BIFID Aon 09-16-2024 AFP MOM 0.89 . [facility] AFP VALUE 35.2 ng/mL . [facility] COMMENT: Comment . [facility] Comment on above: Patricia Lozano , Ph.D., [facility] Director References: Available Upon Request. Multiples Of Median Cutoffs For AFP Elevations Zhao 2.5 Black 2.8 IDD 2.0 Twins 4.5 Abbreviation Definitions IDD - Insulin Dep Diabetes OSBR - Open Spina Bifida Risk For further inquiries contact [facility] at [phone]. This test was developed and its performance characteristics determined by [facility]. It has not been cleared or approved by the Food and Drug Administration. Performed at: [facility] [address], [place] [id number] Storage Battery Tester: Charlotte Ramos [facility], Phone: [phone] GEST. AGE ON COLLECTION DATE 17.6 . weeks [facility] GESTAT. AGE BASED ON LMP . [facility] Comment on above: Recalculations are n ot recommended when gestational dating by LMP and ultrasound are within 10 days. INSULIN DEP DIABETES No . [facility] INTERPRETATION Comment . [facility] Comment on above: Interpretation: Scre en Negative [...] Customer Services to discuss available options. The [employer] [place] [employer] recommends amniocentesis be offered to women age 35 and older. [age] [facility] MULTIPLE GESTATION No . [facility] OSBR RISK [address] [place] [id number] . [facility] RACE . [facility] RESULTS Report . [facility] TEST RESULTS: Negative . [facility] WEIGHT 158 . lbs [facility] N N LMP [id number] 2 16 N 1 158 N N N N N White/ [facility] Urinalysis macro (dipstick) panel (U)on 09-04-2024 Bilirubin, UA Negative Negative - 4(70) +++ mg/dL [facility] Blood, UA Negative Negative - 50 Doroteo/mcL [facility] Clarity, UA Clear [facility] Color, UA Yellow [facility] Glucose, UA Negative Negative - 2000(110) ++++ mg/dL [facility] Interpretation and review of laboratory results Abnormal [facility] Ketones, UA Negative Negative - 160(16) ++++ mg/dL [facility] Leukocytes, UA Negative Negative - 500+++ Celina/mcL [facility] Nitrite, UA Negative Negative - Positive [facility] pH, UA 6.5 5 - 9 [facility] Protein, UA Negative Negative - 1999(20) ++++ mg/dL [facility] Spec Grav, UA 1.02 1 - 1.03 [facility] Urobilinogen, UA 0.2 0.2 - 12 mg/dL [facility] TBH DRUG SCREEN RAPID (URINE )on 07-31-2024 AMPHETAMINE SCREEN URINE Negative NEGATIVE [facility] BARBITURATES SCREEN URINE Negative NEGATIVE [facility] BENZODIAZEPINES SCREEN URINE Negative NEGATIVE [facility] BUPRENORPHINE SCREEN URINE Negative NEGATIVE [facility] Comment on above: DRUG CLASS TEST SYST [...] 300 ng/mL CANNABINOID SCREEN URINE Negative NEGATIVE [facility] COCAINE SCREEN URINE Negative NEGATIVE [facility] METHADONE SCREEN URINE Negative NEGATIVE NO [facility] METHAMPHETAMINES SCREEN URINE Negative NEGATIVE [facility] OPIATE SCREEN URINE Negative NEGATIVE [facility] OXYCODONE SCREEN URINE Negative NEGATIVE NO [facility] PHENCYCLIDINE SCREEN URINE Negative NEGATIVE [facility] TRICYCLIC ANTIDEPRESSANT URINE Negative NEGATIVE [facility] 07-31-2024 Bacteria identified Cx Nom (U) 20,000 colonies/ml mixed bacterial skin contaminants 2 Days PERFORMED BY: [place] [address] PATHOLOGIST APPRENTICE PLUMBER NAIDA GARZON M.D. Normal [facility] Comment on above: Performed By: #### C UU #### [address] BOX TESTon 07-28-2024 BOX TEST SENT OUT [facility] BOX1 [facility] BOX2 07/28/24 [facility] HCG ( test) Ql (U)o n 07-28-2024 Interpretation and review of laboratory results Abnormal [facility] Preg Test, Ur Positive Negative [facility] Urinalysis macro (dipstick) panel (U)on 07-28-2024 Bilirubin, UA Negative Negative - 4(70) +++ mg/dL [facility] Blood, UA Positive Negative - 50 Doroteo/mcL [facility] Clarity, UA Clear [facility] Color, UA Yellow [facility] Glucose, UA Negative Negative - 1999(110) ++++ mg/dL [facility] Interpretation and review of laboratory results Abnormal [facility] Ketones, UA Negative Negative - 160(16) ++++ mg/dL [facility] Leukocytes, UA Negative Negative - 500+++ Celina/mcL [facility] Nitrite, UA Negative Negative - Positive [facility] pH, UA 6.5 5 - 9 [facility] Protein, UA Trace Negative - 1999(20) ++++ mg/dL [facility] Spec Grav, UA 1.025 1 - 1.03 [facility] Urobilinogen, UA 0.2 0.2 - 12 mg/dL [facility] PREG QUANT HCGon 024 HCG QUANTITATIVE 31654 mIU/mL [facility] Comment on above: 5-50 0.2-1 WEEK 50-500 1-2 WEEKS 100-5,000 2-3 WEEKS 500-10,000 3-4 WEEKS 1,000-50,000 4-5 WEEKS 10,000-100,000 5-6 WEEKS 15,000-200,000 6-8 WEEKS 10,000-100,000 [facility] 024 HCG QUANTITATIVE 4062 mIU/mL [facility] Comment on above: 5-50 0.2-1 WEEK 50-500 1-2 WEEKS 100-5,000 2-3 WEEKS 500-10,000 3-4 WEEKS 1,000-50,000 4-5 WEEKS 10,000-100,000 5-6 WEEKS 15,000-200,000 6-8 WEEKS 10,000-100,000 2[facility] QUANT HCGon 024 HCG QUANTITATIVE 3108 mIU/mL [facility] Comment on above: 5-50 0.2-1 WEEK 50-500 1-2 WEEKS 100-5,000 2-3 WEEKS 500-10,000 3-4 WEEKS 1,000-50,000 4-5 WEEKS 10,000-100,000 5-6 WEEKS 15,000-200,000 6-8 WEEKS 10,000-100,000 2-3 MONTHS [facility] ALL CBC WITH AUTO DIFFon BASOPHILS ABSOLUTE AUTO 0.0 N [facility] Basophils/100 WBC (Bld) 0.2 % 0.2 - 2.0 % [facility] Eosinophils/100 WBC (Bld) 0.8 % Low 0.9 - 7.0 % [facility] Erythrocyte distribution width (RBC) [Ratio] 13.4 % 11.0 - 15.0 % [facility] Hematocrit (Bld) [Volume fraction] 42.3 % 36.0 - 48.0 % [facility] Hemoglobin (Bld) [Mass/Vol] 13.6 g/dL 12.0 - 16.0 g/dL [facility] IMMATURE GRANULOCYTES ABS AUTO 0.02 [facility] Immature granulocytes/100 WBC (Bld) 0.3 % 0.0 - 0.5 % [facility] Interpretation and review of laboratory results Abnormal [facility] LYMPHOCYTES ABSOLUTE AUTO 1.7 [facility] Lymphocytes/100 WBC (Bld) 26.5 % 20 .5 - 60.0 % [facility] MCH (RBC) [Entitic mass] 30.1 pg 26. 7 - 34.0 pg [facility] MCHC (RBC) [Mass/Vol] 32.2 g/dL 29.9 - 35.2 g/dL [facility] MCV (RBC) [Entitic vol] 93.6 fL 81.0 - 99.0 fL [facility] MONOCYTES ABSOLUTE AUTO 0.5 N [facility] Monocytes/100 WBC (Bld) 7.3 % 1.7 - 12.0 % [facility] NEUTROPHILS ABSOLUTE AUTO 4.3 [facility] Neutrophils/100 WBC (Bld) 64.9 % 43 .0 - 75.0 % [facility] Platelet mean volume (Bld) [Entitic vol] 10.8 fL 9.5 - 13.5 fL [facility] TBH EO # 0.1 [facility] TB PLT [address] [facility] RBC 4.52 [facility] WBC 6.5 [facility] PROGESTERONEon 12-19-2022 Progesterone 9.6 ng/mL Normal [facility] Comment on above: Result Comment: Foll icular phase 0.1 - 0.9 Luteal phase 1.8 - 23.9 Ovulation phase 0.1 - 12.0 First trimester 11.0 - 44.3 Second trimester 25.4 - 83.3 Third trimester 58.7 - 214.0 Postmenopausal 0.0 - 0.1 Performed By: #### P MADELINES #### [facility] [address] [place] [address] Dr. Josie Sanchez PROGESTERONEon 11-19-2022 Progesterone 6.3 ng/mL Normal [facility] Comment on above: Result Comment: Foll icular phase 0.1 - 0.9 Luteal phase 1.8 - 23.9 Ovulation phase 0.1 - 12.0 First trimester 11.0 - 44.3 Second trimester 25.4 - 83.3 Third trimester 58.7 - 214.0 Postmenopausal 0.0 - 0.1 Performed By: #### P DAXA #### [facility] [address] [place] [address] Dr. Josie Sanchez PREG QUANT HCGon 11-18-2022 HCG QUANT <1 Normal [facility] Comment on above: Performed By: #### P REGQNT #### [facility] [address] [place] [address] Dr. Josie Sanchez HCG RANGE SEE BELOW Normal [facility] Comment on above: Result Comment: 5-50 0.2-1 WEEK 50-500 1-2 WEEKS 100-5,000 2-3 WEEKS 500-10,000 3-4 WEEKS 1,000-50,000 4-5 WEEKS 10,000-100,000 5-6 WEEKS 15,000-200,000 6-8 WEEKS 10,000-100,000 2-3 MONTHS Performed By: #### P REGQNT #### [facility] [address] [place] [address] Dr. Josie Sanchez US PELVIS AND TRANSVAGon [...] of a yolk sac as noted by dairy manufacturing technologist. No significant free pelvic fluid is [...] by: RENE MEYERS Date: 2022-11-16 18:09 Normal [facility] DHEA SERUMon 11-11-2022 Dehydroepiandrosterone (DHEA) 335 ng/dL Normal 31-701 [facility] Comment on above: Performed By: #### RILEY VALERIO #### [facility] [address] [place] [address] Dr. Josie Sanchez DHEA-SULFATEon 11-10-2022 DHEA-Sulfate 251.0 ug/dL Normal 57.3-279.2 [facility] Comment on above: Performed By: #### P REGQNT #### [facility] [address] [place], [place] [address] Dr. Josie Sanchez ESTRADIOLon 11-10-2022 Estradiol 66.1 pg/mL Normal [facility] Comment on above: Result Comment: Adul t Female: Follicular phase 12.5 - 166.0 Ovulation phase 85.8 - 498.0 Luteal phase 43.8 - 211.0 Postmenopausal <6.0 - 54.7 1st trimester 215.0 - >4300.0 [facility] ECLIA methodology Performed By: #### RILEY VALERIO #### [facility] [address] [place] [address] Dr. Josie Sanchez FSHon 11-10-2022 FSH 6.9 mIU/mL Normal [facility] Comment on above: Result Comment: Adul t Female: Follicular phase 3.5 - 12.5 Ovulation phase 4.7 - 21.5 Luteal phase 1.7 - 7.7 Postmenopausal 25.8 - 134.8 Performed By: #### P REGQNT #### [facility] [address] [place] [address] Dr. Josie Sanchez LUTEINIZING HORMONE (LH)on 0 11-10-2022 LH 9.9 mIU/mL Normal [facility] Comment on above: Result Comment: Adul t Female: Follicular phase 2.4 - 12.6 Ovulation phase 14.0 - 95.6 Luteal phase 1.0 - 11.4 Postmenopausal 7.7 - 58.5 Performed By: #### RILEY VALERIO #### [facility] [address] [place] [address] Dr. Josie Sanchez CBC AUTO DIFFon 11-09-2022 BASO # 0.0 103/ul Normal 0.0-0.1 [facility] Comment on above: Performed By: #### RILEY VALERIO #### [facility] [address] [place] [address] Dr. Josie Sanchez Basophils/100 WBC (Bld) 0.3 % Normal 0.2-2.0 [facility] Comment on above: Performed By: #### RILEY VALERIO #### [facility] [address] [place] [address] Dr. Josie Sanchez EO # 0.0 103/ul Normal 0.0-0.7 [facility] Comment on above: Performed By: #### RILEY VALERIO #### [facility] [address] [place] [address] Dr. Josie Sanchez Eosinophils/100 WBC (Bld) 0.5 % Critically low 0.9-7. 0 [facility] Comment on above: Performed By: #### RILEY VALERIO #### [facility] [address] [place] [address] Dr. Josie Sanchez Erythrocyte distribution width (RBC) [Ratio] 13.2 % Normal 11.0-15.0 [facility] Comment on above: Performed By: #### Clyde MEANS UMICRO #### [facility] [address] [address] [address] Josie Sanchez Hematocrit (Bld) [Volume fraction] 41.8 % Normal 36.0-48.0 [facility] Comment on above: Performed By: #### Clyde MEANS, UMICRO #### [facility] [address] [place] [address] Dr. Josie Sanchez Hemoglobin (Bld) [Mass/Vol] 13.7 g/dL Normal 12.0-16.0 [facility] Comment on above: Performed By: #### Clyde MEANS UMICRO #### [facility] [address] [place] [address] Dr. Josie Sanchez IG # 0.02 10e3/ul Normal 0.00-0.03 [facility] Comment on above: Performed By: #### Clyde MEANS UMICRO #### [facility] [address] [place] [address] Dr. Josie Sanchez IG % 0.3 % Normal 0.0-0.5 [facility] Comment on above: Performed By: #### Clyde MEANS UMICRO #### [facility] [address] [place] [address] Dr. Josie Sanchez LYMPH # 1.2 103/ul Normal 1.2-3.8 [facility] Comment on above: Performed By: #### Clyde MEANS UMICRO #### [facility] [address] [place] [address] Dr. Josie Sanchez Lymphocytes/100 WBC (Bld) 18.4 % Critically low 20.5-6 0.0 [facility] Comment on above: Performed By: #### Clyde MEANS UMICRO #### [facility] [address] [place] [address] Dr. Josie Sanchez MANUAL DIFF REQ NO Normal [facility] Comment on above: Performed By: #### ROBERT VALERIOICRO #### [facility] [address] [place] [address] Dr. Josie Sanchez MCH (RBC) [Entitic mass] 29.5 pg Normal 26.7-34.0 [facility] Comment on above: Performed By: #### Clyde MEANS UMICRO #### [facility] [address] [place] [address] Dr. Josie Sanchez MCHC (RBC) [Mass/Vol] 32.8 g/dL Normal 29.9-35.2 [facility] Comment on above: Performed By: #### KIAN VALERIORO #### [facility] [address] [place] [address] Dr. Josie Sanchez MCV (RBC) [Entitic vol] 89.9 fL Normal 81.0-99.0 [facility] Comment on above: Performed By: #### ROBERT VALERIOICRO #### [facility] [address] [place] [address] Dr. Josie Sanchez MONO # 0.3 103/ul Normal 0.3-0.8 [facility] Comment on above: Performed By: #### KIAN VALERIORO #### [facility] [address] [place] [address] Dr. Josie Sanchez Monocytes/100 WBC (Bld) 5.1 % Normal 1.7-12.0 [facility] Comment on above: Performed By: #### KIAN VALERIORO #### [facility] [address] [place] [address] Dr. Josie Sanchez NEUT # 4.8 103/ul Normal 1.4-6.5 [facility] Comment on above: Performed By: #### ROBERT VALERIOICRO #### [facility] [address] [place] [address] Dr. Josie Sanchez Neutrophils/100 WBC (Bld) 75.4 % Critically high 43.0- 75.0 [facility] Comment on above: Performed By: #### KIAN VALERIORO #### [facility] [address] [address] [address] Josie Sanchez Platelet mean volume (Bld) [Entitic vol] 9.8 fL Normal 9.5-13.5 [facility] Comment on above: Performed By: #### ROBERT VALERIOICRO #### [facility] [address] [address] [address] Josie Sanchez PLT 256 103/ul Normal 150-450 [facility] Comment on above: Performed By: #### Clyde MEANS UMICRO #### [facility] [address] [place] [address] Dr. Josie Sanchez RBC 4.65 106/ul Normal 4.20-5.40 [facility] Comment on above: Performed By: #### KIAN VAELRIORO #### [facility] [address] [place] [address] Dr. Josie Sanchez WBC 6.4 103/ul Normal 4.0-11.0 [facility] Comment on above: Performed By: #### ROBERT VALERIOICRO #### [facility] [address] [place] [address] Dr. Josie Sanchez FERRITINon 11-09-2022 Ferritin [Mass/Vol] 42.0 ng/mL Normal 6.2-137.0 [facility] Comment on above: Performed By: #### KIAN VALERIORO #### [facility] [address] [place] [address] Dr. Josie Sanchez FREE T4on 11-09-2022 Free T4 [Mass/Vol] 0.87 ng/dL Normal 0.76-1.46 [facility] Comment on above: Performed By: #### Clyde MEANS UMGEORGIARO #### [facility] [address] [place] [address] Dr. Josie Sanchez GLYCOHEMOGLOBIN A1Con 2022 ADA RECOMMENDATION SEE BELOW Normal [facility] Comment on above: Result Comment: ADA RECOMMENDED LIMIT 4.0 - 6.0 ADA THERAPEUTIC TARGET < 7.0 ACTION SUGGESTED > 7.0 Performed By: #### KIAN VALERIORO #### [facility] [address] [address] [address] Josie Sanchez Glucose [Mass/Vol] 100 mg/dL Normal [facility] Comment on above: Performed By: #### Clyde MEANS UMGEORGIARO #### [facility] [address] [place] [address] Dr. Josie Sanchez HbA1c (Bld) [Mass fraction] 5.1 % Normal 4.5-6.2 [facility] Comment on above: Performed By: #### Clyde MEANS, UMICRO #### [facility] [address] [address] [address] Josie Sanchez PREG QUANT HCGon 11-09-2022 HCG QUANT <1 Normal [facility] Comment on above: Performed By: #### Clyde MEANS UMGEORGIARO #### [facility] [address] [place] [address] Dr. Josie Sanchez HCG RANGE SEE BELOW Normal [facility] Comment on above: Result Comment: 5-50 0.2-1 WEEK 50-500 1-2 WEEKS 100-5,000 2-3 WEEKS 500-10,000 3-4 WEEKS 1,000-50,000 4-5 WEEKS 10,000-100,000 5-6 WEEKS 15,000-200,000 6-8 WEEKS 10,000-100,000 2-3 MONTHS Performed By: #### Clyde MEANS UMGEORGIARO #### [facility] [address] [place] [address] Dr. Josie Sanchez TSHon 11-09-2022 TSH 2.163 uIU/mL Normal 0.358-3.740 [facility] Comment on above: Performed By: #### Clyde MEANS, UMICRO #### [facility] [address] [place] [address] Dr. Josie Sanchez PROGESTERONEon 08-29-2022 Progesterone 7.3 ng/mL Normal [facility] Comment on above: Result Comment: Foll icular phase 0.1 - 0.9 Luteal phase 1.8 - 23.9 Ovulation phase 0.1 - 12.0 First trimester 11.0 - 44.3 Second trimester 25.4 - 83.3 Third trimester 58.7 - 214.0 Postmenopausal 0.0 - 0.1 Performed By: #### P ROGES #### [facility] [address] [place] [address] Dr. Josie Sanchez INSULINon 08-13-2022 Insulin 12.5 uIU/mL Normal 2.6-24.9 [facility] Comment on above: Performed By: #### P REGQNT #### [facility] [address] [place] [address] Dr. Josie Sanchez CBC AUTO DIFFon 08-12-2022 BASO # 0.0 103/ul Normal 0.0-0.1 [facility] Comment on above: Performed By: #### RILEY VALERIO #### [facility] [address] [place] [address] Dr. Josie Sanchez Basophils/100 WBC (Bld) 0.2 % Normal 0.2-2.0 [facility] Comment on above: Performed By: #### RILEY VALERIO #### [facility] [address] [place] [address] Dr. Josie Sanchez EO # 0.1 103/ul Normal 0.0-0.7 [facility] Comment on above: Performed By: #### RILEY VALERIO #### [facility] [address] [place] [address] Dr. Josie Sanchez Eosinophils/100 WBC (Bld) 0.8 % Critically low 0.9-7. 0 [facility] Comment on above: Performed By: #### RILEY VALERIO #### [facility] [address] [place] [address] Dr. Josie Sanchez Erythrocyte distribution width (RBC) [Ratio] 14.0 % Normal 11.0-15.0 [facility] Comment on above: Performed By: #### RILEY VALERIO #### [facility] [address] [place] [address] Dr. Josie Sanchez Hematocrit (Bld) [Volume fraction] 39.5 % Normal 36.0-48.0 [facility] Comment on above: Performed By: #### Clyde MEANS UMICRO #### [facility] [address] [place] [address] Dr. Josie Sanchez Hemoglobin (Bld) [Mass/Vol] 12.7 g/dL Normal 12.0-16.0 [facility] Comment on above: Performed By: #### E MIGUELANGEL, UMICRO #### [facility] [address] [place] [address] Dr. Josie Sanchez IG # 0.02 10e3/ul Normal 0.00-0.03 [facility] Comment on above: Performed By: #### E MIGUELANGEL UMICRO #### [facility] [address] [place] [address] Dr. Josie Sanchez IG % 0.3 % Normal 0.0-0.5 [facility] Comment on above: Performed By: #### Clyde MEANS UMICRO #### [facility] [address] [place] [address] Dr. Josie Sanchez LYMPH # 1.6 103/ul Normal 1.2-3.8 [facility] Comment on above: Performed By: #### Clyde MEANS UMICRO #### [facility] [address] [place] [address] Dr. Josie Sanchez Lymphocytes/100 WBC (Bld) 26.9 % Normal 20.5-60.0 [facility] Comment on above: Performed By: #### Clyde MEANS UMICRO #### [facility] [address] [place] [address] Dr. Josie Sanchez MANUAL DIFF REQ NO Normal [facility] Comment on above: Performed By: #### E MIGUELANGEL, UMICRO #### [facility] [address] [place] [address] Dr. Josie Sanchez MCH (RBC) [Entitic mass] 28.3 pg Normal 26.7-34.0 [facility] Comment on above: Performed By: #### E MIGUELANGEL, UMICRO #### [facility] [address] [place] [address] Dr. Josie Sanchez MCHC (RBC) [Mass/Vol] 32.2 g/dL Normal 29.9-35.2 [facility] Comment on above: Performed By: #### RILEY VALERIO #### [facility] [address] [place] [address] Dr. Josie Sanchez MCV (RBC) [Entitic vol] 88.0 fL Normal 81.0-99.0 [facility] Comment on above: Performed By: #### KIAN VALERIORO #### [facility] [address] [place] [address] Dr. Josie Sanchez MONO # 0.4 103/ul Normal 0.3-0.8 [facility] Comment on above: Performed By: #### KIAN VALERIORO #### [facility] [address] [place] [address] Dr. Josie Sanchez Monocytes/100 WBC (Bld) 7.1 % Normal 1.7-12.0 [facility] Comment on above: Performed By: #### KIAN VALERIORO #### [facility] [address] [place] [address] Dr. Josie Sanchez NEUT # 3.8 103/ul Normal 1.4-6.5 [facility] Comment on above: Performed By: #### KIAN VALERIORO #### [facility] [address] [place] [address] Dr. Josie Sanchez Neutrophils/100 WBC (Bld) 64.7 % Normal 43.0-75.0 [facility] Comment on above: Performed By: #### KIAN VALERIORO #### [facility] [address] [place] [address] Dr. Josie Sanchez Platelet mean volume (Bld) [Entitic vol] 10.1 fL Normal 9.5-13.5 [facility] Comment on above: Performed By: #### KIAN VALERIORO #### [facility] [address] [place] [address] Dr. Josie Sanchez PLT 211 103/ul Normal 150-450 [facility] Comment on above: Performed By: #### KIAN VALERIORO #### [facility] [address] [address] [address] Josie Sanchez RBC 4.49 106/ul Normal 4.20-5.40 [facility] Comment on above: Performed By: #### Clyde MEANS UMICRO #### [facility] [address] [address] [address] Josie Sanchez WBC 5.9 103/ul Normal 4.0-11.0 [facility] Comment on above: Performed By: #### Clyde MEANS UMICRO #### [facility] [address] [place] [address] Dr. Josie Sanchez FREE THYROXINE INDEX T7on FTI 2.63 Normal 1.30-4.50 [facility] Comment on above: Performed By: #### KIAN VALERIORO #### [facility] [address] [place] [address] Dr. Josie Sanchez T3U 35.0 % Normal 30.0-39.0 [facility] Comment on above: Performed By: #### KIAN VALERIORO #### [facility] [address] [place] [address] Dr. Josie Sanchez T4 [Mass/Vol] 7.50 ug/dL Normal 4.80-13.90 [facility] Comment on above: Performed By: #### Clyde MEANS UMGEORGIARO #### [facility] [address] [place] [address] Dr. Josie Sanchez GLYCOHEMOGLOBIN A1Con 2022 ADA RECOMMENDATION SEE BELOW Normal [facility] Comment on above: Result Comment: ADA RECOMMENDED LIMIT 4.0 - 6.0 ADA THERAPEUTIC TARGET < 7.0 ACTION SUGGESTED > 7.0 Performed By: #### KIAN VALERIORO #### [facility] [address] [place] [address] Dr. Josie Sanchez Glucose [Mass/Vol] 111 mg/dL Normal [facility] Comment on above: Performed By: #### KIAN VALERIORO #### [facility] [address] [place] [address] Dr. Josie Sanchez HbA1c (Bld) [Mass fraction] 5.5 % Normal 4.5-6.2 [facility] Comment on above: Performed By: #### E RILEY MEANS #### [facility] [address] [place] [address] Dr. Josie Sanchez IRONon 08-12-2022 Iron [Mass/Vol] 40.0 ug/dL Critically low 50.0-170.0 [facility] Comment on above: Performed By: #### P REGQNT #### [facility] [address] [address] [address] Josie Sanchez LIPID PROFILEon 08-12-2022 CHOL-HDL RATIO NORM SEE BELOW Normal [facility] Comment on above: Result Comment: 3.3 - 4.4 LOW RISK 4.4 - 7.1 AVERAGE RISK 7.1 - 11.0 MODERATE RISK >11.0 HIGH RISK Performed By: #### P REGQNT #### [facility] [address] [place] [address] Dr. Josie Sanchez Cholesterol [Mass/Vol] 183 mg/dL Normal <=200 [facility] Comment on above: Performed By: #### P REGQNT #### [facility] [address] [address] [address] Josie Sanchez Cholesterol in HDL [Mass/Vol] 40 mg/dL Normal 40-60 [facility] Comment on above: Performed By: #### P REGQNT #### [facility] [address] [address] [address] Josie Sanchez Cholesterol in LDL [Mass/Vol] 131.0 mg/dL Normal [facility] Comment on above: Performed By: #### P REGQNT #### [facility] [address] [address] [address] Josie Sanchez Cholesterol.total/Choleste rol in HDL [Mass ratio] 4.6 {ratio} Normal [facility] Comment on above: Performed By: #### P REGQNT #### [facility] [address] [place] [address] Dr. Josie Sanchez HDL NORMAL > or = 60 mg/dl - LOW CARDIOVASCULAR RISK <40 mg/dl - HIGH CARDIOVASCULAR RISK Normal [facility] Comment on above: Performed By: #### P REGQNT #### [facility] [address] [address] [address] Josie Sanchez LDL CALC NORMAL SEE BELOW Normal [facility] Comment on above: Result Comment: <100 mg/dl OPTIMAL 100 - 129 mg/dl NEAR OR ABOVE OPTIMAL 130 - 159 mg/dl BORDERLINE HIGH 160 - 189 mg/dl HIGH >190 mg/dl VERY HIGH Performed By: #### P REGQNT #### [facility] [address] [address] [address] Josie Sanchez Triglyceride [Mass/Vol] 60 mg/dL Normal <=150 T [facility] Comment on above: Performed By: #### P REGQNT #### [facility] [address] [place] [address] Dr. Josie Sanchez VLDL CALC 12.0 mg/dL Normal [facility] Comment on above: Performed By: #### P REGQNT #### [facility] [address] [place] [address] Dr. Josie Sanchez PROF 14(COMP METB)on 023 Albumin [Mass/Vol] 3.7 g/dL Normal 3.4-5.0 [facility] Comment on above: Performed By: #### RILEY VALERIO #### [facility] [address] [address] [address] Josie Sanchez Albumin/Globulin [Mass ratio] 0.9 {ratio} Normal [facility] Comment on above: Performed By: #### KIAN VALERIORO #### [facility] [address] [address] [address] Josie Sanchez ALP [Catalytic activity/Vol] 131 U/L Critically high 46-116 [facility] Comment on above: Performed By: #### KIAN VALERIORO #### [facility] [address] [address] [address] Josie Sanchez ALT [Catalytic activity/Vol] 23 U/L Normal 14-59 [facility] Comment on above: Performed By: #### KIAN VALERIORO #### [facility] [address] [address] [address] Josie Sanchez Anion gap [Moles/Vol] 10.5 mmol/L Normal Th [facility] Comment on above: Performed By: #### Clyde MEANS UMICRO #### [facility] [address] [place] [address] Dr. Josie Sanchez AST [Catalytic activity/Vol] 18 U/L Normal 15-37 [facility] Comment on above: Performed By: #### Clyde MEANS UMICRO #### [facility] [address] [place] [address] Dr. Josie Sanchez Bilirubin [Mass/Vol] 0.7 mg/dL Normal 0.2-1.0 [facility] Comment on above: Performed By: #### KIAN VALERIORO #### [facility] [address] [place] [address] Dr. Josie Sanchez Calcium [Mass/Vol] 8.7 mg/dL Normal 8.5-10.1 [facility] Comment on above: Performed By: #### KIAN VALERIORO #### [facility] [address] [place] [address] Dr. Josie Sanchez Chloride [Moles/Vol] 103 mmol/L Normal 98-107 [facility] Comment on above: Performed By: #### Clyde MEANS UMICRO #### [facility] [address] [place] [address] Dr. Josie Sanchez CO2 [Moles/Vol] 30.1 mmol/L Normal 21.0-32.0 [facility] Comment on above: Performed By: #### KIAN VALERIORO #### [facility] [address] [place] [address] Dr. Josie Sanchez Creatinine [Mass/Vol] 0.66 mg/dL Normal 0.55-1.02 [facility] Comment on above: Performed By: #### Clyde MEANS UMICRO #### [facility] [address] [place] [address] Dr. Josie Sanchez EGFR-AF [place] >60 Normal >=60 [facility] Comment on above: Performed By: #### RILEY VALERIO #### [facility] [address] [place] [address] Dr. Josie Sanchez EGFR-NON AF [place] >60 Normal >=60 [facility] Comment on above: Performed By: #### RILEY VALERIO #### [facility] [address] [place] [address] Dr. Josie Sanchez Globulin (S) [Mass/Vol] 4.3 g/dL Normal T [facility] Comment on above: Performed By: #### RILEY VALERIO #### [facility] [address] [place] [address] Dr. Josie Sanchez Glucose [Mass/Vol] 90 mg/dL Normal 74-106 [facility] Comment on above: Performed By: #### RILEY VALERIO #### [facility] [address] [place] [address] Dr. Josie Sanchez Potassium [Moles/Vol] 3.6 mmol/L Normal 3.5-5.1 [facility] Comment on above: Performed By: #### RILEY VALERIO #### [facility] [address] [place] [address] Dr. Josie Sanchez Protein [Mass/Vol] 8.0 g/dL Normal 6.4-8.2 [facility] Comment on above: Performed By: #### RILEY VALERIO #### [facility] [address] [place] [address] Dr. Josie Sanchez Sodium [Moles/Vol] 140 mmol/L Normal 136-145 [facility] Comment on above: Performed By: #### RILEY VALERIO #### [facility] [address] [place] [address] Dr. Josie Sanchez Urea nitrogen [Mass/Vol] 12.0 mg/dL Normal 7.0-18.0 [facility] Comment on above: Performed By: #### RILEY VALERIO #### [facility] [address] [place] [address] Dr. Josie Sanchez Urea nitrogen/Creatinine [Mass ratio] 18.2 mg/mg Normal [facility] Comment on above: Performed By: #### RILEY VALERIO #### [facility] [address] [place] [address] Dr. Josie Sanchez TSHon 08-12-2022 TSH 3.070 uIU/mL Normal 0.358-3.740 [facility] Comment on above: Performed By: #### P REGQNT #### [facility] [address] [place] [address] Dr. Josie Sanchez PREG QUANT HCGon 06-22-2022 HCG QUANT 1 mIU/mL Normal [facility] Comment on above: Performed By: #### RILEY VALERIO #### [facility] [address] [place] [address] Dr. Josie Sanchez HCG RANGE SEE BELOW Normal [facility] Comment on above: Result Comment: 5-50 0.2-1 WEEK 50-500 1-2 WEEKS 100-5,000 2-3 WEEKS 500-10,000 3-4 WEEKS 1,000-50,000 4-5 WEEKS 10,000-100,000 5-6 WEEKS 15,000-200,000 6-8 WEEKS 10,000-100,000 2-3 MONTHS Performed By: #### KIAN VALERIORO #### [facility] [address] [place] [address] Dr. Josie Sanchez PREG QUANT HCGon 05-20-2022 HCG QUANT 6 mIU/mL Normal [facility] Comment on above: Performed By: #### P REGQNT #### [facility] [address] [place] [address] Dr. Josie Sanchez HCG RANGE SEE BELOW Normal [facility] Comment on above: Result Comment: 5-50 0.2-1 WEEK 50-500 1-2 WEEKS 100-5,000 2-3 WEEKS 500-10,000 3-4 WEEKS 1,000-50,000 4-5 WEEKS 10,000-100,000 5-6 WEEKS 15,000-200,000 6-8 WEEKS 10,000-100,000 2-3 MONTHS Performed By: #### P REGQNT #### [facility] [address] [place] [address] Dr. Josie Sanchez PREG QUANT HCGon 05-14-2022 HCG QUANT 26 mIU/mL Normal [facility] Comment on above: Performed By: #### P REGQNT #### [facility] [address] [place] [address] Dr. Josie Sanchez HCG RANGE SEE BELOW Normal [facility] Comment on above: Result Comment: 5-50 0.2-1 WEEK 50-500 1-2 WEEKS 100-5,000 2-3 WEEKS 500-10,000 3-4 WEEKS 1,000-50,000 4-5 WEEKS 10,000-100,000 5-6 WEEKS 15,000-200,000 6-8 WEEKS 10,000-100,000 2-3 MONTHS Performed By: #### P REGQNT #### [facility] [address] [place] [address] Dr. Josie Sanchez CBC AUTO DIFFon 05-08-2022 BASO # 0.0 103/ul Normal 0.0-0.1 [facility] Comment on above: Performed By: #### RILEY VALERIO #### [facility] [address] [place] [address] Dr. Josie Sanchez Basophils/100 WBC (Bld) 0.2 % Normal 0.2-2.0 T [facility] Comment on above: Performed By: #### RILEY VALERIO #### [facility] [address] [place] [address] Dr. Josie Sanchez EO # 0.0 103/ul Normal 0.0-0.7 [facility] Comment on above: Performed By: #### RILEY VALERIO #### [facility] [address] [place] [address] Dr. Josie Sanchez Eosinophils/100 WBC (Bld) 0.5 % Critically low 0.9-7. 0 [facility] Comment on above: Performed By: #### RILEY VALERIO #### [facility] [address] [place] [address] Dr. Josie Sanchez Erythrocyte distribution width (RBC) [Ratio] 12.8 % Normal 11.0-15.0 [facility] Comment on above: Performed By: #### E MIGUELANGEL, UMICRO #### [facility] [address] [place] [address] Dr. Josie Sanchez Hematocrit (Bld) [Volume fraction] 41.0 % Normal 36.0-48.0 [facility] Comment on above: Performed By: #### E MIGUELANGEL, UMICRO #### [facility] [address] [place] [address] Dr. Josie Sanchez Hemoglobin (Bld) [Mass/Vol] 13.4 g/dL Normal 12.0-16.0 [facility] Comment on above: Performed By: #### Clyde MEANS UMICRO #### [facility] [address] [place] [address] Dr. Josie Sanchez IG # 0.02 10e3/ul Normal 0.00-0.03 [facility] Comment on above: Performed By: #### Clyde MEANS UMICRO #### [facility] [address] [place] [address] Dr. Josie Sanchez IG % 0.3 % Normal 0.0-0.5 [facility] Comment on above: Performed By: #### Clyde MEANS, UMICRO #### [facility] [address] [place] [address] Dr. Josie Sanchez LYMPH # 1.6 103/ul Normal 1.2-3.8 [facility] Comment on above: Performed By: #### E MIGUELANGEL, UMICRO #### [facility] [address] [place] [address] Dr. Josie Sanchez Lymphocytes/100 WBC (Bld) 27.1 % Normal 20.5-60.0 [facility] Comment on above: Performed By: #### Clyde RUJolie, UMICRO #### [facility] [address] [place] [address] Dr. Josie Sanchez MANUAL DIFF REQ NO Normal [facility] Comment on above: Performed By: #### ROBERT VALERIOICRO #### [facility] [address] [place] [address] Dr. Josie Sanchez MCH (RBC) [Entitic mass] 29.3 pg Normal 26.7-34.0 [facility] Comment on above: Performed By: #### Clyde MEANS UMICRO #### [facility] [address] [place] [address] Dr. Josie Sanchez MCHC (RBC) [Mass/Vol] 32.7 g/dL Normal 29.9-35.2 [facility] Comment on above: Performed By: #### ROBERT VALERIOICRO #### [facility] [address] [place] [address] Dr. Josie Sanchez MCV (RBC) [Entitic vol] 89.5 fL Normal 81.0-99.0 [facility] Comment on above: Performed By: #### KIAN VALERIORO #### [facility] [address] [place] [address] Dr. Josie Sanchez MONO # 0.5 103/ul Normal 0.3-0.8 [facility] Comment on above: Performed By: #### KIAN VALERIORO #### [facility] [address] [place] [address] Dr. Josie Sanchez Monocytes/100 WBC (Bld) 8.6 % Normal 1.7-12.0 [facility] Comment on above: Performed By: #### KIAN VALERIORO #### [facility] [address] [place] [address] Dr. Josie Sanchez NEUT # 3.7 103/ul Normal 1.4-6.5 [facility] Comment on above: Performed By: #### KIAN VALERIORO #### [facility] [address] [place] [address] Dr. Josie Sanchez Neutrophils/100 WBC (Bld) 63.3 % Normal 43.0-75.0 [facility] Comment on above: Performed By: #### KIAN VALERIORO #### [facility] [address] [place] [address] Dr. Josie Sanchez Platelet mean volume (Bld) [Entitic vol] 9.8 fL Normal 9.5-13.5 [facility] Comment on above: Performed By: #### Clyde MEANS, ICRO #### [facility] [address] [place] [address] Dr. Josie Sanchez PLT 238 103/ul Normal 150-450 [facility] Comment on above: Performed By: #### Clyde MEANS, [facility] #### [facility] [address] [place] [address] Dr. Josie Sanchez RBC 4.58 106/ul Normal 4.20-5.40 [facility] Comment on above: Performed By: #### Clyde MEANS, [facility] #### [facility] [address] [place] [address] Dr. Josie Sanchez WBC 5.8 103/ul Normal 4.0-11.0 [facility] Comment on above: Performed By: #### Clyde MEANS, [facility] #### [facility] [address] [place] [address] Dr. oJsie Sanchez PREG QUANT HCGon 05-08-2022 HCG QUANT 2335 mIU/mL Normal [facility] Comment on above: Performed By: #### P REGQNT #### [facility] [address] [place] [address] Dr. Josie Sanchez HCG RANGE SEE BELOW Normal [facility] Comment on above: Result Comment: 5-50 0.2-1 WEEK 50-500 1-2 WEEKS 100-5,000 2-3 WEEKS 500-10,000 3-4 WEEKS 1,000-50,000 4-5 WEEKS 10,000-100,000 5-6 WEEKS 15,000-200,000 6-8 WEEKS 10,000-100,000 2-3 MONTHS Performed By: #### P REGQNT #### [facility] [address] [place] [address] Dr. Josie Sanchez CBC AUTO DIFFon 05-07-2022 BASO # 0.0 103/ul Normal 0.0-0.1 [facility] Comment on above: Performed By: #### RILEY VALERIO #### [facility] [address] [place] [address] Dr. Josie Sanchez Basophils/100 WBC (Bld) 0.2 % Normal 0.2-2.0 [facility] Comment on above: Performed By: #### RILEY VALERIO #### [facility] [address] [place] [address] Dr. Josie Sanchez EO # 0.0 103/ul Normal 0.0-0.7 [facility] Comment on above: Performed By: #### RILEY VALERIO #### [facility] [address] [place] [address] Dr. Josie Sanchez Eosinophils/100 WBC (Bld) 0.3 % Critically low 0.9-7. 0 [facility] Comment on above: Performed By: #### RILEY VALERIO #### [facility] [address] [place] [address] Dr. Josie Sanchez Erythrocyte distribution width (RBC) [Ratio] 12.8 % Normal 11.0-15.0 [facility] Comment on above: Performed By: #### RILEY VALERIO #### [facility] [address] [place] [address] Dr. Josie Sanchez Hematocrit (Bld) [Volume fraction] 41.2 % Normal 36.0-48.0 [facility] Comment on above: Performed By: #### RILEY VALERIO #### [facility] [address] [place] [address] Dr. Josie Sanchez Hemoglobin (Bld) [Mass/Vol] 13.3 g/dL Normal 12.0-16.0 [facility] Comment on above: Performed By: #### RILEY VALERIO #### [facility] [address] [place] [address] Dr. Josie Sanchez IG # 0.02 10e3/ul Normal 0.00-0.03 [facility] Comment on above: Performed By: #### RILEY VALERIO #### [facility] [address] [address] [address] Josie Sanchez IG % 0.3 % Normal 0.0-0.5 [facility] Comment on above: Performed By: #### E MIGUELANGEL, UMICRO #### [facility] [address] [address] [address] Josie Sanchez LYMPH # 1.0 103/ul Critically low 1.2-3.8 [facility] Comment on above: Performed By: #### E MIGUELANGEL, UMICRO #### [facility] [address] [place] [address] Dr. Josie Sanchez Lymphocytes/100 WBC (Bld) 15.5 % Critically low 20.5-6 0.0 [facility] Comment on above: Performed By: #### E MIGUELANGEL, UMICRO #### [facility] [address] [place] [address] Dr. Josie Sanchez MANUAL DIFF REQ NO Normal [facility] Comment on above: Performed By: #### Clyde MEANS, UMICRO #### [facility] [address] [place] [address] Dr. Josie Sanchez MCH (RBC) [Entitic mass] 28.9 pg Normal 26.7-34.0 [facility] Comment on above: Performed By: #### Clyde MEANS, UMICRO #### [facility] [address] [place] [address] Dr. Josie Sanchez MCHC (RBC) [Mass/Vol] 32.3 g/dL Normal 29.9-35.2 [facility] Comment on above: Performed By: #### E MIGUELANGEL, UMICRO #### [facility] [address] [place] [address] Dr. Josie Sanchez MCV (RBC) [Entitic vol] 89.6 fL Normal 81.0-99.0 [facility] Comment on above: Performed By: #### E MIGUELANGEL, UMICRO #### [facility] [address] [place] [address] Dr. Josie Sanchez MONO # 0.4 103/ul Normal 0.3-0.8 [facility] Comment on above: Performed By: #### RILEY VALERIO #### [facility] [address] [place] [address] Dr. Josie Sanchez Monocytes/100 WBC (Bld) 6.2 % Normal 1.7-12.0 [facility] Comment on above: Performed By: #### RILEY VALERIO #### [facility] [address] [place] [address] Dr. Josie Sanchez NEUT # 5.0 103/ul Normal 1.4-6.5 [facility] Comment on above: Performed By: #### RILEY VALERIO #### [facility] [address] [place] [address] Dr. Josie Sanchez Neutrophils/100 WBC (Bld) 77.5 % Critically high 43.0- 75.0 [facility] Comment on above: Performed By: #### RILEY VALERIO #### [facility] [address] [place] [address] Dr. Josie Sanchez Platelet mean volume (Bld) [Entitic vol] 10.2 fL Normal 9.5-13.5 [facility] Comment on above: Performed By: #### RILEY VALERIO #### [facility] [address] [place] [address] Dr. Josie Sanchez PLT 237 103/ul Normal 150-450 [facility] Comment on above: Performed By: #### RILEY VALERIO #### [facility] [address] [place] [address] Dr. Josie Sanchez RBC 4.60 106/ul Normal 4.20-5.40 [facility] Comment on above: Performed By: #### RILEY VALERIO #### [facility] [address] [place] [address] Dr. Josie Sanchez WBC 6.5 103/ul Normal 4.0-11.0 [facility] Comment on above: Performed By: #### RILEY VALERIO #### [facility] [address] [place] [address] Dr. Josie Sanchez [facility]10 SARS-CoV-2 (COVID-19) RNA ALEXA+probe Ql (Unsp spec) Not detected Normal NOT DETECTED [facility] Comment on above: Result Comment: This test is not yet approved or cleared by the [place] FDA. When there are no FDA-approved or cleared tests available, and other criteria are met, FDA can make tests available under an emergency access mechanism called an Emergency Use Authorization (EUA). The EUA for this test is supported by the [place] of Health and Human Service's (HHS's) declaration [...] SARS-CoV-2. Performed By: #### RILEY VALERIO #### [facility] [address] [place] [address] Dr. Josie Sanchez PREG QUANT HCGon 05-07-2022 HCG QUANT 2745 mIU/mL Normal [facility] Comment on above: Performed By: #### RILEY VALERIO #### [facility] [address] [place] [address] Dr. Josie Sanchez HCG RANGE SEE BELOW Normal [facility] Comment on above: Result Comment: 5-50 0.2-1 WEEK 50-500 1-2 WEEKS 100-5,000 2-3 WEEKS 500-10,000 3-4 WEEKS 1,000-50,000 4-5 WEEKS 10,000-100,000 5-6 WEEKS 15,000-200,000 6-8 WEEKS 10,000-100,000 2-3 MONTHS Performed By: #### RILEY VALERIO #### [facility] [address] [place] [address] Dr. Josie Sanchez US PREG TVon 05-05-2022 [...] by: PEREZ DURBIN Date: 2022-05-05 14:42 Normal [facility] ER URINE PROFILEon 2 Bilirubin Ql (U) Negative Normal NEGATIVE [facility] Comment on above: Performed By: #### Clyde MEANS UMICRO #### [facility] [address] [place] [address] Dr. Josie Sanchez Clarity (U) CLEAR Normal CLEAR [facility] Comment on above: Performed By: #### Clyde MEANS UMICRO #### [facility] [address] [place] [address] Dr. Josie Sanchez Color (U) YELLOW Normal YELLOW [facility] Comment on above: Performed By: #### Clyde MEANS UMICRO #### [facility] [address] [place] [address] Dr. Josie Sanchez ERUAHD A micrscopic examination will be performed if indicated. Normal [facility] Comment on above: Performed By: #### E MIGUELANGEL UMICRO #### [facility] [address] [place] [address] Dr. Josie Sanchez Glucose Ql (U) Negative Normal NEGATIVE [facility] Comment on above: Performed By: #### E MIGUELANGEL UMICRO #### [facility] [address] [place] [address] Dr. Josie Sanchez Hemoglobin Ql (U) SMALL Abnormal NEGATIVE [facility] Comment on above: Performed By: #### KIAN VALERIORO #### [facility] [address] [place] [address] Dr. Josie Sanchez Ketones Ql (U) 15 mg/dl Abnormal NEGATIVE [facility] Comment on above: Performed By: #### KIAN VALERIORO #### [facility] [address] [place] [address] Dr. Josie Sanchez LEUKOCYTES Negative Normal NEGATIVE [facility] Comment on above: Performed By: #### KIAN VALERIORO #### [facility] [address] [place] [address] Dr. Josie Sanchez Nitrite Ql (U) Negative Normal NEGATIVE [facility] Comment on above: Performed By: #### KIAN VALERIORO #### [facility] [address] [place] [address] Dr. Josie Sanchez pH (U) 6.0 [pH] Normal 5-9 [facility] Comment on above: Performed By: #### KIAN VALERIORO #### [facility] [address] [place] [address] Dr. Josie Sanchez SPEC GRAVITY 1.020 Normal 1.005-<=1.02 5 [facility] Comment on above: Performed By: #### KIAN VALERIORO #### [facility] [address] [place] [address] Dr. Josie Sanchez UA PROTEIN Negative Normal NEGATIVE/ TRACE [facility] Comment on above: Performed By: #### KIAN VALERIORO #### [facility] [address] [place] [address] Dr. Josie Sanchez UR MICRO IND INDICATED Normal [facility] Comment on above: Performed By: #### KIAN VALERIORO #### [facility] [address] [place] [address] Dr. Josie Sanchez Urobilinogen Qn (U) 0.2 {Fabricio'U}/dL Normal 0.2 - 1. 0 [facility] Comment on above: Performed By: #### ROBERT VALERIOICRO #### [facility] [address] [place] [address] Dr. Josie Sanchez URINE MICROSCOPIC ONLYon BACTERIA NONE SEEN Normal NONE SEEN [facility] Comment on above: Performed By: #### Clyde MEANS UMICRO #### [facility] [address] [place] [address] Dr. Josie Sanchez Bacteria identified Cx Nom (U) NOT INDICATED Normal [facility] Comment on above: Performed By: #### Clyde MEANS UMICRO #### [facility] [address] [place] [address] Dr. Josie Sanchez CAST NONE SEEN Normal NONE SEEN [facility] Comment on above: Performed By: #### KIAN VALERIORO #### [facility] [address] [place] [address] Dr. Josie Sanchez Crystals LM Nom (Urine sed) NONE SEEN Normal NONE SEEN [facility] Comment on above: Performed By: #### ROBERT VALERIOICRO #### [facility] [address] [place] [address] Dr. Josie Sanchez Epithelial cells LM Ql (Urine sed) NONE SEEN Normal NONE SEEN /RARE [facility] Comment on above: Performed By: #### ROBERT VALERIOICRO #### [facility] [address] [place] [address] Dr. Josie Sanchez MUCOUS MODERATE Abnormal NONE SEEN [facility] Comment on above: Performed By: #### Clyde MEANS UMICRO #### [facility] [address] [place] [address] Dr. Josie Sanchez RBC 0-2 Normal 0-2 [facility] Comment on above: Performed By: #### Clyde MEANS UMICRO #### [facility] [address] [place] [address] Dr. Josie Sanchez WBC NONE SEEN Normal NONE SEEN [facility] Comment on above: Performed By: #### KIAN VALERIORO #### [facility] [address] [place] [address] Dr. Josie Sanchez PREG QUANT HCGon 04-20-2022 HCG QUANT 17870 mIU/mL Normal [facility] Comment on above: Performed By: #### Clyde MEANS, UMGEORGIARO #### [facility] [address] [place] [address] Dr. Josie Sanchez HCG RANGE SEE BELOW Normal [facility] Comment on above: Result Comment: 5-50 0.2-1 WEEK 50-500 1-2 WEEKS 100-5,000 2-3 WEEKS 500-10,000 3-4 WEEKS 1,000-50,000 4-5 WEEKS 10,000-100,000 5-6 WEEKS 15,000-200,000 6-8 WEEKS 10,000-100,000 2-3 MONTHS Performed By: #### Clyde MEANS, ICRO #### [facility] [address] [place] [address] Dr. Josie Sanchez HCG-BETA SUBUNIT QUANTon hCG,Beta Subunit,Qnt,Serum <1 Normal [facility] Comment on above: Result Comment: Fema le (Non-) 0 - 5 (Postmenopausal) 0 - 8 . Female () Weeks of Gestation 3 6 - 71 4 10 - 750 5 217 - 7138 6 158 - 31324 7 [phone] -[phone] 8 40088 -[phone] 9 99568 -750649 10 92930 -526593 12 92063 -756982 14 38045 - 77343 15 32648 - 43045 16 0254 - 12390 17 9941 - 68471 18 9114 - 18225 [place] ECLIA methodology Performed By: #### Clyde MEANS ICRO #### [facility] [address] [place] [address] Dr. Josie Sanchez CBC AUTO DIFFon 02-18-2022 BASO # 0.0 103/ul Normal 0.0-0.1 [facility] Comment on above: Performed By: #### C BC #### [facility] [address] [place] [address] Dr. Josie Sanchez Basophils/100 WBC (Bld) 0.2 % Normal 0.2-2.0 [facility] Comment on above: Performed By: #### C BC #### [facility] [address] [place] [address] Dr. Josie Sanchez EO # 0.1 103/ul Normal 0.0-0.7 [facility] Comment on above: Performed By: #### C BC #### [facility] [address] [place] [address] Dr. Josie Sanchez Eosinophils/100 WBC (Bld) 0.8 % Critically low 0.9-7. 0 [facility] Comment on above: Performed By: #### C BC #### [facility] [address] [place] [address] Dr. Josie Sanchez Erythrocyte distribution width (RBC) [Ratio] 12.5 % Normal 11.0-15.0 [facility] Comment on above: Performed By: #### C BC #### [facility] [address] [place] [address] Dr. Josie Sanchez Hematocrit (Bld) [Volume fraction] 39.5 % Normal 36.0-48.0 [facility] Comment on above: Performed By: #### C BC #### [facility] [address] [place] [address] Dr. Josie Sanchez Hemoglobin (Bld) [Mass/Vol] 13.0 g/dL Normal 12.0-16.0 [facility] Comment on above: Performed By: #### C BC #### [facility] [address] [place] [address] Dr. Josie Sanchez IG # 0.02 10e3/ul Normal 0.00-0.03 [facility] Comment on above: Performed By: #### C BC #### [facility] [address] [place] [address] Dr. Josie Sanchez IG % 0.3 % Normal 0.0-0.5 [facility] Comment on above: Performed By: #### C BC #### [facility] [address] [place] [address] Dr. Josie Sanchez LYMPH # 1.5 103/ul Normal 1.2-3.8 [facility] Comment on above: Performed By: #### C BC #### [facility] [address] [place] [address] Dr. Josie Sanchez Lymphocytes/100 WBC (Bld) 22.9 % Normal 20.5-60.0 [facility] Comment on above: Performed By: #### C BC #### [facility] [address] [place] [address] Dr. Josie Sanchez MANUAL DIFF REQ NO Normal [facility] Comment on above: Performed By: #### C BC #### [facility] [address] [place] [address] Dr. Josie Sanchez MCH (RBC) [Entitic mass] 30.3 pg Normal 26.7-34.0 [facility] Comment on above: Performed By: #### C BC #### [facility] [address] [place] [address] Dr. Josie Sanchez MCHC (RBC) [Mass/Vol] 32.9 g/dL Normal 29.9-35.2 [facility] Comment on above: Performed By: #### C BC #### [facility] [address] [place] [address] Dr. Josie Sanchez MCV (RBC) [Entitic vol] 92.1 fL Normal 81.0-99.0 [facility] Comment on above: Performed By: #### C BC #### [facility] [address] [place] [address] Dr. Josie Sanchez MONO # 0.4 103/ul Normal 0.3-0.8 [facility] Comment on above: Performed By: #### C BC #### [facility] [address] [place] [address] Dr. Josie Sanchez Monocytes/100 WBC (Bld) 5.7 % Normal 1.7-12.0 [facility] Comment on above: Performed By: #### C BC #### [facility] [address] [place] [address] Dr. Josie Sanchez NEUT # 4.6 103/ul Normal 1.4-6.5 [facility] Comment on above: Performed By: #### C BC #### [facility] [address] [address] [address] Josie Sanchez Neutrophils/100 WBC (Bld) 70.1 % Normal 43.0-75.0 [facility] Comment on above: Performed By: #### C BC #### [facility] [address] [place] [address] Dr. Josie Sanchez Platelet mean volume (Bld) [Entitic vol] 10.0 fL Normal 9.5-13.5 [facility] Comment on above: Performed By: #### C BC #### [facility] [address] [place] [address] Dr. Josie Sanchez PLT 242 103/ul Normal 150-450 [facility] Comment on above: Performed By: #### C BC #### [facility] [address] [place] [address] Dr. Josie Sanchez RBC 4.29 106/ul Normal 4.20-5.40 [facility] Comment on above: Performed By: #### C BC #### [facility] [address] [place] [address] Dr. Josie Sanchez WBC 6.5 103/ul Normal 4.0-11.0 [facility] Comment on above: Performed By: #### C BC #### [facility] [address] [place] [address] Dr. Josie Sanchez LIPID PROFILEon 02-18-2022 CHOL-HDL RATIO NORM SEE BELOW Normal [facility] Comment on above: Result Comment: 3.3 - 4.4 LOW RISK 4.4 - 7.1 AVERAGE RISK 7.1 - 11.0 MODERATE RISK >11.0 HIGH RISK Performed By: #### L IPID, TSH #### [facility] [address] [place] [address] Dr. Josie Sanchez Cholesterol [Mass/Vol] 182 mg/dL Normal <=[address] [facility] Comment on above: Performed By: #### L IPID, TSH #### [facility] [address] [place] [address] Dr. Josie Sanchez Cholesterol in HDL [Mass/Vol] 40 mg/dL Normal 40-60 [facility] Comment on above: Performed By: #### L IPID, TSH #### [facility] [address] [address] [address] Josie Sanchez Cholesterol in LDL [Mass/Vol] 122.4 mg/dL Normal [facility] Comment on above: Performed By: #### L IPID, TSH #### [facility] [address] [address] [address] Josie Sanchez Cholesterol.total/Choleste rol in HDL [Mass ratio] 4.6 {ratio} Normal [facility] Comment on above: Performed By: #### L IPID, TSH #### [facility] [address] [address] [address] Josie Sanchez HDL NORMAL > or = 60 mg/dl - LOW CARDIOVASCULAR RISK <40 mg/dl - HIGH CARDIOVASCULAR RISK Normal [facility] Comment on above: Performed By: #### L IPID, TSH #### [facility] [address] [place] [address] Dr. Josie Sanchez LDL CALC NORMAL SEE BELOW Normal [facility] Comment on above: Result Comment: <100 mg/dl OPTIMAL 100 - 129 mg/dl NEAR OR ABOVE OPTIMAL 130 - 159 mg/dl BORDERLINE HIGH 160 - 189 mg/dl HIGH >190 mg/dl VERY HIGH Performed By: #### L IPID, TSH #### [facility] [address] [address] [address] Josie Sanchez Triglyceride [Mass/Vol] 98 mg/dL Normal <=150 T [facility] Comment on above: Performed By: #### L IPID, TSH #### [facility] [address] [address] [address] Josie Sanchez VLDL CALC 19.6 mg/dL Normal [facility] Comment on above: Performed By: #### L IPID, TSH #### [facility] [address] [place] [address] Dr. Josie Sanchez PROTIMEon 02-18-2022 INR Coag (PPP) [Relative time] 1.10 {INR} Normal [facility] Comment on above: Performed By: #### P REGQNT #### [facility] [address] [address] [address] Josie Sanchez INR GUIDELINES SEE BELOW Normal [facility] Comment on above: Result Comment: PAULINA RED INR: 2.0 - 3.0 CONDITIONS NOT LISTED BELOW 2.5 - 3.5 FOR PROSTHETIC HEART VALVE REPLACEMENT 2.5 - 3.5 RECURRENT THROMBOSIS Performed By: #### P REGQNT #### [facility] [address] [address] [address] Josie Sanchez PT Coag (PPP) [Time] 11.8 s Critically high 9.0-11.6 [facility] Comment on above: Performed By: #### P REGQNT #### [facility] [address] [place] [address] Dr. Josie Sanchez PTTon 02-18-2022 aPTT Coag (Bld) [Time] 29.8 s Normal 22.3-36.2 [facility] Comment on above: Performed By: #### P REGQNT #### [facility] [address] [place] [address] Dr. Josie Sanchez TSHon 02-18-2022 TSH 3.410 uIU/mL Normal 0.358-3.740 [facility] Comment on above: Performed By: #### L IPID, TSH #### [facility] [address] [place] [address] Dr. Josie Sanchez US PELVIS AND TRANSVAGon [...] by: PEREZ DURBIN Date: 2022-02-18 18:56 Normal [facility] Nursing Note - Woundon 08-15 Nursing Note - Wound [id number] 55565#3.00CD:127 Normal [facility] Coding Summary.on 08-08-2020 Coding Summary. CODING DATE: 08/08/2020 FINAL [facility] DSC STATUS: Home (Routine DC) PAYOR: Medicaid EAPG [...] Date Saved: 08/08/2020 10:31 am [facility] Formson 08-08-2020 Forms [id number] 0459#1.00CD:127 [facility] Home Health Recordson 2019 Home Health Records [id number] 3EFD#1.00CD:127 [facility] Ambulatory Clinical Summaryo n 07-26-2020 Ambulatory Clinical Summary {5p-00-2l-61-26-59 -09-6t-02-05-b0-03 -33-60-e2-c7}CD:61 [id number] [facility] Home Health Recordson 2019 Home Health Records [id number] 0EC7#1.00CD:127 [facility] Progress Note - Woundon 07-09 Progress Note - Wound [id number] 99340#2.00CD:127 [facility] Consent for Treatmenton 07-09 Consent for Treatment [id number] AFAA#1.00CD:127 [facility] Multi-Wound Charton 07-25-20 20 Multi-Wound Chart [id number] 25875#1.00CD:127 [facility] Nursing Assessment - Woundon 07-25-2020 Nursing Assessment - Wound [id number] 7. [id number] 82735#1.00CD:127 [facility] Physician Orderon 07-25-2020 Physician Order [id number] 40577#1.00CD:127 [facility] Home Health Recordson 2019 Home Health Records [id number] 3741#1.00CD:127 [facility] Home Health Recordson 2019 Home Health Records [id number] 3554#1.00CD:127 [facility] Coding Summary.on 07-12-2020 Coding Summary. 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 However, the narrative phrase printed from the coding software may appear abbreviated, or result in slightly different terminology. Coded By: Aicha Bledsoe CphT Date Saved: 07/12/2020 03:05 pm [facility] Coding Summary. 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 However, the narrative phrase printed from the coding software may appear abbreviated, or result in slightly different terminology. Coded By: Aicha Bledsoe CphT Date Saved: 07/12/2020 03:03 pm [facility] Multi-Wound Charton 07-12-20 20 Multi-Wound Chart [id number] 94575#1.00CD:127 [facility] Nursing Assessment - Woundon 07-12-2020 Nursing Assessment - Wound [id number] 7.202 [id number] 53712#1.00CD:127 [facility] Nursing Note - Woundon 07-12 Nursing Note - Wound [id number] 66766#1.00CD:127 [facility] Consent for Procedure/Surger yon 07-11-2020 Consent for Procedure/Surgery [id number] 55010#1.00CD:127 [facility] Consent for Treatmenton Consent for Treatment [id number] B36A#1.00CD:127 [facility] Home Health Recordson 2019 Home Health Records [id number]#1.00CD:127 [facility] Home Health Records [id number]#1.00CD:127 [facility] Physician Orderon 07-11-2020 Physician Order [id number]#1.00CD:127 [facility] Progress Note - Woundon Progress Note - Wound [id number] 02710#1.00CD:127 [facility] Nursing Note - Woundon 07-02 Nursing Note - Wound [id number] 93526#3.00CD:127 [facility] Consent for Procedure/Surger yon 06-28-2020 Consent for Procedure/Surgery [id number] 0200#1.00CD:127 [facility] Consent to Photographon 06-10 Consent to Photograph [id number]. [id number] 0326#1.00CD:127 [facility] HIPAA Privacy Documentson HIPAA Privacy Documents [id number]. [id number] 0158#1.00CD:127 [facility] Nursing Note - Woundon 06-28 Nursing Note - Wound [id number]. [id number] 0289#1.00CD:127 [facility] Nursing Note - Wound [id number]. [id number] 0217#1.00CD:127 [facility] Consent for Treatmenton 06-09 Consent for Treatment [id number] EEDA#1.00CD:127 [facility] Multi-Wound Charton 06-27-20 20 Multi-Wound Chart [id number] 63573#1.00CD:127 [facility] Nursing Assessment - Woundon 06-27-2020 Nursing Assessment - Wound [id number] [id number] 43408#1.00CD:127 [facility] Physician Orderon 06-27-2020 Physician Order [id number] 09777#2.00CD:127 [facility] Progress Note - Woundon 06-09 Progress Note - Wound [id number] 32919#1.00CD:127 [facility] HIPAA Privacy Documentson HIPAA Privacy Documents [id number] 02 [id number]#1.00CD:127 [facility] Outside Records Officeon Outside Records Office [id number] [facility] Vital Signs Date Time Vital Sign Value Performing Clinician Facility 01-22-2025 11:19-0400 Body mass index (BMI) [Ratio] 30.95 kg/m2 Norbert Silvia DO Work Phone: [facility] 01-22-2025 [id number] Body weight 71.89 kg Norbert Silvia DO Work Phone: [facility] 01-22-2025 11:19-0400 Diastolic blood pressure 74 mm[Hg] Norbert Silvia DO Work Phone: [facility] 01-22-2025 11:19-0400 Systolic blood pressure 130 mm[Hg] Norbert Silvia DO Work Phone: [facility] 01-15-2025 10:26-0400 Body mass index (BMI) [Ratio] 30.69 kg/m2 Norbert Silvia DO Work Phone: [facility] 01-15-2025 10:26-0400 Body weight 71.27 kg Norbert Silvia DO Work Phone: [facility] 01-15-2025 10:26-0400 Diastolic blood pressure 68 mm[Hg] Norbert Silvia DO Work Phone: [facility] 01-15-2025 10:26-0400 Systolic blood pressure 110 mm[Hg] Norbert Silvia DO Work Phone: [facility] 01-08-2025 10:41-0400 Body mass index (BMI) [Ratio] 31.01 kg/m2 Norbert Silvia DO Work Phone: [facility] 01-08-2025 10:41-0400 Body weight 72.03 kg Norbert Silvia DO Work Phone: [facility] 01-08-2025 10:41-0400 Diastolic blood pressure 68 mm[Hg] Norbert Silvia DO Work Phone: [facility] 01-08-2025 10:41-0400 Systolic blood pressure 112 mm[Hg] Norbert Silvia DO Work Phone: [facility] 12-26-2024 09:35-0400 Body mass index (BMI) [Ratio] 31.08 kg/m2 Norbert Silvia DO Work Phone: [facility] 12-26-2024 09:35-0400 Body weight 72.18 kg Norbert Silvia DO Work Phone: [facility] 12-26-2024 09:35-0400 Diastolic blood pressure 68 mm[Hg] Norbert Silvia DO Work Phone: [facility] 12-26-2024 09:35-0400 Systolic blood pressure 110 mm[Hg] Norbert Silvia DO Work Phone: [facility] 12-11-2024 08:39-0400 Body mass index (BMI) [Ratio] 31.93 kg/m2 Norbert Silvia DO Work Phone: [facility] 12-11-2024 08:39-0400 Body weight 74.16 kg Norbert Silvia DO Work Phone: [facility] 12-11-2024 08:39-0400 Diastolic blood pressure 80 mm[Hg] Norbert Silvia DO Work Phone: [facility] 12-11-2024 08:39-0400 Systolic blood pressure 110 mm[Hg] Norbert Silvia DO Work Phone: [facility] 11-27-2024 13:25-0400 Body mass index (BMI) [Ratio] 31.25 kg/m2 Norbert Silvia DO Work Phone: [facility] 11-27-2024 13:25-0400 Body weight 72.58 kg Norbert Silvia DO Work Phone: [facility] 11-27-2024 13:25-0400 Diastolic blood pressure 76 mm[Hg] Norbert Silvia DO Work Phone: [facility] 11-27-2024 13:25-0400 Systolic blood pressure 124 mm[Hg] Norbert Silvia DO Work Phone: [facility] 10-09-2024 10:01-0500 Body mass index (BMI) [Ratio] 31.52 kg/m2 Gen Kang MD Work Phone: [facility] 10-09-2024 10:01-0500 Body weight 73.21 kg Gen Kang MD Work Phone: [facility] 10-09-2024 10:01-0500 Diastolic blood pressure 83 mm[Hg] Gen Kang MD Work Phone: [facility] 10-09-2024 10:01-0500 Heart rate 89 /min Gen Kang MD Work Phone: [facility] 10-09-2024 10:01-0500 Systolic blood pressure 131 mm[Hg] Gen Kang MD Work Phone: [facility] 10-02-2024 14:30-0500 Body mass index (BMI) [Ratio] 31.52 kg/m2 Norbert Silvia DO Work Phone: [facility] 10-02-2024 14:30-0500 Body weight 73.21 kg Norbert Silvia DO Work Phone: [facility] 10-02-2024 14:30-0500 Diastolic blood pressure 78 mm[Hg] Norbert Silvia DO Work Phone: [facility] 10-02-2024 14:30-0500 Systolic blood pressure 130 mm[Hg] Norbert Silvia DO Work Phone: [facility] 09-04-2024 13:50-0500 Body mass index (BMI) [Ratio] 30.86 kg/m2 Norbert Silvia DO Work Phone: [facility] 09-04-2024 13:50-0500 Body weight 71.67 kg Norbert Silvia DO Work Phone: [facility] 09-04-2024 13:50-0500 Diastolic blood pressure 78 mm[Hg] Norbert Silvia DO Work Phone: [facility] 09-04-2024 13:50-0500 Systolic blood pressure 122 mm[Hg] Norbert Silvia DO Work Phone: [facility] 07-28-2024 11:10-0500 Body mass index (BMI) [Ratio] 31.09 kg/m2 [facility] 07-28-2024 11:10-0500 Body weight 72.21 kg [facility] Nurse [facility] 07-28-2024 11:10-0500 Diastolic blood pressure 91 mm[Hg] [facility] 07-28-2024 11:10-0500 Systolic blood pressure 122 mm[Hg] [facility] Nurse [facility] 11-20-2022 15:05-0400 Body height 152.4 cm Gloria Hayden Other [facility] Other 11-20-2022 15:05-0400 Body mass index (BMI) [Ratio] 11.72 kg/m2 Gloria Hayden Other [facility] Other 11-20-2022 15:05-0400 Body temperature 97.7 [degF] Gloria Hayden Other [facility] Other 11-20-2022 15:05-0400 Body weight 27.22 kg Gloria Hayden Other [facility] Other 11-20-2022 15:05-0400 Respiratory rate 18 /min Gloria Hayden Other [facility] Other 11-20-2022 15:05-0400 SaO2% (BldA) [Mass fraction] 97 % Gloria Hayden Other [facility] Other Encounters Encounter Date Encounter Type Care Provider Facility Start: 01-22-2025 End: 01-22-2025 Bamboo flowsheet Norbert Silvia DO Work Phone: [facility] Start: 01-22-2025 End: 01-22-2025 Bamboo flowsheet Norbert Silvia DO Work Phone: [facility] Start: 01-22-2025 End: 01-22-2025 Office outpatient visit 15 minutes Norbert Silvia DO Work Phone: [facility] Comment on above: Vomiting affecting p regnancy ([facility]) (Primary Dx); 36 weeks gestation of ([facility]); Third trimester ([facility]) Start: 01-18-2025 End: 01-19-2025 Clinisync Result Encounter Norbert Silvia DO Work Phone: [facility] Unsolicited Start: 01-18-2025 End: 01-19-2025 Clinisync Result Encounter Norbert Silvia DO Work Phone: [facility] Unsolicited Start: 01-15-2025 End: 01-15-2025 Bamboo flowsheet Norbert Silvia DO Work Phone: [facility] Start: 01-15-2025 End: 01-15-2025 Bamboo flowsheet Norbert Silvia DO Work Phone: [facility] Start: 01-15-2025 End: 01-15-2025 ambulatory NORBERT SILVIA Not Available Start: 01-15-2025 End: 01-15-2025 Office outpatient visit 15 minutes Norbert Silvia DO Work Phone: [facility] Comment on above: 35 weeks gestation o f ; Third trimester Start: 01-08-2025 End: 01-08-2025 Bamboo flowsheet Norbert Silvia DO Work Phone: [facility] Start: 01-08-2025 End: 01-08-2025 Bamboo flowsheet Norbert Silvia DO Work Phone: [...] trimester Start: 11-07-2024 End: 11-07-2024 ambulatory NORBERT RNicko SILVIA [facility] Start: 10-30-2024 End: 10-30-2024 ambulatory NORBERT SILVIA Not Available Start: 10-30-2024 End: 10-30-2024 Bamboo flowsheet Norbert Silvia DO Work Phone: [facility] Start: 10-30-2024 End: 10-30-2024 Bamboo flowsheet Norbert Silvia DO Work Phone: [facility] Start: 10-09-2024 End: 10-09-2024 Office consultation new/estab patient 60 min Gen Kang MD Work Phone: [facility] Comment on above: Multigravida of adva nced maternal age in second trimester (Primary Dx) Start: 10-09-2024 End: 10-09-2024 Orders Only ySdni Kennedy RN [facility]- Medic ine at [facility] Comment on above: Multigravida of adva nced [...] Kang MD Work Phone: [facility] Start: 09-04-2024 End: 09-04-2024 Bamboo flowsheet Norbert [...] Start: 07-31-2024 End: 07-31-2024 ambulatory Norbert Silvia Facility:[facility] Start: 07-31-2024 End: 07-31-2024 Clinisync Result [...] 11-20-2022 End: 11-20-2022 ambulatory Gloria Hayden Other [employer] Other Start: 11-20-2022 Office outpatient vi sit [...] preprocedural laboratory examination DR NORBERT VEGA . [facility] Start: 05-08-2022 End: 05-08-[address] [...] Date Procedure Procedure Detail Performing Clinician Start: 01-22-2025 Urnls dip stick/tabl et rgnt non-auto w/o micrscp Norbert Silvia DO Work Phone: Start: 01-18-2025 US OB BPP W NON-STRESS Norebrt Silvia DO Work Phone: Start: 01-15-2025 Urnls dip stick/tabl et rgnt non-auto w/o micrscp Norbert Silvia DO Work Phone: Start: 01-08-2025 Urnls dip stick/tabl et rgnt [...] dip stick/tabl et rgnt non-auto w/o micrscp Nrobert Silvia DO Work Phone: Start: 12-09-2024 [facility] UA (CLEAN/CATCH) MICROSCOPIC IF INDICATE Norbert Silvia DO Work Phone: Start: 11-30-2024 [facility] UA (CLEAN/CATCH) DIRECTOR TRADE/MICRO IF IND. Norbert Patelo DO Work Phone: Start: 11-27-2024 Urnls dip stick/tabl et rgnt non-auto w/o micrscp Norbert Gutiérrezzio DO Work Phone: Start: 10-02-2024 RECURRENT VAGINITIS (HTRX) Norbert Patelo DO Work Phone: Start: 10-02-2024 Urnls dip stick/tabl et rgnt non-auto w/o micrscp Norbert Patelo DO Work Phone: Start: 09-13-2024 AFP, SERUM, OPEN SPI NA BIFIDA Norbert Gutiérrezzio DO Work Phone: Start: 09-04-2024 Urnls dip stick/tabl et rgnt non-auto w/o micrscp Norbert Patelo DO Work Phone: Start: 07-31-2024 [facility] DRUG SCREEN RAPI D (URINE) Norbert Vega DO Work Phone: Start: 07-28-2024 BOX TEST Norbert tabares DO Work Phone: Start: 07-28-2024 End: 07-28-2024 Urnls dip stick/tablet rgnt non-auto w/o micrscp Norbert Patelo DO Work Phone: Start: 06-27-2024 [facility] PREG QUANT HCG Core y Silvia DO Work Phone: Start: 06-21-2024 [facility] PREG QUANT HCG Core y Silvia DO Work Phone: Start: 06-19-2024 [facility] PREG QUANT HCG Core y Silvia DO Work Phone: Start: 09-20-2023 ALL CBC WITH AUTO DIFF Norbert Patelo DO Work Phone: Start: 12-21-2022 Microscopic observat ion [Identifier] in Cervix by Cyto stain Norbert Vega DO Work Phone: H/O: section History of delivery affecting Sydni Kennedy RN Plan of Treatment Date Care Activity Detail Author Start: 12-22-2027 Screening for malign ant neoplasm of cervix [facility] Start: 10-09-2025 Adult BMI Screening Adult BMI Screen ing [facility] Start: 10-09-2025 Tobacco Screening Tobacco Screening [facility] Start: 10-09-2025 End: 10-09-2025 US MFM with or without consult US MFM with or without consult Imaging Routine Multigravida of advanced maternal age in second trimester History of delivery affecting Expected: 10/09/2025 (Approximate), Expires: 10/09/2025 [facility] Work Phone: Comment on above: Expected: 10/09/2025 (Approximate), Expires: 10/09/2025 Start: 04-09-2025 Influenza vaccination Influenz a Vaccine (Season Ended) [facility] Start: 01-22-2025 End: 01-22-2026 CULTURE, GROUP B STREP WITH SUSCEPTIBLITY CULTURE, GROUP B STREP WITH SUSCEPTIBLITY Lab Routine Third trimester ([facility]) Expected: 01/22/2025, Expires: 01/22/2026 [facility] Work Phone: Comment on above: Expected: 01/22/2025 , Expires: 01/22/2026 Start: 01-22-2025 End: 01-22-2025 Patient encounter procedure 01/22/2025 10:30 AM EDT Routine [facility] [address] [place] [address] Norbert Vega DO [facility] [place] [address] [facility] Start: 01-15-2025 End: 01-15-2025 Patient encounter procedure 01/15/2025 10:00 AM EDT Routine [facility] [address] [place] [address] Norbert Vega, DO [address] [place] [address] [facility] Start: 01-08-2025 End: 01-08-2025 Patient encounter procedure 01/08/2025 10:00 AM EDT Routine [facility] [address] [place] [address] Norbert Vega, DO [address] [place] [address] [facility] Start: 12-26-2024 End: 12-26-2024 Patient encounter procedure 12/26/2024 9:00 AM EDT Routine [facility] [address] [place] [address] Norbert Vega, DO [address] [place] [address] [facility] Start: 12-11-2024 End: 12-11-2024 Patient encounter procedure 12/11/2024 8:30 AM EDT Routine [facility] [address] [place] [address] Norbert Vega, DO [address] [place] [address] [facility] Start: 12-11-2024 End: 12-11-2024 Professional / ancillary services management 12/11/2024 8:00 AM EDT Ancillary Procedure [facility] [address] [place] [id number] [facility] Start: 11-27-2024 End: 05-29-2025 [...] in third trimester Expected: 11/27/2024, Expires: 03/29/2025 [facility] Comment on above: Expected: 11/27/2024 , Expires: 03/29/2025 Start: 11-13-2024 End: 11-13-2024 Patient encounter procedure 11/13/2024 2:00 PM EDT Office Visit [facility] [address] [place] [id number] Norbert Vega, DO [address] [place] [address] [facility] Start: 11-07-2024 End: 11-07-2024 Patient encounter procedure 11/07/2024 10:00 AM EDT Appointment [facility] - Ultrasound [address] [place] [address] [facility] - Ultrasound Start: 10-30-2024 End: 10-30-2024 Patient encounter procedure [facility] Comment on above: Anemia during pregna ncy in second trimester Start: 10-09-2024 End: 10-09-2024 Patient encounter procedure [facility] Start: 10-02-2024 End: 10-02-2024 Patient encounter procedure 10/02/2024 2:10 PM EST Routine [facility] [address] [place] [id number] Norbert Vega, DO [address] [place] [address] [facility] Start: 10-02-2024 End: 10-02-2025 CBC panel - Blood by Automated count CBC Lab Routine Diabetes mellitus screening Expected: 10/02/2024 (Approximate), Expires: 10/02/2025 [facility] Work Phone: Comment on above: Expected: 10/02/2024 (Approximate), Expires: 10/02/2025 Start: 10-02-2024 End: 10-02-2025 Measurement of glucose 1 hour after glucose challenge for glucose tolerance test Glucose tolerance, 1 hour Lab Routine Diabetes mellitus screening Expected: 10/02/2024 (Approximate), Expires: 10/02/2025 [facility] Comment on above: Expected: 10/02/2024 (Approximate), Expires: 10/02/2025 Start: 09-04-2024 End: 10-05-2024 Alpha fetoprotein, maternal Alpha fetoprotein, maternal Lab Routine Need for maternal serum alpha-protein (MSAFP) screening Expected: 09/04/2024 (Approximate), Expires: 10/05/2024 [facility] Work Phone: Comment on above: Expected: 09/04/2024 (Approximate), Expires: 10/05/2024 Start: 09-04-2024 End: 09-04-2024 Patient encounter procedure [facility] Comment on above: Arrived Start: 07-28-2024 End: 07-28-2025 ABO/Rh ABO/Rh Lab Routine Missed menses , unspecified gestational age Expected: 07/28/2024 (Approximate), Expires: 07/28/2025 [facility] Comment on above: Expected: 07/28/2024 (Approximate), Expires: 07/28/2025 Start: 07-28-2024 End: 07-28-2025 Blood type and Indirect antibody screen panel - Blood Type and screen Lab Routine Missed menses , unspecified gestational age Expected: 07/28/2024 (Approximate), Expires: 07/28/2025 [facility] Work Phone: Comment on above: Expected: 07/28/2024 (Approximate), Expires: 07/28/2025 Start: 07-28-2024 End: 07-28-2025 Drugs of abuse panel - Urine by Screen method Rapid drug screen, urine Lab Routine , unspecified gestational age Encounter for supervision of normal first in first trimester Expected: 07/28/2024 (Approximate), Expires: 07/28/2025 [facility] Comment on above: Expected: 07/28/2024 (Approximate), Expires: 07/28/2025 Start: 07-28-2024 End: 07-28-2025 US Pelvis transvaginal US OB transvaginal Imaging Routine Missed menses Expected: 07/28/2024 (Approximate), Expires: 07/28/2025 [facility] Comment on above: Expected: 07/28/2024 (Approximate), Expires: 07/28/2025 Start: 07-28-2024 End: 07-28-2024 ambulatory 07/28/2024 10:30 AM EST Initial [facility] [address] [facility] [place] [address] [facility] Start: 04-09-2024 Influenza vaccination Influenza Vacc ine [facility] Start: 2006 Screening for malign ant neoplasm of cervix Pap Smear [facility] Start: 2004 DTaP,Tdap and Td Vaccines (1 - Tdap) DTaP,Tdap and Td Vaccines (1 - Tdap) [facility] Start: 10-30-2003 Adult BMI Screening Adult BMI Screen ing [facility] Start: 1997 Depression Screening Depression Scre ening [facility] Start: 1997 Tobacco Screening Tobacco Screening [facility] Bacteria identified in Urine by Culture Urine culture Microbiology Routine Missed menses Ordered: 07/28/2024 [facility] Comment on above: Ordered: 07/28/2024 CBC W Auto Different ial panel - Blood CBC and differential Lab Routine Missed menses , unspecified gestational age Ordered: 07/28/2024 [facility] Comment on above: Ordered: 07/28/2024 CHLAMYDIA TRACHOMATI S (GENITO/STI) CHLAMYDIA TRACHOMATIS (GENITO/STI) Lab Routine , unspecified gestational age Ordered: 10/02/2024 [facility] Comment on above: Ordered: 10/02/2024 Hemoglobin A1c/Hemoglobin.total in Blood Hemoglobin A1c Lab Routine Missed menses , unspecified gestational age Ordered: 07/28/2024 [facility] Comment on above: Ordered: 07/28/2024 Hepatitis B virus surface Ag [Presence] in Serum or Plasma by Immunoassay Hepatitis B surface antigen Lab Routine Missed menses , unspecified gestational age Ordered: 07/28/2024 [facility] Comment on above: Ordered: 07/28/2024 Hepatitis C virus Ab [Presence] in Serum or Plasma by Immunoassay Hepatitis C antibody Lab Routine Missed menses , unspecified gestational age Ordered: 07/28/2024 [facility] Comment on above: Ordered: 07/28/2024 HIV-1/HIV-2 antigen/antibody combination immunoassay HIV-1 and HIV-2 antibodies Lab Routine Missed menses , unspecified gestational age Ordered: 07/28/2024 [facility] Comment on above: Ordered: 07/28/2024 Neisseria gonorrhoea e DNA [Presence] in Unspecified specimen by ALEXA with probe detection Neisseria gonorrhea DNA probe, direct Lab Routine , unspecified gestational age Ordered: 10/02/2024 [facility] Comment on above: Ordered: 10/02/2024 Reagin Ab [Presence] in Serum by RPR RPR Lab Routine Missed menses , unspecified gestational age Ordered: 07/28/2024 [facility] Comment on above: Ordered: 07/28/2024 Rubella antibody, IgG Rubella an tibody, IgG Lab Routine Missed menses , unspecified gestational age Ordered: 07/28/2024 [facility] Comment on above: Ordered: 07/28/2024 SURESWAB(R) ADVANCED VAGINITIS PLUS, TMA SURESWAB(R) ADVANCED VAGINITIS PLUS, TMA Pathology and Cytology Routine , unspecified gestational age Ordered: 10/02/2024 [facility] Comment on above: Ordered: 10/02/2024 Payers Date Payer Category Payer Medicaid [id number] 2022 Medicaid [id number] 2. [id number] 1985 Unknown [id number] 2.16.84 0.1.310612.3.579.2.593 1985 Unknown [id number] 2.16.84 0.1.221200.3.579.2.593 1985 Unknown [id number] 2.16.84 0.1.609216.3.579.2.593 1985 Unknown [id number] 2.16.84 0.1.500839.3.579.2.593 1985 Unknown [id number] 2.16.84 0.1.386742.3.579.2.593 1985 Unknown [id number] 2.16.84 0.1.789928.3.579.2.593 1985 Unknown [id number] 2.16.84 0.1.966611.3.579.2.593 1985 Unknown [id number] 2.16.84 0.1.022445.3.579.2.593 1985 Unknown [id number] 2.16.84 0.1.657028.3.579.2.593 1985 Unknown [id number] 2.16.84 0.1.754721.3.579.2.593 1985 Unknown [id number] 2.16.84 0.1.665115.3.579.2.593 1985 Unknown [id number] 2.16.84 0.1.351411.3.579.2.593 1985 Unknown [id number] 2.16.84 0.1.076587.3.579.2.593 1985 Unknown [id number] 2.16.84 0.1.538555.3.579.2.593 1985 Unknown [id number] 2.16.84 0.1.918677.3.579.2.593 1985 Unknown [id number] 2.16.84 0.1.039183.3.579.2.593 1985 Unknown [id number] 2.16.84 0.1.344020.3.579.2.593 1985 Unknown [id number] 2.16.84 0.1.908651.3.579.2.593 1985 Unknown [id number] 2.16.84 0.1.325092.3.579.2.593 1985 Unknown [id number] 2.16.84 0.1.925731.3.579.2.593 1985 Unknown [id number] 2.16. 840.1.453907.3.579.2.1286 1985 Unknown [id number] 2.16. 840.1.991796.3.579.2.1286 1985 Unknown [id number] 2.16. 840.1.063296.3.579.2.1286 1985 Unknown [id number] 2.16.8 40.1.958064.3.579.2.1259 1985 Unknown [id number] 2.16.84 0.1.256159.3.579.2.1259 1985 Unknown [id number] 2.16.84 0.1.477935.3.579.2.1259 1985 Unknown [id number] 2.16.84 0.1.398690.3.579.2.1259 1985 Unknown [id number] 2.16.84 0.1.222077.3.579.2.1259 1985 Unknown [id number] 2.16.84 0.1.149552.3.579.2.1259 1985 Unknown [id number] 2.16.84 0.1.522586.3.579.2.1259 1985 Unknown [id number] 2.16.84 0.1.938499.3.579.2.1259 1985 Unknown [id number] 2.16.84 0.1.918928.3.579.2.1259 1985 Unknown [id number] 2.16.84 0.1.771753.3.579.2.1259 1959 Self-pay 1959 Unknown [id number] Unknown [id number] 2.16.8 40.1.435223.3.579.2.531 Social History Date Type Detail Facility Unknown if ever smoked [facility] Other Start: 12-21-2022 End: 07-28-2024 Sex Assigned At [facility] Other Start: 12-21-2022 End: 10-09-2024 Tobacco smoking status NHIS Never smoked tobacco [facility] Start: 12-21-2022 End: 10-09-2024 Tobacco use and exposure Smokeless tobacco non-user [facility] Start: 08-23-2023 End: 01-15-2025 Alcohol intake Current drinker of alcohol (finding) [facility] Start: 12-21-2022 End: 07-28-2024 History of Social function [facility] Start: 01-14-2023 Alcohol Comment caffeine intake: occasionally [facility] Start: 1985 Sex Assigned At Not on file [facility] Start: 05-27-2024 [facility] Start: 09-08-2024 End: 10-09-2024 Alcoholic beverage intake Ex-drinker (finding) [facility] Childcare Unknown [facility] Start: 10-20-2018 Alcohol Comment occassionally [facility] Start: 03-14-2015 Sex Female (finding) [facility] Clinical Notes 05-08-2022 to 01-22-2025 Samara Burns NP - 01/22/2025 10:30 AM JACQUELINE Woods - 01/15/2025 10:00 AM Nubia Short LPN - 01/08/2025 10:10 AM Lowell Calderon LPN - 12/26/2024 9:00 AM EDT Note Date & Type Note Facility 01-22-2025 History of Present illness Narrative Reason for [...] of D&C Hx of tubal ligation Miscarriage ([facility]) ([facility]) HISTORY PAST MEDICAL HISTORY SOCIAL HISTORY Past Medical History: Diagnosis Date Abnormal uterine bleeding Depression Dysmenorrhea History of x4 History of D&C Hx of tubal ligation Miscarriage ([facility]) x2 ([facility]) x6 Social History Tobacco Use [...] LOW TRANSVERSE x4 PAP SMEAR 06/18/2021 negative VT DILATION & CURETTAGE DX&/THER NONOBSTETRIC TONSILLECTOMY TUBAL [...] nursing note reviewed. Exam conducted with a histotechnologist supervisor present. Vitals: Estimated body mass index is 30.95 kg/m as calculated from the following: Height as of 03/01/23: 5'. Weight as of this encounter: 158 lb 8 oz. BP: 130/74 Patient's last menstrual period was 05/13/2024. ASSESSMENT & PLAN ICD-10-CM 1. 36 weeks gestation of ([facility]) Z3A.36 POCT urinalysis dipstick manually resulted 2. Third trimester ([facility]) Z34.93 CULTURE, GROUP B STREP WITH SUSCEPTIBLITY [...] Norbert Vega DO documented in this encounter [facility] 01-15-2025 History of Present illness Narrative Reason for [...] History: Diagnosis Date Abnormal uterine bleeding Depression ([facility]) Dysmenorrhea History of History of D&C Hx [...] LOW TRANSVERSE x4 PAP SMEAR 06/18/2021 negative VT DILATION & CURETTAGE DX&/THER NONOBSTETRIC TONSILLECTOMY TUBAL [...] Vitals: Estimated body mass index is 30.69 kg/m as calculated from the following: Height [...] Documented by JACQUELINE Pacheco on behalf of: Norbert Vega DO documented in this encounter [facility] 01-08-2025 History of Present illness Narrative Reason [...] Ambulatory Problems Diagnosis Date Noted Anxiety, generalized ([facility]) 01/15/2023 Resolved Ambulatory Problems Diagnosis Date Noted No Resolved Ambulatory Problems Past Medical History: Diagnosis Date Abnormal uterine bleeding Depression ([facility] [facility] Dysmenorrhea History of History of D&C Hx of tubal ligation Miscarriage HISTORY PAST MEDICAL HISTORY SOCIAL HISTORY Past Medical History: Diagnosis Date Abnormal uterine bleeding Depression ([facility]) Dysmenorrhea History of x4 History of D&C [...] LOW TRANSVERSE x4 PAP SMEAR 06/18/2021 negative [place] DILATION & CURETTAGE DX&/THER NONOBSTETRIC TONSILLECTOMY TUBAL [...] nursing note reviewed. Exam conducted with a histotechnologist supervisor present. Vitals: Estimated body mass index is [...] Norbert Vega DO documented in this encounter [facility] 12-26-2024 History of Present illness Narrative Reason [...] Ambulatory Problems Diagnosis Date Noted Anxiety, generalized ([facility]) 01/15/2023 Resolved Ambulatory Problems Diagnosis Date Noted No Resolved Ambulatory Problems Past Medical History: Diagnosis Date Abnormal uterine bleeding Depression ([facility]) Dysmenorrhea History of History of D&C Hx of tubal ligation Miscarriage HISTORY PAST MEDICAL HISTORY SOCIAL HISTORY Past Medical History: Diagnosis Date Abnormal uterine bleeding Depression ([facility]) Dysmenorrhea History of x4 History of D&C [...] LOW TRANSVERSE x4 PAP SMEAR 06/18/2021 negative VT DILATION & CURETTAGE DX&/THER NONOBSTETRIC TONSILLECTOMY TUBAL [...] nursing note reviewed. Exam conducted with a histotechnologist supervisor present. Vitals: Estimated body mass index is [...] Norbert Vega DO documented in this encounter [facility] 12-11-2024 History of Present illness Narrative Reason [...] Ambulatory Problems Diagnosis Date Noted Anxiety, generalized ([facility]) 01/15/2023 Resolved Ambulatory Problems Diagnosis Date Noted No Resolved Ambulatory Problems Past Medical History: Diagnosis Date Abnormal uterine bleeding Depression ([facility]) Dysmenorrhea History of History of D&C Hx of tubal ligation Miscarriage HISTORY PAST MEDICAL HISTORY SOCIAL HISTORY Past Medical History: Diagnosis Date Abnormal uterine bleeding Depression ([facility]) Dysmenorrhea History of x4 History of D&C [...] LOW TRANSVERSE x4 PAP SMEAR 06/18/2021 negative VT DILATION & CURETTAGE DX&/THER NONOBSTETRIC TONSILLECTOMY TUBAL [...] nursing note reviewed. Exam conducted with a histotechnologist supervisor present. Vitals: Estimated body mass index is 31.93 kg/m as calculated from the following: Height as of 23: 5'. Weight as of this encounter: 163 [...] She presented to the OB Floor at [facility] and was monitored and then evaluated in the ED and hydrated and placed on Clindamycin. She is feeling much improved and without urinary symptoms. Documented by Samara Burns NP on behalf of: Norbert Vega DO documented in this encounter [facility] 11-27-2024 History of Present illness Narrative Reason [...] Ambulatory Problems Diagnosis Date Noted Anxiety, generalized ([facility]) 01/15/2023 Resolved Ambulatory Problems Diagnosis Date Noted No Resolved Ambulatory Problems Past Medical History: Diagnosis Date Abnormal uterine bleeding Depression ([facility]) Dysmenorrhea History of History of D&C Hx of tubal ligation Miscarriage HISTORY PAST MEDICAL HISTORY SOCIAL HISTORY Past Medical History: Diagnosis Date Abnormal uterine bleeding Depression ([facility]) Dysmenorrhea History of x4 History of D&C [...] LOW TRANSVERSE x4 PAP SMEAR 06/18/2021 negative VT DILATION & CURETTAGE DX&/THER NONOBSTETRIC TONSILLECTOMY TUBAL [...] nursing note reviewed. Exam conducted with a histotechnologist supervisor present. Vitals: Estimated body mass index is [...] Norbert Vega DO documented in this encounter [facility] 10-09-2024 History of Present illness Narrative Headache/epigastric [...] Yes Have you been seen here at [facility] in a previous ? No Recent ER visits or hospitalizations? No Bring blood sugar log or meter with you today? (Please bring them with you for every visit at [facility]) N/A Flu vaccine (Jun-October)? No Any concerns [...] Diagnosis Major depressive disorder, single episode, mild ([facility]) Multigravida of advanced maternal age [...] in the morning., Disp: , Rfl: omega 7-nlu-oza-fish oil (Fish OiL) 300-1,000 mg capsule, Take [...] and the other consultants, we search on [employer] and all the available care everywhere epic I did review all the imaging studies of the patient available on EMR, ordered by the primary care physician and the other operations consultant HABITS: Patient activity no restrictions, [...] Follow-up in 4 weeks at our remote [place] office for completion of targeted anatomy. 3. Patient is low risk and can be delivered at 39 weeks gestation via repeat at her local hospital. 4. Growth ultrasound between 34-36 weeks gestation at her OB office. 5. Patient understands increased risk of uterine dehiscence due to multiple C-sections. DISPOSITION: At this point the patient is in complete care of her news videographer. Patient does have 1 more ultrasound scheduled with us. Thank you for allowing me to participate in Jannie Antonio . If there any questions please do not hesitate to contact us. Sincerely, GEN AKNG MD documented in this encounter [facility] 10-02-2024 History of Present illness Narrative Reason [...] LOW TRANSVERSE x4 PAP SMEAR 06/18/2021 negative VT DILATION & CURETTAGE DX&/THER NONOBSTETRIC TONSILLECTOMY TUBAL [...] nursing note reviewed. Exam conducted with a histotechnologist supervisor present. Vitals: Estimated body mass index is [...] Norbert Vega DO documented in this encounter [facility] 09-04-2024 History of Present illness Narrative Reason [...] LOW TRANSVERSE x4 PAP SMEAR 06/18/2021 negative VT DILATION & CURETTAGE DX&/THER NONOBSTETRIC TONSILLECTOMY TUBAL [...] or undercooked meat, and stay away from [facility]. Patient has been consulted regarding any further do's and don'ts of . Patient voiced understanding and all questions and concerns were answered. Discussed with patient taken Aspirin 81mg daily and referral to [facility] for level II ultrasound. Orders Placed This Encounter Procedures US OB 14+ weeks anatomy scan Alpha fetoprotein, maternal POCT urinalysis dipstick manually resulted Follow Up: Patient is to return in 4 weeks for routine OB appointment. Documented by Rosette Short LPN on behalf of: Norbert Vega DO documented in this encounter [facility] 07-28-2024 History of Present illness Narrative Reason [...] LOW TRANSVERSE x4 PAP SMEAR 06/18/2021 negative VT DILATION & CURETTAGE DX&/THER NONOBSTETRIC TONSILLECTOMY TUBAL [...] or undercooked meat, and stay away from [facility]. Patient has also been advised to [...] Gemma Dumont LPN documented in this encounter [facility] 11-20-2022 Evaluation note Encounter Date Diagnosis Assessment [...] Contact dermatitis home care material was printed fflick Other 09-30-2022 NoteEXAMINATION: US PELVIS HISTORY: Surgical procedure COMPARISON: No relevant comparison available. FINDINGS: The uterus is mildly heterogeneous in echotexture normal in size. Small amount of hypoechoic echogenicity identified within the endometrial cavity measuring 4.8 mm. Color ultrasound was not obtained IMPRESSION: Hypoechogenic endometrial cavity measuring 4.8 mm Electronically authenticated by: PEREZ DURBIN Date: 2022-05-08 18:03[facility]30[facility] NoteOPERATIVE NOTE OPERATION DATE: 05/08/2022 PROCEDURE: Suction D AND C. PREOPERATIVE DIAGNOSIS: 1. Suspected molar during first trimester. 2. Uterine mass approximately 4.5 cm. POSTOPERATIVE DIAGNOSIS: 1. Suspected molar during first trimester. 2. Uterine mass approximately 4.5 cm. 3. Significant large amounts of retained products. SURGEON: Norbert Vega D.O. OFFICE CLERK: None. BLOOD LOSS: 100 mL. URINE OUTPUT: [...] products of conception were removed using a 9-Upper Sorbian suction curette tip. Excellent hemostasis was noted. The patient tolerated the procedure well. Sponge, lap, and needle counts were correct x 2. All instruments were then removed from the patient's vagina. The patient was taken to the Recovery Room in stable condition. [facility] Diagnosis Missed menses , unspecified [...] second trimester- Primary documented in this encounter [facility]* Diagnosis Multigravida of advanced maternal age in second trimester- Primary History of delivery affecting documented in this encounter [facility]* Diagnosis Third trimester state, incidental [...] [facility] Diagnosis 35 weeks gestation of Third trimester state, incidental [facility] Diagnosis Vomiting affecting ([facility])- Primary 36 weeks gestation of ([facility]) Third trimester ([facility]) state, incidental [facility] N[facility]ative - Reported* Type Description Date Medical History Hypercholesterolemia Medical History Hormone imbalance Medical History Vitamin D deficiency Medical History Iron deficiency Surgical History C section Surgical History oral surgery Surgical History tonsillectomy and adenoidectomy Surgical History D&C 2021 Hospitalization History child fflick Other InstructionsNot on filedocumented in this [facility] this [facility] Summary Purpose Family History No [...] section and content) DATE CREATED AUTHOR 08/15/2020 [facility] DATE CREATED AUTHOR AUTHOR'S ORGANIZ ATION 12/22/2022 [facility] DATE CREATED AUTHOR AUTHOR'S ORGANIZ ATION 08/03/2024 [facility] DATE CREATED AUTHOR AUTHOR'S ORGANIZ ATION 10/10/2024 [facility] DATE CREATED AUTHOR AUTHOR'S ORGANIZ ATION 11/08/[address] [facility] DATE CREATED AUTHOR AUTHOR'S ORGANIZ ATION 01/15/2025 [facility] Special[facility] EPIC REASON FOR VISIT (unrecogniz ed section and content) Reason Comments Amenorrhea Reason Comments Routine Visit Reason Comments Advanced Maternal Age Hx C/S x4 Hx Tubal Ligation Care Teams (unrecognized sec tion and content) Code Enforcement Officer Relationship Specialty Start Date End Date Quoc Watts MD [address] [place] [address] PCP - General Family Medicine 12/28/22 Code Enforcement Officer Relationship Specialty Start Date End Date Quoc Watts MD [address] [place] [address] PCP - General Family Medicine 12/28/22 Code Enforcement Officer Relationship Specialty Start Date End Date Quoc Watts MD [address] [place] [facility] [place] [facility] [address] PCP - General Family Medicine 12/28/22 Code Enforcement Officer Relationship Specialty Start Date End Date Quoc Watts MD [address] [place] [facility] [place] [facility] [address] PCP - General Family Medicine 12/28/22 Code Enforcement Officer Relationship Specialty Start Date End Date Quoc Watts MD [address] [place] [facility] [place] [facility] [address] PCP - General Family Medicine 12/28/22 Code Enforcement Officer Relationship Specialty Start Date End Date Quoc Watts MD [address] [place] [facility] [place] [facility] [address] PCP - General Family Medicine 12/28/22 Code Enforcement Officer Relationship Specialty Start Date End Date Quoc Watts MD [address] [place] [facility] [place] [facility] [address] PCP - General Family Medicine 12/28/22 Code Enforcement Officer Relationship Specialty Start Date End Date Quoc Watts MD PCP - General 04/04/18 Code Enforcement Officer Relationship Specialty Start Date End Date Quoc Watts MD [address] [place] [facility] [place] [facility] [address] PCP - General Family Medicine 12/28/22 Code Enforcement Officer Relationship Specialty Start Date End Date Quoc Watts MD [address] [place] [facility] [place] [facility] [address] PCP - General Family Medicine 12/28/22 Code Enforcement Officer Relationship Specialty Start Date End Date Quoc Watts MD [address] [place] [facility] [place] [facility] [address] PCP - General Family Medicine 12/28/22 Code Enforcement Officer Relationship Specialty Start Date End Date Quoc Watts MD PCP - General 04/04/18 Code Enforcement Officer Relationship Specialty Start Date End Date Quoc Watts MD PCP - General 04/04/18 Code Enforcement Officer Relationship Specialty Start Date End Date Quoc Watts MD [address] [place] [facility] [place] [facility] [address] PCP - General Family Medicine 12/28/22 Code Enforcement Officer Relationship Specialty Start Date End Date Quoc Watts MD [address] [place] [facility] [place] [facility] [address] PCP - General Family Medicine 12/28/22 Code Enforcement Officer Relationship Specialty Start Date End Date Quoc Watts MD [address] [place] [facility] [place] [facility] [address] PCP - General Family Medicine 12/28/22 Code Enforcement Officer Relationship Specialty Start Date End Date Quoc Watts MD PCP - General Family Medicine 12/28/22 Code Enforcement Officer Relationship Specialty Start Date End Date Quoc Watts MD [address] [place] [address] PCP - General Family Medicine 12/28/22 Code Enforcement Officer Relationship Specialty Start Date End Date Quoc Watts MD [address] [place] [address] PCP - General Family Medicine 12/28/22 FOR [...] BE BASED ON THE PRIMARY CLINICAL RECORDS. [facility]. provides no warranty or guarantee of the accuracy or completeness of information in this document.
== END 2025-01-22 20:01 | disposition home or self-care (01) ==
LOC: LAB 20:00
PROVIDERS: PCP Family Medicine; Visit Provider Obstetrics & Gynecology
DX: Z34.93 Encounter for supervision of normal pregnancy, unspecified, third trimester (principal); Z3A.36 36 weeks gestation of pregnancy
CPT/HCPCS: 87081

== ENCOUNTER 2025-01-25 09:29 | Outpatient (OUT) | payer MEDICAID, SELFPAY ==
--- OUTSIDE RECORDS SUMMARY | 2023-11-22 10:24 | XMS_ITS | Continuity of Care Document ---
Author Organization [facility] Address [address] [place] [address] Phone Care Team Providers Care Fluid Designer Name Role Phone Macario Pichardo DMD Unavailable [...] Diagnoses Date Provider Providers Copied on Encounter [facility], [address] [place] [address], [id number], [place] tel:[phone] Dental Clinic er (chief complaint) Body mass index [BMI] 33.0-33.9, adultEncounter for screening for dental disorders Kylee Sorto. [address] [place] [address], [id number] , [place]. tel:[phone] Family History Family Member Type Diagnosis Age At Onset No Information Payers Payer name Insurance type Covered green party ID Authoriza tion(s) D Medicaid [facility] [id number] Social History Type Description Quantity Date Captured [...]
--- OUTSIDE RECORDS SUMMARY | 2024-06-27 09:37 | XMS_ITS ---
Author Organization [facility] in [place] Address [address] [place] [address] Care Team Providers Care File Clerk Data Entry Name Role Phone Emeka Watts Primary Care Provider REASON FOR VISIT anxiety Encounters Encounter Location Date Provider Diagnosis [address] [facility] [place] [address] 06/27/2024 Emeka Watts Plan Of Treatment No Information Progress Notes * Jannie SANON RDOB: [birth year] (38 yo F)Acc No.[id number]:06/27/2024 Patient: Jannie JEFFREY :1985 A ge:38 Y S ex:Female Address:[address] [place] [address] * true * Date: Generated for Fideli surendra/Marcus/eTransmitting on: 0 01/25/2025 09:31 AM EDT
--- OUTSIDE RECORDS SUMMARY | 2024-08-18 09:34 | XMS_ITS ---
Author Organization [facility] in [place] Address [address] [address] Care Team Providers Care Mosaicist Name Role Phone Emeka Watts Primary Care Provider [phone] REASON FOR VISIT sick Medications Medication SIG (Take, Route, Frequency, Duration) Notes Start Date End Date Status Doxycycline Monohydrate 100 MG 1 capsule Orally bid for 10 days 08/18/2024 Active Encounters Encounter Location Date Provider Diagnosis [address] [address] 08/18/2024 Emeka Javyemma Plan Of Treatment Medication Medication Name Sig Start Date Stop Date Notes Cleocin 300 MG 1 capsule Orally QID 08/11/2023 levoFLOXacin 750 MG 1 tablet Orally Once a day 05/24/2024 Doxycycline Monohydrate 100 MG 1 capsule Orally bid for 10 days 08/18/2024 Progress Notes * Jannie SANON RDOB: [birth year] (38 yo F)Acc No.[id number]:08/18/2024 Patient: Jannie JEFFREY :1985 A ge:38 Y S ex:Female Address:[address] [place] [address] * Refills Stop levoFLOXacin Tablet, 750 MG, Orally, 1 tablet, Once a day Stop Cleocin Capsule, 300 MG, Orally, 1 capsule, QID Start Doxycycline Monohydrate Capsule, 100 MG, Orally, 20 Capsule, 1 capsule, bid, 10 days, Refills=0 * true * Date: Generated for Heather agosto/Marcus/Alfreditting on: 0 01/25/2025 09:30 AM EDT
--- OUTSIDE RECORDS SUMMARY | 2024-09-11 13:00 | XMS_ITS ---
Author Organization [facility] in [place] Address [address] [place] [address] Care Team Providers Care Wastewater Engineer Name Role Phone Emeka Watts Primary Care [...] 09/11/2024 Encounters Encounter Location Date Provider Diagnosis [facility] [address] [place] [address] 09/11/2024 Emeka Hoy Acute non-recurrent sinusitis, unspecified location J01.90 and Nasal congestion R09.81 Assessments Encounter Date Diagnosis (ICD Code) Assessment Notes Treatment Notes Treatment Clinical Notes Section Notes 09/11/2024 Acute non-recurrent sinusitis, unspecified location (ICD-10 - J01.90) Rest and drink more liquids, especially water. You may use a humidifier or vaporizer to help keep the drainage moist. Qony-vhj-cpamcrf Nasal Saline may help the stuffy and runny nose. Use Ibuprofen and or Tylenol as needed for fever, chills, body aches or pain. Children 5 years old should not be given anwm-mzp-mzekbrx cough and cold medications such as guaifenesin and dextromethorphan. If you're over age 5, you may try nfqu-kqu-ykqvtmw cold medications such as guaifenesin and dextromethorphan, [...] vaporizer to help keep the drainage moist. Elut-mha-mmkxymh Nasal Saline may help the stuffy and runny nose. Use Ibuprofen and or Tylenol as needed for fever, chills, body aches or pain. Children 5 years old should not be given ijud-dpi-cfxzwrs cough and cold medications such as guaifenesin and dextromethorphan. If you're over age 5, you may try tvxq-zfu-ihkbdzf cold medications such as guaifenesin and dextromethorphan, [...] Jannie SANON RDOB: [birth year] (38 yo F)Acc No.[id number]:09/11/2024 Progress Note Patient: Jannie JEFFREY Provider: Juliane Watts ([facility])MD :1985 A ge:38 Y S ex:Female Date:09/11/2024 [facility] [id number] Check In:04:31 PM ESTCheck O ut:05:04 PM [...] Rash d enies. E NT: Comments S [facility] for details. C ardiovascular: Edema d enies. [...] Procedure Codes: * Preventive Medicine: Screenings/Counseling: B ID ACTION PLAN Above Normal BMI Follow-up D ietary management education, guidance, and counseling * Follow Up: 3 -5 days if not improving * * Sign off status: Completed Visit Status: C HK (Check Out) true * Provider: Juliane Watts ([facility])MD Date: 0 09/11/2024 Generated for Fideli surendra/Marcus/eTransmitting on: 0 01/25/2025 09:30 AM EDT History and Physical Notes * [...]
--- OUTSIDE RECORDS SUMMARY | 2025-01-15 10:00 | XMS_ITS | Encounter Summary ---
Author Organization [facility] Address [address] [place] [address] Care Team Providers Care Laborer Shaft Sinking Name Role Phone Darshan Watts MD Primary Care Provider [phone] Reason for Visit * Reason Comments Routine Visit Encounter Details Date Type Department Care Team (Late st Contact Info) Description 01/15/2025 10:00 AM EDT Routine [facility] OB [address] [place] [phone] Kannan Vega, DO [address] [facility] [address] [place] [phone] 35 weeks gestation of ([facility]); Third trimester ([facility]) Social History Tobacco Use Types Packs/Day Years [...] LOW TRANSVERSE x4 PAP SMEAR 06/18/2021 negative MS DILATION & CURETTAGE DX&/THER NONOBSTETRIC TONSILLECTOMY TUBAL [...] 10:31 AM EDT 35 weeks gestation of ([facility]) Third trimester ([facility]) documented in this encounter Results * (ABNORMAL) [...] Visit Diagnoses Diagnosis 35 weeks gestation of ([facility]) Third trimester ([facility]) state, incidental documented in this encounter Care Teams Laborer Shaft Sinking Relationship Specialty Start Date End Date Darshan Watts MD [address] [place] [address] PCP - General Family Medicine 12/28/22 documented as of this encounter
--- OUTSIDE RECORDS SUMMARY | 2025-01-22 10:30 | XMS_ITS | Encounter Summary ---
Author Organization [facility] Address [address] [place] [address] Care Team Providers Care Elementary Reading Specialist Name Role Phone Darshan Watts MD Primary Care Provider [phone] Reason for Visit * Reason Comments Routine Visit Encounter Details Date Type Department Care Team (Late st Contact Info) Description 01/22/2025 10:30 AM EDT Routine [facility] [address] [place] [phone] Kannan Vega, DO [address] [facility] [address] [place] [phone] Vomiting affecting ([facility]) (Primary Dx); 36 weeks gestation of ([facility]); Third trimester ([facility]) Social History Tobacco Use Types Packs/Day Years [...] Sign Reading Time Taken Comments Blood Pressure 130/74 01/22/2025 11:19 AM EDT Pulse - - Temperature - - Respiratory Rate - - Oxygen Saturation - - Inhaled Oxygen Concentration - - Weight 71.9 kg (158 lb 8 oz) 01/22/2025 11:19 AM EDT Height - - Body Mass Index 30.95 03/01/2023 1:24 PM EDT documented in this encounter Progress Notes * Samara Burns NP - 01/22/2025 10:30 AM EDT Reason for Appointment: Patient ID: [...] Ambulatory Problems Diagnosis Date Noted Anxiety, generalized 01/15/2023 Resolved Ambulatory Problems Diagnosis Date Noted No Resolved Ambulatory Problems Past Medical History: Diagnosis Date Abnormal uterine bleeding Depression Dysmenorrhea History of History of D&C Hx of tubal ligation Miscarriage ([facility]) ([facility]) HISTORY PAST MEDICAL HISTORY SOCIAL HISTORY Past Medical History: Diagnosis Date Abnormal uterine bleeding Depression Dysmenorrhea History of x4 History of D&C Hx of tubal ligation Miscarriage ([facility]) x2 ([facility]) x6 Social History Tobacco Use Smoking status: [...] Eyes: Negative. Respiratory: Negative. Cardiovascular: Negative. Gastrointestinal: Positive for nausea and vomiting. Genitourinary: Negative. Musculoskeletal: Negative. Skin: Negative. Neurological: [...] nursing note reviewed. Exam conducted with a pharmacy graduate intern present. Vitals: Estimated body mass index is 30.95 kg/m?? as calculated from the following: Height as of 03/01/23: 5'. Weight as of this encounter: 158 lb 8 oz. BP: 130/74 Patient's last menstrual period was 05/13/2024. ASSESSMENT & PLAN ICD-10-CM 1. 36 weeks gestation of ([facility]) Z3A.36 POCT urinalysis dipstick manually resulted 2. Third trimester ([facility]) Z34.93 CULTURE, GROUP B STREP WITH SUSCEPTIBLITY CULTURE, GROUP B STREP WITH SUSCEPTIBLITY Return OB: Patient presents today for a routine obstetrics appointment. Patient is currently 36w2d . Patient states she is doing well but has complaints of being tired due to current . Patient has verbalizes frequent movement. labor precautions was discussed/given and patient was instructed to perform kick counts three times a day. Orders Placed This Encounter Procedures CULTURE, GROUP B STREP WITH SUSCEPTIBLITY POCT urinalysis dipstick manually resulted Follow Up: Patient is to return to office in 1 week for routine OB appointment. Documented by Samara Burns NP on behalf of: Kannan Vega DO documented in this encounter Plan of Treatment Scheduled Orders Name Type Priority Associated Diagnoses Orde r Schedule CULTURE, GROUP B STREP WITH SUSCEPTIBLITY Lab Routine Third trimester ([facility]) Expected: 01/22/2025, Expires: 01/22/2026 documented as of this encounter Procedures Procedure Name Priority Date/Time Associated Diagnosis Comments POCT URINALYSIS DIPSTICK Routine 01/22/2025 11:06 AM EDT 36 weeks gestation of ([facility]) documented in this encounter Results * (ABNORMAL) POCT urinalysis dipstick manually resulted (01/22/2025 11:06 AM EDT) Color, UA Yellow Clarity, UA Clear Glucose, UA Negative Negative - 2000(110) ++++ mg/dL Bilirubin, UA Negative Negative - 4(70) +++ mg/dL Ketones, UA Negative Negative - 160(16) ++++ mg/dL Spec Grav, UA 1.015 1 - 1.03 Blood, UA Negative Negative - 50 Doroteo/mcL pH, UA 6.5 5 - 9 Protein, UA Negative Negative - 2000(20) ++++ mg/dL Urobilinogen, UA 0.2 0.2 - 12 mg/dL Leukocytes, UA Trace Negative - 500+++ Celina/mcL Nitrite, UA Negative Negative - Positive Urine 01/22/2025 11:0 6 AM EDT Kannan Vega DO POINT OF CARE TEST ENTER/EDIT OR DERABLES Edited Result - Final documented in this encounter Visit Diagnoses Diagnosis Vomiting affecting ([facility])- Primary 36 weeks gestation of ([facility]) Third trimester ([facility]) state, incidental documented in this encounter Care Teams Elementary Reading Specialist Relationship Specialty Start Date End Date Darshan Watts MD [address] [place] [address] PCP - General Family Medicine 12/28/22 documented as of this encounter
--- OUTSIDE RECORDS SUMMARY | 2025-01-25 09:30 | XMS_ITS | Encounter Summary ---
Author Organization [facility] Address [address] [place] [address] Care Team Providers Care Parts Washer Name Role Phone Darshan Watts MD Primary Care Provider [phone] Encounter Details Date Type Department Care Team (Late st Contact Info) Description 01/15/2025 Bamboo flowsheet [facility] [address] [place] [address] Kannan Vega, DO [address] [facility] [address] [place] [place], [place] [id number] Social History Tobacco Use Types Packs/Day Years [...] on filedocumented in this encounter Care Teams Parts Washer Relationship Specialty Start Date End Date Darshan Watts MD [address] [place] [address] PCP - General Family Medicine 12/28/22 documented as of this encounter
--- OUTSIDE RECORDS SUMMARY | 2025-01-25 09:31 | XMS_ITS | Encounter Summary ---
Author Organization [facility] Address [address] [place] [address] Care Team Providers Care Dance Hall Host/Hostess Name Role Phone Darshan Watts MD Primary Care Provider [phone] Encounter Details Date Type Department Care Team (Late st Contact Info) Description 01/18/2025 Clinisync Result Encounter [facility] External Department Unsolicited Norbert Vega, DO [address] [facility] [address] [place], [place] [id number] Social History Tobacco Use Types Packs/Day Years [...] AM EDT Narrative 01/19/2025 9:28 [place] [address] Ultrasound Report Signed Patient: LB SANON MR#: [id number] : 1985 Acct:[id number] Age/Sex: 39 / F ADM Date: 01/18/25 Loc: US Attending Dr: Norbert Vega D.O. Ordering Physician: Norbert Vega D.O. Date of Service: 01/18/25 Procedure(s): US OB BPP w non-stress Accession Number(s): [id number] cc: Norbert Vega D.O.; Darshan Watts M.D. [address] [address] Patient Name: LB SANON MRN: [id number] date: 1985 Sex: F Assigned Patient Location: US Current Patient Location: Accession/Order Number: [id number] Exam Date: 01/18/2025 11:15 Report Date: 01/18/2025 [...] Bolanos M.D. 01/18/2025 11:16 AM Dictation Location: [place] [address] Electronically authenticated by: [id number] Y Date: 01/18/2025 11:16 Dictated By: Lise Bolanos M.D. Signed By: 01/19/25 0928 DD/ 1116 TD/TT: Dining Room Host/Hostess: Procedure Note Radiology, Radiologist, - 01/19/2025 [place] [address] Ultrasound Report Signed Patient: LB SANON RMR#: [id number] : 1985Acct:[id number] Age/Sex: 39 / FADM Date: 01/18/25 Loc: US Attending Dr: Norbert Vega D.O. Ordering Physician: Norbert Vega D.O. Date of Service: 01/18/25 Procedure(s): US OB BPP w non-stress Accession Number(s): [id number] cc: Norbert Vega D.O.; Darshan Watts M.D. The [address] [address] Patient Name: LB SANON MRN: [facility]:[id number] date: 1985 Sex: F Assigned Patient Location: Current Patient Location: Accession/Order Number: [id number] Exam Date: 01/18/2025 11:15 Report Date: 01/18/2025 [...] Bolanos M.D. 01/18/2025 11:16 AM Dictation Location: [place] [address] Electronically authenticated by: [id number] Y Date: 1:16 Dictated By: Lise Bolanos M.D. Signed By:01/19/25 0928 DD/ 1116 TD/TT: Dining Room Host/Hostess: us Norbert Silvia DO [facility] Final Result documented in this encounter Visit Diagnoses Not on filedocumented in this encounter Care Teams Dance Hall Host/Hostess Relationship Specialty Start Date End Date Darshan Watts MD [address] [place] [address] PCP - General Family Medicine 12/28/22 documented as of this encounter
--- OUTSIDE RECORDS SUMMARY | 2025-01-25 09:31 | XMS_ITS | Patient Health Record ---
Author Organization [facility] in [place] Address [address] [place] [address] Care Team Providers Care Gauge Inspector Name Role Phone Emeka Bell Primary Care Provider [phone] QUOC BELL Unavailable [phone] Allergies Allergen (clinical drug ingredient) Drug/Non Drug Allergy documented on EMR Reaction Allergy Type Onset Date Status sulfamethoxazole / trimethoprim Bactrim hives Drug Allergy Active cefaclor Cefaclor anaphylaxis Drug Allergy Activ e Penicillin anaphylaxis Drug Allergy Acti ve Results Component Value Reference Range Notes Progesterone Reviewed date:02/15/2024 02:45:45 PM Interpretation: Performing Lab: Notes/Report: [facility] , Progesterone 39.1 . ng/mL Service Line Coordinator: Blaise Thompson PhD, Phone: [phone] Performed at: [facility] Ovulation phase 0.1 - 12.0 Second trimester 25.4 - 83.3 Follicular phase 0.1 - 0.9 Third trimester 58.7 - 214.[address] [place] [address] [phone] Luteal phase 1.8 - 23.9 Postmenopausal 0.0 - 0.1 First trimester 11.0 - 44.3 Performing Lab: see note - [facility] LB PREG QUANT HCG Reviewed date:06/27/2024 07:58:06 PM Interpretation: Performing Lab: Notes/Report: [facility] , HCG Quantitative 84115 15,000-200,000 6-8 WEEKS 5-50 0.2-1 WEEK 500-10,000 3-4 WEEKS 1,000-50,000 4-5 WEEKS 50-500 1-2 WEEKS 10,000-100,000 2-3 MONTHS 10,000-100,000 5-6 WEEKS 100-5,000 2-3 WEEKS Performing Lab: see note ML - [facility] US OB BPP w non-stress Reviewed date:12/26/2024 06:06:43 PM Interpretation: Performing Lab: Notes/Report: Source Facility: [facility]-[address] [place] [address] [place] [address] Ultrasound Report Signed with Addenda Patient: JANNIE SANON MR#: [id number] : 1985 Acct:[id number] Age/Sex: 39 / F ADM Date: 12/21/24 Loc: US Attending Dr: Norbert Vega D.O. Ordering Physician: Norbert Vega D.O. Date of Service: 12/21/24 Procedure(s): US OB BPP w non-stress Accession Number(s): [id number] cc: Norbert Vega D.O.; Quoc Bell M.D. ADDENDUM The [place] [address] This is an addendum FINDINGS: An intrauterine [...] Metzger M.D. 12/26/2024 10:00 AM Dictation Location: [place] [address] Patient Electronically authenticated by: [id number] Y Date: 12/26/2024 10:00 Name: JANNIE SANON MRN: [id number] date: 1985 Sex: F Assigned Patient Location: [facility] Current Patient Location: Accession/Order Number: [id number] Exam Date: 12/26/2024 09:57 Report Date: 12/26/2024 10:00 At the request of: NORBERT VEGA DO Procedure: US OB BPP w non-stress [place] [address] Patient Name: AJNNIE SANON MRN: [id number] date: 1985 Sex: F Assigned Patient Location: [facility] Current Patient Location: Accession/Order Number: [id number] Exam Date: 12/21/2024 11:37 Report Date: 12/21/2024 [...] Metzger M.D. 12/21/2024 11:39 AM Dictation Location[facility] Electron[facility] authenticated by: [id number] Y Date: 12/21/2024 11:39 Addendum Dictated By: Jonah Metzger M.D. Addendum Signed By: 12/26/24 003 Addendum Cosigned By: DD/ TD/TT: / [place] [address] Patient Name: JANNIE SANON MRN: [id number] date: 1985 Sex: F Assigned Patient Location: [facility] Current Patient Location: Accession/Order Number: [id number] Exam Date: 12/21/2024 11:37 Report Date: 12/21/2024 [...] Metzger M.D. 12/21/2024 11:39 AM Dictation Location: [place] [address] Electronically authenticated by: [id number] Y Date: 12/21/2024 11:39 Dictated By: Jonah Metzger M.D. Signed By: 12/21/24 1141 DD/ 1139 TD/TT: [employer]: [place] [address] Ultrasound Report Signed with Karen Patient: JANNIE SANON MR#: [id number] : 1985 Acct:[id number] Age/Sex: 39 / F ADM Date: 12/21/24 Loc: US Attending Dr: Norbert Vega D.O. Ordering Physician: Norbert Vega D.O. Date of Service: 12/21/24 Procedure(s): US OB BPP w non-stress Accession Number(s): [id number] cc: Norbert Vega D.O. ; Quoc Bell M.D. ADDENDUM The [place] [address] This is an addendum FINDINGS: An intrauterine [...] 12/26/24 Addendum Cosigned By: DD/ TD/TT: / ADDENDUM US/US OB BPP w non-stress IMPRESSION: Single live IUP with an estimated gestational age of 30 weeks and 2 days and normal heart rate. Impression dictated by: Jonah Metzger M.D. 12/26/2024 10:00 AM [facility] Patient Electronically authenticated by: [id number] Y Date: 12/26/2024 10:00 Name: JANINE SANON MRN: [id number] date: 1985 Sex: F Assigned Patient Location: [facility] Current Patient Location: Accession/Order Number: [id number] Exam Date: 12/26/2024 09:57 Report Date: 12/26/2024 10:00 At the request of: NORBERT VEGA DO Procedure: US OB fet al BPP w non-stress [place] [id number] Patient Name: JANNIE SANON MRN: [id number] date: 1985 Sex: F Assigned Patient Location: [facility] Current Patient Location: Accession/Order Number: [id number] Exam Date: 12/21/2024 11:37 Report Date: 12/21/2024 [...] Metzger M.D. 12/21/2024 11:39 AM Dictation Location: [place] Electronically authenticated by: [id number] Y Date: 12/21/2024 11:39 Addendum Dictated By : Jonah Metzger M.D. Addendum Signed By: 12/26/24 003 Addendum Cosigned By: DD/ TD/TT: / [place] [address] Patient Name: JANNIE SANON MRN: [id number] date: 1985 Sex: F Assigned Patient Location: [facility] Current Patient Location: Accession/Order Number: [id number] Exam Date: 12/21/2024 11:37 Report Date: 12/21/2024 [...] Metzger M.D. 12/21/2024 11:39 AM Dictation Location: [place] [address] Electronically authenticated by: [id number] Y Date: 12/21/2024 11:39 Dictated By: Jonah Metzger M.D. Signed By: 12/21/24 1141 DD/ 1139 TD/TT: [employer]: US OB growth Reviewed date:12/26/2024 06:06:43 PM Interpretation: Performing Lab: Notes/Report: Source Facility: [place] [address] Ultrasound Report Signed with Addenda Patient: JANNIE SANON MR#: [id number] : 1985 Acct:[id number] Age/Sex: 39 / F ADM Date: 12/21/24 Loc: US Attending Dr: Norbert Vega D.O. Ordering Physician: Norbert Vega D.O. Date of Service: 12/21/24 Procedure(s): OB growth Accession Number(s): [id number] cc: Norbert Vega D.O.; Quoc Bell M.D. ADDENDUM The [place] [address] This is an addendum FINDINGS: An intrauterine [...] Metzger M.D. 12/26/2024 9:59 AM Dictation Location: [facility] Patient Electronically authenticated by: [id number] Y Date: 12/26/2024 09:59 Name: JANNIE SANON MRN: [facility]:[id number] date: 1985 Sex: F Assigned Patient Location: [facility] Current Patient Location: Accession/Order Number: [id number] Exam Date: 12/26/2024 09:59 Report Date: 12/26/2024 09:59 At the request of: NORBERT VEGA DO Procedure: US OB growth [address] [address] Patient Name: JANNIE SANON MRN: [id number] date: 1985 Sex: F Assigned Patient Location: [facility] Current Patient Location: Accession/Order Number: [id number] Exam Date: 12/21/2024 11:39 Report Date: 12/21/2024 [...] Metzger M.D. 12/21/2024 11:41 AM Dictation Location: [place] [address] Electronically authenticated by: [id number] Y Date: 12/21/2024 11:41 Addendum Dictated By: Jonah Metzger M.D. Addendum Signed By: 12/26/24 1 002 Addendum Cosigned By: DD/ TD/TT: / [address] [address] Patient Name: JANNIE SANON MRN: [id number] date: 1985 Sex: F Assigned Patient Location: [facility] Current Patient Location: Accession/Order Number: [id number] Exam Date: 12/21/2024 11:39 Report Date: 12/21/2024 [...] Metzger M.D. 12/21/2024 11:41 AM Dictation Location: [place] [address] Electronically authenticated by: [id number] Y Date: 12/21/2024 11:41 Dictated By: Jonah Metzger M.D. Signed By: 12/21/24 1143 DD/ 1141 TD/TT: [employer]: [place] [address] Ultrasound Report Signed with Addenda Patient: JANNIE SANON MR#: [id number] : 1985 Acct:[id number] Age/Sex: 39 / F ADM Date: 12/21/24 Loc: US Attending Dr: Norbert Vega D.O. Ordering Physician: Norbert Vega D.O. Date of Service: 12/21/24 Procedure(s): US OB growth Accession Number(s): [id number] cc: Norbert Vega D.O. ; Quoc Bell M.D. ADDENDUM The [place] [id number] This is an addendum FINDINGS: An intrauterine [...] Metzger M.D. 12/26/2024 9:59 AM Dictation Location: [place] [address] Patient Electronically authenticated by: [id number] Y Date: 12/26/2024 09:59 Name: JANNIE SANON MRN: [id number] date: 1985 Sex: F Assigned Patient Location: [facility] Current Patient Location: Accession/Order Number: [id number] Exam Date: 12/26/2024 09:59 Report Date: 12/26/2024 09:59 At the request of: NORBERT VEGA DO Procedure: US OB growth [place] [address] Patient Name: JANNIE SANON MRN: [facility]:[id number] date: 1985 Sex: F Assigned Patient Location: [facility] Current Patient Location: Accession/Order Number: [id number] Exam Date: 12/21/2024 11:39 Report Date: 12/21/2024 [...] Metzger M.D. 12/21/2024 11:41 AM Dictation Location: [place] Electronically authenticated by: [id number] Y Date: 12/21/2024 11:41 Addendum Dictated By : Jonah Metzger M.D. Addendum Signed By: 12/26/24 1 002 Addendum Cosigned By: DD/ TD/TT: / [place] [address] Patient Name: JANNIE SANON MRN: [id number] date: 1985 Sex: F Assigned Patient Location: [facility] Current Patient Location: Accession/Order Number: [id number] Exam Date: 12/21/2024 11:39 Report Date: 12/21/2024 [...] Metzger M.D. 12/21/2024 11:41 AM Dictation Location: [place] Electronically authenticated by: [id number] Y Date: 12/21/2024 11:41 Dictated By: Jonah Metzger M.D. Signed By: 12/21/24 1143 DD/ 1141 TD/TT: [employer]: US OB BPP w non-stress Reviewed date:12/28/2024 12:36:02 PM Interpretation: Performing Lab: Notes/Report: Source Facility: [place] [address] [place] [address] Ultrasound Report Signed Patient: JANNIE SANON MR#: [id number] : 1985 Acct:[id number] Age/Sex: 39 / F ADM Date: 12/28/24 Loc: US Attending Dr: Norbert Vega D.O. Ordering Physician: Norbert Vega D.O. Date of Service: 12/28/24 Procedure(s): US OB BPP w non-stress Accession Number(s): [id number] cc: Norbert Vega D.O.; Quoc Bell M.D. The [place] [address] Patient Name: JANNIE SANON MRN: [id number] date: 1985 Sex: F Assigned Patient Location: [facility] Current Patient Location: Accession/Order Number: [id number] Exam Date: 12/28/2024 10:13 Report Date: 12/28/2024 10:16 At the request of: NORBERT VEGA DO Procedure: US OB BPP w non-stress BIOPHYSICAL PROFILE: CLINICAL INFORMATION: Multigravida of advanced maternal age O09.523 COMPARISON: 12/21/2024 There is a single live intrauterine gestation in cephalic presentation. The reported gestational age is 32 weeks 5 days. The heart rate [id number] beats per minute. FINDINGS: TONE: 1 or [...] Bolanos M.D. 12/28/2024 10:16 AM Dictation Location: [place] [address] Electronically authenticated by: [id number] Y Date: 12/28/2024 10:16 Dictated By: Lise Bolanos M.D. Signed By: 12/28/24 1019 DD/ 1016 TD/TT: [employer]: [place] [address] Ultrasound Report Signed Patient: JANNIE SANON MR#: [id number] : 1985 Acct:[id number] Age/Sex: 39 / F ADM Date: 12/28/24 Loc: US Attending Dr: Norbert Vega D.O. Ordering Physician: Norbert Vega D.O. Date of Service: 12/28/24 Procedure(s): US OB BPP w non-stress Accession Number(s): [id number] cc: Norbert Vega D.O. ; Quoc Bell M.D. [place] [address] Patient Name: JANNIE SANON MRN: [id number] date: 1985 Sex: F Assigned Patient Location: [facility] Current Patient Location: Accession/Order Number: [id number] Exam Date: 12/28/2024 10:13 Report Date: 12/28/2024 10:16 At the request of: NORBERT VEGA DO Procedure: US OB fet al BPP w non-stress BIOPHYSICAL PROFILE: CLINICAL INFORMATION : Multigravida of advanced maternal age O09.523 COMPARISON: 12/21/2024 There is a single li ve intrauterine gestation in cephalic presentation. The reported gestational age is 32 weeks 5 days. The heart rate [id number] beats per minute. FINDINGS: TONE: 1 or [...] Bolanos M.D. 12/28/2024 10:16 AM Dictation Location: [place] [address] Electronically authenticated by: [id number] Y Date: 12/28/2024 10:16 Dictated By: Lise Bolanos M.D. Signed By: 12/28/24 1019 DD/ 1016 TD/TT: [employer]: Urine Culture, Routine Reviewed date:12/12/2024 09:20:54 AM Interpretation: Performing Lab: Notes/Report: [facility] , Urine Culture, Routine See Below For Report Urine Culture, Routine Urine Culture, Routine Mixed urogenital stephani Urine Culture, Routine Urine Culture, Routine 10,000-25,000 col nafisa forming units per mL Urine Culture, Routine Urine Culture, Routine Performed at: [facility] Urine Culture, Routine Urine Culture, Routine [address] [place] [phone] Urine Culture, Routine Urine Culture, Routine Service Line Coordinator: Tommy Thompson PhD, Phone: [phone] Urine Culture, Routine Performing Lab: see note LC - [facility] LB SEE REPORT - [facility] Id information not found for OBX-specific international editorial producer legend UA (CLEAN or CATCH) SYSTEM SUPPORT TECHNICIAN or M ICRO IF IND. Reviewed date:11/30/2024 06:40:07 PM Interpretation: Performing Lab: Notes/Report: [facility] , Color Urine LT. YELLOW YELLOW Clarity Urine CLEAR CLEAR Specific [place] Urine 1.010 1.005-1.025 pH Urine 6.5 5.0-9.0 Protein Urine NEGATIVE NEG/TRACE mg/dL Glucose Urine UA NEGATIVE NEGATIVE mg/dL Bilirubin Urine NEGATIVE NEGATIVE Ketones Urine NEGATIVE NEGATIVE mg/dL Blood Urine NEGATIVE NEGATIVE Nitrite Urine NEGATIVE NEGATIVE Urobilinogen Urine 0.2 0.2-1.0 EU/dL Leukocyte Esterase Urine NEGATIVE NEGATIVE Urine Microscopic Indicated NO Performing Lab: see note ML - [facility] LB Glucose 1 Hour Reviewed date:10/23/2024 08:04:33 PM Interpretation: Performing Lab: Notes/Report: [facility] , Glucose 1 Hour 106 <130 mg/dL Performing Lab: see note ML - [facility] LB CBC AUTO DIFF Reviewed date:10/23/2024 08:04:33 PM Interpretation: Performing Lab: Notes/Report: [facility] , White Blood Count 9.3 4.0-11.0 [...] 3/uL Performing Lab: see note ML - [facility] LB PREG QUANT HCG Reviewed date:06/21/2024 07:32:12 PM Interpretation: Performing Lab: Notes/Report: [facility] Quantitative 4062 100-5,000 2-3 WEEKS 500-10,000 3-4 WEEKS 5-50 0.2-1 WEEK 15,000-200,000 6-8 WEEKS 50-500 1-2 WEEKS 10,000-100,000 2-3 MONTHS 1,000-50,000 4-5 WEEKS 10,000-100,000 5-6 WEEKS Performing Lab: see note ML - [facility] LB PREG QUANT HCG Reviewed date:06/19/2024 06:30:29 PM Interpretation: Performing Lab: Notes/Report: [facility] , [facility] Quantitative 3108 5-50 0.2-1 WEEK 15,000-200,000 6-8 WEEKS 10,000-100,000 2-3 MONTHS 1,000-50,000 4-5 WEEKS 500-10,000 3-4 WEEKS 50-500 1-2 WEEKS 100-5,000 2-3 WEEKS 10,000-100,000 5-6 WEEKS Performing Lab: see note ML - [facility] LB XR foot LT min 3V Reviewed date:04/19/2024 09:29:12 PM Interpretation: Performing Lab: Notes/Report: Source Facility: [place] [address] XRay Report Signed Patient: JANNIE SANON MR#: [id number] : 1985 Acct:[id number] Age/Sex: 38 / F ADM Date: 04/17/24 Loc: RAD Attending Dr: Quoc Bell M.D. Ordering Physician: Quoc Bell M.D. Date of Service: 04/17/24 Procedure(s): XR foot LT min 3V Accession Number(s): [id number] cc: Quoc Bell M.D. [place] [address] Patient Name: JANNIE SANON MRN: [id number] date: 1985 Sex: F Assigned Patient Location: RAD Current Patient Location: Accession/Order Number: [id number] Exam Date: 04/17/2024 17:15 Report Date: 04/19/2024 [...] Signed By: 04/19/24 1026 DD/ 1024 TD/TT: [employer]: [place] [address] XRay Report Signed Patient: JANNIE SANON MR#: [id number] : 1985 Acct:[id number] Age/Sex: 38 / F ADM Date: 04/17/24 Loc: RAD Attending Dr: Sinan Bell M.D. Ordering Physician: Quoc Bell M.D. Date of Service: 04/17/24 Procedure(s): XR ally t LT min 3V Accession Number(s): [id number] cc: Quoc Bell M.D. [place] [id number] Patient Name: JANNIE SANON MRN: [id number] date: 1985 Sex: F Assigned Patient Location: [facility] Current Patient Location: Accession/Order Number: [id number] Exam Date: 04/17/2024 17:15 Report Date: 04/19/2024 [...] Signed By: 04/19/24 1026 DD/ 1024 TD/TT: [employer]: Progesterone Reviewed date:03/16/2024 12:59:10 PM Interpretation: Performing Lab: Notes/Report: [facility] , Progesterone 11.8 . ng/mL Postmenopausal 0.0 - 0.1 Service Line Coordinator: Blaise Thompson PhD, Phone: [phone] Luteal phase 1.8 - 23.9 Ovulation phase 0.1 - 12.0 Second trimester 25.4 - 83.3 Follicular phase 0.1 - 0.9 Third trimester 58.7 - 214.0 Performed at: [facility] First trimester 11.0 - 44.[address] [place] [phone] Performing Lab: see note - [facility] LB US OB BPP w non-stress Reviewed date:01/19/2025 12:53:19 PM Interpretation: Performing Lab: Notes/Report: Source Facility: [place] [address] [place] [address] Ultrasound Report Signed Patient: JANNIE SANON MR#: [id number] : 1985 Acct:[id number] Age/Sex: 39 / F ADM Date: 01/18/25 Loc: US Attending Dr: Norbert Vega D.O. Ordering Physician: Norbert Vega D.O. Date of Service: 01/18/25 Procedure(s): US OB BPP w non-stress Accession Number(s): [id number] cc: Norbert Vega D.O.; Quoc Bell M.D. [place] [address] Patient Name: JANNIE SANON MRN: [id number] date: 1985 Sex: F Assigned Patient Location: US Current Patient Location: Accession/Order Number: [id number] Exam Date: 01/18/2025 11:15 Report Date: 01/18/2025 [...] Bolanos M.D. 01/18/2025 11:16 AM Dictation Location: [place] [address] Electronically authenticated by: [id number] Y Date: 01/18/2025 11:16 Dictated By: Lise Bolanos M.D. Signed By: 01/19/25 0928 DD/ 1116 TD/TT: [employer]: [place] [address] Ultrasound Report Signed Patient: JANNIE SANON MR#: [id number] : 1985 Acct:[id number] Age/Sex: 39 / F ADM Date: 01/18/25 Loc: US Attending Dr: Norbert Vega D.O. Ordering Physician: Silvia,Norbert D.O. Date of Service: 01/18/25 Procedure(s): US OB BPP w non-stress Accession Number(s): [id number] cc: Norbert Vega D.O. ; Quoc Bell M.D. [place] [address] Patient Name: JANNIE SANON MRN: [id number] date: 1985 Sex: F Assigned Patient Location: US Current Patient Location: Accession/Order Number: [id number] Exam Date: 01/18/2025 11:15 Report Date: 01/18/2025 11:16 At the request of: NORBERT VEGA DO Procedure: US OB fet al BPP w non-stress BIOPHYSICAL PROFILE: CLINICAL INFORMATION : MULTIGRAVIDA OF AMA O09.523 COMPARISON: 01/04/2025 There is a single li ve intrauterine [...] cm [Y] 2/2 LILIANA: 10.9 cm. This i s in low-normal range. Total score: 8/8 US/US OB BPP w non-stress IMPRESSION: NORMAL BIOPHYSICAL PROFILE. Impression dictated by: Lise Bolanos M.D. 01/18/2025 11:16 AM Dictation Location: [place] [address] Electronically authenticated by: [id number] Y Date: 01/18/2025 11:16 Dictated By: Lise Bolanos M.D. Signed By: 01/19/25 0928 DD/ 1116 TD/TT: [employer]: US OB BPP w non-stress Reviewed date:01/04/2025 05:38:41 PM Interpretation: Performing Lab: Notes/Report: Source Facility: [place] [address] [place] [address] Ultrasound Report Signed Patient: JANNIE SANON MR#: [id number] : 1985 Acct:[id number] Age/Sex: 39 / F ADM Date: 01/04/25 Loc: [facility] 250-[address]: Norbert Vega D.O. Ordering Physician: Norbert Vega D.O. Date of Service: 01/04/25 Procedure(s): US OB BPP w non-stress Accession Number(s): [id number] cc: Norbert Vega D.O.; Quoc Bell M.D. [place] [address] Patient Name: JANNIE SANON MRN: [id number] date: 1985 Sex: F Assigned Patient Location: Current Patient Location: US Accession/Order Number: [id number] Exam Date: 01/04/2025 11:35 Report Date: 01/04/2025 11:36 At the request of: NORBERT VEGA DO Procedure: US OB BPP w non-stress BIOPHYSICAL PROFILE: CLINICAL INFORMATION: Multigravida of advanced maternal age COMPARISON: 12/28/2024 There is a single live intrauterine gestation in cephalic presentation. The reported gestational age is 33 weeks 5 days. The heart rate [id number] beats per minute. FINDINGS: TONE: 1 or [...] Bolanos M.D. 01/04/2025 11:36 AM Dictation Location: [place] [address] Electronically authenticated by: [id number] Y Date: 01/04/2025 11:36 Dictated By: Lise Bolanos M.D. Signed By: 01/04/25 1139 DD/ 1136 TD/TT: [employer]: [place] [address] Ultrasound Report Signed Patient: JANNIE SANON MR#: [id number] : 1985 Acct:[id number] Age/Sex: 39 / F ADM Date: 01/04/25 Loc: [facility] 250-[address]: Norbert Vega D.O. Ordering Physician: Norbert Vega D.O. Date of Service: 01/04/25 Procedure(s): US OB BPP w non-stress Accession Number(s): [id number] cc: Norbert Vega D.O. ; Quoc Bell M.D. [facility] [place] [address] Patient Name: JANNIE SANON MRN: [id number] date: 1985 Sex: F Assigned Patient Location: Current Patient Location: Accession/Order Number: [id number] Exam Date: 01/04/2025 11:35 Report Date: 01/04/2025 11:36 At the request of: NORBERT VEGA DO Procedure: US OB fet al BPP w non-stress BIOPHYSICAL PROFILE: CLINICAL INFORMATION : Multigravida of advanced maternal age COMPARISON: 12/28/2024 There is a single li ve intrauterine gestation in cephalic presentation. The reported gestational age is 33 weeks 5 days. The heart rate [id number] beats per minute. FINDINGS: TONE: 1 or [...] i s in low-normal range. Total score: 03/16 US/US OB BPP w non-stress IMPRESSION: NORMAL BIOPHYSICAL PROFILE. Impression dictated by: Lise Bolanos M.D. 01/04/2025 11:36 AM Dictation Location: [place] [address] Electronically authenticated by: [id number] Y Date: 01/04/2025 11:36 Dictated By: Lise Bolanos M.D. Signed By: 01/04/25 1139 DD/ 1136 TD/TT: [employer]: CBC AUTO DIFF Reviewed date:12/10/2024 12:27:48 PM Interpretation: Performing Lab: Notes/Report: [facility] , White Blood Count 16.6 4.0-11.0 10 [...] 3/uL Performing Lab: see note ML - [facility] LB URINE MICROSCOPIC ONLY Reviewed date:12/09/2024 05:07:16 PM Interpretation: Performing Lab: Notes/Report: [facility] , WBC Urine NONE SEEN NONE SEEN #/HPF RBC Urine 75-100 0-2 #/HPF Bacteria Urine SMALL NONE SEEN #/HPF Mucus Urine MODERATE NONE SEEN Squamous Epithelial Cell Urine FEW NONE/RARE #/LPF Crystals Seen? None Seen None Seen #/HPF Cast Seen? NONE SEEN NONE SEEN #/LPF Urine Culture Indicated YES- Performing Lab: see note ML - [facility] LB UA (CLEAN or CATCH) MICROSCO PIC IF INDICATE Reviewed date:12/09/2024 05:07:16 PM Interpretation: Performing Lab: Notes/Report: [facility] , Color Urine YELLOW YELLOW Clarity Urine SL CLOUDY CLEAR Specific [place] Urine >=1.030 1.005-1.025 pH Urine 6.0 5.0-9.0 Protein Urine 100 NEG/TRACE mg/dL Glucose Urine UA NEGATIVE NEGATIVE mg/dL Bilirubin Urine NEGATIVE NEGATIVE Ketones Urine 15 NEGATIVE mg/dL Blood Urine LARGE NEGATIVE Nitrite Urine NEGATIVE NEGATIVE Urobilinogen Urine 1.0 0.2-1.0 EU/dL Leukocyte Esterase Urine NEGATIVE NEGATIVE Urine Microscopic Indicated YES Performing Lab: see note ML - [facility] LB PROF CHEM 8 (BAS METB) Reviewed date:12/10/2024 12:27:48 PM Interpretation: Performing Lab: Notes/Report: [facility] , Sodium 137 136-145 mmol/L Potassium [...] mg/dL Performing Lab: see note ML - [facility] DRUG SCREEN RAPID (URINE) Reviewed date:12/10/2024 12:27:48 PM Interpretation: Performing Lab: Notes/Report: The [facility] , Cannabinoid Screen Urine NEGATIVE NEGATIVE [...] Performing Lab: see note ML - The [facility] Reason For Referral No Information Medications [...] Risk Notes Problem Adjustment disorder with anxiety (86172877) Adjustment disorder with anxiety (F43.22) Active confirmed Problem Anemia (165168371) Anemia (D64.9) Active confirmed Problem Gout (82472036) Gout (M10.9) Active confirmed Problem Insomnia (974754128) Insomnia (G47.00) Active confirmed Problem Pain in limb (26920045) Foot pain, left (M79.672) Active confirmed Problem Well adult (420588621) Well adult (Z00.00) Active confirmed Problem Cellulitis (305021649) Cellulitis (L03.90) Active confirmed Problem Contact dermatitis (53202281) Contact dermatitis (L25.9) Active confirmed Problem Overweight (921920125) Over weight (E66.3) Active confirmed Problem Posttraumatic stress disorder (00429432) Post traumatic stress disorder (F43.10) Active confirmed Problem Breakthrough bleeding (49984288) Breakthrough bleeding (N92.1) Active confirmed Problem Pruritic disorders (224710995) Chronic pruritus (L29.9) Active confirmed Problem Acute inflammation of sinus (37756795) Acute inflammation of sinus (J01.90) Active confirmed Problem 73666643 Pure hypercholesterol emia, unspecified (E78.00) Active confirmed Problem Cyst of left ovary (8838944753427357 8) Other ovarian cyst, left side (N83.292) Active confirmed Problem Backache (300365596) Inflammatory back pain (M54.89) Active confirmed Vital Signs Temperature 99.3 degrees Fahrenheit 09/11/2024 Blood pressure diastolic 72 mm Hg 09/11/2024 Height 59 in 09/11/2024 Blood pressure systolic 112 mm Hg 09/11/2024 Weight 157 lbs 09/11/2024 BMI 31.71 kg/m2 09/11/2024 Encounters Encounter Location Date Provider Diagnosis [facility] [address] [place] [address] 04/17/2024 Emeka Hoy Foot pain, left M79.672 [facility] [address] [place] [address] 09/11/2024 Emeka Hoy Acute non-recurrent sinusitis, unspecified location J01.90 and Nasal congestion R09.81 [facility] [address] [place] [address] 02/09/[address] [facility] [address] [place] [address] 03/10/2024 Emeka Bell [facility] [address] [facility] [place] [address] 04/19/2024 Emeka Bell [facility] [address] [facility] [place] [address] 05/24/[address] [facility] [address] [facility] [place] [address] 06/27/[address] [facility] [address] [facility] [place] [address] 08/18/[address] [facility] [address] [facility] [place] [address] 01/27/2024 QUOC BELL Assessments Encounter Date Diagnosis (ICD Code) Assessment Notes Treatment Notes Treatment Clinical Notes Section Notes 04/17/2024 Foot pain, left (ICD-10 - M79.672) 09/11/2024 Acute non-recurrent sinusitis, unspecified location (ICD-10 - J01.90) Rest and drink more liquids, especially water. You may use a humidifier or vaporizer to help keep the drainage moist. Bkgb-oap-hurtkbe Nasal Saline may help the stuffy and runny nose. Use Ibuprofen and or Tylenol as needed for fever, chills, body aches or pain. Children 5 years old should not be given naqp-aku-vgjhpfk cough and cold medications such as guaifenesin and dextromethorphan. If you're over age 5, you may try ivmm-xaz-kaczyou cold medications such as guaifenesin and dextromethorphan, [...] End Date [employer] [place] MEDICA[place] [address] [address] [place] [phone] [id number] Jannie Sanon Self - patient is the insured Medical (General) History Surgical History Surgery Date(Month/Year) oral surgery tonsilectomy d and c 2003 4 c sections
--- OUTSIDE RECORDS SUMMARY | 2025-01-25 09:31 | XMS_ITS | Encounter Summary ---
Author Organization [facility] Address [address] [place] [address] Care Team Providers Care Speed Operator Name Role Phone Darshan Watts MD Primary Care Provider [phone] Encounter Details Date Type Department Care Team (Late st Contact Info) Description 03/03/2024 Abstract [facility] OB [address] [place] [address] Kannan Vega, DO [address] [facility] [place] [address] Social History Tobacco Use Types Packs/Day Years [...] on filedocumented in this encounter Care Teams Speed Operator Relationship Specialty Start Date End Date Darshan Watts MD [address] [facility] [place] [address] PCP - General Family Medicine 12/28/22 documented as of this encounter
--- OUTSIDE RECORDS SUMMARY | 2025-01-25 09:31 | XMS_ITS | Encounter Summary ---
Author Organization [facility] Address [address] [place] [address] Care Team Providers Care Bottle Tester Name Role Phone Darshan Watts MD Primary Care Provider [phone] Encounter Details Date Type Department Care Team (Late st Contact Info) Description 05/26/2023 Abstract [facility] [address] [facility] [address] [place] [address] Milagros Rose, [facility] [address] [place] [address] Social History Tobacco Use Types Packs/Day Years [...] on filedocumented in this encounter Care Teams Bottle Tester Relationship Specialty Start Date End Date Darshan Watts MD [address] [facility] [place] [address] PCP - General Family Medicine 12/28/22 documented as of this encounter
--- OUTSIDE RECORDS SUMMARY | 2025-01-25 09:31 | XMS_ITS | Encounter Summary ---
Author Organization [facility] Address [address] [place] [address] Care Team Providers Care Edge Burnisher Name Role Phone Darshan Watts MD Primary Care Provider [phone] Encounter Details Date Type Department Care Team (Late st Contact Info) Description 11/01/2023 Clinisync Result Encounter [facility] External Department Unsolicited Norbert Vega, DO [address] [place] [address] Dr [place], [place] [address] Social History Tobacco Use Types Packs/Day Years [...] EDT Narrative 11/01/2023 12:55 PM EDT The [address] [address] Ultrasound Report Signed Patient: LB SANON MR#: [id number] : 1985 Acct:[id number] Age/Sex: 38 / F ADM Date: 11/01/23 Loc: US Attending Dr: Norbert Vega D.O. Ordering Physician: Norbert Vega D.O. Date of Service: 11/01/23 Procedure(s): US pelvis transvaginal Accession Number(s): [id number] cc: Norbert Vega D.O.; Darshan Watts M.D. The [place] [address] Patient Name: LB SANON MRN: [id number] date: 1985 Sex: F Assigned Patient Location: US Current Patient Location: Accession/Order Number: [id number] Exam Date: 11/01/2023 11:48 Report Date: 11/01/2023 [...] Signed By: 11/01/23 1255 DD/ 1252 TD/TT: Wood Grinder: Procedure Note Radiology, Radiologist, MD - 11/01/2023 [place] [address] Ultrasound Report Signed Patient: LB SANON RMR#: [id number] : 1985Acct:[id number] Age/Sex: 38 / FADM Date: 11/01/23 Loc: US Attending Dr: Norbert Vega D.O. Ordering Physician: Norbert Vega D.O. Date of Service: 11/01/23 Procedure(s): US pelvis transvaginal Accession Number(s): [id number] cc: Norbert Vega D.O.; Darshan Watts M.D. [place] [address] Patient Name: LB SANON MRN: [id number] date: 1985 Sex: F Assigned Patient Location: US Current Patient Location: US Accession/Order Number: [id number] Exam Date: 11/01/2023 11:48 Report Date: 11/01/2023 [...] Dictated By: Perez Durbin M.D. Signed By:11/01/23 1251 DD/ 1252 TD/TT: Wood Grinder: us Norbert Vega DO [facility] Final Result documented in this encounter Visit Diagnoses Not on filedocumented in this encounter Care Teams Edge Burnisher Relationship Specialty Start Date End Date Darshan Watts MD [address] [place] [address] PCP - General Family Medicine 12/28/22 documented as of this encounter
--- OUTSIDE RECORDS SUMMARY | 2025-01-25 09:31 | XMS_ITS | Encounter Summary ---
Author Organization [facility] Address [address] [place] [address] Care Team Providers Care Dealer Account Manager Name Role Phone Darshan Watts MD Primary Care Provider [phone] Encounter Details Date Type Department Care Team (Late st Contact Info) Description 10/10/2024 Abstract [facility] [address] [place] [phone] Kannan Vega, DO [address] [place] [address] Social History Tobacco Use Types Packs/Day Years [...] on filedocumented in this encounter Care Teams Dealer Account Manager Relationship Specialty Start Date End Date Darshan Watts MD [address] [facility] [address] PCP - General Family Medicine 12/28/22 documented as of this encounter
--- OUTSIDE RECORDS SUMMARY | 2025-01-25 09:31 | XMS_ITS | Encounter Summary ---
Author Organization [facility] Address [address] [place] [address] Care Team Providers Care Store Team Leader Name Role Phone Darshan Watts MD Primary Care Provider [phone] Encounter Details Date Type Department Care Team (Late st Contact Info) Description 08/07/2024 Abstract [facility] OB [address] [place] [phone] Kannan Vega, DO [address] [place] [address] Social History Tobacco Use Types Packs/Day Years [...] on filedocumented in this encounter Care Teams Store Team Leader Relationship Specialty Start Date End Date Darshan Watts MD [address] [facility] [place] [address] PCP - General Family Medicine 12/28/22 documented as of this encounter
--- OUTSIDE RECORDS SUMMARY | 2025-01-25 09:31 | XMS_ITS | Encounter Summary ---
Author Organization [facility] Address [address] [place] [address] Care Team Providers Care Steel Grinder Name Role Phone Darshan Watts MD Primary Care Provider [phone] Encounter Details Date Type Department Care Team (Late st Contact Info) Description 12/25/2022 Abstract [facility] [address] [place] [address] Kannan Vega, DO [address] [facility] [place] [address] Social History Tobacco Use Types Packs/Day Years [...] on filedocumented in this encounter Care Teams Steel Grinder Relationship Specialty Start Date End Date Darshan Watts MD [address] [place] [facility] [place] [address] PCP - General Family Medicine 12/28/22 documented as of this encounter
--- OUTSIDE RECORDS SUMMARY | 2025-01-25 09:31 | XMS_ITS | Encounter Summary ---
Author Organization [facility] Address [address] [place] [address] Care Team Providers Care Cyber Workforce Developer And Manager Name Role Phone Darshan Watts MD Primary Care Provider [phone] Encounter Details Date Type Department Care Team (Late st Contact Info) Description 10/10/2024 Abstract [facility] OB [address] [phone] Kannan Vega, DO [address] [place] [address] Social History Tobacco Use Types Packs/Day Years [...] on filedocumented in this encounter Care Teams Cyber Workforce Developer And Manager Relationship Specialty Start Date End Date Darshan Watts MD [address] [facility] [place] [address] PCP - General Family Medicine 12/28/22 documented as of this encounter
--- OUTSIDE RECORDS SUMMARY | 2025-01-25 09:31 | XMS_ITS | Encounter Summary ---
Author Organization [facility] Address [address] [place] [address] Care Team Providers Care Coordinator Of Library Services Name Role Phone Darshan Watts MD Primary Care Provider [phone] Encounter Details Date Type Department Care Team (Late st Contact Info) Description 11/11/2023 Abstract [facility] [email or web address] [place] [address] Gemma Dumont LPN [address] [place] [address] Social History Tobacco Use Types Packs/Day Years [...] on filedocumented in this encounter Care Teams Coordinator Of Library Services Relationship Specialty Start Date End Date Darshan Watts MD [address] [facility] [place] [address] PCP - General Family Medicine 12/28/22 documented as of this encounter
--- OUTSIDE RECORDS SUMMARY | 2025-01-25 09:31 | XMS_ITS | Encounter Summary ---
Author Organization [facility] Address [address] [place] [address] Care Team Providers Care Tank Carpenter Name Role Phone Darshan Watts MD Primary Care Provider [phone] Encounter Details Date Type Department Care Team (Late st Contact Info) Description 09/20/2023 Clinisync Result Encounter [facility] External Department Unsolicited Norbert Vega, DO [address] [place] [address] Dr [address] [place], [place] [phone] Social History Tobacco Use Types Packs/Day Years [...] EST Narrative 09/20/2023 1:54 PM EST The [address] [address] Ultrasound Report Signed Patient: LB SANON MR#: [id number] : 1985 Acct:[id number] Age/Sex: 37 / F ADM Date: 09/20/23 Loc: US Attending Dr: Norbert Vega D.O. Ordering Physician: Norbert Vega D.O. Date of Service: 09/20/23 Procedure(s): US pelvis w/ transvaginal Accession Number(s): [id number] cc: Norbert Vega D.O.; Darshan Watts M.D. [place] [address] Patient Name: LB SANON MRN: [id number] date: 1985 Sex: F Assigned Patient Location: US Current Patient Location: Accession/Order Number: [id number] Exam Date: 09/20/2023 11:42 Report Date: 09/20/2023 [...] Signed By: 09/20/23 1354 DD/ 1351 TD/TT: [employer] Solutions Workflow Consultant: Procedure Note Radiology, Radiologist, MD - 09/20/2023 The [place] [id number] Ultrasound Report Signed Patient: LB SANON RMR#: [id number] : 1985Acct:[id number] Age/Sex: 37 / FADM Date: 09/20/23 Loc: US Attending Dr: Norbert Vega D.O. Ordering Physician: Norbert Vega D.O. Date of Service: 09/20/23 Procedure(s): US pelvis w/ transvaginal Accession Number(s): [id number] cc: Norbert Vega D.O.; Darshan Watts M.D. The [place] [id number] Patient Name: LB SANON MRN: [id number] date: 1985 Sex: F Assigned Patient Location: US Current Patient Location: US Accession/Order Number: [id number] Exam Date: 09/20/2023 11:42 Report Date: 09/20/2023 [...] Dictated By: Perez Durbin M.D. Signed By:09/20/23 1355 DD/ 1351 TD/TT: [employer] Workflow Consultant: us Norbert Vega DO [facility] Final Result documented in this encounter Visit Diagnoses Not on filedocumented in this encounter Care Teams Tank Carpenter Relationship Specialty Start Date End Date Darshan Watts MD [address] [place] [address] PCP - General Family Medicine 12/28/22 documented as of this encounter
--- OUTSIDE RECORDS SUMMARY | 2025-01-25 09:31 | XMS_ITS | Clinical Summary ---
Author Organization [employer] s tem Address [id number] [address] [place] [address] Care Team Providers Care Hydroelectric Production Manager Name Role Phone Darshan Watts MD Primary Care Provider [phone] Allergies Active Allergy Reactions Criticality Noted Date [...] by mouth in the morning. Active omega 8-rie-duy-fish oil (Fish OiL) 300-1,000 mg capsule Take [...] PM EDT Hospital Encounter [facility] - Ultrasound [address] [place] [address] Multigravida of advanced maternal age [...] 11:40 AM EDT) Anatomical Region Laterality Modality OB-RFP WRITER Ultrasound 11/07/2024 10:0 2 AM EDT Narrative 11/07/2024 4:36 PM EDT NAME: PACO ASHER : 1985 SEX: F Accession Number: [id number] ORDERING PHYSICIAN: DM KANG REFERRING PHYSICIAN: NORBERT WILLIS Coding ----- --------- Procedures [id number]: Follow-up Ultrasound, per fetus Indication ----- --------- Screening for follow-up survey, AMA- Supervision of elderly, Depression, Anxiety, Previous x4, Obesity in History ----- --------- OB History 9. Para 4 [id number] Current ----- --------- Cell free DNA Low [...] 1 lb 10 oz EFW by Hadlock (GOC-ZO-OY-FL) Head / Face / Neck Biometry: Cephalic index 0.72 3% Nicolaides Stoper 1.5 mm CM 5.3 mm 23% Nicolaides Extremities / Bony Struc Biometry: FL / BPD 0.76 FL / HC 0.20 FL / AC 0.22 Tibia 39.0 mm 24w 6d 27% Juan Manuel Anatomy ----- --------- The following structures appear normal: Head/Neck: Cranium. Lateral ventricles. Cavum septi pellucidi. Cerebellum. Cisterna magna. Parenchyma. Face: Mandible. Orbits. Heart/Thorax: 4-chamber view. RVOT view. 9-nzfboz-rfnabjp view. Aortic arch view. Bicaval view. Ductal [...] 4.4 cm. Recommendations ----- --------- Please see [facility] recommendations from prior clinical and/or ultrasound report documentation. Subsequent follow up or other follow up as clinically determined by primary OB provider unless otherwise specified by [facility]. Results forwarded to ordering provider so they can follow up with the patient as necessary. Procedure Note Damián Short MD - 11/07/2024 NAME: PACO ASHER : 1985 SEX: F Accession Number: [id number] ORDERING PHYSICIAN: DM KANG REFERRING PHYSICIAN: NORBERT WILLIS Coding ----- --------- Procedures [id number]: Follow-up Ultrasound, per fetus Indication ----- --------- Screening for follow-up survey, AMA- Supervision of elderly, Depression,Anxiety, Previous x4, Obesity in History ----- --------- OB History 9. Para 4 [id number] Current ----- --------- Cell free DNA Low [...] 1 lb 10 oz EFW by Hadlock (QBQ-MS-KD-FL) Head / Face / Neck Biometry: Cephalic index 0.72 3% Nicolaides Stoper 1.5 mm CM 5.3 mm 23% Spencerides Extremities / Bony Struc Biometry: FL / BPD 0.76 FL / HC 0.20 FL / AC 0.22 Tibia 39.0 mm 24w 6d 27% Juan Manuel Anatomy ----- --------- The following structures appear normal: Head/Neck: Cranium. Lateral ventricles. Cavum septi pellucidi. Cerebellum.Cisterna magna. Parenchyma. Face: Mandible. Orbits. Heart/Thorax: 4-chamber view. RVOT view. 7-allxvf-bdcpslu view. Aorticarch view. Bicaval view. Ductal arch [...] 4.4 cm. Recommendations ----- --------- Please see [facility] recommendations from prior clinical and/or ultrasoundreport documentation. Subsequent follow up or other follow up as clinically determined byprimary OB provider unless otherwise specified by [facility]. Results forwarded to ordering provider so they can follow up with thepatient as necessary. us Dm Kang MD [facility] ORDERABLES Final Resul t from Last 3 Months Insurance [facility] MEDICAID Care Teams Hydroelectric Production Manager Relationship Specialty Start Date End Date Darshan Watts MD PCP - General 04/04/18
--- OUTSIDE RECORDS SUMMARY | 2025-01-25 09:31 | XMS_ITS | Encounter Summary ---
Author Organization [facility] Address [address] [place] [address] Care Team Providers Care Carriage Dogger Name Role Phone Darshan Watts MD Primary Care Provider [phone] Encounter Details Date Type Department Care Team (Late st Contact Info) Description 08/23/2024 Abstract [facility] OB [address] [place] [phone] Kannan Vega, DO [address] [place] [address] Social History Tobacco Use Types Packs/Day Years [...] on filedocumented in this encounter Care Teams Carriage Dogger Relationship Specialty Start Date End Date Darshan Watts MD [address] [facility] [place] [address] PCP - General Family Medicine 12/28/22 documented as of this encounter
--- OUTSIDE RECORDS SUMMARY | 2025-01-25 09:31 | XMS_ITS | Encounter Summary ---
Author Organization [facility] Address [address] [place] [address] Care Team Providers Care Burr Filer Name Role Phone Darshan Watts MD Primary Care Provider [phone] Encounter Details Date Type Department Care Team (Late st Contact Info) Description 07/28/[address] [facility] OB [address] [place] [phone] Kannan Vega, DO [address] [place], [place] [address] Social History Tobacco Use Types Packs/Day Years [...] on filedocumented in this encounter Care Teams Burr Filer Relationship Specialty Start Date End Date Darshan Watts MD [address] [facility] [address] PCP - General Family Medicine 12/28/22 documented as of this encounter
--- OUTSIDE RECORDS SUMMARY | 2025-01-25 09:31 | XMS_ITS | Encounter Summary ---
Author Organization [facility] Address [address] [place] [address] Care Team Providers Care Cq Developer Name Role Phone Darshan Watts MD Primary Care Provider [phone] Encounter Details Date Type Department Care Team (Late st Contact Info) Description 01/22/2025 Bamboo flowsheet [facility] [address] [place] [address] Kannan Vega, DO [address] [facility] [address] [place], [place] [phone] Social History Tobacco Use Types Packs/Day Years [...] on filedocumented in this encounter Care Teams Cq Developer Relationship Specialty Start Date End Date Darshan Watts MD [address] [place] [address] PCP - General Family Medicine 12/28/22 documented as of this encounter
--- OUTSIDE RECORDS SUMMARY | 2025-01-25 09:31 | XMS_ITS | Clinical Summary ---
Author Organization [facility] Address [address] [place] [address] Care Team Providers Care Adult Basic Education Manager Name Role Phone Darshan Watts MD Primary Care Provider [phone] Allergies Active Allergy Reactions Criticality Noted Date [...] iron polysaccharides (ProFe) 391.3 (180 Fe) MG capsuleIndications :Anemia during in second trimester (HHS-HCC) Take 1 capsule (391.3 mg) by mouth Daily 30 capsule 11 01/11/20 25 025 Active ondansetron ODT (Zofran-ODT) 4 MG disintegrating tabletIndications: Vomiting affecting (HHS-HCC) Take 1 tablet (4 mg) by mouth every 6 (six) hours if needed for nausea or vomiting 30 tablet 2 01/23/20 25 025 Active citalopram (CeleXA) 20 MG tablet Take 20 mg by mouth in the morning. 025 Discontinued venlafaxine XR (Effexor XR) 37.5 MG 24 hr capsuleIndications :Anxiety, generalized Take 1 capsule (37.5 mg) by mouth Daily Do not crush or chew. 30 capsule 2 11/02/19 25 025 Discontinued Active Problems Problem Noted Date Diagnosed Date Anxiety, generalized 01/15/2023 Estimated Date of Delivery Comme nts Yes 02/17/2025 Based on last me nstrual period of 05/13/2024, unknown period. Encounters Date Type Department Care Team Description 01/22/2025 10:30 AM EDT Routine [facility] [address] [place] [address] Norbert Vega DO Vomiting affecting ([facility]) (Primary Dx); 36 weeks gestation of ([facility]); Third trimester ([facility]) 01/22/2025 Bamboo flowsheet [facility] [address] [place] [address] Norbert Vega, 01/18/2025 Clinisync Result Encounter [facility] External Department Unsolicited Norbert Vega DO 01/16/2025 Travel 01/15/2025 10:00 AM EDT Routine [facility] [place] [address] [place] [address] Norbert Vega DO 35 weeks gestation of ([facility]); Third trimester ([facility]) 01/15/2025 Bamboo flowsheet [facility] [place] [address] [place] [address] Norbert Vega, 01/10/2025 Telephone [facility] [place] [address] [place] [address] Norbert Vega, 01/09/2025 Travel 01/08/2025 10:10 AM EDT Routine [facility] OB [address] [place] [address] [place] [phone] Norbert Vega, DO Third trimester ([facility]); 34 weeks gestation of ([facility]) 01/08/2025 Bamboo flowsheet [facility] OB [address] [facility] [place] [address] Norbert Vega, DO 01/04/2025 Clinisync Result Encounter [facility] External Department Unsolicited Norbert Vega, DO 01/01/2025 Travel 12/28/2024 Clinisync Result Encounter [facility] External Department Unsolicited Norbert Vega, DO 12/26/2024 9:00 AM EDT Routine [facility] OB [address] [facility] [place] [address] Norbert Vega, DO 32 weeks gestation of ([facility]); Third trimester ([facility]) 12/26/2024 Bamboo flowsheet [facility] OB [address] [facility] [place] [phone] Norbert Vega, DO 12/21/2024 Travel 12/21/2024 Clinisync Result Encounter [facility] External Department Unsolicited Norbert Vega, DO 12/21/2024 Clinisync Result Encounter [facility] External Department Unsolicited Norbert Vega, DO 12/11/2024 8:30 AM EDT Routine [facility] OB [address] [place] [address] [place] [address] Norbert Vega, DO Third trimester ([facility]); 30 weeks gestation of ([facility]) 12/11/2024 8:00 AM EDT Ancillary Procedure [facility] OB [address] [place] [address] [place] [address] Multigravida of advanced maternal age in third trimester ([facility]) 12/11/2024 Abstract [facility] OB [address] [place] [address] [place] [address] Norbert Vega, DO 12/09/2024 Clinisync Result Encounter [facility] External Department Unsolicited Norbert Vega, DO 11/30/2024 Clinisync Result Encounter [facility] External Department Unsolicited Norbert Vega, DO 11/27/2024 1:10 PM EDT Routine [facility] OB [address] [facility] [place] [address] Norbert Vega, DO Third trimester ([facility]); 28 weeks gestation of ([facility]); Multigravida of advanced maternal age in third trimester ([facility]); Anemia during in second trimester ([facility]) 11/27/2024 Bamboo flowsheet [facility] OB [address] [facility] [place] [address] Norbert Vega, DO 11/08/2024 Abstract [facility] [address] [facility] [place] [address] Norbert Vega, DO 11/01/2024 Telephone [facility] OB [address] [facility] [place] [address] Norbert Vega, DO 10/30/2024 2:50 PM EDT Routine [facility] [address] [facility] [place] [address] Norbert Vega, DO Anemia during in second trimester ([facility]); Second trimester ([facility]); 24 weeks gestation of ([facility]) 10/30/2024 Bamboo flowsheet [facility] OB [address] [facility] [place] [address] Norbert Vega, DO 2024 Travel from Last 3 Months Family History * [...] 11:06 AM EDT 36 weeks gestation of ([facility]) US OB BPP W NON-STRESS 01/18/2025 11:16 AM EDT POCT URINALYSIS DIPSTICK Routine 01/15/2025 10:31 AM EDT 35 weeks gestation of ([facility]) Third trimester ([facility]) POCT URINALYSIS DIPSTICK Routine 01/08/2025 10:45 AM EDT Third trimester ([facility]) 34 weeks gestation of ([facility]) US OB BPP W NON-STRESS 01/04/2025 11:36 AM EDT US OB BPP W NON-STRESS 12/28/2024 10:16 AM EDT POCT URINALYSIS DIPSTICK Routine 12/26/2024 9:40 AM EDT 32 weeks gestation of ([facility]) Third trimester ([facility]) US OB GROWTH 12/21/2024 11:41 AM EDT US OB BPP W NON-STRESS 12/21/2024 11:39 AM EDT POCT URINALYSIS DIPSTICK Routine 12/11/2024 8:55 AM EDT Third trimester ([facility]) US OB FOLLOW UP TRANSABDOMINAL APPROACH Routine 12/11/2024 8:18 AM EDT Multigravida of advanced maternal age in third trimester ([facility]) [facility] URINE MICROSCOPIC ONLY Routine 12/09/2024 2:00 PM EDT [facility]H UA (CLEAN/CATCH) MICROSCOPIC IF INDICATE Routine 12/09/2024 2:00 PM EDT TBH UA (CLEAN/CATCH) AUTOMOTIVE DESIGNER/MICRO IF IND. Routine 11/30/2024 4:48 PM EDT POCT URINALYSIS DIPSTICK Routine 11/27/2024 1:28 PM EDT Third trimester ([facility]) POCT URINALYSIS DIPSTICK Routine 10/30/2024 3:13 PM EDT Second trimester ([facility]) PAP SMEAR Routine 12/21/2022 12:00 AM EDT from Last 3 Months or Most Recently Relevant to Health Maintenance Results * (ABNORMAL) POCT urinalysis dipstick manually resulted (01/22/2025 11:06 AM EDT) Only the most recent of7 resultswithin the time period is included. Color, UA Yellow Clarity, UA Clear Glucose, UA Negative Negative - 1999(110) ++++ mg/dL Bilirubin, UA Negative Negative - 4(70) +++ mg/dL Ketones, UA Negative Negative - 160(16) ++++ mg/dL Spec Grav, UA 1.015 1 - 1.03 Blood, UA Negative Negative - 50 Doroteo/mcL pH, UA 6.5 5 - 9 Protein, UA Negative Negative - 1999(20) ++++ mg/dL Urobilinogen, UA 0.2 0.2 - [...] AM EDT Narrative 01/19/2025 9:28 AM EDT [address] [address] Ultrasound Report Signed Patient: JANNIE SANON MR#: [id number] : 1985 Acct:[id number] Age/Sex: 39 / F ADM Date: 01/18/25 Loc: US Attending Dr: oNrbert Vega D.O. Ordering Physician: Norbert eVga D.O. Date of Service: 01/18/25 Procedure(s): US OB BPP w non-stress Accession Number(s): [id number] cc: Norbert Vega D.O.; Darshan Watts M.D. [address] [address] Patient Name: JANNIE SANON MRN: [id number] date: 1985 Sex: F Assigned Patient Location: Current Patient Location: Accession/Order Number: [id number] Exam Date: 01/18/2025 11:15 Report Date: 01/18/2025 [...] Bolanos M.D. 01/18/2025 11:16 AM Dictation Location: [place] [address] Electronically authenticated by: [id number] Y Date: 01/18/2025 11:16 Dictated By: Lise Bolanos M.D. Signed By: 01/19/25 0928 DD/ 1116 TD/TT: Tank Truck Loader: Procedure Note Radiology, Radiologist, MD - 01/19/2025 [place] [address] Ultrasound Report Signed Patient: JANNIE SANON RMR#: [id number] : 1985Acct:[id number] Age/Sex: 39 / FADM Date: 01/18/25 Loc: US Attending Dr: Norbert Vega D.O. Ordering Physician: Norbert Vega D.O. Date of Service: 01/18/25 Procedure(s): US OB BPP w non-stress Accession Number(s): [id number] cc: Norbert Vega D.O.; Darshan Watts M.D. [place] [id number] Patient Name: JANNIE SANON MRN: [id number] date: 1985 Sex: F Assigned Patient Location: Current Patient Location: Accession/Order Number: [id number] Exam Date: 01/18/2025 11:15 Report Date: 01/18/2025 [...] Bolanos M.D. 01/18/2025 11:16 AM Dictation Location: [place] [address] Electronically authenticated by: [id number] Y Date: 1:16 Dictated By: Lise Bolanos M.D. Signed By:01/19/25 0928 DD/ 1116 TD/TT: Tank Truck Loader: us Norbert Vega DO [facility] Final Result * US OB GROWTH (12/21/2024 11:41 AM EDT) Anatomical Region Laterality Modality Other 12/21/2024 11:4 1 AM EDT Narrative 12/21/2024 11:43 AM EDT [address] [address] Ultrasound Report Signed Patient: JANNIE SANON MR#: [id number] : 1985 Acct:[id number] Age/Sex: 39 / F ADM Date: 12/21/24 Loc: US Attending Dr: Norbert Vega D.O. Ordering Physician: Norbert Vega D.O. Date of Service: 12/21/24 Procedure(s): US OB growth Accession Number(s): [id number] cc: Norbert Vega D.O.; Darshan Watts M.D. [place] [id number] Patient Name: JANNIE SANON MRN: [id number] date: 1985 Sex: F Assigned Patient Location: [facility] Current Patient Location: Accession/Order Number: [id number] Exam Date: 12/21/2024 11:39 Report Date: 12/21/2024 [...] Metzger M.D. 12/21/2024 11:41 AM Dictation Location: [place] [address] Electronically authenticated by: [id number] Y Date: 12/21/2024 11:41 Dictated By: Jonah Metzger M.D. Signed By: 12/21/24 1143 DD/ 1141 TD/TT: Tank Truck Loader: Procedure Note Radiology, Radiologist, - 12/21/2024 [place] [address] Ultrasound Report Signed Patient: JANNIE SANON RMR#: [id number] : 1985Acct:[id number] Age/Sex: 39 / FADM Date: 12/21/24 Loc: US Attending Dr: Norbert Vega D.O. Ordering Physician: Norbert Vega D.O. Date of Service: 12/21/24 Procedure(s): US OB growth Accession Number(s): [id number] cc: Norbert Vega D.O.; Darshan Watts M.D. The [place] [id number] Patient Name: JANNIE SANON MRN: [id number] date: 1985 Sex: F Assigned Patient Location: [facility] Current Patient Location: Accession/Order Number: [id number] Exam Date: 12/21/2024 11:39 Report Date: 12/21/2024 [...] Metzger M.D. 12/21/2024 11:41 AM Dictation Location: [place] [address] Electronically authenticated by: [id number] Y Date: 1:41 Dictated By: Jonah Metzger M.D. Signed By:12/21/24 1143 DD/ 1141 TD/TT: Tank Truck Loader: us Norbert Silvia DO [facility] Final [...] II, MD, PHD at 13-Dec-2024 08:39:30 AM [facility] Procedure Note Tl Sharp MD - [...] signed by TL SHARP II, MD, PHD [id number] 08:39:30 AM [facility] us Norbert Vega DO [facility] US PROCEDURES Final Resul t * [...] DO CLINISYNC Final Result Performing Organization Address [facility] Co de Phone Number [facility] * [...] DO [facility] Final Result Performing Organization Address [facility] Co de Phone Number [facility] * TBH UA (CLEAN/CATCH) AUTOMOTIVE DESIGNER/MICRO IF IND. (11/30/2024 4:48 PM EDT) COLOR [...] DO CLINIS[facility] Final Result [facility] * Pap Smear (12/21/2022 12:00 AM EDT) Swab Cervical swab / Unknown us Norbert Silvia DO LAB CYTOLOGY ORDERABLES Final Re sult EXTERNAL LAB from Last 3 Months or Most Recently Relevant to Health Maintenance Insurance [employer] [place] Member Subscriber Plan / Payer (Ef fective 2022-Present) Name:Jannie Sanon Relation to Subscriber:Self Name:Jannie Sanon Payer ID:Not on file Group ID:[id number] Type:Not on file Address: [facility] [id number] [place] [id number] Care Teams Adult Basic Education Manager Relationship Specialty Start Date End Date Darshan Watts MD [address] [place] [address] PCP - General Family Medicine 12/28/22
--- OUTSIDE RECORDS SUMMARY | 2025-01-25 09:31 | XMS_ITS | Encounter Summary ---
Author Organization [facility] Address [address] [place] [address] Care Team Providers Care Hydrotel Operator Name Role Phone Darshan Watts MD Primary Care Provider [phone] Encounter Details Date Type Department Care Team (Late st Contact Info) Description 07/27/2024 Clinisync Result Encounter [facility] External Department Unsolicited Norbert Vega, DO [address] [place] [address] Dr [place], [place] [phone] Social History Tobacco Use Types Packs/Day Years [...] EST Narrative 07/27/2024 11:09 AM EST The [address] [address] Ultrasound Report Signed Patient: LB SANON MR#: [id number] : 1985 Acct:[id number] Age/Sex: 38 / F ADM Date: 07/27/24 Loc: US Attending Dr: Norbert Vega D.O. Ordering Physician: Norbert Vega D.O. Date of Service: 07/27/24 Procedure(s): US OB <= 14 weeks fetus Accession Number(s): [id number] cc: Norbert Vega D.O. The [place] [address] Patient Name: LB SANON MRN: [id number] date: 1985 Sex: F Assigned Patient Location: US Current Patient Location: Accession/Order Number: [id number] Exam Date: 07/27/2024 09:40 Report Date: 07/27/2024 [...] Signed By: 07/27/24 1109 DD/ 06 TD/TT: Record Tabulating Clerk: Procedure Note Radiology, Radiologist, MD - 07/27/2024 [place] [address] Ultrasound Report Signed Patient: LB SANON RMR#: [id number] : 1985Acct:[id number] Age/Sex: 38 / FADM Date: 07/27/24 Loc: US Attending Dr: Norbert Vega D.O. Ordering Physician: Norbert Vega D.O. Date of Service: 07/27/24 Procedure(s): US OB <= 14 weeks fetus Accession Number(s): [id number] cc: Norbert Vega D.O. The [address] [address] Patient Name: LB SANON MRN: [facility]:[id number] date: 1985 Sex: F Assigned Patient Location: Current Patient Location: US Accession/Order Number: [id number] Exam Date: 07/27/2024 09:40 Report Date: 07/27/2024 [...] M.D. Signed By:07/27/24 1109 DD/ 1107 TD/TT: Record Tabulating Clerk: us Norbert Vega DO [facility] Final Result documented in this encounter Visit Diagnoses Not on filedocumented in this encounter Care Teams Hydrotel Operator Relationship Specialty Start Date End Date Darshan Watts MD [address] [place] [address] PCP - General Family Medicine 12/28/22 documented as of this encounter
--- OUTSIDE RECORDS SUMMARY | 2025-01-25 09:31 | XMS_ITS | Encounter Summary ---
Author Organization [facility] Address [address] [place] [address] Care Team Providers Care Section Weaver Name Role Phone Darshan Watts MD Primary Care Provider [phone] Encounter Details Date Type Department Care Team (Late st Contact Info) Description 11/08/2024 Abstract [facility] OB [address] [place] [phone] Kannan Vega, DO [address] [address] Social History Tobacco Use Types Packs/Day Years [...] on filedocumented in this encounter Care Teams Section Weaver Relationship Specialty Start Date End Date Darshan Watts MD [address] [facility] [address] PCP - General Family Medicine 12/28/22 documented as of this encounter
--- OUTSIDE RECORDS SUMMARY | 2025-01-25 09:31 | XMS_ITS | Encounter Summary ---
Author Organization [facility] tem Address [id number] [address] [place] [address] Care Team Providers Care Shop Tech Name Role Phone Darshan Watts MD Primary Care Provider [phone] Encounter Details Date Type Department Care Team (Late st Contact Info) Description 09/08/2024 Orders Only Maternal- Medicine at [facility] [address] [place] [address] Kannan Vega, DO [address] [facility] [place] [address] Social History Tobacco Use Types Packs/Day Years [...] on filedocumented in this encounter Care Teams Shop Tech Relationship Specialty Start Date End Date Darshan Watts MD PCP - General 04/04/18 documented as of this encounter
--- OUTSIDE RECORDS SUMMARY | 2025-01-25 09:31 | XMS_ITS | Encounter Summary ---
Author Organization [facility] Address [address] [place] [address] Care Team Providers Care Cloth Cutting Inspector Name Role Phone Darshan Watts MD Primary Care Provider [phone] Encounter Details Date Type Department Care Team (Late st Contact Info) Description 12/11/[address] [facility] OB [address] [facility] [place] [phone] Kannan Vega, DO [address] [facility] [place] [address] Social History Tobacco Use Types Packs/Day Years [...] on filedocumented in this encounter Care Teams Cloth Cutting Inspector Relationship Specialty Start Date End Date Darshan Watts MD [address] [facility] [place] [address] PCP - General Family Medicine 12/28/22 documented as of this encounter
--- NOTE | 2025-01-25 09:35 | US_ITS ---
The [address] [address] Patient Name: LB ANTONIO MRN: [id number] date: 1985 Sex: F Assigned Patient Location: Current Patient Location: [facility] Accession/Order Number: [id number] Exam Date: 01/25/2025 11:37 Report Date: 01/25/2025 11:48 At the request of: NORBERT WILLIS DO Procedure: US OB growth CLINICAL INFORMATION: Multigravida of advanced maternal age ULTRASOUND OB GROWTH COMPARISON: 12/21/2024 There is a single live intrauterine gestation in cephalic presentation. There is cardiac and somatic activity with heart rate of 139 bpm. The amniotic fluid index measures 10.5 cm. This is in low-normal range. The following measurements were obtained: Biparietal diameter 8.2 cm 33 weeks 0 days <3% Head circumference 10.5 cm 34 weeks 0 days <3% Abdominal circumference 31.5 cm 35 weeks 3 days 27% Femur length 6.5 cm 33 weeks 5 days <3%. The composite ultrasound age based on these measurements is 34 weeks 0 days +/- 2 weeks 3 days. The estimated date of delivery is 03/08/2025. The estimated date of delivery at the time of the prior was 02/27/2025. The date of delivery based on last menstrual period is 02/17/2025. The estimated weight is 5 lbs. 7 oz. +/- 13 ounces (9%) US/US OB growth IMPRESSION: SINGLE LIVE INTRAUTERINE GESTATION WITH ULTRASOUND AGE OF 34 WEEKS 0 DAYS. THIS IS TOWARDS THE LOWER LIMITS OF STANDARD DEVIATION FOR EXPECTED GROWTH SINCE THE PRIOR BIOPHYSICAL PROFILE: FINDINGS: TONE: 1 or more episodes of activity extension and flexion of extremity or opening and closing of the hand [Y] 2/2 GROSS BODY MOVEMENTS: 3 or more discrete body or limb movements [Y] 2/2 BREATHING MOVEMENTS: 1 or more episodes of breathing lasting at least 30 seconds [Y] 2/2 LILIANA: A single deepest vertical pocket of amniotic fluid greater than 2 cm [Y] 2/2 LILIANA: 10.9 cm. This is in low-normal range. Total score: 8/8 IMPRESSION: NORMAL BIOPHYSICAL PROFILE Impression dictated by: Lise Bolanos M.D. 01/25/2025 11:48 AM Dictation Location: [place] [address] Electronically authenticated by: [id number] Y Date: 01/25/2025 11:48
--- NOTE | 2025-01-25 09:35 | US_ITS ---
The [address] [address] Patient Name: LB ANTONIO MRN: [id number] date: 1985 Sex: F Assigned Patient Location: Current Patient Location: [facility] Accession/Order Number: [id number] Exam Date: 01/25/2025 11:37 Report Date: 01/25/2025 11:48 At the request of: NORBERT WILLIS DO Procedure: US OB growth CLINICAL INFORMATION: Multigravida of advanced maternal age ULTRASOUND OB GROWTH COMPARISON: 12/21/2024 There is a single live intrauterine gestation in cephalic presentation. There is cardiac and somatic activity with heart rate of 139 bpm. The amniotic fluid index measures 10.5 cm. This is in low-normal range. The following measurements were obtained: Biparietal diameter 8.2 cm 33 weeks 0 days <3% Head circumference 10.5 cm 34 weeks 0 days <3% Abdominal circumference 31.5 cm 35 weeks 3 days 27% Femur length 6.5 cm 33 weeks 5 days <3%. The composite ultrasound age based on these measurements is 34 weeks 0 days +/- 2 weeks 3 days. The estimated date of delivery is 03/08/2025. The estimated date of delivery at the time of the prior was 02/27/2025. The date of delivery based on last menstrual period is 02/17/2025. The estimated weight is 5 lbs. 7 oz. +/- 13 ounces (9%) US/US OB BPP w non-stress IMPRESSION: SINGLE LIVE INTRAUTERINE GESTATION WITH ULTRASOUND AGE OF 34 WEEKS 0 DAYS. THIS IS TOWARDS THE LOWER LIMITS OF STANDARD DEVIATION FOR EXPECTED GROWTH SINCE THE PRIOR BIOPHYSICAL PROFILE: FINDINGS: TONE: 1 or more episodes of activity extension and flexion of extremity or opening and closing of the hand [Y] 2/2 GROSS BODY MOVEMENTS: 3 or more discrete body or limb movements [Y] 2/2 BREATHING MOVEMENTS: 1 or more episodes of breathing lasting at least 30 seconds [Y] 2/2 LILIANA: A single deepest vertical pocket of amniotic fluid greater than 2 cm [Y] 2/2 LILIANA: 10.9 cm. This is in low-normal range. Total score: 8/8 IMPRESSION: NORMAL BIOPHYSICAL PROFILE Impression dictated by: Lise Bolanos M.D. 01/25/2025 11:48 AM Dictation Location: [place] [address] Electronically authenticated by: [id number] Y Date: 01/25/2025 11:48
--- OUTSIDE RECORDS SUMMARY | 2025-01-25 09:49 | XMS_ITS | CCD ---
Author Organization [facility] Care Team Providers Care Shellfish Dredge Operator Name Role Phone Gloria Hayden Unavailable RAY [...] HOY ., DR KUMARI Primary Care Unavailable PINELAND, DR PEREZ Luther Consulting Unavailable SILVIA ., DR TOUSSAINT Attending Unavailable SILVIA ., DR TOUSSAINT Consulting Unavailable HOY ., DR KUMARI Primary Care Unavailable PINELAND, DR PEREZ Luther Consulting Unavailable SILVIA ., DR TOUSSAINT Admitting Unavailable SILVIA ., DR TOUSSAINT Attending Unavailable SILVIA ., DR TOUSSAINT Consulting Unavailable SILVIA ., DR TOUSSAINT Admitting Unavailable HOY ., DR KUMARI Primary Care Unavailable PINELAND, DR PEREZ Luther Consulting Unavailable SILVIA ., [...] Unavailable Quoc Watts MD Primary Care Provider [phone] Norbert Vega Attending Unavailable Silvia, Norbert Admitting Unavailable Quoc Watts MD Primary Care Provider [phone] GEN KANG Attending Unavailable SILVIA, NORBERT R Referring Unavailable QUOC WATTS Primary Care Unavailable SILVIA, NORBERT R Referring Unavailable QUOC WATTS Primary Care Unavailable SILVIA, NORBERT R. Referring Unavailable QUOC WATTS Primary Care Unavailable Quoc Watts MD Primary Care Provider [phone] Quoc Watts MD Primary Care Provider [phone] SILVIA, NORBERT Attending Unavailable SILVIA, NORBERT Attending Unavailable SILVIA, NORBERT Attending Unavailable SILVIA, NORBERT Attending Unavailable SILVIA, NORBERT Attending Unavailable SILVIA, NORBERT Attending Unavailable SILVIA, NORBERT Attending Unavailable SILVIA, NORBERT Attending Unavailable SILVIA, NORBERT Attending Unavailable Allergies Allergy Classification Reported Allergen(s) Allergy Type Date of Onset Reaction(s) Facility (20 sources) Penicillin G Drug Allergy 10-31-19 25 Anaphylaxis [employer] Other (1 source) Cefaclor Drug Allergy [facility]ository (6 sources) Penicillins; Translations: [PENICILLINS] Drug allergy (disorder) 01-26-20 16 [facility] (20 sources) Penicillins Drug Intolerance 10-21-19 19 Unknown [facility] Work Phone: (1 source) Penicillin Drug Allergy 11-21-19 23 [facility] Repository (1 source) Penicillins Propensity to adverse reactions to drug 10-21-19 19 [facility] (20 sources) Cefaclor Drug Allergy 10-31-19 25 Anaphylaxis [facility] Healthcare (20 sources) Sulfamethoxazole / Trimethoprim Drug Allergy 10-31-19 25 [facility] Medications Current Medications Medication Drug [...] tablet Orally Once a day Active omega 5-osk-kor-fish oil (Fish OiL) 300-1,000 mg capsule (3 sources) take 300-1000 mg by mouth once daily omega 4-ced-bec-fish oil (Fish OiL) 300-1,000 mg capsule Take 1 capsule by mouth once daily. Active ondansetron 4 mg disintegrating oral tablet (2 sources) Serotonin-3 Receptor Antagonist Start: 01-22-2025 End: 02-21-2025 take 1 tablet by mouth every six hours for nausea ondansetron ODT (Zofran-ODT) 4 MG disintegrating tablet Indications: Vomiting affecting ([facility]) Take 1 tablet (4 mg) by mouth every 6 (six) hours if needed for nausea or vomiting 30 tablet 2 01/22/2025 02/21/2025 Active polysaccharide iron complex 391 mg oral capsule (12 sources) Start: 01-10-2025 End: 02-09-2025 take 1 capsule by mouth once daily iron polysaccharides (ProFe) 391.3 (180 Fe) MG capsule Indications: Anemia during in second trimester ([facility]) Take 1 capsule (391.3 mg) by mouth [...] Daily Active take 1 capsule by mo uth once in the morning coenzyme Q10 50 [...] UA Negative Negative - 4(70) +++ mg/dL [facility] Blood, UA Negative Negative - 50 Doroteo/mcL [facility] Clarity, UA Clear [facility] Color, UA Yellow [facility] Glucose, UA Negative Negative - 1999(110) ++++ mg/dL [facility] Interpretation and review of laboratory results Abnormal [facility] Ketones, UA Negative Negative - 160(16) ++++ mg/dL [facility] Leukocytes, UA Trace Negative - 500+++ Celina/mcL [facility] Nitrite, UA Negative Negative - Positive [facility] pH, UA 6.5 5 - 9 [facility] Protein, UA Negative Negative - 1999(20) ++++ mg/dL [facility] Spec Grav, UA 1.015 1 - 1.03 [facility] Urobilinogen, UA 0.2 0.2 - 12 mg/dL [facility] US OB BPP W NON-STRESS on 01-19-[address] [address] Ultrasound Report Signed Patient: JANNIE ANTONIO MR#: [id number] : 1985 Acct:[id number] Age/Sex: 39 / F ADM Date: 01/18/25 Loc: US Attending Dr: Norbert Vega D.O. Ordering Physician: Norbert Vega D.O. Date of Service: 01/18/25 Procedure(s): US OB BPP w non-stress Accession Number(s): [id number] cc: Norbert Vega D.O.; Quoc Watts M.D. [place] [address] Patient Name: JANNIE ANTONIO MRN: [facility]:[id number] date: 1985 Sex: F Assigned Patient Location: Current Patient Location: Accession/Order Number: [id number] Exam Date: 01/18/2025 11:15 Report Date: 01/18/2025 [...] Bolanos M.D. 01/18/2025 11:16 AM Dictation Location: [place] [address] Electronically authenticated by: [id number] Y Date: 01/18/2025 11:16 Dictated By: Lise Bolanos M.D. Signed By: 01/19/25 0928 DD/ 1116 TD/TT: Tonguer: [facility] Radiology, Radiologist, - 01/19/2025 [place] [address] Ultrasound Report Signed Patient: JANNIE ANTONIO MR#: [id number] : 1985 Acct:[id number] Age/Sex: 39 / F ADM Date: 01/18/25 Loc: US Attending Dr: Norbert Vega D.O. Ordering Physician: Norbert Vega D.O. Date of Service: 01/18/25 Procedure(s): US OB BPP w non-stress Accession Number(s): [id number] cc: Norbert Vega D.O.; Quoc Watts M.D. The [place] [id number] Patient Name: JANNIE ANTONIO MRN: [id number]:[id number] date: 1985 Sex: F Assigned Patient Location: US Current Patient Location: Accession/Order Number: [id number] Exam Date: 01/18/2025 11:15 Report Date: 01/18/2025 [...] Bolanos M.D. 01/18/2025 11:16 AM Dictation Location: [place] [address] Electronically authenticated by: [id number] Y Date: 01/18/2025 11:16 Dictated By: Lise Bolanos M.D. Signed By: 01/19/25 0928 DD/ 1116 TD/TT: Tonguer: [facility] US OB BPP W NON-STRESS Ordered By: Radiologist Radiology on 01-19-2025 [facility] Work Phone: US OB BPP W NON-STRESS on 01-18-2025 Radiology Study observation (narrative) [facility] Urinalysis macro (dipstick) panel (U)on 01-15-2025 Bilirubin, UA Negative Negative - 4(70) +++ mg/dL [facility] Blood, UA Negative Negative - 50 Doroteo/mcL [facility] Healthcare Clarity, UA Clear [facility] Color, UA Yellow [facility] Glucose, UA Negative Negative - 1999(110) ++++ mg/dL [facility] Interpretation and review of laboratory results Abnormal [facility] Ketones, UA Negative Negative - 160(16) ++++ mg/dL [facility] Leukocytes, UA Negative Negative - 500+++ Celina/mcL [facility] Nitrite, UA Negative Negative - Positive [facility] pH, UA 6.5 5 - 9 [facility] Protein, UA Trace Negative - 1999(20) ++++ mg/dL [facility] Spec Grav, UA 1.02 1 - 1.03 [facility] Urobilinogen, UA 0.2 0.2 - 12 mg/dL [facility] Urinalysis macro (dipstick) panel (U)on 01-08-2025 Bilirubin, UA Negative Negative - 4(70) +++ mg/dL [facility] Blood, UA Negative Negative - 50 Doroteo/mcL [facility] Clarity, UA Clear [facility] Color, UA Yellow [facility] Glucose, UA Negative Negative - 2000(110) ++++ mg/dL [facility] Interpretation and review of laboratory results Normal [facility] Ketones, UA Negative Negative - 160(16) ++++ mg/dL [facility] Leukocytes, UA Negative Negative - 500+++ Celina/mcL [facility] Nitrite, UA Negative Negative - Positive [facility] pH, UA 5.5 5 - 9 [facility] Protein, UA Negative Negative - 1999(20) ++++ mg/dL [facility] Spec Grav, UA 1.02 1 - 1.03 [facility] Urobilinogen, UA 1.0 0.2 - 12 mg/dL [facility] US OB BPP W NON-STRESS on 01-04-2025 [place] [address] Ultrasound Report Signed Patient: JANNIE ANTONIO MR#: [id number] : 1985 Acct:[id number] Age/Sex: 39 / F ADM Date: 01/04/25 Loc: [facility] 250-[address]: Norbert Vega D.O. Ordering Physician: Norbert Vega D.O. Date of Service: 01/04/25 Procedure(s): US OB BPP w non-stress Accession Number(s): [id number] cc: Norbert Vega D.O.; Quoc Watts M.D. The [place] [address] Patient Name: JANNIE ANTONIO MRN: [id number] date: 1985 Sex: F Assigned Patient Location: Current Patient Location: US Accession/Order Number: [id number] Exam Date: 01/04/2025 11:35 Report Date: 01/04/2025 11:36 At the request of: NORBERT VEGA DO Procedure: US OB BPP w non-stress BIOPHYSICAL PROFILE: CLINICAL INFORMATION: Multigravida of advanced maternal age COMPARISON: 12/28/2024 There is a single live intrauterine gestation in cephalic presentation. The reported gestational age is 33 weeks 5 days. The heart rate [id number] beats per minute. FINDINGS: TONE: 1 or [...] Bolanos M.D. 01/04/2025 11:36 AM Dictation Location: [place] [address] Electronically authenticated by: [id number] Y Date: 01/04/2025 11:36 Dictated By: Lise Bolanos M.D. Signed By: 01/04/25 1139 DD/ 1136 TD/TT: Tonguer: [facility] Radiology, Radiologist, - 01/04/2025 [place] [address] Ultrasound Report Signed Patient: JANNIE ANTONIO MR#: [id number] : 1985 Acct:[id number] Age/Sex: 39 / F ADM Date: 01/04/25 Loc: [place] [address]: Norbert Vega D.O. Ordering Physician: Norbert Vega D.O. Date of Service: 01/04/25 Procedure(s): US OB BPP w non-stress Accession Number(s): [id number] cc: Norbert Vega D.O.; Quoc Watts M.D. The [place] [id number] Patient Name: JANNIE ANTONIO MRN: [facility]:[id number] date: 1985 Sex: F Assigned Patient Location: Current Patient Location: US Accession/Order Number: [id number] Exam Date: 01/04/2025 11:35 Report Date: 01/04/2025 11:36 At the request of: NORBERT VEGA DO Procedure: US OB BPP w non-stress BIOPHYSICAL PROFILE: CLINICAL INFORMATION: Multigravida of advanced maternal age COMPARISON: 12/28/2024 There is a single live intrauterine gestation in cephalic presentation. The reported gestational age is 33 weeks 5 days. The heart rate [id number] beats per minute. FINDINGS: TONE: 1 or [...] is in low-normal range. Total score: 8/8 US/ OB BPP w non-stress IMPRESSION: NORMAL BIOPHYSICAL PROFILE. Impression dictated by: Lise Bolanos M.D. 01/04/2025 11:36 AM Dictation Location: [place] [address] Electronically authenticated by: [id number] Y Date: 01/04/2025 11:36 Dictated By: Lise Bolanos M.D. Signed By: 01/04/25 1139 DD/ 1136 TD/TT: Tonguer: [facility] Radiology Study observation (narrative) [facility] OB BPP W NON-STRESS Ordered By: Radiologist Radiology on 01-04-2025 [facility] Work Phone: Urinalysis macro (dipstick) panel (U)on 12-26-2024 Bilirubin, UA Negative Negative - 4(70) +++ mg/dL [facility] Blood, UA Negative Negative - 50 Dorotoe/mcL [facility] Clarity, UA Clear [facility] Color, UA Yellow [facility] Glucose, UA Negative Negative - 1999(110) ++++ mg/dL [facility] Interpretation and review of laboratory results Normal [facility] Ketones, UA Negative Negative - 160(16) ++++ mg/dL [facility] Leukocytes, UA Negative Negative - 500+++ Celina/mcL [facility] Nitrite, UA Negative Negative - Positive [facility] pH, UA 7 5 - 9 [facility] Protein, UA Negative Negative - 2000(20) ++++ mg/dL [facility] Spec Grav, UA 1.015 1 - 1.03 [facility] Urobilinogen, UA 0.2 0.2 - 12 mg/dL [facility] OB BPP W NON-STRESS on 12-21-[address] [address] Ultrasound Report Signed Patient: JANNIE ANTONIO MR#: [id number] : 1985 Acct:[id number] Age/Sex: 39 / F ADM Date: 12/21/24 Loc: US Attending Dr: Norbert Vega D.O. Ordering Physician: Norbert Vega D.O. Date of Service: 12/21/24 Procedure(s): US OB BPP w non-stress Accession Number(s): [id number] cc: Norbert Vega D.O.; Quoc Watts M.D. [place] [id number] Patient Name: JANNIE ANTONIO MRN: [id number]:[id number] date: 1985 Sex: F Assigned Patient Location: [facility] Current Patient Location: Accession/Order Number: [id number] Exam Date: 12/21/2024 11:37 Report Date: 12/21/2024 [...] Metzger M.D. 12/21/2024 11:39 AM Dictation Location: [place] [address] Electronically authenticated by: [id number] Y Date: 12/21/2024 11:39 Dictated By: Jonah Metzger M.D. Signed By: 12/21/24 1141 DD/ 1139 TD/TT: Tonguer: [facility] Radiology, Radiologist, - 12/21/2024 [place] [address] Ultrasound Report Signed Patient: JANNIE ANTONIO MR#: [id number] : 1985 Acct:[id number] Age/Sex: 39 / F ADM Date: 12/21/24 Loc: US Attending Dr: Norbert Vega D.O. Ordering Physician: Norbert Vega D.O. Date of Service: 12/21/24 Procedure(s): US OB BPP w non-stress Accession Number(s): [id number] cc: Norbert Vega D.O.; Quoc Watts M.D. The [place] [id number] Patient Name: JANNIE ANTONIO MRN: [facility]:[id number] date: 1985 Sex: F Assigned Patient Location: [facility] Current Patient Location: Accession/Order Number: [id number] Exam Date: 12/21/2024 11:37 Report Date: 12/21/2024 [...] Metzger M.D. 12/21/2024 11:39 AM Dictation Location: [place] [address] Electronically authenticated by: [id number] Y Date: 12/21/2024 11:39 Dictated By: Jonah Metzger M.D. Signed By: 12/21/24 1141 DD/ 1139 TD/TT: [facility] Rad[facility] Study observation (narrative) [facility] US OB BPP W NON-STRESS Ordered By: Radiologist Radiology on 12-21-2024 [facility] Work Phone: US OB GROWTHon 12-21-2024 [place] [address] Ultrasound Report Signed Patient: JANNIE ANTONIO MR#: [id number] : 1985 Acct:[id number] Age/Sex: 39 / F ADM Date: 12/21/24 Loc: US Attending Dr: Norbert Vega D.O. Ordering Physician: Norbert Vega D.O. Date of Service: 12/21/24 Procedure(s): US OB growth Accession Number(s): [id number] cc: Norbert Vega D.O.; Quoc Watts M.D. [place] [id number] Patient Name: JANNIE ANTONIO MRN: [id number]:[id number] date: 1985 Sex: F Assigned Patient Location: [facility] Current Patient Location: Accession/Order Number: [id number] Exam Date: 12/21/2024 11:39 Report Date: 12/21/2024 [...] Metzger M.D. 12/21/2024 11:41 AM Dictation Location: [place] [address] Electronically authenticated by: [id number] Y Date: 12/21/2024 11:41 Dictated By: Jonah Metzger M.D. Signed By: 12/21/24 1143 DD/ 1141 TD/TT: Tonguer: [facility] Radiology, Radiologist, MD - 12/21/2024 [place] [address] Ultrasound Report Signed Patient: JANNIE ANTONIO MR#: [id number] : 1985 Acct:[id number] Age/Sex: 39 / F ADM Date: 12/21/24 Loc: US Attending Dr: Norbert Vega D.O. Ordering Physician: Norbert Vega D.O. Date of Service: 12/21/24 Procedure(s): US OB growth Accession Number(s): [id number] cc: Norbert Vega D.O.; Quoc Watts M.D. The [place] [id number] Patient Name: JANNIE ANTONIO MRN: [facility]:[id number] date: 1985 Sex: F Assigned Patient Location: [facility] Current Patient Location: Accession/Order Number: [id number] Exam Date: 12/21/2024 11:39 Report Date: 12/21/2024 [...] Metzger M.D. 12/21/2024 11:41 AM Dictation Location: [place] [address] Electronically authenticated by: [id number] Y Date: 12/21/2024 11:41 Dictated By: Jonah Metzger M.D. Signed By: 12/21/24 1143 DD/ 1141 TD/TT: Tonguer: [facility] Radiology Study observation (narrative) [facility] US OB GROWTHOrdered By: Suleman [email or web address] Radiology on 12-21-2024 [facility] Work Phone: US OB FOLLOW [...] II, MD, PHD at 13-Dec-2024 08:39:30 AM [facility] Normal Not Available Comment on above: Order Comment: US OB SCAN FOR GROWTH Estimated Date of Delivery: 02/17/25 Gestational Age as of 11/27/2024: 28w2d Urinalysis macro (dipstick) panel (U)on 12-11-2024 Bilirubin, UA Negative Negative - 4(70) +++ mg/dL [facility] Blood, UA Positive Negative - 50 Doroteo/mcL [facility] Comment on above: Moderate Clarity, UA Clear [facility] Color, UA Yellow [facility] Glucose, UA Negative Negative - 1999(110) ++++ mg/dL [facility] Interpretation and review of laboratory results Abnormal [facility] Ketones, UA Negative Negative - 160(16) ++++ mg/dL [facility] Leukocytes, UA Negative Negative - 500+++ Celina/mcL [facility] Nitrite, UA Negative Negative - Positive [facility] pH, UA 6 5 - 9 [facility] Protein, UA Negative Negative - 2000(20) ++++ mg/dL [facility] Spec Grav, UA 1.005 1 - 1.03 [facility] Urobilinogen, UA 0.2 0.2 - 12 mg/dL [facility] UA (CLEAN/CATCH) MICROSC OPIC IF INDICATEon 12-09-2024 BILIRUBIN URINE Negative NEGATIVE [facility] BLOOD URINE LARGE Abnormal NEGATIVE [facility] Clarity (U) SL CLOUDY CLEAR [facility] Color (U) YELLOW YELLOW [facility] GLUCOSE URINE UA Negative NEGATIVE mg/dL [facility] Interpretation and review of laboratory results Abnormal [facility] Ketones Ql (U) 15 mg/dL Abnormal NEGATIVE [facility] Leukocyte esterase Test strip Ql (U) Negative NEGATIVE [facility] NITRITE URINE Negative NEGATIVE [facility] pH (U) 6.0 [pH] 5.0 - 9.0 [facility] Protein (U) [Mass/Vol] 100 mg/dL Abnormal NEG/TRACE NO [facility] SPECIFIC GRAVITY URINE >=1.030 Abnormal 1.005 - 1.025 [facility] URINE MICROSCOPIC INDICATED YES [facility] UROBILINOGEN URINE 1.0 EU/dL 0.2 - 1.0 EU/dL [facility] UA (CLEAN/CATCH) OSHA INSPECTOR/LA RO IF IND.on 11-30-2024 BILIRUBIN URINE Negative NEGATIVE [facility] BLOOD URINE Negative NEGATIVE [facility] Clarity (U) CLEAR CLEAR [facility] Color (U) LT. YELLOW YELLOW [facility] GLUCOSE URINE UA Negative NEGATIVE mg/dL [facility] Ketones Ql (U) Negative NEGATIVE mg/dL [facility] Leukocyte esterase Test strip Ql (U) Negative NEGATIVE [facility] NITRITE URINE Negative NEGATIVE [facility] pH (U) 6.5 [pH] 5.0 - 9.0 [facility] PROTEIN URINE Negative NEG/TRACE mg/dL [facility] SPECIFIC GRAVITY URINE 1.010 1.005 - 1.025 [facility] URINE MICROSCOPIC INDICATED NO [facility] UROBILINOGEN URINE 0.2 EU/dL 0.2 - 1.0 EU/dL [facility] (dipstick) panel (U)on 11-27-2024 Bilirubin, UA Negative Negative - 4(70) +++ mg/dL [facility] Blood, UA Positive Negative - 50 Doroteo/mcL [facility] Comment on above: trace Clarity, UA Clear [facility] Color, UA Yellow [facility] Glucose, UA Negative Negative - 1999(110) ++++ mg/dL [facility] Interpretation and review of laboratory results Abnormal [facility] Ketones, UA Positive Negative - 160(16) ++++ mg/dL [facility] Comment on above: trace Leukocytes, UA Trace Negative - 500+++ Celina/mcL [facility] Nitrite, UA Negative Negative - Positive [facility] pH, UA 5.5 5 - 9 [facility] Protein, UA Positive Negative - 1999(20) ++++ mg/dL [facility] Comment on above: 30 Spec Grav, UA 1.025 1 - 1.03 [facility] Urobilinogen, UA 0.2 0.2 - 12 mg/dL [facility] RECURRENT VAGINITIS (HTRX)on 10-03-2024 ATOPOBIUM VAGINAE 0 [facility] ATOPOBIUM VAGINAE Not detected [facility] BVAB 2,3 (BACTERIAL VAGINOSIS ASSOCIATED BACTERIA 2, 3); MOBILUNCUS SPP 0 [facility] BVAB 2,3 (BACTERIAL VAGINOSIS ASSOCIATED BACTERIA 2, 3); MOBILUNCUS SPP Not detected [facility] JAYRO ALBICANS, PARAPSILOSIS, TROPICALIS 0 [facility] JAYRO ALBICANS, PARAPSILOSIS, TROPICALIS Not detected [facility] JAYRO GLABRATA 0 [facility] JAYRO GLABRATA Not detected [facility] JAYRO KRUSEI 0 [facility] JAYRO KRUSEI Not detected [facility] CHLAMYDIA TRACHOMATIS 0 [facility] CHLAMYDIA TRACHOMATIS Not detected N [facility] GARDNERELLA VAGINALIS 0 [facility] GARDNERELLA VAGINALIS Not detected N [facility] MEGASPHAERA (TYPES 1, 2) 0 [facility] MEGASPHAERA (TYPES 1, 2) Not detected [facility] MYCOPLASMA GENITALIUM 0 [facility] MYCOPLASMA GENITALIUM Not detected N [facility] NEISSERIA GONORRHOEAE 0 [facility] NEISSERIA GONORRHOEAE Not detected N [facility] TRICHOMONAS VAGINALIS 0 [facility] TRICHOMONAS VAGINALIS Not detected N [facility] Urinalysis macro (dipstick) panel (U)on 10-02-2024 Bilirubin, UA Negative Negative - 4(70) +++ mg/dL [facility] Blood, UA Positive Negative - 50 Doroteo/mcL [facility] Comment on above: trace-intact Clarity, UA Clear [facility] Color, UA Yellow [facility] Glucose, UA Negative Negative - 1999(110) ++++ mg/dL [facility] Interpretation and review of laboratory results Abnormal [facility] Ketones, UA Negative Negative - 160(16) ++++ mg/dL [facility] Leukocytes, UA Trace Negative - 500+++ Celina/mcL [facility] Nitrite, UA Negative Negative - Positive [facility] pH, UA 7 5 - 9 [facility] Protein, UA Negative Negative - 1999(20) ++++ mg/dL [facility] Spec Grav, UA 1.015 1 - 1.03 [facility] Urobilinogen, UA 0.2 0.2 - 12 mg/dL [facility] AFP, SERUM, OPEN SPINA BIFID Aon 09-16-2024 AFP MOM 0.89 . [facility] AFP VALUE 35.2 ng/mL . [facility] COMMENT: Comment . [facility] Comment on above: Patricia Lozano , Ph.D., [facility] Director References: Available Upon Request. Multiples Of Median Cutoffs For AFP Elevations Zhao 2.5 Black 2.8 IDD 2.0 Twins 4.5 Abbreviation Definitions IDD - Insulin Dep Diabetes OSBR - Open Spina Bifida Risk For further inquiries contact [facility] at [phone]. This test was developed and its performance characteristics determined by [facility]. It has not been cleared or approved by the Food and Drug Administration. Performed at: [facility] [address], [place] [id number] Call Centre Supervisor: Charlotte Ramos [facility], Phone: [phone] GEST. AGE ON COLLECTION DATE 17.6 . weeks [facility] GESTAT. AGE BASED ON LMP . [facility] Comment on above: Recalculations are n ot recommended when gestational dating by LMP and ultrasound are within 10 days. INSULIN DEP DIABETES No . [facility] INTERPRETATION Comment . [facility] Comment on above: Interpretation: Scre [...] Customer Services to discuss available options. The [employer] recommends amniocentesis be offered to women age 35 and older. [age]ER[age] [facility] MULTIPLE GESTATION No . [facility] OSBR [place]IS[place] [id number] . [facility] RACE . [facility] RESULTS Report . [facility] TEST RESULTS: Negative . [facility] WEIGHT 158 . lbs [facility] N N LMP [id number] 2 16 N 1 158 N N N N N White/ [facility] Urinalysis macro (dipstick) panel (U)on 09-04-2024 Bilirubin, UA Negative Negative - 4(70) +++ mg/dL [facility] Blood, UA Negative Negative - 50 Doroteo/mcL [facility] Clarity, UA Clear [facility] Color, UA Yellow [facility] Glucose, UA Negative Negative - 2000(110) ++++ mg/dL [facility] Interpretation and review of laboratory results Abnormal [facility] Ketones, UA Negative Negative - 160(16) ++++ mg/dL [facility] Leukocytes, UA Negative Negative - 500+++ Celina/mcL [facility] Nitrite, UA Negative Negative - Positive [facility] pH, UA 6.5 5 - 9 [facility] Protein, UA Negative Negative - 2000(20) ++++ mg/dL [facility] Spec Grav, UA 1.02 1 - 1.03 [facility] Urobilinogen, UA 0.2 0.2 - 12 mg/dL [facility] DRUG SCREEN RAPID (URINE )on 07-31-2024 AMPHETAMINE SCREEN URINE Negative NEGATIVE [facility] BARBITURATES SCREEN URINE Negative NEGATIVE [facility] BENZODIAZEPINES SCREEN URINE Negative NEGATIVE [facility] BUPRENORPHINE SCREEN URINE Negative NEGATIVE [facility] Comment on above: DRUG CLASS [...] 300 ng/mL CANNABINOID SCREEN URINE Negative NEGATIVE [facility] COCAINE SCREEN URINE Negative NEGATIVE [facility] METHADONE SCREEN URINE Negative NEGATIVE NO [facility] METHAMPHETAMINES SCREEN URINE Negative NEGATIVE [facility] OPIATE SCREEN URINE Negative NEGATIVE [facility] OXYCODONE SCREEN URINE Negative NEGATIVE NO [facility] PHENCYCLIDINE SCREEN URINE Negative NEGATIVE [facility] TRICYCLIC ANTIDEPRESSANT URINE Negative NEGATIVE [facility]on 07-31-2024 Bacteria identified Cx Nom (U) 20,000 colonies/ml mixed bacterial skin contaminants 2 Days PERFORMED BY: [place] [address] PATHOLOGIST WELDING INSPECTOR NAIDA GARZON M.D. Normal [facility] Comment on above: Performed By: #### C UU #### [address] BOX TESTon 07-28-2024 BOX TEST SENT OUT [facility] BOX1 UNITY [facility] BOX2 07/28/24 [facility]ITY BOX [facility] HCG ( test) Ql (U)o n 07-28-2024 Interpretation and review of laboratory results Abnormal [facility] Preg Test, Ur Positive Negative [facility] Urinalysis macro (dipstick) panel (U)on 07-28-2024 Bilirubin, UA Negative Negative - 4(70) +++ mg/dL [facility] Blood, UA Positive Negative - 50 Doroteo/mcL [facility] Clarity, UA Clear [facility] Color, UA Yellow [facility] Glucose, UA Negative Negative - 1999(110) ++++ mg/dL [facility] Interpretation and review of laboratory results Abnormal [facility] Ketones, UA Negative Negative - 160(16) ++++ mg/dL [facility] Leukocytes, UA Negative Negative - 500+++ Celina/mcL [facility] Nitrite, UA Negative Negative - Positive [facility] pH, UA 6.5 5 - 9 [facility] Protein, UA Trace Negative - 1999(20) ++++ mg/dL [facility] Spec Grav, UA 1.025 1 - 1.03 [facility] Urobilinogen, UA 0.2 0.2 - 12 mg/dL [facility] PREG QUANT HCGon 06-27- 024 HCG QUANTITATIVE 46093 mIU/mL [facility] Comment on above: 5-50 0.2-1 WEEK 50-500 1-2 WEEKS 100-5,000 2-3 WEEKS 500-10,000 3-4 WEEKS 1,000-50,000 4-5 WEEKS 10,000-100,000 5-6 WEEKS 15,000-200,000 6-8 WEEKS 10,000-100,000 2[facility] 06-21- 024 HCG QUANTITATIVE 4062 mIU/mL [facility] Comment on above: 5-50 0.2-1 WEEK 50-500 1-2 WEEKS 100-5,000 2-3 WEEKS 500-10,000 3-4 WEEKS 1,000-50,000 4-5 WEEKS 10,000-100,000 5-6 WEEKS 15,000-200,000 6-8 WEEKS 10,000-100,000 2-[facility]on 06-19- 024 HCG QUANTITATIVE 3108 mIU/mL [facility] Comment on above: 5-50 0.2-1 WEEK 50-500 1-2 WEEKS 100-5,000 2-3 WEEKS 500-10,000 3-4 WEEKS 1,000-50,000 4-5 WEEKS 10,000-100,000 5-6 WEEKS 15,000-200,000 6-8 WEEKS 10,000-100,000 2-3 MONTHS [facility] ALL CBC WITH AUTO DIFFon BASOPHILS ABSOLUTE AUTO 0.0 N [facility] Basophils/100 WBC (Bld) 0.2 % 0.2 - 2.0 % [facility] Eosinophils/100 WBC (Bld) 0.8 % Low 0.9 - 7.0 % [facility] Erythrocyte distribution width (RBC) [Ratio] 13.4 % 11.0 - 15.0 % [facility] Hematocrit (Bld) [Volume fraction] 42.3 % 36.0 - 48.0 % [facility] Hemoglobin (Bld) [Mass/Vol] 13.6 g/dL 12.0 - 16.0 g/dL [facility] IMMATURE GRANULOCYTES ABS AUTO 0.02 [facility] Immature granulocytes/100 WBC (Bld) 0.3 % 0.0 - 0.5 % [facility] Interpretation and review of laboratory results Abnormal [facility] LYMPHOCYTES ABSOLUTE AUTO 1.7 [facility] Lymphocytes/100 WBC (Bld) 26.5 % 20 .5 - 60.0 % [facility] MCH (RBC) [Entitic mass] 30.1 pg 26. 7 - 34.0 pg [facility] MCHC (RBC) [Mass/Vol] 32.2 g/dL 29.9 - 35.2 g/dL [facility] MCV (RBC) [Entitic vol] 93.6 fL 81.0 - 99.0 fL [facility] MONOCYTES ABSOLUTE AUTO 0.5 N [facility] Monocytes/100 WBC (Bld) 7.3 % 1.7 - 12.0 % [facility] NEUTROPHILS ABSOLUTE AUTO 4.3 [facility] Neutrophils/100 WBC (Bld) 64.9 % 43 .0 - 75.0 % [facility] Platelet mean volume (Bld) [Entitic vol] 10.8 fL 9.5 - 13.5 fL [facility] EO # 0.1 [facility] PLT 220 [facility] RBC 4.52 [facility] WBC 6.5 [facility] PROGESTERONEon 12-19-2022 Progesterone 9.6 ng/mL Normal [facility] Comment on above: Result Comment: Foll icular phase 0.1 - 0.9 Luteal phase 1.8 - 23.9 Ovulation phase 0.1 - 12.0 First trimester 11.0 - 44.3 Second trimester 25.4 - 83.3 Third trimester 58.7 - 214.0 Postmenopausal 0.0 - 0.1 Performed By: #### P ROGES #### [facility] [address] [place] [address] Dr. Josie Sanchez PROGESTERONEon 11-19-2022 Progesterone 6.3 ng/mL Normal [facility] Comment on above: Result Comment: Foll icular phase 0.1 - 0.9 Luteal phase 1.8 - 23.9 Ovulation phase 0.1 - 12.0 First trimester 11.0 - 44.3 Second trimester 25.4 - 83.3 Third trimester 58.7 - 214.0 Postmenopausal 0.0 - 0.1 Performed By: #### P ROGES #### [facility] [address] [place] [address] Dr. Josie Sanchez PREG QUANT HCGon 11-18-2022 HCG QUANT <1 Normal [facility] Comment on above: Performed By: #### P REGQNT #### [facility] [address] [place] [address] Dr. Josie Sanchez HCG RANGE SEE BELOW Normal [facility] Comment on above: Result Comment: 5-50 0.2-1 WEEK 50-500 1-2 WEEKS 100-5,000 2-3 WEEKS 500-10,000 3-4 WEEKS 1,000-50,000 4-5 WEEKS 10,000-100,000 5-6 WEEKS 15,000-200,000 6-8 WEEKS 10,000-100,000 2-3 MONTHS Performed By: #### P REGQNT #### [facility] [address] [place] [address] Dr. Josie Sanchez US PELVIS AND TRANSVAGon [...] a yolk sac as noted by lead radiologic technologist. No significant free pelvic fluid is [...] by: RENE MEYERS Date: 2022-11-16 18:09 Normal [facility] DHEA SERUMon 11-11-2022 Dehydroepiandrosterone (DHEA) 335 ng/dL Normal 31-701 [facility] Comment on above: Performed By: #### E RILEY MEANS #### [facility] [address] [place] [address] Dr. Josie Sanchez DHEA-SULFATEon 11-10-2022 DHEA-Sulfate 251.0 ug/dL Normal 57.3-279.2 [facility] Comment on above: Performed By: #### P REGQNT #### [facility] [address] [place], [place] [address] Dr. Josie Sanchez ESTRADIOLon 11-10-2022 Estradiol 66.1 pg/mL Normal [facility] Comment on above: Result Comment: Adul t Female: Follicular phase 12.5 - 166.0 Ovulation phase 85.8 - 498.0 Luteal phase 43.8 - 211.0 Postmenopausal <6.0 - 54.7 1st trimester 215.0 - >4300.0 [place] ECLIA methodology Performed By: #### E KIAN MEANSRO #### [facility] [address] [place] [address] Dr. Josie Sanchez FSHon 11-10-2022 FSH 6.9 mIU/mL Normal [facility] Comment on above: Result Comment: Adul t Female: Follicular phase 3.5 - 12.5 Ovulation phase 4.7 - 21.5 Luteal phase 1.7 - 7.7 Postmenopausal 25.8 - 134.8 Performed By: #### P REGQNT #### [facility] [address] [place] [address] Dr. Joise Snachez LUTEINIZING HORMONE (LH)on 0 11-10-2022 LH 9.9 mIU/mL Normal [facility] Comment on above: Result Comment: Adul t Female: Follicular phase 2.4 - 12.6 Ovulation phase 14.0 - 95.6 Luteal phase 1.0 - 11.4 Postmenopausal 7.7 - 58.5 Performed By: #### RILEY VALERIO #### [facility] [address] [place] [address] Dr. Josie Sanchez CBC AUTO DIFFon 11-09-2022 BASO # 0.0 103/ul Normal 0.0-0.1 [facility] Comment on above: Performed By: #### RILEY VALERIO #### [facility] [address] [place] [address] Dr. Josie Sanchez Basophils/100 WBC (Bld) 0.3 % Normal 0.2-2.0 [facility] Comment on above: Performed By: #### RILEY VALERIO #### [facility] [address] [place] [address] Dr. Josie Sanchez EO # 0.0 103/ul Normal 0.0-0.7 [facility] Comment on above: Performed By: #### RILEY VALERIO #### [facility] [address] [place] [address] Dr. Josie Sanchez Eosinophils/100 WBC (Bld) 0.5 % Critically low 0.9-7. 0 [facility] Comment on above: Performed By: #### RILEY VALERIO #### [facility] [address] [place] [address] Dr. Josie Sanchez Erythrocyte distribution width (RBC) [Ratio] 13.2 % Normal 11.0-15.0 [facility] Comment on above: Performed By: #### Clyde MEANS UMICRO #### [facility] [address] [place] [address] Dr. Josie Sanchez Hematocrit (Bld) [Volume fraction] 41.8 % Normal 36.0-48.0 [facility] Comment on above: Performed By: #### E MIGUELANGEL UMICRO #### [facility] [address] [place] [address] Dr. Josie Sanchez Hemoglobin (Bld) [Mass/Vol] 13.7 g/dL Normal 12.0-16.0 [facility] Comment on above: Performed By: #### Clyde MEANS UMICRO #### [facility] [address] [place] [address] Dr. Josie Sanchez IG # 0.02 10e3/ul Normal 0.00-0.03 [facility] Comment on above: Performed By: #### Clyde MEANS UMICRO #### [facility] [address] [place] [address] Dr. Josie Sanchez IG % 0.3 % Normal 0.0-0.5 [facility] Comment on above: Performed By: #### Clyde MEANS UMICRO #### [facility] [address] [place] [address] Dr. Josie Sanchez LYMPH # 1.2 103/ul Normal 1.2-3.8 [facility] Comment on above: Performed By: #### Clyde MEANS UMICRO #### [facility] [address] [place] [address] Dr. Josie Sanchez Lymphocytes/100 WBC (Bld) 18.4 % Critically low 20.5-6 0.0 [facility] Comment on above: Performed By: #### Clyde MEANS UMICRO #### [facility] [address] [place] [address] Dr. Josie Sanchez MANUAL DIFF REQ NO Normal [facility] Comment on above: Performed By: #### ROBERT VALERIOICRO #### [facility] [address] [place] [address] Dr. Josie Sanchez MCH (RBC) [Entitic mass] 29.5 pg Normal 26.7-34.0 [facility] Comment on above: Performed By: #### KIAN VALERIORO #### [facility] [address] [place] [address] Dr. Josie Sanchez MCHC (RBC) [Mass/Vol] 32.8 g/dL Normal 29.9-35.2 [facility] Comment on above: Performed By: #### ROBERT VALERIOICRO #### [facility] [address] [place] [address] Dr. Josie Sanchez MCV (RBC) [Entitic vol] 89.9 fL Normal 81.0-99.0 [facility] Comment on above: Performed By: #### KIAN VALERIORO #### [facility] [address] [place] [address] Dr. Josie Sanchez MONO # 0.3 103/ul Normal 0.3-0.8 [facility] Comment on above: Performed By: #### KIAN VALERIORO #### [facility] [address] [place] [address] Dr. Josie Sanchez Monocytes/100 WBC (Bld) 5.1 % Normal 1.7-12.0 [facility] Comment on above: Performed By: #### KIAN VALERIORO #### [facility] [address] [place] [address] Dr. Josie Sanchez NEUT # 4.8 103/ul Normal 1.4-6.5 [facility] Comment on above: Performed By: #### KIAN VALERIORO #### [facility] [address] [place] [address] Dr. Josie Sanchez Neutrophils/100 WBC (Bld) 75.4 % Critically high 43.0- 75.0 [facility] Comment on above: Performed By: #### KIAN VALERIORO #### [facility] [address] [place] [address] Dr. Josie Sanchez Platelet mean volume (Bld) [Entitic vol] 9.8 fL Normal 9.5-13.5 [facility] Comment on above: Performed By: #### KIAN VALERIORO #### [facility] [address] [place] [address] Dr. Josie Sanchez PLT 256 103/ul Normal 150-450 [facility] Comment on above: Performed By: #### KIAN VALERIORO #### [facility] [address] [place] [address] Dr. Josie Sanchez RBC 4.65 106/ul Normal 4.20-5.40 [facility] Comment on above: Performed By: #### KIAN VALERIORO #### [facility] [address] [place] [address] Dr. Josie Sanchez WBC 6.4 103/ul Normal 4.0-11.0 [facility] Comment on above: Performed By: #### KIAN VALERIORO #### [facility] [address] [place] [address] Dr. Josie Sanchez FERRITINon 11-09-2022 Ferritin [Mass/Vol] 42.0 ng/mL Normal 6.2-137.0 [place] Comment on above: Performed By: #### KIAN VALERIORO #### [facility] [address] [place] [address] Dr. Josie Sanchez FREE T4on 11-09-2022 Free T4 [Mass/Vol] 0.87 ng/dL Normal 0.76-1.46 [facility] Comment on above: Performed By: #### KIAN VALERIORO #### [facility] [address] [place] [address] Dr. Josie Sanchez GLYCOHEMOGLOBIN A1Con 2022 ADA RECOMMENDATION SEE BELOW Normal [facility] Comment on above: Result Comment: ADA RECOMMENDED LIMIT 4.0 - 6.0 ADA THERAPEUTIC TARGET < 7.0 ACTION SUGGESTED > 7.0 Performed By: #### KIAN VALERIORO #### [facility] [address] [place] [address] Dr. Josie Sanchez Glucose [Mass/Vol] 100 mg/dL Normal [facility] Comment on above: Performed By: #### Clyde MEANS UMICRO #### [facility] [address] [place] [address] Dr. Josie Sanchez HbA1c (Bld) [Mass fraction] 5.1 % Normal 4.5-6.2 [facility] Comment on above: Performed By: #### Clyde MEANS UMICRO #### [facility] [address] [place] [address] Dr. Josie Sanchez PREG QUANT HCGon 11-09-2022 HCG QUANT <1 Normal [facility] Comment on above: Performed By: #### Clyde MEANS UMICRO #### [facility] [address] [place] [address] Dr. Josie Sanchez HCG RANGE SEE BELOW Normal [facility] Comment on above: Result Comment: 5-50 0.2-1 WEEK 50-500 1-2 WEEKS 100-5,000 2-3 WEEKS 500-10,000 3-4 WEEKS 1,000-50,000 4-5 WEEKS 10,000-100,000 5-6 WEEKS 15,000-200,000 6-8 WEEKS 10,000-100,000 2-3 MONTHS Performed By: #### Clyde MEANS UMICRO #### [facility] [address] [place] [address] Dr. Josie Sanchez TSHon 11-09-2022 TSH 2.163 uIU/mL Normal 0.358-3.740 [facility] Comment on above: Performed By: #### Clyde MEANS UMICRO #### [facility] [address] [place] [address] Dr. Josie Sanchez PROGESTERONEon 08-29-2022 Progesterone 7.3 ng/mL Normal [facility] Comment on above: Result Comment: Foll icular phase 0.1 - 0.9 Luteal phase 1.8 - 23.9 Ovulation phase 0.1 - 12.0 First trimester 11.0 - 44.3 Second trimester 25.4 - 83.3 Third trimester 58.7 - 214.0 Postmenopausal 0.0 - 0.1 Performed By: #### P ROGES #### [facility] [address] [place] [address] Dr. Josie Sanchez INSULINon 08-13-2022 Insulin 12.5 uIU/mL Normal 2.6-24.9 [facility] Comment on above: Performed By: #### P REGQNT #### [facility] [address] [place] [address] Dr. Josie Sanchez CBC AUTO DIFFon 08-12-2022 BASO # 0.0 103/ul Normal 0.0-0.1 [facility] Comment on above: Performed By: #### KIAN VALERIORO #### [facility] [address] [place] [address] Dr. Josie Sanchez Basophils/100 WBC (Bld) 0.2 % Normal 0.2-2.0 [facility] Comment on above: Performed By: #### KIAN VALERIORO #### [facility] [address] [place] [address] Dr. Josie Sanchez EO # 0.1 103/ul Normal 0.0-0.7 [facility] Comment on above: Performed By: #### KIAN VALERIORO #### [facility] [address] [place] [address] Dr. Josie Sanchez Eosinophils/100 WBC (Bld) 0.8 % Critically low 0.9-7. 0 [facility] Comment on above: Performed By: #### ROBERT VALERIOICRO #### [facility] [address] [place] [address] Dr. Josie Sanchez Erythrocyte distribution width (RBC) [Ratio] 14.0 % Normal 11.0-15.0 [facility] Comment on above: Performed By: #### Clyde MEANS UMICRO #### [facility] [address] [place] [address] Dr. Josie Sanchez Hematocrit (Bld) [Volume fraction] 39.5 % Normal 36.0-48.0 [facility] Comment on above: Performed By: #### Clyde MEANS UMICRO #### [facility] [address] [place] [address] Dr. Josie Sanchez Hemoglobin (Bld) [Mass/Vol] 12.7 g/dL Normal 12.0-16.0 [facility] Comment on above: Performed By: #### Clyde MEANS UMICRO #### [facility] [address] [place] [address] Dr. Josie Sanchez IG # 0.02 10e3/ul Normal 0.00-0.03 [facility] Comment on above: Performed By: #### Clyde MEANS UMICRO #### [facility] [address] [place] [address] Dr. Josie Sanchez IG % 0.3 % Normal 0.0-0.5 [facility] Comment on above: Performed By: #### Clyde MEANS UMICRO #### [facility] [address] [place] [address] Dr. Josie Sanchez LYMPH # 1.6 103/ul Normal 1.2-3.8 [facility] Comment on above: Performed By: #### Clyde MEANS UMICRO #### [facility] [address] [place] [address] Dr. Josie Sanchez Lymphocytes/100 WBC (Bld) 26.9 % Normal 20.5-60.0 [facility] Comment on above: Performed By: #### Clyde MEANS UMICRO #### [facility] [address] [place] [address] Dr. Josie Sanchez MANUAL DIFF REQ NO Normal [facility] Comment on above: Performed By: #### Clyde MEANS UMICRO #### [facility] [address] [place] [address] Dr. Josie Sanchez MCH (RBC) [Entitic mass] 28.3 pg Normal 26.7-34.0 [facility] Comment on above: Performed By: #### Clyde MEANS UMICRO #### [facility] [address] [place] [address] Dr. Josie Sanchez MCHC (RBC) [Mass/Vol] 32.2 g/dL Normal 29.9-35.2 [facility] Comment on above: Performed By: #### KIAN VALERIORO #### [facility] [address] [place] [address] Dr. Josie Sanchez MCV (RBC) [Entitic vol] 88.0 fL Normal 81.0-99.0 [facility] Comment on above: Performed By: #### ROBERT VALERIOICRO #### [facility] [address] [place] [address] Dr. Josie Sanchez MONO # 0.4 103/ul Normal 0.3-0.8 [facility] Comment on above: Performed By: #### ROBERT VALERIOICRO #### [facility] [address] [place] [address] Dr. Josie Sanchez Monocytes/100 WBC (Bld) 7.1 % Normal 1.7-12.0 [facility] Comment on above: Performed By: #### ROBERT VALERIOICRO #### [facility] [address] [place] [address] Dr. Josie Sanchez NEUT # 3.8 103/ul Normal 1.4-6.5 [facility] Comment on above: Performed By: #### Clyde MEANS UMICRO #### [facility] [address] [place] [address] Dr. Josie Sanchez Neutrophils/100 WBC (Bld) 64.7 % Normal 43.0-75.0 [facility] Comment on above: Performed By: #### Clyde MEANS UMICRO #### [facility] [address] [place] [address] Dr. Josie Sanchez Platelet mean volume (Bld) [Entitic vol] 10.1 fL Normal 9.5-13.5 [facility] Comment on above: Performed By: #### Clyde MEANS UMICRO #### [facility] [address] [place] [address] Dr. Josie Sanchez PLT 211 103/ul Normal 150-450 [facility] Comment on above: Performed By: #### KIAN VALERIORO #### [facility] [address] [place] [address] Dr. Josie Sanchez RBC 4.49 106/ul Normal 4.20-5.40 [facility] Comment on above: Performed By: #### KIAN VALERIORO #### [facility] [address] [place] [address] Dr. Josie Sanchez WBC 5.9 103/ul Normal 4.0-11.0 [facility] Comment on above: Performed By: #### KIAN VALERIORO #### [facility] [address] [place] [address] Dr. Josie Sanchez FREE THYROXINE INDEX T7on FTI 2.63 Normal 1.30-4.50 [facility] Comment on above: Performed By: #### KIAN VALERIORO #### [facility] [address] [place] [address] Dr. Josie Sanchez T3U 35.0 % Normal 30.0-39.0 [facility] Comment on above: Performed By: #### KIAN VALERIORO #### [facility] [address] [place] [address] Dr. Josie Sanchez T4 [Mass/Vol] 7.50 ug/dL Normal 4.80-13.90 [facility] Comment on above: Performed By: #### KIAN VALERIORO #### [facility] [address] [place] [address] Dr. Josie Sanchez GLYCOHEMOGLOBIN A1Con 2022 ADA RECOMMENDATION SEE BELOW Normal [facility] Comment on above: Result Comment: ADA RECOMMENDED LIMIT 4.0 - 6.0 ADA THERAPEUTIC TARGET < 7.0 ACTION SUGGESTED > 7.0 Performed By: #### KIAN VALERIORO #### [facility] [address] [place] [address] Dr. Josie Sanchez Glucose [Mass/Vol] 111 mg/dL Normal [facility] Comment on above: Performed By: #### KIAN VALERIORO #### [facility] [address] [address] [address] Josie Sanchez HbA1c (Bld) [Mass fraction] 5.5 % Normal 4.5-6.2 [facility] Comment on above: Performed By: #### E RILEY MEANS #### [facility] [address] [address] [address] Josie Sanchez IRONon 08-12-2022 Iron [Mass/Vol] 40.0 ug/dL Critically low 50.0-170.0 [place] Comment on above: Performed By: #### P REGQNT #### [facility] [address] [address] [address] Josie Sanchez LIPID PROFILEon 08-12-2022 CHOL-HDL RATIO NORM SEE BELOW Normal [place] Comment on above: Result Comment: 3.3 - 4.4 LOW RISK 4.4 - 7.1 AVERAGE RISK 7.1 - 11.0 MODERATE RISK >11.0 HIGH RISK Performed By: #### P REGQNT #### [facility] [address] [place] [address] Dr. Josie Sanchez Cholesterol [Mass/Vol] 183 mg/dL Normal <=200 [facility] Comment on above: Performed By: #### P REGQNT #### [facility] [address] [place] [address] Dr. Josie Sanchez Cholesterol in HDL [Mass/Vol] 40 mg/dL Normal 40-60 [facility] Comment on above: Performed By: #### P REGQNT #### [facility] [address] [address] [address] Josie Sanchez Cholesterol in LDL [Mass/Vol] 131.0 mg/dL Normal [facility] Comment on above: Performed By: #### P REGQNT #### [facility] [address] [address] [address] Josie Sanchez Cholesterol.total/Choleste rol in HDL [Mass ratio] 4.6 {ratio} Normal [facility] Comment on above: Performed By: #### P REGQNT #### [facility] [address] [place] [address] Dr. Josie Sanchez HDL NORMAL > or = 60 mg/dl - LOW CARDIOVASCULAR RISK <40 mg/dl - HIGH CARDIOVASCULAR RISK Normal [facility] Comment on above: Performed By: #### P REGQNT #### [facility] [address] [address] [address] Josie Sanchez LDL CALC NORMAL SEE BELOW Normal [facility] Comment on above: Result Comment: <100 mg/dl OPTIMAL 100 - 129 mg/dl NEAR OR ABOVE OPTIMAL 130 - 159 mg/dl BORDERLINE HIGH 160 - 189 mg/dl HIGH >190 mg/dl VERY HIGH Performed By: #### P REGQNT #### [facility] [address] [address] [address] Josie Sanchez Triglyceride [Mass/Vol] 60 mg/dL Normal <=150 T [facility] Comment on above: Performed By: #### P REGQNT #### [facility] [address] [place] [address] Dr. Josie Sanchez VLDL CALC 12.0 mg/dL Normal [facility] Comment on above: Performed By: #### P REGQNT #### [facility] [address] [place] [address] Dr. Josie Sanchez PROF 14(COMP METB)on 023 Albumin [Mass/Vol] 3.7 g/dL Normal 3.4-5.0 [facility] Comment on above: Performed By: #### RILEY VALERIO #### [facility] [address] [place] [address] Dr. Josie Sanchez Albumin/Globulin [Mass ratio] 0.9 {ratio} Normal [facility] Comment on above: Performed By: #### KIAN VALERIORO #### [facility] [address] [place] [address] Dr. Josie Sanchez ALP [Catalytic activity/Vol] 131 U/L Critically high 46-116 [facility] Comment on above: Performed By: #### KIAN VALERIORO #### [facility] [address] [address] [address] Josie Sanchez ALT [Catalytic activity/Vol] 23 U/L Normal 14-59 [facility] Comment on above: Performed By: #### KIAN VALERIORO #### [facility] [address] [place] [address] Dr. Josie Sanchez Anion gap [Moles/Vol] 10.5 mmol/L Normal [facility] Comment on above: Performed By: #### KIAN VALERIORO #### [facility] [address] [place] [address] Dr. Josie Sanchez AST [Catalytic activity/Vol] 18 U/L Normal 15-37 [facility] Comment on above: Performed By: #### KIAN VALERIORO #### [facility] [address] [place] [address] Dr. Josie Sanchez Bilirubin [Mass/Vol] 0.7 mg/dL Normal 0.2-1.0 [facility] Comment on above: Performed By: #### KIAN VALERIORO #### [facility] [address] [place] [address] Dr. Josie Sanchez Calcium [Mass/Vol] 8.7 mg/dL Normal 8.5-10.1 [facility] Comment on above: Performed By: #### KIAN VALERIORO #### [facility] [address] [place] [address] Dr. Josie Sanchez Chloride [Moles/Vol] 103 mmol/L Normal 98-107 [facility] Comment on above: Performed By: #### KIAN VALERIORO #### [facility] [address] [place] [address] Dr. Josie Sanchez CO2 [Moles/Vol] 30.1 mmol/L Normal 21.0-32.0 [facility] Comment on above: Performed By: #### KIAN VALERIORO #### [facility] [address] [place] [address] Dr. Josie Sanchez Creatinine [Mass/Vol] 0.66 mg/dL Normal 0.55-1.02 [facility] Comment on above: Performed By: #### KIAN VALERIORO #### [facility] [address] [place] [address] Dr. Josie Sanchez EGFR-AF MONGOLIAN >60 Normal >=60 [facility] Comment on above: Performed By: #### RILEY VALERIO #### [facility] [address] [place] [address] Dr. Josie Sanchez EGFR-NON AF MONGOLIAN >60 Normal >=60 [facility] Comment on above: Performed By: #### RILEY VALERIO #### [facility] [address] [place] [address] Dr. Josie Sanchez Globulin (S) [Mass/Vol] 4.3 g/dL Normal T [facility] Comment on above: Performed By: #### RILEY VALERIO #### [facility] [address] [place] [address] Dr. Josie Sanchez Glucose [Mass/Vol] 90 mg/dL Normal 74-106 [facility] Comment on above: Performed By: #### RILEY VALERIO #### [facility] [address] [place] [address] Dr. Josie Sanchez Potassium [Moles/Vol] 3.6 mmol/L Normal 3.5-5.1 [facility] Comment on above: Performed By: #### RILEY VALERIO #### [facility] [address] [place] [address] Dr. Josie Sanchez Protein [Mass/Vol] 8.0 g/dL Normal 6.4-8.2 [facility] Comment on above: Performed By: #### RILEY VALERIO #### [facility] [address] [place] [address] Dr. Josie Sanchez Sodium [Moles/Vol] 140 mmol/L Normal 136-145 [facility] Comment on above: Performed By: #### RILEY VALERIO #### [facility] [address] [place] [address] Dr. Josie Sanchez Urea nitrogen [Mass/Vol] 12.0 mg/dL Normal 7.0-18.0 [facility] Comment on above: Performed By: #### RILEY VALERIO #### [facility] [address] [place] [address] Dr. Josie Sanchez Urea nitrogen/Creatinine [Mass ratio] 18.2 mg/mg Normal [facility] Comment on above: Performed By: #### RILEY VALERIO #### [facility] [address] [place] [address] Dr. Josie Sanchez TSHon 08-12-2022 TSH 3.070 uIU/mL Normal 0.358-3.740 [facility] Comment on above: Performed By: #### P REGQNT #### [facility] [address] [place] [address] Dr. Josie Sanchez PREG QUANT HCGon 06-22-2022 HCG QUANT 1 mIU/mL Normal [facility] Comment on above: Performed By: #### KIAN VALERIORO #### [facility] [address] [place] [address] Dr. Josie Sanchez HCG RANGE SEE BELOW Normal [facility] Comment on above: Result Comment: 5-50 0.2-1 WEEK 50-500 1-2 WEEKS 100-5,000 2-3 WEEKS 500-10,000 3-4 WEEKS 1,000-50,000 4-5 WEEKS 10,000-100,000 5-6 WEEKS 15,000-200,000 6-8 WEEKS 10,000-100,000 2-3 MONTHS Performed By: #### RILEY VALERIO #### [facility] [address] [place] [address] Dr. Josie Sanchez PREG QUANT HCGon 05-20-2022 HCG QUANT 6 mIU/mL Normal [facility] Comment on above: Performed By: #### P REGQNT #### [facility] [address] [place] [address] Dr. Josie Sanchez HCG RANGE SEE BELOW Normal [facility] Comment on above: Result Comment: 5-50 0.2-1 WEEK 50-500 1-2 WEEKS 100-5,000 2-3 WEEKS 500-10,000 3-4 WEEKS 1,000-50,000 4-5 WEEKS 10,000-100,000 5-6 WEEKS 15,000-200,000 6-8 WEEKS 10,000-100,000 2-3 MONTHS Performed By: #### P REGQNT #### [facility] [address] [place] [address] Dr. Josie Sanchez PREG QUANT HCGon 05-14-2022 HCG QUANT 26 mIU/mL Normal [facility] Comment on above: Performed By: #### P REGQNT #### [facility] [address] [place] [address] Dr. Josie Sanchez HCG RANGE SEE BELOW Normal [facility] Comment on above: Result Comment: 5-50 0.2-1 WEEK 50-500 1-2 WEEKS 100-5,000 2-3 WEEKS 500-10,000 3-4 WEEKS 1,000-50,000 4-5 WEEKS 10,000-100,000 5-6 WEEKS 15,000-200,000 6-8 WEEKS 10,000-100,000 2-3 MONTHS Performed By: #### P REGQNT #### [facility] [address] [place] [address] Dr. Josie Sanchez CBC AUTO DIFFon 05-08-2022 BASO # 0.0 103/ul Normal 0.0-0.1 [facility] Comment on above: Performed By: #### RILEY VALERIO #### [facility] [address] [place] [address] Dr. Josie Sanchez Basophils/100 WBC (Bld) 0.2 % Normal 0.2-2.0 [facility] Comment on above: Performed By: #### RILEY VALERIO #### [facility] [address] [place] [address] Dr. Josie Sanchez EO # 0.0 103/ul Normal 0.0-0.7 [facility] Comment on above: Performed By: #### RILEY VALERIO #### [facility] [address] [place] [address] Dr. Josie Sanchez Eosinophils/100 WBC (Bld) 0.5 % Critically low 0.9-7. 0 [facility] Comment on above: Performed By: #### KIAN VALERIORO #### [facility] [address] [place] [address] Dr. Josie Sanchez Erythrocyte distribution width (RBC) [Ratio] 12.8 % Normal 11.0-15.0 [facility] Comment on above: Performed By: #### Clyde MEANS UMICRO #### [facility] [address] [place] [address] Dr. Josie Sanchez Hematocrit (Bld) [Volume fraction] 41.0 % Normal 36.0-48.0 [facility] Comment on above: Performed By: #### Clyde MEANS UMICRO #### [facility] [address] [place] [address] Dr. Josie Sanchez Hemoglobin (Bld) [Mass/Vol] 13.4 g/dL Normal 12.0-16.0 [facility] Comment on above: Performed By: #### KIAN VALERIORO #### [facility] [address] [place] [address] Dr. Josie Sanchez IG # 0.02 10e3/ul Normal 0.00-0.03 [facility] Comment on above: Performed By: #### ROBERT VALERIOICRO #### [facility] [address] [place] [address] Dr. Josie Sanchez IG % 0.3 % Normal 0.0-0.5 [facility] Comment on above: Performed By: #### KIAN VALERIORO #### [facility] [address] [place] [address] Dr. Josie Sanchez LYMPH # 1.6 103/ul Normal 1.2-3.8 [facility] Comment on above: Performed By: #### Clyde MEANS UMICRO #### [facility] [address] [place] [address] Dr. Josie Sanchez Lymphocytes/100 WBC (Bld) 27.1 % Normal 20.5-60.0 [facility] Comment on above: Performed By: #### Clyde MEANS UMICRO #### [facility] [address] [place] [address] Dr. Josie Sanchez MANUAL DIFF REQ NO Normal [facility] Comment on above: Performed By: #### ROBERT VALERIOICRO #### [facility] [address] [place] [address] Dr. Josie Sanchez MCH (RBC) [Entitic mass] 29.3 pg Normal 26.7-34.0 [facility] Comment on above: Performed By: #### Clyde MEANS UMICRO #### [facility] [address] [place] [address] Dr. Josie aSnchez MCHC (RBC) [Mass/Vol] 32.7 g/dL Normal 29.9-35.2 [facility] Comment on above: Performed By: #### ROBERT VALERIOICRO #### [facility] [address] [place] [address] Dr. Josie Sanchez MCV (RBC) [Entitic vol] 89.5 fL Normal 81.0-99.0 [facility] Comment on above: Performed By: #### ROBERT VALERIOICRO #### [facility] [address] [place] [address] Dr. Josie Sanchez MONO # 0.5 103/ul Normal 0.3-0.8 [facility] Comment on above: Performed By: #### ROBERT VALERIOICRO #### [facility] [address] [place] [address] Dr. Josie Sanchez Monocytes/100 WBC (Bld) 8.6 % Normal 1.7-12.0 [facility] Comment on above: Performed By: #### Clyde MEANS UMICRO #### [facility] [address] [place] [address] Dr. Josie Sanchez NEUT # 3.7 103/ul Normal 1.4-6.5 [facility] Comment on above: Performed By: #### Clyde MEANS UMICRO #### [facility] [address] [place] [address] Dr. Josie Sanchez Neutrophils/100 WBC (Bld) 63.3 % Normal 43.0-75.0 [facility] Comment on above: Performed By: #### ROBERT VALERIOICRO #### [facility] [address] [address] [address] Josie Sanchez Platelet mean volume (Bld) [Entitic vol] 9.8 fL Normal 9.5-13.5 [facility] Comment on above: Performed By: #### Clyde MEANS, UMICRO #### [facility] [address] [address] [address] Josie Sanchez PLT 238 103/ul Normal 150-450 [facility] Comment on above: Performed By: #### Clyde MEANS, ICRO #### [facility] [address] [place] [address] Dr. Josie Sanchez RBC 4.58 106/ul Normal 4.20-5.40 [facility] Comment on above: Performed By: #### Clyde MEANS ICRO #### [facility] [address] [place] [address] Dr. Josie Sanchez WBC 5.8 103/ul Normal 4.0-11.0 [facility] Comment on above: Performed By: #### Clyde MEANS ICRO #### [facility] [address] [place] [address] Dr. Josie Sanchez PREG QUANT HCGon 05-08-2022 HCG QUANT 2335 mIU/mL Normal [facility] Comment on above: Performed By: #### P REGQNT #### [facility] [address] [place] [address] Dr. Josie Sanchez HCG RANGE SEE BELOW Normal [facility] Comment on above: Result Comment: 5-50 0.2-1 WEEK 50-500 1-2 WEEKS 100-5,000 2-3 WEEKS 500-10,000 3-4 WEEKS 1,000-50,000 4-5 WEEKS 10,000-100,000 5-6 WEEKS 15,000-200,000 6-8 WEEKS 10,000-100,000 2-3 MONTHS Performed By: #### P REGQNT #### [facility] [address] [place] [address] Dr. Josie Sanchez CBC AUTO DIFFon 05-07-2022 BASO # 0.0 103/ul Normal 0.0-0.1 [facility] Comment on above: Performed By: #### RILEY VALERIO #### [facility] [address] [place] [address] Dr. Josie Sanchez Basophils/100 WBC (Bld) 0.2 % Normal 0.2-2.0 [facility] Comment on above: Performed By: #### RILEY VALERIO #### [facility] [address] [place] [address] Dr. Josie Sanchez EO # 0.0 103/ul Normal 0.0-0.7 [facility] Comment on above: Performed By: #### RILEY VALERIO #### [facility] [address] [place] [address] Dr. Josie Sanchez Eosinophils/100 WBC (Bld) 0.3 % Critically low 0.9-7. 0 [facility] Comment on above: Performed By: #### RILEY VALERIO #### [facility] [address] [place] [address] Dr. Josie Sanchez Erythrocyte distribution width (RBC) [Ratio] 12.8 % Normal 11.0-15.0 [facility] Comment on above: Performed By: #### RILEY VALERIO #### [facility] [address] [place] [address] Dr. Josie Sanchez Hematocrit (Bld) [Volume fraction] 41.2 % Normal 36.0-48.0 [facility] Comment on above: Performed By: #### KIAN VALERIORO #### [facility] [address] [place] [address] Dr. Josie Sanchez Hemoglobin (Bld) [Mass/Vol] 13.3 g/dL Normal 12.0-16.0 [facility] Comment on above: Performed By: #### KIAN VALERIORO #### [facility] [address] [place] [address] Dr. Josie Sanchez IG # 0.02 10e3/ul Normal 0.00-0.03 [facility] Comment on above: Performed By: #### E RUR, UMICRO #### [facility] [address] [place] [address] Dr. Josie Sanchez IG % 0.3 % Normal 0.0-0.5 [facility] Comment on above: Performed By: #### E RUR, UMICRO #### [facility] [address] [place] [address] Dr. Josie Sanchez LYMPH # 1.0 103/ul Critically low 1.2-3.8 [facility] Comment on above: Performed By: #### E RUR, UMICRO #### [facility] [address] [place] [address] Dr. Josie Sanchez Lymphocytes/100 WBC (Bld) 15.5 % Critically low 20.5-6 0.0 [facility] Comment on above: Performed By: #### E MIGUELANGEL, UMICRO #### [facility] [address] [place] [address] Dr. Josie Sanchez MANUAL DIFF REQ NO Normal [facility] Comment on above: Performed By: #### E MIGUELANGEL, UMICRO #### [facility] [address] [place] [address] Dr. Josie Sanchez MCH (RBC) [Entitic mass] 28.9 pg Normal 26.7-34.0 [facility] Comment on above: Performed By: #### E MIGUELANGEL, UMICRO #### [facility] [address] [place] [address] Dr. Josie Sanchez MCHC (RBC) [Mass/Vol] 32.3 g/dL Normal 29.9-35.2 [facility] Comment on above: Performed By: #### E RUR, UMICRO #### [facility] [address] [place] [address] Dr. Josie Sanchez MCV (RBC) [Entitic vol] 89.6 fL Normal 81.0-99.0 [facility] Comment on above: Performed By: #### E RUR, UMICRO #### [facility] [address] [place] [address] Dr. Josie Sanchez MONO # 0.4 103/ul Normal 0.3-0.8 [facility] Comment on above: Performed By: #### RILEY VALERIO #### [facility] [address] [place] [address] Dr. Josie Sanchez Monocytes/100 WBC (Bld) 6.2 % Normal 1.7-12.0 [facility] Comment on above: Performed By: #### RILEY VALERIO #### [facility] [address] [place] [address] Dr. Josei Sacnhez NEUT # 5.0 103/ul Normal 1.4-6.5 [facility] Comment on above: Performed By: #### RILEY VALERIO #### [facility] [address] [place] [address] Dr. Josie Sanchez Neutrophils/100 WBC (Bld) 77.5 % Critically high 43.0- 75.0 [facility] Comment on above: Performed By: #### RILEY VALERIO #### [facility] [address] [place] [address] Dr. Josie Sanchez Platelet mean volume (Bld) [Entitic vol] 10.2 fL Normal 9.5-13.5 [facility] Comment on above: Performed By: #### RILEY VALERIO #### [facility] [address] [place] [address] Dr. Josie Sanchez PLT 237 103/ul Normal 150-450 [facility] Comment on above: Performed By: #### KIAN VALERIORO #### [facility] [address] [place] [address] Dr. Josie Sanchez RBC 4.60 106/ul Normal 4.20-5.40 [facility] Comment on above: Performed By: #### RILEY VALERIO #### [facility] [address] [place] [address] Dr. Josie Sanchez WBC 6.5 103/ul Normal 4.0-11.0 [facility] Comment on above: Performed By: #### KIAN VALERIORO #### [facility] [address] [place], [place] [id number] Dr. Josie Sanchez [facility] SARS-CoV-2 (COVID-19) RNA ALEXA+probe Ql (Unsp spec) Not detected Normal NOT DETECTED [facility] Comment on above: Result Comment: This test is not yet approved or cleared by the [place] FDA. When there are no FDA-approved or cleared tests available, and other criteria are met, FDA can make tests available under an emergency access mechanism called an Emergency Use Authorization (EUA). The EUA for this test is supported by the [place] of Health and Human Service's (HHS's) declaration [...] SARS-CoV-2. Performed By: #### RILEY VALERIO #### [facility] [address] [place] [address] Dr. Josie Sanchez PREG QUANT HCGon 05-07-2022 HCG QUANT 2745 mIU/mL Normal [facility] Comment on above: Performed By: #### RILEY VALERIO #### [facility] [address] [place] [address] Dr. Josie Sanchez HCG RANGE SEE BELOW Normal [facility] Comment on above: Result Comment: 5-50 0.2-1 WEEK 50-500 1-2 WEEKS 100-5,000 2-3 WEEKS 500-10,000 3-4 WEEKS 1,000-50,000 4-5 WEEKS 10,000-100,000 5-6 WEEKS 15,000-200,000 6-8 WEEKS 10,000-100,000 2-3 MONTHS Performed By: #### RILEY VALERIO #### [facility] [address] [place] [address] Dr. Josie Sanchez US PREG TVon 05-05-2022 [...] PEREZ DURBIN Date: 2022-05-05 14:42 Normal [facility] ER URINE PROFILEon 2 Bilirubin Ql (U) Negative Normal NEGATIVE [facility] Comment on above: Performed By: #### RILEY VALERIO #### [facility] [address] [place] [address] Dr. Josie Sanchez Clarity (U) CLEAR Normal CLEAR [facility] Comment on above: Performed By: #### RILEY VALERIO #### [facility] [address] [place] [address] Dr. Josie Sanchez Color (U) YELLOW Normal YELLOW [facility] Comment on above: Performed By: #### KIAN VALERIORO #### [facility] [address] [place] [address] Dr. Josie WU A micrscopic examination will be performed if indicated. Normal [facility] Comment on above: Performed By: #### RILEY VALERIO #### [facility] [address] [place] [address] Dr. Josie Sanchez Glucose Ql (U) Negative Normal NEGATIVE [facility] Comment on above: Performed By: #### KIAN VALERIORO #### [facility] [address] [place] [address] Dr. Josie Sanchez Hemoglobin Ql (U) SMALL Abnormal NEGATIVE [facility] Comment on above: Performed By: #### Clyde MEANS UMICRO #### [facility] [address] [place] [address] Dr. Josie Sanchez Ketones Ql (U) 15 mg/dl Abnormal NEGATIVE [facility] Comment on above: Performed By: #### Clyde MEANS UMICRO #### [facility] [address] [place] [address] Dr. Josie Sanchez LEUKOCYTES Negative Normal NEGATIVE [facility] Comment on above: Performed By: #### Clyde MEANS UMICRO #### [facility] [address] [place] [address] Dr. Josie Sanchez Nitrite Ql (U) Negative Normal NEGATIVE [facility] Comment on above: Performed By: #### KIAN VALERIORO #### [facility] [address] [place] [address] Dr. Josie Sanchez pH (U) 6.0 [pH] Normal 5-9 [facility] Comment on above: Performed By: #### KIAN VALERIORO #### [facility] [address] [place] [address] Dr. Josie Sanchez SPEC GRAVITY 1.020 Normal 1.005-<=1.02 5 [facility] Comment on above: Performed By: #### KIAN VALERIORO #### [facility] [address] [place] [address] Dr. Josie Sanchez UA PROTEIN Negative Normal NEGATIVE/ TRACE [facility] Comment on above: Performed By: #### KIAN VALERIORO #### [facility] [address] [place] [address] Dr. Josie Sanchez UR MICRO IND INDICATED Normal [facility] Comment on above: Performed By: #### KIAN VALERIORO #### [facility] [address] [place] [address] Dr. Josie Sanchez Urobilinogen Qn (U) 0.2 {Fabricio'U}/dL Normal 0.2 - 1. 0 [facility] Comment on above: Performed By: #### KIAN VALERIORO #### [facility] [address] [place] [address] Dr. Josie Sanchez URINE MICROSCOPIC ONLYon BACTERIA NONE SEEN Normal NONE SEEN [facility] Comment on above: Performed By: #### Clyde MEANS UMICRO #### [facility] [address] [place] [address] Dr. Josie Sanchez Bacteria identified Cx Nom (U) NOT INDICATED Normal [facility] Comment on above: Performed By: #### Clyde MEANS UMICRO #### [facility] [address] [place] [address] Dr. Josie Sanchez CAST NONE SEEN Normal NONE SEEN [facility] Comment on above: Performed By: #### Clyde MEANS UMGEORGIARO #### [facility] [address] [place] [address] Dr. Josie Sanchez Crystals LM Nom (Urine sed) NONE SEEN Normal NONE SEEN [facility] Comment on above: Performed By: #### Clyde MEANS UMICRO #### [facility] [address] [place] [address] Dr. Josie Sanchez Epithelial cells LM Ql (Urine sed) NONE SEEN Normal NONE SEEN /RARE [facility] Comment on above: Performed By: #### Clyde MEANS UMGEORGIARO #### [facility] [address] [place] [address] Dr. Josie Sanchez MUCOUS MODERATE Abnormal NONE SEEN [facility] Comment on above: Performed By: #### Clyde MEANS UMICRO #### [facility] [address] [place] [address] Dr. Josie Sanchez RBC 0-2 Normal 0-2 [facility] Comment on above: Performed By: #### Clyde MEANS UMICRO #### [facility] [address] [place] [address] Dr. Josie Sanchez WBC NONE SEEN Normal NONE SEEN [facility] Comment on above: Performed By: #### RILEY VALERIO #### [facility] [address] [place] [address] Dr. Josie Sanchez PREG QUANT HCGon 04-20-2022 HCG QUANT 20359 mIU/mL Normal [facility] Comment on above: Performed By: #### KIAN VALERIORO #### [facility] [address] [place] [address] Dr. Josie Sanchez HCG RANGE SEE BELOW Normal [facility] Comment on above: Result Comment: 5-50 0.2-1 WEEK 50-500 1-2 WEEKS 100-5,000 2-3 WEEKS 500-10,000 3-4 WEEKS 1,000-50,000 4-5 WEEKS 10,000-100,000 5-6 WEEKS 15,000-200,000 6-8 WEEKS 10,000-100,000 2-3 MONTHS Performed By: #### Clyde MEANS GEORGIARO #### [facility] [address] [place] [address] Dr. Josie Sanchez HCG-BETA SUBUNIT QUANTon hCG,Beta Subunit,Qnt,Serum <1 Normal [facility] Comment on above: Result Comment: Fema le (Non-) 0 - 5 (Postmenopausal) 0 - 8 . Female () Weeks of Gestation 3 6 - 71 4 10 - 750 5 217 - 7138 6 158 - 60448 7 8105 -[phone] 8 70082 -222159 9 82448 -570535 10 18905 -563428 12 18570 -470684 14 71173 - 30585 15 93879 - 29003 16 5075 - 81416 17 9412 - 24016 18 0070 - 72216 Regina ECLIA methodology Performed By: #### KIAN VALERIORO #### [facility] [address] [place] [address] Dr. Josie Sanchez CBC AUTO DIFFon 02-18-2022 BASO # 0.0 103/ul Normal 0.0-0.1 [facility] Comment on above: Performed By: #### C BC #### [facility] [address] [place] [address] Dr. Josie Sanchez Basophils/100 WBC (Bld) 0.2 % Normal 0.2-2.0 [facility] Comment on above: Performed By: #### C BC #### [facility] [address] [place] [address] Dr. Josie Sanchez EO # 0.1 103/ul Normal 0.0-0.7 [facility] Comment on above: Performed By: #### C BC #### [facility] [address] [place] [address] Dr. Josie Sanchez Eosinophils/100 WBC (Bld) 0.8 % Critically low 0.9-7. 0 [facility] Comment on above: Performed By: #### C BC #### [facility] [address] [place] [address] Dr. Josie Sanchez Erythrocyte distribution width (RBC) [Ratio] 12.5 % Normal 11.0-15.0 [facility] Comment on above: Performed By: #### C BC #### [facility] [address] [place] [address] Dr. Josie Sanchez Hematocrit (Bld) [Volume fraction] 39.5 % Normal 36.0-48.0 [facility] Comment on above: Performed By: #### C BC #### [facility] [address] [place] [address] Dr. Josie Sanchez Hemoglobin (Bld) [Mass/Vol] 13.0 g/dL Normal 12.0-16.0 [facility] Comment on above: Performed By: #### C BC #### [facility] [address] [place] [address] Dr. Josie Sanchez IG # 0.02 10e3/ul Normal 0.00-0.03 [facility] Comment on above: Performed By: #### C BC #### [facility] [address] [place] [address] Dr. Josie Sanchez IG % 0.3 % Normal 0.0-0.5 [facility] Comment on above: Performed By: #### C BC #### [facility] [address] [place] [address] Dr. Josie Sanchez LYMPH # 1.5 103/ul Normal 1.2-3.8 [facility] Comment on above: Performed By: #### C BC #### [facility] [address] [place] [address] Dr. Josie Sanchez Lymphocytes/100 WBC (Bld) 22.9 % Normal 20.5-60.0 [facility] Comment on above: Performed By: #### C BC #### [facility] [address] [place] [address] Dr. Josie Sanchez MANUAL DIFF REQ NO Normal [facility] Comment on above: Performed By: #### C BC #### [facility] [address] [place] [address] Dr. Josie Sanchez MCH (RBC) [Entitic mass] 30.3 pg Normal 26.7-34.0 [facility] Comment on above: Performed By: #### C BC #### [facility] [address] [place] [address] Dr. Josie Sanchez MCHC (RBC) [Mass/Vol] 32.9 g/dL Normal 29.9-35.2 [facility] Comment on above: Performed By: #### C BC #### [facility] [address] [place] [address] Dr. Josie Sanchez MCV (RBC) [Entitic vol] 92.1 fL Normal 81.0-99.0 [facility] Comment on above: Performed By: #### C BC #### [facility] [address] [place] [address] Dr. Josie Sanchez MONO # 0.4 103/ul Normal 0.3-0.8 [facility] Comment on above: Performed By: #### C BC #### [facility] [address] [place] [address] Dr. Josie Sanchez Monocytes/100 WBC (Bld) 5.7 % Normal 1.7-12.0 [facility] Comment on above: Performed By: #### C BC #### [facility] [address] [place] [address] Dr. Josie Sanchez NEUT # 4.6 103/ul Normal 1.4-6.5 [facility] Comment on above: Performed By: #### C BC #### [facility] [address] [place] [address] Dr. Josie Sanchez Neutrophils/100 WBC (Bld) 70.1 % Normal 43.0-75.0 [facility] Comment on above: Performed By: #### C BC #### [facility] [address] [place] [address] Dr. Josie Sanchez Platelet mean volume (Bld) [Entitic vol] 10.0 fL Normal 9.5-13.5 [facility] Comment on above: Performed By: #### C BC #### [facility] [address] [place] [address] Dr. Josie Sanchez PLT 242 103/ul Normal 150-450 [facility] Comment on above: Performed By: #### C BC #### [facility] [address] [place] [address] Dr. Josie Sanchez RBC 4.29 106/ul Normal 4.20-5.40 [facility] Comment on above: Performed By: #### C BC #### [facility] [address] [place] [address] Dr. Josie Sanchez WBC 6.5 103/ul Normal 4.0-11.0 [facility] Comment on above: Performed By: #### C BC #### [facility] [address] [place] [address] Dr. Josie Sanchez LIPID PROFILEon 02-18-2022 CHOL-HDL RATIO NORM SEE BELOW Normal [place] Comment on above: Result Comment: 3.3 - 4.4 LOW RISK 4.4 - 7.1 AVERAGE RISK 7.1 - 11.0 MODERATE RISK >11.0 HIGH RISK Performed By: #### L IPID, TSH #### [facility] [address] [place] [address] Dr. Josie Sanchez Cholesterol [Mass/Vol] 182 mg/dL Normal <=200 Th [facility] Comment on above: Performed By: #### L IPID, TSH #### [facility] [address] [place] [address] Dr. Josie Sanchez Cholesterol in HDL [Mass/Vol] 40 mg/dL Normal 40-60 [facility] Comment on above: Performed By: #### L IPID, TSH #### [facility] [address] [address] [address] Josie Sanchez Cholesterol in LDL [Mass/Vol] 122.4 mg/dL Normal [facility] Comment on above: Performed By: #### L IPID, TSH #### [facility] [address] [address] [address] Josie Sanchez Cholesterol.total/Choleste rol in HDL [Mass ratio] 4.6 {ratio} Normal [facility] Comment on above: Performed By: #### L IPID, TSH #### [facility] [address] [place] [address] Dr. Josie Sanchez HDL NORMAL > or = 60 mg/dl - LOW CARDIOVASCULAR RISK <40 mg/dl - HIGH CARDIOVASCULAR RISK Normal [facility] Comment on above: Performed By: #### L IPID, TSH #### [facility] [address] [place] [address] Dr. Josie Sanchez LDL CALC NORMAL SEE BELOW Normal [facility] Comment on above: Result Comment: <100 mg/dl OPTIMAL 100 - 129 mg/dl NEAR OR ABOVE OPTIMAL 130 - 159 mg/dl BORDERLINE HIGH 160 - 189 mg/dl HIGH >190 mg/dl VERY HIGH Performed By: #### L IPID, TSH #### [facility] [address] [address] [address] Josie Sanchez Triglyceride [Mass/Vol] 98 mg/dL Normal <=150 T [facility] Comment on above: Performed By: #### L IPID, TSH #### [facility] [address] [address] [address] Josie Sanchez VLDL CALC 19.6 mg/dL Normal [facility] Comment on above: Performed By: #### L IPID, TSH #### [facility] [address] [place] [address] Dr. Josie Sanchez PROTIMEon 02-18-2022 INR Coag (PPP) [Relative time] 1.10 {INR} Normal [facility] Comment on above: Performed By: #### P REGQNT #### [facility] [address] [place] [address] Dr. Josie Sanchez INR GUIDELINES SEE BELOW Normal [facility] Comment on above: Result Comment: PAULINA RED INR: 2.0 - 3.0 CONDITIONS NOT LISTED BELOW 2.5 - 3.5 FOR PROSTHETIC HEART VALVE REPLACEMENT 2.5 - 3.5 RECURRENT THROMBOSIS Performed By: #### P REGQNT #### [facility] [address] [place] [address] Dr. Josie Sanchez PT Coag (PPP) [Time] 11.8 s Critically high 9.0-11.6 [facility] Comment on above: Performed By: #### P REGQNT #### [facility] [address] [place] [address] Dr. Josie Sanchez PTTon 02-18-2022 aPTT Coag (Bld) [Time] 29.8 s Normal 22.3-36.2 [facility] Comment on above: Performed By: #### P REGQNT #### [facility] [address] [place] [address] Dr. Josie Sanchez TSHon 02-18-2022 TSH 3.410 uIU/mL Normal 0.358-3.740 [facility] Comment on above: Performed By: #### L IPID, TSH #### [facility] [address] [place] [address] Dr. Josie Sanchez US PELVIS AND TRANSVAGon [...] by: PEREZ DURBIN Date: 2022-02-18 18:56 Normal [facility] Nursing Note - Woundon 08-15 Nursing Note - Wound [id number] 27621#3.00CD:127 Normal [facility] Coding Summary.on 08-08-2020 Coding Summary. CODING DATE: 08/08/2020 FINAL [facility] STATUS: Home (Routine DC) PAYOR: [...] Jeannie Nur Date Saved: 08/08/2020 10:31 am [facility] Formson 08-08-2020 Forms [id number] 0459#1.00CD:127 Normal [facility] Home Health Recordson 2019 Home Health Records [id number] 3EFD#1.00CD:127 [facility] Ambulatory Clinical Summaryo n 07-26-2020 Ambulatory Clinical Summary {[id number] -[id number]}CD:[id number] [facility] Home Health Recordson 2019 Home Health Records [id number] [id number]#1.00CD:127 [facility] Progress Note - Woundon 07-09 Progress Note - Wound [id number] 67216#2.00CD:127 [facility] Consent for Treatmenton 07-09 Consent for Treatment [id number] AFAA#1.00CD:127 [facility] Multi-Wound Charton 07-25-20 20 Multi-Wound Chart [id number] 32267#1.00CD:127 [facility] Nursing Assessment - Woundon 07-25-2020 Nursing Assessment - Wound [id number] 7.202 [id number] 16524#1.00CD:127 [facility] Physician Orderon 07-25-2020 Physician Order [id number] 11687#1.00CD:127 [facility] Home Health Recordson 2019 Home Health Records [id number] 3741#1.00CD:127 [facility] Home Health Recordson 2019 Home Health Records [id number] 3554#1.00CD:127 [facility] Coding Summary.on 07-12-2020 Coding Summary. CODING DATE: 07/12/2020 FINAL [facility] STATUS: Home ([facility]) PAYOR: Medicaid EA DESCRIPTION [id number] OTHER COMPLICATIONS [...] Bledsoe CphT Date Saved: 07/12/2020 03:05 pm [facility] Coding Summary. CODING DATE: 07/12/2020 FINAL [facility] STATUS: Home (Routine DC) PAYOR: [...] Bledsoe CphT Date Saved: 07/12/2020 03:03 pm [facility] Multi-Wound Charton 07-12-20 20 Multi-Wound Chart [id number] 75852#1.00CD:127 [facility] Nursing Assessment - Woundon 07-12-2020 Nursing Assessment - Wound [id number] 7. [id number] [id number]#1.00CD:127 [facility] Nursing Note - Woundon 07-12 Nursing Note - Wound [id number] 67626#1.00CD:127 [facility] Consent for Procedure/Surger yon 07-11-2020 Consent for Procedure/Surgery [id number]#1.00CD:127 [facility] Consent for Treatmenton Consent for Treatment [id number] B36A#1.00CD:127 [facility] Home Health Recordson 2019 Home Health Records [id number] [id number]#1.00CD:127 [facility] Home Health Records [id number]#1.00CD:127 [facility] Physician Orderon 07-11-2020 Physician Order [id number]#1.00CD:127 [facility] Progress Note - Woundon Progress Note - Wound [id number] 33704#1.00CD:127 [facility] Nursing Note - Woundon 07-02 Nursing Note - Wound [id number] 59011#3.00CD:127 [facility] Consent for Procedure/Surger yon 06-28-2020 Consent for Procedure/Surgery [id number] 0200#1.00CD:127 [facility] Consent to Photographon 06-10 Consent to Photograph [id number]. [id number] 0326#1.00CD:127 [facility] HIPAA Privacy Documentson HIPAA Privacy Documents [id number] 0158#1.00CD:127 [facility] Nursing Note - Woundon 06-28 Nursing Note - Wound [id number]. [id number] 0289#1.00CD:127 [facility] Nursing Note - Wound [id number]. [id number] 0217#1.00CD:127 [facility] Consent for Treatmenton 06-09 Consent for Treatment [id number] EEDA#1.00CD:127 [facility] Multi-Wound Charton 06-27-20 20 Multi-Wound Chart [id number] 78620#1.00CD:127 [facility] Nursing Assessment - Woundon 06-27-2020 Nursing Assessment - Wound [id number] [id number] 86545#1.00CD:127 [facility] Physician Orderon 06-27-2020 Physician Order [id number]#2.00CD:127 [facility] Progress Note - Woundon 06-09 Progress Note - Wound [id number] 63474#1.00CD:127 [facility] HIPAA Privacy Documentson HIPAA Privacy Documents [id number] 02 [id number]#1.00CD:127 [facility] Outside Records Officeon Outside Records Office [id number] 2 [id number] [id number]#1.00CD:127 [facility] Vital Signs Date Time Vital Sign Value Performing Clinician Facility 01-22-2025 11:190400 Body mass index (BMI) [Ratio] 30.95 kg/m2 Norbert Silvia DO Work Phone: [facility] 01-22-2025 11:040 Body weight 71.89 kg Norbert Silvia DO Work Phone: [facility] 01-22-2025 11:19040 Diastolic blood pressure 74 mm[Hg] Norbert Silvia DO Work Phone: [facility] 01-22-2025 11:19040 Systolic blood pressure 130 mm[Hg] Norbert Silvia DO Work Phone: [facility] 01-15-2025 10:040 Body mass index (BMI) [Ratio] 30.69 kg/m2 Onrbert Silvia DO Work Phone: [facility] 01-15-2025 10:040 Body weight 71.27 kg Norbert Silvia DO Work Phone: [facility] 01-15-2025 10:26-0400 Diastolic blood pressure 68 mm[Hg] Norbert Silvia DO Work Phone: [facility] 01-15-2025 10:26-0400 Systolic blood pressure 110 mm[Hg] Norbert Silvia DO Work Phone: [facility] 01-08-2025 10:41-0400 Body mass index (BMI) [Ratio] 31.01 kg/m2 Norbert Silvia DO Work Phone: [facility] 01-08-2025 10:41-0400 Body weight 72.03 kg Norbert Silvia DO Work Phone: [facility] 01-08-2025 10:41-0400 Diastolic blood pressure 68 mm[Hg] Norbert Silvia DO Work Phone: [facility] 01-08-2025 10:41-0400 Systolic blood pressure 112 mm[Hg] Norbert Silvia DO Work Phone: [facility] 12-26-2024 09:35-0400 Body mass index (BMI) [Ratio] 31.08 kg/m2 Norbert Silvia DO Work Phone: [facility] 12-26-2024 09:35-0400 Body weight 72.18 kg Norbert Silvia DO Work Phone: [facility] 12-26-2024 09:35-0400 Diastolic blood pressure 68 mm[Hg] Norbert Silvia DO Work Phone: [facility] 12-26-2024 09:35-0400 Systolic blood pressure 110 mm[Hg] Norbert Silvia DO Work Phone: [facility] 12-11-2024 08:39-0400 Body mass index (BMI) [Ratio] 31.93 kg/m2 Norbert Silvia DO Work Phone: [facility] 12-11-2024 08:39-0400 Body weight 74.16 kg Norbert Silvia DO Work Phone: [facility] 12-11-2024 08:39-0400 Diastolic blood pressure 80 mm[Hg] Norbert Silvia DO Work Phone: [facility] 12-11-2024 08:39-0400 Systolic blood pressure 110 mm[Hg] Norbert Silvia DO Work Phone: [facility] 11-27-2024 13:25-0400 Body mass index (BMI) [Ratio] 31.25 kg/m2 Norbert Silvia DO Work Phone: [facility] 11-27-2024 13:25-0400 Body weight 72.58 kg Norbert Silvia DO Work Phone: [facility] 11-27-2024 13:25-0400 Diastolic blood pressure 76 mm[Hg] Norbert Silvia DO Work Phone: [facility] 11-27-2024 13:25-0400 Systolic blood pressure 124 mm[Hg] Norbert Silvia DO Work Phone: [facility] 10-09-2024 10:01-0500 Body mass index (BMI) [Ratio] 31.52 kg/m2 Gen Kang MD Work Phone: [facility] 10-09-2024 10:01-0500 Body weight 73.21 kg Gen Kang MD Work Phone: [facility] 10-09-2024 10:01-0500 Diastolic blood pressure 83 mm[Hg] Gen Kang MD Work Phone: [facility] 10-09-2024 10:01-0500 Heart rate 89 /min Gen Kang MD Work Phone: [facility] 10-09-2024 10:01-0500 Systolic blood pressure 131 mm[Hg] Gen Kang MD Work Phone: [facility] 10-02-2024 14:30-0500 Body mass index (BMI) [Ratio] 31.52 kg/m2 Norbert Silvia DO Work Phone: [facility] 10-02-2024 14:30-0500 Body weight 73.21 kg Norebrt Silvia DO Work Phone: [facility] 10-02-2024 14:30-0500 Diastolic blood pressure 78 mm[Hg] Norbert Silvia DO Work Phone: [facility] 10-02-2024 14:30-0500 Systolic blood pressure 130 mm[Hg] Norbert Silvia DO Work Phone: [facility] 09-04-2024 13:50-0500 Body mass index (BMI) [Ratio] 30.86 kg/m2 Norbert Silvia DO Work Phone: [facility] 09-04-2024 13:50-0500 Body weight 71.67 kg Norbert Silvia DO Work Phone: [facility] 09-04-2024 13:50-0500 Diastolic blood pressure 78 mm[Hg] Norbert Silvia DO Work Phone: [facility] 09-04-2024 13:50-0500 Systolic blood pressure 122 mm[Hg] Norbert Silvia DO Work Phone: [facility] 07-28-2024 11:10-0500 Body mass index (BMI) [Ratio] 31.09 kg/m2 Nom Nurse [facility] 07-28-2024 11:10-0500 Body weight 72.21 kg Nom Nurse [facility] 07-28-2024 11:10-0500 Diastolic blood pressure 91 mm[Hg] [facility] Nurse [facility] 07-28-2024 11:10-0500 Systolic blood pressure 122 mm[Hg] [facility] Nurse [facility] 11-20-2022 15:05-0400 Body height 152.4 cm Gloria Hayden Other [employer] Other 11-20-2022 15:05-0400 Body mass index (BMI) [Ratio] 11.72 kg/m2 Gloria Hayden Other [employer] Other 11-20-2022 15:05-0400 Body temperature 97.7 [degF] Gloria Hayden Other [employer] Other 11-20-2022 15:05-0400 Body weight 27.22 kg Gloria Hayden Other [employer] Other 11-20-2022 15:05-0400 Respiratory rate 18 /min Gloria Hayden Other [employer] Other 11-20-2022 15:05-0400 SaO2% (BldA) [Mass fraction] 97 % Gloria Hayden Other [employer] Other Encounters Encounter Date Encounter Type Care Provider Facility Start: 01-22-2025 End: 01-22-2025 Bamboo flowsheet Norbert Silvia DO Work Phone: [facility] Start: 01-22-2025 End: 01-22-2025 Bamboo flowsheet Norbert Silvia DO Work Phone: [facility] Start: 01-22-2025 End: 01-22-2025 ambulatory NORBERT SILVIA Not Available Start: 01-22-2025 End: 01-22-2025 Office outpatient visit 15 minutes Norbert Silvia DO Work Phone: [facility] Comment on above: Vomiting affecting p regnancy ([facility]) (Primary Dx); 36 weeks gestation of ([facility]); Third trimester ([facility]) Start: 01-18-2025 End: 01-19-2025 Clinisync Result Encounter [...] 11-07-2024 End: 11-07-2024 ambulatory NORBERT R. SILVIA [facility] Start: 10-30-2024 End: 10-30-2024 ambulatory NORBERT SILVIA Not Available Start: 10-30-2024 End: 10-30-2024 Bamboo flowsheet Norbert Silvia DO Work Phone: [facility] Start: 10-30-2024 End: 10-30-2024 Bamboo flowsheet Norbert Silvia DO Work Phone: [facility] Start: 10-09-2024 End: 10-09-2024 Office consultation new/estab patient 60 min Gen Kang MD Work Phone: Maternal- Medicine at [facility] Comment on above: Multigravida of adva nced maternal age in second trimester (Primary Dx) Start: 10-09-2024 End: 10-09-2024 Orders Only Sydni Kennedy RN Maternal- Medic ine at [facility] Comment on above: Multigravida of adva nced maternal age in second trimester (Primary Dx); History of delivery affecting Start: 10-02-2024 End: 10-02-2024 ambulatory NORBERT SILVIA Not Available Start: 10-02-2024 End: 10-02-2024 Office outpatient visit 15 minutes Norbert Silvia DO Work Phone: [facility] Comment on above: 20 weeks [...] Work Phone: Maternal- Medicine at [facility] Start: 09-04-2024 End: 09-04-2024 Bamboo [...] Start: 07-31-2024 End: 07-31-2024 ambulatory Norbert Silvia Facility:[facility] Start: 07-31-2024 End: 07-31-2024 Clinisync Result [...] 11-20-2022 End: 11-20-2022 ambulatory Gloria Hayden Other [facility] Other Start: 11-20-2022 Office outpatient vi sit [...] laboratory examination DR NORBERT VEGA . 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 Norbert Silvia DO Work Phone: [...] Work Phone: Start: 07-28-2024 BOX TEST Norbert Jorge o DO Work Phone: Start: 07-28-2024 End: [...] AUTO DIFF Norbert Vega DO Work Phone: Start: 12-21-2022 Microscopic observat ion [Identifier] in Cervix by Cyto stain Norbert Vega DO Work Phone: H/O: section History of delivery affecting Sydni Kennedy RN Plan of Treatment Date Care Activity Detail Author Start: 12-22-2027 Screening for malign ant neoplasm of cervix [facility] Start: 10-09-2025 Adult BMI Screening Adult BMI Screen ing [facility] Start: 10-09-2025 Tobacco Screening Tobacco Screening [facility] Start: 10-09-2025 End: 10-09-2025 US MFM with or without consult US MFM with or without consult Imaging Routine Multigravida of advanced maternal age in second trimester History of delivery affecting Expected: 10/09/2025 (Approximate), Expires: 10/09/2025 [facility] Work Phone: Comment on above: Expected: 10/09/2025 (Approximate), Expires: 10/09/2025 Start: 04-09-2025 Influenza vaccination Influenz a Vaccine (Season Ended) [facility] Start: 01-22-2025 End: 01-22-2026 CULTURE, GROUP B STREP WITH SUSCEPTIBLITY CULTURE, GROUP B STREP WITH SUSCEPTIBLITY Lab Routine Third trimester ([facility]) Expected: 01/22/2025, Expires: 01/22/2026 [facility] Work Phone: Comment on above: Expected: 01/22/2025 , Expires: 01/22/2026 Start: 01-22-2025 End: 01-22-2025 Patient encounter procedure 01/22/2025 10:30 AM EDT Routine [facility] [address] [place] [address] Norbert Vega DO [address] [place] [address] [facility] Start: 01-15-2025 End: 01-15-2025 Patient encounter procedure 01/15/2025 10:00 AM EDT Routine [facility] [address] [place] [phone] Norbert Vega, DO [address] [place] [address] [facility] Start: 01-08-2025 End: 01-08-2025 Patient encounter procedure 01/08/2025 10:00 AM EDT Routine [facility] [address] [place] [address] Norbert Vega, DO [address] [place] [address] [facility] Start: 12-26-2024 End: 12-26-2024 Patient encounter procedure 12/26/2024 9:00 AM EDT Routine [facility] [address] [place] [address] Norbert Vega, DO [address] [place] [address] [facility] Start: 12-11-2024 End: 12-11-2024 Patient encounter procedure 12/11/2024 8:30 AM EDT Routine [facility] [address] [place] [phone] Norbert Vega, DO [address] [place] [address] [facility] Start: 12-11-2024 End: 12-11-2024 Professional / ancillary services management 12/11/2024 8:00 AM EDT Ancillary Procedure [facility] [address] [place] [phone] [facility] Start: 11-27-2024 End: 05-29-2025 [...] Visit [facility] [address] [place] [phone] Norbert Vega, DO [address] [place] [address] [facility] Start: 11-07-2024 End: 11-07-2024 Patient encounter procedure 11/07/2024 10:00 AM EDT Appointment [facility] - Ultrasound [address] [place] [address] [facility] - Ultrasound Start: 10-30-2024 End: 10-30-2024 Patient encounter procedure [facility] Comment on above: Anemia during pregna ncy in second trimester Start: 10-09-2024 End: 10-09-2024 Patient encounter procedure [facility] Start: 10-02-2024 End: 10-02-2024 Patient encounter procedure 10/02/2024 2:10 PM EST Routine [facility] [address] [place] [phone] Norbert Vega, DO [address] [place] [address] [facility] Start: 10-02-2024 End: 10-02-2025 CBC panel - Blood by Automated count CBC Lab Routine Diabetes mellitus screening Expected: 10/02/2024 (Approximate), Expires: 10/02/2025 [facility] Work Phone: Comment on above: Expected: 10/02/2024 (Approximate), Expires: 10/02/2025 Start: 10-02-2024 End: 10-02-2025 Measurement of glucose 1 hour after glucose challenge for glucose tolerance test Glucose tolerance, 1 hour Lab Routine Diabetes mellitus screening Expected: 10/02/2024 (Approximate), Expires: 10/02/2025 [facility] Comment on above: Expected: 10/02/2024 (Approximate), Expires: 10/02/2025 Start: 09-04-2024 End: 10-05-2024 Alpha fetoprotein, maternal Alpha fetoprotein, maternal Lab Routine Need for maternal serum alpha-protein (MSAFP) screening Expected: 09/04/2024 (Approximate), Expires: 10/05/2024 [facility] Work Phone: Comment on above: Expected: 09/04/2024 (Approximate), Expires: 10/05/2024 Start: 09-04-2024 End: 09-04-2024 Patient encounter procedure [facility] Comment on above: Arrived Start: 07-28-2024 End: 07-28-2025 ABO/Rh ABO/Rh Lab Routine Missed menses , unspecified gestational age Expected: 07/28/2024 (Approximate), Expires: 07/28/2025 [facility] Comment on above: Expected: 07/28/2024 (Approximate), Expires: 07/28/2025 Start: 07-28-2024 End: 07-28-2025 Blood type and Indirect antibody screen panel - Blood Type and screen Lab Routine Missed menses , unspecified gestational age Expected: 07/28/2024 (Approximate), Expires: 07/28/2025 [facility] Work Phone: Comment on above: Expected: 07/28/2024 (Approximate), Expires: 07/28/2025 Start: 07-28-2024 End: 07-28-2025 Drugs of abuse panel - Urine by Screen method Rapid drug screen, urine Lab Routine , unspecified gestational age Encounter for supervision of normal first in first trimester Expected: 07/28/2024 (Approximate), Expires: 07/28/2025 [facility] Comment on above: Expected: 07/28/2024 (Approximate), Expires: 07/28/2025 Start: 07-28-2024 End: 07-28-2025 US Pelvis transvaginal US OB transvaginal Imaging Routine Missed menses Expected: 07/28/2024 (Approximate), Expires: 07/28/2025 [facility] Comment on above: Expected: 07/28/2024 (Approximate), Expires: 07/28/2025 Start: 07-28-2024 End: 07-28-2024 ambulatory 07/28/2024 10:30 AM EST Initial [facility] [address] [place] [address] [facility] Start: 04-09-2024 Influenza vaccination Influenza Vacc ine [facility] Start: 2006 Screening for malign ant neoplasm of cervix Pap Smear [facility] Start: 2004 DTaP,Tdap and Td Vaccines (1 - Tdap) DTaP,Tdap and Td Vaccines (1 - Tdap) [facility] Start: 10-30-2003 Adult BMI Screening Adult BMI Screen ing [facility] Start: 1997 Depression Screening Depression Scre ening [facility] Start: 1997 Tobacco Screening Tobacco Screening [facility] Bacteria identified in Urine by Culture Urine culture Microbiology Routine Missed menses Ordered: 07/28/2024 [facility] Comment on above: Ordered: 07/28/2024 CBC W Auto Different ial panel - Blood CBC and differential Lab Routine Missed menses , unspecified gestational age Ordered: 07/28/2024 [facility] Comment on above: Ordered: 07/28/2024 CHLAMYDIA TRACHOMATI S (GENITO/STI) CHLAMYDIA TRACHOMATIS (GENITO/STI) Lab Routine , unspecified gestational age Ordered: 10/02/2024 [facility] Comment on above: Ordered: 10/02/2024 Hemoglobin A1c/Hemoglobin.total in Blood Hemoglobin A1c Lab Routine Missed menses , unspecified gestational age Ordered: 07/28/2024 [facility] Comment on above: Ordered: 07/28/2024 Hepatitis B virus surface Ag [Presence] in Serum or Plasma by Immunoassay Hepatitis B surface antigen Lab Routine Missed menses , unspecified gestational age Ordered: 07/28/2024 [facility] Comment on above: Ordered: 07/28/2024 Hepatitis C virus Ab [Presence] in Serum or Plasma by Immunoassay Hepatitis C antibody Lab Routine Missed menses , unspecified gestational age Ordered: 07/28/2024 [facility] Comment on above: Ordered: 07/28/2024 HIV-1/HIV-2 antigen/antibody combination immunoassay HIV-1 and HIV-2 antibodies Lab Routine Missed menses , unspecified gestational age Ordered: 07/28/2024 [facility] Comment on above: Ordered: 07/28/2024 Neisseria gonorrhoea e DNA [Presence] in Unspecified specimen by ALEXA with probe detection Neisseria gonorrhea DNA probe, direct Lab Routine , unspecified gestational age Ordered: 10/02/2024 [facility] Comment on above: Ordered: 10/02/2024 Reagin Ab [Presence] in Serum by RPR RPR Lab Routine Missed menses , unspecified gestational age Ordered: 07/28/2024 [facility] Comment on above: Ordered: 07/28/2024 Rubella antibody, IgG Rubella an tibody, IgG Lab Routine Missed menses , unspecified gestational age Ordered: 07/28/2024 [facility] Comment on above: Ordered: 07/28/2024 SURESWAB(R) ADVANCED VAGINITIS PLUS, TMA SURESWAB(R) ADVANCED VAGINITIS PLUS, TMA Pathology and Cytology Routine , unspecified gestational age Ordered: 10/02/2024 [facility] Comment on above: Ordered: 10/02/2024 Payers Date Payer Category Payer Medicaid [id number] 2022 Medicaid [id number] 2. [id number] 1985 Unknown [id number] 2.16.84 0.1.586538.3.579.2.593 1985 Unknown [id number] 2.16.84 0.1.074684.3.579.2.593 1985 Unknown [id number] 2.16.84 0.1.763442.3.579.2.593 1985 Unknown [id number] 2.16.84 0.1.129256.3.579.2.593 1985 Unknown [id number] 2.16.84 0.1.211472.3.579.2.593 1985 Unknown [id number] 2.16.84 0.1.276123.3.579.2.593 1985 Unknown [id number] 2.16.84 0.1.555728.3.579.2.593 1985 Unknown [id number] 2.16.84 0.1.029565.3.579.2.593 1985 Unknown [id number] 2.16.84 0.1.950527.3.579.2.593 1985 Unknown [id number] 2.16.84 0.1.032949.3.579.2.593 1985 Unknown [id number] 2.16.84 0.1.980556.3.579.2.593 1985 Unknown [id number] 2.16.84 0.1.826372.3.579.2.593 1985 Unknown [id number] 2.16.84 0.1.699465.3.579.2.593 1985 Unknown [id number] 2.16.84 0.1.276240.3.579.2.593 1985 Unknown [id number] 2.16.84 0.1.429906.3.579.2.593 1985 Unknown [id number] 2.16.84 0.1.072962.3.579.2.593 1985 Unknown [id number] 2.16.84 0.1.108486.3.579.2.593 1985 Unknown [id number] 2.16.84 0.1.915059.3.579.2.593 1985 Unknown [id number] 2.16.84 0.1.269383.3.579.2.593 1985 Unknown [id number] 2.16.84 0.1.847617.3.579.2.593 1985 Unknown [id number] 2.16. 840.1.989039.3.579.2.1286 1985 Unknown [id number] 2.16. 840.1.027284.3.579.2.1286 1985 Unknown [id number] 2.16. 840.1.535757.3.579.2.1286 1985 Unknown [id number] 2.16.8 40.1.702608.3.579.2.1259 1985 Unknown [id number] 2.16.8 40.1.294103.3.579.2.1259 1985 Unknown [id number] 2.16.84 0.1.330563.3.579.2.1259 1985 Unknown [id number] 2.16.84 0.1.799969.3.579.2.1259 1985 Unknown [id number] 2.16.84 0.1.828647.3.579.2.1259 1985 Unknown [id number] 2.16.84 0.1.584571.3.579.2.1259 1985 Unknown [id number] 2.16.84 0.1.667509.3.579.2.1259 1985 Unknown [id number] 2.16.84 0.1.583818.3.579.2.1259 1985 Unknown [id number] 2.16.84 0.1.668619.3.579.2.1259 1985 Unknown [id number] 2.16.84 0.1.992082.3.579.2.1259 1985 Unknown [id number] 2.16.84 0.1.092264.3.579.2.1259 1959 Self-pay 1959 Unknown [id number] Unknown [id number] 2.16.8 40.1.426875.3.579.2.531 Social History Date Type Detail Facility Unknown if ever smoked [facility] Other Start: 12-21-2022 End: 07-28-2024 Sex Assigned At [employer] Other Start: 12-21-2022 End: 10-09-2024 Tobacco smoking status WIIS Never smoked tobacco [facility] Start: 12-21-2022 [...] Healthcare Start: 05-27-2024 [facility] Start: 09-08-2024 End: 10-09-2024 Alcoholic beverage intake Ex-drinker (finding) [facility] Childcare Unknown [facility] Start: 10-20-2018 Alcohol Comment occassionally [facility] Start: 03-14-2015 Sex Female (finding) [facility] Clinical Notes 05-08-2022 to 01-22-2025 Samara Burns [...] of D&C Hx of tubal ligation Miscarriage ([facility]) ([facility]) HISTORY PAST MEDICAL HISTORY SOCIAL HISTORY Past Medical History: Diagnosis Date Abnormal uterine bleeding Depression Dysmenorrhea History of x4 History of D&C Hx of tubal ligation Miscarriage ([facility]) x2 ([facility]) x6 Social History Tobacco Use Smoking status: [...] LOW TRANSVERSE x4 PAP SMEAR 06/18/[address] DILATION & CURETTAGE DX&/THER NONOBSTETRIC TONSILLECTOMY TUBAL [...] nursing note reviewed. Exam conducted with a news anchor present. Vitals: Estimated body mass index is 30.95 kg/m as calculated from the following: Height as of 03/01/23: 5'. Weight as of this encounter: 158 lb 8 oz. BP: 130/74 Patient's last menstrual period was 05/13/2024. ASSESSMENT & PLAN ICD-10-CM 1. 36 weeks gestation of ([facility]) Z3A.36 POCT urinalysis dipstick manually resulted 2. Third trimester ([facility]) Z34.93 CULTURE, GROUP B STREP WITH SUSCEPTIBLITY [...] Norbert Vega DO documented in this encounter [facility] 01-15-2025 History of Present illness [...] LOW TRANSVERSE x4 PAP SMEAR 06/18/[address] DILATION & CURETTAGE DX&/THER NONOBSTETRIC TONSILLECTOMY TUBAL [...] Norbert Vega DO documented in this encounter [facility] 01-08-2025 History of Present illness Narrative Reason for Appointment: Patient ID: [id number] Antonio is a 39 y.o. female who [...] LOW TRANSVERSE x4 PAP SMEAR 06/18/[address] DILATION & CURETTAGE DX&/THER NONOBSTETRIC TONSILLECTOMY TUBAL [...] nursing note reviewed. Exam conducted with a news anchor present. Vitals: Estimated body mass index is [...] Norbert Vega DO documented in this encounter [facility] 12-26-2024 History of Present illness [...] Problems Diagnosis Date Noted Anxiety, generalized ([facility]) 01/15/2023 Resolved Ambulatory Problems Diagnosis Date Noted No Resolved Ambulatory Problems Past Medical History: Diagnosis Date Abnormal uterine bleeding Depression ([facility]) Dysmenorrhea History of History of D&C Hx of tubal ligation Miscarriage HISTORY PAST MEDICAL HISTORY SOCIAL HISTORY Past Medical History: Diagnosis Date Abnormal uterine bleeding Depression ([facility]) Dysmenorrhea History of x4 History of D&C [...] LOW TRANSVERSE x4 PAP SMEAR 06/18/[address] DILATION & CURETTAGE DX&/THER NONOBSTETRIC TONSILLECTOMY TUBAL [...] nursing note reviewed. Exam conducted with a news anchor present. Vitals: Estimated body mass index is [...] Norbert Vega DO documented in this encounter [facility] 12-11-2024 History of Present illness [...] Problems Diagnosis Date Noted Anxiety, generalized ([facility]) 01/15/2023 Resolved Ambulatory Problems Diagnosis Date Noted No Resolved Ambulatory Problems Past Medical History: Diagnosis Date Abnormal uterine bleeding Depression ([facility]) Dysmenorrhea History of History of D&C Hx of tubal ligation Miscarriage HISTORY PAST MEDICAL HISTORY SOCIAL HISTORY Past Medical History: Diagnosis Date Abnormal uterine bleeding Depression ([facility]) Dysmenorrhea History of x4 History of D&C [...] LOW TRANSVERSE x4 PAP SMEAR 06/18/[address] DILATION & CURETTAGE DX&/THER NONOBSTETRIC TONSILLECTOMY TUBAL [...] nursing note reviewed. Exam conducted with a news anchor present. Vitals: Estimated body mass index is [...] She presented to the OB Floor at [facility] and was monitored and then evaluated in the ED and hydrated and placed on Clindamycin. She is feeling much improved and without urinary symptoms. Documented by Samara Burns NP on behalf of: Norbert Vega DO documented in this encounter [facility] 11-27-2024 History of Present illness [...] LOW TRANSVERSE x4 PAP SMEAR 06/18/[address] DILATION & CURETTAGE DX&/THER NONOBSTETRIC TONSILLECTOMY TUBAL [...] nursing note reviewed. Exam conducted with a news anchor present. Vitals: Estimated body mass index is [...] Norbert Vega DO documented in this encounter [facility] 10-09-2024 History of Present illness [...] Yes Have you been seen here at [facility] in a previous ? No Recent ER visits or hospitalizations? No Bring blood sugar log or meter with you today? (Please bring them with you for every visit at [facility]) N/A Flu vaccine (Jun-October)? No Any [...] in the morning., Disp: , Rfl: omega 5-rhw-xwf-fish oil (Fish OiL) 300-1,000 mg capsule, Take [...] and the other consultants, we search on goCatch and all the available care everywhere epic I did review all the imaging studies of the patient available on EMR, ordered by the primary care physician and the other instructional systems design consultant HABITS: Patient activity no restrictions, diet [...] Follow-up in 4 weeks at our remote [place] office for completion of targeted anatomy. 3. Patient is low risk and can be delivered at 39 weeks gestation via repeat at her local hospital. 4. Growth ultrasound between 34-36 weeks gestation at her OB office. 5. Patient understands increased risk of uterine dehiscence due to multiple C-sections. 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 Patient does have 1 more ultrasound scheduled with us. Thank you for allowing me to participate in Jannie Antonio . If there any questions please do not hesitate to contact us. Sincerely, GEN KANG MD documented in this encounter [facility] 10-02-2024 History of Present illness Narrative Reason [...] LOW TRANSVERSE x4 PAP SMEAR 06/18/[address] DILATION & CURETTAGE DX&/THER NONOBSTETRIC TONSILLECTOMY TUBAL [...] nursing note reviewed. Exam conducted with a news anchor present. Vitals: Estimated body mass index is [...] Norbert Vega DO documented in this encounter [facility] 09-04-2024 History of Present illness [...] LOW TRANSVERSE x4 PAP SMEAR 06/18/[address] DILATION & CURETTAGE DX&/THER NONOBSTETRIC TONSILLECTOMY TUBAL [...] or undercooked meat, and stay away from [facility]. Patient has been consulted regarding any further do's and don'ts of . Patient voiced understanding and all questions and concerns were answered. Discussed with patient taken Aspirin 81mg daily and referral to [facility] for level II ultrasound. Orders Placed This Encounter Procedures US OB 14+ weeks anatomy scan Alpha fetoprotein, maternal POCT urinalysis dipstick manually resulted Follow Up: Patient is to return in 4 weeks for routine OB appointment. Documented by Rosette Short LPN on behalf of: Norbert Vega DO documented in this encounter [facility] 07-28-2024 History of Present illness [...] 11/10/10 6 lb 8 oz F CS-LTranv BOA 7 Term 04/20/08 6 lb 6 oz [...] LOW TRANSVERSE x4 PAP SMEAR 06/18/[address] DILATION & CURETTAGE DX&/THER NONOBSTETRIC TONSILLECTOMY TUBAL [...] or undercooked meat, and stay away from [facility]. Patient has also been advised to [...] Gemma Dumont LPN documented in this encounter [facility] 11-20-2022 Evaluation note Encounter Date [...] Contact dermatitis home care material was printed [employer] Other 09-30-2022 NoteEXAMINATION: US PELVIS HISTORY: Surgical procedure COMPARISON: No relevant comparison available. FINDINGS: The uterus is mildly heterogeneous in echotexture normal in size. Small amount of hypoechoic echogenicity identified within the endometrial cavity measuring 4.8 mm. Color ultrasound was not obtained IMPRESSION: Hypoechogenic endometrial cavity measuring 4.8 mm Electronically authenticated by: PEREZ DURBIN Date: 2022-05-08 18:03[facility]09-30-2022 NoteOPERATIVE NOTE OPERATION DATE: 05/08/2022 PROCEDURE: Suction D AND C. PREOPERATIVE DIAGNOSIS: 1. Suspected molar during first trimester. 2. Uterine mass approximately 4.5 cm. POSTOPERATIVE DIAGNOSIS: 1. Suspected molar during first trimester. 2. Uterine mass approximately 4.5 cm. 3. Significant large amounts of retained products. SURGEON: Norbert Vega D.O. RIVETER: None. BLOOD LOSS: 100 mL. URINE OUTPUT: [...] products of conception were removed using a 9-Moroccan suction curette tip. Excellent hemostasis was noted. The patient tolerated the procedure well. Sponge, lap, and needle counts were correct x 2. All instruments were then removed from the patient's vagina. The patient was taken to the Recovery Room in stable condition. [facility] Missed menses , unspecified gestational age Encounter for supervision of normal first in first trimester documented in this encounter [facility]* Diagnosis Second trimester state, incidental 16 weeks gestation of Need for maternal serum alpha-protein (MSAFP) screening Screening, , for anatomic survey Encounter for anatomic survey documented in this encounter [facility]* Diagnosis 20 weeks gestation of Second trimester state, incidental Diabetes mellitus screening Screening for diabetes mellitus , unspecified gestational age documented in [facility] encounter [facility]* Diagnosis Multigravida of advanced maternal age in second trimester- [facility] Diagnosis Multigravida of advanced maternal age in second trimester- Primary History of delivery affecting [facility] Diagnosis Third trimester state, [...] Surgical History D&C 2021 Hospitalization History child [employer] Other InstructionsNot on filedocumented in this encounter [facility] filed[facility] Summary Purpose Family History No Family [...] section and content) DATE CREATED AUTHOR 08/15/2020 [facility] DATE CREATED AUTHOR AUTHOR'S ORGANIZ ATION 12/22/2022 [facility] DATE CREATED AUTHOR AUTHOR'S ORGANIZ ATION 08/03/2024 [facility] DATE CREATED AUTHOR AUTHOR'S ORGANIZ ATION 10/10/2024 [facility] DATE CREATED AUTHOR AUTHOR'S ORGANIZ ATION 11/08/2024 [facility] DATE CREATED AUTHOR AUTHOR'S ORGANIZ ATION 01/24/2025 [facility] EPIC REASON FOR VISIT (unrecogniz ed section and content) Reason Comments Amenorrhea Reason Comments Routine Visit Reason Comments Advanced Maternal Age Hx C/S x4 Hx Tubal Ligation Care Teams (unrecognized sec tion and content) Shellfish Dredge Operator Relationship Specialty Start Date End Date Quoc Watts MD [address] [place] [address] PCP - General Family Medicine 12/28/22 Shellfish Dredge Operator Relationship Specialty Start Date End Date Quoc Watts MD [address] [place] [facility] [address] PCP - General Family Medicine 12/28/22 Shellfish Dredge Operator Relationship Specialty Start Date End Date Quoc Watts MD [address] [place] [facility] [address] PCP - General Family Medicine 12/28/22 Shellfish Dredge Operator Relationship Specialty Start Date End Date Quoc Watts MD [address] [place] [facility] [address] PCP - General Family Medicine 12/28/22 Shellfish Dredge Operator Relationship Specialty Start Date End Date Quoc Watts MD [address] [place] [facility] [address] PCP - General Family Medicine 12/28/22 Shellfish Dredge Operator Relationship Specialty Start Date End Date Quoc Watts MD [address] [place] [facility] [address] PCP - General Family Medicine 12/28/22 Shellfish Dredge Operator Relationship Specialty Start Date End Date Quoc Watts MD [address] [place] [facility] [address] PCP - General Family Medicine 12/28/22 Shellfish Dredge Operator Relationship Specialty Start Date End Date Quoc Watts MD PCP - General 04/04/18 Shellfish Dredge Operator Relationship Specialty Start Date End Date Quoc Watts MD [address] [place] [facility] [address] PCP - General Family Medicine 12/28/22 Shellfish Dredge Operator Relationship Specialty Start Date End Date Quoc Watts MD [address] [place] [facility] [address] PCP - General Family Medicine 12/28/22 Shellfish Dredge Operator Relationship Specialty Start Date End Date Quoc Watts MD [address] [place] [facility] [address] PCP - General Family Medicine 12/28/22 Shellfish Dredge Operator Relationship Specialty Start Date End Date Quoc Watts MD PCP - General 04/04/18 Shellfish Dredge Operator Relationship Specialty Start Date End Date Quoc Watts MD PCP - General 04/04/18 Shellfish Dredge Operator Relationship Specialty Start Date End Date Quoc Watts MD [address] [place] [facility] [address] PCP - General Family Medicine 12/28/22 Shellfish Dredge Operator Relationship Specialty Start Date End Date Quoc Watts MD [address] [place] [facility] [address] PCP - General Family Medicine 12/28/22 Shellfish Dredge Operator Relationship Specialty Start Date End Date Quoc Watts MD [address] [place] [facility] [address] PCP - General Family Medicine 12/28/22 Shellfish Dredge Operator Relationship Specialty Start Date End Date Quoc Watts MD PCP - General Family Medicine 12/28/22 Shellfish Dredge Operator Relationship Specialty Start Date End Date Quoc Watts MD [address] [place] [address] PCP - General [facility] 12/28/22 Shellfish Dredge Operator Relationship Specialty Start Date End Date Quoc Watts MD [address] [place] [address] PCP - General Family [facility] 12/28/22 FOR RECORDS PERTAINING TO PATIENTS WHO [...] BE BASED ON THE PRIMARY CLINICAL RECORDS. [facility] [employer] [facility]. provides no warranty or guarantee of the accuracy or completeness of information in this document.
[2025-01-25 10:34] VITALS: BP 125/72; PULSE 78
== END 2025-01-25 12:07 | disposition home or self-care (01) ==
LOC: US 09:29 → FBC 10:29
PROVIDERS: PCP Family Medicine; Visit Provider Obstetrics & Gynecology
DX: O09.523 Supervision of elderly multigravida, third trimester (principal); Z3A.34 34 weeks gestation of pregnancy
CPT/HCPCS: 76816; 76818

== ENCOUNTER 2025-01-26 11:56 | Outpatient (OUT) | payer MEDICAID, SELFPAY ==
--- NOTE | 2025-01-26 12:09 | US_ITS ---
[place] [id number] Patient Name: LB ANTONIO MRN: [id number] date: 1985 Sex: F Assigned Patient Location: [facility] Current Patient Location: Accession/Order Number: [id number] Exam Date: 01/26/2025 13:32 Report Date: 01/26/2025 13:34 At the request of: NORBERT WILLIS DO Procedure: US OB BPP w non-stress Biophysical profile. Reason for exam: Failure of breathing movement. COMPARISON: BPP 01/25/2025. TECHNIQUE: Transabdominal imaging of the gravid uterus was obtained. FINDINGS: Mobile Ui/Ux Designer reports a BPP of 8 out of 8. LILIANA is normal at 10.1 cm. heart rate 136 bpm. US/US OB BPP w non-stress IMPRESSION: BPP 8 out of 8. Impression dictated by: Rfaael Rashid Jr., D.O. 01/26/2025 1:34 PM Dictation Location: [place] [address] Electronically authenticated by: [id number] Y Date: 01/26/2025 13:34
[2025-01-26 12:33] VITALS: BP 123/77; PULSE 90
== END 2025-01-26 12:57 | disposition home or self-care (01) ==
LOC: US 11:56 → FBC 12:07
PROVIDERS: PCP Family Medicine; Visit Provider Obstetrics & Gynecology
DX: O09.523 Supervision of elderly multigravida, third trimester (principal); Z3A.36 36 weeks gestation of pregnancy
CPT/HCPCS: 76818

== ENCOUNTER 2025-01-29 12:13 | Outpatient (OUT) | payer MEDICAID, SELFPAY ==
[2025-01-29 12:41] VITALS: BP 123/82; PULSE 93
== END 2025-01-29 12:44 | disposition home or self-care (01) ==
LOC: FBCO 12:13 → FBC 12:15
PROVIDERS: PCP Family Medicine; Visit Provider Obstetrics & Gynecology
DX: O09.523 Supervision of elderly multigravida, third trimester (principal); Z3A.37 37 weeks gestation of pregnancy
CPT/HCPCS: 59025

== ENCOUNTER 2025-01-30 17:00 | Inpatient (IN) | payer MEDICAID, SELFPAY ==
[2025-01-30] VITALS (9 sets, daily range): BP systolic 91–135; BP diastolic 60–97; PULSE 68–78; TEMP 36.7–37.1; O2SAT 96–99
[2025-01-30 10:58] LABS: Hemoglobin 8.7 g/dL (12.0-16.0); Mean Corpuscular HGB Conc 31.1 g/dL (29.9-35.2); Mean Corpuscular Hemoglobin 22.8 pg (26.7-34.0); Mean Corpuscular Volume 73.3 fL (81.0-99.0); Mean Platelet Volume 11.7 fL (9.5-13.5); Platelet Count 157 10^3/uL (150-450); Red Blood Count 3.82 10^6/uL (4.20-5.40); Red Cell Distribution Width 15.5 % (11.0-15.0); White Blood Count 6.2 10^3/uL (4.0-11.0)
[2025-01-30 11:03] LABS: Amphetamine Screen Urine NEGATIVE (NEGATIVE); Barbiturates Screen Urine NEGATIVE (NEGATIVE); Benzodiazepines Screen Urine NEGATIVE (NEGATIVE); Buprenorphine Screen Urine NEGATIVE (NEGATIVE); Cannabinoid Screen Urine NEGATIVE (NEGATIVE); Cocaine Screen Urine NEGATIVE (NEGATIVE); Methadone Screen Urine NEGATIVE (NEGATIVE); Methamphetamines Screen Urine NEGATIVE (NEGATIVE); Opiate Screen Urine NEGATIVE (NEGATIVE); Oxycodone Screen Urine NEGATIVE (NEGATIVE); Phencyclidine Screen Urine NEGATIVE (NEGATIVE); Tricyclic Antidepressant Urine NEGATIVE (NEGATIVE)
[2025-01-30] MEDS: 0.9 % SODIUM CHLORIDE 1,000 ML 125 ML IV ×3 (11:11→18:02)
[2025-01-30] MEDS: FAMOTIDINE/PF 20 MG/2 ML VIAL IV (11:18)
[2025-01-30] MEDS: METOCLOPRAMIDE HCL 10 MG/2 ML VIAL IVP (11:20)
[2025-01-30] MEDS: CLINDAMYCIN PHOSPHATE/D5W 900 MG/50 ML PREMIX 100 MG IV ×2 (12:20→19:18)
[2025-01-30] MEDS: CITRIC ACID/SODIUM CITRATE 30 ML SOLUTION ORACIT SHOHL'S SOLN PO (12:22)
[2025-01-30] MEDS: LACTATED RINGER'S SOLUTION 1,000 ML 50 ML IV ×2 (12:52→13:10)
--- NOTE | 2025-01-30 13:36 | P.ON_ITS ---
Brief Operative Note Date of procedure: 01/30/25 Pre-op diagnosis general: iup at 37wks, iugr, previous c/s Post-op diagnosis: same as pre-op Procedure: NAME OF PROCEDURE: [ section ] PROCEDURE: Patient was taken back to the Operating Room where she was given a spinal anesthesia with Duramorph without difficulty. She was prepped and draped in the normal sterile fashion. A Pfannenstiel skin incision was then made 2 cm above the symphysis pubis and carried down to underlying rectus fascia using a Bovie. The fascia was incised in the midline and extended laterally using Tobar scissors. Two Breana clamps were placed on the superior aspect of the fascia and dissected off the underlying rectus muscles. The same was performed on the inferior aspect as well. The muscles were then in the midline. Peritoneum was identified and entered bluntly. The peritoneum was then extended superiorly and inferiorly with good visualization of the bladder. The bladder blade was inserted. A low transverse incision was made on the patient's uterus and extended laterally digitally. The was then delivered atraumatically after the bladder blade was removed in the cephalic position. The cord was clamped and cut. Cord blood was obtained. The infant was handed off to awaiting team. The patient's placenta was spontaneously delivered. The uterus was then exteriorized. The uterus was cleared of all clots and debris. The bladder blade was reinserted. The patient's uterine incision was closed using #0 Vicryl in a running lock fashion. Excellent hemostasis was assured. The uterus was then returned to the patient's abdomen. The patient's abdomen was copiously irrigated using warm saline. Peritoneal gutters were cleared of all clots and debris. Again excellent hemostasis was assured. The patient's peritoneum was closed using 3-0 Vicryl in a running fashion. The patient's fascia was closed using #0 Vicryl in a running fashion. The patient's skin was closed using 4-0 Vicryl subcuticularly. The patient tolerated the procedure well. Sponge, lap, and needle counts were correct x2. The patient was taken to the Recovery Room in stable condition. Anesthesia: spinal Surgeon: Kannan Vega Travel Director: Vee Faith Estimated blood loss (mL): 575 Pathology: other (placenta) Condition: stable Disposition: PACU
--- NOTE | 2025-01-30 13:37 | P.OBPRC_ITS ---
Procedure Plant Pathology Teacher: Vee Faith Estimated blood loss (mL): 575 Disposition: PACU Anesthesia type: Spinal
[2025-01-30] MEDS: ONDANSETRON PF 4 MG/2 ML VIAL IV (15:37)
[2025-01-30] MEDS: NALBUPHINE HCL 10 MG/ML AMPULE IV ×2 (16:02→21:35)
[2025-01-31] MEDS: ENOXAPARIN SODIUM 40 MG/0.4 ML SYRINGE SUBQ (00:42)
[2025-01-31 00:45] VITALS: BP 114/66; TEMP 36.8
[2025-01-31] MEDS: NALBUPHINE HCL 10 MG/ML AMPULE IV (04:39)
[2025-01-31 05:35] VITALS: BP 122/78; TEMP 36.4
[2025-01-31] MEDS: KETOROLAC TROMETHAMINE 30 MG/ML VIAL IVP ×2 (06:09→13:11)
[2025-01-31 07:06] LABS: Basophils Percent Auto 0.1 % (0.2-2.0); Eosinophils Percent Auto 0.3 % (0.9-7.0); Hemoglobin 7.3 g/dL (12.0-16.0); Immature Granulocytes Abs Auto 0.06 10^3/uL (0.00-0.03); Immature Granulocytes Pct Auto 0.4 % (0.0-0.5); Lymphocytes Absolute Auto 2.3 10^3/uL (1.2-3.8); Mean Corpuscular HGB Conc 30.7 g/dL (29.9-35.2); Mean Corpuscular Hemoglobin 22.9 pg (26.7-34.0); Mean Corpuscular Volume 74.6 fL (81.0-99.0); Mean Platelet Volume 12.3 fL (9.5-13.5); Monocytes Absolute Auto 0.8 10^3/uL (0.3-0.8); Monocytes Percent Auto 5.6 % (1.7-12.0); Neutrophils Absolute Auto 10.3 10^3/uL (1.4-6.5); Neutrophils Percent Auto 76.6 % (43.0-75.0); Platelet Count 163 10^3/uL (150-450); Red Blood Count 3.19 10^6/uL (4.20-5.40); Red Cell Distribution Width 15.4 % (11.0-15.0); White Blood Count 13.4 10^3/uL (4.0-11.0)
[2025-01-31 07:09] LABS: Hematocrit 23.8 % (36.0-48.0)
[2025-01-31 07:46] VITALS: BP 122/78; PULSE 78
--- NOTE | 2025-01-31 07:51 | PM.OBPN ---
OB - PN: Subj Subjective Patient comments: no complaints and pain well controlled [place] status: doing well Exam Constitutional Vital Signs, click to edit/add: Last Vital Signs Temp 97.6 F 01/31/25 05:35 Pulse 78 01/31/25 07:46 Resp 18 01/30/25 14:45 BP 122/78 01/31/25 07:46 Pulse Ox 97 01/30/25 14:45 O2 Del Method Room Air 01/31/25 05:15 Documenting provider has reviewed patient's vital signs: yes Common normals: no apparent distress Respiratory Common normals: normal respiratory effort and clear to auscultation bilaterally Cardio Common normals: regular rate and regular rhythm GI Common normals: Normal to inspection, nondistended, normoactive bowel sounds present Extremity Common normals: no clubbing, cyanosis or edema and no calf tenderness Urinary Catheter Management Urinary Catheter Management Urethral: Cath placed during this visit: no OB - PN: A/P Plan - day: 1 Plan: routine postop care Time Spent with Patient Time: Total time spent is greater than 50% in coordination of care (as documented) at patient's floor/unit and/or counseling patient: Total time spent with greater than 50% in coordination of care (as documented) at patient's floor/unit and/or counseling patient: less than 15 minutes
[2025-01-31] MEDS: ACETAMINOPHEN 500 MG TABLET 1000 MG PO (09:57)
[2025-01-31] MEDS: DOCUSATE SODIUM 100 MG CAPSULE PO (09:57)
--- NOTE | 2025-01-31 14:01 | PC.NURSE ---
Infant at breast. Parents assisted in waking baby for feed. goes to breast in football hold, latches and sucks few times and returns to sleep. Mom shown to hand express correctly, collecting multiple drops of colostrum into teaspoon. Shown to spoon fed baby expressed colostrum. takes well. Father holds baby as mom continues to express. Discussed implications of LPI with . Given hand outs for same and verbalized understanding. Mom excited to see she is able to express milk and is able to make milk.
--- NOTE | 2025-01-31 14:39 | RESP.RT ---
Done per nursing
--- NOTE | 2025-01-31 20:21 | PC.NURSE ---
Pt denies pain at this time. States feel great Family to arrive for visiting any time. Denies needs.
[2025-01-31 23:08] VITALS: BP 115/76; TEMP 36.9
[2025-02-01] MEDS: ENOXAPARIN SODIUM 40 MG/0.4 ML SYRINGE SUBQ (02:04)
[2025-02-01] MEDS: DOCUSATE SODIUM 100 MG CAPSULE PO ×2 (02:04→07:59)
[2025-02-01] MEDS: OXYCODONE HCL/ACETAMINOPHEN 5MG/325MG 2 TAB PO (06:10)
[2025-02-01 07:57] VITALS: BP 138/80; PULSE 98; TEMP 36.7
[2025-02-01] MEDS: IBUPROFEN 400 MG TABLET 800 MG PO (07:59)
--- NOTE | 2025-02-01 10:12 | P.DS_ITS ---
DS: Providers Provider Date of admission: 01/30/25 17:00 Primary care physician: Darshan Watts MD Admitting clinician: Kannan Vega Attending physician on admission: Kannan Vega Attending physician on discharge: Raudel Alvarez Discharging clinician: Raudel Alvarez Anticipated date of discharge: 02/01/25 DS: Diagnosis Discharge Diagnosis (1) Term delivered: Plan Patient is #2 doing well. Patient is very for discharge to home today. OB - DS: Summary Hospital Course Hospital Course: Uneventful hospital course Peripartum Data - Procedures: Procedures Operation Date: 01/30/25 12:00 Actual Procedure Side Surgeon p Repeat Not Applicable Kannan Vega DO Peripartum Data - Vaginal Delivery Procedures: Procedures Operation Date: 01/30/25 12:00 Actual Procedure Side Surgeon p Repeat Not Applicable Kannan Vega DO Complications complications: none Delivery method: elective section Gender: male Discharge plan: home Status at Discharge Cognitive/behavioral status at discharge: Good Functional status at discharge: independent ambulation Overall status at discharge: patient is back to baseline Time Spent with Patient Time attestation: Total time spent providing and/or coordinating discharge services: Time spent: less than 30 minutes Specific discharge activities: Routine care Exam Constitutional Vital Signs, click to edit/add: Last Vital Signs Temp 98.0 F 02/01/25 07:57 Pulse 98 H 02/01/25 07:57 Resp 16 02/01/25 08:03 BP 138/80 02/01/25 07:57 Pulse Ox 97 01/30/25 14:45 O2 Del Method Room Air 02/01/25 08:03 Documenting provider has reviewed patient's vital signs: yes Common normals: no apparent distress, average body habitus, oriented x3, no limitations, healthy appearing, alert and well nourished Orientation/consciousness: Yes awake, Yes oriented to person, Yes oriented to p lace and Yes oriented to time Chest Common normals: inspection of breasts normal Respiratory Common normals: normal respiratory effort and clear to auscultation bilaterally GI Common normals: Normal to inspection, nondistended, normoactive bowel sounds present, soft to palpation and non-tender Inspection: other (Incision is dry and clear without drainage with Steri-Strips intact.) Auscultation: normoactive bowel sounds Back & Pelvis Pelvis: other (Mild lochia rubra is present.) Extremity Common normals: normal to inspection, no calf tenderness and no pedal edema Discharge Plan Discharge Disposition: Home, Self-Care Condition: Good Assessment: Patient is postoperative day #2 status post repeat doing well Health Concerns: None Plan of Treatment: Routine postoperative and care. Patient return for follow-up in 1 week. Discharge Medications: New ibuprofen 800 mg tablet 800 mg PO Q8H PRN (Reason: pain) 14 Days Qty: 40 0RF oxycodone-acetaminophen [Percocet] 5-325 mg tablet 1 tab PO Q6H PRN (Reason: pain) 7 Days Qty: 28 0RF ibuprofen 400 mg Tablet 800 mg PO Q8H PRN (Reason: Pain) 30 Days Qty: 90 0RF simethicone [Gas Relief 80 (simethicone)] 80 mg Tablet,Chewable 80 mg PO QID PRN (Reason: Abdominal Distention) 30 Days Qty: 120 0RF Continued cholecalciferol (vitamin D3) 25 mcg (1,000 unit) capsule 25 mcg PO DAILY 30 Days Qty: 30 6RF bupropion HCl 300 mg tablet extended release 24 hr 300 mg PO DAILY 30 Days Qty: 30 0RF Discontinued Pro Fe 180 mg iron capsule 180 mg PO QDAY aspirin 81 mg capsule 81 mg PO DAILY Complete 14 mg iron- 400 mcg tablet 1 tab PO DAILY [id number] mg capsule 1 cap PO DAILY ondansetron 4 mg tablet,disintegrating 4 mg PO Q6H PRN (Reason: nausea and vomiting) Qty: 14 0RF Print Language: Welsh Forms: Delivery - Discharge, Portal Instructions Discharge Date/Time: 02/01/25 11:15
--- NOTE | 2025-02-12 19:50 | P.ON_ITS ---
Brief Operative Note Date of procedure: 02/12/25 Pre-op diagnosis general: iup at term gestation, previous c/s Post-op diagnosis: same as pre-op Procedure: NAME OF PROCEDURE: [ section ] PROCEDURE: Patient was taken back to the Operating Room where she was given a spinal anesthesia with Duramorph without difficulty. She was prepped and draped in the normal sterile fashion. A Pfannenstiel skin incision was then made 2 cm above the symphysis pubis and carried down to underlying rectus fascia using a Bovie. The fascia was incised in the midline and extended laterally using Tobar scissors. Two Breana clamps were placed on the superior aspect of the fascia and dissected off the underlying rectus muscles. The same was performed on the inferior aspect as well. The muscles were then in the midline. Peritoneum was identified and entered bluntly. The peritoneum was then extended superiorly and inferiorly with good visualization of the bladder. The bladder blade was inserted. A low transverse incision was made on the patient's uterus and extended laterally digitally. The was then delivered atraumatically after the bladder blade was removed in the cephalic position. The cord was clamped and cut. Cord blood was obtained. The was handed off to awaiting team. The patient's placenta was spontaneously delivered. The uterus was then exteriorized. The uterus was cleared of all clots and debris. The bladder blade was reinserted. The patient's uterine incision was closed using #0 Vicryl in a running lock fashion. Excellent hemostasis was assured. The uterus was then returned to the patient's abdomen. The patient's abdomen was copiously irrigated using warm saline. Peritoneal gutters were cleared of all clots and debris. Again excellent hemostasis was assured. The patient's peritoneum was closed using 3-0 Vicryl in a running fashion. The patient's fascia was closed using #0 Vicryl in a running fashion. The patient's skin was closed using 4-0 Vicryl subcuticularly. The patient tolerated the procedure well. Sponge, lap, and needle counts were correct x2. The patient was taken to the Recovery Room in stable condition. Anesthesia: spinal Surgeon: Kannan Vega Fretted Instrument Inspector: Daphne Nevarez Estimated blood loss (mL): 575 Pathology: none sent Condition: stable Disposition: PACU Urinary Catheter Management Urinary Catheter Management Urethral: Cath placed during this visit: no
--- NOTE | 2025-02-12 19:51 | PM.OBPRCCS ---
Procedure Pre-op/Post-op diagnoses: Pre-Op/Post-Op Diagnoses Operation Date: 01/30/25 12:00 <No data on this case meets the specified criteria> Procedure: Procedures Operation Date: 01/30/25 12:00 Actual Procedure Side Surgeon p Repeat Not Applicable Kannan Vega DO Band Ripsaw Operator: Daphne Nevarez Estimated blood loss (mL): 575 Disposition: PACU Anesthesia type: Spinal
== END 2025-02-01 11:15 | disposition home or self-care (01) | DRG 540 ==
PROVIDERS: Admitting Provider Obstetrics & Gynecology; PCP Family Medicine; Visit Provider Obstetrics & Gynecology
PROC: 10D00Z1 Extraction of Products of Conception, Low, Open Approach (ICD-10-PCS; CPT 59514; principal; 2025-01-30 12:00)
DX: O36.5930 Maternal care for other known or suspected poor fetal growth, third trimester, not applicable or unspecified (principal); O34.211 Maternal care for low transverse scar from previous cesarean delivery; Z3A.37 37 weeks gestation of pregnancy; Z37.0 Single live birth; Z87.440 Personal history of urinary (tract) infections; Z79.82 Long term (current) use of aspirin; O99.284 Endocrine, nutritional and metabolic diseases complicating childbirth; E78.5 Hyperlipidemia, unspecified
CPT/HCPCS: 36415; 59025; 80307; 85025; 85027; 86850; 86900; 86901; 94667; 94668; J0736; J1100; J1650; J1885; J2274; J2300; J2371; J2405; J2590; J2765; J3490

== ENCOUNTER 2025-02-05 08:18 | Outpatient (OUT) | payer MEDICAID, SELFPAY ==
--- NOTE | 2025-02-05 12:25 | PC.NURSE ---
Jannie and xuan Dempsey (6 days old) arrives for follow up. States Dr Vega just checked incision and is healing well. States taking Percocet and Motrin as needed. Baby continues to breastfeed and I think we are doing it right . Jannie with VSS and assessment WNL. States I feel pretty good . Xuan Dempsey with VSS and assessment WNL. to breast, left side is more difficult to latch so will start there. Positioning difficult for mom, assisted to better position, infant ready for latch, once positioned well, latches easily. Parents pleased that baby nursing on left side. Nursed well 17 minutes. Active nursing and swallowing noted. No Furter concerns voiced by parents. Home with baby Aware of MOMS group and to call as needed for concerns or questions.
[2025-02-05 12:26] VITALS: BP 135/82; PULSE 88; TEMP 36.7; O2SAT 98
== END 2025-02-05 08:19 | disposition home or self-care (01) ==
PROVIDERS: PCP Family Medicine; Visit Provider Obstetrics & Gynecology
DX: Z39.1 Encounter for care and examination of lactating mother (principal)